=== PATIENT | female | born 1965 | race Caucasian/White ===

== ENCOUNTER 2019-03-13 12:04 | Outpatient (CLI) | payer MEDICARE, SELFPAY ==
[2019-03-13 12:39] LABS: Basophils # 0.1 10^3/uL (0.0-0.1); Eosinophils % 0.5 %; Hematocrit 43.3 % (37.0-47.0); Hemoglobin 14.2 g/dL (11.5-15.3); Lymphocytes # 1.8 10^3/uL (0.8-4.8); Lymphocytes % 30.9 %; Mean Corpuscular HGB Conc 32.8 g/dL (30.0-36.0); Mean Corpuscular Hemoglobin 29.8 pg (28.0-34.0); Mean Corpuscular Volume 90.8 fL (81-99); Monocytes # 0.5 10^3/uL (0.2-0.9); Monocytes % 9.1 %; Neutrophils # 3.4 10^3/uL (1.8-7.7); Neutrophils % 58.3 %; Nucleated Red Blood Cells % 0 %; Platelet Count 263 10^3/cmm (130-400); Red Blood Count 4.77 10^6/uL (4.1-5.3); Red Cell Distribution Width 13.9 % (12.1-15.1); White Blood Count 5.9 10^3/uL (4.0-10.0)
== END 2019-03-13 12:05 | disposition home or self-care (01) ==
LOC: ONCMED 12:08
PROVIDERS: Family Provider Nurse Practitioner Family; Visit Provider Internal Medicine Medical Oncology
DX: D64.9 Anemia, unspecified (principal)
CPT/HCPCS: 85025

== ENCOUNTER 2019-04-09 09:20 | Outpatient (CLI) | payer MEDICARE, SELFPAY ==
[2019-04-09 10:19] LABS: Basophils # 0.1 10^3/uL (0.0-0.1); Eosinophils % 0.3 %; Hematocrit 43.2 % (37.0-47.0); Hemoglobin 14.3 g/dL (11.5-15.3); Lymphocytes # 2.1 10^3/uL (0.8-4.8); Lymphocytes % 34.9 %; Mean Corpuscular HGB Conc 33.1 g/dL (30.0-36.0); Mean Corpuscular Hemoglobin 31.1 pg (28.0-34.0); Mean Corpuscular Volume 93.9 fL (81-99); Mean Platelet Volume 11.6 fL (7.4-10.4); Monocytes # 0.6 10^3/uL (0.2-0.9); Neutrophils # 3.3 10^3/uL (1.8-7.7); Neutrophils % 53.5 %; Nucleated Red Blood Cells % 0 %; Platelet Count 255 10^3/cmm (130-400); Red Cell Distribution Width 13.9 % (12.1-15.1); White Blood Count 6.1 10^3/uL (4.0-10.0)
== END 2019-04-09 09:21 | disposition home or self-care (01) ==
LOC: ONCMED 09:22
PROVIDERS: Family Provider Nurse Practitioner Family; Visit Provider Internal Medicine Medical Oncology
DX: I78.0 Hereditary hemorrhagic telangiectasia (principal); D50.9 Iron deficiency anemia, unspecified
CPT/HCPCS: 85025

== ENCOUNTER 2019-05-03 08:43 | Outpatient (CLI) | payer MEDICARE, SELFPAY ==
--- NOTE | 2019-05-03 08:51 | CT_ITS ---
WS: [id number] CTA OF THE CHEST WITH PULMONARY EMBOLISM PROTOCOL TECHNIQUE: High-resolution contrast enhanced CTA of the chest with coronal and sagittal reformatted i mages with pulmonary embolism protocol. MIP images are also reviewed. CLINICAL INFORMATION: RE EVALUATION OF PULMONARY NODULE COMPARISON: April 13, 2018 DLP: 578.[address] scans at [facility] use at least one of these dose optimization techniques: automat ed exposure control; mA and/or kV adjustment per patient size (includes targeted exams where dose is matched to clinical indication); or iterative reconstruction. FINDINGS: Prior endovascular coil embolization left lower lobe AVM. Stable partially calcified nodule left uppe r lobe measuring 6 mm likely represents a small vascular malformation with a feeding vessel. This is unchanged. Mild chronic emphysematous changes. No mediastinal or hilar lymphadenopathy. Small esophag eal hiatal hernia. Normal caliber thoracic aorta. Proximal main pulmonary arteries are normal. No evidence for pulmonary embolus. Stable embolization of the left lower lobe AVM. Left adrenal adenoma measuring 12 mm. Hypertrophic changes thoracic spine. CT/CT angio chest PE protcl [id number] IMPRESSION: 1. No evidence for pulmonary embolus. 2. Stable postoperative changes Embolization of left lower lobe AVM. 3. Stable 6 mm partially calcified suspected vascular malformation in the left upper lobe is unchanged. Small associated feeding vessel. 4. Mild chronic emphysematous changes. No acute pulmonary infiltrates. 5. Incidental small left adrenal adenoma visualized upper abdomen measuring
[2019-05-03] MEDS: iohexol 350 mg/mL 100 mL Btl IV (09:25)
[2019-05-03 09:48] LABS: Basophils # 0.1 10^3/uL (0.0-0.1); Basophils % 1.1 %; Eosinophils % 0.4 %; Hematocrit 41.4 % (37.0-47.0); Hemoglobin 13.7 g/dL (11.5-15.3); Lymphocytes # 1.6 10^3/uL (0.8-4.8); Lymphocytes % 30.3 %; Mean Corpuscular HGB Conc 33.1 g/dL (30.0-36.0); Mean Corpuscular Hemoglobin 29.9 pg (28.0-34.0); Mean Corpuscular Volume 90.4 fL (81-99); Mean Platelet Volume 11.7 fL (7.4-10.4); Monocytes # 0.6 10^3/uL (0.2-0.9); Monocytes % 11.2 %; Neutrophils # 3.1 10^3/uL (1.8-7.7); Neutrophils % 56.8 %; Nucleated Red Blood Cells % 0 %; Platelet Count 261 10^3/cmm (130-400); Red Blood Count 4.58 10^6/uL (4.1-5.3); Red Cell Distribution Width 13.9 % (12.1-15.1); White Blood Count 5.4 10^3/uL (4.0-10.0)
[2019-05-03 10:00] LABS: Alanine Aminotransferase 42 U/L (0-33); Albumin Level 3.9 g/dL (3.5-5.2); Alkaline Phosphatase 57 IU/L (35-105); Anion Gap 12.6 (5-19); Aspartate Amino Transferase 36 U/L (0-32); Blood Urea Nitrogen 9 mg/dL (6-20); Calcium 9.3 mg/dL (8.5-10.5); Carbon Dioxide 27 mmol/L (22-29); Chloride 103 mmol/L (98-107); Ferritin 94 ng/mL (15-150); Globulin 3.2 g/dL (1.3-4.6); Glomerular Filtration Rate 74.7 mL/min (90-130); Glucose 108 mg/dL (65-115); Iron 67 ug/dL (37-145); Osmolality Calculated 283 mOsm/kg (285-295); Percent Saturation 23.1 % (20-50); Potassium 4.6 mmol/L (3.5-5.1); Sodium 138 mmol/L (136-145); Total Bilirubin 0.4 mg/dL (0.15-1.2); Total Iron Binding Capacity 289 mcg/dl; Total Protein 7.1 g/dL (6.6-8.7); Unsaturated Iron Binding 222 ug/dL (112-347)
== END 2019-05-03 08:44 | disposition home or self-care (01) ==
LOC: ONCMED 08:47
PROVIDERS: Family Provider Nurse Practitioner Family; PCP Nurse Practitioner Family; Visit Provider Internal Medicine Medical Oncology
DX: R91.8 Other nonspecific abnormal finding of lung field (principal); D50.0 Iron deficiency anemia secondary to blood loss (chronic); I78.0 Hereditary hemorrhagic telangiectasia; D35.02 Benign neoplasm of left adrenal gland
CPT/HCPCS: 36415; 71275; 80053; 82728; 83540; 83550; 85025; Q9967

== ENCOUNTER 2019-05-07 13:22 | Outpatient (CLI) | payer MEDICARE, SELFPAY ==
[2019-05-07 15:26] LABS: Thyroid Stimulating Hormone 8.58 uIU/mL (0.27-4.20); Vitamin B12 243 pg/mL (232-1245)
[2019-05-07 15:49] LABS: Free T4 Free Thyroxine 1.18 ng/dL (0.82-1.77)
--- NOTE | 2019-05-11 13:25 | ONC FU_ITS ---
Dr. Leger Patient Follow-Up Note Patient: Arlene Quach Unit #: [id number]: 1965 Dicatated By: Gilberto Leger M.D.Date of Visit:May 07, 2019 Onc Med Follow-up/Prog Note Chief Complaint: Hereditary hemorrhagic telangiectasia. 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 Her HHT was suspected at a young age, as her mother and maternal grandmother had been diagnosed with it, and she had recurrent oral bleeding and epistaxis as a child and young adult. In September 2007 she was diagnosed with bilateral thalamic stroke. Her brain MRI at that time showed, in addition to the infarcts, a right temporal AVM measuring 1.[address] in January 2008 showed a moderate sized AVM in the lower lobe of the left lung. Pulmonary angiogram in February 2008 confirmed the left lower lobe AVM as well as a probable smaller AVM in the superior segment left lower lobe. She underwent a successful coiling and embolization procedure. Her evaluation at that time also showed findings suspicious for a PFO. In June 2008 show underwent resection of the right frontotemporal AVM, and in October 2008 she underwent gamma knife surgery to the left frontal AVM. 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 Her further clinical course has been complicated by recurrent epistaxis and oral bleeding as well as episodes of rectal bleeding. In 2015 she was given parenteral iron replacement after she had become significantly anemic, hemoglobin 8.2 g. As of May 2016 her hemoglobin was normal at 15.0 g. By September of this year she was mildly anemic again. As of 02/07/2018 her hemoglobin was down to 9.2 g with hypochromic/microcytic red cell indices. Her serum iron was low at 14 mcg/dL with transferrin saturation 3.5%. Ferritin was low at 5.0 ng/mL, consistent with iron deficiency. She was then given further parenteral iron replacement with infusions of Injectafer on 02/10/2018 and 02/17/2018. It seen her initially on 03/14/2018. Her CBC at that time showed normal hemoglobin at 13.8 g with white blood cell count 9300 and platelet count 220,000. Her serum iron studies show transferrin saturation normal at 28% with ferritin 210 ng/mL. She had further evaluation with CT pulmonary angiogram on 04/13/2018. There was no evidence of pulmonary embolism. A prior endovascular coiling of a left lower lobe AVM was noted. A partially calcified 6 mm nodule in the left upper lobe appeared stable. It was noted that it could represent an additional small AVM or a granuloma. Her other medical illnesses include GERD, degenerative arthritis, and anxiety/depression. She has a history of cervical and ovarian cancer. She has a history of smoking 1 pack of cigarettes daily for more than 25 years. INTERIM HISTORY: In June 2017 she had evidence of iron deficiency with her transferrin saturation decreased to 16% and serum ferritin had declined to 36.0 ng/mL. She was given parenteral iron replacement with one infusion of Injectafer, as she was not anemic at the time. She tolerated it well. She then continued on observation/expectant management for the HHT. Surveillance CT angiogram of the chest on 05/03/2019 showed no evidence of pulmonary embolism. There were stable postoperative changes associated with embolism of the left lower lobe AVM. A 6 mm partially calcified suspected vascular malformation in the left upper lobe also appeared stable. There were mild chronic emphysematous changes. An incidental small left adrenal adenoma measured 12 mm. She is seen for a followup visit. She says she has been feeling extremely tired and that she has been dragging, but she still does all of her normal activity. She has good appetite, but she has some early satiety. She has not had fever. She does have some hot flashes and sweating, mainly at night. She has some shortness of breath with activity. She also complains that she gets short of breath when she is lying in bed on her right side. She has some cough, but not very much. She has a little pain in the right side of the chest. She is still smoking 1/2 pack of cigarettes daily. She has no GI/ complaints other than she has noticed some rectal bleeding. She has no significant joint or bone pain. Recently she has been having headaches at least 2 or 3 times a week. She has no focal neurologic symptoms. Medications: Aspirin 1 Tablet (of 81 mg) Oral daily, DOK 1 Tablet (of 100 mg) Oral PRN, Prevacid 1 Tablet (of 30 mg) Capsule Delayed Release Oral daily, TraZODone HCl 0.5 Tablet (of 50 mg) Oral at bedtime Allergies: sulfa Review of Systems: Constitutional - She feels very tired, but she is doing normal acitivities. Appetite is good and weight is stable. No fever or chills. She is having hot flashes and sweating, mainly at night. ECOG score is 0, ENMT - No sinus congestion/drainage. No mouth sores. No sore throat or difficulty swallowing, Hematologic/Lymphatic - She bruises easily, Respiratory - She is still smoking, but she is down to 1/2 pack daily. She has some shortness of breath with activity. She has a intermittent cough productive of yellow sputum. She is having some left sided pleuritic pain. No hemoptysis, Cardiovascular - No angina pain. No palpitations, Gastrointestinal - No nausea or vomiting. She has heartburn that is well controlled with medication. No diarrhea or constipation. She has been passing blood with stools, Genitourinary (F) - No dysuria or hematuria. No urinary frequency. No urgency or incontinence, Musculoskeletal - No joint or bone pain, Integumentary - No skin complications, Neurologic - She has started having frequent headaches, 2-3 times a week. No dizziness. No numbness/paresthesias or other focal neurologic symptoms, Psychiatric - No anxiety or depression. She is sleeping OK with her medication. Vital Signs: Performed on May 07, 2019 13:49 Height - 69.50 in Weight - 161.6 lbs (HIGH) BSA - 1.90 sq.m BMI - 23.52 Temperature - 97.4 F (LOW) Pulse - 69 /min Respiration - 16 /min BP - 113/66 mm(hg) O2 Sat - 97 % Pain - 0 Fatigue - 8 Physical Examination: Constitutional - She looks good generally, Eyes - Sclerae nonicteric. Conjunctivae clear, ENMT - She has multiple telangiectatic lesions on her tongue. There are no other lesions noted in the oral cavity, Hematologic/Lymphatic - No cervical, clavicular, or axillary adenopathy, Respiratory - Lungs are clear with good air movement bilaterally, Cardiovascular - Heart rhythm is regular. There is no murmur, gallop, or rub noted, Abdomen - Soft. Liver and spleen are not enlarged. There is no abdominal mass or ascites noted and there is no inguinal adenopathy, Extremities - No edema. Dorsalis pedis pulses are palpable bilaterally, Neurologic - No focal neurologic deficits noted. Lab/Imaging: Test performed on May 07, 2019 14:30 T4, Free 1.18 ng/dL TSH 8.58 uIU/mL Vitamin B12 243 pg/mL Test performed on May 03, 2019 09:39 Ferritin 94 ng/mL Iron 67 mcg/dL Sodium 138 mmol/L Iron Binding Capacity (TIBC) 289 mcg/dl Potassium 4.6 mmol/L % Iron Saturation 23.1 % Chloride 103 mmol/L CO2 27 mmol/L UIBC 222 mcg/dL Anion Gap 12.6 BUN 9 mg/dL Creatinine 0.8 mg/dL Cr Clearance (Est) 90.7200 mL/min eGFR 74.7 mL/min Glucose 108 mg/dL Calcium 9.3 mg/dL Protein, Total 7.1 g/dL Albumin 3.9 g/dL Globulin 3.2 g/dL Bilirubin, Total 0.4 mg/dL ALT (SGPT) 42 U/L AST (SGOT) 36 U/L Alkaline Phosphatase 57 IU/L WBC 5.4 10 3/uL RBC 4.58 10 6/uL HGB 13.7 g/dL HCT 41.4 % MCV 90.4 fL MCH 29.9 pg MCHC 33.1 g/dL RDW 13.9 % Platelet Count 261 10 3/cmm MPV 11.7 fL Neutrophils 3.1 10 3/uL Lymphocytes 1.6 10 3/uL Monocytes 0.6 10 3/uL Eosinophils 0.0 10 3/uL Basophils 0.1 10 3/uL Neutrophil % 56.8 % Lymphocyte % 30.3 % Monocyte % 11.2 % Eosinophil % 0.4 % Basophils % 1.1 % Impression: 1. Patient with hereditary hemorrhagic telangiectasia (HTT1). She has associated epistaxis, oral bleeding, and rectal bleeding. 2. She also has associated iron deficiency anemia. She has required parenteral iron replacement, most recently in January 2018, but she has never required transfusion. 3. She suffered bilateral thalamic stroke in September 2007. 4. She underwent embolotherapy and a coiling procedure to a left lower lobe pulmonary AVM in February 2008. 5. She underwent resection of right frontotemporal cerebral AVM in June 2008 and she underwent gamma knife surgery to a left frontal cerebral AVM in October 2008. 6. She has suspected PFO. Her other medical illnesses include: 7. GERD. 8. Degenerative arthritis. 9. History of cervical and ovarian cancer. 10. Nicotine dependence (cigarettes). 11. Anxiety/depression. As of June 2018 her transferrin saturation and serum ferritin had decreased to iron deficiency range. She was given parenteral iron replacement with a single infusion of Injectafer, as she was not anemic at the time. She did have symptomatic improvement following the iron replacement. During follow-up she has continued to have some fatigue, but she is otherwise been stable clinically. Her surveillance CT angiogram of the chest shows stable appearance of the postoperative changes associated with embolization of the left lower lobe AVM. The 6 mm partially calcified left upper lobe suspected AVM also appeared stable. Her laboratory studies show normal hemoglobin/hematocrit levels with adequate transferrin saturation. She does have mildly elevated TSH level, consistent with hypothyroidism. Plan: She remains on observation/expectant management for the HHT. She will start thyroid replacement with levothyroxine 50 mcg daily. I will recheck a TSH level in 3 months. I will just plan to see her again in 6 months. Signed By: Gilberto Leger M.D. <<Signature on File>>
== END 2019-05-07 13:23 | disposition home or self-care (01) ==
LOC: ONCMED 13:22
PROVIDERS: Family Provider Nurse Practitioner Family; PCP Nurse Practitioner Family; Visit Provider Internal Medicine Medical Oncology
DX: I78.0 Hereditary hemorrhagic telangiectasia (principal); R53.83 Other fatigue; D50.9 Iron deficiency anemia, unspecified; E03.9 Hypothyroidism, unspecified; K21.9 Gastro-esophageal reflux disease without esophagitis; M19.90 Unspecified osteoarthritis, unspecified site; F41.8 Other specified anxiety disorders; F17.210 Nicotine dependence, cigarettes, uncomplicated; D35.02 Benign neoplasm of left adrenal gland; Z79.82 Long term (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 of aspirin; Z86.73 Personal history of transient ischemic attack (TIA), and cerebral infarction without residual deficits; Z85.41 Personal history of malignant neoplasm of cervix uteri; Z85.43 Personal history of malignant neoplasm of ovary
CPT/HCPCS: 82607; 84439; 84443; 99214

== ENCOUNTER 2019-07-09 09:50 | Outpatient (CLI) | payer MEDICARE, SELFPAY ==
[2019-07-09 10:26] LABS: Basophils # 0.1 10^3/uL (0.0-0.1); Basophils % 0.9 %; Eosinophils % 0.4 %; Hematocrit 41.6 % (37.0-47.0); Hemoglobin 13.5 g/dL (11.5-15.3); Lymphocytes # 2.1 10^3/uL (0.8-4.8); Lymphocytes % 26.7 %; Mean Corpuscular HGB Conc 32.5 g/dL (30.0-36.0); Mean Corpuscular Hemoglobin 29.3 pg (28.0-34.0); Mean Corpuscular Volume 90.4 fL (81-99); Mean Platelet Volume 11.8 fL (7.4-10.4); Monocytes # 0.7 10^3/uL (0.2-0.9); Monocytes % 8.3 %; Neutrophils % 63.4 %; Nucleated Red Blood Cells % 0 %; Platelet Count 284 10^3/cmm (130-400); Red Cell Distribution Width 13.8 % (12.1-15.1); White Blood Count 7.8 10^3/uL (4.0-10.0)
[2019-07-09 10:52] LABS: Alanine Aminotransferase 29 U/L (0-33); Albumin Level 4.2 g/dL (3.5-5.2); Alkaline Phosphatase 72 IU/L (35-105); Anion Gap 15.2 (5-19); Aspartate Amino Transferase 27 U/L (0-32); Blood Urea Nitrogen 8 mg/dL (6-20); Calcium 9.6 mg/dL (8.5-10.5); Carbon Dioxide 25 mmol/L (22-29); Chloride 104 mmol/L (98-107); Globulin 3.1 g/dL (1.3-4.6); Glomerular Filtration Rate 65.2 mL/min (90-130); Glucose 158 mg/dL (65-115); Osmolality Calculated 289 mOsm/kg (285-295); Potassium 4.2 mmol/L (3.5-5.1); Sodium 140 mmol/L (136-145); Thyroid Stimulating Hormone 1.47 uIU/mL (0.27-4.20); Total Bilirubin 0.2 mg/dL (0.15-1.2); Total Protein 7.3 g/dL (6.6-8.7)
[2019-07-09 12:18] LABS: Ferritin 22 ng/mL (15-150); Iron 36 ug/dL (37-145); Percent Saturation 10.4 % (20-50); Total Iron Binding Capacity 345 mcg/dl; Unsaturated Iron Binding 309 ug/dL (112-347)
--- NOTE | 2019-07-09 16:04 | ONC FU_ITS ---
[facility] Patient Note Patient: Arlene Quach Unit #: [id number]: 1965 Dictated By: Lisa MeadeDate of Visit: July 09, 2019 Onc MED Follow-Up/Prog Note Chief Complaint: Hereditary hemorrhagic telangiectasia. 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 Her HHT was suspected at a young age, as her mother and maternal grandmother had been diagnosed with it, and she had recurrent oral bleeding and epistaxis as a child and young adult. In September 2007 she was diagnosed with bilateral thalamic stroke. Her brain MRI at that time showed, in addition to the infarcts, a right temporal AVM measuring 1.[address] in January 2008 showed a moderate sized AVM in the lower lobe of the left lung. Pulmonary angiogram in February 2008 confirmed the left lower lobe AVM as well as a probable smaller AVM in the superior segment left lower lobe. She underwent a successful coiling and embolization procedure. Her evaluation at that time also showed findings suspicious for a PFO. In June 2008 show underwent resection of the right frontotemporal AVM, and in October 2008 she underwent gamma knife surgery to the left frontal AVM. 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 Her further clinical course has been complicated by recurrent epistaxis and oral bleeding as well as episodes of rectal bleeding. In 2015 she was given parenteral iron replacement after she had become significantly anemic, hemoglobin 8.2 g. As of May 2016 her hemoglobin was normal at 15.0 g. By September of this year she was mildly anemic again. As of 02/07/2018 her hemoglobin was down to 9.2 g with hypochromic/microcytic red cell indices. Her serum iron was low at 14 mcg/dL with transferrin saturation 3.5%. Ferritin was low at 5.0 ng/mL, consistent with iron deficiency. She was then given further parenteral iron replacement with infusions of Injectafer on 02/10/2018 and 02/17/2018. Dr Leger had seen her initially on 03/14/2018. Her CBC at that time showed normal hemoglobin at 13.8 g with white blood cell count 9300 and platelet count 220,000. Her serum iron studies show transferrin saturation normal at 28% with ferritin 210 ng/mL. She had further evaluation with CT pulmonary angiogram on 04/13/2018. There was no evidence of pulmonary embolism. A prior endovascular coiling of a left lower lobe AVM was noted. A partially calcified 6 mm nodule in the left upper lobe appeared stable. It was noted that it could represent an additional small AVM or a granuloma. Her other medical illnesses include GERD, degenerative arthritis, and anxiety/depression. She has a history of cervical and ovarian cancer. She has a history of smoking 1 pack of cigarettes daily for more than 25 years. INTERIM HISTORY: In June 2017 she had evidence of iron deficiency with her transferrin saturation decreased to 16% and serum ferritin had declined to 36.0 ng/mL. She was given parenteral iron replacement with one infusion of Injectafer, as she was not anemic at the time. She tolerated it well. She then continued on observation/expectant management for the HHT. Surveillance CT angiogram of the chest on 05/03/2019 showed no evidence of pulmonary embolism. There were stable postoperative changes associated with embolism of the left lower lobe AVM. A 6 mm partially calcified suspected vascular malformation in the left upper lobe also appeared stable. There were mild chronic emphysematous changes. An incidental small left adrenal adenoma measured 12 mm. She was seen for a followup visit in April 2019. She had been feeling extremely tired and that she had been dragging. She was also having cold intolerance, She was found to be hypothyroid with a TSH of 8.58, free T4 was 1.18. Dr. Leger did start her on levothyroxine 50 mics daily. She has not had any follow-up labs since starting that. At her visit today she states she is been on levothyroxine for about a month. She states that her energy is better. She is now having more hot flashes than the cold intolerance. She states the hot messages are not intolerable she is unsure if that is due to the thyroid medication, iron deficiency or menopause. She has had seasonal allergies which she states she cannot get any relief from the ovvc-zhk-zeetpuk antihistamine such as Jeannette, Zyrtec or Claritin. States she has clear nasal drainage frequently and is making her sneeze and cough quite a bit. She is had some runny eyes but has allergy drops from her eye doctor and these are working well. She denies any new shortness of breath orthopnea. She states overall she does feel some better but is feeling that she could possibly be iron deficient once again. She is not anemic with her hemoglobin is 13.5. She denies any fever or chills. She is had no mouth sores sore throat or difficulty swallowing. She states her bowels are normal. She is had no urinary changes. She denies any bleeding or excessive bruising. Her ECOG is 0. Past Medical History: Anxiety/depression Cervical cancer Degenerative arthritis Gastroesophageal reflux disease Hereditary hemorrhagic telangiectasia (HHT1) Iron deficiency anemia Ovarian cancer Pulmonary and cerebral AVMs Suspected PFO Hypothyroidism in 2019 Bilateral thalamic and midbrain stroke in 2007 Past Surgical History: Corrective right eye surgery Open surgical procedures on both knees Left total hip arthroplasty in 2015 EGD and colonoscopy in 2012 Gamma knife surgery to left frontal AVM in 2008 Right frontotemporal AVM resection in 2008 Embolotherapy and coiling procedure to left lower lobe pulmonary AVM in 2008 Left oophorectomy for ovarian cancer in 2005 Excision of cervical cancer in 1985 Allergies: sulfa Medications: Aspirin 1 Tablet (of 81 mg) Oral daily DOK 1 Tablet (of 100 mg) Oral PRN Levothyroxine Sodium 1 Tablet (of 25 mcg) Oral daily Prevacid 1 Tablet (of 30 mg) Capsule Delayed Release Oral daily TraZODone HCl 0.5 Tablet (of 50 mg) Oral at bedtime Family History: Ms. Quach's mother at age 56. Ms. Quach's father at age 61. Ms. Quach has 2 brothers: 2 . She has 1 sister who is . Father of heart attack at age 61. Her mother at age 56 with complications of rheumatic heart disease and congestive heart failure. Her mother and her maternal grandmother reportedly had HHT, and one brother has HTT. One brother of overdose at age 48. Another brother at age 60, cause unknown to the patient. A sister at age 50 as a result of choking on food. She had multiple medical problems including diabetes, coronary artery disease, and strokes. Her only child as his son, currently age 25. She suspects he may have H TT, though his genetic testing apparently has been negative. Social History: Ms. Quach is and she is a disabled. She is a daily smoker who has smoked 1.0 pack/day for 25 years. She is an active drinker.She consumes 2 drinks/day. She has a history of smoking 1 pack of cigarettes daily for more than 25 years. She has alcohol use estimated once or twice a week. She has never been a heavy drinker. She denies use of illicit drugs. Review Of Symptoms: Constitutional Denies fevers, chills, excessive fatigue or weight loss. She states she has been having some intermittent hot flashes since starting the levothyroxine. She states she is unsure with some medication, her iron levels or possible menopause. She states she is not to the point where they are unbearable yet. Allergic/Immunologic She states she is having seasonal allergies to the point where there are making me crazy . She states that the Claritin, Zyrtec and Jeannette hyrf-inr-tfeyxnt are not working. Benadryl makes her too sleepy. Eyes Denies significant visual changes. No diplopia. No amaurosis. ENMT Denies changes in hearing, sore throat, mouth sores, difficulty or changes in swallowing ability, and/or sinus drainage. Hematologic/Lymphatic Denies easy bruising or bleeding. The patient denies any tender or palpable lymph nodes. Respiratory Denies dyspnea on exertion, chest pain, cough or hemoptysis. Denies orthopnea. Cardiovascular Denies anginal chest pain, palpitations or orthopnea. Gastrointestinal Denies nausea, vomiting, diarrhea, GI bleeding, or constipation. Denies change in bowel habits and/or stool color, no heartburn or early satiety. Genitourinary (F) No hematuria, hesitancy, incontinence, vaginal bleeding, discharge or other problems with urination. Musculoskeletal Denies joint pain, swelling or redness. No decreased range of motion. Integumentary Denies chronic rashes, inflammation, ulcerations or skin changes. Neurologic Denies headache, blurred vision, and no areas of focal weakness or numbness. Normal gait. No sensory problems. Psychiatric Denies insomnia, depression, dharmesh or mood swings. Vital Signs: Performed on July 09, 2019 11:31 Height - 69.50 in Weight - 160.8 lbs (LOW) BSA - 1.89 sq.m BMI - 23.41 Temperature - 97.3 F (LOW) Pulse - 81 /min Respiration - 17 /min BP - 125/81 mm(hg) O2 Sat - 95 % (LOW) Pain - 0,0 - Fully active, able to carry on all predisease activities without restrictions. (ECOG) Physical Examination: Constitutional Alert, oriented, no acute distress. Skin pink, warm and dry. Head Normocephalic; atraumatic. Eyes Conjunctivae and sclerae are clear and without icterus. Pupils are reactive and equal. Neck Supple without masses or thyromegaly. No jugular venous distension. Hematologic/Lymphatic No petechiae or purpura. Back/Spine Non-tender to palpation. Extremities No visible deformities, no cyanosis, clubbing or edema. Musculoskeletal No tenderness or swelling, normal range of motion without obvious weakness. Integumentary No rashes or lesions. Neurologic No sensory or motor deficits, normal cerebellar function, normal gait. Psychiatric Alert and oriented times three. Coherent speech. Verbalizes understanding of our discussions today. Laboratory:Test performed on July 09, 2019 10:10 Ferritin 22 ng/mL Iron 36 mcg/dL Sodium 140 mmol/L TSH 1.47 uIU/mL Iron Binding Capacity (TIBC) 345 mcg/dl Potassium 4.2 mmol/L % Iron Saturation 10.4 % Chloride 104 mmol/L CO2 25 mmol/L UIBC 309 mcg/dL Anion Gap 15.2 BUN 8 mg/dL Creatinine 0.9 mg/dL Cr Clearance (Est) 82.2800 mL/min eGFR 65.2 mL/min Glucose 158 mg/dL Calcium 9.6 mg/dL Protein, Total 7.3 g/dL Albumin 4.2 g/dL Globulin 3.1 g/dL Bilirubin, Total 0.2 mg/dL ALT (SGPT) 29 U/L AST (SGOT) 27 U/L Alkaline Phosphatase 72 IU/L WBC 7.8 10 3/uL RBC 4.60 10 6/uL HGB 13.5 g/dL HCT 41.6 % MCV 90.4 fL MCH 29.3 pg MCHC 32.5 g/dL RDW 13.8 % Platelet Count 284 10 3/cmm MPV 11.8 fL Neutrophils 5.0 10 3/uL Lymphocytes 2.1 10 3/uL Monocytes 0.7 10 3/uL Eosinophils 0.0 10 3/uL Basophils 0.1 10 3/uL Neutrophil % 63.4 % Lymphocyte % 26.7 % Monocyte % 8.3 % Eosinophil % 0.4 % Basophils % 0.9 % Test performed on May 07, 2019 14:30 T4, Free 1.18 ng/dL Vitamin B12 243 pg/mL Impression: 1. Patient with hereditary hemorrhagic telangiectasia (HTT1). She has associated epistaxis, oral bleeding, and rectal bleeding. 2. She also has associated iron deficiency anemia. She has required parenteral iron replacement, most recently in January 2018, but she has never required transfusion. 3. She suffered bilateral thalamic stroke in September 2007. 4. She underwent embolotherapy and a coiling procedure to a left lower lobe pulmonary AVM in February 2008. 5. She underwent resection of right frontotemporal cerebral AVM in June 2008 and she underwent gamma knife surgery to a left frontal cerebral AVM in October 2008. 6. She has suspected PFO. Her other medical illnesses include: 7. GERD. 8. Degenerative arthritis. 9. History of cervical and ovarian cancer. 10. Nicotine dependence (cigarettes). 11. Anxiety/depression. As of June 2018 her transferrin saturation and serum ferritin had decreased to iron deficiency range. She was given parenteral iron replacement with a single infusion of Injectafer, as she was not anemic at the time. She did have symptomatic improvement following the iron replacement. Ms. Hernandez was instructed to start levothyroxine after her visit in April 2019 as she was found to be hypothyroid. She has tolerated that well but has had an increase in hot flashes. She states otherwise she is feeling much better overall. She states however she does feel she could be iron deficient again. During follow-up she has continued to have some fatigue, but she is otherwise been stable clinically. Her surveillance CT angiogram of the chest shows stable appearance of the postoperative changes associated with embolization of the left lower lobe AVM. The 6 mm partially calcified left upper lobe suspected AVM also appeared stable. Her laboratory studies show normal hemoglobin/hematocrit levels with adequate transferrin saturation. She does have mildly elevated TSH level, consistent with hypothyroidism. Plan: 1. Continue observation/expectant management for the HHT. 2. Continue levothyroxine 50 mcg daily. I did tell her that over the next 2 weeks if her hot flashes are not improving that we could try decreasing the levothyroxine to 25 mics daily as she is only been on it month and her TSH dropped from 8.58-1.47 today. Normal TSH range is 0.27-4.20. 3. Iron studies were not ordered with her initial blood draw but will be added today. We will call her with those results. 4. We will call in Singulair 10 mg for seasonal allergies and let her try this. This was sent to [facility]. 5. Today's labs were reviewed in detail and discussed with Ms. Quach and a copy was given to her. WBC 7.8, hemoglobin 13.5, platelets are 84,000 ANC is 5000 potassium 4.2 creatinine 0.9 LFTs are normal. That studies were added and resulted as an iron saturation of 10.4, ferritin was 22 and iron level was 36. 6. I have asked for a PA for Injectafer possibly 2 doses. I would give her 1 dose and then possibly wait for 4 weeks as she is not anemic and recheck her again if she is still iron deficient she will need another dose of Injectafer. We will consult with Dr. Leger regarding her iron levels and the plan of administering Injectafer. She will of course need a prior authorization before we can administer the Injectafer. 7. We will plan for follow-up in 3 months with CBC CMP, TSH, free T4 and iron studies. 8. Ms. Quach was instructed to contact us in the interim should questions or problems arise. Signed By: Lisa Meade-, AOP Gilberto Leger MD <<Signature on File>>
== END 2019-07-09 09:51 | disposition home or self-care (01) ==
PROVIDERS: PCP Nurse Practitioner Family; Visit Provider Nurse Practitioner
DX: I78.0 Hereditary hemorrhagic telangiectasia (principal); D50.0 Iron deficiency anemia secondary to blood loss (chronic); R94.6 Abnormal results of thyroid function studies; K21.9 Gastro-esophageal reflux disease without esophagitis; M19.90 Unspecified osteoarthritis, unspecified site; F17.210 Nicotine dependence, cigarettes, uncomplicated; F41.8 Other specified anxiety disorders; J30.2 Other seasonal allergic rhinitis; Z79.899 Other long term (current) drug therapy; Z85.41 Personal history of malignant neoplasm of cervix uteri; Z85.43 Personal history of malignant neoplasm of ovary; Z86.73 Personal history of transient ischemic attack (TIA), and cerebral infarction without residual deficits
CPT/HCPCS: 80053; 82728; 83540; 83550; 84443; 85025; 99214

== ENCOUNTER 2019-07-18 14:48 | Outpatient (CLI) | payer MEDICARE, SELFPAY ==
[2019-07-18] MEDS: sodium chloride 0.9% (100 ml) 100 ML 75 ML (15:21)
[2019-07-18] MEDS: ferric carboxy (IVPB) 750 MG in sodium chloride 0.9% (100 ml) 100 ML 460 MG IV (15:21)
== END 2019-07-18 14:49 | disposition home or self-care (01) ==
PROVIDERS: PCP Nurse Practitioner Family; Visit Provider Internal Medicine Medical Oncology
DX: D50.0 Iron deficiency anemia secondary to blood loss (chronic) (principal); E03.9 Hypothyroidism, unspecified; I78.0 Hereditary hemorrhagic telangiectasia
CPT/HCPCS: 96365; J1439

== ENCOUNTER 2019-07-21 10:00 | Emergency (ER) | payer MEDICARE, SELFPAY ==
[2019-07-21 10:05] VITALS: BMI 22.8
[2019-07-21 10:07] VITALS: BP 135/74; PULSE 97; RESP 18; O2SAT 97
[2019-07-21 10:08] VITALS: BP 135/74; PULSE 94; RESP 16; TEMP 37.4; O2SAT 96
--- NOTE | 2019-07-21 10:09 | W.ED.GENADLT ---
HPI - General Adult General: Chief complaint: General Medical Stated complaint: cramping/chills Time Seen by Provider: 07/21/19 10:04 History of Present Illness: HPI narrative: Patient is a 54-year-old female who comes to the ED with muscle aches and migraine-like headache. Patient states that she had an iron IV infusion performed on Tuesday. Yesterday she started feeling achy and developing a headache. She describes the headache all throughout the head and rates it a 10 out of 10. She endorses some photophobia and mild nausea. She is also having some muscle aches and cramps that are predominantly in her right and left lower extremities. Patient says she does have the chills but denies any fever, cough, shortness of breath, chest pain, upper respiratory symptoms, abdominal pain, bladder or bowel symptoms. Associated symptoms: Reports headache(s) and nausea; Deny chest pain, dyspnea, rash, palpitations or vomiting Review of Systems Const: Reports: chills; Denies: fever(s) or fatigue Eyes: Reports: photophobia; Denies: change in vision or eye discomfort ENMT: Denies: throat pain, odynophagia, nasal discharge or nasal congestion Card: Denies: chest pain, palpitations, edema, swelling of feet/ankles, dyspnea on exertion or orthopnea Resp: Denies: dyspnea, productive cough or non-productive cough GI: Reports: nausea; Denies: abdominal pain, vomiting, diarrhea, constipation or hematochezia : Denies: flank pain, dysuria or hematuria Musc: Reports: muscle cramps (muscle cramps and aches in lower extremities); Denies: neck pain, back pain or extremity swelling Skin/Breast: Denies: rash or new lesions Neuro: Reports: headache(s); Denies: numbness in extremities or weakness in extremities PFS ED PFSH: Social History Smoking and tobacco status: current every day smoker Physical Exam Const: COMMON NORMALS: no acute distress, patient oriented x3 and alert GENERAL APPEARANCE: cooperative, comfortable and well hydrated HENMT: COMMON NORMALS: normocephalic HEAD & SCALP: normocephalic MOUTH: Normal oral and palatal mucosa present THROAT: posterior oropharynx normal and uvula midline Eye: COMMON NORMALS: Equal, round and reactive pupils present, EOMs intact bilaterally and conjunctivae normal CONJUNCTIVA: Yes conjunctivae normal PUPIL: Yes Equal, round and reactive pupils present Neck/C-Spine: COMMON NORMALS: supple GENERAL: Yes normal visual inspection Resp: COMMON NORMALS: normal respiratory effort, No retractions, No use of accessory muscles and clear to auscultation bilaterally AUSCULTATION: clear to auscultation bilaterally Cardio: COMMON NORMALS: regular rate, regular rhythm, S1 normal heart sound present, S2 normal heart sound present, No gallops present (Cardio), No clicks present (Cardio), No murmurs present (Cardio) and Peripheral pulses 2+ throughout RATE: regular rate RHYTHM: regular rhythm HEART SOUNDS: S1 normal heart sound present and S2 normal heart sound present PERIPHERAL PULSES: Peripheral pulses 2+ throughout GI: COMMON NORMALS: Normal to inspection, nondistended, normoactive bowel sounds present, Soft to palpation, non-tender and no masses PALPATION: Yes Soft to palpation : COMMON NORMALS: Yes no CVA tenderness BLADDER/KIDNEY EXAM: Yes no CVA tenderness Back/Pelvis: COMMON NORMALS: no CVA tenderness Extremity: COMMON NORMALS: normal to inspection and no pedal edema Neuro: COMMON NORMALS: patient oriented x3 and moves all extremities SENSORIUM/ORIENTATION: Yes alert Skin: COMMON NORMALS: no rashes or lesions noted GENERAL SKIN EXAM: no rashes or lesions noted and dry skin Course Reevaluation(s): Reevaluation #1: Patient feels a lot better after IV fluids and migraine cocktail. She is ready to go home and rest. Vital Signs: Vital signs: Vital Signs Temperature 97.9 F 07/21/19 12:06 Pulse Rate 88 07/21/19 12:06 Respiratory Rate 16 07/21/19 12:06 Blood Pressure 128/78 07/21/19 12:06 Pulse Oximetry 95 07/21/19 12:06 MDM - General Adult MDM Narrative: Medical decision making narrative: Patient is a 54-year-old female comes into the ED with headache and muscle cramps. Patient received an iron IV infusion a couple days ago. Patient states her main complaint is her 10 out of 10 headache. Headache and muscle cramps is a known side effect of iron transfusions. Patient was given IV fluids and migraine cocktail. Her symptoms greatly improved and she says she is ready to go home and rest. I told patient to set up an appointment with her PCP within the next 7 to 10 days. Patient was told to return to ED if symptoms worsen. Patient understood and agreed with plan. Discharge Plan Discharge Patient Disposition: Home, Self-Care Clinical Impression: Head ache Qualifiers: Headache type: unspecified Headache chronicity pattern: acute headache Intractability: not intractable Qualified Code(s): R51 - Headache Condition: Stable Discharge Orders: Discharge Order (Routine); Ordered 07/21/19 Ordered By: Lazaro Gonzalez Referrals: RACHELLE DICKERSON FNP [Primary Care Provider] - Discharge Diet: Regular Discharge Activity: Resume usual activity Patient Instructions: Acute Headache (ED) Activity Restrictions/Additional Instructions: Go home and rest. Follow-up with your PCP at next scheduled appointment. Return to ED for reevaluation if symptoms continue or worsen after 3 days. Drink plenty of fluids and stay hydrated. Take Tylenol or ibuprofen for pain. 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
--- NOTE | 2019-07-21 10:11 | PC.NURSE ---
COMPLAINING OF SEVERE HEADACE, ALL OVER HEAD AND GENERALIZED BODY CRAMPS
[2019-07-21] MEDS: sodium chloride 0.9% 1,000 ML 999 ML IV (11:09)
[2019-07-21] MEDS: diphenhydrAMINE 50 mg/mL SDV 1mL 25 MG IVP (11:14)
[2019-07-21] MEDS: dexamethasone 10 mg/mL INJ IVP (11:15)
[2019-07-21] MEDS: metoclopramide 5 mg/mL SDV 2 mL 10 MG IVP (11:17)
[2019-07-21] MEDS: ketorolac 30 mg/mL INJ IVP (11:18)
[2019-07-21 11:53] VITALS: BP 121/72; PULSE 76; RESP 16; O2SAT 95
[2019-07-21 12:06] VITALS: BP 128/78; PULSE 88; RESP 16; TEMP 36.6; O2SAT 95
== END 2019-07-21 12:09 | disposition home or self-care (01) ==
PROVIDERS: Emergency Provider Physician Assistant; PCP Nurse Practitioner Family
DX: R51 Headache (principal); F17.210 Nicotine dependence, cigarettes, uncomplicated
CPT/HCPCS: 12345; 96361; 96374; 96375; 99283; J1100; J1200; J1885; J2765; J7030

== ENCOUNTER 2019-07-29 16:48 | Outpatient (CLI) | payer MEDICARE, SELFPAY ==
--- NOTE | 2019-07-29 16:54 | XRR_ITS ---
PROCEDURE INFORMATION: Exam: XR Right Ribs with PA Chest, 3 Views Exam date and time: 07/29/2019 4:55 PM Age: 54 years old Clinical indication: Other: RT rib pain; Additional info: Right lower lateral rib pain TECHNIQUE: Imaging protocol: XR Right ribs 3 views with PA chest. COMPARISON: CR Chest 2 views* [id number] 10/20/2017 5:31 PM FINDINGS: Lungs: The lungs are clear. Pleural space: Unremarkable. No pleural effusion. No pneumothorax. Heart/Mediastinum: Unremarkable. No cardiomegaly. Vasculature: Vascular coils in the lower left chest. Bones/joints: Mild scoliosis. Bones are otherwise intact. XR/XR ribs RT mn 3V w CXR1V [id number] IMPRESSION: No acute finding.
== END 2019-07-29 16:49 | disposition home or self-care (01) ==
LOC: RAD 16:50
PROVIDERS: PCP Nurse Practitioner Family; Visit Provider Nurse Practitioner Family
DX: R07.81 Pleurodynia (principal)
CPT/HCPCS: 71101

== ENCOUNTER 2019-08-12 11:03 | Emergency (ER) | payer MEDICARE, SELFPAY ==
[2019-08-12 11:07] VITALS: BP 120/70; PULSE 65; RESP 18; TEMP 36.4; O2SAT 96; BMI 23.6
--- NOTE | 2019-08-12 11:10 | ED_ITS ---
HPI - Skin/Abscess/Foreign Bdy General: Chief complaint: Skin/Abscess/Foreign Body Stated complaint: SORE ON LEFT BREAST Time Seen by Provider: 08/12/19 11:10 History of Present Illness: HPI narrative: Patient noticed redness and itching to the left inferior breast area on Tuesday. Since that time patient has noted some areas of ecchymosis. Patient denies any fever or chills but does report itching. Patient appears well. Patient appears in no acute distress. MD complaint: insect bite/sting Review of Systems General: Reports: 10 or more systems reviewed and unremarkable except in HPI and below Skin/Breast: Reports: changing lesions PFS ED PFSH: Social History Smoking and tobacco status: current every day smoker Physical Exam Const: COMMON NORMALS: no acute distress and patient oriented x3 GENERAL APPEARANCE: cooperative HENMT: COMMON NORMALS: normocephalic and Normal external nose present HEAD & SCALP: normal to inspection and normocephalic NOSE: Normal external nose present MOUTH: Normal oral and palatal mucosa present THROAT: posterior oropharynx normal Eye: GENERAL EYE: appearance normal, both eyes and all related structures Neck/C-Spine: COMMON NORMALS: full ROM Lymph: LYMPHATIC: no lymphadenopathy noted Chest: COMMONS NORMALS: normal inspection of the chest Resp: COMMON NORMALS: normal respiratory effort EFFORT & INSPECTION: Yes able to speak in complete sentences Cardio: COMMON NORMALS: regular rate and regular rhythm RATE: regular rate RHYTHM: regular rhythm GI: COMMON NORMALS: non-tender Back/Pelvis: COMMON NORMALS: thoracic and lumbar spine normal to inspection Extremity: COMMON NORMALS: normal to inspection Neuro: COMMON NORMALS: patient oriented x3 and moves all extremities Psych: COMMON NORMALS: mental status grossly normal and cooperative Skin: NARRATIVE SKIN EXAM: 1 cm area of ecchymosis to the left inferior breast region. Patient has a area of redness and a concentric ring around the initial lesion approximately 4 cm in diameter. No fluctuance or induration is noted to the area. Course Vital Signs: Vital signs: Vital Signs Temperature 97.6 F 08/12/19 11:07 Pulse Rate 68 08/12/19 11:22 Respiratory Rate 16 08/12/19 11:22 Blood Pressure 102/72 08/12/19 11:22 Pulse Oximetry 95 08/12/19 11:22 MDM - Skin/Abscess/Foreign Bdy MDM Narrative: Medical decision making narrative: Patient comes in today with complaints of a area of itching and tenderness to the left breast. On exam we noted the area with a centralized lesion surrounded by ecchymosis and then by an area of redness. Respirations are even lungs are clear to auscultation. Vital signs are normal. Differential diagnosis includes but not limited to insect bite, injury, cellulitis, or abscess. Reviewed exam with patient with recomm endations for treatment and follow-up. Suspect a insect bite with some localized reaction. Will cover with doxycycline due to possible tick bite. Discharge Plan Discharge Patient Disposition: Home, Self-Care Clinical Impression: Insect bites Qualifiers: Encounter type: initial encounter Site of insect bite: breast Laterality: left Qualified Code(s): S20.162A - Insect bite (nonvenomous) of breast, left breast, initial encounter Condition: Stable Prescriptions: New doxycycline hyclate 100 mg capsule 100 mg PO BID 7 Days Qty: 14 RF: 0 No Action trazodone 50 mg tablet 50 mg PO DAILY RF: 0 lansoprazole 30 mg capsule,delayed release(DR/EC) 30 mg PO DAILY RF: 0 montelukast [Singulair] 10 mg tablet 10 mg PO DAILY RF: 0 levothyroxine 50 mcg capsule 50 mcg PO DAILY RF: 0 aspirin [Adult Aspirin Regimen] 81 mg tablet,delayed release (DR/EC) 81 mg PO DAILY RF: 0 Discharge Orders: Discharge Order (Routine); Ordered 08/12/19 Ordered By: Audie Khan Referrals: RACHELLE DICKERSON, VAT SKIMMER [Primary Care Provider] - Discharge Diet: Usual diet Discharge Activity: Increase activity as tolerated Patient Instructions: Brown Recluse Spider Bite (ED) Activity Restrictions/Additional Instructions: Avoid manipulation of the insect bite. Use hydrocortisone cream as needed for itching or discomfort. Use Tylenol or ibuprofen for pain. Drink plenty of water with antibiotic. Avoid the midday sun with the antibiotic. Follow-up with primary care in 1 week for recheck. Return to the ER for high fever or worsening symptoms. Coding Level of Care Code ED [employer] for Irma Montanez
[2019-08-12 11:22] VITALS: BP 102/72; PULSE 68; RESP 16; O2SAT 95
[2019-08-12 12:12] VITALS: BP 112/74; PULSE 57; RESP 16; O2SAT 97
== END 2019-08-12 12:14 | disposition home or self-care (01) ==
PROVIDERS: Emergency Provider Nurse Practitioner Family; PCP Nurse Practitioner Family
DX: S20.162A Insect bite (nonvenomous) of breast, left breast, initial encounter (principal); W57.XXXA Bitten or stung by nonvenomous insect and other nonvenomous arthropods, initial encounter; Z79.82 Long term (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 of aspirin; F17.210 Nicotine dependence, cigarettes, uncomplicated
CPT/HCPCS: 12345; 99283

== ENCOUNTER 2019-08-20 09:15 | Outpatient (CLI) | payer MEDICARE, SELFPAY ==
[2019-08-20 10:24] LABS: Ferritin 218 ng/mL (15-150); Iron 64 ug/dL (37-145); Percent Saturation 24.7 % (20-50); Thyroid Stimulating Hormone 1.68 uIU/mL (0.27-4.20); Total Iron Binding Capacity 259 mcg/dl; Unsaturated Iron Binding 195 ug/dL (112-347)
--- NOTE | 2019-08-23 09:12 | ONC FU_ITS ---
[facility] Patient Note Patient: Arlene Quach Unit #: [id number]: 1965 Dictated By: Lisa MeadeDate of Visit: Aug 20, 2019 Onc MED Follow-Up/Prog Note Chief Complaint: Hereditary hemorrhagic telangiectasia. 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 Her HHT was suspected at a young age, as her mother and maternal grandmother had been diagnosed with it, and she had recurrent oral bleeding and epistaxis as a child and young adult. In September 2007 she was diagnosed with bilateral thalamic stroke. Her brain MRI at that time showed, in addition to the infarcts, a right temporal AVM measuring 1.[address] in January 2008 showed a moderate sized AVM in the lower lobe of the left lung. Pulmonary angiogram in February 2008 confirmed the left lower lobe AVM as well as a probable smaller AVM in the superior segment left lower lobe. She underwent a successful coiling and embolization procedure. Her evaluation at that time also showed findings suspicious for a PFO. In June 2008 show underwent resection of the right frontotemporal AVM, and in October 2008 she underwent gamma knife surgery to the left frontal AVM. 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 Her further clinical course has been complicated by recurrent epistaxis and oral bleeding as well as episodes of rectal bleeding. In 2015 she was given parenteral iron replacement after she had become significantly anemic, hemoglobin 8.2 g. As of May 2016 her hemoglobin was normal at 15.0 g. By September of this year she was mildly anemic again. As of 02/07/2018 her hemoglobin was down to 9.2 g with hypochromic/microcytic red cell indices. Her serum iron was low at 14 mcg/dL with transferrin saturation 3.5%. Ferritin was low at 5.0 ng/mL, consistent with iron deficiency. She was then given further parenteral iron replacement with infusions of Injectafer on 02/10/2018 and 02/17/2018. Dr Leger had seen her initially on 03/14/2018. Her CBC at that time showed normal hemoglobin at 13.8 g with white blood cell count 9300 and platelet count 220,000. Her serum iron studies show transferrin saturation normal at 28% with ferritin 210 ng/mL. She had further evaluation with CT pulmonary angiogram on 04/13/2018. There was no evidence of pulmonary embolism. A prior endovascular coiling of a left lower lobe AVM was noted. A partially calcified 6 mm nodule in the left upper lobe appeared stable. It was noted that it could represent an additional small AVM or a granuloma. Her other medical illnesses include GERD, degenerative arthritis, and anxiety/depression. She has a history of cervical and ovarian cancer. She has a history of smoking 1 pack of cigarettes daily for more than 25 years. INTERIM HISTORY: In June 2017 she had evidence of iron deficiency with her transferrin saturation decreased to 16% and serum ferritin had declined to 36.0 ng/mL. She was given parenteral iron replacement with one infusion of Injectafer, as she was not anemic at the time. She tolerated it well. She then continued on observation/expectant management for the HHT. Surveillance CT angiogram of the chest on 05/03/2019 showed no evidence of pulmonary embolism. There were stable postoperative changes associated with embolism of the left lower lobe AVM. A 6 mm partially calcified suspected vascular malformation in the left upper lobe also appeared stable. There were mild chronic emphysematous changes. An incidental small left adrenal adenoma measured 12 mm. She was seen for a followup visit in April 2019. She had been feeling extremely tired and that she had been dragging. She was also having cold intolerance, She was found to be hypothyroid with a TSH of 8.58, free T4 was 1.18. Dr. Leger did start her on levothyroxine 50 mics daily. Her thyroid was corrected at her June visit with a TSH of 1.47. However she was found to be iron deficient once again with an iron saturation of 10.4%, iron level of 36. She was given 1 dose of Injectafer 750 mg. She is here today for follow-up. She states she presented to the emergency room after her last iron infusion with what she felt like was a reaction to the iron. She reported severe headache cramping chills muscle aches. She had some mild nausea and photophobia. She was given IV fluids and a migraine cocktail and was discharged home. She states she recovered with no other effects. She has had seasonal allergies which she states she cannot get any relief from the [id number] antihistamine- Claritin. We did try Singulair but no relief there either. She states she thinks it made her symptoms worse. States she has clear nasal drainage frequently and is making her sneeze and cough quite a bit. She has had some runny eyes but has allergy drops from her eye doctor and these are working well. She denies any new shortness of breath orthopnea. She states overall she does feel better. Her hot flashes have resolved at present. She denies any fever or chills. She is had no mouth sores sore throat or difficulty swallowing. She states her bowels are normal. She has had no urinary changes. She denies any bleeding or excessive bruising. Her ECOG is 0. Past Medical History: Anxiety/depression Cervical cancer Degenerative arthritis Gastroesophageal reflux disease Hereditary hemorrhagic telangiectasia (HHT1) Iron deficiency anemia Ovarian cancer Pulmonary and cerebral AVMs Suspected PFO Hypothyroidism in 2019 Bilateral thalamic and midbrain stroke in 2007 Past Surgical History: Corrective right eye surgery Open surgical procedures on both knees Left total hip arthroplasty in 2015 EGD and colonoscopy in 2012 Gamma knife surgery to left frontal AVM in 2008 Right frontotemporal AVM resection in 2008 Embolotherapy and coiling procedure to left lower lobe pulmonary AVM in 2008 Left oophorectomy for ovarian cancer in 2005 Excision of cervical cancer in 1985 Allergies: sulfa Medications: Aspirin 1 Tablet (of 81 mg) Oral daily DOK 1 Tablet (of 100 mg) Oral PRN Levothyroxine Sodium 1 Tablet (of 25 mcg) Oral daily Prevacid 1 Tablet (of 30 mg) Capsule Delayed Release Oral daily TraZODone HCl 0.5 Tablet (of 50 mg) Oral at bedtime Family History: Ms. Quach's mother at age 56. Ms. Quach's father at age 61. Ms. Quach has 2 brothers: 2 . She has 1 sister who is . Father of heart attack at age 61. Her mother at age 56 with complications of rheumatic heart disease and congestive heart failure. Her mother and her maternal grandmother reportedly had HHT, and one brother has HTT. One brother of overdose at age 48. Another brother at age 60, cause unknown to the patient. A sister at age 50 as a result of choking on food. She had multiple medical problems including diabetes, coronary artery disease, and strokes. Her only child as his son, currently age 25. She suspects he may have H TT, though his genetic testing apparently has been negative. Social History: Ms. Quach is and she is a disabled. She is a daily smoker who has smoked 1.0 pack/day for 25 years. She is an active drinker.She consumes 2 drinks/day. She has a history of smoking 1 pack of cigarettes daily for more than 25 years. She has alcohol use estimated once or twice a week. She has never been a heavy drinker. She denies use of illicit drugs. Review Of Symptoms: Constitutional Denies fevers, chills, excessive fatigue or weight loss. Hot flashes has resolved. Allergic/Immunologic She states she is having seasonal allergies to the point where there are making me crazy . She states that the Claritin and Singular are not working. Benadryl makes her too sleepy. Eyes Denies significant visual changes. No diplopia. No amaurosis. ENMT Denies changes in hearing, sore throat, mouth sores, difficulty or changes in swallowing ability, and/or sinus drainage. Hematologic/Lymphatic Denies easy bruising or bleeding. The patient denies any tender or palpable lymph nodes. Respiratory Denies dyspnea on exertion, chest pain, cough or hemoptysis. Denies orthopnea. Cardiovascular Denies anginal chest pain, palpitations or orthopnea. Gastrointestinal Denies nausea, vomiting, diarrhea, GI bleeding, or constipation. Denies change in bowel habits and/or stool color, no heartburn or early satiety. Genitourinary (F) No hematuria, hesitancy, incontinence, vaginal bleeding, discharge or other problems with urination. Musculoskeletal Denies joint pain, swelling or redness. No decreased range of motion. Integumentary Denies chronic rashes, inflammation, ulcerations or skin changes. Neurologic Denies headache, blurred vision, and no areas of focal weakness or numbness. Normal gait. No sensory problems. Psychiatric Denies insomnia, depression, dharmesh or mood swings. Vital Signs: Performed on Aug 20, 2019 11:22 Height - 69.50 in Weight - 162.0 lbs (HIGH) BSA - 1.90 sq.m BMI - 23.58 Temperature - 97.5 F (LOW) Pulse - 66 /min Respiration - 19 /min BP - 129/75 mm(hg) O2 Sat - 98 % Pain - 0,0 - Fully active, able to carry on all predisease activities without restrictions. (ECOG) Physical Examination: Constitutional Alert, oriented, no acute distress. Skin pink, warm and dry. Head Normocephalic; atraumatic. Eyes Conjunctivae and sclerae are clear and without icterus. Pupils are reactive and equal. Neck Supple without masses or thyromegaly. No jugular venous distension. Hematologic/Lymphatic No petechiae or purpura. Back/Spine Non-tender to palpation. Extremities No visible deformities, no cyanosis, clubbing or edema. Musculoskeletal No tenderness or swelling, normal range of motion without obvious weakness. Integumentary No rashes or lesions. Neurologic No sensory or motor deficits, normal cerebellar function, normal gait. Psychiatric Alert and oriented times three. Coherent speech. Verbalizes understanding of our discussions today. Laboratory:Test performed on Aug 20, 2019 09:45 Ferritin 218 ng/mL Iron 64 mcg/dL TSH 1.68 uIU/mL Iron Binding Capacity (TIBC) 259 mcg/dl % Iron Saturation 24.7 % UIBC 195 mcg/dL Test performed on July 09, 2019 10:10 Sodium 140 mmol/L Potassium 4.2 mmol/L Chloride 104 mmol/L CO2 25 mmol/L Anion Gap 15.2 BUN 8 mg/dL Creatinine 0.9 mg/dL Cr Clearance (Est) 82.2800 mL/min eGFR 65.2 mL/min Glucose 158 mg/dL Calcium 9.6 mg/dL Protein, Total 7.3 g/dL Albumin 4.2 g/dL Globulin 3.1 g/dL Bilirubin, Total 0.2 mg/dL ALT (SGPT) 29 U/L AST (SGOT) 27 U/L Alkaline Phosphatase 72 IU/L WBC 7.8 10 3/uL RBC 4.60 10 6/uL HGB 13.5 g/dL HCT 41.6 % MCV 90.4 fL MCH 29.3 pg MCHC 32.5 g/dL RDW 13.8 % Platelet Count 284 10 3/cmm MPV 11.8 fL Neutrophils 5.0 10 3/uL Lymphocytes 2.1 10 3/uL Monocytes 0.7 10 3/uL Eosinophils 0.0 10 3/uL Basophils 0.1 10 3/uL Neutrophil % 63.4 % Lymphocyte % 26.7 % Monocyte % 8.3 % Eosinophil % 0.4 % Basophils % 0.9 % Test performed on May 07, 2019 14:30 T4, Free 1.18 ng/dL Vitamin B12 243 pg/mL Impression: 1. Patient with hereditary hemorrhagic telangiectasia (HTT1). She has associated epistaxis, oral bleeding, and rectal bleeding. 2. She also has associated iron deficiency anemia. She has required parenteral iron replacement, most recently in January 2018, but she has never required transfusion. 3. She suffered bilateral thalamic stroke in September 2007. 4. She underwent embolotherapy and a coiling procedure to a left lower lobe pulmonary AVM in February 2008. 5. She underwent resection of right frontotemporal cerebral AVM in June 2008 and she underwent gamma knife surgery to a left frontal cerebral AVM in October 2008. 6. She has suspected PFO. Her other medical illnesses include: 7. GERD. 8. Degenerative arthritis. 9. History of cervical and ovarian cancer. 10. Nicotine dependence (cigarettes). 11. Anxiety/depression. As of June 2018 her transferrin saturation and serum ferritin had decreased to iron deficiency range. She was given parenteral iron replacement with a single infusion of Injectafer, as she was not anemic at the time. She did have symptomatic improvement following the iron replacement. Ms. Hernandez was instructed to start levothyroxine after her visit in April 2019 as she was found to be hypothyroid. She has tolerated that well but has had an increase in hot flashes. She states otherwise she is feeling much better overall. She states however she does feel she could be iron deficient again. During follow-up she has continued to have some fatigue, but she is otherwise been stable clinically. Her surveillance CT angiogram of the chest shows stable appearance of the postoperative changes associated with embolization of the left lower lobe AVM. The 6 mm partially calcified left upper lobe suspected AVM also appeared stable. Her laboratory studies show normal hemoglobin/hematocrit levels with adequate transferrin saturation. She did have mildly elevated TSH level, consistent with hypothyroidism. She has responded well to treatment with levothyroxine. Her last Injectafer dosing was on 07/18/2019 at which time she received one 750 mg dose. Plan: 1. Continue observation/expectant management for the HHT. 2. Continue levothyroxine 50 mcg daily. 3. She was informed of her iron study results from today. Her ferritin was 218 iron sat was 24.7 and iron was 64 all dramatically improved. Her TSH is stable at 1.68. 4. Plan for repeat labs in 2 months to include CBC CMP ferritin and iron studies as well as TSH. We will plan for follow-up again in 6 months with the same labs to be repeated. 5. I did send a prescription and to [facility] for cetirizine 10 mg daily prn seasonal allergies. She is aware that it is [id number] and her insurance may not pay for. 6. Ms. Quach was instructed to contact us in the interim should questions or problems arise. Signed By: Lisa Meade-, AOROXYP Gilberto Leger MD <<Signature on File>>
== END 2019-08-20 09:16 | disposition home or self-care (01) ==
LOC: ONCMED 09:18
PROVIDERS: PCP Nurse Practitioner Family; Visit Provider Nurse Practitioner
DX: I78.0 Hereditary hemorrhagic telangiectasia (principal); D63.8 Anemia in other chronic diseases classified elsewhere; D50.8 Other iron deficiency anemias; E03.9 Hypothyroidism, unspecified; J30.2 Other seasonal allergic rhinitis; K21.9 Gastro-esophageal reflux disease without esophagitis; M19.90 Unspecified osteoarthritis, unspecified site; F17.210 Nicotine dependence, cigarettes, uncomplicated; F41.8 Other specified anxiety disorders; Z86.73 Personal history of transient ischemic attack (TIA), and cerebral infarction without residual deficits; Z85.41 Personal history of malignant neoplasm of cervix uteri; Z85.43 Personal history of malignant neoplasm of ovary
CPT/HCPCS: 36415; 82728; 83540; 83550; 84443; 99214

== ENCOUNTER 2019-10-22 09:05 | Outpatient (CLI) | payer MEDICARE, SELFPAY ==
[2019-10-22 09:37] LABS: Basophils # 0.1 10^3/uL (0.0-0.1); Basophils % 0.8 %; Eosinophils % 0.7 %; Hematocrit 42.7 % (37.0-47.0); Hemoglobin 14.1 g/dL (11.5-15.3); Lymphocytes # 2.4 10^3/uL (0.8-4.8); Lymphocytes % 39.2 %; Mean Corpuscular Hemoglobin 30.3 pg (28.0-34.0); Mean Corpuscular Volume 91.6 fL (81-99); Mean Platelet Volume 12.1 fL (7.4-10.4); Monocytes # 0.5 10^3/uL (0.2-0.9); Monocytes % 8.7 %; Neutrophils # 3.09 10^3/uL (1.8-7.7); Neutrophils % 50.4 %; Nucleated Red Blood Cells % 0 %; Platelet Count 248 10^3/cmm (130-400); Red Blood Count 4.66 10^6/uL (4.1-5.3); Red Cell Distribution Width 14.8 % (12.1-15.1); White Blood Count 6.1 10^3/uL (4.0-10.0)
[2019-10-22 10:01] LABS: Alanine Aminotransferase 50 U/L (0-33); Albumin Level 4.1 g/dL (3.5-5.2); Alkaline Phosphatase 65 IU/L (35-105); Anion Gap 13.8 (5-19); Aspartate Amino Transferase 30 U/L (0-32); Blood Urea Nitrogen 10 mg/dL (6-20); Calcium 8.6 mg/dL (8.5-10.5); Carbon Dioxide 23 mmol/L (22-29); Chloride 105 mmol/L (98-107); Ferritin 109 ng/mL (15-150); Globulin 2.9 g/dL (1.3-4.6); Glomerular Filtration Rate 74.5 mL/min (90-130); Glucose 180 mg/dL (65-115); Iron 58 ug/dL (37-145); Osmolality Calculated 287 mOsm/kg (285-295); Percent Saturation 19.9 % (20-50); Potassium 3.8 mmol/L (3.5-5.1); Sodium 138 mmol/L (136-145); Total Bilirubin 0.2 mg/dL (0.15-1.2); Total Iron Binding Capacity 291 mcg/dl; Unsaturated Iron Binding 233 ug/dL (112-347)
[2019-10-22 10:02] LABS: Thyroid Stimulating Hormone 2.45 uIU/mL (0.27-4.20)
== END 2019-10-22 09:06 | disposition home or self-care (01) ==
LOC: ONCMED 09:10
PROVIDERS: PCP Nurse Practitioner Family; Visit Provider Nurse Practitioner
DX: I78.0 Hereditary hemorrhagic telangiectasia (principal); D50.0 Iron deficiency anemia secondary to blood loss (chronic); E03.9 Hypothyroidism, unspecified
CPT/HCPCS: 80053; 82728; 83540; 83550; 84443; 85025

== ENCOUNTER → 2019-10-25 11:00 | Outpatient (BNVA) | payer MEDICARE, SELFPAY | PROVIDERS: PCP Nurse Practitioner Family; Visit Provider Nurse Practitioner Family | DX: J06.9 Acute upper respiratory infection, unspecified (principal); Z20.828 Contact with and (suspected) exposure to other viral communicable diseases | CPT/HCPCS: 87635 ==

== ENCOUNTER 2020-02-28 10:55 | Outpatient (CLI) | payer MEDICARE, SELFPAY ==
[2020-02-28 11:41] LABS: Basophils # 0.1 10^3/uL (0.0-0.1); Basophils % 0.8 %; Eosinophils % 0.3 %; Hematocrit 42.1 % (37.0-47.0); Hemoglobin 13.5 g/dL (11.5-15.3); Lymphocytes # 2.3 10^3/uL (0.8-4.8); Lymphocytes % 31.6 %; Mean Corpuscular HGB Conc 32.1 g/dL (30.0-36.0); Mean Corpuscular Hemoglobin 28.5 pg (28.0-34.0); Mean Corpuscular Volume 88.8 fL (81-99); Mean Platelet Volume 11.9 fL (7.4-10.4); Monocytes # 0.9 10^3/uL (0.2-0.9); Monocytes % 12.4 %; Neutrophils # 3.89 10^3/uL (1.8-7.7); Neutrophils % 54.8 %; Nucleated Red Blood Cells % 0 %; Platelet Count 288 10^3/cmm (130-400); Red Blood Count 4.74 10^6/uL (4.1-5.3); White Blood Count 7.1 10^3/uL (4.0-10.0)
[2020-02-28 12:15] LABS: Alanine Aminotransferase 42 U/L (0-33); Albumin Level 4.2 g/dL (3.5-5.2); Alkaline Phosphatase 79 IU/L (35-105); Anion Gap 10.9 (5-19); Aspartate Amino Transferase 47 U/L (0-32); Blood Urea Nitrogen 10 mg/dL (6-20); Carbon Dioxide 29 mmol/L (22-29); Chloride 103 mmol/L (98-107); Ferritin 26 ng/mL (15-150); Globulin 2.9 g/dL (1.3-4.6); Glomerular Filtration Rate 57.6 mL/min (90-130); Glucose 93 mg/dL (65-115); Iron 52 ug/dL (37-145); Osmolality Calculated 287 mOsm/kg (285-295); Potassium 3.9 mmol/L (3.5-5.1); Sodium 139 mmol/L (136-145); Thyroid Stimulating Hormone 1.68 uIU/mL (0.27-4.20); Total Bilirubin 0.3 mg/dL (0.15-1.2); Total Iron Binding Capacity 400 mcg/dl; Total Protein 7.1 g/dL (6.6-8.7); Unsaturated Iron Binding 348 ug/dL (112-347)
== END 2020-02-28 10:56 | disposition home or self-care (01) ==
LOC: ONCMED 10:57
PROVIDERS: Nurse Practitioner; PCP Family Medicine Adult Medicine; Visit Provider Internal Medicine Medical Oncology
DX: I78.0 Hereditary hemorrhagic telangiectasia (principal); D50.0 Iron deficiency anemia secondary to blood loss (chronic); E03.9 Hypothyroidism, unspecified
CPT/HCPCS: 36415; 80053; 82728; 83540; 83550; 84443; 85025

== ENCOUNTER 2020-03-03 05:50 | Outpatient (CLI) | payer MEDICARE, SELFPAY ==
[2020-03-03] MEDS: ferric carboxy (IVPB) 750 MG in sodium chloride 0.9% (100 ml) 100 ML 460 MG IV (15:00)
--- NOTE | 2020-03-07 18:09 | ONC FU_ITS ---
Dr. Leger Patient Follow-Up Note Patient: Arlene Quach Unit #: [id number]: 1965 Dicatated By: Gilberto Leger M.D.Date of Visit:Mar 03, 2020 Onc Med Follow-up/Prog Note Chief Complaint: Hereditary hemorrhagic telangiectasia. 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 Her HHT was suspected at a young age, as her mother and maternal grandmother had been diagnosed with it, and she had recurrent oral bleeding and epistaxis as a child and young adult. In September 2007 she was diagnosed with bilateral thalamic stroke. Her brain MRI at that time showed, in addition to the infarcts, a right temporal AVM measuring 1.[address] in January 2008 showed a moderate sized AVM in the lower lobe of the left lung. Pulmonary angiogram in February 2008 confirmed the left lower lobe AVM as well as a probable smaller AVM in the superior segment left lower lobe. She underwent a successful coiling and embolization procedure. Her evaluation at that time also showed findings suspicious for a PFO. In June 2008 show underwent resection of the right frontotemporal AVM, and in October 2008 she underwent gamma knife surgery to the left frontal AVM. 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 Her further clinical course has been complicated by recurrent epistaxis and oral bleeding as well as episodes of rectal bleeding. In 2015 she was given parenteral iron replacement after she had become significantly anemic, hemoglobin 8.2 g. As of May 2016 her hemoglobin was normal at 15.0 g. By September of this year she was mildly anemic again. As of 02/07/2018 her hemoglobin was down to 9.2 g with hypochromic/microcytic red cell indices. Her serum iron was low at 14 mcg/dL with transferrin saturation 3.5%. Ferritin was low at 5.0 ng/mL, consistent with iron deficiency. She was then given further parenteral iron replacement with infusions of Injectafer on 02/10/2018 and 02/17/2018. It seen her initially on 03/14/2018. Her CBC at that time showed normal hemoglobin at 13.8 g with white blood cell count 9300 and platelet count 220,000. Her serum iron studies show transferrin saturation normal at 28% with ferritin 210 ng/mL. She had further evaluation with CT pulmonary angiogram on 04/13/2018. There was no evidence of pulmonary embolism. A prior endovascular coiling of a left lower lobe AVM was noted. A partially calcified 6 mm nodule in the left upper lobe appeared stable. It was noted that it could represent an additional small AVM or a granuloma. Her other medical illnesses include GERD, degenerative arthritis, and anxiety/depression. She has a history of cervical and ovarian cancer. She has a history of smoking 1 pack of cigarettes daily for more than 25 years. INTERIM HISTORY: In June 2017 she had evidence of iron deficiency with her transferrin saturation decreased to 16% and serum ferritin had declined to 36.0 ng/mL. She was given parenteral iron replacement with one infusion of Injectafer, as she was not anemic at the time. She tolerated it well. She then continued on observation/expectant management for the HHT. Surveillance CT angiogram of the chest on 05/03/2019 showed no evidence of pulmonary embolism. There were stable postoperative changes associated with embolism of the left lower lobe AVM. A 6 mm partially calcified suspected vascular malformation in the left upper lobe also appeared stable. There were mild chronic emphysematous changes. An incidental small left adrenal adenoma measured 12 mm. She is seen for a followup visit. She has been feeling pretty good generally. She does report having some fatigue. Her ECOG score is 1. She complains that she has lost appetite, but she has gained weight. She has not had fever or night sweats, but she sometimes feels hot or cold at night. She complains that her ears have been popping. She does not have cough. She sometimes has shortness of breath. She is still smoking 1/2 pack of cigarettes daily. She sometimes has chest pain. She has some constipation. She has no other GI or complaints. She has some joint pain and she also reports having charley horses. Lately she has had some headaches. She has no focal neurologic symptoms. Medications: Aspirin 1 Tablet (of 81 mg) Oral daily, DOK 1 Tablet (of 100 mg) Oral PRN, Levothyroxine Sodium 1 Tablet (of 25 mcg) Oral daily, Prevacid 1 Tablet (of 30 mg) Capsule Delayed Release Oral daily, TraZODone HCl 0.5 Tablet (of 50 mg) Oral at bedtime Allergies: sulfa Vital Signs: Performed on Mar 03, 2020 14:06 Height - 69.50 in Weight - 168.6 lbs (HIGH) BSA - 1.93 sq.m BMI - 24.54 Temperature - 97.1 F (LOW) Pulse - 79 /min Respiration - 16 /min BP - 118/74 mm(hg) O2 Sat - 98 % Pain - 0 Physical Examination: Constitutional - She looks good generally, Eyes - Sclerae nonicteric. Conjunctivae clear, ENMT - She has multiple telangiectatic lesions on her tongue. There are no other lesions noted in the oral cavity, Hematologic/Lymphatic - No cervical, clavicular, or axillary adenopathy, Respiratory - Lungs are clear with good air movement bilaterally, Cardiovascular - Heart rhythm is regular. There is no murmur, gallop, or rub noted, Abdomen - Soft. Liver and spleen are not enlarged. There is no abdominal mass or ascites noted and there is no inguinal adenopathy, Extremities - No edema, Neurologic - No focal neurologic deficits noted. Lab/Imaging: CBC shows hemoglobin 13.5 g, white blood cell count 7100, and platelet count 288,000. Comprehensive metabolic profile is unremarkable except for slightly elevated liver enzymes with SGOT 42 and SGPT 47 U/L. The serum iron studies show transferrin saturation 13% with ferritin low at 26 ng/mL, consistent with iron deficiency. Historic Problem List: 1. Hereditary hemorrhagic telangiectasia (HTT1). She has associated epistaxis, oral bleeding, and rectal bleeding. 2. She has had associated iron deficiency anemia. She has required parenteral iron replacement. 3. She suffered bilateral thalamic stroke in September 2007. 4. She underwent embolotherapy and a coiling procedure to a left lower lobe pulmonary AVM in February 2008. 5. She underwent resection of right frontotemporal cerebral AVM in June 2008 and she underwent gamma knife surgery to a left frontal cerebral AVM in October 2008. 6. She has suspected PFO. Her other medical illnesses include: 7. GERD. 8. Degenerative arthritis. 9. History of cervical and ovarian cancer. 10. Nicotine dependence (cigarettes). 11. Anxiety/depression. Problems Addressed with this Encounter and Plan: 1. Hereditary hemorrhagic telangiectasia (HTT1). She has had associated epistaxis, oral bleeding, and rectal bleeding. She remains on observation/expectant management. She is due for surveillance CT pulmonary angiogram in April 2020. 2. She has had associated iron deficiency anemia, for which she has required parenteral iron replacement. She is currently not anemic, she does have significant fatigue, and her serum iron studies and ferritin are consistent with iron deficiency. As such, she will be given parenteral iron replacement with a single infusion of Injectafer. She will be scheduled for a follow-up visit in 6 months. Signed By: Gilberto Leger M.D. <<Signature on File>>
== END 2020-03-03 05:51 | disposition home or self-care (01) ==
LOC: ONCMED 05:53
PROVIDERS: PCP Family Medicine Adult Medicine; Visit Provider Internal Medicine Medical Oncology
DX: I78.0 Hereditary hemorrhagic telangiectasia (principal); D50.0 Iron deficiency anemia secondary to blood loss (chronic); Z86.73 Personal history of transient ischemic attack (TIA), and cerebral infarction without residual deficits
CPT/HCPCS: 96365; 99214; J1439

== ENCOUNTER → 2020-03-06 09:58 | Outpatient (BNVA) | payer MEDICARE, SELFPAY | PROVIDERS: PCP Family Medicine Adult Medicine; Visit Provider Nurse Practitioner Family | DX: Z20.828 Contact with and (suspected) exposure to other viral communicable diseases (principal); J06.9 Acute upper respiratory infection, unspecified | CPT/HCPCS: 87635 ==

== ENCOUNTER 2020-05-24 07:49 | Emergency (ER) | payer MEDICARE, SELFPAY ==
[2020-05-24 07:50] VITALS: BP 135/72; PULSE 73; RESP 18; TEMP 36.5; O2SAT 97; BMI 22.1
--- NOTE | 2020-05-24 07:58 | XRR_ITS ---
PROCEDURE INFORMATION: Exam: XR Chest Exam date and time: 05/24/2020 8:27 AM Age: 54 years old Clinical indication: Shortness of breath; Prior surgery; Surgery type: Lung; Additional info: SOB TECHNIQUE: Imaging protocol: XR of the chest Views: 1 view. COMPARISON: CR XR ribs RT mn 3V w CXR1V [id number] 07/29/2019 4:54 PM FINDINGS: Lungs: See Vasculature finding. Pleural spaces: Unremarkable. No pleural effusion. No pneumothorax. Heart/Mediastinum: Stable cardiomediastinal silhouette. Vasculature: Metallic coils are again seen projecting over the left lower lung. No focal consolidation identified. Bones/joints: Unremarkable. XR/XR chest 1V portable [id number] IMPRESSION: No evidence of active cardiopulmonary disease.
--- NOTE | 2020-05-24 07:59 | ECG_ITS ---
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 Measurements Intervals [place] Rate: 66 P: 49 WV: 182 QRS: 62 QRSD: 91 T: 62 QT: 383 QTc: 403 Interpretive Statements SINUS RHYTHM LOW QRS VOLTAGE IN PRECORDIAL LEADS [QRS DEFLECTION < 1.0 mV IN CHEST LEADS] Compared to ECG 08/05/2015 10:58:15 No significant changes Electronically Signed On 05-24-2020 20:23:24 CDT by Amber Martini M.D. [id number]
--- NOTE | 2020-05-24 08:13 | CTR_ITS ---
PROCEDURE INFORMATION: Exam: CTA Chest With Contrast Exam date and time: 05/24/2020 8:48 AM Age: 54 years old Clinical indication: Other: Gi bleed; Shortness of breath; Prior surgery; Surgery type: Lung; Additional info: SOB, pfo, gib TECHNIQUE: Imaging protocol: Computed tomographic angiography of the chest with contrast. 3D rendering (Not supervised by radiologist): MIP and/or 3D reconstructed images were created by the technologist. Radiation optimization: All CT scans at this facility use at least one of these dose optimization techniques: automated exposure control; mA and/or kV adjustment per patient size (includes targeted exams where dose is matched to clinical indication); or iterative reconstruction. Contrast material: OMNI 350; Contrast volume: 95 ml; Contrast route: INTRAVENOUS (IV); COMPARISON: CT angio chest PE protcl [id number] 05/03/2019 9:37 AM RADIATION DOSE METRICS: Total DLP (mGy-cm): 1463.03 FINDINGS: Pulmonary arteries: Normal. No pulmonary emboli. Aorta: Unremarkable. No aortic aneurysm. No aortic dissection. Lungs: No consolidation. Metallic coils are again seen in the left lower lung. Small AV malformations are noted along the central aspect of the left upper lobe, superolateral aspect of the left lower lobe, and posterosuperior aspect of the right lower lobe Pleural spaces: Unremarkable. No pneumothorax. No pleural effusion. Heart: Normal heart size. Coronary atherosclerotic calcifications seen. No pericardial effusion. Lymph nodes: Unremarkable. No enlarged lymph nodes. Bones/joints: Unremarkable. No acute fracture. Soft tissues: Unremarkable. IMPRESSION: 1. No pulmonary embolus or other acute pathology in the chest. 2. Small bilateral pulmonary AV malformations. PROCEDURE INFORMATION: Exam: CT Abdomen And Pelvis With Contrast Exam date and time: 05/24/2020 8:48 AM Age: 54 years old Clinical indication: Other: Gi bleed; Shortness of breath; Prior surgery; Surgery type: Lung; Additional info: SOB, pfo, gib TECHNIQUE: Imaging protocol: Computed tomography of the abdomen and pelvis with contrast. Radiation optimization: All CT scans at this facility use at least one of these dose optimization techniques: automated exposure control; mA and/or kV adjustment per patient size (includes targeted exams where dose is matched to clinical indication); or iterative reconstruction. Contrast material: OMNI 350; Contrast volume: 95 ml; Contrast route: INTRAVENOUS (IV); COMPARISON: CT angio chest PE protcl [id number] 05/03/2019 9:37 AM RADIATION DOSE METRICS: Total DLP (mGy-cm): 1463.03 FINDINGS: Liver: Tiny calcified granulomas are noted in the liver. The liver is otherwise unremarkable. Gallbladder and bile ducts: Normal. No calcified stones. No ductal dilation. Pancreas: Normal. No ductal dilation. Spleen: A tiny calcified granuloma is noted in the spleen. The spleen is otherwise unremarkable. Adrenal glands: Unchanged 1.5 cm hypodense lesion in the left adrenal gland, likely representing an adenoma. The right adrenal gland is unremarkable. Kidneys and ureters: Unchanged incompletely characterized hypodense lesions are again seen in both kidneys. No hydronephrosis or nephrolithiasis. Stomach and bowel: There is diverticulosis without evidence of diverticulitis. Appendix: No evidence of appendicitis. Intraperitoneal space: Unremarkable. No free air. No significant fluid collection. Vasculature: Mild diffuse atherosclerotic disease is present. Lymph nodes: Unremarkable. No enlarged lymph nodes. Urinary bladder: Unremarkable as visualized. Reproductive: Unremarkable as visualized. Bones/joints: The patient is status post left total hip arthroplasty. Unchanged mild loss of height of T10. Degenerative changes of the spine seen. Soft tissues: A small fat containing umbilical hernia is present. CT/CT angio chest w abd pel w con IMPRESSION: No acute intra-abdominal or intrapelvic pathology. Radiation Dose CTDIVOL = (mGy): DLP = 1463.03~1463.03 (mGy-cm)
--- NOTE | 2020-05-24 08:27 | ED_ITS ---
HPI - GI Bleed General: Chief complaint: GI Bleed Stated complaint: Anal Bleeding Time Seen by Provider: 05/24/20 07:57 Source: patient Mode of arrival: ambulatory Limitations: no limitations History of Present Illness: HPI Narrative: 54-year-old female patient presents to the emergency department with 2-week onset of rectal bleeding. She states bleeding has been minimal, has dealt with it at home. She states this morning went to have a bowel movement with large amount of bright red bleeding that occurred from her rectum. She states it appeared as someone was murdered in her bathroom. She denies nausea vomiting diarrhea, states bowel movement was normal. She denies constipation. She denies abdominal pain but does state discomfort in her lower rectal area. She has history of GI bleeding, similar cases in the past, several colonoscopies have been completed with cautery of the lower colon due to bleeding, cautery was completed along with colonoscopy as at [facility]. Last cautery completed approximately 2 years ago. 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 She also has patent PFO that is small. She remains on aspirin 81 mg daily due to history of CVA. She reports chest pain with shortness of breath x2 weeks, occurred at onset of GI symptoms. She reports smoker's cough, denies change of sputum or increased congestion. She states chest pain occurs in the middle of her chest and comes and goes. Rates pain as 5/10 when occurs, denies chest pain upon exam. She has Petr filter for PE/DVT. She reports last ate yesterday in the evening, has not had anything to eat or drink this morning. She denies fever or chills. She reports wearing a pad, states bleeding has stopped but needs to be checked out. complaint: blood on toilet paper and gross hematochezia Onset (ago): week(s) (2) Pain Consistency: intermittent Severity: moderate Relieving factors: bowel movement Exacerbating factors: none Context: history of GI bleed, hemorrhoids and anticoagulant use Associated symptoms: Denies abdominal pain, chills, easy bruising, fever(s), headache(s), nausea, rash or vomiting Treatments Prior to Arrival: none Review of Systems General: Reports: 10 or more systems reviewed and unremarkable except in HPI and below Const: Denies: fever(s), chills or diaphoresis Eyes: Denies: blurry vision or eye redness ENMT: Denies: throat pain, dental pain or disequilibrium Card: Denies: chest pain, palpitations or irregular heart rhythm Resp: Denies: dyspnea, productive cough, non-productive cough or wheezing GI: Reports: rectal pain, change in stool character and hematochezia; Denies: abdominal pain, nausea, vomiting, hematemesis, heartburn, diarrhea, constipation, bloating, GI cramping, belching or pain on defecation : Denies: difficulty voiding or dysuria Musc: Denies: neck pain, back pain, joint pain, joint warmth, joint stiffness or muscle weakness Skin/Breast: Denies: rash, pruritus, erythema, skin tenderness or changes in skin color Neuro: Denies: headache(s), weakness in extremities or behavioral changes Psych: Denies: anxiety or depression Zi/Lymph: Denies: easy bruising PFSH ED PFSH: Medical History Anemia Diarrhea in adult patient GERD (gastroesophageal reflux disease) HHT (hereditary hemorrhagic telangiectasia) Hypothyroid Surgical History History of eye surgery History of hip surgery History of knee surgery Hx of brain surgery Hx of removal of ovary Social History Smoking and tobacco status: current every day smoker Physical Exam Const: COMMON NORMALS: no acute distress, patient oriented x3, healthy appearing and alert GENERAL APPEARANCE: cooperative, comfortable and well hydrated HENMT: COMMON NORMALS: normocephalic, Normal external nose present and moist oral mucous membranes HEAD & SCALP: normocephalic NOSE: Normal external nose present Eye: COMMON NORMALS: Equal, round and reactive pupils present and EOMs intact bilaterally GENERAL EYE: appearance normal, both eyes and all related structures PUPIL: Yes Equal, round and reactive pupils present Neck/C-Spine: COMMON NORMALS: full ROM, no lymphadenopathy and supple GENERAL: Yes normal visual inspection and Yes trachea midline CERVICAL SPINE: Yes cervical ROM normal Lymph: LYMPHATIC: no lymphadenopathy noted Chest: COMMONS NORMALS: normal inspection of the chest and normal palpation of entire chest wall Resp: COMMON NORMALS: normal respiratory effort, No retractions and No use of accessory muscles EFFORT & INSPECTION: No labored and No audible wheezes AUSCULTATION: diminished lung sounds bilateral in the lower lung flanagan Cardio: COMMON NORMALS: regular rate, regular rhythm, S1 normal heart sound present, S2 normal heart sound present and Peripheral pulses 2+ throughout RATE: regular rate RHYTHM: regular rhythm HEART SOUNDS: S1 normal heart sound present and S2 normal heart sound present PERIPHERAL PULSES: Peripheral pulses 2+ throughout GI: COMMON NORMALS: Normal to inspection, nondistended, normoactive bowel sounds present, Soft to palpation and non-tender INSPECTION: Yes normal to inspection, No abdominal wall ecchymosis, No abdominal distension, No central obesity and No Laceration(s) present (GI) PALPATION: Yes Soft to palpation RECTAL EXAM: normal sphincter tone, heme positive stool, External hemorrhoid(s) present, No Internal hemorrhoid(s) present, hemorrhoids External hemorrhoid(s): Yes Internal hemorrhoid(s): No, No Fistula present (GI), no laceration(s) noted and no tenderness noted : COMMON NORMALS: Yes no CVA tenderness BLADDER/KIDNEY EXAM: Yes no CVA tenderness Back/Pelvis: COMMON NORMALS: no CVA tenderness and thoracic and lumbar spine normal to inspection Extremity: COMMON NORMALS: normal to inspection, full ROM, capillary refill normal and no pedal edema GENERAL: Yes normal exam except as noted Neuro: COMMON NORMALS: patient oriented x3 and no focal motor deficits SENSORIUM/ORIENTATION: Yes alert Psych: COMMON NORMALS: mental status grossly normal, Normal thought process present, cooperative, normal affect, speech normal and activity/motor behavior normal ACTIVITY/MOTOR BEHAVIOR: Yes appropriate eye contact SPEECH: Yes normal speech THOUGHT PROCESS: Normal thought process present Skin: COMMON NORMALS: no rashes or lesions noted, no wounds, turgor normal, no petechiae and no mottling GENERAL SKIN EXAM: no rashes or lesions noted, elasticity normal and turgor normal Course ED course: 54-year-old female patient with HHT presents to the emergency department with rectal bleeding x2 weeks, worsening symptoms this morning. She did not complain of abdominal pain but did complain of rectal discomfort. External hemorrhoids were appreciated on exam; internal exam did not reveal abnormalities with exception of positive guaiac stool. CT abdomen and pelvis did not reveal acute abnormalities such as lesion or bleeding. Patient did complain of chest pain since onset of symptoms; she has history of Petr filter placement; CTA of the chest did not reveal pulmonary embolism or acute abnormalities. Troponin was normal, EKG revealed sinus rhythm without ST depression or elevation, ventricular rate was 66. Hemoglobin normal, no leukocytosis; chemistry unremarkable, lipase 25. Spoke with Dr. Gregg who will see patient on Tuesday at 2:15 PM, she will more than likely need colonoscopy with possible cautery. Advised to stop aspirin due to bleeding, this was discussed with the patient she is aware of stroke risk that can occur as well as bleeding that can continue to occur if she resumes aspirin. She agrees to see Dr. Gregg. Agrees to return to the emergency department if she develops worsening symptoms such as weakness increased bleeding or abdominal pain. Consultations: Consultation #1: Dr. Gregg, surgeon, history of present illness, clinical findings and clinical history of colonoscopies with needed cauterization discussed. Advised patient experienced rectal bleeding this morning and again when she was in the ED. CT scan abdomen and pelvis with IV contrast did not reveal colon lesion or active bleeding. Hemoglobin stable, vital signs were stable, lipase 25. He advised for patient to follow-up in his office Tuesday at 2:15 PM, advised to stop aspirin as she is actively bleeding, aware there is a stroke history. Time: 10:35 Vital Signs: Vital signs: Vital Signs Temperature 97.7 F 05/24/20 07:50 Pulse Rate 59 L 05/24/20 10:55 Respiratory Rate 14 05/24/20 10:55 Blood Pressure 121/67 05/24/20 10:55 Pulse Oximetry 98 05/24/20 10:55 MDM - GI Bleed Lab Data: Labs: Lab Results 05/24/20 05/24/20 05/24/20 Range/Units 08:00 08:00 08:00 WBC 5.8 (4.0-10.0) 10^3/ uL RBC 4.45 (4.1-5.3) 10^6/u L Hgb 13.0 (11.5-15.3) g/dL Hct 40.3 (37.0-47.0) % MCV 90.6 (81-99) fL MCH 29.2 (28.0-34.0) pg MCHC 32.3 (30.0-36.0) g/dL RDW 15.9 H (12.1-15.1) % Plt Count 242 (130-400) 10^3/c mm MPV 12.3 H (7.4-10.4) fL Neut % (Auto) 49.7 % Lymph % (Auto) 34.9 % [place] % (Auto) 11.8 % Eos % (Auto) 1.9 % Baso % (Auto) 1.4 % Neut # (Auto) 2.90 (1.8-7.7) 10^3/u L Lymph # (Auto) 2.0 (0.8-4.8) 10^3/u L [place] # (Auto) 0.7 (0.2-0.9) 10^3/u L Eos # (Auto) 0.1 (0.0-0.8) 10^3/u L Baso # (Auto) 0.1 (0.0-0.1) 10^3/u L Nucleated RBC % (a uto) 0 % Nucleated RBCs # 0.0 /100WBC Sodium 142 (136-145) mmol/L Potassium 4.5 (3.5-5.1) mmol/L Chloride 108 H (98-107) mmol/L Carbon Dioxide 26 (22-29) mmol/L Anion Gap 12.5 (5-19) BUN 11 (6-20) mg/dL Creatinine 0.7 (0.5-0.9) mg/dL GFR Calculation 86.9 L (90-130) mL/min Glucose 109 (65-115) mg/dL Calculated Osmolal ity 294 (285-295) mOsm/k g Lactate 1.0 (0.5-2.2) mmol/L Calcium 8.7 (8.5-10.5) mg/dL Total Bilirubin 0.2 (0.15-1.2) mg/dL AST 44 H (0-32) U/L ALT 58 H (0-33) U/L Alkaline Phosphata se 99 (35-105) IU/L Troponin T Baselin e (0-10) ng/L Troponin T 120 Min [place] (0-10) ng/L Delta Troponin T (0-10) ABS# Total Protein 6.6 (6.6-8.7) g/dL Albumin 3.9 (3.5-5.2) g/dL Globulin 2.7 (1.3-4.6) g/dL Lipase 25 (13-60) U/L Urine Color (Yellow) Urine Appearance (CLEAR) Urine pH (5-7) Ur Specific Gravit y (1.005-1.030) Urine Protein (Negative) Urine Glucose (UA) (Normal) Urine Ketones (Negative) Urine Blood (Negative) Urine Nitrate (Negative) Urine Bilirubin (Negative) Urine Urobilinogen (Negative) mg/dL Ur Leukocyte Zuleyma ase (Negative) Nasal/Oral COVID-1 9 PCR SARS-CoV-2 Ag (Rap id) (Negative) Blood Type Rho(D) Type Antibody Screen 05/24/20 05/24/20 05/24/20 Range/Units 08:00 08:30 08:30 WBC (4.0-10.0) 10^3/ uL RBC (4.1-5.3) 10^6/u L Hgb (11.5-15.3) g/dL Hct (37.0-47.0) % MCV (81-99) fL MCH (28.0-34.0) pg MCHC (30.0-36.0) g/dL RDW (12.1-15.1) % Plt Count (130-400) 10^3/c mm MPV (7.4-10.4) fL Neut % (Auto) % Lymph % (Auto) % [place] % (Auto) % Eos % (Auto) % Baso % (Auto) % Neut # (Auto) (1.8-7.7) 10^3/u L Lymph # (Auto) (0.8-4.8) 10^3/u L [place] # (Auto) (0.2-0.9) 10^3/u L Eos # (Auto) (0.0-0.8) 10^3/u L Baso # (Auto) (0.0-0.1) 10^3/u L Nucleated RBC % (a uto) % Nucleated RBCs # /100WBC Sodium (136-145) mmol/L Potassium (3.5-5.1) mmol/L Chloride (98-107) mmol/L Carbon Dioxide (22-29) mmol/L Anion Gap (5-19) BUN (6-20) mg/dL Creatinine (0.5-0.9) mg/dL GFR Calculation (90-130) mL/min Glucose (65-115) mg/dL Calculated Osmolal ity (285-295) mOsm/k g Lactate (0.5-2.2) mmol/L Calcium (8.5-10.5) mg/dL Total Bilirubin (0.15-1.2) mg/dL AST (0-32) U/L ALT (0-33) U/L Alkaline Phosphata se (35-105) IU/L Troponin T Baselin e 6 (0-10) ng/L Troponin T 120 Min [place] (0-10) ng/L Delta Troponin T (0-10) ABS# Total Protein (6.6-8.7) g/dL Albumin (3.5-5.2) g/dL Globulin (1.3-4.6) g/dL Lipase (13-60) U/L Urine Color (Yellow) Urine Appearance (CLEAR) Urine pH (5-7) Ur Specific Gravit y (1.005-1.030) Urine Protein (Negative) Urine Glucose (UA) (Normal) Urine Ketones (Negative) Urine Blood (Negative) Urine Nitrate (Negative) Urine Bilirubin (Negative) Urine Urobilinogen (Negative) mg/dL Ur Leukocyte Zuleyma ase (Negative) Nasal/Oral COVID-1 9 PCR Cancelled SARS-CoV-2 Ag (Rap id) (Negative) Blood Type O Negative Rho(D) Type Negative / 0 Antibody Screen Negative 05/24/20 05/24/20 05/24/20 Range/Units 08:30 09:46 10:04 WBC (4.0-10.0) 10^3/ uL RBC (4.1-5.3) 10^6/u L Hgb (11.5-15.3) g/dL Hct (37.0-47.0) % MCV (81-99) fL MCH (28.0-34.0) pg MCHC (30.0-36.0) g/dL RDW (12.1-15.1) % Plt Count (130-400) 10^3/c mm MPV (7.4-10.4) fL Neut % (Auto) % Lymph % (Auto) % [place] % (Auto) % Eos % (Auto) % Baso % (Auto) % Neut # (Auto) (1.8-7.7) 10^3/u L Lymph # (Auto) (0.8-4.8) 10^3/u L [place] # (Auto) (0.2-0.9) 10^3/u L Eos # (Auto) (0.0-0.8) 10^3/u L Baso # (Auto) (0.0-0.1) 10^3/u L Nucleated RBC % (a uto) % Nucleated RBCs # /100WBC Sodium (136-145) mmol/L Potassium (3.5-5.1) mmol/L Chloride (98-107) mmol/L Carbon Dioxide (22-29) mmol/L Anion Gap (5-19) BUN (6-20) mg/dL Creatinine (0.5-0.9) mg/dL GFR Calculation (90-130) mL/min Glucose (65-115) mg/dL Calculated Osmolal ity (285-295) mOsm/k g Lactate (0.5-2.2) mmol/L Calcium (8.5-10.5) mg/dL Total Bilirubin (0.15-1.2) mg/dL AST (0-32) U/L ALT (0-33) U/L Alkaline Phosphata se (35-105) IU/L Troponin T Baselin e (0-10) ng/L Troponin T 120 Min [place] 6.00 (0-10) ng/L Delta Troponin T 0 (0-10) ABS# Total Protein (6.6-8.7) g/dL Albumin (3.5-5.2) g/dL Globulin (1.3-4.6) g/dL Lipase (13-60) U/L Urine Color Straw (Yellow) Urine Appearance Clear (CLEAR) Urine pH 7 (5-7) Ur Specific Gravit y 1.005 (1.005-1.030) Urine Protein Neg (Negative) Urine Glucose (UA) Norm (Normal) Urine Ketones Negative (Negative) Urine Blood Neg (Negative) Urine Nitrate Negative (Negative) Urine Bilirubin 1+ H (Negative) Urine Urobilinogen Norm (Negative) mg/dL Ur Leukocyte Zuleyma ase Negative (Negative) Nasal/Oral COVID-1 9 PCR SARS-CoV-2 Ag (Rap id) Negative (Negative) Blood Type Rho(D) Type Antibody Screen Imaging Data^: CXR: Radiologist's impression: [facility] [address] [place] [id number] XRay Report Signed Patient: Arlene Quachit #: [id number] : 1965Acct#:[id number] Age/Sex: 54 / FADM Date: 05/24/20 Loc: ERRoom/Bed: Attending Dr: Ordering Provider/Ordering MD: Zainab Dixon Date of Service: 05/24/20 Procedure(s): XR chest 1V portable [id number] Accession Number(s): [id number] Report Number: [id number] PROCEDURE INFORMATION: Exam: XR Chest Exam date and time: 05/24/2020 8:27 AM Age: 54 years old Clinical indication: Shortness of breath; Prior surgery; Surgery type: Lung; Additional info: SOB TECHNIQUE: Imaging protocol: XR of the chest Views: 1 view. COMPARISON: CR XR ribs RT mn 3V w CXR1V [id number] 07/29/2019 4:54 PM FINDINGS: Lungs: See Vasculature finding. Pleural spaces: Unremarkable. No pleural effusion. No pneumothorax. Heart/Mediastinum: Stable cardiomediastinal silhouette. Vasculature: Metallic coils are again seen projecting over the left lower lung. No focal consolidation identified. Bones/joints: Unremarkable. XR/XR chest 1V portable [id number] IMPRESSION: No evidence of active cardiopulmonary disease. Dictated By:Jay Carter Signed By:Anette Carter Date/Time:05/24/20934 DD/ CT Abd/Pel: Radiologist's impression: [facility] [address] [place] [address] Scan Report Signed Patient: Arlene Quach Unit #: [id number] : 1965 Age/Sex: 54 / F ADM Date: 05/24/20 Loc: ER Room/Bed: Attending Dr: Ordering Provider/Ordering MD: Zainab Dixon Date of Service: 05/24/20 Procedure(s): CT angio chest w abd pel w con Accession Number(s): [id number] Report Number: [id number] PROCEDURE INFORMATION: Exam: CTA Chest With Contrast Exam date and time: 05/24/2020 8:48 AM Age: 54 years old Clinical indication: Other: Gi bleed; Shortness of breath; Prior surgery; Surgery type: Lung; Additional info: SOB, pfo, gib TECHNIQUE: Imaging protocol: Computed tomographic angiography of the chest with contrast. 3D rendering (Not supervised by radiologist): MIP and/or 3D reconstructed images were created by the technologist. Radiation optimization: All CT scans at this facility use at least one of these dose optimization techniques: automated exposure control; mA and/or kV adjustment per patient size (includes targeted exams where dose is matched to clinical indication); or iterative reconstruction. Contrast material: OMNI 350; Contrast volume: 95 ml; Contrast route: INTRAVENOUS (IV); COMPARISON: CT angio chest PE protcl [id number] 05/03/2019 9:37 AM RADIATION DOSE METRICS: Total DLP (mGy-cm): 1463.03 FINDINGS: Pulmonary arteries: Normal. No pulmonary emboli. Aorta: Unremarkable. No aortic aneurysm. No aortic dissection. Lungs: No consolidation. Metallic coils are again seen in the left lower lung. Small AV malformations are noted along the central aspect of the left upper lobe, superolateral aspect of the left lower lobe, and posterosuperior aspect of the right lower lobe Pleural spaces: Unremarkable. No pneumothorax. No pleural effusion. Heart: Normal heart size. Coronary atherosclerotic calcifications seen. No pericardial effusion. Lymph nodes: Unremarkable. No enlarged lymph nodes. Bones/joints: Unremarkable. No acute fracture. Soft tissues: Unremarkable. IMPRESSION: 1. No pulmonary embolus or other acute pathology in the chest. 2. Small bilateral pulmonary AV malformations. PROCEDURE INFORMATION: Exam: CT Abdomen And Pelvis With Contrast Exam date and time: 05/24/2020 8:48 AM Age: 54 years old Clinical indication: Other: Gi bleed; Shortness of breath; Prior surgery; Surgery type: Lung; Additional info: SOB, pfo, gib TECHNIQUE: Imaging protocol: Computed tomography of the abdomen and pelvis with contrast. Radiation optimization: All CT scans at this facility use at least one of these dose optimization techniques: automated exposure control; mA and/or kV adjustment per patient size (includes targeted exams where dose is matched to clinical indication); or iterative reconstruction. Contrast material: OMNI 350; Contrast volume: 95 ml; Contrast route: INTRAVENOUS (IV); COMPARISON: CT angio chest PE protcl [id number] 05/03/2019 9:37 AM RADIATION DOSE METRICS: Total DLP (mGy-cm): 1463.03 FINDINGS: Liver: Tiny calcified granulomas are noted in the liver. The liver is otherwise unremarkable. Gallbladder and bile ducts: Normal. No calcified stones. No ductal dilation. Pancreas: Normal. No ductal dilation. Spleen: A tiny calcified granuloma is noted in the spleen. The spleen is otherwise unremarkable. Adrenal glands: Unchanged 1.5 cm hypodense lesion in the left adrenal gland, likely representing an adenoma. The right adrenal gland is unremarkable. Kidneys and ureters: Unchanged incompletely characterized hypodense lesions are again seen in both kidneys. No hydronephrosis or nephrolithiasis. Stomach and bowel: There is diverticulosis without evidence of diverticulitis. Appendix: No evidence of appendicitis. Intraperitoneal space: Unremarkable. No free air. No significant fluid collection. Vasculature: Mild diffuse atherosclerotic disease is present. Lymph nodes: Unremarkable. No enlarged lymph nodes. Urinary bladder: Unremarkable as visualized. Reproductive: Unremarkable as visualized. Bones/joints: The patient is status post left total hip arthroplasty. Unchanged mild loss of height of T10. Degenerative changes of the spine seen. Soft tissues: A small fat containing umbilical hernia is present. CT/CT angio chest w abd pel w con IMPRESSION: No acute intra-abdominal or intrapelvic pathology. Radiation Dose CTDIVOL = (mGy): DLP = 1463.03 1463.03 (mGy-cm) Dictated By: Jay Carter Signed By: Jay Carter Signed Date/Time: 05/24/20953 DD/ 2 Discharge Plan Discharge Patient Disposition: Home Clinical Impression: Bright red rectal bleeding, Hereditary hemorrhagic telangiectasia Condition: Stable Prescriptions: Discontinued aspirin [Adult Aspirin Regimen] 81 mg tablet,delayed release (DR/EC) 81 mg PO DAILY RF: 0 No Action trazodone 50 mg tablet 50 mg PO DAILY RF: 0 lansoprazole 30 mg capsule,delayed release(DR/EC) 30 mg PO DAILY RF: 0 montelukast [Singulair] 10 mg tablet 10 mg PO DAILY RF: 0 levothyroxine 50 mcg capsule 25 mcg PO DAILY RF: 0 Discharge Orders: Discharge ED (Routine); Ordered 05/24/20 Ordered By: Zainab Dixon Referrals: Aguila Castro MD [Primary Care Provider] - Discharge Diet: GI Soft Discharge Activity: Resume usual activity Patient Instructions: Rectal Bleeding (ED), Opioid Safety Activity Restrictions/Additional Instructions: Continue lansoprazole 30 mg daily as prescribed by your primary care provider, this will help protect her stomach Return to the emergency department if you develop increased rectal bleeding, dizziness or feeling faint or if you develop nausea vomiting fever or chills. Follow-up with Dr. Gregg on 05/26/2020 at 2:15 PM for evaluation, recommended to stop your aspirin since you are actively bleeding. Push fluids to remain hydrated, soft foods to stool is easier to pass Coding Level of Care Code ED Dry Cleaner Presser for Chg Fwd Exam Comprehensive
[2020-05-24 08:42] LABS: Basophils # 0.1 10^3/uL (0.0-0.1); Basophils % 1.4 %; Eosinophils # 0.1 10^3/uL (0.0-0.8); Eosinophils % 1.9 %; Hematocrit 40.3 % (37.0-47.0); Lymphocytes % 34.9 %; Mean Corpuscular HGB Conc 32.3 g/dL (30.0-36.0); Mean Corpuscular Hemoglobin 29.2 pg (28.0-34.0); Mean Corpuscular Volume 90.6 fL (81-99); Mean Platelet Volume 12.3 fL (7.4-10.4); Monocytes # 0.7 10^3/uL (0.2-0.9); Monocytes % 11.8 %; Neutrophils % 49.7 %; Nucleated Red Blood Cells % 0 %; Platelet Count 242 10^3/cmm (130-400); Red Blood Count 4.45 10^6/uL (4.1-5.3); Red Cell Distribution Width 15.9 % (12.1-15.1); White Blood Count 5.8 10^3/uL (4.0-10.0)
[2020-05-24] MEDS: lactated ringers 1,000 ML 150 ML IV (08:47)
[2020-05-24] MEDS: iohexol 350 mg/mL 100 mL Btl IV (09:03)
[2020-05-24 09:08] LABS: Alanine Aminotransferase 58 U/L (0-33); Albumin Level 3.9 g/dL (3.5-5.2); Alkaline Phosphatase 99 IU/L (35-105); Anion Gap 12.5 (5-19); Aspartate Amino Transferase 44 U/L (0-32); Blood Urea Nitrogen 11 mg/dL (6-20); Calcium 8.7 mg/dL (8.5-10.5); Carbon Dioxide 26 mmol/L (22-29); Chloride 108 mmol/L (98-107); Globulin 2.7 g/dL (1.3-4.6); Glomerular Filtration Rate 86.9 mL/min (90-130); Glucose 109 mg/dL (65-115); Lipase 25 U/L (13-60); Osmolality Calculated 294 mOsm/kg (285-295); Potassium 4.5 mmol/L (3.5-5.1); Sodium 142 mmol/L (136-145); Total Bilirubin 0.2 mg/dL (0.15-1.2); Total Protein 6.6 g/dL (6.6-8.7)
[2020-05-24 09:09] LABS: SARS Covid-2 Antigen Negative (Negative)
[2020-05-24 09:10] VITALS: BP 110/89; PULSE 80; RESP 13; O2SAT 96
[2020-05-24 09:10] LABS: Troponin(5th) Baseline 6 ng/L (0-10)
[2020-05-24] MEDS: pantoprazole DR 40 mg Tablet PO (09:17)
[2020-05-24 09:30] VITALS: PULSE 64
[2020-05-24 09:48] VITALS: BP 138/73; PULSE 60; RESP 17; O2SAT 98
[2020-05-24 09:56] LABS: Add Urine Microscopic? NO
[2020-05-24 10:00] VITALS: BP 121/67; PULSE 54; RESP 18; O2SAT 98
[2020-05-24 10:08] LABS: Bilirubin Urine 1+ (Negative); Blood Urine Neg (Negative); Glucose Urine UA Norm (Normal); Ketones Urine Negative (Negative); Leukocyte Esterase Urine Negative (Negative); Nitrate Urine Negative (Negative); Protein Urine Neg (Negative); Specific Gravity, Urine 1.005 (1.005-1.030); Urine Appearance Clear (CLEAR); Urine Color Straw (Yellow); Urobilinogen Urine Norm (Negative); pH Urine 7 (5-7)
--- NOTE | 2020-05-24 10:34 | PC.NURSE ---
pt heart rate has been low 60's, however when pt falls asleep or is very relaxed, heart rate drops into 50's. pt is asymptomatic and upon waking heart rate returns to baseline
[2020-05-24 10:39] LABS: Troponin 5 2HR Delta 0 ABS# (0-10)
[2020-05-24 10:55] VITALS: BP 121/67; PULSE 59; RESP 14; O2SAT 98
[2020-05-25 16:42] LABS: Quest SARS-CoV-2 RNA NOT DETECTED (NOT DETECTED)
--- NOTE | 2020-05-26 13:11 | PC.NURSE ---
notified pt of negative covid result by phone
== END 2020-05-24 10:56 | disposition home or self-care (01) ==
PROVIDERS: Emergency Provider Nurse Practitioner Family; PCP Family Medicine Adult Medicine
DX: K62.5 Hemorrhage of anus and rectum (principal); I78.0 Hereditary hemorrhagic telangiectasia; Z79.82 Long term (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 of aspirin; F17.210 Nicotine dependence, cigarettes, uncomplicated
CPT/HCPCS: 71045; 71275; 74177; 80053; 81003; 83605; 83690; 84484; 85025; 86850; 86900; 87426; 87635; 93005; 96360; 96361; 99284; Q9967

== ENCOUNTER → 2020-05-29 12:00 | Outpatient (BNVA) | payer MEDICARE, SELFPAY | PROVIDERS: PCP Family Medicine Adult Medicine; Visit Provider Surgery | DX: K62.5 Hemorrhage of anus and rectum (principal); R13.10 Dysphagia, unspecified | CPT/HCPCS: 87635 ==

== ENCOUNTER 2020-06-03 10:08 | Day surgery (SDC) | payer MEDICARE, SELFPAY ==
[2020-06-02 11:29] VITALS: BMI 22.1
--- NOTE | 2020-06-03 11:07 | ANES.PREANE2 ---
Pre-Anesthetic Assessment Pre-Anesthetic Assessment: Height/Weight: Height 1.75 m Weight 68.039 kg Preop Diagnosis: panendoscopy Proposed Procedure: Operation Date: 06/03/20 11:15 Proposed Procedures p EGD with balloon dilation 91312 [id number] R13.10 k62.5(Not Applicable) - Benjamín Gregg MD s Colonoscopy(Not Applicable) - Benjamín Gregg MD Was Beta Tiff taken within 24 hours: N/A Was Clonidine taken within 24 hours: N/A Social: Social History: Tobacco and No alcohol Exam: Pre-Anes Outpt Exam: alert, oriented x 3, clear to auscultation bilaterally and regular rate & rhythm Airway: Submandibular: WNL Cervical ROM: WNL MP: 2 Pulmonary: Pulmonary: COPD, HEARD and SOB CV/HEM: CV/HEM: DVT : : None reported Hepatic: Hepatic: None reported GI: GI: GERD Metabolic: Metabolic: Thyroid Musc/skel: Musc/skel: OA/DJD Neuropsych: Neuropsych: None reported Anesthetic Plan: ASA status: 3 Anesthesia: MAC PFSH Anesthesia PFSH: Medical History (Updated 06/01/20 @ 00:01 by ) Anemia CVA (cerebral vascular accident) GERD (gastroesophageal reflux disease) HHT (hereditary hemorrhagic telangiectasia) Hypothyroid Surgical History (Updated 05/26/20 @ 14:26 by Benjamín Gregg MD) History of colonoscopy 2014 History of eye surgery History of hip surgery History of knee surgery History of lung surgery 2008 Hx of brain surgery Hx of removal of ovary Social History Smoking and tobacco status: current every day smoker Data Anesthesia Cardiac Studies: No Data to Display
[2020-06-03 11:20] VITALS: BP 149/84; PULSE 81; RESP 18; TEMP 37.1; O2SAT 96
[2020-06-03] MEDS: sodium chloride 0.9% 1,000 ML 30 ML IV (11:27)
[2020-06-03] MEDS: ondansetron 2 mg/ML SDV 2 mL 4 MG IVP (11:29)
--- NOTE | 2020-06-03 11:35 | W.PM.OPSUD ---
Surgery/Procedure H&P Update DATE OF PROCEDURE: June 03, 2020 DATE H&P PERFORMED: 05/26/20 H&P UPDATE INFORMATION: I have reviewed H&P completed within last 30 days, I have examined patient prior to procedure and No changes to prior documentation PREOP DIAGNOSIS: panendoscopy PLANNED PROCEDURE: Operation Date: 06/03/20 11:15 Proposed Procedures p EGD with balloon dilation 31652 [id number] R13.10 k62.5(Not Applicable) - Benjamín Gregg MD s Colonoscopy(Not Applicable) - Benjamín Gregg MD
[2020-06-03 12:48] VITALS: BP 117/81; PULSE 70; RESP 16; TEMP 36.1; O2SAT 97
[2020-06-03 12:54] VITALS: BP 117/60; PULSE 68; RESP 18; O2SAT 95
--- NOTE | 2020-06-03 13:54 | ANE.PACU2 ---
Inpatient post-anesthesia follow up: Airway intact: Yes Vital signs: Temperature 97.0 F Pulse Rate 68 Respiratory Rate 18 Blood Pressure 117/60 Pulse Oximetry 95 Oxygen Delivery Me thod Room Air Oxygen Flow Rate 2 Fraction of Inspir ed Oxygen Hydration adequate: Yes Nausea and vomiting: No Pain level: 2 Mental status: Baseline
== END 2020-06-03 13:25 | disposition home or self-care (01) ==
PROVIDERS: PCP Family Medicine Adult Medicine; Visit Provider Surgery
PROC: 0DJD8ZZ Inspection of Lower Intestinal Tract, Via Natural or Artificial Opening Endoscopic (ICD-10-PCS; CPT 45378; 2020-06-03 11:15)
PROC: 0DJ08ZZ Inspection of Upper Intestinal Tract, Via Natural or Artificial Opening Endoscopic (ICD-10-PCS; CPT 43235; 2020-06-03 11:15)
DX: K62.5 Hemorrhage of anus and rectum (principal); R13.10 Dysphagia, unspecified; K64.8 Other hemorrhoids; Z86.73 Personal history of transient ischemic attack (TIA), and cerebral infarction without residual deficits; K21.9 Gastro-esophageal reflux disease without esophagitis; E03.9 Hypothyroidism, unspecified; J44.9 Chronic obstructive pulmonary disease, unspecified; Z86.718 Personal history of other venous thrombosis and embolism; M19.90 Unspecified osteoarthritis, unspecified site; F17.210 Nicotine dependence, cigarettes, uncomplicated; I78.1 Nevus, non-neoplastic
CPT/HCPCS: 43250; 45378; 96361; 96374; J2405; J2704; J3490; J7030

== ENCOUNTER 2020-06-27 10:36 | Outpatient (CLI) | payer MEDICARE, SELFPAY ==
[2020-06-27 10:58] LABS: Basophils # 0.1 10^3/uL (0.0-0.1); Basophils % 1.3 %; Eosinophils % 0.4 %; Hemoglobin 12.4 g/dL (11.5-15.3); Mean Corpuscular HGB Conc 32.6 g/dL (30.0-36.0); Mean Corpuscular Volume 85.8 fL (81-99); Mean Platelet Volume 11.5 fL (7.4-10.4); Monocytes # 0.6 10^3/uL (0.2-0.9); Monocytes % 10.4 %; Neutrophils # 2.94 10^3/uL (1.8-7.7); Neutrophils % 52.7 %; Nucleated Red Blood Cells % 0 %; Platelet Count 283 10^3/cmm (130-400); Red Blood Count 4.43 10^6/uL (4.1-5.3); Red Cell Distribution Width 14.4 % (12.1-15.1); White Blood Count 5.6 10^3/uL (4.0-10.0)
[2020-06-27 11:16] LABS: Alanine Aminotransferase 37 U/L (0-33); Alkaline Phosphatase 72 IU/L (35-105); Aspartate Amino Transferase 34 U/L (0-32); Blood Urea Nitrogen 7 mg/dL (6-20); Calcium 8.4 mg/dL (8.5-10.5); Carbon Dioxide 26 mmol/L (22-29); Chloride 104 mmol/L (98-107); Ferritin 16 ng/mL (15-150); Globulin 2.7 g/dL (1.3-4.6); Glucose 120 mg/dL (65-115); Iron 37 ug/dL (37-145); Osmolality Calculated 285 mOsm/kg (285-295); Percent Saturation 9.5 % (20-50); Sodium 138 mmol/L (136-145); Total Bilirubin 0.3 mg/dL (0.15-1.2); Total Iron Binding Capacity 387 mcg/dl; Total Protein 6.7 g/dL (6.6-8.7); Unsaturated Iron Binding 350 ug/dL (112-347)
[2020-06-27 11:58] LABS: Folate Level 5.8 ng/mL (4.8-37.3)
== END 2020-06-27 10:37 | disposition home or self-care (01) ==
LOC: ONCMED 10:38
PROVIDERS: PCP Family Medicine Adult Medicine; Visit Provider Internal Medicine Medical Oncology
DX: D50.0 Iron deficiency anemia secondary to blood loss (chronic) (principal); E03.9 Hypothyroidism, unspecified; I78.0 Hereditary hemorrhagic telangiectasia
CPT/HCPCS: 36415; 80053; 82728; 82746; 83540; 83550; 85025

== ENCOUNTER 2020-07-15 10:56 | Outpatient (CLI) | payer MEDICARE, SELFPAY ==
[2020-07-15 11:34] LABS: Basophils # 0.1 10^3/uL (0.0-0.1); Basophils % 0.8 %; Eosinophils % 0.6 %; Hematocrit 35.2 % (37.0-47.0); Hemoglobin 11.2 g/dL (11.5-15.3); Lymphocytes % 32.6 %; Mean Corpuscular HGB Conc 31.8 g/dL (30.0-36.0); Mean Corpuscular Hemoglobin 27.3 pg (28.0-34.0); Mean Corpuscular Volume 85.6 fL (81-99); Mean Platelet Volume 11.3 fL (7.4-10.4); Monocytes # 0.5 10^3/uL (0.2-0.9); Monocytes % 8.4 %; Neutrophils # 3.55 10^3/uL (1.8-7.7); Neutrophils % 57.1 %; Nucleated Red Blood Cells % 0 %; Platelet Count 301 10^3/cmm (130-400); Red Blood Count 4.11 10^6/uL (4.1-5.3); Red Cell Distribution Width 14.8 % (12.1-15.1); White Blood Count 6.2 10^3/uL (4.0-10.0)
[2020-07-15 11:59] LABS: Alanine Aminotransferase 29 U/L (0-33); Albumin Level 3.8 g/dL (3.5-5.2); Alkaline Phosphatase 89 IU/L (35-105); Anion Gap 9.9 (5-19); Aspartate Amino Transferase 31 U/L (0-32); Blood Urea Nitrogen 9 mg/dL (6-20); Calcium 8.1 mg/dL (8.5-10.5); Carbon Dioxide 26 mmol/L (22-29); Chloride 107 mmol/L (98-107); Ferritin 13 ng/mL (15-150); Globulin 3.1 g/dL (1.3-4.6); Glomerular Filtration Rate 86.9 mL/min (90-130); Glucose 178 mg/dL (65-115); Iron 19 ug/dL (37-145); Osmolality Calculated 291 mOsm/kg (285-295); Percent Saturation 4.8 % (20-50); Potassium 3.9 mmol/L (3.5-5.1); Sodium 139 mmol/L (136-145); Total Bilirubin 0.2 mg/dL (0.15-1.2); Total Iron Binding Capacity 388 mcg/dl; Total Protein 6.9 g/dL (6.6-8.7); Unsaturated Iron Binding 369 ug/dL (112-347)
== END 2020-07-15 10:57 | disposition home or self-care (01) ==
LOC: ONCMED 10:58
PROVIDERS: PCP Family Medicine Adult Medicine; Visit Provider Internal Medicine Medical Oncology
DX: I78.0 Hereditary hemorrhagic telangiectasia (principal); D50.9 Iron deficiency anemia, unspecified; Z79.899 Other long term (current) drug therapy
CPT/HCPCS: 36415; 80053; 82728; 83540; 83550; 85025

== ENCOUNTER → 2020-09-15 13:38 | Outpatient (BNVA) | payer MEDICARE, SELFPAY | PROVIDERS: PCP Family Medicine Adult Medicine; Visit Provider Registered Nurse Neonatal Intensive Care | DX: Z20.822 Contact with and (suspected) exposure to COVID-19 (principal) | CPT/HCPCS: 87635 ==

== ENCOUNTER 2020-09-17 09:30 | Emergency (ER) | payer MEDICARE, SELFPAY ==
--- NOTE | 2020-09-17 09:35 | XR_ITS ---
WS: [id number] XR chest 1V portable [id number] REASON FOR EXAM: chest pain FINDINGS: Coils noted in the left lower lobe which have been present on multiple previous imaging studies. Mild tortuosity of the thoracic aorta. Normal heart size. No active pulmonary parenchymal or pleural disease. Degenerative change in the mid and lower thoracic spine and shoulder joints. Bony thorax otherwise un remarkable. XR/XR chest 1V portable [id number] IMPRESSION: No acute pulmonary abnormality. Chest unchanged compared to 06/13/2020.
--- NOTE | 2020-09-17 09:35 | ECG_ITS ---
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 Measurements Intervals [place] Rate: 78 P: 54 FL: 180 QRS: 58 QRSD: 90 T: 48 QT: 365 QTc: 417 Interpretive Statements SINUS RHYTHM Compared to ECG 05/24/2020 08:05:45 No significant changes Electronically Signed On 09-22-2020 0:28:33 CDT by Cathi Woo M.D. [email or web address] daughters medical centerZindigoselect medical [facility] [place].[employer]/store/OM/[id number]
[2020-09-17 10:14] VITALS: BP 150/86; PULSE 89; RESP 16; TEMP 36.5; O2SAT 99; BMI 21.8
--- NOTE | 2020-09-17 11:55 | XR_ITS ---
WS: [id number] XR abdomen min 2V [id number] REASON FOR EXAM: Abd Pain FINDINGS: No free air or retroperitoneal air. Unremarkable bowel gas pattern with no findings of bowel obstruction. No urinary tract calculi are identified. No mass identified. Lumbar spine is without significant focal finding. Mild degenerative changes noted. Left total hip re placement. XR/XR abdomen min 2V [id number] IMPRESSION: No acute abdominal findings identified.
--- NOTE | 2020-09-17 11:56 | ED_ITS ---
HPI - Nausea/Vomiting/Diarrhea General: Chief complaint: Nausea/Vomiting/Diarrhea Stated complaint: RAYMUNDO, vomiting, diarrhea Time Seen by Provider: 09/17/20 11:53 History of Present Illness: HPI Narrative: This patient is a 55-year-old female who presents to the emergency department with 4 days of nausea vomiting diarrhea. Patient denies fever. Patient states she is having significant amount of cramping in her abdomen. Patient states she also has some epigastric discomfort but has a long history of GERD. Patient states she has had no vomiting today but still having abdominal cramping. Patient did have a Covid PCR test done 2 days ago that was negative for any acute issues and the patient denies any respiratory issues. Patient request Tylenol for headache. Will do medical evaluation treat as needed MD elicited complaint: nausea, vomiting, diarrhea and abdominal pain Onset (ago): day(s) Associated nausea: Yes Associated abdominal pain: Yes Location of pain: Epigastric Associated symtoms: Reports nausea; Denies anxiety, change in vision, chest pain, dysuria, fatigue, headache(s) or palpitations Review of Systems General: Reports: 10 or more systems reviewed and unremarkable except in HPI and below Const: Denies: fever(s), chills, body aches or fatigue Eyes: Denies: change in vision or blurry vision ENMT: Denies: throat pain, hoarseness or mouth pain Card: Denies: chest pain, palpitations, irregular heart rhythm, edema, swelling of feet/ankles or lightheadedness Resp: Denies: dyspnea, productive cough, non-productive cough, wheezing or pain on inspiration GI: Reports: abdominal pain, nausea, vomiting and diarrhea : Denies: flank pain, difficulty voiding, dysuria, urinary frequency, urinary urgency or urinary hesitancy Musc: Denies: neck pain, back pain, extremity pain, extremity swelling, joint pain, joint swelling, joint redness, joint warmth or limited range of motion Skin/Breast: Denies: rash, pruritus, erythema or skin tenderness Neuro: Denies: headache(s), numbness in extremities or weakness in extremities Psych: Denies: anxiety or depression PFS ED PFSH: Medical History Anemia Anterior cruciate ligament complete tear CVA (cerebral vascular accident) Decreased calculated GFR GERD (gastroesophageal reflux disease) Hereditary hemorrhagic telangiectasia Hypothyroid Wellness examination Surgical History H/O esophagogastroduodenoscopy (06/03/20) 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 History of colonoscopy (06/03/20) Cautery of AVM History of eye surgery History of hip surgery History of knee surgery History of lung surgery 2009 Hx of brain surgery Hx of removal of ovary Social History Smoking and tobacco status: current every day smoker cigarettes Packs smoked per day: 1 Alcohol intake: current Alcohol intake frequency: few times a week Marital status: Number of children: 1 Current occupational status: disabled Physical Exam Const: COMMON NORMALS: no acute distress, average body habitus, patient oriented x3, no limitations, healthy appearing, alert and well nourished HENMT: COMMON NORMALS: normocephalic, atraumatic, hearing grossly normal bilaterally, external ears normal, EAC's normal, TM's normal bilaterally, Normal external nose present, Normal nasal mucous membranes and turbinates present, moist oral mucous membranes, oropharynx normal, dentition normal and gingiva normal HEAD & SCALP: normocephalic and atraumatic NOSE: Normal external nose present and Normal nasal mucous membranes and turbinates present EXTERNAL EAR: Yes external ears normal EXTERNAL AUDITORY CANAL: EAC's normal TYMPANIC MEMBRANE: TM's normal bilaterally Neck/C-Spine: COMMON NORMALS: full ROM, no lymphadenopathy, supple, no meningeal signs, no JVD, Thyroid normal and No carotid bruits THYROID: Thyroid normal Chest: COMMONS NORMALS: normal inspection of the chest, normal palpation of entire chest wall, normal inspection of the breasts and normal palpation of the breasts Breast/axilla inspection: Yes normal inspection of the breasts BREAST/AXILLA PALPATION: Yes normal palpation of the breasts Resp: COMMON NORMALS: normal respiratory effort, No retractions, No use of accessory muscles, clear to auscultation bilaterally and percussion normal AUSCULTATION: clear to auscultation bilaterally PERCUSSION: percussion normal Cardio: COMMON NORMALS: no JVD, regular rate, regular rhythm, S1 normal heart sound present, S2 normal heart sound present, No gallops present (Cardio), No clicks present (Cardio), No murmurs present (Cardio), No rub (Cardio) and Peripheral pulses 2+ throughout RATE: regular rate RHYTHM: regular rhythm HEART SOUNDS: S1 normal heart sound present and S2 normal heart sound present PERIPHERAL PULSES: Peripheral pulses 2+ throughout GI: COMMON NORMALS: Normal to inspection, nondistended, normoactive bowel sounds present, Soft to palpation, non-tender, No hepatosplenomegaly present, no masses and no bruits PALPATION: Yes Soft to palpation and Yes No hepatosplenomegaly present Back/Pelvis: COMMON NORMALS: thoracic and lumbar spine normal to inspection, no thoracic nor lumbar tenderness, thoraco-lumbar ROM normal and straight leg raise negative bilaterally Extremity: COMMON NORMALS: normal to inspection, full ROM, capillary refill normal, no joint enlargement, no clubbing, cyanosis or edema, no calf tenderness and no pedal edema Neuro: COMMON NORMALS: patient oriented x3 SENSORIUM/ORIENTATION: Yes alert MENINGEAL SIGNS: Yes no meningeal signs Course Reevaluation(s): Reevaluation #1: Negative evaluation in the emergency department for any acute findings. Patient is take prescription medications as instructed. Encourage p.o. fluids and follow-up with primary care physician in 2 to 3 days. Zofran as needed for nausea vomiting. Do not take anything stronger than Pepto-Bismol to settle diarrhea. Time: 15:34 Vital Signs: Vital signs: Vital Signs Temperature 97.7 F 09/17/20 10:14 Pulse Rate 89 09/17/20 10:14 Respiratory Rate 16 09/17/20 10:14 Blood Pressure 150/86 09/17/20 10:14 Pulse Oximetry 99 09/17/20 10:14 MDM - Nausea/Vomiting/Diarrhea MDM Narrative: Medical decision making narrative: his patient is a 55-year-old female who presents to the emergency department with 4 days of nausea vomiting diarrhea. Patient denies fever. Patient states she is having significant amount of cramping in her abdomen. Patient states she also has some epigastric discomfort but has a long history of GERD. Patient states she has had no vomiting today but still having abdominal cramping. Patient did have a Covid PCR test done 2 days ago that was negative for any acute issues and the patient denies any respiratory issues. Patient request Tylenol for headache. Will do medical evaluation treat as needed Negative evaluation in the emergency department for any acute findings. Patient is take prescription medications as instructed. Encourage p.o. fluids and follow-up with primary care physician in 2 to 3 days. Zofran as needed for nausea vomiting. Do not take anything stronger than Pepto-Bismol to settle diarrhea. Lab Data: Labs: Lab Results 09/17/20 09/17/20 09/17/20 Range/Units 11:30 11:30 11:30 WBC 12.8 H (4.0-10.0) 10^3/ uL RBC 4.99 (4.1-5.3) 10^6/u L Hgb 11.6 (11.5-15.3) g/dL Hct 38.6 (37.0-47.0) % MCV 77.4 L (81-99) fL MCH 23.2 L (28.0-34.0) pg MCHC 30.1 (30.0-36.0) g/dL RDW 18.3 H (12.1-15.1) % Plt Count 316 (130-400) 10^3/c mm MPV 12.0 H (7.4-10.4) fL Neut % (Auto) 74.7 % Lymph % (Auto) 12.0 % [place] % (Auto) 12.0 % Eos % (Auto) 0.3 % Baso % (Auto) 0.5 % Neut # (Auto) 9.52 H (1.8-7.7) 10^3/u L Lymph # (Auto) 1.5 (0.8-4.8) 10^3/u L [place] # (Auto) 1.5 H (0.2-0.9) 10^3/u L Eos # (Auto) 0.0 (0.0-0.8) 10^3/u L Baso # (Auto) 0.1 (0.0-0.1) 10^3/u L Nucleated RBC % (a uto) 0 % Nucleated RBCs # 0.0 /100WBC Sodium 138 (136-145) mmol/L Potassium 3.7 (3.5-5.1) mmol/L Chloride 102 (98-107) mmol/L Carbon Dioxide 25 (22-29) mmol/L Anion Gap 14.7 (5-19) BUN 13 (6-20) mg/dL Creatinine 0.8 (0.5-0.9) mg/dL GFR Calculation 74.2 L (90-130) mL/min Glucose 95 (65-115) mg/dL Calculated Osmolal ity 286 (285-295) mOsm/k g Lactic Acid 1.0 (0.5-2.2) mmol/L Calcium 8.8 (8.5-10.5) mg/dL Total Bilirubin 0.3 (0.15-1.2) mg/dL AST 22 (0-32) U/L ALT 21 (0-33) U/L Alkaline Phosphata se 82 (35-105) IU/L Troponin T Baselin e (0-10) ng/L Troponin T 120 Min jennifer Delta Troponin T Total Protein 7.5 (6.6-8.7) g/dL Albumin 4.1 (3.5-5.2) g/dL Globulin 3.4 (1.3-4.6) g/dL Lipase 19 (13-60) U/L Urine Color (Yellow) Urine Appearance (CLEAR) Urine pH (5-7) Ur Specific Gravit y (1.005-1.030) Urine Protein (Negative) Urine Glucose (UA) (Normal) Urine Ketones (Negative) Urine Blood (Negative) Urine Nitrate (Negative) Urine Bilirubin (Negative) Urine Urobilinogen (Negative) mg/dL Ur Leukocyte Zuleyma ase (Negative) Amorphous Sediment 09/17/20 09/17/20 09/17/20 Range/Units 11:30 14:10 14:50 WBC (4.0-10.0) 10^3/ uL RBC (4.1-5.3) 10^6/u L Hgb (11.5-15.3) g/dL Hct (37.0-47.0) % MCV (81-99) fL MCH (28.0-34.0) pg MCHC (30.0-36.0) g/dL RDW (12.1-15.1) % Plt Count (130-400) 10^3/c mm MPV (7.4-10.4) fL Neut % (Auto) % Lymph % (Auto) % [place] % (Auto) % Eos % (Auto) % Baso % (Auto) % Neut # (Auto) (1.8-7.7) 10^3/u L Lymph # (Auto) (0.8-4.8) 10^3/u L [place] # (Auto) (0.2-0.9) 10^3/u L Eos # (Auto) (0.0-0.8) 10^3/u L Baso # (Auto) (0.0-0.1) 10^3/u L Nucleated RBC % (a uto) % Nucleated RBCs # /100WBC Sodium (136-145) mmol/L Potassium (3.5-5.1) mmol/L Chloride (98-107) mmol/L Carbon Dioxide (22-29) mmol/L Anion Gap (5-19) BUN (6-20) mg/dL Creatinine (0.5-0.9) mg/dL GFR Calculation (90-130) mL/min Glucose (65-115) mg/dL Calculated Osmolal ity (285-295) mOsm/k g Lactic Acid (0.5-2.2) mmol/L Calcium (8.5-10.5) mg/dL Total Bilirubin (0.15-1.2) mg/dL AST (0-32) U/L ALT (0-33) U/L Alkaline Phosphata se (35-105) IU/L Troponin T Baselin e 6 (0-10) ng/L Troponin T 120 Min jennifer Cancelled Delta Troponin T Cancelled Total Protein (6.6-8.7) g/dL Albumin (3.5-5.2) g/dL Globulin (1.3-4.6) g/dL Lipase (13-60) U/L Urine Color Yellow (Yellow) Urine Appearance Clear (CLEAR) Urine pH 5 (5-7) Ur Specific Gravit y 1.020 (1.005-1.030) Urine Protein Neg (Negative) Urine Glucose (UA) Norm (Normal) Urine Ketones 2+ H (Negative) Urine Blood 2+ H (Negative) Urine Nitrate Negative (Negative) Urine Bilirubin 1+ H (Negative) Urine Urobilinogen 1 H (Negative) mg/dL Ur Leukocyte Zuleyma ase Trace H (Negative) Amorphous Sediment Not Reportable Imaging Data^: CXR: Attestation: I personally reviewed and interpreted this imaging study as follows: Radiologist's impression: IMPRESSION: No acute abdominal findings identified. KUB: Attestation: I personally reviewed and interpreted this imaging study as follows: Radiologist's impression: IMPRESSION: No acute abdominal findings identified. EKG Data^: EKG 1: Attestation: I personally reviewed and interpreted this EKG as follows: EKG interpretation date: 09/17/20 EKG interpretation time: 12:59 Prior EKG tracings: not available for review Interpretation: Sinus rhythm heart rate 78 normal EKG Discharge Plan Discharge Patient Disposition: Home Clinical Impression: Nausea vomiting and diarrhea, GERD (gastroesophageal reflux disease) Condition: Stable Prescriptions: New ondansetron 4 mg tablet,disintegrating 4 mg PO DAILY PRN (Reason: nausea and vomiting) 4 Days Qty: 8 RF: 0 No Action trazodone 50 mg tablet 50 mg PO BEDTIME RF: 0 montelukast [Singulair] 10 mg tablet 10 mg PO DAILY RF: 0 levothyroxine 50 mcg capsule 50 mcg PO DAILY RF: 0 cetirizine 10 mg tablet 10 mg PO DAILY RF: 0 aspirin 81 mg Tablet,Delayed Release (Dr/Ec) 81 mg PO DAILY RF: 0 meloxicam 15 mg tablet 15 mg PO DAILY RF: 0 lansoprazole 30 mg capsule,delayed release(DR/EC) 30 mg PO BID RF: 0 Discharge Orders: Discharge ED (Routine); Ordered 09/17/20 Ordered By: Crescencio Webster Referrals: Aguila Castro MD [Primary Care Provider] - Discharge Diet: Advance as tolerated Discharge Activity: Resume usual activity Patient Instructions: Opioid Safety Activity Restrictions/Additional Instructions: Negative evaluation in the emergency department for any acute findings. Patient is take prescription medications as instructed. Encourage p.o. fluids and follow-up with primary care physician in 2 to 3 days. Zofran as needed for nausea vomiting. Do not take anything stronger than Pepto-Bismol to settle diarrhea. Coding Level of Care Code ED Offal Baler for Chg Fwd Exam Comprehensive
[2020-09-17] MEDS: acetaminophen 325 mg Tablet 650 MG PO (12:05)
[2020-09-17] MEDS: sodium chloride 0.9% 1,000 ML 999 ML IV (12:05)
[2020-09-17] MEDS: ondansetron 2 mg/ML SDV 2 mL 4 MG IVP (12:05)
[2020-09-17 12:21] LABS: Basophils # 0.1 10^3/uL (0.0-0.1); Basophils % 0.5 %; Eosinophils % 0.3 %; Hematocrit 38.6 % (37.0-47.0); Hemoglobin 11.6 g/dL (11.5-15.3); Lymphocytes # 1.5 10^3/uL (0.8-4.8); Mean Corpuscular HGB Conc 30.1 g/dL (30.0-36.0); Mean Corpuscular Hemoglobin 23.2 pg (28.0-34.0); Mean Corpuscular Volume 77.4 fL (81-99); Monocytes # 1.5 10^3/uL (0.2-0.9); Neutrophils # 9.52 10^3/uL (1.8-7.7); Neutrophils % 74.7 %; Nucleated Red Blood Cells % 0 %; Platelet Count 316 10^3/cmm (130-400); Positive M 1; Red Blood Count 4.99 10^6/uL (4.1-5.3); Red Cell Distribution Width 18.3 % (12.1-15.1); White Blood Count 12.8 10^3/uL (4.0-10.0)
[2020-09-17 12:31] LABS: Troponin(5th) Baseline 6 ng/L (0-10)
[2020-09-17 12:32] LABS: Alanine Aminotransferase 21 U/L (0-33); Albumin Level 4.1 g/dL (3.5-5.2); Alkaline Phosphatase 82 IU/L (35-105); Anion Gap 14.7 (5-19); Aspartate Amino Transferase 22 U/L (0-32); Blood Urea Nitrogen 13 mg/dL (6-20); Calcium 8.8 mg/dL (8.5-10.5); Carbon Dioxide 25 mmol/L (22-29); Chloride 102 mmol/L (98-107); Globulin 3.4 g/dL (1.3-4.6); Glomerular Filtration Rate 74.2 mL/min (90-130); Glucose 95 mg/dL (65-115); Lipase 19 U/L (13-60); Osmolality Calculated 286 mOsm/kg (285-295); Potassium 3.7 mmol/L (3.5-5.1); Sodium 138 mmol/L (136-145); Total Bilirubin 0.3 mg/dL (0.15-1.2); Total Protein 7.5 g/dL (6.6-8.7)
[2020-09-17 15:30] LABS: Bilirubin Urine 1+ (Negative); Blood Urine 2+ (Negative); Glucose Urine UA Norm (Normal); Ketones Urine 2+ (Negative); Nitrate Urine Negative (Negative); Protein Urine Neg (Negative); Urine Appearance Clear (CLEAR); Urine Color Yellow (Yellow); Urobilinogen Urine 1 mg/dL (Negative); pH Urine 5 (5-7)
[2020-09-17 15:31] LABS: Add Urine Microscopic? YES; Leukocyte Esterase Urine Trace (Negative)
[2020-09-17 15:34] LABS: RBC Urine 0-4 /hpf (0-2); WBC Urine 0-4 /hpf (0-5)
[2020-09-17 15:35] LABS: Squamous Epithelial Cell Urine 0-4 /hpf (0-5)
--- NOTE | 2020-09-17 15:35 | ECG_ITS ---
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 Measurements Intervals [place] Rate: 72 P: 52 PA: 190 QRS: 50 QRSD: 99 T: 44 QT: 381 QTc: 419 Interpretive Statements SINUS RHYTHM Compared to ECG 09/17/2020 12:59:56 No significant changes Electronically Signed On 09-22-2020 0:41:15 CDT by Cathi Woo M.D. [id number]
[2020-09-17 15:36] LABS: Amphetamines Screen Urine Negative (Negative); Barbiturates Screen Urine Negative (Negative); Benzodiazepines Screen Urine Negative (Negative); Cocaine Screen Urine Negative (Negative); Opiate Screen Urine Negative (Negative); PCP Screen Urine Negative (Negative); THC Screen Urine Positive (Negative)
[2020-09-17 15:59] LABS: Troponin 5 2HR Delta 0 ABS# (0-10)
[2020-09-17 16:12] VITALS: BP 119/71; PULSE 75; RESP 16; TEMP 36.8; O2SAT 98
== END 2020-09-17 16:09 | disposition home or self-care (01) ==
PROVIDERS: Physician Assistant; Emergency Provider Emergency Medicine; PCP Family Medicine Adult Medicine
DX: R11.2 Nausea with vomiting, unspecified (principal); R19.7 Diarrhea, unspecified; K21.9 Gastro-esophageal reflux disease without esophagitis; E03.9 Hypothyroidism, unspecified; F17.210 Nicotine dependence, cigarettes, uncomplicated; Z86.73 Personal history of transient ischemic attack (TIA), and cerebral infarction without residual deficits
CPT/HCPCS: 36415; 71045; 74019; 80053; 80306; 81001; 83605; 83690; 84484; 85025; 93005; 96361; 96374; 99284; J2405; J7030

== ENCOUNTER 2020-10-16 15:42 | Outpatient (CLI) | payer MEDICARE, SELFPAY ==
[2020-10-16 16:15] LABS: Basophils # 0.1 10^3/uL (0.0-0.1); Basophils % 0.9 %; Eosinophils # 0.1 10^3/uL (0.0-0.8); Eosinophils % 0.6 %; Hematocrit 34.1 % (37.0-47.0); Hemoglobin 10.3 g/dL (11.5-15.3); Lymphocytes # 2.8 10^3/uL (0.8-4.8); Lymphocytes % 34.2 %; Mean Corpuscular HGB Conc 30.2 g/dL (30.0-36.0); Mean Corpuscular Hemoglobin 22.2 pg (28.0-34.0); Mean Corpuscular Volume 73.7 fl (81-99); Monocytes # 0.7 10^3/uL (0.2-0.9); Monocytes % 8.5 %; Neutrophils # 4.52 10^3/uL (1.8-7.7); Neutrophils % 55.4 %; Nucleated Red Blood Cells % 0 %; Platelet Count 363 10^3/cmm (130-400); Red Blood Count 4.63 10^6/uL (4.1-5.3); Red Cell Distribution Width 18.8 % (12.1-15.1); White Blood Count 8.1 10^3/uL (4.0-10.0)
[2020-10-16 16:53] LABS: Alanine Aminotransferase 30 U/L (0-33); Albumin Level 4.1 g/dL (3.5-5.2); Alkaline Phosphatase 68 IU/L (35-105); Anion Gap 16.7 (5-19); Aspartate Amino Transferase 41 U/L (0-32); Blood Urea Nitrogen 7 mg/dL (6-20); Calcium 8.6 mg/dL (8.5-10.5); Carbon Dioxide 22 mmol/L (22-29); Chloride 105 mmol/L (98-107); Ferritin 11 ng/mL (15-150); Glomerular Filtration Rate 103.4 mL/min (90-130); Glucose 93 mg/dL (65-115); Iron 15 ug/dL (37-145); Osmolality Calculated 288 mOsm/kg (285-295); Percent Saturation 3.6 % (20-50); Potassium 3.7 mmol/L (3.5-5.1); Sodium 140 mmol/L (136-145); Total Bilirubin 0.2 mg/dL (0.15-1.2); Total Iron Binding Capacity 407 mcg/dl; Total Protein 7.1 g/dL (6.6-8.7); Unsaturated Iron Binding 392 ug/dL (112-347)
== END 2020-10-16 15:43 | disposition home or self-care (01) ==
PROVIDERS: PCP Family Medicine Adult Medicine; Visit Provider Internal Medicine Medical Oncology
DX: D64.9 Anemia, unspecified (principal); E03.9 Hypothyroidism, unspecified; Z79.899 Other long term (current) drug therapy; Z79.82 Long term (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 of aspirin
CPT/HCPCS: 36415; 80053; 82728; 83540; 83550; 85025

== ENCOUNTER 2020-10-22 06:30 | Outpatient (CLI) | payer MEDICARE, SELFPAY ==
[2020-10-22] MEDS: ferric carboxy (IVPB) 750 MG in sodium chloride 0.9% (100 ml) 100 ML 460 MG IV (14:30)
== END 2020-10-22 06:31 | disposition home or self-care (01) ==
PROVIDERS: PCP Family Medicine Adult Medicine; Visit Provider Internal Medicine Medical Oncology
DX: D50.9 Iron deficiency anemia, unspecified (principal); Z79.899 Other long term (current) drug therapy
CPT/HCPCS: 96365; J1439

== ENCOUNTER 2020-10-29 06:25 | Outpatient (CLI) | payer MEDICARE, SELFPAY ==
[2020-10-29] MEDS: diphenhydrAMINE 25 mg Capsule PO (15:00)
[2020-10-29] MEDS: ferric carboxy (IVPB) 750 MG in sodium chloride 0.9% (100 ml) 100 ML 460 MG IV (15:20)
[2020-10-29] MEDS: ondansetron 2 mg/ML SDV 2 mL 8 MG IVP (15:30)
== END 2020-10-29 06:26 | disposition home or self-care (01) ==
PROVIDERS: PCP Family Medicine Adult Medicine; Visit Provider Internal Medicine Medical Oncology
DX: I78.0 Hereditary hemorrhagic telangiectasia (principal); R04.0 Epistaxis; D50.9 Iron deficiency anemia, unspecified; Z79.899 Other long term (current) drug therapy
CPT/HCPCS: 96365; 96375; J1100; J1439; J2405

== ENCOUNTER 2020-12-09 13:27 | Outpatient (CLI) | payer MEDICARE, SELFPAY ==
[2020-12-09 14:09] LABS: Basophils # 0.1 10^3/uL (0.0-0.1); Basophils % 0.7 %; Eosinophils # 0.1 10^3/uL (0.0-0.8); Eosinophils % 0.9 %; Hematocrit 45.1 % (37.0-47.0); Hemoglobin 14.4 g/dL (11.5-15.3); Lymphocytes # 2.1 10^3/uL (0.8-4.8); Lymphocytes % 25.9 %; Mean Corpuscular HGB Conc 31.9 g/dL (30.0-36.0); Mean Corpuscular Volume 87.7 fl (81-99); Monocytes # 0.7 10^3/uL (0.2-0.9); Monocytes % 8.5 %; Neutrophils % 63.8 %; Nucleated Red Blood Cells % 0 %; Platelet Count 237 10^3/cmm (130-400); Red Blood Count 5.14 10^6/uL (4.1-5.3); White Blood Count 8.2 10^3/uL (4.0-10.0)
[2020-12-09 14:12] LABS: Mean Platelet Volume 9.9 fL (7.4-10.4)
[2020-12-09 14:13] LABS: Red Cell Distribution Width 12.2 % (12.1-15.1)
[2020-12-09 14:42] LABS: Alanine Aminotransferase 29 U/L (0-33); Albumin Level 4.2 g/dL (3.5-5.2); Alkaline Phosphatase 70 IU/L (35-105); Anion Gap 11.9 (5-19); Aspartate Amino Transferase 26 U/L (0-32); Blood Urea Nitrogen 12 mg/dL (6-20); Calcium 9.2 mg/dL (8.5-10.5); Carbon Dioxide 27 mmol/L (22-29); Chloride 105 mmol/L (98-107); Ferritin 182 ng/mL (15-150); Globulin 2.7 g/dL (1.3-4.6); Glomerular Filtration Rate 74.2 mL/min (90-130); Glucose 119 mg/dL (65-115); Iron 73 ug/dL (37-145); Osmolality Calculated 291 mOsm/kg (285-295); Percent Saturation 23.1 % (20-50); Potassium 3.9 mmol/L (3.5-5.1); Sodium 140 mmol/L (136-145); Total Bilirubin 0.2 mg/dL (0.15-1.2); Total Iron Binding Capacity 316 mcg/dl; Total Protein 6.9 g/dL (6.6-8.7); Unsaturated Iron Binding 243 ug/dL (112-347)
--- NOTE | 2020-12-13 11:41 | ONC FU_ITS ---
Dr. Leger Patient Follow-Up Note Patient: Arlene Quach Unit #: [id number]: 1965 Dicatated By: Gilberto Leger M.D.Date of Visit:Dec 09, 2020 Onc Med Follow-up/Prog Note Chief Complaint: Hereditary hemorrhagic telangiectasia. 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 Her HHT was suspected at a young age, as her mother and maternal grandmother had been diagnosed with it, and she had recurrent oral bleeding and epistaxis as a child and young adult. In September 2007 she was diagnosed with bilateral thalamic stroke. Her brain MRI at that time showed, in addition to the infarcts, a right temporal AVM measuring 1.[address] in January 2008 showed a moderate sized AVM in the lower lobe of the left lung. Pulmonary angiogram in February 2008 confirmed the left lower lobe AVM as well as a probable smaller AVM in the superior segment left lower lobe. She underwent a successful coiling and embolization procedure. Her evaluation at that time also showed findings suspicious for a PFO. In June 2008 show underwent resection of the right frontotemporal AVM, and in October 2008 she underwent gamma knife surgery to the left frontal AVM. 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 Her further clinical course has been complicated by recurrent epistaxis and oral bleeding as well as episodes of rectal bleeding. In 2015 she was given parenteral iron replacement after she had become significantly anemic, hemoglobin 8.2 g. As of May 2016 her hemoglobin was normal at 15.0 g. By September of this year she was mildly anemic again. As of 02/07/2018 her hemoglobin was down to 9.2 g with hypochromic/microcytic red cell indices. Her serum iron was low at 14 mcg/dL with transferrin saturation 3.5%. Ferritin was low at 5.0 ng/mL, consistent with iron deficiency. She was then given further parenteral iron replacement with infusions of Injectafer on 02/10/2018 and 02/17/2018. It seen her initially on 03/14/2018. Her CBC at that time showed normal hemoglobin at 13.8 g with white blood cell count 9300 and platelet count 220,000. Her serum iron studies show transferrin saturation normal at 28% with ferritin 210 ng/mL. She had further evaluation with CT pulmonary angiogram on 04/13/2018. There was no evidence of pulmonary embolism. A prior endovascular coiling of a left lower lobe AVM was noted. A partially calcified 6 mm nodule in the left upper lobe appeared stable. It was noted that it could represent an additional small AVM or a granuloma. Her other medical illnesses include GERD, degenerative arthritis, and anxiety/depression. She has a history of cervical and ovarian cancer. She has a history of smoking 1 pack of cigarettes daily for more than 25 years. INTERIM HISTORY: In June 2017 she had evidence of iron deficiency with her transferrin saturation decreased to 16% and serum ferritin had declined to 36.0 ng/mL. She was given parenteral iron replacement with one infusion of Injectafer, as she was not anemic at the time. She tolerated it well. She then continued on observation/expectant management for the HHT. Surveillance CT angiogram of the chest on 05/03/2019 showed no evidence of pulmonary embolism. There were stable postoperative changes associated with embolism of the left lower lobe AVM. A 6 mm partially calcified suspected vascular malformation in the left upper lobe also appeared stable. There were mild chronic emphysematous changes. An incidental small left adrenal adenoma measured [address] scans of the chest, abdomen, and pelvis on 05/24/2020 showed no evidence of pulmonary embolus or other acute pathology in the chest. Small bilateral pulmonary AV malformations appeared stable. There were no acute intra-abdominal or intrapelvic findings. She is seen for a followup visit. She says that back in May she had a pretty severe episode of bright red rectal bleeding, but she has had none since then. On Tuesday and on of last week she had 1 episode of coughing up bright red blood. She is pretty sure that it did not come from either her nose or her mouth. About 2 weeks ago she started having pretty severe pain on the left side of her back, and it has continued to get worse gradually. It is fairly constant, and sitting makes it worse. She has limited activity, she is still doing some walking and some light housework. ECOG score is 1. She has good appetite. She has not had fever. She occasionally has sweating at night. She has not had sore mouth or throat. She does not complain of shortness of breath or chest pain. She is still smoking. She has no GI or complaints. She has just occasional headache. She has no focal neurologic symptoms. Medications: Aspirin 1 Tablet (of 81 mg) Oral daily, DOK 1 Tablet (of 100 mg) Oral PRN, Levothyroxine Sodium 1 Tablet (of 25 mcg) Oral daily, Prevacid 1 Tablet (of 30 mg) Capsule Delayed Release Oral daily, tiZANidine HCl 0.5 Tablet (of 4 mg) Oral t.i.d. PRN, TraZODone HCl 0.5 Tablet (of 50 mg) Oral at bedtime Allergies: sulfa Vital Signs: Performed on Dec 09, 2020 14:52 Height - 69.50 in Weight - 156.6 lbs (LOW) BSA - 1.87 sq.m BMI - 22.79 Temperature - 96.8 F (LOW) Pulse - 72 /min Respiration - 18 /min BP - 122/75 mm(hg) O2 Sat - 92 % (LOW) Pain - 10 Fatigue - 5 Physical Examination: Constitutional - She looks pretty good generally, Eyes - Sclerae nonicteric. Conjunctivae clear, ENMT - She has several telangiectatic lesions on her tongue. There are no other lesions noted in the oral cavity, Hematologic/Lymphatic - No cervical, clavicular, or axillary adenopathy, Respiratory - Lungs are clear with good air movement bilaterally, Cardiovascular - Heart rhythm is regular. There is no murmur, gallop, or rub noted, Abdomen - Soft. Liver and spleen are not enlarged. There is no abdominal mass or ascites noted and there is no inguinal adenopathy, Back/Spine - She does not appear to have any bony tenderness in the spine. There is some soft tissue tenderness in the lower back area on the left side, Extremities - No edema, Neurologic - No focal neurologic deficits noted. Lab/Imaging: Test performed on Dec 09, 2020 13:43 Ferritin 182 ng/mL Iron 73 mcg/dL Sodium 140 mmol/L Iron Binding Capacity (TIBC) 316 mcg/dl Potassium 3.9 mmol/L % Iron Saturation 23.1 % Chloride 105 mmol/L CO2 27 mmol/L UIBC 243 mcg/dL Anion Gap 11.9 BUN 12 mg/dL Creatinine 0.8 mg/dL Cr Clearance (Est) 88.05 mL/min eGFR 74.2 mL/min Glucose 119 mg/dL Osmolality - Calculated 291 mOsm/kg Calcium 9.2 mg/dL Protein, Total 6.9 g/dL Albumin 4.2 g/dL Globulin 2.7 g/dL Bilirubin, Total 0.2 mg/dL ALT (SGPT) 29 U/L AST (SGOT) 26 U/L Alkaline Phosphatase 70 IU/L WBC 8.2 10 3/uL RBC 5.14 10 6/uL HGB 14.4 g/dL HCT 45.1 % MCV 87.7 fl MCH 28.0 pg MCHC 31.9 g/dL RDW 12.2 % Platelet Count 237 10 3/cmm MPV 9.9 fL Neutrophils 5.20 10 3/uL Lymphocytes 2.1 10 3/uL Monocytes 0.7 10 3/uL Eosinophils 0.1 10 3/uL Basophils 0.1 10 3/uL Neutrophil % 63.8 % Lymphocyte % 25.9 % Monocyte % 8.5 % Eosinophil % 0.9 % Basophils % 0.7 % NRBC % 0 % Problem List: 1. Hereditary hemorrhagic telangiectasia (HTT1). She has associated epistaxis, oral bleeding, and rectal bleeding. 2. She has had associated iron deficiency anemia. She has required parenteral iron replacement. 3. She suffered bilateral thalamic stroke in September 2007. 4. She underwent embolotherapy and a coiling procedure to a left lower lobe pulmonary AVM in February 2008. 5. She underwent resection of right frontotemporal cerebral AVM in June 2008 and she underwent gamma knife surgery to a left frontal cerebral AVM in October 2008. 6. She has suspected PFO. 7. GERD. 8. Degenerative arthritis. 9. History of cervical and ovarian cancer. 10. Nicotine dependence (cigarettes). 11. Anxiety/depression. Problems Addressed with this Encounter and Plan: 1. Patient with hereditary hemorrhagic telangiectasia (HTT1). She has had associated epistaxis, oral bleeding, and rectal bleeding. She has been followed observation/expectant management. She has a history of having undergone embolotherapy and a coiling procedure to a left lower lobe pulmonary AVM in February 2008, and she requires ongoing surveillance. She has had a couple of recent episodes of hemoptysis, and she will be scheduled now for repeat CT pulmonary angiogram. She will have further evaluation as indicated. In the absence of any evidence of acute pathology, I will just plan to see her again in 6 months. 2. She has recent onset of lower back pain on the left side. By clinical evaluation this appears to be consistent with muscle strain. She will be referred for physical therapy. She will have further evaluation as indicated. Signed By: Gilberto Leger M.D. <<Signature on File>>
== END 2020-12-09 13:28 | disposition home or self-care (01) ==
PROVIDERS: PCP Family Medicine Adult Medicine; Visit Provider Internal Medicine Medical Oncology
DX: I78.0 Hereditary hemorrhagic telangiectasia (principal); D50.0 Iron deficiency anemia secondary to blood loss (chronic); E03.9 Hypothyroidism, unspecified
CPT/HCPCS: 36415; 80053; 82728; 83540; 83550; 85025; 99214

== ENCOUNTER 2020-12-12 07:55 | Outpatient (CLI) | payer MEDICARE, SELFPAY ==
--- NOTE | 2020-12-12 | CT_ITS ---
WS: [id number] CTA scan of the chest with IV contrast. Additional two-dimensional coronal and sagittal reconstructio n and MIP images was performed. 12/12/2020 Clinical Data: HYPERTHYROIDISM Comparison: CTA chest with abdomen and pelvis, 05/24/2020. DLP: 732.[address] scans at [facility] use at least one of these dose optimization techniques: automated e xposure control; mA and/or kV adjustment per patient size (includes targeted exams where dose is matc hed to clinical indication); or iterative reconstruction. Findings: The central pulmonary arteries and peripheral pulmonary arteries fill normally with no evidence of in termittent luminal filling defects. No pulmonary embolic disease is noted. There are coils in the left lower lobe pulmonary artery unchanged from before. The small left upper l obe AV malformation seen best on image 67of [id number] on the axial imaging has not changed. There may also be a small AV malformation at the superior aspect of the right lower lobe seen best on axial image 11 4 of 244. No nodules, masses or effusions are seen. The heart size is normal with no pericardial effusion. The pulmonary arterial system and thoracic aorta demonstrate no abnormalities or dilatations. There is no axillary or significant mediastinal adenopathy. No pneumonia or pneumothorax is seen. The thyroid gl and shows normal enhancement. The trachea bifurcates into the bronchi. The upper abdomen shows no abnormalities. The visualized liver, spleen, pancreas, gallbladder, adrena l glands and superior poles of the kidneys show no change. There is a small left adrenal adenoma.. 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 CT/CT angio chest PE protcl [id number] Impression: 1. Negative for pulmonary embolic disease. 2. 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
[2020-12-12] MEDS: iohexol 350 mg/mL 100 mL Btl IV (08:28)
== END 2020-12-12 07:56 | disposition home or self-care (01) ==
PROVIDERS: PCP Family Medicine Adult Medicine; Visit Provider Internal Medicine Medical Oncology
DX: E03.9 Hypothyroidism, unspecified (principal)
CPT/HCPCS: 71275; Q9967

== ENCOUNTER 2020-12-22 06:00 | Outpatient (RCR) | payer MEDICARE, SELFPAY | END 2021-01-20 23:59 | disposition home or self-care (01) | LOC: SPT 06:00 | PROVIDERS: PCP Family Medicine Adult Medicine; Referring Provider Internal Medicine Medical Oncology; Visit Provider Internal Medicine Medical Oncology | DX: M54.50 Low back pain, unspecified (principal) | CPT/HCPCS: 97110; 97162 ==

== ENCOUNTER 2021-04-01 08:23 | Outpatient (CLI) | payer MEDICARE, SELFPAY ==
[2021-04-01 09:10] LABS: Basophils # 0.1 10^3/uL (0.0-0.1); Eosinophils % 0.3 %; Hematocrit 36.3 % (37.0-47.0); Hemoglobin 11.5 g/dL (11.5-15.3); Lymphocytes # 1.9 10^3/uL (0.8-4.8); Lymphocytes % 26.1 %; Mean Corpuscular HGB Conc 31.7 g/dL (30.0-36.0); Mean Corpuscular Hemoglobin 28.1 pg (28.0-34.0); Mean Corpuscular Volume 88.8 fl (81-99); Mean Platelet Volume 11.4 fL (7.4-10.4); Monocytes # 0.9 10^3/uL (0.2-0.9); Monocytes % 11.8 %; Neutrophils # 4.46 10^3/uL (1.8-7.7); Neutrophils % 60.5 %; Nucleated Red Blood Cells % 0 %; Platelet Count 313 10^3/cmm (130-400); Red Blood Count 4.09 10^6/uL (4.1-5.3); Red Cell Distribution Width 14.9 % (12.1-15.1); White Blood Count 7.4 10^3/uL (4.0-10.0)
[2021-04-01 09:37] LABS: Alanine Aminotransferase 15 U/L (0-33); Albumin Level 4.5 g/dL (3.5-5.2); Alkaline Phosphatase 65 IU/L (35-105); Anion Gap 16.9 (5-19); Aspartate Amino Transferase 25 U/L (0-32); Blood Urea Nitrogen 12 mg/dL (6-20); Calcium 9.6 mg/dL (8.5-10.5); Carbon Dioxide 24 mmol/L (22-29); Chloride 105 mmol/L (98-107); Ferritin 13 ng/mL (15-150); Globulin 2.6 g/dL (1.3-4.6); Glomerular Filtration Rate 74.2 mL/min (90-130); Glucose 107 mg/dL (65-115); Iron 38 ug/dL (37-145); Osmolality Calculated 292 mOsm/kg (285-295); Percent Saturation 8.7 % (20-50); Potassium 4.9 mmol/L (3.5-5.1); Sodium 141 mmol/L (136-145); Total Bilirubin 0.3 mg/dL (0.15-1.2); Total Iron Binding Capacity 433 mcg/dl; Total Protein 7.1 g/dL (6.6-8.7); Unsaturated Iron Binding 395 ug/dL (112-347)
== END 2021-04-01 08:24 | disposition home or self-care (01) ==
PROVIDERS: PCP Family Medicine Adult Medicine; Visit Provider Internal Medicine Medical Oncology
DX: D50.9 Iron deficiency anemia, unspecified (principal)
CPT/HCPCS: 36415; 80053; 82728; 83540; 83550; 85025

== ENCOUNTER → 2021-04-13 11:40 | Outpatient (BNVA) | payer MEDICARE, SELFPAY | PROVIDERS: PCP Family Medicine Adult Medicine; Visit Provider Surgery | DX: R13.10 Dysphagia, unspecified (principal) | CPT/HCPCS: 87635 ==

== ENCOUNTER 2021-04-23 11:06 | Outpatient (CLI) | payer MEDICARE, SELFPAY ==
[2021-04-23] MEDS: ondansetron 2 mg/ML SDV 2 mL 8 MG IV (12:30)
[2021-04-23] MEDS: sodium chloride 0.9% (100 ml) 100 ML 75 ML (12:30)
[2021-04-23] MEDS: ferric carboxy (IVPB) 750 MG in sodium chloride 0.9% (100 ml) 100 ML 460 MG IV (13:00)
== END 2021-04-23 11:07 | disposition home or self-care (01) ==
PROVIDERS: PCP Family Medicine Adult Medicine; Visit Provider Internal Medicine Medical Oncology
DX: D50.9 Iron deficiency anemia, unspecified (principal)
CPT/HCPCS: 96365; 96375; J1100; J1439; J2405

== ENCOUNTER → 2021-04-27 16:00 | Outpatient (BNVA) | payer MEDICARE, SELFPAY | PROVIDERS: PCP Family Medicine Adult Medicine; Visit Provider Surgery | DX: R19.7 Diarrhea, unspecified (principal) | CPT/HCPCS: 87635 ==

== ENCOUNTER 2021-04-30 12:59 | Outpatient (CLI) | payer MEDICARE, SELFPAY ==
[2021-04-30] MEDS: ondansetron 2 mg/ML SDV 2 mL 8 MG IV (14:19)
[2021-04-30] MEDS: ferric carboxy (IVPB) 750 MG in sodium chloride 0.9% (100 ml) 100 ML 460 MG IV (14:58)
== END 2021-04-30 13:00 | disposition home or self-care (01) ==
PROVIDERS: PCP Family Medicine Adult Medicine; Visit Provider Internal Medicine Medical Oncology
DX: I78.0 Hereditary hemorrhagic telangiectasia (principal)
CPT/HCPCS: 96365; 96367; 96375; J1100; J2405

== ENCOUNTER 2021-05-01 08:02 | Day surgery (SDC) | payer MEDICARE, SELFPAY ==
[2021-04-15 12:59] VITALS: BMI 22.4
[2021-05-01 08:39] VITALS: BP 131/73; PULSE 66; RESP 18; TEMP 36.1; O2SAT 99
--- NOTE | 2021-05-01 08:46 | P.ANESASSM_ITS ---
Pre-Anesthetic Assessment Height/Weight: Height 1.75 m Weight 68.946 kg Temp Pulse Resp BP Pulse Ox 97.0 F L 66 18 131/73 99 05/01/21 08:39 05/01/21 08:39 05/01/21 08:39 05/01/21 08:39 05/01/21 08:39 Preop Diagnosis: upper gi symptoms Operation Date: 05/01/21 09:00 Proposed Procedures p EGD 10719/r13.10(Not Applicable) - Benjamín Gregg MD Familial anesthetic complications: None Was Beta Tiff taken within 24 hours: N/A Was Clonidine taken within 24 hours: N/A Last intake: Intake Last Liquid Date 04/30/21 Last Liquid Time 22:00 Last Solid Date 04/30/21 Last Solid Time 22:00 Social Tobacco Exam alert, oriented x 3, clear to auscultation bilaterally and regular rate & rhythm Airway Submandibular: within normal limits Cervical ROM: within normal limits Mallampati: Class I Dentition: false Pulmonary None reported CV/HEM Anemia Heriditary hemorrhagic telangiectasia None reported Hepatic None reported GI Gastroesophageal Reflux Disease Concern for AVM with GI bleeds Metabolic Thyroid Disease [facility] [place] Osteoarthritis/DJD Neuropsych Cerebrovascular Accident (No residual sequelae ) Anesthetic Plan ASA status: 3 Anesthesia: Anesthesia Evaluation and General Other: I discussed with the patient risks, goals, and benefits of MAC and general anesthesia. We discussed spectrum of MAC anesthesia including conversion to general as well as possibility of recall of intraoperative stimuli including di scomfort/pain. Patient agrees to proceed with MAC. Risk of > 500 ml blood loss (7ml/kg in children): No Other Pertinent Information Prefers plasma over blood products except in case of absolute need to preserve life and/or organ function Medications/Allergies Home Medications Medication Instructions Recorded Confirmed Last Taken Type montelukast 10 mg tablet 10 mg PO DAILY 07/29/19 05/01/21 04/30/21 History (Singulair) trazodone 50 mg tablet 50 mg PO BEDTIME 07/29/19 05/01/21 04/30/21 History levothyroxine 50 mcg capsule 50 mcg PO DAILY cap 10/25/19 05/01/21 04/30/21 History aspirin 81 mg tablet,delayed 81 mg PO DAILY 06/02/20 05/01/21 04/30/21 History release cetirizine 10 mg tablet 10 mg PO DAILY 06/02/20 05/01/21 04/30/21 History meloxicam 15 mg tablet 15 mg PO DAILY 09/17/20 05/01/21 04/30/21 History lansoprazole 30 mg capsule,delayed See Rx Instructions .ROUTE 01/26/21 05/01/21 04/30/21 Rx release .COMPLEX #60 cap magnesium chloride 1,000 mg PO DAILY 04/08/21 05/01/21 04/30/21 History vitamin E acetate 500 unit PO DAILY 04/08/21 05/01/21 04/30/21 History [id number] 120 mcg-lutein 1 tab PO DAILY 05/01/21 05/01/21 04/30/21 History 150 mcg-herb 37.5 mg chewable tablet (Alive Women's 50 Plus) Allergies Allergy/AdvReac Type Severity Reaction Status Date / Time Sulfa (Sulfonamide Allergy ALGY-Rash Verified 05/01/21 08:35 Antibiotics) [facility] Anesthesia Medical History Anemia Anterior cruciate ligament complete tear CVA (cerebral vascular accident) GERD (gastroesophageal reflux disease) Hereditary hemorrhagic telangiectasia Hypothyroid Surgical History H/O esophagogastroduodenoscopy (06/03/20) 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 History of colonoscopy (06/03/20) Cautery of AVM History of eye surgery History of hip surgery History of knee surgery History of lung surgery 2008 Hx of brain surgery Hx of removal of ovary Social History Smoking and tobacco status: current every day smoker cigarettes Packs smoked per day: 1 Alcohol intake: current Alcohol intake frequency: few times a week Marital status: Number of children: 1 Current occupational status: disabled Data Anesthesia Cardiac Studies: No Data to Display
[2021-05-01] MEDS: sodium chloride 0.9% 1,000 ML 30 ML IV (08:49)
--- NOTE | 2021-05-01 09:13 | W.PM.OPSFHP ---
Same Day Surgery H&P Indication for Procedure/HPI DATE OF PROCEDURE: May 01, 2021 CHIEF COMPLAINT/INDICATIONFOR SURGICAL PROCEDURE: egd for epigastric pain PREOP DIAGNOSIS: upper gi symptoms PLANNED PROCEDURE: Operation Date: 05/01/21 09:00 Proposed Procedures p EGD 50300/r13.10(Not Applicable) - Benjamín Gregg MD Medications/Allergies* Home Medications Medication Instructions Recorded Confirmed Type montelukast 10 mg tablet 10 mg PO DAILY 07/29/19 05/01/21 History (Singulair) trazodone 50 mg tablet 50 mg PO BEDTIME 07/29/19 05/01/21 History levothyroxine 50 mcg capsule 50 mcg PO DAILY cap 10/25/19 05/01/21 History aspirin 81 mg tablet,delayed 81 mg PO DAILY 06/02/20 05/01/21 History release cetirizine 10 mg tablet 10 mg PO DAILY 06/02/20 05/01/21 History meloxicam 15 mg tablet 15 mg PO DAILY 09/17/20 05/01/21 History magnesium chloride 1,000 mg PO DAILY 04/08/21 05/01/21 History vitamin E acetate 500 unit PO DAILY 04/08/21 05/01/21 History [id number] 120 mcg-lutein 1 tab PO DAILY 05/01/21 05/01/21 History 150 mcg-herb 37.5 mg chewable tablet (Alive Women's 50 Plus) Allergies/Adverse Reactions Allergy/AdvReac Type Severity Reaction Status Date / Time Sulfa (Sulfonamide Allergy ALGY-Rash Verified 05/01/21 08:35 Antibiotics) Current Medications: Generic Name Dose Route Start Last Admin Trade Name Freq PRN Reason Stop Dose Admin Sodium Chloride 1,000 mls @ 30 mls/hr 05/01/21 08:15 05/01/21 08:49 Sodium Chloride 0.9% IV 05/02/21 08:14 30 mls/hr .Q24H BLADE Administration Pertinent History/Comorbid Conditions* Medical History (Updated 04/13/21 @ 11:13 by Benjamín Gregg MD) Anemia Anterior cruciate ligament complete tear CVA (cerebral vascular accident) GERD (gastroesophageal reflux disease) Hereditary hemorrhagic telangiectasia Hypothyroid Surgical History (Updated 06/03/20 @ 12:41 by Benjamín Gregg MD) H/O esophagogastroduodenoscopy (06/03/20) 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 History of colonoscopy (06/03/20) Cautery of AVM History of eye surgery History of hip surgery History of knee surgery History of lung surgery 2009 Hx of brain surgery Hx of removal of ovary Social History Smoking and tobacco status: current every day smoker cigarettes Packs smoked per day: 1 Alcohol intake: current Alcohol intake frequency: few times a week Marital status: Number of children: 1 Current occupational status: disabled Pertinent Exam Findings alert, oriented x 3 and regular rate & rhythm Recommendations Surgery/Procedure today Coding Level of Care Code Acute Consumer Insight Manager for Irma Montanez
[2021-05-01 09:31] VITALS: BP 110/63; PULSE 67; RESP 18; TEMP 36.2; O2SAT 95
[2021-05-01 09:41] VITALS: BP 118/67; PULSE 58; RESP 18; O2SAT 97
--- NOTE | 2021-05-01 13:44 | ANE.PACU2 ---
Inpatient post-anesthesia follow up: Airway intact: Yes Vital signs: Temperature 97.1 F Pulse Rate 58 Respiratory Rate 18 Blood Pressure 118/67 Pulse Oximetry 97 Oxygen Delivery Me thod Room Air Oxygen Flow Rate Fraction of Inspir ed Oxygen Hydration adequate: Yes Nausea and vomiting: No Pain level: 1 Mental status: Baseline
== END 2021-05-01 10:00 | disposition home or self-care (01) ==
PROVIDERS: PCP Family Medicine Adult Medicine; Visit Provider Surgery
PROC: 0DJ08ZZ Inspection of Upper Intestinal Tract, Via Natural or Artificial Opening Endoscopic (ICD-10-PCS; CPT 43235; principal; 2021-05-01 09:00)
DX: R10.13 Epigastric pain (principal); K29.70 Gastritis, unspecified, without bleeding; Z79.82 Long term (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 of aspirin; Z86.73 Personal history of transient ischemic attack (TIA), and cerebral infarction without residual deficits; E03.9 Hypothyroidism, unspecified; F17.210 Nicotine dependence, cigarettes, uncomplicated; K21.9 Gastro-esophageal reflux disease without esophagitis
CPT/HCPCS: 43239; 43270; 88305; 88342; J2704; J7030

== ENCOUNTER 2021-06-02 11:58 | Outpatient (CLI) | payer MEDICARE, SELFPAY ==
[2021-06-02 12:35] LABS: Basophils # 0.1 10^3/uL (0.0-0.1); Basophils % 0.8 %; Eosinophils % 0.6 %; Hemoglobin 12.9 g/dL (11.5-15.3); Lymphocytes % 27.1 %; Mean Corpuscular HGB Conc 32.3 g/dL (30.0-36.0); Mean Corpuscular Hemoglobin 28.7 pg (28.0-34.0); Mean Corpuscular Volume 89.1 fl (81-99); Mean Platelet Volume 11.6 fL (7.4-10.4); Monocytes # 0.6 10^3/uL (0.2-0.9); Monocytes % 8.4 %; Neutrophils # 4.52 10^3/uL (1.8-7.7); Neutrophils % 62.7 %; Nucleated Red Blood Cells % 0 %; Platelet Count 250 10^3/cmm (130-400); Red Blood Count 4.49 10^6/uL (4.1-5.3); Red Cell Distribution Width 21.7 % (12.1-15.1); White Blood Count 7.2 10^3/uL (4.0-10.0)
[2021-06-02 12:53] LABS: Alanine Aminotransferase 17 U/L (0-33); Albumin Level 3.9 g/dL (3.5-5.2); Alkaline Phosphatase 76 IU/L (35-105); Aspartate Amino Transferase 19 U/L (0-32); Blood Urea Nitrogen 8 mg/dL (6-20); Calcium 9.3 mg/dL (8.5-10.5); Carbon Dioxide 28 mmol/L (22-29); Chloride 106 mmol/L (98-107); Ferritin 228 ng/mL (15-150); Globulin 2.9 g/dL (1.3-4.6); Glomerular Filtration Rate 86.6 mL/min (90-130); Glucose 136 mg/dL (65-115); Iron 59 ug/dL (37-145); Osmolality Calculated 292 mOsm/kg (285-295); Percent Saturation 22.6 % (20-50); Sodium 141 mmol/L (136-145); Total Bilirubin 0.2 mg/dL (0.15-1.2); Total Iron Binding Capacity 260 mcg/dl; Total Protein 6.8 g/dL (6.6-8.7); Unsaturated Iron Binding 201 ug/dL (112-347)
[2021-06-02 12:54] LABS: Anion Gap 10.7 (5-19); Potassium 3.7 mmol/L (3.5-5.1)
--- NOTE | 2021-06-04 10:43 | ONC FU_ITS ---
[facility] Progress Note Patient: Arlene Quach Unit #: [id number]: 1965 Dicatated By: Aline Andres N.P.Date of Visit:Jun 02, 2021 Onc MED Follow-up/Prog Note Chief Complaint: Hereditary hemorrhagic telangiectasia. 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 Her HHT was suspected at a young age, as her mother and maternal grandmother had been diagnosed with it, and she had recurrent oral bleeding and epistaxis as a child and young adult. In September 2007 she was diagnosed with bilateral thalamic stroke. Her brain MRI at that time showed, in addition to the infarcts, a right temporal AVM measuring 1.[address] in January 2008 showed a moderate sized AVM in the lower lobe of the left lung. Pulmonary angiogram in February 2008 confirmed the left lower lobe AVM as well as a probable smaller AVM in the superior segment left lower lobe. She underwent a successful coiling and embolization procedure. Her evaluation at that time also showed findings suspicious for a PFO. In June 2008 show underwent resection of the right frontotemporal AVM, and in October 2008 she underwent gamma knife surgery to the left frontal AVM. 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 Her further clinical course has been complicated by recurrent epistaxis and oral bleeding as well as episodes of rectal bleeding. In 2015 she was given parenteral iron replacement after she had become significantly anemic, hemoglobin 8.2 g. As of May 2016 her hemoglobin was normal at 15.0 g. By September of this year she was mildly anemic again. As of 02/07/2018 her hemoglobin was down to 9.2 g with hypochromic/microcytic red cell indices. Her serum iron was low at 14 mcg/dL with transferrin saturation 3.5%. Ferritin was low at 5.0 ng/mL, consistent with iron deficiency. She was then given further parenteral iron replacement with infusions of Injectafer on 02/10/2018 and 02/17/2018. It seen her initially on 03/14/2018. Her CBC at that time showed normal hemoglobin at 13.8 g with white blood cell count 9300 and platelet count 220,000. Her serum iron studies show transferrin saturation normal at 28% with ferritin 210 ng/mL. She had further evaluation with CT pulmonary angiogram on 04/13/2018. There was no evidence of pulmonary embolism. A prior endovascular coiling of a left lower lobe AVM was noted. A partially calcified 6 mm nodule in the left upper lobe appeared stable. It was noted that it could represent an additional small AVM or a granuloma. Her other medical illnesses include GERD, degenerative arthritis, and anxiety/depression. She has a history of cervical and ovarian cancer. She has a history of smoking 1 pack of cigarettes daily for more than 25 years. INTERIM HISTORY: In June 2017 she had evidence of iron deficiency with her transferrin saturation decreased to 16% and serum ferritin had declined to 36.0 ng/mL. She was given parenteral iron replacement with one infusion of Injectafer, as she was not anemic at the time. She tolerated it well. She then continued on observation/expectant management for the HHT. Surveillance CT angiogram of the chest on 05/03/2019 showed no evidence of pulmonary embolism. There were stable postoperative changes associated with embolism of the left lower lobe AVM. A 6 mm partially calcified suspected vascular malformation in the left upper lobe also appeared stable. There were mild chronic emphysematous changes. An incidental small left adrenal adenoma measured [address] scans of the chest, abdomen, and pelvis on 05/24/2020 showed no evidence of pulmonary embolus or other acute pathology in the chest. Small bilateral pulmonary AV malformations appeared stable. There were no acute intra-abdominal or intrapelvic findings. Patient is seen today for follow-up visit. She states that she has been feeling well. She does have increased fatigue but she feels like this is related to the fact that she had a surgery on her right knee 3 days ago. Her appetite has been good. No fever, chills, night sweats. No sinus drainage or congestion. She has had some bleeding from her tongue from the telangiectasia. She presents today for follow-up after receiving Injectafer. Review Of Symptoms: See above. Past Medical History: Anxiety/depression Cervical cancer Degenerative arthritis Gastroesophageal reflux disease Hereditary hemorrhagic telangiectasia (HHT1) Iron deficiency anemia Ovarian cancer Pulmonary and cerebral AVMs Suspected PFO Hypothyroidism in 2019 Bilateral thalamic and midbrain stroke in 2007 Past Surgical History: Corrective right eye surgery Open surgical procedures on both knees Left total hip arthroplasty in 2015 EGD and colonoscopy in 2012 Gamma knife surgery to left frontal AVM in 2008 Right frontotemporal AVM resection in 2008 Embolotherapy and coiling procedure to left lower lobe pulmonary AVM in 2008 Left oophorectomy for ovarian cancer in 2005 Excision of cervical cancer in 1985 Allergies: sulfa Medications: Aspirin 1 Tablet (of 81 mg) Oral daily Cetirizine HCl 1 Capsule (of 10 mg) Oral daily DOK 1 Tablet (of 100 mg) Oral PRN Levothyroxine Sodium 1 Tablet (of 50 mcg) Oral daily Montelukast Sodium 1 Tablet (of 10 mg) Oral daily Prevacid 1 Tablet (of 30 mg) Capsule Delayed Release Oral daily tiZANidine HCl 0.5 Tablet (of 4 mg) Oral t.i.d. PRN TraZODone HCl 0.5 Tablet (of 50 mg) Oral at bedtime Family History: Ms. Quach's mother at age 56. Ms. Quach's father at age 61. Ms. Quach has 2 brothers: 2 . She has 1 sister who is . Father of heart attack at age 61. Her mother at age 56 with complications of rheumatic heart disease and congestive heart failure. Her mother and her maternal grandmother reportedly had HHT, and one brother has HTT. One brother of overdose at age 48. Another brother at age 60, cause unknown to the patient. A sister at age 50 as a result of choking on food. She had multiple medical problems including diabetes, coronary artery disease, and strokes. Her only child as his son, currently age 25. She suspects he may have H TT, though his genetic testing apparently has been negative. Social History: Ms. Quach is and she is a disabled. She is a daily smoker who has smoked 0.5 packs/day for 27 years. She is an active drinker.She consumes 2 drinks/day. She has a history of smoking 1 pack of cigarettes daily for more than 25 years. She has alcohol use estimated once or twice a week. She has never been a heavy drinker. She denies use of illicit drugs. Physical Examination: Performed on Jun 02, 2021 14:11: Height - 69.50 in, Weight - 160.4 lbs (HIGH), BSA - 1.89 sq.m, BMI - 23.35, Temperature - 98.2 F (LOW), Pulse - 73 /min, Respiration - 16 /min, BP - 103/68 mm(hg), O2 Sat - 98 %, Pain - 3, and Fatigue - 9. Performance Status: 0 - Fully active, able to carry on all predisease activities without restrictions. (ECOG) Constitutional Alert, cooperative, oriented. Mood and affect appropriate. Appears close to chronological age. Well nourished. Well developed. Head Normocephalic; no scars. ENMT Sinuses are nontender. No oral exudates, ulcers, masses, thrush or mucositis. Oropharynx clear. Tongue with areas of telangiectasia Respiratory Lungs are clear to auscultation without rhonchi or wheezing. Cardiovascular Regular rate and rhythm of heart without murmurs, gallops or rubs. Abdomen Non-tender, non-distended, no masses, ascites or hepatosplenomegaly. Good bowel sounds. No guarding or rebound tenderness. Extremities No visible deformities, no cyanosis, clubbing or edema. Pulses 3+ and equal bilaterally. Musculoskeletal No tenderness or swelling, normal range of motion without obvious weakness. Psychiatric Alert and oriented times three. Coherent speech. Verbalizes understanding of our discussions today. Laboratory: Test performed on Jun 02, 2021 12:18 Ferritin 228 ng/mL Iron 59 mcg/dL Sodium 141 mmol/L Iron Binding Capacity (TIBC) 260 mcg/dl Potassium 3.7 mmol/L % Iron Saturation 22.6 % Chloride 106 mmol/L CO2 28 mmol/L UIBC 201 mcg/dL Anion Gap 10.7 BUN 8 mg/dL Creatinine 0.7 mg/dL Cr Clearance (Est) 103.0700 mL/min eGFR 86.6 mL/min Glucose 136 mg/dL Osmolality - Calculated 292 mOsm/kg Calcium 9.3 mg/dL Protein, Total 6.8 g/dL Albumin 3.9 g/dL Globulin 2.9 g/dL Bilirubin, Total 0.2 mg/dL ALT (SGPT) 17 U/L AST (SGOT) 19 U/L Alkaline Phosphatase 76 IU/L WBC 7.2 10 3/uL RBC 4.49 10 6/uL HGB 12.9 g/dL HCT 40.0 % MCV 89.1 fl MCH 28.7 pg MCHC 32.3 g/dL RDW 21.7 % Platelet Count 250 10 3/cmm MPV 11.6 fL Neutrophils 4.52 10 3/uL Lymphocytes 2.0 10 3/uL Monocytes 0.6 10 3/uL Eosinophils 0.0 10 3/uL Basophils 0.1 10 3/uL Neutrophil % 62.7 % Lymphocyte % 27.1 % Monocyte % 8.4 % Eosinophil % 0.6 % Basophils % 0.8 % NRBC % 0 % Impression: 1. Hereditary hemorrhagic telangiectasia (HTT1). She has associated epistaxis, oral bleeding, and rectal bleeding. 2. She has had associated iron deficiency anemia. She has required parenteral iron replacement. 3. She suffered bilateral thalamic stroke in September 2007. 4. She underwent embolotherapy and a coiling procedure to a left lower lobe pulmonary AVM in February 2008. 5. She underwent resection of right frontotemporal cerebral AVM in June 2008 and she underwent gamma knife surgery to a left frontal cerebral AVM in October 2008. 6. She has suspected PFO. 7. GERD. 8. Degenerative arthritis. 9. History of cervical and ovarian cancer. 10. Nicotine dependence (cigarettes). 11. Anxiety/depression. Plan: 1. Patient with hereditary hemorrhagic telangiectasia (HTT1). She has had associated epistaxis, oral bleeding, and rectal bleeding. She has been followed observation/expectant management. She has a history of having undergone embolotherapy and a coiling procedure to a left lower lobe pulmonary AVM in February 2008, and she requires ongoing surveillance. She received Injectafer x2 and is following up today with labs. Since that time she has had occasional on and off bleeding from her tongue although it is not actively bleeding today. Her iron today is at 59 and her percent saturation is normal at 22.6. We will continue to monitor and she will return to the clinic in 6 months or sooner if needed. Signed By: Aline Andres N.P. <<Signature on File>>
== END 2021-06-02 11:59 | disposition home or self-care (01) ==
PROVIDERS: PCP Family Medicine Adult Medicine; Visit Provider Nurse Practitioner Family
DX: I78.0 Hereditary hemorrhagic telangiectasia (principal); Q25.72 Congenital pulmonary arteriovenous malformation
CPT/HCPCS: 36415; 80053; 82728; 83540; 83550; 85025; 99214

== ENCOUNTER 2021-06-29 11:12 | Emergency (ER) | payer MEDICARE, SELFPAY ==
--- NOTE | 2021-06-29 12:24 | XR_ITS ---
WS: [id number] XR knee RT 3V* [id number] REASON FOR EXAM: pain FINDINGS: No acute fracture or focal bone lesion. Status post screw fixation of proximal right tibial fracture with removal of hardware. Moderate narrowing of the medial and lateral right knee joint spaces with subchondral sclerosis and m arginal osteophytes. There is a mild medial shift of the femur. There is a significant deformity of the posterior tibial plateau, presumably in the midline, on the l ateral view showing large bony excrescence extending superiorly from the posterior tibial plateau. Th is is noted on previous examination of 07/31/2018. Presumably this represents a fracture fragment of t he tibial plateau which has healed in the current position . There are multiple loose bodies. There is narrowing of the patellofemoral joint space with subchondral sclerosis and marginal osteophy derek. XR/XR knee RT 3V* [id number] IMPRESSION: Posttraumatic osteoarthritis, complex, as above.
[2021-06-29 12:34] VITALS: BP 116/78; PULSE 78; RESP 14; TEMP 36.8; O2SAT 99; BMI 22.1
--- NOTE | 2021-06-29 12:59 | ED_ITS ---
HPI - Extremity Injury (Lower) General: Chief Complaint: Extremity Problem,Nontraumatic Stated Complaint: Right knee pain Time Seen by Provider: 06/29/21 12:40 Source: patient Mode of arrival: ambulatory Limitations: no limitations History of Present Illness: Patient is a 55-year-old female presents to ED today with complaint of right knee pain/injury. Patient states a few weeks ago she had tibial hardware removed from her knee that was placed years and years ago following knee trauma. She states they removed the hardware with plans to eventually perform a TKA. She states her orthopedic provider is in [place]. Patient states a few days ago she was getting down from the step rail of a lifted truck when she injured her right knee. Patient states she has been able to bear weight on the extremity but feels like the knee is throbbing . She has taken OTC medications without much relief. MD complaint: knee injury Onset (ago): day(s) Injury: Right: knee Place: home Severity: moderate Relieving factors: immobilization Exacerbating factors: weight bearing, movement and palpation Associated symptoms: Reports no associated symptoms Other symptoms: none Review of Systems Card: Denies: chest pain Resp: Denies: dyspnea Musc: Reports: joint pain; Denies: neck pain, back pain, extremity pain, extremity swelling, joint swelling, joint redness or joint warmth Neuro: Denies: numbness in extremities or sensory changes [facility] ED PFSH: Medical History Anemia Anterior cruciate ligament complete tear CVA (cerebral vascular accident) GERD (gastroesophageal reflux disease) Helicobacter pylori gastritis Hereditary hemorrhagic telangiectasia Hypothyroid Left axillary pain Surgical History H/O esophagogastroduodenoscopy (06/03/20) 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 H/O esophagogastroduodenoscopy (05/01/21) cautery of 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 4 History of colonoscopy (06/03/20) Cautery of AVM History of eye surgery History of hip surgery History of knee surgery History of lung surgery 2009 Hx of brain surgery Hx of removal of ovary Social History Smoking and tobacco status: current every day smoker cigarettes Packs smoked per day: 1 Alcohol intake: current Alcohol intake frequency: few times a week Marital status: Number of children: 1 Current occupational status: disabled Physical Exam Const: COMMON NORMALS: no acute distress, average body habitus, patient oriented x3, no limitations, alert and well nourished Resp: COMMON NORMALS: normal respiratory effort and clear to auscultation bilaterally AUSCULTATION: clear to auscultation bilaterally Cardio: COMMON NORMALS: regular rate and regular rhythm RATE: regular rate RHYTHM: regular rhythm Extremity: COMMON NORMALS: full ROM, capillary refill normal, no joint enlargement, no clubbing, cyanosis or edema, no calf tenderness and no pedal edema GENERAL: Yes normal exam except as noted RIGHT LOWER EXTREMITY: Yes knee joint (arthritic knee; no obvious swelling; no warmth or fluid noted) Right knee: Yes ROM (slightly limited flexion), Yes neurovascular exam (normal) and Y es special tests (no obvious joint laxity noted) Neuro: COMMON NORMALS: patient oriented x3, moves all extremities, no focal motor deficits, no sensory deficits noted and gait normal SENSORIUM/ORIENTATION: Yes alert Skin: COMMON NORMALS: no rashes or lesions noted GENERAL SKIN EXAM: no rashes or lesions noted TRAUMA: no lacerations or abrasions Course Vital Signs: Vital signs: Vital Signs Temperature 98.2 F 06/29/21 12:34 Pulse Rate 78 06/29/21 12:34 Respiratory Rate 14 06/29/21 12:34 Blood Pressure 116/78 06/29/21 12:34 Pulse Oximetry 99 06/29/21 12:34 MDM - Extremity Injury (Lower) Medical Decision Making XR showing significant previous trauma/surgery related changes but nothing acute. She states she believes she has an appoinment with her orthopedic provider in two weeks and can follow up then. Will give patient small amount of pain meds she can use for severe discomfort. Lab Data Radiology Impressions Knee X-Ray 06/29/21 12:24 IMPRESSION: Posttraumatic osteoarthritis, complex, as above. Discharge Plan Discharge Patient Disposition: Home Clinical Impression: Injury of knee, right Qualifiers: Encounter type: initial encounter Qualified Code(s): S89.91XA - Unspecified injury of right lower leg, initial encounter Condition: Stable Prescriptions: New tramadol 50 mg tablet 50 mg PO Q6H PRN (Reason: pain) Qty: 14 0RF No Action trazodone 50 mg tablet 50 mg PO BEDTIME 0RF montelukast [Singulair] 10 mg tablet 10 mg PO DAILY 0RF levothyroxine 50 mcg capsule 50 mcg PO DAILY 0RF magnesium chloride 1,000 mg PO DAILY 0RF vitamin E acetate 500 unit PO DAILY 0RF pantoprazole [Protonix] 40 mg tablet,delayed release (DR/EC) 40 mg PO DAILY 30 Days Qty: 30 2RF lansoprazole 30 mg capsule,delayed release(DR/EC) See Rx Instructions .ROUTE .COMPLEX Qty: 60 2RF Hold Instructions: Resume on 05/15/21. Dose Instruction: Take 1 capsule by mouth twice daily Rx Instructions: Take 1 capsule by mouth twice daily amoxicillin 500 mg capsule 1,000 mg PO BID 14 Days Qty: 56 0RF clarithromycin 500 mg tablet 500 mg PO BID 14 Days Qty: 28 0RF cetirizine 10 mg tablet 10 mg PO DAILY 0RF aspirin 81 mg Tablet,Delayed Release (Dr/Ec) 81 mg PO DAILY 0RF meloxicam 15 mg tablet 15 mg PO DAILY 0RF Alive Women's 50 Plus 120 mcg-150 mcg -37.5 mg Tablet,Chewable 1 tab PO DAILY 0RF Discharge Orders: Discharge ED (Routine); Ordered 06/29/21 Ordered By: Laurie Whalen Referrals: Aguila Castro MD [Primary Care Provider] - Coding Level of Care Code ED Volunteer Patient Representative for Chg Fwd Exam Detailed
[2021-06-29] MEDS: ketorolac 60 mg/2 mL INJ IM (13:24)
== END 2021-06-29 13:42 | disposition home or self-care (01) ==
PROVIDERS: Emergency Provider Physician Assistant; PCP Family Medicine Adult Medicine
DX: S89.91XA Unspecified injury of right lower leg, initial encounter (principal); X58.XXXA Exposure to other specified factors, initial encounter; M25.561 Pain in right knee; Z79.82 Long term (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 of aspirin
CPT/HCPCS: 73562; 96372; 99283; J1885

== ENCOUNTER → 2021-08-19 07:57 | Outpatient (BNVA) | payer MEDICARE, SELFPAY | PROVIDERS: PCP Family Medicine Adult Medicine; Visit Provider Nurse Practitioner Family | DX: M17.31 Unilateral post-traumatic osteoarthritis, right knee (principal); M25.561 Pain in right knee | CPT/HCPCS: 73560; 73565; 99204 ==

== ENCOUNTER → 2021-10-20 09:57 | Outpatient (BNVA) | payer MEDICARE, SELFPAY | PROVIDERS: PCP Family Medicine Adult Medicine; Visit Provider Orthopaedic Surgery | DX: M17.11 Unilateral primary osteoarthritis, right knee (principal) | CPT/HCPCS: 99213; 99214 ==

== ENCOUNTER → 2021-11-15 10:26 | Outpatient (BNVA) | payer MEDICARE, SELFPAY | PROVIDERS: PCP Family Medicine Adult Medicine; Visit Provider Nurse Practitioner Family | DX: J06.9 Acute upper respiratory infection, unspecified (principal) | CPT/HCPCS: 87426 ==

== ENCOUNTER 2021-12-07 14:05 | Emergency (ER) | payer MEDICARE, SELFPAY ==
[2021-12-07] VITALS (7 sets, daily range): BP systolic 129–158; BP diastolic 62–96; PULSE 79; RESP 16; TEMP 36.4; O2SAT 99–100; BMI 22.8
--- NOTE | 2021-12-07 16:23 | ED_ITS ---
HPI - Dizziness General: Chief Complaint: Dizziness Stated Complaint: Low Hemoglobin/lightheaded-sent by Time Seen by Provider: 12/07/21 16:22 History of Present Illness: HPI Narrative: Ms. Quach is a 56-year-old lady with significant past medical history of hereditary hemorrhagic telangiectasia resenting to the emergency department due to abnormal labs. She reports a 2-week history of increased headache and lightheadedness though she has noticed decreased nosebleeds and blood in stool which I guess is typical for her when her iron gets low. She has previously gotten iron supplementation and is on chronic daily iron. She was seen for preoperative evaluation and clearance by anesthesia today and referred to the emergency department due to low hemoglobin. Denies any active bleeding or bruising. Does have a recent history of COVID. Headaches are perhaps more pronounced than normal. Intensity symptoms is moderate. No other specific changes in health, exacerbating, or alleviating factors identified. 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 H/O esophagogastroduodenoscopy (05/01/21) cautery of 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 4 History of colonoscopy (06/03/20) Cautery of AVM History of eye surgery History of hip surgery History of knee surgery History of lung surgery 2009 Hx of brain surgery Hx of removal of ovary Social History Smoking and tobacco status: former smoker Alcohol intake: current Alcohol intake frequency: few times a week Marital status: Number of children: 1 Current occupational status: disabled Physical Exam Const: COMMON NORMALS: patient oriented x3 and alert GENERAL APPEARANCE: cooperative and well developed HENMT: COMMON NORMALS: normocephalic and atraumatic HEAD & SCALP: normocephalic and atraumatic THROAT: posterior oropharynx normal Eye: COMMON NORMALS: conjunctivae normal CONJUNCTIVA: Yes conjunctivae normal SCLERA: sclerae normal Neck/C-Spine: COMMON NORMALS: supple GENERAL: Yes trachea midline Resp: COMMON NORMALS: normal respiratory effort EFFORT & INSPECTION: Yes able to speak in complete sentences Cardio: COMMON NORMALS: regular rate and regular rhythm RATE: regular rate RHYTHM: regular rhythm GI: COMMON NORMALS: Soft to palpation PALPATION: Yes Soft to palpation and No Tenderness to palpation present (GI) Extremity: GENERAL: Yes normal exam except as noted and No edema Neuro: COMMON NORMALS: patient oriented x3, CN's II-XII intact bilaterally, moves all extremities, no focal motor deficits and no sensory deficits noted SENSORIUM/ORIENTATION: Yes alert and No Orientation impaired Psych: COMMON NORMALS: mental status grossly normal and Normal thought process present THOUGHT PROCESS: Normal thought process present Course Vital Signs: Vital signs: Vital Signs Temperature 97.5 F L 12/07/21 14:10 Pulse Rate 79 12/07/21 14:10 Respiratory Rate 16 12/07/21 14:10 Blood Pressure 153/81 12/07/21 18:00 Pulse Oximetry 99 12/07/21 17:00 Oxygen Delivery Me thod 12/07/21 14:10 MDM - Dizziness Medical Decision Making 56-year-old lady referred to the emergency department due to laboratory study abnormalities. Patient has complex past medical history of HHT. Nonfocal neurologic exam present. Laboratory studies notable for hemoglobin 7.5, no significant anabolic abnormalities requiring intervention in the ED. Head CT negative for acute intracranial hemorrhage or mass or other pathology to explain headaches/other reported neuro symptoms. I discussed the case with oncology. Patient can be seen in the outpatient setting for iron infusion and transfusion. I did discuss possibility of transfusion in the emergency department however patient is comfortable with outpatient follow-up. The results of ED evaluation were discussed with the patient including prescriptions and/or symptomatic cares (if applicable) including appropriate and responsible use, followup plan, and return precautions. The patient verbalized understanding and felt safe for discharge. Medical Records I reviewed the patient's medical records. Lab Data I reviewed the patient's lab results. Radiology Impressions Head CT 12/07/21 16:37 IMPRESSION: 1. No acute intracranial abnormality. Laboratory Results Blood Type O Negative 12/07/21 16:25 Rho(D) Type Negative 12/07/21 16:25 Antibody Screen Negative 12/07/21 16:25 Discharge Plan Discharge Patient Disposition: Home Clinical Impression: Signs and symptoms of anemia, Hereditary hemorrhagic telangiectasia, Iron deficiency anemia Condition: Stable Prescriptions: No Action aspirin 81 mg Tablet,Delayed Release (Dr/Ec) 81 mg PO DAILY Alive Women's 50 Plus Gummy 120 mcg-150 mcg -37.5 mg Tablet,Chewable 1 tab PO DAILY trazodone 50 mg tablet 50 mg PO BEDTIME levothyroxine 50 mcg tablet 50 mcg PO DAILY cetirizine 10 mg tablet 10 mg PO DAILY pantoprazole 40 mg tablet,delayed release (DR/EC) 40 mg PO DAILY montelukast 10 mg tablet 10 mg PO DAILY PRN (Reason: Allergy Symptoms) ondansetron 4 mg tablet,disintegrating 4 mg PO Q8H PRN (Reason: nausea and vomiting) Qty: 15 0RF Paxlovid (EUA) 300 mg (150 mg x 2)-100 mg tablets,dose pack See Rx Instructions .ROUTE .COMPLEX Qty: 30 0RF Rx Instructions: orally per package directions Discharge Orders: Discharge ED (Routine); Ordered 12/07/21 Ordered By: Mayo Joshi Referrals: Aguila Castro MD [Primary Care Provider] - Discharge Diet: Usual diet Discharge Activity: Increase activity as tolerated Patient Instructions: Iron Rich Diet (ED), Anemia (ED) Activity Restrictions/Additional Instructions: Thank you for visiting the emergency department. You were seen and evaluated for abnormal laboratory studies. In discussion with Dr. Leger I believe it is reasonable to discharge you for follow-up tomorrow with Dr. Leger's office. Please call his office in the morning and you should be scheduled tomorrow for iron infusion and possible transfusion. Please return to the emergency department for bleeding, unexplained bruising, chest pain, shortness of breath, fainting, or anything else that you are concerned about a feel needs emergency department evaluation. Coding Level of Care Code ED Jacquard Lace Weaver for Irma Montanez
--- NOTE | 2021-12-07 16:37 | CTR_ITS ---
PROCEDURE INFORMATION: Exam: CT Head Without Contrast Exam date and time: 12/07/2021 4:47 PM Age: 56 years old Clinical indication: Prior surgery; Surgery type: Aneurysm x 2; Patient HX: Patient presents from home via pov with C/O dizziness. Patient states she was at a pre-op interview and was told she had a hgb of 7.5 today. ; Additional info: Dizzy TECHNIQUE: Imaging protocol: Computed tomography of the head without contrast. Radiation optimization: All CT scans at this facility use at least one of these dose optimization techniques: automated exposure control; mA and/or kV adjustment per patient size (includes targeted exams where dose is matched to clinical indication); or iterative reconstruction. COMPARISON: No relevant prior studies available. RADIATION DOSE METRICS: Total DLP (mGy-cm): 1015.68 FINDINGS: Brain: Metal clip in the right sylvian fissure region. Mild cortical volume loss. Very mild hypodensities in supratentorial periventricular and subcortical white matter, consistent with microangiopathy. No intracranial hemorrhage. Small focus of encephalomalacia in the right superior cerebellar vermis. Cerebral ventricles: No ventriculomegaly. Paranasal sinuses: Visualized sinuses are unremarkable. No fluid levels. Mastoid air cells: Visualized mastoid air cells are well aerated. Bones/joints: Right temporal craniotomy defect with metal plates and screws. No acute fracture. Soft tissues: Unremarkable. Vasculature: No hyperdense artery. CT/CT head wo con* [id number] IMPRESSION: 1. No acute intracranial abnormality.
== END 2021-12-07 18:06 | disposition home or self-care (01) ==
PROVIDERS: Emergency Provider Emergency Medicine; PCP Family Medicine Adult Medicine
DX: D50.9 Iron deficiency anemia, unspecified (principal); I78.0 Hereditary hemorrhagic telangiectasia; Z79.82 Long term (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 of aspirin; Z86.73 Personal history of transient ischemic attack (TIA), and cerebral infarction without residual deficits; Z87.891 Personal history of nicotine dependence; D64.9 Anemia, unspecified
CPT/HCPCS: 36415; 70450; 80053; 82607; 82728; 83540; 83550; 85025; 86850; 86900; 99284

== ENCOUNTER 2021-12-11 12:44 | Emergency (ER) | payer MEDICARE, SELFPAY ==
[2021-12-11 12:51] VITALS: BP 131/66; PULSE 98; RESP 16; TEMP 37; O2SAT 99; BMI 22.8
--- NOTE | 2021-12-11 13:00 | W.ED.GENADLT ---
HPI - General Adult General: Chief complaint: General Medical Stated complaint: GENERAL WEAKNESS Time Seen by Provider: 12/11/21 13:00 History of Present Illness: Ms. Quach is a 56-year-old lady with history of HHT who presents to the emergency department due to generalized illness. She reports receiving transfusion of blood and iron 3 days ago. Does have a history of similar reactions to iron however they typically resolve. She endorses headache, generalized malaise, inability to get warm, nonitching and nonvesicular rash. Intensity symptoms is moderate to severe. Course has persisted. Tried [id number] medications without significant relief. No other specific changes in health, exacerbating, or alleviating factors identified. Onset (ago): day(s) Severity: severe Associated symptoms: Reports fevers/chills, headache(s), malaise, nausea, rash and vomiting Review of Systems General: Reports: 10 or more systems reviewed and unremarkable except in HPI and below Const: Reports: malaise GI: Reports: nausea and vomiting Skin/Breast: Reports: rash Neuro: Reports: headache(s) PFSH ED PFSH: Medical History Anemia Anterior cruciate ligament complete tear CVA (cerebral vascular accident) GERD (gastroesophageal reflux disease) Helicobacter pylori gastritis Hereditary hemorrhagic telangiectasia Hypothyroid Left axillary pain Surgical History H/O esophagogastroduodenoscopy (06/03/20) 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 H/O esophagogastroduodenoscopy (05/01/21) cautery of 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 4 History of colonoscopy (06/03/20) Cautery of AVM History of eye surgery History of hip surgery History of knee surgery History of lung surgery 2009 Hx of brain surgery Hx of removal of ovary Social History Smoking and tobacco status: former smoker Alcohol intake: current Alcohol intake frequency: few times a week Marital status: Number of children: 1 Current occupational status: disabled Physical Exam Const: COMMON NORMALS: patient oriented x3 and alert GENERAL APPEARANCE: cooperative and well developed HENMT: COMMON NORMALS: normocephalic and atraumatic HEAD & SCALP: normocephalic and atraumatic Eye: COMMON NORMALS: conjunctivae normal CONJUNCTIVA: Yes conjunctivae normal SCLERA: sclerae normal Neck/C-Spine: COMMON NORMALS: supple GENERAL: Yes trachea midline Resp: COMMON NORMALS: clear to auscultation bilaterally EFFORT & INSPECTION: Yes able to speak in complete sentences AUSCULTATION: clear to auscultation bilaterally Cardio: COMMON NORMALS: regular rate and regular rhythm RATE: regular rate RHYTHM: regular rhythm GI: COMMON NORMALS: Soft to palpation PALPATION: Yes Soft to palpation and No Tenderness to palpation present (GI) Extremity: GENERAL: Yes normal exam except as noted and No edema Neuro: COMMON NORMALS: patient oriented x3, CN's II-XII intact bilaterally, moves all extremities, no focal motor deficits and no sensory deficits noted SENSORIUM/ORIENTATION: Yes alert and No Orientation impaired Psych: COMMON NORMALS: mental status grossly normal and Normal thought process present THOUGHT PROCESS: Normal thought process present Skin: NARRATIVE SKIN EXAM: Nonvesicular rash which appears macular and scattered about the abdomen Course ED course: - Patient was seen and evaluated by me at bedside - Patient placed on cardiac monitors, IV access obtained - Initial evaluation notable for exam as above. Nonfocal neurologic exam. Somewhat ill-appearing. - Labs personally interpreted by me. EKG shows sinus rhythm with nonspecific ST segment abnormalities. Similar to prior. No STEMI. - Fluids and headache treatment ordered - Labs notable for leukocytosis, anemia improved from previously likely secondary to transfusion. Metabolic panel without acute derangement. No urinary tract infection. Patient positive for COVID-19. - Imaging notable for no intracranial hemorrhage or mass. Given examination and duration of symptoms I do not feel that additional advanced imaging is required at this time. - Upon serial reexamination after treatment the patient was improved with resolution of headache with additional analgesia. Chills have also resolved. - Based on patient history, evaluation, and testing as interpreted the most likely cause of the patient's condition is COVID-19 versus side effect, which she has had previously, from iron infusion - The results of ED evaluation were discussed with the patient including prescriptions and/or symptomatic cares (if applicable) including appropriate and responsible use, followup plan, and return precautions. The patient verbalized understanding and felt safe for discharge. - Patient discharged in satisfactory condition. Note: Click bubbles or prepopulated flanagan in note writing are used for assistance with data collection and billing and are inherently more limited than narrative and other text portions of this note. Please use narrative for additional clinical history and defer to narrative/free test for any case of contradictory information. If information appears in only free text or click bubble it should be considered present or absent as reported. Please contact note principal technical writer for clarifications of clinical information or contradictory information. MDM is a brief summary, contradictory or erroneous seeming information should be clarified and full note should be reviewed. Vital Signs: Vital signs: Vital Signs Temperature 98.6 F 12/11/21 14:23 Pulse Rate 98 12/11/21 14:23 Respiratory Rate 18 12/11/21 16:03 Blood Pressure 132/78 12/11/21 17:54 Pulse Oximetry 96 12/11/21 17:54 Oxygen Delivery Me thod 12/11/21 16:18 MDM - General Adult Medical Decision Making 56-year-old lady with complex past medical history presenting with generalized symptoms. These are typical after iron infusion however for more severe and prolonged. Patient did have iron infusion 3 days ago. Patient found to have COVID-19 on PCR which may be contributing to symptoms. Patient is vitally satisfactory, not requiring oxygen, and improved after treatment. Satisfactory for outpatient management. Paxlovid discussed and patient wishes to proceed. Medical Records I reviewed the patient's medical records. Lab Data I reviewed the patient's lab results. : 12/11/21 14:14 12/11/21 14:14 Laboratory Results WBC 15.2 10^3/uL (4.0-10.0) H 12/11/21 14:14 RBC 4.74 10^6/uL (4.1-5.3) 12/11/21 14:14 Hgb 11.1 g/dL (11.5-15.3) L 12/11/21 14:14 Hct 37.5 % (37.0-47.0) 12/11/21 14:14 MCV 79.1 fl (81-99) L 12/11/21 14:14 MCH 23.4 pg (28.0-34.0) L 12/11/21 14:14 MCHC 29.6 g/dL (30.0-36.0) L 12/11/21 14:14 RDW 22.1 % (12.1-15.1) H 12/11/21 14:14 Plt Count 320 10^3/cmm (130-400) 12/11/21 14:14 MPV 10.4 fL (7.4-10.4) 12/11/21 14:14 Neut % (Auto) 74.3 % 12/11/21 14:14 Lymph % (Auto) 5.8 % 12/11/21 14:14 [place] % (Auto) 18.3 % 12/11/21 14:14 Eos % (Auto) 0.5 % 12/11/21 14:14 Baso % (Auto) 0.3 % 12/11/21 14:14 Neut # (Auto) 11.27 10^3/uL (1.8-7.7) H 12/11/21 14:14 Lymph # (Auto) 0.9 10^3/uL (0.8-4.8) 12/11/21 14:14 [place] # (Auto) 2.8 10^3/uL (0.2-0.9) H 12/11/21 14:14 Eos # (Auto) 0.1 10^3/uL (0.0-0.8) 12/11/21 14:14 Baso # (Auto) 0.0 10^3/uL (0.0-0.1) 12/11/21 14:14 Nucleated RBC % (auto) 0.3 % 12/11/21 14:14 Nucleated RBCs # 0.0 /100WBC 12/11/21 14:14 Sodium 136 mmol/L (136-145) 12/11/21 14:14 Potassium 3.7 mmol/L (3.5-5.1) 12/11/21 14:14 Chloride 101 mmol/L (98-107) 12/11/21 14:14 Carbon Dioxide 25 mmol/L (22-29) 12/11/21 14:14 Anion Gap 13.7 (5-19) 12/11/21 14:14 BUN 9 mg/dL (6-20) 12/11/21 14:14 Creatinine 0.8 mg/dL (0.5-0.9) 12/11/21 14:14 GFR Calculation 73.9 mL/min (90-130) L 12/11/21 14:14 Glucose 109 mg/dL (65-115) 12/11/21 14:14 Calculated Osmolality 281 mOsm/kg (285-295) L 12/11/21 14:14 Lactate 1.5 mmol/L (0.5-2.2) 12/11/21 14:14 Calcium 8.9 mg/dL (8.5-10.5) 12/11/21 14:14 Total Bilirubin 0.7 mg/dL (0.15-1.2) 12/11/21 14:14 AST 27 U/L (0-32) 12/11/21 14:14 ALT 30 U/L (0-33) 12/11/21 14:14 Alkaline Phosphatase 84 U/L (35-105) 12/11/21 14:14 Total Protein 7.6 g/dL (6.6-8.7) 12/11/21 14:14 Albumin 3.8 g/dL (3.5-5.2) 12/11/21 14:14 Globulin 3.8 g/dL (1.3-4.6) 12/11/21 14:14 Urine Color Yellow (Yellow) 12/11/21 16:41 Urine Appearance Clear (CLEAR) 12/11/21 16:41 Urine pH 6 (5-7) 12/11/21 16:41 Ur Specific [place] 1.015 (1.005-1.030) 12/11/21 16:41 Urine Protein Neg (Negative) 12/11/21 16:41 Urine Glucose (UA) Norm (Normal) 12/11/21 16:41 Urine Ketones Negative (Negative) 12/11/21 16:41 Urine Blood Neg (Negative) 12/11/21 16:41 Urine Nitrate Negative (Negative) 12/11/21 16:41 Urine Bilirubin Neg (Negative) 12/11/21 16:41 Urine Urobilinogen Norm mg/dL (Negative) 12/11/21 16:41 Ur Leukocyte Esterase Negative (Negative) 12/11/21 16:41 Nasal Influ A H1 2009 PCR Not detected (NOT DETECT) 12/11/21 14:27 Coronavirus 229E (PCR) Not detected (NOT DETECT) 12/11/21 14:27 Influenza A (H1) PCR Not detected (NOT DETECT) 12/11/21 14:27 Influenza A (H3) PCR Not detected (NOT DETECT) 12/11/21 14:27 Influenza Type A (PCR) Not detected (NOT DETECT) 12/11/21 14:27 Influenza Type B (PCR) Not detected (NOT DETECT) 12/11/21 14:27 SARS-CoV-2 (PCR) Detected (NOT DETECT) A 12/11/21 14:27 Discharge Plan Discharge Patient Disposition: Home Clinical Impression: COVID-19 Condition: Stable Prescriptions: New ondansetron 4 mg tablet,disintegrating 4 mg PO Q8H PRN (Reason: nausea and vomiting) Qty: 15 0RF Paxlovid (EUA) 300 mg (150 mg x 2)-100 mg tablets,dose pack See Rx Instructions .ROUTE .COMPLEX Qty: 30 0RF Rx Instructions: orally per package directions No Action aspirin 81 mg Tablet,Delayed Release (Dr/Ec) 81 mg PO DAILY Alive Women's 50 Plus Gummy 120 mcg-150 mcg -37.5 mg Tablet,Chewable 1 tab PO DAILY trazodone 50 mg tablet 50 mg PO BEDTIME levothyroxine 50 mcg tablet 50 mcg PO DAILY cetirizine 10 mg tablet 10 mg PO DAILY pantoprazole 40 mg tablet,delayed release (DR/EC) 40 mg PO DAILY montelukast 10 mg tablet 10 mg PO DAILY PRN (Reason: Allergy Symptoms) Discharge Orders: Discharge ED (Routine); Ordered 12/11/21 Ordered By: Mayo Joshi Referrals: Aguila Castro MD [Primary Care Provider] - Discharge Diet: Usual diet Discharge Activity: Increase activity as tolerated Patient Instructions: Nirmatrelvir/Ritonavir (By mouth), COVID-19 (Coronavirus Disease 2019) (ED) Activity Restrictions/Additional Instructions: Thank you for visiting the emergency department. You were seen evaluated for generalized illness. The exact cause of your symptoms is unclear though may be related to COVID-19. Please ensure that you are staying hydrated. Return to the emergency department for anything that you are concerned about a feel needs emergency department evaluation. Coding Level of Care Code ED [employer] Truck Driver for Irma Fwlucina Exam Comprehensive
--- NOTE | 2021-12-11 13:50 | ECG_ITS ---
[facility] Test Date: 2021-12-11 Pat Name: Arlene Quach Department: Room: Gender: Female [employer] T[employer]: : 1965 Requested By: Mayo Joshi Order Number: [id number] Erasto MD: Amber Martini M.D. Measurements Intervals [place] Rate: 92 P: 44 PA: 189 QRS: 32 QRSD: 92 T: 30 QT: 336 QTc: 416 Interpretive Statements SINUS RHYTHM Compared to ECG 09/17/2020 15:07:40 No significant changes Electronically Signed On 12-11-2021 16:53:44 CDT by Amber Martini M.D. [id number]
[2021-12-11] MEDS: diphenhydrAMINE 50 mg/mL SDV 1mL 12.5 MG IVP (14:20)
[2021-12-11] MEDS: ketorolac 30 mg/mL INJ 15 MG IVP (14:20)
[2021-12-11] MEDS: metoclopramide 5 mg/mL SDV 2 mL 10 MG IVP (14:21)
[2021-12-11 14:23] VITALS: BP 131/66; PULSE 98; RESP 16; TEMP 37; O2SAT 99
[2021-12-11 14:25] LABS: Basophils % 0.3 %; Eosinophils # 0.1 10^3/uL (0.0-0.8); Eosinophils % 0.5 %; Hematocrit 37.5 % (37.0-47.0); Hemoglobin 11.1 g/dL (11.5-15.3); Lymphocytes # 0.9 10^3/uL (0.8-4.8); Lymphocytes % 5.8 %; Mean Corpuscular HGB Conc 29.6 g/dL (30.0-36.0); Mean Corpuscular Hemoglobin 23.4 pg (28.0-34.0); Mean Corpuscular Volume 79.1 fl (81-99); Mean Platelet Volume 10.4 fL (7.4-10.4); Monocytes # 2.8 10^3/uL (0.2-0.9); Monocytes % 18.3 %; Neutrophils # 11.27 10^3/uL (1.8-7.7); Neutrophils % 74.3 %; Nucleated Red Blood Cells % 0.3 %; Platelet Count 320 10^3/cmm (130-400); Red Blood Count 4.74 10^6/uL (4.1-5.3); Red Cell Distribution Width 22.1 % (12.1-15.1); White Blood Count 15.2 10^3/uL (4.0-10.0)
[2021-12-11 14:42] LABS: Lactate (Lactic Acid level) 1.5 mmol/L (0.5-2.2)
[2021-12-11 14:51] LABS: Alanine Aminotransferase 30 U/L (0-33); Albumin Level 3.8 g/dL (3.5-5.2); Alkaline Phosphatase 84 U/L (35-105); Anion Gap 13.7 (5-19); Aspartate Amino Transferase 27 U/L (0-32); Blood Urea Nitrogen 9 mg/dL (6-20); Calcium 8.9 mg/dL (8.5-10.5); Carbon Dioxide 25 mmol/L (22-29); Chloride 101 mmol/L (98-107); Globulin 3.8 g/dL (1.3-4.6); Glomerular Filtration Rate 73.9 mL/min (90-130); Glucose 109 mg/dL (65-115); Osmolality Calculated 281 mOsm/kg (285-295); Potassium 3.7 mmol/L (3.5-5.1); Sodium 136 mmol/L (136-145); Total Bilirubin 0.7 mg/dL (0.15-1.2); Total Protein 7.6 g/dL (6.6-8.7)
[2021-12-11] MEDS: sodium chloride 0.9% 1,000 ML 999 ML IV (14:54)
[2021-12-11 16:03] VITALS: RESP 18
[2021-12-11] MEDS: morphine 4 mg/mL SDV 1 mL IVP (16:03)
[2021-12-11 16:18] VITALS: BP 132/78; O2SAT 96
[2021-12-11 16:53] LABS: Adenovirus Not Detected (NOT DETECT); Chlamydia Pneumoniae Not Detected (NOT DETECT); Human Metapneumovirus Not Detected (NOT DETECT); Human Rhinovirus/Enterovirus Not Detected (NOT DETECT); Influenza A Not Detected (NOT DETECT); Influenza A H1 Not Detected (NOT DETECT); Influenza A H1-2009 Not Detected (NOT DETECT); Influenza A H3 Not Detected (NOT DETECT); Influenza B Not Detected (NOT DETECT); Mycoplasma Pneumoniae Not Detected (NOT DETECT); Parainfluenza Virus Type 1 Not Detected (NOT DETECT); Parainfluenza Virus Type 2 Not Detected (NOT DETECT); Parainfluenza Virus Type 3 Not Detected (NOT DETECT); Parainfluenza Virus Type 4 Not Detected (NOT DETECT); Respiratory Syncytial Virus A Not Detected (NOT DETECT); Respiratory Syncytial Virus B Not Detected (NOT DETECT); SARS-COV-2 Detected (NOT DETECT)
[2021-12-11 16:54] LABS: Coronavirus 229E,HKU1,NL63,OC4 Not Detected (NOT DETECT); Results from GENMARK
[2021-12-11 16:57] LABS: Add Urine Microscopic? NO; Charge for UA Resulting for Rev
[2021-12-11 17:08] LABS: Bilirubin Urine Neg (Negative); Blood Urine Neg (Negative); Glucose Urine UA Norm (Normal); Ketones Urine Negative (Negative); Nitrate Urine Negative (Negative); Protein Urine Neg (Negative); Specific Gravity, Urine 1.015 (1.005-1.030); Urine Appearance Clear (CLEAR); Urine Color Yellow (Yellow); pH Urine 6 (5-7)
[2021-12-11 17:09] LABS: Leukocyte Esterase Urine Negative (Negative); Urobilinogen Urine Norm (Negative)
[2021-12-11 17:54] VITALS: BP 132/78; O2SAT 96
== END 2021-12-11 17:54 | disposition home or self-care (01) ==
PROVIDERS: Emergency Provider Emergency Medicine; PCP Family Medicine Adult Medicine
DX: U07.1 COVID-19 (principal); Z87.891 Personal history of nicotine dependence; Z79.82 Long term (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 of aspirin; Z79.891 Long term (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 of opiate analgesic
CPT/HCPCS: 36415; 80053; 81003; 83605; 85025; 87040; 87631; 87635; 93005; 96361; 96374; 96375; 99284; J1200; J1885; J2270; J2765; J7030

== ENCOUNTER 2021-12-15 14:01 | Oncology outpatient (recurring) (ONCR) | payer MEDICARE, SELFPAY ==
[2021-12-07 13:02] LABS: Basophils # 0.1 10^3/uL (0.0-0.1); Basophils % 0.7 %; Eosinophils % 0.6 %; Hemoglobin 7.5 g/dL (11.5-15.3); Lymphocytes # 1.7 10^3/uL (0.8-4.8); Lymphocytes % 25.3 %; Mean Corpuscular HGB Conc 27.8 g/dL (30.0-36.0); Mean Corpuscular Hemoglobin 20.4 pg (28.0-34.0); Mean Corpuscular Volume 73.4 fl (81-99); Mean Platelet Volume 11.3 fL (7.4-10.4); Monocytes # 0.9 10^3/uL (0.2-0.9); Monocytes % 13.7 %; Neutrophils # 4.06 10^3/uL (1.8-7.7); Neutrophils % 59.6 %; Nucleated Red Blood Cells % 0.4 %; Platelet Count 385 10^3/cmm (130-400); Red Blood Count 3.68 10^6/uL (4.1-5.3); Red Cell Distribution Width 18.3 % (12.1-15.1); White Blood Count 6.8 10^3/uL (4.0-10.0)
[2021-12-07 13:33] LABS: Alanine Aminotransferase 29 U/L (0-33); Alkaline Phosphatase 76 U/L (35-105); Anion Gap 11.8 (5-19); Aspartate Amino Transferase 32 U/L (0-32); Blood Urea Nitrogen 8 mg/dL (6-20); Calcium 8.8 mg/dL (8.5-10.5); Carbon Dioxide 25 mmol/L (22-29); Chloride 103 mmol/L (98-107); Ferritin 7 ng/mL (15-150); Glomerular Filtration Rate 64.5 mL/min (90-130); Glucose 195 mg/dL (65-115); Iron 9 ug/dL (37-145); Osmolality Calculated 286 mOsm/kg (285-295); Percent Saturation 2.3 % (20-50); Potassium 3.8 mmol/L (3.5-5.1); Sodium 136 mmol/L (136-145); Total Bilirubin 0.2 mg/dL (0.15-1.2); Total Iron Binding Capacity 377 mcg/dl; Unsaturated Iron Binding 368 ug/dL (112-347)
[2021-12-07 13:47] LABS: Vitamin B12 435 pg/mL (232-1245)
[2021-12-08] VITALS (13 sets, daily range): BP systolic 112–130; BP diastolic 70–82; PULSE 68–78; RESP 16; TEMP 35.9–36.6; O2SAT 97–99
[2021-12-08 09:29] LABS: Basophils # 0.1 10^3/uL (0.0-0.1); Basophils % 1.2 %; Eosinophils % 0.8 %; Hematocrit 25.5 % (37.0-47.0); Hemoglobin 7.2 g/dL (11.5-15.3); Lymphocytes # 1.4 10^3/uL (0.8-4.8); Lymphocytes % 27.3 %; Mean Corpuscular HGB Conc 28.2 g/dL (30.0-36.0); Mean Corpuscular Hemoglobin 20.8 pg (28.0-34.0); Mean Corpuscular Volume 73.7 fl (81-99); Mean Platelet Volume 11.4 fL (7.4-10.4); Monocytes # 0.7 10^3/uL (0.2-0.9); Monocytes % 14.3 %; Neutrophils # 2.88 10^3/uL (1.8-7.7); Neutrophils % 55.8 %; Nucleated Red Blood Cells % 0.6 %; Platelet Count 358 10^3/cmm (130-400); Red Blood Count 3.46 10^6/uL (4.1-5.3); Red Cell Distribution Width 18.1 % (12.1-15.1); White Blood Count 5.2 10^3/uL (4.0-10.0)
[2021-12-08] MEDS: acetaminophen 325 mg Tablet 650 MG PO (10:03)
[2021-12-08] MEDS: diphenhydrAMINE 25 mg Capsule PO (10:03)
[2021-12-08] MEDS: sodium chloride 0.9% 100 mL Bag 250 ML IV (10:04)
[2021-12-08] MEDS: FUROsemide 10 mg/mL SDV 2mL 20 MG IVP (12:45)
[2021-12-08] MEDS: ferric carboxy (IVPB) 750 MG in sodium chloride 0.9% (100 ml) 100 ML 345 MG IV (14:20)
[2021-12-15] MEDS: dexamethasone 10 mg/mL INJ IVP (14:39)
[2021-12-15] MEDS: ondansetron 2 mg/ML SDV 2 mL 4 MG IVP (14:40)
[2021-12-15] MEDS: ferric carboxy (IVPB) 750 MG in sodium chloride 0.9% (100 ml) 100 ML 345 MG IV (14:50)
[2021-12-15 15:26] LABS: Basophils # 0.1 10^3/uL (0.0-0.1); Basophils % 0.9 %; Eosinophils # 0.1 10^3/uL (0.0-0.8); Eosinophils % 1.5 %; Hematocrit 35.4 % (37.0-47.0); Hemoglobin 10.7 g/dL (11.5-15.3); Lymphocytes # 2.5 10^3/uL (0.8-4.8); Lymphocytes % 37.6 %; Mean Corpuscular HGB Conc 30.2 g/dL (30.0-36.0); Mean Corpuscular Hemoglobin 23.6 pg (28.0-34.0); Mean Corpuscular Volume 78.1 fl (81-99); Mean Platelet Volume 11.1 fL (7.4-10.4); Monocytes # 0.7 10^3/uL (0.2-0.9); Monocytes % 10.3 %; Neutrophils # 3.31 10^3/uL (1.8-7.7); Neutrophils % 49.1 %; Nucleated Red Blood Cells % 0 %; Platelet Count 335 10^3/cmm (130-400); Red Blood Count 4.53 10^6/uL (4.1-5.3); Red Cell Distribution Width 25.1 % (12.1-15.1); White Blood Count 6.7 10^3/uL (4.0-10.0)
== END 2021-12-21 23:59 | disposition home or self-care (01) ==
PROVIDERS: PCP Family Medicine Adult Medicine; Visit Provider Internal Medicine Medical Oncology
DX: I78.0 Hereditary hemorrhagic telangiectasia (principal); D64.9 Anemia, unspecified; Z79.52 Long term (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 of systemic steroids
CPT/HCPCS: 36415; 36430; 80053; 82607; 82728; 83540; 83550; 85025; 86850; 86900; 86920; 96365; 96375; J1100; J1439; J1940; J2405; P9016

== ENCOUNTER 2021-12-18 16:21 | Outpatient (CLI) | payer MEDICARE, SELFPAY ==
--- NOTE | 2021-12-18 16:00 | CT_ITS ---
WS: [id number] CT RIGHT knee, noncontrast HISTORY: operative planning TECHNIQUE: Protocol for [facility] total knee replacement has been obtained. This includes axial imaging th rough the same side RIGHT hip, RIGHT knee and RIGHT ankle. DLP: 969.58 mGy.cm COMPARISON: 08/19/2021 radiographs Mild osteophytic ridging and joint space narrowing at the RIGHT hip. No destructive bone lesion. Mode rate joint space narrowing at the knee with small osseous fragments. There are tracks from prior ORIF along the tibial plateau. Normal alignment RIGHT ankle. CT/CT knee RT [facility] IMPRESSION: CT imaging provided for [facility] robotic total knee replacement.
--- NOTE | 2021-12-18 16:30 | CT_ITS ---
WS: [id number] CT RIGHT knee, noncontrast HISTORY: operative planning TECHNIQUE: Protocol for [facility] total knee replacement has been obtained. This includes axial imaging th rough the same side RIGHT hip, RIGHT knee and RIGHT ankle. DLP: 969.58 mGy.cm COMPARISON: 08/19/2021 radiographs Mild osteophytic ridging and joint space narrowing at the RIGHT hip. No destructive bone lesion. Mode rate joint space narrowing at the knee with small osseous fragments. There are tracks from prior ORIF along the tibial plateau. Normal alignment RIGHT ankle.
== END 2021-12-18 16:22 | disposition home or self-care (01) ==
LOC: RAD 16:22
PROVIDERS: PCP Family Medicine Adult Medicine; Visit Provider Orthopaedic Surgery
DX: M17.11 Unilateral primary osteoarthritis, right knee (principal)
CPT/HCPCS: 73700

== ENCOUNTER 2021-12-21 14:36 | Observation (INO) | payer MEDICARE, SELFPAY ==
[2021-12-07 13:22] VITALS: BMI 22.5
--- NOTE | 2021-12-07 13:38 | ANES.PREANE2 ---
Pre-Anesthetic Assessment Height/Weight: Height 1.77 m Weight 70.307 kg Preop Diagnosis: upper gi symptoms Operation Date: 12/21/21 07:00 Proposed Procedures p Right Total Knee Arthroplasty 81097,M17.11(Right) - Keith Epps MD Familial anesthetic complications: None Social No alcohol and No tobacco Exam alert, oriented x 3, clear to auscultation bilaterally and regular rate & rhythm Airway Mallampati: Class II Dentition: false Pulmonary Hx PE w/ coils in lung per patient CV/HEM Anemia Hereditary hemorrhagic telangiectasia (AVM malformations - all over the place, tongue, lungs, face, intestines) - ? spinal (may be malformations present in area of spinal GI Gastroesophageal Reflux Disease Metabolic Thyroid Disease Neuropsych Cerebrovascular Accident (2007 (memory loss)) L and R brain aneurysm - s/p radiation, craniotomy for L brain aneursym Never had to have blood tranfusions d/t her HHT though Anesthetic Plan ASA status: 3 Anesthesia: Choice Other: We will do general anesthesia d/t risk of AVMs near spinal cord Risk of > 500 ml blood loss (7ml/kg in children): No Other Pertinent Information Patient Hgb 7.5 and patient states she's been sleeping for 2 days, feels very fatigued, seeing white spots and lightheaded and dizzy. Instructed patient to go to ER now Medications/Allergies Home Medications Medication Instructions Recorded Confirmed Last Taken Type aspirin 81 mg tablet,delayed 81 mg PO DAILY 06/02/20 12/07/21 04/30/21 History release [id number] 120 mcg-lutein 1 tab PO DAILY 05/01/21 12/07/21 04/30/21 History 150 mcg-herb 37.5 mg chewable tablet (Alive Women's 50 Plus Gummy) montelukast 10 mg tablet See Rx Instructions .Route 08/06/21 12/07/21 Unknown Rx .COMPLEX #30 tabs trazodone 50 mg tablet See Rx Instructions .Route 08/28/21 12/07/21 Unknown Rx .COMPLEX #30 tabs cetirizine 10 mg tablet See Rx Instructions .Route 09/01/21 12/07/21 Unknown Rx .COMPLEX #90 tabs levothyroxine 50 mcg tablet See Rx Instructions .Route 11/23/21 12/07/21 Unknown Rx .COMPLEX #90 tabs Allergies Allergy/AdvReac Type Severity Reaction Status Date / Time Sulfa (Sulfonamide Allergy ALGY-Rash Verified 12/07/21 13:15 Antibiotics) [facility] Anesthesia Medical History Anemia Anterior cruciate ligament complete tear CVA (cerebral vascular accident) GERD (gastroesophageal reflux disease) Helicobacter pylori gastritis Hereditary hemorrhagic telangiectasia Hypothyroid Left axillary pain Surgical History H/O esophagogastroduodenoscopy (06/03/20) 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 H/O esophagogastroduodenoscopy (05/01/21) cautery of 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 4 History of colonoscopy (06/03/20) Cautery of AVM History of eye surgery History of hip surgery History of knee surgery History of lung surgery 2008 Hx of brain surgery Hx of removal of ovary Social History (Updated 10/20/21 @ 10:09 by Yoni Lazo LPN) Smoking and tobacco status: former smoker Alcohol intake: current Alcohol intake frequency: few times a week Marital status: Number of children: 1 Current occupational status: disabled Data Anesthesia Cardiac Studies: No Data to Display
[2021-12-21] VITALS (27 sets, daily range): BP systolic 91–140; BP diastolic 51–79; PULSE 51–91; RESP 10–22; TEMP 36.4–36.8; O2SAT 92–99; BMI 25.5
[2021-12-21] MEDS: gabapentin 300 mg Capsule PO ×2 (09:04→16:59)
[2021-12-21] MEDS: acetaminophen 500 mg Tablet 1000 MG PO ×2 (09:04→16:58)
[2021-12-21] MEDS: oxyCODONE 20 mg ER (12 HR) Tablet PO (09:04)
[2021-12-21 09:05] LABS: Basophils % 0.4 %; Eosinophils # 0.1 10^3/uL (0.0-0.8); Eosinophils % 0.5 %; Hematocrit 37.7 % (37.0-47.0); Hemoglobin 11.6 g/dL (11.5-15.3); Lymphocytes # 2.9 10^3/uL (0.8-4.8); Lymphocytes % 29.6 %; Mean Corpuscular HGB Conc 30.8 g/dL (30.0-36.0); Mean Corpuscular Hemoglobin 25.2 pg (28.0-34.0); Mean Platelet Volume 10.8 fL (7.4-10.4); Monocytes # 0.8 10^3/uL (0.2-0.9); Monocytes % 7.9 %; Neutrophils # 5.74 10^3/uL (1.8-7.7); Neutrophils % 58.7 %; Nucleated Red Blood Cells # 0.1 /100WBC; Nucleated Red Blood Cells % 0.5 %; Platelet Count 298 10^3/cmm (130-400); Red Cell Distribution Width 28.9 % (12.1-15.1); White Blood Count 9.8 10^3/uL (4.0-10.0)
[2021-12-21] MEDS: sodium chloride 0.9% 1,000 ML 30 ML IV (09:20)
[2021-12-21] MEDS: midazolam 1 mg/mL INJ 2 mL 2 MG IVP (09:21)
--- NOTE | 2021-12-21 09:32 | P.ANESUD_ITS ---
Pre-Anesthetic Update Pre-Anesthetic Assessment: Date of Surgery/Procedure: 12/21/21 Preop Karissa gnosis: Osteoarthritis right knee Proposed Procedure: Operation Date: 12/21/21 10:10 Proposed Procedures p Right Total Knee Arthroplasty 09814,M17.11(Right) - Keith Epps MD Any changes to Pre-Anesthetic Assessment?: Yes Changes from Pre-Anesthetic Assessment: received blood and iron transfusions Last Intake: Intake Last Liquid Date 12/20/21 Last Liquid Time 20:00 Last Solid Date 12/20/21 Last Solid Time 19:00 Labs Last 48hrs: Short CBC 12/21/21 Range/Units 08:50 WBC 9.8 (4.0-10.0) 10^3/ uL Hgb 11.6 (11.5-15.3) g/dL Hct 37.7 (37.0-47.0) % MCV 82.0 (81-99) fl Plt Count 298 (130-400) 10^3/c mm Neut % (Auto) 58.7 % Neut # (Auto) 5.74 (1.8-7.7) 10^3/u L Vitals: Temperature 97.9 F 12/21/21 08:31 Temperature Source Temporal Artery S can 12/21/21 08:31 Pulse Rate 63 12/21/21 08:31 Pulse Rhythm 12/21/21 08:31 Pulse Strength 3+ Normal 12/21/21 08:31 Respiratory Rate 18 12/21/21 08:31 Blood Pressure 140/68 12/21/21 08:31 Blood Pressure Ariana n 92 12/21/21 08:31 Pulse Oximetry 96 12/21/21 08:31 Oxygen Delivery Me thod 12/21/21 08:31 Exam: Pre-Anes Outpt Exam: alert, oriented x 3, clear to auscultation bilaterally and regular rate & rhythm Cardiac Studies: No Data to Display
--- NOTE | 2021-12-21 09:32 | ANES.PROC ---
Anesthesia Procedures Procedure/Date: 12/21/21 Nerve Block ^: Nerve Block 1: Main Anesthesia: general anesthesia Time Out Performed: Yes Consent: requested by attending/covering physician, from patient, risks and benefits reviewed and patient agrees to proceed Nerve block location: adductor canal (R) Anesthesia monitors applied: pulse oximetry, EKG, BP cuff and oxygen Nerve block position: semi sitting Anesthetic Used: ropivicaine 0.5% (30 ml) and with decadron (4 mg) Ultrasound used to: recognize landmarks and visualize and ID femerol nerve Nerve Stimulator Used?: No Interscalene/Femoral BLK: 4 stimuplex 21 g needle used for position and inplane approach, visualize local anesthetic spread and no vascular puncture identified Injection: neg aspiration of heme Patient Tolerated Procedure: well and no complications Complications: none Additional Comments: 2 mg versed
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
[2021-12-21] MEDS: ceFAZolin 2,000 MG in sodium chloride 0.9% (plus) 50 ML 100 MG IV ×2 (10:22→16:59)
[2021-12-21] MEDS: tranexamic acid 1,000 mg/10mL SDV 1000 MG XX (10:54)
[2021-12-21] MEDS: ketorolac 30 mg/mL INJ XX (11:03)
[2021-12-21] MEDS: tranexamic acid 1,000 mg/10mL SDV 1000 MG IV (11:03)
[2021-12-21] MEDS: EPINEPHrine 1 mg/mL INJ XX (11:04)
--- NOTE | 2021-12-21 12:36 | XR_ITS ---
WS: [id number] RIGHT KNEE 2 VIEWS AP and cross table lateral imaging is submitted. HISTORY: Right Total Knee arthroplasty. COMPARISON: 08/19/2021 Total knee replacement prosthetic devices are in good position and alignment. Normal position of the patella. Posterior patella resurfacing changes. Numerous postsurgical sutures are noted over the ant erior knee and there are normal postoperative changes in the soft tissues consistent with air, blood and edema. No complications are evident. Prior post hardware tracks are noted through the distal femo ral diaphysis and proximal tibia. XR/XR knee RT 1-2V [id number] IMPRESSION: Satisfactory appearance of the recent RIGHT knee arthroplasty.
--- NOTE | 2021-12-21 12:37 | PM.OP ---
Operative Report Date of procedure: December 21, 2021 Pre-op diagnosis: Preop Diagnosis Osteoarthritis right knee Post-op diagnosis: same Post-op diagnosis: Same Post-op findings: Same Procedure done: Right total knee arthroplasty Implants: Jenna Triathalon total knee arthroplasty components were used includin) Size 5 triathalon cruciate retaining femoral component 2) Size 5 Tritanium tibial component 3) Size 5/13 mm thickness CS tibial bearing insert Pathology: none sent Surgeon: Keith Epps Linen Room Attendant: Rizwan Murrell Linen Room Attendant: The nurse practitioner the nurse practitioner assisted with critical portions of the case including positioning, draping, exposure, component implantation, closure and dressing application and is present through the entirety of the case. Anesthesia: Nerve Block (Spinal, adductor canal block) Estimated blood loss (mL): 250 Findings: The patient eburnated bone over the lateral femoral condyle. She had minimal patellar wear. She had 13 degrees of hyperextension preoperatively. Condition: stable Disposition: PACU Procedure: The patient was taken to the operating room. Patient was given 1 g of tranexamic acid and 2 g of Ancef. The above anesthesia provided by the anesthesia service. A timeout was performed. The patient was prepped and draped in the usual fashion with the lower extremity exposed. A anterior incision was made, midline, from a point proximal to the patella to the distal tibial tubercle. The knee was entered through a medial parapatellar approach. The patella could be displaced laterally and the knee flexed. The patellar fat pad was resected to provide better visibility. Retractors were placed medially and laterally adjacent to the tibial plateau. At a point approximately 8 cm above the patella, 2 small incisions were made with a scalpel blade and 2 long threaded pins were placed into the anterior medial femur engaging both cortices. The femoral arrays were placed over these pins and secured. At a point 8 cm distal to the tibial tubercle. 2 shorter bicortical threaded pins were placed across the anterior medial tibia and the tibial arrays placed. A checkpoint was made just proximal and medial to the medial femoral condyle and just medial to the tibial plateau. Small osteotomes were placed in the joint in both flexion and extension to determine ligamentous laxity. The femoral component was placed in slight internal rotation. The femur was moved moved distal to create 2 mm tightness in extension to accommodate the flexion contracture.. The LIA robot was then introduced to the field and the femur and tibia cut in accordance with our plan. he Sepulveda and Nephew Fastseal was then used to provide hemostasis, particularly about the posterior capsule. A trial with the above components provided excellent stability and full range of motion. The femur was then prepared for the femoral pegs of the component in the tibia for the tibial component. The femur and tibia were then press-fit into place. An osteotome was used to remove the lateral 8 mm of the patella to minimize chances of later impingement. A neurectomy was accomplished circumferentially about the patella with electrocautery and lateral osteophytes removed. Surfaces were cleaned with a gentamicin solution. The femur and tibia were then press-fit into place. The posterior capsule and collateral ligaments were then injected with a solution of 100 mL of 0.2% ropivacaine, 1 mL of a 1:1000 epinephrine solution, 30 mg of Toradol, and 1 g of tranexamic acid. Final polyethylene component was then snapped into place into the tibia. The extensor retinaculum was closed with a running 1 Stratafix interrupted 1 Ethibond. The subcutaneous tissues were closed with 2-0 Vicryl and the skin was closed with a running 4-0 Stratafix. The wound was covered with a Dermabond Prineo dressing. It was covered with 4xrs and a compressive Tubigauze was applied. The patient was taken to recovery room in stable condition.
--- NOTE | 2021-12-21 13:04 | SUR.PHASEI ---
1237 PT TO PACU 4 PT AWAKE ALERT DENIES PAIN AND NAUSEA AT THIS TIME, VSS IV PATENT PT ON RA SATS 94% PT WITH NO DISTRESS, RT KNEE DRESSING D/I WITH FIRST ICE TO SITE DISTAL FOOT PINK WARM WITH STRONG REGULAR PULSE NOTED AND MARKED FOOT PUMP TO LT FOOT PT C/O OF NEED TO VOID, PT SESAY JUST REMOVED IN OR PRIOR TO ADMIT TO PACU, PT ASSISTED UP ON BEDPAN, PT VOIDED 50 ML YELLOW CLEAR URINE. IV TO RT HAND #18 PATENT TO NS 1000ML UP AT KVO RATE, PER GRAVITY, ID BRACELET TO LT WRIST PT ID'D WITH 2 IDENTIFIERS, PT MOVES BILAT FEET TO COMMAND. MONITOR SR TO SB WITH NO ECTOPY NOTED.
--- NOTE | 2021-12-21 13:47 | SUR.PHASEI ---
1340 PT TO OPS BAY 4 PT AWAKE ALERT STATES SHE HAS PAIN WITH MOVEMENT ONLY, PT SITTING WITH HOB AT 45 DEGREES PT EATING ICE CHIPS WITHOUT ASSIST, VSS KNEE DRESSING D/I DISTAL FOOT AND PULSE UNCHANGED , HANDOFF AT BEDSIDE TO YAHIR GLEZ, PT FAMILY TO ROOM PT AWAKE ALERT TALKATIVE WITH FAMILY AND TAKING SIPS OF SODA.
--- NOTE | 2021-12-21 13:53 | ANE.PACU2 ---
Inpatient post-anesthesia follow up: Airway intact: Yes Vital signs: Temperature 97.6 F Pulse Rate 66 Respiratory Rate 22 Blood Pressure 129/79 Pulse Oximetry 97 Oxygen Delivery Me thod Nasal Cannula Oxygen Flow Rate 2 Fraction of Inspir ed Oxygen Hydration adequate: Yes Nausea and vomiting: No Pain level: 1 Mental status: Baseline
[2021-12-21] MEDS: oxyCODONE 5 mg IR Tab/Cap PO (14:27)
--- NOTE | 2021-12-21 14:46 | SUR.PHASEI ---
PT AWAKE ALERT SEE PAIN MED GIVEN EARLIER BY OPS STAFF, PT TALKATIVE AND LAUGHING WITH FAMILY IN ROOM VSS , RT KNEE DRESSING D/I AND UNCHANGED REPORT CALLED TO FLOOR PT TO FLOOR PER BED WITH FAMILY AT BEDSIDE.
[2021-12-21] MEDS: sodium chloride 0.9% 1,000 ML 100 ML IV (15:57)
[2021-12-21] MEDS: morphine 4 mg/mL SDV 1 mL 2 MG IVP ×2 (16:59→20:21)
[2021-12-21] MEDS: CELEcoxib 200 mg Capsule PO (16:59)
[2021-12-21] MEDS: trazodone 50 mg Tablet PO (20:21)
[2021-12-22] VITALS (10 sets, daily range): BP systolic 110–117; BP diastolic 57–68; PULSE 55–78; RESP 16–18; TEMP 36.6–36.9; O2SAT 93–98
[2021-12-22] MEDS: acetaminophen 500 mg Tablet 1000 MG PO ×2 (00:12→08:29)
[2021-12-22] MEDS: sodium chloride 0.9% 1,000 ML 100 ML IV (00:13)
[2021-12-22] MEDS: oxyCODONE 5 mg IR Tab/Cap PO ×3 (00:16→08:29)
[2021-12-22] MEDS: ceFAZolin 2,000 MG in sodium chloride 0.9% (plus) 50 ML 100 MG IV (01:42)
[2021-12-22] MEDS: CELEcoxib 200 mg Capsule PO (04:11)
--- NOTE | 2021-12-22 07:20 | PM.DCS ---
Discharge Providers Date of Admission: 12/21/21 14:36 Date of Discharge: December 22, 2021 Attending Provider at Admission: Keith Sebastian MD Attending Provider at Discharge: Keith Sebastian MD Primary Care Provider: Aguila Castro MD Diagnoses at Discharge Discharge Diagnosis (1) Osteoarthritis of right knee: Status: Acute (2) Status post right knee replacement: Status: Acute Reason for Visit Reason for Visit: Unilateral primary osteoarthritis, right knee Hospital Course Hospital Course The patient tolerated surgery well. They remained hemodynamically stable. They was begun on aspirin and foot pumps for DVT prophylaxis. The patient was mobilized with therapy beginning the day of surgery and by the first postoperative day independent with the walker. As the pain was adequately controlled and they were fully mobile they were discharged home. Physical Exam Narrative: On the day of discharge the knee incision was clean. They had no drainage. There is minimal swelling in the thigh and knee and the calf. No distal neurovascular deficits were noted Urinary Catheter Management: Navarro: Cath Placed During This Visit: yes, but has since been removed by the nurse Urinary Catheter Date of Insertion: 12/21/21 Urinary Catheter Time of Insertion: 10:30 Date Urinary Catheter Removed: 12/21/21 Time Urinary Catheter Discontinued: 12:19 Discharge Data Studies Completed and Pending Completed Studies During Hospitalization Category Date Time Status XR knee RT 1-2V 18785 Routine Exams 12/21/21 12:36 Completed Radiology Impressions Knee X-Ray 12/21/21 12:36 IMPRESSION: Satisfactory appearance of the recent RIGHT knee arthroplasty. Laboratory Results WBC 9.8 10^3/uL (4.0-10.0) 12/21/21 08:50 RBC 4.60 10^6/uL (4.1-5.3) 12/21/21 08:50 Hgb 10.0 g/dL (11.5-15.3) L 12/22/21 02:50 Hct 37.7 % (37.0-47.0) 12/21/21 08:50 MCV 82.0 fl (81-99) 12/21/21 08:50 MCH 25.2 pg (28.0-34.0) L 12/21/21 08:50 MCHC 30.8 g/dL (30.0-36.0) 12/21/21 08:50 RDW 28.9 % (12.1-15.1) H 12/21/21 08:50 Plt Count 298 10^3/cmm (130-400) 12/21/21 08:50 MPV 10.8 fL (7.4-10.4) H 12/21/21 08:50 Neut % (Auto) 58.7 % 12/21/21 08:50 Lymph % (Auto) 29.6 % 12/21/21 08:50 Preston % (Auto) 7.9 % 12/21/21 08:50 Eos % (Auto) 0.5 % 12/21/21 08:50 Baso % (Auto) 0.4 % 12/21/21 08:50 Neut # (Auto) 5.74 10^3/uL (1.8-7.7) 12/21/21 08:50 Lymph # (Auto) 2.9 10^3/uL (0.8-4.8) 12/21/21 08:50 Preston # (Auto) 0.8 10^3/uL (0.2-0.9) 12/21/21 08:50 Eos # (Auto) 0.1 10^3/uL (0.0-0.8) 12/21/21 08:50 Baso # (Auto) 0.0 10^3/uL (0.0-0.1) 12/21/21 08:50 Nucleated RBC % (auto) 0.5 % 12/21/21 08:50 Nucleated RBCs # 0.1 /100WBC 12/21/21 08:50 Blood Type O Negative 12/21/21 08:50 Rho(D) Type Negative 12/21/21 08:50 Antibody Screen Negative 12/21/21 08:50 Vitals Last Vital Signs Temp 97.9 F 12/22/21 04:00 Pulse 78 12/22/21 06:05 Resp 18 12/22/21 06:05 BP 112/57 12/22/21 04:00 Pulse Ox 98 12/22/21 06:05 O2 Del Method 12/22/21 06:05 O2 Flow Rate 2 12/21/21 14:36 Discharge Plan Discharge Patient Disposition: Home Condition: Stable Prescriptions: New oxycodone 5 mg Tablet 5 mg PO Q4H PRN (Reason: Moderate Pain) 7 Days Qty: 30 0RF acetaminophen 500 mg Tablet 1,000 mg PO Q8H 14 Days Qty: 84 0RF gabapentin 300 mg Capsule 300 mg PO BID 7 Days Qty: 14 0RF Continued aspirin 81 mg Tablet,Delayed Release (Dr/Ec) 81 mg PO DAILY Alive Women's 50 Plus Gummy 120 mcg-150 mcg -37.5 mg Tablet,Chewable 1 tab PO DAILY trazodone 50 mg tablet 50 mg PO BEDTIME levothyroxine 50 mcg tablet 50 mcg PO DAILY cetirizine 10 mg tablet 10 mg PO DAILY pantoprazole 40 mg tablet,delayed release (DR/EC) 40 mg PO DAILY montelukast 10 mg tablet 10 mg PO DAILY PRN (Reason: Allergy Symptoms) ondansetron 4 mg tablet,disintegrating 4 mg PO Q8H PRN (Reason: nausea and vomiting) Qty: 15 0RF Discharge Orders: Discharge Order (Routine); Ordered 12/22/21 Ordered By: Keith Sebastian Referrals: Keith Sebastian MD [Physician] - 12/25/21 8:30 am Discharge Diet: Advance as tolerated Discharge Activity: Limit activity as instructed Patient Instructions: Opioid Safety Activity Restrictions/Additional Instructions: Okay to shower Keep Tubigauze sleeve in place for swelling. Okay to remove for hygiene. Apply FirstIce up to 20 min/hr for pain and swelling Take Neurontin twice a day for 7 days. Take Tylenol 500mg (2 tabs) as needed 3 times a day for mild pain take oxycodone for breakthrough pain. Exercises per physical therapy. May weight-bear as tolerated on total knee arthroplasty IF HAVE ANY PROBLEMS OR QUESTIONS CALL HOSPITAL CHEMISTRY TUTOR AT AND ASK TO HAVE DR. SEBASTIAN PAGED. Discharge Attestations Time Spent in Discharge Care*: other Quality Metrics Clinical Quality Measures [ No reported AMI, CVA or VTE this stay] Coding Level of Care Code Acute Chg FW DC note Diagnoses Osteoarthritis of right knee M17.11 Status post right knee replacement Z96.651
[2021-12-22] MEDS: pantoprazole DR 40 mg Tablet PO (08:29)
[2021-12-22] MEDS: gabapentin 300 mg Capsule PO (08:29)
[2021-12-22] MEDS: cetirizine 10 mg Tablet PO (08:29)
[2021-12-22] MEDS: levothyroxine 50 mcg Tablet PO (08:29)
[2021-12-22] MEDS: aspirin 81 mg EC Tablet PO (08:29)
--- NOTE | 2021-12-22 09:04 | PC.NURSE ---
patient verbalized understanding of discharge instructions, home medications, and follow up appointments.
--- NOTE | 2021-12-22 09:50 | PC.OT ---
OT EVALUATION ORDERS RECEIVED. PATIENT DISCHARGED BEFORE EVALUATION COULD BE COMPLETED.
== END 2021-12-22 09:05 | disposition home health service (06) ==
LOC: MEDSURG 14:36
PROVIDERS: Admitting Provider Orthopaedic Surgery; PCP Family Medicine Adult Medicine; Visit Provider Orthopaedic Surgery
PROC: (CPT 27447; principal; 2021-12-21 10:10)
DX: M17.11 Unilateral primary osteoarthritis, right knee (principal); K21.9 Gastro-esophageal reflux disease without esophagitis; Z86.73 Personal history of transient ischemic attack (TIA), and cerebral infarction without residual deficits; Z79.82 Long term (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 of aspirin; Z87.891 Personal history of nicotine dependence
CPT/HCPCS: 27447; 36415; 51702; 73560; 85018; 85025; 86850; 86900; 97110; 97116; 97161; C1776; G0378; J0171; J0690; J1100; J1580; J1885; J2250; J2270; J2405; J2704; J2795; J3010; J3490; J7030

== ENCOUNTER → 2021-12-25 08:28 | Outpatient (BNVA) | payer MEDICARE, SELFPAY | PROVIDERS: PCP Family Medicine Adult Medicine; Visit Provider Nurse Practitioner Family | DX: Z96.651 Presence of right artificial knee joint (principal) | CPT/HCPCS: 99024 ==

== ENCOUNTER 2022-01-19 07:01 | Outpatient (CLI) | payer MEDICARE, SELFPAY ==
--- NOTE | 2022-01-19 07:15 | USCV_ITS ---
Arlene Quach Age: 56 Gender: F : 1965 Exam Date: 01/19/2022 07:38 Ordering Phys: Keith Epps MD Technologist: [place] [facility] [place] Indication: swelling, knee replacement PROCEDURES: Venous duplex imaging was performed in only the right lower extremity. On the right side, the common femoral, superficial femoral, profunda femoral, popliteal, posterior tibial, greater saphenous veins and the peroneal trunk were identified and interrogated in the standard fashion. These veins were found to be easily compressible with spontaneous blood flow. No evidence of insufficiency or thrombus noted. In addition, the posterior tibial and peroneal trunk were evaluated. CONCLUSIONS No evidence of right lower extremity DVT. Philip Carter MD (Electronically Signed) Final Date: 19 January 2022 11:53 S
== END 2022-01-19 07:02 | disposition home or self-care (01) ==
LOC: RAD 07:02
PROVIDERS: PCP Family Medicine Adult Medicine; Visit Provider Orthopaedic Surgery
DX: M79.89 Other specified soft tissue disorders (principal); Z96.651 Presence of right artificial knee joint
CPT/HCPCS: 93971

== ENCOUNTER 2022-01-21 13:56 | Oncology outpatient (recurring) (ONCR) | payer MEDICARE, MEDICAID, SELFPAY ==
[2022-01-21 14:23] LABS: Basophils % 0.6 %; Eosinophils # 0.1 10^3/uL (0.0-0.8); Eosinophils % 0.9 %; Hematocrit 45.2 % (37.0-47.0); Hemoglobin 14.1 g/dL (11.5-15.3); Lymphocytes # 2.2 10^3/uL (0.8-4.8); Lymphocytes % 34.3 %; Mean Corpuscular HGB Conc 31.2 g/dL (30.0-36.0); Mean Corpuscular Hemoglobin 28.5 pg (28.0-34.0); Mean Corpuscular Volume 91.5 fl (81-99); Mean Platelet Volume 11.4 fL (7.4-10.4); Monocytes # 0.5 10^3/uL (0.2-0.9); Monocytes % 7.3 %; Neutrophils # 3.67 10^3/uL (1.8-7.7); Neutrophils % 56.7 %; Nucleated Red Blood Cells % 0 %; Platelet Count 275 10^3/cmm (130-400); Red Blood Count 4.94 10^6/uL (4.1-5.3); Red Cell Distribution Width 21.9 % (12.1-15.1); White Blood Count 6.5 10^3/uL (4.0-10.0)
[2022-01-21 14:46] LABS: Alanine Aminotransferase 34 U/L (0-33); Albumin Level 4.1 g/dL (3.5-5.2); Alkaline Phosphatase 109 U/L (35-105); Anion Gap 12.4 (5-19); Aspartate Amino Transferase 28 U/L (0-32); Blood Urea Nitrogen 8 mg/dL (6-20); Calcium 9.7 mg/dL (8.5-10.5); Carbon Dioxide 29 mmol/L (22-29); Chloride 103 mmol/L (98-107); Ferritin 197 ng/mL (15-150); Globulin 3.4 g/dL (1.3-4.6); Glomerular Filtration Rate 64.5 mL/min (90-130); Glucose 119 mg/dL (65-115); Iron 56 ug/dL (37-145); Osmolality Calculated 291 mOsm/kg (285-295); Percent Saturation 19.2 % (20-50); Potassium 3.4 mmol/L (3.5-5.1); Sodium 141 mmol/L (136-145); Total Bilirubin 0.3 mg/dL (0.15-1.2); Total Iron Binding Capacity 291 mcg/dl; Total Protein 7.5 g/dL (6.6-8.7); Unsaturated Iron Binding 235 ug/dL (112-347)
[2022-01-21 14:49] LABS: Slide Review Slide Review Perform
== END 2022-02-20 23:59 | disposition home or self-care (01) ==
PROVIDERS: PCP Family Medicine Adult Medicine; Visit Provider Internal Medicine Medical Oncology
DX: I78.0 Hereditary hemorrhagic telangiectasia (principal); R04.0 Epistaxis; K62.5 Hemorrhage of anus and rectum; D50.9 Iron deficiency anemia, unspecified; B37.0 Candidal stomatitis; Z96.651 Presence of right artificial knee joint; Z79.899 Other long term (current) drug therapy
CPT/HCPCS: 80053; 82728; 83540; 83550; 85025; 99214

== ENCOUNTER → 2022-01-22 07:58 | Outpatient (BNVA) | payer MEDICARE, MEDICAID, SELFPAY | PROVIDERS: PCP Family Medicine Adult Medicine; Visit Provider Nurse Practitioner Family | DX: M17.11 Unilateral primary osteoarthritis, right knee (principal) | CPT/HCPCS: 73560; 73565; 99024 ==

== ENCOUNTER 2022-02-01 06:00 | Outpatient (RCR) | payer MEDICARE, MEDICAID, SELFPAY | END 2022-02-20 23:59 | disposition home or self-care (01) | LOC: SPT 06:00 | PROVIDERS: PCP Family Medicine Adult Medicine; Visit Provider Orthopaedic Surgery | DX: Z96.651 Presence of right artificial knee joint (principal) | CPT/HCPCS: 97110; 97162 ==

== ENCOUNTER → 2022-02-03 12:42 | Outpatient (BNVA) | payer MEDICARE, MEDICAID, SELFPAY | PROVIDERS: PCP Family Medicine Adult Medicine; Visit Provider Nurse Practitioner Family | DX: Z96.651 Presence of right artificial knee joint (principal) | CPT/HCPCS: 99024; 99213 ==

== ENCOUNTER 2022-02-16 08:37 | Emergency (ER) | payer MEDICARE, MEDICAID, SELFPAY ==
--- NOTE | 2022-02-16 09:00 | XR_ITS ---
WS: [id number] Right knee, 3 views, 02/16/2022 Clinical Data: pain Comparison: AP view of knees, right knee, 01/22/2022 Findings: There is a total right knee arthroplasty. The components are in good position. No loosening or peripr osthetic fractures are seen. There is spurring of the anterior superior right patella. The soft tissues are normal. XR/XR knee RT 3V* [id number] Impression: Stable right knee arthroplasty.
[2022-02-16 09:15] VITALS: BP 133/64; PULSE 81; RESP 16; TEMP 36.9; O2SAT 98; BMI 22.1
[2022-02-16 09:20] VITALS: BP 112/66; PULSE 79; O2SAT 98
--- NOTE | 2022-02-16 09:28 | ED_ITS ---
HPI - Extremity Problem General: Chief complaint: Extremity Injury, Lower Stated complaint: Right knee injury Time Seen by Provider: 02/16/22 08:45 Source: patient Mode of arrival: ambulatory History of Present Illness: 56-year-old female presents emergency room with complaint of right knee pain she twisted on the knee has been able to bear partial weight but has been painful she has been using cane. She previous had right knee arthroplasty done. No other injuries. MD Complaint: joint swelling and joint pain Onset (ago): day(s) Pain Consistency: constant Location: right and knee Quality: aching Radiation: none Relieving factors: nothing Exacerbating factors: range of motion and weight bearing PFSH ED PFSH: Medical History Anterior cruciate ligament complete tear CVA (cerebral vascular accident) GERD (gastroesophageal reflux disease) Helicobacter pylori gastritis Hereditary hemorrhagic telangiectasia Hypothyroidism Iron deficiency anemia due to chronic blood loss Left axillary pain Surgical History H/O esophagogastroduodenoscopy (06/03/20) 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 H/O esophagogastroduodenoscopy (05/01/21) cautery of 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 4 History of colonoscopy (06/03/20) Cautery of AVM History of eye surgery History of hip surgery History of knee surgery History of lung surgery 2009 Hx of brain surgery Hx of removal of ovary Social History Smoking and tobacco status: former smoker Alcohol intake: current Alcohol intake frequency: few times a week Marital status: Number of children: 1 Current occupational status: disabled Course Vital Signs: Vital signs: Vital Signs Temperature 98.4 F 02/16/22 09:15 Pulse Rate 79 02/16/22 09:20 Respiratory Rate 16 02/16/22 09:15 Blood Pressure 112/66 02/16/22 09:20 Pulse Oximetry 98 02/16/22 09:20 Oxygen Delivery Me thod 02/16/22 09:20 MDM - Extremity (Nontraumatic) Medical Decision Making Moderate sprain of the knee use diclofenac instead of the Celebrex ice rest knee immobilizer crutches follow-up with Ortho Medical Records I reviewed the patient's medical records. Lab Data I reviewed the patient's lab results. Radiology Impressions Knee X-Ray 02/16/22 09:00 Impression: Stable right knee arthroplasty. Discharge Plan Discharge Patient Disposition: Home Clinical Impression: Right knee sprain Condition: Stable Prescriptions: New diclofenac sodium 75 mg tablet,delayed release (DR/EC) 75 mg PO Q12H PRN (Reason: pain) Qty: 20 0RF Discontinued celecoxib [Celebrex] 100 mg capsule 100 mg PO BID Qty: 60 0RF No Action fluconazole 100 mg tablet 100 mg PO DAILY Qty: 7 0RF hydrocodone-acetaminophen 5-325 mg tablet 1 tab PO Q6H PRN (Reason: pain) 5 Days Qty: 20 0RF montelukast 10 mg tablet See Rx Instructions .ROUTE .COMPLEX Qty: 30 2RF Dose Instruction: TAKE 1 TABLET BY MOUTH ONCE DAILY NEEDED FOR ALLERGIES Rx Instructions: TAKE 1 TABLET BY MOUTH ONCE DAILY NEEDED FOR ALLERGIES trazodone 50 mg tablet See Rx Instructions .ROUTE .COMPLEX Qty: 30 0RF Dose Instruction: TAKE 1 TABLET BY MOUTH AT BEDTIME Rx Instructions: TAKE 1 TABLET BY MOUTH AT BEDTIME aspirin 81 mg Tablet,Delayed Release (Dr/Ec) 81 mg PO DAILY Alive Women's 50 Plus Gummy 120 mcg-150 mcg -37.5 mg Tablet,Chewable 1 tab PO DAILY levothyroxine 50 mcg tablet 50 mcg PO DAILY cetirizine 10 mg tablet 10 mg PO DAILY ondansetron 4 mg tablet,disintegrating 4 mg PO Q8H PRN (Reason: nausea and vomiting) Qty: 15 0RF Discharge Orders: Discharge ED (Routine); Ordered 02/16/22 Ordered By: Randal Ward Referrals: Aguila Castro MD [Primary Care Provider] - Patient Instructions: Opioid Safety, Pain Management Activity Restrictions/Additional Instructions: You are seen for knee pain. Plain x-rays were negative. Suspect he strained soft tissues. Switch from side Celebrex to diclofenac 75 mg 1 every 12 hours as needed you can do Tylenol ibuprofen and ice rest the knee by using a knee immobilizer and crutches until released by Ortho Case management make arrangements for Ortho follow-up. Coding Level of Care Code ED Business Systems Administrator for Irma Montanez
[2022-02-16 09:46] VITALS: PULSE 82; RESP 16; O2SAT 100
--- NOTE | 2022-02-16 11:19 | DCPLANNER ---
Addendum entered by Racheal Milligan 02/26/22 11:36: Patient had a follow up appointment scheduled with ortho - patient did attend appointment. Addendum entered by Racheal Milligan 02/16/22 15:20: Patient has a follow up appointment scheduled for Tuesday, February 17, 2022 at 8:[address] Epps at ortho. Clinic will call patient with appointment information. Original Note: assistant store manager sales had message to schedule a follow up appointment for patient with ortho. assistant store manager sales sent patients information to the front office staff at ortho. Patients information will be printed and reviewed. Clinic will call patient with appointment information.
== END 2022-02-16 09:48 | disposition home or self-care (01) ==
PROVIDERS: Emergency Provider Family Medicine; PCP Family Medicine Adult Medicine
DX: S83.91XA Sprain of unspecified site of right knee, initial encounter (principal); Z79.82 Long term (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 of aspirin; Z87.891 Personal history of nicotine dependence; Z86.73 Personal history of transient ischemic attack (TIA), and cerebral infarction without residual deficits; X50.1XXA Overexertion from prolonged static or awkward postures, initial encounter
CPT/HCPCS: 29530; 73562; 99283; E0114

== ENCOUNTER → 2022-02-17 08:16 | Outpatient (BNVA) | payer MEDICARE, MEDICAID, SELFPAY | PROVIDERS: PCP Family Medicine Adult Medicine; Visit Provider Orthopaedic Surgery | DX: S83.91XA Sprain of unspecified site of right knee, initial encounter (principal); X50.9XXA Other and unspecified overexertion or strenuous movements or postures, initial encounter; Z96.651 Presence of right artificial knee joint | CPT/HCPCS: 99213 ==

== ENCOUNTER → 2022-03-03 12:48 | Outpatient (BNVA) | payer MEDICARE, MEDICAID, SELFPAY | PROVIDERS: PCP Family Medicine Adult Medicine; Visit Provider Orthopaedic Surgery | DX: Z96.651 Presence of right artificial knee joint (principal) | CPT/HCPCS: 99024 ==

== ENCOUNTER → 2022-03-31 08:44 | Outpatient (BNVA) | payer MEDICARE, MEDICAID, SELFPAY | PROVIDERS: PCP Family Medicine Adult Medicine; Visit Provider Orthopaedic Surgery | DX: Z96.651 Presence of right artificial knee joint (principal) | CPT/HCPCS: 99213 ==

== ENCOUNTER 2022-04-08 11:00 | Outpatient (CLI) | payer MEDICARE, MEDICAID, SELFPAY ==
--- NOTE | 2022-04-08 11:19 | MM_ITS ---
WS: [id number] Bilateral screening 3D tomosynthesis digital mammogram, 04/08/2022 Clinical Data: SCREENING Comparison: None. Findings: The breast parenchymal pattern shows fat replacement. No spiculated masses or clustered calcification s are seen. There are no secondary signs of carcinoma. In the left breast in the upper outer quadrant at approximately the 2:00 position there is asymmetric breast tissue. Tomographic cuts reveal no abn ormal calcifications or masses in this region. MM/[place] [id number] Impression: 1. Negative bilateral mammogram with no prior exam for review. 2. Recommend annual screening mammograms. BIRADS: 1-Negative FOLLOW UP: 1 Year Follow-up The CAD drawing checker was used.
== END 2022-04-08 11:01 | disposition home or self-care (01) ==
LOC: RAD 11:08
PROVIDERS: PCP Family Medicine; Visit Provider Family Medicine
DX: Z12.31 Encounter for screening mammogram for malignant neoplasm of breast (principal)
CPT/HCPCS: 77063; 77067

== ENCOUNTER 2022-04-08 11:06 | Outpatient (CLI) | payer MEDICARE, MEDICAID, SELFPAY ==
[2022-04-08 12:48] LABS: Basophils % 0.7 %; Eosinophils % 0.7 %; Hematocrit 40.5 % (37.0-47.0); Lymphocytes # 2.2 10^3/uL (0.8-4.8); Lymphocytes % 35.8 %; Mean Corpuscular HGB Conc 32.1 g/dL (30.0-36.0); Mean Corpuscular Hemoglobin 28.2 pg (28.0-34.0); Mean Corpuscular Volume 87.9 fl (81-99); Mean Platelet Volume 11.4 fL (7.4-10.4); Monocytes # 0.7 10^3/uL (0.2-0.9); Monocytes % 11.1 %; Neutrophils # 3.18 10^3/uL (1.8-7.7); Neutrophils % 51.5 %; Nucleated Red Blood Cells % 0 %; Platelet Count 225 10^3/cmm (130-400); Red Blood Count 4.61 10^6/uL (4.1-5.3); Red Cell Distribution Width 15.7 % (12.1-15.1); White Blood Count 6.2 10^3/uL (4.0-10.0)
[2022-04-08 13:08] LABS: Alanine Aminotransferase 45 U/L (0-33); Albumin Level 4.1 g/dL (3.5-5.2); Alkaline Phosphatase 82 U/L (35-105); Anion Gap 11.5 (5-19); Aspartate Amino Transferase 42 U/L (0-32); Blood Urea Nitrogen 9 mg/dL (6-20); Calcium 9.2 mg/dL (8.5-10.5); Carbon Dioxide 30 mmol/L (22-29); Chloride 104 mmol/L (98-107); Ferritin 52 ng/mL (15-150); Globulin 2.5 g/dL (1.3-4.6); Glomerular Filtration Rate 73.9 mL/min (90-130); Glucose 84 mg/dL (65-115); Iron 67 ug/dL (37-145); Osmolality Calculated 290 mOsm/kg (285-295); Percent Saturation 19.6 % (20-50); Potassium 4.5 mmol/L (3.5-5.1); Sodium 141 mmol/L (136-145); Total Bilirubin 0.3 mg/dL (0.15-1.2); Total Iron Binding Capacity 341 mcg/dl; Total Protein 6.6 g/dL (6.6-8.7); Unsaturated Iron Binding 274 ug/dL (112-347)
== END 2022-04-08 11:07 | disposition home or self-care (01) ==
LOC: LAB 11:08
PROVIDERS: PCP Family Medicine Adult Medicine; Visit Provider Internal Medicine Medical Oncology
DX: D50.0 Iron deficiency anemia secondary to blood loss (chronic) (principal)
CPT/HCPCS: 80053; 82728; 83540; 83550; 85025

== ENCOUNTER 2022-04-15 06:00 | Outpatient (RCR) | payer MEDICARE, MEDICAID, SELFPAY | END 2022-04-20 23:59 | disposition home or self-care (01) | LOC: SPT 06:00 | PROVIDERS: PCP Family Medicine; Visit Provider Orthopaedic Surgery | DX: M76.31 Iliotibial band syndrome, right leg (principal) | CPT/HCPCS: 97161 ==

== ENCOUNTER 2022-04-21 06:00 | Outpatient (RCR) | payer MEDICARE, MEDICAID, SELFPAY | END 2022-05-18 23:59 | disposition home or self-care (01) | LOC: SPT 06:00 | PROVIDERS: PCP Family Medicine; Visit Provider Orthopaedic Surgery | DX: M76.31 Iliotibial band syndrome, right leg (principal) | CPT/HCPCS: 97110 ==

== ENCOUNTER → 2022-05-12 08:05 | Outpatient (BNVA) | payer MEDICARE, MEDICAID, SELFPAY | PROVIDERS: PCP Family Medicine; Visit Provider Nurse Practitioner Family | DX: Z96.651 Presence of right artificial knee joint (principal); M17.11 Unilateral primary osteoarthritis, right knee; D50.0 Iron deficiency anemia secondary to blood loss (chronic) | CPT/HCPCS: 36415; 80053; 82728; 83540; 83550; 85025; 99213 ==

== ENCOUNTER 2022-06-14 08:10 | Oncology outpatient (recurring) (ONCR) | payer MEDICARE, MEDICAID, SELFPAY ==
[2022-06-01 08:45] LABS: Iron 33 ug/dL (37-145); Percent Saturation 8.4 % (20-50); Total Iron Binding Capacity 390 mcg/dl; Unsaturated Iron Binding 357 ug/dL (112-347)
[2022-06-01 09:03] LABS: Basophils % 0.6 %; Eosinophils # 0.1 10^3/uL (0.0-0.8); Eosinophils % 0.8 %; Hematocrit 38.7 % (37.0-47.0); Hemoglobin 12.4 g/dL (11.5-15.3); Lymphocytes # 1.5 10^3/uL (0.8-4.8); Lymphocytes % 24.1 %; Mean Corpuscular Hemoglobin 28.1 pg (28.0-34.0); Mean Corpuscular Volume 87.8 fl (81-99); Mean Platelet Volume 11.9 fL (7.4-10.4); Monocytes # 0.7 10^3/uL (0.2-0.9); Monocytes % 10.7 %; Neutrophils # 4.03 10^3/uL (1.8-7.7); Neutrophils % 63.5 %; Nucleated Red Blood Cells % 0 %; Platelet Count 260 10^3/cmm (130-400); Red Blood Count 4.41 10^6/uL (4.1-5.3); Red Cell Distribution Width 16.8 % (12.1-15.1); White Blood Count 6.4 10^3/uL (4.0-10.0)
[2022-06-01 11:00] VITALS: BP 110/64; PULSE 60; RESP 16; TEMP 36.4; O2SAT 96
[2022-06-09 12:30] VITALS: BP 103/66; PULSE 78; RESP 18; TEMP 36.7; O2SAT 99
[2022-06-09] MEDS: diphenhydrAMINE 50 mg/mL SDV 1mL 25 MG IVP (12:58)
[2022-06-09] MEDS: dexamethasone 4 mg/mL INJ 8 MG IVP (12:58)
[2022-06-09] MEDS: sodium chloride 0.9% 250 ML 75 ML IV (12:58)
[2022-06-09] MEDS: ferric carboxy (IVPB) 750 MG in sodium chloride 0.9% (100 ml) 100 ML 345 MG IV (13:17)
[2022-06-09 14:14] VITALS: BP 110/68; PULSE 75; RESP 18; TEMP 36.7; O2SAT 98
[2022-06-14 08:46] LABS: Basophils # 0.1 10^3/uL (0.0-0.1); Basophils % 0.9 %; Eosinophils # 0.2 10^3/uL (0.0-0.8); Eosinophils % 2.5 %; Hematocrit 36.3 % (37.0-47.0); Hemoglobin 11.4 g/dL (11.5-15.3); Lymphocytes # 1.3 10^3/uL (0.8-4.8); Lymphocytes % 18.2 %; Mean Corpuscular HGB Conc 31.4 g/dL (30.0-36.0); Mean Corpuscular Hemoglobin 27.4 pg (28.0-34.0); Mean Corpuscular Volume 87.3 fl (81-99); Monocytes # 1.1 10^3/uL (0.2-0.9); Monocytes % 15.7 %; Neutrophils # 4.27 10^3/uL (1.8-7.7); Neutrophils % 62.1 %; Nucleated Red Blood Cells % 0 %; Platelet Count 211 10^3/cmm (130-400); Red Blood Count 4.16 10^6/uL (4.1-5.3); Red Cell Distribution Width 17.1 % (12.1-15.1); White Blood Count 6.9 10^3/uL (4.0-10.0)
[2022-06-14 09:04] LABS: Iron 54 ug/dL (37-145); Percent Saturation 19.3 % (20-50); Total Iron Binding Capacity 279 mcg/dl; Unsaturated Iron Binding 225 ug/dL (112-347)
[2022-06-14 09:17] LABS: Ferritin 1655 ng/mL (15-150)
== END 2022-06-20 23:59 | disposition home or self-care (01) ==
PROVIDERS: Internal Medicine Medical Oncology; PCP Family Medicine; Visit Provider Nurse Practitioner
DX: D50.0 Iron deficiency anemia secondary to blood loss (chronic) (principal)
CPT/HCPCS: 36415; 82728; 83540; 83550; 85025; 96365; 96375; J1100; J1200; J1439; J7050

== ENCOUNTER 2022-06-21 08:01 | Oncology outpatient (recurring) (ONCR) | payer MEDICARE, MEDICAID, SELFPAY ==
[2022-06-21 08:20] LABS: Basophils # 0.1 10^3/uL (0.0-0.1); Basophils % 0.6 %; Eosinophils % 0.4 %; Hematocrit 41.6 % (37.0-47.0); Hemoglobin 12.9 g/dL (11.5-15.3); Lymphocytes # 2.1 10^3/uL (0.8-4.8); Lymphocytes % 25.4 %; Mean Corpuscular Hemoglobin 27.9 pg (28.0-34.0); Mean Platelet Volume 11.1 fL (7.4-10.4); Monocytes # 0.6 10^3/uL (0.2-0.9); Monocytes % 6.8 %; Neutrophils # 5.51 10^3/uL (1.8-7.7); Neutrophils % 66.1 %; Nucleated Red Blood Cells % 0 %; Platelet Count 300 10^3/cmm (130-400); Red Blood Count 4.62 10^6/uL (4.1-5.3); Red Cell Distribution Width 18.9 % (12.1-15.1); White Blood Count 8.3 10^3/uL (4.0-10.0)
== END 2022-07-21 23:59 | disposition home or self-care (01) ==
PROVIDERS: Internal Medicine Medical Oncology; PCP Family Medicine; Visit Provider Nurse Practitioner
DX: D50.0 Iron deficiency anemia secondary to blood loss (chronic) (principal); I78.0 Hereditary hemorrhagic telangiectasia
CPT/HCPCS: 36415; 85025

== ENCOUNTER 2022-06-28 08:19 | Outpatient (CLI) | payer MEDICARE, MEDICAID, SELFPAY ==
[2022-06-28 09:04] LABS: Basophils # 0.1 10^3/uL (0.0-0.1); Eosinophils % 0.3 %; Hemoglobin 12.8 g/dL (11.5-15.3); Lymphocytes # 1.7 10^3/uL (0.8-4.8); Mean Corpuscular HGB Conc 31.2 g/dL (30.0-36.0); Mean Corpuscular Hemoglobin 28.2 pg (28.0-34.0); Mean Corpuscular Volume 90.3 fl (81-99); Mean Platelet Volume 11.8 fL (7.4-10.4); Monocytes # 0.7 10^3/uL (0.2-0.9); Monocytes % 11.1 %; Neutrophils # 3.79 10^3/uL (1.8-7.7); Neutrophils % 60.3 %; Nucleated Red Blood Cells % 0 %; Platelet Count 261 10^3/cmm (130-400); Red Blood Count 4.54 10^6/uL (4.1-5.3); Red Cell Distribution Width 18.6 % (12.1-15.1); White Blood Count 6.3 10^3/uL (4.0-10.0)
== END 2022-06-28 08:20 | disposition home or self-care (01) ==
LOC: LAB 08:23
PROVIDERS: PCP Family Medicine; Visit Provider Internal Medicine Medical Oncology
DX: D50.0 Iron deficiency anemia secondary to blood loss (chronic) (principal)
CPT/HCPCS: 36415; 85025

== ENCOUNTER 2022-07-05 07:39 | Outpatient (CLI) | payer MEDICARE, MEDICAID, SELFPAY ==
[2022-07-05 08:13] LABS: Basophils % 0.9 %; Eosinophils % 0.7 %; Lymphocytes # 1.4 10^3/uL (0.8-4.8); Mean Corpuscular HGB Conc 31.7 g/dL (30.0-36.0); Mean Corpuscular Hemoglobin 29.1 pg (28.0-34.0); Mean Corpuscular Volume 91.7 fl (81-99); Mean Platelet Volume 11.3 fL (7.4-10.4); Monocytes # 0.5 10^3/uL (0.2-0.9); Monocytes % 10.7 %; Neutrophils # 2.62 10^3/uL (1.8-7.7); Neutrophils % 57.5 %; Nucleated Red Blood Cells % 0 %; Platelet Count 230 10^3/cmm (130-400); Red Blood Count 4.47 10^6/uL (4.1-5.3); Red Cell Distribution Width 18.5 % (12.1-15.1); White Blood Count 4.6 10^3/uL (4.0-10.0)
[2022-07-05 08:44] LABS: Ferritin 193 ng/mL (15-150); Iron 51 ug/dL (37-145); Percent Saturation 17.2 % (20-50); Total Iron Binding Capacity 296 mcg/dl; Unsaturated Iron Binding 245 ug/dL (112-347)
== END 2022-07-05 07:40 | disposition home or self-care (01) ==
LOC: LAB 07:42
PROVIDERS: PCP Family Medicine; Visit Provider Internal Medicine Medical Oncology
DX: D50.0 Iron deficiency anemia secondary to blood loss (chronic) (principal)
CPT/HCPCS: 82728; 83540; 83550; 85025

== ENCOUNTER → 2022-09-01 09:17 | Outpatient (BNVA) | payer MEDICARE, MEDICAID, SELFPAY | PROVIDERS: PCP Family Medicine; Visit Provider Nurse Practitioner Family | DX: M67.431 Ganglion, right wrist (principal); Z01.818 Encounter for other preprocedural examination | CPT/HCPCS: 73110; 99213 ==

== ENCOUNTER → 2022-09-02 14:23 | Outpatient (BNVA) | payer MEDICARE, MEDICAID, SELFPAY | PROVIDERS: PCP Family Medicine; Visit Provider Family Medicine | DX: Z01.818 Encounter for other preprocedural examination (principal) | CPT/HCPCS: 80053; 81000; 85025 ==

== ENCOUNTER → 2022-09-13 08:34 | Outpatient (BNVA) | payer MEDICARE, MEDICAID, SELFPAY | PROVIDERS: PCP Family Medicine; Visit Provider Specialist | DX: M67.431 Ganglion, right wrist (principal) | CPT/HCPCS: 20605; 99203 ==

== ENCOUNTER 2022-09-17 09:25 | Oncology outpatient (recurring) (ONCR) | payer MEDICARE, SELFPAY ==
[2022-09-14 12:29] VITALS: BP 116/71; PULSE 76; RESP 18; TEMP 36.2; O2SAT 97
[2022-09-14 13:21] LABS: Basophils # 0.1 10^3/uL (0.0-0.1); Basophils % 0.8 %; Eosinophils % 0.6 %; Hematocrit 32.2 % (37.0-47.0); Hemoglobin 10.2 g/dL (11.5-15.3); Lymphocytes # 1.9 10^3/uL (0.8-4.8); Lymphocytes % 31.1 %; Mean Corpuscular HGB Conc 31.7 g/dL (30.0-36.0); Mean Corpuscular Hemoglobin 26.6 pg (28.0-34.0); Mean Corpuscular Volume 84.1 fl (81-99); Mean Platelet Volume 11.2 fL (7.4-10.4); Monocytes # 0.6 10^3/uL (0.2-0.9); Monocytes % 10.1 %; Neutrophils # 3.55 10^3/uL (1.8-7.7); Neutrophils % 57.2 %; Nucleated Red Blood Cells % 0 %; Platelet Count 261 10^3/cmm (130-400); Red Blood Count 3.83 10^6/uL (4.1-5.3); Red Cell Distribution Width 16.3 % (12.1-15.1); White Blood Count 6.2 10^3/uL (4.0-10.0)
[2022-09-14 13:44] LABS: Alanine Aminotransferase 24 U/L (0-33); Albumin Level 3.8 g/dL (3.5-5.2); Alkaline Phosphatase 70 U/L (35-105); Anion Gap 12.9 (5-19); Aspartate Amino Transferase 26 U/L (0-32); Blood Urea Nitrogen 10 mg/dL (6-20); Calcium 8.5 mg/dL (8.5-10.5); Carbon Dioxide 25 mmol/L (22-29); Chloride 107 mmol/L (98-107); Ferritin 27 ng/mL (15-150); Globulin 2.5 g/dL (1.3-4.6); Glomerular Filtration Rate 56.9 mL/min (90-130); Glucose 134 mg/dL (65-115); Iron 19 ug/dL (37-145); Osmolality Calculated 293 mOsm/kg (285-295); Percent Saturation 5.6 % (20-50); Potassium 3.9 mmol/L (3.5-5.1); Sodium 141 mmol/L (136-145); Total Bilirubin 0.2 mg/dL (0.15-1.2); Total Iron Binding Capacity 337 mcg/dl; Total Protein 6.3 g/dL (6.6-8.7); Unsaturated Iron Binding 318 ug/dL (112-347)
[2022-09-17 09:16] VITALS: BP 97/63; PULSE 73; RESP 17; TEMP 35.9; O2SAT 96
[2022-09-17] MEDS: sodium chloride 0.9% 250 ML 100 ML IV (09:26)
[2022-09-17] MEDS: dexamethasone 4 mg/mL INJ 8 MG IVP (09:29)
[2022-09-17] MEDS: ferric carboxy (IVPB) 750 MG in sodium chloride 0.9% (100 ml) 100 ML 345 MG IV (09:49)
[2022-09-17 10:23] VITALS: BP 97/63; PULSE 62; TEMP 36.3; O2SAT 96
== END 2022-09-20 23:59 | disposition home or self-care (01) ==
PROVIDERS: Nurse Practitioner Family; PCP Family Medicine; Visit Provider Nurse Practitioner
DX: E61.1 Iron deficiency (principal)
CPT/HCPCS: 36415; 80053; 82728; 83540; 83550; 85025; 96365; 96375; 99214; J1100; J1439; J7050

== ENCOUNTER 2022-09-24 07:50 | Oncology outpatient (recurring) (ONCR) | payer MEDICARE, MEDICAID, SELFPAY ==
[2022-09-24] MEDS: dexamethasone 4 mg/mL INJ 8 MG IVP (08:23)
[2022-09-24] MEDS: ferric carboxy (IVPB) 750 MG in sodium chloride 0.9% (100 ml) 100 ML 345 MG IV (08:32)
[2022-09-24 08:33] VITALS: BP 113/69; PULSE 71; RESP 17; TEMP 36.4; O2SAT 99; BMI 23.3
[2022-09-24 10:57] VITALS: BP 112/78; PULSE 74; RESP 18; TEMP 36.6; O2SAT 98
== END 2022-10-21 23:59 | disposition home or self-care (01) ==
PROVIDERS: PCP Family Medicine; Visit Provider Internal Medicine Medical Oncology
DX: D50.0 Iron deficiency anemia secondary to blood loss (chronic) (principal)
CPT/HCPCS: 96365; 96375; J1100; J1439

== ENCOUNTER 2022-10-26 11:49 | Oncology outpatient (recurring) (ONCR) | payer MEDICARE, MEDICAID, SELFPAY ==
[2022-10-26 11:52] VITALS: BP 128/79; PULSE 88; RESP 18; TEMP 36.5; O2SAT 96
[2022-10-26 12:15] LABS: Basophils % 0.6 %; Eosinophils % 0.5 %; Hematocrit 41.4 % (36-47); Lymphocytes # 1.6 10^3/uL (0.8-4.8); Lymphocytes % 24.6 %; Mean Corpuscular HGB Conc 32.4 g/dL (30-55); Mean Corpuscular Hemoglobin 28.9 pg (27-33); Mean Corpuscular Volume 89.4 fl (85-98); Mean Platelet Volume 11.7 fL (7.4-10.4); Monocytes # 0.5 10^3/uL (0.2-0.9); Monocytes % 7.8 %; Neutrophils # 4.33 10^3/uL (1.8-7.7); Neutrophils % 66.2 %; Nucleated Red Blood Cells % 0 %; Platelet Count 196 10^3/cmm (157-399); Red Blood Count 4.63 10^6/uL (3.85-5.65); Red Cell Distribution Width 20.8 % (12.1-15.1); White Blood Count 6.54 10^3/uL (3.29-11.43)
[2022-10-26 12:30] LABS: Alanine Aminotransferase 29 U/L (0-33); Albumin Level 4.3 g/dL (3.5-5.2); Alkaline Phosphatase 86 U/L (35-105); Anion Gap 13.1 (5-19); Aspartate Amino Transferase 27 U/L (0-32); Blood Urea Nitrogen 9 mg/dL (6-20); Calcium 8.7 mg/dL (8.5-10.5); Carbon Dioxide 26 mmol/L (22-29); Chloride 107 mmol/L (98-107); Ferritin 311 ng/mL (15-150); Globulin 2.4 g/dL (1.3-4.6); Glomerular Filtration Rate 73.7 mL/min (90-130); Glucose 128 mg/dL (65-115); Iron 51 ug/dL (37-145); Osmolality Calculated 294 mOsm/kg (285-295); Percent Saturation 19.2 % (20-50); Potassium 4.1 mmol/L (3.5-5.1); Sodium 142 mmol/L (136-145); Total Bilirubin 0.2 mg/dL (0.15-1.2); Total Iron Binding Capacity 265 mcg/dl; Total Protein 6.7 g/dL (6.6-8.7); Unsaturated Iron Binding 214 ug/dL (112-347)
[2022-10-26 15:36] LABS: Add Urine Microscopic? YES; Bilirubin Urine Neg (Negative); Blood Urine Neg (Negative); Glucose Urine UA Norm (Normal); Ketones Urine Negative (Negative); Leukocyte Esterase Urine Trace (Negative); Nitrate Urine Negative (Negative); Protein Urine Neg (Negative); RBC Urine 0-4 /hpf (0-2); Squamous Epithelial Cell Urine 0-4 /hpf (0-5); Urine Appearance SL Hazy (CLEAR); Urine Color Yellow (Yellow); Urobilinogen Urine 1 mg/dL (Negative); WBC Urine 0-4 /hpf (0-5); pH Urine 7 (5-7)
[2022-10-26 15:37] LABS: Add Urine Culture? No; Amorphous Sediment Urine 3+ /hpf; Bacteria Urine TRACE /hpf; Mucus Urine TRACE /hpf
== END 2022-11-20 23:59 | disposition home or self-care (01) ==
PROVIDERS: Nurse Practitioner Family; PCP Family Medicine; Visit Provider Internal Medicine Medical Oncology
DX: D50.0 Iron deficiency anemia secondary to blood loss (chronic) (principal); Z85.43 Personal history of malignant neoplasm of ovary; I78.0 Hereditary hemorrhagic telangiectasia
CPT/HCPCS: 36415; 80053; 81001; 82728; 83540; 83550; 85025; 99214

== ENCOUNTER 2022-11-24 10:45 | Outpatient (CLI) | payer MEDICARE, MEDICAID, SELFPAY ==
--- NOTE | 2022-11-24 12:30 | CT_ITS ---
WS: [id number] CT ABDOMEN AND PELVIS WITH CONTRAST HISTORY: abdominal and back pain with history of ovarian cancer TECHNIQUE: Imaging performed of the abdomen and pelvis with IV contrast. Single phase imaging of the abdomen. Coronal and sagittal reformats are submitted. All CT scans at [facility] use at [address] one of these dose optimization techniques: automated exposure control; mA and/or kV adjustment per patient size (includes targeted exams where dose is matched to clinical indication); or iterative re construction. IV CONTRAST: Omnipaque 350; 100 mL IV. Oral contrast: Yes. DLP: 313.57 mGy.cm COMPARISON: 05/24/2020 Lower thorax: Metallic coils identified in the LEFT lower lobe. 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 No mass or nodules. Heart is normal size. No hiatal hernia. Liver/biliary system: Normal size with no intrahepatic dilatation. Gallbladder: Normal. No gallstones or wall thickening. No pericholecystic fluid. Pancreas: Normal size pancreas and pancreatic duct. No adjacent inflammation. Spleen: Normal size spleen. No mass or infarct. Adrenal glands: Normal RIGHT adrenal gland. Mild thickening and lobularity of the LEFT adrenal gland similar to the prior study. Suspect there is small 10 mm adenoma present. No increase in size. Right kidney: Normal size. Cluster of small cysts in the posterior mid renal cortex. Similar to prior studies. One of the cyst has a few septations. Maximum diameter of this cyst is 1.2 cm without incre ase in size or change since 05/24/2020. No renal obstruction. Left kidney: Cortical cysts. Nonobstructing calcification in the mid pelvis. Aorta: Mild atherosclerosis with no aneurysm. Lymphadenopathy: None. There are a few small retroperitoneal lymph nodes. Periaortic and aortocaval w hich were also present on 05/24/2020. No enlarging adenopathy. Free fluid: None. GI tract: Nondistended stomach. No small bowel obstruction. Normal appendix. Very mild soft tissue pr ominence involving the ascending colon near the junction with the terminal ileum. There is no obstruc tive pattern this may be due to peristalsis. There are no adjacent lymph nodes. Abdominal wall: Unremarkable abdominal wall. No hernia. Pelvis: No free fluid or adenopathy within the pelvis. Prior hysterectomy. Bones: Prior LEFT hip arthroplasty. No osteoblastic or osteolytic bone disease. IMPRESSION: 1. Very minimal soft tissue thickening involving the cecum at the level of the terminal ileum. This area can be further evaluated by colonoscopy. There is no soft tissue mass or obstruction. The change s may be due to peristalsis. 2. No new or enlarging retroperitoneal lymph nodes. There are several small lymph nodes as described above unchanged since 05/24/2020. 3. Bilateral renal cysts unchanged. 4. No metastatic disease to the abdomen or pelvis is identified.
[2022-11-24] MEDS: iohexol 350 mg/mL 500 mL Btl (per mL) IV (12:50)
[2022-11-24] MEDS: iohexol 350 mg/mL 500 mL Btl (per mL) PO (12:50)
== END 2022-11-24 10:46 | disposition home or self-care (01) ==
PROVIDERS: PCP Family Medicine; Visit Provider Nurse Practitioner Family
DX: R10.9 Unspecified abdominal pain (principal); Z85.43 Personal history of malignant neoplasm of ovary
CPT/HCPCS: 74177; Q9967

== ENCOUNTER 2022-12-06 11:42 | Emergency (ER) | payer MEDICARE, MEDICAID, SELFPAY ==
--- NOTE | 2022-12-06 11:45 | XRR_ITS ---
PROCEDURE INFORMATION: Exam: XR Chest Exam date and time: 12/06/2022 12:15 PM Age: 57 years old Clinical indication: On breathing and other: Chest pain in the ulq. Prior surgery; Surgery date: 6+ months; Surgery type: Partial hysterectomy/ left hip/ filter; Patient HX: HX of ovarian/cervical cancer TECHNIQUE: Imaging protocol: Radiologic exam of the chest. Views: 1 view. COMPARISON: CR XR chest 1V portable [id number] 09/17/2020 9:36 AM FINDINGS: Lungs: Unremarkable. No consolidation. Pleural spaces: Unremarkable. No pleural effusion. No pneumothorax. Heart/Mediastinum: Unremarkable. No cardiomegaly. Vasculature: Metallic coil seen in the left lower lung. This has not changed in comparison to the prior study. Bones/joints: Unremarkable. XR/XR chest 1V portable [id number] IMPRESSION: No acute findings.
--- NOTE | 2022-12-06 11:57 | ECG_ITS ---
[facility] Test Date: 2022-12-06 Pat Name: Arlene Quach Department: Room: Gender: Female Alterations Tailor: : 1965 Requested By: Laurie Whalen Order Number: [id number] Erasto MD: Amber Martini M.D. Measurements Intervals [place] Rate: 77 P: 58 ND: 187 QRS: 52 QRSD: 84 T: 50 QT: 357 QTc: 405 Interpretive Statements SINUS RHYTHM POSSIBLE LEFT ATRIAL ENLARGEMENT [-0.1mV P-WAVE IN V1/V2] Compared to ECG 12/11/2021 13:50:11 No significant changes Electronically Signed On 12-06-2022 23:16:39 CDT by Amber Martini M.D. [email or web address]...[email or web address].[email or web address]/store/OM/[id number]
[2022-12-06 11:58] VITALS: BP 114/77; PULSE 72; RESP 16; TEMP 37; O2SAT 97; BMI 21.4
[2022-12-06 12:06] LABS: Basophils % 0.6 %; Eosinophils % 0.3 %; Hematocrit 42.3 % (36-47); Lymphocytes # 1.9 10^3/uL (0.8-4.8); Mean Corpuscular HGB Conc 32.6 g/dL (30-55); Mean Corpuscular Hemoglobin 29.1 pg (27-33); Mean Corpuscular Volume 89.2 fl (85-98); Mean Platelet Volume 11.2 fL (7.4-10.4); Monocytes # 0.6 10^3/uL (0.2-0.9); Monocytes % 8.3 %; Neutrophils # 4.07 10^3/uL (1.8-7.7); Neutrophils % 61.6 %; Nucleated Red Blood Cells % 0 %; Platelet Count 212 10^3/cmm (157-399); Red Blood Count 4.74 10^6/uL (3.85-5.65); Red Cell Distribution Width 17.4 % (12.1-15.1); White Blood Count 6.61 10^3/uL (3.29-11.43)
[2022-12-06 12:36] LABS: Troponin(5th) Baseline < 6 ng/L (0-10)
[2022-12-06 12:41] LABS: Alanine Aminotransferase 29 U/L (0-33); Albumin Level 4.4 g/dL (3.5-5.2); Alkaline Phosphatase 71 U/L (35-105); Anion Gap 12.1 (5-19); Aspartate Amino Transferase 26 U/L (0-32); Blood Urea Nitrogen 8 mg/dL (6-20); Calcium 9.6 mg/dL (8.5-10.5); Carbon Dioxide 27 mmol/L (22-29); Chloride 106 mmol/L (98-107); Globulin 2.4 g/dL (1.3-4.6); Glomerular Filtration Rate 73.7 mL/min (90-130); Glucose 96 mg/dL (65-115); Osmolality Calculated 290 mOsm/kg (285-295); Potassium 4.1 mmol/L (3.5-5.1); Sodium 141 mmol/L (136-145); Total Bilirubin 0.2 mg/dL (0.15-1.2); Total Protein 6.8 g/dL (6.6-8.7)
--- NOTE | 2022-12-06 13:57 | W.ED.CHESTPA ---
HPI - Chest Pain General: Chief Complaint: Chest Pain Stated Complaint: left side chest pain Time Seen by Provider: 12/06/22 13:43 History of Present Illness: 57-year-old female presents emergency department with complaints of left chest wall pain that is reproducible. She states she was going to see her primary care provider but was unable to be seen. She denies shortness of breath, dizziness or lightheaded feeling. She denies nausea or vomiting. 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 She states that if she pushes on her left anterior chest that the pain is an intermittent 4 out of 10 sharp pain that is not associated with shortness of breath. She states the pain does not radiate. She states that if she abducts her left arm and shoulder the pain is reproducible. Review of Systems General: Reports: 10 or more systems reviewed and unremarkable except in HPI and below Card: Reports: chest pain Musc: Reports: other (Left anterior chest wall pain) [facility] ED PFSH: Medical History Anterior cruciate ligament complete tear CVA (cerebral vascular accident) GERD (gastroesophageal reflux disease) Helicobacter pylori gastritis Hereditary hemorrhagic telangiectasia Hypothyroidism Iron deficiency anemia due to chronic blood loss Left axillary pain Surgical History H/O esophagogastroduodenoscopy (06/03/20) 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 H/O esophagogastroduodenoscopy (05/01/21) cautery of 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 4 History of colonoscopy (06/03/20) Cautery of AVM History of eye surgery History of hip surgery History of knee surgery History of lung surgery 2008 Hx of brain surgery Hx of removal of ovary Social History Smoking and tobacco/nicotine status: former use of tobacco/nicotine Quit status (tobacco/nicotine): has quit using Year quit tobacco: Nov 2021 Former quit date comment: Smoked for 40+ years Alcohol intake: current Alcohol intake frequency: few times a week Substance/Drug Use: never Marital status: Number of children: 1 Current occupational status: disabled Physical Exam Const: COMMON NORMALS: no acute distress, patient oriented x3 and alert HENMT: COMMON NORMALS: normocephalic, atraumatic and Normal nasal mucous membranes and turbinates present HEAD & SCALP: normocephalic and atraumatic NOSE: Normal nasal mucous membranes and turbinates present Neuro: COMMON NORMALS: patient oriented x3 SENSORIUM/ORIENTATION: Yes alert Course Vital Signs: Vital signs: Vital Signs Temperature 98.6 F 12/06/22 11:58 Pulse Rate 72 12/06/22 11:58 Respiratory Rate 16 12/06/22 11:58 Blood Pressure 114/77 12/06/22 11:58 Pulse Oximetry 97 12/06/22 11:58 Oxygen Delivery Me thod Room Air 12/06/22 11:58 MDM - Chest Pain Medical Decision Making Physical exam completed, I did obtain a twelve-lead EKG as well as laboratory evaluation and chest x-ray. Given the patient's physical exam findings I suspect most likely this is secondary to musculoskeletal strain given her increased use of her chest muscles. Lab Data I reviewed the patient's lab results. 12/06/22 12:00 12/06/22 12:00 Radiology Impressions Chest X-Ray 12/06/22 11:45 IMPRESSION: No acute findings. Laboratory Results WBC 6.61 10^3/uL (3.29-11.43) 12/06/22 12:00 RBC 4.74 10^6/uL (3.85-5.65) 12/06/22 12:00 Hgb 13.80 g/dL (11.27-16.99) 12/06/22 12:00 Hct 42.3 % (36-47) 12/06/22 12:00 MCV 89.2 fl (85-98) 12/06/22 12:00 MCH 29.1 pg (27-33) 12/06/22 12:00 MCHC 32.6 g/dL (30-55) 12/06/22 12:00 RDW 17.4 % (12.1-15.1) H 12/06/22 12:00 Plt Count 212 10^3/cmm (157-399) 12/06/22 12:00 MPV 11.2 fL (7.4-10.4) H 12/06/22 12:00 Neut % (Auto) 61.6 % 12/06/22 12:00 Lymph % (Auto) 29.0 % 12/06/22 12:00 [place] % (Auto) 8.3 % 12/06/22 12:00 Eos % (Auto) 0.3 % 12/06/22 12:00 Baso % (Auto) 0.6 % 12/06/22 12:00 Neut # (Auto) 4.07 10^3/uL (1.8-7.7) 12/06/22 12:00 Lymph # (Auto) 1.9 10^3/uL (0.8-4.8) 12/06/22 12:00 [place] # (Auto) 0.6 10^3/uL (0.2-0.9) 12/06/22 12:00 Eos # (Auto) 0.0 10^3/uL (0.0-0.8) 12/06/22 12:00 Baso # (Auto) 0.0 10^3/uL (0.0-0.1) 12/06/22 12:00 Nucleated RBC % (auto) 0 % 12/06/22 12:00 Nucleated RBCs # 0.0 /100WBC 12/06/22 12:00 Sodium 141 mmol/L (136-145) 12/06/22 12:00 Potassium 4.1 mmol/L (3.5-5.1) 12/06/22 12:00 Chloride 106 mmol/L (98-107) 12/06/22 12:00 Carbon Dioxide 27 mmol/L (22-29) 12/06/22 12:00 Anion Gap 12.1 (5-19) 12/06/22 12:00 BUN 8 mg/dL (6-20) 12/06/22 12:00 Creatinine 0.8 mg/dL (0.5-0.9) 12/06/22 12:00 GFR Calculation 73.7 mL/min (90-130) L 12/06/22 12:00 Glucose 96 mg/dL (65-115) 12/06/22 12:00 Calculated Osmolality 290 mOsm/kg (285-295) 12/06/22 12:00 Calcium 9.6 mg/dL (8.5-10.5) 12/06/22 12:00 Total Bilirubin 0.2 mg/dL (0.15-1.2) 12/06/22 12:00 AST 26 U/L (0-32) 12/06/22 12:00 ALT 29 U/L (0-33) 12/06/22 12:00 Alkaline Phosphatase 71 U/L (35-105) 12/06/22 12:00 Troponin T Baseline < 6 ng/L (0-10) 12/06/22 12:00 Troponin T 120 Minute 6.0 ng/L (0-10) 12/06/22 13:58 Delta Troponin T 0.67333 ABS# (0-10) 12/06/22 13:58 Total Protein 6.8 g/dL (6.6-8.7) 12/06/22 12:00 Albumin 4.4 g/dL (3.5-5.2) 12/06/22 12:00 Globulin 2.4 g/dL (1.3-4.6) 12/06/22 12:00 All radiology interpretation(s) finalized by discharge ED provider radiology interpretation(s): FINDINGS: Lungs: Unremarkable. No consolidation. Pleural spaces: Unremarkable. No pleural effusion. No pneumothorax. Heart/Mediastinum: Unremarkable. No cardiomegaly. Vasculature: Metallic coil seen in the left lower lung. This has not changed in comparison to the prior study. Bones/joints: Unremarkable. XR/XR chest 1V portable [id number] IMPRESSION: No acute findings. ? Discharge Plan Discharge Patient Disposition: Home Clinical Impression: Muscle strain of anterior chest wall, Atypical chest pain Condition: Stable Prescriptions: No Action cetirizine [Allergy Relief (cetirizine)] 10 mg tablet See Rx Instructions .ROUTE .COMPLEX Qty: 90 3RF Dose Instruction: Take 1 tablet by mouth once daily Rx Instructions: Take 1 tablet by mouth once daily trazodone 50 mg tablet See Rx Instructions .ROUTE .COMPLEX Qty: 30 0RF Dose Instruction: TAKE 1 TABLET BY MOUTH AT BEDTIME Rx Instructions: TAKE 1 TABLET BY MOUTH AT BEDTIME hydrocodone-acetaminophen 5-325 mg tablet 1 tab PO Q6H PRN (Reason: pain) 30 Days Qty: 120 0RF levothyroxine 50 mcg tablet See Rx Instructions .ROUTE .COMPLEX Qty: 90 0RF Dose Instruction: Take 1 tablet by mouth once daily Rx Instructions: Take 1 tablet by mouth once daily aspirin 81 mg Tablet,Delayed Release (Dr/Ec) 81 mg PO DAILY Alive Women's 50 Plus Gummy 120 mcg-150 mcg -37.5 mg Tablet,Chewable 1 tab PO DAILY Discharge Orders: Discharge ED (Routine); Ordered 12/06/22 Ordered By: Montana Jolley Referrals: Tawnya Lane DO [Primary Care Provider] - Discharge Diet: Advance as tolerated Discharge Activity: Resume usual activity Patient Instructions: Muscle Strain (DC) Coding Level of Care Code ED Coil Winder for Irma Montanez
--- NOTE | 2022-12-06 14:01 | ECG_ITS ---
[facility] Test Date: 2022-12-06 Pat Name: Arlene Quach Department: Room: Gender: Female Pharmacist Critical Care: : 1965 Requested By: Laurie Whalen Order Number: [id number] Erasto MD: Amber Martini M.D. Measurements Intervals [place] Rate: 60 P: 38 [place]: 197 QRS: 48 QRSD: 88 T: 48 QT: 394 QTc: 396 Interpretive Statements SINUS RHYTHM Compared to ECG 12/06/2022 11:57:26 No significant changes Electronically Signed On 12-06-2022 23:21:35 CDT by Amber Martini M.D. [id number]
[2022-12-06] MEDS: methylPREDNISolone sod succ 60 MG in water for injection-sterile 0.96 ML 11.52 MG IM (14:11)
[2022-12-06] MEDS: ketorolac 30 mg/mL INJ IM (14:14)
[2022-12-06 14:41] LABS: Troponin 5 2HR Delta 0.00001 ABS# (0-10)
== END 2022-12-06 14:48 | disposition home or self-care (01) ==
PROVIDERS: Physician Assistant; Emergency Provider Internal Medicine; PCP Family Medicine
DX: S29.011A Strain of muscle and tendon of front wall of thorax, initial encounter (principal); R07.89 Other chest pain; Z79.82 Long term (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 of aspirin; Z87.891 Personal history of nicotine dependence; Z86.73 Personal history of transient ischemic attack (TIA), and cerebral infarction without residual deficits; X50.9XXA Other and unspecified overexertion or strenuous movements or postures, initial encounter
CPT/HCPCS: 36415; 71045; 80053; 84484; 85025; 93005; 96372; 99285; J1885; J2930

== ENCOUNTER 2022-12-29 12:31 | Oncology outpatient (recurring) (ONCR) | payer MEDICARE, MEDICAID, SELFPAY ==
[2022-12-29 13:43] VITALS: BP 125/69; PULSE 68; RESP 17; TEMP 36.1; O2SAT 96
[2022-12-29 13:49] LABS: Basophils # 0.1 10^3/uL (0.0-0.1); Basophils % 0.8 %; Eosinophils % 0.3 %; Lymphocytes # 1.7 10^3/uL (0.8-4.8); Lymphocytes % 25.9 %; Mean Corpuscular HGB Conc 33.2 g/dL (30-55); Mean Corpuscular Hemoglobin 29.9 pg (27-33); Mean Platelet Volume 10.8 fL (7.4-10.4); Monocytes # 0.5 10^3/uL (0.2-0.9); Monocytes % 8.3 %; Neutrophils # 4.12 10^3/uL (1.8-7.7); Neutrophils % 64.4 %; Nucleated Red Blood Cells % 0 %; Platelet Count 207 10^3/cmm (157-399); Red Blood Count 4.22 10^6/uL (3.85-5.65); Red Cell Distribution Width 16.1 % (12.1-15.1)
[2022-12-29 14:02] VITALS: BP 125/69; PULSE 68; RESP 17; TEMP 36.1; O2SAT 96
[2022-12-29 14:23] LABS: Alanine Aminotransferase 42 U/L (0-33); Albumin Level 4.1 g/dL (3.5-5.2); Alkaline Phosphatase 72 U/L (35-105); Aspartate Amino Transferase 28 U/L (0-32); Blood Urea Nitrogen 8 mg/dL (6-20); Calcium 9.3 mg/dL (8.5-10.5); Carbon Dioxide 28 mmol/L (22-29); Chloride 106 mmol/L (98-107); Globulin 2.3 g/dL (1.3-4.6); Glomerular Filtration Rate 64.3 mL/min (90-130); Glucose 133 mg/dL (65-115); Osmolality Calculated 294 mOsm/kg (285-295); Sodium 142 mmol/L (136-145); Total Bilirubin 0.2 mg/dL (0.15-1.2); Total Protein 6.4 g/dL (6.6-8.7)
[2022-12-29 16:00] LABS: Ferritin 53 ng/mL (15-150); Iron 51 ug/dL (37-145); Percent Saturation 15.9 % (20-50); Total Iron Binding Capacity 320 mcg/dl; Unsaturated Iron Binding 269 ug/dL (112-347)
== END 2023-01-20 23:59 | disposition home or self-care (01) ==
PROVIDERS: Nurse Practitioner Family; PCP Family Medicine; Visit Provider Internal Medicine Medical Oncology
DX: D50.0 Iron deficiency anemia secondary to blood loss (chronic) (principal)
CPT/HCPCS: 36415; 80053; 82728; 83540; 83550; 85025; 99214

== ENCOUNTER 2023-02-07 09:00 | Oncology outpatient (recurring) (ONCR) | payer MEDICARE, MEDICAID, SELFPAY ==
[2023-01-26 10:25] VITALS: BP 128/71; PULSE 61; RESP 16; TEMP 36.8; O2SAT 98
[2023-01-26 10:42] LABS: Basophils % 0.5 %; Eosinophils % 0.5 %; Hematocrit 37.4 % (36-47); Lymphocytes # 1.7 10^3/uL (0.8-4.8); Lymphocytes % 30.8 %; Mean Corpuscular HGB Conc 31.8 g/dL (30-55); Mean Corpuscular Hemoglobin 28.6 pg (27-33); Mean Corpuscular Volume 89.9 fl (85-98); Mean Platelet Volume 10.9 fL (7.4-10.4); Monocytes # 0.5 10^3/uL (0.2-0.9); Monocytes % 8.7 %; Neutrophils # 3.33 10^3/uL (1.8-7.7); Neutrophils % 59.3 %; Nucleated Red Blood Cells % 0 %; Platelet Count 276 10^3/cmm (157-399); Red Blood Count 4.16 10^6/uL (3.85-5.65); Red Cell Distribution Width 15.5 % (12.1-15.1); White Blood Count 5.62 10^3/uL (3.29-11.43)
[2023-01-26 11:05] LABS: Ferritin 27 ng/mL (15-150); Iron 34 ug/dL (37-145)
[2023-01-26 11:06] LABS: Percent Saturation 9.6 % (20-50); Total Iron Binding Capacity 354 mcg/dl; Unsaturated Iron Binding 320 ug/dL (112-347)
[2023-01-26 11:08] LABS: Thyroid Stimulating Hormone 2.52 uIU/mL (0.27-4.20)
[2023-01-31] MEDS: sodium chloride 0.9% (100 ml) 100 ML 75 ML (08:16)
[2023-01-31] MEDS: dexamethasone 4 mg/mL INJ 8 MG IVP (08:17)
[2023-01-31] MEDS: ferric carboxy (IVPB) 750 MG in sodium chloride 0.9% (100 ml) 100 ML 345 MG IV (08:22)
[2023-01-31 08:59] VITALS: BP 111/71; PULSE 65; RESP 18; TEMP 36.4; O2SAT 97
[2023-02-07 09:30] VITALS: BP 112/64; PULSE 69; RESP 16; TEMP 36.1
[2023-02-07] MEDS: dexamethasone 4 mg/mL INJ 8 MG IVP (09:38)
[2023-02-07] MEDS: sodium chloride 0.9% 250 ML 75 ML IV (09:38)
[2023-02-07] MEDS: ferric carboxy (IVPB) 750 MG in sodium chloride 0.9% (100 ml) 100 ML 345 MG IV (10:16)
[2023-02-07 10:50] VITALS: BP 112/64; PULSE 69; RESP 16; TEMP 36.1
== END 2023-02-20 23:59 | disposition home or self-care (01) ==
PROVIDERS: Nurse Practitioner Family; PCP Family Medicine; Visit Provider Internal Medicine Medical Oncology
DX: D50.0 Iron deficiency anemia secondary to blood loss (chronic) (principal); Z53.9 Procedure and treatment not carried out, unspecified reason
CPT/HCPCS: 36415; 82728; 83540; 83550; 84443; 85025; 96365; 96375; J1100; J1439; J7050

== ENCOUNTER 2023-03-19 09:50 | Emergency (ER) | payer MEDICARE, SELFPAY ==
[2023-03-19 10:12] VITALS: BP 147/81; PULSE 84; RESP 16; TEMP 36.8; O2SAT 97; BMI 22.8
--- NOTE | 2023-03-19 10:27 | XRR_ITS ---
PROCEDURE INFORMATION: Exam: XR Lumbosacral Spine Exam date and time: 03/19/2023 10:52 AM Age: 57 years old Clinical indication: Low back pain; Additional info: Lbp, no trauma TECHNIQUE: Imaging protocol: Radiologic exam of the lumbosacral spine. Views: 2 or 3 views. COMPARISON: CR XR lumbar spine 2-3V* [id number] 03/14/2018 1:06 PM FINDINGS: Bones/joints: No acute fracture or malalignment. Mild multilevel spondylosis. Soft tissues: No acute findings. XR/XR lumbar spine 2-3V* [id number] IMPRESSION: Mild degenerative changes without acute findings.
[2023-03-19 10:30] VITALS: BP 133/66; PULSE 79; O2SAT 100
[2023-03-19] MEDS: orphenadrine 30 mg/mL Inj 2 mL 60 MG IM (10:39)
[2023-03-19] MEDS: ketorolac 60 mg/2 mL INJ IM (10:39)
--- NOTE | 2023-03-19 10:39 | ED_ITS ---
HPI - Back Pain/Injury General: Chief Complaint: Back Pain/Injury Stated Complaint: lower back pains Time Seen by Provider: 03/19/23 09:53 History of Present Illness: Patient resents to the ER with complaints of back pain times last 4 days. Patient denies any fall or injury. Patient denies any chronic back pain. She noticed that started about 4 days ago and is only gotten worse. The pain is across both sides of her lumbar spine just above her buttocks. Patient denies any problems with urinating or defecation. Pain does not radiate. Moving makes the pain worse. Review of Systems General: Reports: 10 or more systems reviewed and unremarkable except in HPI and below PFSH ED PFSH: Medical History Hypothyroidism Iron deficiency anemia due to chronic blood loss Left axillary pain Helicobacter pylori gastritis Hereditary hemorrhagic telangiectasia Anterior cruciate ligament complete tear CVA (cerebral vascular accident) GERD (gastroesophageal reflux disease) Surgical History H/O esophagogastroduodenoscopy (05/01/21) cautery of 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 4 H/O esophagogastroduodenoscopy (06/03/20) 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 History of lung surgery 2009 History of colonoscopy (06/03/20) Cautery of AVM Hx of brain surgery History of eye surgery History of knee surgery History of hip surgery Hx of removal of ovary Social History Smoking and tobacco/nicotine status: former use of tobacco/nicotine Quit status (tobacco/nicotine): has quit using Year quit tobacco: Nov 2021 Former quit date comment: Smoked for 40+ years Alcohol intake: current Alcohol intake frequency: few times a week Substance/Drug Use: never Marital status: Number of children: 1 Current occupational status: disabled Physical Exam Const: COMMON NORMALS: no acute distress, average body habitus, patient oriented x3, no limitations, healthy appearing and alert Neck/C-Spine: COMMON NORMALS: no JVD Chest: COMMONS NORMALS: normal inspection of the chest and normal palpation of entire chest wall Resp: COMMON NORMALS: normal respiratory effort, No retractions, No use of accessory muscles and clear to auscultation bilaterally AUSCULTATION: clear to auscultation bilaterally Cardio: COMMON NORMALS: no JVD, regular rate, regular rhythm, S1 normal heart sound present, S2 normal heart sound present, No gallops present (Cardio), No clicks present (Cardio), No murmurs present (Cardio) and No rub (Cardio) RATE: regular rate RHYTHM: regular rhythm HEART SOUNDS: S1 normal heart sound present and S2 normal heart sound present GI: COMMON NORMALS: Normal to inspection, nondistended, normoactive bowel sounds present, Soft to palpation, non-tender, No hepatosplenomegaly present and no masses PALPATION: Yes Soft to palpation and Yes No hepatosplenomegaly present Back/Pelvis: OTHER: Tender to palpate bilateral lower lumbar region. No obvious tenderness with palpation over spine, deformity, crepitus Neuro: COMMON NORMALS: patient oriented x3 SENSORIUM/ORIENTATION: Yes alert Course Vital Signs: Vital signs: Vital Signs Temperature 98.2 F 03/19/23 10:12 Pulse Rate 69 03/19/23 11:30 Respiratory Rate 16 03/19/23 10:12 Blood Pressure 138/74 03/19/23 11:30 Pulse Oximetry 97 03/19/23 11:30 Oxygen Delivery Me thod Room Air 03/19/23 11:30 MDM - Back Pain/Injury Medical Decision Making Patient had x-rays of her lumbar spine which showed mild degenerative changes with no acute findings. Patient was given 1 injection of Norflex 60 mg and Toradol 60 mg IM which decrease patient's pain. Patient will be discharged home to follow-up with her PCP. Patient be prescribed meloxicam 7.51 p.o. twice daily and cyclobenzaprine 5 mg 1 p.o. 3 times daily as needed Differential Diagnosis Likely strain of lumbar region; Unlikely lumbar radiculopathy, sciatica, renal colic, pyelonephritis, thoracic back pain, AAA or discitis Medical Records I reviewed the patient's medical records. Labs I reviewed the patient's lab results. Radiology Impressions Lumbar Spine X-Ray 03/19/23 10:27 IMPRESSION: Mild degenerative changes without acute findings. All radiology interpretation(s) finalized by discharge Discharge Plan Discharge Patient Disposition: Home Clinical Impression: Low back pain Condition: Stable Prescriptions: No Action cholecalciferol (vitamin D3) 10 mcg (400 unit) capsule 10 mcg PO DAILY vitamin B complex [B Complex-Vitamin B12] Tablet 1 tab PO DAILY aspirin 81 mg Tablet,Delayed Release (Dr/Ec) 81 mg PO DAILY Alive Women's 50 Plus Gummy 120 mcg-150 mcg -37.5 mg Tablet,Chewable 1 tab PO DAILY trazodone 50 mg tablet 50 mg PO BEDTIME Allergy Relief (cetirizine) 10 mg tablet 10 mg PO DAILY levothyroxine 50 mcg tablet 50 mcg PO QAM Discharge Orders: Discharge ED (Routine); Ordered 03/19/23 Ordered By: Xavi Burnett Referrals: Tawnya Lane DO [Primary Care Provider] - Patient Instructions: Acute Low Back Pain (ED) Activity Restrictions/Additional Instructions: Please take all medicine as directed. Please use ice and heat alternating every 15 minutes as needed. Please follow-up with your family practice physician within the next 7 days for further evaluation and treatment as needed. Coding Level of Care Code ED Orthopedics Pediatric Physician for Irma Montanez
[2023-03-19 11:30] VITALS: BP 138/74; PULSE 69; O2SAT 97
== END 2023-03-19 13:45 | disposition home or self-care (01) ==
PROVIDERS: Emergency Provider Emergency Medicine; PCP Family Medicine
DX: M54.50 Low back pain, unspecified (principal); Z79.82 Long term (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 of aspirin; Z86.73 Personal history of transient ischemic attack (TIA), and cerebral infarction without residual deficits; Z87.891 Personal history of nicotine dependence
CPT/HCPCS: 72100; 96372; 99284; J1885; J2360

== ENCOUNTER 2023-09-19 08:26 | Outpatient (CLI) | payer MEDICARE, MEDICAID, SELFPAY ==
--- NOTE | 2023-09-19 08:28 | MM_ITS ---
WS: [id number] BILATERAL SCREENING DIGITAL TOMOSYNTHESIS MAMMOGRAM WITH CAD HISTORY: SCREEN COMPARISON: 04/08/2022 Bilateral CC and MLO views with tomosynthesis and synthetic mammography submitted. Computer aided det ection analyzed. Breast composition: There are scattered areas of fibroglandular density. No suspicious masses, microc alcifications or architectural distortion. Benign calcification in the anterior LEFT breast. MM/[place] [id number] IMPRESSION: BI-RADS: 2-Benign FOLLOW UP: 1 Year Follow-up
== END 2023-09-19 08:27 | disposition home or self-care (01) ==
LOC: RAD 08:26
PROVIDERS: PCP Family Medicine; Visit Provider Family Medicine
DX: Z12.31 Encounter for screening mammogram for malignant neoplasm of breast (principal); R92.323 Mammographic fibroglandular density, bilateral breasts; R92.1 Mammographic calcification found on diagnostic imaging of breast
CPT/HCPCS: 77063; 77067

== ENCOUNTER → 2023-11-15 14:20 | Outpatient (BNVA) | payer MEDICARE, MEDICAID, SELFPAY | PROVIDERS: PCP Family Medicine; Visit Provider Orthopaedic Surgery | DX: M54.9 Dorsalgia, unspecified (principal); M54.6 Pain in thoracic spine; M54.50 Low back pain, unspecified | CPT/HCPCS: 72072; 72110; 99203 ==

== ENCOUNTER 2024-09-19 08:01 | Outpatient (CLI) | payer MEDICARE, MEDICAID, SELFPAY ==
--- NOTE | 2024-09-19 08:10 | MM_ITS ---
WS: [id number] BILATERAL SCREENING DIGITAL TOMOSYNTHESIS MAMMOGRAM WITH CAD HISTORY: SCREENING COMPARISON: 09/19/2023, 04/08/2022 Bilateral CC and MLO views with tomosynthesis and synthetic mammography submitted. Computer aided detection analyzed. Breast composition: There are scattered areas of fibroglandular density. No suspicious masses, microcalcifications or architectural distortion. Reidentified is a curvilinear asymmetry in the superior mid LEFT breast which has been present since 04/08/2022. Benign calcification in the anterior LEFT breast. MM/MM [facility] tomosynthesis [id number] IMPRESSION: BI-RADS: 2 - Benign. FOLLOW UP: 1 Year Follow-up
== END 2024-09-19 08:02 | disposition home or self-care (01) ==
PROVIDERS: PCP Family Medicine; Visit Provider Family Medicine
DX: Z12.31 Encounter for screening mammogram for malignant neoplasm of breast (principal); R92.323 Mammographic fibroglandular density, bilateral breasts; R92.1 Mammographic calcification found on diagnostic imaging of breast; N64.89 Other specified disorders of breast
CPT/HCPCS: 77063; 77067

== ENCOUNTER 2024-10-06 11:33 | Emergency (ER) | payer MEDICARE, MEDICAID, SELFPAY ==
--- OUTSIDE RECORDS SUMMARY | 2024-10-03 07:15 | XMS_ITS | Encounter Summary ---
Author Organization [facility] Address 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 Name Role Phone Aguila Castro MD Primary Care Provider + Reason for Visit * Auth/Cert (Routine) Specialty Diagnoses / Procedures Referred By Maryjane tim Referred To Contact Diagnoses Melena Procedures EGD NH ESOPHAGOGASTRODUODENOSCOPY TRANSORAL DIAGNOSTIC NH EGD TRANSORAL BIOPSY SINGLE/MULTIPLE NH EGD BALLOON DILATION ESOPHAGUS <30 MM DIAM NH DILATION ESOPH UNGUIDED SOUND/BOUGIE 1/Gera Parker DO [address] [address] Phone: tel: fax: Referral ID Status Reason Start Date Expiration Date Visits Re quested Visits Authorized [id number] 08/28/2024 09/28/2025 1 1 Encounter Details Date Type Department Care Team (Late st Contact Info) Description 10/03/2024 7:15 AM CDT - 10/03/2024 9:15 AM CDT Hospital Encounter Endoscopy [address] 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 Gender Identity Not on file Sexual Orientation Not on file documented as of this encounter Last Filed Vital Signs Vital Sign Reading Time Taken Comments Blood Pressure 132/73 10/03/2024 8:58 AM CDT Pulse 63 10/03/2024 8:58 AM CDT Temperature - - Respiratory Rate 12 10/03/2024 8:58 AM CDT Oxygen Saturation 100% 10/03/2024 8:58 AM CDT Inhaled Oxygen Concentration - - Weight 65.8 kg (145 lb) 09/18/2024 3:26 PM CDT Height 175.3 cm (5' 9 ) 09/18/2024 3:26 PM CDT Body Mass Index 21.41 09/18/2024 3:26 PM CDT documented in this encounter Discharge Instructions * Discharge Instructions* Pawel Kay RN - 10/03/2024 7:38 AM CDT Endoscopy Discharge Instructions Please read the instructions outlined below and refer to this sheet in the next few weeks. These discharge instructions provide you with general information [facility] Your doctor may also give you specific instructions. While your treatment has been planned according to the most current medical practices available, unavoidable complications occasionally occur. If you have any problems or questions after discharge, please call your doctor. Your procedure today is: GASTROSCOPY AND COLONOSCOPY ACTIVITY You received sedation for your procedure today and we recommend the following: No driving or activity that requires concentration until the next day. Take frequent rest periods for the rest of the day today. Do not sign any important legal documents or operate any machinery until the next day. Due to the effects of sedation you will not have the same mental functionality as you normally do, therefore you should plan to rest at home today. It is recommended that you have a responsible adultstay with you the rest of the day today. NUTRITION Drink plenty of fluids. You may resume your normal diet. Begin with a light meal and progress to your normal diet. Avoid alcoholic beverages for 24 hours or as instructed by your caregiver. MEDICATIONS You should check with your physician before resuming any blood thinners or aspirin products. You may resume your normal medications unless your caregiver tells you otherwise WHAT YOU CAN EXPECT TODAY You may experience abdominal discomfort such as a feeling of fullness or ???gas?? pains. Walking will help expel (get rid of ) air and reduce the bloated feeling in your abdomen. FOLLOW UP Your doctor will notify you of your test results in the following ways: Your doctor may not call, but you will receive a letter in the mail with your results. Most results will post to your [employer] account. To sign up for [employer], go to [email or web address] [facility] [place] Now CALL A PHYSICIAN IMMEDIATELY FOR ANY OF THE FOLLOWING: Severe pain or excessive vomiting Vomiting or passing of blood Temperature greater than 101 or shaking chills Redness, tenderness and swelling at site of IV that persists greater than 48 hours RESULTS : If specimens (polyp, biopsy, etc.) were taken the results could take several days. If youdo not receive results within 10 days please call our office. A full report will be sent to your referring physician. [facility] - Gastroenterology [address] [facility], [address] Tuesday- 8am-5pm & Fridays 8am-12pm please call: [phone] After hours voicemail: [phone] [facility] Endoscopy - Lower Level [address] [phone] [facility] Endoscopy - [place] [address] [facility] [address] [facility] Emergency Room [address] [phone] Gastroenterologists Gera Resendez, MD Geoff Nelson MD Chris Knudsen, MD Andrew Bella MD Gisela Ocasio Quinones, MD Drake Tena MD [facility] - General and Specialty Surgery [address] Col[facility] Sur[facility] Emeli Slater, DO Crescencio Aguero MD I have received instructions from a nurse prior to my procedure and I understand the plan of care when I go home today. We appreciate your trust and greatly value your feedback. Our goal is to provide you with the highest level of care and service. You may be randomly selected to participate in a telephone survey about your visit. Your feedback about the positive experiences and opportunities for us to better serve you is important to us. Thank you for choosing [facility] Endoscopy. documented in this encounter Medications at Time of Discharge carvediloL (Coreg) 6.25 mg tablet Take 1 Tablet (6.25 mg) by mouth daily. 30 Tablet 3 10/03/2024 HYDROcodone-aceta minophen (NORCO) 5-325 mg tablet Take by mouth. PRN 01/24/2023 tiZANidine (ZANAFLEX) 4 mg Tablet 09/06/2024 montelukast (SINGULAIR) 10 mg tablet 04/24/2021 cetirizine (ZyrTEC) 10 mg tablet Take 10 mg by mouth daily. 04/24/2021 levothyroxine 50 mcg tablet Take 50 mcg by mouth daily. 04/27/2021 traZODone (DESYREL) 50 mg tablet Take 50 mg by mouth daily at bedtime. aspirin (ECOTRIN EC) 81 mg Tablet, Delayed Release (E.C.) Take 81 mg by mouth daily. pantoprazole (PROTONIX) 40 mg Tablet, Delayed Release (E.C.) Take 1 tablet by mouth twice daily 60 Tablet 2 07/11/2024 ondansetron (ZOFRAN ODT) 4 mg Tablet, Rapid Dissolve Take 4 mg by mouth every 6 hours as needed for Nausea. 02/01/2023 IRON PS [id number] ACID ORAL Take by mouth. multivitamin (DAILY-MARIO) tablet Take 1 Tablet by mouth daily. vitamin E 400 unit capsule Take 400 Units by mouth daily. documented as of this encounter H&P Notes * Carmine Dickerson DO - 10/03/2024 8:09 AM CDT Endoscopy History and Physical This is a 59 y.o. female patient scheduled for Colonoscopy and EGD for the indication as listed: Melena and lower abdominal pain. Patient had risks and benefits discussed for colonoscopy with polypectomy or intervention of bleeding if necessary. The risks which include but are not limited to bleeding, perforation, swallowing ofstomach contents into the lungs (aspiration) or problems with heart or lung function associated with the procedure or sedation, unexpected allergic reaction to the medication used, damage to neighboring organs, infection and missed abnormalities such as polyps or cancers. Patient was explained thatcertain co-morbidities may increase the risk of some complications. The exam does not eliminate thefuture risk of cancer. Alternatives include stools tests and imaging studies. Patient had risks and benefits discussed for EGD with HAYES capsule, biopsies, dilation, banding orintervention for bleeding if necessary. The risks which include but are not limited to unexpected allergic reaction to the medication used, a tear in the lining of the esophagus, stomach or small intestine, bleeding which may require transfusions, failure to diagnose as this is not a perfect test, infection, swallowing of stomach contents into the lungs (aspiration) or problems with heart or lungfunction associated with the procedure or sedation. Patient was explained that certain co-morbidities may increase the risk of some complications. Alternatives were discussed such as other tests or procedures along with medication trials. Explained to patient that treatment of complications may require hospitalization, antibiotics, additional procedures, blood transfusions, surgery or other measures deemed advisable for health and well-being. Past Medical History: Diagnosis Date CVD (cerebrovascular disease) x2 eyesight only residual Hemorrhagic diathesis Hypothyroidism Temporomandibular joint disorder Thromboembolism (CMS/HCC) Past Surgical History: Procedure Laterality Date HX ARTHROSCOPIC REPAIR ACL Bilateral HX HYSTERECTOMY HX INTRACRANIAL ANEURYSM REPAIR HX IVC FILTER RETRIEVAL HX LAPAROTOMY OOPHERECTOMY Right HX TUBAL LIGATION NH ESOPHAGOGASTRODUODENOSCOPY TRANSORAL DIAGNOSTIC N/A 05/08/2024 ESOPHAGOGASTRODUODENOSCOPY performed by Gera Resendez DO at [facility] ENDOSCOPY NH REMOVAL IMPLANT DEEP Right 05/27/2021 HARDWARE REMOVAL performed by Rolando Riley MD at [facility] MAIN OR Allergies Allergen Reactions Sulfa (Sulfonamide Antibiotics) Rash and Shortness of Breath/Wheezing Reaction: Rash, Short of breath, Social History Socioeconomic History Marital status: Spouse name: Not on file Number of children: Not on file Years of education: Not on file Highest education level: Not on file Occupational History Not on file Tobacco Use Smoking status: Every Day Current packs/day: 1.00 Types: Cigarettes Smokeless tobacco: Never Vaping Use Vaping status: Never Used Substance and Sexual Activity Alcohol use: Not Currently Comment: rare Drug use: Yes Types: Marijuana Sexual activity: Not on file Other Topics Concern Not on file Social History Narrative Not on file Social Drivers of Health Food Insecurity: Not on file Transportation Needs: Not on file Feeling Safe: Not At Risk (10/03/2024) Feeling Safe Patient has indicated abuse: : No Housing Stability: Not on file Medications Prior to Admission Medication Sig Dispense Refill Last Dose/Taking HYDROcodone-acetaminophen (NORCO) 5-325 mg tablet Take by mouth. PRN Past Week tiZANidine (ZANAFLEX) 4 mg Tablet Past Week montelukast (SINGULAIR) 10 mg tablet 10/02/2024 cetirizine (ZyrTEC) 10 mg tablet Take 10 mg by mouth daily. Taking levothyroxine 50 mcg tablet Take 50 mcg by mouth daily. 10/02/2024 traZODone (DESYREL) 50 mg tablet Take 50 mg by mouth daily at bedtime. Past Week aspirin (ECOTRIN EC) 81 mg Tablet, Delayed Release (E.C.) Take 81 mg by mouth daily. 10/02/2024 pantoprazole (PROTONIX) 40 mg Tablet, Delayed Release (E.C.) Take 1 tablet by mouth twice daily (Patient not taking: Reported on 09/18/2024) 60 Tablet 2 Unknown ondansetron (ZOFRAN ODT) 4 mg Tablet, Rapid Dissolve Take 4 mg by mouth every 6 hours as needed forNausea. IRON PS [id number] ACID ORAL Take by mouth. multivitamin (DAILY-MARIO) tablet Take 1 Tablet by mouth daily. (Patient not taking: Reported on 09/18/2024) Not Taking vitamin E 400 unit capsule Take 400 Units by mouth daily. Family History Problem Relation Name Age of Onset Colon Cancer Neg Hx Physical Exam: General appearance/mental status patient alert and oriented in time place and person Neurological system within normal limits ASA Classification: ASA 2 - Patient with mild systemic disease with no functional limitations Mental Status Alert Lungs: normal respiratory effort and no acute respiratory distress Heart: regular rate Abdomen: Soft, non-tender Assessment: Plan: Will proceed with the above mentioned procedure as scheduled. documented in this encounter Procedure Notes * Carimne Dickerson DO - 10/03/2024 8:48 AM CDTAssociated Order(s): COLONOSCOPY REPORT GI Patient Name: Arlene Quach Procedure Date: 10/03/2024 Date of : 1965 Admit Type: Outpatient Age: 59 Attending MD: Carmine Dickerson DO, Procedure: Colonoscopy Indications: Melena Providers: Carmine Dickerson DO Referring MD: Tawnya Lane Medicines: Propofol per Anesthesia Complications: No immediate complications. Procedure: After I obtained informed consent, the scope was passed under direct vision. Throughout the procedure, the patient's blood pressure, pulse, and oxygen saturations were monitored continuously. The Colonoscope was introduced through the anus and advanced to the cecum, identified by appendiceal orifice and ileocecal valve. The colonoscopy was performed without difficulty. The patient tolerated the procedure well. The quality of the bowel preparation was good. Estimated Blood Loss: Estimated blood loss was minimal. Findings: A 4 mm polyp was found in the ascending colon. The polyp was sessile. The polyp was removed with a cold snare. Resection and retrieval were complete. A few localized angiodysplastic lesions vs erythema without bleeding or bleeding on contact were found in the ascending colon and in the cecum. Internal hemorrhoids were found during retroflexion. The hemorrhoids were Grade I (internal hemorrhoids that do not prolapse). Impression: - One 4 mm polyp in the ascending colon, removed with a cold snare. Resected and retrieved. - A few non-bleeding colonic angiodysplastic lesions. - Internal hemorrhoids. Recommendation: - Patient has a contact number available for emergencies. The signs and symptoms of potential delayed complications were discussed with the patient. Return to normal activities tomorrow. Written discharge instructions were provided to the patient. - Resume previous diet. - Continue present medications. - Repeat colonoscopy date to be determined after pending pathology results are reviewed for surveillance. Carmine Dickerson DO 10/03/2024 8:46:11 AM Number of Addenda: 0 Note Initiated On: 10/03/2024 8:04 AM Scope Withdrawal Time 0 hours 7 minutes 27 seconds Scope In: 8:31:57 AM Scope Out: 8:42:29 AM [address] [place], [place] * Carmine Dickerson DO - 10/03/2024 8:36 AM CDTAssociated Order(s): UPPER ENDOSCOPY REPORT GI Patient Name: Arlene Quach Procedure Date: 10/03/2024 Date of : 1965 Admit Type: Outpatient Age: 59 Attending MD: Carmine Dickerson DO, Procedure: Upper GI endoscopy Indications: Melena Providers: Carmine Dickerson DO Referring MD: Tawnya Lane Medicines: Propofol per Anesthesia Complications: No immediate complications. Procedure: After obtaining informed consent, the endoscope was passed under direct vision. Throughout the procedure, the patient's blood pressure, pulse, and oxygen saturations were monitored continuously. The Endoscope was introduced through the mouth, and advanced to the second part of duodenum. The upper GI endoscopy was accomplished without difficulty. The patient tolerated the procedure well. Estimated Blood Loss: Estimated blood loss was minimal. Findings: Grade II varices were found in the lower third of the esophagus. The Z-line was regular and was found 38 cm from the incisors. Moderate portal hypertensive gastropathy was found in the entire examined stomach. Multiple angiodysplastic lesions with bleeding on contact were found in the duodenal bulb, in the first portion of the duodenum and in the second portion of the duodenum. Coagulation for bleeding prevention using argon plasma was successful. Impression: - Grade II esophageal varices. - Z-line regular, 38 cm from the incisors. - Portal hypertensive gastropathy. 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 Treated with argon plasma coagulation (APC). - No specimens collected. Recommendation: - Patient has a contact number available for emergencies. The signs and symptoms of potential delayed complications were discussed with the patient. Return to normal activities tomorrow. Written discharge instructions were provided to the patient. - Resume previous diet. - Continue present medications. Carmine Dickerson DO 10/03/2024 8:30:43 AM Number of Addenda: 0 Note Initiated On: 10/03/2024 8:04 AM Scope Withdrawal Time Scope In: Scope Out: [address] [place], [place] documented in this encounter OR Notes * Janelle-OP - Porter Zayas, RN - 10/03/2024 8:20 AM CDT Mylicon was flushed through the biopsy port of endoscope to add in visualization during endoscopy procedure. Mylicon has been diluted in water. * Janelle-OP - Cyndy Nye RN - 09/18/2024 3:42 PM CDT Images from the original note were not included. NULYTE Your procedure date is 10/03/[address] Dickerson at [facility] Endoscopy [address] [place] [address] Below is a [facility] and a picture of the [facility] entrance to check in foryour Endoscopy: . You have an arrival time of 0720 AM. You must bring a responsible adult hazardous materials driver who is here the entire time you are here. We also ask that you have an adult who can stay with you the rest of the day because of the sedation. No foods with seeds or popcorn for 5 days prior to procedure. Denies constipation. Start clear liquid diet on 10/02/2024. (NO RED COLORED beverages or milk products) In a.m. on day prior to procedure, add water to powder in nulytley container to fill line and refrigerate. Drink 1/2 the prep starting at 5 pm the day before, drink an 8 ounce glass every 10-15 minutes. After finishing evening prep, chew 1 Gas X tablet, followed by 8 oz of water. May have additional clear liquids after first round of prep. 4 hours before you leave home, drink the other 1/2 in the same manner. After morning round of prep, chew 2 Gas X tablets, followed by 8 oz of water. May take heart, blood pressure or seizure meds. 30 min. After completing prep with sip of water only. Nothing by mouth (including clear liquids) for 2 hours prior to procedure arrival time. If afternoon appointment, may have clear liquids prior to completing second half of prep on procedure day. No diabetic meds the morning of the procedure. Do not bring any jewelry or valuables to your appointment. No driving a vehicle or operating heavy machinery and/or making important decisions for 24 hours after your procedure. Denies recent or pending surgery. If you wear oxygen and have a portable tank, please bring it with you the day of your procedure. Bring only your hazardous materials driver the day of your procedure. Appointment time and location verified. EGD You must bring a responsible adult hazardous materials driver who is here the entire time you are here. We also ask that you have an adult who can stay with you the rest of the day because of the sedation. Nothing to eat or drink after midnight except a small sip of water with morning meds the nurse specified you could have. No diabetic meds the morning of the procedure. Do not bring any jewelry or valuables to your appointment. No driving a vehicle or operating heavy machinery and/or making important decisions for 24 hours after your procedure. Denies recent or pending surgery. If you wear oxygen and have a portable tank, please bring it with you the day of your procedure. Bring only your hazardous materials driver the day of your procedure. Appointment time and location verified. documented in this encounter Plan of Treatment Not on file documented as of this encounter Procedures Procedure Name Priority Date/Time Associated Diagnosis Comments COLONOSCOPY REPORT 10/03/2024 8:48 AM CDT PATHOLOGY Pathology 10/03/2024 8:38 AM CDT UPPER ENDOSCOPY REPORT 8:36 AM CDT NH COLONOSCOPY FLX DX W/MIRIAM J SPEC WHEN PFRMD 10/03/2024 8:20 AM CDT Melena Case Notes Procedure :DBL Special Notes: Trazodone,Hydrocodone,Varices Dx: Melena BT:NONE BT managed by: Diabetic: NO Diabetic/WT med:NONE LOC & REASON:[facility] BMI: 22.45 Last Procedure date & location: EGD,05/15,Hosp Referring Provider: Tawnya Lane DO GI Doc:Dr Carmine Dickerson Insurance: [employer] Medicare/Medicaid Last GI appt 08/28/24 [place] ESOPHAGOGASTRODUODENOSCOP Y TRANSORAL DIAGNOSTIC 10/03/2024 8:20 AM CDT Melena Case Notes Procedure :DBL Special Notes: Trazodone,Hydrocodone,Varices Dx: Melena BT:NONE BT managed by: Diabetic: NO Diabetic/WT med:NONE LOC & REASON:[facility] BMI: 22.45 Last Procedure date & location: EGD,05/15,Hosp Referring Provider: Tawnya Lane DO GI Doc:Dr Carmine Dickerson Insurance: [employer] Medicare/Medicaid Last GI appt 08/28/24 [place] documented in this encounter Results * COLONOSCOPY REPORT (10/03/2024 8:48 AM CDT) Narrative Procedure Note Carmine Dickerson DO - 10/03/2024 8:48 AM CDT GI Patient Name: Arlene Quach Procedure Date: 10/03/2024 Date of : 1965 Admit Type: Outpatient Age: 59 Attending MD: Carmine Dickerson DO, Procedure: Colonoscopy Indications: Melena Providers: Carmine Dickerson DO Referring MD: Tawnya Lane Medicines: Propofol per Anesthesia Complications: No immediate complications. Procedure: After I obtained informed consent, the scope was passed under direct vision. Throughout the procedure, the patient's blood pressure, pulse, and oxygen saturations were monitored continuously. The Colonoscope was introduced through the anus and advanced to the cecum, identified by appendiceal orifice and ileocecal valve. The colonoscopy was performed without difficulty. The patient tolerated the procedure well. The quality of the bowel preparation was good. Estimated Blood Loss: Estimated blood loss was minimal. Findings: A 4 mm polyp was found in the ascending colon. The polyp was sessile. The polyp was removed with a cold snare. Resection and retrieval were complete. A few localized angiodysplastic lesions vs erythema without bleeding or bleeding on contact were found in the ascending colon and in the cecum. Internal hemorrhoids were found during retroflexion. The hemorrhoids were Grade I (internal hemorrhoids that do not prolapse). Impression: - One 4 mm polyp in the ascending colon, removed with a cold snare. Resected and retrieved. - A few non-bleeding colonic angiodysplastic lesions. - Internal hemorrhoids. Recommendation: - Patient has a contact number available for emergencies. The signs and symptoms of potential delayed complications were discussed with the patient. Return to normal activities tomorrow. Written discharge instructions were provided to the patient. - Resume previous diet. - Continue present medications. - Repeat colonoscopy date to be determined after pending pathology results are reviewed for surveillance. Carmine Dickerson DO 10/03/2024 8:46:11 AM Number of Addenda: 0 Note Initiated On: 10/03/2024 8:04 AM Scope Withdrawal Time 0 hours 7 minutes 27 seconds Scope In: 8:31:57 AM Scope Out: 8:42:29 AM [address] [place], [place] Carmine Dickerson DO GI PROCEDURE ORDERABLES Final Result * PATHOLOGY (10/03/2024 8:38 AM CDT) CASE REPORT Surgical Pathology Report Case: [id number] Authorizing Provider: Carmine Dickerson DO Collected: 10/03/2024 08:38 AM Ordering Location: Received: 10/03/2024 01:26 PM Endoscopy Pathologist: Lis Mayberry MD Specimen: Colon, ascending, polyp 7:56 AM CDT [facility] FINAL DIAGNOSIS A. Colon, ascending, polyp - Adenomatous polyp Lis Mayberry MD [id number] 7:56 AM CDT [facility] at 0756 CDT GROSS DESCRIPTION A. Received in a container of formalin labeled Main -ascending colon polyp is a single fragment of mucosa, 0.2 cm in greatest dimension. The specimen is submitted entirely in A1. Grossed by: Ai Faustin MS, PA (ASCP) 7:56 AM CDT [facility] OPERATIVE PROCEDURE 1: ESOPHAGOGASTRODUODENOSCO PY 2: COLONOSCOPY 7:56 AM CDT [facility] CLINICAL INFORMATION Melena 7:56 AM CDT [facility] COMMENT The [employer] voice-activated dictation system may have been used in the creation of this report. Inherent to this system is the possibility of errors in syntax, grammar, punctuation, or other areas that could impact interpretation. If there are interpretive questions about the report, please contact the performing pathologist. Unless gross only is specified in the diagnosis, the microscopic examination substantiates the above cited diagnosis. The performance characteristics of all immunohistochemical stains cited in this report (if any) were determined by the [facility] of in compliance with CLIA'88 regulations. Some of these tests rely on the use of analyte specific reagents and are subject to specific labeling requirements by the FDA. All controls show appropriate reactivity. This testing was developed by the [facility] of . It has not been cleared or approved by the FDA. The FDA has determined that such clearance or approval is not necessary. 7:56 AM CDT [facility] Tissue ASCENDING COLON STRUCTURE / Unknown Collection / Unknown 10/03/2024 8:38 AM CDT 10/03/2024 1:26 PM CDT Comment:Verified by AA/Aguila Guerrero MD us Carmine Dickerson DO PATHOLOGY/CYTOLOGY ORDE MUKESH Final Result [facility] CLIA # [id number] [address] [place] [address] [place], [place] [address] * UPPER ENDOSCOPY REPORT (10/03/2024 8:36 AM CDT) Narrative Procedure Note Carmine Dickerson DO - 10/03/2024 8:36 AM CDT GI Patient Name: Arlene Quach Procedure Date: 10/03/2024 Date of : 1965 Admit Type: Outpatient Age: 59 Attending MD: Carmine Dickerson DO, Procedure: Upper GI endoscopy Indications: Melena Providers: Carmine Dickerson DO Referring MD: Tawnya Lane Medicines: Propofol per Anesthesia Complications: No immediate complications. Procedure: After obtaining informed consent, the endoscope was passed under direct vision. Throughout the procedure, the patient's blood pressure, pulse, and oxygen saturations were monitored continuously. The Endoscope was introduced through the mouth, and advanced to the second part of duodenum. The upper GI endoscopy was accomplished without difficulty. The patient tolerated the procedure well. Estimated Blood Loss: Estimated blood loss was minimal. Findings: Grade II varices were found in the lower third of the esophagus. The Z-line was regular and was found 38 cm from the incisors. Moderate portal hypertensive gastropathy was found in the entire examined stomach. Multiple angiodysplastic lesions with bleeding on contact were found in the duodenal bulb, in the first portion of the duodenum and in the second portion of the duodenum. Coagulation for bleeding prevention using argon plasma was successful. Impression: - Grade II esophageal varices. - Z-line regular, 38 cm from the incisors. - Portal hypertensive gastropathy. 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 Treated with argon plasma coagulation (APC). - No specimens collected. Recommendation: - Patient has a contact number available for emergencies. The signs and symptoms of potential delayed complications were discussed with the patient. Return to normal activities tomorrow. Written discharge instructions were provided to the patient. - Resume previous diet. - Continue present medications. Carmine Dickerson DO 10/03/2024 8:30:43 AM Number of Addenda: 0 Note Initiated On: 10/03/2024 8:04 AM Scope Withdrawal Time Scope In: Scope Out: [address] [facility] [place] [place] Carmine Dickerson DO GI PROCEDURE ORDERABLES Final Result documented in this encounter Visit Diagnoses Not on filedocumented in this encounter Care Teams Ferryboat Operator Helper Relationship Specialty Start Date End Date Aguila Castro MD [address] [place] [phone] PCP - General Family Practice 05/26/21 documented as of this encounter
--- OUTSIDE RECORDS SUMMARY | 2024-10-03 08:03 | XMS_ITS | Encounter Summary ---
Author Organization [facility] Address [address] [place] [address] Care Team Providers Care Chemistry Lab Instructor Name Role Phone Aguila Castro MD Primary Care Provider + Reason for Visit * Auth/Cert (Routine) Specialty Diagnoses / Procedures Referred By Maryjane tim Referred To Contact Diagnoses Melena Procedures EGD LA ESOPHAGOGASTRODUODENOSCOPY TRANSORAL DIAGNOSTIC LA EGD TRANSORAL BIOPSY SINGLE/MULTIPLE LA EGD BALLOON DILATION ESOPHAGUS <30 MM DIAM LA DILATION ESOPH UNGUIDED SOUND/BOUGIE 1/ANDREST Gera Luther, DO [address] [facility] [address] [place] [address] Phone: tel: fax: Referral ID Status Reason Start Date Expiration Date Visits Re quested Visits Authorized [id number] 08/28/2024 09/28/2025 1 1 Encounter Details Date Type Department Care Team (Late st Contact Info) Description 10/03/2024 8:03 AM CDT Anesthesia Event [facility] Endoscopy [address] [place] [phone] Mayo Roa DO [address] [place] [address] Anesthesia Record Procedure Summary Procedure Name Responsible Anesthesiologist Anesthesia Start Time Anesthesia Stop Time ESOPHAGOGASTRODUODENOSCOPY (Esophagus) Mayo Roa DO 10/03/24 0803 10/03/24 0845 Events Date Time Event Comment 10/03/2024 0751 0800 AN Equip Check Anesthesia eq uipment and materials checked in accordance with local policy. 0803 In Room This event disp lays the In Room time documented in the Surgical Log. Deleting this event will not remove it from the log but will remove it from the Grid and Graph timeline. 0803 An Start 0804 An Start Data 0804 Pre-Induction Immediate pre- induction anesthetic assessment performed. Vital signs as noted on graphic. 0807 An Induction 0811 Anesthesia Ready 0811 Procedure Start This event d isplays the Procedure Start time documented in the Surgical Log. Deleting this event will not remove it from the log but will remove it from the Grid and Graph timeline. 0842 Procedure Stop This event di splays the Procedure Stop time documented in the Surgical Log. Deleting this event will not remove it from the log but will remove it from the Grid and Graph timeline. 0844 an stop data 0845 An Stop 0845 Hand-off to Receiving Clinic karthik 0846 Out of Room This event disp lays the Out of Room time documented in the Surgical Log. Deleting this event will not remove it from the log but will remove it from the Grid and Graph timeline. Meds Name Total lidocaine (XYLOCAINE) 2% injection 40 mg propofol (DIPRIVAN) 10 mg/mL injection 450 mg * Agents Name O2 O2 * Blood No blood administrations on file. 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 Stable cardiovascular and respiratory status. Appropriate mental status. Overall clinical condition satisfactory relative to the procedure performed and patient's comorbidities. No apparent anesthesia complications. Anesthesia Post Evaluation No notable events documented. Mayo Roa DO * Anesthesia Handoff - Chhaya Anna CRNA - 10/03/2024 8:45 AM CDT Post-Anesthetic transfer of care report elements to appropriate post-anesthesia recovery environment completed in accordance with procedure. I completed my handoff to the receiving nurse during which we: 1. Identified the patient 2. Identified the responsible provider 3. Reviewed the pertinent medical history 4. Discussed the surgical course 5. Reviewed intra-op anesthesia management and issues during anesthesia 6. Set expectations for post-procedure period 7. Orders as necessary and appropriate for continuation of care are present in Epic. 8. Allowed opportunity for questions and acknowledgement of understanding. Vital Signs: Vitals Value Taken Time BP Temp Resp SpO2 Pulse Heart Rate BP 130/70, HR 75, RR 20, sats 100%, temp 97.5 8:45 AM Chhaya Anna CRNA * Anesthesia Procedure Notes - Chhaya Anna CRNA - 10/03/2024 8:11 AM CDT Associated Order(s): Airway Airway Date/Time: 10/03/2024 8:11 AM Location: OR Plan: elective intubation Patient Identity Confirmed by: Verbally with patient Airway: not difficult Staffing Performed: LUCA/AKI Authorized by: Mayo Roa DO Performed by: Chhaya Anna CRNA Indications and Patient Condition: Indications for Airway Management: Anesthesia Sedation Level: sedation Plan to extubate at end of case: Yes Final Airway Details: Final Airway Type: Mask * Anesthesia Preprocedure Evaluation - Mayo Roa DO - 10/03/2024 7:50 AM CDT Anesthesia Evaluation Anesthesia Plan ASA Final: 4 MAC Preanesthesia Evaluation Arlene Quach is a 59 y.o. female Date: 10/03/2024 Time: 7:50 AM Interview: Holding Discussed with: patient Preoperative Diagnosis Melena Scheduled Procedure ESOPHAGOGASTRODUODENOSCOPY, COLONOSCOPY NPO: >8 hours Allergies Allergen Reactions Sulfa (Sulfonamide Antibiotics) Rash and Shortness of Breath/Wheezing Reaction: Rash, Short of breath, Past Medical History: Diagnosis Date CVD (cerebrovascular disease) x2 eyesight only residual Hemorrhagic diathesis Hypothyroidism Temporomandibular joint disorder Thromboembolism (CMS/HCC) Past Surgical History: Procedure Laterality Date HX ARTHROSCOPIC REPAIR ACL Bilateral HX HYSTERECTOMY HX INTRACRANIAL ANEURYSM REPAIR HX IVC FILTER RETRIEVAL HX LAPAROTOMY OOPHERECTOMY Right HX TUBAL LIGATION LA ESOPHAGOGASTRODUODENOSCOPY TRANSORAL DIAGNOSTIC N/A 05/08/2024 ESOPHAGOGASTRODUODENOSCOPY performed by Gera Resendez DO at [facility] ENDOSCOPY LA REMOVAL IMPLANT DEEP Right 05/27/2021 HARDWARE REMOVAL performed by Rolando Riley MD at [facility] MAIN OR No current facility-administered medications on file prior to encounter. Current Outpatient Medications on File Prior to Encounter Medication Sig Dispense Refill HYDROcodone-acetaminophen (NORCO) 5-325 mg tablet Take by mouth. PRN tiZANidine (ZANAFLEX) 4 mg Tablet montelukast (SINGULAIR) 10 mg tablet cetirizine (ZyrTEC) 10 mg tablet Take 10 mg by mouth daily. levothyroxine 50 mcg tablet Take 50 mcg by mouth daily. traZODone (DESYREL) 50 mg tablet Take 50 mg by mouth daily at bedtime. aspirin (ECOTRIN EC) 81 mg Tablet, Delayed Release (E.C.) Take 81 mg by mouth daily. pantoprazole (PROTONIX) 40 mg Tablet, Delayed Release (E.C.) Take 1 tablet by mouth twice daily (Patient not taking: Reported on 09/18/2024) 60 Tablet 2 ondansetron (ZOFRAN ODT) 4 mg Tablet, Rapid Dissolve Take 4 mg by mouth every 6 hours as needed forNausea. IRON PS [id number] ACID ORAL Take by mouth. multivitamin (DAILY-MARIO) tablet Take 1 Tablet by mouth daily. (Patient not taking: Reported on 09/18/2024) vitamin E 400 unit capsule Take 400 Units by mouth daily. Physical Exam: Airway Class: II (soft palate, uvula, fauces visible) Dentition: fair Pulmonary: clear to auscultation, no wheezes or rales, and unlabored breathing Cardiac: regular rate and rhythm, S1, S2 normal, no murmur, click, rub or gallop Neuro: alert Pertinent lab: No results found for this visit on 10/03/24 (from the past 24 hours). Pertinent lab: Lab Results Component Value Date/Time WBC 5.0 07/10/2024 01:01 PM HGB 11.1 (L) 07/10/2024 01:01 PM HCT 36.8 07/10/2024 01:01 PM PLT 210 07/10/2024 01:01 PM MCV 84.6 07/10/2024 01:01 PM Lab Results Component Value Date/Time NA 139 07/10/2024 01:01 PM K 3.9 07/10/2024 01:01 PM CL 107 07/10/2024 01:01 PM CO2 26 07/10/2024 01:01 PM CA 9.0 07/10/2024 01:01 PM BUN 11 07/10/2024 01:01 PM CREAT 0.97 07/10/2024 01:01 PM GLUCOSE 84 07/10/2024 01:01 PM TOTALPROTEIN 6.5 07/10/2024 01:01 PM ALBUMIN 4.2 07/10/2024 01:01 PM BILITOTAL 0.4 07/10/2024 01:01 PM ALKPHOS 69 07/10/2024 01:01 PM AST 18 07/10/2024 01:01 PM ALT 17 07/10/2024 01:01 PM BCRATIO SEE NOTE: 07/10/2024 01:01 PM The risks and benefits of the proposed anesthetic have been discussed. The patient has agreed to MAC with General as a backup. Anesthesia guideline orders initiated. Mayo Roa DO documented in this encounter Plan of Treatment Not on file documented as of this encounter Procedures Procedure Name Priority Date/Time Associated Diagnosis Comments ANESTHESIA AIRWAY Routine 10/03/2024 8:1 1 AM CDT documented in this encounter Results * Airway (10/03/2024 8:11 AM CDT) Narrative Chhaya Anna CRNA - 10/03/2024 8:11 AM CDT Chhaya Anna CRNA 10/03/2024 8:12 AM Airway Date/Time: 10/03/2024 8:11 AM Location: OR Plan: elective intubation Patient Identity Confirmed by: Verbally with patient Airway: not difficult Staffing Performed: LUCA/AKI Authorized by: Mayo Roa DO Performed by: Chhaya Anna CRNA Indications and Patient Condition: Indications for Airway Management: Anesthesia Sedation Level: sedation Plan to extubate at end of case: Yes Final Airway Details: Final Airway Type: Mask Mayo Roa DO PROCEDURE/MINOR SURGICA L ORDERABLES Final Result documented in this encounter Visit Diagnoses Not on filedocumented in this encounter Administered Medications Inactive Administered Medications - up to 3 most recent administrations Medication Order MAR Action Action Date Dose Rate Site lidocaine 2 % (XYLOCAINE) injection IV, INTRA-PROCEDURE PRN, Starting on Tue10/03/24 at 0807, Until Tue10/03/24 at 0845, Routine, Anesthesia Intra-op Given 10/03/2024 8:07 AM CDT 40 mg propofoL (DIPRIVAN) injection IV, INTRA-PROCEDURE PRN, Starting on Tue10/03/24 at 0807, Until Tue10/03/24 at 0845, Anesthesia Intra-op Given 10/03/2024 8:34 AM CDT 50 mg Given 10/03/2024 8:31 AM CDT 50 mg Given 10/03/2024 8:27 AM CDT 50 mg documented in this encounter Care Teams Chemistry Lab Instructor Relationship Specialty Start Date End Date Aguila Castro MD [address] [place] [phone] PCP - General Family Practice 05/26/21 documented as of this encounter
--- OUTSIDE RECORDS SUMMARY | 2024-10-03 08:20 | XMS_ITS | Encounter Summary ---
Author Organization [facility] Address [address] [place] [address] Care Team Providers Care Coat Check Attendant Name Role Phone Aguila Castro MD Primary Care Provider + Reason for Visit * Auth/Cert (Routine) Specialty Diagnoses / Procedures Referred By Maryjane tim Referred To Contact Diagnoses Melena Procedures EGD NH ESOPHAGOGASTRODUODENOSCOPY TRANSORAL DIAGNOSTIC NH EGD TRANSORAL BIOPSY SINGLE/MULTIPLE NH EGD BALLOON DILATION ESOPHAGUS <30 MM DIAM [place] DILATION ESOPH UNGUIDED SOUND/BOUGIE 1/Gera Parker DO [address] [address] Phone: tel: fax: Referral ID Status Reason Start Date Expiration Date Visits Re quested Visits Authorized [id number] 08/28/2024 09/28/2025 1 1 Encounter Details Date Type Department Care Team (Late st Contact Info) Description 10/03/2024 8:20 AM CDT - 10/03/2024 8:40 AM CDT Surgery [facility] Endoscopy [address] [place] [address] Carmine Dickerson DO [address] [address] ESOPHAGOGASTRODUODENOSCOPY Surgery Details Date/Time Status Location OR Service Patient Class Case Class Case Type Trauma Case? 10/03/2024 8:20 AM Posted [facility]O [place] 01 Gastroenterology Outpatient Elective No Panel 1 Procedure LRB Anes Op Region Wound Class Comments ESOPHAGOGASTRODUODENOSCOPY N/A Monit ored Anesthetic Care Esophagus Procedure :DBL Special Notes: Trazodone,Hydroco done,Varices Dx: Melena BT:NONE BT managed by: Diabetic: NO Diabetic/WT med:NONE LOC & REASON:Hosp-Medic al BMI: 22.45 Last Procedure date & location: EGD,05/15,Hosp Referring Provider: Tawnya Lane DO GI Doc:Dr Carmine Dickerson Insurance: [employer] Medicare/Medicaid Last GI appt 08/28/24 [place] COLONOSCOPY N/A Monitored Anesthetic Care Anus Surgeon Surgeon Role Service Panel Carmine Dickerson, DO Primary Gastroenterolo gy 1 Case Notes Procedure :DBL Special Notes: Trazodone,Hydrocodone,Varices Dx: Melena BT:NONE BT managed by: Diabetic: NO Diabetic/WT med:NONE LOC & REASON:Hosp-Medical BMI: 22.45 Last Procedure date & location: EGD,05/15,Hosp Referring Provider: Tawnya Lane DO GI Doc:Dr Carmine Dickerson Insurance: [employer] Medicare/Medicaid Last GI appt 08/28/24 [place] documented in this encounter Social History Tobacco Use Types Packs/Day Years Used Date Smoking Tobacco: Every Day Cigarettes Smokeless Tobacco: Never Alcohol Use Standard Drinks/Week Comments Not Currently 0 (1 standard drink = 0.6 oz pur e alcohol) rare Comments No Sex and Gender Information Value Date Recorded Sex Assigned at Not on file 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 Gender Identity Not on file Sexual Orientation Not on file documented as of this encounter Last Filed Vital Signs Vital Sign Reading Time Taken Comments Blood Pressure 127/81 10/03/2024 7:45 AM CDT Pulse 66 10/03/2024 7:45 AM CDT Temperature - - Respiratory Rate 12 10/03/2024 7:45 AM CDT Oxygen Saturation 98% 10/03/2024 7:45 AM CDT Inhaled Oxygen Concentration - - Weight 65.8 kg (145 lb) 09/18/2024 3:26 PM CDT Height 175.3 cm (5' 9 ) 09/18/2024 3:26 PM CDT Body Mass Index 21.41 09/18/2024 3:26 PM CDT documented in this encounter Discharge Instructions * Discharge Instructions* Pawel Kay, AMARIS - 10/03/2024 7:38 AM CDT Endoscopy Discharge Instructions Please read the instructions outlined below and refer to this sheet in the next few weeks. These discharge instructions provide you with general information on [facility] Your doctor may also give you [...] results. Most results will post to your Starvine account. To sign up for Starvine, go to [email or web address] [facility] [place] Now CALL A PHYSICIAN IMMEDIATELY FOR ANY [...] will be sent to your referring physician. [facility] - Gastroenterology [address] [facility] [address], [address] Tuesday- 8am-5pm & Fridays 8am-12pm please call: [phone] After hours voicemail: [phone] [facility] Endoscopy - Lower Level [address] [phone] [facility] Endoscopy - [place] [address] [facility] [address] [facility] [address] [facility] Emergency [facility] [address] [facility] [phone] Gastroenterologists Gera Resendez, MD Geoff Nelson MD Chris Knudsen, MD Andrew Bella MD Gisela Ocasio Quinones, MD Drake Tena MD [facility] - General and Specialty Surgery [address] Colorectal Surgeons Emeli Slater, DO [...] important to us. Thank you for choosing [facility] Endoscopy. documented in this encounter Medications [...] as needed for Nausea. 02/01/2023 IRON PS [id number] ACID ORAL Take by mouth. multivitamin (DAILY-MARIO) [...] ESOPHAGOGASTRODUODENOSCOPY performed by Gera Resendez DO at [facility] ENDOSCOPY [place] REMOVAL IMPLANT DEEP Right 05/27/2021 HARDWARE REMOVAL performed by Rolando Riley MD at [facility] MAIN OR Allergies Allergen Reactions Sulfa (Sulfonamide [...] 6 hours as needed forNausea. IRON PS [id number] ACID ORAL Take by mouth. multivitamin (DAILY-MARIO) [...] documented in this encounter Procedure Notes * Carmine Dickerson DO - 10/03/2024 8:48 AM CDTAssociated Order(s): COLONOSCOPY REPORT [facility] GI Patient Name: Arlene Quach Procedure Date: [...] AM Scope Out: 8:42:29 AM [address] [place], [place] * Carmine Dickerson DO - 10/03/2024 8:36 AM CDTAssociated Order(s): UPPER ENDOSCOPY REPORT [facility] GI Patient Name: rAlene Quach Procedure Date: 10/03/2024 Date of : [...] Time Scope In: Scope Out: [address] [place], [place] documented in this encounter OR Notes * Janelle-OP - Porter Zayas RN - 10/03/2024 8:20 AM CDT Mylicon was flushed through the biopsy port of endoscope to add in visualization during endoscopy procedure. Mylicon has been diluted in water. * Janelle-OP - Cyndy Nye RN - 09/18/2024 3:42 PM CDT Images from the original note were not included. NULYTE Your procedure date is 10/03/[address] Dickerson at [facility] Endoscopy [address] [place] [address] Below is a map of [facility] campus and a picture of the [facility] entrance to check in foryour Endoscopy: . You have an arrival time of 0720 AM. You must bring a responsible adult local city driver who is here the entire time [...] day of your procedure. Bring only your local city driver the day of your procedure. Appointment time and location verified. EGD You must bring a responsible adult local city driver who is here the entire time [...] day of your procedure. Bring only your local city driver the day of your procedure. Appointment [...] Dickerson DO - 10/03/2024 8:48 AM CDT [facility] GI Patient Name: Arlene Quach Procedure Date: [...] Scope Out: 8:42:29 AM [address] [place], [place] Carmine Dickerson DO GI PROCEDURE ORDERABLES Final Result * PATHOLOGY (10/03/2024 8:38 AM CDT) CASE REPORT Surgical Pathology Report Case: [id number] Authorizing Provider: Carmine Dickerson DO Collected: 10/03/2024 08:38 AM Ordering Location: [facility] Received: 10/03/2024 01:26 PM Endoscopy Pathologist: Lis Mayberry MD Specimen: Colon, ascending, polyp 7:56 AM CDT [facility] FINAL DIAGNOSIS A. Colon, ascending, polyp - Adenomatous polyp Lis Mayberry MD [id number] 7:56 AM CDT [facility] at 0756 CDT GROSS DESCRIPTION A. Received in a container of formalin labeled Main -ascending colon polyp is a single fragment of mucosa, 0.2 cm in greatest dimension. The specimen is submitted entirely in A1. Grossed by: Ai Faustin MS, PA (ASCP)CM 5 7:56 AM CDT [facility] OPERATIVE PROCEDURE 1: ESOPHAGOGASTRODUODENOSCO PY 2: COLONOSCOPY 5 7:56 AM CDT [facility] CLINICAL INFORMATION Melena 5 7:56 AM CDT [facility] COMMENT The [employer]NA [employer]E voice-activated dictation system may have been used [...] determined by the [facility] of [facility] in compliance with CLIA'88 regulations. Some of these tests rely on the use of analyte specific reagents and are subject to specific labeling requirements by the FDA. All controls show appropriate reactivity. This testing was developed by the [facility]ohist[facility] of [facility]. It has not been cleared or approved by the FDA. The FDA has determined that such clearance or approval is not necessary. 7:56 AM CDT [facility] Tissue ASCENDING COLON STRUCTURE / Unknown Collection / Unknown 10/03/2024 8:38 AM CDT 10/03/2024 1:26 PM CDT Comment:Verified by AA/Aguila Guerrero MD Carmine Dickerson DO PATHOLOGY/CYTOLOGY ORDE MUKESH Final Result [facility] CLIA # [id number] [address] [place] [id number] * UPPER ENDOSCOPY REPORT (10/03/2024 8:36 AM CDT) Narrative Procedure Note Carmine Dickerson DO - 10/03/2024 8:36 AM CDT [facility] GI Patient Name: Arlene Quach Procedure Date: [...] Scope In: Scope Out: [address] [place], [place] Carmine Dickerson DO GI PROCEDURE ORDERABLES Final Result documented in this encounter Visit Diagnoses Not on filedocumented in this encounter Care Teams Coat Check Attendant Relationship Specialty Start Date End Date Aguila Castro MD [address] [place] [phone] PCP - General Family Practice 05/26/21 documented as of this encounter
--- OUTSIDE RECORDS SUMMARY | 2024-10-06 11:41 | XMS_ITS | Encounter Summary ---
Author Organization [facility] Address [address] [place] [address] Care Team Providers Care Manager Math Name Role Phone Unavailable Primary Care Provider Unavailabl e Encounter Details Date Type Department Care Team (Latest Contact Info) Description 12/09/2005 Outpatient Historical [facility] Orthopedics- 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
--- OUTSIDE RECORDS SUMMARY | 2024-10-06 11:41 | XMS_ITS | Encounter Summary ---
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
--- OUTSIDE RECORDS SUMMARY | 2024-10-06 11:41 | XMS_ITS | Encounter Summary ---
Author Organization [facility] Address [address] [place] [address] Care Team Providers Care Dam Tender Assistant Name Role Phone Unavailable Primary Care Provider Unavailabl e Encounter Details Date Type Department Care Team (Latest Contact Info) Description 08/06/1998 Outpatient Historical [facility] Oral and Maxillo Surgery[address] [place] [address] Bill Box, DDS NO ADDRESS ON FILE Dental caries (Primary Dx); Chronic gingivitis; Unspecified disorder of the teeth and supporting structures Social History Tobacco Use Types Packs/Day Years Used Date Smoking Tobacco: Never Assessed Comments Unknown Sex and Gender Information Value Date Recorded Sex Assigned at Not on file 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
--- OUTSIDE RECORDS SUMMARY | 2024-10-06 11:41 | XMS_ITS | Encounter Summary ---
Author Organization [facility] Address [address] [place] [address] Care Team Providers Care Hardwood Floor Installation Helper Name Role Phone Unavailable Primary Care Provider Unavailabl e Encounter Details Date Type Department Care Team (Latest Contact Info) Description 06/27/1998 Outpatient Historical [facility] Oral and Maxillo Surgery[address] [place] [address] Bill Box, DDS NO ADDRESS ON FILE Dental caries (Primary Dx); Unspecified disorder of the teeth and supporting structures; Periapical abscess Social History Tobacco Use Types Packs/Day Years Used Date Smoking Tobacco: Never Assessed Comments Unknown Sex and Gender Information Value Date Recorded Sex Assigned at Not on file 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
--- OUTSIDE RECORDS SUMMARY | 2024-10-06 11:41 | XMS_ITS | Encounter Summary ---
Author Organization [facility] Address [address] [place] [address] Care Team Providers Care Kiln Charger Name Role Phone Aguila Castro MD Primary Care Provider + Encounter Details Date Type Department Care Team (Latest Contact Info) Description 04/14/2007 Outpatient Historical [facility] Internal Medicine [address] [address] [place] [address] Gilberto Leung MD Elevated Blood Pressure Reading without Diagnosis of Hypertension Social History Tobacco Use Types Packs/Day Years Used Date Smoking Tobacco: Never Assessed Comments Unknown Sex and Gender Information Value Date Recorded Sex Assigned at Not on file Legal Sex Female 5:31 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 WELL 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 Gender Identity Not on file Sexual Orientation Not on file documented as of this encounter Plan of Treatment Not on file documented as of this encounter Procedures Procedure Name Priority Date/Time Associated Diagnosis Comments MICROALBUMIN/CREATININ E RATIO, RANDOM UR Routine 04/14/2007 3:34 PM OIL WELL PUMPER CBC WITH DIFFERENTIAL Routine 04/14/2007 3:34 PM OIL WELL PUMPER URINALYSIS W/REFLEX MICROSCOPIC Routine 04/14/2007 3:34 PM OIL WELL PUMPER T3 FREE Routine 04/14/2007 3:34 PM OIL WELL PUMPER TSH Routine 04/14/2007 3:34 PM OIL WELL PUMPER T4 FREE Routine 04/14/2007 3:34 PM OIL WELL PUMPER COMPREHENSIVE METABOLIC PANEL Routine 04/14/2007 3:34 PM OIL WELL PUMPER documented in this encounter Results * (ABNORMAL) COMPREHENSIVE METABOLIC PANEL (04/14/2007 3:34 PM OIL WELL PUMPER) ALKALINE PHOSPHATASE 54 35 - 104 U/L [facility] CO2 22 22 - 30 mmol/L [facility] BILIRUBIN TOTAL 0.4 0.2 - 1.0 mg/dL [facility] POTASSIUM 3.9 3.5 - 4.9 mmol/L [facility] TOTAL PROTEIN 8.0 6.3 - 8.6 g/dL [facility] GLUCOSE 86 65 - 99 mg/dL [facility] AST 28 12 - 32 U/L [facility] BUN 7 6 - 20 mg/dL [facility] CALCIUM 8.5 8.4 - 10.2 mg/dL [facility] ALBUMIN 4.6 3.4 - 4.8 g/dL [facility] CHLORIDE 99 96 - 108 mmol/L [facility] CREATININE 0.71 0.51 - 0.95 mg/dL [facility] ALT 35(H) 0 - 31 U/L [facility] SODIUM 133(L) 135 - 145 mmol/L [facility] GFR, >60 >=60 mL/min/1. 7 sq meter [facility] GFR >60 >=60 mL/min/1. 7 sq meter [facility] Comment: Estimated GFR rate interpretative information for both Americans and non- Americans is available on the [facility] Intranet at: [email or web address] Select: Lab Policies and Procedures Select: Reference Ranges - GFR Blood specimen (specimen) 04/14/2007 3:34 PM OIL WELL PUMPER 04/14/2007 8:28 PM OIL WELL PUMPER Gilberto Leung MD CHEMISTRY ORDERABLES Edited [facility] [address] [place] [address] * (ABNORMAL) URINALYSIS (04/14/2007 3:34 PM OIL WELL PUMPER) COLOR UA Pale Yellow [facility] NITRITE UA Negative Negative [facility] UROBILINOGEN UA <1 <=1 mg/dL [facility] EPITHELIAL CELLS, URINE 5-10 /HPF [facility] PH UA 6.0 5.0 - 8.0 [facility] KETONES UA Negative Negative [facility] WBC UA 1 0 - 5 /HPF [facility] CLARITY UA Slt. Cloudy(A) Clear [facility] PROTEIN UA Negative Negative [facility] BILIRUBIN UA Negative Negative [facility] LEUKOCYTE ESTERASE UA Negative Negative [facility] BACTERIA UA 1+(A) None Seen /HPF [facility] SPECIFIC GRAVITY UA 1.009 1.001 - 1.035 [facility] BLOOD UA Negative Negative [facility] GLUCOSE UA Negative Negative [facility] Urine, clean catch 04/14/2007 3:34 PM OIL WELL PUMPER 04/14/2007 8:28 PM OIL WELL PUMPER Gilberto Leung MD URINE ORDERABLES Final Resul t [facility] [address] [place] [address] * TSH (04/14/2007 3:34 PM OIL WELL PUMPER) TSH 3.89 0.27 - 4.20 uU/mL [facility] Blood specimen (specimen) 04/14/2007 3:34 PM OIL WELL PUMPER 04/14/2007 8:28 PM OIL WELL PUMPER Gilberto Leung MD CHEMISTRY ORDERABLES Final R esult Performing Organization Address City/[facility] Co de Phone Number [facility] [address] [place] [address] * T4 FREE (04/14/2007 3:34 PM OIL WELL PUMPER) T4 FREE 1.1 0.9 - 1.7 ng/dL [facility] Blood specimen (specimen) 04/14/2007 3:34 PM OIL WELL PUMPER 04/14/2007 8:28 PM OIL WELL PUMPER Gilberto Leung MD CHEMISTRY ORDERABLES Final R esult Performing Organization Address [facility] de Phone Number [facility] [address] [place] [address] * T3 FREE (04/14/2007 3:34 PM OIL WELL PUMPER) T3 FREE 3.4 2.5 - 4.4 pg/mL [facility] Blood specimen (specimen) 04/14/2007 3:34 PM OIL WELL PUMPER 04/14/2007 8:28 PM OIL WELL PUMPER Gilberto Leung MD CHEMISTRY ORDERABLES Final R esult Performing Organization Address [facility] Co de Phone Number [facility] [address] [place] [address] * MICROALBUMIN/CREATININE RATIO, RANDOM UR (04/14/2007 3:34 PM OIL WELL PUMPER) MICROALBUMIN/C REAT RATIO, UR <5 0 - 29 mg/g creatinine [facility] Urine specimen (specimen) 04/14/2007 3:34 PM OIL WELL PUMPER 04/14/2007 8:28 PM OIL WELL PUMPER Gilberto Leung MD URINE ORDERABLES Final Resul t [facility] [address] [place] [address] * (ABNORMAL) CBC WITH DIFFERENTIAL (04/14/2007 3:34 PM OIL WELL PUMPER) MCHC 33.6 31.5 - 35.5 % [facility] MCV 93.9 82.0 - 99.0 fL [facility] HEMOGLOBIN 15.0(H) 11.8 - 14.8 g/dL [facility] RDW 14.4 11.5 - 14.5 % [facility] MPV 12.2 9.3 - 12.4 fL [facility] WBC 12.2(H) 4.0 - 9.8 K/uL [facility] MCH 31.5 27.2 - 32.6 pg [facility] PLATELETS 341 140 - 350 K/uL [facility] HEMATOCRIT 44.7(H) 35.5 - 44.0 % [facility] RDW-STDEV 48.8(H) 37.1 - 48.7 fL [facility] RBC 4.76 3.90 - 4.90 M/uL [facility] EOSINOPHILS 0 0 - 7 % [facility] EOSINOPHIL ABSOLUTE 0.03 0.00 - 0.70 K/uL [facility] LYMPHOCYTES 22 16 - 45 % [facility] LYMPHOCYTE ABSOLUTE 2.69 0.70 - 4.50 K/uL [facility] BASOPHILS 0 0 - 2 % [facility] BASOPHILS ABSOLUTE 0.03 0.00 - 0.20 K/uL [facility] MONOCYTES 11 3 - 13 % [facility] MONOCYTE ABSOLUTE 1.39(H) 0.10 - 1.30 K/uL [facility] NEUTROPHILS 66 45 - 70 % [facility] NEUTROPHIL ABSOLUTE 8.05(H) 1.90 - 7.00 K/uL [facility] Blood specimen (specimen) 04/14/2007 3:34 PM OIL WELL PUMPER 04/14/2007 8:28 PM OIL WELL PUMPER Gilberto Leung MD HEMATOLOGY ORDERABLES Edited INTERFACE SYSTEM Refer to clinic/hospital department [facility] [address] [place] [address] documented in this encounter Visit Diagnoses Diagnosis Elevated blood pressure reading without diagnosis of hypertension documented in this encounter Care Teams Kiln Charger Relationship Specialty Start Date End Date Aguila Castro MD [address] [place] [phone] PCP - General Family Practice 05/26/21 documented as of this encounter
--- OUTSIDE RECORDS SUMMARY | 2024-10-06 11:41 | XMS_ITS | Patient Health Record ---
Author Organization [facility] Address [address] [place] [address] Care Team Providers Care Sewer And Drain Technician Name Role Phone Tawnya Lane DO Primary Care Provider Unavailab Anton Mckinley Unavailable [phone] Migration, Provider Unavailable Unavailable Elida James Unavailable [phone] Kelley Ai Unavailable [phone] Erick Gonzales Unavailable [phone] Allergies Allergen (clinical drug ingredient) Drug/Non Drug Allergy documented on EMR Reaction Allergy Type Onset Date Status Sulfur Rash Drug Allergy Active Results Component Value Reference Range Flag Notes zzzUrine Drug Screen (confir mation by instrument) - 09041 Reviewed date:01/31/2024 04:56:57 PM Interpretation: Performing Lab: Notes/Report: Urine Confirmation Panel (in strument) - [id number] Reviewed date:04/24/2024 10:44:16 AM Interpretation: Performing Lab: Notes/Report: 6-Acetylmorphine 0 <6 ng/mL N This derek t was developed and its performance characteristics determined by [facility]. It has not been cleared or approved by the U.S. Food and Drug Administration. 7-Aminoclonazepam 0 <60 ng/mL N This te st was developed and its performance characteristics determined by [facility]. It has not been cleared or approved by the U.S. Food and Drug Administration. Alprazolam 0 <60 ng/mL N This test was developed and its performance characteristics determined by [facility]. It has not been cleared or approved by the U.S. Food and Drug Administration. Amphetamine 0 <75 ng/mL N This test was developed and its performance characteristics determined by [facility]. It has not been cleared or approved by the U.S. Food and Drug Administration. aOH-Alprazolam 0 <60 ng/mL N This test was developed and its performance characteristics determined by [facility]. It has not been cleared or approved by the U.S. Food and Drug Administration. Buprenorphine 0.0 <7.5 ng/mL N This test w as developed and its performance characteristics determined by [facility]. It has not been cleared or approved by the U.S. Food and Drug Administration. Norbuprenorphine 0.0 <37.5 ng/mL N This te st was developed and its performance characteristics determined by [facility]. It has not been cleared or approved by the U.S. Food and Drug Administration. Carisoprodol 0 <75 ng/mL N This test wa s developed and its performance characteristics determined by [facility]. It has not been cleared or approved by the U.S. Food and Drug Administration. Codeine 0 <75 ng/mL N This test was developed and its performance characteristics determined by [facility]. It has not been cleared or approved by the U.S. Food and Drug Administration. EDDP 0 <75 ng/mL N This test was developed and its performance characteristics determined by [facility]. It has not been cleared or approved by the U.S. Food and Drug Administration. Fentanyl 0 <6 ng/mL N This test was developed and its performance characteristics determined by [facility]. It has not been cleared or approved by the U.S. Food and Drug Administration. Hydrocodone 2173 <75 ng/mL H This test was developed and its performance characteristics determined by [facility]. It has not been cleared or approved by the U.S. Food and Drug Administration. Hydromorphone 494 <75 ng/mL H This test w as developed and its performance characteristics determined by [facility]. It has not been cleared or approved by the U.S. Food and Drug Administration. Lorazepam 0 <60 ng/mL N This test was developed and its performance characteristics determined by [facility]. It has not been cleared or approved by the U.S. Food and Drug Administration. MDMA 0 <75 ng/mL N This test was developed and its performance characteristics determined by [facility]. It has not been cleared or approved by the U.S. Food and Drug Administration. Meperidine 0.0 <37.5 ng/mL N This test was developed and its performance characteristics determined by [facility]. It has not been cleared or approved by the U.S. Food and Drug Administration. Meprobamate 0 <75 ng/mL N This test was developed and its performance characteristics determined by [facility]. It has not been cleared or approved by the U.S. Food and Drug Administration. Methamphetamine 0 <75 ng/mL N This test was developed and its performance characteristics determined by [facility]. It has not been cleared or approved by the U.S. Food and Drug Administration. Methadone 0 <75 ng/mL N This test was developed and its performance characteristics determined by [facility]. It has not been cleared or approved by the U.S. Food and Drug Administration. Morphine 0 <75 ng/mL N This test was developed and its performance characteristics determined by [facility]. It has not been cleared or approved by the U.S. Food and Drug Administration. Nordiazepam 0 <60 ng/mL N This test was developed and its performance characteristics determined by [facility]. It has not been cleared or approved by the U.S. Food and Drug Administration. Norfentanyl 0 <6 ng/mL N This test was developed and its performance characteristics determined by [facility]. It has not been cleared or approved by the U.S. Food and Drug Administration. Normeperidine 0.0 <37.5 ng/mL N This test was developed and its performance characteristics determined by [facility]. It has not been cleared or approved by the U.S. Food and Drug Administration. O-desmethyltramadol 0 <75 ng/mL N This test was developed and its performance characteristics determined by [facility]. It has not been cleared or approved by the U.S. Food and Drug Administration. Oxazepam 0 <60 ng/mL N This test was developed and its performance characteristics determined by [facility]. It has not been cleared or approved by the U.S. Food and Drug Administration. Oxycodone 0.0 <37.5 ng/mL N This test was developed and its performance characteristics determined by [facility]. It has not been cleared or approved by the U.S. Food and Drug Administration. Oxymorphone 0 <75 ng/mL N This test was developed and its performance characteristics determined by [facility]. It has not been cleared or approved by the U.S. Food and Drug Administration. Phencyclidine 0.0 <7.5 ng/mL N This test w as developed and its performance characteristics determined by [facility]. It has not been cleared or approved by the U.S. Food and Drug Administration. Tapentadol 0.0 <37.5 ng/mL N This test was developed and its performance characteristics determined by [facility]. It has not been cleared or approved by the U.S. Food and Drug Administration. Temazepam 3 <60 ng/mL N This test was developed and its performance characteristics determined by [facility]. It has not been cleared or approved by the U.S. Food and Drug Administration. Tramadol 0 <75 ng/mL N This test was developed and its performance characteristics determined by [facility]. It has not been cleared or approved by the U.S. Food and Drug Administration. Norhydrocodone >5000 <75 ng/mL > This test was developed and its performance characteristics determined by [facility]. It has not been cleared or approved by the U.S. Food and Drug Administration. Noroxycodone 0 <38 ng/mL N This test wa s developed and its performance characteristics determined by [facility]. It has not been cleared or approved by the U.S. Food and Drug Administration. Pregabalin 0 <225 ng/mL N This test was developed and its performance characteristics determined by [facility]. It has not been cleared or approved by the U.S. Food and Drug Administration. Gabapentin 0 <225 ng/mL N This test was developed and its performance characteristics determined by [facility]. It has not been cleared or approved by the U.S. Food and Drug Administration. Benzoylecgonine 0.0 <37.5 ng/mL N This derek t was developed and its performance characteristics determined by [facility]. It has not been cleared or approved by the U.S. Food and Drug Administration. 4-Hydroxy Xylazine 0 <25 ng/mL N This t est was developed and its performance characteristics determined by [facility]. It has not been cleared or approved by the U.S. Food and Drug Administration. Tox Results Reviewed date:04/24/2024 10:44:16 AM Interpretation: Performing Lab: Notes/Report: Urine Drug Screen (cup read) - [id number] Reviewed date:05/24/2024 04:13:33 PM Interpretation: Performing Lab: Notes/Report: OPI + Urine Confirmation Panel (in strument) - [id number] Reviewed date:08/01/2024 02:51:22 PM Interpretation: Performing Lab: Notes/Report: 6-Acetylmorphine 0 <6 ng/mL N This derek t was developed and its performance characteristics determined by [facility]. It has not been cleared or approved by the U.S. Food and Drug Administration. 7-Aminoclonazepam 0 <60 ng/mL N This te st was developed and its performance characteristics determined by [facility]. It has not been cleared or approved by the U.S. Food and Drug Administration. Alprazolam 0 <60 ng/mL N This test was developed and its performance characteristics determined by [facility]. It has not been cleared or approved by the U.S. Food and Drug Administration. Amphetamine 0 <75 ng/mL N This test was developed and its performance characteristics determined by [facility]. It has not been cleared or approved by the U.S. Food and Drug Administration. aOH-Alprazolam 0 <60 ng/mL N This test was developed and its performance characteristics determined by [facility]. It has not been cleared or approved by the U.S. Food and Drug Administration. Buprenorphine 0.0 <7.5 ng/mL N This test w as developed and its performance characteristics determined by [facility]. It has not been cleared or approved by the U.S. Food and Drug Administration. Norbuprenorphine 0.0 <37.5 ng/mL N This te st was developed and its performance characteristics determined by [facility]. It has not been cleared or approved by the U.S. Food and Drug Administration. Carisoprodol 0 <75 ng/mL N This test wa s developed and its performance characteristics determined by [facility]. It has not been cleared or approved by the U.S. Food and Drug Administration. Codeine 0 <75 ng/mL N This test was developed and its performance characteristics determined by [facility]. It has not been cleared or approved by the U.S. Food and Drug Administration. EDDP 0 <75 ng/mL N This test was developed and its performance characteristics determined by [facility]. It has not been cleared or approved by the U.S. Food and Drug Administration. Fentanyl 0 <6 ng/mL N This test was developed and its performance characteristics determined by [facility]. It has not been cleared or approved by the U.S. Food and Drug Administration. Hydrocodone >5000 <75 ng/mL > This test was developed and its performance characteristics determined by [facility]. It has not been cleared or approved by the U.S. Food and Drug Administration. Hydromorphone 500 <75 ng/mL H This test w as developed and its performance characteristics determined by [facility]. It has not been cleared or approved by the U.S. Food and Drug Administration. Lorazepam 0 <60 ng/mL N This test was developed and its performance characteristics determined by [facility]. It has not been cleared or approved by the U.S. Food and Drug Administration. MDMA 0 <75 ng/mL N This test was developed and its performance characteristics determined by [facility]. It has not been cleared or approved by the U.S. Food and Drug Administration. Meperidine 0.0 <37.5 ng/mL N This test was developed and its performance characteristics determined by [facility]. It has not been cleared or approved by the U.S. Food and Drug Administration. Meprobamate 0 <75 ng/mL N This test was developed and its performance characteristics determined by [facility]. It has not been cleared or approved by the U.S. Food and Drug Administration. Methamphetamine 34 <75 ng/mL N This test was developed and its performance characteristics determined by [facility]. It has not been cleared or approved by the U.S. Food and Drug Administration. Methadone 0 <75 ng/mL N This test was developed and its performance characteristics determined by [facility]. It has not been cleared or approved by the U.S. Food and Drug Administration. Morphine 0 <75 ng/mL N This test was developed and its performance characteristics determined by [facility]. It has not been cleared or approved by the U.S. Food and Drug Administration. Nordiazepam 0 <60 ng/mL N This test was developed and its performance characteristics determined by [facility]. It has not been cleared or approved by the U.S. Food and Drug Administration. Norfentanyl 0 <6 ng/mL N This test was developed and its performance characteristics determined by [facility]. It has not been cleared or approved by the U.S. Food and Drug Administration. Normeperidine 0.0 <37.5 ng/mL N This test was developed and its performance characteristics determined by [facility]. It has not been cleared or approved by the U.S. Food and Drug Administration. O-desmethyltramadol 0 <75 ng/mL N This test was developed and its performance characteristics determined by [facility]. It has not been cleared or approved by the U.S. Food and Drug Administration. Oxazepam 0 <60 ng/mL N This test was developed and its performance characteristics determined by [facility]. It has not been cleared or approved by the U.S. Food and Drug Administration. Oxycodone 0.0 <37.5 ng/mL N This test was developed and its performance characteristics determined by [facility]. It has not been cleared or approved by the U.S. Food and Drug Administration. Oxymorphone 0 <75 ng/mL N This test was developed and its performance characteristics determined by [facility]. It has not been cleared or approved by the U.S. Food and Drug Administration. Phencyclidine 0.0 <7.5 ng/mL N This test w as developed and its performance characteristics determined by [facility]. It has not been cleared or approved by the U.S. Food and Drug Administration. Tapentadol 0.0 <37.5 ng/mL N This test was developed and its performance characteristics determined by [facility]. It has not been cleared or approved by the U.S. Food and Drug Administration. Temazepam 6 <60 ng/mL N This test was developed and its performance characteristics determined by [facility]. It has not been cleared or approved by the U.S. Food and Drug Administration. Tramadol 0 <75 ng/mL N This test was developed and its performance characteristics determined by [facility]. It has not been cleared or approved by the U.S. Food and Drug Administration. Norhydrocodone >5000 <75 ng/mL > This test was developed and its performance characteristics determined by [facility]. It has not been cleared or approved by the U.S. Food and Drug Administration. Noroxycodone 0 <38 ng/mL N This test wa s developed and its performance characteristics determined by [facility]. It has not been cleared or approved by the U.S. Food and Drug Administration. Pregabalin 116 <225 ng/mL N This test was developed and its performance characteristics determined by [facility]. It has not been cleared or approved by the U.S. Food and Drug Administration. Gabapentin 0 <225 ng/mL N This test was developed and its performance characteristics determined by [facility]. It has not been cleared or approved by the U.S. Food and Drug Administration. Benzoylecgonine 0.0 <37.5 ng/mL N This derek t was developed and its performance characteristics determined by [facility]. It has not been cleared or approved by the U.S. Food and Drug Administration. 4-Hydroxy Xylazine 0 <25 ng/mL N This t est was developed and its performance characteristics determined by [facility]. It has not been cleared or approved by the U.S. Food and Drug Administration. Urine Drug Screen (cup read) - [id number] Reviewed date:07/25/2024 12:33:05 PM Interpretation: Performing Lab: Notes/Report: AMP - MARLENA - BUP - BZO - MDMA - OPI + PCP - OXY + MTD - MAMP - Tox Results Reviewed date:08/01/2024 02:58:02 PM Interpretation: Performing Lab: Notes/Report: Tox Results Reviewed date:07/23/2024 02:59:35 PM Interpretation: Performing Lab: Notes/Report: Fluoro Needle For Placement - Non-Spine [id number] Reviewed date:03/29/2024 02:42:29 PM Interpretation: Performing Lab: Notes/Report: Urine Drug Screen (cup read) - [id number] Reviewed date:07/18/2024 12:37:34 PM Interpretation: Performing Lab: Notes/Report: OPI + Urine Confirmation Panel (in strument) - [id number] Reviewed date:07/23/2024 03:07:09 PM Interpretation: Performing Lab: Notes/Report: 6-Acetylmorphine 0 <6 ng/mL N This derek t was developed and its performance characteristics determined by [facility]. It has not been cleared or approved by the U.S. Food and Drug Administration. 7-Aminoclonazepam 0 <60 ng/mL N This te st was developed and its performance characteristics determined by [facility]. It has not been cleared or approved by the U.S. Food and Drug Administration. Alprazolam 0 <60 ng/mL N This test was developed and its performance characteristics determined by [facility]. It has not been cleared or approved by the U.S. Food and Drug Administration. Amphetamine 0 <75 ng/mL N This test was developed and its performance characteristics determined by [facility]. It has not been cleared or approved by the U.S. Food and Drug Administration. aOH-Alprazolam 0 <60 ng/mL N This test was developed and its performance characteristics determined by [facility]. It has not been cleared or approved by the U.S. Food and Drug Administration. Buprenorphine 0.0 <7.5 ng/mL N This test w as developed and its performance characteristics determined by [facility]. It has not been cleared or approved by the U.S. Food and Drug Administration. Norbuprenorphine 0.0 <37.5 ng/mL N This te st was developed and its performance characteristics determined by [facility]. It has not been cleared or approved by the U.S. Food and Drug Administration. Carisoprodol 0 <75 ng/mL N This test wa s developed and its performance characteristics determined by [facility]. It has not been cleared or approved by the U.S. Food and Drug Administration. Codeine 0 <75 ng/mL N This test was developed and its performance characteristics determined by [facility]. It has not been cleared or approved by the U.S. Food and Drug Administration. EDDP 0 <75 ng/mL N This test was developed and its performance characteristics determined by [facility]. It has not been cleared or approved by the U.S. Food and Drug Administration. Fentanyl 0 <6 ng/mL N This test was developed and its performance characteristics determined by [facility]. It has not been cleared or approved by the U.S. Food and Drug Administration. Hydrocodone 4382 <75 ng/mL H This test was developed and its performance characteristics determined by [facility]. It has not been cleared or approved by the U.S. Food and Drug Administration. Hydromorphone 198 <75 ng/mL H This test w as developed and its performance characteristics determined by [facility]. It has not been cleared or approved by the U.S. Food and Drug Administration. Lorazepam 0 <60 ng/mL N This test was developed and its performance characteristics determined by [facility]. It has not been cleared or approved by the U.S. Food and Drug Administration. MDMA 0 <75 ng/mL N This test was developed and its performance characteristics determined by [facility]. It has not been cleared or approved by the U.S. Food and Drug Administration. Meperidine 0.0 <37.5 ng/mL N This test was developed and its performance characteristics determined by [facility]. It has not been cleared or approved by the U.S. Food and Drug Administration. Meprobamate 0 <75 ng/mL N This test was developed and its performance characteristics determined by [facility]. It has not been cleared or approved by the U.S. Food and Drug Administration. Methamphetamine 0 <75 ng/mL N This test was developed and its performance characteristics determined by [facility]. It has not been cleared or approved by the U.S. Food and Drug Administration. Methadone 0 <75 ng/mL N This test was developed and its performance characteristics determined by [facility]. It has not been cleared or approved by the U.S. Food and Drug Administration. Morphine 0 <75 ng/mL N This test was developed and its performance characteristics determined by [facility]. It has not been cleared or approved by the U.S. Food and Drug Administration. Nordiazepam 0 <60 ng/mL N This test was developed and its performance characteristics determined by [facility]. It has not been cleared or approved by the U.S. Food and Drug Administration. Norfentanyl 0 <6 ng/mL N This test was developed and its performance characteristics determined by [facility]. It has not been cleared or approved by the U.S. Food and Drug Administration. Normeperidine 0.0 <37.5 ng/mL N This test was developed and its performance characteristics determined by [facility]. It has not been cleared or approved by the U.S. Food and Drug Administration. O-desmethyltramadol 0 <75 ng/mL N This test was developed and its performance characteristics determined by [facility]. It has not been cleared or approved by the U.S. Food and Drug Administration. Oxazepam 0 <60 ng/mL N This test was developed and its performance characteristics determined by [facility]. It has not been cleared or approved by the U.S. Food and Drug Administration. Oxycodone 0.0 <37.5 ng/mL N This test was developed and its performance characteristics determined by [facility]. It has not been cleared or approved by the U.S. Food and Drug Administration. Oxymorphone 0 <75 ng/mL N This test was developed and its performance characteristics determined by [facility]. It has not been cleared or approved by the U.S. Food and Drug Administration. Phencyclidine 0.0 <7.5 ng/mL N This test w as developed and its performance characteristics determined by [facility]. It has not been cleared or approved by the U.S. Food and Drug Administration. Tapentadol 0.0 <37.5 ng/mL N This test was developed and its performance characteristics determined by [facility]. It has not been cleared or approved by the U.S. Food and Drug Administration. Temazepam 0 <60 ng/mL N This test was developed and its performance characteristics determined by [facility]. It has not been cleared or approved by the U.S. Food and Drug Administration. Tramadol 0 <75 ng/mL N This test was developed and its performance characteristics determined by [facility]. It has not been cleared or approved by the U.S. Food and Drug Administration. Norhydrocodone >5000 <75 ng/mL > This test was developed and its performance characteristics determined by [facility]. It has not been cleared or approved by the U.S. Food and Drug Administration. Noroxycodone 0 <38 ng/mL N This test wa s developed and its performance characteristics determined by [facility]. It has not been cleared or approved by the U.S. Food and Drug Administration. Pregabalin 0 <225 ng/mL N This test was developed and its performance characteristics determined by [facility]. It has not been cleared or approved by the U.S. Food and Drug Administration. Gabapentin 3 <225 ng/mL N This test was developed and its performance characteristics determined by [facility]. It has not been cleared or approved by the U.S. Food and Drug Administration. Benzoylecgonine 0.0 <37.5 ng/mL N This derek t was developed and its performance characteristics determined by [facility]. It has not been cleared or approved by the U.S. Food and Drug Administration. 4-Hydroxy Xylazine 0 <25 ng/mL N This t est was developed and its performance characteristics determined by [facility]. It has not been cleared or approved by the U.S. Food and Drug Administration. Urine Drug Screen (cup read) - 39604 Reviewed date:09/27/2024 10:16:46 AM Interpretation: Performing Lab: Notes/Report: OPI + Reason For Referral No Information Medications Medication SIG (Take, Route, Frequency, Duration) Notes Start Date End Date Status HYDROcodone-Acetamin ophen 5-325 MG Tablet 1 tablet as needed Orally every 12 hours; Duration: 30 days As needed Do not exceed 2 per day Fill on 11-05-24 09/27/2024 12/05/2024 Active Methocarbamol 500 MG Tablet 1 tablet Orally daily; Duration: 30 days As needed Fill 30 days from previous RX 09/27/2024 11/26/2024 Active tiZANidine HCl 4 MG Tablet 1 tablet at bedtime as needed Orally Once a day; Duration: 30 days 09/06/2024 Active Aspirin *Pick strength-form from [facility] for eRX* Unknown HYDROcodone-Acetamin ophen 5-325 MG Tablet 1 tablet as needed Orally every 12 hours; Duration: 30 days As needed Do not exceed 2 per day Fill on 10-06-24 09/27/2024 11/05/2024 Active Multivitamin *Pick strength-form from [facility] for e[facility]* Unknown Senna Laxative *Pick strength-form from [facility] for e[facility]* Unknown Cetirizine *Reorder from [facility] for eRx and Interaction Alerts* Unknown Levothyroxine *Reorder from [facility] for e[facility] and Interaction Alerts* Unknown Zofran *Reorder from [facility] for e[facility] and Interaction Alerts* Unknown Vitamin B Complex *Pick strength-form from [facility] for e[facility]* Unknown Vitamin D3 *Pick strength-form from [facility] for e[facility]* Unknown Social History Social History Additional Details Category Social Info Options Details Migrated Social History Migrated Social History Alcoholic beverages? - Yes, Currently on disability? - Yes, Drug or substance abuse? - No, If yes, frequency of alcoholic beverages - less than 1 drink per week., Involved in any legal proceedings or lawsuits? - No, Marital Status - , Nonprescription drug use? - No, Participation in detoxification or rehabilitation - No, Smoking - No, Working currently? 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) 08/04/19 Active confirmed Problem Degeneration of lumbar intervertebral disc (59664889) Other intervertebral disc degeneration, lumbar region (M51.36) 08/04/19 Active confirmed Problem Abnormal gait (22213885) Unspecified abnormalities of gait and mobility (R26.9) 08/04/19 Active confirmed Problem Bilateral sacroiliitis (7391101864) Bilateral sacroiliitis (M46.1) Active confirmed Problem Sacroiliitis (48600899) Sacroiliitis (M46.1) Active confirmed Problem Abnormal gait (77564643) Abnormality of gait and mobility (R26.9) Active confirmed Problem Radiculopathy due to lumbar intervertebral disc disorder (962299121586367) 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 SI Joint w/ imaging geraldine dance (CT or fluoroscopy) - 72467 01/04/2024 01/04/2024 N/A Inj. SI Joint w/ imaging geraldine dance (CT or fluoroscopy) - 70313 03/29/2024 03/29/2024 N/A Inj. SI Joint w/ imaging geraldine dance (CT or fluoroscopy) - 88257 06/14/2024 06/14/2024 04-07 unav Inj. Trigger Points, 3 or mo re muscles - 08/22/2024 08/22/2024 N/A Encounters Encounter Location Date Provider Diagnosis [facility] [address] [address] 10/13/2023 Ai Benson [facility] [address] [address] 11/02/2023 Anton Dwyer [facility] [place] [address] [place] [phone] 12/14/2023 Anton Dwyer [facility] [address] [facility] [place] [address] 01/04/2024 Anton Millerglenroy Bilateral sacroiliitis M46.1 [facility] [place] [address] [place] [phone] 01/25/2024 Anton Dwyer Chronic pain syndrom e G89.4 ; Hip pain, left M25.552 ; Pain in right hip M25.551 ; Intervertebral disc disorder with radiculopathy of lumbar region M51.16 ; Abnormality of gait and mobility R26.9 and USP (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 of opiate analgesic Z79.891 [facility] [address] [address] 02/23/2024 Erick Gonzales Chronic pain syndrom e G89.4 ; Other intervertebral disc degeneration, thoracic region M51.34 ; Degeneration of intervertebral disc of lumbar region with discogenic back pain M51.360 ; Cyst of kidney, acquired N28.1 and USP (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 of opiate analgesic Z79.891 [facility] [address] [place] [address] 03/29/2024 Anton Dwyer Sacroiliitis M46.1 [facility] [place] [address] [place] [phone] 04/19/2024 Ai Benson Chronic pain syndrom e G89.4 ; Other intervertebral disc degeneration, thoracic region M51.34 ; Degeneration of intervertebral disc of lumbar region with discogenic back pain M51.360 ; Cyst of kidney, acquired N28.1 and USP (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 of opiate analgesic Z79.891 [facility] [place] [address] [place] [address] 05/24/2024 Ai Benson Chronic pain syndrom e G89.4 ; Other intervertebral disc degeneration, thoracic region M51.34 ; Degeneration of intervertebral disc of lumbar region with discogenic back pain M51.360 ; Cyst of kidney, acquired N28.1 and USP (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 of opiate analgesic Z79.891 [facility] [address] [place] [address] 06/14/2024 Anton Dwyer Hip pain, left M25.552 [facility] [address] [address] 07/18/2024 Anton Andersonfft Chronic pain syndrom e G89.4 ; Other intervertebral disc degeneration, thoracic region M51.34 ; Degeneration of intervertebral disc of lumbar region with discogenic back pain M51.360 ; Muscle pain, myofascial M79.18 ; Cyst of kidney, acquired N28.1 and medical terminologist (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 of opiate analgesic Z79.891 [facility] [address] [address] 07/25/2024 Anton Dwyer Chronic pain syndrom e G89.4 ; Other intervertebral disc degeneration, thoracic region M51.34 ; Degeneration of intervertebral disc of lumbar region with discogenic back pain M51.360 ; Cyst of kidney, acquired N28.1 ; medical terminologist (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 of opiate analgesic Z79.891 and Muscle pain, myofascial M79.18 [facility] [address] [address] 08/22/2024 Anton Andersonffglenroy Chronic pain syndrom e G89.4 ; Other intervertebral disc degeneration, thoracic region M51.34 ; Degeneration of intervertebral disc of lumbar region with discogenic back pain M51.360 ; Muscle pain, myofascial M79.18 ; Cyst of kidney, acquired N28.1 and USP (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 of opiate analgesic Z79.891 [facility] [place] [address] [place] [phone] 09/27/2024 Ai Benson Chronic pain syndrom e G89.4 ; Other intervertebral disc degeneration, thoracic region M51.34 ; Degeneration of intervertebral disc of lumbar region with discogenic back pain M51.360 ; Cyst of kidney, acquired N28.1 and medical terminologist (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 of opiate analgesic Z79.891 [facility] 0 12/17/2023 Provider Migration [facility] 0 0 12/18/2023 Provider Migration [facility] [place] [address] [facility] [place] [address] 02/13/2024 Anton Dwyer [facility] [place] [address] [facility] [place] [address] 02/13/2024 Anton Dwyer [facility] [address] [place] [address] 02/23/2024 Anton Dwyer Chronic pain syndrom e G89.4 [facility] [place] [address] [place] [facility] [place] [address] 02/23/2024 [facility] Janet [facility] [place] [address] [facility] [place] [address] 02/24/2024 Anton Dwyer [facility] [address] [facility] [place] [address] 03/07/2024 Anton Dwyer Chronic pain syndrom e G89.4 [facility] [place] [address] [facility] [place] [address] 04/19/2024 Elida Esparza-Pric e [facility] [place] [address] [facility] [place] [address] 05/24/2024 Anton Dwyer [facility] [place] [address] [facility] [place] [address] 09/05/2024 Anton Dwyer Chronic pain syndrom e G89.4 [facility] [place] [address] [facility] [place] [address] 09/27/2024 Anton Dwyer Other intervertebral disc degeneration, thoracic region M51.34 and Chronic pain syndrome G89.4 Assessments Encounter Date Diagnosis (ICD Code) Assessment Notes Treatment Notes Treatment Clinical Notes Section Notes 01/04/2024 Bilateral sacroiliitis (ICD-10 - M46.1) 01/25/2024 Chronic pain syndrome (ICD-10 - G89.4) I had a nice visit with the patient today regarding her chronic pain issues. She feels like the right sided sacroiliac joint injection resolved all of the issues on that side but now she is noticing issues on the left side. This is not overly surprising as the worst area of pain is usually the most noticeable so now that has resolved, the left side side has become problematic. She is interested in doing a left sided injection so we will get this scheduled in the near future and continue her medications unchanged. Schedule left SI joint injection 01/25/2024 Hip pain, left (ICD-10 - M25.552) 02/23/2024 Chronic pain syndrome (ICD-10 - G89.4) I had a nice discussion with the patient today regarding her chronic pain complaints. She states that she is currently feeling weak because she is needing an iron infusion so hopefully she will feel better after that. As far as her chronic pain goes, she is doing well but she has noticed more pain in her left lower back especially her SI joint. She is scheduled for an injection next month and is looking forward to that. Her medication also continues to provide her some relief so that will be continued as well. She will follow-up with us in about a month and half for the injection. 02/23/2024 Other intervertebral disc degeneration, thoracic region (ICD-10 - M51.34) I had a nice discussion with the patient today regarding her chronic pain complaints. She states that she is currently feeling weak because she is needing an iron infusion so hopefully she will feel better after that. As far as her chronic pain goes, she is doing well but she has noticed more pain in her left lower back especially her SI joint. She is scheduled for an injection next month and is looking forward to that. Her medication also continues to provide her some relief so that will be continued as well. She will follow-up with us in about a month and half for the injection. 02/23/2024 Chronic pain syndrome (ICD-10 - G89.4) 03/07/2024 Chronic pain syndrome (ICD-10 - G89.4) 04/19/2024 Chronic pain syndrome (ICD-10 - G89.4) I had a nice discussion with the patient today regarding her chronic pain complaints. She status post left SI joint injection which she reports unfortunately did not help her pain at all. She is doing reasonably well on her current medication regimen. She reports that she has been having more pain in her mid back lately. She states she is going to follow-up with her PCP as she is wondering if some of her pain may be due to a filter that she has placed on that side due to her blood disorder. She denies any other changes since we last seen her any untoward side effects of the medication. She will continue her medication at present level and return to clinic in 2 months to monitor for treatment effectiveness and compliance as well as for biannual appointment with Dr. Dwyer. RECOMMEND URINE TESTING TODAY Urine drug screening will be performed today to monitor compliance with opioid therapy or to serve as a baseline screen for a patient who may be a candidate for opioid therapy in the future, pending UDS results. We will monitor with in-office testing (rapid testing) today and review the results prior to dispensing prescription. All positive results will be sent for quantitative analysis to ensure accuracy and quantify amounts. Any expected positive results that return negative will also be sent for quantitative analysis. Any questionable read or any medication we cannot test for in the office confidently will be sent for quantitative analysis, as well. Patient has been made aware of this policy and agrees to abide by our urine testing policy. The patient continues with chronic pain requiring treatment to help restore function and improve quality of life. Risks of opioid therapy as well as interaction of opioids with alcohol, illicit drugs, muscle relaxers, and other sedative medications are reviewed briefly with patient again today. The patient has trialed all other reasonable treatment options and uses the medication to alleviate pain in order to remain active and rest with less pain. No clinically relevant medication side effects are noted. Last UDS and [facility] reviewed today. Patient is advised that best long-term goals include increased activity, core strengthening, proper weight management, coping strategies, avoidance of painful triggers, and targeted interventional therapy. We will see the patient for routine follow up in accordance with all clinic policies. We did remind patient today of current guidelines to decrease opioid when possible. We will continue to stress nonopioid treatment. 03/29/2024 Sacroiliitis (ICD-10 - M46.1) 05/24/2024 Chronic pain syndrome (ICD-10 - G89.4) I had a nice discussion with the patient today regarding her chronic pain complaints. She states she has had some return of her lower back pain mainly on the left side. At her last visit she felt like her left SI joint did not work as well as previous. However, today she feels it worked a lot more than what she realized. She typically states these help at least 50% for greater than 3 months. After discussion she would like to proceed with a repeat left SI joint injection. She is very tender over her left SI joint injection today. She will continue her medication at present level and she will return to clinic after procedure to monitor for treatment effectiveness and compliance. The patient continues with chronic pain requiring treatment to help restore function and improve quality of life. Risks of opioid therapy as well as interaction of opioids with alcohol, illicit drugs, muscle relaxers, and other sedative medications are reviewed briefly with patient again today. The patient has trialed all other reasonable treatment options and uses the medication to alleviate pain in order to remain active and rest with less pain. No clinically relevant medication side effects are noted. Last UDS and AR WO[facility] LATHER reviewed today. Patient is advised that best long-term goals include increased activity, core strengthening, proper weight management, coping strategies, avoidance of painful triggers, and targeted interventional therapy. We will see the patient for routine follow up in accordance with all clinic policies. We did remind patient today of current guidelines to decrease opioid when possible. We will continue to stress nonopioid treatment. The procedure and risks were discussed with the patient including but not limited to infection, bleeding, neurological complications, side effects from medications, no change in pain, worsening of pain, or even . We also discussed conservative options, surgical options, and medical management with patient as well. The patient indicates understanding and wishes to proceed with the recommended treatment approach. The patient was given written information about the procedure and all questions were answered. URINE TESTING TODAY; POINT OF SERVICE Urine drug screening will be performed today to monitor compliance with opioid therapy or to serve as a baseline screen for a patient who may be a candidate for opioid therapy in the future, pending UDS results. We will monitor with in-office testing (rapid testing) today and review the results prior to dispensing prescription, as well. Patient has been made aware of this policy. 06/14/2024 Hip pain, left (ICD-10 - M25.552) 07/25/2024 Chronic pain syndrome (ICD-10 - G89.4) RECOMMEND URINE TESTING TODAY Urine drug screening will be performed today to monitor compliance with opioid therapy or to serve as a baseline screen for a patient who may be a candidate for opioid therapy in the future, pending UDS results. We will monitor with in-office testing (rapid testing) today and review the results prior to dispensing prescription. All positive results will be sent for quantitative analysis to ensure accuracy and quantify amounts. Any expected positive results that return negative will also be sent for quantitative analysis. Any questionable read or any medication we cannot test for in the office confidently will be sent for quantitative analysis, as well. Patient has been made aware of this policy and agrees to abide by our urine testing policy. 07/18/2024 Chronic pain syndrome (ICD-10 - G89.4) I had a nice visit with the patient today regarding her chronic pain issues. She does report some improvement with the SI joint injection, but she's complaining of more pain higher up in her back on the left side. She has multiple trigger points in this region, and we discussed doing TPIs, which is what she is interested in. We will get a couple sets of these scheduled in the near future and follow up with her thereafter. 07/18/2024 Other intervertebral disc degeneration, thoracic region (ICD-10 - M51.34) 08/22/2024 Chronic pain syndrome (ICD-10 - G89.4) 09/27/2024 Chronic pain syndrome (ICD-10 - G89.4) I had a nice discussion with the patient today regarding her chronic pain complaints. She states the trigger point injections did not help her pain at all. She reports she continues with mid back and lower back pain. She does state 2 weeks ago she was diagnosed with stage IV liver failure. She states her doctor told her she cannot take the tizanidine anymore and needs to be changed to something else and suggested methocarbamol to her. After discussion we will discontinue the tizanidine and start methocarbamol 500 mg daily. I did discuss changing her over to oxycodone without the acetaminophen as the acetaminophen will be hard on her liver as well. She does not take that much and states that her doctor told her he was okay with her continuing the hydrocodone for now. I had a long discussion with her but the patient states she does not wish to change medications as she feels she may have taken oxycodone before and does not tolerate it. She reports she also has a blood disorder and is unable to take any sort of NSAIDs so that is one of the reasons her doctor is okay with her taking Tylenol. She states she is being set up with a second opinion but does not have an appointment until February 25. She will keep us updated on everything. She will return to clinic in 2 months to monitor for treatment effectiveness and compliance. The patient continues with chronic pain requiring treatment to help restore function and improve quality of life. Risks of opioid therapy as well as interaction of opioids with alcohol, illicit drugs, muscle relaxers, and other sedative medications are reviewed briefly with patient again today. The patient has trialed all other reasonable treatment options and uses the medication to alleviate pain in order to remain active and rest with less pain. No clinically relevant medication side effects are noted. Last UDS and [facility] [employer]ER reviewed today. Patient is advised that best long-term goals include increased activity, core strengthening, proper weight management, coping strategies, avoidance of painful triggers, and targeted interventional therapy. We will see the patient for routine follow up in accordance with all clinic policies. We did remind patient today of current guidelines to decrease opioid when possible. We will continue to stress nonopioid treatment. URINE TESTING TODAY; POINT OF SERVICE Urine drug screening will be performed today to monitor compliance with opioid therapy or to serve as a baseline screen for a patient who may be a candidate for opioid therapy in the future, pending UDS results. We will monitor with in-office testing (rapid testing) today and review the results prior to dispensing prescription, as well. Patient has been made aware of this policy. 09/27/2024 Other intervertebral disc degeneration, thoracic region (ICD-10 - M51.34) 09/27/2024 Chronic pain syndrome (ICD-10 - G89.4) 09/05/2024 Chronic pain syndrome (ICD-10 - G89.4) 09/27/2024 Other intervertebral disc degeneration, thoracic region (ICD-10 - M51.34) 08/22/2024 Other intervertebral disc degeneration, thoracic region (ICD-10 - M51.34) 07/18/2024 Degeneration of intervertebral disc of lumbar region with discogenic back pain (ICD-10 - M51.360) 07/25/2024 Other intervertebral disc degeneration, thoracic region (ICD-10 - M51.34) 05/24/2024 Other intervertebral disc degeneration, thoracic region (ICD-10 - M51.34) 04/19/2024 Other intervertebral disc degeneration, thoracic region (ICD-10 - M51.34) 02/23/2024 Degeneration of intervertebral disc of lumbar region with discogenic back pain (ICD-10 - M51.360) I had a nice discussion with the patient today regarding her chronic pain complaints. She states that she is currently feeling weak because she is needing an iron infusion so hopefully she will feel better after that. As far as her chronic pain goes, she is doing well but she has noticed more pain in her left lower back especially her SI joint. She is scheduled for an injection next month and is looking forward to that. Her medication also continues to provide her some relief so that will be continued as well. She will follow-up with us in about a month and half for the injection. 01/25/2024 Pain in right hip (ICD-10 - M25.551) 02/23/2024 Cyst of kidney, acquired (ICD-10 - N28.1) I had a nice discussion with the patient today regarding her chronic pain complaints. She states that she is currently feeling weak because she is needing an iron infusion so hopefully she will feel better after that. As far as her chronic pain goes, she is doing well but she has noticed more pain in her left lower back especially her SI joint. She is scheduled for an injection next month and is looking forward to that. Her medication also continues to provide her some relief so that will be continued as well. She will follow-up with us in about a month and half for the injection. 04/19/2024 Degeneration of intervertebral disc of lumbar region with discogenic back pain (ICD-10 - M51.360) 05/24/2024 Degeneration of intervertebral disc of lumbar region with discogenic back pain (ICD-10 - M51.360) 07/25/2024 Degeneration of intervertebral disc of lumbar region with discogenic back pain (ICD-10 - M51.360) 07/18/2024 Muscle pain, myofascial (ICD-10 - M79.18) 08/22/2024 Degeneration of intervertebral disc of lumbar region with discogenic back pain (ICD-10 - M51.360) 09/27/2024 Degeneration of intervertebral disc of lumbar region with discogenic back pain (ICD-10 - M51.360) 01/25/2024 Intervertebral disc disorder with radiculopathy of lumbar region (ICD-10 - M51.16) 09/27/2024 Cyst of kidney, acquired (ICD-10 - N28.1) 08/22/2024 Muscle pain, myofascial (ICD-10 - M79.18) Taut bands/trigger points were identified by method of palpation. After the site was thoroughly cleaned with alcohol, trigger point intramuscular injections with 1% Lidocaine via a 27 gauge, 1 02/24 needle for pain control and functional improvement were administered in the bilateral trapezius and bilateral latissimus dorsi muscles in office today. No bleeding points were noted. 07/18/2024 Cyst of kidney, acquired (ICD-10 - N28.1) 07/25/2024 Cyst of kidney, acquired (ICD-10 - N28.1) 05/24/2024 Cyst of kidney, acquired (ICD-10 - N28.1) 04/19/2024 Cyst of kidney, acquired (ICD-10 - N28.1) 02/23/2024 USP (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 of opiate analgesic (ICD-10 - Z79.891) I had a nice discussion with the patient today regarding her chronic pain complaints. She states that she is currently feeling weak because she is needing an iron infusion so hopefully she will feel better after that. As far as her chronic pain goes, she is doing well but she has noticed more pain in her left lower back especially her SI joint. She is scheduled for an injection next month and is looking forward to that. Her medication also continues to provide her some relief so that will be continued as well. She will follow-up with us in about a month and half for the injection. 01/25/2024 Abnormality of gait and mobility (ICD-10 - R26.9) 01/25/2024 USP (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 of opiate analgesic (ICD-10 - Z79.891) 04/19/2024 USP (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 of opiate analgesic (ICD-10 - Z79.891) 05/24/2024 medical terminologist (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 of opiate analgesic (ICD-10 - Z79.891) 07/25/2024 USP (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 of opiate analgesic (ICD-10 - Z79.891) Taut bands/trigger points identified by method of palpation. Trigger point intramuscular injections with 1% Lidocaine via a 27 gauge, 1 1/4 needle for pain control and functional improvement were administered in the right iliocostalis, right semispinalis, right supraspinous and right gluteal muscles in office today after the site was thoroughly cleaned with alcohol. No bleeding points were noted. 07/18/2024 USP (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 of opiate analgesic (ICD-10 - Z79.891) 08/22/2024 Cyst of kidney, acquired (ICD-10 - N28.1) 09/27/2024 USP (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 of opiate analgesic (ICD-10 - Z79.891) 08/22/2024 USP (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 of opiate analgesic (ICD-10 - Z79.891) 07/25/2024 Muscle pain, myofascial (ICD-10 - M79.18) 01/25/2024 Other Jose Danielle, am scribing for Anton Dwyer. Anton Danielle, personally performed the services described in this documentation , as scribed by Jose Gibsno, and it is both accurate and complete. 07/18/2024 Other Awa Danielle NCMA, am scribing for Dr. Anton Dwyer. I, Dr. Anton Dwyer, personally performed the services described in this documentation, as scribed by JAMSHID Freedman , and it is both accurate and complete. Plan Of Treatment Future Test Test Name Order Date zzzUrine Drug Screen (confirmation by in strument) - [id number] 04/19/2024 Next Appt Details Provider Name:Anton Dwyer, 11/28/2024 10:20:00 AM, [address] [place], [address], Insurance Providers Payer Name Payer Address Payer Phone Subscriber Number Group Number Insured Name Patient Relationship to Insured Coverage Start Date Coverage End Date [employer] Medicare Replacement [address] [address] [place] [address] [id number] Arlene Quach Self - patient is the insured [place] Medicaid [address] [place] [address] [id number] Arlene Quach Self - patient is the insured [place] Medicare [address] [address] [place] [address] [id number] Arlene Quach Self - patient is the insured Medications Administered Medication Instructions Date of Administration Dosage Notes BUPivacaine HCl 08/22/2024 5 mL BUPivacaine HCl 07/25/2024 5 mL Superscap ular, Trapizious, Cervical Superspinaous Medical (General) History Medical History History ICD Code Tuberculosis migraines stroke Cancer Arthritis constipation Bleeding Disorder Surgical History Surgery Date(Month/Year) Brain surgery cervical cancer surgery Eye surgery Left Hip Surgery left knee surgery Lung surgery Ovary removal Total Right Knee Replacement
--- OUTSIDE RECORDS SUMMARY | 2024-10-06 11:41 | XMS_ITS | Encounter Summary ---
Author Organization [facility] Address [address] [place] [address] Care Team Providers Care Telecommunications Cable Jointer Name Role Phone Unavailable Primary Care Provider Unavailabl e Encounter Details Date Type Department Care Team (Latest Contact Info) Description 05/26/2006 Outpatient Historical 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
--- OUTSIDE RECORDS SUMMARY | 2024-10-06 11:41 | XMS_ITS | Encounter Summary ---
Author Organization [facility] Address [address] [place] [address] Care Team Providers Care Sales Representative Gas Service Name Role Phone Unavailable Primary Care Provider Unavailabl e Encounter Details Date Type Department Care Team (Latest Contact Info) Description 09/30/2005 Outpatient Historical [facility] Orthoped[facility]- 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
--- OUTSIDE RECORDS SUMMARY | 2024-10-06 11:41 | XMS_ITS | Clinical Summary ---
Author Organization [facility] tone Address [address] [place] [address] Care Team Providers Care Winter Intern Name Role Phone Aguila Castro MD Primary Care Provider + Allergies Active Allergy Reactions Criticality Noted Date Comments Sulfa (Sulfonamide Antibiotics) Rash,Shortness of Breath/Wheezing High 02/09/2021 Reaction: Rash, Short of breath, Medications traZODone (DESYREL) 50 mg tablet Take 50 mg by mouth daily at bedtime. Active aspirin (ECOTRIN EC) 81 mg Tablet, Delayed Release (E.C.) Take 81 mg by mouth daily. Active montelukast (SINGULAIR) 10 mg tablet 04/25/19 22 Active cetirizine (ZyrTEC) 10 mg tablet Take 10 mg by mouth daily. 04/25/19 22 Active levothyroxine 50 mcg tablet Take 50 mcg by mouth daily. 04/28/19 22 Active multivitamin (DAILY-MARIO) tablet Take 1 Tablet by mouth daily. Active vitamin E 400 unit capsule Take 400 Units by mouth daily. Active ondansetron (ZOFRAN ODT) 4 mg Tablet, Rapid Dissolve Take 4 mg by mouth every 6 hours as needed for Nausea. 02/02/20 23 Active IRON PS LFLCTTL-C25-ON LIC ACID ORAL Take by mouth. A ctive pantoprazole (PROTONIX) 40 mg Tablet, Delayed Release (E.C.) Take 1 tablet by mouth twice daily 60 Tablet 2 07/12/19 25 Active Additional Information Patient not taking.Reported on 09/18/2024 HYDROcodone-ac etaminophen (NORCO) 5-325 mg tablet Take by mouth. PRN 01/25/20 23 Active tiZANidine (ZANAFLEX) 4 mg Tablet 09/07/19 25 Active carvediloL (Coreg) 6.25 mg tablet Take 1 Tablet (6.25 mg) by mouth daily. 30 Tablet 3 10/04/19 25 Active PEG-Electrolyt e Soln (NULYTELY) 420 g Recon Soln Take 4,000 mL by mouth one time only for 1 dose. Mix according to instructions, then drink 1/2 the evening prior to procedure and remaining 1/2 the morning of procedure. Must be completed 2 hours before procedure. 4000 mL 09/19/19 25 025 Discontinued simethicone 125 mg Tablet, Chewable Dispense (3) 125 mg Simethicone chewable tablets with prep as directed. 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 Esophageal varices without bleeding 05/08/2024 Overview (05/08/2024): Grade 1 Other dysphagia 05/08/2024 Gastritis determined by endoscopy 05/08/2024 Encounters Date Type Department Care Team Description 5 8:20 AM CDT - 5 8:40 AM CDT Surgery [facility] Endoscopy [address] [place] [address] Carmine Dickerson, DO ESOPHAGOGASTRODUODENOSCOPY 5 8:03 AM CDT Anesthesia Event [facility] Endoscopy [address] [place] [address] Mayo Roa, 5 7:15 AM CDT - 5 9:15 AM CDT Hospital Encounter [facility] Endoscopy [address] [place] [address] Carmine Dickerson, DO Discharge Disposition: Home or Self Care 5 External Device Data STL ABSTRACTION Provider, Abstract 5 External Device Data STL ABSTRACTION Provider, Abstract [address] [phone] Gera Resendez, DO Documentation Only 5 External Device Data STL ABSTRACTION Provider, Abstract 5 External Device Data STL ABSTRACTION Provider, Abstract [address] [phone] Gera Resendez, DO Documentation Only [address] [phone] Gera Resendez, DO Documentation 5 11:30 AM CDT Office Visit [address] [phone] Gera Resendez, DO Cirrhosis of liver without ascites, unspecified hepatic cirrhosis type (CMS/HCC) (Primary Dx); Other dysphagia; Melena 5 External Device Data STL ABSTRACTION Provider, Abstract 5 External Device Data STL ABSTRACTION Provider, Abstract 5 External Device Data STL ABSTRACTION Provider, Abstract [address] [address] Gera Resendez, DO [address] [phone] Gera Resendez, DO Patient Communication (PT had question about where to get lab work done. LVM with explanation. ) from Last 3 Months Immunizations Immunization Administration Dates Next Due Influenza Seasonal Unspecifi ed Formulation IM 12/10/2020 Influenza Seasonal Unspecifi ed Formulation PF IM 11/05/2010,12/12/2008,01/12/2008 Family History Medical History Relation Name Comments Colon Cancer Neg Hx Social History Tobacco Use Types Packs/Day Years Used Date Smoking Tobacco: Every Day Cigarettes Smokeless Tobacco: Never Tobacco Cessation:Ready to Q uit: Not Asked; Counseling Given: Not Answered Alcohol Use Standard Drinks/Week Comments Not Currently 0 (1 standard drink = 0.6 oz pur e alcohol) rare Comments No Sex and Gender Information Value Date Recorded Sex Assigned at Not on file Legal 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 Gender Identity Not on file Sexual Orientation Not on file Last Filed Vital Signs Vital Sign Reading Time Taken Comments Blood Pressure 132/73 10/03/2024 8:58 AM CDT Pulse 63 10/03/2024 8:58 AM CDT Temperature 36.4 C (97.5 F) 05/27/2021 9:45 AM CDT Respiratory Rate 12 10/03/2024 8:58 AM CDT Oxygen Saturation 100% 10/03/2024 8:58 AM CDT Inhaled Oxygen Concentration - - Weight 65.8 kg (145 lb) 09/18/2024 3:26 PM CDT Height 175.3 cm (5' 9 ) 09/18/2024 3:26 PM CDT Body Mass Index 21.41 09/18/2024 3:26 PM CDT Plan of Treatment Health Maintenance Due Date Last Done Comments DTAP/TDAP/TD VACCINES (1 - Tdap) 07/17/1983 HPV/Cotest (21-29) 1985 CERVICAL CANCER SCREENING 1994 HPV/Cotest (30-65) 1994 PAP SMEAR 1994 BREAST CANCER SCREENING 2004 FIT-DNA Q 3 years 2009 FIT/FOBT Q 1 year 2009 Flex Sig/CT Colonography Q 5 years 2009 ZOSTER VACCINE (1 of 2) 2014 HEPATITIS B VACCINES (1 of 3 - Risk 3-dose series) 2024 RSV VACCINE (60+ or ) (1 - Risk 60-74 years 1-dose series) 2024 INFLUENZA VACCINE (#1) 2024 , 11/05/2010, 12/12/2008, Additional history exists COLORECTAL SCREENING 10/04/2031 10/03/2024, 10/04/19 25 Colorectal Cancer Screening 10/04/2031 Medical Devices Explanted Type Area Conditioning Room Worker Device Identifier Shelf Expiration Date Model / Serial / Lot 6.5 Cannulated Screw Explanted:Qty: 1 on 05/27/2021 at [facility] Right: Tibia 6.5 Cannulated Screw Explanted:Qty: 1 on 05/27/2021 at [facility] Right: Tibia 6.5 Cannulated Screw Explanted:Qty: 1 on 05/27/2021 at [facility] Right: Tibia 13mm Washer Explanted:Qty: 1 on 05/27/2021 at [facility] Right: Tibia Procedures Procedure Name Priority Date/Time Associated Diagnosis Comments COLONOSCOPY REPORT 10/03/2024 8:48 AM CDT PATHOLOGY Pathology 10/03/2024 8:38 AM CDT UPPER ENDOSCOPY REPORT 8:36 AM CDT RI COLONOSCOPY FLX DX W/MIRIAM J SPEC WHEN PFRMD 10/03/2024 8:20 AM CDT Melena Case Notes Procedure :DBL Special Notes: Trazodone,Hydrocodone,Varices Dx: Melena BT:NONE BT managed by: Diabetic: NO Diabetic/WT med:NONE LOC & REASON:[facility] BMI: 22.45 Last Procedure date & location: EGD,05/15,Hosp Referring Provider: Tawnya Lane DO GI Doc:Dr Carmine Dickerson Insurance: [employer] Medicare/Medicaid Last GI appt 08/28/24 [place] ESOPHAGOGASTRODUODENOSCOP Y TRANSORAL DIAGNOSTIC 10/03/2024 8:20 AM CDT Melena Case Notes Procedure :DBL Special Notes: Trazodone,Hydrocodone,Varices Dx: Melena BT:NONE BT managed by: Diabetic: NO Diabetic/WT med:NONE LOC & REASON:[facility] BMI: 22.45 Last Procedure date & location: EGD,05/15,Hosp Referring Provider: Tawnya Lane DO GI Doc:Dr Carmine Dickerson Insurance: [employer] Medicare/Medicaid Last GI appt 08/28/24 [place] ANESTHESIA AIRWAY Routine 10/03/2024 8:11 AM CDT ALPHA FETOPROTEIN TUMOR MARKER Routine 0 07/10/2024 1:01 PM CDT Cirrhosis of liver without ascites, unspecified hepatic cirrhosis type (CMS/HCC) HEPATITIS A AB, TOTAL Routine 07/10/2024 1:01 PM CDT Cirrhosis of liver without ascites, unspecified hepatic cirrhosis type (CMS/HCC) HEPATITIS B CORE AB TOTAL Routine 2024 1:01 PM CDT Cirrhosis of liver without ascites, unspecified hepatic cirrhosis type (CMS/HCC) Encounter for screening for other viral diseases F-ACTIN IGG Routine 07/10/2024 1:01 PM CDT Cirrhosis of liver without ascites, unspecified hepatic cirrhosis type (CMS/HCC) ALPHA 1 ANTITRYPSIN Routine 07/10/2024 1:01 PM CDT Cirrhosis of liver without ascites, unspecified hepatic cirrhosis type (CMS/HCC) ACUTE HEPATITIS PANEL Routine 07/10/2024 1:01 PM CDT Cirrhosis of liver without ascites, unspecified hepatic cirrhosis type (CMS/HCC) COMPREHENSIVE METABOLIC PANEL Routine 1:01 PM CDT Cirrhosis of liver without ascites, unspecified hepatic cirrhosis type (CMS/HCC) CBC WITH DIFFERENTIAL Routine 07/10/2024 1:01 PM CDT Cirrhosis of liver without ascites, unspecified hepatic cirrhosis type (CMS/HCC) CERULOPLASMIN Routine 07/10/2024 1:01 PM CDT Cirrhosis of liver without ascites, unspecified hepatic cirrhosis type (CMS/HCC) from Last 3 Months Results * COLONOSCOPY REPORT (10/03/2024 8:48 AM CDT) Narrative Procedure Note Carmine Dickerson DO - 10/03/2024 8:48 AM CDT [facility] GI Patient Name: rAlene Quach Procedure Date: [...] AM Scope Out: 8:42:29 AM [address] [place], [place] us Carmine Dickerson DO GI PROCEDURE ORDERABLES Final Result * PATHOLOGY (10/03/2024 8:38 AM CDT) CASE REPORT Surgical Pathology Report Case: [id number] Authorizing Provider: Carmine Dickerson DO Collected: 10/03/2024 08:38 AM Ordering Location: [facility] Received: 10/03/2024 01:26 PM Endoscopy Pathologist: Lis Mayberry MD Specimen: Colon, ascending, polyp 5 7:56 AM CDT [facility] FINAL DIAGNOSIS A. Colon, ascending, polyp - Adenomatous polyp Lis Mayberry MD [id number] 5 7:56 AM CDT [facility] at 0756 CDT GROSS DESCRIPTION A. Received in a container of formalin labeled Main -ascending colon polyp is a single fragment of mucosa, 0.2 cm in greatest dimension. The specimen is submitted entirely in A1. Grossed by: Ai Faustin MS, PA (ASCP)CM 5 7:56 AM CDT [facility] OPERATIVE PROCEDURE 1: ESOPHAGOGASTRODUODENOSCO PY 2: COLONOSCOPY 5 7:56 AM CDT [facility] CLINICAL INFORMATION Melena 5 7:56 AM CDT [facility] COMMENT The [facility] voice-activated dictation system may have been used [...] determined by the Diagnostic Immunohistochemistry Laboratory of [facility] in compliance with CLIA'88 regulations. Some of these tests rely on the use of analyte specific reagents and are subject to specific labeling requirements by the FDA. All controls show appropriate reactivity. This testing was developed by the Diagnostic Immunohistochemistry Laboratory of [facility]. It has not been cleared or approved by the FDA. The FDA has determined that such clearance or approval is not necessary. 7:56 AM CDT [facility] Tissue ASCENDING COLON STRUCTURE / Unknown Collection / Unknown 10/03/2024 8:38 AM CDT 10/03/2024 1:26 PM CDT Comment:Verified by AA/Aguila Guerrero MD Carmine Dickerson DO PATHOLOGY/CYTOLOGY ORDE MUKESH Final Result [facility] CLIA # [id number] [address] [place] [address] * UPPER ENDOSCOPY REPORT (10/03/2024 8:36 AM CDT) Narrative Procedure Note Carmine Dickerson DO - 10/03/2024 8:36 AM CDT [facility] GI Patient Name: Arlene Quach Procedure Date: [...] Withdrawal Time Scope In: Scope Out: [address] [place], [place] Carmine Dickerson DO GI PROCEDURE ORDERABLES Final Result * Airway (10/03/2024 8:11 AM CDT) Narrative Chhaya Anna CRNA - 10/03/2024 8:11 AM CDT Chhaya Anna CRNA 10/03/2024 8:12 AM Airway Date/Time: 10/03/2024 8:11 AM Location: OR Plan: elective intubation Patient Identity Confirmed by: Verbally with patient Airway: not difficult Staffing Performed: USED [employer] PORTER/AKI Authorized by: Mayo Roa DO Performed by: Chhaya Anna CRNA Indications and Patient Condition: Indications for Airway Management: Anesthesia Sedation Level: sedation Plan to extubate at end of case: Yes Final Airway Details: Final Airway Type: Mask Mayo Roa DO PROCEDURE/MINOR SURGICA L ORDERABLES Final Result * F-ACTIN IGG (07/10/2024 1:01 PM CDT) SMOOTH MUSCLE AB (ACTIN) IGG <20 <20 U [facility] Comment: Reference Range: <20 U: Negative >or=20 U: Positive Antibodies recognizing actin are the main component of smooth muscle antibodies associated with auto- immune liver disease. Actin antibodies are found in approximately 75% of patients with autoimmune hepatitis (AIH) type 1, approximately 65% of patients with autoimmune cholangitis, approximately 30% of patients with primary biliary cirrhosis and approximately 2% of healthy controls. High values are closely correlated with AIH type 1. Test Performed at: [facility] [facility] [address] [facility] [address] [place], [place] Kiran Otoole M.D.,PhD Blood 07/10/2024 1:01 PM CDT 07/11/2024 4:01 AM CDT Gera Resendez DO CHEMISTRY ORDERABLES Final Re sult Performing Organization Address [facility] de Phone Number [facility] [phone] [facility] [facility] [address] [facility] [place], [place] * (ABNORMAL) HEPATITIS A AB, TOTAL (07/10/2024 1:01 PM CDT) HEPATITIS A AB REACTIVE(A ) NON-REACTI VE [facility] Comment: For additional information, please refer to http://education.Linkfluence/faq/IMZ098 (This link is being provided for informational/ educational purposes only.) Test Performed at: [facility] [address] [facility] [place] [address] Kiko Grimes MD Blood 07/10/2024 1:01 PM CDT 07/11/2024 4:01 AM CDT Gera Resendez DO CHEMISTRY ORDERABLES Final Re sult Performing Organization Address [facility] Co de Phone Number [facility] [phone] [facility] [address] [facility] [place] [address] * HEPATITIS B CORE AB TOTAL (07/10/2024 1:01 PM CDT) Pathologist [facility] HEPATITIS B CORE AB NON-REACTI VE NON-REACTI VE [facility] Comment: For additional information, please refer to http://Precog/faq/BBL755 (This link is being provided for informational/ educational purposes only.) Test Performed at: [facility] [address] [place] [address] Kiko Grimes MD Blood 07/10/2024 1:01 PM CDT 07/11/2024 4:01 AM CDT us Gera Resendez DO CHEMISTRY ORDERABLES Final Re sult [facility] [phone] [email or web address] [address] [place] [address] * ACUTE HEPATITIS PANEL (07/10/2024 1:01 PM CDT) Pathologist [facility] HEPATITIS A IGM NON-REACTI VE NON-REACT YESENIA [facility] Comment: For additional information, please refer to http://Precog/faq/OBA401 (This link is being provided for informational/ educational purposes only.) HEPATITIS B SURFACE AG NON-REACTI VE NON-REACT YESENIA [facility] Comment: For additional information, please refer to http://Precog/faq/LVQ131 (This link is being provided for informational/ educational purposes only.) HEPATITIS B CORE IGM NON-REACTI VE NON-REACT YESENIA [facility] Comment: For additional information, please refer to http://[employer].Linkfluence/faq/PQI926 (This link is being provided for informational/ educational purposes only.) HEPATITIS C AB NON-REACTI VE NON-REACT YESENIA [facility] Comment: HCV antibody was non-reactive. There is no laboratory evidence of HCV infection. In most cases, no further action is required. However, if recent HCV exposure is suspected, a test for HCV RNA (test code 47076) is suggested. For additional information please refer to http://education.Linkfluence/faq/PUN64c5 (This link is being provided for informational/ educational purposes only.) Test Performed at: [facility] [address] [facility] [place] [address] AmandaEstelle Grimes MD Blood 07/10/2024 1:01 PM CDT 07/11/2024 4:01 AM CDT Gera Resendez DO CHEMISTRY ORDERABLES Final Re sult [facility] [phone] [facility] [address] [place] [address] * CERULOPLASMIN (07/10/2024 1:01 PM CDT) CERULOPLASMIN 21 14 - 48 mg/dL [facility] Comment: Test Performed at: [facility] [address] [place] [address], [place] [address] AmandaEstelle Grimes MD Blood 07/10/2024 1:0 1 PM CDT 07/11/2024 4:01 AM CDT Gera Resendez DO CHEMISTRY ORDERABLES Final Re sult Performing Organization Address City/[facility]/ZIP Co de Phone Number [facility] [phone] [facility] [address] [place] [phone] * ALPHA 1 ANTITRYPSIN (07/10/2024 1:01 PM CDT) ALPHA 1 ANTITRYPSIN 183 83 - 199 mg/dL [email or web address] Comment: Test Performed at: [facility] [address] [facility] [place] [address] Amanda-Estelle Grimes MD Blood 07/10/2024 1:01 PM CDT 07/11/2024 4:01 AM CDT Gera Resendez DO CHEMISTRY ORDERABLES Final Re sult Performing Organization Address City/[facility] Co de Phone Number [facility] [phone] [facility] [address] [address] [place] [address] * ALPHA FETOPROTEIN TUMOR MARKER (07/10/2024 1:01 PM CDT) [facility] ALPHA FETOPROTEIN TUMOR MARKER 5.1 ng/mL [facility] Comment: Reference Range: <6.1 The use of AFP as a tumor marker in females is not recommended. This test was performed using the Alexi Elgin chemiluminescent method. Values obtained from different assay methods cannot be used interchangeably. AFP levels, regardless of value, should not be interpreted as absolute evidence of the presence or absence of disease. Test Performed at: [facility] [address] Rolando Fulton Blood 07/10/2024 1:01 PM CDT 07/11/2024 4:01 AM CDT Gera Resendez DO CHEMISTRY ORDERABLES Final Re sult Performing Organization Address [facility] de Phone Number [facility] [phone] [email or web address] [address] [place] [address] * (ABNORMAL) CBC WITH DIFFERENTIAL (07/10/2024 1:01 PM CDT) [facility] WBC 5.0 3.8 - 10.8 Thousand/u L [facility] RBC 4.35 3.80 - 5.10 Million/uL [facility] HEMOGLOBIN 11.1(L) 11.7 - 15.5 g/dL [facility] HEMATOCRIT 36.8 35.0 - 45.0 % [facility] MCV 84.6 80.0 - 100.0 fL [facility] MCH 25.5(L) 27.0 - 33.0 pg [facility] MCHC 30.2(L) 32.0 - 36.0 g/dL [facility] Comment: For adults, a slight decrease in the calculated MCHC value (in the range of 30 to 32 g/dL) is most likely not clinically significant; however, it should be interpreted with caution in correlation with other red cell parameters and the patient's clinical condition. RDW 18.0(H) 11.0 - 15.0 % [facility] PLATELETS 210 140 - 400 Thousand/u L [facility] MPV 12.2 7.5 - 12.5 fL [facility] NEUTROPHIL ABSOLUTE 3,085 1,500 - 7,800 cells/uL [facility] LYMPHOCYTE ABSOLUTE 1,415 850 - 3,900 cells/uL [facility] MONOCYTE ABSOLUTE 440 200 - 950 cells/uL [facility] EOSINOPHIL ABSOLUTE 20 15 - 500 cells/uL [facility] BASOPHILS ABSOLUTE 40 0 - 200 cells/uL [facility] NEUTROPHIL 61.7 % [facility] LYMPHOCYTES 28.3 % [facility] MONOCYTE 8.8 % [facility] EOSINOPHILS 0.4 % [facility] BASOPHILS 0.8 % [facility] Comment: Test Performed at: [facility] [address] Kiko Grimes MD Blood 07/10/2024 1:01 PM CDT 07/11/2024 4:01 AM CDT us Gera Resendez DO HEMATOLOGY ORDERABLES Final R esult [facility] [phone] [facility] [address] [place] [address] * COMPREHENSIVE METABOLIC PANEL (07/10/2024 1:01 PM CDT) GLUCOSE 84 65 - 99 mg/dL [facility] Comment: Fasting reference interval BUN 11 7 - 25 mg/dL [facility] CREATININE 0.97 0.50 - 1.03 mg/dL [facility] GFR 67 > OR = 60 mL/min/1. 73m2 [facility] BUN/CREAT RATIO SEE NOTE: 6 - 22 (calc) [facility] Comment: Not Reported: BUN and Creatinine are within reference range. SODIUM 139 135 - 146 mmol/L [facility] POTASSIUM 3.9 3.5 - 5.3 mmol/L [facility] CHLORIDE 107 98 - 110 mmol/L [facility] CO2 26 20 - 32 mmol/L [facility] CALCIUM 9.0 8.6 - 10.4 mg/dL [facility] TOTAL PROTEIN 6.5 6.1 - 8.1 g/dL [facility] ALBUMIN 4.2 3.6 - 5.1 g/dL [facility] GLOBULIN 2.3 1.9 - 3.7 g/dL (calc) [facility] ALBUMIN/GLOBULIN RATIO 1.8 1.0 - 2.5 (calc) [facility] BILIRUBIN TOTAL 0.4 0.2 - 1.2 mg/dL [facility] ALKALINE PHOSPHATASE 69 37 - 153 U/L [facility] AST 18 10 - 35 U/L [facility] ALT 17 6 - 29 U/L [facility] Comment: Test Performed at: [facility] [address] [facility] [address] Kiko Grimes MD Blood 07/10/2024 1:01 PM CDT 07/11/2024 4:01 AM CDT us Gera Resendez DO CHEMISTRY ORDERABLES Final Re sult [facility] [phone] [facility] [address] [address] [place] [phone] from Last 3 Months Insurance * Guarantor: Arlene Quach Account Type Relation to Patient Date of Phone Billing Address Personal/Family Self [address] [place] [address] [employer] [facility] [place]ICAID [place] Advance Directives For more information, please contact: [phone] * Full Code (Latest Code Status on File) Date Activated Date Inactivated Comments 10/03/2024 7:38 AM 10/03/2024 11:18 AM Care Teams Winter Intern Relationship Specialty Start Date End Date Aguila Castro MD [address] [facility] [address] [place] [id number] PCP - General Family Practice 05/26/21
--- OUTSIDE RECORDS SUMMARY | 2024-10-06 11:41 | XMS_ITS | Encounter Summary ---
Author Organization [facility] Address [address] [place] [address] Care Team Providers Care Manager Telemetry Name Role Phone Unavailable Primary Care Provider Unavailabl e Encounter Details Date Type Department Care Team (Latest Contact Info) Description 03/24/2006 Outpatient Historical [facility] Orthoped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
--- OUTSIDE RECORDS SUMMARY | 2024-10-06 11:41 | XMS_ITS | Encounter Summary ---
Author Organization [facility] Address [address] [place] [address] Care Team Providers Care Credit Historian Name Role Phone Unavailable Primary Care Provider Unavailabl e Encounter Details Date Type Department Care Team (Latest Contact Info) Description 12/31/2005 Outpatient Historical [facility] Orthopedics- 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
--- OUTSIDE RECORDS SUMMARY | 2024-10-06 11:41 | XMS_ITS | Clinical Summary ---
Author Organization [facility] Address [address] [place] [address] Care Team Providers Care Floor Finisher Helper Name Role Phone Unavailable Primary Care Provider Unavailabl e Medications meloxicam (MOBIC) 15 mg tablet Take 1 Tablet (15 mg) by mouth daily. 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 Gender Identity Not on file Sexual Orientation Not on file Last Filed Vital Signs Vital Sign Reading Time Taken Comments Blood Pressure 127/77 07/30/2020 10:47 AM CDT Pulse 80 07/30/2020 10:47 AM CDT Temperature - - Respiratory Rate - - Oxygen Saturation - - Inhaled Oxygen Concentration - - Weight 68 kg (150 lb) 07/30/2020 10:47 AM CDT Height 176.5 cm (5' 9.5 ) 07/30/2020 10:47 AM CD T Body Mass Index 21.83 07/30/2020 10:47 AM CDT Plan of Treatment Health Maintenance Due Date Last Done Comments DTAP/TDAP/TD VACCINES (1 - Tdap) 07/17/1983 HPV/Cotest (21-29) 1985 CERVICAL CANCER SCREENING 1994 HPV/Cotest (30-65) 1994 PAP SMEAR 1994 BREAST CANCER SCREENING 2004 COLORECTAL SCREENING 2009 Colorectal Cancer Screening 2009 FIT-DNA Q 3 years 2009 FIT/FOBT Q 1 year 2009 Flex Sig/CT Colonography Q 5 years 2009 ZOSTER VACCINE (1 of 2) 2014 INFLUENZA VACCINE (#1) 2024 1, 12/12/2008, 01/12/2008 RSV VACCINE (60+ or ) (1 - 1-dose 75+ series) 07/17/2039 HEPATITIS B VACCINES Aged Out No long er eligible based on patient's age to complete this topic Insurance [address] [id number] UHC DUAL COMPLETE [facility] PPO D-SNP
--- OUTSIDE RECORDS SUMMARY | 2024-10-06 11:41 | XMS_ITS | Encounter Summary ---
Author Organization [facility] Address [address] [place] [address] Care Team Providers Care Supervisor Beehive Kiln Name Role Phone Unavailable Primary Care Provider Unavailabl e Encounter Details Date Type Department Care Team (Latest Contact Info) Description 02/10/2006 Outpatient Historical [facility] Orthopedics- 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
[2024-10-06 11:49] VITALS: BP 128/77; PULSE 92; RESP 17; TEMP 36.9; O2SAT 98; BMI 20.7
--- NOTE | 2024-10-06 12:02 | CTR_ITS ---
PROCEDURE INFORMATION: Exam: CT Abdomen And Pelvis With Contrast Exam date and time: 10/06/2024 1:13 PM Age: 59 years old Clinical indication: Abdominal pain; Periumbilical; Prior surgery; Surgery date: 3-7 days post-operative; Surgery type: Recent egd and colonoscopy; Additional info: Abdominal pain, hematochezia TECHNIQUE: Imaging protocol: Computed tomography of the abdomen and pelvis with contrast. Radiation optimization: All CT scans at this facility use at least one of these dose optimization techniques: automated exposure control; mA and/or kV adjustment per patient size (includes targeted exams where dose is matched to clinical indication); or iterative reconstruction. Contrast material: OMNIPAQUE 350; Contrast volume: 100 ml; Contrast route: INTRAVENOUS (IV); COMPARISON: CT abdomen pelvis w con* [id number] 11/24/2022 12:48 PM RADIATION DOSE METRICS: Total DLP (mGy-cm): 471.17 FINDINGS: Liver: Nodular board liver. Nonenlarged. Moderately fatty. Gallbladder and biliary ducts: Normal. No calcified stones. No ductal dilation. Pancreas: Normal. No ductal dilation. Spleen: Splenomegaly 235 mm with splenic granulomata. Adrenal glands: Stable left adrenal mass measuring 12 x 12 mm. The right adrenal gland is stable as well, unremarkable. Kidneys and ureters: Bosniak class 1 numerous bilateral renal cysts. The largest of which is 16 mm on the right. No hydronephrosis. Stomach and bowel: Diverticulosis. No evidence of acute diverticulitis. Inflammatory changes by the 2nd and 3rd portions of the duodenum possibly a duodenitis. Appendix: No evidence of appendicitis. Intraperitoneal space: There is now ascites. This includes the upper abdomen extending into the pelvis. This is moderate to large. Vasculature: Very large portal vein and portal venous system. No evidence of thrombosis. Lymph nodes: Unremarkable. No enlarged lymph nodes. Urinary bladder: Unremarkable as visualized. Reproductive: Unremarkable as visualized. Bones/joints: Left hip replacement. Soft tissues: Unremarkable. CT/CT abdomen pelvis w con* [id number] IMPRESSION: 1. Nodular liver possibly hepatocellular disease. 2. Splenomegaly. 3. Very large portal venous system. 4. Stable left adrenal mass. 5. Bosniak class 1 cysts. No further workup recommended. 6. Inflammatory changes of the duodenum possibly duodenitis. Ascites. COMMENTS: Consistent with the [place] [employer]'s Incidental Findings Committee white paper (J Am Mushtaq Radiol 2018): Any incidental renal lesion less than 1 cm or classified as too small to characterize, or any incidental cystic renal lesion characterized as simple-appearing, is likely benign. No follow-up imaging is recommended for these lesions per consensus recommendations based on imaging criteria.
[2024-10-06 12:22] VITALS: BP 148/90; O2SAT 100
[2024-10-06 12:30] LABS: Hematocrit 36.6 % (36-47); Hemoglobin 11.80 g/dL (11.27-16.99); Mean Corpuscular HGB Conc 32.2 g/dL (30-55); Mean Corpuscular Hemoglobin 26.8 pg (27-33); Mean Corpuscular Volume 83.2 fl (85-98); Nucleated Red Blood Cells % 0 %; Platelet Count 177 10^3/cmm (157-399); Red Blood Count 4.40 10^6/uL (3.85-5.65); White Blood Count 5.03 10^3/uL (3.29-11.43)
[2024-10-06 12:41] LABS: INR 1.03 (0.8-1.2); Prothrombin Time 14.20 SECONDS (12.1-14.9)
[2024-10-06 12:42] LABS: Partial Thromboplastin Time 27.8 SECONDS (23.9-36.7)
[2024-10-06 12:45] LABS: Lactic Sepsis W/Reflex 1.2 mmol/L (0.5-2.2)
[2024-10-06 12:46] LABS: Alanine Aminotransferase 22 U/L (0-33); Albumin Level 4.2 g/dL (3.5-5.2); Alkaline Phosphatase 82 U/L (35-105); Anion Gap 16.9 (5-19); Aspartate Amino Transferase 24 U/L (0-32); Blood Urea Nitrogen 9 mg/dL (8-23); Calcium 9.1 mg/dL (8.5-10.5); Carbon Dioxide 23 mmol/L (22-29); Chloride 105 mmol/L (98-107); Creatinine Clr Calc Pharmacy 87.8619; Globulin 2.6 g/dL (1.3-4.6); Glucose 116 mg/dL (65-115); Lipase 18 U/L (13-60); Osmolality Calculated 292 mOsm/kg (285-295); Potassium 3.9 mmol/L (3.5-5.1); Sodium 141 mmol/L (136-145); Total Protein 6.8 g/dL (6.6-8.7)
--- NOTE | 2024-10-06 13:11 | ECG_ITS ---
[facility] Test Date: 2024-10-06 Pat Name: Arlene Quach Department: Room: Gender: Female Steam Blocker: : 1965 Requested By: Hector Fuller Order Number: [id number] Erasto MD: Je Guerrero M.D. Measurements Intervals [place] Rate: 68 P: 73 [place]: 201 QRS: 55 QRSD: 83 T: 53 QT: 401 QTc: 429 Interpretive Statements SINUS RHYTHM Compared to ECG 12/06/2022 14:01:31 No significant changes Electronically Signed On 10-06-2024 21:51:09 CDT by Je Guerrero M.D. [id number] [email or web address]
--- NOTE | 2024-10-06 13:12 | W.ED.ABDPA2 ---
HPI - Abdominal Pain General: Chief Complaint: Abdominal Pain Stated Complaint: N/D bleeding since 10/03 Time Seen by Provider: 10/06/24 12:02 History of Present Illness: Chief complaint is abdominal bloating and discomfort and bleeding. Related Data Home Medications ?Medication ?Instructions ?Recorded ?Confirmed aspirin 81 mg tablet,delayed 81 mg PO DAILY 06/02/20 10/06/24 release cetirizine 10 mg tablet (Allergy 10 mg PO DAILY 03/19/23 10/06/24 Relief (cetirizine)) trazodone 50 mg tablet 50 mg PO BEDTIME 03/19/23 10/06/24 hydrocodone 5 mg-acetaminophen 325 1 tab PO Q12H 10/06/24 10/06/24 mg tablet methocarbamol 500 mg tablet 500 mg PO DAILY PRN Pain 10/06/24 10/06/24 Previous Rx's ?Medication ?Instructions ?Recorded levothyroxine 50 mcg tablet See Rx Instructions .Route 06/14/23 .COMPLEX #90 tabs Allergies Allergy/AdvReac Type Severity Reaction Status Date / Time Sulfa (Sulfonamide Allergy ALGY-Rash Verified 11/15/23 14:51 Antibiotics) [facility] ED PFSH: Medical History (Updated 10/06/24 @ 13:57 by Hector Fuller MD) Hypothyroidism Iron deficiency anemia due to chronic blood loss Left axillary pain Helicobacter pylori gastritis Hereditary hemorrhagic telangiectasia Anterior cruciate ligament complete tear CVA (cerebral vascular accident) GERD (gastroesophageal reflux disease) Surgical History H/O esophagogastroduodenoscopy (05/01/21) cautery of 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 4 H/O esophagogastroduodenoscopy (06/03/20) 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 History of lung surgery 2009 History of colonoscopy (06/03/20) Cautery of AVM Hx of brain surgery History of eye surgery History of knee surgery History of hip surgery Hx of removal of ovary Social History Smoking and tobacco/nicotine status: never used tobacco/nicotine Quit status (tobacco/nicotine): has quit using Year quit tobacco: Nov 2021 Former quit date comment: Smoked for 40+ years Alcohol intake: current Alcohol intake frequency: few times a week Substance/Drug Use: never Marital status: Number of children: 1 Current occupational status: disabled Physical Exam Narrative: EXAM NARRATIVE: Alert, anxious, no acute distress, neck is supple, normal conjunctiva, moist mucous membranes, heart regular rate and rhythm, lung sounds are clear, abdomen soft no guarding or rebound no focal tenderness or palpable mass. Moves her neck and back freely. Skin is warm and dry. Extremities warm well-perfused. No calf tenderness or pitting edema. Speech is clear. Shows ability to reason. Course Vital Signs: Vital signs: Vital Signs Temperature 98.4 F 10/06/24 11:49 Pulse Rate 92 10/06/24 11:49 Respiratory Rate 17 10/06/24 11:49 Blood Pressure 123/67 10/06/24 14:14 Pulse Oximetry 99 10/06/24 18:05 Oxygen Delivery Me thod Room Air 10/06/24 11:49 MDM - Abdominal Pain Medical Decision Making Patient presents complaining of black stools with red blood as well that been going on since Tuesday when she states she had a colonoscopy and endoscopy. 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 She denies any known history of varices but had never heard that term before. She does not know if they removed any polyps. She states she does not know what they did. She states they prescribed her Coreg and she is not taking it because it is a blood pressure medicine and she does not want to pass out. Denies any chest pain but states she had some epigastric burning discomfort after the procedure and thinks it was from being cauterized. She states she has just generalized abdominal bloating sensation and then the black stools mixed with red blood. No shortness of breath. No fever. No vomiting. No alcohol use. She states she is not on blood thinners except for she takes a baby aspirin with a history of 2 prior strokes. On exam she is very anxious and angry. She is very emotional about having to be in the emergency department and fearful. I discussed with her at length my concerns. I do not have access to her records of the procedure at this time. She can tell me very little about what was done. CBC CMP lipase EKG troponin and CT abdomen pelvis ordered. Will call [facility] to attempt to obtain further history. Perforation, post polypectomy syndrome, GI bleeding, broad differential though GI bleeding evident by history. Patient states she is not on a PPI. I would 40 mg of Protonix IV. I ordered 1 L normal saline IV fluid bolus as patient states she has been lightheaded. Patient is very strong in the room talkative sitting up on her own does not appear in acute distress despite triage note. Patient's white count is 5. Hemoglobin is 11.8. Platelets are 177. INR is 1.03. Creatinine 0.7. Lactic was 1.2. I did order type and screen. Lipase is not elevated. I consulted with Dr. Castillo however we do not have GI here and with the complex of the patient's history with liver disease and HHT he recommended transfer. Patient agrees with this plan after informed discussion and risk-benefit. CT showed duodenal inflammation and ascites and large portal venous system. I discussed with Janessa for the hospitalist team at [facility] and Dr. Gomez is excepting. Lab Data 10/06/24 12:16 10/06/24 12:16 Labs/Radiology: Radiology Impressions Abdomen/Pelvis CT 10/06/24 12:02 IMPRESSION: 1. Nodular liver possibly hepatocellular disease. 2. Splenomegaly. 3. Very large portal venous system. 4. Stable left adrenal mass. 5. Bosniak class 1 cysts. No further workup recommended. 6. Inflammatory changes of the duodenum possibly duodenitis. Ascites. COMMENTS: Consistent with the [place] [employer]'s Incidental Findings Committee white paper (J Am Mushtaq Radiol 2018): Any incidental renal lesion less than 1 cm or classified as too small to characterize, or any incidental cystic renal lesion characterized as simple-appearing, is likely benign. No follow-up imaging is recommended for these lesions per consensus recommendations based on imaging criteria. Laboratory Results WBC 5.03 10^3/uL (3.29-11.43) 10/06/24 12:16 RBC 4.40 10^6/uL (3.85-5.65) 10/06/24 12:16 Hgb 11.80 g/dL (11.27-16.99) 10/06/24 12:16 Hct 36.6 % (36-47) 10/06/24 12:16 MCV 83.2 fl (85-98) L 10/06/24 12:16 MCH 26.8 pg (27-33) L 10/06/24 12:16 MCHC 32.2 g/dL (30-55) 10/06/24 12:16 RDW 19.9 % (12.1-15.1) H 10/06/24 12:16 Plt Count 177 10^3/cmm (157-399) 10/06/24 12:16 MPV Not Reportable 10/06/24 12:16 Neut % (Auto) 67.8 % 10/06/24 12:16 Lymph % (Auto) 21.1 % 10/06/24 12:16 Snyder % (Auto) 10.1 % 10/06/24 12:16 Eos % (Auto) 0.2 % 10/06/24 12:16 Baso % (Auto) 0.6 % 10/06/24 12:16 Neut # (Auto) 3.41 10^3/uL (1.8-7.7) 10/06/24 12:16 Lymph # (Auto) 1.1 10^3/uL (0.8-4.8) 10/06/24 12:16 Snyder # (Auto) 0.5 10^3/uL (0.2-0.9) 10/06/24 12:16 Eos # (Auto) 0.0 10^3/uL (0.0-0.8) 10/06/24 12:16 Baso # (Auto) 0.0 10^3/uL (0.0-0.1) 10/06/24 12:16 Nucleated RBC % (auto) 0 % 10/06/24 12:16 Nucleated RBCs # 0.0 /100WBC 10/06/24 12:16 PT 14.20 SECONDS (12.1-14.9) 10/06/24 12:16 INR 1.03 (0.8-1.2) 10/06/24 12:16 APTT 27.8 SECONDS (23.9-36.7) 10/06/24 12:16 Sodium 141 mmol/L (136-145) 10/06/24 12:16 Potassium 3.9 mmol/L (3.5-5.1) 10/06/24 12:16 Chloride 105 mmol/L (98-107) 10/06/24 12:16 Carbon Dioxide 23 mmol/L (22-29) 10/06/24 12:16 Anion Gap 16.9 (5-19) 10/06/24 12:16 BUN 9 mg/dL (8-23) 10/06/24 12:16 Creatinine 0.7 mg/dL (0.5-0.9) 10/06/24 12:16 GFR Calculation 85.4 mL/min (90-130) L 10/06/24 12:16 Glucose 116 mg/dL (65-115) H 10/06/24 12:16 Calculated Osmolality 292 mOsm/kg (285-295) 10/06/24 12:16 Lactic Acid 1.2 mmol/L (0.5-2.2) 10/06/24 12:16 Calcium 9.1 mg/dL (8.5-10.5) 10/06/24 12:16 Total Bilirubin 0.4 mg/dL (0.15-1.2) 10/06/24 12:16 AST 24 U/L (0-32) 10/06/24 12:16 ALT 22 U/L (0-33) 10/06/24 12:16 Alkaline Phosphatase 82 U/L (35-105) 10/06/24 12:16 Troponin T Baseline < 6 ng/L (0-10) 10/06/24 12:16 Total Protein 6.8 g/dL (6.6-8.7) 10/06/24 12:16 Albumin 4.2 g/dL (3.5-5.2) 10/06/24 12:16 Globulin 2.6 g/dL (1.3-4.6) 10/06/24 12:16 Lipase 18 U/L (13-60) 10/06/24 12:16 Urine Color Yellow (Yellow) 10/06/24 13:37 Urine Appearance Turbid (CLEAR) A 10/06/24 13:37 Urine pH 6.5 (5-7) 10/06/24 13:37 Ur Specific Dagmar 1.023 (1.005-1.030) 10/06/24 13:37 Urine Protein Trace (Negative) A 10/06/24 13:37 Urine Glucose (UA) Negative (Normal) 10/06/24 13:37 Urine Ketones 2+ (Negative) H 10/06/24 13:37 Urine Blood 2+ (Negative) A 10/06/24 13:37 Urine Nitrate Negative (Negative) 10/06/24 13:37 Urine Bilirubin Negative (Negative) 10/06/24 13:37 Urine Urobilinogen 1.0 mg/dL (Negative) 10/06/24 13:37 Ur Leukocyte Esterase Trace (Negative) A 10/06/24 13:37 Urine RBC 5-10 /hpf (0-2) H 10/06/24 13:37 Urine WBC 0-4 /hpf (0-5) H 10/06/24 13:37 Ur Squamous Epith Cells 0-4 /hpf (0-5) H 10/06/24 13:37 Calcium Oxalate Crystal 0-4 /hpf H 10/06/24 13:37 Amorphous Sediment 3+ /hpf 10/06/24 13:37 Urine Bacteria None /hpf (NONE) 10/06/24 13:37 Blood Type O Negative 10/06/24 12:16 Rho(D) Type Rh negative 10/06/24 12:16 Antibody Screen Negative 10/06/24 12:16 All radiology interpretation(s) finalized by discharge Discharge Plan Discharge Patient Disposition: Xfer Short-Term Hosp Clinical Impression: Acute GI bleeding Condition: Stable Referrals: Tawnya Lane DO [Primary Care Provider, ENGINEER FISHING VESSEL] Print Language: Spanish Coding Level of Care Code ED Billposter for Irma Montanez
[2024-10-06] MEDS: iohexol 350 mg/mL 500 mL Btl (per mL) IV (13:20)
[2024-10-06] MEDS: pantoprazole 40 mg SDV IVP (13:30)
[2024-10-06 13:35] VITALS: BP 130/69
[2024-10-06 13:41] LABS: Troponin(5th) Baseline < 6 ng/L (0-10)
[2024-10-06 13:45] LABS: Glucose Urine UA Negative (Normal); Nitrate Urine Negative (Negative); Specific Gravity, Urine 1.023 (1.005-1.030)
[2024-10-06 14:01] LABS: Add Urine Microscopic? YES; UA Manual Slide Review YES
[2024-10-06 14:14] VITALS: BP 123/67
[2024-10-06] MEDS: ondansetron 2 mg/ML SDV 2 mL 4 MG IVP (15:41)
[2024-10-06 18:05] VITALS: O2SAT 99
== END 2024-10-06 18:13 | disposition short-term general hospital (02) ==
PROVIDERS: Emergency Provider Emergency Medicine; PCP Family Medicine
DX: K92.2 Gastrointestinal hemorrhage, unspecified (principal); Z87.891 Personal history of nicotine dependence; Z86.73 Personal history of transient ischemic attack (TIA), and cerebral infarction without residual deficits
CPT/HCPCS: 74177; 80053; 81001; 83605; 83690; 84484; 85025; 85610; 85730; 86850; 86900; 93005; 96361; 96374; 96375; 99285; J2405; J2470; J7030

== ENCOUNTER 2024-10-14 10:27 | Emergency (ER) | payer MEDICARE, MEDICAID, SELFPAY ==
--- OUTSIDE RECORDS SUMMARY | 2024-10-06 19:54 | XMS_ITS | Encounter Summary ---
Author Organization [facility] Address [address] [place] [address] Care Team Providers Care Athletic Instructor Name Role Phone Aguila Castro MD Primary Care Provider + Reason for Visit * Auth/Cert (Routine) Specialty Diagnoses / Procedures Referred By Maryjane tim Referred To Contact General Surgery Diagnoses GI bleed Mohit Gomez MD [address] [place] [phone] Phone: tel: fax: [address] [facility] [address] [place] [phone] Phone: tel: fax: Referral ID Status Reason Start Date Expiration Date Visits Re quested Visits Authorized [id number] 1 1 Encounter Details Date Type Department Care Team (Latest Contact Info) Description 10/06/2024 7:54 PM CDT - 10/08/2024 3:59 PM CDT Hospital Encounter [facility] 3B Surgical [address] [place] [address] Mohit Gomez MD [address] [place] [address] Alessandra Jolley DO [address] [place] [address] Ovidio Palacios MD [address] [place] [address] Gastrointestinal hemorrhage Discharge Disposition: Home or Self Care Social History Tobacco Use Types Packs/Day Years Used Date Smoking Tobacco: Every Day Cigarettes Smokeless Tobacco: Never Alcohol Use Standard Drinks/Week Comments Not Currently 0 (1 standard drink = 0.6 oz pur e alcohol) rare Feeling Safe Answer Date Recorded Are you in a relationship wi th someone who hurts you emotionally and/or physically? No 10/03/2024 Comments No Sex and Gender Information Value Date Recorded Sex Assigned at Not on file Legal Sex Female 5:31 AM [place] Gender Identity Not on file Sexual Orientation Not on file documented as of this encounter Last Filed Vital Signs Vital Sign Reading Time Taken Comments Blood Pressure 138/77 10/08/2024 11:50 AM CDT Pulse 62 10/08/2024 11:50 AM CDT Temperature 36.5 C (97.7 F) 10/08/2024 11:50 AM CDT Respiratory Rate 18 10/08/2024 11:50 AM CDT Oxygen Saturation 98% 10/08/2024 11:50 AM CDT Inhaled Oxygen Concentration - - Weight 69.5 kg (153 lb 3.5 oz) 10/07/2024 11:48 PM CDT Height 175.3 cm (5' 9 ) 10/06/2024 8:03 PM CDT Body Mass Index 22.63 10/06/2024 8:03 PM CDT documented in this encounter Discharge Summaries * Ovidio Palacios MD - 10/08/2024 1:36 PM CDT [facility] Hospitalist- Discharge Summary Arlene Quach 59 y.o. female 1965 CSN: [id number] Date of Admission: 10/06/2024 Date of Discharge: 10/08/2024 Discharging Physician: Ovidio Palacios MD PCP: Aguila Castro MD LOS: 2 days Discharge disposition: home. Discharge Condition: improving Primary Discharge Diagnosis: Gastrointestinal hemorrhage Other Active medical issues also addressed during this admission: Active Hospital Problems Diagnosis Gastrointestinal hemorrhage Acute blood loss anemia Intractable nausea and vomiting Duodenitis Acute diarrhea Esophageal varices determined by endoscopy ([facility]/HCC) Portal hypertensive gastropathy (CMS/HCC) Angiodysplasia of stomach Liver cirrhosis (CMS/HCC) Cigarette nicotine dependence without complication Laboratory test Acute gastrointestinal hemorrhage HHT (hereditary hemorrhagic telangiectasia) Resolved Hospital Problems No resolved problems to display. HOSPITAL COURSE: Please see H and P for full details on admission, symptoms and initial care. Arlene Quach is a 59-year-old female with hereditary hemorrhagic telangiectasias and cirrhosisof the liver who was admitted for evaluation of gastrointestinal hemorrhage, presenting with black and red blood per rectum, intractable nausea and vomiting, and abnormal CT findings. Initial workup i ncluded laboratory studies showing a drop in hemoglobin from 11.8 in the ER to 10.7 on arrival, andCT imaging revealed a nodular liver, splenomegaly, a large portal venous system, and inflammatory changes of the duodenum suggestive of duodenitis. Recent EGD and colonoscopy performed prior to admission demonstrated grade II esophageal varices, moderate portal hypertensive gastropathy, multiple angiodysplastic lesions with contact bleeding in the duodenal bulb (treated with coagulation), and a small nonbleeding colonic polyp that was removed. During hospitalization, she was managed for acute gastrointestinal hemorrhage and acute blood loss anemia with serial hemoglobin monitoring, IV fluids, and IV pantoprazole. Gastroenterology was consulted and recommended repeat EGD, which was performed on 10/08/2024; this revealed grade II esophagealvarices, portal hypertensive gastropathy, and non-bleeding duodenal ulcers with clean bases, likelysecondary to prior cautery, with no active bleeding identified and no immediate complications. The GI team recommended resuming her previous diet, continuing oral PPI therapy for two months, and completing a 14-day course of oral vancomycin for Clostridium difficile enterocolitis, which was newly di agnosed during admission. Additional issues addressed during admission included intractable nausea and vomiting managed with parenteral antiemetics, duodenitis, acute diarrhea with pending GI pathogen panel, and hereditary hemorrhagic telangiectasias with ongoing GI bleeding risk. She was also monitored for complications ofcirrhosis, portal hypertensive gastropathy, and esophageal varices, with liver enzymes remaining stable. Aspirin was held during the admission. DVT prophylaxis was provided with SCDs. Her nicotine dependence and marijuana use were noted, and smoking cessation education was provided. No acute complications from her chronic comorbidities were encountered. She tolerated all procedures well and was anticipated to discharge home with family support. MEDICATION CHANGES: See discharge medications PERTINENT LAB DATA ON DISCHARGE: None Consultants: IP CONSULT TO GI IP CONSULT TO IV TEAM IP CONSULT TO IV TEAM Procedures performed: 10/08 1002 UPPER ENDOSCOPY REPORT 10/08 0655 Note By: Edie Lou RN 10/07 0115 Note By: Thad Bejarano CNA Procedure(s) (LRB): ESOPHAGOGASTRODUODENOSCOPY (N/A) FOLLOW UP: Patient was instructed to follow up with Aguila Castro MD , in in 5 day(s). FOLLOW UP CONSULTANTS: With Gi a scheduled DISCHARGE MEDICATIONS: Medication List START taking these medications vancomycin 125 mg Capsule Commonly known as: VANCOCIN Take 1 Capsule (125 mg) by mouth every 6 hours for 12 days. Signed by: Dr. Parker Palacios Quantity: 48 Capsule Refills: 0 CONTINUE taking these medications aspirin 81 mg Tablet, Delayed Release (E.C.) Commonly known as: ECOTRIN EC Take 81 mg by mouth daily. Refills: 0 carvediloL 6.25 mg tablet Commonly known as: Coreg Take 1 Tablet (6.25 mg) by mouth daily. Signed by: Dr. Parker Dickerson Quantity: 30 Tablet Refills: 3 cetirizine 10 mg tablet Commonly known as: ZyrTEC Take 10 mg by mouth daily. Refills: 0 HYDROcodone-acetaminophen 5-325 mg tablet Commonly known as: NORCO Take by mouth. PRN Refills: 0 IRON PS [id number] ACID ORAL Take by mouth. Refills: 0 levothyroxine 50 mcg tablet Commonly known as: SYNTHROID Take 50 mcg by mouth daily. Refills: 0 montelukast 10 mg tablet Commonly known as: SINGULAIR Refills: 0 ondansetron 4 mg Tablet, Rapid Dissolve Commonly known as: ZOFRAN ODT Take 4 mg by mouth every 6 hours as needed for Nausea. Refills: 0 pantoprazole 40 mg Tablet, Delayed Release (E.C.) Commonly known as: PROTONIX Take 1 Tablet (40 mg) by mouth 2 times daily. Signed by: Dr. Parker Palacios Quantity: 60 Tablet Refills: 0 sodium chloride 0.9 % Parenteral Solution with iron sucrose 100 mg iron/5 mL Solution Inject by intravenous injection one time only. Refills: 0 tiZANidine 4 mg Tablet Commonly known as: ZANAFLEX Refills: 0 traZODone 50 mg tablet Commonly known as: DESYREL Take 50 mg by mouth daily at bedtime. Refills: 0 vitamin E 400 unit capsule Take 400 Units by mouth daily. Refills: 0 ASK your doctor about these medications multivitamin tablet Commonly known as: DAILY-MARIO Take 1 Tablet by mouth daily. Refills: 0 Where to Get Your Medications These medications were sent to [facility] [address] [place] [address] [address], [facility] [id number] pantoprazole 40 mg Tablet, Delayed Release (E.C.) vancomycin 125 mg Capsule DIET: Regular Diet. ACTIVITY LEVEL: activity as tolerated. Wound Care: None needed DISCHARGE EXAM: BP 138/77 (BP Location: Left arm, Patient Position (BP): Sitting) Pulse 62 Temp 97.7 ??F (36.5 ??C) (Temporal) Resp 18 Ht 5' 9 (1.753 m) Wt 69.5 kg (153 lb 3.5 oz) SpO2 98% BMI 22.63 kg/m?? Last documented weight: Weight: 69.5 kg (153 lb 3.5 oz) (10/07/24 1194) General : Alert oriented to time place and person. Not in distress Skin: warm and dry, no rash Head and Neck : pupil equally reactive to light, oral mucosa - moist, neck supple, noJVD Chest: symmetrical, unlabored,bilateral Clear to auscultation, No wheeze, rales or ronchii Cardiovascular : RRR, S1, S2 normal, No murmur, rubs or gallop Abdomen:soft , non tender, no rigidity, no rebound tenderness, no organomegaly. Extremities : no pedal edema, cyanosis or clubbing. CAMERA STORAGE CLERK: CN 2-12 grossly intact, motor 5/5 in all limbs. Psych: Mode normal , behavior appropriate CODE STATUS during this hospitalization: Full Code Does this patient require home health face to face documentation? No. Total time spent on discharge services today including examining and educating the patient and available family members, writing prescriptions and reviewing the discharge medication list, documentingthis discharge summary and coordinating outpatient care and follow up required more than 30 minutes. It has been a privilege to participate in this patient's care. Ovidio Palacios MD 10/08/2024 1:36 PM documented in this encounter Discharge Instructions * Discharge Instructions* Latasha Parson RN - 10/08/2024 2:20 PM CDT [facility] Discharge Instructions Discharge & Transfer patient to: Home Symptoms/Diagnosis: Gastrointestinal hemorrhage Procedures Performed, if any: 10/08 1002 UPPER ENDOSCOPY REPORT 10/08 654 Note By: Edie Lou RN 10/07 114 Note By: Thad Bejarano CNA Procedure(s) (LRB): ESOPHAGOGASTRODUODENOSCOPY (N/A) Follow up PCP Your physician, Aguila Castro MD, has been notified of this hospitalization. Follow-up: You must follow up with Aguila Castro MD in 3-5 days Follow up consultants Activity level: up as tolerated DIET: DIET GENERAL Effective Now Wound Care: Not Applicable Other Comments: Follow up in the Emergency Room For any recurrence or worsening of admission concerns, chest pain, palpitations, shortness of breath, coughing blood, nausea, vomiting, diarrhea, pain, fever, chills, bleeding, bloody or tarry stools, change to urine or bowel output, Contact hospitalist office [phone] for questions if patients are discharged by [facility]. * Attachments The following attachments cannot be sent through Care Everywhere. * Diarrhea (Beninese) * EGD (Upper Endoscopy): Post op (Beninese) * Vancomycin (Beninese) documented in this encounter Medications at Time of Discharge carvediloL (Coreg) 6.25 mg tablet Take 1 Tablet (6.25 mg) by mouth daily. 30 Tablet 3 10/03/2024 HYDROcodone-acet aminophen (NORCO) 5-325 mg tablet Take by mouth. [...] mg Tablet, Delayed Release (E.C.) Take 1 Tablet (40 mg) by mouth 2 times daily. 60 Tablet 10/08/2024 vancomycin (VANCOCIN) 125 mg Capsule Take 1 Capsule (125 mg) by mouth every 6 hours for 12 days. 48 Capsule 10/08/2024 sodium chloride 0.9 % Parenteral Solution with iron sucrose 100 mg iron/5 mL Solution Inject by intravenous injection one time only. ondansetron (ZOFRAN ODT) 4 mg Tablet, Rapid Dissolve Take 4 mg by mouth every 6 hours as needed for Nausea. 02/01/2023 IRON PS [id number] ACID ORAL Take by mouth. multivitamin (DAILY-MARIO) tablet Take 1 Tablet by mouth daily. vitamin E 400 unit capsule Take 400 Units by mouth daily. documented as of this encounter Progress Notes * Ovidio Palacios MD - 10/07/2024 10:00 AM CDT Images from the original note were not included. [facility] Hospitalist/Internal Medicine Progress note Patient name: Arlene Qucah Date of : 1965 Room/Bed: [address] [place] [address] LOS: LOS: 1 day HOSPITAL COURSE SUMMARY: 59 y.o. female with hereditary hemorrhagic telangiectasias and cirrhosis of the liver is admitted directly from the ER in [place] for passing black and red blood per rectum, intractable nausea and vomiting, abnormal CT abdomen and pelvis. Patient was directly admitted to our medical telemetry floor. She states that since she had the EGDand colonoscopy October 03 here (results listed below) she has been passing black watery stools withred blood per rectum. She has also had intractable nausea and vomiting but she only dry heaves and has not been vomiting anything up. She has felt feverish and chilled but does not know how high her temperature has been at home. She also reports diffuse abdominal pain particularly of the epigastrium. 10/07- vitals stable. Gi consult reviewed. Planned for endoscopic eval tomorrow. CONSULTANTS: IP CONSULT TO GI IP CONSULT TO IV TEAM SUBJECTIVE: No new issues ROS: All systems were reviewed and pertinent positive and negative mentioned above. OBJECTIVE: Temp (24hrs), Av.4 ??F (36.3 ??C), Min:96.8 ??F (36 ??C), Max:98.1 ??F (36.7 ??C) BP 125/58 (BP Location: Left arm, Patient Position (BP): Supine) Pulse 62 Temp 98.1 ??F (36.7 ??C) (Temporal) Resp 18 Ht 5' 9 (1.753 m) Wt 64.6 kg (142 lb 6.7 oz) SpO2 95% BMI 21.03 kg/m?? Intake/Output Summary (Last 24 hours) at 10/07/2024 1522 Last data filed at 10/07/2024 1200 Gross per 24 hour Intake -- Output 350 ml Net -350 ml Last documented weight: Weight: 64.6 kg (142 lb 6.7 oz) (10/06/242002) EXAM: EXAM:10/07/2024, General : Alert oriented to time place and person. Not in distress Skin: warm and dry, no rash Head and Neck : pupil equally reactive to light, oral mucosa - moist, neck supple, noJVD Chest: symmetrical, unlabored,bilateral Clear to auscultation, No wheeze, rales or ronchii Cardiovascular : RRR, S1, S2 normal, No murmur, rubs or gallop Abdomen:soft , non tender, no rigidity, no rebound tenderness, no organomegaly. Extremities : no pedal edema, cyanosis or clubbing. CAMERA STORAGE CLERK: CN 2-12 grossly intact, motor 5/5 in all limbs. Psych: Mode normal , behavior appropriate LABORATORY: Recent Labs 10/06/24 2204 10/07/24 0416 10/07/24 0930 WBC 4.3* -- -- HGB 10.7* 10.2* 11.1* HCT 33.4* 31.4* 34.3* PLT 156 -- -- Recent Labs 10/06/242203 NA 140 K 4.1 CL 108* CO2 23 CA 8.8 BUN 8 CREAT 0.76 GLUCOSE 88 Recent Labs 10/06/242203 TOTALPROTEIN 6.1* ALBUMIN 3.8 BILITOTAL 0.3 ALKPHOS 75 AST 21 ALT 19 Recent Labs 10/06/242204 INR 1.2 PT 16.0* No results for input(s): CPK , CKMB , TROPONIN in the last 72 hours. Diagnostic testing reviewed by me: Medications reviewed by me Facility-Administered Medications as of 10/07/2024 Medication Dose Frequency Provider Last Rate Last Admin [COMPLETED] pantoprazole (PROTONIX) 80 mg in sodium chloride 0.9% 20 mL injection 80 mg ONE time only Alessandra Jolley DO 80 mg at 10/07/24 0102 pantoprazole (PROTONIX) 40 mg in sodium chloride 0.9% 50 mL infusion (MBP) 8 mg/hr continuous Alessandra Jolley DO 10 mL/hr at 10/07/24 0929 8 mg/hr at 10/07/24 0929 tiZANidine (ZANAFLEX) tablet 4 mg 4 mg every 8 hours PRN Ovidio Palacios MD HYDROcodone-acetaminophen (NORCO) 5-325 mg per tablet 1 Tablet 1 Tablet every 8 hours PRN Ovidio Palacios MD cetirizine (ZyrTEC) tablet 10 mg 10 mg daily Ovidio Palacios MD 10 mg at 10/07/24 1052 naloxone (NARCAN) 0.4 mg/mL injection 0.1-0.4 mg 0.1-0.4 mg see admin instructions Alessandra Jolley DO sodium chloride 0.9 % infusion continuous Alessandra Jolley DO 75 mL/hr at 10/06/24 2238 New Bag at 10/06/24 223 acetaminophen (TYLENOL) tablet 650 mg 650 mg every 6 hours PRN Alessandra Jolley DO HYDROmorphone (PF) (DILAUDID) injection 0.3 mg 0.3 mg every 4 hours PRN Alessandra Jolley DO 0.3 mg at 10/07/24 1051 prochlorperazine (COMPAZINE) injection 5 mg 5 mg every 6 hours PRN Alessandra Jolley DO 5 mg at 10/07/24 1001 [Held by Provider] aspirin (ECOTRIN EC) tablet 81 mg 81 mg daily Alessandra Jolley DO levothyroxine (SYNTHROID) tablet 50 mcg 50 mcg daily Alessandra Jolley DO 50 mcg at 10/07/24 0939 traZODone (DESYREL) tablet 50 mg 50 mg daily BEDTIME Alessandra Jolley DO 50 mg at 10/07/24 0101 ASSESSMENT AND PLAN: Principal Problem: Gastrointestinal hemorrhage Active Problems: HHT (hereditary hemorrhagic telangiectasia) Acute blood loss anemia Intractable nausea and vomiting Duodenitis Acute diarrhea Esophageal varices determined by endoscopy (CMS/HCC) Portal hypertensive gastropathy (CMS/HCC) Angiodysplasia of stomach Liver cirrhosis (CMS/HCC) Cigarette nicotine dependence without complication Plan Acute gastrointestinal hemorrhage Acute blood loss anemia GI following GI consult reviewed Monitor Hb Plan for endoscopic eval tomorrow Continue with IV protonix Intractable nausea and vomiting IV fluids. Parenteral antiemetics. Duodenitis Acute diarrhea Pending GI pathogen panel GI following Esophageal varices Moderate portal hypertensive gastropathy Gastric angiodysplastic lesions GI followng Per GI less likely variceal bleed Cirrhosis of the liver Liver enzymes are normal. GI consult as above. Hereditary hemorrhagic telangiectasias Only side effect of bleeding is GI as above. Following H&H. DVT prevention: SCDs Gastritis prevention: PPI Anticipated Disposition - home Code status: Full Code On the day of the visit, I spent 35 minutes providing care to this patient including Preparing to see the patient, Obtaining and/or reviewing separately obtained history, Performing a medically appropriate examination and/or evaluation, Counseling and educating the patient/family/caregiver, Ordering medications, tests or procedures, Documenting clinical information in the medical record, and Referring and communication with other health client care representative (not separately reported). Ovidio Palacios MD 10/07/2024, 3:22 PM Portions of this documentation may have been created by an artificial guest services assistant software. Effort has been done to assure accuracy of guest services assistant. Any obvious errors or omissions should be clarified with the author of the document. documented in this encounter H&P Notes * Carmine Dubois MD - 10/08/2024 9:44 AM CDT Arlene Quach 1965 CSN:[id number] 10/08/2024 Referring physician: Aguila Castro MD Endoscopy History and Physical This is a 59 y.o. female patient scheduled for EGD for the following indication: Melena/hematochezia, hx of duodenal AVMs. Past Medical History: Diagnosis Date Clostridium difficile enterocolitis 10/07/2024 CVD (cerebrovascular disease) x2 eyesight only residual Hemorrhagic diathesis Hypothyroidism Temporomandibular joint disorder Thromboembolism (CMS/HCC) Past Surgical History: Procedure Laterality Date HX ARTHROSCOPIC REPAIR ACL Bilateral HX HYSTERECTOMY HX INTRACRANIAL ANEURYSM REPAIR HX IVC FILTER RETRIEVAL HX LAPAROTOMY OOPHERECTOMY Right HX TUBAL LIGATION [place] COLONOSCOPY FLX DX W/COLLJ SPEC WHEN PFRMD N/A 10/03/2024 COLONOSCOPY performed by Carmine Dickerson DO at [facility] ENDOSCOPY [place] ESOPHAGOGASTRODUODENOSCOPY TRANSORAL DIAGNOSTIC N/A 05/08/2024 ESOPHAGOGASTRODUODENOSCOPY performed by Gera Resendez DO at [facility] ENDOSCOPY [place] ESOPHAGOGASTRODUODENOSCOPY TRANSORAL DIAGNOSTIC N/A 10/03/2024 ESOPHAGOGASTRODUODENOSCOPY performed by Carmine Dickerson DO at [facility] ENDOSCOPY [place] REMOVAL IMPLANT DEEP Right 05/27/2021 HARDWARE REMOVAL performed by Rolando Riley MD at [facility] MAIN OR Allergies Allergen Reactions Sulfa (Sulfonamide Antibiotics) Rash and Shortness of Breath/Wheezing Reaction: Rash, Short of breath, No current facility-administered medications on file prior to encounter. Current Outpatient Medications on File Prior to Encounter Medication Sig Dispense Refill sodium chloride 0.9 % Parenteral Solution with iron sucrose 100 mg iron/5 mL Solution Inject by intravenous injection one time only. cetirizine (ZyrTEC) 10 mg tablet Take 10 mg by mouth daily. levothyroxine 50 mcg tablet Take 50 mcg by mouth daily. traZODone (DESYREL) 50 mg tablet Take 50 mg by mouth daily at bedtime. aspirin (ECOTRIN EC) 81 mg Tablet, Delayed Release (E.C.) Take 81 mg by mouth daily. carvediloL (Coreg) 6.25 mg tablet Take 1 Tablet (6.25 mg) by mouth daily. 30 Tablet 3 HYDROcodone-acetaminophen (NORCO) 5-325 mg tablet Take by mouth. PRN tiZANidine (ZANAFLEX) 4 mg Tablet pantoprazole (PROTONIX) 40 mg Tablet, Delayed Release (E.C.) Take 1 tablet by mouth twice daily (Patient not taking: Reported on 09/18/2024) 60 Tablet 2 ondansetron (ZOFRAN ODT) 4 mg Tablet, Rapid Dissolve Take 4 mg by mouth every 6 hours as needed forNausea. IRON PS [id number] ACID ORAL Take by mouth. montelukast (SINGULAIR) 10 mg tablet multivitamin (DAILY-MARIO) tablet Take 1 Tablet by mouth daily. (Patient not taking: Reported on 09/18/2024) vitamin E 400 unit capsule Take 400 Units by mouth daily. Family History Problem Relation Name Age of Onset Colon Cancer Neg Hx Social History Socioeconomic History Marital status: Spouse [...] : No Housing Stability: Not on file Physical Exam: Airway Assessment Short/fat neck: No Short chin No Protruding upper teeth No Neck full ROM Yes Mouth opens>2 fingers Yes ASA Classification: ASA 3 - Patient with moderate systemic disease with functional limitations Lungs: clear to auscultation bilaterally, normal respiratory effort Heart: regular rate and rhythm, S1, S2 normal, no murmur, click, rub or gallop Abdomen: Soft, non-tender. Bowel sounds normal. No masses, no organomegaly. Neuro: Alert and Oriented Plan: Will proceed with the above mentioned procedure as scheduled. Informed consent was completed prior to the procedure. The procedure was discussed in detail with the patient. Specific risks were discussed including perforation, bleeding, infection, damage to internal organs, discomfort, and complications from sedation. The patient was given the opportunity to ask questions. Written consent was obtained. Carmine Dubois MD * Alessandra Jolley, - 10/06/2024 8:59 PM CDT [place], [place] HOSPITALIST HISTORY AND PHYSICAL Patient name: Arlene Quach CSN: [id number] Date of admission: 10/06/2024 I have personally seen, questioned and examined the patient at the bedside. I have personally reviewed the patient's chart and ER records from [facility]. Chief complaint: 59 y.o. female with hereditary hemorrhagic telangiectasias and cirrhosis of the liver is admitted directly from the ER in [place] for passing black and red blood per rectum, intractable nausea and vomiting, abnormal CT abdomen and pelvis. History of Present Illness: Patient was directly admitted to our medical telemetry floor. She states that since she had the EGDand colonoscopy October 03 here (results listed below) she has been passing black watery stools withred blood per rectum. She has also had intractable nausea and vomiting but she only dry heaves and has not been vomiting anything up. She has felt feverish and chilled but does not know how high her temperature has been at home. She also reports diffuse abdominal pain particularly of the epigastrium. Per workup in the ER in [place], hemoglobin is 11.8. CMP was stable. Lactic acid and lipase arenormal. Other laboratory results listed below. CT abdomen and pelvis with contrast shows inflammatory changes of the duodenum possibly duodenitis . Nodular liver, splenomegaly and large portal venous system noted. They do not have GI specialist available at their facility. Patient was directly admitted to medical telemetry floor for further evaluation and treatment and GI consultation. On October 03 EGD and colonoscopy were performed here. EGD shows grade 2 varices, moderate portal hypertensive gastropathy of the entire stomach and multiple angiodysplastic lesions with bleeding on contact found in the duodenal bulb treated with coagulation. Colonoscopy performed the same day showed a 4 mm polyp in the ascending colon which was removed and a few nonbleeding colonic angiodysplastic lesions were noted. Allergies: Allergies Allergen Reactions Sulfa (Sulfonamide Antibiotics) Rash and Shortness of Breath/Wheezing Reaction: Rash, Short of breath, Medications prior to admission: Prior to Admission Medications Prescriptions HYDROcodone-acetaminophen (NORCO) 5-325 mg tablet Sig: Take by mouth. PRN IRON PS [id number] ACID ORAL Sig: Take by mouth. aspirin (ECOTRIN EC) 81 mg Tablet, Delayed Release (E.C.) Sig: Take 81 mg by mouth daily. carvediloL (Coreg) 6.25 mg tablet Sig: Take 1 Tablet (6.25 mg) by mouth daily. cetirizine (ZyrTEC) 10 mg tablet Sig: Take 10 mg by mouth daily. levothyroxine 50 mcg tablet Sig: Take 50 mcg by mouth daily. montelukast (SINGULAIR) 10 mg tablet multivitamin (DAILY-MARIO) tablet Sig: Take 1 Tablet by mouth daily. Patient not taking: Reported on 09/18/2024 ondansetron (ZOFRAN ODT) 4 mg Tablet, Rapid Dissolve Sig: Take 4 mg by mouth every 6 hours as needed for Nausea. pantoprazole (PROTONIX) 40 mg Tablet, Delayed Release (E.C.) Sig: Take 1 tablet by mouth twice daily Patient not taking: Reported on 09/18/2024 tiZANidine (ZANAFLEX) 4 mg Tablet traZODone (DESYREL) 50 mg tablet Sig: Take 50 mg by mouth daily at bedtime. vitamin E 400 unit capsule Sig: Take 400 Units by mouth daily. Facility-Administered Medications: None Past Medical History: Diagnosis Date CVD (cerebrovascular disease) x2 eyesight only residual Hemorrhagic diathesis Hypothyroidism Temporomandibular joint disorder Thromboembolism (CMS/HCC) Past Surgical History: Procedure Laterality Date HX ARTHROSCOPIC REPAIR ACL Bilateral HX HYSTERECTOMY HX INTRACRANIAL ANEURYSM REPAIR HX IVC FILTER RETRIEVAL HX LAPAROTOMY OOPHERECTOMY Right HX TUBAL LIGATION AZ COLONOSCOPY FLX DX W/COLLJ SPEC WHEN PFRMD N/A 10/03/2024 COLONOSCOPY performed by Carmine Dickerson DO at [facility] [place] ESOPHAGOGASTRODUODENOSCOPY TRANSORAL DIAGNOSTIC N/A 05/08/2024 ESOPHAGOGASTRODUODENOSCOPY performed by Gera Resendez DO at [facility] AZ ESOPHAGOGASTRODUODENOSCOPY TRANSORAL DIAGNOSTIC N/A 10/03/2024 ESOPHAGOGASTRODUODENOSCOPY performed by Carmine Dickerson DO at [facility] [place] REMOVAL IMPLANT DEEP Right 05/27/2021 HARDWARE REMOVAL performed by Rolando Riley MD at [facility] Family History Problem Relation Name Age of Onset Colon Cancer Neg Hx Social History Tobacco Use Smoking status: Every Day Current packs/day: 1.00 Types: Cigarettes Smokeless tobacco: Never Vaping Use Vaping status: Never Used Substance and Sexual Activity Alcohol use: Not Currently Comment: rare Drug use: Yes Types: Marijuana Sexual activity: Not on file Review of Systems: Reviewed. Pertinent review of systems information is listed above under History of Present Illness. Physical Examination: Vital Signs: Patient Vitals for the past 8 hrs: BP Temp Temp src Pulse Resp SpO2 Height Weight 10/06/242002 137/75 96.9 ??F (36.1 ??C) Temporal 66 20 94 % 5' 9 (1.753 m) 64.6 kg (142 lb 6.7 oz) Physical Exam: General appearance: General examination reveals a slender 59 y.o. female who is alert. Breathing isnon-labored. Head: Normocephalic, without significant abnormality. Neck: Supple without JVD or meningeal signs. Heart:: Regular rhythm with soft 1/6 systolic murmur heard at the upper sternal borders bilaterally. No S3 or S4. Lungs: Clear to auscultation bilaterally, normal respiratory effort. Abdomen: Flat, soft. Epigastric tenderness palpation. No rebound, rigidity or guarding. Extremities: No erythema or warmth or tenderness to palpation of calves or thighs. No edema. Integument: No rashes. Chronic skin changes noted. Neurologic: Alert and oriented X 3. Cranial nerves II through XII appear intact. No meningeal signs. Equal strength of the upper and lower extremities bilaterally. No focal deficits. Psychiatric: Normal affect and mood. I have personally reviewed the following admitting data listed below and other admitting data from the transferring ER that may not be listed below: I have personally reviewed the following laboratory results: CBC: WBC 5.03, hemoglobin 11.8, hematocrit 36.6, platelet count 177 CMP: Sodium 141, potassium 3.9, chloride 105, CO2 23, anion gap 16.9, BUN 9, creatinine 0.7, glucose 116, remainder of CMP is normal. Lactic acid: 1.2 Lipase: 18 UA 2+ ketones, 2+ blood, nitrite negative, leukocyte Estrace trace, RBCs 5-10, WBC 0-4, urine bacteria none Lab interpretation: I have personally reviewed the lab results and have interpreted them as described in History of Present Illness and in the assessment / plan below. I have personally reviewed the following imaging reports from the transferring ER: CT abdomen pelvis with contrast: Impression: 1. Nodular liver possibly hepatocellular disease. 2. Splenomegaly 3. Very large portal venous system. 4. Stable left adrenal mass. 5. Bosniak class I cysts. No further workup recommended. 6. Inflammatory changes of the duodenum possibly duodenitis. Ascites. ASSESSMENT AND PLAN: Acute gastrointestinal hemorrhage Acute blood loss anemia Clear liquid diet if tolerated. N.p.o. after midnight. IV fluids. Check CBC, CMP, magnesium, phosphorus, PT/INR, PTT Follow H/H and transfuse prn. Hemoglobin was 11.8 in the ER. CBC after arrival here hemoglobin is down to 10.7. IV Protonix. Gastroenterology consult. Intractable nausea and vomiting IV fluids. Parenteral antiemetics. Duodenitis Acute diarrhea Check GI pathogen panel. IV fluids. Parenteral pain medications and antiemetics. GI consult as above. Esophageal varices Moderate portal hypertensive gastropathy Gastric angiodysplastic lesions These findings are seen on EGD October 03. Patient has dry heaves and does not describe any hematemesis. Cirrhosis of the liver Liver enzymes are normal. Will follow. GI consult as above. Hereditary hemorrhagic telangiectasias Only side effect of bleeding is GI as above. Following H&H. Nicotine dependence She smokes a half a pack of cigarettes a day and is not interested in quitting. Discussed the importance of stopping cigarette smoking. Smoking cessation education. Nicotine patch prn. Marijuana use She smokes marijuana once daily for anxiety and insomnia. DVT prophylaxis SCDs CODE STATUS Full code I reviewed the assessment and plan in detail with the patient. She had multiple questions about herEGD and colonoscopy which I answered as best I could. GI to discuss this with her as well. Patient does not remember or know any of the results found on her EGD and colonoscopy. Questions were answered. I have personally reviewed the following EKG done after admission.: Sinus rhythm. Rate 60. QTc 422.Non-specific changes. Nothing acute. On the day of this visit I spent 88 minutes providing care to this patient including Preparing to see the patient, Obtaining and/or reviewing separately obtained history, Ordering medications, tests or procedures, and Documenting clinical information in the medical record, reviewing the assessment and plan with her in detail as well as reviewing the EGD and colonoscopy results with her. Signed: Alessandra Jolley DO 10/06/2024, 8:59 PM This document was created by voice recognition software. A conscious effort has been made to improve accuracy of the guest services assistant. Any obvious errors or omissions should be clarified with the authorof this document. documented in this encounter Procedure Notes * Carmine Dubois MD - 10/08/2024 10:02 AM CDTAssociated Order(s): UPPER ENDOSCOPY REPORT [facility] GI Patient Name: Arlene Quach Procedure Date: 10/08/2024 Date of : 1965 Admit Type: Inpatient Age: 59 Attending MD: Carmine Dubois MD, Procedure: Upper GI endoscopy Indications: Hematochezia, Melena Providers: Carmine Dubios MD Referring MD: Medicines: Monitored Anesthesia Care Complications: No immediate complications. Procedure: Pre-Anesthesia Assessment: - Prior to the procedure, a History and Physical was performed, and patient medications and allergies were reviewed. The patient's tolerance of previous anesthesia was also reviewed. The risks and benefits of the procedure and the sedation options and risks were discussed with the patient. All questions were answered, and informed consent was obtained. Prior Anticoagulants: The patient has taken no anticoagulant or antiplatelet agents. ASA Grade Assessment: III - A patient with severe systemic disease. After reviewing the risks and benefits, the patient was deemed in satisfactory condition to undergo the procedure. After obtaining informed consent, the endoscope was passed under direct vision. Throughout the procedure, the patient's blood pressure, pulse, and oxygen saturations were monitored continuously. The Endoscope was introduced through the mouth, and advanced to the second part of duodenum. The upper GI endoscopy was accomplished without difficulty. The patient tolerated the procedure well. Estimated Blood Loss: Estimated blood loss: none. Findings: Grade II varices were found in the distal esophagus. They were medium in size. No high risk stigmata noted. Moderate portal hypertensive gastropathy was found in the stomach. Few non-bleeding cratered duodenal ulcers with a clean ulcer base (Dell Class III) were found in the duodenal bulb and in the second portion of the duodenum. The largest lesion was 10 mm in largest dimension. Likely secondary to previous APC/cautery on prior endoscopy. Impression: - Grade II esophageal varices. - Portal hypertensive gastropathy. - Non-bleeding duodenal ulcers with a clean ulcer base (Dell Class III). Likely secondary to previous APC/cautery. - No specimens collected. Recommendation: - Resume previous diet. - Continue present medications. - BID PPI PO x 2 months - Continue treatment with C diff with PO vancomycin x 14 days. - GI will sign off. Please call with any further questions or concerns. Carmine Dubois MD 10/08/2024 10:02:27 AM Number of Addenda: 0 Note Initiated On: 10/08/2024 9:39 AM Scope Withdrawal Time Scope In: Scope Out: [address] [place], [place] * Edie Lou RN - 10/08/2024 6:55 AM CDT VASCULAR ACCESS TEAM Peripheral IV insertion PATIENT NAME: Arlene Quach DATE OF : 1965 CSN: [id number] DATE: 10/08/2024 Room: [address] [place] [address] Admit Date: 10/06/2024 Hospital day: LOS: 2 days Allergies: Allergies Allergen Reactions Sulfa (Sulfonamide Antibiotics) Rash and Shortness of Breath/Wheezing Reaction: Rash, Short of breath, PERIPHERAL IV INSERTION Ultrasound assessment was performed to assess adequacy of vascular anatomy Adequate vessel was located Insertion site cleansed for 30 seconds with Chlora-prep. Allowed to dry before initial needle stick. A 20 Gauge 2 Inch peripheral IV was successfully placed using ultrasound guidance in the right, upper Arm Secure port adhesive used Yes 1 attempts 20minutes required to complete procedure Positive blood return noted Neutral pressure cap applied Catheter Flushed with 5ml of Normal Saline Transparent dressing applied with date, time and initials of cowoker inserting. LDA documentation is contained in EMR flowsheet Patient tolerated well. Edie Lou RN * Thad Bejarano CNA - 10/07/2024 1:15 AM CDT VASCULAR ACCESS TEAM Peripheral IV insertion with lab collection PATIENT NAME: Arlene Quach DATE OF : 1965 CSN: [id number] DATE: 10/07/2024 Room: [address] [place] [address] Admit Date: 10/06/2024 Hospital day: LOS: 1 day [place]: Allergies Allergen Reactions Sulfa (Sulfonamide Antibiotics) Rash and Shortness of Breath/Wheezing Reaction: Rash, Short of breath, PERIPHERAL IV INSERTION and LAB COLLECTION Ultrasound assessment was performed to assess adequacy of vascular anatomy Adequate vessel was located Insertion site cleansed for 30 seconds with Chlora-prep. Site allowed to dry before ultrasound guided needle stick. A 20 Gauge 2 Inch peripheral IV was successfully placed using ultrasound guidance in the LEFT, LOWER Arm Secure port adhesive used Yes 1 attempts 20minutes required to complete procedure Labs collected No Blood Cultures collected No Positive blood return noted Neutral pressure cap applied Catheter Flushed with 5ml of Normal Saline Transparent dressing applied with date, time and initials of cowoker inserting. LDA documentation is contained in EMR flowsheet Patient tolerated well. Thad B Bejarano, OUTSIDE COLLECTOR documented in this encounter Consult Notes * Edie Lou RN - 10/08/2024 6:40 AM CDTAssociated Order(s): IP CONSULT TO IV TEAM VASCULAR ACCESS CONSULT PATIENT NAME: Arlene Quach DATE OF : 1965 CSN: [id number] DATE: 10/08/2024 Room: [address] [place] [address] Admit Date: 10/06/2024 Hospital day: LOS: 2 days INDICATION: Poor Access EXCLUSIONS/CONSIDERATIONS: none LAST RECORDED TEMP: Temp: 97.7 ??F (36.5 ??C) (10/07/24 2348)] Assessment Allergies Allergen Reactions Sulfa (Sulfonamide Antibiotics) Rash and Shortness of Breath/Wheezing Reaction: Rash, Short of breath, Lab Results Component Value Date/Time CREAT 0.76 10/06/2024 10:04 PM BUN 8 10/06/2024 10:04 PM NA 140 10/06/2024 10:04 PM K 4.1 10/06/2024 10:04 PM CL 108 (H) 10/06/2024 10:04 PM CO2 23 10/06/2024 10:04 PM GFR >60 10/06/2024 10:04 PM Lab Results Component Value Date/Time WBC 4.3 (L) 10/06/2024 10:04 PM HGB 10.0 (L) 10/07/2024 10:17 PM HCT 30.9 (L) 10/07/2024 10:17 PM PLT 156 10/06/2024 10:04 PM MCV 83.9 (L) 10/06/2024 10:04 PM Lab Results Component Value Date/Time INR 1.2 10/06/2024 10:05 PM PT 16.0 (H) 10/06/2024 10:05 PM Past Medical History: Diagnosis Date CVD (cerebrovascular disease) x2 eyesight only residual Hemorrhagic diathesis Hypothyroidism Temporomandibular joint disorder Thromboembolism (CMS/HCC) Past Surgical History: Procedure Laterality Date HX ARTHROSCOPIC REPAIR ACL Bilateral HX HYSTERECTOMY HX INTRACRANIAL ANEURYSM REPAIR HX IVC FILTER RETRIEVAL HX LAPAROTOMY OOPHERECTOMY Right HX TUBAL LIGATION AZ COLONOSCOPY FLX DX W/COLLJ SPEC WHEN PFRMD N/A 10/03/2024 COLONOSCOPY performed by Carmine Dickerson DO at [facility] [place] ESOPHAGOGASTRODUODENOSCOPY TRANSORAL DIAGNOSTIC N/A 05/08/2024 ESOPHAGOGASTRODUODENOSCOPY performed by Gera Resendez DO at [facility] [place] ESOPHAGOGASTRODUODENOSCOPY TRANSORAL DIAGNOSTIC N/A 10/03/2024 ESOPHAGOGASTRODUODENOSCOPY performed by Carmine Dickerson DO at [facility] [place] REMOVAL IMPLANT DEEP Right 05/27/2021 HARDWARE REMOVAL performed by Rolando Riley MD at [facility] Current Facility-Administered Medications: vancomycin (VANCOCIN) capsule 125 mg, 125 mg, Oral, every 6 hours, Naomi Blackburn MD, 125 mg at 10/08/24 0143 pantoprazole (PROTONIX) 40 mg in sodium chloride 0.9% 50 mL infusion (MBP), 8 mg/hr, IV, continuous, Alessandra Jolley DO, Last Rate: 10 mL/hr at 10/08/24 0400, 8 mg/hr at 10/08/24 0400 tiZANidine (ZANAFLEX) tablet 4 mg, 4 mg, Oral, every 8 hours PRN, Ovidio Palacios MD HYDROcodone-acetaminophen (NORCO) 5-325 mg per tablet 1 Tablet, 1 Tablet, Oral, every 8 hours PRN, Ovidio Palacios MD, 1 Tablet at 10/07/24 1806 cetirizine (ZyrTEC) tablet 10 mg, 10 mg, Oral, daily, Ovidio Palacios MD, 10 mg at 10/07/24 1052 naloxone (NARCAN) 0.4 mg/mL injection 0.1-0.4 mg, 0.1-0.4 mg, IV, see admin instructions, Alessandra Jolley DO [] sodium chloride 0.9 % infusion, , IV, continuous, Alessandra Jolley DO, Stopped at 10/07/242113 acetaminophen (TYLENOL) tablet 650 mg, 650 mg, Oral, every 6 hours PRN, Jolley, Alessandra J, DO HYDROmorphone (PF) (DILAUDID) injection 0.3 mg, 0.3 mg, IV, every 4 hours PRN, Alessandra Jolley DO, 0.3 mg at 10/08/24 0458 prochlorperazine (COMPAZINE) injection 5 mg, 5 mg, IV, every 6 hours PRN, Alessandra Jolley DO, 5 mg at 10/08/24 0457 [Held by Provider] aspirin (ECOTRIN EC) tablet 81 mg, 81 mg, Oral, daily, Alessandra Jolley DO levothyroxine (SYNTHROID) tablet 50 mcg, 50 mcg, Oral, daily, Alessandra Jolley DO, 50 mcg at 10/07/24 0939 traZODone (DESYREL) tablet 50 mg, 50 mg, Oral, daily BEDTIME, Alessandra Jolley DO, 50 mg at 10/07/24 2238 PLAN Assess for vascular access Edie Lou RN * Andrew Rascon MD - 10/07/2024 9:55 AM CDT GASTROENTEROLOGY CONSULTATION PATIENT NAME: Arlene Quach : 1965 CSN: [id number] CONSULTATION DATE: 10/07/2024 REQUESTING PROVIDER: Hector Fuller MD PRIMARY CARE PROVIDER: Aguila Castro MD IDENTIFYING DATA: Arlene Quach is a 59 y.o. female seen in gastroenterologic consultation for evaluation of GI bleeding. HISTORY OF PRESENT ILLNESS: Asked to see this 59-year-old woman for evaluation of black/bloody diarrheal stools. She underwent segura endoscopy on October 03 for evaluation of same symptoms, although this occasion she relates that there was a much greater volume diarrheal stool. There was no associated abdominal pain or vomiting. Despite the symptoms, her hemoglobin is down to only 4 tenths of a gram from 2 months ago (current hemoglobin 10.7 g). At pain endoscopy on October 03 patient was found to have grade 2 esophageal varices, numerous angiodysplasias with contact bleeding in the duodenum, and portal hypertensive gastropathy. Colonoscopy revealed hemorrhoids, 1 small polyp which was removed, and angiodysplasia in the proximal colon. Past Medical History: Diagnosis Date CVD (cerebrovascular disease) x2 eyesight only residual Hemorrhagic diathesis Hypothyroidism Temporomandibular joint disorder Thromboembolism (CMS/HCC) Past Surgical History: Procedure Laterality Date HX ARTHROSCOPIC REPAIR ACL Bilateral HX HYSTERECTOMY HX INTRACRANIAL ANEURYSM REPAIR HX IVC FILTER RETRIEVAL HX LAPAROTOMY OOPHERECTOMY Right HX TUBAL LIGATION AZ COLONOSCOPY FLX DX W/COLLJ SPEC WHEN PFRMD N/A 10/03/2024 COLONOSCOPY performed by Carmine Dickerson DO at [facility] [place] ESOPHAGOGASTRODUODENOSCOPY TRANSORAL DIAGNOSTIC N/A 05/08/2024 ESOPHAGOGASTRODUODENOSCOPY performed by Gera Resendez DO at [facility] [place] ESOPHAGOGASTRODUODENOSCOPY TRANSORAL DIAGNOSTIC N/A 10/03/2024 ESOPHAGOGASTRODUODENOSCOPY performed by Carmine Dickerson DO at [facility] [place] REMOVAL IMPLANT DEEP Right 05/27/2021 HARDWARE REMOVAL performed by Rolando Riley MD at [facility] ALLERGIES: Allergies Allergen Reactions Sulfa (Sulfonamide Antibiotics) Rash and Shortness of Breath/Wheezing Reaction: Rash, Short of breath, CURRENT MEDS: Current Facility-Administered Medications Medication Dose Route Frequency Provider Last Rate Last Admin [COMPLETED] pantoprazole (PROTONIX) 80 mg in sodium chloride 0.9% 20 mL injection 80 mg IV ONE timeonly Alessandra Jolley DO 80 mg at 10/07/24 0102 pantoprazole (PROTONIX) 40 mg in sodium chloride 0.9% 50 mL infusion (MBP) 8 mg/hr IV continuous Alessandra Jolley DO 10 mL/hr at 10/07/24 0929 8 mg/hr at 10/07/24 0929 naloxone (NARCAN) 0.4 mg/mL injection 0.1-0.4 mg 0.1-0.4 mg IV see admin instructions Alessandra Jolley DO sodium chloride 0.9 % infusion IV continuous Alessandra Jolley DO 75 mL/hr at 10/06/24 2238 New Bag at 10/06/24 2238 acetaminophen (TYLENOL) tablet 650 mg 650 mg Oral every 6 hours PRN Jolley, Alessandra J, DO HYDROmorphone (PF) (DILAUDID) injection 0.3 mg 0.3 mg IV every 4 hours PRN Alessandra Jolley DO 0.3 mg at 10/06/24 2238 prochlorperazine (COMPAZINE) injection 5 mg 5 mg IV every 6 hours PRN Alessandra Jolley DO [Held by Provider] aspirin (ECOTRIN EC) tablet 81 mg 81 mg Oral daily Alessandra Jolley DO levothyroxine (SYNTHROID) tablet 50 mcg 50 mcg Oral daily Alessandra Jolley DO 50 mcg at 10/07/24 0939 traZODone (DESYREL) tablet 50 mg 50 mg Oral daily BEDTIME Alessandra Jolley DO 50 mg at 10/07/24 0101 SOCIAL HISTORY: Patient lives in [facility]. FAMILY HISTORY: Noncontributory. REVIEW OF SYSTEMS: Otherwise noncontributory. PHYSICAL EXAM: VITALS: BP 134/65 (BP Location: Left arm, Patient Position (BP): Supine) Pulse 60 Temp 98.1 ??F(36.7 ??C) (Temporal) Resp 18 Ht 5' 9 (1.753 m) Wt 64.6 kg (142 lb 6.7 oz) SpO2 96% BMI 21.03 kg/m?? GEN: Arlene Quach is a 59 y.o. female in no acute distress. HEENT: Mucous membranes pink and moist. Sclera anicteric. LUNGS: Clear to auscultation posteriorly. HEART: Reg without murmur. BREASTS: Not examined. ABD: Soft with normoactive BS. No palpable abnormalities or masses. No organomegaly noted. No appreciable tenderness. RECTAL: Not done at this time. SKIN: Emma, warm, dry. NEURO: Grossly intact, alert, oriented. PSYCH: Affect pleasant. LABS: Reviewed. DIAGNOSTICS: Recent EGD and colonoscopy notes reviewed. IMPRESSION: Diarrheal stools with bleeding. GI pathogen panel has been requested. Patient relates that current symptoms are identical to those that led to segura endoscopy, although stool is of a greater volume on this occasion. In light of recent endoscopic findings, patient could be bleeding from duodenal angiodysplasias. Symptom complex is not consistent with variceal hemorrhage. Multiple other medical problems as above. PLAN: Will advance to a regular diet. Follow-up on GI pathogen panel. Tentatively, plan repeat EGD tomorrow. Andrew Rascon M.D. 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 Per chart review, pt plans to DC to home with son. Cm will continue to follow for DC needs. Expected Discharge Date Oct 09, 2024 Plan Discharge To: Home or Self Care (10/08/24 114) Plan Discharge To - Alternate: Home with family assist (10/08/241140) Family/Caregiver Assist Does the patient have family and/or a caregiver that is willing, able and available to assist if needed?: Yes (10/08/24 114) Name and Relation: justus Mcginnis (10/08/24 114) Referrals Status: Follow-up on Referrals Sent: No (10/07/241813) Preferred Pharmacy: [facility] [address] [place] [address] Patient / Family Communications: Discharge Plan Agreed Upon: Patient (10/07/241813) Resources Provided Transportation Plan: Has discharge transport been arranged?: No (10/07/241813) Follow Up Appointments Scheduled Mehnaz Reddy RN Outcome: Progressing * Care Plan - Edie Lou RN - 10/08/2024 6:56 AM CDT Arlene 's peripheral IV will remain free from infection. * Care Plan - Shantelle London RN - 10/08/2024 5:24 AM CDT Shift Summary C. difficile was detected on the GI pathogen PCR panel and vancomycin was administered. HYDROmorphone was given PRN for abdominal pain, with pain rating at rest remaining moderate. Safety checks and fall risk assessments were completed, with no reported falls or injuries. Discharge needs were reassessed, and independence with ambulation and activities was maintained. Overall, remained alert and responsive, with infection precautions and pain management interventions provided. 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 Infection Risk/Actual: Infection prevention, control, or resolution by discharge: C. difficile was detected on the GI pathogen PCR panel and vancomycin was administered; isolation precautions were maintained. Safety/Fall: Absence of fall, injury, harm during hospitalization: Fall risk was acknowledged and safety checks were completed regularly, with no reported falls or injuries. Identify discharge needs upon admission and through discharge: Remained independent with ambulationand activities, no assistive devices required, and reassessment of needs was performed. * Care Plan - Kristine Rosas RN - 10/07/2024 6:14 PM CDT Problem: Discharge Planning Goal: Identify discharge needs upon admission and through discharge Description: Outcome: Progressing Care Management Initial Assessment Initial Discharge Planning Assessment completed. Discussed Care Management's role and Discharge planning. Plan Discharge To: Home or Self Care Plan Discharge To - Alternate: Home or Self Care Does the patient have family and/or a caregiver that is willing, able and available to assist if needed? Yes - Name/Relation:Ras - her son Comments: Patient is an admit from [facility] for passing black and red blood per rectum, nausea and vomiting and abdominal pain. She has hereditary hemorrhagic telangiectasias and cirrhosis of the liver Patient Discharge Planning Goal: yo get better Patient will potentially discharge to a SNF/NH? No Care Management visited with: patient via phone. Prior to admission, patient resides at: Apartment. Prior to admission, living arrangements: lives alone. Prior to admission, patient's functional level:independent; uses N/A for mobility; needs assistancewith iADLs: N/A Community Ambulator: yes Prior to admission, the patient has the following DME? Yes cane and standard walker Services in the home/community: none Receives hemodialysis? No Emergency contact(s): Extended Emergency Contact Information Primary Emergency Contact: Ras Lagunas Mobile Relation: Son Prescription coverage: yes [facility] [address] [place] [address] Insurance coverage verified: Payor: [employer] MEDICARE ADVANTAGE / Plan: [employer]NA HMO SNP MCR / Product Type: HMO / Secondary Insurance:MEDICAID Medicaid Status: no spend down Has VA Benefits: no Employment Status: disabled DOES receive Disability Income. PCP verified as: Aguila Castro MD Patient has not had a stay at an acute care hospital in the last 30 days. Recent Falls?: Plan for transportation at discharge: may need assistance Care Management contact information provided. Care Management will continue to follow and assist asneeded. documented in this encounter Plan of Treatment Not on file documented as of this encounter Procedures Procedure Name Priority Date/Time Associated Diagnosis Comments TELEMETRY REPORT 10/09/2024 3:32 PM CDT UPPER ENDOSCOPY REPORT 10:02 AM CDT ESOPHAGOGASTRODUODENOSCOPY 10/08 9:20 AM CDT HEMOGLOBIN AND HEMATOCRIT Timed Study 2024 10:17 PM CDT GI PATHOGEN PCR PANEL Routine 10/07/2024 9:42 PM CDT HEMOGLOBIN AND HEMATOCRIT Timed Study 2024 3:51 PM CDT HEMOGLOBIN AND HEMATOCRIT Timed Study 2024 9:30 AM CDT HEMOGLOBIN AND HEMATOCRIT Timed Study 2024 4:16 AM CDT VERIFICATION BLOOD GROUP Stat 025 11:05 PM CDT Laboratory test EKG 12-LEAD Routine 10/06/2024 10:19 PM CDT PTT Stat 10/06/2024 10:05 PM CDT PROTIME-INR Stat 10/06/2024 10:05 PM CDT TYPE AND SCREEN Routine 10/06/2024 10:05 PM CDT CBC WITH DIFFERENTIAL Stat 10/06/2024 10:04 PM CDT PHOSPHORUS Routine 10/06/2024 10:04 PM CDT MAGNESIUM LEVEL Routine 10/06/2024 10:04 PM CDT COMPREHENSIVE METABOLIC PANEL Stat 10:04 PM CDT documented in this encounter Results * TELEMETRY REPORT (10/09/2024 3:32 PM CDT) us Provider Scanning ECG ORDERABLES Final Result * UPPER ENDOSCOPY REPORT (10/08/2024 10:02 AM CDT) Narrative Procedure Note Carmine Dubois MD - 10/08/2024 10:02 AM CDT [facility] GI Patient Name: Arlene Quach Procedure Date: 10/08/2024 Date of : 1965 Admit Type: Inpatient Age: 59 Attending MD: Carmine Dubois MD, Procedure: Upper GI endoscopy Indications: Hematochezia, Melena Providers: Carmine Dubois MD Referring MD: Medicines: Monitored Anesthesia Care Complications: No immediate complications. Procedure: Pre-Anesthesia Assessment: - Prior to the procedure, a History and Physical was performed, and patient medications and allergies were reviewed. The patient's tolerance of previous anesthesia was also reviewed. The risks and benefits of the procedure and the sedation options and risks were discussed with the patient. All questions were answered, and informed consent was obtained. Prior Anticoagulants: The patient has taken no anticoagulant or antiplatelet agents. ASA Grade Assessment: III - A patient with severe systemic disease. After reviewing the risks and benefits, the patient was deemed in satisfactory condition to undergo the procedure. After obtaining informed consent, the endoscope was passed under direct vision. Throughout the procedure, the patient's blood pressure, pulse, and oxygen saturations were monitored continuously. The Endoscope was introduced through the mouth, and advanced to the second part of duodenum. The upper GI endoscopy was accomplished without difficulty. The patient tolerated the procedure well. Estimated Blood Loss: Estimated blood loss: none. Findings: Grade II varices were found in the distal esophagus. They were medium in size. No high risk stigmata noted. Moderate portal hypertensive gastropathy was found in the stomach. Few non-bleeding cratered duodenal ulcers with a clean ulcer base (Dell Class III) were found in the duodenal bulb and in the second portion of the duodenum. The largest lesion was 10 mm in largest dimension. Likely secondary to previous APC/cautery on prior endoscopy. Impression: - Grade II esophageal varices. - Portal hypertensive gastropathy. - Non-bleeding duodenal ulcers with a clean ulcer base (Dell Class III). Likely secondary to previous APC/cautery. - No specimens collected. Recommendation: - Resume previous diet. - Continue present medications. - BID PPI PO x 2 months - Continue treatment with C diff with PO vancomycin x 14 days. - GI will sign off. Please call with any further questions or concerns. Carmine Dubois MD 10/08/2024 10:02:27 AM Number of Addenda: 0 Note Initiated On: 10/08/2024 9:39 AM Scope Withdrawal Time Scope In: Scope Out: [address] [place] us Carmine Dubois MD GI PROCEDURE ORDERA BLES Final Result * (ABNORMAL) HEMOGLOBIN AND HEMATOCRIT (10/07/2024 10:17 PM CDT) HEMOGLOBIN 10.0(L) 12.0 - 16.0 g/dL 10/07/2024 11:07 PM CDT [facility] HEMATOCRIT 30.9(L) 36.0 - 46.0 % 10/07/2024 11:07 PM CDT [facility] Blood Venipuncture / Unknown 10/07/2024 10:17 PM CDT 10/07/2024 10:20 PM CDT Alessandra Jolley DO HEMATOLOGY ORDERABLES Final Result [facility] CLIA # [id number] [address] [address] * (ABNORMAL) GI PATHOGEN PCR PANEL (10/07/2024 9:42 PM CDT) C difficile toxin A/B by PCR DETECTED( A) Not Detected 10/07/2024 11:33 PM CDT [facility] Comment: The [employer] GI PCR panel identifies the presence of C. difficile in the stool specimen but cannot differentiate between asymptomatic carriage and clinical infection. If clinically warranted, place patient in Contact Precautions-gown and gloves for every entry into patient rooms. Wash hands with soap and water. Stool STOOL SPECIMEN / Unknown Collection / Unknown 10/07/2024 9:42 PM CDT 10/07/2024 9:59 PM CDT Narrative [facility] - 10/07/2024 11:33 PM CDT Positive GI pathogen panel called to Shantelle London RN 3B by Laurie Lerma on 10/07/2024 at 11:32 PM with verbal readback. The Film [employer] GI Panel is a multiplexed nucleic acid detection test for 22 targets of bacteria, viruses, and parasites in stool that cause infectious diarrhea. Bacteria: Campylobacter C. difficile Plesiomonas shigelloides Salmonella Vibrio Vibrio cholerae Yersinia enterocolitica Enteroaggregative E. Coli (EAEC) Enteropathogenic E. Coli (EPEC) Enterotoxigenic E. Coli (ETEC) Shiga-like toxin-producing E. Coli (STEC) E. Coli O157 Shigella/Enteroinvasive E. Coli (EIEC) Viruses: Adenovirus F 40/41 Astrovirus Norovirus GI/GII Rotavirus A Sapovirus Parasites: Cryptosporidium Cyclospora cayetanensis Entamoeba histolytica Giardia duodenalis Alessandra Jolley DO MICROBIOLOGY - GENERAL ORDER VIVIANA Final Result Performing Organization Address [facility] Phone Number [facility] CLIA # [id number] [address] [place] [address] * (ABNORMAL) HEMOGLOBIN AND HEMATOCRIT (10/07/2024 3:51 PM CDT) HEMOGLOBIN 10.3(L) 12.0 - 16.0 g/dL 10/07/2024 4:09 PM CDT [facility] HEMATOCRIT 31.4(L) 36.0 - 46.0 % 10/07/2024 4:09 PM CDT [facility] Blood Venipuncture / Unknown 10/07/2024 3:51 PM CDT 10/07/2024 4:00 PM CDT Alessandra Jolley DO HEMATOLOGY ORDERABLES Final Result Performing Organization Address [facility] Phone Number [facility] CLIA # [id number] [address] [place] [address] * (ABNORMAL) HEMOGLOBIN AND HEMATOCRIT (10/07/2024 9:30 AM CDT) HEMOGLOBIN 11.1(L) 12.0 - 16.0 g/dL 10/07/2024 10:04 AM CDT [facility] [employer] [facility] HEMATOCRIT 34.3(L) 36.0 - 46.0 % 10/07/2024 10:04 AM CDT [facility] [employer] Blood Venipuncture / Unknown 10/07/2024 9:30 AM CDT 10/07/2024 9:43 AM CDT Alessandra Jolley DO HEMATOLOGY ORDERABLES Final Result Performing Organization Address City/[facility]/ZIP Co de Phone Number [facility] [employer] [facility] CLIA # [id number] [address] [address] * (ABNORMAL) HEMOGLOBIN AND HEMATOCRIT (10/07/2024 4:16 AM CDT) HEMOGLOBIN 10.2(L) 12.0 - 16.0 g/dL 10/07/2024 4:30 AM CDT [facility] [employer] [facility] HEMATOCRIT 31.4(L) 36.0 - 46.0 % 10/07/2024 4:30 AM CDT [facility] [employer] Blood Venipuncture / Unknown 10/07/2024 4:16 AM CDT 10/07/2024 4:20 AM CDT Alessandra Jolley DO HEMATOLOGY ORDERABLES Final Result Performing Organization Address [facility] Co de Phone Number [facility] [employer] [facility] CLIA # [id number] [address] [address] * VERIFICATION BLOOD GROUP (10/06/2024 11:05 PM CDT) ABO GROUP O 10/07/2024 12:13 AM CDT [facility] RH (D) TYPE Negative 10/07/2024 12:13 AM CDT [facility] Blood Venipuncture / Unknown 10/06/2024 11:05 PM CDT 10/06/2024 11:10 PM CDT Alessandra Jolley DO BLOOD BANK ORDERABLES Final Result Performing Organization Address City/[facility]/ZIP Co de Phone Number [facility] [employer] CLIA#[id number] [address] [place] [address], * EKG 12-LEAD (10/06/2024 10:19 PM CDT) 10/06/2024 10:1 9 PM CDT Narrative INTERFACE SYSTEM - 10/07/2024 1:13 PM CDT [facility] [address] [place] [address] Test Date: 2024-10-06 Pat Name: ARLENE QUACH Department: 12 Room: [address] [place] [address] Gender: Female Immigration Attorney: [id number] : 1965 Requested By: Order Number: [id number] Reading MD: Aleah Brian Measurements Intervals Ethel Rate: 60 P: 43 AZ: 166 QRS: 59 QRSD: 80 T: 42 QT: 422 QTc: 422 Interpretive Statements Normal sinus rhythm Low voltage QRS Cannot rule out Anterior infarct, age undetermined Abnormal ECG Electronically Signed On 10-07-2024 13:13:54 CDT by Aleah Brian Procedure Note Provider, Historical - 10/07/2024 [facility] [address] [place] [address] Test Date: 2024-10-06 Pat Name: ARLENE QUACH Department: 12 Room: [address] [place] [address] Gender: Female Immigration Attorney: [id number] : 1965 Requested By: Order Number: [id number] Reading THUAN Brian Measurements Intervals Ethel Rate: 60 P: 43 AZ: 166 QRS: 59 QRSD: 80 T: 42 QT: 422 QTc: 422 Interpretive Statements Normal sinus rhythm Low voltage QRS Cannot rule out Anterior infarct, age undetermined Abnormal ECG Electronically Signed On 10-07-2024 13:13:54 CDT by Aleah Brian us Alessandra Jolley DO ECG ORDERABLES Final Result INTERFACE SYSTEM Refer to clinic/hospital department * TYPE AND SCREEN (10/06/2024 10:05 PM CDT) ABO GROUP O 10/06/2024 11:44 PM CDT [facility] RH (D) TYPE Negative 10/06/2024 11:44 PM CDT [facility] ANTIBODY SCREEN Negative 10/06/2024 11:44 PM CDT [facility] Blood Venipuncture / Unknown 10/06/2024 10:05 PM CDT 10/06/2024 10:18 PM CDT Alessandra Jolley DO BLOOD BANK ORDERABLES Edited Result - Final [facility] [employer] [facility] CLIA#[id number] [address] [phone] * PTT (10/06/2024 10:05 PM CDT) PTT 32.1 24.8 - 37.2 seconds 10/06/2024 10:32 PM CDT [facility] Blood Venipuncture / Unknown 10/06/2024 10:05 PM CDT 10/06/2024 10:18 PM CDT Narrative [facility] [employer] [facility] - 10/06/2024 10:32 PM CDT Therapeutic Range: Hi-level PE/DVT heparin protocol 80.1 - 95.0 sec Lo-level PE/DVT heparin protocol 70.1 - 85.0 sec Cardiac Heparin Protocol 70.1 - 100.0 sec Alessandra Jolley DO HEMATOLOGY ORDERABLES Final Result [facility] [employer] [facility] CLIA # [id number] [address] [place] [address] * (ABNORMAL) PROTIME-INR (10/06/2024 10:05 PM CDT) PROTIME 16.0(H) 12.7 - 14.9 Seconds 10/06/2024 10:32 PM CDT [facility] INR 1.2 0.8 - 1.2 10/06/2024 10:32 PM CDT [facility] Blood Venipuncture / Unknown 10/06/2024 10:05 PM CDT 10/06/2024 10:18 PM CDT Narrative [facility] - 10/06/2024 10:32 PM CDT Expected Values for INR: DVT/PE Goal INR 2.5; range 2.0 - 3.0 Valve Replacement Tissue Goal INR 2.5; range 2.0 - 3.0 Valve Replacement Mechanical Goal INR 3.0; range 2.5 - 3.5 POST-WA Goal INR 2.5; range 2.0 - 3.0 or Goal INR 3.0; range 2.5 - 3.5 Atrial Fibrillation Goal INR 2.5; range 2.0 - 3.0 Ischemic Stroke Goal INR 2.5; range 2.0 - 3.0 Alessandra Jolley DO HEMATOLOGY ORDERABLES Final Result Performing Organization Address [facility]/ZIP Co de Phone Number [facility] CLIA # [id number] [address] [place] [address] * PHOSPHORUS (10/06/2024 10:04 PM CDT) PHOSPHORUS 3.5 2.5 - 4.5 mg/dL 10/06/2024 10:52 PM CDT [facility] Blood Venipuncture / Unknown 10/06/2024 10:04 PM CDT 10/06/2024 10:20 PM CDT Alessandra Jolley DO CHEMISTRY ORDERABLES Final R esult Performing Organization Address [facility]/ZIP Co de Phone Number [facility] CLIA # [id number] [address] [place] [address] * MAGNESIUM LEVEL (10/06/2024 10:04 PM CDT) Pathologist [facility] MAGNESIUM 2.0 1.6 - 2.4 mg/dL 10/06/2024 10:52 PM CDT [facility] Blood Venipuncture / Unknown 10/06/2024 10:04 PM CDT 10/06/2024 10:20 PM CDT Alessandra Jolley DO CHEMISTRY ORDERABLES Final R esult [facility] CLIA # [id number] [address] [place] [address] * (ABNORMAL) CBC WITH DIFFERENTIAL (10/06/2024 10:04 PM CDT) Pathologist [facility] WBC 4.3(L) 4.8 - 10.8 K/uL 10/06/2024 10:37 PM CDT [facility] RBC 3.98(L) 4.20 - 5.40 M/uL 10/06/2024 10:37 PM CDT [facility] HEMOGLOBIN 10.7(L) 12.0 - 16.0 g/dL 10/06/2024 10:37 PM CDT [facility] HEMATOCRIT 33.4(L) 36.0 - 46.0 % 10/06/2024 10:37 PM CDT [facility] MCV 83.9(L) 84.0 - 103.0 fL 10/06/2024 10:37 PM CDT [facility] MCH 26.9(L) 27.0 - 34.0 pg 10/06/2024 10:37 PM CDT [facility] MCHC 32.0 30.0 - 35.0 g/dL 10/06/2024 10:37 PM CDT [facility] PLATELETS 156 140 - 440 K/uL 10/06/2024 10:37 PM CDT [facility] MPV 10/06/2024 10:37 PM [facility] Comment:MPV not resulted due to platelet size variation. RDW 19.9(H) 11.0 - 14.5 % 10/06/2024 10:37 PM [facility] RDW-STDEV 61.5(H) 37.0 - 54.0 fL 10/06/2024 10:37 PM [facility] NEUTROPHILS 57 42 - 75 % 10/06/2024 10:37 PM [facility] LYMPHOCYTES 30 24 - 44 % 10/06/2024 10:37 PM [facility] MONOCYTES 12(H) 2 - 10 % 10/06/2024 10:37 PM [facility] EOSINOPHILS 0 0 - 7 % 10/06/2024 10:37 PM [facility] BASOPHILS 1 0 - 1 % 10/06/2024 10:37 PM [facility] IMMATURE GRANULOCYTES 0 0 - 2 % 10/06/2024 10:37 PM [facility] NEUTROPHIL ABSOLUTE 2.42 2.00 - 8.00 K/uL 10/06/2024 10:37 PM [facility] LYMPHOCYTE ABSOLUTE 1.26 1.20 - 4.00 K/uL 10/06/2024 10:37 PM [facility] MONOCYTE ABSOLUTE 0.53 0.10 - 0.60 K/uL 10/06/2024 10:37 PM [facility] EOSINOPHIL ABSOLUTE 0.01 0.00 - 0.70 K/uL 10/06/2024 10:37 PM [facility] BASOPHILS ABSOLUTE 0.03 0.00 - 0.20 K/uL 10/06/2024 10:37 PM [facility] IMMATURE GRANULOCYTES ABSOLUTE 0.01 0.00 - 0.10 K/uL 10/06/2024 10:37 PM [facility] SMEAR REVIEWED: NN - No Action Needed 10/06/2024 10:37 PM [facility] Blood Venipuncture / Unknown 10/06/2024 10:04 PM CDT 10/06/2024 10:18 PM CDT us Alessandra Jolley DO HEMATOLOGY ORDERABLES Final Result [facility] CLIA # [id number] [address] [address] [place] [address] * (ABNORMAL) COMPREHENSIVE METABOLIC PANEL (10/06/2024 10:04 PM CDT) [facility] SODIUM 140 136 - 145 mmol/L 10/06/2024 10:52 PM CDT [facility] POTASSIUM 4.1 3.5 - 5.1 mmol/L 10/06/2024 10:52 PM CDT [facility] CHLORIDE 108(H) 98 - 107 mmol/L 10/06/2024 10:52 PM CDT [facility] CO2 23 22 - 29 mmol/L 10/06/2024 10:52 PM CDT [facility] CALCIUM 8.8 8.8 - 10.2 mg/dL 10/06/2024 10:52 PM CDT [facility] BUN 8 8 - 23 mg/dL 10/06/2024 10:52 PM CDT [facility] CREATININE 0.76 0.51 - 0.95 mg/dL 10/06/2024 10:52 PM CDT [facility] GLUCOSE 88 74 - 99 mg/dL 10/06/2024 10:52 PM CDT [facility] TOTAL PROTEIN 6.1(L) 6.4 - 8.3 g/dL 10/06/2024 10:52 PM CDT [facility] ALBUMIN 3.8 3.5 - 5.2 g/dL 10/06/2024 10:52 PM CDT [facility] BILIRUBIN TOTAL 0.3 0.0 - 1.0 mg/dL 10/06/2024 10:52 PM CDT [facility] ALKALINE PHOSPHATASE 75 35 - 104 U/L 10/06/2024 10:52 PM CDT [facility] AST 21 10 - 35 U/L 10/06/2024 10:52 PM CDT [facility] ALT 19 <=35 U/L 10/06/2024 10:52 PM CDT [facility] GFR >60 >=60 mL/min/1.7 3 sq meter 10/06/2024 10:52 PM CDT [facility] Comment:eGFR calculated with 2020 CKD-EPI equation. Vegetarian diet, extremely high or low muscle mass, and may affect results. Cystatin C with Glomerular Filtration Rate is a suitable alternative for these patients. ANION GAP 9 9 - 20 mmol/L 10/06/2024 10:52 PM CDT [facility] Blood Venipuncture / Unknown 10/06/2024 10:04 PM CDT 10/06/2024 10:20 PM CDT Alessandra Jolley DO CHEMISTRY ORDERABLES Final R esult [facility] CLIA # [id number] [address] [place] [address] documented in this encounter Visit Diagnoses Diagnosis Gastrointestinal hemorrhage- Primary Hemorrhage of gastrointestinal tract, unspecified Laboratory test Laboratory examination, unspecified Acute blood loss anemia Acute posthemorrhagic anemia Intractable nausea and vomiting Persistent vomiting Duodenitis Duodenitis without mention of hemorrhage Acute diarrhea Diarrhea Esophageal varices determined by endoscopy (CMS/HCC) Portal hypertensive gastropathy (CMS/HCC) Other specified disorder of stomach and duodenum Angiodysplasia of stomach Angiodysplasia of stomach and duodenum (without mention of hemorrhage) Liver cirrhosis (CMS/HCC) Cirrhosis of liver without mention of alcohol 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 Cigarette nicotine dependence without complication Tobacco use disorder Laboratory test Laboratory examination, unspecified Acute gastrointestinal hemorrhage Hemorrhage of gastrointestinal tract, unspecified documented in this encounter Administered Medications Inactive Administered Medications - up to 3 most recent administrations Medication Order MAR Action Action Date Dose Rate Site acetaminophen (TYLENOL) tablet 650 mg 650 mg, Oral, EVERY 6 HOURS PRN, Starting on 10/06/24 at 2110, Until Tue10/08/24 at 1759, Other (See Comment), See admin instructions, Routine cetirizine (ZyrTEC) tablet 10 mg 10 mg, Oral, DAILY, First dose on 10/07/24 at 1015, Until Discontinued, Routine, Previous Med: cetirizine (ZyrTEC) 10 mg tablet - Orig Sig - Take 10 mg by mouth daily. Given 10/08/2024 10:51 AM CDT 10 mg Given 10/07/2024 10:52 AM CDT 10 mg HYDROcodone-acetaminophen (NORCO) 5-325 mg per tablet 1 Tablet 1 Tablet, Oral, EVERY 8 HOURS PRN, Starting on 10/07/24 at 1006, Until Tue10/08/24 at 1759, Pain (See admin instructions), Routine, Previous Med: HYDROcodone-acetaminophen (NORCO) 5-325 mg tablet - Orig Sig - Take by mouth. PRN Given 10/08/2024 12:05 PM CDT 1 Ta blet Given 10/07/2024 6:06 PM CDT 1 Tablet HYDROmorphone (PF) (DILAUDID) injection 0.3 mg 0.3 mg, IV, EVERY 4 HOURS PRN, Starting on 10/06/24 at 2110, Until Tue10/08/24 at 1759, Pain (See admin instructions), Routine Given 10/08/2024 4:58 AM CDT 0.3 mg Given 10/07/2024 10:51 AM CDT 0.3 mg Given 10/06/2024 10:38 PM CDT 0.3 mg levothyroxine (SYNTHROID) tablet 50 mcg 50 mcg, Oral, DAILY, First dose on Tue10/07/24 at 0900, Until Discontinued, Routine, Previous Med: levothyroxine 50 mcg tablet - Orig Sig - Take 50 mcg by mouth daily. Given 10/07/2024 9:39 AM CDT 50 mcg levothyroxine (SYNTHROID) tablet 50 mcg 50 mcg, Oral, DAILY EARLY, First dose (after last modification) on 10/08/24 at 0900, Until Discontinued, Routine, Previous Med: levothyroxine 50 mcg tablet - Orig Sig - Take 50 mcg by mouth daily. Given 10/08/2024 10:52 AM CDT 50 mcg naloxone (NARCAN) 0.4 mg/mL injection 0.1-0.4 mg 0.1-0.4 mg, IV, SEE ADMIN INSTRUCTIONS, Starting on 10/06/24 at 2108, Until 10/08/24 at 1759, Routine pantoprazole (PROTONIX) 40 mg in sodium chloride 0.9% 50 mL infusion (MBP) 8 mg/hr (10 mL/hr), IV, CONTINUOUS, Starting on 10/07/24 at 0015, Until 10/08/24 at 1759, Indication: Upper gastrointestinal (GI) bleed New Bag 10/08/2024 4:00 AM CDT 8 mg/hr 10 mL/hr New Bag 10/07/2024 10:43 PM CDT 8 mg/hr 10 mL/hr New Bag 10/07/2024 4:18 PM CDT 8 mg/hr 10 mL/hr pantoprazole (PROTONIX) 80 mg in sodium chloride 0.9% 20 mL injection 80 mg, IV, ONE TIME ONLY, 1 dose, On 10/07/24 at 0015, Routine, For vial+diluent: 10 mL NS is needed to reconstitute pantoprazole vial. For doses less than 40 mg Epic may default less than 10 mL NS. Pharmacist to change NS dispense amount to 10 mL., Indication: Upper gastrointestinal (GI) bleed Given 10/07/2024 1:02 AM CDT 80 mg prochlorperazine (COMPAZINE) injection 5 mg 5 mg, IV, EVERY 6 HOURS PRN, Starting on 10/06/24 at 2111, Until 10/08/24 at 1759, Nausea/Emesis, Other (See Comment), headache, Routine Given 10/08/2024 12:05 PM CDT 5 mg Given 10/08/2024 4:57 AM CDT 5 mg Given 10/07/2024 10:01 AM CDT 5 mg sodium chloride 0.9 % infusion IV, at 75 mL/hr, CONTINUOUS, Starting on 10/06/24 at 2115, Until [place] 10/07/24 at 2114, Routine New Bag 10/07/2024 4:17 PM CDT 75 mL/hr New Bag 10/06/2024 10:38 PM CDT 75 mL/hr traZODone (DESYREL) tablet 50 mg 50 mg, Oral, DAILY AT BEDTIME, First dose on 10/06/24 at 2345, Until Discontinued, Routine, Previous Med: traZODone (DESYREL) 50 mg tablet - Orig Sig - Take 50 mg by mouth daily at bedtime. Given 10/07/2024 10:38 PM CDT 50 mg Given 10/07/2024 1:01 AM CDT 50 mg vancomycin (VANCOCIN) capsule 125 mg 125 mg, Oral, EVERY 6 HOURS, First dose on 10/08/24 at 0030, Until Discontinued, Routine, Indication: c. diff treatment Given 10/08/2024 12:05 PM CDT 125 mg Given 10/08/2024 1:43 AM CDT 125 mg documented in this encounter Active and Recently Administered Medications Times are shown in CDT. Scheduled Medication Order 10/06/2024 10/07/2024 10/08/2024 aspirin (ECOTRIN EC) tablet 81 mg 81 mg, Oral, DAILY, First dose on 10/07/24 at 0900, Until Discontinued, Routine, Previous Med: aspirin (ECOTRIN EC) 81 mg Tablet, Delayed Release (E.C.) - Orig Sig - Take 81 mg by mouth daily. , On hold since 10/06/2024 at 2344 until manually unheld 2344 (Held by Provider - Provider: Alessandra Jolley DO - Reason: Patient condition) 0900 (Automatically Held) 0900 (Automatically Held)1759 (Order Unhold - Provider: PROVIDER, DISCHARGE PATIENT) cetirizine (ZyrTEC) tablet 10 mg 10 mg, Oral, DAILY, First dose on 10/07/24 at 1015, Until Discontinued, Routine, Previous Med: cetirizine (ZyrTEC) 10 mg tablet - Orig Sig - Take 10 mg by mouth daily. 1052 (Given - Provider: Mariann Vaughan RN) 1051 (Given - Provider: Mariela Wooten RN) levothyroxine (SYNTHROID) tablet 50 mcg (CANCELED) 50 mcg, Oral, DAILY, First dose on 10/07/24 at 0900, Until Discontinued, Routine, Previous Med: levothyroxine 50 mcg tablet - Orig Sig - Take 50 mcg by mouth daily. 0939 (Given - Provider: Mariann Vaughan RN) levothyroxine (SYNTHROID) tablet 50 mcg 50 mcg, Oral, DAILY EARLY, First dose (after last modification) on Tue10/08/24 at 0900, Until Discontinued, Routine, Previous Med: levothyroxine 50 mcg tablet - Orig Sig - Take 50 mcg by mouth daily. 1052 (Given - Provider: Mariela Wooten, RN) naloxone (NARCAN) 0.4 mg/mL injection 0.1-0.4 mg 0.1-0.4 mg, IV, SEE ADMIN INSTRUCTIONS, Starting on 10/06/24 at 2108, Until Tue10/08/24 at 1759, Routine pantoprazole (PROTONIX) 80 mg in sodium chloride 0.9% 20 mL injection (COMPLETED) 80 mg, IV, ONE TIME ONLY, 1 dose, On 10/07/24 at 0015, Routine, For vial+diluent: 10 mL NS is needed to reconstitute pantoprazole vial. For doses less than 40 mg Epic may default less than 10 mL NS. Pharmacist to change NS dispense amount to 10 mL., Indication: Upper gastrointestinal (GI) bleed 0102 (Given - Provider: Shantelle London, AMARIS) traZODone (DESYREL) tablet 50 mg 50 mg, Oral, DAILY AT BEDTIME, First dose on 10/06/24 at 2345, Until Discontinued, Routine, Previous Med: traZODone (DESYREL) 50 mg tablet - Orig Sig - Take 50 mg by mouth daily at bedtime. 0101 (Given - Provider: Shantelle London RN)2100 (Refused - Provider: Shantelle London RN)2238 (Given - Provider: Shantelle London RN) vancomycin (VANCOCIN) capsule 125 mg 125 mg, Oral, EVERY 6 HOURS, First dose on Tue10/08/24 at 0030, Until Discontinued, Routine, Indication: c. diff treatment 0143 (Given - Provider: Shantelle London RN)0600 (Not Given - Provider: Shantelle London RN - Reason: Patient nauseated)1205 (Given - Provider: Mariela Wooten, AMARIS) Continuous Medication Order 10/06/2024 10/07/2024 10/08/2024 pantoprazole (PROTONIX) 40 mg in sodium chloride 0.9% 50 mL infusion (MBP) 8 mg/hr (10 mL/hr), IV, CONTINUOUS, Starting on 10/07/24 at 0015, Until 10/08/24 at 1759, Indication: Upper gastrointestinal (GI) bleed 0015 (Canceled Entry - Provider: Shantelle London RN)0154 (Canceled Entry - Provider: Shantelle London RN)0252 (New Bag - Provider: Shantelle London RN)0255 (Canceled Entry - Provider: Shantelle Lnodon RN)0929 (New Bag - Provider: Mariann Vaughan RN)1618 (New Bag - Provider: Mariann Vaughan, AMARIS)2243 (New Bag - Provider: Shantelle London RN) 0400 (New Bag - Provider: Shantelle London RN)1759 (Due: Order Ending - Provider: PROVIDER, DISCHARGE PATIENT - Comment: [Order ends at this time. Document the following action when infusion is complete: Stopped]) sodium chloride 0.9 % infusion () IV, at 75 mL/hr, CONTINUOUS, Starting on 10/06/24 at 2115, Until 10/07/24 at 2114, Routine 2238 (New Bag - Provider: Shantelle London RN) 161 (New Bag - Provider: Mariann Vaughan RN)211 (Stopped - Provider: Shantelle London RN - Comment: [Order ends at this time. Document the following action when infusion is complete: Stopped]) PRN Medication Order 10/06/2024 10/07/2024 10/08/2024 acetaminophen (TYLENOL) tablet 650 mg 650 mg, Oral, EVERY 6 HOURS PRN, Starting on 10/06/24 at 2110, Until 10/08/24 at 1759, Other (See Comment), See admin instructions, Routine HYDROcodone-acetaminop hen (NORCO) 5-325 mg per tablet 1 Tablet 1 Tablet, Oral, EVERY 8 HOURS PRN, Starting on 10/07/24 at 1006, Until 10/08/24 at 1759, Pain (See admin instructions), Routine, Previous Med: HYDROcodone-acetaminop hen (NORCO) 5-325 mg tablet - Orig Sig - Take by mouth. PRN 1806 (Given - Provider: Mariann Vaughan, AMARIS) 1205 (Given - Provider: Mariela Wooten, AMARIS) HYDROmorphone (PF) (DILAUDID) injection 0.3 mg 0.3 mg, IV, EVERY 4 HOURS PRN, Starting on 10/06/24 at 2110, Until 10/08/24 at 1759, Pain (See admin instructions), Routine 2238 (Given - Provider: Shantelle London RN) 1051 (Given - Provider: Mariann Vaughan RN) 0458 (Given - Provider: Shantelle London, AMARIS) prochlorperazine (COMPAZINE) injection 5 mg 5 mg, IV, EVERY 6 HOURS PRN, Starting on 10/06/24 at 2111, Until 10/08/24 at 1759, Nausea/Emesis, Other (See Comment), headache, Routine 1001 (Given - Provider: Mariann Vaughan RN) 0457 (Given - Provider: Shantelle London, AMARIS)1205 (Given - Provider: Mariela Wooten, AMARIS) tiZANidine (ZANAFLEX) tablet 4 mg 4 mg, Oral, EVERY 8 HOURS PRN, Starting on 10/07/24 at 1006, Until 10/08/24 at 1759, Spasm, Routine documented in this encounter Additional Health Concerns Infection Onset Date Last Indicated Resolved Time R/O GI Pathogen 10/06/2024 10/07/2024 10/07/2024 1 1:33 PM CDT C Diff 10/07/2024 10/07/2024 documented as of this encounter Care Teams Athletic Instructor Relationship Specialty Start Date End Date Aguila Castro MD [address] [id number] PCP - General Family Practice 05/26/21 documented as of this encounter
--- OUTSIDE RECORDS SUMMARY | 2024-10-08 09:20 | XMS_ITS | Encounter Summary ---
Author Organization [facility] Address [address] [place] [address] Care Team Providers Care Information Management Manager Name Role Phone Aguila Castro MD Primary Care Provider + Reason for Visit * Auth/Cert (Routine) Specialty Diagnoses / Procedures Referred By Maryjane tim Referred To Contact General Surgery Diagnoses GI bleed Mohit Gomez MD [address] [place] [address] Phone: tel: fax: [facility] 3B Surgical [address] [place] [address] Phone: tel: fax: Referral ID Status Reason Start Date Expiration Date Visits Re quested Visits Authorized [id number] 1 1 Encounter Details Date Type Department Care Team (Late st Contact Info) Description 10/08/2024 9:20 AM CDT - 10/08/2024 9:40 AM CDT Surgery [facility] Endoscopy [address] [place] [address] Carmine Dubois MD [address] [facility] [address] [place] [address] ESOPHAGOGASTRODUODENOSCOPY Surgery Details Date/Time Status Location OR Service Patient Class Case Class Case Type Trauma Case? 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 Gender Identity Not on file Sexual Orientation Not on file documented as of this encounter Last Filed Vital Signs Vital Sign Reading Time Taken Comments Blood Pressure 122/71 10/08/2024 8:40 AM CDT Pulse 58 10/08/2024 8:40 AM CDT Temperature 36.7 C (98 F) 10/08/2024 8:06 AM CDT Respiratory Rate 18 10/08/2024 8:40 AM CDT Oxygen Saturation 95% 10/08/2024 8:40 AM CDT Inhaled Oxygen Concentration - - Weight 69.5 kg (153 lb 3.5 oz) 10/07/2024 11:48 PM CDT Height 175.3 cm (5' 9 ) 10/06/2024 8:03 PM CDT Body Mass Index 22.63 10/06/2024 8:03 PM CDT documented in this encounter Discharge Summaries * Ovidio Palacios MD - 10/08/2024 1:36 PM CDT [facility] Arleen Quach 59 y.o. female 1965 CSN: [id number] Date of Admission: 10/06/2024 Date of Discharge: [...] ENDOSCOPY REPORT 10/08 0655 Note By: Edie Lou, AMARIS 10/07 0115 Note By: Thad Bejarano CNA [...] by mouth. PRN Refills: 0 IRON PS [id number] ACID ORAL Take by mouth. Refills: 0 [...] Your Medications These medications were sent to [facility] [address] [place] [address] [address], [facility] [address] pantoprazole 40 mg Tablet, Delayed Release (E.C.) [...] 69.5 kg (153 lb 3.5 oz) (10/07/24 9874) General : Alert oriented to time place [...] : no pedal edema, cyanosis or clubbing. 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. * Attachments The following attachments cannot be sent through Care Everywhere. * Diarrhea ([place] Sudanese) * EGD (Upper Endoscopy): Post op ([place]ese) * Vancomycin ([place]ese) documented in this encounter Medications at Time [...] as needed for Nausea. 02/01/2023 IRON PS [id number] C ACID ORAL Take by mouth. multivitamin (DAILY-MARIO) tablet Take 1 Tablet by mouth daily. vitamin E 400 unit capsule Take 400 Units by mouth daily. documented as of this encounter Progress Notes * Ovidio Palacios MD - 10/07/2024 10:00 AM CDT Images from the original note were not included. [facility] Hospitalist/Internal Medicine Progress note Patient name: Arlene Quach Date of : 1965 Room/Bed: [address] [place] [address] LOS: LOS: 1 day HOSPITAL COURSE SUMMARY: 59 y.o. female with hereditary hemorrhagic telangiectasias and cirrhosis of the liver is admitted directly from the ER in [place] for passing black and red blood per rectum, intractable nausea and vomiting, abnormal CT abdomen and pelvis. Patient was directly admitted to our medical telemetry floor. She states that since she had the EGDand colonoscopy [place] [facility] here (results listed below) she has been [...] : no pedal edema, cyanosis or clubbing. COMMANDING OFFICER GARAGE: CN 2-12 grossly intact, motor 5/5 in all limbs. Psych: Mode normal , behavior appropriate LABORATORY: Recent Labs 10/06/24 2204 10/07/24 0416 10/07/24 0930 WBC 4.3* -- -- HGB 10.7* 10.2* 11.1* HCT 33.4* 31.4* 34.3* PLT 156 -- -- Recent Labs 10/06/24 2204 NA 140 K 4.1 CL 108* CO2 [...] and Referring and communication with other health care transitions manager (not separately reported). Ovidio Palacios MD 10/07/2024, 3:22 PM Portions of this documentation may have been created by an artificial packaging sales software. Effort has been done to assure accuracy of packaging sales. Any obvious errors or omissions should be clarified with the author of the document. documented in this encounter H&P Notes * Carmine Dubois MD - 10/08/2024 9:44 AM CDT Arlene Quach 1965 CSN:[id number] 10/08/2024 Referring physician: Aguila Castro MD Endoscopy [...] HX LAPAROTOMY OOPHERECTOMY Right HX TUBAL LIGATION ND COLONOSCOPY FLX DX W/COLLJ SPEC WHEN PFRMD N/A 10/03/2024 COLONOSCOPY performed by Carmine Dickerson DO at [facility] ENDOSCOPY ND ESOPHAGOGASTRODUODENOSCOPY TRANSORAL DIAGNOSTIC N/A 05/08/2024 ESOPHAGOGASTRODUODENOSCOPY performed by Gera Resendez DO at [facility] ENDOSCOPY ND ESOPHAGOGASTRODUODENOSCOPY TRANSORAL DIAGNOSTIC N/A 10/03/2024 ESOPHAGOGASTRODUODENOSCOPY performed by Carmine Dickerson DO at [facility] ENDOSCOPY ND REMOVAL IMPLANT DEEP Right 05/27/2021 HARDWARE REMOVAL performed by Rolando Riley MD at [facility] MAIN OR Allergies Allergen Reactions Sulfa (Sulfonamide [...] 6 hours as needed forNausea. IRON PS [id number] ACID ORAL Take by mouth. montelukast (SINGULAIR) [...] consent was obtained. Carmine Dubois MD * JolleyAlessandra, DO - 10/06/2024 8:59 PM CDT [place], [place] HOSPITALIST HISTORY AND PHYSICAL Patient name: Arlene Quach CSN: [id number] Date of admission: 10/06/2024 I have personally seen, questioned and examined the patient at the bedside. I have personally reviewed the patient's chart and ER records from [facility]. Chief complaint: 59 y.o. female with hereditary hemorrhagic telangiectasias and cirrhosis of the liver is admitted directly from the ER in [place] for passing black and red blood per [...] epigastrium. Per workup in the ER in [place], hemoglobin is 11.8. CMP was stable. Lactic [...] Sig: Take by mouth. PRN IRON PS [id number] ACID ORAL Sig: Take by mouth. aspirin [...] HX LAPAROTOMY OOPHERECTOMY Right HX TUBAL LIGATION ND COLONOSCOPY FLX DX W/COLLJ SPEC WHEN PFRMD N/A 10/03/2024 COLONOSCOPY performed by Carmine Dickerson DO at [facility] ENDOSCOPY ND ESOPHAGOGASTRODUODENOSCOPY TRANSORAL DIAGNOSTIC N/A 05/08/2024 ESOPHAGOGASTRODUODENOSCOPY performed by Gera Resendez DO at [facility] ENDOSCOPY ND ESOPHAGOGASTRODUODENOSCOPY TRANSORAL DIAGNOSTIC N/A 10/03/2024 ESOPHAGOGASTRODUODENOSCOPY performed by Carmine Dickerson DO at [facility] ENDOSCOPY ND REMOVAL IMPLANT DEEP Right 05/27/2021 HARDWARE REMOVAL performed by Rolando Riley MD at [facility] MAIN OR Family History Problem Relation Name [...] been made to improve accuracy of the packaging sales. Any obvious errors or omissions should be [...] Time Scope In: Scope Out: [address] [place], [place] * Edie Lou RN - 10/08/2024 6:55 AM CDT VASCULAR ACCESS TEAM Peripheral IV insertion PATIENT NAME: Arlene Quach DATE OF : 1965 CSN: [id number] DATE: 10/08/2024 Room: [address] [place] [address] Admit Date: 10/06/2024 Hospital day: LOS: 2 [...] Arlene Quach DATE OF : 1965 CSN: [id number] DATE: 10/07/2024 Room: [address] [place] [address] Admit Date: 10/06/2024 Hospital day: LOS: 1 [...] in EMR flowsheet Patient tolerated well. Thad Bejarano CNA documented in this encounter Consult Notes * Edie Lou, RN - 10/08/2024 6:40 AM CDTAssociated Order(s): IP CONSULT TO IV TEAM VASCULAR ACCESS CONSULT PATIENT NAME: Arleen Quach DATE OF : 1965 CSN: [id number] DATE: 10/08/2024 Room: [address] [place] [address] Admit Date: 10/06/2024 Hospital day: LOS: 2 [...] HX LAPAROTOMY OOPHERECTOMY Right HX TUBAL LIGATION ND COLONOSCOPY FLX DX W/COLLJ SPEC WHEN PFRMD N/A 10/03/2024 COLONOSCOPY performed by Carmine Dickerson DO at [facility] ENDOSCOPY ND ESOPHAGOGASTRODUODENOSCOPY TRANSORAL DIAGNOSTIC N/A 05/08/2024 ESOPHAGOGASTRODUODENOSCOPY performed by Gera Resendez DO at [facility] ENDOSCOPY ND ESOPHAGOGASTRODUODENOSCOPY TRANSORAL DIAGNOSTIC N/A 10/03/2024 ESOPHAGOGASTRODUODENOSCOPY performed by Carmine Dickerson DO at [facility] ENDOSCOPY ND REMOVAL IMPLANT DEEP Right 05/27/2021 HARDWARE REMOVAL performed by Rolando Riley MD at [facility] MAIN OR Current Facility-Administered Medications: vancomycin (VANCOCIN) [...] 650 mg, Oral, every 6 hours PRN, Alessandra Jolley DO HYDROmorphone (PF) (DILAUDID) injection 0.3 mg, [...] PATIENT NAME: Arlene Quach : 1965 CSN: [id number] CONSULTATION DATE: 10/07/2024 REQUESTING PROVIDER: Hector Fuller [...] HX LAPAROTOMY OOPHERECTOMY Right HX TUBAL LIGATION ND COLONOSCOPY FLX DX W/COLLJ SPEC WHEN PFRMD N/A 10/03/2024 COLONOSCOPY performed by Carmine Dickerson DO at [facility] ENDOSCOPY ND ESOPHAGOGASTRODUODENOSCOPY TRANSORAL DIAGNOSTIC N/A 05/08/2024 ESOPHAGOGASTRODUODENOSCOPY performed by Gera Resendez DO at [facility] ENDOSCOPY ND ESOPHAGOGASTRODUODENOSCOPY TRANSORAL DIAGNOSTIC N/A 10/03/2024 ESOPHAGOGASTRODUODENOSCOPY performed by Carmine Dickerson DO at [facility] ENDOSCOPY ND REMOVAL IMPLANT DEEP Right 05/27/2021 HARDWARE REMOVAL performed by Rolando Riley MD at [facility] MAIN OR ALLERGIES: Allergies Allergen Reactions Sulfa [...] mL/hr at 10/06/24 2238 New Bag at 10/06/242237 acetaminophen (TYLENOL) tablet 650 mg 650 mg Oral every 6 hours PRN Alessandra Jolley DO HYDROmorphone (PF) (DILAUDID) injection 0.3 mg 0.3 mg IV every 4 hours PRN Alessandra Jolley DO 0.3 mg at 10/06/242237 prochlorperazine (COMPAZINE) injection 5 mg 5 mg [...] 10/07/24 0101 SOCIAL HISTORY: Patient lives in [facility]. FAMILY HISTORY: Noncontributory. REVIEW OF SYSTEMS: Otherwise [...] RECTAL: Not done at this time. SKIN: [place], warm, dry. NEURO: Grossly intact, alert, oriented. [...] needs upon admission and through discharge Description: Sales Review Clerk Discharge Planning Pt currently off unit for [...] and available to assist if needed?: Yes (10/08/241140) Name and Relation: justus Mcginnis (10/08/24 114) Referrals Status: Follow-up on Referrals Sent: No (10/07/241813) Preferred Pharmacy: 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 [...] son Comments: Patient is an admit from [facility] for passing black and red blood per [...] Son Prescription coverage: yes Preferred Pharmacy verified: [facility] [address] [place] [address] Insurance coverage verified: Payor: [employer] MEDICARE ADVANTAGE / Plan: [employer] HMO SNP [...] Time Scope In: Scope Out: [address] [place] us Carmine Dubois MD GI PROCEDURE ORDERA BLES Final Result * (ABNORMAL) HEMOGLOBIN AND HEMATOCRIT (10/07/2024 10:17 PM CDT) HEMOGLOBIN 10.0(L) 12.0 - 16.0 g/dL 10/07/2024 11:07 PM CDT [facility] HEMATOCRIT 30.9(L) 36.0 - 46.0 % 10/07/2024 11:07 PM CDT [facility] Blood Venipuncture / Unknown 10/07/2024 10:17 PM CDT 10/07/2024 10:20 PM CDT Alessandra Jolley DO HEMATOLOGY ORDERABLES Final Result [facility] CLIA # [id number] [address] [place] [address] * (ABNORMAL) GI PATHOGEN PCR PANEL (10/07/2024 9:42 PM CDT) Pathologist [facility] C difficile toxin A/B by PCR DETECTED( A) Not Detected 10/07/2024 11:33 PM CDT [facility] Comment: The FilmArray GI PCR panel [...] PM CDT 10/07/2024 9:59 PM CDT Narrative [facility] - 10/07/2024 11:33 PM CDT Positive [...] ORDER VIVIANA Final Result Performing Organization Address [facility] Co de Phone Number [facility] # [id number] [address] [place] [address] 947164 * (ABNORMAL) HEMOGLOBIN AND HEMATOCRIT (10/07/2024 3:51 PM CDT) HEMOGLOBIN 10.3(L) 12.0 - 16.0 g/dL 10/07/2024 4:09 PM CDT [facility] HEMATOCRIT 31.4(L) 36.0 - 46.0 % 10/07/2024 4:09 PM CDT [facility] Blood Venipuncture / Unknown 10/07/2024 3:51 PM CDT 10/07/2024 4:00 PM CDT Alessandra Jolley DO HEMATOLOGY ORDERABLES Final Result Performing Organization Address [facility] Co de Phone Number [facility] CLIA # [id number] [address] [place] [address] * (ABNORMAL) HEMOGLOBIN AND HEMATOCRIT (10/07/2024 9:30 AM CDT) HEMOGLOBIN 11.1(L) 12.0 - 16.0 g/dL 10/07/2024 10:04 AM CDT [facility] HEMATOCRIT 34.3(L) 36.0 - 46.0 % 10/07/2024 10:04 AM CDT [facility] Blood Venipuncture / Unknown 10/07/2024 9:30 AM CDT 10/07/2024 9:43 AM CDT Alessandra Jolley DO HEMATOLOGY ORDERABLES Final Result Performing Organization Address [facility] de Phone Number [facility] CLIA # [id number] [address] [address] * (ABNORMAL) HEMOGLOBIN AND HEMATOCRIT (10/07/2024 4:16 AM CDT) HEMOGLOBIN 10.2(L) 12.0 - 16.0 g/dL 10/07/2024 4:30 AM CDT [facility] HEMATOCRIT 31.4(L) 36.0 - 46.0 % 10/07/2024 4:30 AM CDT [facility] Blood Venipuncture / Unknown 10/07/2024 4:16 AM CDT 10/07/2024 4:20 AM CDT Alessandra Jolley DO HEMATOLOGY ORDERABLES Final Result Performing Organization Address [facility] Phone Number [facility] CLIA # [id number] [address] [address] * VERIFICATION BLOOD GROUP (10/06/2024 11:05 PM CDT) ABO GROUP O 10/07/2024 12:13 AM CDT [facility] RH (D) TYPE Negative 10/07/2024 12:13 AM CDT [facility] Blood Venipuncture / Unknown 10/06/2024 11:05 PM CDT 10/06/2024 11:10 PM CDT Alessandra Jolley DO BLOOD BANK ORDERABLES Final Result Performing Organization Address City/[facility]/ZIP Co de Phone Number [facility] [place] CLIA#[id number] [facility] [place] [address], [place] [phone] * EKG 12-LEAD (10/06/2024 10:19 PM CDT) 10/06/2024 10:1 9 PM CDT Narrative INTERFACE SYSTEM - 10/07/2024 1:13 [place] [address] Test Date: 2024-10-06 Pat Name: ARLENE QUACH Department: 12 Room: [address] [place] [address] 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: [id number] : 1965 Requested By: Order Number: [id number] Reading MD: Aleah Brian Measurements Intervals Henderson Rate: 60 P: 43 ND: 166 QRS: 59 QRSD: 80 T: 42 QT: 422 QTc: 422 Interpretive Statements Normal sinus rhythm Low voltage QRS Cannot rule out Anterior infarct, age undetermined Abnormal ECG Electronically Signed On 10-07-2024 13:13:54 CDT by Aleah Brian Procedure Note Provider, Historical - 10/07/2024 [place] [address] Test Date: 2024-10-06 Pat Name: ARLENE QUACH Department: 12 Room: [facility] 01 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: [id number] : 1965 Requested By: Order Number: [id number] Reading : Aleah Brian Measurements Intervals [place] Rate: 60 P: 43 ND: 166 QRS: 59 QRSD: 80 T: 42 QT: 422 QTc: 422 Interpretive Statements Normal sinus rhythm Low voltage QRS Cannot rule out Anterior infarct, age undetermined Abnormal ECG Electronically Signed On 10-07-2024 13:13:54 CDT by Aleah Brian us Alessandra Jolley DO ECG ORDERABLES Final Result INTERFACE SYSTEM Refer to clinic/hospital department * TYPE AND SCREEN (10/06/2024 10:05 PM CDT) [facility] ABO GROUP O 10/06/2024 11:44 PM CDT [facility] RH (D) TYPE Negative 10/06/2024 11:44 PM CDT [facility] ANTIBODY SCREEN Negative 10/06/2024 11:44 PM CDT [facility] Blood Venipuncture / Unknown 10/06/2024 10:05 PM CDT 10/06/2024 10:18 PM CDT Alessandra Jolley BLOOD BANK ORDERABLES Edited Result - Final Performing Organization Address [facility]/ZIP Co de Phone Number [facility] CLIA#[id number] [address] [place] [address], [place] [phone] * PTT (10/06/2024 10:05 PM CDT) [facility] PTT 32.1 24.8 - 37.2 seconds 10/06/2024 10:32 PM CDT [facility] Blood Venipuncture / Unknown 10/06/2024 10:05 PM CDT 10/06/2024 10:18 PM CDT Narrative [facility] - 10/06/2024 10:32 PM CDT Therapeutic Range: Hi-level PE/DVT heparin protocol 80.1 - 95.0 sec Lo-level PE/DVT heparin protocol 70.1 - 85.0 sec Cardiac Heparin Protocol 70.1 - 100.0 sec Alessandra Jolley DO HEMATOLOGY ORDERABLES Final Result [facility] CLIA # [id number] [address] [place] [address] * (ABNORMAL) PROTIME-INR (10/06/2024 10:05 PM CDT) PROTIME 16.0(H) 12.7 - 14.9 Seconds 10/06/2024 10:32 PM CDT [facility] INR 1.2 0.8 - 1.2 10/06/2024 10:32 PM CDT [facility] Blood Venipuncture / Unknown 10/06/2024 10:05 PM CDT 10/06/2024 10:18 PM CDT Narrative [facility] - 10/06/2024 10:32 PM CDT Expected Values for INR: DVT/PE Goal INR 2.5; range 2.0 - 3.0 Valve Replacement Tissue Goal INR 2.5; range 2.0 - 3.0 Valve Replacement Mechanical Goal INR 3.0; range 2.5 - 3.5 POST-[place] Goal INR 2.5; range 2.0 - 3.0 or Goal INR 3.0; range 2.5 - 3.5 Atrial Fibrillation Goal INR 2.5; range 2.0 - 3.0 Ischemic Stroke Goal INR 2.5; range 2.0 - 3.0 Alessandra Jolley DO HEMATOLOGY ORDERABLES Final Result Performing Organization Address City/[facility]/ZIP Co de Phone Number [facility] CLIA # [id number] [address] [address] * PHOSPHORUS (10/06/2024 10:04 PM CDT) PHOSPHORUS 3.5 2.5 - 4.5 mg/dL 10/06/2024 10:52 PM CDT [facility] Blood Venipuncture / Unknown 10/06/2024 10:04 PM CDT 10/06/2024 10:20 PM CDT Alessandra Jolley DO CHEMISTRY ORDERABLES Final R esult [facility] CLIA # [id number] [address] [place] [address] * MAGNESIUM LEVEL (10/06/2024 10:04 PM CDT) [facility] MAGNESIUM 2.0 1.6 - 2.4 mg/dL 10/06/2024 10:52 PM CDT [facility] Blood Venipuncture / Unknown 10/06/2024 10:04 PM CDT 10/06/2024 10:20 PM CDT us Alessandra Jolley DO CHEMISTRY ORDERABLES Final R esult [facility] CLIA # [id number] [address] [facility] [place] [address] * (ABNORMAL) CBC WITH DIFFERENTIAL (10/06/2024 10:04 PM CDT) [facility] WBC 4.3(L) 4.8 - 10.8 K/uL 10/06/2024 10:37 PM CDT [facility] RBC 3.98(L) 4.20 - 5.40 M/uL 10/06/2024 10:37 PM CDT [facility] HEMOGLOBIN 10.7(L) 12.0 - 16.0 g/dL 10/06/2024 10:37 PM CDT [facility] HEMATOCRIT 33.4(L) 36.0 - 46.0 % 10/06/2024 10:37 PM CDT [facility] MCV 83.9(L) 84.0 - 103.0 fL 10/06/2024 10:37 PM CDT [facility] MCH 26.9(L) 27.0 - 34.0 pg 10/06/2024 10:37 PM CDT [facility] MCHC 32.0 30.0 - 35.0 g/dL 10/06/2024 10:37 PM CDT [facility] PLATELETS 156 140 - 440 K/uL 10/06/2024 10:37 PM [facility] MPV 10/06/2024 10:37 PM [facility] Comment:MPV not resulted due to platelet size variation. RDW 19.9(H) 11.0 - 14.5 % 10/06/2024 10:37 PM [facility] RDW-STDEV 61.5(H) 37.0 - 54.0 fL 10/06/2024 10:37 PM [facility] NEUTROPHILS 57 42 - 75 % 10/06/2024 10:37 PM [facility] LYMPHOCYTES 30 24 - 44 % 10/06/2024 10:37 PM [facility] MONOCYTES 12(H) 2 - 10 % 10/06/2024 10:37 PM [facility] EOSINOPHILS 0 0 - 7 % 10/06/2024 10:37 PM [facility] BASOPHILS 1 0 - 1 % 10/06/2024 10:37 PM [facility] IMMATURE GRANULOCYTES 0 0 - 2 % 10/06/2024 10:37 PM [facility] NEUTROPHIL ABSOLUTE 2.42 2.00 - 8.00 K/uL 10/06/2024 10:37 PM [facility] LYMPHOCYTE ABSOLUTE 1.26 1.20 - 4.00 K/uL 10/06/2024 10:37 PM [facility] MONOCYTE ABSOLUTE 0.53 0.10 - 0.60 K/uL 10/06/2024 10:37 PM [facility] EOSINOPHIL ABSOLUTE 0.01 0.00 - 0.70 K/uL 10/06/2024 10:37 PM [facility] BASOPHILS ABSOLUTE 0.03 0.00 - 0.20 K/uL 10/06/2024 10:37 PM [facility] IMMATURE GRANULOCYTES ABSOLUTE 0.01 0.00 - 0.10 K/uL 10/06/2024 10:37 PM [facility] SMEAR REVIEWED: NN - No Action Needed 10/06/2024 10:37 PM [facility] Blood Venipuncture / Unknown 10/06/2024 10:04 PM CDT 10/06/2024 10:18 PM CDT Alessandra J Jolley HEMATOLOGY ORDERABLES Final Result [facility] CLIA # [id number] [address] [address] [place] [address] * (ABNORMAL) COMPREHENSIVE METABOLIC PANEL (10/06/2024 10:04 PM CDT) SODIUM 140 136 - 145 mmol/L 10/06/2024 10:52 PM CDT [facility] POTASSIUM 4.1 3.5 - 5.1 mmol/L 10/06/2024 10:52 PM CDT [facility] CHLORIDE 108(H) 98 - 107 mmol/L 10/06/2024 10:52 PM CDT [facility] CO2 23 22 - 29 mmol/L 10/06/2024 10:52 PM CDT [facility] CALCIUM 8.8 8.8 - 10.2 mg/dL 10/06/2024 10:52 PM CDT [facility] BUN 8 8 - 23 mg/dL 10/06/2024 10:52 PM CDT [facility] CREATININE 0.76 0.51 - 0.95 mg/dL 10/06/2024 10:52 PM CDT [facility] GLUCOSE 88 74 - 99 mg/dL 10/06/2024 10:52 PM CDT [facility] TOTAL PROTEIN 6.1(L) 6.4 - 8.3 g/dL 10/06/2024 10:52 PM CDT [facility] ALBUMIN 3.8 3.5 - 5.2 g/dL 10/06/2024 10:52 PM CDT [facility] BILIRUBIN TOTAL 0.3 0.0 - 1.0 mg/dL 10/06/2024 10:52 PM CDT [facility] ALKALINE PHOSPHATASE 75 35 - 104 U/L 10/06/2024 10:52 PM CDT [facility] AST 21 10 - 35 U/L 10/06/2024 10:52 PM CDT [facility] ALT 19 <=35 U/L 10/06/2024 10:52 PM CDT [facility] GFR >60 >=60 mL/min/1.7 3 sq meter 10/06/2024 10:52 PM CDT [facility] Comment:eGFR calculated with 2020 CKD-EPI equation. Vegetarian diet, extremely high or low muscle mass, and may affect results. Cystatin C with Glomerular Filtration Rate is a suitable alternative for these patients. ANION GAP 9 9 - 20 mmol/L 10/06/2024 10:52 PM T [facility] Blood Venipuncture / Unknown 10/06/2024 10:04 PM CDT 10/06/2024 10:20 PM CDT Alessandra Jolley DO CHEMISTRY ORDERABLES Final R esult [facility] CLIA # [id number] [address] [place] [id number] documented in this encounter Visit Diagnoses Not [...] Until Tue10/08/24 at 1759, Routine pantoprazole (PROTONIX) 40 mg in sodium chloride 0.9% 50 mL infusion (MBP) 8 mg/hr (10 mL/hr), IV, CONTINUOUS, Starting on 10/07/24 at 0015, Until Tue10/08/24 at 1759, Indication: Upper gastrointestinal (GI) bleed New Bag 10/08/2024 4:00 AM CDT 8 mg/hr 10 mL/hr New Bag 10/07/2024 10:43 PM CDT 8 mg/hr 10 mL/hr New Bag 10/07/2024 4:18 PM CDT 8 mg/hr 10 mL/hr prochlorperazine (COMPAZINE) injection 5 mg 5 mg, IV, EVERY 6 HOURS PRN, Starting on 10/06/24 at 2111, Until 10/08/24 at 1759, Nausea/Emesis, Other (See Comment), headache, Routine Given 10/08/2024 12:05 PM CDT 5 mg Given 10/08/2024 4:57 AM CDT 5 mg Given 10/07/2024 10:01 AM CDT 5 mg traZODone (DESYREL) tablet 50 mg 50 mg, [...] Vaughan RN) 1051 (Given - Provider: Mariela Wooten, AMARIS) levothyroxine (SYNTHROID) tablet 50 mcg (CANCELED) 50 mcg, Oral, DAILY, First dose on 10/07/24 at 0900, Until Discontinued, Routine, Previous Med: levothyroxine 50 mcg tablet - Orig Sig - Take 50 mcg by mouth daily. 938 (Given - Provider: Mariann Vaughan RN) levothyroxine (SYNTHROID) tablet 50 mcg 50 mcg, Oral, DAILY EARLY, First dose (after last modification) on 10/08/24 at 0900, Until Discontinued, Routine, Previous Med: levothyroxine 50 mcg tablet - Orig Sig - Take 50 mcg by mouth daily. 1052 (Given - Provider: Mariela Wooten RN) naloxone (NARCAN) 0.4 mg/mL injection 0.1-0.4 [...] 10 mL., Indication: Upper gastrointestinal (GI) bleed 010 (Given - Provider: Shantelle London RN) traZODone (DESYREL) tablet 50 mg 50 mg, [...] Reason: Patient nauseated)1205 (Given - Provider: Mariela Wooten RN) Continuous Medication Order 10/06/2024 10/07/2024 10/08/2024 pantoprazole [...] London RN)0255 (Canceled Entry - Provider: Shantelle London RN)0929 (New Bag - Provider: Mariann Vaughan RN)1618 (New Bag - Provider: Mariann Vaughan RN)2243 (New Bag - Provider: Shantelle London RN) 0400 (New Bag - Provider: Shantelle London RN)1759 (Due: Order Ending - Provider: PROVIDER, DISCHARGE PATIENT - Comment: [Order ends at this time. Document the following action when infusion is complete: Stopped]) sodium chloride 0.9 % infusion () IV, at 75 mL/hr, CONTINUOUS, Starting on 10/06/24 at 2115, Until 10/07/24 at 211, Routine 2238 (New Bag - Provider: Shantelle London RN) 1617 (New Bag - Provider: Mariann Vaughan RN)211 [...] mouth. PRN 1806 (Given - Provider: Mariann Vaughan RN) 1205 (Given - Provider: Mariela Wooten, AMARIS) [...] Vaughan RN) 0457 (Given - Provider: Shantelle Lnodon RN)1205 (Given - Provider: Mariela Wooten, AMARIS) tiZANidine [...] documented as of this encounter Care Teams Information Management Manager Relationship Specialty Start Date End Date Aguila Castro MD [address] [facility] [address] [place] [phone] PCP - General Family Practice 05/26/21 documented as of this encounter
--- OUTSIDE RECORDS SUMMARY | 2024-10-08 09:52 | XMS_ITS | Encounter Summary ---
Author Organization [facility] Address 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 Name Role Phone Aguila Castro MD Primary Care Provider + Reason for Visit * Auth/Cert (Routine) Specialty Diagnoses / Procedures Referred By Maryjane tim Referred To Contact General Surgery Diagnoses GI bleed Mohit Gomez MD [address] [place] [address] Phone: tel: fax: [facility] Surgical [address] [place] [address] Phone: tel: fax: Referral ID Status Reason Start Date Expiration Date Visits Re quested Visits Authorized [id number] 1 1 Encounter Details Date Type Department Care Team (Late st Contact Info) Description 10/08/2024 9:52 AM CDT Anesthesia Event [facility] Endoscopy [address] [place] [address] Rolando Sierra MD [address] [place] [address] Oliver Kumar AA [address] [place] [phone] Anesthesia Record Procedure Summary Procedure Name Responsible Anesthesiologist Anesthesia Start Time Anesthesia Stop Time ESOPHAGOGASTRODUODENOSCOPY (Esophagus) Rolando Sierra MD 10/08/24 0952 10/08/24 0958 Events Date Time Event Comment 10/08/2024 0938 0940 AN Equip Check Anesthesia eq uipment and materials checked in accordance with local policy. 0950 In Room This event disp lays the In Room time documented in the Surgical Log. Deleting this event will not remove it from the log but will remove it from the Grid and Graph timeline. 0952 An Start 0952 An Start Data 0952 Pre-Induction Immediate pre- induction anesthetic assessment performed. Vital signs as noted on graphic. 0952 An Induction 0952 Anesthesia Ready 0955 Procedure Start This event d isplays the Procedure Start time documented in the Surgical Log. Deleting this event will not remove it from the log but will remove it from the Grid and Graph timeline. 0957 Procedure Stop This event di splays the Procedure Stop time documented in the Surgical Log. Deleting this event will not remove it from the log but will remove it from the Grid and Graph timeline. 0958 an stop data 0958 An Stop 0958 Hand-off to [facility]ceiving [facility] karthik 1001 Out of Room This event disp lays the Out of Room time documented in the Surgical Log. Deleting this event will not remove it from the log but will remove it from the Grid and Graph timeline. Meds Name Total lidocaine PF (XYLOCAINE MPF) 2% injectio n 2.5 mL propofol (DIPRIVAN) 10 mg/mL injection 140 mg * Agents Name O2 * Blood No blood administrations on file. 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 Gender Identity Not on file Sexual Orientation Not on file documented as of this encounter OR Notes * Anesthesia Postprocedure Evaluation - Rolando Sierra MD - 10/08/2024 10:29 AM CDT Post Anesthesia Evaluation Vitals: Vitals Value Taken Time BP 118/64 10/08/24 10:17 Temp Resp 22 10/08/24 10:17 SpO2 97 % 10/08/24 10:17 Pulse 59 10/08/24 10:17 Heart Rate 60 bpm 10/08/24 10:00 Pain Rating: Pain Rating: Rest: 9 (10/08/24 0840) Presence of Pain: complains of pain/discomfort (10/08/24 2965) Anesthesia Post Evaluation Patient location during evaluation: PACU Patient participation: patient was able to participate in the post op evaluation Level of consciousness: 0 = alert, responsive, answers simple questions appropriately, able to perform simple tasks (age appropriate or baseline) Pain management: adequate Airway patency: patent Nausea or Vomiting: none Cardiovascular status: regular rate and rhythm Respiratory status: no respiratory symptoms Hydration status: well hydrated No notable events documented. Rolando Sierra MD * Anesthesia Handoff - Oliver Kumar AA - 10/08/2024 9:58 AM CDT Post-Anesthetic transfer of care report [...] BP Temp Resp SpO2 Pulse Heart Rate 9:58 AM ABARHAM Ventura * Anesthesia Preprocedure Evaluation - Rolando Sierra MD - 10/08/2024 9:16 AM CDT Relevant Problems CARDIOVASCULAR (+) Angiodysplasia of stomach (+) Esophageal varices determined by endoscopy (CMS/HCC) (+) Esophageal varices without bleeding (CMS/HCC) (+) HHT (hereditary hemorrhagic telangiectasia) RENAL (+) Cirrhosis of liver without ascites (CMS/HCC) (+) Liver cirrhosis (CMS/HCC) Anesthesia Evaluation Airway Mallampati: II Dental - normal exam Pulmonary - negative ROS breath sounds clear to auscultation Cardiovascular - negative ROS ECG reviewed Rhythm: regular Rate: normal Neuro/Psych (+) CVA, psychiatric history GI/Hepatic/Renal (+) PUD, liver disease Endo/Other (+) hypothyroidism Abdominal Anesthesia History Anesthesia Plan ASA Final: 3 MAC Mask airway maintenance NPO status > 8 hours Anesthetic plan and risks discussed with Patient. documented in this encounter Plan of Treatment Not on file documented as of this encounter Visit Diagnoses Not on filedocumented in this encounter Administered Medications Inactive Administered Medications - up to 3 most recent administrations Medication Order MAR Action Action Date Dose Rate Site lidocaine PF 2% (XYLOCAINE MPF) injection IV, INTRA-PROCEDURE PRN, Starting on Tue10/08/24 at 0952, Until Tue10/08/24 at 0958, Routine, Anesthesia Intra-op Given 10/08/2024 9:52 AM CDT 2.5 mL propofoL (DIPRIVAN) injection IV, INTRA-PROCEDURE PRN, Starting on Tue10/08/24 at 0952, Until Tue10/08/24 at 0958, Anesthesia Intra-op Given 10/08/2024 9:52 AM CDT 140 mg documented in this encounter Additional Health Concerns Infection Onset Date Last Indicated Resolved Time C Diff 10/07/2024 10/07/2024 documented as of this encounter Care Teams Impact Retail Service Merchandiser Relationship Specialty Start Date End Date Aguila Castro MD [address] [phone] PCP - General Family Practice 05/26/21 documented as of this encounter
--- OUTSIDE RECORDS SUMMARY | 2024-10-13 08:38 | XMS_ITS | Encounter Summary ---
Author Organization [facility] Address [address] [place] [address] Care Team Providers Care Leasing Associate Name Role Phone Aguila Castro MD Primary Care Provider + Reason for Referral * Eval and Treat (Urgent) - Open Specialty Diagnoses / Procedures Referred By Maryjane tim Referred To Contact Diagnoses Cirrhosis of liver with ascites, unspecified hepatic cirrhosis type (CMS/HCC) Abdominal distention Gastritis without bleeding, unspecified chronicity, unspecified gastritis type Procedures AR OFFICE/OUTPATIENT ESTABLISHED MOD MDM 30 MIN AR OFFICE/OUTPATIENT NEW MODERATE MDM 45 MINUTES Colt Tavera MD [address] [place] [address] Phone: tel: fax: Referral ID Status Reason Start Date Expiration Date Visits Re quested Visits Authorized [id number] Open 10/13/2024 10/13/2025 1 1 Reason for Visit * Reason Comments Diarrhea States she was diagn osed with C-Diff. States she was admitted on Tuesday and discharged on Tuesday. States she is she is straining to have stool and has increased gas. Denies fever. * Auth/Cert (Routine) Specialty Diagnoses / Procedures 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 * Gastritis ([facility]) * Gas and Bloating ([facility]) * Cirrhosis ([facility]) documented in this encounter Medications at Time [...] as needed for Nausea. 02/01/2023 IRON PS [id number] C ACID ORAL Take by mouth. multivitamin [...] at 10/13/2024 6:05 PM CDT * Mariann Sepulveda, RT - 10/13/2024 10:36 AM CDT IMAGING SERVICES- CONTRAST, MEDICATION and FLUSH PROTOCOL [facility] Enter the protocol in the patient's electronic [...] (ISOVUE-300) - Routine exams: 1mL per pound Infant and Pediatric- Head / Face: 1mL per [...] if tolerated CT CYSTOGRAM Iopamidol 61% Injection ([id number]): 25mL Dilute into 500mL bag of sterile NS administer up to 300mL retrograde via urinary catheter DIAGNOSTIC RADIOLOGY Enter the protocol in the patient's electronic health record using Mobincuberase: ADULTS PROCEDURE DOSAGE ARTHROGRAMS Plain ISOVUE 300 [...] 90g/Varibar thin 74g/ Varibar honey 125mL/ Varibar [place] 120mL HYSTEROSALPINGOGRAM ISOVUE 300 30ml IVP'S ISOVUE [...] 350 50mL Modified Barium Swallow >1 Varibar Pifk10t: 1 to 2 Varibar Thin74 Paste 90g (Video Swallow with Speech) <2 Varibar Hjqw38c, [id number], Honey 125mL, Paste 90g IVP Isovue 300 [...] Medicine Procedure Manual, Division of Nuclear Medicine, [facility] of Radiology; [email or web address] [place] Consensus Guidelines for Administered Radiopharmaceutical Activities in Children andAdolescents; http://interactive.snm.org/docs/Pediatric dose consensus guidelines Final 2010.pdf ACR-SNM-SPR Practice guideline for the performance of Scintigraphy for inflammation and infection; www/acr.org.guidelines. Revised 2009 9.1 Jose PAULINE, Frederic WC, Barbara RD. Nuclear Medicine Diagnosis and Therapy. [employer]1996. Chapter 37, page 930, Table 1. [...] to bathroom, stool is soft but formed documented in this encounter Miscellaneous Notes * ED Bed Hold Comment Note - Sanjana Sepulveda RN - 10/13/2024 8:38 AM CDT Bed: E Expected date: 10/13/24 Expected time: 8:34 AM Means of arrival: Comments: triage documented in this encounter Plan of Treatment Scheduled Orders Name Type Priority Associated Diagnoses Orde r Schedule CYTOLOGY, NON GYNE Pathology Pathology ONE TI ME for 1 Occurrences starting 10/13/2024 until 10/13/2024 Scheduled Referrals Name Type Priority Associated Diagnoses [...] the proposed needle course. A 10-cm 5 Lithuanian Yueh centesis catheter was inserted. 1750 ml of [...] the proposed needle course. A 10-cm 5 [place]ian Yueh centesis catheter was inserted. 1750 ml of [...] FLD 0.8 g/dL 10/13/2024 2:14 PM CDT [facility] Body fluid ENTIRE SEROUS MEMBRANE OF PERITONEUM / Unknown Collection / Unknown 10/13/2024 12:51 PM CDT 10/13/2024 1:17 PM CDT [facility] - 10/13/2024 2:14 PM CDT Interpretive Criteria: Transudate: Serum-Ascites gradient >1.1 g/dL Exudate: Serum-Ascites gradient <1.1 g/dL The reference range and other method performance specifications are unavailable for this body fluid. Comparison of this result with the concentration in the blood, serum or plasma is recommended. Result [facility] Colt Tavera MD BODY FLUIDS AND STOOLS Final Result [facility] # [id number] [address] [place] [address] * GLUCOSE, BODY FLUID (10/13/2024 12:51 PM CDT) GLUCOSE, FLD 107 mg/dL 10/13/2024 2:05 PM CDT [facility] Body fluid ENTIRE SEROUS MEMBRANE OF PERITONEUM / Unknown Collection / Unknown 10/13/2024 12:51 PM CDT 10/13/2024 1:17 PM CDT [facility] - 10/13/2024 2:05 PM CDT Interpretive Criteria: Transudate: Fluid/Serum Ratio >0.5 Exudate: Fluid/Serum Ratio <0.5 or Fluid Glucose <60 mg/dL The reference range and other method performance specifications are unavailable for this body fluid. Comparison of this result with the concentration in the blood, serum or plasma is recommended. Colt Tavera MD BODY FLUIDS AND STOOLS Final Result Performing Organization Address [facility] Co de Phone Number [facility] CLIA # [id number] [facility] [address] * PROTEIN, BODY FLUID (10/13/2024 12:51 PM CDT) PROTEIN, FLD 0.9 g/dL 10/13/2024 2:14 PM CDT [facility] Body fluid ENTIRE SEROUS MEMBRANE OF PERITONEUM / Unknown Collection / Unknown 10/13/2024 12:51 PM CDT 10/13/2024 1:17 PM CDT [facility] - 10/13/2024 2:14 PM CDT Interpretive Criteria: Transudate: <2.0 g/dL Exudate: >2.0 g/dL The reference range and other method performance specifications are unavailable for this body fluid. Comparison of this result with the concentration in the blood, serum, or plasma is recommended. Colt Tavera MD BODY FLUIDS AND STOOLS Final Result Performing Organization Address [facility] Co de Phone Number [facility] CLIA # [id number] [address] [address] * LACTATE DEHYDROGENASE, BODY FLUID (10/13/2024 12:51 PM CDT) LD, FLD 36 U/L 10/13/2024 2:05 PM CDT [facility] Body fluid ENTIRE SEROUS MEMBRANE OF PERITONEUM / Unknown Collection / Unknown 10/13/2024 12:51 PM CDT 10/13/2024 1:17 PM CDT [facility] - 10/13/2024 2:05 PM CDT [...] MD BODY FLUIDS AND STOOLS Final Result [facility] CLIA # [id number] [facility] [address] [place] [address] * CELL COUNT WITH DIFFERENTIAL, BODY FLUID (10/13/2024 12:51 PM CDT) APPEARANCE, BODY FLUID Clear 10/13/2024 1:45 PM CDT [facility] COLOR, FLD Yellow 10/13/2024 1:45 PM CDT [facility] TOTAL NUCLEATED CELLS, FLD (AUTO) 122 No Ref Range Estab /ul 10/13/2024 1:45 PM CDT [facility] TOTAL RBC'S, FLD (AUTO) <3,000 No Ref Range Estab /ul 10/13/2024 1:45 PM CDT [facility] NEUTROPHILS, FLD 1 No Ref Range Estab % 10/13/2024 1:45 PM CDT [facility] LYMPHOCYTE, FLD 67 No Ref Range Estab % 10/13/2024 1:45 PM CDT [facility] MONOCYTE/MACROPH AGE, FLD 24 No Ref Range Estab % 10/13/2024 1:45 PM CDT [facility] MESOTHELIAL FLD 8 No Ref Range Estab % 10/13/2024 1:45 PM CDT [facility] Body fluid ENTIRE SEROUS MEMBRANE OF PERITONEUM / Unknown Collection / Unknown 10/13/2024 12:51 PM CDT 10/13/2024 1:09 PM CDT Colt Tavera MD BODY FLUIDS AND STOOLS Final Result Performing Organization Address [facility] Co de Phone Number [facility] CLIA # [id number] [facility] [address] * PTT (10/13/2024 12:08 PM CDT) PTT 30.7 24.8 - 37.2 seconds 10/13/2024 12:23 PM CDT [facility] Blood Venipuncture / Unknown 10/13/2024 12:08 PM CDT 10/13/2024 12:10 PM CDT [facility] - 10/13/2024 12:23 PM CDT Therapeutic Range: Hi-level PE/DVT heparin protocol 80.1 - 95.0 sec Lo-level PE/DVT heparin protocol 70.1 - 85.0 sec Cardiac Heparin Protocol 70.1 - 100.0 sec Colt Tavera MD HEMATOLOGY ORDERABLES Final Result Performing Organization Address [facility] Co de Phone Number [facility] CLIA # [id number] [facility] [address] * (ABNORMAL) PROTIME-INR (10/13/2024 12:08 PM CDT) PROTIME 15.6(H) 12.7 - 14.9 Seconds 10/13/2024 12:23 PM CDT [facility] [employer] [facility] INR 1.2 0.8 - 1.2 10/13/2024 12:23 PM CDT [facility] Blood Venipuncture / Unknown 10/13/2024 12:08 PM CDT 10/13/2024 12:10 PM CDT [facility] - 10/13/2024 12:23 PM CDT Expected Values for INR: DVT/PE Goal INR 2.5; range 2.0 - 3.0 Valve Replacement Tissue Goal INR 2.5; range 2.0 - 3.0 Valve Replacement Mechanical Goal INR 3.0; range 2.5 - 3.5 POST-DE Goal INR 2.5; range 2.0 - 3.0 or Goal INR 3.0; range 2.5 - 3.5 Atrial Fibrillation Goal INR 2.5; range 2.0 - 3.0 Ischemic Stroke Goal INR 2.5; range 2.0 - 3.0 Colt Tavera MD HEMATOLOGY ORDERABLES Final Result [facility] LABORATORY SERVICES [facility] # [id number] [facility] [address] * CT ABDOMEN PELVIS W CONTRAST (10/13/2024 [...] gastritis. 4. Small nonobstructing left renal stone. Colt Tavera MD CT ORDERABLES Final Result * GI PATHOGEN PCR PANEL (10/13/2024 9:10 AM CDT) Pathologist [facility] GI Pathogen PCR panel NOT DETECTED No nucleic acids detected. 10/13/2024 11:33 AM CDT [facility] [employer] [facility] Stool STOOL SPECIMEN / Unknown Collection / Unknown 10/13/2024 9:10 AM CDT 10/13/2024 10:06 AM CDT Narrative [facility] LAB[facility] - 10/13/2024 11:33 AM CDT The Film [...] MD MICROBIOLOGY - GENERAL ORDERABLES Final Result Performing Organization Address City/[facility]/ZIP Co de Phone Number [id number] [address] [place] [id number] * LACTIC ACID (10/13/2024 9:09 AM CDT) LACTIC ACID 1.1 <=2.0 mmol/L 10/13/2024 9:34 AM CDT [facility] Blood Venipuncture / Unknown 10/13/2024 9:09 AM CDT 10/13/2024 9:11 AM CDT Colt Tavera MD CHEMISTRY ORDERABLES F inal Result Performing Organization Address City/[facility]/ZIP Co de Phone Number [facility] CLIA # [id number] [facility] [address] * LIPASE (10/13/2024 9:09 AM CDT) LIPASE 32 13 - 60 U/L 10/13/2024 9:47 AM CDT [facility] Blood Venipuncture / Unknown 10/13/2024 9:09 AM CDT 10/13/2024 9:13 AM CDT Colt Tavera MD CHEMISTRY ORDERABLES F inal Result [facility] # [id number] [address] [facility] [place] [address] * (ABNORMAL) COMPREHENSIVE METABOLIC PANEL (10/13/2024 9:09 AM CDT) [facility] SODIUM 142 136 - 145 mmol/L 10/13/2024 9:47 AM T [facility] POTASSIUM 3.6 3.5 - 5.1 mmol/L 10/13/2024 9:47 AM T [facility] CHLORIDE 106 98 - 107 mmol/L 10/13/2024 9:47 AM [facility] CO2 24 22 - 29 mmol/L 10/13/2024 9:47 AM [facility] CALCIUM 8.9 8.8 - 10.2 mg/dL 10/13/2024 9:47 AM [facility] BUN 8 8 - 23 mg/dL 10/13/2024 9:47 AM [facility] CREATININE 0.86 0.51 - 0.95 mg/dL 10/13/2024 9:47 AM [facility] GLUCOSE 106(H) 74 - 99 mg/dL 10/13/2024 9:47 AM [facility] TOTAL PROTEIN 6.3(L) 6.4 - 8.3 g/dL 10/13/2024 9:47 AM [facility] ALBUMIN 3.6 3.5 - 5.2 g/dL 10/13/2024 9:47 AM [facility] BILIRUBIN TOTAL 0.3 0.0 - 1.0 mg/dL 10/13/2024 9:47 AM [facility] ALKALINE PHOSPHATASE 76 35 - 104 U/L 10/13/2024 9:47 AM [facility] AST 29 10 - 35 U/L 10/13/2024 9:47 AM CDT [facility] ALT 23 <=35 U/L 10/13/2024 9:47 AM T [facility] GFR >60 >=60 mL/min/1.7 3 sq meter 10/13/2024 9:47 AM T [facility] Comment:eGFR calculated with 2020 CKD-EPI equation. Vegetarian diet, extremely high or low muscle mass, and may affect results. Cystatin C with Glomerular Filtration Rate is a suitable alternative for these patients. ANION GAP 12 9 - 20 mmol/L 10/13/2024 9:47 AM T [facility] Blood Venipuncture / Unknown 10/13/2024 9:09 AM CDT 10/13/2024 9:13 AM CDT Colt Tavera MD CHEMISTRY ORDERABLES F inal Result [facility] CLIA # [id number] [address] [place] [address] * (ABNORMAL) CBC WITH DIFFERENTIAL (10/13/2024 9:09 AM CDT) WBC 4.6(L) 4.8 - 10.8 K/uL 10/13/2024 9:20 AM [facility] RBC 4.10(L) 4.20 - 5.40 M/uL 10/13/2024 9:20 AM T [facility] HEMOGLOBIN 10.9(L) 12.0 - 16.0 g/dL 10/13/2024 9:20 AM [facility] HEMATOCRIT 33.3(L) 36.0 - 46.0 % 10/13/2024 9:20 AM [facility] MCV 81.2(L) 84.0 - 103.0 fL 10/13/2024 9:20 AM [facility] MCH 26.6(L) 27.0 - 34.0 pg 10/13/2024 9:20 AM [facility] MCHC 32.7 30.0 - 35.0 g/dL 10/13/2024 9:20 AM [facility] PLATELETS 217 140 - 440 K/uL 10/13/2024 9:20 AM [facility] MPV 11.3 8.9 - 12.8 fL 10/13/2024 9:20 AM [facility] RDW 18.9(H) 11.0 - 14.5 % 10/13/2024 9:20 AM [facility] RDW-STDEV 55.5(H) 37.0 - 54.0 fL 10/13/2024 9:20 AM [facility] NEUTROPHILS 65 42 - 75 % 10/13/2024 9:20 AM [facility] LYMPHOCYTES 20(L) 24 - 44 % 10/13/2024 9:20 AM [facility] MONOCYTES 15(H) 2 - 10 % 10/13/2024 9:20 AM [facility] EOSINOPHILS 0 0 - 7 % 10/13/2024 9:20 AM [facility] BASOPHILS 1 0 - 1 % 10/13/2024 9:20 AM [facility] IMMATURE GRANULOCYTES 0 0 - 2 % 10/13/2024 9:20 AM [facility] NEUTROPHIL ABSOLUTE 2.97 2.00 - 8.00 K/uL 10/13/2024 9:20 AM [facility] LYMPHOCYTE ABSOLUTE 0.91(L) 1.20 - 4.00 K/uL 10/13/2024 9:20 AM [facility] MONOCYTE ABSOLUTE 0.67(H) 0.10 - 0.60 K/uL 10/13/2024 9:20 AM [facility] EOSINOPHIL ABSOLUTE 0.01 0.00 - 0.70 K/uL 10/13/2024 9:20 AM [facility] BASOPHILS ABSOLUTE 0.03 0.00 - 0.20 K/uL 10/13/2024 9:20 AM CDT [facility] IMMATURE GRANULOCYTES ABSOLUTE 0.02 0.00 - 0.10 K/uL 10/13/2024 9:20 AM CDT [facility] SMEAR REVIEWED: NN - No Action Needed 10/13/2024 9:20 AM CDT [facility] Blood Venipuncture / Unknown 10/13/2024 9:09 AM CDT 10/13/2024 9:11 AM CDT Colt Tavera MD HEMATOLOGY ORDERABLES Final Result [facility] CLIA # [id number] [facility] [address] documented in this encounter Visit Diagnoses Diagnosis [...] Routine 1036 (Contrast Given - Provider: Mariann Sepulveda RT) Continuous Medication Order 10/11/2024 10/12/2024 10/13/2024 [...] documented as of this encounter Care Teams Leasing Associate Relationship Specialty Start Date End Date Aguila Castro MD [address] [place] [phone] PCP - General Family Practice 05/26/21 documented as of this encounter
--- OUTSIDE RECORDS SUMMARY | 2024-10-14 10:31 | XMS_ITS | Encounter Summary ---
Author Organization [facility] Address [address] [place] [address] Care Team Providers Care Dyno Technician Name Role Phone Unavailable Primary Care Provider Unavailabl e Encounter Details Date Type Department Care Team (Latest Contact Info) Description 05/26/2006 Outpatient Historical [facility] Orthopedics- 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
--- OUTSIDE RECORDS SUMMARY | 2024-10-14 10:31 | XMS_ITS | Encounter Summary ---
Author Organization [facility] Address [address] [place] [address] Care Team Providers Care Sign Installer Name Role Phone Aguila Castro MD Primary Care Provider + Encounter Details Date Type Department Care Team (Latest Contact Info) Description 04/14/[address] 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 Gender Identity Not on file Sexual Orientation Not on file documented as of this encounter Plan of Treatment Not on file documented as of this encounter Procedures Procedure Name Priority Date/Time Associated Diagnosis Comments MICROALBUMIN/CREATININ E RATIO, RANDOM UR Routine 04/14/2007 3:34 PM GAME B[employer] F[employer]ER CBC WITH DIFFERENTIAL Routine 04/14/2007 3:34 PM GAME B[employer] F[employer]ER URINALYSIS W/REFLEX MICROSCOPIC Routine 04/14/2007 3:34 PM GAME BIRD FARMER T3 FREE Routine 04/14/2007 3:34 PM GAME BIRD FARMER TSH Routine 04/14/2007 3:34 PM GAME BIRD FARMER T4 FREE Routine 04/14/2007 3:34 PM GAME B[employer] F[employer]ER COMPREHENSIVE METABOLIC PANEL Routine 04/14/2007 3:34 PM GAME BIRD FARMER documented in this encounter Results * (ABNORMAL) COMPREHENSIVE METABOLIC PANEL (04/14/2007 3:34 PM GAME BIRD FARMER) ALKALINE PHOSPHATASE 54 35 - 104 U/L [...] and non- Americans is available on the [facility] Intranet at: [email or web address] Select: Lab Policies and Procedures Select: Reference Ranges - GFR Blood specimen (specimen) 04/14/2007 3:34 PM GAME BIRD FARMER 04/14/2007 8:28 PM GAME B[employer] FARMER Gilberto Leung MD CHEMISTRY ORDERABLES Edited [facility] [address] [place] [address] * (ABNORMAL) URINALYSIS (04/14/2007 3:34 PM GAME BIRD FARMER) COLOR UA Pale Yellow [facility] NITRITE UA Negative Negative [facility] UROBILINOGEN UA <1 <=1 mg/dL [facility] EPITHELIAL CELLS, URINE 5-10 /HPF [facility] PH UA 6.0 5.0 - 8.0 [facility] KETONES UA Negative Negative [facility] WBC UA 1 0 - 5 /HPF [facility] CLARITY UA Slt. Cloudy(A) Clear [facility] PROTEIN UA Negative Negative [facility] BILIRUBIN UA Negative Negative [facility] LEUKOCYTE ESTERASE UA Negative Negative [facility] BACTERIA UA 1+(A) None Seen /HPF [facility] SPECIFIC GRAVITY UA 1.009 1.001 - 1.035 [facility] BLOOD UA Negative Negative [facility] GLUCOSE UA Negative Negative [facility] Urine, clean catch 04/14/2007 3:34 PM GAME B[employer] F[employer]ER 04/14/2007 8:28 PM G[employer]ARMER Gilberto Leung MD URINE ORDERABLES Final Resul t [facility] [address] [place] [address] * TSH (04/14/2007 3:34 PM GAME BIRD FARMER) TSH 3.89 0.27 - 4.20 uU/mL [facility] Blood specimen (specimen) 04/14/2007 3:34 PM GAME BIRD FARMER 04/14/2007 8:28 PM GAME B[employer] FARMER Gilberto Leung MD CHEMISTRY ORDERABLES Final R esult Performing Organization Address City/[facility] Co de Phone Number [facility] [address] [place] [address] * T4 FREE (04/14/2007 3:34 PM GAME BIRD FARMER) T4 FREE 1.1 0.9 - 1.7 ng/dL [facility] Blood specimen (specimen) 04/14/2007 3:34 PM GAME BIRD FARMER 04/14/2007 8:28 PM GAME BIRD FARMER Gilberto Leung MD CHEMISTRY ORDERABLES Final R esult Performing Organization Address [facility] de Phone Number [facility] [address] [place] [address] * T3 FREE (04/14/2007 3:34 PM GAME BIRD FARMER) T3 FREE 3.4 2.5 - 4.4 pg/mL [facility] Blood specimen (specimen) 04/14/2007 3:34 PM GAME BIRD FARMER 04/14/2007 8:28 PM G[employer] B[employer] FARMER Gilberto Leung MD CHEMISTRY ORDERABLES Final R esult Performing Organization Address [facility] Co de Phone Number [facility] [address] [place] [address] * MICROALBUMIN/CREATININE RATIO, RANDOM UR (04/14/2007 3:34 PM GAME BIRD FARMER) MICROALBUMIN/C REAT RATIO, UR <5 0 - 29 mg/g creatinine [facility] Urine specimen (specimen) 04/14/2007 3:34 PM GAME BIRD FARMER 04/14/2007 8:28 PM GAME BIRD FARMER Gilberto Leung MD URINE ORDERABLES Final Resul t [facility] [address] [place] [address] * (ABNORMAL) CBC WITH DIFFERENTIAL (04/14/2007 3:34 PM GAME BIRD FARMER) MCHC 33.6 31.5 - 35.5 % [facility] [...] LAB EOSINOPHILS 0 0 - 7 % [facility] EOSINOPHIL ABSOLUTE 0.03 0.00 - 0.70 K/uL [facility] LYMPHOCYTES 22 16 - 45 % [facility] LYMPHOCYTE ABSOLUTE 2.69 0.70 - 4.50 [...] LAB NEUTROPHILS 66 45 - 70 % [facility] NEUTROPHIL ABSOLUTE 8.05(H) 1.90 - 7.00 K/uL [facility] Blood specimen (specimen) 04/14/2007 3:34 PM GAME BIRD FARMER 04/14/2007 8:28 PM G[employer] BIRD FARMER Gilberto Leung MD HEMATOLOGY ORDERABLES Edited INTERFACE SYSTEM Refer to clinic/hospital department [facility] [address] [address] documented in this encounter Visit Diagnoses Diagnosis Elevated blood pressure reading without diagnosis of hypertension documented in this encounter Additional Health Concerns Infection Onset Date Last Indicated Resolved Time R/O GI Pathogen 10/06/2024 10/07/2024 10/07/2024 1 1:33 PM CDT C Diff 10/07/2024 10/07/2024 R/O GI Pathogen 10/13/2024 10/13/2024 10/13/2024 1 1:33 AM CDT documented as of this encounter Care Teams Sign Installer Relationship Specialty Start Date End Date Aguila Castro MD [address] [phone] PCP - General Family Practice 05/26/21 documented as of this encounter
--- OUTSIDE RECORDS SUMMARY | 2024-10-14 10:31 | XMS_ITS | Encounter Summary ---
Author Organization [facility] Address 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 Gender Identity Not on file Sexual Orientation Not on file documented as of this encounter Plan of Treatment Not on file documented as of this encounter Procedures Procedure Name Priority Date/Time Associated Diagnosis Comments COMPREHENSIVE METABOLIC PANEL Routine 10/06/2024 3:11 PM CDT documented in this encounter Results * COMPREHENSIVE METABOLIC PANEL (10/06/2024 3:11 PM CDT) Blood us Abstract Provider CHEMISTRY ORDERABLES Final Res ult documented in this encounter Visit Diagnoses Not on filedocumented in this encounter Additional Health Concerns Infection Onset Date Last Indicated Resolved Time C Diff 10/07/2024 10/07/2024 documented as of this encounter Care Teams Engineer/Conductor Relationship Specialty Start Date End Date Aguila Castro MD [address] [phone] PCP - General Family Practice 05/26/21 documented as of this encounter
--- OUTSIDE RECORDS SUMMARY | 2024-10-14 10:31 | XMS_ITS | Encounter Summary ---
Author Organization [facility] Address [address] [place] [address] Care Team Providers Care Street Car Inspector Name Role Phone Unavailable Primary Care Provider Unavailabl e Encounter Details Date Type Department Care Team (Latest Contact Info) Description 02/10/2006 Outpatient Historical [facility] Orthoped[facility]- [address] [place] 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
--- OUTSIDE RECORDS SUMMARY | 2024-10-14 10:31 | XMS_ITS | Encounter Summary ---
Author Organization [facility] Address [address] [place] [address] Care Team Providers Care Studio Technician Video Operator Name Role Phone Unavailable Primary Care Provider Unavailabl e Encounter Details Date Type Department Care Team (Latest Contact Info) Description 12/31/2005 Outpatient Historical [facility] Orthopedics- [address] [place] 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
--- OUTSIDE RECORDS SUMMARY | 2024-10-14 10:31 | XMS_ITS | Encounter Summary ---
Author Organization [facility] Address [address] [place] [address] Care Team Providers Care Contract Runner Name Role Phone Unavailable Primary Care Provider Unavailabl e Encounter Details Date Type Department Care Team (Latest Contact Info) Description 03/24/2006 Outpatient Historical [facility] Orthopedics- [address] [place] [address] [place] [address] Donaldo Houston MD [address] [place] [phone] Sprain Cruciate Lig Knee (Primary Dx) Social History Tobacco Use Types Packs/Day Years Used Date Smoking Tobacco: Never Assessed Comments Unknown Sex and Gender Information Value Date Recorded Sex Assigned at Not on file Legal Sex Female 6:08 AM CRUISE GUIDE Gender Identity Not on file Sexual Orientation Not on file documented as of this encounter Plan of Treatment Not on file documented as of this encounter Visit Diagnoses Diagnosis Sprain cruciate lig knee- Primary Sprain of cruciate ligament of knee documented in this encounter
--- OUTSIDE RECORDS SUMMARY | 2024-10-14 10:31 | XMS_ITS | Patient Health Record ---
Author Organization [facility] Address [address] [place] [address] Care Team Providers Care Extermination Supervisor Name Role Phone Tawnya Lane DO Primary Care Provider Unavailab Anton Mckinley Unavailable [phone] Migration, Provider Unavailable Unavailable Elida James Unavailable [phone] Ai Benson Unavailable [phone] Janet, Erick Unavailable [phone] Allergies Allergen (clinical drug ingredient) Drug/Non Drug Allergy documented on EMR Reaction Allergy Type Onset Date Status Sulfur Rash Drug Allergy Active Results Component Value Reference Range Flag Notes Urine Drug Screen (cup read) - 33857 Reviewed date:07/18/2024 12:37:34 PM Interpretation: Performing Lab: Notes/Report: OPI + Urine Drug Screen (cup read) - 35443 Reviewed date:05/24/2024 04:13:33 PM Interpretation: Performing Lab: Notes/Report: OPI + Urine Drug Screen (cup read) - 75240 Reviewed date:07/25/2024 12:33:05 PM Interpretation: Performing Lab: Notes/Report: AMP - MARLENA - BUP - BZO - MDMA - OPI + PCP - OXY + MTD - MAMP - Urine Confirmation Panel (in strument) - [id number] Reviewed date:08/01/2024 02:51:22 PM Interpretation: Performing Lab: [...] the U.S. Food and Drug Administration. Urine Confirmation Panel (in strument) - 30076 Reviewed date:04/24/2024 10:44:16 AM Interpretation: Performing Lab: [...] the U.S. Food and Drug Administration. Urine Confirmation Panel (in strument) - 09405 Reviewed date:07/23/2024 03:07:09 PM Interpretation: Performing Lab: [...] Food and Drug Administration. Tox Results Reviewed date:08/01/2024 02:58:02 PM Interpretation: Performing Lab: Notes/Report: Tox Results Reviewed date:07/23/2024 02:59:35 PM Interpretation: Performing Lab: Notes/Report: Tox Results Reviewed date:04/24/2024 10:44:16 AM Interpretation: Performing Lab: Notes/Report: zzzUrine Drug Screen (confir mation by instrument) - [id number] Reviewed date:01/31/2024 04:56:57 PM Interpretation: Performing Lab: Notes/Report: Urine Drug Screen (cup read) - 39457 Reviewed date:09/27/2024 10:16:46 AM Interpretation: Performing Lab: Notes/Report: OPI + Fluoro Needle For Placement - Non-Spine 49768 Reviewed date:03/29/2024 02:42:29 PM Interpretation: Performing Lab: Notes/Report: Reason For Referral No Information Medications Medication [...] Status Risk Notes Problem Chronic pain syndrome (914052815) Chronic pain syndrome (G89.4) 06/13/20 24 Active confirmed Problem 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, 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) 08/04/19 Active confirmed Problem 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, lumbar region (M51.36) 08/04/19 Active confirmed Problem Abnormal gait (81102674) Unspecified abnormalities of gait and mobility (R26.9) 08/04/19 Active confirmed Problem Bilateral sacroiliitis (8197397758) Bilateral sacroiliitis (M46.1) Active confirmed Problem Sacroiliitis (65293777) Sacroiliitis (M46.1) Active confirmed Problem Abnormal gait (00090867) Abnormality of gait and mobility (R26.9) Active confirmed Problem Radiculopathy due to lumbar intervertebral disc disorder (917725288040010) 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 SI Joint w/ imaging geraldine dance (CT or fluoroscopy) - 57129 01/04/2024 01/04/2024 N/A Inj. SI Joint w/ imaging geraldine dance (CT or fluoroscopy) - 65416 03/29/2024 03/29/2024 N/A Inj. SI Joint w/ imaging geraldine dance (CT or fluoroscopy) - 70873 06/14/2024 06/14/2024 04-07 unav Inj. Trigger Points, 3 or mo re muscles - 08/22/2024 08/22/2024 N/A Encounters Encounter Location Date Provider Diagnosis [facility] [place] [address] [place] [address] 11/02/2023 Anton Dwyer [facility] [place] [address] [place] [address] 12/14/2023 Anton Dwyer [facility] [address] [facility] [address] 01/04/2024 Anton Dwyer Bilateral sacroiliitis M46.1 [facility] [place] [address] [place] [phone] 01/25/2024 Anton Millert Chronic pain syndrom e G89.4 ; Hip pain, left M25.552 ; Pain in right hip M25.551 ; Intervertebral disc disorder with radiculopathy of lumbar region M51.16 ; Abnormality of gait and mobility R26.9 and termite technician (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 of opiate analgesic Z79.891 [facility] [place] [address] [place] [address] 02/23/2024 Erick Janet Chronic pain syndrom e G89.4 ; Other intervertebral disc degeneration, thoracic region M51.34 ; Degeneration of intervertebral disc of lumbar region with discogenic back pain M51.360 ; Cyst of kidney, acquired N28.1 and alf (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 of opiate analgesic Z79.891 [facility] [address] [place] [address] 03/29/2024 Anton Dwyer Sacroiliitis M46.1 [facility] [place] [address] [place] [address] 04/19/2024 Ai Benson Chronic pain syndrom e G89.4 ; Other intervertebral disc degeneration, thoracic region M51.34 ; Degeneration of intervertebral disc of lumbar region with discogenic back pain M51.360 ; Cyst of kidney, acquired N28.1 and alf (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 of opiate analgesic Z79.891 [facility] [place] [address] [place] [address] 05/24/2024 Ai Benson Chronic pain syndrom e G89.4 ; Other intervertebral disc degeneration, thoracic region M51.34 ; Degeneration of intervertebral disc of lumbar region with discogenic back pain M51.360 ; Cyst of kidney, acquired N28.1 and termite technician (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 of opiate analgesic Z79.891 [facility] [address] [place] [address] 06/14/2024 Anton Dwyer Hip pain, left M25.552 [facility] [address] [address] 07/18/2024 Anton Millert Chronic pain syndrom e G89.4 ; Other intervertebral disc degeneration, thoracic region M51.34 ; Degeneration of intervertebral disc of lumbar region with discogenic back pain M51.360 ; Muscle pain, myofascial M79.18 ; Cyst of kidney, acquired N28.1 and alf (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 of opiate analgesic Z79.891 [facility] [address] [address] 07/25/2024 Anton Dwyer Chronic pain syndrom e G89.4 ; Other intervertebral disc degeneration, thoracic region M51.34 ; Degeneration of intervertebral disc of lumbar region with discogenic back pain M51.360 ; Cyst of kidney, acquired N28.1 ; termite technician (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 of opiate analgesic Z79.891 and Muscle pain, myofascial M79.18 [facility] [address] [address] 08/22/2024 Anton Andersonfft Chronic pain syndrom e G89.4 ; Other intervertebral disc degeneration, thoracic region M51.34 ; Degeneration of intervertebral disc of lumbar region with discogenic back pain M51.360 ; Muscle pain, myofascial M79.18 ; Cyst of kidney, acquired N28.1 and alf (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 of opiate analgesic Z79.891 [facility] [address] [address] 09/27/2024 iA Benson Chronic pain syndrom e G89.4 ; Other intervertebral disc degeneration, thoracic region M51.34 ; Degeneration of intervertebral disc of lumbar region with discogenic back pain M51.360 ; Cyst of kidney, acquired N28.1 and termite technician (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 of opiate analgesic Z79.891 [facility] 0 0 12/17/2023 Provider Migration [facility] 0 0 12/18/2023 Provider Migration [facility] [place] [address] [place] [facility] [place] [address] 02/13/2024 Anton Dwyer [facility] [address] [place] [facility] [place] [address] 02/13/2024 Anton Dwyer [facility] [address] [facility] [place] [address] 02/23/2024 Anton Dwyer Chronic pain syndrom e G89.4 [facility] [address] [place] [facility] [place] [address] 02/23/2024 Erick Gonzales [facility] [address] [place] [facility] [place] [address] 02/24/2024 Anton Dwyer [facility] [address] [place] [address] 03/07/2024 Anton Dwyer Chronic pain syndrom e G89.4 [facility] [address] [place] [facility] [place] [address] 04/19/2024 Elida Esparza-Pric e [facility] [address] [place] [facility] [place] [address] 05/24/2024 Anton Dwyer [facility] [address] [place] [facility] [place] [address] 09/05/2024 Anton Dwyer Chronic pain syndrom e G89.4 [facility] [address] [place] [place] [address] 09/27/2024 Anton Dwyer Other intervertebral disc degeneration, [...] effects are noted. Last UDS and AR TRAVEL DIRECTOR reviewed today. Patient is advised that best [...] effects are noted. Last UDS and AR TRAVEL DIRECTOR reviewed today. Patient is advised that best [...] effects are noted. Last UDS and AR TRAVEL DIRECTOR reviewed today. Patient is advised that best [...] of kidney, acquired (ICD-10 - N28.1) 02/23/2024 alf (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 of opiate analgesic (ICD-10 - [...] gait and mobility (ICD-10 - R26.9) 01/25/2024 termite technician (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 of opiate analgesic (ICD-10 - Z79.891) 04/19/2024 termite technician (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 of opiate analgesic (ICD-10 - Z79.891) 05/24/2024 alf (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 of opiate analgesic (ICD-10 - Z79.891) 07/25/2024 termite technician (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 of opiate analgesic (ICD-10 - [...] alcohol. No bleeding points were noted. 07/18/2024 alf (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 of opiate analgesic (ICD-10 - Z79.891) 08/22/2024 Cyst of kidney, acquired (ICD-10 - N28.1) 09/27/2024 alf (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 of opiate analgesic (ICD-10 - Z79.891) 08/22/2024 termite technician (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 of opiate analgesic (ICD-10 - Z79.891) 07/25/2024 Muscle pain, myofascial (ICD-10 - M79.18) 01/25/2024 Other Jose Danielle am scribing for Anton Dwyer. Anton Danielle, personally performed the services described in this documentation , as scribed by Jose Gibson, and it is both accurate and complete. 07/18/2024 Other Awa Danielle NCMA, am scribing for Dr. Anton Dwyer. I, Dr. Anton Dwyer, personally performed the services described in this documentation, as scribed by JAMSHID Freedman , and it is both accurate and complete. Plan Of Treatment Future Test Test Name Order Date zzzUrine Drug Screen (confirmation by in strument) - [id number] 04/19/2024 Next Appt Details Provider Name:Anton Dwyer, 11/28/2024 10:20:00 AM, [address] [place], [address], Insurance Providers Payer Name Payer Address Payer Phone Subscriber Number Group Number Insured Name Patient Relationship to Insured Coverage Start Date Coverage End Date [employer] Medicare Replacement [address] [address] [place] [address] [phone] [id number] Arlene Quach Self - patient [place] the [place] [address] [place] [address] [id number] Arlene Quach Self - patient [place] the [place] [address] [address] [place] [address] [id number] Arlene Quach Self - patient is the [...]
--- OUTSIDE RECORDS SUMMARY | 2024-10-14 10:31 | XMS_ITS ---
Author Organization Unknown Vital Signs BpStanding BpSitting BpSupine Date Temperature HeartRate Weight Hei ght Spo2 Respiration Bmi HeadCircumference FieldCount TimeRecorded NeckCircumferen ce WaistCircumference Pulse 02/22 00:00 :00 5,9 1 10/11/2024 09:15:00 09/27 00:00 :00 140,0 5,9 20.6 7 3 10/11/2024 08:40:00 05/24 00:00 :00 154,0 5,9 22.7 4 3 10/11/2024 15:30:00 08/22 00:00 :00 149,0 5,9 22 3 10/11/2024 09:00:00 07/25 00:00 :00 149,0 5,9 22 3 10/11/2024 09:40:00 07/18 00:00 :00 154,0 5,9 22.7 4 3 10/11/2024 09:40:00
--- OUTSIDE RECORDS SUMMARY | 2024-10-14 10:31 | XMS_ITS | Encounter Summary ---
Author Organization [facility] Address [address] [place] [address] Care Team Providers Care Carton Forming Machine Adjuster Name Role Phone Unavailable Primary Care Provider Unavailabl e Encounter Details Date Type Department Care Team (Latest Contact Info) Description 12/09/2005 Outpatient Historical [facility] Orthopedics- [address] [place] 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
--- OUTSIDE RECORDS SUMMARY | 2024-10-14 10:31 | XMS_ITS | Encounter Summary ---
Author Organization [facility] Address [address] [place] [address] Care Team Providers Care J2Ee Architect Name Role Phone Unavailable Primary Care Provider Unavailabl e Encounter Details Date Type Department Care Team (Latest Contact Info) Description 09/30/2005 Outpatient Historical [facility] Orthopedics- [address] [place] [address] Donaldo Houston MD [address] [place] [phone] Sprain Cruciate Lig Knee (Primary Dx); Sprain Medial Collat Lig Social History Tobacco Use Types Packs/Day Years Used Date Smoking Tobacco: Never Assessed Comments Unknown Sex and Gender Information Value Date Recorded Sex Assigned at Not on file Legal Sex Female 6:08 AM POMPOM MAKER Gender Identity Not on file Sexual Orientation Not on file documented as of this encounter Plan of Treatment Not on file documented as of this encounter Visit Diagnoses Diagnosis Sprain cruciate lig knee- Primary Sprain of cruciate ligament of knee Sprain medial collat lig Sprain of medial collateral ligament of knee documented in this encounter
--- OUTSIDE RECORDS SUMMARY | 2024-10-14 10:31 | XMS_ITS | Encounter Summary ---
Author Organization [facility] Address [address] [place] [address] Care Team Providers Care Electronic Imaging System Operator Name Role Phone Aguila Castro MD Primary Care Provider + Encounter Details Date Type Department Care Team (Late st Contact Info) Description 10/09/2024 Abstract [facility] [address] [place] [address] Provider, Abstract NO ADDRESS ON [...] on file Legal Sex Female 5:31 AM GENERAL OPHTHALMOLOGIST Gender Identity Not on file Sexual Orientation Not on file documented as of this encounter Plan of Treatment Not on file documented as of this encounter Procedures Procedure Name Priority Date/Time Associated Diagnosis Comments PROTIME-INR Routine 10/06/2024 documented in this encounter Results * PROTIME-INR (10/06/2024) ABSTRACTED PROTIME 14.2 ABSTRACTED INR 1.03 Blood 10/06/2024 us Abstract Provider HEMATOLOGY ORDERABLES Final Re sult documented in this encounter Visit Diagnoses Not on filedocumented in this encounter Additional Health Concerns Infection Onset Date Last Indicated Resolved Time C Diff 10/07/2024 10/07/2024 documented as of this encounter Care Teams Electronic Imaging System Operator Relationship Specialty Start Date End Date Aguila Castro MD [address] [phone] PCP - General Family Practice 05/26/21 documented as of this encounter
--- OUTSIDE RECORDS SUMMARY | 2024-10-14 10:31 | XMS_ITS | Encounter Summary ---
Author Organization [facility] Address [address] [place] [address] Care Team Providers Care Dean Of Education Name Role Phone Aguila Castro MD Primary Care Provider + Encounter Details Date Type Department Care Team (Late st Contact Info) Description 10/13/2024 Results Follow-Up [facility] Emergency Department [address] [place] [address] Blanca Harris RN [address] [place] [address] CELL COUNT WITH DIFFERENTIAL, BODY FLUID, LACTATE DEHYDROGENASE, BODY FLUID, PROTEIN, BODY FLUID, Additional followed-up results: 2 Social History Tobacco Use Types Packs/Day Years [...] on file Legal Sex Female 5:31 AM TRAFFIC SIGNAL MECHANIC Gender Identity Not on file Sexual Orientation Not on file documented as of this encounter Miscellaneous Notes * Result Encounter Note - Blanca Harris RN - 10/13/2024 7:27 PM CDT PROTEIN, BODY FLUID ALBUMIN LEVEL, BODY FLUID LACTATE DEHYDROGENASE, BODY FLUID GLUCOSE, BODY FLUID CELL COUNT WITH DIFFERENTIAL, BODY FLUID All results in Epic for future reference documented in this encounter Plan of Treatment Not on file documented as of this encounter Visit Diagnoses Not on filedocumented in this encounter Additional Health Concerns Infection Onset Date Last Indicated Resolved Time C Diff 10/07/2024 10/07/2024 R/O GI Pathogen 10/13/2024 10/13/2024 10/13/2024 1 1:33 AM CDT documented as of this encounter Care Teams Dean Of Education Relationship Specialty Start Date End Date Aguila Castro MD [address] [place] [phone] PCP - General Family Practice 05/26/21 documented as of this encounter
--- OUTSIDE RECORDS SUMMARY | 2024-10-14 10:31 | XMS_ITS | Encounter Summary ---
Author Organization [facility] Address [address] [facility] Attn: [place] [address] Care Team Providers Care Diversity Intern Name Role Phone Aguila Castro MD Primary Care Provider + Encounter Details Date Type Department Care Team (Latest Contact Info) Description 10/13/2024 Travel Social History Tobacco Use Types Packs/Day Years [...] on file Legal Sex Female 5:31 AM MARINE TRANSPORT PROFESSIONALS Gender Identity Not on file Sexual Orientation [...] documented as of this encounter Care Teams Diversity Intern Relationship Specialty Start Date End Date Aguila Castro MD [address] [place] [phone] PCP - General Family Practice 05/26/21 documented as of this encounter
--- OUTSIDE RECORDS SUMMARY | 2024-10-14 10:31 | XMS_ITS | Encounter Summary ---
Author Organization [facility] Address [address] [place] [address] Care Team Providers Care Fishing Floats Assembler Name Role Phone Unavailable Primary Care Provider Unavailabl e Encounter Details Date Type Department Care Team (Latest Contact Info) Description 12/21/2005 Outpatient Historical [facility] [address] [address] 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
--- OUTSIDE RECORDS SUMMARY | 2024-10-14 10:31 | XMS_ITS | Encounter Summary ---
Author Organization [facility] Address [address] [place] [address] Care Team Providers Care Leach Runner Name Role Phone Aguila Castro MD Primary Care Provider + Encounter Details Date Type Department Care Team (Late st Contact Info) Description 10/09/2024 External Device Data [facility] ABSTRACTION Provider, Abstract NO ADDRESS ON FILE Social [...] on file Legal Sex Female 5:31 AM MALTSTER Gender Identity Not on file Sexual Orientation Not on file documented as of this encounter Plan of Treatment Not on file documented as of this encounter Visit Diagnoses Not on filedocumented in this encounter Additional Health Concerns Infection Onset Date Last Indicated Resolved Time C Diff 10/07/2024 10/07/2024 documented as of this encounter Care Teams Leach Runner Relationship Specialty Start Date End Date Aguila Castro MD [address] [facility] [address] [place] [address] PCP - General Family Practice 05/26/21 documented as of this encounter
--- OUTSIDE RECORDS SUMMARY | 2024-10-14 10:31 | XMS_ITS | Encounter Summary ---
Author Organization [facility] Address [address] [place] [address] Care Team Providers Care Rugby Union Footballer Name Role Phone Aguila Castro MD Primary Care Provider + Encounter Details Date Type Department Care Team (Late st Contact Info) Description 10/10/2024 External Device Data [facility] ABSTRACTION Provider, Abstract [...] on file Legal Sex Female 5:31 AM ART SALES CONSULTANT Gender Identity Not on file Sexual Orientation Not on file documented as of this encounter Plan of Treatment Not on file documented as of this encounter Visit Diagnoses Not on filedocumented in this encounter Additional Health Concerns Infection Onset Date Last Indicated Resolved Time C Diff 10/07/2024 10/07/2024 documented as of this encounter Care Teams Rugby Union Footballer Relationship Specialty Start Date End Date Aguila Castro MD [address] [facility] [address] [place] [address] PCP - General Family Practice 05/26/21 documented as of this encounter
--- OUTSIDE RECORDS SUMMARY | 2024-10-14 10:31 | XMS_ITS | Clinical Summary ---
Author Organization [facility] Address [address] [place] [address] Care Team Providers Care Contract Graphic Designer Name Role Phone Unavailable Primary Care Provider [...] on file Legal Sex Female 6:08 AM CHILD SUPPORT AGENT Gender Identity Not on file Sexual Orientation [...] age to complete this topic Insurance [id number] [id number] [employer] DUAL COMPLETE [facility] PPO [id number]
--- OUTSIDE RECORDS SUMMARY | 2024-10-14 10:31 | XMS_ITS | Encounter Summary ---
Author Organization [facility] Address [address] [place] [address] Care Team Providers Care Oracle Ebs Consultant Name Role Phone Unavailable Primary Care Provider Unavailabl e Encounter Details Date Type Department Care Team (Latest Contact Info) Description 08/06/1998 Outpatient Historical [facility] [place] [address] Bill Box, DDS NO ADDRESS ON FILE Dental caries (Primary Dx); Chronic gingivitis; Unspecified disorder of the teeth and supporting structures Social History Tobacco Use Types Packs/Day Years Used Date Smoking Tobacco: Never Assessed Comments Unknown Sex and Gender Information Value Date Recorded Sex Assigned at Not on file Legal Sex Female 6:08 AM STOCK DRIVER Gender Identity Not on file Sexual Orientation Not on file documented as of this encounter Plan of Treatment Not on file documented as of this encounter Visit Diagnoses Diagnosis Dental caries- Primary Chronic gingivitis Unspecified disorder of the teeth and supporting structures documented in this encounter
--- OUTSIDE RECORDS SUMMARY | 2024-10-14 10:31 | XMS_ITS | Encounter Summary ---
Author Organization [facility] Address [address] [place] [address] Care Team Providers Care Logistics Engineering Manager Name Role Phone Unavailable Primary Care Provider Unavailabl e Encounter Details Date Type Department Care Team (Latest Contact Info) Description 06/27/1998 Outpatient Historical [facility] Oral and Maxillo Surgery[address] [place] [address] Bill Box, DDS NO ADDRESS ON FILE Dental caries (Primary Dx); Unspecified disorder of the teeth and supporting structures; Periapical abscess Social History Tobacco Use Types Packs/Day Years Used Date Smoking Tobacco: Never Assessed Comments Unknown Sex and Gender Information Value Date Recorded Sex Assigned at Not on file Legal Sex Female 6:08 AM BUCKLE SEWER Gender Identity Not on file Sexual Orientation Not on file documented as of this encounter Plan of Treatment Not on file documented as of this encounter Visit Diagnoses Diagnosis Dental caries- Primary Unspecified disorder of the teeth and supporting structures Periapical abscess Periapical abscess without sinus documented in this encounter
--- OUTSIDE RECORDS SUMMARY | 2024-10-14 10:32 | XMS_ITS | Clinical Summary ---
Author Organization [facility] tone Address [address] [place] [address] Care Team Providers Care Sash Finisher Name Role Phone Aguila Castro MD Primary [...] for Nausea. 02/02/20 23 Active IRON PS [id number] LIC ACID ORAL Take by mouth. A ctive HYDROcodone-ac etaminophen (NORCO) 5-325 mg tablet Take by mouth. PRN 01/25/20 23 Active tiZANidine (ZANAFLEX) 4 mg Tablet 09/07/19 25 Active carvediloL (Coreg) 6.25 mg tablet Take 1 Tablet (6.25 mg) by mouth daily. 30 Tablet 3 10/04/19 25 Active sodium chloride 0.9 % Parenteral Solution with iron sucrose 100 mg iron/5 mL Solution Inject by intravenous injection one time only. Active pantoprazole (PROTONIX) 40 mg Tablet, Delayed Release (E.C.) Take 1 Tablet (40 mg) by mouth 2 times daily. 60 Tablet 10/09/19 25 Active vancomycin (VANCOCIN) 125 mg Capsule Take 1 Capsule (125 mg) by mouth every 6 hours for 12 days. 48 Capsule 10/09/19 25 025 Active pantoprazole (PROTONIX) 40 mg Tablet, Delayed Release (E.C.) Take 1 tablet by mouth twice daily 60 Tablet 2 07/12/19 25 025 Discontinued PEG-Electrolyt e Soln (NULYTELY) 420 g Recon [...] Active Problems Problem Noted Date Diagnosed Date Gastrointestinal hemorrhage 10/07/2024 Acute blood loss anemia 10/07/2024 Intractable nausea and vomiting 10/07/2024 Duodenitis 10/07/2024 Acute diarrhea 10/07/2024 Esophageal varices determined by endoscopy 10/07 Portal hypertensive gastropathy 10/07/2024 Angiodysplasia of stomach 10/07/2024 Liver cirrhosis 10/07/2024 Cigarette nicotine dependence without complicati on 10/07/2024 Laboratory test 10/07/2024 Acute gastrointestinal hemorrhage 10/07/2024 Cirrhosis of liver without ascites 06/29/2024 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 Esophageal varices without bleeding 05/08/2024 Overview (05/08/2024): Grade 1 Other dysphagia 05/08/2024 Gastritis determined by endoscopy 05/08/2024 Encounters Date Type Department Care Team Description 8:38 AM CDT - 5 1:27 PM CDT Emergency [facility] Emergency Department [address] [place] [phone] Colt Tavera MD Cirrhosis of liver with ascites, unspecified hepatic cirrhosis type (CMS/HCC) (Primary Dx); Abdominal distention; Gastritis without bleeding, unspecified chronicity, unspecified gastritis type Discharge Disposition: Home or Self Care 5 Results Follow-Up [facility] Emergency Department [address] [place] [phone] Blanca Harris RN CELL COUNT WITH DIFFERENTIAL, BODY FLUID, LACTATE DEHYDROGENASE, BODY FLUID, PROTEIN, BODY FLUID, Additional followed-up results: 2 5 Travel 5 External Device Data [facility] ABSTRACTION Provider, Abstract 5 External Device Data [facility] ABSTRACTION Provider, Abstract 5 Orders Only [id number] [place] [phone] Provider, Abstract [address] [phone] Provider, Abstract 5 9:52 AM CDT Anesthesia Event [facility] Endoscopy [address] [place] [phone] Rolando Sierra MD Le, Andrew N, ABRAHAM 5 9:20 AM CDT - 5 9:40 AM CDT Surgery [facility] Endoscopy [address] [place] [phone] Carmine Dubois MD ESOPHAGOGASTRODUODENOSCOPY 5 7:54 PM CDT - 5 3:59 PM CDT Hospital Encounter [facility] 3B Surgical [address] [place] [phone] Mohit Gomez MD Brooks, Cynthia J, DO Ovidio Palacios MD Gastrointestinal hemorrhage Discharge Disposition: Home or Self Care 5 8:20 AM CDT - 5 8:40 AM CDT Surgery [facility] Endoscopy [address] [place] [phone] Carmine Dickerson, DO ESOPHAGOGASTRODUODENOSCOPY 5 8:03 AM CDT Anesthesia Event [facility] Endoscopy [address] [place] [phone] Mayo Roa, 5 7:15 AM CDT - 5 9:15 AM CDT Hospital Encounter [facility] Endoscopy [address] [place] [phone] Carmine Dickerson, DO Discharge Disposition: Home or Self Care 5 External Device Data STL ABSTRACTION Provider, Abstract 5 External Device Data ST[place] ABSTRACTION Provider, Abstract 5 Telephone [facility] [address] [phone] Gera Resendez, DO Documentation Only 5 External Device Data ST[place] ABSTRACTION Provider, Abstract 5 External Device Data STL ABSTRACTION Provider, Abstract 5 Telephone [facility] Gastroenterology [address] [phone] Gera Resendez, DO Documentation Only 5 Telephone [facility] [address] [phone] Gera Resendez, DO Documentation 5 11:30 AM CDT Office [facility] [address] [phone] Gera Resendez, DO Cirrhosis of liver without ascites, unspecified hepatic cirrhosis type (CMS/HCC) (Primary Dx); Other dysphagia; Melena 5 External Device Data STL ABSTRACTION Provider, Abstract 5 External Device Data STL ABSTRACTION Provider, Abstract from Last 3 Months Immunizations Immunization Administration [...] on file 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 Gender Identity Not on file [...] Mass Index 21.12 10/13/2024 8:34 AM CDT Plan of Treatment Health Maintenance [...] Screening 10/04/2031 Medical Devices Explanted Type Area Edge Stainer Device Identifier Shelf Expiration Date Model / Serial / Lot 6.5 Cannulated Screw Explanted:Qty: 1 on 05/27/2021 at [facility] Right: Tibia 6.5 Cannulated Screw Explanted:Qty: 1 on 05/27/2021 at [facility] Right: Tibia 6.5 Cannulated Screw Explanted:Qty: 1 on 05/27/2021 at [facility] Right: Tibia 13mm Washer Explanted:Qty: 1 on 05/27/2021 at [facility] Right: Tibia Procedures Procedure Name Priority Date/Time Associated Diagnosis Comments US ASPIRATION ABDOMEN Stat 10/13/2024 1:00 PM CDT ALBUMIN LEVEL, BODY FLUID Stat 2024 12:51 PM CDT GLUCOSE, BODY FLUID Stat 10/13/2024 12:51 PM CDT PROTEIN, BODY FLUID Stat 10/13/2024 12:51 PM CDT LACTATE DEHYDROGENASE, BODY FLUID Stat 10/13/2024 12:51 PM CDT CELL COUNT WITH DIFFERENTIAL , BODY FLUID Stat 10/13/2024 12:51 PM CDT PTT Stat 10/13/2024 12:08 PM CDT PROTIME-INR Stat 10/13/2024 12:[address] ABDOMEN PELVIS W CONTRAST Stat 10:36 AM CDT GI PATHOGEN PCR PANEL Stat 10/13/2024 9:10 AM CDT LACTIC ACID Stat 10/13/2024 9:09 AM CDT LIPASE Stat 10/13/2024 9:09 AM CDT COMPREHENSIVE METABOLIC PANEL Stat 9:09 AM CDT CBC WITH DIFFERENTIAL Stat 10/13/2024 9:09 AM CDT TELEMETRY REPORT 10/09/2024 3:32 PM CDT UPPER [...] EKG 12-LEAD Routine 10/06/2024 10:19 PM CDT TYPE AND SCREEN Routine 10/06/2024 10:05 PM CDT PTT Stat 10/06/2024 10:05 PM CDT PROTIME-INR Stat 10/06/2024 10:05 PM CDT PHOSPHORUS Routine 10/06/2024 10:04 PM CDT MAGNESIUM LEVEL Routine 10/06/2024 10:04 PM CDT CBC WITH DIFFERENTIAL Stat 10/06/2024 10:04 PM CDT COMPREHENSIVE METABOLIC PANEL Stat 10:04 PM CDT COMPREHENSIVE METABOLIC PANEL Routine 3:11 PM CDT PROTIME-INR Routine 10/06/2024 COLONOSCOPY REPORT 10/03/2024 8:48 AM CDT PATHOLOGY Pathology 10/03/2024 8:38 AM CDT UPPER ENDOSCOPY REPORT 8:36 AM CDT MI COLONOSCOPY FLX DX W/MIRIAM J SPEC WHEN PFRMD 10/03/2024 8:20 AM CDT Melena Case Notes Procedure :DBL Special Notes: Trazodone,Hydrocodone,Varices Dx: Melena BT:NONE BT managed by: Diabetic: NO Diabetic/WT med:NONE LOC & REASON:Hosp-Medical BMI: 22.45 Last Procedure date & location: EGD,05/15,Hosp Referring Provider: Tawnya Lane DO GI Doc:Dr Carmine Dickerson Insurance: [employer] Medicare/Medicaid Last GI appt 08/28/24 [place] ESOPHAGOGASTRODUODENOSCOP Y TRANSORAL DIAGNOSTIC 10/03/2024 8:20 AM CDT Melena Case Notes Procedure :DBL Special Notes: Trazodone,Hydrocodone,Varices Dx: Melena BT:NONE BT managed by: Diabetic: NO Diabetic/WT med:NONE LOC & REASON:Hosp-Medical BMI: 22.45 Last Procedure date & location: EGD,05/15,Hosp Referring Provider: Tawnya Lane DO GI Doc:Dr Carmine Dickerson Insurance: [employer] Medicare/Medicaid Last GI appt 08/28/24 [place] ANESTHESIA AIRWAY Routine 10/03/2024 8:11 AM CDT from Last 3 Months Results * US ASPIRATION ABDOMEN (10/13/2024 1:00 [...] the proposed needle course. A 10-cm 5 Danish LoopMe centesis catheter was inserted. 1750 ml of [...] the proposed needle course. A 10-cm 5 Danish LoopMe centesis catheter was inserted. 1750 ml of a clear yellow ascites was then drained via suction. The centesis catheter was removed in its entirety, the chlorhexidine cleansed from the skin, and a sterile dressing placed. The patient tolerated the procedure without complications. Estimated Blood Loss: None us Colt Tavera MD ORDERABLES Final Result * CELL COUNT WITH DIFFERENTIAL, BODY FLUID (10/13/2024 12:51 PM CDT) APPEARANCE, BODY FLUID Clear 10/13/2024 1:45 PM CDT [facility] COLOR, FLD Yellow 10/13/2024 1:45 PM CDT [facility] TOTAL NUCLEATED CELLS, FLD (AUTO) 122 No Ref Range Estab /ul 10/13/2024 1:45 PM CDT [facility] TOTAL RBC'S, FLD (AUTO) <3,000 No Ref Range Estab /ul 10/13/2024 1:45 PM CDT [facility] NEUTROPHILS, FLD 1 No Ref Range Estab % 10/13/2024 1:45 PM CDT [facility] LYMPHOCYTE, FLD 67 No Ref Range Estab % 10/13/2024 1:45 PM CDT [facility] MONOCYTE/MACROPH AGE, FLD 24 No Ref Range Estab % 10/13/2024 1:45 PM CDT [facility] MESOTHELIAL FLD 8 No Ref Range Estab % 10/13/2024 1:45 PM CDT [facility] Body fluid ENTIRE SEROUS MEMBRANE OF PERITONEUM / Unknown Collection / Unknown 10/13/2024 12:51 PM CDT 10/13/2024 1:09 PM CDT Colt Tavera MD BODY FLUIDS AND STOOLS Final Result Performing Organization Address [facility] Co de Phone Number [facility] CLIA # [id number] [facility] [address] [place] [address] * PROTEIN, BODY FLUID (10/13/2024 12:51 PM CDT) PROTEIN, FLD 0.9 g/dL 10/13/2024 2:14 PM CDT [facility] Body fluid ENTIRE SEROUS MEMBRANE OF PERITONEUM / Unknown Collection / Unknown 10/13/2024 12:51 PM CDT 10/13/2024 1:17 PM CDT Narrative [facility] - 10/13/2024 2:14 PM CDT Interpretive Criteria: Transudate: <2.0 g/dL Exudate: >2.0 g/dL The reference range and other method performance specifications are unavailable for this body fluid. Comparison of this result with the concentration in the blood, serum, or plasma is recommended. us Colt Tavera MD BODY FLUIDS AND STOOLS Final Result Performing Organization Address [facility] Co de Phone Number [facility] CLIA # [id number] [facility] [address] [place] [address] * LACTATE DEHYDROGENASE, BODY FLUID (10/13/2024 12:51 PM CDT) LD, FLD 36 U/L 10/13/2024 2:05 PM CDT [facility] Body fluid ENTIRE SEROUS MEMBRANE OF PERITONEUM / Unknown Collection / Unknown 10/13/2024 12:51 PM CDT 10/13/2024 1:17 PM CDT [facility] - 10/13/2024 2:05 PM CDT Interpretive Criteria: Transudate: < 200 U/L or Fluid/Serum Ratio < 0.6 Exudate: > 200 U/L or Fluid/Serum Ratio > 0.6 The reference range and other method performance specifications are unavailable for this body fluid. Comparison of this result with the concentration in the blood, serum or plasma is recommended. Colt Tavera MD BODY FLUIDS AND STOOLS Final Result [facility] CLIA # [id number] [address] [place] [address] * GLUCOSE, BODY FLUID (10/13/2024 12:51 PM CDT) GLUCOSE, FLD 107 mg/dL 10/13/2024 2:05 PM CDT [facility] Body fluid ENTIRE SEROUS MEMBRANE OF PERITONEUM / Unknown Collection / Unknown 10/13/2024 12:51 PM CDT 10/13/2024 1:17 PM CDT [facility] - 10/13/2024 2:05 PM CDT Interpretive Criteria: Transudate: Fluid/Serum Ratio >0.5 Exudate: Fluid/Serum Ratio <0.5 or Fluid Glucose <60 mg/dL The reference range and other method performance specifications are unavailable for this body fluid. Comparison of this result with the concentration in the blood, serum or plasma is recommended. Colt Tavera MD BODY FLUIDS AND STOOLS Final Result Performing Organization Address [facility]/ZIP Co de Phone Number [facility] CLIA # [id number] [facility] [address] [place], [place] [address] * ALBUMIN LEVEL, BODY FLUID (10/13/2024 12:51 PM CDT) ALBUMIN, FLD 0.8 g/dL 10/13/2024 2:14 PM CDT [facility] Body fluid ENTIRE SEROUS MEMBRANE OF PERITONEUM / Unknown Collection / Unknown 10/13/2024 12:51 PM CDT 10/13/2024 1:17 PM CDT [facility] - 10/13/2024 2:14 PM CDT Interpretive Criteria: Transudate: Serum-Ascites gradient >1.1 g/dL Exudate: Serum-Ascites gradient <1.1 g/dL The reference range and other method performance specifications are unavailable for this body fluid. Comparison of this result with the concentration in the blood, serum or plasma is recommended. Colt Tavera MD BODY FLUIDS AND STOOLS Final Result Performing Organization Address [facility] de Phone Number [facility] CLIA # [id number] [facility] [address] * PTT (10/13/2024 12:08 PM CDT) Only the most recent of2 resultswithin the time period is included. PTT 30.7 24.8 - 37.2 seconds 10/13/2024 12:23 PM CDT [facility] Blood Venipuncture / Unknown 10/13/2024 12:08 PM CDT 10/13/2024 12:10 PM CDT Narrative [facility] - 10/13/2024 12:23 PM CDT Therapeutic Range: Hi-level PE/DVT heparin protocol 80.1 - 95.0 sec Lo-level PE/DVT heparin protocol 70.1 - 85.0 sec Cardiac Heparin Protocol 70.1 - 100.0 sec Colt Tavera MD HEMATOLOGY ORDERABLES Final Result [facility] CLIA # [id number] [address] [facility] [place] [address] * (ABNORMAL) PROTIME-INR (10/13/2024 12:08 PM CDT) Only the most recent of3 resultswithin the time period is included. PROTIME 15.6(H) 12.7 - 14.9 Seconds 10/13/2024 12:23 PM CDT [facility] INR 1.2 0.8 - 1.2 10/13/2024 12:23 PM CDT [facility] Blood Venipuncture / Unknown 10/13/2024 12:08 PM CDT 10/13/2024 12:10 PM CDT Narrative [facility] - 10/13/2024 12:23 PM CDT Expected Values for INR: DVT/PE Goal INR 2.5; range 2.0 - 3.0 Valve Replacement Tissue Goal INR 2.5; range 2.0 - 3.0 Valve Replacement Mechanical Goal INR 3.0; range 2.5 - 3.5 POST-PR Goal INR 2.5; range 2.0 - 3.0 or Goal INR 3.0; range 2.5 - 3.5 Atrial Fibrillation Goal INR 2.5; range 2.0 - 3.0 Ischemic Stroke Goal INR 2.5; range 2.0 - 3.0 Colt Tavera MD HEMATOLOGY ORDERABLES Final Result [facility] CLIA # [id number] [address] [facility] [place] [address] * CT ABDOMEN PELVIS W CONTRAST (10/13/2024 [...] PATHOGEN PCR PANEL (10/13/2024 9:10 AM CDT) Only the most recent of2 resultswithin the time period is included. GI Pathogen PCR panel NOT DETECTED No nucleic acids detected. 10/13/2024 11:33 AM CDT [facility] [employer] [facility] Stool STOOL SPECIMEN / Unknown Collection / Unknown 10/13/2024 9:10 AM CDT 10/13/2024 10:06 AM CDT Narrative [facility] [employer] [facility] - 10/13/2024 11:33 AM CDT The Film [...] MD MICROBIOLOGY - GENERAL ORDERABLES Final Result [facility] CLIA # [id number] [address] [address] [place] [address] * LACTIC ACID (10/13/2024 9:09 AM CDT) [facility] LACTIC ACID 1.1 <=2.0 mmol/L 10/13/2024 9:34 AM T [facility] Blood Venipuncture / Unknown 10/13/2024 9:09 AM CDT 10/13/2024 9:11 AM CDT Colt Tavera MD CHEMISTRY ORDERABLES F inal Result Performing Organization Address [facility] Co de Phone Number [facility] CLIA # [id number] [address] [address] * (ABNORMAL) CBC WITH DIFFERENTIAL (10/13/2024 9:09 AM CDT) Only the most recent of2 resultswithin the time period is included. [facility] WBC 4.6(L) 4.8 - 10.8 K/uL 10/13/2024 9:20 AM T [facility] RBC 4.10(L) 4.20 - 5.40 M/uL 10/13/2024 9:20 AM T [facility] HEMOGLOBIN 10.9(L) 12.0 - 16.0 g/dL 10/13/2024 9:20 AM T [facility] HEMATOCRIT 33.3(L) 36.0 - 46.0 % 10/13/2024 9:20 AM T [facility] MCV 81.2(L) 84.0 - 103.0 fL 10/13/2024 9:20 AM T [facility] MCH 26.6(L) 27.0 - 34.0 pg 10/13/2024 9:20 AM T [facility] MCHC 32.7 30.0 - 35.0 g/dL 10/13/2024 9:20 AM [facility] PLATELETS 217 140 - 440 K/uL 10/13/2024 9:20 AM [facility] MPV 11.3 8.9 - 12.8 fL 10/13/2024 9:20 AM [facility] RDW 18.9(H) 11.0 - 14.5 % 10/13/2024 9:20 AM [facility] RDW-STDEV 55.5(H) 37.0 - 54.0 fL 10/13/2024 9:20 AM [facility] NEUTROPHILS 65 42 - 75 % 10/13/2024 9:20 AM [facility] LYMPHOCYTES 20(L) 24 - 44 % 10/13/2024 9:20 AM [facility] MONOCYTES 15(H) 2 - 10 % 10/13/2024 9:20 AM [facility] EOSINOPHILS 0 0 - 7 % 10/13/2024 9:20 AM [facility] BASOPHILS 1 0 - 1 % 10/13/2024 9:20 AM [facility] IMMATURE GRANULOCYTES 0 0 - 2 % 10/13/2024 9:20 AM [facility] NEUTROPHIL ABSOLUTE 2.97 2.00 - 8.00 K/uL 10/13/2024 9:20 AM [facility] LYMPHOCYTE ABSOLUTE 0.91(L) 1.20 - 4.00 K/uL 10/13/2024 9:20 AM [facility] MONOCYTE ABSOLUTE 0.67(H) 0.10 - 0.60 K/uL 10/13/2024 9:20 AM [facility] EOSINOPHIL ABSOLUTE 0.01 0.00 - 0.70 K/uL 10/13/2024 9:20 AM [facility] BASOPHILS ABSOLUTE 0.03 0.00 - 0.20 K/uL 10/13/2024 9:20 AM [facility] IMMATURE GRANULOCYTES ABSOLUTE 0.02 0.00 - 0.10 K/uL 10/13/2024 9:20 AM CDT [facility] SMEAR REVIEWED: NN - No Action Needed 10/13/2024 9:20 AM CDT [facility] Blood Venipuncture / Unknown 10/13/2024 9:09 AM CDT 10/13/2024 9:11 AM CDT Colt Tavera MD HEMATOLOGY ORDERABLES Final Result Performing Organization Address [facility] Co de Phone Number [facility] CLIA # [id number] [address] [address] * LIPASE (10/13/2024 9:09 AM CDT) LIPASE 32 13 - 60 U/L 10/13/2024 9:47 AM CDT [facility] Blood Venipuncture / Unknown 10/13/2024 9:09 AM CDT 10/13/2024 9:13 AM CDT Colt Tavera MD CHEMISTRY ORDERABLES F inal Result Performing Organization Address [facility] Co de Phone Number [facility] CLIA # [id number] [address] [address] * (ABNORMAL) COMPREHENSIVE METABOLIC PANEL (10/13/2024 9:09 AM CDT) Only the most recent of3 resultswithin the time period is included. SODIUM 142 136 - 145 mmol/L 10/13/2024 9:47 AM CDT [facility] POTASSIUM 3.6 3.5 - 5.1 mmol/L 10/13/2024 9:47 AM CDT [facility] CHLORIDE 106 98 - 107 mmol/L 10/13/2024 9:47 AM [facility] CO2 24 22 - 29 mmol/L 10/13/2024 9:47 AM [facility] CALCIUM 8.9 8.8 - 10.2 mg/dL 10/13/2024 9:47 AM [facility] BUN 8 8 - 23 mg/dL 10/13/2024 9:47 AM [facility] CREATININE 0.86 0.51 - 0.95 mg/dL 10/13/2024 9:47 AM [facility] GLUCOSE 106(H) 74 - 99 mg/dL 10/13/2024 9:47 AM [facility] TOTAL PROTEIN 6.3(L) 6.4 - 8.3 g/dL 10/13/2024 9:47 AM [facility] ALBUMIN 3.6 3.5 - 5.2 g/dL 10/13/2024 9:47 AM [facility] BILIRUBIN TOTAL 0.3 0.0 - 1.0 mg/dL 10/13/2024 9:47 AM [facility] ALKALINE PHOSPHATASE 76 35 - 104 U/L 10/13/2024 9:47 AM [facility] AST 29 10 - 35 U/L 10/13/2024 9:47 AM [facility] ALT 23 <=35 U/L 10/13/2024 9:47 AM [facility] GFR >60 >=60 mL/min/1.7 3 sq meter 10/13/2024 9:47 AM [facility] Comment:eGFR calculated with 2020 CKD-EPI equation. Vegetarian diet, extremely high or low muscle mass, and may affect results. Cystatin C with Glomerular Filtration Rate is a suitable alternative for these patients. ANION GAP 12 9 - 20 mmol/L 10/13/2024 9:47 AM [facility] Blood Venipuncture / Unknown 10/13/2024 9:09 AM T 10/13/2024 9:13 AM CDT Colt Tavera MD CHEMISTRY ORDERABLES F inal Result [facility] # [id number] [address] [place] [address] * TELEMETRY REPORT (10/09/2024 3:32 PM CDT) us Provider Scanning ECG ORDERABLES Final Result * UPPER ENDOSCOPY REPORT (10/08/2024 10:02 AM CDT) Narrative Procedure Note Carmine Dubois MD - 10/08/2024 10:02 AM CDT [facility] GI Patient Name: Arlene Quach [...] Time Scope In: Scope Out: [address] [place], [place] Carmine Dubois MD GI PROCEDURE ORDERA BLES Final Result * (ABNORMAL) HEMOGLOBIN AND HEMATOCRIT (10/07/2024 10:17 PM CDT) Only the most recent of4 resultswithin the time period is included. HEMOGLOBIN 10.0(L) 12.0 - 16.0 g/dL 10/07/2024 11:07 PM CDT [facility] [employer] [facility] HEMATOCRIT 30.9(L) 36.0 - 46.0 % 10/07/2024 11:07 PM CDT [facility] [employer] [facility] Blood Venipuncture / Unknown 10/07/2024 10:17 PM CDT 10/07/2024 10:20 PM CDT Alessandra Jolley DO HEMATOLOGY ORDERABLES Final Result [facility] [employer] [facility] CLIA # [id number] [address] [address] * VERIFICATION BLOOD GROUP (10/06/2024 11:05 PM CDT) ABO GROUP O 10/07/2024 12:13 AM CDT [facility] LABORATORY [facility] RH (D) TYPE Negative 10/07/2024 12:13 AM CDT [facility] Blood Venipuncture / Unknown 10/06/2024 11:05 PM CDT 10/06/2024 11:10 PM CDT Alessandra Jolley DO BLOOD BANK ORDERABLES Final Result Performing Organization Address City/State/ZIP Co az Phone Number [facility] [employer] [facility] CLIA#[id number] [address] [place] [address], * EKG 12-LEAD (10/06/2024 10:19 PM CDT) 10/06/2024 10:1 9 PM CDT Narrative INTERFACE SYSTEM - 10/07/2024 1:[address]T [address] [address] Test Date: 2024-10-06 Pat Name: ARLENE QUACH Department: 12 Room: [address] [place] [address] 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 : 1965 Requested By: Order Number: [id number] Reading MD: Aleah Brian Measurements Intervals [place] Rate: 60 P: 43 MI: 166 QRS: 59 QRSD: 80 T: 42 QT: 422 QTc: 422 Interpretive Statements Normal sinus rhythm Low voltage QRS Cannot rule out Anterior infarct, age undetermined Abnormal ECG Electronically Signed On 10-07-2024 13:13:54 CDT by Aleah Brian Procedure Note Provider, Historical - 10/07/[address], [place] [address] Test Date: 2024-10-06 Pat Name: ARLENE QUACH Department: 12 Room: [address] [place] [address] Gender: Female 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: [id number] : 1965 Requested By: Order Number: [id number] Reading MD: Aleah Brian Measurements Intervals [place] Rate: 60 P: 43 MI: 166 QRS: 59 QRSD: 80 T: 42 QT: 422 QTc: 422 Interpretive Statements Normal sinus rhythm Low voltage QRS Cannot rule out Anterior infarct, age undetermined Abnormal ECG Electronically Signed On 10-07-2024 13:13:54 CDT by Aleah Brian Alessandra Jolley DO ECG ORDERABLES Final Result INTERFACE SYSTEM Refer to clinic/hospital department * TYPE AND SCREEN (10/06/2024 10:05 PM CDT) ABO GROUP O 10/06/2024 11:44 PM CDT [facility] [place] RH (D) TYPE Negative 10/06/2024 11:44 PM CDT [facility] [place] ANTIBODY SCREEN Negative 10/06/2024 11:44 PM CDT [facility] [place] Blood Venipuncture / Unknown 10/06/2024 10:05 PM CDT 10/06/2024 10:18 PM CDT Alessandra Jolley DO BLOOD BANK ORDERABLES Edited Result - Final [facility] [place] CLIA#[id number] [place] [address], * PHOSPHORUS (10/06/2024 10:04 PM CDT) PHOSPHORUS 3.5 2.5 - 4.5 mg/dL 10/06/2024 10:52 PM CDT [facility] [place] Blood Venipuncture / Unknown 10/06/2024 10:04 PM CDT 10/06/2024 10:20 PM CDT Alessandra Jolley DO CHEMISTRY ORDERABLES Final R esult Performing Organization Address [facility] Co de Phone Number [facility] CLIA # [id number] [address] [place], [place] [address] * MAGNESIUM LEVEL (10/06/2024 10:04 PM CDT) MAGNESIUM 2.0 1.6 - 2.4 mg/dL 10/06/2024 10:52 PM CDT [facility] Blood Venipuncture / Unknown 10/06/2024 10:04 PM CDT 10/06/2024 10:20 PM CDT Alessandra Jolley DO CHEMISTRY ORDERABLES Final R esult Performing Organization Address [facility] Co de Phone Number [facility] CLIA # [id number] [address] [place] [address] * COLONOSCOPY REPORT (10/03/2024 8:48 AM CDT) Narrative Procedure Note Carmine Dickerson DO - 10/03/2024 8:48 AM CDT [facility] GI Patient Name: Arlene Quach [...] AM Scope Out: 8:42:29 AM [address] [place], [place] Carmine Dickerson DO GI PROCEDURE ORDERABLES Final Result * PATHOLOGY (10/03/2024 8:38 AM CDT) CASE REPORT Surgical Pathology Report Case: [id number] Authorizing Provider: Carmine Dickerson DO Collected: 10/03/2024 08:38 AM Ordering Location: [facility] Received: 10/03/2024 01:26 PM Endoscopy Pathologist: Lis Mayberry MD Specimen: Colon, ascending, polyp 7:56 AM CDT [facility] FINAL DIAGNOSIS A. Colon, ascending, polyp - Adenomatous polyp Lis Mayberry MD [id number] 5 7:56 AM CDT [facility] at 0756 CDT GROSS DESCRIPTION A. Received in a container of formalin labeled Main -ascending colon polyp is a single fragment of mucosa, 0.2 cm in greatest dimension. The specimen is submitted entirely in A1. Grossed by: Ai Faustin MS, PA (ASCP) 5 7:56 AM CDT [facility] OPERATIVE PROCEDURE 1: ESOPHAGOGASTRODUODENOSCO PY 2: COLONOSCOPY 5 7:56 AM CDT [facility] CLINICAL INFORMATION Melena 5 7:56 AM CDT [facility] COMMENT The Minubo voice-activated dictation system may have been used [...] determined by the Diagnostic Immunohistochemistry Laboratory of [facility] in compliance with CLIA'88 regulations. Some of these tests rely on the use of analyte specific reagents and are subject to specific labeling requirements by the FDA. All controls show appropriate reactivity. This testing was developed by the Diagnostic Immunohistochemistry Laboratory of [facility]. It has not been cleared or approved by the FDA. The FDA has determined that such clearance or approval is not necessary. 5 7:56 AM CDT [facility] Tissue ASCENDING COLON STRUCTURE / Unknown Collection / Unknown 10/03/2024 8:38 AM CDT 10/03/2024 1:26 PM CDT Comment:Verified by AA/Aguila Guerrero MD Carmine Dickerson DO PATHOLOGY/CYTOLOGY [facility] Final Result [facility] CLIA # [id number] [facility] [address] [place] [address] * UPPER ENDOSCOPY REPORT (10/03/2024 8:36 AM CDT) Narrative Procedure Note Carmine Dickerson DO - 10/03/2024 8:36 AM CDT [facility] GI Patient Name: Arlene Quach [...] Scope In: Scope Out: [address] [place], [place] Carmine Dickerson DO GI PROCEDURE ORDERABLES [...] DO PROCEDURE/MINOR SURGICA L ORDERABLES Final Result from Last 3 Months Additional Health Concerns Infection Onset Date Last Indicated C Diff 10/07/2024 10/07/2024 Insurance [facility] [place] Address: [address] [address] [place] [address] [place] Advance Directives For more information, please contact: [phone] * Full Code (Latest Code Status on File) Date Activated Date Inactivated Comments 10/06/2024 9:13 PM 10/08/2024 5:59 PM * Full Code Date Activated Date Inactivated Comments 10/03/2024 7:38 AM 10/03/2024 11:18 AM Care Teams Sash Finisher Relationship Specialty Start Date End Date Aguila Castro MD [address] [phone] PCP - General Family Practice 05/26/21
[2024-10-14 10:42] VITALS: BP 86/62; PULSE 83; RESP 17; TEMP 36.7; O2SAT 97
--- NOTE | 2024-10-14 10:47 | CTR_ITS ---
PROCEDURE INFORMATION: Exam: CT Abdomen And Pelvis With Contrast Exam date and time: 10/14/2024 12:13 PM Age: 59 years old Clinical indication: Abdominal pain; Generalized; Prior surgery; Surgery date: 6+ months; Surgery type: Left hip, oopherectomy; Additional info: Colitis TECHNIQUE: Imaging protocol: Computed tomography of the abdomen and pelvis with contrast. Radiation optimization: All CT scans at this facility use at least one of these dose optimization techniques: automated exposure control; mA and/or kV adjustment per patient size (includes targeted exams where dose is matched to clinical indication); or iterative reconstruction. Contrast material: OMNIPAQUE 350; Contrast volume: 100 ml; Contrast route: INTRAVENOUS (IV); Other contrast: Oral, water soluble Omni 350 25ml, 20 fl/oz; COMPARISON: CT abdomen pelvis w con* [id number] 10/06/2024 1:13 PM RADIATION DOSE METRICS: Total DLP (mGy-cm): 503.93 FINDINGS: Lungs: There are metallic coils in the inferior lingula. Liver: There is no focal liver abnormality. The liver has a nodular surface and there is relative hypertrophy of the left and caudate lobe consistent with cirrhosis. Gallbladder and biliary ducts: The gallbladder is nondistended and the wall is thin. No calcified gallstones. No biliary dilation. Pericholecystic fluid is present. Pancreas: The pancreas is unremarkable. Spleen: The spleen is unremarkable. Adrenal glands: There is a left adrenal nodule of intermediate density measuring 19 x 12 mm on axial series 5, image 16 which is stable since 11/24/2022. No imaging follow-up is recommended. The right adrenal gland is unremarkable. Kidneys and ureters: There are simple cysts in both kidneys measuring up to 16 mm on the right and 14 mm on the left, stable since 11/24/2022. There is no hydronephrosis or stones. Stomach and bowel: The gastric lumen is decompressed, limiting assessment of the wall. There is mucosal thickening and mild perigastric edema involving the antrum and proximal duodenum. The small bowel is nondilated. There is luminal decompression and diffuse mucosal thickening in the ascending and proximal transverse colon. The sigmoid colon also demonstrates luminal decompression and mildly diffusely thickened wall with scattered diverticula but no sign of focal diverticular inflammation. Colonic mucosal assessment is limited due to the presence of high attenuation intraluminal contrast. Appendix: The appendix is normal. Intraperitoneal space: Large volume simple ascites. No intraperitoneal free air. Vasculature: There are large splenorenal and left upper quadrant mesenteric varices. The portal, splenic and superior mesenteric veins are patent. The main portal vein is dilated to 2.8 cm. The proximal superior mesenteric vein is dilated to 3.1 cm. Splenic vein is ectatic measuring 14 mm. There are small varices along the right posterior and to a lesser extent left posterior retroperitoneum. There is a circumaortic left renal vein which is enlarged. There are small omental varices. There is moderate aortic atherosclerotic disease. Lymph nodes: There is no lymphadenopathy in the retroperitoneum, mesentery, pelvis or inguinal regions. Urinary bladder: The urinary bladder is unremarkable but suboptimally evaluated due to beam hardening artifact and incomplete luminal distension. Reproductive: The uterus is unremarkable. There is no adnexal mass or large cyst. Bones/joints: There is mild degenerative disease in the lumbar spine. There is moderate degenerative disease of the right hip. The left hip prosthesis is intact and well aligned. The bony pelvis is intact. Soft tissues: The abdominal wall is intact. CT/CT abdomen pelvis w con* [id number] IMPRESSION: 1. Morphologic features of the liver are consistent with cirrhosis. 2. Portal hypertension. Dilated portal venous system. Large spleno renal varices. Large left upper quadrant mesenteric varices. Small bilateral posterior retroperitoneal varices. 3. Mild distal gastric and proximal duodenal mucosal thickening and surrounding edema. Some component of portal gastropathy is likely present. Infectious, inflammatory or ischemic gastroduodenitis is not excluded. 4. Mucosal thickening in the ascending, proximal transverse, and sigmoid colon. Some component of portal colopathy is likely present. Infectious, inflammatory or ischemic colitis is not excluded. Colonic mucosal evaluation is limited due to the presence of intraluminal contrast. 5. Large volume simple ascites. No change since 10/06/2024. 6. Spleen is normal in size.
[2024-10-14 10:48] LABS: Hematocrit 32.1 % (36-47); Hemoglobin 10.50 g/dL (11.27-16.99); Mean Corpuscular HGB Conc 32.7 g/dL (30-55); Mean Corpuscular Hemoglobin 26.7 pg (27-33); Mean Corpuscular Volume 81.7 fl (85-98); Nucleated Red Blood Cells % 0 %; Platelet Count 252 10^3/cmm (157-399); Red Blood Count 3.93 10^6/uL (3.85-5.65); White Blood Count 4.46 10^3/uL (3.29-11.43)
[2024-10-14 10:50] VITALS: BP 86/62; O2SAT 96
--- NOTE | 2024-10-14 10:50 | W.ED.GIBLEED ---
HPI - GI Bleed General: Chief complaint: GI Bleed Stated complaint: rectal bleeding Time Seen by Provider: 10/14/24 10:29 History of Present Illness: Patient presents with acute rectal bleeding that began this morning at 6:00 AM. She describes the bleeding as 'gushing' and compares it to 'peeing' from the rectum. Patient reports no prior episodes of this nature. She underwent colonoscopy and endoscopy at [facility] on Tuesday (3 days ago). Following the procedure, she reports becoming progressively ill, prompting her to return to [facility] where she was diagnosed with Clostridium difficile (C. diff) infection. Patient was informed that some blood in stool might occur with C. diff, but states the current bleeding is much more severe than anticipated. She is currently on vancomycin for C. diff treatment, with her next dose due at noon today. Patient brought her medication with her. She expresses concern about bleeding through her clothes and needing extra protection. Related Data Home Medications ?Medication ?Instructions ?Recorded ?Confirmed aspirin 81 mg tablet,delayed 81 mg PO DAILY 06/02/20 10/14/24 release Held on 10/14/24. Instructions: Resume on 10/25/24. Hold until PCP / GI says resume cetirizine 10 mg tablet (Allergy 10 mg PO DAILY 03/19/23 10/14/24 Relief (cetirizine)) trazodone 50 mg tablet 50 mg PO BEDTIME 03/19/23 10/14/24 hydrocodone 5 mg-acetaminophen 325 1 tab PO Q12H 10/06/24 10/14/24 mg tablet methocarbamol 500 mg tablet 500 mg PO DAILY PRN Pain 10/06/24 10/14/24 Held on 10/14/24. Instructions: Resume on 10/22/24. carvedilol 6.25 mg tablet 6.25 mg PO DAILY 10/14/24 10/14/24 levothyroxine 50 mcg tablet 50 mcg PO DAILY 10/14/24 10/14/24 tizanidine 4 mg tablet 4 mg PO DAILY PRN muscle spasms 10/14/24 10/14/24 Held on 10/14/24. Instructions: Resume on 10/22/24. vancomycin 125 mg capsule 125 mg PO Q6H 10/14/24 10/14/24 Allergies Allergy/AdvReac Type Severity Reaction Status Date / Time Sulfa (Sulfonamide Allergy ALGY-Rash Verified 11/15/23 14:51 Antibiotics) Review of Systems General: Reports: 10 or more systems reviewed and unremarkable except in HPI and below PFSH ED PFSH: Medical History (Updated 10/14/24 @ 13:14 by Marquez Banks DO) Hypothyroidism Iron deficiency anemia due to chronic blood loss Left axillary pain Helicobacter pylori gastritis Hereditary hemorrhagic telangiectasia Anterior cruciate ligament complete tear CVA (cerebral vascular accident) GERD (gastroesophageal reflux disease) Surgical History H/O esophagogastroduodenoscopy (05/01/21) cautery of 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 4 H/O esophagogastroduodenoscopy (06/03/20) 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 History of lung surgery 2008 History of colonoscopy (06/03/20) Cautery of AVM Hx of brain surgery History of eye surgery History of knee surgery History of hip surgery Hx of removal of ovary Social History Smoking and tobacco/nicotine status: never used tobacco/nicotine Quit status (tobacco/nicotine): has quit using Year quit tobacco: Nov 2021 Former quit date comment: Smoked for 40+ years Alcohol intake: current Alcohol intake frequency: few times a week Substance/Drug Use: never Marital status: Number of children: 1 Current occupational status: disabled Physical Exam Const: COMMON NORMALS: no acute distress, patient oriented x3, alert and well nourished HENMT: COMMON NORMALS: normocephalic HEAD & SCALP: normocephalic Eye: COMMON NORMALS: Equal, round and reactive pupils present, EOMs intact bilaterally and conjunctivae normal CONJUNCTIVA: Yes conjunctivae normal PUPIL: Yes Equal, round and reactive pupils present Neck/C-Spine: COMMON NORMALS: no JVD Resp: COMMON NORMALS: normal respiratory effort, No retractions, No use of accessory muscles, clear to auscultation bilaterally and percussion normal AUSCULTATION: clear to auscultation bilaterally PERCUSSION: percussion normal Cardio: COMMON NORMALS: no JVD GI: COMMON NORMALS: Normal to inspection, nondistended, normoactive bowel sounds present, Soft to palpation, non-tender, No hepatosplenomegaly present, no masses and no bruits PALPATION: Yes Soft to palpation and Yes No hepatosplenomegaly present : COMMON NORMALS: Yes no CVA tenderness BLADDER/KIDNEY EXAM: Yes no CVA tenderness Back/Pelvis: COMMON NORMALS: no CVA tenderness Extremity: COMMON NORMALS: normal to inspection, full ROM, capillary refill normal, no joint enlargement, no clubbing, cyanosis or edema, no calf tenderness and no pedal edema Neuro: COMMON NORMALS: patient oriented x3 SENSORIUM/ORIENTATION: Yes alert Skin: COMMON NORMALS: no rashes or lesions noted, turgor normal and no jaundice GENERAL SKIN EXAM: no rashes or lesions noted and turgor normal Course Vital Signs: Vital signs: Vital Signs Temperature 98.0 F 10/14/24 10:42 Pulse Rate 66 10/14/24 12:30 Respiratory Rate 19 H 10/14/24 12:00 Blood Pressure 121/72 10/14/24 11:30 Pulse Oximetry 97 10/14/24 12:30 MDM - GI Bleed Medical Decision Making 1. Acute Rectal Bleeding: - Likely secondary to C. difficile colitis - Severity suggests need for immediate evaluation - Will obtain CBC to assess hemoglobin/hematocrit levels and evaluate for anemia - IV access for potential fluid resuscitation if hemodynamically unstable - Consider GI consultation for possible endoscopic evaluation 2. Clostridium difficile Infection: - Continue vancomycin as prescribed - Monitor response to treatment - Assess for signs of severe or fulminant colitis (fever, leukocytosis, hypotension) - Stool studies to confirm ongoing infection if not recently performed 3. Post-Colonoscopy Status: - Will obtain colonoscopy report from [facility] - Assess for potential procedural complications 4. Disposition: - Consider admission for monitoring and management of acute bleeding - Hydration status to be closely monitored - Patient education regarding expected course and warning signs 59-year-old female found to have C. difficile seal colitis. Vital signs are reasonably stable and improved. The patient feels better she has not had any significant bleeding here. Her hemoglobin is 10.5. White blood cell count is normal BUN and creatinine are normal. She is on treatment already for C. difficile the CT shows mucosal thickening and surrounding edema consistent with colitis. We talked about disposition and mutually agreed that she is going to go home and follow-up with her physicians tomorrow. We counseled her on return precautions and follow-up indications. Lab Data 10/14/24 10:39 10/14/24 10:39 Radiology Impressions Abdomen/Pelvis CT 10/14/24 10:47 IMPRESSION: 1. Morphologic features of the liver are consistent with cirrhosis. 2. Portal hypertension. Dilated portal venous system. Large spleno renal varices. Large left upper quadrant mesenteric varices. Small bilateral posterior retroperitoneal varices. 3. Mild distal gastric and proximal duodenal mucosal thickening and surrounding edema. Some component of portal gastropathy is likely present. Infectious, inflammatory or ischemic gastroduodenitis is not excluded. 4. Mucosal thickening in the ascending, proximal transverse, and sigmoid colon. Some component of portal colopathy is likely present. Infectious, inflammatory or ischemic colitis is not excluded. Colonic mucosal evaluation is limited due to the presence of intraluminal contrast. 5. Large volume simple ascites. No change since 10/06/2024. 6. Spleen is normal in size. Laboratory Results WBC 4.46 10^3/uL (3.29-11.43) 10/14/24 10:39 RBC 3.93 10^6/uL (3.85-5.65) 10/14/24 10:39 Hgb 10.50 g/dL (11.27-16.99) L 10/14/24 10:39 Hct 32.1 % (36-47) L 10/14/24 10:39 MCV 81.7 fl (85-98) L 10/14/24 10:39 MCH 26.7 pg (27-33) L 10/14/24 10:39 MCHC 32.7 g/dL (30-55) 10/14/24 10:39 RDW 18.7 % (12.1-15.1) H 10/14/24 10:39 Plt Count 252 10^3/cmm (157-399) 10/14/24 10:39 MPV 11.7 fL (7.4-10.4) H 10/14/24 10:39 Neut % (Auto) 60.3 % 10/14/24 10:39 Lymph % (Auto) 26.7 % 10/14/24 10:39 [place] % (Auto) 11.7 % 10/14/24 10:39 Eos % (Auto) 0.4 % 10/14/24 10:39 Baso % (Auto) 0.7 % 10/14/24 10:39 Neut # (Auto) 2.69 10^3/uL (1.8-7.7) 10/14/24 10:39 Lymph # (Auto) 1.2 10^3/uL (0.8-4.8) 10/14/24 10:39 [place] # (Auto) 0.5 10^3/uL (0.2-0.9) 10/14/24 10:39 Eos # (Auto) 0.0 10^3/uL (0.0-0.8) 10/14/24 10:39 Baso # (Auto) 0.0 10^3/uL (0.0-0.1) 10/14/24 10:39 Nucleated RBC % (auto) 0 % 10/14/24 10:39 Nucleated RBCs # 0.0 /100WBC 10/14/24 10:39 ESR 2 mm/hr (0-15) 10/14/24 10:39 Sodium 139 mmol/L (136-145) 10/14/24 10:39 Potassium 4.1 mmol/L (3.5-5.1) 10/14/24 10:39 Chloride 105 mmol/L (98-107) 10/14/24 10:39 Carbon Dioxide 24 mmol/L (22-29) 10/14/24 10:39 Anion Gap 14.1 (5-19) 10/14/24 10:39 BUN 7 mg/dL (8-23) L 10/14/24 10:39 Creatinine 0.8 mg/dL (0.5-0.9) 10/14/24 10:39 GFR Calculation 73.2 mL/min (90-130) L 10/14/24 10:39 Glucose 106 mg/dL (65-115) 10/14/24 10:39 Calculated Osmolality 286 mOsm/kg (285-295) 10/14/24 10:39 Calcium 8.7 mg/dL (8.5-10.5) 10/14/24 10:39 All radiology interpretation(s) finalized by discharge Discharge Plan Discharge Patient Disposition: Home Clinical Impression: Lower gastrointestinal hemorrhage, Clostridium difficile colitis Condition: Stable Prescriptions: Continued carvedilol 6.25 mg tablet 6.25 mg PO DAILY vancomycin 125 mg capsule 125 mg PO Q6H levothyroxine 50 mcg tablet 50 mcg PO DAILY trazodone 50 mg tablet 50 mg PO BEDTIME cetirizine [Allergy Relief (cetirizine)] 10 mg tablet 10 mg PO DAILY hydrocodone-acetaminophen 5-325 mg tablet 1 tab PO Q12H Held aspirin 81 mg Tablet,Delayed Release (Dr/Ec) 81 mg PO DAILY Hold Instructions: Resume on 10/25/24. Hold until PCP / GI says resume tizanidine 4 mg tablet 4 mg PO DAILY PRN (Reason: muscle spasms) Hold Instructions: Resume on 10/22/24. methocarbamol 500 mg tablet 500 mg PO DAILY PRN (Reason: Pain) Hold Instructions: Resume on 10/22/24. Discharge Orders: Discharge ED (Routine); Ordered 10/14/24 Ordered By: Marquez Banks Referrals: Tawnya Lane DO [Primary Care Provider, PECAN GATHERER] Discharge Diet: Full LIquid Discharge Activity: Limit activity as instructed Patient Instructions: Opioid Safety, Pain Management, Patient Portal & Mani Instructions Activity Restrictions/Additional Instructions: 1. Call PCP / GI physician in AM for follow up and further management. 2. Hold aspirin, continue vancomycin. Rest and fluids. Hold COREG if blood pressure less than 110. 3. Return for new or worsening symptoms as discussed. Print Language: Albanian Coding Level of Care Code ED End Finder Twisting Department for Irma Montanez
[2024-10-14 10:59] LABS: Anion Gap 14.1 (5-19); Blood Urea Nitrogen 7 mg/dL (8-23); Calcium 8.7 mg/dL (8.5-10.5); Carbon Dioxide 24 mmol/L (22-29); Chloride 105 mmol/L (98-107); Glucose 106 mg/dL (65-115); Osmolality Calculated 286 mOsm/kg (285-295); Potassium 4.1 mmol/L (3.5-5.1); Sodium 139 mmol/L (136-145)
[2024-10-14 11:00] VITALS: BP 123/63; PULSE 68; RESP 12; O2SAT 97
[2024-10-14 11:30] VITALS: BP 121/72; PULSE 67; RESP 18; O2SAT 99
[2024-10-14 12:00] VITALS: PULSE 70; RESP 19; O2SAT 94
[2024-10-14 12:30] VITALS: PULSE 66; O2SAT 97
[2024-10-14] MEDS: diphenhydrAMINE 50 mg/mL SDV 1mL 25 MG IVP (12:37)
== END 2024-10-14 13:42 | disposition home or self-care (01) ==
PROVIDERS: Emergency Provider Family Medicine; PCP Family Medicine
DX: K92.2 Gastrointestinal hemorrhage, unspecified (principal); A04.72 Enterocolitis due to Clostridium difficile, not specified as recurrent; Z79.82 Long term (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 of aspirin; Z87.891 Personal history of nicotine dependence; Z86.73 Personal history of transient ischemic attack (TIA), and cerebral infarction without residual deficits
CPT/HCPCS: 36415; 74177; 80048; 85025; 85651; 96374; 96375; 99285; J0780; J1200; J7120

== ENCOUNTER 2024-10-16 09:17 | Emergency (ER) | payer MEDICARE, MEDICAID, SELFPAY ==
--- OUTSIDE RECORDS SUMMARY | 2024-10-13 08:38 | XMS_ITS | Encounter Summary ---
[facility] Address [address] [place] [address] Care Team Providers Care Civil Transportation Engineer Name Role Phone Aguila Castro MD Primary Care Provider + Reason for Referral * Eval and Treat (Urgent) - Closed Specialty Diagnoses / Procedures Referred By Maryjane tim Referred To Contact Diagnoses Cirrhosis of liver with ascites, unspecified hepatic cirrhosis type (CMS/HCC) Abdominal distention Gastritis without bleeding, unspecified chronicity, unspecified gastritis type Procedures [place] OFFICE/OUTPATIENT ESTABLISHED MOD MDM 30 MIN [place] OFFICE/OUTPATIENT NEW MODERATE MDM 45 MINUTES Colt Tavera MD [address] [place] [address] Phone: tel: fax: Referral ID Status Reason Start Date Expiration Date Visits Re quested Visits Authorized [id number] Closed 10/13/2024 10/13/2025 1 1 Reason for Visit * Reason Comments Diarrhea States she was diagn osed with C-Diff. States she was admitted on Tuesday and discharged on Tuesday. States she is she is straining to have stool and has increased gas. Denies fever. * Auth/Cert (Routine) Specialty Diagnoses / Procedures Referred By Maryjane tim Referred To Contact Emergency Medicine [facility] Emergency Department [address] [place] [address] Phone: tel: fax: Referral ID Status Reason Start Date Expiration Date Visits Re quested Visits Authorized [id number] 1 1 Encounter Details Date Type Department Care Team (Late st Contact Info) Description 10/13/2024 8:38 AM CDT - 10/13/2024 1:27 PM CDT Emergency [facility] Emergency Department [address] [place] [address] Colt Tavera MD [address] [place] [address] Cirrhosis of liver with ascites, unspecified hepatic cirrhosis type (CMS/HCC) (Primary Dx); Abdominal distention; Gastritis without bleeding, unspecified chronicity, unspecified gastritis type Discharge Disposition: Home or Self Care Social History Tobacco Use Types Packs/Day Years Used Date Smoking Tobacco: Every Day Cigarettes Smokeless Tobacco: Never Alcohol Use Standard Drinks/Week Comments Not Currently 0 (1 standard drink = 0.6 oz pur e alcohol) rare Feeling Safe Answer Date Recorded Are you in a relationship wi th someone who hurts you emotionally and/or physically? 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 Gender Identity Not on file Sexual Orientation Not on file documented as of this encounter Last Filed Vital Signs Vital Sign Reading Time Taken Comments Blood Pressure 112/60 10/13/2024 1:15 PM CDT Pulse 68 10/13/2024 1:15 PM CDT Temperature 36.7 C (98 F) 10/13/2024 8:34 AM CDT Respiratory Rate 18 10/13/2024 8:34 AM CDT Oxygen Saturation 96% 10/13/2024 1:15 PM CDT Inhaled Oxygen Concentration - - Weight 64.9 kg (143 lb) 10/13/2024 8:34 AM CDT Height 175.3 cm (5' 9 ) 10/13/2024 8:34 AM CDT Body Mass Index 21.12 10/13/2024 8:34 AM CDT documented in this encounter Discharge Instructions * Discharge Instructions* Colt Tavera MD - 10/13/2024 1:08 PM CDT Please follow-up with the rehabilitation caseworker provided or your rehabilitation caseworker as previously scheduled regarding your recently diagnosed liver cirrhosis with ascites as seen on CT imaging today. Follow-up with your primary doctor regarding your recent emergency room visit including all lab and imaging results and incidental findings. This fluid is likely secondary from your liver cirrhosis but has been sent for evaluation to rule out such causes including cancer and infection; you can follow-up these results with your PCP. Should you develop fever or worsening pain or nausea vomiting or anyother issues please return to the emergency room immediately per discussion. Continue taking your pr eviously prescribed antacid medication and oral vancomycin antibiotics as previously instructed. * Attachments The following attachments cannot be sent through Care Everywhere. * Gastritis (Vincentian) * Gas and Bloating (Vincentian) * Cirrhosis (Vincentian) documented in this encounter Medications at Time of Discharge pantoprazole (PROTONIX) 40 mg Tablet, Delayed Release (E.C.) Take 1 Tablet (40 mg) by mouth 2 times daily. 60 Tablet 10/08/2024 vancomycin (VANCOCIN) 125 mg Capsule Take 1 Capsule (125 mg) by mouth every 6 hours for 12 days. 48 Capsule 10/08/2024 sodium chloride 0.9 % Parenteral Solution with iron sucrose 100 mg iron/5 mL Solution Inject by intravenous injection one time only. carvediloL (Coreg) 6.25 mg tablet Take 1 Tablet (6.25 mg) by mouth daily. 30 Tablet 3 10/03/2024 HYDROcodone-acet aminophen (NORCO) 5-325 mg tablet Take by mouth. PRN 01/24/2023 tiZANidine (ZANAFLEX) 4 mg Tablet 09/06/2024 ondansetron (ZOFRAN ODT) 4 mg Tablet, Rapid Dissolve Take 4 mg by mouth every 6 hours as needed for Nausea. 02/01/2023 IRON PS [id number] C ACID ORAL Take by mouth. montelukast (SINGULAIR) 10 mg tablet 04/24/2021 cetirizine (ZyrTEC) 10 mg tablet Take 10 mg by mouth daily. 04/24/2021 levothyroxine 50 mcg tablet Take 50 mcg by mouth daily. 04/27/2021 multivitamin (DAILY-MARIO) tablet Take 1 Tablet by mouth daily. vitamin E 400 unit capsule Take 400 Units by mouth daily. traZODone (DESYREL) 50 mg tablet Take 50 mg by mouth daily at bedtime. aspirin (ECOTRIN EC) 81 mg Tablet, Delayed Release (E.C.) Take 81 mg by mouth daily. documented as of this encounter Progress Notes * Denice Acuna FNP - 10/13/2024 12:21 PM CDT Post Procedure Vascular/Interventional Radiology Note Pre-Radiology Procedure Diagnosis: recurrent ascites Technical Procedure: US guided paracentesis (diagnostic and therapeutic) Specimens removed: 1750 ml clear yellow ascites removed from the RLQ. Tolerated procedure well. There were no immediate post-procedure complications. Fluid was sent to the lab for analysis. Estimated Blood Loss: none Medications: 1% Lidocaine used for local anesthesia. Post-Radiology Procedure Diagnosis: as above PETR Tony 10/13/24 12:21 PM Cosigned by Rizwan Patel MD at 10/13/2024 6:05 PM CDT * Mariann Sepulveda RT - 10/13/2024 10:36 AM CDT IMAGING SERVICES- CONTRAST, MEDICATION and FLUSH PROTOCOL [facility] Enter the protocol in the patient's electronic health record using smartphrase: .imagingcontrastprotocol Communication Orders: Initiate a peripheral IV, if not already in place, and discontinue IV prior to discharge Enter order if needed: Insert Peripheral IV Medication Orders: Lidocaine 4% (L.M.X.4)- applied topically ONE TIME prior to IV catheter insertion PRN (apply 15 minutes prior to procedure) Sodium chloride 0.9% (normal saline) flush- 10 mLs PRN for saline lock or medication administration Oxygen- For respiratory distress, initiate O2 to maintain saturation greater than 90% CAT SCAN CT IV CONTRAST PROTOCOLS FOR ADULTS Iopamidol Injection 61% (ISOVUE-300)- Double bolus with MD approval Routine exams dosed by weight: <150lbs- 75mL 151lbs to 220lbs- 100mL >220lbs- 125mL CT Angiography: 100mL Runoff and Triphasic Liver Protocols: 150mL Iopamidol Injection 76% (ISOVUE-370) Cardiac- 110mL TAVR- 160mL CT IV CONTRAST PROTOCOLS FOR PEDIATRICS Iopamidol Injection 61% (ISOVUE-300) - Routine exams: 1mL per pound and Pediatric- Head / Face: 1mL per pound up to 50 lbs Pediatric- Routine exams: 1mL per pound up to 75 lbs 75-150 lbs: 75mL 150-220 lbs: 100mL >220 lbs: 125mL CT ORAL CONTRAST PROTOCOLS FOR ADULTS Iohexol 300mg/mL (OMNIPAQUE) for CT scan unless patient has a documented allergy to contrast * 15ml added to 16 oz of clear liquid of patient's choice. Preferred route is oral. May use nasoenteric tube if needed. Administer 16 oz the diluted Omnipaque 300, orally 1st dose 30-60 minutes prior to scan and 2nd dose just before scan. * Barium Sulfate 2% w/v (READI-CAT2) for CT scan when patient has documented contrast allergy Administer 2 doses of 450mL of barium sulfate. First dose 30-60 min prior to exam and 2nd dose justbefore exam. Preferred route is oral. May use nasoenteric tube if needed. Barium Sulfate 0.1% w/v, 0.1% w/w (VOLUMEN) for Enterography and GI Bleed protocols Administer VoLumen- 3 doses of 450 mL. 1st dose must be completed within 20 minutes. 2nd dose must be completed in the next 30 minutes. 3rd dose is given at scan time. Preferred route is oral. May use nasoenteric tube if needed. CT ORAL CONTRAST PROTOCOLS FOR PEDIATRICS Preferred route is oral, may use nasoenteric tube if needed. to 3 months- Barium Sulfate 2%w/v (READI-CAT2) thinned with water to a consistency for typical bottle feeding 3 Months to 3 years- Iohexol 300mg/mL (OMNIPAQUE) 5mL diluted with 16oz clear fluid. 1 dose: 30min prior to exam 4 years to 10 years- Iohexol 300mg/mL (OMNIPAQUE) 8mL diluted with 16oz clear fluid. 1 dose: 30min prior to exam 10 years and up- Iohexol 300mg/mL (OMNIPAQUE) 15mL diluted with 16oz clear fluid. 2 doses: first dose 30min prior to exam and 2nd dose just before scan if tolerated CT CYSTOGRAM Iopamidol 61% Injection ([id number]): 25mL Dilute into 500mL bag of sterile NS administer up to 300mL retrograde via urinary catheter DIAGNOSTIC RADIOLOGY Enter the protocol in the patient's electronic health record using RollUp [employer]iar[employer]: ADULTS PROCEDURE DOSAGE ARTHROGRAMS Plain ISOVUE 300 12mL MRI-(Ankle,Elbow,Hip,Wrist,Knee,Shoulder) ISOVUE 300 5mL / Prohance .2ml CT-(Ankle,Elbow,Hip,Wrist,Knee,Shoulder) ISOVUE 300 20mL BARIUM ENEMAS BARIUM ENEMA AIR CONTRAST LIQUID POLIBAR 1900ml BARIUM ENEMA/ GASTROGRAFIN B.E. LIQUID POLIBAR 800mL + 3200mL of water or GASTROGRAFIN 960mL + 3040mL of water. CYSTOGRAM CYSTOGRAFIN 1500mL ESOPHAGUS BARIUM SWALLOW E-Z-HD Barium Sulfate for Suspension 340g. and/or E-Z-PAQUE Barium Sulfate Oral Suspension 355mL OMNIPAQUE 350 50ml or GASTROGRAFIN 120mL Barium tablet 700mg (if indicated) MODIFIED BARIUM SWALLOW Barium tablet 700mg, Varibar paste 90g/Varibar thin 74g/ Varibar honey 125mL/ Varibar [place] 120mL HYSTEROSALPINGOGRAM ISOVUE 300 30ml IVP'S ISOVUE 300 100ml MYELOGRAMS: CERVICAL ISOVUE-M 300 10mL THORACIC ISOVUE-M 300 10mL LUMBAR ISOVUE-M 200 12mL SMALL BOWEL SERIES E-Z-PAQUE Barium Sulfate for Oral Suspension 710mL or GASTROGRAFIN 240mL LOOPOGRAM ISOVUE 300 60mL NEPHROSTOGRAM ISOVUE 300 60mL RETROGRADE URETHROGRAM Cystografin 300mL UPPER GI Upper GI E-Z-HD Barium Sulfate for Suspension: 340g. and/or E-Z-PAQUE Barium Sulfate for Oral Suspension: 355mL Upper GI Air Contrast Same as above EZ Gas crystals (if indicated) URETHROCYSTOGRAM VOIDING Cystografin 1500mL PORT CONTRAST INJECTION WITH Isovue 300 20mL FLUORO PEDIATRICS PROCEDURE CONTRAST DOSAGE Upper GI Under Age 5 Liquid E-Z-Paque (Thin Barium) 240mL Omnipaque 180 (hypaque) or 350 50mL Upper GI Above Age 5 EZ HD (Thick Barium) 340g Liquid E-Z Paque (Thin Barium) 240mL EZ Gas Packet 4g Omnipaque 350 (hypaque) 50mL Small Bowel Series Under Age 5 Liquid E-Z Paque (Thin Barium) 240mL Omnipaque 180 (hypaque) 50mL Small Bowel Series Above Age 5 Liquid E-Z Paque (Thin Barium) 480mL Omnipaque 350 50mL Barium Swallow Under Age 5 Liquid E-Z Paque (Thin Barium) 240mL Omnipaque 180 (hypaque) 50mL Barium Swallow Above Age 5 EZ HD (Thick Barium) 340g Liquid E-Z Paque (Thin Barium) 240mL Omnipaque 350 50mL Modified Barium Swallow >1 Varibar [id number]: 1 to 2 Varibar Thin74 Paste 90g (Video Swallow with Speech) <2 Varibar [id number], [id number], Honey 125mL, Paste 90g IVP Isovue 300 100mL/1mL per lb. Urethrocystogram Voiding Cystografin 500mL Barium Enema Liquid Polibar 400mL+1600 water 2000mL Barium Enema with Hypaque Gastrografin 1 bottle mixed 5 bottle water 720mL Over 5 Gastrografin 480mL+1520 water 2000mL Barium Enema Air Contrast Liquid Polibar 1900mL INTERVENTIONAL RADIOLOGY PROCEDURE DOSAGE IR ARTERIOGRAM VISIPAQUE 320 OR OMNIPAQUE 300 MAX DOSAGE 400mL IR BILIARY ISOVUE 200 MAX DOSAGE 300 mL IR FISTULOGRAM ISOVUE 200 OR VISIPAQUE 320 MAX DOSAGE 400mL IR IVC FILTER ISOVUE 200 OR VISIPAQUE MAX DOSAGE 400 mL IR TUBE PLACEMENT ISOVUE 200 MAX DOSAGE 300 mL IR VENOUS ABDOMINAL VISIPAQUE 320 OR ISOVUE 200 MAX DOSAGE 400 mL IR VENOUS ACCESS ISOVUE 200 MAX DOSAGE 300 mL IR VENOUS UPPER AND LOWER EXTREMITY VISIPAQUE 320 OR ISOVUE 200 MAX DOSAGE 400 mL IR SPINAL INTERVENTION ISOVUE 200 MAX DOSAGE 100mL (FOR BALLOON ONLY) MRI MRI IV CONTRAST PROTOCOLS FOR ADULTS Gadobenate Dimeglumine (MULTIHANCE) (0.1mmol/0.2mL)- Administer 0.1mmol/kg = 0.2mL/kg up to 30mL MAX, intravenously, one time only for routine MRI Gadoxetate (EOVIST) (2.5 mmol/10mL)- Administer 0.025mmol/kg = 0.1mL/kg up to 15mL MAX, intravenously, one time only when requested by radiologist for Liver protocol Gadoteridol (PROHANCE) (0.1mmol/0.2mL)- Administer 0.1mmol/kg = 0.2mL/kg up to 30mL MAX, intravenously, one time only when approved by radiologist for routine MRI MRI IV CONTRAST PROTOCOLS FOR PEDIATRICS Radiologist to determine the need for contrast Term neonates and older: Gadobenate Dimeglumine (MULTIHANCE) (0.1mmol/0.2mL) -Administer 0.1mmol/kg = 0.2mL/kg up 20mL MAX, intravenously, one time only MRI ORAL CONTRAST PROTOCOLS Barium Sulfate 0.1% w/v, 0.1% w/w (VOLUMEN) for Enterography Administer VoLumen- 3 doses of 450 mL. 1st dose must be completed within 20 minutes. 2nd dose must be completed in the next 30 minutes. 3rd dose is given at scan time. Preferred route is oral. May use nasoenteric tube if needed. Use half dose if patient is <100lb NUCLEAR MEDICINE Procedure: Abscess Localization Medications for Procedure: In-111 Leukocytes *Syringes prepped with 2000 units of Heparin added to 10ml of 6% Hetastarch- Approximately 45ml's patient's blood added to the above for labeling Adult Dose: 300-550uCi Pediatric Dose Calculation: .0075mCi/kg Pediatric Minimum: 50uCi Pediatric Maximum: 500uCi Reference: #3 Procedure: Abscess Localization Medications for Procedure: Tc-99m HMPAO Leukocytes *Syringes prepped with 2000 units of Heparin added to 10ml of 6% Hetastarch- Approximately 45ml's patient's blood added to the above for labeling Adult Dose: 15-30mCi Pediatric Dose Calculation: .15mCi/kg Pediatric Minimum: 500uCi Pediatric Maximum: 10.5mCi Reference: #3 Procedure: Abscess Localization Medications for Procedure: Ga-67 Citrate Adult Dose: Ga-67 Citrate Pediatric Dose Calculation: .05mCi/kg Pediatric Minimum: .05mCi/kg Pediatric Maximum: .05mCi/kg Reference: .05mCi/kg Procedure: Arthrogram Medications for Procedure: Tc-99m Sulfur Colloid Adult Dose: 1.0mCi Procedure: Blood Pool (Muga/Hepatic Hemangioma/GI Bleed) Medications for Procedure: Tc-99m Ultratag *Syringe prepped with Heparin Lock Flush(concentration of 100 units/ml) volume of ~.1ml used so dose is ~10 units of Heparin for each procedure Adult Dose: 30mCi Pediatric Dose Calculation: .25mCi/kg Pediatric Minimum: 2.5mCi Pediatric Maximum: 17.5mCi Reference: #1 Comments: Used .25mCi/kg for all exams in this category per Nuclear Medicine physicians Procedure: Bone Scan Medications for Procedure: Tc-99m HDP Adult Dose: 20mCi Pediatric Dose Calculation: .25mCi/kg Pediatric Minimum: 1.0mCi Pediatric Maximum: 17.5mCi Reference: #2 Procedure: Bone Scan Medications for Procedure: Tc-99m MDP Adult Dose: 20mCi Pediatric Dose Calculation: .25mCi/kg Pediatric Minimum: 1.0mCi Pediatric Maximum: 17.5mCi Reference: #2 Procedure: Bone Marrow Imaging Medications for Procedure: Tc-99m Sulfur Colloid Adult Dose: 10mCi Pediatric Dose Calculation: .14mCi/kg Pediatric Minimum: 1.0mCi Pediatric Maximum: 10.0mCi Reference: #1 Procedure: Bowel Imaging (Meckel's) Medications for Procedure: Tc-99m Pertechnetate Adult Dose: 10mCi Pediatric Dose Calculation: .05mCi/kg Pediatric Minimum: 250uCi Pediatric Maximum: 3.5mCi Reference: #2 Procedure: Brain (Cerebral flow) Medications for Procedure: Tc-99m Pertechnetate Adult Dose: 20mCi Pediatric Dose Calculation: .28mCi/kg Pediatric Minimum: 4mCi Pediatric Maximum: 20.0mCi Reference: #1 Procedure: Brain (SPECT) Medications for Procedure: Tc-99m HMPAO(Ceretec) Adult Dose: 30mCi Pediatric Dose Calculation: .35mCi/kg Pediatric Minimum: 3mCi Pediatric Maximum: 25.0mCi Reference: #1 Procedure: Brain (DaTscan) Medications for Procedure: Tc-99m Ioflupane (DaTscan) *120 mg Potassium Iodide in 8 Oz. given PO one hour prior to dosing for procedure Adult Dose: 5mCi Procedure: Cisternogram Medications for Procedure: In-111 DTPA Adult Dose: 2mCi Pediatric Dose Calculation: .007mCi/kg Pediatric Minimum: 100uCi Pediatric Maximum: 500uCi Reference: #1 Procedure: Cystogram Medications for Procedure: Tc-99m Sulfur Colloid or MAA Adult Dose: 1.0mCi Procedure: Gastric Empty (Solid) Medications for Procedure: Tc-99m Sulfur Colloid (eggs/oatmeal/formula) Adult Dose: 1.0mCi Pediatric Dose Calculation: NMIS weight based calculation Pediatric Minimum: 250uCi Pediatric Maximum: 1.0mCi Reference: #5 Procedure: Gastro-esophageal Reflux Medications for Procedure: Tc-99m Sulfur Colloid Adult Dose: 1.0mCi Pediatric Dose Calculation: NMIS weight based calculation Pediatric Minimum: 250uCi Pediatric Maximum: 1.0mCi Reference: #5 Procedure: Hepatobiliary With or without EF Medications for Procedure: Tc-99m Mebrofenin *If using CCK (Sincalide) for EF- dose is .02mcg/kg Sincalide prepared using 5 ml Sterile water added to 5 mcg vial of Sincalide Adult Dose: 5.0mCi Pediatric Dose Calculation: .05mCi/kg Pediatric Minimum: 500uCi Pediatric Maximum: 3.5mCi Reference: #2 Procedure: Hepatobiliary With or without EF Medications for Procedure: Tc-99m Mebrofenin *Bilirubin >1.5mg Adult Dose: 8.0mCi Pediatric Dose Calculation: N/A Pediatric Minimum: 1.0mCi * Pediatric Maximum: 1.0mCi * Reference: #2 Procedure: Hepatic Artery Angiography (Sphere Mapping) Medications for Procedure: Tc-99m MAA Adult Dose: 4.0mCi Pediatric Dose Calculation: N/A Procedure: LeVeen Shunt Patency Medications for Procedure: Tc-99m Sulfur Colloid or MAA Adult Dose: 3.0mCi Procedure: Liver/Spleen Imaging Medications for Procedure: Tc-99m Sulfur Colloid Adult Dose: 5.0mCi Pediatric Dose Calculation: .05mCi/kg Pediatric Minimum: 200uCi Pediatric Maximum: 3.5mCi Reference: #1 Procedure: Lymphoscintigraphy (Breast) Medications for Procedure: Tc-99m Sulfur Colloid (filtered) Adult Dose: 250-550uCi Pediatric Dose Calculation: N/A Procedure: Lymphoscintigraphy (Breast) Medications for Procedure: Tc-99m Tilmanocept (Lymphoseek) Adult Dose: 250-550uCi Pediatric Dose Calculation: N/A Procedure: Lymphoscintigraphy (Melanoma) Medications for Procedure: Tc-99m Sulfur Colloid (filtered) Adult Dose: 500uCi Pediatric Dose Calculation: N/A Procedure: Lymphoscintigraphy (Melanoma) Medications for Procedure: Tc-99m Tilmanocept (Lymphoseek) Adult Dose: 500uCi Pediatric Dose Calculation: N/A Procedure: Lymphoscintigraphy (Melanoma/Breast - 24 hr Injection) Medications for Procedure: Tc-99m Sulfur Colloid (filtered) Adult Dose: 1.8mCi Pediatric Dose Calculation: N/A Procedure: Lymphoscintigraphy (Melanoma/Breast - 24 hr Injection) Medications for Procedure: Tc-99m Tilmanocept (Lymphoseek) Adult Dose: 1.8mCi Pediatric Dose Calculation: N/A Procedure: Lymphoscintigraphy (Lymphedema) Medications for Procedure: Tc-99m Tilmanocept (Lymphoseek) *Apply Topical Lidocaine 30 minutes prior to injections using 4% Anesthetic cream to both feet between webbing of 1st and 2nd toes. Tube is 5 grams of 4% lidocaine Adult Dose: 1.0mCi Pediatric Dose Calculation: N/A Comments: Split dose in (2) 1ml syringes ~500uCi/.1ml each Procedure: Metabolic Tumor Imaging Medications for Procedure: FDG-18 Adult Dose: 10-14mCi Pediatric Dose Calculation: .12mCi/kg Pediatric Minimum: 1.0mCi Pediatric Maximum: 8.4mCi Reference: #2 Procedure: Metabolic Tumor Imaging Medications for Procedure: F-18 Na Flouride Adult Dose: 10-15mCi Pediatric Dose Calculation: .06mCi/kg Pediatric Minimum: .5mCi Pediatric Maximum: 4.2mCi Reference: #2 Procedure: Metabolic Tumor Imaging Medications for Procedure: F-18 fluciclovine(Axumin) Adult Dose: 10.0mCi Pediatric Dose Calculation: N/A Procedure: Metabolic Brain Imaging Medications for Procedure: FDG-18 Adult Dose: 6mCi Pediatric Dose Calculation: .10mCi/kg Pediatric Minimum: 1.0mCi Pediatric Maximum: 5.0mCi Reference: #2 Procedure: Myocardial Perfusion Imaging (Same Day Protocol) Medications for Procedure: Tc-99m Tetrofosmin or Sestamibi *Pharmacologic Stress testing using 0.4mg Lexiscan (regadenoson) for all Myocardial Perfusion protocols Adult Dose: 10mCi (Rest) 30mCi(Stress) *8.0mCi(Rest) *24.0mCi(Stress) Pediatric Dose Calculation: .07mCi/kg, .28mCi/kg Pediatric Minimum: ---, --- Pediatric Maximum: 6.0mCi, 24.0mCi Reference: #1 Comments: *Only used during periods of Tc 99m shortages Procedure: Myocardial Perfusion Imaging (2 day protocol) Day 1(Rest) Day 2(Stress) Medications for Procedure: Tc-99m Tetrofosmin or Sestamibi Adult Dose: 20mCi(Rest), 30mCi(Stress) Pediatric Dose Calculation: .07mCi/kg, .28mCi/kg Pediatric Minimum: ---, --- Pediatric Maximum: 6.0mCi, 24.0mCi Reference: #1 Procedure: Myocardial Perfusion Imaging (Same Day Weight Based Dosing) Medications for Procedure: Tc-99m Tetrofosmin or Sestamibi Adult Dose: Up to 220lbs 10mCi (Rest) 30mCi (Stress) 220-285lbs 13mCi (Rest) 39mCi (Stress) 286-351lbs 16mCi (Rest) 48mCi (Stress) 352lbs and > 19mCi (Rest) 57mCi (Stress) Pediatric Dose Calculation: N/A Procedure: Myocardial Perfusion Imaging (Same Day Weight Based Dosing) Medications for Procedure: Tl-201 Thallous Chloride Adult Dose: 3.25mCi Pediatric Dose Calculation: .035mCi/kg Pediatric Maximum: 2.5mCi Reference: #1 Procedure: Myocardial Infarction Imaging Medications for Procedure: Tc-99m Pyrophosphate Adult Dose: 25.0mCi Pediatric Dose Calculation: N/A Procedure: Parathyroid Imaging Medications for Procedure: Tc-99m Sestamibi Adult Dose: 20.0mCi Pediatric Dose Calculation: .28mCi/kg Pediatric Minimum: 2.0mCi Pediatric Maximum: 20.0mCi Reference: #1 Procedure: Pulmonary Perfusion Imaging Medications for Procedure: Tc-99m MAA Adult Dose: 6.0mCi Pediatric Dose Calculation: .03mCi/kg Pediatric Minimum: 400uCi Pediatric Maximum: 2.1mCi Reference: #2 Procedure: Pulmonary Perfusion Imaging (Pumlonary HTN or Right to Left Shunts) Medications for Procedure: Tc-99m MAA Adult Dose: 1-2.5mCi in max of .2ml volume Pediatric Dose Calculation: N/A Procedure: Pulmonary Perfusion Imaging ( Patients - All Trimesters) Medications for Procedure: Tc-99m MAA Adult Dose: 3.0mCi Pediatric Dose Calculation: N/A Procedure: Pulmonary Ventilation Imaging Medications for Procedure: Xe-133 Gas Adult Dose: 10-30mCi Pediatric Dose Calculation: Adult dose Procedure: Pulmonary Ventilation Imaging Medications for Procedure: Tc-99m DTPA Adult Dose: 35mCi Pediatric Dose Calculation: Adult dose Procedure: Renal Imaging (Cortical) Medications for Procedure: Tc-99m DMSA Adult Dose: 5mCi Pediatric Dose Calculation: .05mCi/kg Pediatric Minimum: 500uCi Pediatric Maximum: 3.5mCi Reference: #2 Procedure: Renal Imaging (Function/ Lasix) Medications for Procedure: Tc-99m MAG 3 *(Lasix IV) 0.5 mg/kg in the adult patient using a minimum of 40 mg and a maximum of 80 mg. The dose for infants (0-1yr. old) is 1mg/kg. The dose for a child (1-16yr. old) is 0.5mg/kg, without a minimum Adult Dose: 10mCi Pediatric Dose Calculation: .15mCi/kg Pediatric Minimum: 500uCi Pediatric Maximum: 10.0mCi Reference: #2 Procedure: Thyroid Uptake/Imaging Medications for Procedure: I-123 Sodium Iodide capsules or solution Adult Dose: 200-500uCi Pediatric Dose Calculation: 5uCi/kg Pediatric Minimum: 50uCi Pediatric Maximum: 250uCi Reference: #4 Procedure: Thyroid Uptake/Imaging Medications for Procedure: I-131 Sodium Iodide Solution (uptake only) Adult Dose: 5-10uCi Pediatric Dose Calculation: N/A Procedure: Thyroid Uptake/Imaging Medications for Procedure: Tc-99m Pertechnetate (scan only) Adult Dose: 10mCi Pediatric Dose Calculation: .14mCi/kg Pediatric Minimum: 1.0mCi Pediatric Maximum: 10.0mCi Reference: #1 Procedure: Tumor Localization Imaging Medications for Procedure: Ga-67 Citrate Adult Dose: 10mCi Pediatric Dose Calculation: .14mCi/kg Pediatric Maximum: 10.0mCi Reference: #1 Procedure: Tumor Localization Imaging Medications for Procedure: In-111 Capromab Pendetide(Prostascint) Adult Dose: 6.0mCi Pediatric Dose Calculation: N/A Procedure: Tumor Localization Imaging (MIBG Scans) Medications for Procedure: I-123 Metaiodobenzylguanidine (MIBG) *120 mg Potassium Iodide in 8 Oz. given PO one hour prior to dosing for procedure Adult Dose: 10mCi Pediatric Dose Calculation: .14mCi/kg Pediatric Minimum: 1.0mCi Pediatric Maximum: 10.0mCi Reference: #2 Procedure: Tumor Localization Imaging (MIBG Scans) Medications for Procedure: I-131Metaiodobenzylguanidine (MIBG) *120 mg Potassium Iodide in 8 Oz. given PO one hour prior to dosing for procedure Adult Dose: 1.0mCi Pediatric Dose Calculation: N/A Procedure: Tumor Localization Imaging Medications for Procedure: In-111 Pentetreotide (Octreoscan) Adult Dose: 6.0mCi Pediatric Dose Calculation: .08mCi/kg Pediatric Maximum: 6.0mCi Reference: #1 Procedure: Tumor Localization Imaging Medications for Procedure: I-131 Sodium Iodide Adult Dose: 5.0mCi Pediatric Dose Calculation: N/A Procedure: Tumor Localization Imaging Medications for Procedure: I-123 Sodium Iodide Adult Dose: 1.5-2.0mCi Pediatric Dose Calculation: .028mCi/kg Reference: No reference information Procedure: Venogram (Upper/Lower Extremities) Medications for Procedure: Tc-99m Ultratag *Syringe prepped with Heparin Lock Flush(concentration of 100 units/ml) volume of ~.1ml used so dose is ~10 units of Heparin for each procedure Adult Dose: 30mCi Pediatric Dose Calculation: N/A Procedure: Ventricular Shunt Imaging Medications for Procedure: Tc-99m DTPA Adult Dose: 1.0mCi Pediatric Dose Calculation: N/A References for Pediatric Administration: Nuclear Medicine Procedure Manual, Division of Nuclear Medicine, [facility] of Radiology; gamma.[facility].edu/[email or web address].html [place] Consensus Guidelines for Administered Radiopharmaceutical Activities in Children andAdolescents; http://interactive.snm.org/docs/Pediatric dose consensus guidelines Final 2010.pdf ACR-SNM-SPR Practice guideline for the performance of Scintigraphy for inflammation and infection; www/acr.org.guidelines. Revised 2009 9.1 Jose PAULINE, Frederic WC, Barbara RD. Nuclear Medicine Diagnosis and Therapy. [employer]1996. Chapter 37, page 930, Table 1. Pediatric weight/dose database file NMIS system: Pediatric Dose = Adult dose (mCi) x Dose Factor Range of Weight (lbs) Dose Factor (%) 0.00-5.00 10 5.01-10.00 10 10.01-15.00 16 15.01-20.00 21 20.01-25.00 25 25.01-30.00 30 30.01-40.00 34 40.01-50.00 41 50.01-60.00 48 60.01-70.00 54 70.01-80.00 61 80.01-90.00 67 90.01-100.00 72 100.01-110.00 78 110.01-120.00 83 120.01-130.00 88 130.01-140.00 94 140.01-142.00 99 142.01-150.00 100 Attention: Any exam, radiopharmaceutical or dosage not included on this list requires physician approval and a written prescription Approved by: Medical Executive Committee and Imaging Services * Nohemy Ferreira RN - 10/13/2024 8:44 AM CDT Pt reports she was dc Tuesday after cdiff diagnosis, she reports taking her abx as prescribed but having trouble dealing with her loose stools and abdominal discomfort, pt has distended abdomen and reports frequent squirting when asked about her last bm, she states she did have a large loose bm this morning around 0500. documented in this encounter ED Notes * Agustin Tovar GN - 10/13/2024 11:27 AM CDT Patient up to bedside commode. Provided patient with wipes. * Missy Diehl RN - 10/13/2024 10:22 AM CDT Pt had a small formed bowel movement. Feces dumped in the toilet in the soiled utility. * Nohemy Ferreira RN - 10/13/2024 9:11 AM CDT Pt ambulates to bathroom, stool is soft but formed * Colt Tavera MD - 10/13/2024 8:30 AM CDT HISTORY OF PRESENT ILLNESS HPI This is a 59-year-old female history of liver cirrhosis, esophageal varices, status post recent colonoscopy performed 10/03/2024 were a polyp was found and removed also nonbleeding colonic angiodysplastic lesions and internal hemorrhoids noted. Since her colonoscopy patient now presents for concernsof abdominal cramping pain and loose stool/diarrhea with trace blood. Patient denies any vomiting. Indicates that her abdomen feels distended and bloated. States that she has abdominal cramping and feeling that she needs to strain when attempting use the restroom which makes the pain worse. Patient was recently admitted and discharged 10/08/2024 for concerns of GI hemorrhage. Had a CT performed at that time which showed evidence of duodenitis. Patient received pantoprazole and had GI consult. EGD performed 10/08/2024 showed a grade 2 esophageal varices hypertensive gastropathy and nonbleeding duodenal ulcers with clean bases likely secondary to prior cautery with no active bleeding identified and no immediate complications. During admission she was diagnosed with C. difficile colitis and placed on 14-day course of p.o. oral vancomycin which she has been taking. She does not believe that the medication is working feels like she may need another medication. Due to her persistent sy mptoms she presents to the emergency room. PAST MEDICAL HISTORY REVIEWED MEDICAL: Patient has a past medical history of Clostridium difficile enterocolitis (10/07/2024), CVD (cerebrovascular disease), Hemorrhagic diathesis, Hypothyroidism, Temporomandibular joint disorder, and Thromboembolism (CMS/HCC). SURGICAL: Patient has a past surgical history that includes hysterectomy; arthroscopic repair acl (Bilateral); ivc filter retrieval; laparotomy oopherectomy (Right); tubal ligation; intracranial aneurysm repair; pr removal implant deep (Right, 05/27/2021); pr esophagogastroduodenoscopy transoral diagnostic (N/A, 05/08/2024); pr esophagogastroduodenoscopy transoral diagnostic (N/A, 10/03/2024); pr colonoscopy flx dx w/collj spec when pfrmd (N/A, 10/03/2024); and esophagogastroduodenoscopy (N/A, 10/08/2024). ALLERGIES Sulfa (sulfonamide antibiotics) PHYSICAL EXAM INITIAL VS BP: 127/78 (10/13/24833), Heart Rate: 71 bpm (10/13/24833), Resp: 18 (10/13/24833), Pulse: 71(10/13/24833), Temp: 98 ??F (36.7 ??C) (10/13/24833), Temp src: Oral (10/13/24833), SpO2: 97 % (10/13/24833), Height: 5' 9 (175.3 cm) (10/13/24833), Weight: 64.9 kg (143 lb) (10/13/24833), BMI (Calculated): 21.12 (10/13/24833) No LMP recorded. Patient has had a hysterectomy. Physical Exam Vitals and nursing note reviewed. Constitutional: General: She is not in acute distress. Appearance: She is not diaphoretic. HENT: Head: Normocephalic and atraumatic. Nose: Nose normal. Mouth/Throat: Mouth: Mucous membranes are moist. Eyes: General: No scleral icterus. Right eye: No discharge. Left eye: No discharge. Extraocular Movements: Extraocular movements intact. Conjunctiva/sclera: Conjunctivae normal. Pupils: Pupils are equal, round, and reactive to light. Neck: Vascular: No JVD. Trachea: No tracheal deviation. Cardiovascular: Rate and Rhythm: Normal rate and regular rhythm. Pulses: Normal pulses. Heart sounds: No murmur heard. No friction rub. No gallop. Pulmonary: Effort: Pulmonary effort is normal. No respiratory distress. Breath sounds: No stridor. No wheezing, rhonchi or rales. Abdominal: General: There is distension. Palpations: Abdomen is soft. Tenderness: There is abdominal tenderness in the epigastric area. There is no guarding or rebound. Musculoskeletal: General: No swelling, tenderness, deformity or signs of injury. Normal range of motion. Cervical back: Normal range of motion and neck supple. No rigidity. Right lower leg: No edema. Left lower leg: No edema. Skin: General: Skin is warm and dry. Capillary Refill: Capillary refill takes less than 2 seconds. Coloration: Skin is not jaundiced or pale. Findings: No rash. Neurological: General: No focal deficit present. Mental Status: She is alert. Psychiatric: Behavior: Behavior normal. DIAGNOSTICS LAB: CBC WITH DIFFERENTIAL - Abnormal Result Value WBC 4.6 (*) RBC 4.10 (*) HEMOGLOBIN 10.9 (*) HEMATOCRIT 33.3 (*) MCV 81.2 (*) MCH 26.6 (*) MCHC 32.7 PLATELETS 217 MPV 11.3 RDW 18.9 (*) RDW-STDEV 55.5 (*) NEUTROPHILS 65 LYMPHOCYTES 20 (*) MONOCYTES 15 (*) EOSINOPHILS 0 BASOPHILS 1 IMMATURE GRANULOCYTES 0 NEUTROPHIL ABSOLUTE 2.97 LYMPHOCYTE ABSOLUTE 0.91 (*) MONOCYTE ABSOLUTE 0.67 (*) EOSINOPHIL ABSOLUTE 0.01 BASOPHILS ABSOLUTE 0.03 IMMATURE GRANULOCYTES ABSOLUTE 0.02 SMEAR REVIEWED: NN - No Action Needed COMPREHENSIVE METABOLIC PANEL - Abnormal SODIUM 142 POTASSIUM 3.6 CHLORIDE 106 CO2 24 CALCIUM 8.9 BUN 8 CREATININE 0.86 GLUCOSE 106 (*) TOTAL PROTEIN 6.3 (*) ALBUMIN 3.6 BILIRUBIN TOTAL 0.3 ALKALINE PHOSPHATASE 76 AST 29 ALT 23 GFR >60 ANION GAP 12 PROTIME-INR - Abnormal PROTIME 15.6 (*) INR 1.2 GI PATHOGEN PCR PANEL - Normal GI Pathogen PCR panel No nucleic acids detected. LIPASE - Normal LIPASE 32 LACTIC ACID - Normal LACTIC ACID 1.1 PTT - Normal PTT 30.7 CYTOLOGY, NON GYNE RADIOLOGY: US ASPIRATION ABDOMEN Radiologist Impression IMPRESSION: Please see below. Exam: US ASPIRATION ABDOMEN Date/Time of Exam: 10/13/2024 12:31 PM Reason For Exam: Ascites. This procedure was performed and preliminary findings dictated by MANDEEP Dominguez. Supervision and final interpretation by Dr. Patel. CONSENT: Risks, benefits, and alternatives of the procedure were discussed with the patient. Specific risks of paracentesis to include, but not limited to: bleeding, infection, pain, injury to bowel, damage to adjacent tissue/organs, . Procedure may need to be repeated if the fluid sample obtained is non-diagnostic. Written informed consent was obtained from the patient. Description of Procedure: A time out was performed to verify the patient and procedure. The patient was placed in a supine position, and ultrasound was utilized to evaluate the abdomen for the largest pocket of free fluid. The right lower quadrant was selected. The area was marked, prepped, and draped in the usual sterile fashion. All elements of maximal sterile barrier technique, including hand hygiene and cutaneous antisepsis with an antisepsis agent, were used. Local anesthesia was achieved with 1% lidocaine overlying the proposed needle course. A 10-cm 5 [place] Island[place] [employer] centesis catheter was inserted. 1750 ml of a clear yellow ascites was then drained via suction. The centesis catheter was removed in its entirety, the chlorhexidine cleansed from the skin, and a sterile dressing placed. The patient tolerated the procedure without complications. Estimated Blood Loss: None CT ABDOMEN PELVIS W CONTRAST Radiologist Impression IMPRESSION: Please see below. Exam: CT ABDOMEN PELVIS W CONTRAST Date/Time of Exam: 10/13/2024 10:36 AM Reason For Exam: Abdominal pain, acute, nonlocalized. Diagnosis: See Reason for Exam. Technique: CT of the abdomen and pelvis was performed following the administration of intravenous contrast. Contrast: IOPAMIDOL 61 % INTRAVENOUS SOLUTION (MULTI-DOSE BULK PACK) Given:75 mL. Comparison: 06/27/2024. FINDINGS: Embolization coils in left lower lobe. Cirrhotic liver. No focal liver lesions identified. Dilated portal vein. No gallbladder wall thickening. Moderate volume ascites. Collateral vessels. No adrenal nodules. Bilateral hypodense renal lesions compatible with cysts. Nonobstructing left renal stones. Bladder decompressed. There is question of gastric wall thickening. The small and large bowel are not distended. There is no evidence of acute appendicitis. There is diverticulosis without evidence of diverticulitis. There is streak artifact from a left hip arthroplasty. There are no destructive lytic or sclerotic bone lesions. IMPRESSION: 1. Cirrhotic liver. 2. Changes of portal hypertension including moderate volume ascites and collateral vasculature. 3. Question wall thickening of the stomach which can be seen with gastritis. 4. Small nonobstructing left renal stone. EKG: PROCEDURES Procedures MEDICAL DECISION MAKING AND PLAN OF CARE ED Course as of 10/15/24 0946 Sat Oct 13, [address] ABDOMEN PELVIS W CONTRAST IMPRESSION: 1. Cirrhotic liver. 2. Changes of portal hypertension including moderate volume ascites and collateral vasculature. 3. Question wall thickening of the stomach which can be seen with gastritis. 4. Small nonobstructing left renal stone. [HM] ED Course User Index [HM] Colt Tavera MD Medical Decision Making Amount and/or Complexity of Data Reviewed Labs: ordered. Radiology: ordered. Decision-making details documented in ED Course. Risk Prescription drug management. Clinical Scoring & Consults Summary * Abdominal pain and distension in the setting of cirrhosis and recent colonoscopy prompted CT and US to evaluate for potential causes. CT revealed ascites, gastritis, and renal stones though nonobstructive; US confirmed ascites and guided paracentesis for symptom relief and diagnostic evaluation. M anagement is consistent with standard of care for abdominal pain and ascites in cirrhotic patients.Patient feels much improved following paracentesis and fluid will be sent for evaluation to rule out such etiologies such as cancer infection though likely etiology secondary to liver cirrhosis whichis recently diagnosed. * While bowel obstruction could present with similar symptoms, the absence of bowel distension on CT, and the presence of ascites, make this diagnosis less likely. Peritonitis was considered, but thelack of significant peritoneal signs on exam made it less likely than gastritis and ascites secondary to cirrhosis. * Patient was discharged in stable condition with pain control and follow-up instructions after symptom improvement following paracentesis and with a plan to continue current C. difficile treatment, appropriate given outpatient management of cirrhosis and gastritis. * Shared decision-making regarding the plan of care with the patient, including risks and benefits of procedures and medications. Every reasonable effort was made to provide timely standard of care in an efficient manner despite high patient volume. Final evaluation no evidence of rebound or guarding Medications Administered During the ED Stay from 10/13/2024 0830 to 10/15/2024 0946 Date/Time Order Dose Route Action 10/13/2024 1315 CDT sodium chloride 0.9 % infusion 0 mL IV Stopped 10/13/2024 0949 CDT sodium chloride 0.9 % infusion -- IV New Bag 10/13/2024 1036 CDT iopamidoL (ISOVUE-300) 61% injection (drawn from multi-use bulk pack) 75 mL 75 mL IV Contrast Given 10/13/2024 1036 CDT sodium chloride flush injection 10 mL 10 mL IV Given Discharge Medication List as of 10/13/2024 1:16 PM CONTINUE these medications which have NOT CHANGED Details pantoprazole (PROTONIX) 40 mg Tablet, Delayed Release (E.C.) Take 1 Tablet (40 mg) by mouth 2 timesdaily., Disp-60 Tablet, R-0 vancomycin (VANCOCIN) 125 mg Capsule Take 1 Capsule (125 mg) by mouth every 6 hours for 12 days., Disp-48 Capsule, R-0 sodium chloride 0.9 % Parenteral Solution with iron sucrose 100 mg iron/5 mL Solution Inject by intravenous injection one time only. carvediloL (Coreg) 6.25 mg tablet Take 1 Tablet (6.25 mg) by mouth daily., Disp- 30 Tablet, R-3 HYDROcodone-acetaminophen (NORCO) 5-325 mg tablet Take by mouth. PRN tiZANidine (ZANAFLEX) 4 mg Tablet ondansetron (ZOFRAN ODT) 4 mg Tablet, Rapid Dissolve Take 4 mg by mouth every 6 hours as needed forNausea. IRON PS [id number]-[id number] ACID ORAL Take by mouth. montelukast (SINGULAIR) 10 mg tablet cetirizine (ZyrTEC) 10 mg tablet Take 10 mg by mouth daily. levothyroxine 50 mcg tablet Take 50 mcg by mouth daily. multivitamin (DAILY-MARIO) tablet Take 1 Tablet by mouth daily. vitamin E 400 unit capsule Take 400 Units by mouth daily. traZODone (DESYREL) 50 mg tablet Take 50 mg by mouth daily at bedtime. aspirin (ECOTRIN EC) 81 mg Tablet, Delayed Release (E.C.) Take 81 mg by mouth daily. LAST VS BP: 112/60 (10/13/24 1315), Heart Rate: 71 bpm (10/13/24 0834), Resp: 18 (10/13/24833), Pulse: 68(10/13/24 1315), Temp: 98 ??F (36.7 ??C) (10/13/24833), Temp src: Oral (10/13/24833), SpO2: 96 % (10/13/24 131) CLINICAL IMPRESSION Diagnoses Diagnosis Comment Added By Time Added Cirrhosis of liver with ascites, unspecified hepatic cirrhosis type (CMS/HCC) [K74.60, R18.8] Colt Tavera MD 10/13/2024 1:05 PM Abdominal distention [R14.0] Colt Tavera MD 10/13/2024 1:05 PM Gastritis without bleeding, unspecified chronicity, unspecified gastritis type [K29.70] Colt Tavera MD 10/13/2024 1:05 PM DISPOSITION, EDUCATION AND MEDICATION RECONCILIATION Medications reconciled. See after visit summary for patient education on discharged patients. ED Disposition ED Disposition Discharge Condition Stable User Colt Tavera MD Date/Time Sat Oct 13, 2024 1:04 PM Comment -- ATTESTATION STATEMENTS documented in this encounter Miscellaneous Notes * ED Bed Hold Comment Note - Sanjana Sepulveda RN - 10/13/2024 8:38 AM CDT Bed: E Expected date: 10/13/24 Expected time: 8:34 AM Means of arrival: Comments: triage documented in this encounter Plan of Treatment Pending Results Name Type Priority Associated Diagnoses Date /Time CYTOLOGY, NON GYNE Pathology Stat 2024 12:51 PM CDT Scheduled Orders Name Type Priority Associated Diagnoses Orde r Schedule CYTOLOGY, NON GYNE Pathology Pathology ONE TI ME for 1 Occurrences starting 10/13/2024 until 10/13/2024, 1 completed Scheduled Referrals Name Type Priority Associated Diagnoses Order Schedule AMB REFERRAL TO GASTROENTEROLOGY Outpatient Referral Routine Cirrhosis of liver with ascites, unspecified hepatic cirrhosis type (CMS/HCC) Abdominal distention Gastritis without bleeding, unspecified chronicity, unspecified gastritis type Ordered: 10/13/2024 documented as of this encounter Procedures Procedure Name Priority Date/Time Associated Diagnosis Comments US ASPIRATION ABDOMEN Stat 10/13/2024 1:00 PM CDT CELL COUNT WITH DIFFERENTIAL, BODY FLUID Stat 10/13/2024 12:51 PM CDT PROTEIN, BODY FLUID Stat 10/13/2024 1 2:51 PM CDT LACTATE DEHYDROGENASE, BODY FLUID Stat 10/13/2024 12:51 PM CDT GLUCOSE, BODY FLUID Stat 10/13/2024 1 2:51 PM CDT ALBUMIN LEVEL, BODY FLUID Stat 10/13/2024 12:51 PM CDT PTT Stat 10/13/2024 12:08 PM CDT PROTIME-INR Stat 10/13/2024 12:[address] ABDOMEN PELVIS W CONTRAST Stat 10/13/2024 10:36 AM CDT GI PATHOGEN PCR PANEL Stat 10/13/2024 9:10 AM CDT LACTIC ACID Stat 10/13/2024 9:09 AM CDT CBC WITH DIFFERENTIAL Stat 10/13/2024 9:09 AM CDT LIPASE Stat 10/13/2024 9:09 AM CDT COMPREHENSIVE METABOLIC PANEL Stat 10/13/2024 9:09 AM CDT documented in this encounter Results * US ASPIRATION ABDOMEN (10/13/2024 1:00 PM CDT) Anatomical Region Laterality Modality Abdomen Ultrasound 10/13/2024 12:3 1 PM CDT Impressions 10/13/2024 12:59 PM CDT IMPRESSION: Please see below. Exam: US ASPIRATION ABDOMEN Date/Time of Exam: 10/13/2024 12:31 PM Reason For Exam: Ascites. This procedure was performed and preliminary findings dictated by MANDEEP Dominguez. Supervision and final interpretation by Dr. Patel. CONSENT: Risks, benefits, and alternatives of the procedure were discussed with the patient. Specific risks of paracentesis to include, but not limited to: bleeding, infection, pain, injury to bowel, damage to adjacent tissue/organs, . Procedure may need to be repeated if the fluid sample obtained is non-diagnostic. Written informed consent was obtained from the patient. Description of Procedure: A time out was performed to verify the patient and procedure. The patient was placed in a supine position, and ultrasound was utilized to evaluate the abdomen for the largest pocket of free fluid. The right lower quadrant was selected. The area was marked, prepped, and draped in the usual sterile fashion. All elements of maximal sterile barrier technique, including hand hygiene and cutaneous antisepsis with an antisepsis agent, were used. Local anesthesia was achieved with 1% lidocaine overlying the proposed needle course. A 10-cm 5 [place] Islander Reading Roomeh centesis catheter was inserted. 1750 ml of a clear yellow ascites was then drained via suction. The centesis catheter was removed in its entirety, the chlorhexidine cleansed from the skin, and a sterile dressing placed. The patient tolerated the procedure without complications. Estimated Blood Loss: None Narrative Procedure Note Rizwan Patel MD - 10/13/2024 IMPRESSION: Please see below. Exam: US ASPIRATION ABDOMEN Date/Time of Exam: 10/13/2024 12:31 PM Reason For Exam: Ascites. This procedure was performed and preliminary findings dictated by MANDEEP Dominguez. Supervision and final interpretation by Dr. Patel. CONSENT: Risks, benefits, and alternatives of the procedure were discussed with the patient. Specific risks of paracentesis to include, but not limited to: bleeding, infection, pain, injury to bowel, damage to adjacent tissue/organs, . Procedure may need to be repeated if the fluid sample obtained is non-diagnostic. Written informed consent was obtained from the patient. Description of Procedure: A time out was performed to verify the patient and procedure. The patient was placed in a supine position, and ultrasound was utilized to evaluate the abdomen for the largest pocket of free fluid. The right lower quadrant was selected. The area was marked, prepped, and draped in the usual sterile fashion. All elements of maximal sterile barrier technique, including hand hygiene and cutaneous antisepsis with an antisepsis agent, were used. Local anesthesia was achieved with 1% lidocaine overlying the proposed needle course. A 10-cm 5 [place] Island[place] [employer] centesis catheter was inserted. 1750 ml of a clear yellow ascites was then drained via suction. The centesis catheter was removed in its entirety, the chlorhexidine cleansed from the skin, and a sterile dressing placed. The patient tolerated the procedure without complications. Estimated Blood Loss: None Colt Tavera MD US ORDERABLES Final Result * ALBUMIN LEVEL, BODY FLUID (10/13/2024 12:51 PM CDT) ALBUMIN, FLD 0.8 g/dL 10/13/2024 2:14 PM CDT [facility] Body fluid ENTIRE SEROUS MEMBRANE OF PERITONEUM / Unknown Collection / Unknown 10/13/2024 12:51 PM CDT 10/13/2024 1:17 PM CDT Narrative [facility] - 10/13/2024 2:14 PM CDT Interpretive Criteria: Transudate: Serum-Ascites gradient >1.1 g/dL Exudate: Serum-Ascites gradient <1.1 g/dL The reference range and other method performance specifications are unavailable for this body fluid. Comparison of this result with the concentration in the blood, serum or plasma is recommended. Colt Tavera MD BODY FLUIDS AND STOOLS Final Result [facility] CLIA # [id number] [address] [place] [id number] * GLUCOSE, BODY FLUID (10/13/2024 12:51 PM CDT) GLUCOSE, FLD 107 mg/dL 10/13/2024 2:05 PM CDT [facility] Body fluid ENTIRE SEROUS MEMBRANE OF PERITONEUM / Unknown Collection / Unknown 10/13/2024 12:51 PM CDT 10/13/2024 1:17 PM CDT [facility] - 10/13/2024 2:05 PM CDT Interpretive Criteria: Transudate: Fluid/Serum Ratio >0.5 Exudate: Fluid/Serum Ratio <0.5 or Fluid Glucose <60 mg/dL The reference range and other method performance specifications are unavailable for this body fluid. Comparison of this result with the concentration in the blood, serum or plasma is recommended. Colt Tavera MD BODY FLUIDS AND STOOLS Final Result Performing Organization Address [facility] Co de Phone Number [facility] CLIA # [id number] [address] [place] [phone] * PROTEIN, BODY FLUID (10/13/2024 12:51 PM CDT) PROTEIN, FLD 0.9 g/dL 10/13/2024 2:14 PM CDT [facility] Body fluid ENTIRE SEROUS MEMBRANE OF PERITONEUM / Unknown Collection / Unknown 10/13/2024 12:51 PM CDT 10/13/2024 1:17 PM CDT [facility] - 10/13/2024 2:14 PM CDT Interpretive Criteria: Transudate: <2.0 g/dL Exudate: >2.0 g/dL The reference range and other method performance specifications are unavailable for this body fluid. Comparison of this result with the concentration in the blood, serum, or plasma is recommended. us Colt Tavera MD BODY FLUIDS AND STOOLS Final Result Performing Organization Address [facility]/ZIP Co de Phone Number [facility] CLIA # [id number] [phone] [address] [id number] * LACTATE DEHYDROGENASE, BODY FLUID (10/13/2024 12:51 PM CDT) Pathologist [facility] LD, FLD 36 U/L 10/13/2024 2:05 PM CDT [facility] Body fluid ENTIRE SEROUS MEMBRANE OF PERITONEUM / Unknown Collection / Unknown 10/13/2024 12:51 PM CDT 10/13/2024 1:17 PM CDT [facility] - 10/13/2024 2:05 PM CDT Interpretive Criteria: Transudate: < 200 U/L or Fluid/Serum Ratio < 0.6 Exudate: > 200 U/L or Fluid/Serum Ratio > 0.6 The reference range and other method performance specifications are unavailable for this body fluid. Comparison of this result with the concentration in the blood, serum or plasma is recommended. Colt Tavera MD BODY FLUIDS AND STOOLS Final Result [facility] CLIA # [id number] [address] [place] [id number] * CELL COUNT WITH DIFFERENTIAL, BODY FLUID (10/13/2024 12:51 PM CDT) [facility] APPEARANCE, BODY FLUID Clear 10/13/2024 1:45 PM CDT [facility] COLOR, FLD Yellow 10/13/2024 1:45 PM CDT [facility] TOTAL NUCLEATED CELLS, FLD (AUTO) 122 No Ref Range Estab /ul 10/13/2024 1:45 PM CDT [facility] TOTAL RBC'S, FLD (AUTO) <3,000 No Ref Range Estab /ul 10/13/2024 1:45 PM CDT [facility] NEUTROPHILS, FLD 1 No Ref Range Estab % 10/13/2024 1:45 PM CDT [facility] LYMPHOCYTE, FLD 67 No Ref Range Estab % 10/13/2024 1:45 PM CDT [facility] MONOCYTE/MACROPH AGE, FLD 24 No Ref Range Estab % 10/13/2024 1:45 PM CDT [facility] MESOTHELIAL FLD 8 No Ref Range Estab % 10/13/2024 1:45 PM CDT [facility] Body fluid ENTIRE SEROUS MEMBRANE OF PERITONEUM / Unknown Collection / Unknown 10/13/2024 12:51 PM CDT 10/13/2024 1:09 PM CDT us Colt Tavera MD BODY FLUIDS AND STOOLS Final Result Performing Organization Address [facility] Co de Phone Number [facility] CLIA # [id number] [facility] [address] * PTT (10/13/2024 12:08 PM CDT) PTT 30.7 24.8 - 37.2 seconds 10/13/2024 12:23 PM CDT [facility] Blood Venipuncture / Unknown 10/13/2024 12:08 PM CDT 10/13/2024 12:10 PM CDT Narrative [facility] - 10/13/2024 12:23 PM CDT Therapeutic Range: Hi-level PE/DVT heparin protocol 80.1 - 95.0 sec Lo-level PE/DVT heparin protocol 70.1 - 85.0 sec Cardiac Heparin Protocol 70.1 - 100.0 sec Colt Tavera MD HEMATOLOGY ORDERABLES Final Result Performing Organization Address [facility] Co de Phone Number [facility] CLIA # [id number] [address] [address] * (ABNORMAL) PROTIME-INR (10/13/2024 12:08 PM CDT) PROTIME 15.6(H) 12.7 - 14.9 Seconds 10/13/2024 12:23 PM CDT [facility] INR 1.2 0.8 - 1.2 10/13/2024 12:23 PM CDT [facility] Blood Venipuncture / Unknown 10/13/2024 12:08 PM CDT 10/13/2024 12:10 PM CDT Narrative [facility] - 10/13/2024 12:23 PM CDT Expected Values for INR: DVT/PE Goal INR 2.5; range 2.0 - 3.0 Valve Replacement Tissue Goal INR 2.5; range 2.0 - 3.0 Valve Replacement Mechanical Goal INR 3.0; range 2.5 - 3.5 POST-NM Goal INR 2.5; range 2.0 - 3.0 or Goal INR 3.0; range 2.5 - 3.5 Atrial Fibrillation Goal INR 2.5; range 2.0 - 3.0 Ischemic Stroke Goal INR 2.5; range 2.0 - 3.0 Colt Tavera MD HEMATOLOGY ORDERABLES Final Result [facility] CLIA # [id number] [address] [place] [phone] * CT ABDOMEN PELVIS W CONTRAST (10/13/2024 10:36 AM CDT) Anatomical Region Laterality Modality Abdomen Computed Tomogra phy 10/13/2024 10:3 7 AM CDT Impressions 10/13/2024 10:43 AM CDT IMPRESSION: Please see below. Exam: CT ABDOMEN PELVIS W CONTRAST Date/Time of Exam: 10/13/2024 10:36 AM Reason For Exam: Abdominal pain, acute, nonlocalized. Diagnosis: See Reason for Exam. Technique: CT of the abdomen and pelvis was performed following the administration of intravenous contrast. Contrast: IOPAMIDOL 61 % INTRAVENOUS SOLUTION (MULTI-DOSE BULK PACK) Given:75 mL. Comparison: 06/27/2024. FINDINGS: Embolization coils in left lower lobe. Cirrhotic liver. No focal liver lesions identified. Dilated portal vein. No gallbladder wall thickening. Moderate volume ascites. Collateral vessels. No adrenal nodules. Bilateral hypodense renal lesions compatible with cysts. Nonobstructing left renal stones. Bladder decompressed. There is question of gastric wall thickening. The small and large bowel are not distended. There is no evidence of acute appendicitis. There is diverticulosis without evidence of diverticulitis. There is streak artifact from a left hip arthroplasty. There are no destructive lytic or sclerotic bone lesions. IMPRESSION: 1. Cirrhotic liver. 2. Changes of portal hypertension including moderate volume ascites and collateral vasculature. 3. Question wall thickening of the stomach which can be seen with gastritis. 4. Small nonobstructing left renal stone. Narrative Procedure Note Abhilash Herbert MD - 10/13/2024 IMPRESSION: Please see below. Exam: CT ABDOMEN PELVIS W CONTRAST Date/Time of Exam: 10/13/2024 10:36 AM Reason For Exam: Abdominal pain, acute, nonlocalized. Diagnosis: See Reason for Exam. Technique: CT of the abdomen and pelvis was performed following the administration of intravenous contrast. Contrast: IOPAMIDOL 61 % INTRAVENOUS SOLUTION (MULTI-DOSE BULK PACK) Given:75 mL. Comparison: 06/27/2024. FINDINGS: Embolization coils in left lower lobe. Cirrhotic liver. No focal liver lesions identified. Dilated portal vein. No gallbladder wall thickening. Moderate volume ascites. Collateral vessels. No adrenal nodules. Bilateral hypodense renal lesions compatible with cysts. Nonobstructing left renal stones. Bladder decompressed. There is question of gastric wall thickening. The small and large bowel are not distended. There is no evidence of acute appendicitis. There is diverticulosis without evidence of diverticulitis. There is streak artifact from a left hip arthroplasty. There are no destructive lytic or sclerotic bone lesions. IMPRESSION: 1. Cirrhotic liver. 2. Changes of portal hypertension including moderate volume ascites and collateral vasculature. 3. Question wall thickening of the stomach which can be seen with gastritis. 4. Small nonobstructing left renal stone. us Colt Tavera MD CT ORDERABLES Final Result * GI PATHOGEN PCR PANEL (10/13/2024 9:10 AM CDT) Pathologist [facility] GI Pathogen PCR panel NOT DETECTED No nucleic acids detected. 10/13/2024 11:33 AM CDT [facility] Stool STOOL SPECIMEN / Unknown Collection / Unknown 10/13/2024 9:10 AM CDT 10/13/2024 10:06 AM CDT Narrative [facility] - 10/13/2024 11:33 AM CDT The Film Array GI Panel is a [...] Cryptosporidium Cyclospora cayetanensis Entamoeba histolytica Giardia duodenalis Colt Tavera MD MICROBIOLOGY - GENERAL ORDERABLES Final Result [facility] # [id number] [address] [place] [phone] * LACTIC ACID (10/13/2024 9:09 AM CDT) Pathologist [facility] LACTIC ACID 1.1 <=2.0 mmol/L 10/13/2024 9:34 AM CDT [facility] Blood Venipuncture / Unknown 10/13/2024 9:09 AM CDT 10/13/2024 9:11 AM CDT Colt Tavera MD CHEMISTRY ORDERABLES F inal Result Performing Organization Address [facility] Co de Phone Number [facility] CLIA # [id number] [address] [address] * LIPASE (10/13/2024 9:09 AM CDT) Pathologist [facility] LIPASE 32 13 - 60 U/L 10/13/2024 9:47 AM CDT [facility] Blood Venipuncture / Unknown 10/13/2024 9:09 AM CDT 10/13/2024 9:13 AM CDT Colt Tavera MD CHEMISTRY ORDERABLES F inal Result Performing Organization Address [facility] Co de Phone Number [facility] [employer] [facility] CLIA # [id number] [facility] [address] * (ABNORMAL) COMPREHENSIVE METABOLIC PANEL (10/13/2024 9:09 AM CDT) [facility] SODIUM 142 136 - 145 mmol/L 10/13/2024 9:47 AM T [facility] POTASSIUM 3.6 3.5 - 5.1 mmol/L 10/13/2024 9:47 AM CDT [facility] CHLORIDE 106 98 - 107 mmol/L 10/13/2024 9:47 AM T [facility] CO2 24 22 - 29 mmol/L 10/13/2024 9:47 AM CDT [facility] CALCIUM 8.9 8.8 - 10.2 mg/dL 10/13/2024 9:47 AM T [facility] BUN 8 8 - 23 mg/dL 10/13/2024 9:47 AM T [facility] CREATININE 0.86 0.51 - 0.95 mg/dL 10/13/2024 9:47 AM T [facility] GLUCOSE 106(H) 74 - 99 mg/dL 10/13/2024 9:47 AM CDT [facility] TOTAL PROTEIN 6.3(L) 6.4 - 8.3 g/dL 10/13/2024 9:47 AM CDT [facility] ALBUMIN 3.6 3.5 - 5.2 g/dL 10/13/2024 9:47 AM CDT [facility] BILIRUBIN TOTAL 0.3 0.0 - 1.0 mg/dL 10/13/2024 9:47 AM CDT [facility] ALKALINE PHOSPHATASE 76 35 - 104 U/L 10/13/2024 9:47 AM CDT [facility] AST 29 10 - 35 U/L 10/13/2024 9:47 AM CDT [facility] ALT 23 <=35 U/L 10/13/2024 9:47 AM T [facility] GFR >60 >=60 mL/min/1.7 3 sq meter 10/13/2024 9:47 AM T [facility] Comment:eGFR calculated with 2020 CKD-EPI equation. Vegetarian diet, extremely high or low muscle mass, and may affect results. Cystatin C with Glomerular Filtration Rate is a suitable alternative for these patients. ANION GAP 12 9 - 20 mmol/L 10/13/2024 9:47 AM T [facility] Blood Venipuncture / Unknown 10/13/2024 9:09 AM CDT 10/13/2024 9:13 AM CDT us Colt Tavera MD CHEMISTRY ORDERABLES F inal Result [facility] CLIA # [id number] [address] [place] [phone] * (ABNORMAL) CBC WITH DIFFERENTIAL (10/13/2024 9:09 AM CDT) Pathologist [facility] WBC 4.6(L) 4.8 - 10.8 K/uL 10/13/2024 9:20 AM [facility] RBC 4.10(L) 4.20 - 5.40 M/uL 10/13/2024 9:20 AM [facility] HEMOGLOBIN 10.9(L) 12.0 - 16.0 g/dL 10/13/2024 9:20 AM [facility] HEMATOCRIT 33.3(L) 36.0 - 46.0 % 10/13/2024 9:20 AM [facility] MCV 81.2(L) 84.0 - 103.0 fL 10/13/2024 9:20 AM [facility] MCH 26.6(L) 27.0 - 34.0 pg 10/13/2024 9:20 AM [facility] MCHC 32.7 30.0 - 35.0 g/dL 10/13/2024 9:20 AM [facility] PLATELETS 217 140 - 440 K/uL 10/13/2024 9:20 AM [facility] MPV 11.3 8.9 - 12.8 fL 10/13/2024 9:20 AM [facility] RDW 18.9(H) 11.0 - 14.5 % 10/13/2024 9:20 AM [facility] RDW-STDEV 55.5(H) 37.0 - 54.0 fL 10/13/2024 9:20 AM [facility] NEUTROPHILS 65 42 - 75 % 10/13/2024 9:20 AM [facility] LYMPHOCYTES 20(L) 24 - 44 % 10/13/2024 9:20 AM [facility] MONOCYTES 15(H) 2 - 10 % 10/13/2024 9:20 AM [facility] EOSINOPHILS 0 0 - 7 % 10/13/2024 9:20 AM [facility] BASOPHILS 1 0 - 1 % 10/13/2024 9:20 AM [facility] IMMATURE GRANULOCYTES 0 0 - 2 % 10/13/2024 9:20 AM CDT [facility] NEUTROPHIL ABSOLUTE 2.97 2.00 - 8.00 K/uL 10/13/2024 9:20 AM CDT [facility] LYMPHOCYTE ABSOLUTE 0.91(L) 1.20 - 4.00 K/uL 10/13/2024 9:20 AM T [facility] MONOCYTE ABSOLUTE 0.67(H) 0.10 - 0.60 K/uL 10/13/2024 9:20 AM CDT [facility] EOSINOPHIL ABSOLUTE 0.01 0.00 - 0.70 K/uL 10/13/2024 9:20 AM CDT [facility] BASOPHILS ABSOLUTE 0.03 0.00 - 0.20 K/uL 10/13/2024 9:20 AM T [facility] IMMATURE GRANULOCYTES ABSOLUTE 0.02 0.00 - 0.10 K/uL 10/13/2024 9:20 AM T [facility] SMEAR REVIEWED: NN - No Action Needed 10/13/2024 9:20 AM T [facility] Blood Venipuncture / Unknown 10/13/2024 9:09 AM CDT 10/13/2024 9:11 AM CDT Colt Tavera MD HEMATOLOGY ORDERABLES Final Result Performing Organization Address City/State/[facility] Co de Phone Number [facility] CLIA # [id number] [address] [place] [phone] documented in this encounter Visit Diagnoses Diagnosis Cirrhosis of liver with ascites, unspecified hepatic cirrhosis type (CMS/HCC)- Primary Abdominal distention Flatulence, eructation, and gas pain Gastritis without bleeding, unspecified chronicity, unspecified gastritis type documented in this encounter Administered Medications Inactive Administered Medications - up to 3 most recent administrations Medication Order MAR Action Action Date Dose Rate Site iopamidoL (ISOVUE-300) 61% injection (drawn from multi-use bulk pack) 75 mL 75 mL, IV, INTRA-PROCEDURE ONCE, 1 dose, Starting on 10/13/24 at 1010, Until 10/13/24 at 1036, Routine Contrast Given 10/13/2024 10:36 AM CDT 75 mL sodium chloride 0.9 % infusion IV, at 150 mL/hr, CONTINUOUS, Starting on 10/13/24 at 0930, Until 10/13/24 at 1528, Stat New Bag 10/13/2024 9:49 AM CDT 150 mL/hr sodium chloride flush injection 10 mL 10 mL, IV, EVERY 5 MINUTES PRN, 1 dose, Starting on 10/13/24 at 1010, Until 10/13/24 at 1036, NS flushes for Imaging scan q 5 min PRN, Routine Given 10/13/2024 10:36 AM CDT 10 mL documented in this encounter Active and Recently Administered Medications Times are shown in CDT. Scheduled Medication Order 10/11/2024 10/12/2024 10/13/2024 iopamidoL (ISOVUE-300) 61% injection (drawn from multi-use bulk pack) 75 mL (COMPLETED) 75 mL, IV, INTRA-PROCEDURE ONCE, 1 dose, Starting on 10/13/24 at 1010, Until 10/13/24 at 1036, Routine 1036 (Contrast Given - Provider: Mariann Sepulveda, RT) Continuous Medication Order 10/11/2024 10/12/2024 10/13/2024 sodium chloride 0.9 % infusion IV, at 150 mL/hr, CONTINUOUS, Starting on 10/13/24 at 0930, Until 10/13/24 at 1528, Stat 0949 (New Bag - Prov ider: Nohemy Ferreira RN)[id number] (Stopped - Provider: Nohemy Ferreira RN) PRN Medication Order 10/11/2024 10/12/2024 10/13/2024 sodium chloride flush injection 10 mL (COMPLETED) 10 mL, IV, EVERY 5 MINUTES PRN, 1 dose, Starting on 10/13/24 at 1010, Until 10/13/24 at 1036, NS flushes for Imaging scan q 5 min PRN, Routine 1036 (Given - Provid er: Mariann Sepulveda, RT) documented in this encounter Additional Health Concerns Infection Onset Date Last Indicated Resolved Time C Diff 10/07/2024 10/07/2024 R/O GI Pathogen 10/13/2024 10/13/2024 10/13/2024 1 1:33 AM CDT documented as of this encounter Care Teams Civil Transportation Engineer Relationship Specialty Start Date End Date Aguila Castro MD [address] [phone] PCP - General Family Practice 05/26/21 documented as of this encounter
[2024-10-16] VITALS (11 sets, daily range): BP systolic 101–144; BP diastolic 60–104; PULSE 94–107; RESP 16–19; TEMP 36.7–37.1; O2SAT 98–100; BMI 21.1
--- OUTSIDE RECORDS SUMMARY | 2024-10-16 09:24 | XMS_ITS | Encounter Summary ---
Author Organization [facility] Address 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
--- OUTSIDE RECORDS SUMMARY | 2024-10-16 09:24 | XMS_ITS | Encounter Summary ---
Author Organization [facility] Address [address] [place] [address] Care Team Providers Care Manager Sustainability Name Role Phone Unavailable Primary Care Provider Unavailabl e Encounter Details Date Type Department Care Team (Latest Contact Info) Description 06/27/1998 Outpatient Historical [facility] Oral and Maxillo Surgery[address] [place] [address] Bill Box, DDS NO ADDRESS ON FILE Dental caries (Primary Dx); Unspecified disorder of the teeth and supporting structures; Periapical abscess Social History Tobacco Use Types Packs/Day Years Used Date Smoking Tobacco: Never Assessed Comments Unknown Sex and Gender Information Value Date Recorded Sex Assigned at Not on file 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
--- OUTSIDE RECORDS SUMMARY | 2024-10-16 09:24 | XMS_ITS | Encounter Summary ---
Author Organization [facility] Address [address] [place] [address] Care Team Providers Care Fermentologist Name Role Phone Unavailable Primary Care Provider Unavailabl e Encounter Details Date Type Department Care Team (Latest Contact Info) Description 12/09/2005 Outpatient Historical [facility] Orthopedics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
--- OUTSIDE RECORDS SUMMARY | 2024-10-16 09:24 | XMS_ITS | Encounter Summary ---
Author Organization [facility] Address 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
--- OUTSIDE RECORDS SUMMARY | 2024-10-16 09:24 | XMS_ITS | Patient Health Record ---
Author Organization [facility] Address [address] [place] [address] Care Team Providers Care Food Concession Manager Name Role Phone Tawnya Lane DO Primary Care Provider Unavailab Anton Mckinley Unavailable [phone] Migration, Provider Unavailable Unavailable Elida James Unavailable Ai Benson Unavailable [phone] Janet, Erick Unavailable [phone] Allergies Allergen (clinical drug ingredient) Drug/Non Drug Allergy documented on EMR Reaction Allergy Type Onset Date Status Sulfur Rash Drug Allergy Active Results Component Value Reference Range Flag Notes Fluoro Needle For Placement - Non-Spine 08177 Reviewed date:03/29/2024 02:42:29 PM Interpretation: Performing Lab: Notes/Report: Urine Drug Screen (cup read) - 63813 Reviewed date:07/25/2024 12:33:05 PM Interpretation: Performing Lab: Notes/Report: AMP - MARLENA - BUP - BZO - MDMA - OPI + PCP - OXY + MTD - MAMP - Urine Drug Screen (cup read) - 92252 Reviewed date:07/18/2024 12:37:34 PM Interpretation: Performing Lab: Notes/Report: OPI + Urine Drug Screen (cup read) - 57578 Reviewed date:05/24/2024 04:13:33 PM Interpretation: Performing Lab: Notes/Report: OPI + Urine Drug Screen (cup read) - 00271 Reviewed date:09/27/2024 10:16:46 AM Interpretation: Performing Lab: Notes/Report: OPI + zzzUrine Drug Screen (confir mation by instrument) - 61392 Reviewed date:01/31/2024 04:56:57 PM Interpretation: Performing Lab: Notes/Report: Urine Confirmation Panel (in strument) - [id number] Reviewed date:04/24/2024 10:44:16 AM Interpretation: Performing Lab: [...] Administration. Urine Confirmation Panel (in strument) - 22996 Reviewed date:08/01/2024 02:51:22 PM Interpretation: Performing Lab: [...] Administration. 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) 08/04/19 Active confirmed Problem Degeneration of lumbar intervertebral disc (91163328) Other intervertebral disc degeneration, lumbar region (M51.36) 08/04/19 Active confirmed Problem Abnormal gait (77461100) Unspecified abnormalities of gait and mobility (R26.9) 08/04/19 Active confirmed Problem Bilateral sacroiliitis (3105562790) Bilateral sacroiliitis (M46.1) Active confirmed Problem Sacroiliitis (28492750) Sacroiliitis (M46.1) Active confirmed Problem Abnormal gait (10445467) Abnormality of gait and mobility (R26.9) Active confirmed Problem Radiculopathy due to lumbar intervertebral disc disorder (793118904866979) 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 SI Joint w/ imaging geraldine dance (CT or fluoroscopy) - 85194 01/04/2024 01/04/2024 N/A Inj. SI Joint w/ imaging geraldine dance (CT or fluoroscopy) - 67584 03/29/2024 03/29/2024 N/A Inj. SI Joint w/ imaging geraldine dance (CT or fluoroscopy) - 46855 06/14/2024 06/14/2024 04-07 unav Inj. Trigger Points, 3 or mo re muscles - 08/22/2024 08/22/2024 N/A Encounters Encounter Location Date Provider Diagnosis [facility] [place] [address] [place] [address] 11/02/2023 Anton Dwyer [facility] [place] [address] [place] [address] 12/14/2023 Anton Dwyer [facility] [address] [place] [address] 01/04/2024 Anton Dwyer Bilateral sacroiliitis M46.1 [facility] [place] [address] [place] [address] 01/25/2024 Anton Millert Chronic pain syndrom e G89.4 ; Hip pain, left M25.552 ; Pain in right hip M25.551 ; Intervertebral disc disorder with radiculopathy of lumbar region M51.16 ; Abnormality of gait and mobility R26.9 and exterminator helper (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 of opiate analgesic Z79.891 [facility] [place] [address] [place] [address] 02/23/2024 Erick Janet Chronic pain syndrom e G89.4 ; Other intervertebral disc degeneration, thoracic region M51.34 ; Degeneration of intervertebral disc of lumbar region with discogenic back pain M51.360 ; Cyst of kidney, acquired N28.1 and USP (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 of opiate analgesic Z79.891 [facility] [address] [place] [address] 03/29/2024 Anton Dwyer Sacroiliitis M46.1 [facility] [place] [address] [place] [address] 04/19/2024 Ai Benson Chronic pain syndrom e G89.4 ; Other intervertebral disc degeneration, thoracic region M51.34 ; Degeneration of intervertebral disc of lumbar region with discogenic back pain M51.360 ; Cyst of kidney, acquired N28.1 and USP (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 of opiate analgesic Z79.891 [facility] [place] [address] [place] [address] 05/24/2024 Ai Benson Chronic pain syndrom e G89.4 ; Other intervertebral disc degeneration, thoracic region M51.34 ; Degeneration of intervertebral disc of lumbar region with discogenic back pain M51.360 ; Cyst of kidney, acquired N28.1 and exterminator helper (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 of opiate analgesic Z79.891 [facility] [address] [place] [address] 06/14/2024 Anton Dwyer Hip pain, left M25.552 [facility] [address] [address] 07/18/2024 Anton Millert Chronic pain syndrom e G89.4 ; Other intervertebral disc degeneration, thoracic region M51.34 ; Degeneration of intervertebral disc of lumbar region with discogenic back pain M51.360 ; Muscle pain, myofascial M79.18 ; Cyst of kidney, acquired N28.1 and USP (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 of opiate analgesic Z79.891 [facility] [address] [address] 07/25/2024 Anton Dwyer Chronic pain syndrom e G89.4 ; Other intervertebral disc degeneration, thoracic region M51.34 ; Degeneration of intervertebral disc of lumbar region with discogenic back pain M51.360 ; Cyst of kidney, acquired N28.1 ; USP (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 of opiate analgesic Z79.891 and Muscle pain, myofascial M79.18 [facility] [address] [address] 08/22/2024 Anton Andersonfft Chronic pain syndrom e G89.4 ; Other intervertebral disc degeneration, thoracic region M51.34 ; Degeneration of intervertebral disc of lumbar region with discogenic back pain M51.360 ; Muscle pain, myofascial M79.18 ; Cyst of kidney, acquired N28.1 and USP (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 of opiate analgesic Z79.891 [facility] [address] [address] 09/27/2024 Ai Benson Chronic pain syndrom e G89.4 ; Other intervertebral disc degeneration, thoracic region M51.34 ; Degeneration of intervertebral disc of lumbar region with discogenic back pain M51.360 ; Cyst of kidney, acquired N28.1 and exterminator helper (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 of opiate analgesic Z79.891 [facility] 0 12/17/2023 Provider Migration [facility] 0 12/18/2023 Provider Migration [facility] [place] [address] [place] [address] 02/13/2024 Anton Dwyer [facility] [place] [address] [place] [address] 02/13/2024 Anton Dwyer [facility] [place] [facility] [address] [facility] [place] [address] 02/23/2024 Anton Dwyer Chronic pain syndrom e G89.4 [facility] [place] [address] [place] [address] 02/23/2024 Erick Gonzales [facility] [place] [address] [place] [address] 02/24/2024 Anton Dwyer [facility] [address] [facility] [place] [address] 03/07/2024 Anton Dwyer Chronic pain syndrom e G89.4 [facility] [place] [address] [place] [address] 04/19/2024 Elida Esparza-Pric e [facility] [place] [address] [place] [address] 05/24/2024 Anton Dwyer [facility] [place] [address] [place] [address] 09/05/2024 Anton Dwyer Chronic pain syndrom e G89.4 [facility] [place] [address] [place] [address] 09/27/2024 Anton Dwyer Other intervertebral disc degeneration, [...] 03/07/2024 Chronic pain syndrome (ICD-10 - G89.4) 03/29/2024 Sacroiliitis (ICD-10 - M46.1) 04/19/2024 Chronic pain syndrome (ICD-10 - G89.4) [...] effects are noted. Last UDS and [place] LAND ACQUISITION SPECIALIST reviewed today. Patient is advised that best long-term goals include increased activity, core strengthening, proper weight management, coping strategies, avoidance of painful triggers, and targeted interventional therapy. We will see the patient for routine follow up in accordance with all clinic policies. We did remind patient today of current guidelines to decrease opioid when possible. We will continue to stress nonopioid treatment. 02/23/2024 Chronic pain syndrome (ICD-10 - G89.4) [...] a month and half for the injection. 05/24/2024 Chronic pain syndrome (ICD-10 - G89.4) [...] effects are noted. Last UDS and [place] LAND ACQUISITION SPECIALIST reviewed today. Patient is advised that best [...] 06/14/2024 Hip pain, left (ICD-10 - M25.552) 07/18/2024 Chronic pain syndrome (ICD-10 - G89.4) [...] disc degeneration, thoracic region (ICD-10 - M51.34) 07/25/2024 Chronic pain syndrome (ICD-10 - G89.4) [...] to abide by our urine testing policy. 08/22/2024 Chronic pain syndrome (ICD-10 - G89.4) [...] effects are noted. Last UDS and [place] LAND ACQUISITION SPECIALIST reviewed today. Patient is advised that best [...] disc degeneration, thoracic region (ICD-10 - M51.34) 07/25/2024 Other intervertebral disc degeneration, thoracic region (ICD-10 - M51.34) 07/18/2024 Degeneration of intervertebral disc of lumbar region with discogenic back pain (ICD-10 - M51.360) 05/24/2024 Other intervertebral disc degeneration, thoracic region [...] month and half for the injection. 04/19/2024 Other intervertebral disc degeneration, thoracic region (ICD-10 - M51.34) 01/25/2024 Pain in right hip (ICD-10 - M25.551) 01/25/2024 Intervertebral disc disorder with radiculopathy of lumbar region (ICD-10 - M51.16) 04/19/2024 Degeneration of intervertebral disc of lumbar region with discogenic back pain (ICD-10 - M51.360) 02/23/2024 Cyst of kidney, acquired (ICD-10 - [...] a month and half for the injection. 05/24/2024 Degeneration of intervertebral disc of lumbar region with discogenic back pain (ICD-10 - M51.360) 07/18/2024 Muscle pain, myofascial (ICD-10 - M79.18) 07/25/2024 Degeneration of intervertebral disc of lumbar region with discogenic back pain (ICD-10 - M51.360) 08/22/2024 Degeneration of intervertebral disc of lumbar region with discogenic back pain (ICD-10 - M51.360) 09/27/2024 Degeneration of intervertebral disc of lumbar region with discogenic back pain (ICD-10 - M51.360) 09/27/2024 Cyst of kidney, acquired (ICD-10 - [...] office today. No bleeding points were noted. 07/25/2024 Cyst of kidney, acquired (ICD-10 - N28.1) 07/18/2024 Cyst of kidney, acquired (ICD-10 - N28.1) 05/24/2024 Cyst of kidney, acquired (ICD-10 - N28.1) 02/23/2024 exterminator helper (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 of opiate analgesic (ICD-10 - [...] month and half for the injection. 04/19/2024 Cyst of kidney, acquired (ICD-10 - N28.1) 01/25/2024 Abnormality of gait and mobility (ICD-10 - R26.9) 01/25/2024 exterminator helper (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 of opiate analgesic (ICD-10 - Z79.891) 04/19/2024 exterminator helper (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 of opiate analgesic (ICD-10 - Z79.891) 05/24/2024 USP (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 of opiate analgesic (ICD-10 - Z79.891) 07/18/2024 exterminator helper (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 of opiate analgesic (ICD-10 - [...] with alcohol. No bleeding points were noted. 08/22/2024 Cyst of kidney, acquired (ICD-10 - N28.1) 09/27/2024 USP (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 of opiate analgesic (ICD-10 - Z79.891) 08/22/2024 exterminator helper (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 of opiate analgesic (ICD-10 - [...] Drug Screen (confirmation by in strument) - 41824 04/19/2024 Next Appt Details Provider Name:Anton Dwyer, 11/28/2024 10:20:00 AM, [address] [place], [address], Insurance Providers Payer Name Payer Address Payer Phone Subscriber Number Group Number Insured Name Patient Relationship to Insured Coverage Start Date Coverage End Date [employer] Medicare Replacement [address] [address] [place] [address] [phone] [id number] Arlene Qauch Self - patient is the insured [place] Medicaid [address] [place] [address] [id number] Arlene Quach Self - patient is the insured [place] Medicare [address] [address] [place] [address] [id number] Arlene Quach Self - patient is the [...]
--- OUTSIDE RECORDS SUMMARY | 2024-10-16 09:24 | XMS_ITS | Clinical Summary ---
Author Organization [facility] Address [address] 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
--- OUTSIDE RECORDS SUMMARY | 2024-10-16 09:24 | XMS_ITS | Encounter Summary ---
Author Organization [facility] Address 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
--- OUTSIDE RECORDS SUMMARY | 2024-10-16 09:24 | XMS_ITS | Encounter Summary ---
Author Organization [email or web address] Address 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
--- OUTSIDE RECORDS SUMMARY | 2024-10-16 09:24 | XMS_ITS | Encounter Summary ---
Author Organization [facility] Address [address] [place] [address] Care Team Providers Care Waistline Joiner Lockstitch Name Role Phone Aguila Castro MD Primary Care Provider + Encounter Details Date Type Department Care Team (Latest Contact Info) Description 04/14/2007 Outpatient Historical [facility] Internal Medicine [address] [address] [place] [address] Gilberto Leung MD Elevated Blood Pressure Reading without Diagnosis of Hypertension Social History Tobacco Use Types Packs/Day Years Used Date Smoking Tobacco: Never Assessed Comments Unknown Sex and Gender Information Value Date Recorded Sex Assigned at Not on file Legal 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 Female 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 Gender Identity Not on file Sexual Orientation Not on file documented as of this encounter Plan of Treatment Not on file documented as of this encounter Procedures Procedure Name Priority Date/Time Associated Diagnosis Comments MICROALBUMIN/CREATININ E RATIO, RANDOM UR Routine 04/14/2007 3:34 PM ACCESS COORDINATOR CBC WITH DIFFERENTIAL Routine 04/14/2007 3:34 PM ACCESS COORDINATOR URINALYSIS W/REFLEX MICROSCOPIC Routine 04/14/2007 3:34 PM ACCESS COORDINATOR T3 FREE Routine 04/14/2007 3:34 PM ACCESS COORDINATOR TSH Routine 04/14/2007 3:34 PM ACCESS COORDINATOR T4 FREE Routine 04/14/2007 3:34 PM ACCESS COORDINATOR COMPREHENSIVE METABOLIC PANEL Routine 04/14/2007 3:34 PM ACCESS COORDINATOR documented in this encounter Results * (ABNORMAL) COMPREHENSIVE METABOLIC PANEL (04/14/2007 3:34 PM ACCESS COORDINATOR) ALKALINE PHOSPHATASE 54 35 - 104 U/L [facility] CO2 22 22 - 30 mmol/L [facility] BILIRUBIN TOTAL 0.4 0.2 - 1.0 mg/dL [facility] POTASSIUM 3.9 3.5 - 4.9 mmol/L [facility] TOTAL PROTEIN 8.0 6.3 - 8.6 g/dL [facility] GLUCOSE 86 65 - 99 mg/dL [facility] AST 28 12 - 32 U/L [facility] BUN 7 6 - 20 mg/dL [facility] CALCIUM 8.5 8.4 - 10.2 mg/dL [facility] ALBUMIN 4.6 3.4 - 4.8 g/dL [facility] CHLORIDE 99 96 - 108 mmol/L [facility] CREATININE 0.71 0.51 - 0.95 mg/dL [facility] ALT 35(H) 0 - 31 U/L [facility] SODIUM 133(L) 135 - 145 mmol/L [facility] GFR, >60 >=60 mL/min/1. 7 sq meter [facility] GFR >60 >=60 mL/min/1. 7 sq meter [facility] Comment: Estimated GFR rate interpretative information for both Americans and non- Americans is available on the [facility] Intranet at: [email or web address] Select: Lab Policies and Procedures Select: Reference Ranges - GFR Blood specimen (specimen) 04/14/2007 3:34 PM ACCESS COORDINATOR 04/14/2007 8:28 PM ACCESS COORDINATOR Gilberto Leung MD CHEMISTRY ORDERABLES Edited [facility] [address] [place] [address] * (ABNORMAL) URINALYSIS (04/14/2007 3:34 PM ACCESS COORDINATOR) COLOR UA Pale Yellow [facility] NITRITE UA Negative Negative [facility] UROBILINOGEN UA <1 <=1 mg/dL [facility] EPITHELIAL CELLS, URINE 5-10 /HPF [facility] PH UA 6.0 5.0 - 8.0 [facility] KETONES UA Negative Negative [facility] WBC UA 1 0 - 5 /HPF [facility] CLARITY UA Slt. Cloudy(A) Clear [facility] PROTEIN UA Negative Negative [facility] BILIRUBIN UA Negative Negative [facility] LEUKOCYTE ESTERASE UA Negative Negative [facility] BACTERIA UA 1+(A) None Seen /HPF [facility] SPECIFIC GRAVITY UA 1.009 1.001 - 1.035 [facility] BLOOD UA Negative Negative [facility] GLUCOSE UA Negative Negative [facility] Urine, clean catch 04/14/2007 3:34 PM ACCESS COORDINATOR 04/14/2007 8:28 PM ACCESS COORDINATOR Gilberto Leung MD URINE ORDERABLES Final Resul t [facility] [address] [place] [address] * TSH (04/14/2007 3:34 PM ACCESS COORDINATOR) TSH 3.89 0.27 - 4.20 uU/mL [facility] Blood specimen (specimen) 04/14/2007 3:34 PM ACCESS COORDINATOR 04/14/2007 8:28 PM ACCESS COORDINATOR Gilberto Leung MD CHEMISTRY ORDERABLES Final R esult Performing Organization Address City/[facility] Co de Phone Number [facility] [address] [place] [address] * T4 FREE (04/14/2007 3:34 PM ACCESS COORDINATOR) T4 FREE 1.1 0.9 - 1.7 ng/dL [facility] Blood specimen (specimen) 04/14/2007 3:34 PM ACCESS COORDINATOR 04/14/2007 8:28 PM ACCESS COORDINATOR Gilberto Leung MD CHEMISTRY ORDERABLES Final R esult Performing Organization Address [facility] de Phone Number [facility] [address] [place] [address] * T3 FREE (04/14/2007 3:34 PM ACCESS COORDINATOR) T3 FREE 3.4 2.5 - 4.4 pg/mL [facility] Blood specimen (specimen) 04/14/2007 3:34 PM ACCESS COORDINATOR 04/14/2007 8:28 PM ACCESS COORDINATOR Gilberto Lenug MD CHEMISTRY ORDERABLES Final R esult Performing Organization Address [facility] Co de Phone Number [facility] [address] [place] [address] * MICROALBUMIN/CREATININE RATIO, RANDOM UR (04/14/2007 3:34 PM ACCESS COORDINATOR) MICROALBUMIN/C REAT RATIO, UR <5 0 - 29 mg/g creatinine [facility] Urine specimen (specimen) 04/14/2007 3:34 PM ACCESS COORDINATOR 04/14/2007 8:28 PM ACCESS COORDINATOR Gilberto Leung MD URINE ORDERABLES Final Resul t [facility] [address] [place] [address] * (ABNORMAL) CBC WITH DIFFERENTIAL (04/14/2007 3:34 PM ACCESS COORDINATOR) MCHC 33.6 31.5 - 35.5 % [facility] MCV 93.9 82.0 - 99.0 fL [facility] HEMOGLOBIN 15.0(H) 11.8 - 14.8 g/dL [facility] RDW 14.4 11.5 - 14.5 % [facility] MPV 12.2 9.3 - 12.4 fL [facility] WBC 12.2(H) 4.0 - 9.8 K/uL [facility] MCH 31.5 27.2 - 32.6 pg [facility] PLATELETS 341 140 - 350 K/uL [facility] HEMATOCRIT 44.7(H) 35.5 - 44.0 % [facility] RDW-STDEV 48.8(H) 37.1 - 48.7 fL [facility] RBC 4.76 3.90 - 4.90 M/uL [facility] EOSINOPHILS 0 0 - 7 % [facility] EOSINOPHIL ABSOLUTE 0.03 0.00 - 0.70 K/uL [facility] LYMPHOCYTES 22 16 - 45 % [facility] LYMPHOCYTE ABSOLUTE 2.69 0.70 - 4.50 K/uL [facility] BASOPHILS 0 0 - 2 % [facility] BASOPHILS ABSOLUTE 0.03 0.00 - 0.20 K/uL [facility] MONOCYTES 11 3 - 13 % [facility] MONOCYTE ABSOLUTE 1.39(H) 0.10 - 1.30 K/uL [facility] NEUTROPHILS 66 45 - 70 % [facility] NEUTROPHIL ABSOLUTE 8.05(H) 1.90 - 7.00 K/uL [facility] Blood specimen (specimen) 04/14/2007 3:34 PM ACCESS COORDINATOR 04/14/2007 8:28 PM ACCESS COORDINATOR Gilberto Leung MD HEMATOLOGY ORDERABLES Edited INTERFACE SYSTEM Refer to clinic/hospital department [facility] [address] [address] documented in this encounter Visit Diagnoses Diagnosis Elevated blood pressure reading without diagnosis of hypertension documented in this encounter Additional Health Concerns Infection Onset Date Last Indicated Resolved Time R/O GI Pathogen 10/06/2024 10/07/2024 10/07/2024 1 1:33 PM CDT C Diff 10/07/2024 10/07/2024 R/O GI Pathogen 10/13/2024 10/13/2024 10/13/2024 1 1:33 AM CDT documented as of this encounter Care Teams Waistline Joiner Lockstitch Relationship Specialty Start Date End Date Aguila Castro MD [address] [address] PCP - General Family Practice 05/26/21 documented as of this encounter
--- OUTSIDE RECORDS SUMMARY | 2024-10-16 09:24 | XMS_ITS | Encounter Summary ---
Author Organization [facility] Address [address] [place] [address] Care Team Providers Care Instrument Checker Name Role Phone Unavailable Primary Care Provider Unavailabl e Encounter Details Date Type Department Care Team (Latest Contact Info) Description 02/10/2006 Outpatient Historical [facility] Orthopedics- 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
--- OUTSIDE RECORDS SUMMARY | 2024-10-16 09:24 | XMS_ITS | Encounter Summary ---
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
--- OUTSIDE RECORDS SUMMARY | 2024-10-16 09:24 | XMS_ITS | Encounter Summary ---
Author Organization [facility] Address [address] [place] [address] Care Team Providers Care Cobbler Upper Name Role Phone Unavailable Primary Care Provider Unavailabl e Encounter Details Date Type Department Care Team (Latest Contact Info) Description 08/06/1998 Outpatient Historical [facility] Oral and Maxillo Surgery[address] [place] [address] Bill Box, DDS NO ADDRESS ON FILE Dental caries (Primary Dx); Chronic gingivitis; Unspecified disorder of the teeth and supporting structures Social History Tobacco Use Types Packs/Day Years Used Date Smoking Tobacco: Never Assessed Comments Unknown Sex and Gender Information Value Date Recorded Sex Assigned at Not on file 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
--- OUTSIDE RECORDS SUMMARY | 2024-10-16 09:24 | XMS_ITS | Encounter Summary ---
Author Organization [facility] Address [address] [place] [address] Care Team Providers Care Robotics Application Engineer Name Role Phone Unavailable Primary Care Provider Unavailabl e Encounter Details Date Type Department Care Team (Latest Contact Info) Description 12/31/2005 Outpatient Historical [facility] Orthopedics- 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
--- OUTSIDE RECORDS SUMMARY | 2024-10-16 09:24 | XMS_ITS | Encounter Summary ---
Author Organization [facility] Address [address] [place] [address] Care Team Providers Care Quality Assurance Assistant Name Role Phone Unavailable Primary Care Provider Unavailabl e Encounter Details Date Type Department Care Team (Latest Contact Info) Description 05/26/2006 Outpatient Historical [facility] Orthopedics- 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
--- OUTSIDE RECORDS SUMMARY | 2024-10-16 09:24 | XMS_ITS | Encounter Summary ---
Author Organization [facility] Address [address] [place] [address] Care Team Providers Care Centrifuge Separator Tender Name Role Phone Unavailable Primary Care Provider Unavailabl e Encounter Details Date Type Department Care Team (Latest Contact Info) Description 03/24/2006 Outpatient Historical [facility] Orthopedics- 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
--- OUTSIDE RECORDS SUMMARY | 2024-10-16 09:24 | XMS_ITS | Encounter Summary ---
Author Organization [facility] Address 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
--- OUTSIDE RECORDS SUMMARY | 2024-10-16 09:25 | XMS_ITS | Clinical Summary ---
Author Organization [facility] tone Address [address] [place] [address] Care Team Providers Care Director Of Residence Life Name Role Phone Aguila Castro MD Primary [...] for Nausea. 02/02/20 23 Active IRON PS [id number] LIC ACID ORAL Take by mouth. A [...] CDT - 5 1:27 PM CDT Emergency [facility] Emergency Department [address] [place] [phone] Colt Tavera MD Cirrhosis of liver with ascites, unspecified hepatic cirrhosis type (CMS/HCC) (Primary Dx); Abdominal distention; Gastritis without bleeding, unspecified chronicity, unspecified gastritis type Discharge Disposition: Home or Self Care 5 Results Follow-Up [facility] Emergency Department [address] [place] [phone] Blanca Harris RN CELL COUNT WITH DIFFERENTIAL, BODY FLUID, LACTATE DEHYDROGENASE, BODY FLUID, PROTEIN, BODY FLUID, Additional followed-up results: 2 5 Travel 5 External Device Data STL ABSTRACTION Provider, Abstract 5 External Device Data STL ABSTRACTION Provider, Abstract 5 Orders Only [id number] [place] [phone] Provider, Abstract [address] [phone] Provider, Abstract 5 9:52 AM CDT Anesthesia Event [facility] Endoscopy [address] [place] [phone] Rolando Sierra MD Le, Andrew N, ABRAHAM 5 9:20 AM CDT - 5 9:40 AM CDT Surgery [facility] Endoscopy [address] [place] [phone] Carmine Dubois MD ESOPHAGOGASTRODUODENOSCOPY 5 7:54 PM CDT - 5 3:59 PM CDT Hospital Encounter [facility] 3B Surgical [address] [place] [phone] Mohit Gomez MD Brooks, Cynthia J, DO Ovidio Palacios MD Gastrointestinal hemorrhage Discharge Disposition: Home or Self Care 5 8:20 AM CDT - 5 8:40 AM CDT Surgery [facility] Endoscopy [address] [place] [address] Carmine Dickerson, DO ESOPHAGOGASTRODUODENOSCOPY 5 8:03 AM CDT Anesthesia Event [facility] Endoscopy [address] [place] [phone] Mayo Roa, 5 7:15 AM CDT - 5 9:15 AM CDT Hospital Encounter [facility] Endoscopy [address] [place] [phone] Carmine Dickerson, DO Discharge Disposition: Home or Self Care 5 External Device Data ST[place] ABSTRACTION Provider, Abstract 5 External Device Data ST[place] ABSTRACTION Provider, Abstract 5 [facility] [address] [phone] Gera Resendez, DO Documentation Only 5 External Device Data ST[place] ABSTRACTION Provider, Abstract 5 External Device Data STL ABSTRACTION Provider, Abstract 5 Telephone [facility] [address] [phone] Gera Resendez, DO Documentation Only 5 [facility] [address] [phone] Gera Resendez, DO Documentation 5 11:30 AM CDT [facility] [address] [phone] Gera Resendez, DO Cirrhosis of liver without [...] on file 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 Gender Identity Not on file Sexual [...] Screening 10/04/2031 Medical Devices Explanted Type Area Roll Coating Machine Operator Device Identifier Shelf Expiration Date Model / Serial / Lot 6.5 Cannulated Screw Explanted:Qty: 1 on 05/27/2021 at [facility] Right: Tibia 6.5 Cannulated Screw Explanted:Qty: 1 on 05/27/2021 at [facility] Right: Tibia 6.5 Cannulated Screw Explanted:Qty: 1 on 05/27/2021 at [facility] Right: Tibia 13mm Washer Explanted:Qty: 1 on 05/27/2021 at [facility] Right: Tibia Procedures Procedure Name Priority Date/Time [...] CDT UPPER ENDOSCOPY REPORT 8:36 AM CDT SC COLONOSCOPY FLX DX W/MIRIAM J SPEC WHEN PFRMD 10/03/2024 8:20 AM CDT Melena Case Notes Procedure :DBL Special Notes: Trazodone,Hydrocodone,Varices Dx: Melena BT:NONE BT managed by: Diabetic: NO Diabetic/WT med:NONE LOC & REASON:Hosp-Medical BMI: 22.45 Last Procedure date & location: EGD,05/15,Hosp Referring Provider: Tawnya Lane DO GI Doc:Dr Carmine Dickerson Insurance: [employer] Medicare/Medicaid Last GI appt 08/28/24 [place] ESOPHAGOGASTRODUODENOSCOP Y TRANSORAL DIAGNOSTIC 10/03/2024 8:20 AM [...] the proposed needle course. A 10-cm 5 Slovak Neohapsis centesis catheter was inserted. 1750 ml of [...] the proposed needle course. A 10-cm 5 Slovak Neohapsis centesis catheter was inserted. 1750 ml of [...] BODY FLUID Clear 10/13/2024 1:45 PM CDT [facility] COLOR, FLD Yellow 10/13/2024 1:45 PM CDT [facility] TOTAL NUCLEATED CELLS, FLD (AUTO) 122 No Ref Range Estab /ul 10/13/2024 1:45 PM CDT [facility] TOTAL RBC'S, FLD (AUTO) <3,000 No Ref Range Estab /ul 10/13/2024 1:45 PM CDT [facility] NEUTROPHILS, FLD 1 No Ref Range Estab % 10/13/2024 1:45 PM CDT [facility] LYMPHOCYTE, FLD 67 No Ref Range Estab % 10/13/2024 1:45 PM CDT [facility] MONOCYTE/MACROPH AGE, FLD 24 No Ref Range Estab % 10/13/2024 1:45 PM CDT [facility] MESOTHELIAL FLD 8 No Ref Range Estab % 10/13/2024 1:45 PM CDT [facility] Body fluid ENTIRE SEROUS MEMBRANE OF PERITONEUM / Unknown Collection / Unknown 10/13/2024 12:51 PM CDT 10/13/2024 1:09 PM CDT Colt Tavera MD BODY FLUIDS AND STOOLS Final Result Performing Organization Address [facility] Co de Phone Number [facility] CLIA # [id number] [facility] [address] [place] [address] * PROTEIN, BODY FLUID (10/13/2024 12:51 PM CDT) PROTEIN, FLD 0.9 g/dL 10/13/2024 2:14 PM CDT [facility] Body fluid ENTIRE SEROUS MEMBRANE OF PERITONEUM / Unknown Collection / Unknown 10/13/2024 12:51 PM CDT 10/13/2024 1:17 PM CDT Narrative [facility] - 10/13/2024 2:14 PM CDT Interpretive Criteria: Transudate: <2.0 g/dL Exudate: >2.0 g/dL The reference range and other method performance specifications are unavailable for this body fluid. Comparison of this result with the concentration in the blood, serum, or plasma is recommended. us Colt Tavera MD BODY FLUIDS AND STOOLS Final Result Performing Organization Address [facility] Co de Phone Number [facility] CLIA # [id number] [facility] [address] [place] [address] * LACTATE DEHYDROGENASE, BODY FLUID (10/13/2024 12:51 PM CDT) LD, FLD 36 U/L 10/13/2024 2:05 PM CDT [facility] Body fluid ENTIRE SEROUS MEMBRANE OF PERITONEUM / Unknown Collection / Unknown 10/13/2024 12:51 PM CDT 10/13/2024 1:17 PM CDT [facility] - 10/13/2024 2:05 PM CDT Interpretive Criteria: Transudate: < 200 U/L or Fluid/Serum Ratio < 0.6 Exudate: > 200 U/L or Fluid/Serum Ratio > 0.6 The reference range and other method performance specifications are unavailable for this body fluid. Comparison of this result with the concentration in the blood, serum or plasma is recommended. Colt Tavera MD BODY FLUIDS AND STOOLS Final Result [facility] CLIA # [id number] [address] [place] [address] * GLUCOSE, BODY FLUID (10/13/2024 12:51 PM CDT) GLUCOSE, FLD 107 mg/dL 10/13/2024 2:05 PM CDT [facility] Body fluid ENTIRE SEROUS MEMBRANE OF PERITONEUM / Unknown Collection / Unknown 10/13/2024 12:51 PM CDT 10/13/2024 1:17 PM CDT [facility] - 10/13/2024 2:05 PM CDT Interpretive Criteria: Transudate: Fluid/Serum Ratio >0.5 Exudate: Fluid/Serum Ratio <0.5 or Fluid Glucose <60 mg/dL The reference range and other method performance specifications are unavailable for this body fluid. Comparison of this result with the concentration in the blood, serum or plasma is recommended. Colt Tavera MD BODY FLUIDS AND STOOLS Final Result Performing Organization Address [facility]/ZIP Co de Phone Number [facility] CLIA # [id number] [facility] [address] [place], [place] [address] * ALBUMIN LEVEL, BODY FLUID (10/13/2024 12:51 PM CDT) ALBUMIN, FLD 0.8 g/dL 10/13/2024 2:14 PM CDT [facility] Body fluid ENTIRE SEROUS MEMBRANE OF PERITONEUM / Unknown Collection / Unknown 10/13/2024 12:51 PM CDT 10/13/2024 1:17 PM CDT [facility] - 10/13/2024 2:14 PM CDT Interpretive Criteria: Transudate: Serum-Ascites gradient >1.1 g/dL Exudate: Serum-Ascites gradient <1.1 g/dL The reference range and other method performance specifications are unavailable for this body fluid. Comparison of this result with the concentration in the blood, serum or plasma is recommended. Colt Tavera MD BODY FLUIDS AND STOOLS Final Result Performing Organization Address [facility] de Phone Number [facility] CLIA # [id number] [facility] [address] * PTT (10/13/2024 12:08 PM CDT) Only the most recent of2 resultswithin the time period is included. PTT 30.7 24.8 - 37.2 seconds 10/13/2024 12:23 PM CDT [facility] Blood Venipuncture / Unknown 10/13/2024 12:08 PM CDT 10/13/2024 12:10 PM CDT Narrative [facility] - 10/13/2024 12:23 PM CDT Therapeutic Range: Hi-level PE/DVT heparin protocol 80.1 - 95.0 sec Lo-level PE/DVT heparin protocol 70.1 - 85.0 sec Cardiac Heparin Protocol 70.1 - 100.0 sec Colt Tavera MD HEMATOLOGY ORDERABLES Final Result [facility] CLIA # [id number] [address] [facility] [place] [address] * (ABNORMAL) PROTIME-INR (10/13/2024 12:08 PM CDT) Only the most recent of3 resultswithin the time period is included. PROTIME 15.6(H) 12.7 - 14.9 Seconds 10/13/2024 12:23 PM CDT [facility] INR 1.2 0.8 - 1.2 10/13/2024 12:23 PM CDT [facility] Blood Venipuncture / Unknown 10/13/2024 12:08 PM CDT 10/13/2024 12:10 PM CDT Narrative [facility] - 10/13/2024 12:23 PM CDT Expected Values for INR: DVT/PE Goal INR 2.5; range 2.0 - 3.0 Valve Replacement Tissue Goal INR 2.5; range 2.0 - 3.0 Valve Replacement Mechanical Goal INR 3.0; range 2.5 - 3.5 POST-ME Goal INR 2.5; range 2.0 - 3.0 or Goal INR 3.0; range 2.5 - 3.5 Atrial Fibrillation Goal INR 2.5; range 2.0 - 3.0 Ischemic Stroke Goal INR 2.5; range 2.0 - 3.0 Colt Tavera MD HEMATOLOGY ORDERABLES Final Result [facility] CLIA # [id number] [address] [facility] [place] [address] * CT ABDOMEN PELVIS W CONTRAST (10/13/2024 [...] nucleic acids detected. 10/13/2024 11:33 AM CDT [facility] [employer] [facility] Stool STOOL SPECIMEN / Unknown Collection / Unknown 10/13/2024 9:10 AM CDT 10/13/2024 10:06 AM CDT Narrative [facility] [employer] [facility] - 10/13/2024 11:33 AM CDT The [...] MD MICROBIOLOGY - GENERAL ORDERABLES Final Result [facility] CLIA # [id number] [address] [address] [place] [address] * LACTIC ACID (10/13/2024 9:09 AM CDT) [facility] LACTIC ACID 1.1 <=2.0 mmol/L 10/13/2024 9:34 AM T [facility] Blood Venipuncture / Unknown 10/13/2024 9:09 AM CDT 10/13/2024 9:11 AM CDT Colt Tavera MD CHEMISTRY ORDERABLES F inal Result Performing Organization Address [facility] Co de Phone Number [facility] CLIA # [id number] [address] [address] * (ABNORMAL) CBC WITH DIFFERENTIAL (10/13/2024 9:09 AM CDT) Only the most recent of2 resultswithin the time period is included. [facility] WBC 4.6(L) 4.8 - 10.8 K/uL 10/13/2024 9:20 AM T [facility] RBC 4.10(L) 4.20 - 5.40 M/uL 10/13/2024 9:20 AM T [facility] HEMOGLOBIN 10.9(L) 12.0 - 16.0 g/dL 10/13/2024 9:20 AM T [facility] HEMATOCRIT 33.3(L) 36.0 - 46.0 % 10/13/2024 9:20 AM T [facility] MCV 81.2(L) 84.0 - 103.0 fL 10/13/2024 9:20 AM T [facility] MCH 26.6(L) 27.0 - 34.0 pg 10/13/2024 9:20 AM T [facility] MCHC 32.7 30.0 - 35.0 g/dL 10/13/2024 9:[address] [facility] PLATELETS 217 140 - 440 K/uL 10/13/2024 9:[address] [facility] MPV 11.3 8.9 - 12.8 fL 10/13/2024 9:[address] [facility] RDW 18.9(H) 11.0 - 14.5 % 10/13/2024 9:[address] [facility] RDW-STDEV 55.5(H) 37.0 - 54.0 fL 10/13/2024 9:[address] [facility] NEUTROPHILS 65 42 - 75 % 10/13/2024 9:[address] [facility] LYMPHOCYTES 20(L) 24 - 44 % 10/13/2024 9:[address] [facility] MONOCYTES 15(H) 2 - 10 % 10/13/2024 9:[address] [facility] EOSINOPHILS 0 0 - 7 % 10/13/2024 9:[address] [facility] BASOPHILS 1 0 - 1 % 10/13/2024 9:[address] [facility] IMMATURE GRANULOCYTES 0 0 - 2 % 10/13/2024 9:[address] [facility] NEUTROPHIL ABSOLUTE 2.97 2.00 - 8.00 K/uL 10/13/2024 9:[address] [facility] LYMPHOCYTE ABSOLUTE 0.91(L) 1.20 - 4.00 K/uL 10/13/2024 9:[address] [facility] MONOCYTE ABSOLUTE 0.67(H) 0.10 - 0.60 K/uL 10/13/2024 9:[address] [facility] EOSINOPHIL ABSOLUTE 0.01 0.00 - 0.70 K/uL 10/13/2024 9:[address] [facility] BASOPHILS ABSOLUTE 0.03 0.00 - 0.20 K/uL 10/13/2024 9:[address] [facility] IMMATURE GRANULOCYTES ABSOLUTE 0.02 0.00 - 0.10 K/uL 10/13/2024 9:20 AM CDT [facility] SMEAR REVIEWED: NN - No Action Needed 10/13/2024 9:20 AM CDT [facility] Blood Venipuncture / Unknown 10/13/2024 9:09 AM CDT 10/13/2024 9:11 AM CDT Colt Tavera MD HEMATOLOGY ORDERABLES Final Result Performing Organization Address [facility] Co de Phone Number [facility] CLIA # [id number] [address] [address] * LIPASE (10/13/2024 9:09 AM CDT) LIPASE 32 13 - 60 U/L 10/13/2024 9:47 AM CDT [facility] Blood Venipuncture / Unknown 10/13/2024 9:09 AM CDT 10/13/2024 9:13 AM CDT Colt Tavera MD CHEMISTRY ORDERABLES F inal Result Performing Organization Address [facility] Co de Phone Number [facility] CLIA # [id number] [address] [address] * (ABNORMAL) COMPREHENSIVE METABOLIC PANEL (10/13/2024 9:09 AM CDT) Only the most recent of3 resultswithin the time period is included. SODIUM 142 136 - 145 mmol/L 10/13/2024 9:47 AM CDT [facility] POTASSIUM 3.6 3.5 - 5.1 mmol/L 10/13/2024 9:47 AM CDT [facility] CHLORIDE 106 98 - 107 mmol/L 10/13/2024 9:[address] [facility] CO2 24 22 - 29 mmol/L 10/13/2024 9:[address] [facility] CALCIUM 8.9 8.8 - 10.2 mg/dL 10/13/2024 9:[address] [facility] BUN 8 8 - 23 mg/dL 10/13/2024 9:[address] [facility] CREATININE 0.86 0.51 - 0.95 mg/dL 10/13/2024 9:[address] [facility] GLUCOSE 106(H) 74 - 99 mg/dL 10/13/2024 9:[address] [facility] TOTAL PROTEIN 6.3(L) 6.4 - 8.3 g/dL 10/13/2024 9:[address] [facility] ALBUMIN 3.6 3.5 - 5.2 g/dL 10/13/2024 9:[address] [facility] BILIRUBIN TOTAL 0.3 0.0 - 1.0 mg/dL 10/13/2024 9:[address] [facility] ALKALINE PHOSPHATASE 76 35 - 104 U/L 10/13/2024 9:[address] [facility] AST 29 10 - 35 U/L 10/13/2024 9:[address] [facility] ALT 23 <=35 U/L 10/13/2024 9:[address] [facility] GFR >60 >=60 mL/min/1.7 3 sq meter 10/13/2024 9:[address] [facility] Comment:eGFR calculated with 2020 CKD-EPI equation. Vegetarian diet, extremely high or low muscle mass, and may affect results. Cystatin C with Glomerular Filtration Rate is a suitable alternative for these patients. ANION GAP 12 9 - 20 mmol/L 10/13/2024 9:[address] [facility] Blood Venipuncture / Unknown 10/13/2024 9:09 AM T 10/13/2024 9:13 AM CDT Colt Tavera MD CHEMISTRY ORDERABLES F inal Result [facility] # [id number] [address] [place] [address] * TELEMETRY REPORT (10/09/2024 3:32 PM CDT) us Provider Scanning ECG ORDERABLES Final Result * UPPER ENDOSCOPY REPORT (10/08/2024 10:02 AM CDT) Narrative Procedure Note Carmine Dubois MD - 10/08/2024 10:02 AM CDT [facility] GI Patient Name: Arlene Quahc Procedure Date: 10/08/2024 Date of : 1965 [...] Time Scope In: Scope Out: [address] [place], [place] Carmine Dubois MD GI PROCEDURE ORDERA BLES Final Result * (ABNORMAL) HEMOGLOBIN AND HEMATOCRIT (10/07/2024 10:17 PM CDT) Only the most recent of4 resultswithin the time period is included. HEMOGLOBIN 10.0(L) 12.0 - 16.0 g/dL 10/07/2024 11:07 PM CDT [facility] [employer] [facility] HEMATOCRIT 30.9(L) 36.0 - 46.0 % 10/07/2024 11:07 PM CDT [facility] [employer] [facility] Blood Venipuncture / Unknown 10/07/2024 10:17 PM CDT 10/07/2024 10:20 PM CDT Alessandra Jolley DO HEMATOLOGY ORDERABLES Final Result [facility] [employer] [facility] CLIA # [id number] [address] [address] * VERIFICATION BLOOD GROUP (10/06/2024 11:05 PM CDT) ABO GROUP O 10/07/2024 12:13 AM CDT [facility] RH (D) TYPE Negative 10/07/2024 12:13 AM CDT [facility] Blood Venipuncture / Unknown 10/06/2024 11:05 PM CDT 10/06/2024 11:10 PM CDT Alessandra Jolley DO BLOOD BANK ORDERABLES Final Result Performing Organization Address City/State/ZIP Co id Phone Number [facility] [employer] [facility] CLIA#[id number] [address] [place] [address], * EKG 12-LEAD (10/06/2024 10:19 PM CDT) 10/06/2024 10:1 9 PM CDT Narrative INTERFACE SYSTEM - 10/07/2024 1:[address]T [address] [address] Test Date: 2024-10-06 Pat Name: ARLENE QUACH Department: 12 Room: [address] [place] [address] Gender: Female Vault Installer: [id number] : 1965 Requested By: Order Number: [id number] Reading MD: Aleah Brian Measurements Intervals Otis Rate: 60 P: 43 SC: 166 QRS: 59 QRSD: 80 T: 42 QT: 422 QTc: 422 Interpretive Statements Normal sinus rhythm Low voltage QRS Cannot rule out Anterior infarct, age undetermined Abnormal ECG Electronically Signed On 10-07-2024 13:13:54 CDT by Aleah Brian Procedure Note Provider, Historical - 10/07/[address], [place] [address] Test Date: 2024-10-06 Pat Name: ARLENE QUACH Department: 12 Room: [address] [place] [address] Gender: Female Vault Installer: [id number] : 1965 Requested By: Order Number: [id number] Reading MD: Aleah Brian Measurements Intervals Otis Rate: 60 P: 43 SC: 166 QRS: 59 QRSD: 80 T: 42 [...] ABO GROUP O 10/06/2024 11:44 PM CDT [facility] RH (D) TYPE Negative 10/06/2024 11:44 PM CDT [facility] ANTIBODY SCREEN Negative 10/06/2024 11:44 PM CDT [facility] Blood Venipuncture / Unknown 10/06/2024 10:05 PM CDT 10/06/2024 10:18 PM CDT Alessandra Jolley DO BLOOD BANK ORDERABLES Edited Result - Final [facility] CLIA#[id number] [address] [place] [address], * PHOSPHORUS (10/06/2024 10:04 PM CDT) PHOSPHORUS 3.5 2.5 - 4.5 mg/dL 10/06/2024 10:52 PM CDT [facility] Blood Venipuncture / Unknown 10/06/2024 10:04 PM CDT 10/06/2024 10:20 PM CDT Alessandra Jolley DO CHEMISTRY ORDERABLES Final R esult Performing Organization Address [facility] Co de Phone Number [facility] CLIA # [id number] [address] [place], [place] [address] * MAGNESIUM LEVEL (10/06/2024 10:04 PM CDT) MAGNESIUM 2.0 1.6 - 2.4 mg/dL 10/06/2024 10:52 PM CDT [facility] Blood Venipuncture / Unknown 10/06/2024 10:04 PM CDT 10/06/2024 10:20 PM CDT Alessandra Jolley DO CHEMISTRY ORDERABLES Final R esult Performing Organization Address [facility] Co de Phone Number [facility] CLIA # [id number] [address] [place] [address] * COLONOSCOPY REPORT (10/03/2024 8:48 AM CDT) Narrative Procedure Note Carmine Dickerson DO - 10/03/2024 8:48 AM CDT [facility] GI Patient Name: Arlene Quach Procedure Date: [...] AM Scope Out: 8:42:29 AM [address] [place], [place] Carmine Dickerson DO GI PROCEDURE ORDERABLES Final Result * PATHOLOGY (10/03/2024 8:38 AM CDT) CASE REPORT Surgical Pathology Report Case: [id number] Authorizing Provider: Carmine Dickerson DO Collected: 10/03/2024 08:38 AM Ordering Location: [facility] Received: 10/03/2024 01:26 PM Endoscopy Pathologist: Lis Mayberry MD Specimen: Colon, ascending, polyp 7:56 AM CDT [facility] FINAL DIAGNOSIS A. Colon, ascending, polyp - Adenomatous polyp Lis Mayberry MD [id number] 5 7:56 AM CDT [facility] at 0756 CDT GROSS DESCRIPTION A. Received in a container of formalin labeled Main -ascending colon polyp is a single fragment of mucosa, 0.2 cm in greatest dimension. The specimen is submitted entirely in A1. Grossed by: Ai Faustin MS, PA (ASCP) 5 7:56 AM CDT [facility] OPERATIVE PROCEDURE 1: ESOPHAGOGASTRODUODENOSCO PY 2: COLONOSCOPY 5 7:56 AM CDT [facility] CLINICAL INFORMATION Melena 5 7:56 AM CDT [facility] COMMENT The [employer] voice-activated dictation system may have been used [...] determined by the Diagnostic Immunohistochemistry Laboratory of [facility] in compliance with CLIA'88 regulations. Some of these tests rely on the use of analyte specific reagents and are subject to specific labeling requirements by the FDA. All controls show appropriate reactivity. This testing was developed by the Diagnostic Immunohistochemistry Laboratory of [facility]. It has not been cleared or approved by the FDA. The FDA has determined that such clearance or approval is not necessary. 5 7:56 AM CDT [facility] Tissue ASCENDING COLON STRUCTURE / Unknown Collection / Unknown 10/03/2024 8:38 AM CDT 10/03/2024 1:26 PM CDT Comment:Verified by AA/Aguila Guerrero MD Carmine Dickerson DO PATHOLOGY/CYTOLOGY [facility] Final Result [facility] CLIA # [id number] [facility] [address] [place] [address] * UPPER ENDOSCOPY REPORT (10/03/2024 8:36 AM CDT) Narrative Procedure Note Carmine Dickerson DO - 10/03/2024 8:36 AM CDT [facility] GI Patient Name: Arlene Quach Procedure Date: [...] Scope In: Scope Out: [address] [place], [place] Carmine Dickerson DO GI PROCEDURE ORDERABLES [...] Last Indicated C Diff 10/07/2024 10/07/2024 Insurance [facility] Address: [address] [address] [place] [address] [place]ICA[place] Advance Directives For more information, please contact: [phone] * Full Code (Latest Code Status on File) Date Activated Date Inactivated Comments 10/06/2024 9:13 PM 10/08/2024 5:59 PM * Full Code Date Activated Date Inactivated Comments 10/03/2024 7:38 AM 10/03/2024 11:18 AM Care Teams Director Of Residence Life Relationship Specialty Start Date End Date Aguila Castro MD [address] [phone] PCP - General Family Practice 05/26/21
--- OUTSIDE RECORDS SUMMARY | 2024-10-16 09:25 | XMS_ITS | Encounter Summary ---
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
--- OUTSIDE RECORDS SUMMARY | 2024-10-16 09:25 | XMS_ITS | Encounter Summary ---
Author Organization [facility] Address [address] [place] [address] Care Team Providers Care Credit Representative Name Role Phone Unavailable Primary Care Provider Unavailabl e Encounter Details Date Type Department Care Team (Latest Contact Info) Description 09/30/[address] [facility] [address] [place] [address] Donaldo Houston MD [address] [place] [id number] Sprain Cruciate Lig Knee (Primary Dx); Sprain Medial Collat Lig Social History Tobacco Use Types Packs/Day Years Used Date Smoking Tobacco: Never Assessed Comments Unknown Sex and Gender Information Value Date Recorded Sex Assigned at Not on file Legal Sex Female 6:08 AM [employer] Gender Identity Not on file Sexual Orientation Not on file documented as of this encounter Plan of Treatment Not on file documented as of this encounter Visit Diagnoses Diagnosis Sprain cruciate lig knee- Primary Sprain of cruciate ligament of knee Sprain medial collat lig Sprain of medial collateral ligament of knee documented in this encounter
--- NOTE | 2024-10-16 09:32 | ED_ITS ---
Documented by User: NEHAL Concepcion 10/16/24 16:42 HPI - Weakness 2 General: Chief complaint: Weakness Stated complaint: N/V Cdiff Time Seen by Provider: 10/16/24 09:21 Source: patient Mode of arrival: EMS Limitations: no limitations History of Present Illness: Patient is a 59-year-old female with a history of hereditary hemorrhagic telangiectasia and recent diagnosis of C. difficile here concerned regarding weakness and possible anemia. Patient was seen here on 10/06 with a complaint of bloody stools following an endoscopy/colonoscopy that was performed at [facility]. She was subsequently transferred back to their facility. While there she reportedly tested positive for C. difficile and placed on oral vancomycin. Patient states she has had about a week worth of this medication and does not feel like she is improving. She continues to have diffuse watery and bright red diarrhea. She is concerned about her hemoglobin given the blood in her stool and history of bleeding disorder. She is not complaining of abdominal pain. No fevers. She arrives with stable vital signs apart from some mild tachycardia. MD Complaint: generalized weakness Onset (ago): day(s) Duration: constant Location: generalized Migration: none Severity: moderate Relieving factors: none Exacerbating factors: other (diarrhea, blood loss) Context: recent illness (c diff) Associated symptoms: Reports no associated symptoms; Denies chest pain, chills, melena, dysuria, fever(s), headache(s) or vomiting Related Data Home Medications ?Medication ?Instructions ?Recorded ?Confirmed aspirin 81 mg tablet,delayed 81 mg PO DAILY 06/02/20 0 10/16/24 release Held on 10/14/24. Instructions: Resume on 10/25/24. Hold until PCP / GI says resume cetirizine 10 mg tablet (Allergy 10 mg PO DAILY 10/16/24 Relief (cetirizine)) trazodone 50 mg tablet 50 mg PO BEDTIME 03/19/23 hydrocodone 5 mg-acetaminophen 325 1 tab PO Q12H 10/0610/16/24 mg tablet methocarbamol 500 mg tablet 500 mg PO DAILY PRN Pain 0 10/06/24 10/16/24 Held on 10/14/24. Instructions: Resume on 10/22/24. carvedilol 6.25 mg tablet 6.25 mg PO DAILY 10/14/24 levothyroxine 50 mcg tablet 50 mcg PO DAILY 10/14/24 0 10/16/24 tizanidine 4 mg tablet 4 mg PO DAILY PRN muscle spa sms 10/14/24 10/16/24 Held on 10/14/24. Instructions: Resume on 10/22/24. vancomycin 125 mg capsule 125 mg PO Q6H 10/14/2410/16 pantoprazole 40 mg tablet,delayed 40 mg PO BID 5 10/16/24 release Allergies Allergy/AdvReac Type Severity Reaction Status Date / Time Sulfa (Sulfonamide Allergy ALGY-Rash Verified 11/15/23 14:51 Antibiotics) Review of Systems 2 Const: Reports: fatigue and other (generalized weakness); Denies: fever(s), chills or body aches Eyes: Denies: change in vision Card: Denies: chest pain Resp: Denies: dyspnea GI: Reports: diarrhea and hematochezia; Denies: abdominal pain, vomiting or melena : Denies: flank pain, dysuria or hematuria Musc: Denies: neck pain, back pain, extremity pain, extremity swelling or joint swelling Skin/Breast: Denies: rash Neuro: Denies: headache(s), numbness in extremities, weakness in extremities, sensory changes or dizziness PFSH ED 2 PFSH: Medical History Hypothyroidism Iron deficiency anemia due to chronic blood loss Left axillary pain Helicobacter pylori gastritis Hereditary hemorrhagic telangiectasia Anterior cruciate ligament complete tear CVA (cerebral vascular accident) GERD (gastroesophageal reflux disease) Surgical History H/O esophagogastroduodenoscopy (05/01/21) cautery of 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 4 H/O esophagogastroduodenoscopy (06/03/20) 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 History of lung surgery 2008 History of colonoscopy (06/03/20) Cautery of AVM Hx of brain surgery History of eye surgery History of knee surgery History of hip surgery Hx of removal of ovary Social History Smoking and tobacco/nicotine status: never used tobacco/nicotine Quit status (tobacco/nicotine): has quit using Year quit tobacco: Nov 2021 Former quit date comment: Smoked for 40+ years Alcohol intake: current Alcohol intake frequency: few times a week Substance/Drug Use: never Marital status: Number of children: 1 Current occupational status: disabled Physical Exam 2 Const: COMMON NORMALS: no acute distress, average body habitus, patient oriented x3, no limitations, healthy appearing, alert and well nourished G ENERAL APPEARANCE: cooperative OTHER: pale Resp: COMMON NORMALS: normal respiratory effort and clear to auscultation bilaterally AUSCULTATION: clear to auscultation bilaterally Cardio: COMMON NORMALS: regular rhythm RATE: tachycardic RHYTHM: regular rhythm GI: COMMON NORMALS: Normal to inspection, nondistended, normoactive bowel sounds present, Soft to palpation, non-tender, No hepatosplenomegaly present and no masses PALPATION: Yes Soft to palpation and Yes No hepatosplenomegaly present Extremity: GENERAL: Yes normal exam except as noted Neuro: COMMON NORMALS: patient oriented x3, moves all extremities, no focal motor deficits and no sensory deficits noted SENSORIUM/ORIENTATION: Yes alert Course 2 Reevaluation(s): Reevaluation #1: [facility] are both full with EDs on divert. They will not be able to accept patient. After speaking to patient and updating her-she would like us to try [facility] so we will attempt this. Reevaluation #2: [facility] has no availability. Did contact [facility] and they have a page out to GI but we have not heard from them yet-it has been hours. Tried to re-contact them and they assured us that the page is out and we need to continue waiting-they are unable to tell us the wait time on a bed at this time. I will go ahead and have unit receptionist work on other facilities as well. Reevaluation #3: We now have pages out to [facility], facility through [facility], and a facility [facility]. At this time just awaiting callbacks from GI/hospitalist teams at these facilities. Patient's vitals are maintaining stability. I will go ahead and order repeat H/H. Got an accepting physician from [facility] through -Dr. Lundy but shortly after this I was contacted by [facility] who stated their ED is no longer on divert and will accept patient ED to ED with accepting physician of Dr. Allegra Cano. Patient much happier with this option as it is closer and her son lives in [place]. Consultations: Consultation #1: Dr. Melgar-feels patient most likely will require transfer with facility with GI coverage due to her history of liver disease, bleeding disorder/concern for colon AVM bleed, non-improving c.diff infection, etc Vital Signs: Vital signs: Vital Signs Temperature 98.7 F 10/16/24 14:17 Pulse Rate 94 10/16/24 14:46 Respiratory Rate 18 10/16/24 14:17 Blood Pressure 132/83 10/16/24 14:46 Pulse Oximetry 99 10/16/24 14:46 Oxygen Delivery Me thod Room Air 10/16/24 14:46 MDM - Weakness Medical Decision Making Patient is a 59-year-old female here for generalized weakness and concern for anemia given she is having bright red watery diarrhea. She has known c. difficile and has currently been on oral vancomycin over the past week. She has a history of hereditary hemorrhagic telangiectasia. Spoke to hospitalist Dr. Melgar who thinks best course would be transfer back to [facility] due to availability of GI specialty. Patient has no signs and symptoms consistent with fulminant disease. She is not hypotensive. No fevers. White count is normal. She is not complaining of abdominal pain. She was eventually accepted [facility] ED to ED. Chart reviewed and patient discussed with midlevel. Agree with assessment and plan. Medical Records I reviewed the patient's medical records. Lab Data I reviewed the patient's lab results. 10/16/24 15:44 10/16/24 09:43 Laboratory Results WBC 10.12 10^3/uL (3.29-11.43) 10/16/24 09:43 RBC 2.77 10^6/uL (3.85-5.65) L 10/16/24 09:43 Hgb 8.70 g/dL (11.27-16.99) L 10/16/24 15:44 Hct 27.5 % (36-47) L 10/16/24 15:44 MCV 81.6 fl (85-98) L 10/16/24 09:43 MCH 26.0 pg (27-33) L 10/16/24 09:43 MCHC 31.9 g/dL (30-55) 10/16/24 09:43 RDW 19.1 % (12.1-15.1) H 10/16/24 09:43 Plt Count 325 10^3/cmm (157-399) 10/16/24 09:43 MPV 12.3 fL (7.4-10.4) H 10/16/24 09:43 Neut % (Auto) 72.7 % 10/16/24 09:43 Lymph % (Auto) 15.3 % 10/16/24 09:43 Pike % (Auto) 11.2 % 10/16/24 09:43 Eos % (Auto) 0.0 % 10/16/24 09:43 Baso % (Auto) 0.2 % 10/16/24 09:43 Neut # (Auto) 7.36 10^3/uL (1.8-7.7) 10/16/24 09:43 Lymph # (Auto) 1.6 10^3/uL (0.8-4.8) 10/16/24 09:43 Pike # (Auto) 1.1 10^3/uL (0.2-0.9) H 10/16/24 09:43 Eos # (Auto) 0.0 10^3/uL (0.0-0.8) 10/16/24 09:43 Baso # (Auto) 0.0 10^3/uL (0.0-0.1) 10/16/24 09:43 Nucleated RBC % (auto) 0.2 % 10/16/24 09:43 Nucleated RBCs # 0.0 /100WBC 10/16/24 09:43 PT 20.50 SECONDS (12.1-14.9) H 10/16/24 09:43 INR 1.65 (0.8-1.2) H 10/16/24 09:43 APTT 21.4 SECONDS (23.9-36.7) L 10/16/24 09:43 Sodium 132 mmol/L (136-145) L 10/16/24 09:43 Potassium 4.1 mmol/L (3.5-5.1) 10/16/24 09:43 Chloride 100 mmol/L (98-107) 10/16/24 09:43 Carbon Dioxide 21 mmol/L (22-29) L 10/16/24 09:43 Anion Gap 15.1 (5-19) 10/16/24 09:43 BUN 15 mg/dL (8-23) 10/16/24 09:43 Creatinine 1.2 mg/dL (0.5-0.9) H 10/16/24 09:43 GFR Calculation 45.8 mL/min (90-130) L 10/16/24 09:43 Glucose 138 mg/dL (65-115) H 10/16/24 09:43 Calculated Osmolality 277 mOsm/kg (285-295) L 10/16/24 09:43 Calcium 8.3 mg/dL (8.5-10.5) L 10/16/24 09:43 Total Bilirubin 0.3 mg/dL (0.15-1.2) 10/16/24 09:43 AST 21 U/L (0-32) 10/16/24 09:43 ALT 19 U/L (0-33) 10/16/24 09:43 Alkaline Phosphatase 56 U/L (35-105) 10/16/24 09:43 Total Protein 5.5 g/dL (6.6-8.7) L 10/16/24 09:43 Albumin 3.5 g/dL (3.5-5.2) 10/16/24 09:43 Globulin 2.0 g/dL (1.3-4.6) 10/16/24 09:43 Lipase 48 U/L (13-60) 10/16/24 09:43 Blood Type O Negative 10/16/24 10:27 Rho(D) Type Rh negative 10/16/24 10:27 Antibody Screen Negative 10/16/24 10:27 Crossmatch See Detail 10/16/24 10:27 No radiology studies performed this visit Discharge Plan Discharge Patient Disposition: Xfer Short-Term Hosp Clinical Impression: C. difficile colitis, Hereditary hemorrhagic telangiectasia, Anemia due to acute blood loss Condition: Stable Referrals: Tawnya Lane DO [Primary Care Provider, FACULTY ADMINISTRATOR] Print Language: Ukrainian Coding Level of Care Code ED Vp Director Of Creative Strategy for Chg Fwd Documented by User: Randal Ward DO 10/16/24 11:06 HPI - Weakness 2 General: Chief complaint: Weakness Stated complaint: N/V Cdiff Time Seen by Provider: 10/16/24 09:21 Related Data Home Medications ?Medication ?Instructions ?Recorded ?Confirmed aspirin 81 mg tablet,delayed 81 mg PO DAILY 06/02/20 0 10/16/24 release Held on 10/14/24. Instructions: Resume on 10/25/24. Hold until PCP / GI says resume cetirizine 10 mg tablet (Allergy 10 mg PO DAILY 10/16/24 Relief (cetirizine)) trazodone 50 mg tablet 50 mg PO BEDTIME 03/19/23 hydrocodone 5 mg-acetaminophen 325 1 tab PO Q12H 10/0610/16/24 mg tablet methocarbamol 500 mg tablet 500 mg PO DAILY PRN Pain 0 10/06/24 10/16/24 Held on 10/14/24. Instructions: Resume on 10/22/24. carvedilol 6.25 mg tablet 6.25 mg PO DAILY 10/14/24 levothyroxine 50 mcg tablet 50 mcg PO DAILY 10/14/24 0 10/16/24 tizanidine 4 mg tablet 4 mg PO DAILY PRN muscle spa sms 10/14/24 10/16/24 Held on 10/14/24. Instructions: Resume on 10/22/24. vancomycin 125 mg capsule 125 mg PO Q6H 10/14/2410/16 pantoprazole 40 mg tablet,delayed 40 mg PO BID 5 10/16/24 release Allergies Allergy/AdvReac Type Severity Reaction Status Date / Time Sulfa (Sulfonamide Allergy ALGY-Rash Verified 11/15/23 14:51 Antibiotics) PFSH ED 2 PFSH: Medical History Hypothyroidism Iron deficiency anemia due to chronic blood loss Left axillary pain Helicobacter pylori gastritis Hereditary hemorrhagic telangiectasia Anterior cruciate ligament complete tear CVA (cerebral vascular accident) GERD (gastroesophageal reflux disease) Surgical History H/O esophagogastroduodenoscopy (05/01/21) cautery of 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 4 H/O esophagogastroduodenoscopy (06/03/20) 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 History of lung surgery 2009 History of colonoscopy (06/03/20) Cautery of AVM Hx of brain surgery History of eye surgery History of knee surgery History of hip surgery Hx of removal of ovary Social History Smoking and tobacco/nicotine status: never used tobacco/nicotine Quit status (tobacco/nicotine): has quit using Year quit tobacco: Nov 2021 Former quit date comment: Smoked for 40+ years Alcohol intake: current Alcohol intake frequency: few times a week Substance/Drug Use: never Marital status: Number of children: 1 Current occupational status: disabled Course 2 Vital Signs: Vital signs: Vital Signs Temperature 98.7 F 10/16/24 14:17 Pulse Rate 94 10/16/24 14:46 Respiratory Rate 18 10/16/24 14:17 Blood Pressure 132/83 10/16/24 14:46 Pulse Oximetry 99 10/16/24 14:46 Oxygen Delivery Me thod Room Air 10/16/24 14:46 MDM - Weakness Medical Decision Making Patient is a 59-year-old female here for generalized weakness and concern for anemia given she is having bright red watery diarrhea. She has known c. difficile and has currently been on oral vancomycin over the past week. She has a history of hereditary hemorrhagic telangiectasia. Spoke to hospitalist Dr. Melgar who thinks best course would be transfer back to [facility] due to availability of GI specialty. Patient has no signs and symptoms consistent with fulminant disease. She is not hypotensive. No fevers. White count is normal. She is not complaining of abdominal pain. Chart reviewed and patient discussed with midlevel. Agree with assessment and plan. Lab Data 10/16/24 15:44 10/16/24 09:43 Laboratory Results WBC 10.12 10^3/uL (3.29-11.43) 10/16/24 09:43 RBC 2.77 10^6/uL (3.85-5.65) L 10/16/24 09:43 Hgb 8.70 g/dL (11.27-16.99) L 10/16/24 15:44 Hct 27.5 % (36-47) L 10/16/24 15:44 MCV 81.6 fl (85-98) L 10/16/24 09:43 MCH 26.0 pg (27-33) L 10/16/24 09:43 MCHC 31.9 g/dL (30-55) 10/16/24 09:43 RDW 19.1 % (12.1-15.1) H 10/16/24 09:43 Plt Count 325 10^3/cmm (157-399) 10/16/24 09:43 MPV 12.3 fL (7.4-10.4) H 10/16/24 09:43 Neut % (Auto) 72.7 % 10/16/24 09:43 Lymph % (Auto) 15.3 % 10/16/24 09:43 Pike % (Auto) 11.2 % 10/16/24 09:43 Eos % (Auto) 0.0 % 10/16/24 09:43 Baso % (Auto) 0.2 % 10/16/24 09:43 Neut # (Auto) 7.36 10^3/uL (1.8-7.7) 10/16/24 09:43 Lymph # (Auto) 1.6 10^3/uL (0.8-4.8) 10/16/24 09:43 Pike # (Auto) 1.1 10^3/uL (0.2-0.9) H 10/16/24 09:43 Eos # (Auto) 0.0 10^3/uL (0.0-0.8) 10/16/24 09:43 Baso # (Auto) 0.0 10^3/uL (0.0-0.1) 10/16/24 09:43 Nucleated RBC % (auto) 0.2 % 10/16/24 09:43 Nucleated RBCs # 0.0 /100WBC 10/16/24 09:43 PT 20.50 SECONDS (12.1-14.9) H 10/16/24 09:43 INR 1.65 (0.8-1.2) H 10/16/24 09:43 APTT 21.4 SECONDS (23.9-36.7) L 10/16/24 09:43 Sodium 132 mmol/L (136-145) L 10/16/24 09:43 Potassium 4.1 mmol/L (3.5-5.1) 10/16/24 09:43 Chloride 100 mmol/L (98-107) 10/16/24 09:43 Carbon Dioxide 21 mmol/L (22-29) L 10/16/24 09:43 Anion Gap 15.1 (5-19) 10/16/24 09:43 BUN 15 mg/dL (8-23) 10/16/24 09:43 Creatinine 1.2 mg/dL (0.5-0.9) H 10/16/24 09:43 GFR Calculation 45.8 mL/min (90-130) L 10/16/24 09:43 Glucose 138 mg/dL (65-115) H 10/16/24 09:43 Calculated Osmolality 277 mOsm/kg (285-295) L 10/16/24 09:43 Calcium 8.3 mg/dL (8.5-10.5) L 10/16/24 09:43 Total Bilirubin 0.3 mg/dL (0.15-1.2) 10/16/24 09:43 AST 21 U/L (0-32) 10/16/24 09:43 ALT 19 U/L (0-33) 10/16/24 09:43 Alkaline Phosphatase 56 U/L (35-105) 10/16/24 09:43 Total Protein 5.5 g/dL (6.6-8.7) L 10/16/24 09:43 Albumin 3.5 g/dL (3.5-5.2) 10/16/24 09:43 Globulin 2.0 g/dL (1.3-4.6) 10/16/24 09:43 Lipase 48 U/L (13-60) 10/16/24 09:43 Blood Type O Negative 10/16/24 10:27 Rho(D) Type Rh negative 10/16/24 10:27 Antibody Screen Negative 10/16/24 10:27 Crossmatch See Detail 10/16/24 10:27 Discharge Plan Discharge Patient Disposition: Xfer Short-Term Hosp Clinical Impression: C. difficile colitis, Hereditary hemorrhagic telangiectasia, Anemia due to acute blood loss Condition: Stable Referrals: Tawnya Lane DO [Primary Care Provider, FACULTY ADMINISTRATOR] Print Language: Ukrainian Coding Level of Care Code ED Vp Director Of Creative Strategy for Irma Montanez
[2024-10-16 09:49] LABS: Hematocrit 22.6 % (36-47); Hemoglobin 7.20 g/dL (11.27-16.99); Mean Corpuscular HGB Conc 31.9 g/dL (30-55); Mean Corpuscular Hemoglobin 26.0 pg (27-33); Mean Corpuscular Volume 81.6 fl (85-98); Nucleated Red Blood Cells % 0.2 %; Platelet Count 325 10^3/cmm (157-399); Red Blood Count 2.77 10^6/uL (3.85-5.65); White Blood Count 10.12 10^3/uL (3.29-11.43)
[2024-10-16 10:07] LABS: Alanine Aminotransferase 19 U/L (0-33); Albumin Level 3.5 g/dL (3.5-5.2); Alkaline Phosphatase 56 U/L (35-105); Anion Gap 15.1 (5-19); Aspartate Amino Transferase 21 U/L (0-32); Blood Urea Nitrogen 15 mg/dL (8-23); Calcium 8.3 mg/dL (8.5-10.5); Carbon Dioxide 21 mmol/L (22-29); Chloride 100 mmol/L (98-107); Creatinine Clr Calc Pharmacy 51.6813; Globulin 2.0 g/dL (1.3-4.6); Glucose 138 mg/dL (65-115); Lipase 48 U/L (13-60); Osmolality Calculated 277 mOsm/kg (285-295); Potassium 4.1 mmol/L (3.5-5.1); Sodium 132 mmol/L (136-145); Total Protein 5.5 g/dL (6.6-8.7)
--- NOTE | 2024-10-16 10:27 | PC.PHAR ---
Patient states she was unaware of medications holds and has been taking the Asprin and other two medications as needed .
[2024-10-16 10:33] LABS: INR 1.65 (0.8-1.2); Prothrombin Time 20.50 SECONDS (12.1-14.9)
[2024-10-16 10:34] LABS: Partial Thromboplastin Time 21.4 SECONDS (23.9-36.7)
[2024-10-16 15:53] LABS: Hematocrit 27.5 % (36-47); Hemoglobin 8.70 g/dL (11.27-16.99)
== END 2024-10-16 18:43 | disposition short-term general hospital (02) ==
PROVIDERS: Emergency Provider Physician Assistant; PCP Family Medicine
DX: I78.0 Hereditary hemorrhagic telangiectasia (principal); A04.72 Enterocolitis due to Clostridium difficile, not specified as recurrent; D62 Acute posthemorrhagic anemia; D50.9 Iron deficiency anemia, unspecified; K21.9 Gastro-esophageal reflux disease without esophagitis; E03.9 Hypothyroidism, unspecified; Z86.73 Personal history of transient ischemic attack (TIA), and cerebral infarction without residual deficits
CPT/HCPCS: 36430; 80053; 83690; 85014; 85018; 85025; 85610; 85730; 86850; 86900; 86920; 99284; 99285; J7030; J9999; P9016

== ENCOUNTER 2024-10-26 12:13 | Emergency (ER) | payer MEDICARE, MEDICAID, SELFPAY ==
--- OUTSIDE RECORDS SUMMARY | 2024-10-16 19:49 | XMS_ITS | Encounter Summary ---
Author Organization [employer] [facility] Address [address] [place] [address] Care Team Providers Care Box Toe Buffer Name Role Phone Aguila Castro MD Primary Care Provider + Reason for Referral * Eval and Treat (8-30 Days) - Authorized Specialty Diagnoses / Procedures Referred By Contac t Referred To Contact Diagnoses Hemorrhoids, unspecified hemorrhoid type Procedures IL OFFICE/OUTPATIENT ESTABLISHED MOD MDM 30 MIN IL OFFICE/OUTPATIENT NEW MODERATE MDM 45 MINUTES Jaden Guzmán MD [address] [place] [phone] Phone: tel: fax: Referral ID Status Reason Start Date Expiration Date V isits Requested Visits Authorized [id number] Authorized 10/23/2024 10/23/2025 1 1 * Eval and Treat (8-30 Days) - Open Specialty Diagnoses / Procedures Referred By Contac t Referred To Contact Diagnoses Gastrointestinal hemorrhage, unspecified gastrointestinal hemorrhage type Cirrhosis of liver without ascites, unspecified hepatic cirrhosis type (CMS/HCC) Procedures IL OFFICE/OUTPATIENT ESTABLISHED MOD MDM 30 MIN IL OFFICE/OUTPATIENT NEW MODERATE MDM 45 MINUTES Jaden Guzmán MD [address] [place] [address] Phone: tel: fax: Referral ID Status Reason Start Date Expiration Date Visits Re quested Visits Authorized [id number] Open 10/23/2024 10/23/2025 1 1 * Eval and Treat (Routine) - Closed Specialty Diagnoses / Procedures Referred By Maryjane tim Referred To Contact Diagnoses Cirrhosis of liver without ascites, unspecified hepatic cirrhosis type (CMS/HCC) Procedures IL OFFICE/OUTPATIENT ESTABLISHED MOD MDM 30 MIN IL OFFICE/OUTPATIENT NEW MODERATE MDM 45 MINUTES Jaden Guzmán MD [address] [place] [address] Phone: tel: fax: Referral ID Status Reason Start Date Expiration Date Visits Re quested Visits Authorized [id number] Closed 10/23/2024 10/23/2025 1 1 Reason for Visit * Reason Comments Diarrhea Tx from [facility] - r ecent dx of cdiff - has a bleeding disorder and has been having bloody/watery stools. Received 1 unit of blood from transferring facility * Auth/Cert (Routine) Specialty Diagnoses / Procedures Referred By Maryjane tim Referred To Contact Emergency Medicine Diagnoses cdiff +, GI bleed, general weakness [facility] Emergency Department [address] [place] [phone] Phone: tel: fax: Referral ID Status Reason Start Date Expiration Date Visits Re quested Visits Authorized [id number] 1 1 Encounter Details Date Type Department Care Team (Latest Contact Info) Description 10/16/2024 7:49 PM CDT - 10/23/2024 1:20 PM CDT Hospital Encounter [facility] Medical Telemetry [address] [place] [phone] Je Garnett MD [address] [place] [address] Jasmyn Coy MD [address] [place] [phone] Jonathan Sampson MD [address] [place] [address] Jeb Alvarez III, DO [address] [place] [address] Uri Rojas MD [address] [place] [address] Jaden Guzmán MD [address] [place] [address] Lower GI hemorrhage Discharge Disposition: Home or Self Care Social History Tobacco Use Types Packs/Day Years Used Date Smoking Tobacco: Every Day Cigarettes Smokeless Tobacco: Never Alcohol Use Standard Drinks/Week Comments Not Currently 0 (1 standard drink = 0.6 oz pur e alcohol) rare Feeling Safe Answer Date Recorded Are you in a relationship wi th someone who hurts you emotionally and/or physically? 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 Gender Identity Not on file Sexual Orientation Not on file documented as of this encounter Last Filed Vital Signs Vital Sign Reading Time Taken Comments Blood Pressure 128/65 10/23/2024 7:22 AM CDT Pulse 71 10/23/2024 7:22 AM CDT Temperature 36.7 C (98 F) 10/23/2024 7:22 AM CDT Respiratory Rate 17 10/23/2024 7:22 AM CDT Oxygen Saturation 99% 10/23/2024 7:22 AM CDT Inhaled Oxygen Concentration - - Weight 65 kg (143 lb 4.8 oz) 10/20/2024 3:00 AM CDT Height 175.3 cm (5' 9 ) 10/16/2024 10:30 PM CDT Body Mass Index 21.16 10/16/2024 10:30 PM CDT documented in this encounter Discharge Summaries * Jaden Guzmán MD - 10/23/2024 12:14 PM CDT [facility]ist- Discharge Summary Viry Quach 59 y.o. female 1965 CSN: [id number] Date of Admission: 10/16/2024 Date of Discharge: 10/23/2024 LOS: 7 days Discharging Physician: Jaden Guzmán MD PCP: Aguila Castro MD Code Status at Discharge: Full Code Dispo: Home Labs and studies from this hospitalization needing follow up: CBC and Basic Metabolic Panel (BMP) in 1 week Pending Labs Order Current Status PATHOLOGY In process Abnormal Imaging: US ASPIRATION ABDOMEN Final Result IMPRESSION: Please see below. Exam: US ASPIRATION ABDOMEN Date/Time of Exam: 10/23/2024 10:27 AM Reason For Exam: Ascites. This procedure was performed and preliminary findings dictated by Cem Becker PA-C. Supervision and final interpretation by Dr. Aleman. Consent: Risks, benefits, and alternatives of the procedure [...] the largest pocket of free fluid. The left lower quadrant was selected. The area was marked, prepped, and draped in the usual sterile fashion. All elements of maximal sterile barrier technique, including hand hygiene and cutaneous antisepsis with an antisepsis agent, were used. Local anesthesia was achieved with 1% lidocaine overlying the proposed needle course. Insertion of a 10-cm 5 Citizen [place] Twirl TV centesis catheter, through which approximately 2200 ml of a clear yellow ascites was then drained via wall suction. The centesis catheter was removed in its entirety, the chlorhexidine cleansed from the skin, and a sterile dressing placed. Patient tolerated the procedure well without complication. Estimated Blood Loss: Minimal Follow up with PCP: Follow-up: You must follow up with Aguila Castro MD in 3-5 days Follow up with Consultants: With PCP and GI Discharge Condition: improving Primary Discharge Diagnosis: Lower GI hemorrhage Other Active medical issues also addressed during this admission: Active Hospital Problems Diagnosis Hemorrhoids Lower GI hemorrhage Cirrhosis of liver with ascites (CMS/HCC) Hereditary benign telangiectasia C. difficile colitis Resolved Hospital Problems No resolved problems to display. HOSPITAL COURSE: HPI and hospital Course Viry Quach is a 59-year-old female with a history of hereditary hemorrhagic telangiectasia, cirrhosis with portal hypertension and ascites, esophageal varices, iron deficiency anemia with chronic blood loss, and hypothyroidism, who was admitted on 10/16/2024 for evaluation and management of rectal bleeding and symptomatic anemia. Her principal diagnosis was lower gastrointestinal hemorrhage, confirmed by clinical presentation, laboratory findings of anemia and leukocytosis, and endoscopic evaluation. Initial workup included an emergent bedside esophagogastroduodenoscopy (EGD) which revealed clean-based duodenal ulcers, small esophageal varices without high-risk stigmata, portal hypertensive gastropathy, and non-bleeding ectasias, but no active upper GI source of bleeding. Subsequent colonoscopy identified four large patchy angiodysplastic lesions in the ascending colon and cecum, which were treated with argon plasma coagulation (APC), as well as two sessile polyps (5 mm in the cecum and 3 mm in the sigmoid colon, both removed with cold snare), and large internal and external hemorrhoids. Therapeutic interventions included transfusion of packed red blood cells for symptomatic anemia, APC of colonic angiodysplasias, and ultimately excisional hemorrhoidectomy of three columns of mixed internal and external hemorrhoids on 10/19/2024, following colorectal surgery consultation and anoscopic confirmation of grade II-III hemorrhoids with stigmata of recent bleeding. Postoperatively, her rectal bleeding improved significantly and hemoglobin stabilized. During the admission, she was managed for cirrhosis with portal hypertension and ascites, includingtwo therapeutic paracenteses (3.6 L on 10/18 and 2.2 L on 10/23), and empiric ceftriaxone for spontaneous bacterial peritonitis prophylaxis, which was discontinued after surgery. Lactulose was held due to ongoing diarrhea. She continued oral vancomycin for a recent diagnosis of Clostridium difficile co litis, with improvement in leukocytosis and diarrhea. Her hypothyroidism was managed with levothyroxine. Other issues addressed included pain control post-hemorrhoidectomy, supportive care for anemia, andmonitoring for recurrent bleeding or infection. She remained hemodynamically stable throughout her hospitalization, with no evidence of active upper GI bleeding, and was transitioned to regular diet postoperatively. Discharge planning included outpatient follow-up with hepatology and her primary care provider, with anticipated disposition to home or [facility] facility depending on recovery and family support. In summary, Ms. Quach was admitted for lower GI hemorrhage in the setting of hereditary hemorrhagic telangiectasia, cirrhosis, and hemorrhoids, with diagnosis confirmed by endoscopic procedures andmanaged with transfusion, endoscopic therapy, and surgical hemorrhoidectomy, alongside supportive ma nagement of cirrhosis, ascites, and C. difficile colitis. OP follow up recommended with PCP and GI. She is planning to follow up with hepatology at [place]. Prescribed Protonix and lactulose on discharge. Defer lasix and spironolactone to PCP or GI as OP. PCP COMMUNICATION : Aguila Castro MD via [employer] communication MEDICATION CHANGES (significant): -started on Protonix and lactulose MEDICATION RECONCILIATION: Current and discharge medications reviewed and reconciled: Yes Consultants: IP CONSULT TO IV TEAM IP CONSULT TO IV TEAM IP CONSULT TO IV TEAM IP CONSULT TO IV TEAM IP CONSULT TO GI IP CONSULT TO IV TEAM IP CONSULT TO COLORECTAL SURGERY Procedures performed: Procedure(s) (LRB): HEMORRHOIDECTOMY (N/A) DISCHARGE MEDICATIONS: Medication List PAUSE taking these medications aspirin 81 mg Tablet, Delayed Release (E.C.) Wait to take this until your doctor or other care provider tells you to start again. Commonly known as: ECOTRIN EC Take 81 mg by mouth daily. Refills: 0 START taking these medications lactulose 10 gram/15 mL oral solution Commonly known as: ENULOSE Take 30 mL by mouth daily. Signed by: Dr. Mirta Guzmán Quantity: 900 mL Refills: 0 oxyCODONE-acetaminophen 5-325 mg tablet Commonly known as: Percocet Take 1 Tablet by mouth every 4 hours as needed for Pain, Moderate. Max Daily Amount: 6 Tablets Signed by: Dr. Nik Aguero Quantity: 30 Tablet Refills: 0 CONTINUE taking these medications carvediloL 6.25 mg tablet Commonly known as: Coreg Take 1 Tablet (6.25 mg) by mouth daily. Signed by: Dr. Parker Dickerson Quantity: 30 Tablet Refills: 3 cetirizine 10 mg tablet Commonly known as: ZyrTEC Take 10 mg by mouth daily. Refills: 0 HYDROcodone-acetaminophen 5-325 mg tablet Commonly known as: NORCO Take by mouth. PRN Refills: 0 IRON PS [id number] ACID ORAL Take by mouth. Refills: 0 [...] mouth 2 times daily. Signed by: Dr. Mirta Guzmán Quantity: 60 Tablet Refills: 0 sodium chloride [...] 1 Tablet by mouth daily. Refills: 0 vancomycin 125 mg Capsule Commonly known as: VANCOCIN Take 1 Capsule (125 mg) by mouth every 6 hours for 12 days. Signed by: Dr. Parker Palacios Quantity: 48 Capsule Refills: 0 Ask about: Should I take this medication? Where to Get Your Medications These medications were sent to [facility] [address] [place] [address] [address] [address] [id number] lactulose 10 gram/15 mL oral solution oxyCODONE-acetaminophen 5-325 mg tablet pantoprazole 40 mg Tablet, Delayed Release (E.C.) Future Appointments Date Time Provider Department Center 10/23/2024 1:00 PM [facility] 12/07/2024 7:30 AM Melquiades Ken FNP [facility] Activity level: up as tolerated Diet: DIET GENERAL Effective Now Wound Care: Not Applicable DISCHARGE EXAM: BP 128/65 (BP Location: Left arm, Patient Position (BP): Supine) Pulse 71 Temp 98 ??F (36.7 ??C) (Temporal) Resp 17 Ht 5' 9 (1.753 m) Wt 65 kg (143 lb 4.8 oz) SpO2 99% BMI 21.16 kg/m?? Last documented weight: Weight: 65 kg (143 lb 4.8 oz) (10/20/24 0300) General: alert, in no distress Neurologic: Grossly normal HEENT: atraumatic, Normocephalic, without obvious abnormality Lungs: clear to auscultation bilaterally, normal respiratory effort Heart: normal rate, regular rhythm, normal S1, S2, no murmurs, rubs, clicks or gallops Abdomen: Soft, non-tender. Bowel sounds normal. No masses, no organomegaly. Extremities: extremities normal, atraumatic, no cyanosis or edema, intact distal pulses, moves all extremities equally, no edema, redness or tenderness in the calves or thighs, normal strength, normal tone Skin: negative Home Healthcare Is this patient being discharged with Home Health? No Total time spent on discharge services today including examining and educating the patient and available family members, writing prescriptions and reviewing the discharge medication list, documentingthis discharge summary and coordinating outpatient care and follow up required >30 minutes. documented in this encounter Discharge Instructions * Discharge Instructions* Nya Bravo RN - 10/20/2024 9:02 AM CDT [facility] Colorectal Surgery [address] [place] [address] [address] [place] [address] Follow up in 4-6 weeks with Ai Sepulveda NP. Please call the office at the above number to make an appointment. Instructions for Home Care After Anorectal Surgery Diet Eat a soft, low fiber diet for 4 days, then slowly restart fiber back to a regular diet Drink plenty of fluids. Activity Light activity such as walking daily. Avoid straining. Do not drive while taking prescription pain medication. Pain Control Use prescribed medication as directed. You can use acetaminophen (Tylenol) 650 mg every 6 hours. The prescribed medication also contains Tylenol. Do not take more than 4000 mg in 24 hours. Miralax Take one dose a day. Avoid constipation Stool Softener (Colace or generic) Take 100 mg twice a day. Stop if you have diarrhea. After 5 days, take a fiber supplement (like Metamucil) once a day. If you develop constipation Take 2 Dulcolax tablets OR a glass of prune juice OR Milk of Magnesia daily until normal bowel movements resume. Warm Sitz Baths Sit in a warm bath, with or without Epsom salts. 3-4 times a day or as needed for pain/cleansing Bacitracin or Neosporin Ointment Apply to wounds 2 times a day. STOP AFTER 4 DAYS to avoid irritation. Then use A&D ointment or cocoa butter as needed. Absorbant cotton or gauze pad Use to cover wound as needed, 1-2 times a day. Change whenever wet ordirty. Additional Instructions: Resume your home medications unless otherwise directed by your physician Do not take Aspirin, Plavix, Coumadin or other blood-thinners until directed by your physician (usually ok after 5 days) Take an oral probiotic (for example, Florastor, Culturelle, Align, etc) daily if you are taking antibiotics after discharge. Continue for 1-2 days after finishing the course of antibiotics, and then you may discontinue. If you are prescribed Valium, take as needed for anal/rectal spasm. Avoid taking at the same time as the prescription pain medication. If you cannot urinate, sit in a hot bath and attempt to void. If unsuccessful, go to the emergency room. A small amount of bleeding is normal. If you develop heavy bleeding, please call your physician or go to the emergency room. AFTER HOURS Prescriptions are not refilled after business hours. If you are in need of additional medications, call the office on the next business day at [phone]. There is a physician on-call after hours for emergency reasons only. DO NOT SMOKE AND AVOID SECOND-HAND SMOKE. Tobacco smoke can delay the healing process by decreasingthe oxygen supply to your wound, & may increase your risk of infection. Smoking irritates the breathing passages and increases the risk of pneumonia, bronchitis, asthma and risk of blood clots. [facility] Discharge Instructions Discharge & Transfer patient to: Home Symptoms/Diagnosis: Lower GI hemorrhage Procedures Performed, if any: Procedure(s) (LRB): HEMORRHOIDECTOMY (N/A) Follow up PCP Please schedule follow up appointment with facility physician or PCP/ Aguila Castro MD, Please schedule follow up appointment in one week. Follow up consultants With GI and Colorectal Surgery If the office does not reach you to make a follow up appointment, please call [phone]. Additional problems: Active Hospital Problems Diagnosis Hemorrhoids Lower GI hemorrhage Cirrhosis of liver with ascites (CMS/HCC) Hereditary benign telangiectasia C. difficile colitis Resolved Hospital Problems No resolved problems to display. Labs: Recent Labs 10/20/24 2103 10/21/24 0610/21/24 0933 10/21/24 2215 10/22/24 0514 10/22/24 0923 10/22/24 2252 10/23/245 10/23/24 09 WBC -- 8.8 -- -- 6.1 -- -- 6.2 -- HGB 7.6* 7.8* 7.4* 7.3* 7.2* 7.8* 7.5* 7.7* 8.1* HCT 23.3* 23.7* 22.5* 22.8* 22.4* 24.8* 22.7* 24.1* 25.5* PLT -- 229 -- -- 219 -- -- 241 -- Recent Labs 10/21/2461010/22/24 0510/23/24 0455 NA 136 137 135* K 3.8 3.8 3.9 CL 104 105 103 CO2 24 24 22 CA 8.3* 8.1* 8.0* BUN 6* 7* 8 CREAT 0.83 0.74 0.71 GLUCOSE 104* 96 103* Recent Labs 10/21/2461010/22/24 0514 10/23/24 0455 TOTALPROTEIN 5.3* 5.1* 5.1* ALBUMIN 3.3* 3.1* 3.0* BILITOTAL 0.3 0.4 0.4 ALKPHOS 76 77 82 AST 24 23 24 ALT 19 17 18 No results for input(s): INR , PT in the last 72 hours. Invalid input(s): PTT Activity level: up as tolerated DIET: DIET GENERAL Effective Now Communicable Disease: [] MRSA [] C. Difficile [] VRE [] TB [x] Other: C Diff Follow up in the Emergency Room For any recurrence or worsening of admission concerns, chest pain, palpitations, shortness of breath, coughing blood, nausea, vomiting, diarrhea, pain, fever, chills, bleeding, bloody or tarry stools, change to urine or bowel output, Contact hospitalist office [phone] for questions if patients are [facility]. Contact [facility] at [phone] if patient needs a direct admission. Tell us about the patient and how we can help them. If we can provide the service that is needed, we will do the rest of the work. * Discharge Instr - Diet* Nya Bravo RN - 10/23/2024 12:31 PM CDT * Attachments The following attachments cannot be sent through Care Everywhere. * Clostridioides difficile colitis (Monegasque) * EGD (Upper Endoscopy): Post op (Monegasque) * Hemorrhoidectomy: Post op (Monegasque) * Hemorrhoidectomy: Returning Home: Video (Monegasque) * Anemia: Heavy Bleeding (Monegasque) * Blood Transfusions: General Info (Monegasque) * Paracentesis: General Info (Monegasque) * Lactulose (Monegasque) * Oxycodone (Monegasque) documented in this encounter Medications at Time of Discharge pantoprazole (PROTONIX) 40 mg Tablet, Delayed Release (E.C.) Take 1 Tablet (40 mg) by mouth 2 times daily. 60 Tablet 10/23/2024 lactulose (ENULOSE) 10 gram/15 mL oral solution Take 30 mL by mouth daily. 900 mL 10/23/2024 oxyCODONE-acetami nophen (Percocet) 5-325 mg tabletIndications :Hemorrhoids, unspecified hemorrhoid type Take 1 Tablet by mouth every 4 hours as needed for Pain, Moderate. Max Daily Amount: 6 Tablets 30 Tablet 10/19/2024 sodium chloride 0.9 % Parenteral Solution with [...] as needed for Nausea. 02/01/2023 IRON PS [id number] ACID ORAL Take by mouth. montelukast (SINGULAIR) [...] as of this encounter Progress Notes * Cem Becker PA - 10/23/2024 10:13 AM CDT Post Procedure Vascular/Interventional Radiology Note Pre-Radiology Procedure Diagnosis: Ascites Technical Procedure: US guided paracentesis Specimens removed: 2200 ml clear yellow ascites from the LLQ Findings: Tolerated procedure well. There were no immediate post-procedure complications. Estimated Blood Loss: Minimal Medications: 1% Lidocaine used for local anesthesia. Post-Radiology Procedure Diagnosis: as above NEHAL Rey 10/23/24 10:13 AM Cosigned by Anton Aleman MD at 10/23/2024 11:16 AM CDT * Jaden Guzmán MD - 10/22/2024 2:51 PM CDT Your life is our life's work [facility] Hospitalist/Hospital Medicine Progress Note LOS: 6 days Room/Bed: 7265/01 Patient name: Viry Quach Date of : 1965 HOSPITAL COURSE SUMMARY: HPI on ICU admission 59 y.o. female admitted 10/16/2024 with rectal bleeding. She presented with weakness and c/f anemia as well. She was recently seen here on 10/06 with bloody stools following endoscopy. She tested positive for C diff on 10/07 and was started on PO Vancomycin. She stated she has taken this for around a week without improvement in her diffuse watery stools with bright red diarrhea. She denied abdominalpain or fever. She was noted to have stable VS on arrival with mild tachycardia. Her ED workup was remarkable for leukocytosis at 15k, anemia at 8.4 - down from 10-11 range just a few days ago, and YARELY. Her LA was WDL. She received a unit of blood in the ED and GI was consulted. She was admitted tothe ICU for emergent bedside EGD and close monitoring. She has a history significant for hereditary hemorrhagic telangiectasia involving the colon, liver cirrhosis, esophageal varices, portal hypertension, iron deficiency anemia with chronic blood loss, hypothyroidism, H. Pylori gastritis, GERD, and CVA. 10/19: Hb is 6.7, will transfuse 2 unit PRBC, Colorectal surgery planning on hemorrhoidectomy. 10/20: Hemoglobin stable following transfusion. Currently recovering from hemorrhoid surgery. 10/21: Will request abdominal paracentesis today. 10/22: monitoring, doing well, paracentesis tomorrow Consultants: IP CONSULT TO IV TEAM IP CONSULT TO IV TEAM IP CONSULT TO IV TEAM IP CONSULT TO IV TEAM IP CONSULT TO GI IP CONSULT TO IV TEAM IP CONSULT TO COLORECTAL SURGERY SUBJECTIVE: Seen at bedside. Denies new concern OBJECTIVE: Temp (24hrs), Av.3 ??F (36.8 ??C), Min:97.9 ??F (36.6 ??C), Max:98.6 ??F (37 ??C) BP 118/58 (BP Location: Left arm, Patient Position (BP): Supine) Pulse 73 Temp 98.6 ??F (37 ??C) (Oral) Resp 18 Ht 5' 9 (1.753 m) Wt 65 kg (143 lb 4.8 oz) SpO2 96% BMI 21.16 kg/m?? Intake/Output Summary (Last 24 hours) at 10/22/2024 1451 Last data filed at 10/22/2024 1328 Gross per 24 hour Intake 515 ml Output -- Net 515 ml Last documented weight: Weight: 65 kg (143 lb 4.8 oz) (10/20/24 0300) EXAM: General: alert, in no distress Neurologic: Grossly normal HEENT: atraumatic, Normocephalic, without obvious abnormality Lungs: clear to auscultation bilaterally, normal respiratory effort Heart: normal rate, regular rhythm, normal S1, S2, no murmurs, rubs, clicks or gallops Abdomen: Soft, non-tender. Bowel sounds normal. No masses, no organomegaly. Extremities: extremities normal, atraumatic, no cyanosis or edema, intact distal pulses, moves all extremities equally, no edema, redness or tenderness in the calves or thighs, normal strength, normal tone Skin: negative LABORATORY: Recent Labs 10/19/24 1938 10/20/24 0302 10/20/24 0917 10/20/24 2103 10/21/24 0611 10/21/24 0933 10/21/24 2215 10/22/24 0514 10/22/24 0923 WBC -- 13.7* -- -- 8.8 -- -- 6.1 -- HGB 7.8* 8.2* 7.9* 7.6* 7.8* 7.4* 7.3* 7.2* 7.8* HCT 23.5* 24.8* 23.8* 23.3* 23.7* 22.5* 22.8* 22.4* 24.8* PLT -- 240 -- -- 229 -- -- 219 -- Recent Labs 10/20/2430110/21/24 0611 10/22/24 0514 NA 134* 136 137 K 4.1 3.8 3.8 CL 102 104 105 CO2 22 24 24 CA 8.1* 8.3* 8.1* BUN 7* 6* 7* CREAT 0.78 0.83 0.74 GLUCOSE 113* 104* 96 Recent Labs 10/20/2430110/21/24 0611 10/22/24 0514 TOTALPROTEIN 5.6* 5.3* 5.1* ALBUMIN 3.4* 3.3* 3.1* BILITOTAL 0.4 0.3 0.4 ALKPHOS 75 76 77 AST 23 24 23 ALT 17 19 17 No results for input(s): INR , PT in the last 72 hours. Invalid input(s): PTT No results for input(s): BASETROP , 2HRTROP , DELTA , 6HRTROP in the last 72 hours. Diagnostic testing reviewed by me: Medications were reviewed by me. Current Facility-Administered Medications: [] HYDROmorphone (PF) (DILAUDID) injection 0.3 mg, 0.3 mg, IV, every 4 hours PRN, Jaden Guzmán MD, 0.3 mg at 10/20/242055 oxyCODONE-acetaminophen (PERCOCET) 5-325 mg per tablet 2 Tablet, 2 Tablet, Oral, every 4 hours PRN,Ai Sepulveda NP, 2 Tablet at 10/22/24 1319 ipratropium-albuteroL (DUONEB) 0.5 mg-3 mg(2.5 mg base)/3 mL inhalation solution 3 mL, 3 mL, Inhalation, resp, every 4 hours PRN, Oliver Reid MD dextrose 5 % - sodium chloride 0.9 % infusion, , IV, see admin instructions, Ai Sepulveda NP dextrose 50% (D50) syringe 12.5 Gram, 12.5 Gram, IV, see admin instructions, Ai Sepulveda NP dextrose 50% (D50) syringe 25 Gram, 25 Gram, IV, see admin instructions, Ai Sepulveda NP glucagon HCL 1 mg/mL injection 1 mg, 1 mg, IM, see admin instructions, Ai Sepulveda NP carvediloL (COREG) tablet 3.125 mg, 3.125 mg, Oral, BID WITH meals, Ai Sepulveda NP, 3.125 mg at 10/22/24 0819 levothyroxine (SYNTHROID) tablet 50 mcg, 50 mcg, Oral, daily EARLY, Ai Sepulveda NP, 50 mcg at10/22/24 0537 traZODone (DESYREL) tablet 50 mg, 50 mg, Oral, daily BEDTIME, Ai Sepulveda NP, 50 mg at 10/21/242025 naloxone (NARCAN) 0.4 mg/mL injection 0.1-0.4 mg, 0.1-0.4 mg, IV, see admin instructions, Ai Sepulveda NP ondansetron (ZOFRAN) 4 mg/2 mL injection 4 mg, 4 mg, IV, every 6 hours PRN, Ai Sepulveda NP, 4mg at 10/20/24 0512 vancomycin (FIRVANQ) oral solution 125 mg, 125 mg, Oral, every 6 hours, Ai Sepulveda NP, 125 mg at 10/22/24 0959 pantoprazole (PROTONIX) 40 mg in sodium chloride 0.9% 10 mL injection, 40 mg, IV, BID, Ai Sepulveda NP, 40 mg at 10/22/24 1000 [Held by Provider] lactulose (ENULOSE) 10 gram/15 mL oral solution 30 mL, 30 mL, Oral, TID, Alvarez III, Jeb O, DO Primary discharge diagnosis: Lower GI hemorrhage Other active medical issues also addressed during this admission: Active Hospital Problems Diagnosis Hemorrhoids Lower GI hemorrhage Cirrhosis of liver with ascites (CMS/HCC) Hereditary benign telangiectasia C. difficile colitis Resolved Hospital Problems No resolved problems to display. ASSESSMENT AND PLAN: #Lower GI bleeding EGD on 10/16 showed clean-based ulcers in the duodenum likely secondary to recent APC treatment upper left undisturbed, small esophageal varices without high risk stigmata for bleeding that were left undisturbed and portal hypertensive gastropathy that was not actively bleeding. Colonoscopy on 10/17 showed 4 large patchy angiodysplastic lesions without bleeding in the ascending colon and cecum s/p APC. A 5 mm sessile polyp was removed from the cecum, 3 mm sessile polyp was removed from the sigmoid colon. Also noted to have large external and internal hemorrhoids Status post 2 unit PRBC transfusion.(10/19) Status post hemorrhoidectomy (10/19) -On empiric abx for SBP prophylaxis with GIH. Awaiting postoperative recovery #Cirrhosis with ascites on admission Recent dx, unclear etiology. Evidence portal hypertension and esophageal varices. One prior paracentesis, 2 L drained 10/13. Repeat paracentesis done 10/18, 3.6 L removed. GI following. Plan -OP follow up with hepatology at [place] planned. - Will plan paracentesis today. #Recent diagnosis of C. difficile colitis prior to admission. On PO Vancomycin. 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 DVT prophylaxis: DVT Pharmacologic Prophylaxis: Patient has a contraindication for pharmacologic prophylaxis. Please refer to the orders for additional details. Code status: Full Code Outpatient follow up: PCP Anticipated Disposition Location: Timeframe: 10/22/2024 Criteria: Patient's understanding of illness: yes Primary family contact: MDM complexity: [] Mild [x] Moderate [] High Jaden Guzmán MD 10/22/2024, 2:51 PM * Jaden Guzmán MD - 10/21/2024 11:16 AM CDT Your life is our life's work [facility] Hospitalist/Hospital Medicine Progress Note LOS: 5 days Room/Bed: 7265/01 Patient name: Viry Quach Date of : 1965 HOSPITAL COURSE SUMMARY: HPI on ICU admission 59 y.o. female admitted 10/16/2024 with rectal bleeding. She presented with weakness and c/f anemia as well. She was recently seen here on 10/06 with bloody stools following endoscopy. She tested positive for C diff on 10/07 and was started on PO Vancomycin. She stated she has taken this for around a week without improvement in her diffuse watery stools with bright red diarrhea. She denied abdominalpain or fever. She was noted to have stable VS on arrival with mild tachycardia. Her ED workup was remarkable for leukocytosis at 15k, anemia at 8.4 - down from 10-11 range just a few days ago, and YARELY. Her LA was WDL. She received a unit of blood in the ED and GI was consulted. She was admitted tothe ICU for emergent bedside EGD and close monitoring. She has a history significant for hereditary hemorrhagic telangiectasia involving the colon, liver cirrhosis, esophageal varices, portal hypertension, iron deficiency anemia with chronic blood loss, hypothyroidism, H. Pylori gastritis, GERD, and CVA. 10/19: Hb is 6.7, will transfuse 2 unit PRBC, Colorectal surgery planning on hemorrhoidectomy. 10/20: Hemoglobin stable following transfusion. Currently recovering from hemorrhoid surgery. 10/21: Will request abdominal paracentesis today. Consultants: IP CONSULT TO IV TEAM IP CONSULT TO IV TEAM IP CONSULT TO IV TEAM IP CONSULT TO IV TEAM IP CONSULT TO GI IP CONSULT TO IV TEAM IP CONSULT TO COLORECTAL SURGERY SUBJECTIVE: Seen at bedside. Denies new concern OBJECTIVE: Temp (24hrs), Av.5 ??F (36.9 ??C), Min:97.3 ??F (36.3 ??C), Max:99.2 ??F (37.3 ??C) BP 105/49 (BP Location: Left arm, Patient Position (BP): Supine) Pulse 70 Temp 98.9 ??F (37.2 ??C) (Oral) Resp 20 Ht 5' 9 (1.753 m) Wt 65 kg (143 lb 4.8 oz) SpO2 93% BMI 21.16 kg/m?? No intake or output data in the 24 hours ending 10/21/24 1116 Last documented weight: Weight: 65 kg (143 lb 4.8 oz) (10/20/24 0300) EXAM: General: alert, in no distress Neurologic: Grossly normal HEENT: atraumatic, Normocephalic, without obvious abnormality Lungs: clear to auscultation bilaterally, normal respiratory effort Heart: normal rate, regular rhythm, normal S1, S2, no murmurs, rubs, clicks or gallops Abdomen: Soft, non-tender. Bowel sounds normal. No masses, no organomegaly. Extremities: extremities normal, atraumatic, no cyanosis or edema, intact distal pulses, moves all extremities equally, no edema, redness or tenderness in the calves or thighs, normal strength, normal tone Skin: negative LABORATORY: Recent Labs 10/18/24 2130 10/19/24 0552 10/19/24 1938 10/20/24 0302 10/20/24 0917 10/20/24 2103 10/21/24 0611 10/21/24 0933 WBC -- 7.7 -- 13.7* -- -- 8.8 -- HGB 7.0* 6.7* 7.8* 8.2* 7.9* 7.6* 7.8* 7.4* HCT 21.2* 20.3* 23.5* 24.8* 23.8* 23.3* 23.7* 22.5* PLT -- 174 -- 240 -- -- 229 -- Recent Labs 10/20/24 0302 10/21/24 0611 NA 134* 136 K 4.1 3.8 CL 102 104 CO2 22 24 CA 8.1* 8.3* BUN 7* 6* CREAT 0.78 0.83 GLUCOSE 113* 104* Recent Labs 10/20/24 0302 10/21/24 0611 TOTALPROTEIN 5.6* 5.3* ALBUMIN 3.4* 3.3* BILITOTAL 0.4 0.3 ALKPHOS 75 76 AST 23 24 ALT 17 19 No results for input(s): INR , PT in the last 72 hours. Invalid input(s): PTT No results for input(s): BASETROP , 2HRTROP , DELTA , 6HRTROP in the last 72 hours. Diagnostic testing reviewed by me: Medications were reviewed by me. Current Facility-Administered Medications: HYDROmorphone (PF) (DILAUDID) injection 0.3 mg, 0.3 mg, IV, every 4 hours PRN, Jaden Guzmán MD, 0.3 mg at 10/20/242055 oxyCODONE-acetaminophen (PERCOCET) 5-325 mg per tablet 2 Tablet, 2 Tablet, Oral, every 4 hours PRN,Ai Sepulveda NP, 2 Tablet at 10/21/24 0835 ipratropium-albuteroL (DUONEB) 0.5 mg-3 mg(2.5 mg base)/3 mL inhalation solution 3 mL, 3 mL, Inhalation, resp, every 4 hours PRN, Oliver Reid MD dextrose 5 % - sodium chloride 0.9 % infusion, , IV, see admin instructions, Ai Sepulveda NP dextrose 50% (D50) syringe 12.5 Gram, 12.5 Gram, IV, see admin instructions, Ai Sepulveda NP dextrose 50% (D50) syringe 25 Gram, 25 Gram, IV, see admin instructions, Ai Sepulveda NP glucagon HCL 1 mg/mL injection 1 mg, 1 mg, IM, see admin instructions, Ai Sepulveda NP insulin lispro (HumaLOG,ADMELOG) injection 0-6 Units, 0-6 Units, subCUT, TID WITH meals, Ai Sepulveda NP carvediloL (COREG) tablet 3.125 mg, 3.125 mg, Oral, BID WITH meals, Ai Sepulveda NP, 3.125 mg at 10/21/24 0835 levothyroxine (SYNTHROID) tablet 50 mcg, 50 mcg, Oral, daily EARLY, Ai Sepulveda NP, 50 mcg at10/21/24 05 traZODone (DESYREL) tablet 50 mg, 50 mg, Oral, daily BEDTIME, Ai Sepulveda NP, 50 mg at 10/20/242055 naloxone (NARCAN) 0.4 mg/mL injection 0.1-0.4 mg, 0.1-0.4 mg, IV, see admin instructions, Ai Sepulveda NP ondansetron (ZOFRAN) 4 mg/2 mL injection 4 mg, 4 mg, IV, every 6 hours PRN, Ai Sepulveda NP, 4mg at 10/20/24 0512 [COMPLETED] cefTRIAXone (ROCEPHIN) 2,000 mg in sodium chloride 0.9% 50 mL IVPB (MBP), 2,000 mg, IV,every 24 hours (daily), Ai Sepulveda NP, Stopped at 10/20/242128 vancomycin (FIRVANQ) oral solution 125 mg, 125 mg, Oral, every 6 hours, Ai Sepulveda L, EROSION CONTROL COORDINATOR, 125 mg at 10/21/24 0835 pantoprazole (PROTONIX) 40 mg in sodium chloride 0.9% 10 mL injection, 40 mg, IV, BID, Ai Sepulveda L, EROSION CONTROL COORDINATOR, 40 mg at 10/21/24 0835 [Held by Provider] lactulose (ENULOSE) 10 gram/15 mL oral solution 30 mL, 30 mL, Oral, TID, Alvarez III, Jeb O, DO Primary discharge diagnosis: Lower GI hemorrhage Other active medical issues also addressed during this admission: Active Hospital Problems Diagnosis Hemorrhoids Lower GI hemorrhage Cirrhosis of liver with ascites (CMS/HCC) Hereditary benign telangiectasia C. difficile colitis Resolved Hospital Problems No resolved problems to display. ASSESSMENT AND PLAN: #Lower GI bleeding EGD on 10/16 showed clean-based ulcers in the duodenum likely secondary to recent APC treatment upper left undisturbed, small esophageal varices without high risk stigmata for bleeding that were left undisturbed and portal hypertensive gastropathy that was not actively bleeding. Colonoscopy on 10/17 showed 4 large patchy angiodysplastic lesions without bleeding in the ascending colon and cecum s/p APC. A 5 mm sessile polyp was removed from the cecum, 3 mm sessile polyp was removed from the sigmoid colon. Also noted to have large external and internal hemorrhoids Status post 2 unit PRBC transfusion.(10/19) Status post hemorrhoidectomy (10/19) -On empiric abx for SBP prophylaxis with GIH. Awaiting postoperative recovery #Cirrhosis with ascites on admission Recent dx, unclear etiology. Evidence portal hypertension and esophageal varices. One prior paracentesis, 2 L drained 10/13. Repeat paracentesis done 10/18, 3.6 L removed. GI following. Plan -OP follow up with hepatology at [place] planned. - Will plan paracentesis today. #Recent diagnosis of C. difficile colitis prior to admission. On PO Vancomycin. 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 DVT prophylaxis: DVT Pharmacologic Prophylaxis: Patient has a contraindication for pharmacologic prophylaxis. Please refer to the orders for additional details. Code status: Full Code Outpatient follow up: PCP Anticipated Disposition Location: Timeframe: 10/22/2024 Criteria: Patient's understanding of illness: yes Primary family contact: MDM complexity: [] Mild [x] Moderate [] High Jaden Ramirez, MD 10/21/2024, 11:16 AM * Jaden Guzmán MD - 10/20/2024 1:30 PM CDT Images from the original note were not included. Your life is our life's work [facility] Hospitalist/Hospital Medicine Progress Note LOS: 4 days Room/Bed: 7265/01 Patient name: Viry Quach Date of : 1965 HOSPITAL COURSE SUMMARY: HPI on ICU admission 59 y.o. female admitted 10/16/2024 with rectal bleeding. She presented with weakness and c/f anemia as well. She was recently seen here on 10/06 with bloody stools following endoscopy. She tested positive for C diff on 10/07 and was started on PO Vancomycin. She stated she has taken this for around a week without improvement in her diffuse watery stools with bright red diarrhea. She denied abdominalpain or fever. She was noted to have stable VS on arrival with mild tachycardia. Her ED workup was remarkable for leukocytosis at 15k, anemia at 8.4 - down from 10-11 range just a few days ago, and YARELY. Her LA was WDL. She received a unit of blood in the ED and GI was consulted. She was admitted tothe ICU for emergent bedside EGD and close monitoring. She has a history significant for hereditary hemorrhagic telangiectasia involving the colon, liver cirrhosis, esophageal varices, portal hypertension, iron deficiency anemia with chronic blood loss, hypothyroidism, H. Pylori gastritis, GERD, and CVA. 10/19: Hb is 6.7, will transfuse 2 unit PRBC, Colorectal surgery planning on hemorrhoidectomy. 10/20: Hemoglobin stable following transfusion. Currently recovering from hemorrhoid surgery. Consultants: IP CONSULT TO IV TEAM IP CONSULT TO IV TEAM IP CONSULT TO IV TEAM IP CONSULT TO IV TEAM IP CONSULT TO GI IP CONSULT TO IV TEAM IP CONSULT TO COLORECTAL SURGERY SUBJECTIVE: Seen at bedside. Denies new concern OBJECTIVE: Temp (24hrs), Av.3 ??F (36.8 ??C), Min:98 ??F (36.7 ??C), Max:98.6 ??F (37 ??C) BP 119/57 (BP Location: Left arm, Patient Position (BP): Supine) Pulse 73 Temp 98.6 ??F (37 ??C) (Oral) Resp 16 Ht 5' 9 (1.753 m) Wt 65 kg (143 lb 4.8 oz) SpO2 94% BMI 21.16 kg/m?? Intake/Output Summary (Last 24 hours) at 10/20/2024 1330 Last data filed at 10/20/2024 0300 Gross per 24 hour Intake 1300 ml Output -- Net 1300 ml Last documented weight: Weight: 65 kg (143 lb 4.8 oz) (10/20/24 0300) EXAM: General: alert, in no distress Neurologic: Grossly normal HEENT: atraumatic, Normocephalic, without obvious abnormality Lungs: clear to auscultation bilaterally, normal respiratory effort Heart: normal rate, regular rhythm, normal S1, S2, no murmurs, rubs, clicks or gallops Abdomen: Soft, non-tender. Bowel sounds normal. No masses, no organomegaly. Extremities: extremities normal, atraumatic, no cyanosis or edema, intact distal pulses, moves all extremities equally, no edema, redness or tenderness in the calves or thighs, normal strength, normal tone Skin: negative LABORATORY: Recent Labs 10/17/24 1649 10/18/24 0021 10/18/24 0713 10/18/24 2130 10/19/24 0552 10/19/24 1938 10/20/24 0302 10/20/24 0917 WBC -- -- 9.7 -- 7.7 -- 13.7* -- HGB 8.2* 8.0* 8.0* 7.0* 6.7* 7.8* 8.2* 7.9* HCT 24.3* 23.1* 23.8* 21.2* 20.3* 23.5* 24.8* 23.8* PLT -- -- 207 -- 174 -- 240 -- Recent Labs 10/18/24 0713 10/20/24 0302 NA 133* 134* K 3.4* 4.1 CL 101 102 CO2 23 22 CA 7.6* 8.1* BUN 14 7* CREAT 0.94 0.78 GLUCOSE 182* 113* Recent Labs 10/18/24 0713 10/20/24 0302 TOTALPROTEIN 5.0* 5.6* ALBUMIN 3.3* 3.4* BILITOTAL 0.3 0.4 ALKPHOS 54 75 AST 18 23 ALT 14 17 No results for input(s): INR , PT in the last 72 hours. Invalid input(s): PTT No results for input(s): BASETROP , 2HRTROP , DELTA , 6HRTROP in the last 72 hours. Diagnostic testing reviewed by me: Medications were reviewed by me. Current Facility-Administered Medications: HYDROmorphone (PF) (DILAUDID) injection 0.3 mg, 0.3 mg, IV, every 4 hours PRN, Jaden Guzmán MD, 0.3 mg at 10/20/24 1101 oxyCODONE-acetaminophen (PERCOCET) 5-325 mg per tablet 2 Tablet, 2 Tablet, Oral, every 4 hours PRN,Ai Sepulveda NP, 2 Tablet at 10/20/24 0844 ipratropium-albuteroL (DUONEB) 0.5 mg-3 mg(2.5 mg base)/3 mL inhalation solution 3 mL, 3 mL, Inhalation, resp, every 4 hours PRN, Oliver Reid MD [COMPLETED] HYDROmorphone (PF) (DILAUDID) injection 0.5 mg, 0.5 mg, IV, every 4 hours PRN, Kike Terrell MD, 0.5 mg at 10/20/24 0512 [DISCONTINUED] lactated ringers infusion, , IV, post-proc continuous, Oliver Reid MD [DISCONTINUED] fentaNYL PF (SUBLIMAZE) 50 mcg/mL injection 50 mcg, 50 mcg, IV, post-proc every 3 minutes PRN, Oliver Reid MD [DISCONTINUED] HYDROmorphone (PF) (DILAUDID) injection 0.5 mg, 0.5 mg, IV, post- proc every 5 minutes PRN, Oliver Reid MD [DISCONTINUED] diphenhydrAMINE (BENADRYL) injection 12.5 mg, 12.5 mg, IV, post- proc one time PRN, Oliver Reid MD [DISCONTINUED] haloperidol lactate (HALDOL) injection 1 mg, 1 mg, IV, post-proc one time PRN, Oliver Reid MD [DISCONTINUED] diphenhydrAMINE (BENADRYL) injection 12.5 mg, 12.5 mg, IV, post- proc one time PRN, Oliver Reid MD dextrose 5 % - sodium chloride 0.9 % infusion, , IV, see admin instructions, Ai Sepulveda NP dextrose 50% (D50) syringe 12.5 Gram, 12.5 Gram, IV, see admin instructions, Ai Sepulveda NP dextrose 50% (D50) syringe 25 Gram, 25 Gram, IV, see admin instructions, Ai Sepluveda NP glucagon HCL 1 mg/mL injection 1 mg, 1 mg, IM, see admin instructions, Ai Sepulveda NP insulin lispro (HumaLOG,ADMELOG) injection 0-6 Units, 0-6 Units, subCUT, TID WITH meals, Ai Sepulveda NP carvediloL (COREG) tablet 3.125 mg, 3.125 mg, Oral, BID WITH meals, Ai Sepulveda NP, 3.125 mg at 10/20/24 0843 levothyroxine (SYNTHROID) tablet 50 mcg, 50 mcg, Oral, daily EARLY, Ai Sepulveda NP, 50 mcg at10/20/24 0508 traZODone (DESYREL) tablet 50 mg, 50 mg, Oral, daily BEDTIME, Ai Sepulveda NP, 50 mg at 10/19/24 2018 naloxone (NARCAN) 0.4 mg/mL injection 0.1-0.4 mg, 0.1-0.4 mg, IV, see admin instructions, Ai Sepulveda NP ondansetron (ZOFRAN) 4 mg/2 mL injection 4 mg, 4 mg, IV, every 6 hours PRN, Ai Sepulveda NP, 4mg at 10/20/24 0512 cefTRIAXone (ROCEPHIN) 2,000 mg in sodium chloride 0.9% 50 mL IVPB (MBP), 2,000 mg, IV, every 24 hours (daily), Ai Sepulveda NP, Stopped at 10/19/242052 vancomycin (FIRVANQ) oral solution 125 mg, 125 mg, Oral, every 6 hours, Ai Sepulveda NP, 125 mg at 10/20/24 08 pantoprazole (PROTONIX) 40 mg in sodium chloride 0.9% 10 mL injection, 40 mg, IV, BID, Ai Sepulveda NP, 40 mg at 10/20/24 0843 [Held by Provider] lactulose (ENULOSE) 10 gram/15 mL oral solution 30 mL, 30 mL, Oral, TID, Alvarez III, Jeb O, DO [DISCONTINUED] HYDROmorphone (PF) (DILAUDID) injection 0.3 mg, 0.3 mg, IV, every 3 hours PRN, Ai Sepulveda NP, 0.3 mg at 10/19/24 0521 Primary discharge diagnosis: Lower GI hemorrhage Other active medical issues also addressed during this admission: Active Hospital Problems Diagnosis Hemorrhoids Lower GI hemorrhage Cirrhosis of liver with ascites (CMS/HCC) Hereditary benign telangiectasia C. difficile colitis Resolved Hospital Problems No resolved problems to display. ASSESSMENT AND PLAN: #Lower GI bleeding EGD on 10/16 showed clean-based ulcers in the duodenum likely secondary to recent APC treatment upper left undisturbed, small esophageal varices without high risk stigmata for bleeding that were left undisturbed and portal hypertensive gastropathy that was not actively bleeding. Colonoscopy on 10/17 showed 4 large patchy angiodysplastic lesions without bleeding in the ascending colon and cecum s/p APC. A 5 mm sessile polyp was removed from the cecum, 3 mm sessile polyp was removed from the sigmoid colon. Also noted to have large external and internal hemorrhoids Status post 2 unit PRBC transfusion.(10/19) Status post hemorrhoidectomy (10/19) -On empiric abx for SBP prophylaxis with GIH. Awaiting postoperative recovery #Cirrhosis with ascites on admission Recent dx, unclear etiology. Evidence portal hypertension and esophageal varices. One prior paracentesis, 2 L drained 10/13. Repeat paracentesis done 10/18, 3.6 L removed. GI following. Plan -OP follow up with hepatology at [place] planned. #Recent diagnosis of C. difficile colitis prior to admission. On PO Vancomycin. 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 DVT prophylaxis: DVT Pharmacologic Prophylaxis: Patient has a contraindication for pharmacologic prophylaxis. Please refer to the orders for additional details. Code status: Full Code Outpatient follow up: PCP Anticipated Disposition Location: Timeframe: 10/22/2024 Criteria: Patient's understanding of illness: yes Primary family contact: MDM complexity: [] Mild [x] Moderate [] High Jaden Guzmán MD 10/20/2024, 1:30 PM * Yocasta Dickinson FNP - 10/20/2024 8:47 AM CDT Colon & Rectal Surgery Patient seen and examined, awake in bed. Reports pain, controlled with meds. Having bowel function.Reports blood per rectum significantly improved, only scant blood now. No complaints. Vitals: 10/20/24 0808 BP: 119/57 Pulse: 73 Resp: 16 Temp: 98.6 ??F (37 ??C) SpO2: 94% Gen: NAD, A&O Cardio: RRR Pulm: Nonlabored respirations on RA Abd: Soft, ND. Ext: Warm, well perfused, no edema Neuro: Neurologically intact A/P -patient denies significant blood per rectum since surgery. Hgb stable. Regular diet. If hgb remains stable without significant blood per rectum, ok to discharge from surgical standpoint. Surgery will sign off. Please call with questions/concerns. Current hospital problem list: Active Hospital Problems Diagnosis Hemorrhoids Lower GI hemorrhage Cirrhosis of liver with ascites (CMS/HCC) Hereditary benign telangiectasia C. difficile colitis Resolved Hospital Problems No resolved problems to display. BERKLEY Suárez Cosigned by Emeli Slater DO at 10/20/2024 9:57 AM CDT * Crescencio Aguero MD - 10/19/2024 1:55 PM CDT She did well with her hemorrhoid surgery today. I anticipate that if she does not have significant clinical bleeding in the next couple of days then if her hemoglobin remained stable that she can discharge home from my perspective. * Jaden Guzmán MD - 10/19/2024 9:31 AM CDT Images from the original note were not included. Your life is our life's work [facility] Hospitalist/Hospital Medicine Progress Note LOS: 3 days Room/Bed: 7265/01 Patient name: Viry Quach Date of : 1965 HOSPITAL COURSE SUMMARY: HPI on ICU admission 59 y.o. female admitted 10/16/2024 with rectal bleeding. She presented with weakness and c/f anemia as well. She was recently seen here on 10/06 with bloody stools following endoscopy. She tested positive for C diff on 10/07 and was started on PO Vancomycin. She stated she has taken this for around a week without improvement in her diffuse watery stools with bright red diarrhea. She denied abdominalpain or fever. She was noted to have stable VS on arrival with mild tachycardia. Her ED workup was remarkable for leukocytosis at 15k, anemia at 8.4 - down from 10-11 range just a few days ago, and YARELY. Her LA was WDL. She received a unit of blood in the ED and GI was consulted. She was admitted tothe ICU for emergent bedside EGD and close monitoring. She has a history significant for hereditary hemorrhagic telangiectasia involving the colon, liver cirrhosis, esophageal varices, portal hypertension, iron deficiency anemia with chronic blood loss, hypothyroidism, H. Pylori gastritis, GERD, and CVA. 10/19: Hb is 6.7, will transfuse 2 unit PRBC, Colorectal surgery planning on hemorrhoidectomy. Consultants: IP CONSULT TO IV TEAM IP CONSULT TO IV TEAM IP CONSULT TO IV TEAM IP CONSULT TO IV TEAM IP CONSULT TO GI IP CONSULT TO COLORECTAL SURGERY SUBJECTIVE: Seen at bedside. Denies new concern OBJECTIVE: Temp (24hrs), Av.1 ??F (36.7 ??C), Min:97.3 ??F (36.3 ??C), Max:99.3 ??F (37.4 ??C) BP 136/76 Pulse 74 Temp 98.2 ??F (36.8 ??C) (Oral) Resp 15 Ht 5' 9 (1.753 m) Wt 68.7 kg (151 lb 7.3 oz) SpO2 95% BMI 22.37 kg/m?? Intake/Output Summary (Last 24 hours) at 10/19/2024 1432 Last data filed at 10/19/2024 1316 Gross per 24 hour Intake 1000 ml Output 0 ml Net 1000 ml Last documented weight: Weight: 68.7 kg (151 lb 7.3 oz) (10/18/24 0300) EXAM: General: alert, in no distress Neurologic: Grossly normal HEENT: atraumatic, Normocephalic, without obvious abnormality Lungs: clear to auscultation bilaterally, normal respiratory effort Heart: normal rate, regular rhythm, normal S1, S2, no murmurs, rubs, clicks or gallops Abdomen: Soft, non-tender. Bowel sounds normal. No masses, no organomegaly. Extremities: extremities normal, atraumatic, no cyanosis or edema, intact distal pulses, moves all extremities equally, no edema, redness or tenderness in the calves or thighs, normal strength, normal tone Skin: negative LABORATORY: Recent Labs 10/16/24204110/17/24 0037 10/17/24 0556 10/17/24 1649 10/18/24 0021 10/18/24 0713 10/18/24 2130 10/19/24 0552 WBC 15.5* -- 14.2* -- -- 9.7 -- 7.7 HGB 8.4* 7.6* 7.2* 8.2* 8.0* 8.0* 7.0* 6.7* HCT 25.2* 22.2* 21.3* 24.3* 23.1* 23.8* 21.2* 20.3* PLT 309 -- 253 -- -- 207 -- 174 Recent Labs 10/16/24204110/17/24 0556 10/18/24 0713 NA 132* 132* 133* K 3.9 3.9 3.4* CL 101 100 101 CO2 21* 21* 23 CA 8.1* 7.8* 7.6* BUN 18 18 14 CREAT 1.12* 1.10* 0.94 GLUCOSE 119* 141* 182* Recent Labs 10/16/24 2042 10/17/24 0556 10/18/24 0713 TOTALPROTEIN 5.5* 5.2* 5.0* ALBUMIN 3.4* 3.1* 3.3* BILITOTAL 0.8 0.4 0.3 ALKPHOS 59 54 54 AST 18 17 18 ALT 17 15 14 Recent Labs 10/16/242041 INR 1.2 PT 15.9* No results for input(s): BASETROP , 2HRTROP , DELTA , 6HRTROP in the last 72 hours. Diagnostic testing reviewed by me: Medications were reviewed by me. Current Facility-Administered Medications: oxyCODONE-acetaminophen (PERCOCET) 5-325 mg per tablet 2 Tablet, 2 Tablet, Oral, every 4 hours PRN,Ai Sepulveda NP ipratropium-albuteroL (DUONEB) 0.5 mg-3 mg(2.5 mg base)/3 mL inhalation solution 3 mL, 3 mL, Inhalation, resp, every 4 hours PRN, Oliver Reid MD [DISCONTINUED] lactated ringers infusion, , IV, post-proc continuous, Oliver Reid MD [DISCONTINUED] fentaNYL PF (SUBLIMAZE) 50 mcg/mL injection 50 mcg, 50 mcg, IV, post-proc every 3 minutes PRN, Oliver Reid MD [DISCONTINUED] HYDROmorphone (PF) (DILAUDID) injection 0.5 mg, 0.5 mg, IV, post- proc every 5 minutes PRN, Oliver Reid MD [DISCONTINUED] diphenhydrAMINE (BENADRYL) injection 12.5 mg, 12.5 mg, IV, post- proc one time PRN, Oliver Reid MD [DISCONTINUED] haloperidol lactate (HALDOL) injection 1 mg, 1 mg, IV, post-proc one time PRN, Oliver Reid MD [DISCONTINUED] diphenhydrAMINE (BENADRYL) injection 12.5 mg, 12.5 mg, IV, post- proc one time PRN, Oliver Reid MD [DISCONTINUED] bacitracin-polymyxin B 500-10,000 unit/gram topical ointment, , , intra-proc PRN, Crescencio Aguero MD, 5 Gram at 10/19/24 1256 [DISCONTINUED] BUPivacaine-EPINEPHrine (PF) (SENSORCAINE MPF WITH EPI) 0.5 %- 1:200,000 injection, ,, intra-proc PRN, Crescencio Aguero MD, 30 mL at 10/19/24 1256 dextrose 5 % - sodium chloride 0.9 % infusion, , IV, see admin instructions, Ai Sepulveda NP dextrose 50% (D50) syringe 12.5 Gram, 12.5 Gram, IV, see admin instructions, Ai Sepulveda NP dextrose 50% (D50) syringe 25 Gram, 25 Gram, IV, see admin instructions, Ai Sepulveda NP glucagon HCL 1 mg/mL injection 1 mg, 1 mg, IM, see admin instructions, Ai Sepulveda NP insulin lispro (HumaLOG,ADMELOG) injection 0-6 Units, 0-6 Units, subCUT, TID WITH meals, Ai Sepulveda NP carvediloL (COREG) tablet 3.125 mg, 3.125 mg, Oral, BID WITH meals, Ai Sepulveda NP, 3.125 mg at 10/18/24 1848 levothyroxine (SYNTHROID) tablet 50 mcg, 50 mcg, Oral, daily EARLY, Ai Sepulveda NP, 50 mcg at10/19/24 0515 traZODone (DESYREL) tablet 50 mg, 50 mg, Oral, daily BEDTIME, Ai Sepulveda NP, 50 mg at 10/18/24 2152 naloxone (NARCAN) 0.4 mg/mL injection 0.1-0.4 mg, 0.1-0.4 mg, IV, see admin instructions, Ai Sepulveda NP ondansetron (ZOFRAN) 4 mg/2 mL injection 4 mg, 4 mg, IV, every 6 hours PRN, Ai Sepulveda NP, 4mg at 10/18/24 0406 cefTRIAXone (ROCEPHIN) 2,000 mg in sodium chloride 0.9% 50 mL IVPB (MBP), 2,000 mg, IV, every 24 hours (daily), Ai Sepulveda NP, Stopped at 10/18/24 2231 vancomycin (FIRVANQ) oral solution 125 mg, 125 mg, Oral, every 6 hours, Ai Sepulveda NP, 125 mg at 10/19/24 0515 pantoprazole (PROTONIX) 40 mg in sodium chloride 0.9% 10 mL injection, 40 mg, IV, BID, Ai Sepulveda NP, 40 mg at 10/19/24 0909 [Held by Provider] lactulose (ENULOSE) 10 gram/15 mL oral solution 30 mL, 30 mL, Oral, TID, Alvarez III, Jeb O, DO HYDROmorphone (PF) (DILAUDID) injection 0.3 mg, 0.3 mg, IV, every 3 hours PRN, Ai Sepulveda NP, 0.3 mg at 10/19/24 0521 [DISCONTINUED] replacement reminder - Potassium, 1 Each, See Admin Instructions, see admin instructions, Cassie Persaud PA [DISCONTINUED] replacement reminder-Magnesium, 1 Each, See Admin Instructions, see admin instructions, Cassie Persaud PA [DISCONTINUED] replacement reminder - Phosphorus, 1 Each, See Admin Instructions, see admin instructions, Cassie Persaud PA [DISCONTINUED] replacement reminder-Calcium, 1 Each, See Admin Instructions, see admin instructions, Cassie Persaud PA Facility-Administered Medications Ordered in Other Encounters: [DISCONTINUED] midazolam (VERSED) injection, , IV, intra-proc PRN, Deric Ha CRNA, 2 mg at 10/19/24 1204 [DISCONTINUED] fentaNYL PF (SUBLIMAZE) 50 mcg/mL injection, , IV, intra-proc PRN, Deric Ha CRNA, 50 mcg at 10/19/24 1245 [DISCONTINUED] lidocaine PF 2% (XYLOCAINE MPF) injection, , IV, intra-proc PRN, Deric Ha CRNA, 2.5 mL at 10/19/24 1217 [DISCONTINUED] propofoL (DIPRIVAN) injection, , IV, intra-proc PRN, Deric Ha CRNA, 150 mg at 10/19/24 1217 [DISCONTINUED] rocuronium injection, , IV, intra-proc PRN, Leland, Deric Perez, LIVE AMMUNITION INSPECTOR, 50 mg at 10/19/24 1217 [DISCONTINUED] sodium chloride 0.9 % infusion, , IV, intra-proc continuous PRN, Leland, Deric Quinteroy, LIVE AMMUNITION INSPECTOR, Stopped-Anesthesia at 10/19/24 1317 [DISCONTINUED] dexAMETHasone (DECADRON) injection, , IV, intra-proc PRN, Leland, Deric Chris, LIVE AMMUNITION INSPECTOR, 4 mg at 10/19/24 1233 [DISCONTINUED] ondansetron (ZOFRAN) 4 mg/2 mL injection, , IV, intra-proc PRN, Leland, Deric Chris, LIVE AMMUNITION INSPECTOR, 4 mg at 10/19/24 1233 [DISCONTINUED] sugammadex (BRIDION) 100 mg/mL injection, , IV, intra-proc PRN, Leland, Deric Chris, LIVE AMMUNITION INSPECTOR, 275 mg at 10/19/24 1257 Primary discharge diagnosis: Lower GI hemorrhage Other active medical issues also addressed during this admission: Active Hospital Problems Diagnosis Lower GI hemorrhage Cirrhosis of liver with ascites (CMS/HCC) Hereditary benign telangiectasia C. difficile colitis Resolved Hospital Problems No resolved problems to display. ASSESSMENT AND PLAN: #Lower GI bleeding EGD on 10/16 showed clean-based ulcers in the duodenum likely secondary to recent APC treatment upper left undisturbed, small esophageal varices without high risk stigmata for bleeding that were left undisturbed and portal hypertensive gastropathy that was not actively bleeding. Colonoscopy on 10/17 showed 4 large patchy angiodysplastic lesions without bleeding in the ascending colon and cecum s/p APC. A 5 mm sessile polyp was removed from the cecum, 3 mm sessile polyp was removed from the sigmoid colon. Also noted to have large external and internal hemorrhoids Plan -transfuse 2 unit of PRBC. -Colorectal surgery team planning on hemorrhoidectomy today -On empiric abx for SBP prophylaxis with GIH. #Cirrhosis with ascites on admission Recent dx, unclear etiology. Evidence portal hypertension and esophageal varices. One prior paracentesis, 2 L drained 10/13. Repeat paracentesis done 10/18, 3.6 L removed. GI following. Plan -OP follow up with hepatology at [place] planned. #Recent diagnosis of C. difficile colitis prior to admission. On PO Vancomycin. 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 DVT prophylaxis: DVT Pharmacologic Prophylaxis: Patient has a contraindication for pharmacologic prophylaxis. Please refer to the orders for additional details. Code status: Full Code Outpatient follow up: PCP Anticipated Disposition Location: Timeframe: 10/22/2024 Criteria: Patient's understanding of illness: yes Primary family contact: [facility] complexity: [] Mild [x] Moderate [] High Jaden Guzmán MD 10/19/2024, 2:32 PM * Crescencio Aguero MD - 10/19/2024 6:47 AM CDT Colon & Rectal Surgery Patient seen and examined. C/o BRBPR. Discussed surgery again, questions answered. Discussed surgery and rational with son yesterday. VS stable, I/O ok Soft, NT, ND A/P lower GI bleeding, bleeding hemorrhoids in the setting of cirrhosis - to OR today for hemorrhoidectomy - all questions answered Current hospital problem list: Active Hospital Problems Diagnosis Lower GI hemorrhage Cirrhosis of liver with ascites (CMS/HCC) Hereditary benign telangiectasia C. difficile colitis Resolved Hospital Problems No resolved problems to display. Crescencio Aguero M.D. Colon & Rectal Surgery Office: Nutrition Status: Provider Assessment/Plan: Symptoms/Signs/Physical Exam: Poor appetite, eating poorly Etiology: Alteration of GI tract structure/function - Current Diet and/or Nutritional Supplementation ordered: DIET NPO - Daily weights Clinical Dietitian Assessment/Recommendations: * Jeb Alvarez III, DO - 10/18/2024 1:10 PM CDT [facility] Patient Handoff Notification: Patient handoff given to Dr. Uri Rojsa via staff messaging. * Sr Chhaya Chowdhury - 10/18/2024 11:42 AM CDT Reason for Visit: Routine/Initial Visit Patient spiritual issues identified summary of patient???s most significant issue(s): Viry said she was doing more better. Her boyfriend was there. She was very nice and welcome to visit and prayer. Family : Viry said she has only one son who is mercy co worker in clinic. She has good support from family she said. Lakshmi/values: Viry is the [employer] [place]. Needs/hopes resources: She hoped she recover and go home. Spiritual interventions Utilized presence and active listening to explore feelings, stressors, perceptions, questions/concerns, and coping patterns of Viry. Comfort/reassurance provided;support; Prayer provided Introduction of Spiritual Care 13/09. SENIOR AGRICULTURAL ASSISTANT???S ASSESSMENT OF PATIENT???S LEVEL OF DISTRESS: none Outcomes of Care Patient was feel comfort and very appreciated for visit and prayer Journeyman Plumber Plan: I will follow up patient and family to provide support and comfort or refer to evening divine healer to follow Spiritual Care Services remain available for referral PRN. Recommendations for Healthcare Team As spiritual needs/distress arise, please contact Spiritual Care Services. We will follow up as needed. Thank you for this referral. Journeyman Plumber Sr. Chhaya Chowdhury Spiritual Care Team [phone] * Jeb Alvarez III, DO - 10/18/2024 11:15 AM CDT CRITICAL CARE MEDICINE DAILY PROGRESS NOTE PCP: Aguila Castro MD Hx: 59 y.o. female admitted 10/16/2024 with rectal bleeding. She presented with weakness and c/f anemia as well. She was recently seen here on 10/06 with bloody stools following endoscopy. She tested positive for C diff on 10/07 and was started on PO Vancomycin. She stated she has taken this for around a week without improvement in her diffuse watery stools with bright red diarrhea. She denied abdominal pain or fever. She was noted to have stable VS on arrival with mild tachycardia. Her ED workup was remarkable for leukocytosis at 15k, anemia at 8.4 - down from 10-11 range just a few days ago, and YARELY. Her LA was WDL. She received a unit of blood in the ED and GI was consulted. She was admitted to the ICU for emergent bedside EGD and close monitoring. She has a history significant for hereditary hemorrhagic telangiectasia involving the colon, liver cirrhosis, esophageal varices, portal hypertension, iron deficiency anemia with chronic blood loss, hypothyroidism, H. Pylori gastritis, GERD, and CVA. Pertinent PMHx: Past Medical History: Diagnosis Date Clostridium difficile enterocolitis 10/07/2024 CVD (cerebrovascular disease) x2 eyesight only residual Hemorrhagic diathesis Hypothyroidism Temporomandibular joint disorder Thromboembolism (CMS/HCC) Current Care Plan Summary: Patient with recent dx of C diff and cirrhosis, admitted with [facility]. Both upper and lower endoscopy procedures done per GI. Angiodysplasia on colonoscopy noted. Continues to have some bright blood in stools. Additionally, her ascites is reaccumulating and causing more discomfort and have opted to repeat paracentesis, additional 3.6 L drained, sent for cell count though grossly does not look infected. With large internal and external hemorrhoids noted, have asked Colorectal Surgery to see. Also, have asked GI to formally consult with regards to her recent cirrhosis dx. Medically stable to transition out of ICU. ICU timeline: 10/16: admitted, EGD 10/17: colonoscopy 10/18: paracentesis Major active problem list: Principal Problem: Lower GI hemorrhage Active Problems: Hereditary benign telangiectasia C. difficile colitis Cirrhosis of liver with ascites (CMS/HCC) Subjective: 24 hour events - still passing some bright blood in stools. Main complaint is abdominal fullness and general discomfort and that abdomen more swollen. Objective: Current vital signs Blood pressure 116/53, pulse 76, temperature 97 ??F (36.1 ??C), temperature source Axillary, resp. rate 13, height 5' 9 (1.753 m), weight 68.7 kg (151 lb 7.3 oz), SpO2 93%, not currently . 24 hour BP and temperature range BP: (81-193)/(39-123) Temp (24hrs), Av.9 ??F (36.6 ??C), Min:97 ??F (36.1 ??C), Max:98.2 ??F (36.8 ??C) Input/Output 10/16 1900 - 10/18 0659 In: 1623.6 [P.O.:580; I.V.:693.6] Out: 0 PHYSICAL EXAM: Gen: WD female, in NAD. Neuro: alert, oriented, non focal. HEENT: BELLE, EOMI. Cardiac: RRR, no M. Pulm: clear, non labored. Abdomen: slightly taut, mild distention, mild generalized tenderness. Skin: warm and dry. Extremities: no edema. Data Review: BMP: Recent Labs 10/16/24204110/17/24 0556 10/18/24 0713 GLUCOSE 119* 141* 182* BUN 18 18 14 CREAT 1.12* 1.10* 0.94 NA 132* 132* 133* K 3.9 3.9 3.4* CL 101 100 101 CO2 21* 21* 23 ANIONGAP 10 11 9 MG 2.0 1.9 2.3 PO4 -- 3.6 -- estimated creatinine clearance is 66.5 mL/min (by C-G formula based on SCr of 0.94 mg/dL). LFTs: Recent Labs 10/16/24204110/17/24 0556 10/18/24 0713 ALKPHOS 59 54 54 ALT 17 15 14 AST 18 17 18 BILITOTAL 0.8 0.4 0.3 ALBUMIN 3.4* 3.1* 3.3* CBC: Recent Labs 10/16/24204110/17/24 0037 10/17/24 0556 10/17/24 1649 10/18/24 0021 10/18/24 0713 WBC 15.5* -- 14.2* -- -- 9.7 HGB 8.4* < > 7.2* 8.2* 8.0* 8.0* HCT 25.2* < > 21.3* 24.3* 23.1* 23.8* PLT 309 -- 253 -- -- 207 MCV 82.1* -- 82.6* -- -- 83.5* < > = values in this interval not displayed. Coagulation: Recent Labs 10/16/242041 PT 15.9* INR 1.2 APTT 27.6 ABG: Lab Results Component Value Date/Time LACTATE 1.6 10/16/2024 08:42 PM Lactic acid: Lab Results Component Value Date/Time LACTATE 1.6 10/16/2024 08:42 PM LACTATE 1.1 10/13/2024 09:09 AM Radiology: Reviewed Assessment and Plan Neuro/Psych: Hx insomnia, on CIRCULATION MANAGER Trazodone. Cardiovascular/Fluids: Hemodynamically stable. Hx HTN, BP trending higher, resuming Coreg. Net + 1.5 L. Pulmonary: NA. GI/NUT: PO diet. Lower GIH on admission. EGD on 10/16 showed clean-based ulcers in the duodenum likely secondary to recent APC treatment upper left undisturbed, small esophageal varices without high risk stigmata for bleeding that were left undisturbed and portal hypertensive gastropathy that was not actively bleeding. Colonoscopy on 10/17 showed 4 large patchy angiodysplastic lesions without bleeding in the ascending colon and cecum s/p APC. A 5 mm sessile polyp was removed from the cecum, 3 mm sessile polyp wasremoved from the sigmoid colon. Also noted to have large external and internal hemorrhoids. Have asked Colorectal Surgery to see. C diff dx, recent. Cirrhosis with ascites on admission. Recent dx, unclear etiology. Evidence portal hypertension and esophageal varices. One prior paracentesis, 2 L drained 10/13. Repeat paracentesis done 10/18, 3.6 L removed. GI asked to comment about cirrhosis. SUP, on PPI twice daily. Renal/LYTES/Acid-Base: YARELY on admission, thought to be prerenal. Has improved. Infectious Disease: Recent diagnosis of C. difficile colitis prior to admission. On PO Vancomycin. On empiric abx for SBP prophylaxis with GIH. Hem/Onc/Coag: Anemia, NC/NC, chronic with recent subacute blood loss component. Known HHT - CSP noted angiodysplasia in the ascending colon and cecum. DVTp, SCDs only. Endocrine: Hx hypothyroidism: Resumed CIRCULATION MANAGER Synthroid. Musculoskeletal/Skin: Local skin care. Family communication: discussed with pt and son. E/M level: 2. * Rigoberto Levine PA - 10/18/2024 11:00 AM CDT Gastroenterology Note Patient admitted overnight on 10/16 due to rectal bleeding. Underwent EGD that demonstrated clean-based duodenal ulcers, small esophageal varices without high risk stigmata for bleeding, punctate non-bleeding ectasias in stomach, and PHG that was not actively bleeding. Recommended colonoscopy, whichwas completed yesterday and demonstrated external/internal hemorrhoids, polyps, and four non-bleeding colonic AVMs that were treated with APC. 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 At that time, she requested second opinion, so referral was sent to [facility]. Today, labs demonstrate Hgb stable at 8.0, sodium 133, kidney labs WNL, albumin 3.3, liver labs are WNL. INR on 10/16 was 1.2. GI was called due to continued blood in stool today. Case was reviewed with Dr. Liz. Given stable Hgb, the reported continued hematochezia likely dueto hemorrhoidal bleeding. She recommends colorectal consultation for possible banding. As far as the patient's cirrhosis, she has a clinic appointment in January. Have messaged clinic to get this moved up. She also has an appointment scheduled with [facility] in February. Continue PPI BID. Trend H&H. Transfuse to keep Hgb >7. Promptly page GI insurance application investigator if patient experiences any brisk GI bleeding, especially if accompanied by hemodynamic compromise. Nothing further from inpatient GI standpoint. We will sign off at this time. Please call back with any further GI related questions/concerns. Thank you! Rigoberto Levine PA-C Gastroenterology EGD 10/16/2024: Impression: - Clean-based ulcers in duodenum, likely secondary to recent APC treatment, left undisturbed - Small esophageal varices without high risk stigmata for bleeding, left undisturbed - Punctate non-bleeding ectasias in the stomach left undisturbed - Portal hypertensive gastropathy, not actively bleeding Recommendation: - Prep for colonoscopy - Avoid NSAIDs - Continue twice daily PPI for 8 weeks - Continue to monitor hemoglobin and transfuse for hemoglobin less than 7 Colonoscopy 10/17/2024: Impression: - Four non-bleeding colonic angiodysplastic lesions. Treated with argon plasma coagulation (APC). - One 5 mm polyp in the cecum, removed with a cold snare. Resected and retrieved. - One 3 mm polyp in the sigmoid colon, removed with a cold snare. Resected and retrieved. - External and internal hemorrhoids. Recommendation: - Resume regular diet - monitor for recurrence of bleeding until tomorrow Cosigned by Julianne David DO at 10/18/2024 11:39 AM CDT * Jonathan Sampson MD - 10/17/2024 4:31 PM CDT CRITICAL CARE MEDICINE DAILY PROGRESS NOTE PCP: Aguila Castro MD Hx: 59 y.o. female admitted 10/16/2024 with rectal bleeding. She presented with weakness and c/f anemia as well. She was recently seen here on 10/06 with bloody stools following endoscopy. She tested positive for c.diff on 10/07 and was started on PO vancomycin. She stated she has taken this for around a week without improvement in her diffuse watery stools with bright red diarrhea. She denied abdominal pain or fever. She was noted to have stable VS on arrival with mild tachycardia. Her ED workup was remarkable for leukocytosis at 15k, anemia at 8.4 - down from 10-11 range just a few days ago, and YARELY. Her LA was WDL. She received a unit of blood in the ED and GI was consulted. She was admitted to the ICU for emergent bedside EGD and close monitoring. She has a history significant for hereditary hemorrhagic telangiectasia involving the colon, liver cirrhosis, esophageal varices, portal hypertension, iron deficiency anemia with chronic blood loss, hypothyroidism, H. Pylori gastritis, GERD, and CVA. Pertinent PMHx: Past Medical History: Diagnosis Date Clostridium difficile enterocolitis 10/07/2024 CVD (cerebrovascular disease) x2 eyesight only residual Hemorrhagic diathesis Hypothyroidism Temporomandibular joint disorder Thromboembolism (CMS/HCC) Current Care Plan Summary: 59-year-old female with ADHD, cirrhosis, varices admitted to the ICU on 10/16 with rectal bleeding Underwent EGD overnight which showed clean-based ulcers in the duodenum likely secondary to recent APC treatment upper left undisturbed, small esophageal varices without high risk stigmata for bleeding that are left undisturbed and portal hypertensive gastropathy that was not actively bleeding Remains on PPI twice daily and octreotide gtt. this morning but continues to have active rectal bleeding INR is 1.2 Underwent colonoscopy which showed 4 large patchy angiodysplastic lesions without bleeding in the ascending colon and cecum s/p APC. A 5 mm sessile polyp was removed from the cecum, 3 mm polyp was removed from the sigmoid colon. Also noted to have large external and internal hemorrhoids Postprocedure, amount of blood in the stool is improving. She continues to have crampy lower abdominal pain Hemodynamics are stable Continue PPI twice daily. Since esophageal varices are small without active bleeding, will DC octreotide If rectal bleeding continues, will consult colorectal surgery in the a.m. for hemorrhoids Continue ceftriaxone for SBP prophylaxis Hold CIRCULATION MANAGER lactulose Recent diagnosis of C. difficile. Continue treatment dose p.o. vancomycin ICU timeline: Major active problem list: Active Problems: Hereditary benign telangiectasia C. difficile colitis Subjective: 24 hour events -as above Objective: Current vital signs Blood pressure (!) 142/71, pulse 83, temperature 98 ??F (36.7 ??C), temperature source Oral, resp. rate 14, height 5' 9 (1.753 m), weight 68.7 kg (151 lb 7.3 oz), SpO2 95%, not currently . 24 hour BP and temperature range BP: (99-154)/(39-83) Temp (24hrs), Av.2 ??F (36.8 ??C), Min:98 ??F (36.7 ??C), Max:98.7 ??F (37.1 ??C) Input/Output No intake/output data recorded. PHYSICAL EXAM: Gen: NAD Neuro: AO x 3, moving all extremities Cardiac: RRR Pulm: Clear Abdomen: Lower abdominal tenderness without rigidity, guarding or rebound Data Review: BMP: Recent Labs 10/16/242 10/17/24 0556 GLUCOSE 119* 141* BUN 18 18 CREAT 1.12* 1.10* NA 132* 132* K 3.9 3.9 CL 101 100 CO2 21* 21* ANIONGAP 10 11 MG 2.0 1.9 PO4 -- 3.6 estimated creatinine clearance is 56.8 mL/min (A) (by C-G formula based on SCr of 1.1 mg/dL (H)). LFTs: Recent Labs 10/16/24204110/17/24 0556 ALKPHOS 59 54 ALT 17 15 AST 18 17 BILITOTAL 0.8 0.4 ALBUMIN 3.4* 3.1* CBC: Recent Labs 10/16/24204110/17/24 0037 10/17/24 0556 WBC 15.5* -- 14.2* HGB 8.4* 7.6* 7.2* HCT 25.2* 22.2* 21.3* PLT 309 -- 253 MCV 82.1* -- 82.6* Coagulation: Recent Labs 10/16/242041 PT 15.9* INR 1.2 APTT 27.6 ABG: Lab Results Component Value Date/Time LACTATE 1.6 10/16/2024 08:42 PM Lactic acid: Lab Results Component Value Date/Time LACTATE 1.6 10/16/2024 08:42 PM LACTATE 1.1 10/13/2024 09:09 AM Radiology: Reviewed Assessment and Plan Neuro/Psych: Insomnia: Restart CIRCULATION MANAGER trazodone Cardiovascular/Fluids: Hemodynamics are stable Hypertension: Hold CIRCULATION MANAGER meds Pulmonary: On room air GI/NUT: Rectal bleeding -EGD on 10/16 showed clean-based ulcers in the duodenum likely secondary to recent APC treatment upper left undisturbed, small esophageal varices without high risk stigmata for bleeding that were leftundisturbed and portal hypertensive gastropathy that was not actively bleeding -Colonoscopy on 10/17 showed 4 large patchy angiodysplastic lesions without bleeding in the ascending colon and cecum s/p APC. A 5 mm sessile polyp was removed from the cecum, 3 mm sessile polyp was removed from the sigmoid colon. Also noted to have large external and internal hemorrhoids - Continue PPI twice daily - Send stool for H. pylori - Continue to trend hemoglobin - Transfuse for hemoglobin less than 7 - Since esophageal varices are small without active bleeding, will DC octreotide - If rectal bleeding continues, will consult colorectal surgery in the a.m. for hemorrhoids Cirrhosis: with portal hypertension and esophageal varices - Mental status at baseline - Hold CIRCULATION MANAGER lactulose due to ongoing diarrhea - Start ceftriaxone for SBP prophylaxis SUP, on PPI twice daily Renal/LYTES/Acid-Base: YARELY: Likely prerenal due to GIB - Monitor urine output - Replace electrolytes as per protocol Infectious Disease: Recent diagnosis of C. difficile colitis -Continue treatment dose p.o. vancomycin GI bleed and potential for SBP: Cover empirically with Rocephin. Hem/Onc/Coag: Known HHT - CSP noted angiodysplasia in the ascending colon and cecum DVTp, SCDs only Endocrine: Hypothyroidism: Resume CIRCULATION MANAGER Synthroid. Musculoskeletal/Skin: Routine ICU care Family communication: Plans discussed with the patient and family at bedside documented in this encounter H&P Notes * Julianne David DO - 10/17/2024 11:18 AM CDT Endoscopy History and Physical This is a 59 y.o. female patient scheduled for colonoscopy for hematochezia. Patient had risks and benefits discussed for [...] Alternatives include stools tests and imaging studies. Explained to patient that treatment of complications may require hospitalization, antibiotics, additional procedures, blood transfusions, surgery or other measures deemed advisable for health and well-being. Past Medical History: Diagnosis Date Clostridium difficile enterocolitis 10/07/2024 CVD (cerebrovascular disease) x2 eyesight only residual Hemorrhagic diathesis Hypothyroidism Temporomandibular joint disorder Thromboembolism (CMS/HCC) Past Surgical History: Procedure Laterality Date HX ARTHROSCOPIC REPAIR ACL Bilateral HX ESOPHAGOGASTRODUODENOSCOPY N/A 10/08/2024 ESOPHAGOGASTRODUODENOSCOPY performed by Carmine Dubois MD at [facility] HX ESOPHAGOGASTRODUODENOSCOPY N/A 10/16/2024 ESOPHAGOGASTRODUODENOSCOPY performed by Mayo Taylor MD at [facility] ENDOSCOPY HX HYSTERECTOMY HX INTRACRANIAL ANEURYSM REPAIR HX IVC FILTER RETRIEVAL HX LAPAROTOMY OOPHERECTOMY Right HX TUBAL LIGATION IL COLONOSCOPY FLX DX W/COLLJ SPEC WHEN PFRMD N/A 10/03/2024 COLONOSCOPY performed by Carmine Dickerson DO at [facility] ENDOSCOPY IL ESOPHAGOGASTRODUODENOSCOPY TRANSORAL DIAGNOSTIC N/A 05/08/2024 ESOPHAGOGASTRODUODENOSCOPY performed by Gera Resendez DO at [facility] ENDOSCOPY IL ESOPHAGOGASTRODUODENOSCOPY TRANSORAL DIAGNOSTIC N/A 10/03/2024 ESOPHAGOGASTRODUODENOSCOPY performed by Carmine Dickerson DO at [facility] END[facility] IL REMOVAL IMPLANT DEEP Right 05/27/2021 HARDWARE REMOVAL [...] on file Feeling Safe: Not At Risk (10/16/2024) Feeling Safe Patient has indicated abuse: : No Housing Stability: Not on file Medications Prior to Admission Medication Sig Dispense Refill Last Dose/Taking pantoprazole (PROTONIX) 40 mg Tablet, Delayed Release (E.C.) Take 1 Tablet (40 mg) by mouth 2 timesdaily. 60 Tablet 0 vancomycin (VANCOCIN) 125 mg Capsule Take 1 Capsule (125 mg) by mouth every 6 hours for 12 days. 48Capsule 0 sodium chloride 0.9 % Parenteral Solution [...] 6 hours as needed forNausea. IRON PS [id number] ACID ORAL Take by mouth. montelukast (SINGULAIR) [...] (E.C.) Take 81 mg by mouth daily. Family History Problem Relation Name Age of Onset Colon Cancer Neg Hx Physical Exam: General appearance/mental status patient: alert and oriented in time place and person Neurological system within normal limits Mental Status: Alert Lungs: normal respiratory effort and no acute respiratory distress Heart: regular rate Abdomen: Soft, non-tender ASA Classification: ASA 3 - Patient with moderate systemic disease with functional limitations Assessment: hematochezia Plan: Will proceed with the above mentioned procedure as scheduled. * Mayo Taylor MD - 10/16/2024 10:42 PM CDT Viry Quach 1965 CSN:[id number] 10/16/2024 Referring physician: Aguila Castro MD Endoscopy Outpatient History and Physical This is a 59 y.o. female patient scheduled for Colonoscopy for the indication GI bleed Past Medical History: Diagnosis Date Clostridium difficile enterocolitis 10/07/2024 CVD (cerebrovascular disease) x2 eyesight only residual Hemorrhagic diathesis Hypothyroidism Temporomandibular joint disorder Thromboembolism (CMS/HCC) Past Surgical History: Procedure Laterality Date HX ARTHROSCOPIC REPAIR ACL Bilateral HX ESOPHAGOGASTRODUODENOSCOPY N/A 10/08/2024 ESOPHAGOGASTRODUODENOSCOPY performed by Carmine Dubois MD at [facility] HX HYSTERECTOMY HX INTRACRANIAL ANEURYSM REPAIR HX IVC FILTER RETRIEVAL HX LAPAROTOMY OOPHERECTOMY Right HX TUBAL LIGATION IL COLONOSCOPY FLX DX W/COLLJ SPEC WHEN PFRMD N/A 10/03/2024 COLONOSCOPY performed by Carmine Dickerson DO at [facility] IL ESOPHAGOGASTRODUODENOSCOPY TRANSORAL DIAGNOSTIC N/A 05/08/2024 ESOPHAGOGASTRODUODENOSCOPY performed by Gera Resendez DO at [facility] IL ESOPHAGOGASTRODUODENOSCOPY TRANSORAL DIAGNOSTIC N/A 10/03/2024 ESOPHAGOGASTRODUODENOSCOPY performed by Carmine Dickerson DO at [facility] IL REMOVAL IMPLANT DEEP Right 05/27/2021 HARDWARE REMOVAL performed by Rolando Riley MD at [facility] Allergies Allergen Reactions Sulfa (Sulfonamide Antibiotics) Rash and Shortness of Breath/Wheezing Reaction: Rash, Short of breath, No current facility-administered medications on file prior to encounter. Current Outpatient Medications on File Prior to Encounter Medication Sig Dispense Refill pantoprazole (PROTONIX) 40 mg Tablet, Delayed Release (E.C.) Take 1 Tablet (40 mg) by mouth 2 timesdaily. 60 Tablet 0 vancomycin (VANCOCIN) 125 mg Capsule Take 1 Capsule (125 mg) by mouth every 6 hours for 12 days. 48Capsule 0 sodium chloride 0.9 % Parenteral Solution [...] 6 hours as needed forNausea. IRON PS [id number] ACID ORAL Take by mouth. montelukast (SINGULAIR) [...] (E.C.) Take 81 mg by mouth daily. Family History Problem Relation [...] on file Feeling Safe: Not At Risk (10/16/2024) Feeling Safe Patient has indicated abuse: : No Housing Stability: Not on file Physical Exam: Airway Assessment Short/fat neck: No Short chin No Protruding upper teeth No Neck full ROM Yes Mouth opens>2 finers Yes ASA Classification: ASA 3 - Patient with moderate systemic disease with functional limitations Neuro- alert and appropriately conversive Lungs: clear to auscultation bilaterally, normal respiratory effort Heart: regular rate and rhythm, S1, S2 normal, no murmur, click, rub or gallop Abdomen: Soft, non-tender. Bowel sounds normal. No masses, no organomegaly. Plan: Will proceed with the above mentioned procedure as scheduled. Mayo Taylor MD * Cassie Persaud PA - 10/16/2024 10:29 PM CDT CRITICAL CARE MEDICINE HISTORY & PHYSICAL PCP: Aguila Castro MD Subjective: CC: rectal bleeding HPI: Viry Quach is a 59 y.o. female admitted 10/16/2024 with rectal bleeding. She presented with weakness and c/f anemia as well. She was recently seen here on 10/06 with bloody stools following endoscopy. She tested positive for c.diff on 10/07 and was started on PO vancomycin. She stated she has taken this for around a week without improvement in her diffuse watery stools with bright red diarrhea. She denied abdominal pain or fever. She was noted to have stable VS on arrival with mildtachycardia. Her ED workup was remarkable for leukocytosis at 15k, anemia at 8.4 - down from 10-11 range just a few days ago, and YARELY. Her LA was WDL. She received a unit of blood in the ED and GI was consulted. She was admitted to the ICU for emergent bedside EGD and close monitoring. She has a history significant for hereditary hemorrhagic telangiectasia involving the colon, liver cirrhosis, esophageal varices, portal hypertension, iron deficiency anemia with chronic blood loss, hypothyroidism, H. Pylori gastritis, GERD, and CVA. Database: Past Medical History: Diagnosis Date Clostridium difficile enterocolitis 10/07/2024 CVD (cerebrovascular disease) x2 eyesight only residual Hemorrhagic diathesis Hypothyroidism Temporomandibular joint disorder Thromboembolism (CMS/HCC) Past Surgical History: Procedure Laterality Date HX ARTHROSCOPIC REPAIR ACL Bilateral HX ESOPHAGOGASTRODUODENOSCOPY N/A 10/08/2024 ESOPHAGOGASTRODUODENOSCOPY performed by Carmine Dubois MD at [facility] HX HYSTERECTOMY HX INTRACRANIAL ANEURYSM REPAIR HX IVC FILTER RETRIEVAL HX LAPAROTOMY OOPHERECTOMY Right HX TUBAL LIGATION IL COLONOSCOPY FLX DX W/COLLJ SPEC WHEN PFRMD N/A 10/03/2024 COLONOSCOPY performed by Carmine Dickerson DO at [facility] IL ESOPHAGOGASTRODUODENOSCOPY TRANSORAL DIAGNOSTIC N/A 05/08/2024 ESOPHAGOGASTRODUODENOSCOPY performed by Gera Resendez DO at [facility] IL ESOPHAGOGASTRODUODENOSCOPY TRANSORAL DIAGNOSTIC N/A 10/03/2024 ESOPHAGOGASTRODUODENOSCOPY performed by Carmine Dickerson DO at [facility] IL REMOVAL IMPLANT DEEP Right 05/27/2021 HARDWARE REMOVAL performed by Rolando Riley MD at [facility] Medication List CONTINUE taking these medications aspirin 81 mg [...] by mouth. PRN Refills: 0 IRON PS [id number] ACID ORAL Take by mouth. Refills: 0 levothyroxine 50 mcg tablet Commonly known as: SYNTHROID Take 50 mcg by mouth daily. Refills: 0 montelukast 10 mg tablet Commonly known as: SINGULAIR Refills: 0 multivitamin tablet Commonly known as: DAILY-MARIO Take 1 Tablet by mouth daily. Refills: 0 ondansetron 4 mg Tablet, Rapid [...] by mouth daily at bedtime. Refills: 0 vancomycin 125 mg Capsule Commonly known as: VANCOCIN Take 1 Capsule (125 mg) by mouth every 6 hours for 12 days. Signed by: Dr. Parker Palacios Quantity: 48 Capsule Refills: 0 vitamin E 400 unit capsule Take 400 Units by mouth daily. Refills: 0 Allergies: Allergies Allergen Reactions Sulfa (Sulfonamide Antibiotics) Rash and Shortness of Breath/Wheezing Reaction: Rash, Short of breath, Social History Tobacco Use Smoking status: Every Day Current packs/day: 1.00 Types: Cigarettes Smokeless tobacco: Never Substance Use Topics Alcohol use: Not Currently Comment: rare Family History Problem Relation Name Age of Onset Colon Cancer Neg Hx REVIEW OF SYSTEMS: CONSTITUTIONAL: weakness Denies: fever, chills, diaphoresis EYES: Denies: decreased vision, eye pain, diplopia ENT: Denies: sore throat, nasal congestion, nasal discharge CARDIOVASCULAR: Denies: chest pain, edema, palpitations RESPIRATORY: Denies: cough, shortness of breath, wheezing ENDOCRINE: Denies: polydipsia/polyuria, palpitations, skin changes HEME-LYMPH: Denies: swollen lymph nodes, bleeding, bruising GI: diarrhea, blood in stool, Denies: abdominal pain, nausea, vomiting : Denies: dysuria, frequency/urgency, hematuria NEURO: Denies: dizzy/vertigo, headache, focal weakness Objective: Initial Vitals [10/16/241955] BP 118/71 Pulse 99 Resp 18 Temp 98 ??F (36.7 ??C) Temp src Oral SpO2 97 % Patient Vitals for the past 8 hrs: BP Temp Temp src Pulse Resp SpO2 Weight 10/16/24 2200 121/71 -- -- 94 18 93 % -- 10/16/24 214 134/77 -- -- 91 20 95 % -- 10/16/242129 139/78 -- -- 96 19 96 % -- 10/16/242114 137/83 -- -- (!) 104 22 95 % -- 10/16/241955 118/71 98 ??F (36.7 ??C) Oral 99 18 97 % 70.3 kg (155 lb) PHYSICAL EXAMINATION: Gen: 59-yo female lying in bed in [facility] Neuro: A&O X 4, no focal deficits HEENT: AT/NC, PERRL, MMM Cardiac: RRR, no murmur Pulm: CTA B/L, unlabored, on room air Abdomen: soft, nontender, +BS Skin: warm, dry, and intact Extremities: pedal pulses palpable B/L, no edema Data Review: BMP: Recent Labs 10/16/242041 GLUCOSE 119* BUN 18 CREAT 1.12* NA 132* K 3.9 CL 101 CO2 21* ANIONGAP 10 MG 2.0 estimated creatinine clearance is 55.8 mL/min (A) (by C-G formula based on SCr of 1.12 mg/dL (H)). LFTs: Recent Labs 10/16/242041 ALKPHOS 59 ALT 17 AST 18 BILITOTAL 0.8 ALBUMIN 3.4* CBC: Recent Labs 10/16/242041 WBC 15.5* HGB 8.4* HCT 25.2* PLT 309 MCV 82.1* Coagulation: Recent Labs 10/16/242041 PT 15.9* INR 1.2 APTT 27.6 ABGs: Lab Results Component Value Date/Time LACTATE 1.6 10/16/2024 08:42 PM Radiology: Relevant results and imaging have been reviewed. Assessment and Plan: Neuro/Psych: No acute concerns, she is neurologically intact. Insomnia: Resume CIRCULATION MANAGER trazodone once p.o. route available. Cardiovascular/Fluids: She is hemodynamically stable without vasopressors. Hypertension: Hold CIRCULATION MANAGER meds for soft pressures. Pulmonary: No acute concerns, she is saturating well on room air. GI/NUT: N.p.o. GIB: S/p emergent bedside EGD finding nonbleeding esophageal varices with apparent prior cauterization and clean-based duodenal ulcers without stigmata of bleeding or active bleeding. Colonoscopy prep tonight N.p.o. Twice daily Protonix Octreotide gtt. Monitor H/H every 6 hours Support with IVF Check H. pylori stool antigens. Cirrhosis: with portal hypertension and esophageal varices, check ammonia and start lactulose, octreotide for varices SUP, Protonix Renal/LYTES/Acid-Base: YARELY: Likely prerenal due to GIB, monitor UOP and electrolytes correcting as necessary. Infectious Disease: C. difficile infection: Continue p.o. vancomycin. GI bleed and potential for SBP: Cover empirically with Rocephin. Hem/Onc/Coag: Leukocytosis: Positive for C. difficile, covering empirically given GIB and possible SBP DVTp, SCDs only Endocrine: No history of diabetes: Monitor BG every 4 hours while NPO. Hypothyroidism: Resume CIRCULATION MANAGER Synthroid. Musculoskeletal/Skin: Routine skin care per nursing. Additional comments: She is saturating well on room air and she is hemodynamically stable without vasopressors though her BP is soft. She has just undergone emergent bedside EGD with findings as above-no signs of active bleeding. We will perform colonoscopy prep tonight with plans to complete this t omorrow. We will keep her n.p.o. apart from p.o. vancomycin for C. difficile. Will cover empirically with Rocephin in the setting of GI bleed and possible SBP given ascites with recent paracentesis. Continue twice daily Protonix and start an octreotide infusion. Monitor H/H every 6 hours transfusing as necessary. Family Communication: The patient and her son were updated directly at bedside. Cosigned by Jasmyn Coy MD at 10/17/2024 3:59 AM CDT Associated attestation - Jasmyn Coy MD - 10/17/2024 3:59 AM CDT I reviewed the medical record including the applicable Critical Care Medicine APC note from today. I independently examined the patient I discussed the history, physical findings, laboratory findings, assessment and plan with the applicable APC on rounds.? I have reviewed the physical exam findings in the applicable resident/Fellow/EROSION CONTROL COORDINATOR/PA's note; my notable physical exam findings include: Body mass index is 21.85 kg/m??. Neuro: Oriented x 3, nonfocal CV: S1 and S2 without any murmur Resp: Clear GI: Stool soft, distended Ext: No edema I have reviewed the assessment and plan in the applicable APC note. Notable amendments to the assessment and plan include: GI bleed: Have multiple risk factor including hereditary telangiectasia, recent C. difficile infection and cirrhosis. Noted to have active bleeding per rectum in the ER, which was associated with drop in hemoglobin, received 1 packed RBC. Also on CIRCULATION MANAGER aspirin, which was reversed with desmopressin inER. Soft blood pressure but off vasopressors. Underwent emergent EGD bedside in the ICU, noted to have only small esophageal varices which are unlikely to be the source of bleeding and clean-based ulcers in duodenum duodenum as well as ectasia and portal hypertensive gastropathy but no active source of bleeding identified. GI think that his source of bleeding is most likely lower GI, will undergo colonoscopy prep tonight. Keep n.p.o. except meds. Maintain on IV PPI twice daily. Maintain on octreotide gtt. Maintain on ceftriaxone IV for SBP prophylaxis in the setting of cirrhosis. Monitor hemoglobin every 6 hour, transfuse to hemoglobin more than 7. C. Difficile: Recently diagnosed on 10/07/2024, maintained on p.o. vancomycin 125 Mg daily. YARELY: most likely prerenal, will maintain on gentle hydration at 50 mL/h, total 1 L. Decompensated cirrhosis: recent diagnosis, unknown cause. Decompensated with esophageal varices andascites, underwent therapeutic paracentesis on 10/10. Maintain on lactulose. GI is on board. Family Communication: Updated Critical care time of 35 minutes was spent with this patient excluding procedures or teaching. Active problem list: Active Problems: Hereditary benign telangiectasia C. difficile colitis documented in this encounter Procedure Notes * Jeb Alvarez III, DO - 10/18/2024 11:20 AM CDT Paracentesis Procedure Note Indications: Ascites Surgeon: Jeb Alvarez III, DO Assistants: MARLO Procedure Details Consent: Informed consent was obtained. Risks of the procedure were discussed including: infection,bleeding, and possible viscera perforation. Time-Out Process performed, verified patient identification, verified procedure, verified site/side, verified correct patient position, special equipment/implants available. Paracentesis site lateral, left abdomen determination was identified by bedside ultrasound. Sterile procedures employed-hand hygiene prior to donning gloves, gown, mask, and sterile barrier drape. Chlorhexidine solution was applied to the site. Medication used to anesthetize the planned site with 1% plain lidocaine. Fluid was obtained without any difficulties and minimal blood loss. A dressing was applied to the wound. Bedside Ultrasound: Bedside ultrasound guidance used to identify the ascitic fluid during the procedure. Findings 3600 ml of clear yellow tinged paracentesis fluid was obtained. A sample was sent for microbiology examination. EBL: minimal. Complications: None; patient tolerated the procedure well. Attending Attestation: This procedure was performed independently of the time included in today's admission/progress note(s). * Zainab Quintana RN - 10/18/2024 7:20 AM CDT VASCULAR ACCESS TEAM Peripheral IV insertion PATIENT NAME: Viry Quach DATE OF : 1965 CSN: [id number] DATE: 10/18/2024 Room: [address] [place] [address] Admit Date: 10/16/2024 Hospital day: LOS: 2 days Allergies: Allergies [...] placed using ultrasound guidance in the right, AC space Secure port adhesive used Yes 1 attempts 20 minutes required to complete procedure Labs collected Positive blood return noted Neutral pressure cap applied Catheter Flushed with 5ml of Normal Saline Transparent dressing applied with date, time and initials of cowoker inserting. LDA documentation is contained in EMR flowsheet Patient tolerated well. Zainab Quintana RN * Maci Ennis - 10/17/2024 4:49 PM CDT VASCULAR ACCESS TEAM Peripheral IV insertion PATIENT NAME: Viry Quach DATE OF : 1965 CSN: [id number] DATE: 10/17/2024 Room: [address] [place] [address] Admit Date: 10/16/2024 Hospital day: LOS: 1 day Allergies: Allergies Allergen Reactions Sulfa (Sulfonamide Antibiotics) [...] successfully placed using ultrasound guidance in the left, lower Arm Secure port adhesive used Yes 1 attempts 20 minutes required to complete procedure Positive blood return noted Neutral pressure cap applied Catheter Flushed with 5ml of Normal Saline Transparent dressing applied with date, time and initials of cowoker inserting. LDA documentation is contained in EMR flowsheet Patient tolerated well. Maci Ennis * Julianne David DO - 10/17/2024 12:28 PM CDTAssociated Order(s): COLONOSCOPY REPORT [facility] GI Patient Name: Viry Quach Procedure Date: 10/17/2024 Date of : 1965 Admit Type: Inpatient Age: 59 Attending MD: Julianne Milner DO, Procedure: Colonoscopy Indications: Hematochezia Providers: Julianne Milner DO Referring MD: Medicines: Propofol per Anesthesia Complications: No immediate complications. Procedure: Pre-Anesthesia Assessment: - The anesthesia plan was to use monitored anesthesia care (MAC). - Prior to the procedure, a History [...] satisfactory condition to undergo the procedure. After I obtained informed consent, the scope [...] The quality of the bowel preparation was excellent. Estimated Blood Loss: Estimated blood loss was minimal. Findings: The perianal and digital rectal examinations were normal. Four large patchy angiodysplastic lesions without bleeding were found in the ascending colon and in the cecum. Coagulation for bleeding prevention using argon plasma was successful. A 5 mm polyp was found in the cecum. The polyp was sessile. The polyp was removed with a cold snare. Resection and retrieval were complete. A 3 mm polyp was found in the sigmoid colon. The polyp was sessile. The polyp was removed with a cold snare. Resection and retrieval were complete. External and internal hemorrhoids were found during retroflexion. The hemorrhoids were large. Impression: - Four non-bleeding colonic angiodysplastic lesions. Treated with argon plasma coagulation (APC). - One 5 mm polyp in the cecum, removed with a cold snare. Resected and retrieved. - One 3 mm polyp in the sigmoid colon, removed with a cold snare. Resected and retrieved. - External and internal hemorrhoids. Recommendation: Resume regular diet monitor for recurrence of bleeding until tomorrow Julianne Milner DO 10/17/2024 12:28:48 PM This report has been signed electronically. Number of Addenda: 0 Note Initiated On: 10/17/2024 12:02 PM Scope Withdrawal Time 0 hours 7 minutes 15 seconds Scope In: 12:16:19 PM Scope Out: 12:25:42 PM Patient Profile: This is a 59 year old female. [address] [place] [address] * Naun Montiel RN - 10/17/2024 5:57 AM CDT VASCULAR ACCESS TEAM Lab collection PATIENT NAME: Viry Quach DATE OF : 1965 [facility]: [id number] DATE: 10/17/2024 Room: [address] [place] [address] Admit Date: 10/16/2024 Hospital day: LOS: 1 day [place]: Allergies Allergen Reactions Sulfa (Sulfonamide Antibiotics) Rash and Shortness of Breath/Wheezing Reaction: Rash, Short of breath, Ultrasound Guided LAB COLLECTION Ultrasound assessment was performed to assess adequacy of vascular anatomy Adequate vessel was located Insertion site cleansed for 30 seconds with Chlora-prep. Site allowed to dry before ultrasound guided needle stick. Labs collected Yes Location: right, lower Arm Blood Cultures collected No 1 attempts 15 minutes required to complete procedure Naun Montiel RN * Edie Lou RN - 10/17/2024 12:38 AM CDT VASCULAR ACCESS TEAM Lab collection PATIENT NAME: Viry Quach DATE OF : 1965 CSN: [id number] DATE: 10/17/2024 Room: [address] [place] [address] Admit Date: 10/16/2024 Hospital day: LOS: 1 day [place]: Allergies Allergen Reactions Sulfa (Sulfonamide Antibiotics) Rash and Shortness of Breath/Wheezing Reaction: Rash, Short of breath, Ultrasound Guided LAB COLLECTION Ultrasound assessment was performed to assess adequacy of vascular anatomy Adequate vessel was located Insertion site cleansed for 30 seconds with Chlora-prep. Site allowed to dry before ultrasound guided needle stick. Labs collected Yes Location: left, lower Arm 1 attempts 15minutes required to complete procedure Edie Lou RN * Mayo Taylor MD - 10/16/2024 11:12 PM CDTAssociated Order(s): UPPER ENDOSCOPY REPORT [facility] GI Patient Name: Viry Quach Procedure Date: 10/16/2024 Date of : 1965 Admit Type: Inpatient Age: 59 Attending MD: Mayo Taylor MD, Procedure: Upper GI endoscopy Indications: Gastrointestinal bleeding Providers: Mayo Taylor MD Referring MD: Medicines: Fentanyl and Versed in incremental dosages Complications: No immediate complications. Procedure: Pre-Anesthesia Assessment: - Prior to the procedure, a History and Physical was performed, and patient medications, allergies and sensitivities were reviewed. The patient's tolerance of previous anesthesia was reviewed. - The risks and benefits of the procedure and the sedation options and risks were discussed with the patient. All questions were answered and informed consent was obtained. After obtaining informed consent, the endoscope was passed under direct vision. Throughout the procedure, the patient's blood pressure, pulse, and oxygen saturations were monitored continuously. The Endoscope was introduced through the mouth, and advanced to the second part of duodenum. Estimated Blood Loss: Estimated blood loss: none. Estimated blood loss was minimal. Findings: There was no active bleeding or old blood in the upper intestine. There were small esophageal varices without high risk stigmata in the lower third of the esophagus, they were left undisturbed. There was nonbleeding portal hypertensive gastropathy. There were multiple clean-based ulcers in the second portion of the duodenum at the probable site of recent APC, and scattered punctate ectasias that were not actively bleeding, these were left undisturbed Impression: ??? Clean-based ulcers in duodenum, likely secondary to recent APC treatment, left undisturbed ??? Small esophageal varices without high risk stigmata for bleeding, left undisturbed - Punctate non-bleeding ectasias in the stomach left undisturbed ??? Portal hypertensive gastropathy, not actively bleeding Recommendation: ??? Prep for colonoscopy - Avoid NSAIDs - Continue twice daily PPI for 8 weeks ??? Continue to monitor hemoglobin and transfuse for hemoglobin less than 7 Mayo Taylor MD 10/16/2024 11:12:46 PM Number of Addenda: 0 Note Initiated On: 10/16/2024 10:27 PM Scope Withdrawal Time Scope In: Scope Out: [address] [place], [place] documented in this encounter Consult Notes * Brii Velasquez RN - 10/19/2024 7:53 PM CDTAssociated Order(s): IP CONSULT TO IV TEAM VASCULAR ACCESS CONSULT PATIENT NAME: Viry Quach DATE OF : 1965 CSN: [id number] DATE: 10/19/2024 Room: [address] [place] [address] Admit Date: 10/16/2024 Hospital day: LOS: 3 days PLAN Was asked by vascular crime lab technician to collect H&H after earlier attempts were unsuccessful. Worklist showed that H&H was collected at 1938. Spoke to RNPamela, who informed me she was able tocollect the lab and IV team was not needed. 15 min consult Brii Velasquez RN * Crescencio Aguero MD - 10/18/2024 2:24 PM CDT Patient: Viry Quach / 59 y.o. / female : 1965 Chief Complaint: hemorrhoids History of Present Illness: Viry Quach is a very pleasant 59 y.o. year-old female who complains of hemorrhoids. Symptoms for years. Has a lot of BRBPR with Bm's. Workup with other minor findings, hemorrhoids suspcious as major cause of chronic bleeding/anemia Review of Systems: Review of systems was performed as indicated below, empty boxes indicate negative responses. Gastrointestinal [] Constipation [] Blood in stool [] Diarrhea [] Abdominal pain [] Nausea [] Vomiting Constitutional [] Fever [] Weight loss [] Fatigue [] Weakness Perineal exam (the rest of exam listed below): The perianal skin is normal with no evidence of rash, excoriation, or mass. Large skin tags or external hemorrhoids are noted. Spreading of the anus reveals no fissures or distal anal canal pathology. Digital rectal exam was performed and was well tolerated without focal tenderness, no masses were palpated, sphincter tone was Normal. Procedures: Anoscopy: A lubricated, lighted anoscope with inserted without significant discomfort and the obturator was removed to view the proximal anal canal and rectum, the obturator was replaced and the scope rotated to view circumferentially. large redundancy to the distal rectal mucosa was noted. Stigmata of recent bleeding was noted. No fissures or other anal canal lesions were noted. The exam was otherwise normal. Assessment: 59 y.o.Female (Body mass index is 22.37 kg/m??., Normal Weight) with grade II-III hemorrhoids with bleeding in the setting of cirrhosis Plan: We discussed the nature of hemorrhoid disease as well as its treatments. Specifically we discussed conservative measures including increasing water intake as well as a fiber supplement such as metamucil. We also discussed hemorrhoid banding and surgery including the relative risks and benefits of each. Surgery is the best choice in this situation. We plan to move forward with excisional hemorrhoidectomy in the near future. Risks to the surgery including, but not limited to significant pain, urinary retention, incontinence were reviewed with the patient. she understands that he is not required to undergo surgery, but chooses to do so. Will try and do this tomorrow. NPO after MN tonight for possible surgery tomorrow. Medical Decision Making: Moderate compelxity Other History and Exam Details Past Medical Hx: Past Medical History: Diagnosis Date Clostridium difficile enterocolitis 10/07/2024 CVD (cerebrovascular disease) x2 eyesight only residual Hemorrhagic diathesis Hypothyroidism Temporomandibular joint disorder Thromboembolism (CMS/HCC) Past Surgical Hx: Past Surgical History: Procedure Laterality Date HX ARTHROSCOPIC REPAIR ACL Bilateral HX COLONOSCOPY N/A 10/17/2024 COLONOSCOPY performed by Julianne David DO at [facility] HX ESOPHAGOGASTRODUODENOSCOPY N/A 10/08/2024 ESOPHAGOGASTRODUODENOSCOPY performed by Carmine Dubois MD at [facility] HX ESOPHAGOGASTRODUODENOSCOPY N/A 10/16/2024 ESOPHAGOGASTRODUODENOSCOPY performed by Mayo Taylor MD at [facility] HX HYSTERECTOMY HX INTRACRANIAL ANEURYSM REPAIR HX IVC FILTER RETRIEVAL HX LAPAROTOMY OOPHERECTOMY Right HX TUBAL LIGATION IL COLONOSCOPY FLX DX W/COLLJ SPEC WHEN PFRMD N/A 10/03/2024 COLONOSCOPY performed by Carmine Dickerson DO at [facility] IL ESOPHAGOGASTRODUODENOSCOPY TRANSORAL DIAGNOSTIC N/A 05/08/2024 ESOPHAGOGASTRODUODENOSCOPY performed by Gera Resendez DO at [facility] IL ESOPHAGOGASTRODUODENOSCOPY TRANSORAL DIAGNOSTIC N/A 10/03/2024 ESOPHAGOGASTRODUODENOSCOPY performed by Carmine Dickerson DO at [facility] IL REMOVAL IMPLANT DEEP Right 05/27/2021 HARDWARE REMOVAL performed by Rolando Riley MD at [facility] Medications: Current Facility-Administered Medications Medication Dose Route Frequency Provider Last Rate Last Admin [COMPLETED] albumin, human 25 % injection 25 Gram 25 Gram IV ONE time only Antonio III Jeb O, DO 25 Gram at 10/18/24 1031 dextrose 5 % - sodium chloride 0.9 % infusion IV see admin instructions Antonio III Jeb O, DO dextrose 50% (D50) syringe 12.5 Gram 12.5 Gram IV see admin instructions Antonio III, Jeb O, DO dextrose 50% (D50) syringe 25 Gram 25 Gram IV see admin instructions Antonio PEREZ, Jeb O, DO glucagon HCL 1 mg/mL injection 1 mg 1 mg IM see admin instructions Corina Alvarez IIIus O, DO insulin lispro (HumaLOG,ADMELOG) injection 0-6 Units 0-6 Units subCUT TID WITH meals Antonio PEREZ, Jeb O, DO potassium CHLORIDE (KLOR-CON) SR tablet 40 mEq 40 mEq Oral every 2 hours Jeb Alvarez III, DO 40mEq at 10/18/24 1143 carvediloL (COREG) tablet 3.125 mg 3.125 mg Oral BID WITH meals Jeb Alvarez III O, DO 3.125 mg at10/18/24 1143 levothyroxine (SYNTHROID) tablet 50 mcg 50 mcg Oral daily EARLY Jonathan Sampson MD 50 mcg at 10/18/24 0634 [COMPLETED] magnesium SULFATE in water 2 gram/50 mL (4 %) IVPB 2 Gram 2 Gram IV ONE time only Jonathan Sampson MD Stopped at 10/17/24 1517 traZODone (DESYREL) tablet 50 mg 50 mg Oral daily BEDTIME Jonathan Sampson MD 50 mg at 10/17/242009 [DISCONTINUED] sodium chloride 0.9 % infusion IV continuous Jonathan Sampson MD Stopped at 10/17/24 1045 naloxone (NARCAN) 0.4 mg/mL injection 0.1-0.4 mg 0.1-0.4 mg IV see admin instructions Cassie Persaud PA replacement reminder - Potassium 1 Each See Admin Instructions see admin instructions Cassie Persaud PA replacement reminder-Magnesium 1 Each See Admin Instructions see admin instructions Cassie Persaud PA replacement reminder - Phosphorus 1 Each See Admin Instructions see admin instructions Mirella Persaud PA replacement reminder-Calcium 1 Each See Admin Instructions see admin instructions Cassie Persaud PA ondansetron (ZOFRAN) 4 mg/2 mL injection 4 mg 4 mg IV every 6 hours PRN Cassie Persaud PA 4 mg at 10/18/24 0406 cefTRIAXone (ROCEPHIN) 2,000 mg in sodium chloride 0.9% 50 mL IVPB (MBP) 2,000 mg IV every 24 hours(daily) Jonathan Sampson MD Stopped at 10/17/24 2045 vancomycin (FIRVANQ) oral solution 125 mg 125 mg Oral every 6 hours Cassie Persaud PA 125 mg at 10/18/24 1146 pantoprazole (PROTONIX) 40 mg in sodium chloride 0.9% 10 mL injection 40 mg IV BID Cassie Persaud PA 40 mg at 10/18/24 0939 [Held by Provider] lactulose (ENULOSE) 10 gram/15 mL oral solution 30 mL 30 mL Oral TID Jasmyn Coy MD HYDROmorphone (PF) (DILAUDID) injection 0.3 mg 0.3 mg IV every 3 hours PRN Cassie Persaud PA 0.3 mg at 10/18/24 1140 [DISCONTINUED] octreotide (SandoSTATIN) 1,000 mcg in sodium chloride 0.9 % 200 mL infusion 50 mcg/hr IV continuous Jasmyn Coy MD Stopped at 10/17/24 1644 Allergies: Allergies Allergen Reactions Sulfa (Sulfonamide Antibiotics) Rash and Shortness of Breath/Wheezing Reaction: Rash, Short of breath, Family Hx: Family History Problem Relation Name Age of Onset Colon Cancer Neg Hx Social Hx: Social History Socioeconomic History Marital status: Spouse [...] on file Feeling Safe: Not At Risk (10/16/2024) Feeling Safe Patient has indicated abuse: : No Housing Stability: Not on file Physical Exam: Vitals: 10/18/24 1130 10/18/24 1145 10/18/24 1200 10/18/24 1215 BP: 129/56 137/65 133/55 116/53 Pulse: 78 85 81 76 Resp: 14 14 17 13 Temp: TempSrc: SpO2: 100% 98% 92% 93% Weight: Height: General appearance: awake, alert, oriented, answers questions appropriately. Head: atraumatic, Normocephalic, without obvious abnormality Eyes: conjunctivae/corneas clear, sclera non icteric Neck: neck is supple, trachea is midline. No masses identified. Cardiovascular: RRR Lungs: Breathing non-labored Abdomen: Soft, non-distended. No masses. Non tender. Extremities: extremities normal, atraumatic, no cyanosis or edema Neurologic: Grossly normal Musculoskeletal: no deformity or swelling Labs: Lab Results Component Value Date WBC 9.7 10/18/2024 HGB 8.0 (L) 10/18/2024 HCT 23.8 (L) 10/18/2024 PLT 207 10/18/2024 MCV 83.5 (L) 10/18/2024 Lab Results Component Value Date NA 133 (L) 10/18/2024 K 3.4 (L) 10/18/2024 CL 101 10/18/2024 CO2 23 10/18/2024 CA 7.6 (L) 10/18/2024 BUN 14 10/18/2024 CREAT 0.94 10/18/2024 GLUCOSE 182 (H) 10/18/2024 TOTALPROTEIN 5.0 (L) 10/18/2024 ALBUMIN 3.3 (L) 10/18/2024 BILITOTAL 0.3 10/18/2024 ALKPHOS 54 10/18/2024 AST 18 10/18/2024 ALT 14 10/18/2024 ANIONGAP 9 10/18/2024 BCRATIO SEE NOTE: 07/10/2024 Imaging: None Signed: Crescencio Aguero M.D., M.S. Colon & Rectal Surgery Office: * Zainab Quintana RN - 10/18/2024 6:48 AM CDTAssociated Order(s): IP CONSULT TO IV TEAM VASCULAR ACCESS CONSULT PATIENT NAME: Viry Quach DATE OF : 1965 CSN: [id number] DATE: 10/18/2024 Room: [address] [place] [address] Admit Date: 10/16/2024 Hospital day: LOS: 2 days INDICATION: Poor Access EXCLUSIONS/CONSIDERATIONS: Hx CVD, YARELY LAST RECORDED TEMP: Temp: 97.8 ??F (36.6 ??C) (10/18/24 0300)] Assessment Allergies Allergen Reactions Sulfa (Sulfonamide Antibiotics) Rash and Shortness of Breath/Wheezing Reaction: Rash, Short of breath, Lab Results Component Value Date/Time CREAT 1.10 (H) 10/17/2024 05:56 AM BUN 18 10/17/2024 05:56 AM NA 132 (L) 10/17/2024 05:56 AM K 3.9 10/17/2024 05:56 AM CL 100 10/17/2024 05:56 AM CO2 21 (L) 10/17/2024 05:56 AM GFR 58 (L) 10/17/2024 05:56 AM Lab Results Component Value Date/Time WBC 14.2 (H) 10/17/2024 05:56 AM HGB 8.0 (L) 10/18/2024 12:21 AM HCT 23.1 (L) 10/18/2024 12:21 AM PLT 253 10/17/2024 05:56 AM MCV 82.6 (L) 10/17/2024 05:56 AM Lab Results Component Value Date/Time INR 1.2 10/16/2024 08:42 PM INR 1.2 10/13/2024 12:08 PM INR 1.2 10/06/2024 10:05 PM PT 15.9 (H) 10/16/2024 08:42 PM PT 15.6 (H) 10/13/2024 12:08 PM PT 16.0 (H) 10/06/2024 10:05 PM Past Medical History: Diagnosis Date Clostridium difficile enterocolitis 10/07/2024 CVD (cerebrovascular disease) x2 eyesight only residual Hemorrhagic diathesis Hypothyroidism Temporomandibular joint disorder Thromboembolism (CMS/HCC) Past Surgical History: Procedure Laterality Date HX ARTHROSCOPIC REPAIR ACL Bilateral HX ESOPHAGOGASTRODUODENOSCOPY N/A 10/08/2024 ESOPHAGOGASTRODUODENOSCOPY performed by Carmine Dubois MD at [facility] HX ESOPHAGOGASTRODUODENOSCOPY N/A 10/16/2024 ESOPHAGOGASTRODUODENOSCOPY performed by Mayo Taylor MD at [facility] HX HYSTERECTOMY HX INTRACRANIAL ANEURYSM REPAIR HX IVC FILTER RETRIEVAL HX LAPAROTOMY OOPHERECTOMY Right HX TUBAL LIGATION IL COLONOSCOPY FLX DX W/COLLJ SPEC WHEN PFRMD N/A 10/03/2024 COLONOSCOPY performed by Carmine Dickerson DO at [facility] IL ESOPHAGOGASTRODUODENOSCOPY TRANSORAL DIAGNOSTIC N/A 05/08/2024 ESOPHAGOGASTRODUODENOSCOPY performed by Gera Resendez DO at [facility] IL ESOPHAGOGASTRODUODENOSCOPY TRANSORAL DIAGNOSTIC N/A 10/03/2024 ESOPHAGOGASTRODUODENOSCOPY performed by Carmine Dickerson DO at [facility] IL REMOVAL IMPLANT DEEP Right 05/27/2021 HARDWARE REMOVAL performed by Rolando Riley MD at [facility] Current Facility-Administered Medications: levothyroxine (SYNTHROID) tablet 50 mcg, 50 mcg, Oral, daily EARLY, Jonathan Sampson MD, 50 mcg at 10/18/24 0634 [COMPLETED] magnesium SULFATE in water 2 gram/50 mL (4 %) IVPB 2 Gram, 2 Gram, IV, ONE time only, Jonathan Sampson MD, Stopped at 10/17/24 1517 traZODone (DESYREL) tablet 50 mg, 50 mg, Oral, daily BEDTIME, Jonathan Sampson MD, 50 mg at 010 [DISCONTINUED] sodium chloride 0.9 % infusion, , IV, continuous, Jonathan Sampson MD, Stopped at 10/17/24 1045 naloxone (NARCAN) 0.4 mg/mL injection 0.1-0.4 mg, 0.1-0.4 mg, IV, see admin instructions, Cassie Persaud PA replacement reminder - Potassium, 1 Each, See Admin Instructions, see admin instructions, Cassie Persaud PA replacement reminder-Magnesium, 1 Each, See Admin Instructions, see admin instructions, Cassie Persaud PA replacement reminder - Phosphorus, 1 Each, See Admin Instructions, see admin instructions, Cassie Persaud PA replacement reminder-Calcium, 1 Each, See Admin Instructions, see admin instructions, Cassie Persaud PA ondansetron (ZOFRAN) 4 mg/2 mL injection 4 mg, 4 mg, IV, every 6 hours PRN, Cassie Persaud PA, 4 mg at 10/18/24 0406 cefTRIAXone (ROCEPHIN) 2,000 mg in sodium chloride 0.9% 50 mL IVPB (MBP), 2,000 mg, IV, every 24 hours (daily), Jonathan Sampson MD, Stopped at 10/17/242044 vancomycin (FIRVANQ) oral solution 125 mg, 125 mg, Oral, every 6 hours, Cassie Persaud PA, 125 mg at 10/18/24 0632 pantoprazole (PROTONIX) 40 mg in sodium chloride 0.9% 10 mL injection, 40 mg, IV, BID, Mirella Persaud PA, 40 mg at 10/17/242010 [Held by Provider] lactulose (ENULOSE) 10 gram/15 mL oral solution 30 mL, 30 mL, Oral, TID, Jasmyn Coy MD HYDROmorphone (PF) (DILAUDID) injection 0.3 mg, 0.3 mg, IV, every 3 hours PRN, Cassie Persaud PA, 0.3 mg at 10/18/24 0433 [DISCONTINUED] octreotide (SandoSTATIN) 1,000 mcg in sodium chloride 0.9 % 200 mL infusion, 50 mcg/hr, IV, continuous, Jasmyn Coy MD, Stopped at 10/17/24 1644 [DISCONTINUED] levothyroxine (SYNTHROID) tablet 50 mcg, 50 mcg, Oral, daily, Cassie Persaud PA [DISCONTINUED] lactated ringers infusion, , IV, continuous, Jasmyn Coy MD, Stopped at 10/17/24 0818 Facility-Administered Medications Ordered in Other Encounters: [DISCONTINUED] lidocaine 2 % (XYLOCAINE) injection, , IV, intra-proc PRN, Rahel Castillo CRNA, 100 mg at 10/17/24 1214 [DISCONTINUED] propofoL (DIPRIVAN) injection, , IV, intra-proc PRN, Rahel Castillo CRNA, 60mg at 10/17/24 1222 [DISCONTINUED] lactated ringers infusion, , IV, intra-proc continuous PRN, Rahel Castillo, LUCA, Stopped-Anesthesia at 10/17/24 [address] PIV & labs. Zainab Quintana RN * Naun Montiel RN - 10/17/2024 5:43 AM CDTAssociated Order(s): IP CONSULT TO IV TEAM VASCULAR ACCESS CONSULT PATIENT NAME: Viry Quach DATE OF : 1965 CSN: [id number] DATE: 10/17/2024 Room: [address] [place] [address] Admit Date: 10/16/2024 Hospital day: LOS: 1 day INDICATION: difficult lab draw EXCLUSIONS/CONSIDERATIONS: none noted in chart LAST RECORDED TEMP: Temp: 98 ??F (36.7 ??C) (10/17/24 0300)] Assessment Allergies Allergen Reactions Sulfa (Sulfonamide Antibiotics) Rash and Shortness of Breath/Wheezing Reaction: Rash, Short of breath, Past Medical History: Diagnosis Date Clostridium difficile enterocolitis 10/07/2024 CVD (cerebrovascular disease) x2 eyesight only residual Hemorrhagic diathesis Hypothyroidism Temporomandibular joint disorder Thromboembolism (CMS/HCC) Past Surgical History: Procedure Laterality Date HX ARTHROSCOPIC REPAIR ACL Bilateral HX ESOPHAGOGASTRODUODENOSCOPY N/A 10/08/2024 ESOPHAGOGASTRODUODENOSCOPY performed by Carmine Dubois MD at [facility] HX HYSTERECTOMY HX INTRACRANIAL ANEURYSM REPAIR HX IVC FILTER RETRIEVAL HX LAPAROTOMY OOPHERECTOMY Right HX TUBAL LIGATION IL COLONOSCOPY FLX DX W/COLLJ SPEC WHEN PFRMD N/A 10/03/2024 COLONOSCOPY performed by Carmine Dickerson DO at [facility] IL ESOPHAGOGASTRODUODENOSCOPY TRANSORAL DIAGNOSTIC N/A 05/08/2024 ESOPHAGOGASTRODUODENOSCOPY performed by Gera Resendez DO at [facility] IL ESOPHAGOGASTRODUODENOSCOPY TRANSORAL DIAGNOSTIC N/A 10/03/2024 ESOPHAGOGASTRODUODENOSCOPY performed by Carmine Dickerson DO at [facility] IL REMOVAL IMPLANT DEEP Right 05/27/2021 HARDWARE REMOVAL performed by Rolando Riley MD at [facility] Current Facility-Administered Medications: [COMPLETED] desmopressin (DDAVP) 28.12 mcg in sodium chloride 0.9 % 50 mL IVPB, 0.4 mcg/kg, IV, ONEtime only, Je Garnett MD, Stopped at 10/16/242215 [COMPLETED] cefTRIAXone (ROCEPHIN) 2,000 mg in sodium chloride 0.9% 50 mL IVPB (MBP), 2,000 mg, IV,ONE time only, Je Garnett MD, Stopped at 10/16/242137 [COMPLETED] pantoprazole (PROTONIX) 80 mg in sodium chloride 0.9% 20 mL injection, 80 mg, IV, ONE time only, Je Garnett MD, 80 mg at 10/16/242052 [COMPLETED] fentaNYL PF (SUBLIMAZE) 50 mcg/mL injection 25 mcg, 25 mcg, IV, ONE time only, Je Garnett MD, 25 mcg at 10/16/242048 [COMPLETED] HYDROmorphone (PF) (DILAUDID) injection 0.5 mg, 0.5 mg, IV, ONE time only, Je Garnett MD, 0.5 mg at 10/16/242141 [COMPLETED] FENTANYL (PF) 50 MCG/ML INJECTION SOLUTION (CABINET OVERRIDE), , , , , 50 mcg at 10/16/242251 [COMPLETED] MIDAZOLAM 1 MG/ML INJECTION SOLUTION (CABINET OVERRIDE), , , , , 2 mg at 10/16/242249 [COMPLETED] MIDAZOLAM 1 MG/ML INJECTION SOLUTION (CABINET OVERRIDE), , , , , 2 mg at 10/16/242249 naloxone (NARCAN) 0.4 mg/mL injection 0.1-0.4 mg, 0.1-0.4 mg, IV, see admin instructions, Cassie Persaud PA replacement reminder - Potassium, 1 Each, See Admin Instructions, see admin instructions, Cassie Persaud PA replacement reminder-Magnesium, 1 Each, See Admin Instructions, see admin instructions, Cassie Persaud PA replacement reminder - Phosphorus, 1 Each, See Admin Instructions, see admin instructions, Cassie Persaud PA replacement reminder-Calcium, 1 Each, See Admin Instructions, see admin instructions, Cassie Persaud PA ondansetron (ZOFRAN) 4 mg/2 mL injection 4 mg, 4 mg, IV, every 6 hours PRN, Cassie Persaud PA cefTRIAXone (ROCEPHIN) 2,000 mg in sodium chloride 0.9% 50 mL IVPB (MBP), 2,000 mg, IV, every 24 hours (daily), Cassie Persaud PA vancomycin (FIRVANQ) oral solution 125 mg, 125 mg, Oral, every 6 hours, Cassie Persaud PA octreotide (SandoSTATIN) 1,000 mcg in sodium chloride 0.9 % 200 mL infusion, 50 mcg/hr, IV, continuous, Jasmyn Coy MD, Last Rate: 10 mL/hr at 10/16/242344, 50 mcg/hr at 10/16/242344 pantoprazole (PROTONIX) 40 mg in sodium chloride 0.9% 10 mL injection, 40 mg, IV, BID, Mirella Persaud PA [COMPLETED] peg 3350-electrolytes (GOLYTELY) oral solution 4,000 mL, 1 Bottle, Oral, ONE time only,Mayo Taylor MD, 4,000 mL at 10/17/24 0032 levothyroxine (SYNTHROID) tablet 50 mcg, 50 mcg, Oral, daily, Cassie Persaud PA lactulose (ENULOSE) 10 gram/15 mL oral solution 30 mL, 30 mL, Oral, TID, Jasmyn Coy MD lactated ringers infusion, , IV, continuous, Jasmyn Coy MD, Last Rate: 50 mL/hr at 10/16/242343, New Bag at 10/16/242343 HYDROmorphone (PF) (DILAUDID) injection 0.3 mg, 0.3 mg, IV, every 3 hours PRN, Cassie Persaud PA, 0.3 mg at 08/27/25 0305 [DISCONTINUED] octreotide (SandoSTATIN) 100 mcg/mL injection 500 mcg, 500 mcg, IV, every 8 hours, Je Garnett MD, 500 mcg at 10/16/242054 [DISCONTINUED] tranexamic acid (CYKLOKAPRON) 100 mg/mL solution 1,000 mg, 1,000 mg, IV, ONE time only, Je Garnett MD [DISCONTINUED] octreotide acetate (SandoSTATIN) 500 mcg/mL (1 mL) syringe 500 mcg, 500 mcg, IV, every 8 hours, Jasmyn Coy MD [DISCONTINUED] naloxone (NARCAN) 0.4 mg/mL injection 0.1-0.4 mg, 0.1-0.4 mg, IV, see admin instructions, Jasmyn Coy MD [DISCONTINUED] replacement reminder - Potassium, 1 Each, See Admin Instructions, see admin instructions, Jasmyn Coy MD [DISCONTINUED] replacement reminder-Magnesium, 1 Each, See Admin Instructions, see admin instructions, Jasmyn Coy MD [DISCONTINUED] replacement reminder - Phosphorus, 1 Each, See Admin Instructions, see admin instructions, Jasmyn Coy MD [DISCONTINUED] replacement reminder-Calcium, 1 Each, See Admin Instructions, see admin instructions, Jasmyn Coy MD [DISCONTINUED] cefTRIAXone (ROCEPHIN) 2,000 mg in sodium chloride 0.9% 50 mL IVPB (MBP), 2,000 mg, IV, every 24 hours (daily), Jasmyn Coy MD [DISCONTINUED] pantoprazole (PROTONIX) 40 mg in sodium chloride 0.9% 10 mL injection, 40 mg, IV, daily, Jasmyn Coy MD [DISCONTINUED] vancomycin (VANCOCIN) capsule 125 mg, 125 mg, Oral, every 6 hours, Jasmyn Coy MD PLAN Venipuncture for labs Naun Montiel RN * Edie Lou RN - 10/17/2024 12:29 AM CDTAssociated Order(s): IP CONSULT TO IV TEAM VASCULAR ACCESS CONSULT PATIENT NAME: Viry Quach DATE OF : 1965 CSN: [id number] DATE: 10/17/2024 Room: [address] [place] [address] Admit Date: 10/16/2024 Hospital day: LOS: 1 day INDICATION: Other EXCLUSIONS/CONSIDERATIONS: none LAST RECORDED TEMP: Temp: 98.3 ??F (36.8 ??C) (10/16/24 2230)] Assessment Allergies Allergen Reactions Sulfa (Sulfonamide Antibiotics) Rash and Shortness of Breath/Wheezing Reaction: Rash, Short of breath, Lab Results Component Value Date/Time CREAT 1.12 (H) 10/16/2024 08:42 PM BUN 18 10/16/2024 08:42 PM NA 132 (L) 10/16/2024 08:42 PM K 3.9 10/16/2024 08:42 PM CL 101 10/16/2024 08:42 PM CO2 21 (L) 10/16/2024 08:42 PM GFR 56 (L) 10/16/2024 08:42 PM Lab Results Component Value Date/Time WBC 15.5 (H) 10/16/2024 08:42 PM HGB 8.4 (L) 10/16/2024 08:42 PM HCT 25.2 (L) 10/16/2024 08:42 PM PLT 309 10/16/2024 08:42 PM MCV 82.1 (L) 10/16/2024 08:42 PM Lab Results Component Value Date/Time INR 1.2 10/16/2024 08:42 PM INR 1.2 10/13/2024 12:08 PM INR 1.2 10/06/2024 10:05 PM PT 15.9 (H) 10/16/2024 08:42 PM PT 15.6 (H) 10/13/2024 12:08 PM PT 16.0 (H) 10/06/2024 10:05 PM Past Medical History: Diagnosis Date Clostridium difficile enterocolitis 10/07/2024 CVD (cerebrovascular disease) x2 eyesight only residual Hemorrhagic diathesis Hypothyroidism Temporomandibular joint disorder Thromboembolism (CMS/HCC) Past Surgical History: Procedure Laterality Date HX ARTHROSCOPIC REPAIR ACL Bilateral HX ESOPHAGOGASTRODUODENOSCOPY N/A 10/08/2024 ESOPHAGOGASTRODUODENOSCOPY performed by Carmine Dubois MD at [facility] HX HYSTERECTOMY HX INTRACRANIAL ANEURYSM REPAIR HX IVC FILTER RETRIEVAL HX LAPAROTOMY OOPHERECTOMY Right HX TUBAL LIGATION IL COLONOSCOPY FLX DX W/COLLJ SPEC WHEN PFRMD N/A 10/03/2024 COLONOSCOPY performed by Carmine Dickerson DO at [facility] IL ESOPHAGOGASTRODUODENOSCOPY TRANSORAL DIAGNOSTIC N/A 05/08/2024 ESOPHAGOGASTRODUODENOSCOPY performed by Gera Resendez DO at [facility] IL ESOPHAGOGASTRODUODENOSCOPY TRANSORAL DIAGNOSTIC N/A 10/03/2024 ESOPHAGOGASTRODUODENOSCOPY performed by Carmine Dickerson DO at [facility] IL REMOVAL IMPLANT DEEP Right 05/27/2021 HARDWARE REMOVAL performed by Rolando Riley MD at [facility] Current Facility-Administered Medications: [COMPLETED] desmopressin (DDAVP) 28.12 mcg in sodium chloride 0.9 % 50 mL IVPB, 0.4 mcg/kg, IV, ONEtime only, Je Garnett MD, Stopped at 10/16/242215 [COMPLETED] cefTRIAXone (ROCEPHIN) 2,000 mg in sodium chloride 0.9% 50 mL IVPB (MBP), 2,000 mg, IV,ONE time only, Je Garnett MD, Stopped at 10/16/242137 [COMPLETED] pantoprazole (PROTONIX) 80 mg in sodium chloride 0.9% 20 mL injection, 80 mg, IV, ONE time only, Je Garnett MD, 80 mg at 10/16/242052 [COMPLETED] fentaNYL PF (SUBLIMAZE) 50 mcg/mL injection 25 mcg, 25 mcg, IV, ONE time only, Je Garnett MD, 25 mcg at 10/16/242048 [COMPLETED] HYDROmorphone (PF) (DILAUDID) injection 0.5 mg, 0.5 mg, IV, ONE time only, Je Garnett MD, 0.5 mg at 10/16/242141 [COMPLETED] FENTANYL (PF) 50 MCG/ML INJECTION SOLUTION (CABINET OVERRIDE), , , , , 50 mcg at 10/16/242251 [COMPLETED] MIDAZOLAM 1 MG/ML INJECTION SOLUTION (CABINET OVERRIDE), , , , , 2 mg at 10/16/242249 [COMPLETED] MIDAZOLAM 1 MG/ML INJECTION SOLUTION (CABINET OVERRIDE), , , , , 2 mg at 10/16/242249 naloxone (NARCAN) 0.4 mg/mL injection 0.1-0.4 mg, 0.1-0.4 mg, IV, see admin instructions, Cassie Persaud PA replacement reminder - Potassium, 1 Each, See Admin Instructions, see admin instructions, Cassie Persaud PA replacement reminder-Magnesium, 1 Each, See Admin Instructions, see admin instructions, Cassie Persaud PA replacement reminder - Phosphorus, 1 Each, See Admin Instructions, see admin instructions, Cassie Persaud PA replacement reminder-Calcium, 1 Each, See Admin Instructions, see admin instructions, Cassie Persaud PA ondansetron (ZOFRAN) 4 mg/2 mL injection 4 mg, 4 mg, IV, every 6 hours PRN, Cassie Persaud PA cefTRIAXone (ROCEPHIN) 2,000 mg in sodium chloride 0.9% 50 mL IVPB (MBP), 2,000 mg, IV, every 24 hours (daily), Cassie Persaud PA vancomycin (FIRVANQ) oral solution 125 mg, 125 mg, Oral, every 6 hours, Cassie Persaud PA octreotide (SandoSTATIN) 1,000 mcg in sodium chloride 0.9 % 200 mL infusion, 50 mcg/hr, IV, continuous, Jasmyn Coy MD, Last Rate: 10 mL/hr at 10/16/242344, 50 mcg/hr at 10/16/242344 pantoprazole (PROTONIX) 40 mg in sodium chloride 0.9% 10 mL injection, 40 mg, IV, BID, Mirella Persaud PA peg 3350-electrolytes (GOLYTELY) oral solution 4,000 mL, 1 Bottle, Oral, ONE time only, Mayo Taylor MD levothyroxine (SYNTHROID) tablet 50 mcg, 50 mcg, Oral, daily, Cassie Persaud PA lactulose (ENULOSE) 10 gram/15 mL oral solution 30 mL, 30 mL, Oral, TID, Jasmyn Coy MD lactated ringers infusion, , IV, continuous, Jasmyn Coy MD, Last Rate: 50 mL/hr at 10/16/24 2344, New Bag at 10/16/24 2344 HYDROmorphone (PF) (DILAUDID) injection 0.3 mg, 0.3 mg, IV, every 3 hours PRN, Cassie Persaud PA, 0.3 mg at 10/17/24 0000 [DISCONTINUED] octreotide (SandoSTATIN) 100 mcg/mL injection 500 mcg, 500 mcg, IV, every 8 hours, Je Garnett MD, 500 mcg at 10/16/242054 [DISCONTINUED] tranexamic acid (CYKLOKAPRON) 100 mg/mL solution 1,000 mg, 1,000 mg, IV, ONE time only, Je Garnett MD [DISCONTINUED] octreotide acetate (SandoSTATIN) 500 mcg/mL (1 mL) syringe 500 mcg, 500 mcg, IV, every 8 hours, Jasmyn Coy MD [DISCONTINUED] naloxone (NARCAN) 0.4 mg/mL injection 0.1-0.4 mg, 0.1-0.4 mg, IV, see admin instructions, Jasmyn Coy MD [DISCONTINUED] replacement reminder - Potassium, 1 Each, See Admin Instructions, see admin instructions, Jasmyn Coy MD [DISCONTINUED] replacement reminder-Magnesium, 1 Each, See Admin Instructions, see admin instructions, Jasmyn Coy MD [DISCONTINUED] replacement reminder - Phosphorus, 1 Each, See Admin Instructions, see admin instructions, Jasmyn Coy MD [DISCONTINUED] replacement reminder-Calcium, 1 Each, See Admin Instructions, see admin instructions, Jasmyn Coy MD [DISCONTINUED] cefTRIAXone (ROCEPHIN) 2,000 mg in sodium chloride 0.9% 50 mL IVPB (MBP), 2,000 mg, IV, every 24 hours (daily), Jasmyn Coy MD [DISCONTINUED] pantoprazole (PROTONIX) 40 mg in sodium chloride 0.9% 10 mL injection, 40 mg, IV, daily, Jasmyn Coy MD [DISCONTINUED] vancomycin (VANCOCIN) capsule 125 mg, 125 mg, Oral, every 6 hours, Jasmyn Coy MD PLAN labs Edie Lou RN documented in this encounter OR Notes * Operative Report - Crescencio Aguero MD - 10/19/2024 1:54 PM CDT Preoperative diagnosis: Hemorrhoids Postoperative diagnosis: Mixed internal and external hemorrhoids Procedures performed: 1. Exam under anesthesia 2. Excisional hemorrhoidectomy of internal and external hemorrhoids, 3 columns Surgeon: Crescencio Aguero M.D. Medical Assistant Dermatology: BERKLEY Conner STUDY ABROAD ADVISOR JUSTIFICATION: The use of an advanced physician practice consultant was required due to the complexity of the procedure and lack of similarly qualified assistants. Medical Assistant Dermatology tasks include: Positioning, prepping & draping, retraction, general surgical assistance including tying, suturing, suction, etc, and wound closure and dressing application Anesthesia: GETA Findings: mixed hemorrhoids in the left lateral, right anterolateral, and right posterolateral positions. EBL: minimal Specimens: hemorrhoids Description of procedure: After obtaining informed consent the patient was taken to the OR, placed in a supine position and then underwent induction with general anesthesia. The patient was then flipped into the prone-jackknife position with all pressure points well padded. Tape was applied to the buttocks to provide lateral retraction and then the perineum was prepped and draped in a standard, sterile fashion. A digital rectal exam was performed and then the Purvis bi-valve retractor was used to carefully examine the anal canal. Findings as described above A perianal block with local anesthetic was performed. Internal and external hemorrhoidal groups were then removed from the left lateral, right anterolateral and right posterolateral positions. This was done using electrocautery to remove an ellipse of tissue starting just external to the anus and dissecting down to the level of the internal sphincter, which was carefully preserved, and removing the overlying hemorrhoidal cushion down into the anal canal removing the grossly redundant tissue. The defects were over-sewn with running-locking 3- 0 vicryl suture. I then oversewed each suture line asecond time with 2-0 Vicryl. The anal canal was then re-examined with the Purvis bi-valve retractor, hemostasis was observed. More than ample tissue was observed between suture lines. The patient tolerated the procedure well. Crescencio Aguero M.D. documented in this encounter ED Notes * Fely Kee RN - 10/16/2024 10:05 PM CDT Report called to 6A * Audie Alvarez RN - 10/16/2024 8:52 PM CDT VASCULAR ACCESS UTILIZING ULTRASOUND TECHNOLOGY NOTE PATIENT NAME: Viry Quach DATE OF : 1965 [facility]: [id number] DATE: 10/16/2024 Admit Date: 10/16/2024 Hospital day: LOS: 0 days LINE STATUS: A peripheral IV catheter utilizing ultrasound technology was successfully inserted and can be used. PERIPHERAL IV ACCESS UTILIZING ULTRASOUND TECHNOLOGY PROCEDURE Ultrasound assessment was performed to assess adequacy of vascular anatomy prior to insertion. Adequate vessel was located Insertion site cleansed for 30 seconds with Chlora-prep Allowed to dry 30 seconds or until completely dry before initial needle stick. IV access obtained in the Left Brachial vein utilizing ultrasound assistance. Vein was well visualized. Access obtained on the first attempt. Size of IV is IV Catheter Size: #18 gauge 10 minutes required to complete procedure No problems noted with site, IV is patent and no redness. (+) blood return noted and flushed easily. Transparent dressing applied and dressing dated. Pt tolerated well. Primary care nurse notified of catheter placement. CARE AND MAINTENANCE This is not a central line. Attempt to avoid blood pressures on the arm with IV Requires physician order for blood draws This is peripheral IV only Can remain in place as long as site & extremity remain asymptomatic Flush catheter at least once per shift to ensure patency using pulsating technique Change dressing every 7 days and as needed using aseptic technique Audie Alvarez RN * Fely Kee RN - 10/16/2024 8:30 PM CDT Patient had moderate amount of bright red blood noted in the commode. Patient states her stools have not been purely blood like this, and that this is new. Provider notified. * Fely Kee RN - 10/16/2024 8:00 PM CDT Patient arrives via EMS being transferred from an ER in [place]. Patient presented to the ER for bloody diarrhea - was recently admitted here for cdiff and has been taking PO vancomycin. Pt states she has a hx of a clotting disorder and had a recent colonoscopy which pt states she acquired the cdiff after that. Transferring facility administered 1 unit of PRBCs (hemoglobin was 7). EMS gave 4 mg of morphine and 4 mg of zofran en route. Pt appears to be slightly pale but in no acute distress. Patient alert and oriented, on room air. * Je Garnett MD - 10/16/2024 7:49 PM CDTAssociated Order(s): Critical Care HISTORY OF PRESENT ILLNESS 59-year-old female with recently diagnosed liver cirrhosis, portal venous hypertension, and C. diffinfection transferred from an outside hospital due to bloody, watery stools and bright red bleedingper rectum. Patient reports this is a new issue that began on October 03, 2024. She received one unit of packed red blood cells prior to transfer and had a paracentesis on October 13, 2024. Patient reports continued bright red rectal bleeding even after blood transfusion. She also reports hematemesislast night and this morning. Patient denies any history of GI bleeding with her hereditary hemorrhagic telangiectasia (HHT), stating she typically only bleeds from her tongue and nose. She reports abdominal distention that feels similar to before her recent paracentesis. Patient denies fevers. She has been taking oral vancomycin for C. diff since approximately October 13, 2024. Patient has a medical history significant for factor V Leiden, with history of pulmonary embolism and two strokes. She was on baby aspirin for HHT-related complications including a pulmonary AVM but was instructed to stop taking it today. Patient reports she was previously healthy with no issues prior to the onset of these symptoms earlier this month. PAST MEDICAL HISTORY REVIEWED MEDICAL: Patient has [...] (sulfonamide antibiotics) PHYSICAL EXAM INITIAL VS BP: 118/71 (10/16/241955), Heart Rate: 99 bpm (10/16/241955), Resp: 18 (10/16/241955), Pulse: 99(10/16/241955), Temp: 98 ??F (36.7 ??C) (10/16/241955), Temp src: Oral (10/16/241955), SpO2: 97 % (10/16/241955), Height: 5' 9 (175.3 cm) (10/16/242229), Weight: 70.3 kg (155 lb) (10/16/241955), BMI (Calculated): 21.84 (10/16/242229) No LMP recorded. Patient has had a hysterectomy. Physical Exam Constitutional: General: She is not in acute distress. HENT: Head: Normocephalic and atraumatic. Nose: Nose normal. Eyes: Conjunctiva/sclera: Conjunctivae normal. Pupils: Pupils are equal, round, and reactive to light. Cardiovascular: Rate and Rhythm: Normal rate and regular rhythm. Pulmonary: Effort: Pulmonary effort is normal. No respiratory distress. Breath sounds: Normal breath sounds. Abdominal: General: There is no distension. Palpations: Abdomen is soft. Tenderness: There is no abdominal tenderness. There is no guarding or rebound. Comments: Abdominal includes GI systems exam as noted Musculoskeletal: General: Normal range of motion. Cervical back: Normal range of motion and neck supple. Skin: General: Skin is warm and dry. Neurological: Mental Status: She is alert and oriented to person, place, and time. Cranial Nerves: No cranial nerve deficit. DIAGNOSTICS LAB: CBC WITH DIFFERENTIAL - Abnormal Result Value WBC 15.5 (*) RBC 3.07 (*) HEMOGLOBIN 8.4 (*) HEMATOCRIT 25.2 (*) MCV 82.1 (*) MCH 27.4 MCHC 33.3 PLATELETS 309 MPV 11.4 RDW 17.1 (*) RDW-STDEV 51.2 NEUTROPHILS 61 LYMPHOCYTES 22 (*) MONOCYTES 16 (*) EOSINOPHILS 0 BASOPHILS 0 IMMATURE GRANULOCYTES 1 NEUTROPHIL ABSOLUTE 9.48 (*) LYMPHOCYTE ABSOLUTE 3.45 MONOCYTE ABSOLUTE 2.44 (*) EOSINOPHIL ABSOLUTE 0.01 BASOPHILS ABSOLUTE 0.06 IMMATURE GRANULOCYTES ABSOLUTE 0.09 SMEAR REVIEWED: NN - No Action Needed PROTIME-INR - Abnormal PROTIME 15.9 (*) INR 1.2 COMPREHENSIVE METABOLIC PANEL - Abnormal SODIUM 132 (*) POTASSIUM 3.9 CHLORIDE 101 CO2 21 (*) CALCIUM 8.1 (*) BUN 18 CREATININE 1.12 (*) GLUCOSE 119 (*) TOTAL PROTEIN 5.5 (*) ALBUMIN 3.4 (*) BILIRUBIN TOTAL 0.8 ALKALINE PHOSPHATASE 59 AST 18 ALT 17 GFR 56 (*) ANION GAP 10 PTT - Normal PTT 27.6 LACTIC ACID - Normal LACTIC ACID 1.6 MAGNESIUM LEVEL - Normal MAGNESIUM 2.0 GI PATHOGEN PCR PANEL TYPE AND SCREEN ABO GROUP O RH (D) TYPE Negative ANTIBODY SCREEN Negative PREPARE RED BLOOD CELLS COMPONENT TYPE [id number] COMPONENT IDENTIFICATION [id number] UNIT ABO O UNIT RH NEG CROSSMATCH Compatible COMPONENT STATUS Selected COMPONENT EXPIRATION DATE/TIME [id number] COMPONENT CODING SYSTEM 9500 VOLUME, BLOOD PRODUCT 350 PREPARE RED BLOOD CELLS COMPONENT TYPE [id number] COMPONENT IDENTIFICATION [id number] UNIT ABO O UNIT RH NEG CROSSMATCH Compatible COMPONENT STATUS Selected COMPONENT EXPIRATION DATE/TIME [id number] COMPONENT CODING SYSTEM 9500 VOLUME, BLOOD PRODUCT 350 PREPARE RED BLOOD CELLS COMPONENT TYPE [id number] COMPONENT IDENTIFICATION [id number] UNIT ABO O UNIT RH NEG CROSSMATCH Compatible COMPONENT STATUS Selected COMPONENT EXPIRATION DATE/TIME [id number] COMPONENT CODING SYSTEM 9500 VOLUME, BLOOD PRODUCT 350 PREPARE RED BLOOD CELLS COMPONENT TYPE [id number] COMPONENT IDENTIFICATION [id number] UNIT ABO O UNIT RH NEG CROSSMATCH Compatible COMPONENT STATUS Selected COMPONENT EXPIRATION DATE/TIME [id number] COMPONENT CODING SYSTEM 9500 VOLUME, BLOOD PRODUCT 350 RADIOLOGY: No orders to display EKG: PROCEDURES Critical Care Performed by: Je Garnett MD Authorized by: Je Garnett MD Critical care provider statement: Critical care time (minutes): 80 Critical care was necessary to treat or prevent imminent or life-threatening deterioration of the following conditions: 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, 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 Critical care was time spent personally by me on the following activities: Blood draw for specimens, development of treatment plan with patient or surrogate, discussions with consultants, evaluation of patient's response to treatment, examination of patient, obtaining history from patient or surrogate, review of old charts, re-evaluation of patient's condition, pulse oximetry, ordering and reviewof radiographic studies, ordering and review of laboratory studies and ordering and performing treatments and interventions MEDICAL DECISION MAKING AND PLAN OF CARE ED Course as of 10/17/246Oct 16, 20242126 Spoke to Dr. Brandon VIVAR who is calling in the team to scope this patient [] ED Course User Index [] Je Garnett MD Medical Decision Making This is a 59-year-old female with recently diagnosed liver cirrhosis and portal hypertension presenting with acute GI bleeding, likely from esophageal varices versus lower GI source, complicated by concurrent C. diff infection and history of HHT and hypercoagulable state. # Acute GI Bleeding Admit to inpatient service for further management. Consult GI for urgent endoscopy to identify and potentially treat bleeding source. Type and screen for additional blood products. Administer desmopressin to reverse effects of aspirin. Cross-match for PRBC transfusion if continued bleeding or symptomatic anemia. Empiric treatment for potential variceal bleeding. Reverse ASA with desmoprssin # Liver Cirrhosis/Portal Hypertension Continue management of complications including ascites and varices. Follow up on previously scheduled appointment at [place] (February). Monitor LFTs and coagulation studies. # C. diff Infection Continue oral vancomycin therapy, timing to be coordinated with GI procedures. Monitor for worsening symptoms. # Hypercoagulable State (Factor V Leiden) Hold aspirin given active bleeding. Reassess anticoagulation/antiplatelet needs once bleeding is controlled. # Disposition Admit to inpatient service with close monitoring. Ultrasound-guided IV placement for reliable access. Provide small amounts of ice chips for comfort as tolerated. Amount and/or Complexity of Data Reviewed Labs: ordered. Radiology: ordered. ECG/medicine tests: ordered. Risk Prescription drug management. Decision regarding hospitalization. Clinical Scoring & Consults Medications Administered During the ED Stay from 10/16/2024 1949 to 10/16/20242229 Date/Time Order Dose Route Action 10/16/2024 221 CDT desmopressin (DDAVP) 28.12 mcg in sodium chloride 0.9 % 50 mL IVPB 0 mcg IV Stopped 10/16/20242145 CDT desmopressin (DDAVP) 28.12 mcg in sodium chloride 0.9 % 50 mL IVPB 28.12 mcg IVNew Bag 10/16/20242054 CDT octreotide (SandoSTATIN) 100 mcg/mL injection 500 mcg 500 mcg IV Given 10/16/20242137 CDT cefTRIAXone (ROCEPHIN) 2,000 mg in sodium chloride 0.9% 50 mL IVPB (MBP) 0 mg IV Stopped 10/16/20242107 CDT cefTRIAXone (ROCEPHIN) 2,000 mg in sodium chloride 0.9% 50 mL IVPB (MBP) 2,000 mg IV New Bag 10/16/20242052 CDT pantoprazole (PROTONIX) 80 mg in sodium chloride 0.9% 20 mL injection 80 mg IV Given 10/16/20242048 CDT fentaNYL PF (SUBLIMAZE) 50 mcg/mL injection 25 mcg 25 mcg IV Given 10/16/20242141 CDT HYDROmorphone (PF) (DILAUDID) injection 0.5 mg 0.5 mg IV Given 10/16/20242144 CDT tranexamic acid (CYKLOKAPRON) 100 mg/mL solution 1,000 mg 1,000 mg IV Not Given Current Discharge Medication List CONTINUE these medications which have NOT CHANGED Details pantoprazole (PROTONIX) 40 mg Tablet, Delayed Release (E.C.) Take 1 Tablet (40 mg) by mouth 2 timesdaily. Qty: 60 Tablet, Refills: 0 vancomycin (VANCOCIN) 125 mg Capsule Take 1 Capsule (125 mg) by mouth every 6 hours for 12 days. Qty: 48 Capsule, Refills: 0 sodium chloride 0.9 % Parenteral Solution with iron sucrose 100 mg iron/5 mL Solution Inject by intravenous injection one time only. carvediloL (Coreg) 6.25 mg tablet Take 1 Tablet (6.25 mg) by mouth daily. Qty: 30 Tablet, Refills: 3 HYDROcodone-acetaminophen (NORCO) 5-325 mg tablet Take by mouth. PRN tiZANidine (ZANAFLEX) 4 mg Tablet ondansetron (ZOFRAN ODT) 4 mg Tablet, Rapid Dissolve Take 4 mg by mouth every 6 hours as needed forNausea. IRON PS [id number] ACID ORAL Take by mouth. montelukast (SINGULAIR) [...] mg by mouth daily. 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 See after visit summary for patient education on discharged patients. ED Disposition ED Disposition Admit Condition Stable User Je Garnett MD Date/Time TueOct 16, 2024 9:41 PM Comment -- ATTESTATION STATEMENTS All past medical history, pertinent outside hospital records, nursing notes and vital signs were personally reviewed by me. All laboratory studies, imaging studies, EKGs done today in the ER personally reviewed and interpreted by ER physician. 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 Expected Discharge Date Oct 22, 2024 Plan Discharge To: [facility];Home with family assist;Home or Self Care;Home Health Services (10/17/241654) Plan Discharge To - Alternate: [facility] Facility (10/17/241654) Referrals Status: Preferred Pharmacy: [facility] [address] [place] [address] Patient / Family Communications Resources Provided Transportation Plan Follow Up Appointments Scheduled Lynn Clemente RN * Care Plan - Trixie Melissa RN - 10/23/2024 5:52 AM CDT Shift Summary Two doses of oxyCODONE-acetaminophen were given for persistent abdominal discomfort. Safety checks were performed and no falls or injuries were documented during the shift. Cognitive and neurological status remained stable and at baseline throughout the shift. Hemoglobin and hematocrit remained low, and gastrointestinal discomfort persisted with no oral intake documented. Overall, remained stable with ongoing abdominal discomfort and low blood counts. Verbalizes/displays acceptable comfort level or baseline comfort level: Abdominal discomfort persisted throughout the shift, but two doses of oxyCODONE- acetaminophen were administered for pain management. Safety/Fall: Absence of fall, injury, harm during hospitalization: No falls or injuries were documented, and safety checks were completed as scheduled during the shift. Achieve optimal cognitive/perceptual/neurological function by discharge or maintain baseline function: Remained alert, oriented, and demonstrated clear speech with no changes in cognitive or neurological status during the shift. Achieve optimal gastrointestinal function by discharge or maintain baseline function: Abdominal discomfort continued and hemoglobin/hematocrit remained low, with no improvement in gastrointestinal status noted during the shift. * Care Plan - Kaylen Tellez RN - 10/22/2024 5:53 PM CDT Shift Summary oxyCODONE-acetaminophen was administered twice for pain management, with comfort maintained throughout the shift. Hemoglobin and hematocrit were found to be low in the morning, and gastrointestinal function remained altered with poor diet tolerance and large stool output later in the day. Safety checks were completed and no falls or injuries occurred, with personal items and call buttonkept within reach. Independent ambulation and mobility were maintained, with no weight-bearing restrictions and mobility promoted throughout the shift. Overall, comfort was maintained, safety precautions were followed, and mobility and gastrointestinal function were supported during the shift. Verbalizes/displays acceptable comfort level or baseline comfort level: Pain was denied at the start of the shift and comfort was maintained after administration of oxyCODONE-acetaminophen, with the patient appearing content and relaxed later in the day. Safety/Fall: Absence of fall, injury, harm during hospitalization: No falls or injuries occurred during the shift, and safety checks were completed with personal items and call button kept within reach. Achieve optimal gastrointestinal function by discharge or maintain baseline function: Bowel function remained altered with large, formed, dark brown stool output and poor diet tolerance noted later in the shift; hemoglobin and hematocrit were low in the morning. Achieve optimal musculoskeletal function by discharge or maintain baseline function: Mobility was promoted and maintained, with independent ambulation and no weight-bearing restrictions throughout the shift. * Care Plan - Trixie Melissa RN - 10/22/2024 5:24 AM CDT Shift Summary Two doses of oxyCODONE-acetaminophen were given for pain management, with pain at rest reported as 6 during the shift. Hemoglobin and hematocrit were found to be low on lab draw during the shift. Vitals remained stable, with SpO2 at 93% and BP at 105/55 at the end of the shift. No abnormal findings were noted in wound, HEENT, or neurovascular assessments, and safety checks were completed without incident. Overall, the patient remained stable with pain managed and no new safety or neurological concerns during the shift. Infection Risk/Actual: Infection prevention, control, or resolution by discharge: No abnormal findings or changes were documented in wound or HEENT assessments, and temperature remained within normallimits throughout the shift. Safety/Fall: Absence of fall, injury, harm during hospitalization: Safety checks were completed at the beginning and end of the shift, and no falls or injuries were documented. * Care Plan - Josie Goss RN - 10/21/2024 5:53 PM CDT Shift Summary Remained independent with transfers and mobility, using the bedside commode without assistance. Passed a small amount of brown stool during the shift. No assistance required for physical activity or transfer skills. No events related to infection, comfort, or cognitive changes were documented during the shift. Maintained independence and stable bowel function during the shift. Safety/Fall: Absence of fall, injury, harm during hospitalization: Remained independent with transfers and was able to get up to the bedside commode without assistance throughout the shift. * Care Plan - Trixie Melissa RN - 10/21/2024 5:05 AM CDT Shift Summary Pain management required multiple interventions, including administration of oxyCODONE-acetaminophen and HYDROmorphone, with only partial improvement in pain scores. cefTRIAXone (ROCEPHIN) 2 g injection was administered and then stopped during the shift. Hemoglobin and hematocrit levels were found to be low during the shift. No falls or injuries occurred, and safety checks were completed regularly. Overall, vital signs and neurovascular assessments remained stable and within documented ranges. Verbalizes/displays acceptable comfort level or baseline comfort level: Pain ratings fluctuated between 7 and 10 throughout the shift, with mild improvement after administration of oxyCODONE-acetaminophen and HYDROmorphone; pain remained at 8 by end of shift. Safety/Fall: Absence of fall, injury, harm during hospitalization: No falls, injuries, or harm documented during the shift; safety checks were completed at regular intervals. Achieve optimal cardiovascular function by discharge or maintain baseline function: Blood pressure,heart rate, and mean arterial pressure remained stable and within similar ranges throughout the shift. Achieve optimal peripheral neurovascular function by discharge or maintain baseline function: Peripheral neurovascular assessments were consistently documented as WDL during the shift. * Care Plan - Pamela Hernandez RN - 10/20/2024 5:07 AM CDT Shift Summary Pain was managed with PRN medications and positioning, resulting in periods of relief throughout the shift. Infection prevention measures were maintained, and antibiotics were administered and discontinued as ordered. High fall risk interventions were consistently implemented, and no falls or injuries occurred. Discharge planning was addressed, with the patient declining bedside medication delivery and caregiver involvement in education. Cognitive and neurological status remained stable, with alertness and orientation maintained throughout the shift. Infection Risk/Actual: Infection prevention, control, or resolution by discharge: cefTRIAXone (ROCEPHIN) was administered and then stopped; WBC and neutrophil counts were elevated on CBC, and safety precautions for aspiration and bleeding were maintained. Safety/Fall: Absence of fall, injury, harm during hospitalization: High fall risk interventions, including low low bed and supervision, were consistently implemented, and no falls or injuries were documented during the shift. * Care Plan - Koko Mendez RN - 10/19/2024 4:42 PM CDT Shift Summary Transfusion of packed red blood cells was performed in the morning to address lower GI hemorrhage. Pain management included both non-pharmacologic and pharmacologic interventions, with periods of comfort achieved after medication administration. Wound remained dry and intact, and temperature stayed within normal limits throughout the shift. Stool output and gastrointestinal symptoms were monitored, with persistent altered bowel function and abdominal discomfort noted. Overall, comfort was intermittently achieved, infection prevention measures were maintained, and gastrointestinal function was closely monitored during the shift. Verbalizes/displays acceptable comfort level or baseline comfort level: Pain was present in the morning and afternoon, with abdominal discomfort and rectal pain noted; pain was managed with positioning, cold application, and a single medication modality, and periods of no pain were documented afterinterventions and medication administration. Infection Risk/Actual: Infection prevention, control, or resolution by discharge: Wound dressing remained dry and intact throughout the shift, and wound documentation was within defined limits; temperature remained within normal range and no abnormal findings were noted in wound assessments. Achieve optimal gastrointestinal function by discharge or maintain baseline function: Stool output was monitored with unformed, brown stool streaked with red noted in the morning; altered bowel function and abdominal discomfort persisted, but eating tolerance was normal later in the shift. * Care Plan - Raiza Freire RN - 10/19/2024 7:28 AM CDT Shift Summary cefTRIAXone (ROCEPHIN) 2 g injection was administered during the shift. HYDROmorphone (PF) was given twice for pain management, with pain increasing in the lower back by morning. Oxygen therapy was started with nasal cannula in the morning after a decrease in SpO2. Bowel movement with moderate output and red streaks was documented, and gastrointestinal monitoringcontinued. Overall, vital signs and skin integrity were maintained, and interventions were provided as needed. Achieve optimal cardiovascular function by discharge or maintain baseline function: Blood pressure and mean arterial pressure fluctuated but remained within a manageable range, while hemoglobin and hematocrit levels decreased overnight; ongoing monitoring and supportive care were provided throughout the shift. Achieve optimal peripheral neurovascular function by discharge or maintain baseline function: Peripheral neurovascular status remained within defined limits during the shift. Achieve optimal respiratory function by discharge and/or maintain baseline function: Oxygen saturation varied, with a decrease noted overnight and nasal cannula initiated in the morning; respiratory interventions such as cough and deep breathing were encouraged. Achieve optimal gastrointestinal function by discharge or maintain baseline function: Bowel movement occurred during the shift with moderate stool output and red streaks noted; gastrointestinal interventions focused on monitoring stool and promoting fluid intake. Maintain skin integrity and/or promote wound healing by discharge: Skin integrity was maintained with no apparent problems, and mobility and repositioning interventions were encouraged. * Care Plan - Evangelina Ch GN - 10/17/2024 5:28 PM CDT Shift Summary Verbalizes/displays acceptable comfort level or baseline comfort level: Comfort was maintained for most of the shift, with pain denied until late afternoon when abdominal pain was reported and HYDROmorphone was administered, after which pain was again denied. Infection Risk/Actual: Infection prevention, control, or resolution by discharge: Vancomycin was administered and safety precautions for aspiration and bleeding were maintained throughout the shift; temperature remained stable and within normal range. Safety/Fall: Absence of fall, injury, harm during hospitalization: High fall risk interventions andsafety checks were completed regularly, and ambulation occurred with assistance and supervision without incident. * Care Plan - Josias Lion RN - 10/17/2024 9:25 AM CDT Care Management Initial Assessment Initial Discharge Planning Assessment completed. Discussed Care Management's role and Discharge planning. Does the patient have family and/or a caregiver that is willing, able and available to assist if needed? Yes - Name/Relation:justus Mcginnis Patient Discharge Planning Goal: get better Patient will potentially discharge to a SNF/NH? No Prior to admission, patient resides at: Apartment. Prior to admission, living arrangements: lives alone. Prior to admission, patient's functional level:independent; uses N/A for mobility; needs assistancewith iADLs: N/A Community Ambulator: yes Prior to admission, the patient has the following DME? N/A Services in the home/community: none Receives hemodialysis? No Emergency contact(s): Extended Emergency Contact Information Primary Emergency Contact: Ras Lagunas Mobile Relation: Son Prescription coverage: yes Preferred Pharmacy verified: [facility] [address] [place] [address] Insurance coverage verified: Payor: flipClass MEDICARE ADVANTAGE / Plan: Kira TalentA HMO SNP MCR / Product Type: HMO / Secondary Insurance:MEDICAID Medicaid Status: no spend down Has VA Benefits: no Employment Status: not employed and disabled DOES receive Disability Income. PCP verified as: Aguila Castro MD Patient has had a stay at an acute care hospital in the last 30 days. Recent Falls?: Plan for transportation at discharge: TBD Care Management contact information provided. Care Management will continue to follow and assist asneeded. * ED Bed Hold Comment Note - Audie Alvarez RN - 10/16/2024 7:49 PM CDT Bed: 21 Expected date: 10/16/24 Expected time: 7:28 PM Means of arrival: Comments: Denis Jamison - documented in this encounter Plan of Treatment Upcoming Encounters Date Type Department Care Team (Late st Contact Info) Description 12/07/2024 7:30 AM CDT Office Visit [facility] G[facility]enterology- [place] [address] [address] [place] [address] Melquiades Ken FNP [address] [facility] [address] [place] [address] Scheduled Referrals Name Type Priority Associated Diagnoses Orde r Schedule AMB REFERRAL TO FAMILY PRACTICE Outpatient Referral Routine Cirrhosis of liver without ascites, unspecified hepatic cirrhosis type (CMS/HCC) Ordered: 10/23/2024 AMB REFERRAL TO GASTROENTEROLOGY Outpatient Referral Routine Gastrointestinal hemorrhage, unspecified gastrointestinal hemorrhage type Cirrhosis of liver without ascites, unspecified hepatic cirrhosis type (CMS/HCC) Ordered: 10/23/2024 AMB REFERRAL TO COLORECTAL SURGERY Outpatient Referral Routine Hemorrhoids, unspecified hemorrhoid type Ordered: 10/23/2024 documented as of this encounter Procedures Procedure Name Priority Date/Time Associated Diagnosis Comments TELEMETRY REPORT 10/25/2024 2:18 PM CDT US ASPIRATION ABDOMEN Routine 10/23/2024 10:27 AM CDT HEMOGLOBIN AND HEMATOCRIT Routine 2024 9:24 AM CDT CBC WITH DIFFERENTIAL Routine 10/23/2024 4:55 AM CDT COMPREHENSIVE METABOLIC PANEL Routine 4:55 AM CDT HEMOGLOBIN AND HEMATOCRIT Routine 2024 10:52 PM CDT POC GLUCOSE Routine 10/22/2024 12:49 PM CDT HEMOGLOBIN AND HEMATOCRIT Routine 2024 9:23 AM CDT CBC WITH DIFFERENTIAL Routine 10/22/2024 5:14 AM CDT COMPREHENSIVE METABOLIC PANEL Routine 5:14 AM CDT HEMOGLOBIN AND HEMATOCRIT Routine 2024 10:15 PM CDT HEMOGLOBIN AND HEMATOCRIT Routine 2024 9:33 AM CDT POC GLUCOSE Routine 10/21/2024 7:55 AM CDT CBC WITH DIFFERENTIAL Routine 10/21/2024 6:11 AM CDT COMPREHENSIVE METABOLIC PANEL Routine 6:11 AM CDT HEMOGLOBIN AND HEMATOCRIT Routine 2024 9:03 PM CDT POC GLUCOSE Routine 10/20/2024 5:03 PM CDT POC GLUCOSE Routine 10/20/2024 12:52 PM CDT HEMOGLOBIN AND HEMATOCRIT Routine 2024 9:17 AM CDT POC GLUCOSE Routine 10/20/2024 8:39 AM CDT CBC WITH DIFFERENTIAL Routine 10/20/2024 3:02 AM CDT COMPREHENSIVE METABOLIC PANEL Routine 3:02 AM CDT HEMOGLOBIN AND HEMATOCRIT Routine 2024 7:38 PM CDT POC GLUCOSE Routine 10/19/2024 4:36 PM CDT POC GLUCOSE Routine 10/19/2024 1:19 PM CDT PATHOLOGY Pathology 10/19/2024 12:41 PM CDT HEMORRHOIDECTOMY 10/19/2024 12:00 PM CDT TRANSFUSE PACKED RED BLOOD CELLS Routine 10/19/2024 9:19 AM CDT POC GLUCOSE Routine 10/19/2024 7:20 AM CDT PREPARE RED BLOOD CELLS Routine 10/20/19 25 6:29 AM CDT PREPARE RED BLOOD CELLS Routine 10/20/19 6:09 AM CDT PREPARE RED BLOOD CELLS Routine 10/20/19 6:09 AM CDT CBC WITH DIFFERENTIAL Routine 10/19/2024 5:52 AM CDT MAGNESIUM LEVEL Routine 10/19/2024 5:52 AM CDT HEMOGLOBIN AND HEMATOCRIT Routine 2024 9:30 PM CDT POC GLUCOSE Routine 10/18/2024 4:21 PM CDT POC GLUCOSE Routine 10/18/2024 11:49 AM CDT CELL COUNT WITH DIFFERENTIAL , BODY FLUID Routine 10/18/2024 10:45 AM CDT CBC WITH DIFFERENTIAL Routine 10/18/2024 7:13 AM CDT C-REACTIVE PROTEIN Routine 10/18/2024 7:13 AM CDT MAGNESIUM LEVEL Routine 10/18/2024 7:13 AM CDT COMPREHENSIVE METABOLIC PANEL Routine 7:13 AM CDT HEMOGLOBIN AND HEMATOCRIT Routine 2024 12:21 AM CDT HEMOGLOBIN AND HEMATOCRIT Routine 2024 4:49 PM CDT COLONOSCOPY REPORT 10/17/2024 12:29 PM CDT PATHOLOGY Pathology 10/17/2024 12:22 PM CDT COLONOSCOPY 10/17/2024 11:00 AM CDT Case Notes 10/17 0740 nurse states that she has drink over half of prep and straight blood coming out. encourage her to finish prep. message sent to nurse - KT TRANSFUSE PACKED RED BLOOD CELLS Routine 10/17/2024 8:42 AM CDT CBC WITH DIFFERENTIAL Routine 10/17/2024 5:56 AM CDT PHOSPHORUS Routine 10/17/2024 5:56 AM CDT MAGNESIUM LEVEL Routine 10/17/2024 5:56 AM CDT COMPREHENSIVE METABOLIC PANEL Routine 5:56 AM CDT GI PATHOGEN PCR PANEL Stat 10/17/2024 3:10 AM CDT HELICOBACTER PYLORI ANTIGEN, STOOL Routine 10/17/2024 3:10 AM CDT HEMOGLOBIN AND HEMATOCRIT Routine 2024 12:37 AM CDT UPPER ENDOSCOPY REPORT 11:13 PM CDT LACTIC ACID Stat 10/16/2024 8:42 PM CDT CBC WITH DIFFERENTIAL Stat 10/16/2024 8:42 PM CDT PTT Stat 10/16/2024 8:42 PM CDT PROTIME-INR Stat 10/16/2024 8:42 PM CDT TYPE AND SCREEN Stat 10/16/2024 8:42 PM CDT MAGNESIUM LEVEL Stat 10/16/2024 8:42 PM CDT COMPREHENSIVE METABOLIC PANEL Stat 8:42 PM CDT PREPARE RED BLOOD CELLS Routine 10/17/19 8:29 PM CDT PREPARE RED BLOOD CELLS Routine 10/17/19 8:29 PM CDT PREPARE RED BLOOD CELLS Routine 10/17/19 8:29 PM CDT PREPARE RED BLOOD CELLS Stat 10/17/19 8:29 PM CDT EKG 12-LEAD Stat 10/16/2024 8:23 PM CDT CRITICAL CARE Routine 10/16/2024 7:49 PM CDT ESOPHAGOGASTRODUODENOSCOPY 10/16 7:00 AM CDT documented in this encounter Results * TELEMETRY REPORT (10/25/2024 2:18 PM CDT) us Provider Scanning ECG ORDERABLES Final Result * US ASPIRATION ABDOMEN (10/23/2024 10:27 AM CDT) Anatomical Region Laterality Modality Abdomen Ultrasound 10/23/2024 10:2 7 AM CDT Impressions 10/23/2024 1:46 PM CDT IMPRESSION: Please see below. Exam: US ASPIRATION ABDOMEN Date/Time of Exam: 10/23/2024 10:27 AM Reason For Exam: Ascites. This procedure was performed and preliminary findings dictated by Cem Becker PA-C. Supervision and final interpretation by Dr. Aleman. Consent: Risks, benefits, and alternatives of the procedure [...] the largest pocket of free fluid. The left lower quadrant was selected. The area was marked, prepped, and draped in the usual sterile fashion. All elements of maximal sterile barrier technique, including hand hygiene and cutaneous antisepsis with an antisepsis agent, were used. Local anesthesia was achieved with 1% lidocaine overlying the proposed needle course. Insertion of a 10-cm 5 Citizen Of [place] Ap[place]aeh centesis catheter, through which approximately 2200 ml of a clear yellow ascites was then drained via wall suction. The centesis catheter was removed in its entirety, the chlorhexidine cleansed from the skin, and a sterile dressing placed. Patient tolerated the procedure well without complication. Estimated Blood Loss: Minimal Narrative Procedure Note Anton Aleman MD - 10/23/2024 IMPRESSION: Please see below. Exam: US ASPIRATION ABDOMEN Date/Time of Exam: 10/23/2024 10:27 AM Reason For Exam: Ascites. This procedure was performed and preliminary findings dictated by Cem Becker PA-C. Supervision and final interpretation by Dr. Aleman. Consent: Risks, benefits, and alternatives of the procedure [...] the largest pocket of free fluid. The left lower quadrant was selected. The area was marked, prepped, and draped in the usual sterile fashion. All elements of maximal sterile barrier technique, including hand hygiene and cutaneous antisepsis with an antisepsis agent, were used. Local anesthesia was achieved with 1% lidocaine overlying the proposed needle course. Insertion of a 10-cm 5 Citizen [place] [employer] centesis catheter, through which approximately 2200 ml of a clear yellow ascites was then drained via wall suction. The centesis catheter was removed in its entirety, the chlorhexidine cleansed from the skin, and a sterile dressing placed. Patient tolerated the procedure well without complication. Estimated Blood Loss: Minimal Jaden Guzmán MD US ORDERABLES Final Result * (ABNORMAL) HEMOGLOBIN AND HEMATOCRIT (10/23/2024 9:24 AM CDT) Pathologist [facility] HEMOGLOBIN 8.1(L) 12.0 - 16.0 g/dL 10/23/2024 9:34 AM CDT [facility] HEMATOCRIT 25.5(L) 36.0 - 46.0 % 10/23/2024 9:34 AM CDT [facility] Blood Venipuncture / Unknown 10/23/2024 9:24 AM CDT 10/23/2024 9:28 AM CDT Crescencio Aguero MD HEMATOLOGY ORDERABLES Final Res ult [facility] CLIA # [id number] [address] [address] [place] [address] * (ABNORMAL) COMPREHENSIVE METABOLIC PANEL (10/23/2024 4:55 AM CDT) SODIUM 135(L) 136 - 145 mmol/L 10/23/2024 6:27 AM T [facility] POTASSIUM 3.9 3.5 - 5.1 mmol/L 10/23/2024 6:27 AM [facility] CHLORIDE 103 98 - 107 mmol/L 10/23/2024 6:27 AM [facility] CO2 22 22 - 29 mmol/L 10/23/2024 6:27 AM [facility] CALCIUM 8.0(L) 8.8 - 10.2 mg/dL 10/23/2024 6:27 AM [facility] BUN 8 8 - 23 mg/dL 10/23/2024 6:27 AM [facility] CREATININE 0.71 0.51 - 0.95 mg/dL 10/23/2024 6:27 AM [facility] GLUCOSE 103(H) 74 - 99 mg/dL 10/23/2024 6:27 AM [facility] TOTAL PROTEIN 5.1(L) 6.4 - 8.3 g/dL 10/23/2024 6:27 AM [facility] ALBUMIN 3.0(L) 3.5 - 5.2 g/dL 10/23/2024 6:27 AM [facility] BILIRUBIN TOTAL 0.4 0.0 - 1.0 mg/dL 10/23/2024 6:27 AM [facility] ALKALINE PHOSPHATASE 82 35 - 104 U/L 10/23/2024 6:27 AM [facility] AST 24 10 - 35 U/L 10/23/2024 6:27 AM [facility] ALT 18 <=35 U/L 10/23/2024 6:27 AM T [facility] GFR >60 >=60 mL/min/1.7 3 sq meter 10/23/2024 6:27 AM T [facility] Comment:eGFR calculated with 2020 CKD-EPI equation. Vegetarian diet, extremely high or low muscle mass, and may affect results. Cystatin C with Glomerular Filtration Rate is a suitable alternative for these patients. ANION GAP 10 9 - 20 mmol/L 10/23/2024 6:27 AM T [facility] Blood Venipuncture / Unknown 10/23/2024 4:55 AM CDT 10/23/2024 5:54 AM CDT us Jaden Guzmán MD CHEMISTRY ORDERABLES Final Resul t [facility] CLIA # [id number] [address] [place] [address] * (ABNORMAL) CBC WITH DIFFERENTIAL (10/23/2024 4:55 AM CDT) [facility] WBC 6.2 4.8 - 10.8 K/uL 10/23/2024 5:51 AM [facility] NRBCS 3(H) <1 % 10/23/2024 5:51 AM [facility] RBC 2.79(L) 4.20 - 5.40 M/uL 10/23/2024 5:51 AM T [facility] HEMOGLOBIN 7.7(L) 12.0 - 16.0 g/dL 10/23/2024 5:51 AM [facility] HEMATOCRIT 24.1(L) 36.0 - 46.0 % 10/23/2024 5:51 AM [facility] MCV 86.4 84.0 - 103.0 fL 10/23/2024 5:51 AM T [facility] MCH 27.6 27.0 - 34.0 pg 10/23/2024 5:51 AM [facility] MCHC 32.0 30.0 - 35.0 g/dL 10/23/2024 5:51 AM [facility] PLATELETS 241 140 - 440 K/uL 10/23/2024 5:51 AM [facility] MPV 11.1 8.9 - 12.8 fL 10/23/2024 5:51 AM [facility] [employer] [facility] RDW 17.2(H) 11.0 - 14.5 % 10/23/2024 5:51 AM [facility] [employer] [facility] RDW-STDEV 53.6 37.0 - 54.0 fL 10/23/2024 5:51 AM [facility] NEUTROPHILS 70 42 - 75 % 10/23/2024 5:51 AM [facility] LYMPHOCYTES 12(L) 24 - 44 % 10/23/2024 5:51 AM [facility] [employer] [facility] MONOCYTES 17(H) 2 - 10 % 10/23/2024 5:51 AM [facility] [employer] [facility] EOSINOPHILS 1 0 - 7 % 10/23/2024 5:51 AM [facility] [employer] [facility] BASOPHILS 0 0 - 1 % 10/23/2024 5:51 AM [facility] IMMATURE GRANULOCYTES 1 0 - 2 % 10/23/2024 5:51 AM [facility] NEUTROPHIL ABSOLUTE 4.34 2.00 - 8.00 K/uL 10/23/2024 5:51 AM [facility] LYMPHOCYTE ABSOLUTE 0.75(L) 1.20 - 4.00 K/uL 10/23/2024 5:51 AM [facility] MONOCYTE ABSOLUTE 1.04(H) 0.10 - 0.60 K/uL 10/23/2024 5:51 AM [facility] EOSINOPHIL ABSOLUTE 0.05 0.00 - 0.70 K/uL 10/23/2024 5:51 AM [facility] BASOPHILS ABSOLUTE 0.02 0.00 - 0.20 K/uL 10/23/2024 5:51 AM CDT [facility] IMMATURE GRANULOCYTES ABSOLUTE 0.03 0.00 - 0.10 K/uL 10/23/2024 5:51 AM CDT [facility] SMEAR REVIEWED: NN - No Action Needed 10/23/2024 5:51 AM CDT [facility] Blood Venipuncture / Unknown 10/23/2024 4:55 AM CDT 10/23/2024 5:42 AM CDT Crescencio Aguero MD HEMATOLOGY ORDERABLES Final Res ult Performing Organization Address City/[facility]/ZIP Co de Phone Number [facility] CLIA # [id number] [address] [id number] * (ABNORMAL) HEMOGLOBIN AND HEMATOCRIT (10/22/2024 10:52 PM CDT) HEMOGLOBIN 7.5(L) 12.0 - 16.0 g/dL 10/22/2024 11:01 PM CDT [facility] HEMATOCRIT 22.7(L) 36.0 - 46.0 % 10/22/2024 11:01 PM CDT [facility] Blood Venipuncture / Unknown 10/22/2024 10:52 PM CDT 10/22/2024 10:56 PM CDT Crescencio Aguero MD HEMATOLOGY ORDERABLES Final Res ult [facility] CLIA # [id number] [address] [address] * POC GLUCOSE (10/22/2024 12:49 PM CDT) GLUCOSE POC 93 74 - 99 mg/dL 10/22/2024 12:49 PM CDT [facility] SPECIMEN SOURCE, GLUCOSE POC Capillary 10/22/2024 12:49 PM CDT [facility] Blood, whole 10/22/2024 12:4 9 PM CDT 10/22/2024 1:02 PM CDT us Jaden Guzmán MD POINT OF CARE TESTING Final Resu lt Performing Organization Address [facility] Co de Phone Number [facility] CLIA # [id number] [address] [address] * (ABNORMAL) HEMOGLOBIN AND HEMATOCRIT (10/22/2024 9:23 AM CDT) [facility] HEMOGLOBIN 7.8(L) 12.0 - 16.0 g/dL 10/22/2024 9:35 AM CDT [facility] HEMATOCRIT 24.8(L) 36.0 - 46.0 % 10/22/2024 9:35 AM CDT [facility] Blood Venipuncture / Unknown 10/22/2024 9:23 AM CDT 10/22/2024 9:27 AM CDT us Crescencio Aguero MD HEMATOLOGY ORDERABLES Final Res ult Performing Organization Address [facility] Co de Phone Number [facility] CLIA # [id number] [facility] [address] * (ABNORMAL) COMPREHENSIVE METABOLIC PANEL (10/22/2024 5:14 AM CDT) Pathologist [facility] SODIUM 137 136 - 145 mmol/L 10/22/2024 6:30 AM CDT [facility] POTASSIUM 3.8 3.5 - 5.1 mmol/L 10/22/2024 6:30 AM CDT [facility] CHLORIDE 105 98 - 107 mmol/L 10/22/2024 6:30 AM CDT [facility] CO2 24 22 - 29 mmol/L 10/22/2024 6:30 AM [facility] CALCIUM 8.1(L) 8.8 - 10.2 mg/dL 10/22/2024 6:30 AM [facility] BUN 7(L) 8 - 23 mg/dL 10/22/2024 6:30 AM [facility] CREATININE 0.74 0.51 - 0.95 mg/dL 10/22/2024 6:30 AM [facility] GLUCOSE 96 74 - 99 mg/dL 10/22/2024 6:30 AM [facility] TOTAL PROTEIN 5.1(L) 6.4 - 8.3 g/dL 10/22/2024 6:30 AM [facility] ALBUMIN 3.1(L) 3.5 - 5.2 g/dL 10/22/2024 6:30 AM [facility] BILIRUBIN TOTAL 0.4 0.0 - 1.0 mg/dL 10/22/2024 6:30 AM [facility] ALKALINE PHOSPHATASE 77 35 - 104 U/L 10/22/2024 6:30 AM [facility] AST 23 10 - 35 U/L 10/22/2024 6:30 AM [facility] ALT 17 <=35 U/L 10/22/2024 6:30 AM [facility] GFR >60 >=60 mL/min/1.7 3 sq meter 10/22/2024 6:30 AM [facility] Comment:eGFR calculated with 2020 CKD-EPI equation. Vegetarian diet, extremely high or low muscle mass, and may affect results. Cystatin C with Glomerular Filtration Rate is a suitable alternative for these patients. ANION GAP 8(L) 9 - 20 mmol/L 10/22/2024 6:30 AM [facility] Blood Venipuncture / Unknown 10/22/2024 5:14 AM CDT 10/22/2024 5:47 AM T us Jaden Guzmán MD CHEMISTRY ORDERABLES Final Resul t [facility] ROSE # [id number] [address] [address] [place] [address] * (ABNORMAL) CBC WITH DIFFERENTIAL (10/22/2024 5:14 AM CDT) [facility] WBC 6.1 4.8 - 10.8 K/uL 10/22/2024 5:58 AM CDT [facility] NRBCS 2(H) <1 % 10/22/2024 5:58 AM CDT [facility] RBC 2.60(L) 4.20 - 5.40 M/uL 10/22/2024 5:58 AM CDT [facility] HEMOGLOBIN 7.2(L) 12.0 - 16.0 g/dL 10/22/2024 5:58 AM CDT [facility] HEMATOCRIT 22.4(L) 36.0 - 46.0 % 10/22/2024 5:58 AM CDT [facility] MCV 86.2 84.0 - 103.0 fL 10/22/2024 5:58 AM CDT [facility] MCH 27.7 27.0 - 34.0 pg 10/22/2024 5:58 AM CDT [facility] MCHC 32.1 30.0 - 35.0 g/dL 10/22/2024 5:58 AM CDT [facility] PLATELETS 219 140 - 440 K/uL 10/22/2024 5:58 AM CDT [facility] MPV 11.0 8.9 - 12.8 fL 10/22/2024 5:58 AM CDT [facility] RDW 17.1(H) 11.0 - 14.5 % 10/22/2024 5:58 AM CDT [facility] RDW-STDEV 53.0 37.0 - 54.0 fL 10/22/2024 5:58 AM CDT [facility] NEUTROPHILS 65 42 - 75 % 10/22/2024 5:58 AM CDT [facility] LYMPHOCYTES 17(L) 24 - 44 % 10/22/2024 5:58 AM CDT [facility] MONOCYTES 17(H) 2 - 10 % 10/22/2024 5:58 AM CDT [facility] EOSINOPHILS 0 0 - 7 % 10/22/2024 5:58 AM CDT [facility] BASOPHILS 1 0 - 1 % 10/22/2024 5:58 AM CDT [facility] IMMATURE GRANULOCYTES 0 0 - 2 % 10/22/2024 5:58 AM CDT [facility] NEUTROPHIL ABSOLUTE 4.00 2.00 - 8.00 K/uL 10/22/2024 5:58 AM CDT [facility] LYMPHOCYTE ABSOLUTE 1.03(L) 1.20 - 4.00 K/uL 10/22/2024 5:58 AM CDT [facility] MONOCYTE ABSOLUTE 1.03(H) 0.10 - 0.60 K/uL 10/22/2024 5:58 AM CDT [facility] EOSINOPHIL ABSOLUTE 0.02 0.00 - 0.70 K/uL 10/22/2024 5:58 AM CDT [facility] BASOPHILS ABSOLUTE 0.03 0.00 - 0.20 K/uL 10/22/2024 5:58 AM CDT [facility] IMMATURE GRANULOCYTES ABSOLUTE 0.02 0.00 - 0.10 K/uL 10/22/2024 5:58 AM CDT [facility] SMEAR REVIEWED: NN - No Action Needed 10/22/2024 5:58 AM CDT [facility] Blood Venipuncture / Unknown 10/22/2024 5:14 AM CDT 10/22/2024 5:44 AM CDT us Crescencio Aguero MD HEMATOLOGY ORDERABLES Final Res ult [facility] CLIA # [id number] [address] [facility] [place] [address] * (ABNORMAL) HEMOGLOBIN AND HEMATOCRIT (10/21/2024 10:15 PM CDT) HEMOGLOBIN 7.3(L) 12.0 - 16.0 g/dL 10/21/2024 10:38 PM CDT [facility] HEMATOCRIT 22.8(L) 36.0 - 46.0 % 10/21/2024 10:38 PM CDT [facility] Blood Venipuncture / Unknown 10/21/2024 10:15 PM CDT 10/21/2024 10:34 PM CDT Crescencio Aguero MD HEMATOLOGY ORDERABLES Final Res ult Performing Organization Address [facility] Co de Phone Number [facility] CLIA # [id number] [address] [address] [place] [address] * (ABNORMAL) HEMOGLOBIN AND HEMATOCRIT (10/21/2024 9:33 AM CDT) [facility] HEMOGLOBIN 7.4(L) 12.0 - 16.0 g/dL 10/21/2024 9:47 AM CDT [facility] HEMATOCRIT 22.5(L) 36.0 - 46.0 % 10/21/2024 9:47 AM CDT [facility] Blood Venipuncture / Unknown 10/21/2024 9:33 AM CDT 10/21/2024 9:45 AM CDT Crescencio Aguero MD HEMATOLOGY ORDERABLES Final Res ult [facility] CLIA # [id number] [address] [place] [address] * (ABNORMAL) POC GLUCOSE (10/21/2024 7:55 AM CDT) GLUCOSE POC 100(H) 74 - 99 mg/dL 10/21/2024 7:55 AM CDT [facility] SPECIMEN SOURCE, GLUCOSE POC Capillary 10/21/2024 7:55 AM T [facility] Blood, whole 10/21/2024 7:55 AM CDT 10/21/2024 8:04 AM CDT us Jaden Guzmán MD POINT OF CARE TESTING Final Resu lt [facility] CLIA # [id number] [address] [place] [address] * (ABNORMAL) COMPREHENSIVE METABOLIC PANEL (10/21/2024 6:11 AM CDT) Pathologist [facility] SODIUM 136 136 - 145 mmol/L 10/21/2024 7:07 AM [facility] POTASSIUM 3.8 3.5 - 5.1 mmol/L 10/21/2024 7:07 AM [facility] CHLORIDE 104 98 - 107 mmol/L 10/21/2024 7:07 AM [facility] CO2 24 22 - 29 mmol/L 10/21/2024 7:07 AM [facility] CALCIUM 8.3(L) 8.8 - 10.2 mg/dL 10/21/2024 7:07 AM T [facility] BUN 6(L) 8 - 23 mg/dL 10/21/2024 7:07 AM [facility] CREATININE 0.83 0.51 - 0.95 mg/dL 10/21/2024 7:07 AM [facility] GLUCOSE 104(H) 74 - 99 mg/dL 10/21/2024 7:07 AM [facility] TOTAL PROTEIN 5.3(L) 6.4 - 8.3 g/dL 10/21/2024 7:07 AM CDT [facility] ALBUMIN 3.3(L) 3.5 - 5.2 g/dL 10/21/2024 7:07 AM T [facility] BILIRUBIN TOTAL 0.3 0.0 - 1.0 mg/dL 10/21/2024 7:07 AM T [facility] ALKALINE PHOSPHATASE 76 35 - 104 U/L 10/21/2024 7:07 AM [facility] AST 24 10 - 35 U/L 10/21/2024 7:07 AM T [facility] ALT 19 <=35 U/L 10/21/2024 7:07 AM [facility] GFR >60 >=60 mL/min/1.7 3 sq meter 10/21/2024 7:07 AM [facility] Comment:eGFR calculated with 2020 CKD-EPI equation. Vegetarian diet, extremely high or low muscle mass, and may affect results. Cystatin C with Glomerular Filtration Rate is a suitable alternative for these patients. ANION GAP 8(L) 9 - 20 mmol/L 10/21/2024 7:07 AM [facility] Blood Venipuncture / Unknown 10/21/2024 6:11 AM CDT 10/21/2024 6:25 AM CDT us Jaden Guzmán MD CHEMISTRY ORDERABLES Final Resul t [facility] CLIA # [id number] [address] [place] [address] * (ABNORMAL) CBC WITH DIFFERENTIAL (10/21/2024 6:11 AM CDT) Pathologist [facility] WBC 8.8 4.8 - 10.8 K/uL 10/21/2024 6:36 AM T [facility] NRBCS 2(H) <1 % 10/21/2024 6:36 AM T [facility] RBC 2.75(L) 4.20 - 5.40 M/uL 10/21/2024 6:36 AM [facility] HEMOGLOBIN 7.8(L) 12.0 - 16.0 g/dL 10/21/2024 6:36 AM [facility] HEMATOCRIT 23.7(L) 36.0 - 46.0 % 10/21/2024 6:36 AM [facility] MCV 86.2 84.0 - 103.0 fL 10/21/2024 6:36 AM [facility] MCH 28.4 27.0 - 34.0 pg 10/21/2024 6:36 AM [facility] MCHC 32.9 30.0 - 35.0 g/dL 10/21/2024 6:36 AM [facility] PLATELETS 229 140 - 440 K/uL 10/21/2024 6:36 AM [facility] MPV 11.2 8.9 - 12.8 fL 10/21/2024 6:36 AM [facility] RDW 17.2(H) 11.0 - 14.5 % 10/21/2024 6:36 AM [facility] RDW-STDEV 53.2 37.0 - 54.0 fL 10/21/2024 6:36 AM [facility] NEUTROPHILS 71 42 - 75 % 10/21/2024 6:36 AM [facility] LYMPHOCYTES 13(L) 24 - 44 % 10/21/2024 6:36 AM [facility] MONOCYTES 15(H) 2 - 10 % 10/21/2024 6:36 AM [facility] EOSINOPHILS 0 0 - 7 % 10/21/2024 6:36 AM [facility] BASOPHILS 0 0 - 1 % 10/21/2024 6:36 AM [facility] IMMATURE GRANULOCYTES 1 0 - 2 % 10/21/2024 6:36 AM [facility] NEUTROPHIL ABSOLUTE 6.26 2.00 - 8.00 K/uL 10/21/2024 6:36 AM CDT [facility] LYMPHOCYTE ABSOLUTE 1.16(L) 1.20 - 4.00 K/uL 10/21/2024 6:36 AM CDT [facility] MONOCYTE ABSOLUTE 1.31(H) 0.10 - 0.60 K/uL 10/21/2024 6:36 AM CDT [facility] EOSINOPHIL ABSOLUTE 0.01 0.00 - 0.70 K/uL 10/21/2024 6:36 AM CDT [facility] BASOPHILS ABSOLUTE 0.03 0.00 - 0.20 K/uL 10/21/2024 6:36 AM CDT [facility] IMMATURE GRANULOCYTES ABSOLUTE 0.05 0.00 - 0.10 K/uL 10/21/2024 6:36 AM CDT [facility] SMEAR REVIEWED: NN - No Action Needed 10/21/2024 6:36 AM CDT [facility] Blood Venipuncture / Unknown 10/21/2024 6:11 AM CDT 10/21/2024 6:24 AM CDT Crescencio Aguero MD HEMATOLOGY ORDERABLES Final Res ult [facility] CLIA # [id number] [address] [place] [id number] * (ABNORMAL) HEMOGLOBIN AND HEMATOCRIT (10/20/2024 9:03 PM CDT) [facility] HEMOGLOBIN 7.6(L) 12.0 - 16.0 g/dL 10/20/2024 9:15 PM CDT [facility] HEMATOCRIT 23.3(L) 36.0 - 46.0 % 10/20/2024 9:15 PM CDT [facility] Blood Venipuncture / Unknown 10/20/2024 9:03 PM CDT 10/20/2024 9:11 PM CDT us Crescencio Aguero MD HEMATOLOGY ORDERABLES Final Res ult Performing Organization Address [facility]/ZIP Co de Phone Number [facility] CLIA # [id number] [address] [place], [place] [address] * (ABNORMAL) POC GLUCOSE (10/20/2024 5:03 PM CDT) GLUCOSE POC 163(H) 74 - 99 mg/dL 10/20/2024 5:03 PM CDT [facility] SPECIMEN SOURCE, GLUCOSE POC Capillary 10/20/2024 5:03 PM CDT [facility] Blood, whole 10/20/2024 5:03 PM CDT 10/20/2024 5:19 PM CDT us Jaden Guzmán MD POINT OF CARE TESTING Final Resu lt Performing Organization Address [facility] Co de Phone Number [facility] CLIA # [id number] [address] [place], [place] [address] * (ABNORMAL) POC GLUCOSE (10/20/2024 12:52 PM CDT) GLUCOSE POC 131(H) 74 - 99 mg/dL 10/20/2024 12:52 PM CDT [facility] SPECIMEN SOURCE, GLUCOSE POC Capillary 10/20/2024 12:52 PM CDT [facility] Blood, whole 10/20/2024 12:5 2 PM CDT 10/20/2024 1:00 PM CDT Jaden Guzmán MD POINT OF CARE TESTING Final Resu lt Performing Organization Address [facility]/ZIP Co de Phone Number [facility] CLIA # [id number] [address] [place], [place] [address] * (ABNORMAL) HEMOGLOBIN AND HEMATOCRIT (10/20/2024 9:17 AM CDT) HEMOGLOBIN 7.9(L) 12.0 - 16.0 g/dL 10/20/2024 9:49 AM CDT [facility] HEMATOCRIT 23.8(L) 36.0 - 46.0 % 10/20/2024 9:49 AM CDT [facility] Blood Venipuncture / Unknown 10/20/2024 9:17 AM CDT 10/20/2024 9:39 AM CDT us Crescencio Aguero MD HEMATOLOGY ORDERABLES Final Res ult Performing Organization Address [facility]/ZIP Co de Phone Number [facility] CLIA # [id number] [address] [address] * (ABNORMAL) POC GLUCOSE (10/20/2024 8:39 AM CDT) Pathologist [facility] GLUCOSE POC 121(H) 74 - 99 mg/dL 10/20/2024 8:39 AM CDT [facility] SPECIMEN SOURCE, GLUCOSE POC Capillary 10/20/2024 8:39 AM CDT [facility] Blood, whole 10/20/2024 8:39 AM CDT 10/20/2024 8:47 AM CDT us Jaden Guzmán MD POINT OF CARE TESTING Final Resu lt Performing Organization Address City/[facility]/ZIP Co de Phone Number [facility] CLIA # [id number] [address] [address] * (ABNORMAL) COMPREHENSIVE METABOLIC PANEL (10/20/2024 3:02 AM CDT) SODIUM 134(L) 136 - 145 mmol/L 10/20/2024 3:58 AM [facility] POTASSIUM 4.1 3.5 - 5.1 mmol/L 10/20/2024 3:58 AM [facility] CHLORIDE 102 98 - 107 mmol/L 10/20/2024 3:58 AM [facility] CO2 22 22 - 29 mmol/L 10/20/2024 3:58 AM [facility] CALCIUM 8.1(L) 8.8 - 10.2 mg/dL 10/20/2024 3:58 AM [facility] BUN 7(L) 8 - 23 mg/dL 10/20/2024 3:58 AM [facility] CREATININE 0.78 0.51 - 0.95 mg/dL 10/20/2024 3:58 AM [facility] GLUCOSE 113(H) 74 - 99 mg/dL 10/20/2024 3:58 AM [facility] TOTAL PROTEIN 5.6(L) 6.4 - 8.3 g/dL 10/20/2024 3:58 AM [facility] ALBUMIN 3.4(L) 3.5 - 5.2 g/dL 10/20/2024 3:58 AM [facility] BILIRUBIN TOTAL 0.4 0.0 - 1.0 mg/dL 10/20/2024 3:58 AM [facility] ALKALINE PHOSPHATASE 75 35 - 104 U/L 10/20/2024 3:58 AM [facility] AST 23 10 - 35 U/L 10/20/2024 3:58 AM [facility] ALT 17 <=35 U/L 10/20/2024 3:58 AM [facility] GFR >60 >=60 mL/min/1.7 3 sq meter 10/20/2024 3:58 AM [facility] Comment:eGFR calculated with 2020 CKD-EPI equation. Vegetarian diet, extremely high or low muscle mass, and may affect results. Cystatin C with Glomerular Filtration Rate is a suitable alternative for these patients. ANION GAP 10 9 - 20 mmol/L 10/20/2024 3:58 AM CDT [facility] Blood Venipuncture / Unknown 10/20/2024 3:02 AM CDT 10/20/2024 3:23 AM CDT us Jaden Guzmán MD CHEMISTRY ORDERABLES Final Resul t [facility] CLIA # [id number] [facility] [address] [place] [address] * (ABNORMAL) CBC WITH DIFFERENTIAL (10/20/2024 3:02 AM CDT) Pathologist [facility] WBC 13.7(H) 4.8 - 10.8 K/uL 10/20/2024 3:24 AM CDT [facility] NRBCS 1(H) <1 % 10/20/2024 3:24 AM CDT [facility] RBC 2.92(L) 4.20 - 5.40 M/uL 10/20/2024 3:24 AM CDT [facility] HEMOGLOBIN 8.2(L) 12.0 - 16.0 g/dL 10/20/2024 3:24 AM CDT [facility] HEMATOCRIT 24.8(L) 36.0 - 46.0 % 10/20/2024 3:24 AM CDT [facility] MCV 84.9 84.0 - 103.0 fL 10/20/2024 3:24 AM CDT [facility] MCH 28.1 27.0 - 34.0 pg 10/20/2024 3:24 AM CDT [facility] MCHC 33.1 30.0 - 35.0 g/dL 10/20/2024 3:24 AM CDT [facility] PLATELETS 240 140 - 440 K/uL 10/20/2024 3:24 AM CDT [facility] MPV 11.3 8.9 - 12.8 fL 10/20/2024 3:24 AM [facility] RDW 17.0(H) 11.0 - 14.5 % 10/20/2024 3:24 AM [facility] RDW-STDEV 51.3 37.0 - 54.0 fL 10/20/2024 3:24 AM [facility] NEUTROPHILS 69 42 - 75 % 10/20/2024 3:24 AM [facility] LYMPHOCYTES 13(L) 24 - 44 % 10/20/2024 3:24 AM [facility] MONOCYTES 17(H) 2 - 10 % 10/20/2024 3:24 AM [facility] EOSINOPHILS 0 0 - 7 % 10/20/2024 3:24 AM [facility] BASOPHILS 0 0 - 1 % 10/20/2024 3:24 AM [facility] IMMATURE GRANULOCYTES 1 0 - 2 % 10/20/2024 3:24 AM [facility] NEUTROPHIL ABSOLUTE 9.51(H) 2.00 - 8.00 K/uL 10/20/2024 3:24 AM [facility] LYMPHOCYTE ABSOLUTE 1.79 1.20 - 4.00 K/uL 10/20/2024 3:24 AM [facility] MONOCYTE ABSOLUTE 2.27(H) 0.10 - 0.60 K/uL 10/20/2024 3:24 AM [facility] EOSINOPHIL ABSOLUTE 0.01 0.00 - 0.70 K/uL 10/20/2024 3:24 AM [facility] BASOPHILS ABSOLUTE 0.03 0.00 - 0.20 K/uL 10/20/2024 3:24 AM [facility] IMMATURE GRANULOCYTES ABSOLUTE 0.10 0.00 - 0.10 K/uL 10/20/2024 3:24 AM [facility] SMEAR REVIEWED: NA - Not Applicable 10/20/2024 3:24 AM [facility] Blood Venipuncture / Unknown 10/20/2024 3:02 AM CDT 10/20/2024 3:15 AM CDT Crescencio Aguero MD HEMATOLOGY ORDERABLES Final Res ult Performing Organization Address [facility]/ZIP Co de Phone Number [facility] CLIA # [id number] [address] [address] * (ABNORMAL) HEMOGLOBIN AND HEMATOCRIT (10/19/2024 7:38 PM CDT) [facility] HEMOGLOBIN 7.8(L) 12.0 - 16.0 g/dL 10/19/2024 7:55 PM CDT [facility] HEMATOCRIT 23.5(L) 36.0 - 46.0 % 10/19/2024 7:55 PM CDT [facility] Blood Venipuncture / Unknown 10/19/2024 7:38 PM CDT 10/19/2024 7:47 PM CDT Crescencio Aguero MD HEMATOLOGY ORDERABLES Final Res ult Performing Organization Address City/[facility]/ZIP Co de Phone Number [facility] CLIA # [id number] [facility] [address] [address] * (ABNORMAL) POC GLUCOSE (10/19/2024 4:36 PM CDT) Pathologist [facility] GLUCOSE POC 146(H) 74 - 99 mg/dL 10/19/2024 4:36 PM CDT [facility] SPECIMEN SOURCE, GLUCOSE POC Capillary 10/19/2024 4:36 PM CDT [facility] COMMENT, GLU POC Alerted Nurse/CHARLA/DR 10/19/2024 4:36 PM CDT [facility] Blood, whole 10/19/2024 4:36 PM CDT 10/19/2024 4:52 PM CDT Jaden Guzmán MD POINT OF CARE TESTING Final Resu lt Performing Organization Address [facility] Co de Phone Number [facility] CLIA # [id number] [address] [id number] * TRANSFUSE RED BLOOD CELLS (10/19/2024 1:19 PM CDT) Jaden Guzmán MD BLOOD TRANSFUSION ORDERABLES Fin al Result * TRANSFUSE RED BLOOD CELLS (10/19/2024 1:19 PM CDT) Jaden Guzmán MD BLOOD TRANSFUSION ORDERABLES Fin al Result * (ABNORMAL) POC GLUCOSE (10/19/2024 1:19 PM CDT) GLUCOSE POC 119(H) 74 - 99 mg/dL 10/19/2024 1:19 PM CDT [facility] SPECIMEN SOURCE, GLUCOSE POC Capillary 10/19/2024 1:19 PM CDT [facility] Blood, whole 10/19/2024 1:19 PM CDT 10/19/2024 1:30 PM CDT Jaden Guzmán MD POINT OF CARE TESTING Final Resu lt Performing Organization Address [facility] Co de Phone Number [facility] CLIA # [id number] [address] [address] * PATHOLOGY (10/19/2024 12:41 PM CDT) CASE REPORT Surgical Pathology Report Case: [id number] Authorizing Provider: Crescencio Aguero MD Collected: 10/19/2024 12:41 PM Ordering Location: [facility] Received: 10/19/2024 01:44 PM Operating Room Pathologist: Murray Fernández MD Specimen: Hemorrhoids 3:38 PM CDT [facility] FINAL DIAGNOSIS A. Hemorrhoids, excision - Hemorrhoids - Negative for dysplasia or malignancy Murray Fernández MD [id number] 3:38 PM CDT [facility] at 1538 CDT GROSS DESCRIPTION A. Received in a container of formalin labeled Main -hemorrhoids are 3 lopez-topete, wrinkled skin fragments, that range from 1.5 to 2.3 cm in greatest dimension. Sectioning reveals hemorrhagic, mildly edematous cut surfaces. No discrete masses or lesions are grossly identified. Ski Lift Attendant sections are submitted in A1. Grossed by: Kita Hobbs MS, PA (ASCP)CM 3:38 PM CDT [facility] OPERATIVE PROCEDURE 1: HEMORRHOIDECTOMY 3:38 PM CDT [facility] COMMENT The [employer] voice-activated dictation system may have been used [...] determined by the Diagnostic Immunohist[facility] Laboratory of [facility] in compliance with CLIA'88 regulations. Some of these tests rely on the use of analyte specific reagents and are subject to specific labeling requirements by the FDA. All controls show appropriate reactivity. This testing was developed by the Diagnostic [facility]ohist[facility] Laboratory of [facility]. It has not been cleared or approved by the FDA. The FDA has determined that such clearance or approval is not necessary. 3:38 PM CDT [facility] Tissue (Hemorrhoids) Collection / Unknown 10/19/2024 12:41 PM CDT 10/19/2024 1:44 PM CDT us Crescencio Aguero MD PATHOLOGY/CYTOLOGY ORDERABLES F inal Result [facility] CLIA # [id number] [id number] [place] [address] * (ABNORMAL) POC GLUCOSE (10/19/2024 7:20 AM CDT) Pathologist [facility] GLUCOSE POC 111(H) 74 - 99 mg/dL 10/19/2024 7:20 AM CDT [facility] SPECIMEN SOURCE, GLUCOSE POC Capillary 10/19/2024 7:20 AM CDT [facility] Blood, whole 10/19/2024 7:20 AM CDT 10/19/2024 7:56 AM CDT rUi Rojas MD POINT OF CARE TESTING [facility] al Result Performing Organization Address City/[facility]/ZIP Co de Phone Number [facility] [place] CLIA # [id number] [address] [address] * PREPARE RED BLOOD CELLS (10/19/2024 6:29 AM CDT) [facility] COMPONENT TYPE [id number] [facility] [place] COMPONENT IDENTIFICATION [id number] [facility] [place] UNIT ABO O [facility] [place] [facility] RH NEG [facility] [place] CROSSMATCH Compatible [facility] [place] COMPONENT STATUS Transfused [facility] [place] COMPONENT EXPIRATION DATE/TIME [id number] [facility] [place] COMPONENT CODING SYSTEM [address] [facility] [place] VOLUME, BLOOD PRODUCT 350 [facility] [place] 10/19/2024 6:29 AM CDT Andrey Tanner MD LAB TRANSFUSION ORDERAB LES Edited Result - Final [facility] [place] CLIA#[id number] [address] [place] [address], * PREPARE RED BLOOD CELLS (10/19/2024 6:09 AM CDT) COMPONENT TYPE [id number] [facility] [place] COMPONENT IDENTIFICATION [id number] [facility] [place] UNIT ABO O [facility] [place] UNIT RH NEG [facility] [place] CROSSMATCH Compatible [facility] [place] COMPONENT STATUS Returned [facility] [place] COMPONENT EXPIRATION DATE/TIME [id number] [facility] [place] COMPONENT CODING SYSTEM [address] [facility] [place] VOLUME, BLOOD PRODUCT 350 [facility] [place] Other, specify 10/19/2024 6: 09 AM CDT Andrey Tanner MD LAB TRANSFUSION ORDERAB LES Edited Result - Final [facility] [place] CLIA#[id number] [address] [place] [address], * PREPARE RED BLOOD CELLS (10/19/2024 6:09 AM CDT) COMPONENT TYPE [id number] [facility] [place] COMPONENT IDENTIFICATION [id number] [facility] [facility] -- [place] [facility] ABO O [facility] LABORATORY SERVICES -- [place] [facility] RH NEG [facility] LABORATORY SERVICES -- [place] CROSSMATCH Compatible [facility] LABORATORY SERVICES [facility] [place] COMPONENT STATUS Returned [facility] CY LABORATORY SERVICES -- [place] COMP[place]ENT EXPIRATION DATE/TIME [id number] [facility] LABOR[facility]ORY SERVICES -- [place] COMPONENT CODING SYSTEM 9500 [facility] LABORATORY SERVICES -- [place] VOLUME, BLOOD PRODUCT 350 [facility] LABORATORY SERVICES -- [place] Other, specify 10/19/2024 6: 09 AM CDT Crescencio Aguero MD LAB TRANSFUSION ORDERABLES Edit ed Result - Final [facility] CLIA#[id number] [facility] [place] [address], * (ABNORMAL) CBC WITH DIFFERENTIAL (10/19/2024 5:52 AM CDT) [facility] WBC 7.7 4.8 - 10.8 K/uL 10/19/2024 6:12 AM CDT [facility] NRBCS 1(H) <1 % 10/19/2024 6:12 AM CDT [facility] RBC 2.38(L) 4.20 - 5.40 M/uL 10/19/2024 6:12 AM T [facility] HEMOGLOBIN 6.7(LL) 12.0 - 16.0 g/dL 10/19/2024 6:12 AM T [facility] HEMATOCRIT 20.3(L) 36.0 - 46.0 % 10/19/2024 6:12 AM T [facility] MCV 85.3 84.0 - 103.0 fL 10/19/2024 6:12 AM T [facility] MCH 28.2 27.0 - 34.0 pg 10/19/2024 6:12 AM T [facility] MCHC 33.0 30.0 - 35.0 g/dL 10/19/2024 6:12 AM T [facility] PLATELETS 174 140 - 440 K/uL 10/19/2024 6:12 AM T [facility] MPV 10.8 8.9 - 12.8 fL 10/19/2024 6:12 AM T [facility] RDW 17.1(H) 11.0 - 14.5 % 10/19/2024 6:12 AM T [facility] RDW-STDEV 51.4 37.0 - 54.0 fL 10/19/2024 6:12 AM T [facility] NEUTROPHILS 67 42 - 75 % 10/19/2024 6:12 AM CDT [facility] LYMPHOCYTES 12(L) 24 - 44 % 10/19/2024 6:12 AM CDT [facility] MONOCYTES 20(H) 2 - 10 % 10/19/2024 6:12 AM CDT [facility] EOSINOPHILS 0 0 - 7 % 10/19/2024 6:12 AM CDT [facility] BASOPHILS 0 0 - 1 % 10/19/2024 6:12 AM CDT [facility] IMMATURE GRANULOCYTES 1 0 - 2 % 10/19/2024 6:12 AM CDT [facility] NEUTROPHIL ABSOLUTE 5.12 2.00 - 8.00 K/uL 10/19/2024 6:12 AM CDT [facility] LYMPHOCYTE ABSOLUTE 0.91(L) 1.20 - 4.00 K/uL 10/19/2024 6:12 AM CDT [facility] MONOCYTE ABSOLUTE 1.55(H) 0.10 - 0.60 K/uL 10/19/2024 6:12 AM CDT [facility] EOSINOPHIL ABSOLUTE 0.01 0.00 - 0.70 K/uL 10/19/2024 6:12 AM CDT [facility] BASOPHILS ABSOLUTE 0.03 0.00 - 0.20 K/uL 10/19/2024 6:12 AM CDT [facility] IMMATURE GRANULOCYTES ABSOLUTE 0.05 0.00 - 0.10 K/uL 10/19/2024 6:12 AM CDT [facility] SMEAR REVIEWED: NA - Not Applicable 10/19/2024 6:12 AM T [facility] Blood Venipuncture / Unknown 10/19/2024 5:52 AM CDT 10/19/2024 6:03 AM CDT us Crescencio Aguero MD HEMATOLOGY ORDERABLES Final Res ult [facility] CLIA # [id number] [address] [address] [place] [address] * MAGNESIUM LEVEL (10/19/2024 5:52 AM CDT) [facility] MAGNESIUM 2.2 1.6 - 2.4 mg/dL 10/19/2024 6:41 AM CDT [facility] Blood Venipuncture / Unknown 10/19/2024 5:52 AM CDT 10/19/2024 6:03 AM CDT Jeb Alvarez III, DO CHEMISTRY ORDERABLES Zaida l Result Performing Organization Address [facility] de Phone Number [facility] CLIA # [id number] [address] [id number] * (ABNORMAL) HEMOGLOBIN AND HEMATOCRIT (10/18/2024 9:30 PM CDT) [facility] HEMOGLOBIN 7.0(L) 12.0 - 16.0 g/dL 10/18/2024 9:58 PM CDT [facility] HEMATOCRIT 21.2(L) 36.0 - 46.0 % 10/18/2024 9:58 PM CDT [facility] Blood Venipuncture / Unknown 10/18/2024 9:30 PM CDT 10/18/2024 9:49 PM CDT Crescencio Aguero MD HEMATOLOGY ORDERABLES Final Res ult Performing Organization Address [facility] de Phone Number [facility] CLIA # [id number] [facility] [address] * (ABNORMAL) POC GLUCOSE (10/18/2024 4:21 PM CDT) [facility] GLUCOSE POC 109(H) 74 - 99 mg/dL 10/18/2024 4:21 PM CDT [facility] SPECIMEN SOURCE, GLUCOSE POC Capillary 10/18/2024 4:21 PM CDT [facility] Blood, whole 10/18/2024 4:21 PM CDT 10/18/2024 4:29 PM CDT Uri Rojas MD POINT OF CARE TESTING Fin al Result Performing Organization Address [facility] Co de Phone Number [facility] CLIA # [id number] [address] [address] [place], [place] [address] * (ABNORMAL) POC GLUCOSE (10/18/2024 11:49 AM CDT) [facility] GLUCOSE POC 124(H) 74 - 99 mg/dL 10/18/2024 11:49 AM CDT [facility] SPECIMEN SOURCE, GLUCOSE POC Capillary 10/18/2024 11:49 AM CDT [facility] Blood, whole 10/18/2024 11:4 9 AM CDT 10/18/2024 12:00 PM CDT us Jeb Alvarez III, DO POINT OF CARE TESTING Fin al Result Performing Organization Address [facility] Co de Phone Number [facility] CLIA # [id number] [address] [address] * CELL COUNT WITH DIFFERENTIAL, BODY FLUID (10/18/2024 10:45 AM CDT) Pathologist [facility] APPEARANCE, BODY FLUID Clear 10/18/2024 11:34 AM CDT [facility] COLOR, FLD Colorless 10/18/2024 11:34 AM CDT [facility] TOTAL NUCLEATED CELLS, FLD (AUTO) 81 No Ref Range Estab /ul 10/18/2024 11:34 AM CDT [facility] TOTAL RBC'S, FLD (AUTO) <3,000 No Ref Range Estab /ul 10/18/2024 11:34 AM CDT [facility] NEUTROPHILS, FLD 10 No Ref Range Estab % 10/18/2024 11:34 AM CDT [facility] LYMPHOCYTE, FLD 26 No Ref Range Estab % 10/18/2024 11:34 AM CDT [facility] MONOCYTE/MACROP HUI, FLD 62 No Ref Range Estab % 10/18/2024 11:34 AM CDT [facility] MESOTHELIAL FLD 3 No Ref Range Estab % 10/18/2024 11:34 AM CDT [facility] Body fluid ENTIRE SEROUS MEMBRANE OF PERITONEUM / Unknown Collection / Unknown 10/18/2024 10:45 AM CDT 10/18/2024 10:49 AM CDT Jeb O Alvarez III, DO BODY FLUIDS AND STOOLS Fi nal Result Performing Organization Address [facility] Co de Phone Number [facility] CLIA # [id number] [facility] [address] * (ABNORMAL) C-REACTIVE PROTEIN (10/18/2024 7:13 AM CDT) CRP 10.6(H) 0.0 - 5.0 mg/L 10/18/2024 11:08 AM CDT [facility] Blood Venipuncture / Unknown 10/18/2024 7:13 AM CDT 10/18/2024 7:19 AM CDT [employer] O Alvarez III, DO CHEMISTRY ORDERABLES Zaida l Result Performing Organization Address [facility] Co de Phone Number [facility] CLIA # [id number] [facility] [address] * (ABNORMAL) CBC WITH DIFFERENTIAL (10/18/2024 7:13 AM CDT) WBC 9.7 4.8 - 10.8 K/uL 10/18/2024 7:22 AM [facility] NRBCS 1(H) <1 % 10/18/2024 7:22 AM [facility] RBC 2.85(L) 4.20 - 5.40 M/uL 10/18/2024 7:22 AM [facility] HEMOGLOBIN 8.0(L) 12.0 - 16.0 g/dL 10/18/2024 7:22 AM [facility] HEMATOCRIT 23.8(L) 36.0 - 46.0 % 10/18/2024 7:22 AM [facility] MCV 83.5(L) 84.0 - 103.0 fL 10/18/2024 7:22 AM [facility] MCH 28.1 27.0 - 34.0 pg 10/18/2024 7:22 AM [facility] MCHC 33.6 30.0 - 35.0 g/dL 10/18/2024 7:22 AM [facility] PLATELETS 207 140 - 440 K/uL 10/18/2024 7:22 AM [facility] MPV 11.9 8.9 - 12.8 fL 10/18/2024 7:22 AM [facility] RDW 16.6(H) 11.0 - 14.5 % 10/18/2024 7:22 AM [facility] RDW-STDEV 50.0 37.0 - 54.0 fL 10/18/2024 7:22 AM [facility] NEUTROPHILS 72 42 - 75 % 10/18/2024 7:22 AM [facility] LYMPHOCYTES 13(L) 24 - 44 % 10/18/2024 7:22 AM [facility] MONOCYTES 15(H) 2 - 10 % 10/18/2024 7:22 AM [facility] EOSINOPHILS 0 0 - 7 % 10/18/2024 7:22 AM [facility] BASOPHILS 0 0 - 1 % 10/18/2024 7:22 AM [facility] IMMATURE GRANULOCYTES 1 0 - 2 % 10/18/2024 7:22 AM CDT [facility] NEUTROPHIL ABSOLUTE 6.97 2.00 - 8.00 K/uL 10/18/2024 7:22 AM CDT [facility] LYMPHOCYTE ABSOLUTE 1.21 1.20 - 4.00 K/uL 10/18/2024 7:22 AM CDT [facility] MONOCYTE ABSOLUTE 1.40(H) 0.10 - 0.60 K/uL 10/18/2024 7:22 AM CDT [facility] EOSINOPHIL ABSOLUTE 0.01 0.00 - 0.70 K/uL 10/18/2024 7:22 AM CDT [facility] BASOPHILS ABSOLUTE 0.03 0.00 - 0.20 K/uL 10/18/2024 7:22 AM CDT [facility] IMMATURE GRANULOCYTES ABSOLUTE 0.06 0.00 - 0.10 K/uL 10/18/2024 7:22 AM CDT [facility] SMEAR REVIEWED: NA - Not Applicable 10/18/2024 7:22 AM CDT [facility] Blood Venipuncture / Unknown 10/18/2024 7:13 AM CDT 10/18/2024 7:19 AM CDT Crescencio Aguero MD HEMATOLOGY ORDERABLES Final Res ult [facility] # [id number] [address] [place] [address] * MAGNESIUM LEVEL (10/18/2024 7:13 AM CDT) Pathologist [facility] MAGNESIUM 2.3 1.6 - 2.4 mg/dL 10/18/2024 7:53 AM CDT [facility] Blood Venipuncture / Unknown 10/18/2024 7:13 AM CDT 10/18/2024 7:19 AM CDT us Jeb Alvarez III, DO CHEMISTRY ORDERABLES Zaida l Result [facility] ROSE # [id number] [facility] [address] [place] [address] * (ABNORMAL) COMPREHENSIVE METABOLIC PANEL (10/18/2024 7:13 AM CDT) SODIUM 133(L) 136 - 145 mmol/L 10/18/2024 7:53 AM CDT [facility] POTASSIUM 3.4(L) 3.5 - 5.1 mmol/L 10/18/2024 7:53 AM CDT [facility] CHLORIDE 101 98 - 107 mmol/L 10/18/2024 7:53 AM CDT [facility] CO2 23 22 - 29 mmol/L 10/18/2024 7:53 AM CDT [facility] CALCIUM 7.6(L) 8.8 - 10.2 mg/dL 10/18/2024 7:53 AM T [facility] BUN 14 8 - 23 mg/dL 10/18/2024 7:53 AM T [facility] CREATININE 0.94 0.51 - 0.95 mg/dL 10/18/2024 7:53 AM T [facility] GLUCOSE 182(H) 74 - 99 mg/dL 10/18/2024 7:53 AM T [facility] TOTAL PROTEIN 5.0(L) 6.4 - 8.3 g/dL 10/18/2024 7:53 AM T [facility] ALBUMIN 3.3(L) 3.5 - 5.2 g/dL 10/18/2024 7:53 AM CDT [facility] BILIRUBIN TOTAL 0.3 0.0 - 1.0 mg/dL 10/18/2024 7:53 AM CDT [facility] ALKALINE PHOSPHATASE 54 35 - 104 U/L 10/18/2024 7:53 AM T [facility] AST 18 10 - 35 U/L 10/18/2024 7:53 AM CDT [facility] ALT 14 <=35 U/L 10/18/2024 7:53 AM CDT [facility] GFR >60 >=60 mL/min/1.7 3 sq meter 10/18/2024 7:53 AM CDT [facility] Comment:eGFR calculated with 2020 CKD-EPI equation. Vegetarian diet, extremely high or low muscle mass, and may affect results. Cystatin C with Glomerular Filtration Rate is a suitable alternative for these patients. ANION GAP 9 9 - 20 mmol/L 10/18/2024 7:53 AM CDT [facility] Blood Venipuncture / Unknown 10/18/2024 7:13 AM CDT 10/18/2024 7:19 AM CDT us Cassie CALVERT CHEMISTRY ORDERABLES Final Resu lt Performing Organization Address [facility] Co de Phone Number [facility] CLIA # [id number] [address] [address] * (ABNORMAL) HEMOGLOBIN AND HEMATOCRIT (10/18/2024 12:21 AM CDT) [facility] HEMOGLOBIN 8.0(L) 12.0 - 16.0 g/dL 10/18/2024 12:27 AM CDT [facility] HEMATOCRIT 23.1(L) 36.0 - 46.0 % 10/18/2024 12:27 AM CDT [facility] Blood Venipuncture / Unknown 10/18/2024 12:21 AM CDT 10/18/2024 12:25 AM CDT Cassie CALVERT HEMATOLOGY ORDERABLES Final Res ult Performing Organization Address City/[facility]/ZIP Co de Phone Number [facility] CLIA # [id number] [address] [address] * (ABNORMAL) HEMOGLOBIN AND HEMATOCRIT (10/17/2024 4:49 PM CDT) HEMOGLOBIN 8.2(L) 12.0 - 16.0 g/dL 10/17/2024 5:10 PM CDT [facility] HEMATOCRIT 24.3(L) 36.0 - 46.0 % 10/17/2024 5:10 PM CDT [facility] Blood Venipuncture / Unknown 10/17/2024 4:49 PM CDT 10/17/2024 4:59 PM CDT us Cassie CALVERT HEMATOLOGY ORDERABLES Final Res ult [facility] CLIA # [id number] [address] [place] [address] * COLONOSCOPY REPORT (10/17/2024 12:29 PM CDT) Narrative Procedure Note Julianne David DO - 10/17/2024 12:28 PM CDT [facility] GI Patient Name: Viry Quach Procedure Date: 10/17/2024 Date of : 1965 Admit Type: Inpatient Age: 59 Attending MD: Julianne Milner DO, Procedure: Colonoscopy Indications: Hematochezia Providers: Julianne Milner DO Referring MD: Medicines: Propofol per Anesthesia Complications: No immediate complications. Procedure: Pre-Anesthesia Assessment: - The anesthesia plan was to use monitored anesthesia care (MAC). - Prior to the procedure, a History [...] satisfactory condition to undergo the procedure. After I obtained informed consent, the scope [...] The quality of the bowel preparation was excellent. Estimated Blood Loss: Estimated blood loss was minimal. Findings: The perianal and digital rectal examinations were normal. Four large patchy angiodysplastic lesions without bleeding were found in the ascending colon and in the cecum. Coagulation for bleeding prevention using argon plasma was successful. A 5 mm polyp was found in the cecum. The polyp was sessile. The polyp was removed with a cold snare. Resection and retrieval were complete. A 3 mm polyp was found in the sigmoid colon. The polyp was sessile. The polyp was removed with a cold snare. Resection and retrieval were complete. External and internal hemorrhoids were found during retroflexion. The hemorrhoids were large. Impression: - Four non-bleeding colonic angiodysplastic lesions. Treated with argon plasma coagulation (APC). - One 5 mm polyp in the cecum, removed with a cold snare. Resected and retrieved. - One 3 mm polyp in the sigmoid colon, removed with a cold snare. Resected and retrieved. - External and internal hemorrhoids. Recommendation: Resume regular diet monitor for recurrence of bleeding until tomorrow Julianne Milner DO 10/17/2024 12:28:48 PM This report has been signed electronically. Number of Addenda: 0 Note Initiated On: 10/17/2024 12:02 PM Scope Withdrawal Time 0 hours 7 minutes 15 seconds Scope In: 12:16:19 PM Scope Out: 12:25:42 PM Patient Profile: This is a 59 year old female. [address] [place], [place] Julianne Milner DO GI PROCEDURE ORDERABLE S Final Result * PATHOLOGY (10/17/2024 12:22 PM CDT) CASE REPORT Surgical Pathology Report Case: [id number] Authorizing Provider: Umair Davidela, Collected: 10/17/2024 12:22 PM DO Ordering Location: [facility] Received: 10/17/2024 01:47 PM Endoscopy Pathologist: Tamia Wolff MD Specimens: A) - Colon, cecum, polyp B) - Colon, sigmoid, polyp 10:44 AM CDT [facility] FINAL DIAGNOSIS A. Colon, cecum, polyp - Adenomatous polyp / B. Colon, sigmoid, polyp - Adenomatous polyp Tamia Wolff MD [id number] 10:44 AM CDT [facility] at 1044 CDT GROSS DESCRIPTION A. Received in formalin labeled Main -cecum polyp are multiple fragments of tissue, 1.0 x 0.5 x 0.1 cm in aggregate. The specimen is submitted in toto in A1. B. Received in formalin labeled Main -sigmoid colon polyp is a 0.5 cm (greatest dimension) fragment of tissue. The specimen is submitted in toto in B1. Grossed by: Nuiba Gentile MS, PA ([facility]) 10:44 AM CDT [facility] OPERATIVE PROCEDURE 1: COLONOSCOPY 10:44 AM CDT [facility] CLINICAL INFORMATION None provided 10:44 AM CDT [facility] COMMENT The [employer] voice-activated dictation system may have been used [...] determined by the Diagnostic Immunohistochemistry Laboratory of [facility] in compliance with CLIA'88 regulations. Some of these tests rely on the use of analyte specific reagents and are subject to specific labeling requirements by the FDA. All controls show appropriate reactivity. This testing was developed by the Diagnostic Immunohistochemistry Laboratory of [facility]. It has not been cleared or approved by the FDA. The FDA has determined that such clearance or approval is not necessary. 10:44 AM CDT [facility] Tissue SPECIMEN FROM COLON / Unknown Collection / Unknown 10/17/2024 12:22 PM CDT 10/17/2024 1:47 PM CDT Comment:Verified by TB/Aguila Rinaldi MD Tissue specimen (specimen) SIGMOID COLON STRUCTURE / Unknown 10/17/2024 12:25 PM CDT 10/17/2024 1:47 PM CDT Comment:Verified by TB/Aguila Rinaldi MD Julianne Milner DO PATHOLOGY/CYTOLOGY ORD ERABLES Final Result Performing Organization Address City/[facility]/ZIP Co de Phone Number [facility] CLIA # [id number] [address] [id number] [place] [address] * TRANSFUSE RED BLOOD CELLS (10/17/2024 11:01 AM CDT) Jonathan Sampson MD BLOOD TRANSFUSION ORDERABLES Fi nal Result * TRANSFUSE RED BLOOD CELLS (10/17/2024 11:01 AM CDT) Jonathan Sampson MD BLOOD TRANSFUSION ORDERABLES Fi nal Result * PHOSPHORUS (10/17/2024 5:56 AM CDT) PHOSPHORUS 3.6 2.5 - 4.5 mg/dL 10/17/2024 7:44 AM CDT [facility] Blood Venipuncture / Unknown 10/17/2024 5:56 AM CDT 10/17/2024 6:05 AM CDT Jonathan Sampson MD CHEMISTRY ORDERABLES Final Resu lt Performing Organization Address City/[facility]/ZIP Co de Phone Number [facility] CLIA # [id number] [address] [address] * MAGNESIUM LEVEL (10/17/2024 5:56 AM CDT) [facility] MAGNESIUM 1.9 1.6 - 2.4 mg/dL 10/17/2024 7:44 AM CDT [facility] Blood Venipuncture / Unknown 10/17/2024 5:56 AM CDT 10/17/2024 6:05 AM CDT us Jonathan Sampson MD CHEMISTRY ORDERABLES Final Resu lt [facility] CLIA # [id number] [address] [place] [address] * (ABNORMAL) CBC WITH DIFFERENTIAL (10/17/2024 5:56 AM CDT) [facility] WBC 14.2(H) 4.8 - 10.8 K/uL 10/17/2024 6:15 AM CDT [facility] NRBCS 1(H) <1 % 10/17/2024 6:15 AM CDT [facility] RBC 2.58(L) 4.20 - 5.40 M/uL 10/17/2024 6:15 AM CDT [facility] HEMOGLOBIN 7.2(L) 12.0 - 16.0 g/dL 10/17/2024 6:15 AM CDT [facility] HEMATOCRIT 21.3(L) 36.0 - 46.0 % 10/17/2024 6:15 AM CDT [facility] MCV 82.6(L) 84.0 - 103.0 fL 10/17/2024 6:15 AM CDT [facility] MCH 27.9 27.0 - 34.0 pg 10/17/2024 6:15 AM CDT [facility] MCHC 33.8 30.0 - 35.0 g/dL 10/17/2024 6:15 AM [facility] PLATELETS 253 140 - 440 K/uL 10/17/2024 6:15 AM [facility] MPV 11.7 8.9 - 12.8 fL 10/17/2024 6:15 AM [facility] RDW 17.4(H) 11.0 - 14.5 % 10/17/2024 6:15 AM [facility] RDW-STDEV 51.3 37.0 - 54.0 fL 10/17/2024 6:15 AM [facility] NEUTROPHILS 63 42 - 75 % 10/17/2024 6:15 AM [facility] LYMPHOCYTES 22(L) 24 - 44 % 10/17/2024 6:15 AM [facility] MONOCYTES 14(H) 2 - 10 % 10/17/2024 6:15 AM [facility] EOSINOPHILS 0 0 - 7 % 10/17/2024 6:15 AM [facility] BASOPHILS 0 0 - 1 % 10/17/2024 6:15 AM [facility] IMMATURE GRANULOCYTES 1 0 - 2 % 10/17/2024 6:15 AM [facility] NEUTROPHIL ABSOLUTE 8.96(H) 2.00 - 8.00 K/uL 10/17/2024 6:15 AM [facility] LYMPHOCYTE ABSOLUTE 3.09 1.20 - 4.00 K/uL 10/17/2024 6:15 AM [facility] MONOCYTE ABSOLUTE 1.99(H) 0.10 - 0.60 K/uL 10/17/2024 6:15 AM [facility] EOSINOPHIL ABSOLUTE 0.01 0.00 - 0.70 K/uL 10/17/2024 6:15 AM [facility] BASOPHILS ABSOLUTE 0.05 0.00 - 0.20 K/uL 10/17/2024 6:15 AM [facility] IMMATURE GRANULOCYTES ABSOLUTE 0.11(H) 0.00 - 0.10 K/uL 10/17/2024 6:15 AM CDT [facility] SMEAR REVIEWED: NA - Not Applicable 10/17/2024 6:15 AM T [facility] Blood Venipuncture / Unknown 10/17/2024 5:56 AM CDT 10/17/2024 6:04 AM CDT us Crescencio Aguero MD HEMATOLOGY ORDERABLES Final Res ult [facility] CLIA # [id number] [address] [place] [id number] * (ABNORMAL) COMPREHENSIVE METABOLIC PANEL (10/17/2024 5:56 AM CDT) SODIUM 132(L) 136 - 145 mmol/L 10/17/2024 6:40 AM [facility] POTASSIUM 3.9 3.5 - 5.1 mmol/L 10/17/2024 6:40 AM [facility] CHLORIDE 100 98 - 107 mmol/L 10/17/2024 6:40 AM [facility] CO2 21(L) 22 - 29 mmol/L 10/17/2024 6:40 AM [facility] CALCIUM 7.8(L) 8.8 - 10.2 mg/dL 10/17/2024 6:40 AM [facility] BUN 18 8 - 23 mg/dL 10/17/2024 6:40 AM [facility] CREATININE 1.10(H) 0.51 - 0.95 mg/dL 10/17/2024 6:40 AM T [facility] GLUCOSE 141(H) 74 - 99 mg/dL 10/17/2024 6:40 AM [facility] TOTAL PROTEIN 5.2(L) 6.4 - 8.3 g/dL 10/17/2024 6:40 AM [facility] ALBUMIN 3.1(L) 3.5 - 5.2 g/dL 10/17/2024 6:40 AM CDT [facility] BILIRUBIN TOTAL 0.4 0.0 - 1.0 mg/dL 10/17/2024 6:40 AM CDT [facility] ALKALINE PHOSPHATASE 54 35 - 104 U/L 10/17/2024 6:40 AM CDT [facility] AST 17 10 - 35 U/L 10/17/2024 6:40 AM CDT [facility] ALT 15 <=35 U/L 10/17/2024 6:40 AM CDT [facility] GFR 58(L) >=60 mL/min/1. 73 sq meter 10/17/2024 6:40 AM CDT [facility] Comment:eGFR calculated with 2020 CKD-EPI equation. Vegetarian diet, extremely high or low muscle mass, and may affect results. Cystatin C with Glomerular Filtration Rate is a suitable alternative for these patients. ANION GAP 11 9 - 20 mmol/L 10/17/2024 6:40 AM CDT [facility] Blood Venipuncture / Unknown 10/17/2024 5:56 AM CDT 10/17/2024 6:05 AM CDT us Cassie CALVERT CHEMISTRY ORDERABLES Final Resu lt [facility] # [id number] [address] [place] [address] * HELICOBACTER PYLORI ANTIGEN, STOOL (10/17/2024 3:10 AM CDT) H. PYLORI AG, STOOL SEE COMMENT 10/19/2024 12:37 PM CDT [facility] Comment: HELICOBACTER PYLORI AG, EIA, STOOL Micro Number: [id number] Test Status: Final Specimen Source: Stool Specimen Quality: Adequate H.pylori Ag: Not Detected Antimicrobials, proton pump inhibitors, and bismuth preparations inhibit H. pylori and ingestion up to two weeks prior to testing may cause false negative results. If clinically indicated the test should be repeated on a new specimen obtained two weeks after discontinuing treatment. Reference Range: Not Detected Stool STOOL SPECIMEN / Unknown Collection / Unknown 10/17/2024 3:10 AM CDT 10/17/2024 3:19 AM CDT Narrative [facility] - 10/19/2024 12:37 PM CDT Performing Organization Information: Site ID: Name: [facility] Address: [address] [place] [address] Director: Kiko Grimes us Mayo Taylor MD BODY FLUIDS AND STOOLS Fi nal Result [facility] [place] * GI PATHOGEN PCR PANEL (10/17/2024 3:10 AM CDT) [facility] GI Pathogen PCR panel NOT DETECTED No nucleic acids detected. 10/17/2024 4:45 AM CDT [facility] [employer] [facility] Stool STOOL SPECIMEN / Unknown Collection / Unknown 10/17/2024 3:10 AM CDT 10/17/2024 3:19 AM CDT [facility] [employer] [facility] - 10/17/2024 4:45 AM CDT [facility] GI Panel [...] Cryptosporidium Cyclospora cayetanensis Entamoeba histolytica Giardia duodenalis us Je Garnett MD MICROBIOLOGY - NERAL ORDERABLES Final Result [facility] CLIA # [id number] [address] [address] * (ABNORMAL) HEMOGLOBIN AND HEMATOCRIT (10/17/2024 12:37 AM CDT) HEMOGLOBIN 7.6(L) 12.0 - 16.0 g/dL 10/17/2024 12:58 AM CDT [facility] HEMATOCRIT 22.2(L) 36.0 - 46.0 % 10/17/2024 12:58 AM CDT [facility] Blood Venipuncture / Unknown 10/17/2024 12:37 AM CDT 10/17/2024 12:52 AM CDT us Cassie CALVERT HEMATOLOGY ORDERABLES Final Res ult [facility] CLIA # [id number] [facility] [address] * UPPER ENDOSCOPY REPORT (10/16/2024 11:13 PM CDT) Narrative Procedure Note Mayo Taylor MD - 10/16/2024 11:12 PM CDT [facility] GI Patient Name: Viry Quach Procedure Date: 10/16/2024 Date of : 1965 Admit Type: Inpatient Age: 59 Attending MD: Mayo Taylor MD, Procedure: Upper GI endoscopy Indications: Gastrointestinal bleeding Providers: Mayo Taylor MD Referring MD: Medicines: Fentanyl and Versed in incremental dosages Complications: No immediate complications. Procedure: Pre-Anesthesia Assessment: - Prior to the procedure, a History and Physical was performed, and patient medications, allergies and sensitivities were reviewed. The patient's tolerance of previous anesthesia was reviewed. - The risks and benefits of the procedure and the sedation options and risks were discussed with the patient. All questions were answered and informed consent was obtained. After obtaining informed consent, the endoscope was passed under direct vision. Throughout the procedure, the patient's blood pressure, pulse, and oxygen saturations were monitored continuously. The Endoscope was introduced through the mouth, and advanced to the second part of duodenum. Estimated Blood Loss: Estimated blood loss: none. Estimated blood loss was minimal. Findings: There was no active bleeding or old blood in the upper intestine. There were small esophageal varices without high risk stigmata in the lower third of the esophagus, they were left undisturbed. There was nonbleeding portal hypertensive gastropathy. There were multiple clean-based ulcers in the second portion of the duodenum at the probable site of recent APC, and scattered punctate ectasias that were not actively bleeding, these were left undisturbed Impression: Clean-based ulcers in duodenum, likely secondary to recent APC treatment, left undisturbed Small esophageal varices without high risk stigmata for bleeding, left undisturbed - Punctate non-bleeding ectasias in the stomach left undisturbed Portal hypertensive gastropathy, not actively bleeding Recommendation: Prep for colonoscopy - Avoid NSAIDs - Continue twice daily PPI for 8 weeks Continue to monitor hemoglobin and transfuse for hemoglobin less than 7 Mayo Taylor MD 10/16/2024 11:12:46 PM Number of Addenda: 0 Note Initiated On: 10/16/2024 10:27 PM Scope Withdrawal Time Scope In: Scope Out: [address] [place], [place] Mayo Taylor MD GI PROCEDURE ORDERABLES F inal Result * TYPE AND SCREEN (10/16/2024 8:42 PM CDT) ABO GROUP O 10/16/2024 9:37 PM CDT [facility] [place] RH (D) TYPE Negative 10/16/2024 9:37 PM CDT [facility] [place] ANTIBODY SCREEN Negative 10/16/2024 9:37 PM CDT [facility] [place] Blood Venipuncture / Unknown 10/16/2024 8:42 PM CDT 10/16/2024 8:51 PM CDT us Je Garnett MD BLOOD BANK ORDERA BLES Edited Result - Final [facility] CLIA#[id number] [address] [place] [address], * MAGNESIUM LEVEL (10/16/2024 8:42 PM CDT) [facility] MAGNESIUM 2.0 1.6 - 2.4 mg/dL 10/16/2024 9:31 PM CDT [facility] Blood Venipuncture / Unknown 10/16/2024 8:42 PM CDT 10/16/2024 8:54 PM CDT us Je Garnett MD CHEMISTRY ORDERAB LES Final Result Performing Organization Address City/[facility] Co de Phone Number [facility] CLIA # [id number] [address] [address] * LACTIC ACID (10/16/2024 8:42 PM CDT) [facility] LACTIC ACID 1.6 <=2.0 mmol/L 10/16/2024 9:57 PM CDT [facility] Blood BLOOD SPECIMEN / Unknown Venipuncture / Unknown 10/16/2024 8:42 PM CDT 10/16/2024 8:52 PM CDT us Je Garnett MD CHEMISTRY ORDERAB LES Final Result [facility] CLIA # [id number] [address] [address] * (ABNORMAL) COMPREHENSIVE METABOLIC PANEL (10/16/2024 8:42 PM CDT) [facility] SODIUM 132(L) 136 - 145 mmol/L 10/16/2024 9:31 PM [facility] POTASSIUM 3.9 3.5 - 5.1 mmol/L 10/16/2024 9:31 PM [facility] CHLORIDE 101 98 - 107 mmol/L 10/16/2024 9:31 PM [facility] CO2 21(L) 22 - 29 mmol/L 10/16/2024 9:31 PM [facility] CALCIUM 8.1(L) 8.8 - 10.2 mg/dL 10/16/2024 9:31 PM [facility] BUN 18 8 - 23 mg/dL 10/16/2024 9:31 PM [facility] CREATININE 1.12(H) 0.51 - 0.95 mg/dL 10/16/2024 9:31 PM [facility] GLUCOSE 119(H) 74 - 99 mg/dL 10/16/2024 9:31 PM [facility] TOTAL PROTEIN 5.5(L) 6.4 - 8.3 g/dL 10/16/2024 9:31 PM [facility] ALBUMIN 3.4(L) 3.5 - 5.2 g/dL 10/16/2024 9:31 PM [facility] BILIRUBIN TOTAL 0.8 0.0 - 1.0 mg/dL 10/16/2024 9:31 PM [facility] ALKALINE PHOSPHATASE 59 35 - 104 U/L 10/16/2024 9:31 PM [facility] AST 18 10 - 35 U/L 10/16/2024 9:31 PM [facility] ALT 17 <=35 U/L 10/16/2024 9:31 PM [facility] GFR 56(L) >=60 mL/min/1. 73 sq meter 10/16/2024 9:31 PM [facility] Comment:eGFR calculated with 2020 CKD-EPI equation. Vegetarian diet, extremely high or low muscle mass, and may affect results. Cystatin C with Glomerular Filtration Rate is a suitable alternative for these patients. ANION GAP 10 9 - 20 mmol/L 10/16/2024 9:31 PM CDT [facility] Blood Venipuncture / Unknown 10/16/2024 8:42 PM CDT 10/16/2024 8:54 PM CDT Je Garnett MD CHEMISTRY ORDERAB LES Final Result Performing Organization Address [facility] Co de Phone Number [facility] CLIA # [id number] [address] [address] [place] [address] * PTT (10/16/2024 8:42 PM CDT) PTT 27.6 24.8 - 37.2 seconds 10/16/2024 9:37 PM CDT [facility] Blood Venipuncture / Unknown 10/16/2024 8:42 PM CDT 10/16/2024 8:54 PM CDT Narrative [facility] - 10/16/2024 9:37 PM CDT Therapeutic Range: Hi-level PE/DVT heparin protocol 80.1 - 95.0 sec Lo-level PE/DVT heparin protocol 70.1 - 85.0 sec Cardiac Heparin Protocol 70.1 - 100.0 sec Je Garnett MD HEMATOLOGY ORDERA BLES Final Result Performing Organization Address [facility] Co de Phone Number [facility] CLIA # [id number] [address] [address] * (ABNORMAL) PROTIME-INR (10/16/2024 8:42 PM CDT) PROTIME 15.9(H) 12.7 - 14.9 Seconds 10/16/2024 9:37 PM CDT [facility] INR 1.2 0.8 - 1.2 10/16/2024 9:37 PM CDT [facility] Blood Venipuncture / Unknown 10/16/2024 8:42 PM CDT 10/16/2024 8:54 PM CDT [facility] - 10/16/2024 9:37 PM CDT Expected Values for INR: DVT/PE Goal INR 2.5; range 2.0 - 3.0 Valve Replacement Tissue Goal INR 2.5; range 2.0 - 3.0 Valve Replacement Mechanical Goal INR 3.0; range 2.5 - 3.5 POST-DC Goal INR 2.5; range 2.0 - 3.0 or Goal INR 3.0; range 2.5 - 3.5 Atrial Fibrillation Goal INR 2.5; range 2.0 - 3.0 Ischemic Stroke Goal INR 2.5; range 2.0 - 3.0 us Je Garnett MD HEMATOLOGY ORDERA BLES Final Result [facility] CLIA # [id number] [address] [place] [address] * (ABNORMAL) CBC WITH DIFFERENTIAL (10/16/2024 8:42 PM CDT) Pathologist [facility] WBC 15.5(H) 4.8 - 10.8 K/uL 10/16/2024 9:12 PM CDT [facility] RBC 3.07(L) 4.20 - 5.40 M/uL 10/16/2024 9:12 PM CDT [facility] HEMOGLOBIN 8.4(L) 12.0 - 16.0 g/dL 10/16/2024 9:12 PM CDT [facility] HEMATOCRIT 25.2(L) 36.0 - 46.0 % 10/16/2024 9:12 PM CDT [facility] MCV 82.1(L) 84.0 - 103.0 fL 10/16/2024 9:12 PM [facility] MCH 27.4 27.0 - 34.0 pg 10/16/2024 9:12 PM [facility] MCHC 33.3 30.0 - 35.0 g/dL 10/16/2024 9:12 PM [facility] PLATELETS 309 140 - 440 K/uL 10/16/2024 9:12 PM [facility] MPV 11.4 8.9 - 12.8 fL 10/16/2024 9:12 PM [facility] RDW 17.1(H) 11.0 - 14.5 % 10/16/2024 9:12 PM [facility] RDW-STDEV 51.2 37.0 - 54.0 fL 10/16/2024 9:12 PM [facility] NEUTROPHILS 61 42 - 75 % 10/16/2024 9:12 PM [facility] LYMPHOCYTES 22(L) 24 - 44 % 10/16/2024 9:12 PM [facility] MONOCYTES 16(H) 2 - 10 % 10/16/2024 9:12 PM [facility] EOSINOPHILS 0 0 - 7 % 10/16/2024 9:12 PM [facility] BASOPHILS 0 0 - 1 % 10/16/2024 9:12 PM [facility] IMMATURE GRANULOCYTES 1 0 - 2 % 10/16/2024 9:12 PM [facility] NEUTROPHIL ABSOLUTE 9.48(H) 2.00 - 8.00 K/uL 10/16/2024 9:12 PM [facility] LYMPHOCYTE ABSOLUTE 3.45 1.20 - 4.00 K/uL 10/16/2024 9:12 PM [facility] MONOCYTE ABSOLUTE 2.44(H) 0.10 - 0.60 K/uL 10/16/2024 9:12 PM [facility] EOSINOPHIL ABSOLUTE 0.01 0.00 - 0.70 K/uL 10/16/2024 9:12 PM CDT [facility] BASOPHILS ABSOLUTE 0.06 0.00 - 0.20 K/uL 10/16/2024 9:12 PM CDT [facility] IMMATURE GRANULOCYTES ABSOLUTE 0.09 0.00 - 0.10 K/uL 10/16/2024 9:12 PM CDT [facility] SMEAR REVIEWED: NN - No Action Needed 10/16/2024 9:12 PM CDT [facility] Blood Venipuncture / Unknown 10/16/2024 8:42 PM CDT 10/16/2024 8:54 PM CDT Je Garnett MD HEMATOLOGY ORDERA BLES Final Result Performing Organization Address City/[facility]/ZIP Co de Phone Number [facility] CLIA # [id number] [address] [place] [address] * PREPARE RED BLOOD CELLS (10/16/2024 8:29 PM CDT) Pathologist [facility] COMPONENT TYPE [id number] [facility] -- [place] COMPONENT IDENTIFICATION [id number] [facility] [place] UNIT ABO O [facility] [place] UNIT RH NEG [facility] [place] CROSSMATCH Compatible [facility] -- [place] COMPONENT STATUS Returned [facility] [place] COMPONENT EXPIRATION DATE/TIME [id number] [facility] -- [place] COMPONENT CODING SYSTEM 9500 [facility] [place] VOLUME, BLOOD PRODUCT 350 [facility] -- [place] 10/16/2024 8:29 PM CDT Je Garnett MD LAB TRANSFUSION O RDERABLES Edited Result - Final [facility] [place] CLIA#[id number] [address] [place] [address], * PREPARE RED BLOOD CELLS (10/16/2024 8:29 PM CDT) COMPONENT TYPE [id number] [facility] -- [place] COMPONENT IDENTIFICATION [id number] [facility] -- [place] UNIT ABO O [facility] [place] UNIT RH NEG [facility] [place] CROSSMATCH Compatible [facility] [place] COMPONENT STATUS Transfused ME Y LABORATORY SERVICES -- [place] COMPONENT EXPIRATION DATE/TIME [id number] [facility] -- [place] COMPONENT CODING SYSTEM 95[address] [facility] -- [place] VOLUME, BLOOD PRODUCT 350 [facility] -- [place] 10/16/2024 8:29 PM CDT Je Garnett MD LAB TRANSFUSION O RDERABLES Edited Result - Final [facility] [place] CLIA#[id number] [facility] [place] [address], * PREPARE RED BLOOD CELLS (10/16/2024 8:29 PM CDT) COMPONENT TYPE [id number] [facility] -- [place] COMPONENT IDENTIFICATION [id number] [facility] -- [place] UNIT ABO O [facility] [place] UNIT RH NEG [facility] -- [place] CROSSMATCH Compatible [facility] -- [place] COMPONENT STATUS Returned [facility] -- [place] COMPONENT EXPIRATION DATE/TIME [id number] [facility] -- [place] COMPONENT CODING SYSTEM 9500 [facility] -- [place] VOLUME, BLOOD PRODUCT 350 [facility] -- [place] 10/16/2024 8:29 PM CDT Je Garnett MD LAB TRANSFUSION O RDERABLES Edited Result - Final [facility] [place] CLIA#[id number] [address] [place] [address], * PREPARE RED BLOOD CELLS (10/16/2024 8:29 PM CDT) COMPONENT TYPE [id number] [facility] -- [place] COMPONENT IDENTIFICATION [id number] [facility] [place] UNIT ABO O [facility] [place] UNIT RH NEG [facility] -- [place] CROSSMATCH Compatible [facility] -- [place] COMPONENT STATUS Returned [facility] -- [place] COMPONENT EXPIRATION DATE/TIME [id number] [facility] -- [place] COMPONENT CODING SYSTEM 9500 [facility] -- [place] VOLUME, BLOOD PRODUCT 350 [facility] -- [place] Other, specify 10/16/2024 8: 29 PM CDT us Je Garnett MD LAB TRANSFUSION O RDERABLES Edited Result - Final [facility] [place] CLIA#[id number] [address] [place] [address], * EKG 12-LEAD (10/16/2024 8:23 PM CDT) 10/16/2024 8:23 PM CDT Narrative INTERFACE SYSTEM - 10/17/2024 6:50 [place] [address] Test Date: 2024-10-16 Pat Name: VIRY QUACH Department: 11 Room: 21 21 Gender: Female 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 : 1965 Requested By: Order Number: [id number] Erasto MD: Chan Sanchez Measurements Intervals [place] Rate: 99 P: 62 IL: 142 QRS: 87 QRSD: 78 T: 77 QT: 334 QTc: 428 Interpretive Statements Normal sinus rhythm Cannot rule out Inferior infarct, age undetermined Abnormal ECG Electronically Signed On 10-17-2024 6:50:50 CDT by Chan Sanchez Procedure Note Chan Sanchez MD - 10/17/2024 [facility] [address] [place] [address] Test Date: 2024-10-16 Pat Name: VIRY QUACH Department: 11 Room: [facility] Gender: Female 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[employer]: [id number] : 1965 Requested By: Order Number: [id number] Reading MD: Chan Sanchez Measurements Intervals [place] Rate: 99 P: 62 [place]: 142 QRS: 87 QRSD: 78 T: 77 QT: 334 QTc: 428 Interpretive Statements Normal sinus rhythm Cannot rule out Inferior infarct, age undetermined Abnormal ECG Electronically Signed On 10-17-2024 6:50:50 CDT by Chan Sanchez us Je Garnett MD ECG ORDERABLES F inal Result INTERFACE SYSTEM Refer to clinic/hospital department * Critical Care (10/16/2024 7:49 PM CDT) Narrative Je Garnett MD - 10/16/2024 7:49 PM CDT Je Garnett MD 10/17/2024 12:07 AM Critical Care Performed by: Je Garnett MD Authorized by: Je Garnett MD Critical care provider statement: Critical care time (minutes): 80 Critical care was necessary to treat or prevent imminent or life-threatening deterioration of the following conditions: 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, 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 Critical care was time spent personally by me on the following activities: Blood draw for specimens, development of treatment plan with patient or surrogate, discussions with consultants, evaluation of patient's response to treatment, examination of patient, obtaining history from patient or surrogate, review of old charts, re-evaluation of patient's condition, pulse oximetry, ordering and review of radiographic studies, ordering and review of laboratory studies and ordering and performing treatments and interventions us Je Garnett MD PROCEDURE/MINOR S URGICAL ORDERABLES Final Result documented in this encounter Visit Diagnoses Diagnosis Lower GI hemorrhage- Primary Hemorrhage of gastrointestinal tract, unspecified Gastrointestinal hemorrhage, unspecified gastrointestinal hemorrhage type Cirrhosis of liver with ascites, unspecified hepatic cirrhosis type (CMS/HCC) Hereditary benign telangiectasia Hemorrhoids, unspecified hemorrhoid type Cirrhosis of liver without ascites, unspecified hepatic cirrhosis type (CMS/HCC) Hereditary benign telangiectasia C. difficile colitis Intestinal infection due to clostridium difficile Cirrhosis of liver with ascites (CMS/HCC) Hemorrhoids Unspecified hemorrhoids without mention of complication documented in this encounter Administered Medications Inactive Administered Medications - up to 3 most recent administrations Medication Order MAR Action Action Date Dose Rate Site albumin, human 25 % injection 25 Gram 25 Gram, IV, ONE TIME ONLY, 1 dose, On Tue10/18/24 at 1030, Stat, Indication: Large Volume Paracentesis New Bag 10/18/2024 10:31 AM CDT 25 Grams carvediloL (COREG) tablet 3.125 mg 3.125 mg, Oral, TWO TIMES DAILY WITH MEALS, First dose on Tue10/18/24 at 1045, Until Discontinued, Routine Given 10/23/2024 8:30 AM CDT 3.125 mg Given 10/22/2024 6:09 PM CDT 3.125 mg Given 10/22/2024 8:19 AM CDT 3.125 mg cefTRIAXone (ROCEPHIN) 2,000 mg in sodium chloride 0.9% 50 mL IVPB (MBP) 2,000 mg, IV, ONE TIME ONLY, 1 dose, On Tue10/16/24 at 2100, Routine, Antibiotic Indication: Intra-abdominal infection / Fecal Contamination New Bag 10/16/2024 9:08 PM CDT 2,000 mg 118 mL/hr cefTRIAXone (ROCEPHIN) 2,000 mg in sodium chloride 0.9% 50 mL IVPB (MBP) 2,000 mg, IV, EVERY 24 HOURS (DAILY), 4 doses, First dose on Tue10/17/24 at 2100, Last dose on Tue10/20/24 at 2100, Routine, Antibiotic Indication: Other: Enter in Comments, Antibiotic Indication: SBP prophylaxis, GIB New Bag 10/20/2024 8:59 PM CDT 2,000 mg 118 mL/hr New Bag 10/19/2024 8:23 PM CDT 2,000 mg 118 mL/hr New Bag 10/18/2024 10:01 PM CDT 2,000 mg 118 mL/hr desmopressin (DDAVP) 28.12 mcg in sodium chloride 0.9 % 50 mL IVPB 28.12 mcg (0.4 mcg/kg 70.3 kg), IV, ONE TIME ONLY, 1 dose, On Tue10/16/24 at 2030, Stat, Anticoagulation Reversal for Major Bleeding (anti-platelet agent) New Bag 10/16/2024 9:46 PM CDT 28.12 mcg 118 mL/hr dextrose 5 % - sodium chloride 0.9 % infusion IV, at 40 mL/hr, SEE ADMIN INSTRUCTIONS, Starting on Tue10/18/24 at 1032, Until Tue10/23/24 at 1543, Routine dextrose 50% (D50) syringe 12.5 Gram 12.5 Gram, IV, SEE ADMIN INSTRUCTIONS, Starting on Tue10/18/24 at 1032, Until Tue10/23/24 at 1543, Routine dextrose 50% (D50) syringe 25 Gram 25 Gram, IV, SEE ADMIN INSTRUCTIONS, Starting on Tue10/18/24 at 1032, Until Tue10/23/24 at 1543, Routine FENTANYL (PF) 50 MCG/ML INJECTION SOLUTION (CABINET OVERRIDE) 1 dose, Starting on Tue10/16/24 at 2233, Until Tue10/16/24 at 2252, Svetlana Lehman V: cabinet override Given 10/16/2024 10:52 PM CDT 50 mcg fentaNYL PF (SUBLIMAZE) 50 mcg/mL injection 25 mcg 25 mcg, IV, ONE TIME ONLY, 1 dose, On Tue10/16/24 at 2045, Routine Given 10/16/2024 8:49 PM CDT 25 mcg glucagon HCL 1 mg/mL injection 1 mg 1 mg, IM, SEE ADMIN INSTRUCTIONS, Starting on Tue10/18/24 at 1032, Until Tue10/23/24 at 1543, Routine HYDROmorphone (PF) (DILAUDID) injection 0.3 mg 0.3 mg, IV, EVERY 3 HOURS PRN, Starting on Tue10/16/24 at 2333, Until Tue10/19/24 at 1518, Pain (See admin instructions), Routine Given 10/19/2024 5:21 AM CDT 0.3 mg Given 10/18/2024 11:27 PM CDT 0.3 mg Given 10/18/2024 6:49 PM CDT 0.3 mg HYDROmorphone (PF) (DILAUDID) injection 0.3 mg 0.3 mg, IV, EVERY 4 HOURS PRN, Starting on Tue10/20/24 at 1032, Until Tue10/22/24 at 1031, Pain, Break-Through, Routine Given 10/20/2024 8:56 PM CDT 0.3 mg Given 10/20/2024 11:01 AM CDT 0.3 mg HYDROmorphone (PF) (DILAUDID) injection 0.5 mg 0.5 mg, IV, ONE TIME ONLY, 1 dose, On Tue10/16/24 at 2145, Routine Given 10/16/2024 9:42 PM CDT 0.5 mg HYDROmorphone (PF) (DILAUDID) injection 0.5 mg 0.5 mg, IV, EVERY 4 HOURS PRN, 2 doses, Starting on Tue10/19/24 at 2207, Until Tue10/20/24 at 0512, Pain, Break-Through, Pain, Severe, Routine Given 10/20/2024 5:12 AM CDT 0.5 mg Given 10/19/2024 10:25 PM CDT 0.5 mg ipratropium-albuteroL (DUONEB) 0.5 mg-3 mg(2.5 mg base)/3 mL inhalation solution 3 mL 3 mL, Inhalation, EVERY 4 HOURS PRN RESPIRATORY, 1 dose, Starting on Tue10/19/24 at 1155, Until Tue10/23/24 at 1543, Respiration, Shortness of Breath, Wheezing, dyspnea, Routine, PACUIndications:dyspnea,wheezing lactated ringers infusion IV, at 50 mL/hr, CONTINUOUS, Starting on Tue10/16/24 at 2330, Until Tue10/17/24 at 0907, Routine Rate Verify 10/17/2024 7:00 AM CDT 50 mL/ hr Restarted 10/17/2024 12:06 AM CDT 50 mL/hr Rate Verify 10/16/2024 11:45 PM CDT 50 mL/hr lactulose (ENULOSE) 10 gram/15 mL oral solution 30 mL 30 mL, Oral, THREE TIMES DAILY, First dose on Tue10/17/24 at 0900, Until Discontinued, Routine, On hold since Tue10/17/2024 at 1023 until manually unheld levothyroxine (SYNTHROID) tablet 50 mcg 50 mcg, Oral, DAILY EARLY, First dose (after last modification) on Tue10/17/24 at 0900, Until Discontinued, Routine, Previous Med: levothyroxine 50 mcg tablet - Orig Sig - Take 50 mcg by mouth daily. Given 10/23/2024 5:41 AM CDT 50 mcg Given 10/22/2024 5:37 AM CDT 50 mcg Given 10/21/2024 5:40 AM CDT 50 mcg magnesium SULFATE in water 2 gram/50 mL (4 %) IVPB 2 Gram 2 Gram, IV, ONE TIME ONLY, 1 dose, On Tue10/17/24 at 1100, Routine Rate Verify 10/17/2024 2:00 PM CDT 25 mL/hr New Bag 10/17/2024 1:17 PM CDT 2 Grams 25 mL/hr MIDAZOLAM 1 MG/ML INJECTION SOLUTION (CABINET OVERRIDE) 1 dose, Starting on Tue10/16/24 at 2233, Until Tue10/16/24 at 2250, Svetlana Lehman V: cabinet override Given 10/16/2024 10:50 PM CDT 2 mg MIDAZOLAM 1 MG/ML INJECTION SOLUTION (CABINET OVERRIDE) 1 dose, Starting on Tue10/16/24 at 2248, Until Tue10/16/24 at 2250, Svetlana Lehman V: cabinet override Given 10/16/2024 10:50 PM CDT 2 mg naloxone (NARCAN) 0.4 mg/mL injection 0.1-0.4 mg 0.1-0.4 mg, IV, SEE ADMIN INSTRUCTIONS, Starting on Tue10/16/24 at 2303, Until Tue10/23/24 at 1543, Routine octreotide (SandoSTATIN) 1,000 mcg in sodium chloride 0.9 % 200 mL infusion 50 mcg/hr (10 mL/hr), IV, CONTINUOUS, Starting on Tue10/16/24 at 2315, Until Tue10/17/24 at 1644, Routine Rate Verify 10/17/2024 3:35 PM CDT 50 mcg/hr 10 mL/ hr Rate Verify 10/17/2024 2:00 PM CDT 50 mcg/hr 10 mL/hr Restarted 10/17/2024 12:28 PM CDT 50 mcg/hr 10 mL/hr octreotide (SandoSTATIN) 100 mcg/mL injection 500 mcg 500 mcg, IV, EVERY 8 HOURS, First dose on Tue10/16/24 at 2030, Until Discontinued, Routine Given 10/16/2024 8:55 PM CDT 500 mcg ondansetron (ZOFRAN) 4 mg/2 mL injection 4 mg 4 mg, IV, EVERY 6 HOURS PRN, Starting on Tue10/16/24 at 2304, Until Tue10/23/24 at 1543, Nausea/Emesis, Routine Given 10/20/2024 5:12 AM CDT 4 mg Given 10/18/2024 4:06 AM CDT 4 mg oxyCODONE-acetaminophen (PERCOCET) 5-325 mg per tablet 2 Tablet 2 Tablet, Oral, EVERY 4 HOURS PRN, Starting on Tue10/19/24 at 1405, Until Tue10/23/24 at 1543, Pain (See admin instructions), Routine Given 10/23/2024 8:30 AM CDT 2 Tablets Given 10/23/2024 3:27 AM CDT 2 Tablets Given 10/22/2024 7:59 PM CDT 2 Tablets pantoprazole (PROTONIX) 40 mg in sodium chloride 0.9% 10 mL injection 40 mg, IV, TWO TIMES DAILY, First dose on Tue10/17/24 at 0900, Until Discontinued, Routine, For vial+diluent: 10 mL NS is needed to reconstitute pantoprazole vial. For doses less than 40 mg Epic may default less than 10 mL NS. Pharmacist to change NS dispense amount to 10 mL., Indication: Upper gastrointestinal (GI) bleed Given 10/23/2024 8:31 AM CDT 40 mg Given 10/22/2024 7:59 PM CDT 40 mg Given 10/22/2024 10:00 AM CDT 40 mg pantoprazole (PROTONIX) 80 mg in sodium chloride 0.9% 20 mL injection 80 mg, IV, ONE TIME ONLY, 1 dose, On Tue10/16/24 at 2030, Routine, For vial+diluent: 10 mL NS is needed to reconstitute pantoprazole vial. For doses less than 40 mg Epic may default less than 10 mL NS. Pharmacist to change NS dispense amount to 10 mL., Indication: Upper gastrointestinal (GI) bleed Given 10/16/2024 8:53 PM CDT 80 mg peg 3350-electrolytes (GOLYTELY) oral solution 4,000 mL 4,000 mL (1 Bottle), Oral, ONE TIME ONLY, 1 dose, On Tue10/16/24 at 2315, Routine Given 10/17/2024 12:32 AM CDT 4,0 00 mL potassium CHLORIDE (KLOR-CON) SR tablet 40 mEq 40 mEq, Oral, EVERY 2 HOURS, 2 doses, First dose on Tue10/18/24 at 1200, Last dose on Tue10/18/24 at 1400, Routine Given 10/18/2024 2:31 PM CDT 40 mEq Given 10/18/2024 11:43 AM CDT 40 mEq sodium chloride 0.9 % infusion IV, at 30 mL/hr, CONTINUOUS, Starting on Tue10/17/24 at 0815, Until Tue10/17/24 at 1644, Routine New Bag 10/17/2024 8:59 AM CDT 30 mL/ hr traZODone (DESYREL) tablet 50 mg 50 mg, Oral, DAILY AT BEDTIME, First dose on Tue10/17/24 at 2100, Until Discontinued, Routine, Previous Med: traZODone (DESYREL) 50 mg tablet - Orig Sig - Take 50 mg by mouth daily at bedtime. Given 10/22/2024 7:59 PM CDT 50 mg Given 10/21/2024 8:26 PM CDT 50 mg Given 10/20/2024 8:56 PM CDT 50 mg vancomycin (FIRVANQ) oral solution 125 mg 125 mg, Oral, EVERY 6 HOURS, 40 doses, First dose on Tue10/17/24 at 0000, Last dose on Tue10/26/24 at 2100, Routine, Indication: c. diff treatment Given 10/23/2024 8:38 AM CDT 125 mg Given 10/23/2024 3:27 AM CDT 125 mg Given 10/22/2024 8:41 PM CDT 125 mg documented in this encounter Active and Recently Administered Medications Times are shown in CDT. Scheduled Medication Order 10/21/2024 10/22/2024 10/23/2024 carvediloL (COREG) tablet 3.125 mg 3.125 mg, Oral, TWO TIMES DAILY WITH MEALS, First dose on Tue10/18/24 at 1045, Until Discontinued, Routine 0835 (Given - Provider: Josie Goss RN)1729 (Given - Provider: Josie Goss RN) 0819 (Given - Provider: Kaylen Tellez, RN)1809 (Given - Provider: Kaylen Tellez, RN) 0830 (Given - Provider: Kaylen Tellez RN) dextrose 5 % - sodium chloride 0.9 % infusion IV, at 40 mL/hr, SEE ADMIN INSTRUCTIONS, Starting on Tue10/18/24 at 1032, Until Tue10/23/24 at 1543, Routine dextrose 50% (D50) syringe 12.5 Gram 12.5 Gram, IV, SEE ADMIN INSTRUCTIONS, Starting on Tue10/18/24 at 1032, Until 10/23/24 at 1543, Routine dextrose 50% (D50) syringe 25 Gram 25 Gram, IV, SEE ADMIN INSTRUCTIONS, Starting on Tue10/18/24 at 1032, Until Tu10/23/24 at 1543, Routine glucagon HCL 1 mg/mL injection 1 mg 1 mg, IM, SEE ADMIN INSTRUCTIONS, Starting on Tue10/18/24 at 1032, Until Tue10/23/24 at 1543, Routine lactulose (ENULOSE) 10 gram/15 mL oral solution 30 mL 30 mL, Oral, THREE TIMES DAILY, First dose on Tue10/17/24 at 0900, Until Discontinued, Routine, On hold since Tue10/17/2024 at 1023 until manually unheld 0900 (Automatically Held - Provider: Jonathan Sampson MD)1300 (Automatically Held - Provider: Jonathan Sampson MD)1800 (Automatically Held - Provider: Jonathan Sampson MD) 0900 (Automatically Held - Provider: Jonathan Sampson MD)1300 (Automatically Held - Provider: Jonathan Sampson MD)1800 (Automatically Held - Provider: Jonathan Sampson MD) 0900 (Automatically Held - Provider: Jonathan Sampson MD)1300 (Automatically Held - Provider: Jonathan Sampson MD)1543 (Order Unhold - Provider: PROVIDER, DISCHARGE PATIENT) levothyroxine (SYNTHROID) tablet 50 mcg 50 mcg, Oral, DAILY EARLY, First dose (after last modification) on Tue10/17/24 at 0900, Until Discontinued, Routine, Previous Med: levothyroxine 50 mcg tablet - Orig Sig - Take 50 mcg by mouth daily. 0540 (Given - Provider: Trixie Melissa RN) 0537 (Given - Provider: Trixie Melissa RN) 0541 (Given - Provider: Trixie Melissa RN) naloxone (NARCAN) 0.4 mg/mL injection 0.1-0.4 mg 0.1-0.4 mg, IV, SEE ADMIN INSTRUCTIONS, Starting on Tue10/16/24 at 2303, Until Tue10/23/24 at 1543, Routine pantoprazole (PROTONIX) 40 mg in sodium chloride 0.9% 10 mL injection 40 mg, IV, TWO TIMES DAILY, First dose on Tue10/17/24 at 0900, Until Discontinued, Routine, For vial+diluent: 10 mL NS is needed to reconstitute pantoprazole vial. For doses less than 40 mg Epic may default less than 10 mL NS. Pharmacist to change NS dispense amount to 10 mL., Indication: Upper gastrointestinal (GI) bleed 0835 (Given - Provider: Josie Goss RN)2025 (Given - Provider: Trixie Melissa RN) 1000 (Given - Provider: Kaylen Tellez RN)1958 (Given - Provider: Trixie Melissa RN)2100 (Not Given - Provider: Trixie Melissa RN - Reason: Other - See Comment - Comment: ALREADY GIVEN) 0831 (Given - Provider: Kaylen Tellez RN) traZODone (DESYREL) tablet 50 mg 50 mg, Oral, DAILY AT BEDTIME, First dose on Tue10/17/24 at 2100, Until Discontinued, Routine, Previous Med: traZODone (DESYREL) 50 mg tablet - Orig Sig - Take 50 mg by mouth daily at bedtime. 2025 (Given - Provider: Trixie Melissa RN) 195 (Given - Provider: Trixie Melissa RN)2100 (Not Given - Provider: Trixie Melissa RN - Reason: Other - See Comment - Comment: ALREADY GIVEN) vancomycin (FIRVANQ) oral solution 125 mg 125 mg, Oral, EVERY 6 HOURS, 40 doses, First dose on Tue10/17/24 at 0000, Last dose on Tue10/26/24 at 2100, Routine, Indication: c. diff treatment 022 (Given - Provider: Trixie Melissa RN)0835 (Given - Provider: Josie Goss RN)1505 (Given - Provider: Josie Goss RN)2025 (Given - Provider: Trixie Meilssa RN) 0257 (Given - Provider: Trixie Melissa RN)0959 (Given - Provider: Kaylen Tellez RN)1555 (Feeding Started - Provider: Kayeln Tellez RN)204 (Given - Provider: Trixie Melissa RN) 0327 (Given - Provider: Trixie Melissa RN)0838 (Given - Provider: Kaylen Tellez RN) PRN Medication Order 10/21/2024 10/22/2024 10/23/2024 ipratropium-albuteroL (DUONEB) 0.5 mg-3 mg(2.5 mg base)/3 mL inhalation solution 3 mL 3 mL, Inhalation, EVERY 4 HOURS PRN RESPIRATORY, 1 dose, Starting on Tue10/19/24 at 1155, Until Tue10/23/24 at 1543, Respiration, Shortness of Breath, Wheezing, dyspnea, Routine, PACU ondansetron (ZOFRAN) 4 mg/2 mL injection 4 mg 4 mg, IV, EVERY 6 HOURS PRN, Starting on Tue10/16/24 at 2304, Until Tue10/23/24 at 1543, Nausea/Emesis, Routine oxyCODONE-acetaminophe n (PERCOCET) 5-325 mg per tablet 2 Tablet 2 Tablet, Oral, EVERY 4 HOURS PRN, Starting on Tue10/19/24 at 1405, Until Tue10/23/24 at 1543, Pain (See admin instructions), Routine 0227 (Given - Provider: Trixie Melissa RN)0835 (Given - Provider: Josie Goss RN)1505 (Given - Provider: Josie Goss RN)2025 (Given - Provider: Trixie Melissa, RN) 0257 (Given - Provider: Trixie Melissa RN)0819 (Given - Provider: Kaylen Tellez, AMARIS)1319 (Given - Provider: Kaylen Tellez, AMARIS)195 (Given - Provider: Trixie Melissa RN) 0327 (Given - Provider: Trixie Melissa RN)0830 (Given - Provider: Kaylen Tellez RN) documented in this encounter Additional Health Concerns Infection Onset Date Last Indicated Resolved Time C Diff 10/07/2024 10/07/2024 R/O GI Pathogen 10/16/2024 10/17/2024 10/17/2024 4 :45 AM CDT documented as of this encounter Care Teams Box Toe Buffer Relationship Specialty Start Date End Date Aguila Castro MD [address] [id number] PCP - General Family Practice 05/26/21 10/23/24 documented as of this encounter
--- OUTSIDE RECORDS SUMMARY | 2024-10-19 12:00 | XMS_ITS | Encounter Summary ---
Author Organization [facility] Address [address] [place] [address] Care Team Providers Care Emergency Spill Response Technician Name Role Phone Aguila Castro MD Primary Care Provider + Reason for Visit * Reason Comments Diarrhea Tx from [facility] - r ecent dx of cdiff - has a bleeding disorder and has been having bloody/watery stools. Received 1 unit of blood from transferring facility * Auth/Cert (Routine) Specialty Diagnoses / Procedures Referred By Maryjane tim Referred To Contact Emergency Medicine Diagnoses cdiff +, GI bleed, general weakness [facility] Emergency Department [address] [place] [address] Phone: tel: fax: Referral ID Status Reason Start Date Expiration Date Visits Re quested Visits Authorized [id number] 1 1 Encounter Details Date Type Department Care Team (Late st Contact Info) Description 10/19/2024 12:00 PM CDT - 10/19/2024 1:14 PM CDT Surgery [facility] Operating Room [address] [place] [address] Crescencio Aguero MD [address] [address] HEMORRHOIDECTOMY Surgery Details Date/Time Status Location OR Service Patient Class Case Class Case Type Trauma Case? 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 Gender Identity Not on file Sexual Orientation Not on file documented as of this encounter Last Filed Vital Signs Vital Sign Reading Time Taken Comments Blood Pressure 131/72 10/19/2024 1:13 PM CDT Pulse 81 10/19/2024 1:13 PM CDT Temperature 36.7 C (98 F) 10/19/2024 1:13 PM CDT Respiratory Rate 15 10/19/2024 1:13 PM CDT Oxygen Saturation 100% 10/19/2024 1:13 PM CDT Inhaled Oxygen Concentration - - Weight 68.7 kg (151 lb 7.3 oz) 10/18/2024 3:00 A M CDT Height 175.3 cm (5' 9 ) 10/16/2024 10:30 PM CDT Body Mass Index 21.16 10/16/2024 10:30 PM CDT documented in this encounter Discharge Summaries * Jaden Guzmán MD - 10/23/2024 12:14 PM CDT [facility] Viry Quach 59 y.o. female 1965 CSN: [id number] Date of Admission: 10/16/2024 Date of Discharge: [...] needle course. Insertion of a 10-cm 5 [place] [employer] centesis catheter, through which approximately 2200 ml [...] provider, with anticipated disposition to home or shelter facility depending on recovery and family support. [...] planning to follow up with hepatology at [place]. Prescribed Protonix and lactulose on discharge. Defer lasix and spironolactone to PCP or GI as OP. PCP COMMUNICATION : Aguila Castro MD via [employer] communication MEDICATION CHANGES (significant): -started on Protonix [...] by mouth. PRN Refills: 0 IRON PS [id number] ACID ORAL Take by mouth. Refills: 0 [...] Your Medications These medications were sent to [facility] [address] [place] [address] [address] [address] lactulose 10 gram/15 mL oral solution oxyCODONE-acetaminophen 5-325 mg tablet pantoprazole 40 mg Tablet, Delayed Release (E.C.) Future Appointments Date Time Provider Department Center 10/23/2024 1:00 PM [facility] RO[facility] 12/07/2024 7:30 AM Melquiades Ken [...] Bravo RN - 10/20/2024 9:02 AM CDT [facility]orectal [facility] [address] [place] [address] [place] [id number] Follow up in 4-6 weeks with Ai [...] make a follow up appointment, please call [phone]. Additional problems: Active Hospital Problems Diagnosis Hemorrhoids Lower GI hemorrhage Cirrhosis of liver with ascites (CMS/HCC) Hereditary benign telangiectasia C. difficile colitis Resolved Hospital Problems No resolved problems to display. Labs: Recent Labs 10/20/24 2103 10/21/24 0611 10/21/24 0933 10/21/24 2215 10/22/24 0514 10/22/24 0923 10/22/24 2252 10/23/24 0455 10/23/24 0924 WBC -- 8.8 -- -- 6.1 -- -- 6.2 -- HGB 7.6* 7.8* 7.4* 7.3* 7.2* 7.8* 7.5* 7.7* 8.1* HCT 23.3* 23.7* 22.5* 22.8* 22.4* 24.8* 22.7* 24.1* 25.5* PLT -- 229 -- -- 219 -- -- 241 -- Recent Labs 10/21/24 0611 10/22/24 0514 10/23/24 0455 NA 136 137 135* K 3.8 3.8 3.9 CL 104 105 103 CO2 24 24 22 CA 8.3* 8.1* 8.0* BUN 6* 7* 8 CREAT 0.83 0.74 0.71 GLUCOSE 104* 96 103* Recent Labs 10/21/24 0611 10/22/24 0514 10/23/24 0455 TOTALPROTEIN 5.3* 5.1* 5.1* [...] urine or bowel output, Contact hospitalist office [phone] for questions if [facility]. Contact [facility] Transfer Hub at [phone] if patient needs a direct admission. Tell us about the patient and how we can help them. If we can provide the service that is needed, we will do the rest of the work. * Discharge Instr - Diet* Nya Bravo RN - 10/23/2024 12:31 PM CDT * Attachments The following attachments cannot be sent through Care Everywhere. * Clostridioides difficile colitis (Indonesian) * EGD (Upper Endoscopy): Post op (Indonesian) * Hemorrhoidectomy: Post op (Indonesian) * Hemorrhoidectomy: Returning Home: Video (Indonesian) * Anemia: Heavy Bleeding (Indonesian) * Blood Transfusions: General Info (Indonesian) * Paracentesis: General Info (Indonesian) * Lactulose (Indonesian) * Oxycodone (Indonesian) documented in this encounter Medications at Time [...] as needed for Nausea. 02/01/2023 IRON PS [id number] ACID ORAL Take by mouth. montelukast (SINGULAIR) [...] CDT Your life is our life's work [facility] Hospitalist/Hospital Medicine Progress Note LOS: 6 days Room/Bed: [facility]/ Patient name: Viry Quach Date of : [...] range just a few days ago, and YRAELY. Her LA was WDL. She received a [...] Skin: negative LABORATORY: Recent Labs 10/19/24 1938 10/20/2430110/20/24 0917 10/20/24210210/21/24 0610/21/24 0933 10/21/24 2215 10/22/24 0514 10/22/24 [...] Ai Sepulveda NP, 3.125 mg at 10/22/24 08 levothyroxine (SYNTHROID) tablet 50 mcg, 50 mcg, Oral, daily EARLY, Ai Sepulveda NP, 50 mcg at10/22/24 05 traZODone (DESYREL) tablet 50 mg, 50 [...] Plan -OP follow up with hepatology at [place] planned. - Will plan paracentesis today. #Recent diagnosis of C. difficile colitis prior to admission. On PO Vancomycin. #Hx hypothyroidism: Resumed PROPERTY CUSTODIAN Synthroid. DVT prophylaxis: DVT Pharmacologic Prophylaxis: Patient [...] CDT Your life is our life's work [facility] Hospitalist/[facility] Medicine Progress Note LOS: 5 days Room/Bed: [facility]/ Patient name: Viry Quach Date of : [...] EARLY, Ai Sepulveda NP, 50 mcg at10/21/24 0540 traZODone (DESYREL) tablet 50 mg, 50 mg, [...] hours, Ai Sepulveda NP, 125 mg at 10/21/24 0835 pantoprazole (PROTONIX) 40 mg in sodium chloride 0.9% 10 mL injection, 40 mg, IV, BID, Ai Sepulveda NP, 40 mg at 10/21/24 0835 [Held by [...] Plan -OP follow up with hepatology at [place] planned. - Will plan paracentesis today. #Recent diagnosis of C. difficile colitis prior to admission. On PO Vancomycin. #Hx hypothyroidism: Resumed PROPERTY CUSTODIAN Synthroid. DVT prophylaxis: DVT Pharmacologic Prophylaxis: Patient has a contraindication for pharmacologic prophylaxis. Please refer to the orders for additional details. Code status: Full Code Outpatient follow up: PCP Anticipated Disposition Location: Timeframe: 10/22/2024 Criteria: Patient's understanding of illness: yes Primary family contact: MDM complexity: [] Mild [x] Moderate [] High Jaden Guzmán MD 10/21/2024, 11:16 AM * Jaden Guzmán MD - 10/20/2024 1:30 PM CDT Images from the original note were not included. Your life is our life's work [facility] Hospitalist/Hospital Medicine Progress Note LOS: 4 days [...] BEDTIME, Ai Sepulveda NP, 50 mg at 10/19/242017 naloxone (NARCAN) 0.4 mg/mL injection 0.1-0.4 mg, 0.1-0.4 mg, IV, see admin instructions, Ai Sepulveda NP ondansetron (ZOFRAN) 4 mg/2 mL injection 4 mg, 4 mg, IV, every 6 hours PRN, Ai Sepulveda NP, 4mg at 10/20/24 05 cefTRIAXone (ROCEPHIN) 2,000 mg in sodium chloride 0.9% 50 mL IVPB (MBP), 2,000 mg, IV, every 24 hours (daily), Ai Sepulveda NP, Stopped at 10/19/242052 vancomycin (FIRVANQ) oral solution 125 mg, 125 mg, Oral, every 6 hours, Ai Sepulveda NP, 125 mg at 10/20/24 0844 pantoprazole (PROTONIX) 40 mg in sodium chloride 0.9% 10 mL injection, 40 mg, IV, BID, Ai Sepulveda NP, 40 mg at 10/20/24 0843 [Held by Provider] lactulose (ENULOSE) 10 gram/15 mL oral solution 30 mL, 30 mL, Oral, TID, Antonio III, Jeb O, DO [DISCONTINUED] HYDROmorphone (PF) (DILAUDID) injection 0.3 mg, 0.3 mg, IV, every 3 hours PRN, Ai Sepulveda, ANALY, 0.3 mg at 10/19/24 0521 Primary discharge [...] Plan -OP follow up with hepatology at [place] planned. #Recent diagnosis of C. difficile colitis prior to admission. On PO Vancomycin. #Hx hypothyroidism: Resumed PROPERTY CUSTODIAN Synthroid. DVT prophylaxis: DVT Pharmacologic Prophylaxis: Patient [...] included. Your life is our life's work [facility] Hospitalist/Hospital Medicine Progress Note LOS: 3 days Room/Bed: 72/ Patient name: Viry Quach Date of : [...] 0.94 GLUCOSE 119* 141* 182* Recent Labs 10/16/24204110/17/24 0556 10/18/24 0713 TOTALPROTEIN 5.5* 5.2* 5.0* [...] Ai Sepulveda NP, 50 mg at 10/18/24 215 naloxone (NARCAN) 0.4 mg/mL injection 0.1-0.4 mg, [...] IV, every 3 hours PRN, Ai Sepulveda RISK CONSULTANT, 0.3 mg at 10/19/24 0521 [DISCONTINUED] replacement [...] injection, , IV, intra-proc PRN, Deric Ha SEISMOGRAPH CHIEF, 2.5 mL at 10/19/24 1217 [DISCONTINUED] propofoL (DIPRIVAN) injection, , IV, intra-proc PRN, Deric Ha CRNA, 150 mg at 10/19/24 1217 [DISCONTINUED] rocuronium injection, , IV, intra-proc PRN, Deric Ha CRNA, 50 mg at 10/19/24 1217 [DISCONTINUED] sodium chloride 0.9 % infusion, , IV, intra-proc continuous PRN, Deric Ha CRNA, Stopped-Anesthesia at 10/19/24 1317 [DISCONTINUED] dexAMETHasone (DECADRON) injection, , IV, intra-proc PRN, Deric Ha CRNA, 4 mg at 10/19/24 1233 [DISCONTINUED] ondansetron (ZOFRAN) 4 mg/2 mL injection, , IV, intra-proc PRN, Deric Ha CRNA, 4 mg at 10/19/24 1233 [DISCONTINUED] sugammadex (BRIDION) 100 mg/mL injection, , IV, intra-proc PRN, Deric Ha, SEISMOGRAPH CHIEF, 275 mg at 10/19/24 1257 Primary discharge [...] Plan -OP follow up with hepatology at [place] planned. #Recent diagnosis of C. difficile colitis prior to admission. On PO Vancomycin. #Hx hypothyroidism: Resumed PROPERTY CUSTODIAN Synthroid. DVT prophylaxis: DVT Pharmacologic Prophylaxis: Patient [...] III, DO - 10/18/2024 1:10 PM CDT [facility] Patient Handoff Notification: Patient handoff [...] family she said. Lakshmi/values: Viry is the Sabianism of [place]. Needs/hopes resources: She hoped she recover and go home. Spiritual interventions Utilized presence and active listening to explore feelings, stressors, perceptions, questions/concerns, and coping patterns of Viry. Comfort/reassurance provided;support; Prayer provided Introduction of Spiritual Care 13/09. 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 Recommendations for Healthcare Team As spiritual needs/distress arise, please contact Spiritual Care Services. We will follow up as needed. Thank you for this referral. [employer] Laborer Sr. Chhaya Amanda Luciana Spiritual Care Team [phone] * Jeb Alvarez III, DO - 10/18/2024 [...] of C diff and cirrhosis, admitted with [facility]. Both upper and lower endoscopy procedures done [...] no edema. Data Review: BMP: Recent Labs 10/16/24 2042 10/17/24 0556 10/18/24 0713 GLUCOSE 119* 141* 182* [...] Assessment and Plan Neuro/Psych: Hx insomnia, on PROPERTY CUSTODIAN Trazodone. Cardiovascular/Fluids: Hemodynamically stable. Hx HTN, BP [...] DVTp, SCDs only. Endocrine: Hx hypothyroidism: Resumed PROPERTY CUSTODIAN Synthroid. Musculoskeletal/Skin: Local skin care. Family communication: [...] to keep Hgb >7. Promptly page GI roll contour grinder if patient experiences any brisk GI bleeding, especially if accompanied by hemodynamic compromise. Nothing further from inpatient GI standpoint. We will sign off at this time. Please call back with any further GI related questions/concerns. Thank you! NEHAL Hanks-C Gastroenterology EGD 10/16/2024: Impression: - Clean-based ulcers [...] hemorrhoids Continue ceftriaxone for SBP prophylaxis Hold PROPERTY CUSTODIAN lactulose Recent diagnosis of C. difficile. Continue [...] or rebound Data Review: BMP: Recent Labs 10/16/24204110/17/24 0556 GLUCOSE 119* 141* BUN 18 18 [...] Reviewed Assessment and Plan Neuro/Psych: Insomnia: Restart PROPERTY CUSTODIAN trazodone Cardiovascular/Fluids: Hemodynamics are stable Hypertension: Hold PROPERTY CUSTODIAN meds Pulmonary: On room air GI/NUT: Rectal [...] - Mental status at baseline - Hold PROPERTY CUSTODIAN lactulose due to ongoing diarrhea - Start [...] cecum DVTp, SCDs only Endocrine: Hypothyroidism: Resume PROPERTY CUSTODIAN Synthroid. Musculoskeletal/Skin: Routine ICU care Family communication: Plans discussed with the patient and family at bedside documented in this encounter H&P Notes * Julianne David, - 10/17/2024 11:18 AM CDT Endoscopy History [...] ESOPHAGOGASTRODUODENOSCOPY performed by Carmine Dubois MD at [facility] ENDOSCOPY HX ESOPHAGOGASTRODUODENOSCOPY N/A 10/16/2024 ESOPHAGOGASTRODUODENOSCOPY performed by Mayo Taylor MD at [facility] ENDOSCOPY HX HYSTERECTOMY HX INTRACRANIAL ANEURYSM REPAIR HX IVC FILTER RETRIEVAL HX LAPAROTOMY OOPHERECTOMY Right HX TUBAL LIGATION ME COLONOSCOPY FLX DX W/COLLJ SPEC WHEN PFRMD N/A 10/03/2024 COLONOSCOPY performed by Carmine Dickerson DO at [facility] ENDOSCOPY ME ESOPHAGOGASTRODUODENOSCOPY TRANSORAL DIAGNOSTIC N/A 05/08/2024 ESOPHAGOGASTRODUODENOSCOPY performed by Gera Resendez DO at [facility] ENDOSCOPY ME ESOPHAGOGASTRODUODENOSCOPY TRANSORAL DIAGNOSTIC N/A 10/03/2024 ESOPHAGOGASTRODUODENOSCOPY performed by Carmine Dickerson DO at [facility] ENDOSCOPY ME REMOVAL IMPLANT DEEP Right 05/27/2021 HARDWARE REMOVAL performed by Rolando Riley MD at [facility] MAIN OR Allergies Allergen Reactions Sulfa (Sulfonamide [...] 6 hours as needed forNausea. IRON PS [id number] ACID ORAL Take by mouth. montelukast (SINGULAIR) [...] 10/16/2024 10:42 PM CDT Viry Quach 1965 CSN:[id number] 10/16/2024 Referring physician: Aguila Castro MD Endoscopy [...] ESOPHAGOGASTRODUODENOSCOPY performed by Carmine Dubois MD at [facility] ENDOSCOPY HX HYSTERECTOMY HX INTRACRANIAL ANEURYSM REPAIR HX IVC FILTER RETRIEVAL HX LAPAROTOMY OOPHERECTOMY Right HX TUBAL LIGATION ME COLONOSCOPY FLX DX W/COLLJ SPEC WHEN PFRMD N/A 10/03/2024 COLONOSCOPY performed by Carmine Dickerson DO at [facility] ENDOSCOPY ME ESOPHAGOGASTRODUODENOSCOPY TRANSORAL DIAGNOSTIC N/A 05/08/2024 ESOPHAGOGASTRODUODENOSCOPY performed by Gera Resendez DO at [facility] ENDOSCOPY ME ESOPHAGOGASTRODUODENOSCOPY TRANSORAL DIAGNOSTIC N/A 10/03/2024 ESOPHAGOGASTRODUODENOSCOPY performed by Carmine Dickerson DO at [facility] ENDOSCOPY ME REMOVAL IMPLANT DEEP Right 05/27/2021 HARDWARE REMOVAL performed by Rolando Riley MD at [facility] MAIN OR Allergies Allergen Reactions Sulfa (Sulfonamide [...] 6 hours as needed forNausea. IRON PS [id number] ACID ORAL Take by mouth. montelukast (SINGULAIR) [...] ESOPHAGOGASTRODUODENOSCOPY performed by Carmine Dubois MD at [facility] ENDOSCOPY HX HYSTERECTOMY HX INTRACRANIAL ANEURYSM REPAIR HX IVC FILTER RETRIEVAL HX LAPAROTOMY OOPHERECTOMY Right HX TUBAL LIGATION ME COLONOSCOPY FLX DX W/COLLJ SPEC WHEN PFRMD N/A 10/03/2024 COLONOSCOPY performed by Carmine Dickerson DO at [facility] ENDOSCOPY ME ESOPHAGOGASTRODUODENOSCOPY TRANSORAL DIAGNOSTIC N/A 05/08/2024 ESOPHAGOGASTRODUODENOSCOPY performed by Gera Resendez DO at [facility] ENDOSCOPY ME ESOPHAGOGASTRODUODENOSCOPY TRANSORAL DIAGNOSTIC N/A 10/03/2024 ESOPHAGOGASTRODUODENOSCOPY performed by Carmine Dickerson DO at [facility] ENDOSCOPY ME REMOVAL IMPLANT DEEP Right 05/27/2021 HARDWARE REMOVAL performed by Rolando Riley MD at [facility] MAIN OR Medication List CONTINUE taking these [...] by mouth. PRN Refills: 0 IRON PS [id number] ACID ORAL Take by mouth. Refills: 0 [...] Temp Temp src Pulse Resp SpO2 Weight 08/26/25 2200 121/71 -- -- 94 18 93 % -- 10/16/242144 134/77 -- -- 91 20 95 % -- 10/16/240 139/78 -- -- 96 19 96 % -- 10/16/242114 137/83 -- -- (!) 104 22 95 % -- 10/16/241955 118/71 98 ??F (36.7 ??C) Oral 99 18 97 % 70.3 kg (155 lb) PHYSICAL EXAMINATION: Gen: 59-yo female lying in bed in [facility] Neuro: A&O X 4, no focal [...] concerns, she is neurologically intact. Insomnia: Resume PROPERTY CUSTODIAN trazodone once p.o. route available. Cardiovascular/Fluids: She is hemodynamically stable without vasopressors. Hypertension: Hold PROPERTY CUSTODIAN meds for soft pressures. Pulmonary: No acute [...] every 4 hours while NPO. Hypothyroidism: Resume PROPERTY CUSTODIAN Synthroid. Musculoskeletal/Skin: Routine skin care per nursing. [...] the physical exam findings in the applicable resident/Fellow/RISK CONSULTANT/PA's note; my notable physical exam findings include: [...] hemoglobin, received 1 packed RBC. Also on PROPERTY CUSTODIAN aspirin, which was reversed with desmopressin inER. [...] NAME: Viry Quach DATE OF : 1965 [facility]: [id number] DATE: 10/18/2024 Room: [address] [place] [address] Admit Date: 10/16/2024 Hospital day: LOS: 2 [...] Viry Quach DATE OF : 1965 CSN: [id number] DATE: 10/17/2024 Room: [address] [place] [address] Admit Date: 10/16/2024 Hospital day: LOS: 1 [...] 10/17/2024 12:28 PM CDTAssociated Order(s): COLONOSCOPY REPORT [facility] GI Patient Name: Viry Quach Procedure [...] is a 59 year old female. [address], [place] * Naun Montiel RN - 10/17/2024 5:57 AM CDT VASCULAR ACCESS TEAM Lab collection PATIENT NAME: Viry Quach DATE OF : 1965 CSN: [id number] DATE: 10/17/2024 Room: [address] [place] [address] Admit Date: 10/16/2024 Hospital day: LOS: 1 [...] Viry Quach DATE OF : 1965 CSN: [id number] DATE: 10/17/2024 Room: [address] [place] [address] Admit Date: 10/16/2024 Hospital day: LOS: 1 [...] 11:12 PM CDTAssociated Order(s): UPPER ENDOSCOPY REPORT [facility] GI Patient Name: Viry Quach Procedure [...] Scope In: Scope Out: [address] [place], [place] documented in this encounter Consult Notes * Brii Velasquez RN - 10/19/2024 7:53 PM CDTAssociated Order(s): IP CONSULT TO IV TEAM VASCULAR ACCESS CONSULT PATIENT NAME: Viry Quach DATE OF : 1965 CSN: [id number] DATE: 10/19/2024 Room: [address] [place] [address] Admit Date: 10/16/2024 Hospital day: LOS: 3 days PLAN Was asked by vascular surfacing technician to collect H&H after earlier attempts [...] COLONOSCOPY performed by Julianne David DO at [facility] ENDOSCOPY HX ESOPHAGOGASTRODUODENOSCOPY N/A 10/08/2024 ESOPHAGOGASTRODUODENOSCOPY performed by Carmine Dubois MD at [facility] ENDOSCOPY HX ESOPHAGOGASTRODUODENOSCOPY N/A 10/16/2024 ESOPHAGOGASTRODUODENOSCOPY performed by Mayo Taylor MD at [facility] ENDOSCOPY HX HYSTERECTOMY HX INTRACRANIAL ANEURYSM REPAIR HX IVC FILTER RETRIEVAL HX LAPAROTOMY OOPHERECTOMY Right HX TUBAL LIGATION ME COLONOSCOPY FLX DX W/COLLJ SPEC WHEN PFRMD N/A 10/03/2024 COLONOSCOPY performed by Carmine Dickerson DO at [facility] ENDOSCOPY ME ESOPHAGOGASTRODUODENOSCOPY TRANSORAL DIAGNOSTIC N/A 05/08/2024 ESOPHAGOGASTRODUODENOSCOPY performed by Gera Resendez DO at [facility] ENDOSCOPY ME ESOPHAGOGASTRODUODENOSCOPY TRANSORAL DIAGNOSTIC N/A 10/03/2024 ESOPHAGOGASTRODUODENOSCOPY performed by Carmine Dickerson DO at [facility] ENDOSCOPY ME REMOVAL IMPLANT DEEP Right 05/27/2021 HARDWARE REMOVAL performed by Rolando Riley MD at [facility] MAIN OR Medications: Current Facility-Administered Medications Medication Dose Route Frequency Provider Last Rate Last Admin [COMPLETED] albumin, human 25 % injection 25 Gram 25 Gram IV ONE time only Antonio III, Jeb O, DO 25 Gram at 10/18/24 1031 dextrose 5 % - sodium chloride 0.9 % infusion IV see admin instructions Alvarez III, Jeb O, DO dextrose 50% (D50) syringe 12.5 Gram 12.5 Gram IV see admin instructions Alvarez III, Jeb O, DO dextrose 50% (D50) syringe 25 Gram 25 Gram IV see admin instructions Antonio III, Jeb O, DO glucagon HCL 1 mg/mL injection 1 mg 1 mg IM see admin instructions Alvarez III, Jeb O, DO insulin lispro (HumaLOG,ADMELOG) injection 0-6 Units 0-6 Units subCUT TID WITH meals Antonio III, Jeb O, DO potassium CHLORIDE (KLOR-CON) SR tablet 40 mEq 40 mEq Oral every 2 hours Antonio III, Jeb O, DO 40mEq at 10/18/24 1143 carvediloL (COREG) tablet 3.125 mg 3.125 mg Oral BID WITH meals Antonio PEREZ, Jeb O, DO 3.125 mg at10/18/24 1143 levothyroxine [...] 4 mg IV every 6 hours PRN Csasie Persaud PA 4 mg at 10/18/24 0406 [...] Viry Quach DATE OF : 1965 CSN: [id number] DATE: 10/18/2024 Room: [address] [place] [address] Admit Date: 10/16/2024 Hospital day: LOS: 2 [...] ESOPHAGOGASTRODUODENOSCOPY performed by Carmine Dubois MD at [facility] ENDOSCOPY HX ESOPHAGOGASTRODUODENOSCOPY N/A 10/16/2024 ESOPHAGOGASTRODUODENOSCOPY performed by Mayo Taylor MD at [facility] ENDOSCOPY HX HYSTERECTOMY HX INTRACRANIAL ANEURYSM REPAIR HX IVC FILTER RETRIEVAL HX LAPAROTOMY OOPHERECTOMY Right HX TUBAL LIGATION ME COLONOSCOPY FLX DX W/COLLJ SPEC WHEN PFRMD N/A 10/03/2024 COLONOSCOPY performed by Carmine Dickerson DO at [facility] ENDOSCOPY ME ESOPHAGOGASTRODUODENOSCOPY TRANSORAL DIAGNOSTIC N/A 05/08/2024 ESOPHAGOGASTRODUODENOSCOPY performed by Gera Resendez DO at [facility] ENDOSCOPY ME ESOPHAGOGASTRODUODENOSCOPY TRANSORAL DIAGNOSTIC N/A 10/03/2024 ESOPHAGOGASTRODUODENOSCOPY performed by Carmine Dickerson DO at [facility] ENDOSCOPY ME REMOVAL IMPLANT DEEP Right 05/27/2021 HARDWARE REMOVAL performed by Rolando Riley MD at [facility] MAIN OR Current Facility-Administered Medications: levothyroxine (SYNTHROID) [...] hours (daily), Jonathan Sampson MD, Stopped at 10/17/24 2045 vancomycin (FIRVANQ) oral solution 125 mg, 125 [...] infusion, , IV, intra-proc continuous PRN, Rahel Castillo CRNA, Stopped-Anesthesia at 10/17/[address] PIV & labs. Zainab Quintana RN * Naun Montiel RN - 10/17/2024 5:43 AM CDTAssociated Order(s): IP CONSULT TO IV TEAM VASCULAR ACCESS CONSULT PATIENT NAME: Viry Quach DATE OF : 1965 CSN: [id number] DATE: 10/17/2024 Room: [address] [place] [address] Admit Date: 10/16/2024 Hospital day: LOS: 1 [...] ESOPHAGOGASTRODUODENOSCOPY performed by Carmine Dubois MD at [facility] ENDOSCOPY HX HYSTERECTOMY HX INTRACRANIAL ANEURYSM REPAIR HX IVC FILTER RETRIEVAL HX LAPAROTOMY OOPHERECTOMY Right HX TUBAL LIGATION ME COLONOSCOPY FLX DX W/COLLJ SPEC WHEN PFRMD N/A 10/03/2024 COLONOSCOPY performed by Carmine Dickerson DO at [facility] ENDOSCOPY ME ESOPHAGOGASTRODUODENOSCOPY TRANSORAL DIAGNOSTIC N/A 05/08/2024 ESOPHAGOGASTRODUODENOSCOPY performed by Gera Resendez DO at [facility] ENDOSCOPY ME ESOPHAGOGASTRODUODENOSCOPY TRANSORAL DIAGNOSTIC N/A 10/03/2024 ESOPHAGOGASTRODUODENOSCOPY performed by Carmine Dickerson DO at [facility] ENDOSCOPY ME REMOVAL IMPLANT DEEP Right 05/27/2021 HARDWARE REMOVAL performed by Rolando Riley MD at [facility] MAIN OR Current Facility-Administered Medications: [COMPLETED] desmopressin [...] Coy MD, Last Rate: 10 mL/hr at 10/16/24 2345, 50 mcg/hr at 10/16/24 2345 pantoprazole (PROTONIX) 40 mg in sodium chloride [...] Cassie Persaud PA, 0.3 mg at 10/17/24 0305 [DISCONTINUED] octreotide (SandoSTATIN) 100 mcg/mL injection [...] NAME: Viry Quach DATE OF : 1965 [facility]: [id number] DATE: 10/17/2024 Room: [address] [place] [address] Admit Date: 10/16/2024 Hospital day: LOS: 1 day INDICATION: Other EXCLUSIONS/CONSIDERATIONS: none LAST RECORDED TEMP: Temp: 98.3 ??F (36.8 ??C) (10/16/242229)] Assessment Allergies Allergen Reactions Sulfa (Sulfonamide Antibiotics) [...] ESOPHAGOGASTRODUODENOSCOPY performed by Carmine Dubois MD at [facility] ENDOSCOPY HX HYSTERECTOMY HX INTRACRANIAL ANEURYSM REPAIR HX IVC FILTER RETRIEVAL HX LAPAROTOMY OOPHERECTOMY Right HX TUBAL LIGATION ME COLONOSCOPY FLX DX W/COLLJ SPEC WHEN PFRMD N/A 10/03/2024 COLONOSCOPY performed by Carmine Dickerson DO at [facility] ENDOSCOPY ME ESOPHAGOGASTRODUODENOSCOPY TRANSORAL DIAGNOSTIC N/A 05/08/2024 ESOPHAGOGASTRODUODENOSCOPY performed by Gera Resendez DO at [facility] ENDOSCOPY ME ESOPHAGOGASTRODUODENOSCOPY TRANSORAL DIAGNOSTIC N/A 10/03/2024 ESOPHAGOGASTRODUODENOSCOPY performed by Carmine Dickerson DO at [facility] ENDOSCOPY ME REMOVAL IMPLANT DEEP Right 05/27/2021 HARDWARE REMOVAL performed by Rolando Riley MD at [facility] MAIN OR Current Facility-Administered Medications: [COMPLETED] desmopressin [...] Coy MD, Last Rate: 10 mL/hr at 10/16/24 2345, 50 mcg/hr at 10/16/24 2345 pantoprazole (PROTONIX) 40 mg in sodium chloride [...] 500 mcg, IV, every 8 hours, Je Garnett, MD, 500 mcg at 10/16/242054 [DISCONTINUED] tranexamic [...] hours, Jasmyn Coy MD PLAN labs Edie Lou, AMARIS documented in this encounter OR Notes * Operative Report - Crescencio Aguero MD - 10/19/2024 1:54 PM CDT Preoperative diagnosis: Hemorrhoids Postoperative diagnosis: Mixed internal and external hemorrhoids Procedures performed: 1. Exam under anesthesia 2. Excisional hemorrhoidectomy of internal and external hemorrhoids, 3 columns Surgeon: Crescencio Aguero M.D. Duplicating Machine Servicer: BERKLEY Conner JUNIOR ACCOUNT EXECUTIVE JUSTIFICATION: The use of an advanced teacher assistant was required due to the complexity of the procedure and lack of similarly qualified assistants. Duplicating Machine Servicer tasks include: Positioning, prepping & draping, retraction, [...] Viry Quach DATE OF : 1965 CSN: [id number] DATE: 10/16/2024 Admit Date: 10/16/2024 Hospital day: [...] EMS being transferred from an ER in [place]. Patient presented to the ER for bloody [...] Negative PREPARE RED BLOOD CELLS COMPONENT TYPE C2084U84 COMPONENT IDENTIFICATION [id number] UNIT ABO O UNIT RH NEG CROSSMATCH Compatible COMPONENT STATUS Selected COMPONENT EXPIRATION DATE/TIME 027485202924 COMPONENT CODING SYSTEM [address], BLOOD PRODUCT 350 PREPARE RED BLOOD CELLS COMPONENT TYPE [id number] COMPONENT IDENTIFICATION [id number] UNIT ABO O UNIT RH NEG CROSSMATCH Compatible COMPONENT STATUS Selected COMPONENT EXPIRATION DATE/TIME 470956556516 COMPONENT CODING SYSTEM [address], BLOOD PRODUCT 350 PREPARE RED BLOOD CELLS COMPONENT TYPE [id number] COMPONENT IDENTIFICATION [id number] UNIT ABO O UNIT RH NEG CROSSMATCH Compatible COMPONENT STATUS Selected COMPONENT EXPIRATION DATE/TIME 781733004835 COMPONENT CODING SYSTEM [address], BLOOD PRODUCT 350 PREPARE RED BLOOD CELLS COMPONENT TYPE W4877E56 COMPONENT IDENTIFICATION [id number] UNIT ABO O UNIT RH NEG CROSSMATCH Compatible COMPONENT STATUS Selected COMPONENT EXPIRATION DATE/TIME [id number] COMPONENT CODING SYSTEM [address], BLOOD PRODUCT 350 RADIOLOGY: No orders to display EKG: PROCEDURES Critical Care Performed by: Je Garnett MD Authorized by: Je Garnett MD Critical care provider statement: Critical care time (minutes): 80 Critical care was necessary to treat or prevent imminent or life-threatening deterioration of the following conditions: 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 Monitor LFTs and coagulation studies. # [...] Medications Administered During the ED Stay from 10/16/20241948 to 10/16/20242229 Date/Time Order Dose Route Action 10/16/20242215 CDT desmopressin (DDAVP) 28.12 mcg in sodium [...] 6 hours as needed forNausea. IRON PS [id number] ACID ORAL Take by mouth. 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 Expected Discharge Date Oct 22, 2024 Plan Discharge To: [facility] Facility;Home with family assist;Home or Self Care;Home Health Services (10/17/241654) Plan Discharge To - Alternate: [facility] Facility (10/17/241654) Referrals Status: Preferred Pharmacy: [facility] [address] [place] [address] Patient / Family Communications [...] available to assist if needed? Yes - Name/Relation:omkar Mcginnis Patient Discharge Planning Goal: get better [...] Primary Emergency Contact: Ras Lagunas Mobile Relation: Omkar Prescription coverage: yes Preferred Pharmacy verified: [facility] [address] [place] [address] Insurance coverage verified: Payor: [employer] MEDICARE ADVANTAGE / Plan: [employer] HMO SNP [...] ED Bed Hold Comment Note - Audie Alvarez, RN - 10/16/2024 7:49 PM CDT Bed: 21 Expected date: 10/16/24 Expected time: 7:28 PM Means of arrival: Comments: Denis Jamison - documented in this encounter Plan of Treatment Upcoming Encounters Date Type Department Care Team (Late st Contact Info) Description 12/07/2024 7:30 AM CDT Office Visit [facility] Gastroenterology[address] [address] Melquiades Ken FNP [address] [address] Scheduled Referrals Name Type Priority Associated [...] 10:27 AM CDT HEMOGLOBIN AND HEMATOCRIT Routine 10/23/2024 9:24 AM CDT CBC WITH DIFFERENTIAL Routine 10/23/2024 4:55 AM CDT COMPREHENSIVE METABOLIC PANEL Routine 10/23/2024 4:55 AM CDT HEMOGLOBIN AND HEMATOCRIT Routine 10/22/2024 10:52 PM CDT POC GLUCOSE Routine 10/22/2024 12:49 PM CDT HEMOGLOBIN AND HEMATOCRIT Routine 10/22/2024 9:23 AM CDT CBC WITH DIFFERENTIAL Routine 10/22/2024 5:14 AM CDT COMPREHENSIVE METABOLIC PANEL Routine 10/22/2024 5:14 AM CDT HEMOGLOBIN AND HEMATOCRIT Routine 10/21/2024 10:15 PM CDT HEMOGLOBIN AND HEMATOCRIT Routine 10/21/2024 9:33 AM CDT POC GLUCOSE Routine 10/21/2024 7:55 AM CDT CBC WITH DIFFERENTIAL Routine 10/21/2024 6:11 AM CDT COMPREHENSIVE METABOLIC PANEL Routine 10/21/2024 6:11 AM CDT HEMOGLOBIN AND HEMATOCRIT Routine 10/20/2024 9:03 PM CDT POC GLUCOSE Routine 10/20/2024 5:03 PM CDT POC GLUCOSE Routine 10/20/2024 12:52 PM CDT HEMOGLOBIN AND HEMATOCRIT Routine 10/20/2024 9:17 AM CDT POC GLUCOSE Routine 10/20/2024 8:39 AM CDT CBC WITH DIFFERENTIAL Routine 10/20/2024 3:02 AM CDT COMPREHENSIVE METABOLIC PANEL Routine 10/20/2024 3:02 AM CDT HEMOGLOBIN AND HEMATOCRIT Routine 10/19/2024 7:38 PM CDT POC GLUCOSE Routine 10/19/2024 4:36 PM CDT POC GLUCOSE Routine 10/19/2024 1:19 PM CDT PATHOLOGY Pathology 10/19/2024 12:41 PM CDT HEMORRHOIDECTOMY 10/19/2024 12:0 0 PM CDT TRANSFUSE PACKED RED BLOOD CELLS [...] 5:52 AM CDT HEMOGLOBIN AND HEMATOCRIT Routine 10/18/2024 9:30 PM CDT POC GLUCOSE Routine 10/18/2024 4:21 PM CDT POC GLUCOSE Routine 10/18/2024 11:49 AM CDT CELL COUNT WITH DIFFERENTIAL, BODY FLUID Routine 10/18/2024 10:45 AM CDT CBC WITH DIFFERENTIAL Routine 10/18/2024 7:13 AM CDT C-REACTIVE PROTEIN Routine 10/18/2024 7: 13 AM CDT MAGNESIUM LEVEL Routine 10/18/2024 7:13 AM CDT COMPREHENSIVE METABOLIC PANEL Routine 10/18/2024 7:13 AM CDT HEMOGLOBIN AND HEMATOCRIT Routine 10/18/2024 12:21 AM CDT HEMOGLOBIN AND HEMATOCRIT Routine 10/17/2024 4:49 PM CDT COLONOSCOPY REPORT 10/17/2024 12 :29 PM CDT PATHOLOGY Pathology 10/17/2024 12:22 PM CDT TRANSFUSE PACKED RED BLOOD CELLS Routine 10/17/2024 8:42 AM CDT CBC WITH DIFFERENTIAL Routine 10/17/2024 5:56 AM CDT PHOSPHORUS Routine 10/17/2024 5:56 AM CDT MAGNESIUM LEVEL Routine 10/17/2024 5:56 AM CDT COMPREHENSIVE METABOLIC PANEL Routine 10/17/2024 5:56 AM CDT GI PATHOGEN PCR PANEL Stat 10/17/2024 3:10 AM CDT HELICOBACTER PYLORI ANTIGEN, STOOL Routine 10/17/2024 3:10 AM CDT HEMOGLOBIN AND HEMATOCRIT Routine 10/17/2024 12:37 AM CDT UPPER ENDOSCOPY REPORT 11:13 PM CDT LACTIC ACID Stat 10/16/2024 8:42 PM CDT CBC WITH DIFFERENTIAL Stat 10/16/2024 8:42 PM CDT PTT Stat 10/16/2024 8:42 PM CDT PROTIME-INR Stat 10/16/2024 8:42 PM CDT TYPE AND SCREEN Stat 10/16/2024 8:42 PM CDT MAGNESIUM LEVEL Stat 10/16/2024 8:42 PM CDT COMPREHENSIVE METABOLIC PANEL Stat 10/16/2024 8:42 PM CDT PREPARE RED BLOOD CELLS Routine 10/17/19 8:29 PM CDT PREPARE RED BLOOD CELLS Routine 10/17/19 8:29 PM CDT PREPARE RED BLOOD CELLS Routine 10/17/19 8:29 PM CDT PREPARE RED BLOOD CELLS Stat 10/17/19 8:29 PM CDT EKG 12-LEAD Stat 10/16/2024 8:23 PM CDT CRITICAL CARE Routine 10/16/2024 7:49 PM CDT documented in this encounter Results [...] needle course. Insertion of a 10-cm 5 [place] [employer] centesis catheter, through which approximately 2200 ml [...] needle course. Insertion of a 10-cm 5 [place] [employer] centesis catheter, through which approximately 2200 ml [...] AND HEMATOCRIT (10/23/2024 9:24 AM CDT) Pathologist [facility] HEMOGLOBIN 8.1(L) 12.0 - 16.0 g/dL 10/23/2024 9:34 AM CDT [facility] HEMATOCRIT 25.5(L) 36.0 - 46.0 % 10/23/2024 9:34 AM CDT [facility] Blood Venipuncture / Unknown 10/23/2024 9:24 AM CDT 10/23/2024 9:28 AM CDT Crescencio Aguero MD HEMATOLOGY ORDERABLES Final Res ult [facility] # [id number] [address] [place] [address] * (ABNORMAL) COMPREHENSIVE METABOLIC PANEL (10/23/2024 4:55 AM CDT) Pathologist [facility] SODIUM 135(L) 136 - 145 mmol/L 10/23/2024 6:27 AM CDT [facility] POTASSIUM 3.9 3.5 - 5.1 mmol/L 10/23/2024 6:27 AM CDT [facility] CHLORIDE 103 98 - 107 mmol/L 10/23/2024 6:27 AM CDT [facility] CO2 22 22 - 29 mmol/L 10/23/2024 6:27 AM CDT [facility] CALCIUM 8.0(L) 8.8 - 10.2 mg/dL 10/23/2024 6:27 AM [facility] BUN 8 8 - 23 mg/dL 10/23/2024 6:27 AM [facility] CREATININE 0.71 0.51 - 0.95 mg/dL 10/23/2024 6:27 AM [facility] GLUCOSE 103(H) 74 - 99 mg/dL 10/23/2024 6:27 AM [facility] TOTAL PROTEIN 5.1(L) 6.4 - 8.3 g/dL 10/23/2024 6:27 AM [facility] ALBUMIN 3.0(L) 3.5 - 5.2 g/dL 10/23/2024 6:27 AM [facility] BILIRUBIN TOTAL 0.4 0.0 - 1.0 mg/dL 10/23/2024 6:27 AM [facility] ALKALINE PHOSPHATASE 82 35 - 104 U/L 10/23/2024 6:27 AM [facility] AST 24 10 - 35 U/L 10/23/2024 6:27 AM [facility] ALT 18 <=35 U/L 10/23/2024 6:27 AM [facility] GFR >60 >=60 mL/min/1.7 3 sq meter 10/23/2024 6:27 AM [facility] Comment:eGFR calculated with 2020 CKD-EPI equation. Vegetarian diet, extremely high or low muscle mass, and may affect results. Cystatin C with Glomerular Filtration Rate is a suitable alternative for these patients. ANION GAP 10 9 - 20 mmol/L 10/23/2024 6:27 AM [facility] Blood Venipuncture / Unknown 10/23/2024 4:55 AM CDT 10/23/2024 5:54 AM [facility] us Jaden Guzmán MD CHEMISTRY ORDERABLES Final Resul t [facility] CLIA # [id number] [address] [address] [place] [address] * (ABNORMAL) CBC WITH DIFFERENTIAL (10/23/2024 4:55 AM CDT) [facility] WBC 6.2 4.8 - 10.8 K/uL 10/23/2024 5:51 AM CDT [facility] NRBCS 3(H) <1 % 10/23/2024 5:51 AM CDT [facility] RBC 2.79(L) 4.20 - 5.40 M/uL 10/23/2024 5:51 AM CDT [facility] HEMOGLOBIN 7.7(L) 12.0 - 16.0 g/dL 10/23/2024 5:51 [facility] 24.1(L) 36.0 - 46.0 % 10/23/2024 5:51 AM [facility] MCV 86.4 84.0 - 103.0 fL 10/23/2024 5:51 AM [facility] MCH 27.6 27.0 - 34.0 pg 10/23/2024 5:51 AM [facility] MCHC 32.0 30.0 - 35.0 g/dL 10/23/2024 5:51 AM [facility] PLATELETS 241 140 - 440 K/uL 10/23/2024 5:51 AM [facility] MPV 11.1 8.9 - 12.8 fL 10/23/2024 5:51 AM [facility] RDW 17.2(H) 11.0 - 14.5 % 10/23/2024 5:51 AM [facility] RDW-STDEV 53.6 37.0 - 54.0 fL 10/23/2024 5:51 AM CDT [facility] [employer] [facility] NEUTROPHILS 70 42 - 75 % 10/23/2024 5:51 AM CDT [facility] LYMPHOCYTES 12(L) 24 - 44 % 10/23/2024 5:51 AM CDT [facility] MONOCYTES 17(H) 2 - 10 % 10/23/2024 5:51 AM CDT [facility] EOSINOPHILS 1 0 - 7 % 10/23/2024 5:51 AM CDT [facility] BASOPHILS 0 0 - 1 % 10/23/2024 5:51 AM CDT [facility] IMMATURE GRANULOCYTES 1 0 - 2 % 10/23/2024 5:51 AM CDT [facility] NEUTROPHIL ABSOLUTE 4.34 2.00 - 8.00 K/uL 10/23/2024 5:51 AM CDT [facility] LYMPHOCYTE ABSOLUTE 0.75(L) 1.20 - 4.00 K/uL 10/23/2024 5:51 AM CDT [facility] MONOCYTE ABSOLUTE 1.04(H) 0.10 - 0.60 K/uL 10/23/2024 5:51 AM CDT [facility] EOSINOPHIL ABSOLUTE 0.05 0.00 - 0.70 K/uL 10/23/2024 5:51 AM CDT [facility] BASOPHILS ABSOLUTE 0.02 0.00 - 0.20 K/uL 10/23/2024 5:51 AM CDT [facility] IMMATURE GRANULOCYTES ABSOLUTE 0.03 0.00 - 0.10 K/uL 10/23/2024 5:51 AM CDT [facility] SMEAR REVIEWED: NN - No Action Needed 10/23/2024 5:51 AM T [facility] Blood Venipuncture / Unknown 10/23/2024 4:55 AM CDT 10/23/2024 5:42 AM CDT us Crescencio Aguero MD HEMATOLOGY ORDERABLES Final Res ult [facility] CLIA # [id number] [facility] [address] [place] [address] * (ABNORMAL) HEMOGLOBIN AND HEMATOCRIT (10/22/2024 10:52 PM CDT) [facility] HEMOGLOBIN 7.5(L) 12.0 - 16.0 g/dL 10/22/2024 11:01 PM CDT [facility] HEMATOCRIT 22.7(L) 36.0 - 46.0 % 10/22/2024 11:01 PM CDT [facility] Blood Venipuncture / Unknown 10/22/2024 10:52 PM CDT 10/22/2024 10:56 PM CDT us Crescencio Aguero MD HEMATOLOGY ORDERABLES Final Res ult Performing Organization Address City/[facility]/ZIP Co de Phone Number [facility] CLIA # [id number] [address] [id number] * POC GLUCOSE (10/22/2024 12:49 PM CDT) [facility] GLUCOSE POC 93 74 - 99 mg/dL 10/22/2024 12:49 PM CDT [facility] SPECIMEN SOURCE, GLUCOSE POC Capillary 10/22/2024 12:49 PM CDT [facility] Blood, whole 10/22/2024 12:4 9 PM CDT 10/22/2024 1:02 PM CDT us Jaden Guzmán MD POINT OF CARE TESTING Final Resu lt Performing Organization Address City/[facility]/ZIP Co de Phone Number [facility] CLIA # [id number] [address] [address] [place] [address] * (ABNORMAL) HEMOGLOBIN AND HEMATOCRIT (10/22/2024 9:23 AM CDT) [facility] HEMOGLOBIN 7.8(L) 12.0 - 16.0 g/dL 10/22/2024 9:35 AM CDT [facility] HEMATOCRIT 24.8(L) 36.0 - 46.0 % 10/22/2024 9:35 AM T [facility] Blood Venipuncture / Unknown 10/22/2024 9:23 AM CDT 10/22/2024 9:27 AM CDT us Crescencio Aguero MD HEMATOLOGY ORDERABLES Final Res ult [facility] CLIA # [id number] [address] [place] [address] [place] [address] * (ABNORMAL) COMPREHENSIVE METABOLIC PANEL (10/22/2024 5:14 AM CDT) SODIUM 137 136 - 145 mmol/L 10/22/2024 6:30 AM T [facility] POTASSIUM 3.8 3.5 - 5.1 mmol/L 10/22/2024 6:30 AM T [facility] CHLORIDE 105 98 - 107 mmol/L 10/22/2024 6:30 AM T [facility] CO2 24 22 - 29 mmol/L 10/22/2024 6:30 AM T [facility] CALCIUM 8.1(L) 8.8 - 10.2 mg/dL 10/22/2024 6:30 AM T [facility] BUN 7(L) 8 - 23 mg/dL 10/22/2024 6:30 AM T [facility] CREATININE 0.74 0.51 - 0.95 mg/dL 10/22/2024 6:30 AM T [facility] GLUCOSE 96 74 - 99 mg/dL 10/22/2024 6:30 AM T [facility] TOTAL PROTEIN 5.1(L) 6.4 - 8.3 g/dL 10/22/2024 6:30 AM T [facility] ALBUMIN 3.1(L) 3.5 - 5.2 g/dL 10/22/2024 6:30 AM [facility] BILIRUBIN TOTAL 0.4 0.0 - 1.0 mg/dL 10/22/2024 6:30 AM CDT [facility] ALKALINE PHOSPHATASE 77 35 - 104 U/L 10/22/2024 6:30 AM T [facility] AST 23 10 - 35 U/L 10/22/2024 6:30 AM CDT [facility] ALT 17 <=35 U/L 10/22/2024 6:30 AM T [facility] GFR >60 >=60 mL/min/1.7 3 sq meter 10/22/2024 6:30 AM T [facility] Comment:eGFR calculated with 2020 CKD-EPI equation. Vegetarian diet, extremely high or low muscle mass, and may affect results. Cystatin C with Glomerular Filtration Rate is a suitable alternative for these patients. ANION GAP 8(L) 9 - 20 mmol/L 10/22/2024 6:30 AM [facility] Blood Venipuncture / Unknown 10/22/2024 5:14 AM CDT 10/22/2024 5:47 AM CDT us Jdaen Guzmán MD CHEMISTRY ORDERABLES Final Resul t [facility] CLIA # [id number] [address] [place] [address] * (ABNORMAL) CBC WITH DIFFERENTIAL (10/22/2024 5:14 AM CDT) WBC 6.1 4.8 - 10.8 K/uL 10/22/2024 5:58 AM CDT [facility] NRBCS 2(H) <1 % 10/22/2024 5:58 AM CDT [facility] RBC 2.60(L) 4.20 - 5.40 M/uL 10/22/2024 5:58 AM CDT [facility] HEMOGLOBIN 7.2(L) 12.0 - 16.0 g/dL 10/22/2024 5:58 AM [facility] HEMATOCRIT 22.4(L) 36.0 - 46.0 % 10/22/2024 5:58 AM [facility] MCV 86.2 84.0 - 103.0 fL 10/22/2024 5:58 AM [facility] MCH 27.7 27.0 - 34.0 pg 10/22/2024 5:58 AM [facility] MCHC 32.1 30.0 - 35.0 g/dL 10/22/2024 5:58 AM [facility] PLATELETS 219 140 - 440 K/uL 10/22/2024 5:58 AM [facility] MPV 11.0 8.9 - 12.8 fL 10/22/2024 5:58 AM [facility] RDW 17.1(H) 11.0 - 14.5 % 10/22/2024 5:58 AM [facility] RDW-STDEV 53.0 37.0 - 54.0 fL 10/22/2024 5:58 AM [facility] NEUTROPHILS 65 42 - 75 % 10/22/2024 5:58 AM [facility] LYMPHOCYTES 17(L) 24 - 44 % 10/22/2024 5:58 AM [facility] MONOCYTES 17(H) 2 - 10 % 10/22/2024 5:58 AM [facility] EOSINOPHILS 0 0 - 7 % 10/22/2024 5:58 AM [facility] BASOPHILS 1 0 - 1 % 10/22/2024 5:58 AM [facility] IMMATURE GRANULOCYTES 0 0 - 2 % 10/22/2024 5:58 AM [facility] NEUTROPHIL ABSOLUTE 4.00 2.00 - 8.00 K/uL 10/22/2024 5:58 AM [facility] LYMPHOCYTE ABSOLUTE 1.03(L) 1.20 - 4.00 K/uL 10/22/2024 5:58 AM [facility] MONOCYTE ABSOLUTE 1.03(H) 0.10 - 0.60 K/uL 10/22/2024 5:58 AM CDT [facility] EOSINOPHIL ABSOLUTE 0.02 0.00 - 0.70 K/uL 10/22/2024 5:58 AM CDT [facility] BASOPHILS ABSOLUTE 0.03 0.00 - 0.20 K/uL 10/22/2024 5:58 AM CDT [facility] IMMATURE GRANULOCYTES ABSOLUTE 0.02 0.00 - 0.10 K/uL 10/22/2024 5:58 AM CDT [facility] SMEAR REVIEWED: NN - No Action Needed 10/22/2024 5:58 AM CDT [facility] Blood Venipuncture / Unknown 10/22/2024 5:14 AM CDT 10/22/2024 5:44 AM CDT Crescencio Aguero MD HEMATOLOGY ORDERABLES Final Res ult [facility] CLIA # [id number] [address] [address] * (ABNORMAL) HEMOGLOBIN AND HEMATOCRIT (10/21/2024 10:15 PM CDT) [facility] HEMOGLOBIN 7.3(L) 12.0 - 16.0 g/dL 10/21/2024 10:38 PM CDT [facility] HEMATOCRIT 22.8(L) 36.0 - 46.0 % 10/21/2024 10:38 PM CDT [facility] Blood Venipuncture / Unknown 10/21/2024 10:15 PM CDT 10/21/2024 10:34 PM CDT Crescencio Aguero MD HEMATOLOGY ORDERABLES Final Res ult [facility] CLIA # [id number] [address] [address] [place] [address] * (ABNORMAL) HEMOGLOBIN AND HEMATOCRIT (10/21/2024 9:33 AM CDT) [facility] HEMOGLOBIN 7.4(L) 12.0 - 16.0 g/dL 10/21/2024 9:47 AM CDT [facility] HEMATOCRIT 22.5(L) 36.0 - 46.0 % 10/21/2024 9:47 AM CDT [facility] Blood Venipuncture / Unknown 10/21/2024 9:33 AM CDT 10/21/2024 9:45 AM CDT us Crescencio Aguero MD HEMATOLOGY ORDERABLES Final Res ult Performing Organization Address [facility]/ZIP Co de Phone Number [facility] CLIA # [id number] [address] [address] * (ABNORMAL) POC GLUCOSE (10/21/2024 7:55 AM CDT) [facility] GLUCOSE POC 100(H) 74 - 99 mg/dL 10/21/2024 7:55 AM CDT [facility] SPECIMEN SOURCE, GLUCOSE POC Capillary 10/21/2024 7:55 AM CDT [facility] Blood, whole 10/21/2024 7:55 AM CDT 10/21/2024 8:04 AM CDT us Jaden Guzmán MD POINT OF CARE TESTING Final Resu lt [facility] CLIA # [id number] [address] [address] * (ABNORMAL) COMPREHENSIVE METABOLIC PANEL (10/21/2024 6:11 AM CDT) [facility] SODIUM 136 136 - 145 mmol/L 10/21/2024 7:07 AM [facility] POTASSIUM 3.8 3.5 - 5.1 mmol/L 10/21/2024 7:07 AM [facility] CHLORIDE 104 98 - 107 mmol/L 10/21/2024 7:07 AM [facility] CO2 24 22 - 29 mmol/L 10/21/2024 7:07 AM [facility] CALCIUM 8.3(L) 8.8 - 10.2 mg/dL 10/21/2024 7:07 AM [facility] BUN 6(L) 8 - 23 mg/dL 10/21/2024 7:07 AM [facility] CREATININE 0.83 0.51 - 0.95 mg/dL 10/21/2024 7:07 AM [facility] GLUCOSE 104(H) 74 - 99 mg/dL 10/21/2024 7:07 AM [facility] TOTAL PROTEIN 5.3(L) 6.4 - 8.3 g/dL 10/21/2024 7:07 AM [facility] ALBUMIN 3.3(L) 3.5 - 5.2 g/dL 10/21/2024 7:07 AM [facility] BILIRUBIN TOTAL 0.3 0.0 - 1.0 mg/dL 10/21/2024 7:07 AM [facility] ALKALINE PHOSPHATASE 76 35 - 104 U/L 10/21/2024 7:07 AM [facility] AST 24 10 - 35 U/L 10/21/2024 7:07 AM [facility] ALT 19 <=35 U/L 10/21/2024 7:07 AM [facility] GFR >60 >=60 mL/min/1.7 3 sq meter 10/21/2024 7:07 AM [facility] Comment:eGFR calculated with 2020 CKD-EPI equation. Vegetarian diet, extremely high or low muscle mass, and may affect results. Cystatin C with Glomerular Filtration Rate is a suitable alternative for these patients. ANION GAP 8(L) 9 - 20 mmol/L 10/21/2024 7:07 AM T [facility] Blood Venipuncture / Unknown 10/21/2024 6:11 AM CDT 10/21/2024 6:25 AM CDT us Jaden Guzmán MD CHEMISTRY ORDERABLES Final Resul t [facility] CLIA # [id number] [address] [address] [place] [address] * (ABNORMAL) CBC WITH DIFFERENTIAL (10/21/2024 6:11 AM CDT) Pathologist [facility] WBC 8.8 4.8 - 10.8 K/uL 10/21/2024 6:36 AM T [facility] NRBCS 2(H) <1 % 10/21/2024 6:36 AM T [facility] RBC 2.75(L) 4.20 - 5.40 M/uL 10/21/2024 6:36 AM T [facility] HEMOGLOBIN 7.8(L) 12.0 - 16.0 g/dL 10/21/2024 6:36 AM T [facility] HEMATOCRIT 23.7(L) 36.0 - 46.0 % 10/21/2024 6:36 AM CDT [facility] MCV 86.2 84.0 - 103.0 fL 10/21/2024 6:36 AM T [facility] MCH 28.4 27.0 - 34.0 pg 10/21/2024 6:36 AM T [facility] MCHC 32.9 30.0 - 35.0 g/dL 10/21/2024 6:36 AM T [facility] PLATELETS 229 140 - 440 K/uL 10/21/2024 6:36 AM T [facility] MPV 11.2 8.9 - 12.8 fL 10/21/2024 6:36 AM [facility] RDW 17.2(H) 11.0 - 14.5 % 10/21/2024 6:36 AM [facility] RDW-STDEV 53.2 37.0 - 54.0 fL 10/21/2024 6:36 AM [facility] NEUTROPHILS 71 42 - 75 % 10/21/2024 6:36 AM [facility] LYMPHOCYTES 13(L) 24 - 44 % 10/21/2024 6:36 AM [facility] MONOCYTES 15(H) 2 - 10 % 10/21/2024 6:36 AM [facility] EOSINOPHILS 0 0 - 7 % 10/21/2024 6:36 AM [facility] BASOPHILS 0 0 - 1 % 10/21/2024 6:36 AM [facility] IMMATURE GRANULOCYTES 1 0 - 2 % 10/21/2024 6:36 AM [facility] NEUTROPHIL ABSOLUTE 6.26 2.00 - 8.00 K/uL 10/21/2024 6:36 AM [facility] LYMPHOCYTE ABSOLUTE 1.16(L) 1.20 - 4.00 K/uL 10/21/2024 6:36 AM [facility] MONOCYTE ABSOLUTE 1.31(H) 0.10 - 0.60 K/uL 10/21/2024 6:36 AM [facility] EOSINOPHIL ABSOLUTE 0.01 0.00 - 0.70 K/uL 10/21/2024 6:36 AM [facility] BASOPHILS ABSOLUTE 0.03 0.00 - 0.20 K/uL 10/21/2024 6:36 AM [facility] IMMATURE GRANULOCYTES ABSOLUTE 0.05 0.00 - 0.10 K/uL 10/21/2024 6:36 AM [facility] SMEAR REVIEWED: NN - No Action Needed 10/21/2024 6:36 AM [facility] Blood Venipuncture / Unknown 10/21/2024 6:11 AM CDT 10/21/2024 6:24 AM CDT Crescencio Aguero MD HEMATOLOGY ORDERABLES Final Res ult Performing Organization Address [facility] Co de Phone Number [facility] CLIA # [id number] [address] [address] * (ABNORMAL) HEMOGLOBIN AND HEMATOCRIT (10/20/2024 9:03 PM CDT) HEMOGLOBIN 7.6(L) 12.0 - 16.0 g/dL 10/20/2024 9:15 PM CDT [facility] HEMATOCRIT 23.3(L) 36.0 - 46.0 % 10/20/2024 9:15 PM CDT [facility] Blood Venipuncture / Unknown 10/20/2024 9:03 PM CDT 10/20/2024 9:11 PM CDT Crescencio Aguero MD HEMATOLOGY ORDERABLES Final Res ult Performing Organization Address [facility] Co de Phone Number [facility] CLIA # [id number] [address] [address] * (ABNORMAL) POC GLUCOSE (10/20/2024 5:03 PM CDT) GLUCOSE POC 163(H) 74 - 99 mg/dL 10/20/2024 5:03 PM CDT [facility] SPECIMEN SOURCE, GLUCOSE POC Capillary 10/20/2024 5:03 PM CDT [facility] Blood, whole 10/20/2024 5:03 PM CDT 10/20/2024 5:19 PM CDT Jaden Guzmán MD POINT OF CARE TESTING Final Resu lt Performing Organization Address City/[facility]/ZIP Co de Phone Number [facility] CLIA # [id number] [address] [address] [place] [address] * (ABNORMAL) POC GLUCOSE (10/20/2024 12:52 PM CDT) GLUCOSE POC 131(H) 74 - 99 mg/dL 10/20/2024 12:52 PM CDT [facility] SPECIMEN SOURCE, GLUCOSE POC Capillary 10/20/2024 12:52 PM CDT [facility] Blood, whole 10/20/2024 12:5 2 PM CDT 10/20/2024 1:00 PM CDT us Jaden Guzmán MD POINT OF CARE TESTING Final Resu lt Performing Organization Address [facility] de Phone Number [facility] CLIA # [id number] [address] [address] [place] [address] * (ABNORMAL) HEMOGLOBIN AND HEMATOCRIT (10/20/2024 9:17 AM CDT) [facility] HEMOGLOBIN 7.9(L) 12.0 - 16.0 g/dL 10/20/2024 9:49 AM CDT [facility] HEMATOCRIT 23.8(L) 36.0 - 46.0 % 10/20/2024 9:49 AM CDT [facility] Blood Venipuncture / Unknown 10/20/2024 9:17 AM CDT 10/20/2024 9:39 AM CDT us Crescencio Aguero MD HEMATOLOGY ORDERABLES Final Res ult Performing Organization Address [facility] Co de Phone Number [facility] CLIA # [id number] [address] [address] [place] [address] * (ABNORMAL) POC GLUCOSE (10/20/2024 8:39 AM CDT) GLUCOSE POC 121(H) 74 - 99 mg/dL 10/20/2024 8:39 AM CDT [facility] SPECIMEN SOURCE, GLUCOSE POC Capillary 10/20/2024 8:39 AM CDT [facility] Blood, whole 10/20/2024 8:39 AM CDT 10/20/2024 8:47 AM CDT us Jaden Guzmán MD POINT OF CARE TESTING Final Resu lt [facility] CLIA # [id number] [facility] [address] [place] [address] * (ABNORMAL) COMPREHENSIVE METABOLIC PANEL (10/20/2024 3:02 AM CDT) Pathologist [facility] SODIUM 134(L) 136 - 145 mmol/L 10/20/2024 3:58 AM CDT [facility] POTASSIUM 4.1 3.5 - 5.1 mmol/L 10/20/2024 3:58 AM CDT [facility] CHLORIDE 102 98 - 107 mmol/L 10/20/2024 3:58 AM CDT [facility] CO2 22 22 - 29 mmol/L 10/20/2024 3:58 AM T [facility] CALCIUM 8.1(L) 8.8 - 10.2 mg/dL 10/20/2024 3:58 AM CDT [facility] BUN 7(L) 8 - 23 mg/dL 10/20/2024 3:58 AM CDT [facility] CREATININE 0.78 0.51 - 0.95 mg/dL 10/20/2024 3:58 AM CDT [facility] GLUCOSE 113(H) 74 - 99 mg/dL 10/20/2024 3:58 AM CDT [facility] TOTAL PROTEIN 5.6(L) 6.4 - 8.3 g/dL 10/20/2024 3:58 AM CDT [facility] ALBUMIN 3.4(L) 3.5 - 5.2 g/dL 10/20/2024 3:58 AM CDT [facility] BILIRUBIN TOTAL 0.4 0.0 - 1.0 mg/dL 10/20/2024 3:58 AM CDT [facility] ALKALINE PHOSPHATASE 75 35 - 104 U/L 10/20/2024 3:58 AM CDT [facility] AST 23 10 - 35 U/L 10/20/2024 3:58 AM CDT [facility] ALT 17 <=35 U/L 10/20/2024 3:58 AM CDT [facility] GFR >60 >=60 mL/min/1.7 3 sq meter 10/20/2024 3:58 AM T [facility] Comment:eGFR calculated with 2020 CKD-EPI equation. Vegetarian diet, extremely high or low muscle mass, and may affect results. Cystatin C with Glomerular Filtration Rate is a suitable alternative for these patients. ANION GAP 10 9 - 20 mmol/L 10/20/2024 3:58 AM T [facility] Blood Venipuncture / Unknown 10/20/2024 3:02 AM CDT 10/20/2024 3:23 AM CDT us Jaden Guzmán MD CHEMISTRY ORDERABLES Final Resul t [facility] CLIA # [id number] [address] [place] [address] [place], [place] [id number] * (ABNORMAL) CBC WITH DIFFERENTIAL (10/20/2024 3:02 AM CDT) WBC 13.7(H) 4.8 - 10.8 K/uL 10/20/2024 3:24 AM CDT [facility] NRBCS 1(H) <1 % 10/20/2024 3:24 AM [facility] RBC 2.92(L) 4.20 - 5.40 M/uL 10/20/2024 3:24 AM [facility] HEMOGLOBIN 8.2(L) 12.0 - 16.0 g/dL 10/20/2024 3:24 AM [facility] HEMATOCRIT 24.8(L) 36.0 - 46.0 % 10/20/2024 3:24 AM [facility] MCV 84.9 84.0 - 103.0 fL 10/20/2024 3:24 AM [facility] MCH 28.1 27.0 - 34.0 pg 10/20/2024 3:24 AM [facility] MCHC 33.1 30.0 - 35.0 g/dL 10/20/2024 3:24 AM [facility] PLATELETS 240 140 - 440 K/uL 10/20/2024 3:24 AM [facility] MPV 11.3 8.9 - 12.8 fL 10/20/2024 3:24 AM [facility] RDW 17.0(H) 11.0 - 14.5 % 10/20/2024 3:24 AM [facility] RDW-STDEV 51.3 37.0 - 54.0 fL 10/20/2024 3:24 AM [facility] NEUTROPHILS 69 42 - 75 % 10/20/2024 3:24 AM [facility] LYMPHOCYTES 13(L) 24 - 44 % 10/20/2024 3:24 AM [facility] MONOCYTES 17(H) 2 - 10 % 10/20/2024 3:24 AM [facility] EOSINOPHILS 0 0 - 7 % 10/20/2024 3:24 AM [facility] BASOPHILS 0 0 - 1 % 10/20/2024 3:24 AM [facility] IMMATURE GRANULOCYTES 1 0 - 2 % 10/20/2024 3:24 AM [facility] NEUTROPHIL ABSOLUTE 9.51(H) 2.00 - 8.00 K/uL 10/20/2024 3:24 AM CDT [facility] LYMPHOCYTE ABSOLUTE 1.79 1.20 - 4.00 K/uL 10/20/2024 3:24 AM CDT [facility] MONOCYTE ABSOLUTE 2.27(H) 0.10 - 0.60 K/uL 10/20/2024 3:24 AM CDT [facility] EOSINOPHIL ABSOLUTE 0.01 0.00 - 0.70 K/uL 10/20/2024 3:24 AM CDT [facility] BASOPHILS ABSOLUTE 0.03 0.00 - 0.20 K/uL 10/20/2024 3:24 AM CDT [facility] IMMATURE GRANULOCYTES ABSOLUTE 0.10 0.00 - 0.10 K/uL 10/20/2024 3:24 AM CDT [facility] SMEAR REVIEWED: NA - Not Applicable 10/20/2024 3:24 AM CDT [facility] Blood Venipuncture / Unknown 10/20/2024 3:02 AM CDT 10/20/2024 3:15 AM CDT us Crescencio Aguero MD HEMATOLOGY ORDERABLES Final Res ult [facility] CLIA # [id number] [address] [place] [address] * (ABNORMAL) HEMOGLOBIN AND HEMATOCRIT (10/19/2024 7:38 PM CDT) [facility] HEMOGLOBIN 7.8(L) 12.0 - 16.0 g/dL 10/19/2024 7:55 PM CDT [facility] HEMATOCRIT 23.5(L) 36.0 - 46.0 % 10/19/2024 7:55 PM CDT [facility] Blood Venipuncture / Unknown 10/19/2024 7:38 PM CDT 10/19/2024 7:47 PM CDT Crescencio Aguero MD HEMATOLOGY ORDERABLES Final Res ult Performing Organization Address [facility]/ZIP Co de Phone Number [facility] CLIA # [id number] [address] [address] * (ABNORMAL) POC GLUCOSE (10/19/2024 4:36 PM CDT) GLUCOSE POC 146(H) 74 - 99 mg/dL 10/19/2024 4:36 PM CDT [facility] SPECIMEN SOURCE, GLUCOSE POC Capillary 10/19/2024 4:36 PM CDT [facility] COMMENT, GLU POC Alerted Nurse/CHARLA/DR 10/19/2024 4:36 PM CDT [facility] Blood, whole 10/19/2024 4:36 PM CDT 10/19/2024 4:52 PM CDT Jaden Guzmán MD POINT OF CARE TESTING Final Resu lt Performing Organization Address City/[facility]/ZIP Co de Phone Number [facility] CLIA # [id number] [facility] [address] * TRANSFUSE RED BLOOD CELLS (10/19/2024 1:19 PM CDT) Jaden Guzmán MD BLOOD TRANSFUSION ORDERABLES Fin al Result * TRANSFUSE RED BLOOD CELLS (10/19/2024 1:19 PM CDT) Jaden Guzmán MD BLOOD TRANSFUSION ORDERABLES Fin al Result * (ABNORMAL) POC GLUCOSE (10/19/2024 1:19 PM CDT) GLUCOSE POC 119(H) 74 - 99 mg/dL 10/19/2024 1:19 PM CDT [facility] SPECIMEN SOURCE, GLUCOSE POC Capillary 10/19/2024 1:19 PM CDT [facility] Blood, whole 10/19/2024 1:19 PM CDT 10/19/2024 1:30 PM CDT us Jaden Guzmán MD POINT OF CARE TESTING Final Resu lt [facility] CLIA # [id number] [facility] [address] [address] [place] [address] * PATHOLOGY (10/19/2024 12:41 PM CDT) CASE REPORT Surgical Pathology Report Case: [id number] Authorizing Provider: Crescencio Aguero MD Collected: 10/19/2024 12:41 PM Ordering Location: [facility] Received: 10/19/2024 01:44 PM Operating Room Pathologist: Murray Fernández MD Specimen: Hemorrhoids 3:38 PM CDT [facility] FINAL DIAGNOSIS A. Hemorrhoids, excision - Hemorrhoids - Negative for dysplasia or malignancy Murray Fernández MD [id number] 3:38 PM CDT [facility] at 1538 CDT GROSS DESCRIPTION A. Received in a container of formalin labeled Main -hemorrhoids are 3 lopez-topete, wrinkled skin fragments, that range from 1.5 to 2.3 cm in greatest dimension. Sectioning reveals hemorrhagic, mildly edematous cut surfaces. No discrete masses or lesions are grossly identified. Um Specialist sections are submitted in A1. Grossed by: Kita Hobbs MS, PA (ASCP)CM 3:38 PM CDT [facility] OPERATIVE PROCEDURE 1: HEMORRHOIDECTOMY 3:38 PM CDT [facility] COMMENT The [employer] voice-activated dictation system may have been used [...] determined by the Diagnostic Immunohistochemistry Laboratory of [facility] in compliance with CLIA'88 regulations. Some of these tests rely on the use of analyte specific reagents and are subject to specific labeling requirements by the FDA. All controls show appropriate reactivity. This testing was developed by the Diagnostic Immunohistochemistry Laboratory of [facility]. It has not been cleared or approved by the FDA. The FDA has determined that such clearance or approval is not necessary. 3:38 PM CDT [facility] Tissue (Hemorrhoids) Collection / Unknown 10/19/2024 12:41 PM CDT 10/19/2024 1:44 PM CDT Crescencio Aguero MD PATHOLOGY/CYTOLOGY ORDERABLES F inal Result Performing Organization Address City/[facility]/ZIP Co de Phone Number [facility] CLIA # [id number] [address] [place] [address] * (ABNORMAL) POC GLUCOSE (10/19/2024 7:20 AM CDT) GLUCOSE POC 111(H) 74 - 99 mg/dL 10/19/2024 7:20 AM CDT [facility] SPECIMEN SOURCE, GLUCOSE POC Capillary 10/19/2024 7:20 AM CDT [facility] Blood, whole 10/19/2024 7:20 AM CDT 10/19/2024 7:56 AM CDT Uri Rojas MD POINT OF CARE TESTING Fin al Result Performing Organization Address City/[facility]/ZIP Co de Phone Number [facility] CLIA # [id number] [address] [place] [address] * PREPARE RED BLOOD CELLS (10/19/2024 6:29 AM CDT) COMPONENT TYPE [id number] [facility] [place] COMPONENT IDENTIFICATION [id number] [facility] [place] UNIT ABO O [facility] [place] UN[facility] RH [facility] [place] CROSSMATCH Compatible [facility] [place] COMPONENT STATUS Transfused ME Y [facility] -- [place] COMPONENT EXPIRATION DATE/TIME [id number] [facility] [place] COMPONENT CODING SYSTEM 9500 [facility] [place] VOLUME, BLOOD PRODUCT 350 [facility] [place] 10/19/2024 6:29 AM CDT Andrey Tanner MD LAB TRANSFUSION ORDERAB LES Edited Result - Final [facility] [place] CLIA#[id number] [address] [place] [address], * PREPARE RED BLOOD CELLS (10/19/2024 6:09 AM CDT) COMPONENT TYPE [id number] [facility] [place] COMPONENT IDENTIFICATION [id number] [facility] [place] UNIT ABO O [facility] [place] UNIT RH NEG [facility] [place] CROSSMATCH Compatible [facility] [place] COMPONENT STATUS Returned [facility] -- [place] COMPONENT EXPIRATION DATE/TIME [id number] [facility] [place] COMPONENT CODING SYSTEM 9500 [facility] [place] VOLUME, BLOOD PRODUCT 350 [facility] [place] Other, specify 10/19/2024 6: 09 AM CDT Andrey Tanner MD LAB TRANSFUSION ORDERAB LES Edited Result - Final [facility] [place] CLIA#[id number] [address] [place] [address], * PREPARE RED BLOOD CELLS (10/19/2024 6:09 AM CDT) [facility] COMPONENT TYPE [id number] [facility] [place] COMPONENT IDENTIFICATION [id number] [facility] [place] UNIT ABO O [facility] [place] UNIT RH NEG [facility] [place] CROSSMATCH Compatible [facility] [place] COMPONENT STATUS Returned [facility] -- [place] COMPONENT EXPIRATION DATE/TIME [id number] [facility] [place] COMPONENT CODING SYSTEM 9500 [facility] [place] VOLUME, BLOOD PRODUCT 350 [facility] [place] Other, specify 10/19/2024 6: 09 AM CDT Crescencio Aguero MD LAB TRANSFUSION ORDERABLES Edit ed Result - Final [facility] [employer] [facility] [place] CLIA#[id number] [address] [place] [address], * (ABNORMAL) CBC WITH DIFFERENTIAL (10/19/2024 5:52 AM CDT) [facility] WBC 7.7 4.8 - 10.8 K/uL 10/19/2024 6:12 AM CDT [facility] NRBCS 1(H) <1 % 10/19/2024 6:12 AM CDT [facility] RBC 2.38(L) 4.20 - 5.40 M/uL 10/19/2024 6:12 AM CDT [facility] HEMOGLOBIN 6.7(LL) 12.0 - 16.0 g/dL 10/19/2024 6:12 AM T [facility] HEMATOCRIT 20.3(L) 36.0 - 46.0 % 10/19/2024 6:12 [facility] MCV 85.3 84.0 - 103.0 fL 10/19/2024 6:12 AM [facility] MCH 28.2 27.0 - 34.0 pg 10/19/2024 6:12 AM [facility] MCHC 33.0 30.0 - 35.0 g/dL 10/19/2024 6:12 AM [facility] PLATELETS 174 140 - 440 K/uL 10/19/2024 6:12 AM [facility] MPV 10.8 8.9 - 12.8 fL 10/19/2024 6:12 AM [facility] RDW 17.1(H) 11.0 - 14.5 % 10/19/2024 6:12 AM [facility] RDW-STDEV 51.4 37.0 - 54.0 fL 10/19/2024 6:12 AM [facility] NEUTROPHILS 67 42 - 75 % 10/19/2024 6:12 AM [facility] LYMPHOCYTES 12(L) 24 - 44 % 10/19/2024 6:12 AM [facility] MONOCYTES 20(H) 2 - 10 % 10/19/2024 6:12 AM [facility] EOSINOPHILS 0 0 - 7 % 10/19/2024 6:12 AM [facility] BASOPHILS 0 0 - 1 % 10/19/2024 6:12 AM [facility] IMMATURE GRANULOCYTES 1 0 - 2 % 10/19/2024 6:12 AM [facility] NEUTROPHIL ABSOLUTE 5.12 2.00 - 8.00 K/uL 10/19/2024 6:12 AM [facility] LYMPHOCYTE ABSOLUTE 0.91(L) 1.20 - 4.00 K/uL 10/19/2024 6:12 AM [facility] MONOCYTE ABSOLUTE 1.55(H) 0.10 - 0.60 K/uL 10/19/2024 6:12 AM [facility] EOSINOPHIL ABSOLUTE 0.01 0.00 - 0.70 K/uL 10/19/2024 6:12 AM CDT [facility] BASOPHILS ABSOLUTE 0.03 0.00 - 0.20 K/uL 10/19/2024 6:12 AM CDT [facility] IMMATURE GRANULOCYTES ABSOLUTE 0.05 0.00 - 0.10 K/uL 10/19/2024 6:12 AM CDT [facility] SMEAR REVIEWED: NA - Not Applicable 10/19/2024 6:12 AM CDT [facility] Blood Venipuncture / Unknown 10/19/2024 5:52 AM CDT 10/19/2024 6:03 AM CDT Crescencio Aguero MD HEMATOLOGY ORDERABLES Final Res ult Performing Organization Address [facility]/ZIP Co de Phone Number [facility] CLIA # [id number] [address] [address] * MAGNESIUM LEVEL (10/19/2024 5:52 AM CDT) MAGNESIUM 2.2 1.6 - 2.4 mg/dL 10/19/2024 6:41 AM CDT [facility] Blood Venipuncture / Unknown 10/19/2024 5:52 AM CDT 10/19/2024 6:03 AM CDT Jeb Alvarez III, DO CHEMISTRY ORDERABLES Zaida l Result Performing Organization Address City/[facility]/ZIP Co de Phone Number [facility] CLIA # [id number] [address] [address] * (ABNORMAL) HEMOGLOBIN AND HEMATOCRIT (10/18/2024 9:30 PM CDT) HEMOGLOBIN 7.0(L) 12.0 - 16.0 g/dL 10/18/2024 9:58 PM CDT [facility] HEMATOCRIT 21.2(L) 36.0 - 46.0 % 10/18/2024 9:58 PM CDT [facility] Blood Venipuncture / Unknown 10/18/2024 9:30 PM CDT 10/18/2024 9:49 PM CDT Crescencio Aguero MD HEMATOLOGY ORDERABLES Final Res ult Performing Organization Address [facility]/ZIP Co de Phone Number [facility] CLIA # [id number] [address] [address] [place] [address] * (ABNORMAL) POC GLUCOSE (10/18/2024 4:21 PM CDT) GLUCOSE POC 109(H) 74 - 99 mg/dL 10/18/2024 4:21 PM CDT [facility] SPECIMEN SOURCE, GLUCOSE POC Capillary 10/18/2024 4:21 PM CDT [facility] Blood, whole 10/18/2024 4:21 PM CDT 10/18/2024 4:29 PM CDT us Uri Rojas MD POINT OF CARE TESTING Fin al Result Performing Organization Address [facility] Co de Phone Number [facility] CLIA # [id number] [address] [address] [place] [address] * (ABNORMAL) POC GLUCOSE (10/18/2024 11:49 AM CDT) GLUCOSE POC 124(H) 74 - 99 mg/dL 10/18/2024 11:49 AM CDT [facility] SPECIMEN SOURCE, GLUCOSE POC Capillary 10/18/2024 11:49 AM CDT [facility] Blood, whole 10/18/2024 11:4 9 AM CDT 10/18/2024 12:00 PM CDT us Jeb Alvarez III, DO POINT OF CARE TESTING Fin al Result Performing Organization Address [facility]/ZIP Co de Phone Number [facility] CLIA # [id number] [address] [address] * CELL COUNT WITH DIFFERENTIAL, BODY FLUID (10/18/2024 10:45 AM CDT) APPEARANCE, BODY FLUID Clear 10/18/2024 11:34 AM CDT [facility] COLOR, FLD Colorless 10/18/2024 11:34 AM CDT [facility] TOTAL NUCLEATED CELLS, FLD (AUTO) 81 No Ref Range Estab /ul 10/18/2024 11:34 AM CDT [facility] TOTAL RBC'S, FLD (AUTO) <3,000 No Ref Range Estab /ul 10/18/2024 11:34 AM CDT [facility] NEUTROPHILS, FLD 10 No Ref Range Estab % 10/18/2024 11:34 AM CDT [facility] LYMPHOCYTE, FLD 26 No Ref Range Estab % 10/18/2024 11:34 AM CDT [facility] MONOCYTE/MACROP HUI, FLD 62 No Ref Range Estab % 10/18/2024 11:34 AM CDT [facility] MESOTHELIAL FLD 3 No Ref Range Estab % 10/18/2024 11:34 AM T [facility] Body fluid ENTIRE SEROUS MEMBRANE OF PERITONEUM / Unknown Collection / Unknown 10/18/2024 10:45 AM CDT 10/18/2024 10:49 AM CDT us Jeb Alvarez III, DO BODY FLUIDS AND STOOLS Fi nal Result Performing Organization Address [facility] Co de Phone Number [facility] CLIA # [id number] [address] [address] * (ABNORMAL) C-REACTIVE PROTEIN (10/18/2024 7:13 AM CDT) [facility] CRP 10.6(H) 0.0 - 5.0 mg/L 10/18/2024 11:08 AM CDT [facility] Blood Venipuncture / Unknown 10/18/2024 7:13 AM CDT 10/18/2024 7:19 AM CDT us Jeb Alvarez III, DO CHEMISTRY ORDERABLES Zaida l Result [facility] CLIA # [id number] [id number] [place] [address] * (ABNORMAL) CBC WITH DIFFERENTIAL (10/18/2024 7:13 AM CDT) [facility] WBC 9.7 4.8 - 10.8 K/uL 10/18/2024 7:22 AM T [facility] NRBCS 1(H) <1 % 10/18/2024 7:22 AM [facility] RBC 2.85(L) 4.20 - 5.40 M/uL 10/18/2024 7:22 AM T [facility] HEMOGLOBIN 8.0(L) 12.0 - 16.0 g/dL 10/18/2024 7:22 AM T [facility] HEMATOCRIT 23.8(L) 36.0 - 46.0 % 10/18/2024 7:22 AM T [facility] MCV 83.5(L) 84.0 - 103.0 fL 10/18/2024 7:22 AM [facility] MCH 28.1 27.0 - 34.0 pg 10/18/2024 7:22 AM T [facility] MCHC 33.6 30.0 - 35.0 g/dL 10/18/2024 7:22 AM [facility] PLATELETS 207 140 - 440 K/uL 10/18/2024 7:22 AM [facility] MPV 11.9 8.9 - 12.8 fL 10/18/2024 7:22 AM [facility] RDW 16.6(H) 11.0 - 14.5 % 10/18/2024 7:22 AM [facility] RDW-STDEV 50.0 37.0 - 54.0 fL 10/18/2024 7:22 AM [facility] NEUTROPHILS 72 42 - 75 % 10/18/2024 7:22 AM [facility] LYMPHOCYTES 13(L) 24 - 44 % 10/18/2024 7:22 AM [facility] MONOCYTES 15(H) 2 - 10 % 10/18/2024 7:22 AM [facility] EOSINOPHILS 0 0 - 7 % 10/18/2024 7:22 AM [facility] BASOPHILS 0 0 - 1 % 10/18/2024 7:22 AM [facility] IMMATURE GRANULOCYTES 1 0 - 2 % 10/18/2024 7:22 AM [facility] NEUTROPHIL ABSOLUTE 6.97 2.00 - 8.00 K/uL 10/18/2024 7:22 AM [facility] LYMPHOCYTE ABSOLUTE 1.21 1.20 - 4.00 K/uL 10/18/2024 7:22 AM [facility] MONOCYTE ABSOLUTE 1.40(H) 0.10 - 0.60 K/uL 10/18/2024 7:22 AM [facility] EOSINOPHIL ABSOLUTE 0.01 0.00 - 0.70 K/uL 10/18/2024 7:22 AM [facility] BASOPHILS ABSOLUTE 0.03 0.00 - 0.20 K/uL 10/18/2024 7:22 AM [facility] IMMATURE GRANULOCYTES ABSOLUTE 0.06 0.00 - 0.10 K/uL 10/18/2024 7:22 AM [facility] SMEAR REVIEWED: NA - Not Applicable 10/18/2024 7:22 AM CDT [facility] Blood Venipuncture / Unknown 10/18/2024 7:13 AM CDT 10/18/2024 7:19 AM CDT Crescencio Aguero MD HEMATOLOGY ORDERABLES Final Res ult Performing Organization Address [facility] Co de Phone Number [facility] CLIA # [id number] [address] [address] * MAGNESIUM LEVEL (10/18/2024 7:13 AM CDT) [facility] MAGNESIUM 2.3 1.6 - 2.4 mg/dL 10/18/2024 7:53 AM CDT [facility] Blood Venipuncture / Unknown 10/18/2024 7:13 AM CDT 10/18/2024 7:19 AM CDT Jeb Alvarez III, DO CHEMISTRY ORDERABLES Zaida l Result Performing Organization Address [facility] de Phone Number [facility] CLIA # [id number] [address] [address] * (ABNORMAL) COMPREHENSIVE METABOLIC PANEL (10/18/2024 7:13 AM CDT) SODIUM 133(L) 136 - 145 mmol/L 10/18/2024 7:53 AM CDT [facility] POTASSIUM 3.4(L) 3.5 - 5.1 mmol/L 10/18/2024 7:53 AM CDT [facility] CHLORIDE 101 98 - 107 mmol/L 10/18/2024 7:53 AM CDT [facility] CO2 23 22 - 29 mmol/L 10/18/2024 7:53 AM CDT [facility] CALCIUM 7.6(L) 8.8 - 10.2 mg/dL 10/18/2024 7:53 AM [facility] BUN 14 8 - 23 mg/dL 10/18/2024 7:53 AM [facility] CREATININE 0.94 0.51 - 0.95 mg/dL 10/18/2024 7:53 AM [facility] GLUCOSE 182(H) 74 - 99 mg/dL 10/18/2024 7:53 AM [facility] TOTAL PROTEIN 5.0(L) 6.4 - 8.3 g/dL 10/18/2024 7:53 AM [facility] ALBUMIN 3.3(L) 3.5 - 5.2 g/dL 10/18/2024 7:53 AM [facility] BILIRUBIN TOTAL 0.3 0.0 - 1.0 mg/dL 10/18/2024 7:53 AM [facility] ALKALINE PHOSPHATASE 54 35 - 104 U/L 10/18/2024 7:53 AM [facility] AST 18 10 - 35 U/L 10/18/2024 7:53 AM [facility] ALT 14 <=35 U/L 10/18/2024 7:53 AM [facility] GFR >60 >=60 mL/min/1.7 3 sq meter 10/18/2024 7:53 AM [facility] Comment:eGFR calculated with 2020 CKD-EPI equation. Vegetarian diet, extremely high or low muscle mass, and may affect results. Cystatin C with Glomerular Filtration Rate is a suitable alternative for these patients. ANION GAP 9 9 - 20 mmol/L 10/18/2024 7:53 AM [facility] Blood Venipuncture / Unknown 10/18/2024 7:13 AM CDT 10/18/2024 7:19 AM T us Cassie CALVERT CHEMISTRY ORDERABLES Final Resu lt [facility] CLIA # [id number] [address] [address] [place] [address] * (ABNORMAL) HEMOGLOBIN AND HEMATOCRIT (10/18/2024 12:21 AM CDT) HEMOGLOBIN 8.0(L) 12.0 - 16.0 g/dL 10/18/2024 12:27 AM CDT [facility] HEMATOCRIT 23.1(L) 36.0 - 46.0 % 10/18/2024 12:27 AM CDT [facility] Blood Venipuncture / Unknown 10/18/2024 12:21 AM CDT 10/18/2024 12:25 AM CDT us Cassie CALVERT HEMATOLOGY ORDERABLES Final Res ult Performing Organization Address [facility] Co de Phone Number [facility] CLIA # [id number] [address] [address] * (ABNORMAL) HEMOGLOBIN AND HEMATOCRIT (10/17/2024 4:49 PM CDT) HEMOGLOBIN 8.2(L) 12.0 - 16.0 g/dL 10/17/2024 5:10 PM CDT [facility] HEMATOCRIT 24.3(L) 36.0 - 46.0 % 10/17/2024 5:10 PM CDT [facility] Blood Venipuncture / Unknown 10/17/2024 4:49 PM CDT 10/17/2024 4:59 PM CDT Cassie CALVERT HEMATOLOGY ORDERABLES Final Res ult Performing Organization Address City/[facility]/ZIP Co de Phone Number [facility] CLIA # [id number] [id number] [place] [address] * COLONOSCOPY REPORT (10/17/2024 12:29 PM CDT) Narrative Procedure Note Julianne David DO - 10/17/2024 12:28 PM CDT [facility] GI Patient Name: Viry Quach Procedure [...] This is a 59 year old female. [address] [place] [address] Julianne Milner DO GI PROCEDURE ORDERABLE S Final Result * PATHOLOGY (10/17/2024 12:22 PM CDT) CASE REPORT Surgical Pathology Report Case: [id number] Authorizing Provider: Julianne David, Collected: 10/17/2024 12:22 PM DO Ordering Location: [facility] Received: 10/17/2024 01:47 PM Endoscopy Pathologist: Tamia Wolff MD Specimens: A) - Colon, cecum, polyp B) - Colon, sigmoid, polyp 10:44 AM CDT [facility] FINAL DIAGNOSIS A. Colon, cecum, polyp - Adenomatous polyp / B. Colon, sigmoid, polyp - Adenomatous polyp Tamia Wolff MD [id number] 10:44 AM CDT [facility] at 1044 CDT GROSS DESCRIPTION A. Received [...] B1. Grossed by: Nubia Gentile MS, PA [facility]ELIZABETH 10:44 AM CDT [facility] OPERATIVE PROCEDURE 1: COLONOSCOPY 10:44 AM CDT [facility] CLINICAL INFORMATION None provided 10:44 AM CDT [facility] COMMENT The [employer] voice-activated dictation system may have been used [...] determined by the Diagnostic Immunohistochemistry Laboratory of [facility] in compliance with CLIA'88 regulations. Some of these tests rely on the use of analyte specific reagents and are subject to specific labeling requirements by the FDA. All controls show appropriate reactivity. This testing was developed by the Diagnostic Immunohistochemistry Laboratory of [facility]. It has not been cleared or approved by the FDA. The FDA has determined that such clearance or approval is not necessary. 10:44 AM CDT [facility] Tissue SPECIMEN FROM COLON / Unknown Collection / Unknown 10/17/2024 12:22 PM CDT 10/17/2024 1:47 PM CDT Comment:Verified by TB/Aguila Rinaldi MD Tissue specimen (specimen) SIGMOID COLON STRUCTURE / Unknown 10/17/2024 12:25 PM CDT 10/17/2024 1:47 PM CDT Comment:Verified by BLANK/Aguila Rinaldi MD us Julianne Milner DO PATHOLOGY/CYTOLOGY ORD ERABLES Final Result [facility] CLIA # [id number] [address] [place] [address] * TRANSFUSE RED BLOOD CELLS (10/17/2024 11:01 AM CDT) us Jonathan Sampson MD BLOOD TRANSFUSION ORDERABLES Fi nal Result * TRANSFUSE RED BLOOD CELLS (10/17/2024 11:01 AM CDT) us Jonathan Sampson MD BLOOD TRANSFUSION ORDERABLES Fi nal Result * PHOSPHORUS (10/17/2024 5:56 AM CDT) PHOSPHORUS 3.6 2.5 - 4.5 mg/dL 10/17/2024 7:44 AM CDT [facility] Blood Venipuncture / Unknown 10/17/2024 5:56 AM CDT 10/17/2024 6:05 AM CDT us Jonathan Sampson MD CHEMISTRY ORDERABLES Final Resu lt Performing Organization Address City/[facility]/ZIP Co de Phone Number [facility] CLIA # [id number] [address] [place] [address] * MAGNESIUM LEVEL (10/17/2024 5:56 AM CDT) MAGNESIUM 1.9 1.6 - 2.4 mg/dL 10/17/2024 7:44 AM CDT [facility] Blood Venipuncture / Unknown 10/17/2024 5:56 AM CDT 10/17/2024 6:05 AM CDT us Jonathan Sampson MD CHEMISTRY ORDERABLES Final Resu lt Performing Organization Address City/[facility]/ZIP Co de Phone Number [facility] CLIA # [id number] [address] [place] [address] * (ABNORMAL) CBC WITH DIFFERENTIAL (10/17/2024 5:56 AM CDT) [facility] WBC 14.2(H) 4.8 - 10.8 K/uL 10/17/2024 6:15 AM T [facility] NRBCS 1(H) <1 % 10/17/2024 6:15 AM [facility] RBC 2.58(L) 4.20 - 5.40 M/uL 10/17/2024 6:15 AM T [facility] HEMOGLOBIN 7.2(L) 12.0 - 16.0 g/dL 10/17/2024 6:15 AM [facility] HEMATOCRIT 21.3(L) 36.0 - 46.0 % 10/17/2024 6:15 AM [facility] MCV 82.6(L) 84.0 - 103.0 fL 10/17/2024 6:15 AM [facility] MCH 27.9 27.0 - 34.0 pg 10/17/2024 6:15 AM [facility] MCHC 33.8 30.0 - 35.0 g/dL 10/17/2024 6:15 AM [facility] PLATELETS 253 140 - 440 K/uL 10/17/2024 6:15 AM [facility] MPV 11.7 8.9 - 12.8 fL 10/17/2024 6:15 AM [facility] RDW 17.4(H) 11.0 - 14.5 % 10/17/2024 6:15 AM [facility] RDW-STDEV 51.3 37.0 - 54.0 fL 10/17/2024 6:15 AM [facility] NEUTROPHILS 63 42 - 75 % 10/17/2024 6:15 AM [facility] LYMPHOCYTES 22(L) 24 - 44 % 10/17/2024 6:15 AM [facility] MONOCYTES 14(H) 2 - 10 % 10/17/2024 6:15 AM [facility] EOSINOPHILS 0 0 - 7 % 10/17/2024 6:15 AM CDT [facility] BASOPHILS 0 0 - 1 % 10/17/2024 6:15 AM CDT [facility] IMMATURE GRANULOCYTES 1 0 - 2 % 10/17/2024 6:15 AM CDT [facility] NEUTROPHIL ABSOLUTE 8.96(H) 2.00 - 8.00 K/uL 10/17/2024 6:15 AM CDT [facility] LYMPHOCYTE ABSOLUTE 3.09 1.20 - 4.00 K/uL 10/17/2024 6:15 AM CDT [facility] MONOCYTE ABSOLUTE 1.99(H) 0.10 - 0.60 K/uL 10/17/2024 6:15 AM CDT [facility] EOSINOPHIL ABSOLUTE 0.01 0.00 - 0.70 K/uL 10/17/2024 6:15 AM CDT [facility] BASOPHILS ABSOLUTE 0.05 0.00 - 0.20 K/uL 10/17/2024 6:15 AM CDT [facility] IMMATURE GRANULOCYTES ABSOLUTE 0.11(H) 0.00 - 0.10 K/uL 10/17/2024 6:15 AM T [facility] SMEAR REVIEWED: NA - Not Applicable 10/17/2024 6:15 AM T [facility] Blood Venipuncture / Unknown 10/17/2024 5:56 AM CDT 10/17/2024 6:04 AM CDT us Crescencio Aguero MD HEMATOLOGY ORDERABLES Final Res ult [facility] CLIA # [id number] [address] [place] [address] [place] [address] * (ABNORMAL) COMPREHENSIVE METABOLIC PANEL (10/17/2024 5:56 AM CDT) SODIUM 132(L) 136 - 145 mmol/L 10/17/2024 6:40 AM [facility] POTASSIUM 3.9 3.5 - 5.1 mmol/L 10/17/2024 6:40 AM [facility] CHLORIDE 100 98 - 107 mmol/L 10/17/2024 6:40 AM [facility] CO2 21(L) 22 - 29 mmol/L 10/17/2024 6:40 AM [facility] CALCIUM 7.8(L) 8.8 - 10.2 mg/dL 10/17/2024 6:40 AM [facility] BUN 18 8 - 23 mg/dL 10/17/2024 6:40 AM [facility] CREATININE 1.10(H) 0.51 - 0.95 mg/dL 10/17/2024 6:40 AM [facility] GLUCOSE 141(H) 74 - 99 mg/dL 10/17/2024 6:40 AM [facility] TOTAL PROTEIN 5.2(L) 6.4 - 8.3 g/dL 10/17/2024 6:40 AM [facility] ALBUMIN 3.1(L) 3.5 - 5.2 g/dL 10/17/2024 6:40 AM [facility] BILIRUBIN TOTAL 0.4 0.0 - 1.0 mg/dL 10/17/2024 6:40 AM [facility] ALKALINE PHOSPHATASE 54 35 - 104 U/L 10/17/2024 6:40 AM [facility] AST 17 10 - 35 U/L 10/17/2024 6:40 AM [facility] ALT 15 <=35 U/L 10/17/2024 6:40 AM [facility] GFR 58(L) >=60 mL/min/1. 73 sq meter 10/17/2024 6:40 AM [facility] Comment:eGFR calculated with 2020 CKD-EPI equation. Vegetarian diet, extremely high or low muscle mass, and may affect results. Cystatin C with Glomerular Filtration Rate is a suitable alternative for these patients. ANION GAP 11 9 - 20 mmol/L 10/17/2024 6:40 AM CDT [facility] Blood Venipuncture / Unknown 10/17/2024 5:56 AM CDT 10/17/2024 6:05 AM CDT us Cassie CALVERT CHEMISTRY ORDERABLES Final Resu lt Performing Organization Address [facility]/ZIP Co de Phone Number [facility] CLIA # [id number] [address] [place] [address] * HELICOBACTER PYLORI ANTIGEN, STOOL (10/17/2024 3:10 AM CDT) H. PYLORI AG, STOOL SEE COMMENT 10/19/2024 12:37 PM CDT [facility] Comment: HELICOBACTER PYLORI AG, EIA, STOOL Micro Number: [id number] Test Status: Final Specimen Source: Stool Specimen [...] PM CDT Performing Organization Information: Site ID: SL Name: [facility] Address: [address] [address] [id number] Director: Kiko Grimes us Mayo Taylor MD BODY FLUIDS AND STOOLS Fi nal Result Performing Organization Address City/[facility]/ZIP Co de Phone Number [facility] * GI PATHOGEN PCR PANEL (10/17/2024 3:10 AM CDT) GI Pathogen PCR panel NOT DETECTED No nucleic acids detected. 10/17/2024 4:45 AM CDT [facility] Stool STOOL SPECIMEN / Unknown Collection / Unknown 10/17/2024 3:10 AM CDT 10/17/2024 3:19 AM CDT Narrative [facility] - 10/17/2024 4:45 AM CDT The Film [...] duodenalis us Je Garnett MD MICROBIOLOGY - [facility] ORDERABLES Final Result [facility] CLIA # [id number] [address] [place] [address] * (ABNORMAL) HEMOGLOBIN AND HEMATOCRIT (10/17/2024 12:37 AM CDT) [facility] HEMOGLOBIN 7.6(L) 12.0 - 16.0 g/dL 10/17/2024 12:58 AM CDT [facility] HEMATOCRIT 22.2(L) 36.0 - 46.0 % 10/17/2024 12:58 AM CDT [facility] Blood Venipuncture / Unknown 10/17/2024 12:37 AM CDT 10/17/2024 12:52 AM CDT us Cassie CALVETR HEMATOLOGY ORDERABLES Final Res ult [facility] CLIA # [id number] [address] [facility] [place] [address] * UPPER ENDOSCOPY REPORT (10/16/2024 11:13 PM CDT) Narrative Procedure Note Mayo Taylor MD - 10/16/2024 11:12 PM CDT [facility] GI Patient Name: Viry Quach Procedure [...] Withdrawal Time Scope In: Scope Out: [address] [place] Mayo Taylor MD GI PROCEDURE ORDERABLES F inal Result * TYPE AND SCREEN (10/16/2024 8:42 PM CDT) Pathologist [facility] ABO GROUP O 10/16/2024 9:37 PM CDT [facility] RH (D) TYPE Negative 10/16/2024 9:37 PM CDT [facility] ANTIBODY SCREEN Negative 10/16/2024 9:37 PM CDT [facility] Blood Venipuncture / Unknown 10/16/2024 8:42 PM CDT 10/16/2024 8:51 PM CDT Je Garnett MD BLOOD BANK ORDERA BLES Edited Result - Final Performing Organization Address [facility] Co de Phone Number [facility] [employer] [facility] CLIA#[id number] [address] [place] [address], * MAGNESIUM LEVEL (10/16/2024 8:42 PM CDT) Pathologist [facility] MAGNESIUM 2.0 1.6 - 2.4 mg/dL 10/16/2024 9:31 PM CDT [facility] Blood Venipuncture / Unknown 10/16/2024 8:42 PM CDT 10/16/2024 8:54 PM CDT Je Garnett MD CHEMISTRY ORDERAB LES Final Result [facility] CLIA # [id number] [address] [address] [place] [address] * LACTIC ACID (10/16/2024 8:42 PM CDT) [facility] LACTIC ACID 1.6 <=2.0 mmol/L 10/16/2024 9:57 PM CDT [facility] Blood BLOOD SPECIMEN / Unknown Venipuncture / Unknown 10/16/2024 8:42 PM CDT 10/16/2024 8:52 PM CDT us Je Garnett MD CHEMISTRY ORDERAB LES Final Result [facility] CLIA # [id number] [address] [address] * (ABNORMAL) COMPREHENSIVE METABOLIC PANEL (10/16/2024 8:42 PM CDT) [facility] SODIUM 132(L) 136 - 145 mmol/L 10/16/2024 9:31 PM CDT [facility] POTASSIUM 3.9 3.5 - 5.1 mmol/L 10/16/2024 9:31 PM CDT [facility] CHLORIDE 101 98 - 107 mmol/L 10/16/2024 9:31 PM CDT [facility] CO2 21(L) 22 - 29 mmol/L 10/16/2024 9:31 PM CDT [facility] CALCIUM 8.1(L) 8.8 - 10.2 mg/dL 10/16/2024 9:31 PM CDT [facility] BUN 18 8 - 23 mg/dL 10/16/2024 9:31 PM CDT [facility] CREATININE 1.12(H) 0.51 - 0.95 mg/dL 10/16/2024 9:31 PM CDT [facility] GLUCOSE 119(H) 74 - 99 mg/dL 10/16/2024 9:31 PM CDT [facility] TOTAL PROTEIN 5.5(L) 6.4 - 8.3 g/dL 10/16/2024 9:31 PM CDT [facility] ALBUMIN 3.4(L) 3.5 - 5.2 g/dL 10/16/2024 9:31 PM CDT [facility] BILIRUBIN TOTAL 0.8 0.0 - 1.0 mg/dL 10/16/2024 9:31 PM CDT [facility] ALKALINE PHOSPHATASE 59 35 - 104 U/L 10/16/2024 9:31 PM CDT [facility] AST 18 10 - 35 U/L 10/16/2024 9:31 PM CDT [facility] ALT 17 <=35 U/L 10/16/2024 9:31 PM CDT [facility] GFR 56(L) >=60 mL/min/1. 73 sq meter 10/16/2024 9:31 PM CDT [facility] Comment:eGFR calculated with 2020 CKD-EPI equation. Vegetarian diet, extremely high or low muscle mass, and may affect results. Cystatin C with Glomerular Filtration Rate is a suitable alternative for these patients. ANION GAP 10 9 - 20 mmol/L 10/16/2024 9:31 PM T [facility] Blood Venipuncture / Unknown 10/16/2024 8:42 PM CDT 10/16/2024 8:54 PM CDT us Je Garnett MD CHEMISTRY ORDERAB LES Final Result [facility] CLIA # [id number] [facility] [address] [address] [place] [address] * PTT (10/16/2024 8:42 PM CDT) PTT 27.6 24.8 - 37.2 seconds 10/16/2024 9:37 PM CDT [facility] Blood Venipuncture / Unknown 10/16/2024 8:42 PM CDT 10/16/2024 8:54 PM CDT [facility] - 10/16/2024 9:37 PM CDT Therapeutic Range: Hi-level PE/DVT heparin protocol 80.1 - 95.0 sec Lo-level PE/DVT heparin protocol 70.1 - 85.0 sec Cardiac Heparin Protocol 70.1 - 100.0 sec Je Garnett MD HEMATOLOGY ORDERA BLES Final Result [facility] CLSD # [id number] [facility] [address] [place] [address] * (ABNORMAL) PROTIME-INR (10/16/2024 8:42 PM CDT) PROTIME 15.9(H) 12.7 - 14.9 Seconds 10/16/2024 9:37 PM CDT [facility] INR 1.2 0.8 - 1.2 10/16/2024 9:37 PM CDT [facility] Blood Venipuncture / Unknown 10/16/2024 8:42 PM CDT 10/16/2024 8:54 PM CDT [facility] - 10/16/2024 9:37 PM CDT Expected Values for INR: DVT/PE Goal INR 2.5; range 2.0 - 3.0 Valve Replacement Tissue Goal INR 2.5; range 2.0 - 3.0 Valve Replacement Mechanical Goal INR 3.0; range 2.5 - 3.5 POST-HI Goal INR 2.5; range 2.0 - 3.0 or Goal INR 3.0; range 2.5 - 3.5 Atrial Fibrillation Goal INR 2.5; range 2.0 - 3.0 Ischemic Stroke Goal INR 2.5; range 2.0 - 3.0 Je Garnett MD HEMATOLOGY ORDERA AVERY Final Result [facility] ROSE # [id number] [id number] [place] [address] * (ABNORMAL) CBC WITH DIFFERENTIAL (10/16/2024 8:42 PM CDT) [facility] WBC 15.5(H) 4.8 - 10.8 K/uL 10/16/2024 9:12 PM CDT [facility] RBC 3.07(L) 4.20 - 5.40 M/uL 10/16/2024 9:12 PM CDT [facility] HEMOGLOBIN 8.4(L) 12.0 - 16.0 g/dL 10/16/2024 9:12 PM CDT [facility] HEMATOCRIT 25.2(L) 36.0 - 46.0 % 10/16/2024 9:12 PM CDT [facility] MCV 82.1(L) 84.0 - 103.0 fL 10/16/2024 9:12 PM CDT [facility] MCH 27.4 27.0 - 34.0 pg 10/16/2024 9:12 PM CDT [facility] MCHC 33.3 30.0 - 35.0 g/dL 10/16/2024 9:12 PM CDT [facility] PLATELETS 309 140 - 440 K/uL 10/16/2024 9:12 PM CDT [facility] MPV 11.4 8.9 - 12.8 fL 10/16/2024 9:12 PM CDT [facility] RDW 17.1(H) 11.0 - 14.5 % 10/16/2024 9:12 PM CDT [facility] RDW-STDEV 51.2 37.0 - 54.0 fL 10/16/2024 9:12 PM CDT [facility] NEUTROPHILS 61 42 - 75 % 10/16/2024 9:12 PM CDT [facility] LYMPHOCYTES 22(L) 24 - 44 % 10/16/2024 9:12 PM CDT [facility] MONOCYTES 16(H) 2 - 10 % 10/16/2024 9:12 PM CDT [facility] EOSINOPHILS 0 0 - 7 % 10/16/2024 9:12 PM CDT [facility] BASOPHILS 0 0 - 1 % 10/16/2024 9:12 PM CDT [facility] IMMATURE GRANULOCYTES 1 0 - 2 % 10/16/2024 9:12 PM CDT [facility] NEUTROPHIL ABSOLUTE 9.48(H) 2.00 - 8.00 K/uL 10/16/2024 9:12 PM CDT [facility] LYMPHOCYTE ABSOLUTE 3.45 1.20 - 4.00 K/uL 10/16/2024 9:12 PM CDT [facility] MONOCYTE ABSOLUTE 2.44(H) 0.10 - 0.60 K/uL 10/16/2024 9:12 PM CDT [facility] EOSINOPHIL ABSOLUTE 0.01 0.00 - 0.70 K/uL 10/16/2024 9:12 PM CDT [facility] BASOPHILS ABSOLUTE 0.06 0.00 - 0.20 K/uL 10/16/2024 9:12 PM CDT [facility] IMMATURE GRANULOCYTES ABSOLUTE 0.09 0.00 - 0.10 K/uL 10/16/2024 9:12 PM CDT [facility] SMEAR REVIEWED: NN - No Action Needed 10/16/2024 9:12 PM CDT [facility] Blood Venipuncture / Unknown 10/16/2024 8:42 PM CDT 10/16/2024 8:54 PM CDT us Je Garnett MD HEMATOLOGY ORDERA BLES Final Result [facility] CLIA # [id number] [address] [address] [place] [address] * PREPARE RED BLOOD CELLS (10/16/2024 8:29 PM CDT) COMPONENT TYPE [id number] [facility] [place] COMPONENT IDENTIFICATION [id number] [facility] [place] UNIT ABO O [facility] [place] [facility] [place] CROSSMATCH Compatible [facility] [place] COMPONENT STATUS Returned [facility] [place] COMPONENT EXPIRATION DATE/TIME [id number] [facility] [place] COMPONENT CODING SYSTEM 9500 [facility] [place] VOLUME, BLOOD PRODUCT 350 [facility] [place] 10/16/2024 8:29 PM CDT Je Garnett MD LAB TRANSFUSION O RDERABLES Edited Result - Final [facility] [place] CLIA#[id number] [facility] [place] [address], * PREPARE RED BLOOD CELLS (10/16/2024 8:29 PM CDT) COMPONENT TYPE [id number] [facility] [place] COMPONENT IDENTIFICATION [id number] [facility] [place] [facility] [place] [facility] [place] CROSSMATCH Compatible [facility] [place] COMPONENT STATUS [facility] [place] COMPONENT EXPIRATION DATE/TIME [id number] [facility] [place] COMPONENT CODING SYSTEM [address] [facility] [place] VOLUME, BLOOD PRODUCT 350 [facility] [place] 10/16/2024 8:29 PM CDT Je Garnett MD LAB TRANSFUSION O RDERABLES Edited Result - Final [facility] [place] CLIA#[id number] [address] [place], [place] [address], * PREPARE RED BLOOD CELLS (10/16/2024 8:29 PM CDT) COMPONENT TYPE [id number] [facility] [place] COMPONENT IDENTIFICATION [id number] [facility] [place] [facility] ABO O [facility] [place] [facility] RH NEG [facility] -- [place] CROSSMATCH Compatible [facility] [place] COMPONENT STATUS Returned [facility] -- [place] COMPONENT EXPIRATION DATE/TIME [facility] [place] COMPONENT CODING SYSTEM [employer] [facility] [place] VOLUME, BLOOD PRODUCT 350 [facility] [place] 10/16/2024 8:29 PM CDT Je Garnett MD LAB TRANSFUSION O RDERABLES Edited Result - Final [facility] [place] CLIA#[id number] [address] [place] [address], * PREPARE RED BLOOD CELLS (10/16/2024 8:29 PM CDT) COMPONENT TYPE [id number] [facility] [place] COMPONENT IDENTIFICATION [id number] [facility] [place] UN[facility] ABO O [facility] [place] UN[facility] RH NEG [facility] -- [place] CROSSMATCH Compatible [facility] [place] COMPONENT STATUS Returned [facility] -- [place] COMPONENT EXPIRATION DATE/TIME [facility] [place] COMPONENT CODING SYSTEM [employer] [facility] [place] VOLUME, BLOOD PRODUCT 350 [facility] [place] Other, specify 10/16/2024 8: 29 PM CDT us Je Garnett MD LAB TRANSFUSION O RDERABLES Edited Result - Final [id number] [address] [place] [address], [place] [phone] * EKG 12-LEAD (10/16/2024 8:23 PM CDT) 10/16/2024 8:23 PM CDT Narrative INTERFACE SYSTEM - 10/17/2024 6:50 [place] [address] Test Date: 2024-10-16 Pat Name: VIRY QUACH Department: 11 Room: 21 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: [id number] : 1965 Requested By: Order Number: [id number] Erasto CULVER: Chan Sanchez Measurements Intervals Wana Rate: 99 P: 62 ME: 142 QRS: 87 QRSD: 78 T: 77 QT: 334 QTc: 428 Interpretive Statements Normal sinus rhythm Cannot rule out Inferior infarct, age undetermined Abnormal ECG Electronically Signed On 10-17-2024 6:50:50 CDT by Chan Sanchez Procedure Note Chan Sanchez MD - 10/17/[address] [address] Test Date: 2024-10-16 Pat Name: VIRY BAKERSS Department: 11 Room: 21 21 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: [id number] : 1965 Requested By: Order Number: [id number] Erasto CULVER: Chan Sanchez Measurements Intervals Wana Rate: 99 P: 62 ME: 142 QRS: 87 QRSD: 78 T: 77 [...] 10/17/2024 12:07 AM Critical Care Performed by: eJ Garnett MD Authorized by: Je Garnett MD Critical care provider statement: Critical care time (minutes): 80 Critical care was necessary to treat or prevent imminent or life-threatening deterioration of the following conditions: 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 failure or 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, 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 [...] MAR Action Action Date Dose Rate Site bacitracin-polymyxin B 500-10,000 unit/gram topical ointment INTRA-PROCEDURE PRN, Starting on Tue10/19/24 at 1256, Until Tue10/19/24 at 1313, Routine, Intra-op Given 10/19/2024 12:56 PM CDT 5 Grams Operative Site BUPivacaine-EPINEPHrine (PF) (SENSORCAINE MPF WITH EPI) 0.5 %-1:200,000 injection INTRA-PROCEDURE PRN, Starting on Tue10/19/24 at 1256, Until Tue10/19/24 at 1313, Routine, Intra-op Given 10/19/2024 12:56 PM CDT 30 mL Operative Site carvediloL (COREG) tablet 3.125 mg 3.125 mg, Oral, TWO TIMES DAILY WITH MEALS, First dose on Tue10/18/24 at 1045, Until Discontinued, Routine Given 10/23/2024 8:30 AM CDT 3.125 mg Given 10/22/2024 6:09 PM CDT 3.125 mg Given 10/22/2024 8:19 AM CDT 3.125 mg dextrose 5 % - sodium chloride 0.9 [...] at 1032, Until Tue10/23/24 at 1543, Routine glucagon HCL 1 mg/mL injection 1 mg 1 mg, IM, SEE ADMIN INSTRUCTIONS, Starting on Tue10/18/24 at 1032, Until Tue10/23/24 at 1543, Routine ipratropium-albuteroL (DUONEB) 0.5 mg-3 mg(2.5 mg base)/3 mL inhalation solution 3 mL 3 mL, Inhalation, EVERY 4 HOURS PRN RESPIRATORY, 1 dose, Starting on Tue10/19/24 at 1155, Until Tue10/23/24 at 1543, Respiration, Shortness of Breath, Wheezing, dyspnea, Routine, PACUIndications:dyspnea,wheezing lactulose (ENULOSE) 10 gram/15 mL oral solution [...] Given 10/21/2024 5:40 AM CDT 50 mcg naloxone (NARCAN) 0.4 mg/mL injection 0.1-0.4 mg 0.1-0.4 mg, IV, SEE ADMIN INSTRUCTIONS, Starting on Tue10/16/24 at 2303, Until Tue10/23/24 at 1543, Routine ondansetron (ZOFRAN) 4 mg/2 mL injection 4 [...] Given 10/22/2024 10:00 AM CDT 40 mg traZODone (DESYREL) tablet 50 mg 50 [...] RN) 0819 (Given - Provider: Kaylen Tellez, AMARIS)1809 (Given - Provider: Kaylen Tellez, AMARIS) 0830 (Given - Provider: Kaylen Tellez RN) [...] at 1032, Until Tue10/23/24 at 1543, Routine glucagon HCL 1 mg/mL [...] 10 mL., Indication: Upper gastrointestinal (GI) bleed 35 (Given - Provider: Josie Goss RN)2025 (Given [...] 2025 (Given - Provider: Trixie Melissa RN) 1958 (Given - Provider: Trixie Melissa RN)2100 (Not Given - Provider: Trixie Melissa RN - Reason: Other - See Comment - Comment: ALREADY GIVEN) vancomycin (FIRVANQ) oral solution 125 mg 125 mg, Oral, EVERY 6 HOURS, 40 doses, First dose on Tue10/17/24 at 0000, Last dose on Tue10/26/24 at 2100, Routine, Indication: c. diff treatment 0227 (Given - Provider: Trixie Melissa RN)0835 [...] Goss RN)1505 (Given - Provider: Josie Goss RN)2026 (Given - Provider: Trixie Melissa RN) 0257 (Given - Provider: Trixie Melissa RN)0819 (Given - Provider: Kaylen Tellez RN)1319 (Given - Provider: Kaylen Tellez RN)1959 (Given - Provider: Trixie Melissa RN) 0327 (Given - Provider: Trixie Melissa RN)0830 (Given - Provider: Kaylen Tellez RN) documented in this encounter Additional Health Concerns Infection Onset Date Last Indicated Resolved Time C Diff 10/07/2024 10/07/2024 R/O GI Pathogen 10/16/2024 10/17/2024 10/17/2024 4 :45 AM CDT documented as of this encounter Care Teams Emergency Spill Response Technician Relationship Specialty Start Date End Date Aguila Castro MD [address] [phone] PCP - General Family Practice 05/26/21 10/23/24 documented as of this encounter
--- OUTSIDE RECORDS SUMMARY | 2024-10-19 12:04 | XMS_ITS | Encounter Summary ---
Author Organization [facility] Address [address] [place] [address] Care Team Providers Care Rod Greaser Name Role Phone Aguila Castro MD Primary Care Provider + Reason for Visit * Auth/Cert (Routine) Specialty Diagnoses / Procedures Referred By Maryjane tim Referred To Contact Emergency Medicine Diagnoses cdiff +, GI bleed, general weakness [facility] Emergency Department [address] [place] [address] Phone: tel: fax: Referral ID Status Reason Start Date Expiration Date Visits Re quested Visits Authorized [id number] 1 1 Encounter Details Date Type Department Care Team (Late st Contact Info) Description 10/19/2024 12:04 PM CDT Anesthesia Event [facility] Operating Room [address] [place] [phone] Oliver Reid MD [address] [place] [address] Deric Ha CRNA [address] [place] [address] Anesthesia Record Procedure Summary Procedure Name Responsible Anesthesiologist Anesthesia Start Time Anesthesia Stop Time HEMORRHOIDECTOMY (Anus) Oliver Reid MD 10/19/24 1204 10/19/24 1317 Events Date Time Event Comment 10/19/2024 1114 AN Equip Check Anesthesia eq uipment and materials checked in accordance with local policy. 1155 1204 An Start 1208 In Room This event disp lays the In Room time documented in the Surgical Log. Deleting this event will not remove it from the log but will remove it from the Grid and Graph timeline. 1214 An Start Data 1216 Pre-Induction Immediate pre- induction anesthetic assessment performed. Vital signs as noted on graphic. 1217 An Induction 1220 An Intubation 1224 Anesthesia Ready 1234 Procedure Start This event d isplays the Procedure Start time documented in the Surgical Log. Deleting this event will not remove it from the log but will remove it from the Grid and Graph timeline. 1254 Procedure Stop This event di splays the Procedure Stop time documented in the Surgical Log. Deleting this event will not remove it from the log but will remove it from the Grid and Graph timeline. 1311 An Extubation Emergence unev entful Awake, spontaneous respirations. Adequate muscle strength demonstrated Adequate tidal volume. Orapharynx suctioned. Extubated with positive pressure ventilation. 1312 an stop data 1312 Out of Room This event disp lays the Out of Room time documented in the Surgical Log. Deleting this event will not remove it from the log but will remove it from the Grid and Graph timeline. 1317 An Stop 1317 Hand-off to Receiving Clinic karthik Meds Name Total midazolam (VERSED) 1 mg/mL injection 2 mg fentaNYL (SUBLIMAZE) PF 50 mcg/mL injection 100 mcg lidocaine PF (XYLOCAINE MPF) 2% injectio n 2.5 mL propofol (DIPRIVAN) 10 mg/mL injection 150 mg rocuronium (ZEMURON) 10mg/mL injection 5 0 mg dexamethasone (DECADRON) 4 mg/mL injecti on 4 mg ondansetron (ZOFRAN) 4 mg/2 mL injection 4 mg sugammadex (BRIDION) 100 mg/mL injection 275 mg sodium chloride 0.9% infusion 1,000 mL * Agents Name N2O Air Sevoflurane % Sevoflurane O2 Inspired O2 N2O Inspired N2O O2 * Blood No blood administrations on file. Lines, Drains, and Airways Type Details Placement Removal Wound 10/19/24; 1241; Bilateral; gluteal; Surgical 10/19/24 1241 by Brook Quiros RN Peripheral IV Pre-Hospital Start: No; Orientation: Right; Location: Antecubital; Device: Angiocath; Gauge: 20 gauge; Needle Length: 2 in length; Insertion Attempts: 1; Patient Tolerance: tolerated well, appears comfortable; Pain Prevention: distraction; Power Injectable Compatible: Yes; Removal Indication: removed per policy; Removal Interventions: pressure dressing, direct pressure, catheter intact 10/18/24 0719 by Zainab Quintana RN 10/23/24 1335 by Kaylen Tellez RN Endotracheal Airway Type: ETT; Size: 7; Attempts: 1; Verification: Auscultated bilateral breath sounds, Equal chest movement, Continuous waveform capnography 10/19/24 1220 by Deric Ha CRNA 10/19/24 1311 by Deric Ha CRNA documented in this encounter Social History Tobacco [...] on file 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 Gender Identity Not on file Sexual Orientation Not on file documented as of this encounter OR Notes * Anesthesia Postprocedure Evaluation - Oliver Reid MD - 10/19/2024 3:09 PM CDT Post Anesthesia Evaluation Vitals: Vitals Value Taken Time BP 135/62 10/19/24 14:45 Temp 36.8 ??C 10/19/24 14:25 Resp 16 10/19/24 14:45 SpO2 96 % 10/19/24 14:45 Pulse 70 10/19/24 14:45 Heart Rate 75 bpm 10/19/24 13:45 Pain Rating: Pain Rating: Rest: 10 (10/19/24 0521) Pain Rating: Activity: 0 (pt says she had Dilaudid prior to coming to endoscopy) (10/17/24 1103) Presence of Pain: complains of pain/discomfort (10/19/24 1453) Anesthesia Post Evaluation Patient location during evaluation: PACU Patient participation: patient was able to participate in the post op evaluation Level of consciousness: 1 = not alert but arousable by minor stimulation to obey, answer or respond(age appropriate) Pain management: adequate Airway patency: patent Nausea or Vomiting: none Cardiovascular status: regular rate and rhythm Respiratory status: no respiratory symptoms Hydration status: well hydrated No notable events documented. Oliver Reid MD * Anesthesia Handoff - Deric Ha CRNA - 10/19/2024 1:17 PM CDT Post-Anesthetic transfer of care report elements [...] Vital Signs: Vitals Value Taken Time BP 131/72 10/19/24 13:15 Temp Resp 18 10/19/24 13:16 SpO2 100 % 10/19/24 13:16 Pulse 83 10/19/24 13:16 Heart Rate 83 bpm 10/19/24 13:16 Vitals shown include unfiled device data. 1:17 PM Deric Ha CRNA * Anesthesia Procedure Notes - Deric Ha CRNA - 10/19/2024 12:29 PM CDTAssociated Order(s): Airway Airway Date/Time: 10/19/2024 12:20 PM Location: OR Plan: routine intubation Patient Identity Confirmed by: Verbally with patient and armband Staffing Performed: HYDRAULIC ENGINEER/CAA Authorized by: Oliver Reid MD Performed by: Deric Ha CRNA Indications and Patient Condition: Indications for Airway Management: Anesthesia Sedation Level: general anesthesia Preoxygenated: yes Patient Position: Sniffing Mask Difficulty Assessment: 1 - vent by mask Plan to extubate at end of case: Yes Final Airway Details: Final Airway Type: Endotracheal airway ETT Cuffed: Yes Cuff Volume (mL): 8 Technique Used for Successful ETT Placement: Direct laryngoscopy Devices/Methods Used in Placement: Intubating stylet and cricoid pressure Blade Type: straight blade Blade Size: 2 Insertion Site: Oral ETT Size (mm): 7.0 Measured from: Gums ETT to Gums (cm): 21 Tube secured with: Tape Placement Verified by: auscultation, end tidal CO2 and chest rise Cormack-Lehane Classification: Grade I - full view of glottis Number of Attempts at Approach: 1 Additional Procedure Information: atraumatic and dentition unchanged * Anesthesia Preprocedure Evaluation - Oliver Reid MD - 10/19/2024 11:54 AM CDT Relevant Problems CARDIOVASCULAR (+) Angiodysplasia of stomach (+) Esophageal varices determined by endoscopy (CMS/HCC) (+) Esophageal varices without bleeding (CMS/HCC) (+) 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 Anesthesia Plan ASA Final: 4 General Intravenous induction Oral ETT airway maintenance NPO status > 8 hours Anesthetic plan and risks discussed with Patient. documented in this encounter Plan of Treatment Upcoming Encounters Date Type Department Care Team (Late st Contact Info) Description 12/07/2024 7:30 AM CDT Office Visit [facility] Gastroenterology- [place] [address] [place] [address] Melquiades Ken FNP [address] [place] [address] documented as of this encounter Procedures Procedure Name Priority Date/Time Associated Diagnosis Comments ID ANES INSERT ENDOTRACHEAL AIRWAY Routine 10/19/2024 12:20 PM CDT documented in this encounter Results * ID ANES INSERT ENDOTRACHEAL AIRWAY (10/19/2024 12:20 PM CDT) Narrative Deric Ha CRNA - 10/19/2024 12:20 PM CDT Deric Ha CRNA 10/19/2024 12:30 PM Airway Date/Time: 10/19/2024 12:20 PM Location: OR Plan: routine intubation Patient Identity Confirmed by: Verbally with patient and armband Staffing Performed: HYDRAULIC ENGINEER/CAA Authorized by: Oliver Reid MD Performed by: Deric Ha CRNA Indications and Patient Condition: Indications for Airway Management: Anesthesia Sedation Level: general anesthesia Preoxygenated: yes Patient Position: Sniffing Mask Difficulty Assessment: 1 - vent by mask Plan to extubate at end of case: Yes Final Airway Details: Final Airway Type: Endotracheal airway ETT Cuffed: Yes Cuff Volume (mL): 8 Technique Used for Successful ETT Placement: Direct laryngoscopy Devices/Methods Used in Placement: Intubating stylet and cricoid pressure Blade Type: straight blade Blade Size: 2 Insertion Site: Oral ETT Size (mm): 7.0 Measured from: Gums ETT to Gums (cm): 21 Tube secured with: Tape Placement Verified by: auscultation, end tidal CO2 and chest rise Cormack-Lehane Classification: Grade I - full view of glottis Number of Attempts at Approach: 1 Additional Procedure Information: atraumatic and dentition unchanged Oliver Reid MD PROCEDURE/MINOR SURGICAL ORDERAB LES Final Result documented in this encounter Visit Diagnoses Not on filedocumented in this encounter Administered Medications Inactive Administered Medications - up to 3 most recent administrations Medication Order MAR Action Action Date Dose Rate Site dexAMETHasone (DECADRON) injection IV, INTRA-PROCEDURE PRN, Starting on Tue10/19/24 at 1233, Until Tue10/19/24 at 1317, Routine, Anesthesia Intra-op Given 10/19/2024 12:33 PM CDT 4 mg fentaNYL PF (SUBLIMAZE) 50 mcg/mL injection IV, INTRA-PROCEDURE PRN, Starting on Tue10/19/24 at 1217, Until Tue10/19/24 at 1317, Routine, Anesthesia Intra-op Given 10/19/2024 12:45 PM CDT 50 mcg Given 10/19/2024 12:35 PM CDT 25 mcg Given 10/19/2024 12:17 PM CDT 25 mcg lidocaine PF 2% (XYLOCAINE MPF) injection IV, INTRA-PROCEDURE PRN, Starting on Tue10/19/24 at 1217, Until Tue10/19/24 at 1317, Routine, Anesthesia Intra-op Given 10/19/2024 12:17 PM CDT 2.5 mL midazolam (VERSED) injection IV, INTRA-PROCEDURE PRN, Starting on Tue10/19/24 at 1204, Until Tue10/19/24 at 1317, Routine, Anesthesia Intra-op Given 10/19/2024 12:04 PM CDT 2 mg ondansetron (ZOFRAN) 4 mg/2 mL injection IV, INTRA-PROCEDURE PRN, Starting on Tue10/19/24 at 1233, Until Tue10/19/24 at 1317, Routine, Anesthesia Intra-op Given 10/19/2024 12:33 PM CDT 4 mg propofoL (DIPRIVAN) injection IV, INTRA-PROCEDURE PRN, Starting on Tue10/19/24 at 1217, Until Tue10/19/24 at 1317, Anesthesia Intra-op Given 10/19/2024 12:17 PM CDT 150 mg rocuronium injection IV, INTRA-PROCEDURE PRN, Starting on Tue10/19/24 at 1217, Until Tue10/19/24 at 1317, Routine, Anesthesia Intra-op Given 10/19/2024 12:17 PM CDT 50 mg sodium chloride 0.9 % infusion IV, INTRA-PROCEDURE CONTINUOUS PRN, Starting on Tue10/19/24 at 1204, Until Tue10/19/24 at 1317, Routine, Anesthesia Intra-op New Bag 10/19/2024 12:04 PM CDT sugammadex (BRIDION) 100 mg/mL injection IV, INTRA-PROCEDURE PRN, Starting on Tue10/19/24 at 1257, Until Tue10/19/24 at 1317, Routine, Anesthesia Intra-op Given 10/19/2024 12:57 PM CDT 275 mg documented in this encounter Additional Health Concerns Infection Onset Date Last Indicated Resolved Time C Diff 10/07/2024 10/07/2024 documented as of this encounter Care Teams Rod Greaser Relationship Specialty Start Date End Date Aguila Castro MD [address] [phone] PCP - General Family Practice 05/26/21 10/23/24 documented as of this encounter
--- OUTSIDE RECORDS SUMMARY | 2024-10-26 12:17 | XMS_ITS | Encounter Summary ---
Author Organization [facility] Address [address] [place] [address] Care Team Providers Care Applications Support Engineer Name Role Phone Unavailable Primary Care Provider Unavailabl e Encounter Details Date Type Department Care Team (Latest Contact Info) Description 02/10/2006 Outpatient Historical [facility]- 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
--- OUTSIDE RECORDS SUMMARY | 2024-10-26 12:17 | XMS_ITS | Encounter Summary ---
Author Organization [facility] Address [address] [place] [address] Care Team Providers Care Drafter Civil Name Role Phone Tawnya Lane DO Primary Care Provider +1- [phone] Encounter Details Date Type Department Care Team (Latest Contact Info) Description 04/14/2007 Outpatient Historical [facility] Internal Medicine [place] [address] [place] [address] Gilberto Leung MD Elevated Blood Pressure Reading without Diagnosis of Hypertension Social History Tobacco Use Types Packs/Day Years Used Date Smoking Tobacco: Never Assessed Comments Unknown Sex and Gender Information Value Date Recorded Sex Assigned at Not on file 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 Gender Identity Not on file Sexual Orientation Not on file documented as of this encounter Plan of Treatment Upcoming Encounters Date Type Department Care Team (Late st Contact Info) Description 12/07/2024 7:30 AM CDT Office Visit [facility] Gastroenterology- [place] [address] [address] Melquiades Ken FNP 2[address] [facility] [address] [place] [address] documented as of this encounter Procedures Procedure Name Priority Date/Time Associated Diagnosis Comments MICROALBUMIN/CREATININ E RATIO, RANDOM UR Routine 04/14/2007 3:34 PM SENIOR ECOLOGIST CBC WITH DIFFERENTIAL Routine 04/14/2007 3:34 PM SENIOR ECOLOGIST URINALYSIS W/REFLEX MICROSCOPIC Routine 04/14/2007 3:34 PM SENIOR ECOLOGIST T3 FREE Routine 04/14/2007 3:34 PM SENIOR ECOLOGIST TSH Routine 04/14/2007 3:34 PM SENIOR ECOLOGIST T4 FREE Routine 04/14/2007 3:34 PM SENIOR ECOLOGIST COMPREHENSIVE METABOLIC PANEL Routine 04/14/2007 3:34 PM SENIOR ECOLOGIST documented in this encounter Results * (ABNORMAL) COMPREHENSIVE METABOLIC PANEL (04/14/2007 3:34 PM SENIOR ECOLOGIST) ALKALINE PHOSPHATASE 54 35 - 104 U/L [facility] CO2 22 22 - 30 mmol/L [facility] BILIRUBIN TOTAL 0.4 0.2 - 1.0 mg/dL [facility] POTASSIUM 3.9 3.5 - 4.9 mmol/L [facility] TOTAL PROTEIN 8.0 6.3 - 8.6 g/dL [facility] GLUCOSE 86 65 - 99 mg/dL [facility] AST 28 12 - 32 U/L [facility] BUN 7 6 - 20 mg/dL [facility] CALCIUM 8.5 8.4 - 10.2 mg/dL [facility] ALBUMIN 4.6 3.4 - 4.8 g/dL [facility] CHLORIDE 99 96 - 108 mmol/L [facility] CREATININE 0.71 0.51 - 0.95 mg/dL [facility] ALT 35(H) 0 - 31 U/L [facility] SODIUM 133(L) 135 - 145 mmol/L [facility] GFR, >60 >=60 mL/min/1. 7 sq meter [facility] GFR >60 >=60 mL/min/1. 7 sq meter [facility] Comment: Estimated GFR rate interpretative information for both Americans and non- Americans is available on the [facility] Intranet at: [email or web address] Select: Lab Policies and Procedures Select: Reference Ranges - GFR Blood specimen (specimen) 04/14/2007 3:34 PM SENIOR ECOLOGIST 04/14/2007 8:28 PM SENIOR ECOLOGIST Gilberto Leung MD CHEMISTRY ORDERABLES Edited [facility] [address] [place], [place] [address] * (ABNORMAL) URINALYSIS (04/14/2007 3:34 PM SENIOR ECOLOGIST) COLOR UA Pale Yellow [facility] NITRITE UA Negative Negative [facility] UROBILINOGEN UA <1 <=1 mg/dL [facility] EPITHELIAL CELLS, URINE 5-10 /HPF [facility] PH UA 6.0 5.0 - 8.0 [facility] KETONES UA Negative Negative [facility] WBC UA 1 0 - 5 /HPF [facility] CLARITY UA Slt. Cloudy(A) Clear [facility] PROTEIN UA Negative Negative [facility] BILIRUBIN UA Negative Negative [facility] LEUKOCYTE ESTERASE UA Negative Negative [facility] BACTERIA UA 1+(A) None Seen /HPF [facility] SPECIFIC GRAVITY UA 1.009 1.001 - 1.035 [facility] BLOOD UA Negative Negative [facility] GLUCOSE UA Negative Negative [facility] Urine, clean catch 04/14/2007 3:34 PM SENIOR ECOLOGIST 04/14/2007 8:28 PM SENIOR ECOLOGIST Gilberto Leung MD URINE ORDERABLES Final Resul t Performing Organization Address [facility]/ZIP Co de Phone Number [facility] [address] [place] [address] * TSH (04/14/2007 3:34 PM SENIOR ECOLOGIST) TSH 3.89 0.27 - 4.20 uU/mL [facility] Blood specimen (specimen) 04/14/2007 3:34 PM SENIOR ECOLOGIST 04/14/2007 8:28 PM SENIOR ECOLOGIST us Gilberto Leung MD CHEMISTRY ORDERABLES Final R esult Performing Organization Address [facility] Co de Phone Number [facility] [address] [place] [address] * T4 FREE (04/14/2007 3:34 PM SENIOR ECOLOGIST) T4 FREE 1.1 0.9 - 1.7 ng/dL [facility] Blood specimen (specimen) 04/14/2007 3:34 PM SENIOR ECOLOGIST 04/14/2007 8:28 PM SENIOR ECOLOGIST us Gilberto Leung MD CHEMISTRY ORDERABLES Final R esult Performing Organization Address [facility] Co de Phone Number [facility] [address] [place] [address] * T3 FREE (04/14/2007 3:34 PM SENIOR ECOLOGIST) T3 FREE 3.4 2.5 - 4.4 pg/mL [facility] Blood specimen (specimen) 04/14/2007 3:34 PM SENIOR ECOLOGIST 04/14/2007 8:28 PM SENIOR ECOLOGIST us Gilberto Leung MD CHEMISTRY ORDERABLES Final R esult Performing Organization Address City/[facility]/ZIP Co de Phone Number [facility] [address], [place] [address] * MICROALBUMIN/CREATININE RATIO, RANDOM UR (04/14/2007 3:34 PM SENIOR ECOLOGIST) Pathologist [facility] MICROALBUMIN/C REAT RATIO, UR <5 0 - 29 mg/g creatinine [facility] Urine specimen (specimen) 04/14/2007 3:34 PM SENIOR ECOLOGIST 04/14/2007 8:28 PM SENIOR ECOLOGIST Gilberto Leung MD URINE ORDERABLES Final Resul t [facility] [address] [place] [address] * (ABNORMAL) CBC WITH DIFFERENTIAL (04/14/2007 3:34 PM SENIOR ECOLOGIST) Pathologist [facility] MCHC 33.6 31.5 - 35.5 % [facility] MCV 93.9 82.0 - 99.0 fL [facility] HEMOGLOBIN 15.0(H) 11.8 - 14.8 g/dL [facility] RDW 14.4 11.5 - 14.5 % [facility] MPV 12.2 9.3 - 12.4 fL [facility] WBC 12.2(H) 4.0 - 9.8 K/uL [facility] MCH 31.5 27.2 - 32.6 pg [facility] PLATELETS 341 140 - 350 K/uL [facility] HEMATOCRIT 44.7(H) 35.5 - 44.0 % [facility] RDW-STDEV 48.8(H) 37.1 - 48.7 fL [facility] RBC 4.76 3.90 - 4.90 M/uL [facility] EOSINOPHILS 0 0 - 7 % [facility] EOSINOPHIL ABSOLUTE 0.03 0.00 - 0.70 K/uL [facility] LYMPHOCYTES 22 16 - 45 % [facility] LYMPHOCYTE ABSOLUTE 2.69 0.70 - 4.50 K/uL [facility] BASOPHILS 0 0 - 2 % [facility] BASOPHILS ABSOLUTE 0.03 0.00 - 0.20 K/uL [facility] MONOCYTES 11 3 - 13 % [facility] MONOCYTE ABSOLUTE 1.39(H) 0.10 - 1.30 K/uL [facility] NEUTROPHILS 66 45 - 70 % [facility] NEUTROPHIL ABSOLUTE 8.05(H) 1.90 - 7.00 K/uL [facility] Blood specimen (specimen) 04/14/2007 3:34 PM SENIOR ECOLOGIST 04/14/2007 8:28 PM SENIOR ECOLOGIST Gilberto Leung MD HEMATOLOGY ORDERABLES Edited INTERFACE SYSTEM Refer to clinic/hospital department [facility] [address] [place] [address] documented in this encounter Visit Diagnoses Diagnosis Elevated blood pressure reading without diagnosis of hypertension documented in this encounter Additional Health Concerns Infection Onset Date Last Indicated Resolved Time R/O GI Pathogen 10/06/2024 10/07/2024 10/07/2024 1 1:33 PM CDT C Diff 10/07/2024 10/07/2024 R/O GI Pathogen 10/13/2024 10/13/2024 10/13/2024 1 1:33 AM CDT R/O GI Pathogen 10/16/2024 10/17/2024 10/17/2024 4 :45 AM CDT documented as of this encounter Care Teams Drafter Civil Relationship Specialty Start Date End Date Tawnya Lane DO [address] [place] [phone] PCP - General Family Practice 10/24/24 documented as of this encounter
--- OUTSIDE RECORDS SUMMARY | 2024-10-26 12:17 | XMS_ITS | Encounter Summary ---
Author Organization [facility] Address [address] [place] [address] Care Team Providers Care Calender Roll Operator Name Role Phone Aguila Castro MD Primary Care Provider + Encounter Details Date Type Department Care Team (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 Gender Identity Not on file Sexual Orientation Not on file documented as of this encounter Plan of Treatment Upcoming Encounters Date Type Department Care Team (Late Contact Info) Description 12/07/2024 7:30 AM CDT Office Visit [facility]ology- [place] [facility] [facility] [address] [place] [address] Melquiades Ken FNP [address] [facility] [address] [place] [address] documented as of this encounter Visit Diagnoses Not on filedocumented in this encounter Additional Health Concerns Infection Onset Date Last Indicated Resolved Time C Diff 10/07/2024 10/07/2024 documented as of this encounter Care Teams Calender Roll Operator Relationship Specialty Start Date End Date Aguila Castro MD [address] [phone] PCP - General Family Practice 05/26/21 10/23/24 documented as of this encounter
--- OUTSIDE RECORDS SUMMARY | 2024-10-26 12:17 | XMS_ITS | Encounter Summary ---
Author Organization [facility] Address [address] [place] [address] Care Team Providers Care Campground Cleaning Attendant Name Role Phone Unavailable Primary Care Provider Unavailabl e Encounter Details Date Type Department Care Team (Latest Contact Info) Description 09/30/2005 Outpatient Historical [facility] Orthopedics- [address] [place] 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
--- OUTSIDE RECORDS SUMMARY | 2024-10-26 12:17 | XMS_ITS | Encounter Summary ---
Author Organization [facility] Address [address] [place] [address] Care Team Providers Care Family Worker Name Role Phone Unavailable Primary Care Provider Unavailabl e Encounter Details Date Type Department Care Team (Latest Contact Info) Description 08/06/1998 Outpatient Historical [facility] Oral and Maxillo Surgery[address] [place] [address] Bill Box, DDS NO ADDRESS ON FILE Dental caries (Primary Dx); Chronic gingivitis; Unspecified disorder of the teeth and supporting structures Social History Tobacco Use Types Packs/Day Years Used Date Smoking Tobacco: Never Assessed Comments Unknown Sex and Gender Information Value Date Recorded Sex Assigned at Not on file 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
--- OUTSIDE RECORDS SUMMARY | 2024-10-26 12:17 | XMS_ITS | Encounter Summary ---
Author Organization [facility] Address [address] [place] [address] Care Team Providers Care Try On Baster Name Role Phone Unavailable Primary Care Provider Unavailabl e Encounter Details Date Type Department Care Team (Latest Contact Info) Description 05/26/2006 Outpatient Historical [facility] Orthopedics- [address] [place] 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
--- OUTSIDE RECORDS SUMMARY | 2024-10-26 12:17 | XMS_ITS | Encounter Summary ---
Author Organization [facility] Address [address] [place] [address] Care Team Providers Care Belt Builder Helper Name Role Phone Unavailable Primary Care Provider Unavailabl e Encounter Details Date Type Department Care Team (Latest Contact Info) Description 03/24/2006 Outpatient Historical [facility] Orthopedics- [address] [place] 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
--- OUTSIDE RECORDS SUMMARY | 2024-10-26 12:17 | XMS_ITS | Encounter Summary ---
Author Organization [facility] Address [address] [place] [address] Care Team Providers Care Water Chemist Name Role Phone Unavailable Primary Care Provider Unavailabl e Encounter Details Date Type Department Care Team (Latest Contact Info) Description 06/27/1998 Outpatient Historical [facility] Oral and Maxillo Surgery[address] [place] [address] Bill Box, DDS NO ADDRESS ON FILE Dental caries (Primary Dx); Unspecified disorder of the teeth and supporting structures; Periapical abscess Social History Tobacco Use Types Packs/Day Years Used Date Smoking Tobacco: Never Assessed Comments Unknown Sex and Gender Information Value Date Recorded Sex Assigned at Not on file 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
--- OUTSIDE RECORDS SUMMARY | 2024-10-26 12:17 | XMS_ITS | Encounter Summary ---
Author Organization [facility] Address [address] [place] [address] Care Team Providers Care Territory Sales Manager Name Role Phone Tawnya Lane DO Primary Care Provider +1- [phone] Encounter Details Date Type Department Care Team (Late st Contact Info) Description 10/13/2024 Results Follow-Up [facility] Emergency Department [address] [place] [address] Blanca Harris RN [address] [place] [address] CELL COUNT WITH DIFFERENTIAL, BODY FLUID, LACTATE DEHYDROGENASE, BODY FLUID, PROTEIN, BODY FLUID, Additional followed-up results: 3 Social History Tobacco Use Types Packs/Day Years Used Date Smoking Tobacco: Every Day Cigarettes Smokeless Tobacco: Never Alcohol Use Standard Drinks/Week Comments Not Currently 0 (1 standard drink = 0.6 oz pur e alcohol) rare Feeling Safe Answer Date Recorded Are you in a relationship wi th someone who hurts you emotionally and/or physically? 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 [place] [address] Jesus Manuel MandysethpanchitoPETR [address] [place] [address] documented as of this encounter Visit Diagnoses Not on filedocumented in this encounter Additional Health Concerns Infection Onset Date Last Indicated Resolved Time C Diff 10/07/2024 10/07/2024 R/O GI Pathogen 10/13/2024 10/13/2024 10/13/2024 1 1:33 AM CDT R/O GI Pathogen 10/16/2024 10/17/2024 10/17/2024 4 :45 AM CDT documented as of this encounter Care Teams Territory Sales Manager Relationship Specialty Start Date End Date Tawnya Lane DO [address] [place] [phone] PCP - General Family Practice 10/24/24 documented as of this encounter
--- OUTSIDE RECORDS SUMMARY | 2024-10-26 12:17 | XMS_ITS | Encounter Summary ---
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
--- OUTSIDE RECORDS SUMMARY | 2024-10-26 12:17 | XMS_ITS | Encounter Summary ---
Author Organization [facility] Address [address] [place] [address] Care Team Providers Care Mophead Trimmer And Wrapper Name Role Phone Unavailable Primary Care Provider Unavailabl e Encounter Details Date Type Department Care Team (Latest Contact Info) Description 12/31/2005 Outpatient Historical [facility] Orthopedics- [address] [place] 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
--- OUTSIDE RECORDS SUMMARY | 2024-10-26 12:17 | XMS_ITS | Encounter Summary ---
Author Organization [facility] Address [address] [place] [address] Care Team Providers Care Sas Programmer Analyst Name Role Phone Unavailable Primary Care Provider Unavailabl e Encounter Details Date Type Department Care Team (Latest Contact Info) Description 12/09/2005 Outpatient Historical [facility] Orthopedics- [address] [place] 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
--- OUTSIDE RECORDS SUMMARY | 2024-10-26 12:17 | XMS_ITS | Clinical Summary ---
Author Organization [facility] Address [address] 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
--- OUTSIDE RECORDS SUMMARY | 2024-10-26 12:18 | XMS_ITS | Encounter Summary ---
Author Organization [facility] Address [address] [place] [address] Care Team Providers Care Mobile Application Developer Name Role Phone Tawnya Lane Primary Care Provider +1- [phone] Encounter Details Date Type Department Care Team (Late Contact Info) Description 10/25/[address] 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 Gender Identity Not on file Sexual Orientation Not on file documented as of this encounter Plan of Treatment Upcoming Encounters Date Type Department Care Team (Late Contact Info) Description 12/07/2024 7:30 AM CDT Office Visit [facility] Gastroenterology- [place] [address] [address] Melquiades Ken FNP [address] [address] documented as of this encounter Procedures Procedure Name Priority Date/Time Associated Diagnosis Comments COMPREHENSIVE METABOLIC PANEL Routine 10/16/2024 3:43 PM CDT documented in this encounter Results * COMPREHENSIVE METABOLIC PANEL (10/16/2024 3:43 PM CDT) Blood us Abstract Provider CHEMISTRY ORDERABLES Final Res ult documented in this encounter Visit Diagnoses Not on filedocumented in this encounter Additional Health Concerns Infection Onset Date Last Indicated Resolved Time C Diff 10/07/2024 10/07/2024 documented as of this encounter Care Teams Mobile Application Developer Relationship Specialty Start Date End Date Tawnya Lane DO [address] [place] [phone] PCP - General Family Practice 10/24/24 documented as of this encounter
--- OUTSIDE RECORDS SUMMARY | 2024-10-26 12:18 | XMS_ITS | Encounter Summary ---
Author Organization [facility] Address [address] [place] [address] Care Team Providers Care Tableau Report Developer Name Role Phone Tawnya Lane DO Primary Care Provider [phone]- [phone] Reason for Visit * Reason Onset Date Comments Question 10/25/2024 Encounter Details Date Type Department Care Team (Late st Contact Info) Description 10/25/2024 Telephone [facility] [place] Spec [place] [facility] 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 No answer. LVM with call back number provided. documented in this encounter Plan of Treatment Upcoming Encounters Date Type Department Care Team (Late st Contact Info) Description 12/07/2024 7:30 AM CDT Office Visit [facility] Gastroenterology- [place] [address] [place] [address] Melquiades Ken FNP [address] [place] [address] documented as of this encounter Visit Diagnoses Not on filedocumented in this encounter Additional Health Concerns Infection Onset Date Last Indicated Resolved Time C Diff 10/07/2024 10/07/2024 documented as of this encounter Care Teams Tableau Report Developer Relationship Specialty Start Date End Date Tawnya Lane DO [address] [place] [id number] PCP - General Family Practice 10/24/24 documented as of this encounter
--- OUTSIDE RECORDS SUMMARY | 2024-10-26 12:18 | XMS_ITS | Encounter Summary ---
Author Organization [facility] Address 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 Gender Identity Not on file Sexual Orientation Not on file documented as of this encounter Plan of Treatment Upcoming Encounters Date Type Department Care Team (Late st Contact Info) Description 12/07/2024 7:30 AM CDT Office Visit [facility]- [place] [address] [facility] [address] [place] [address] Melquiades Ken FNP [address] [address] documented as of this encounter Procedures Procedure Name Priority Date/Time Associated Diagnosis Comments PROTIME-INR Routine 10/16/2024 documented in this encounter Results * PROTIME-INR (10/16/2024) ABSTRACTED PROTIME 20.5 ABSTRACTED INR 1.65 Blood 10/16/2024 us Abstract Provider HEMATOLOGY ORDERABLES Final Re sult documented in this encounter Visit Diagnoses Not on filedocumented in this encounter Additional Health Concerns Infection Onset Date Last Indicated Resolved Time C Diff 10/07/2024 10/07/2024 documented as of this encounter Care Teams Human Intelligence Relationship Specialty Start Date End Date Tawnya Lane DO [address] [place] [phone] PCP - General Family Practice 10/24/24 documented as of this encounter
--- OUTSIDE RECORDS SUMMARY | 2024-10-26 12:19 | XMS_ITS | Clinical Summary ---
Author Organization [facility] tone Address [address] [place] [address] Care Team Providers Care Flight Engineer Instructor Name Role Phone Tawnya Lane Primary Care Provider [phone] Allergies Active Allergy Reactions Criticality Noted Date [...] for Nausea. 02/02/20 23 Active IRON PS [id number] IC ACID ORAL Take by mouth. Ac tive HYDROcodone-spencer taminophen (NORCO) 5-325 mg tablet Take by mouth. PRN 01/25/20 23 Active tiZANidine (ZANAFLEX) 4 mg Tablet 09/07/19 25 Active carvediloL (Coreg) 6.25 mg tablet Take 1 Tablet (6.25 mg) by mouth daily. 30 Tablet 3 10/04/19 25 Active sodium chloride 0.9 % Parenteral Solution with iron sucrose 100 mg iron/5 mL Solution Inject by intravenous injection one time only. Active oxyCODONE-aceta minophen (Percocet) 5-325 mg tabletIndicatio ns:Hemorrhoids, unspecified hemorrhoid type Take 1 Tablet by mouth every 4 hours as needed for Pain, Moderate. Max Daily Amount: 6 Tablets 30 Tablet 10/20/19 25 Active pantoprazole (PROTONIX) 40 mg Tablet, Delayed Release (E.C.) Take 1 Tablet (40 mg) by mouth 2 times daily. 60 Tablet 10/24/19 25 Active lactulose (ENULOSE) 10 gram/15 mL oral solution Take 30 mL by mouth daily. 900 mL 10/24/19 25 025 Active pantoprazole (PROTONIX) 40 mg Tablet, Delayed Release (E.C.) Take 1 tablet by mouth twice daily 60 Tablet 2 07/12/19 25 025 Discontinued PEG-Electrolyte Soln (NULYTELY) 420 g Recon Soln Take 4,000 mL by mouth one time only for 1 dose. Mix according to instructions, then drink 1/2 the evening prior to procedure and remaining 1/2 the morning of procedure. Must be completed 2 hours before procedure. 4000 mL 09/19/19 025 Discontinued simethicone 125 mg Tablet, Chewable Dispense (3) 125 mg Simethicone chewable tablets with prep as directed. 3 Tablet 09/19/19 025 Discontinued pantoprazole (PROTONIX) 40 mg Tablet, Delayed Release (E.C.) Take 1 Tablet (40 mg) by mouth 2 times daily. 60 Tablet 10/09/19 25 025 Discontinued vancomycin (VANCOCIN) 125 mg Capsule Take 1 Capsule (125 mg) by mouth every 6 hours for 12 days. 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 difficile colitis 10/16/2024 Gastrointestinal hemorrhage 10/07/2024 Acute blood loss anemia [...] Date Type Department Care Team Description 5 Orders Only [facility] [address] [place] [phone] Provider, Abstract 5 Abstract [facility] [address] [place] [phone] Provider, Abstract 5 Telephone [facility] Gen Spec Surg [place] [address] [facility] [address] [place] [address] Crescencio Aguero MD Question 5 External Device Data STL ABSTRACTION Provider, Abstract 5 12:04 PM CDT Anesthesia Event [facility] Operating Room [address] [place] [phone] Oliver Reid MD Brant, Jonathan Casey, LUCA 5 12:00 PM CDT - 5 1:14 PM CDT Surgery [facility] Operating Room [address] [place] [address] Crescencio Aguero MD HEMORRHOIDECTOMY 5 Results Follow-Up [facility] G[facility]ology - [place] [address] [facility] [facility] [address] [place] [address] Julianne David, DO PATHOLOGY 5 12:06 PM CDT Anesthesia Event [facility] Endoscopy [address] [place] [address] Chan Anderson MD 5 11:00 AM CDT - 5 11:20 AM CDT [facility] Endoscopy [address] [place] [address] Julianne David, DO COLONOSCOPY 5 External Device Data STL ABSTRACTION Provider, Abstract 5 7:49 PM CDT - 5 1:20 PM CDT Hospital Encounter [facility] Medical Telemetry [address] [place] [phone] Je Garnett MD Saeed, Mariam, MD Lohia, MD Antonio Evans III, Jeb ODO Rojas, MD Ramirez Keita, MD Jaden Lower GI hemorrhage Discharge Disposition: Home or Self Care 5 7:00 AM CDT - 5 7:20 AM CDT [facility] Endoscopy [address] [place] [phone] Mayo Taylor MD ESOPHAGOGASTRODUODENOSCOPY 5 External Device Data STL ABSTRACTION Provider, Abstract 5 External Device Data STL ABSTRACTION Provider, Abstract 5 8:38 AM CDT - 5 1:27 PM CDT Emergency [facility] Emergency Department [address] [place] [phone] Colt Tavera MD Cirrhosis of liver with ascites, unspecified hepatic cirrhosis type (CMS/HCC) (Primary Dx); Abdominal distention; Gastritis without bleeding, unspecified chronicity, unspecified gastritis type Discharge Disposition: Home or Self Care 5 Results Follow-Up [facility] Emergency Department [address] [place] [phone] Blanca Harris RN CELL COUNT WITH DIFFERENTIAL, BODY FLUID, LACTATE DEHYDROGENASE, BODY FLUID, PROTEIN, BODY FLUID, Additional followed-up results: 3 5 Travel 5 External Device Data STL ABSTRACTION Provider, Abstract 5 External Device Data STL ABSTRACTION Provider, Abstract 5 Orders Only [facility] [address] [place] [phone] Provider, Abstract 5 Abstract [facility] [address] [place] [phone] Provider, Abstract 5 9:52 AM CDT Anesthesia Event [facility] Endoscopy [address] [place] [phone] Rolando Sierra MD Le, Oliver Hansen, AA 5 9:20 AM CDT - 5 9:40 AM CDT Surgery [facility] Endoscopy [address] [place] [phone] Carmine Dubois MD ESOPHAGOGASTRODUODENOSCOPY 5 7:54 PM CDT - 5 3:59 PM CDT Hospital Encounter [facility] 3B Surgical [address] [place] [phone] Mohit Gomez MD Brooks, Cynthia J, DO Suthar, Chandan Mal, MD Gastrointestinal hemorrhage Discharge Disposition: Home or Self Care 5 8:20 AM CDT - 5 8:40 AM CDT Surgery [facility] Endoscopy [address] [place] [phone] Jayla, Christopher D, DO ESOPHAGOGASTRODUODENOSCOPY 5 8:03 AM CDT Anesthesia Event [facility] Endoscopy [address] [place] [address] Mayo Roa, 5 7:15 AM CDT - 5 9:15 AM CDT Hospital Encounter [facility] Endoscopy [address] [place] [address] Carmine Dickerson, DO Discharge Disposition: Home or Self Care 5 External Device Data STL ABSTRACTION Provider, Abstract 5 External Device Data STL ABSTRACTION Provider, Abstract 5 Telephone [facility] [address] [address] Gera Resendez, DO Documentation Only 5 External Device Data STL ABSTRACTION Provider, Abstract 5 External Device Data STL ABSTRACTION Provider, Abstract 5 [facility] [address] [phone] Gera Resendez, DO Documentation Only [address] [phone] Gera Resendez, DO Documentation 5 11:30 AM CDT Office Visit [address] [phone] Gera Resendez, DO Cirrhosis of liver without [...] file Legal 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 Gender Identity Not on file Sexual Orientation [...] Mass Index 21.16 10/16/2024 10:30 PM CDT Plan of Treatment Upcoming Encounters Date Type Department Care Team (Late st Contact Info) Description 12/07/2024 7:30 AM CDT Office Visit [facility] [place] [address] [facility] [address] [place] [address] Melquiades Ken FNP [address] [facility] [address] [place] [address] Health Maintenance Due Date Last Done Comments DTAP/TDAP/TD VACCINES (1 - Tdap) 07/17/1983 HPV/Cotest (21-29) 1985 CERVICAL CANCER SCREENING 1994 HPV/Cotest (30-65) 1994 PAP SMEAR 1994 BREAST CANCER SCREENING 2004 FIT-DNA Q 3 years 2009 FIT/FOBT Q 1 year 2009 Flex Sig/CT Colonography Q 5 years 2009 ZOSTER VACCINE (1 of 2) 2014 Medicare Advantage ([place]) Preventative Visit/Annual Wellness Visit 02/22/2024 HEPATITIS B VACCINES (1 of 3 - Risk 3-dose series) 2024 RSV VACCINE (60+ or ) (1 - Risk 60-74 years 1-dose series) 2024 INFLUENZA VACCINE (#1) 2024 , 11/05/2010, 12/12/2008, Additional history exists COLORECTAL SCREENING 10/18/2031 10/17/2024, 10/17/2024, 10/03/2024, Additional history exists Colorectal Cancer Screening 10/18/2031 Medical Devices Implanted Type Area Shingle Cutter Device Identifier Shelf Expiration Date Model / Serial / Lot Hemostatic Surgicel 1x2in 1960 - [id number] Implanted:Qty: 1 on 10/19/2024 by Crescencio Aguero MD at [facility] Hemostatic N/A: Rectum [employer] [id number] 01/20/20261960 / / [id number] Explanted Type Area Shingle Cutter Device Identifier Shelf Expiration Date Model / Serial / Lot 6.5 Cannulated Screw Explanted:Qty: 1 on 05/27/2021 at [facility] Right: Tibia 6.5 Cannulated Screw Explanted:Qty: 1 on 05/27/2021 at [facility] Right: Tibia 6.5 Cannulated Screw Explanted:Qty: 1 on 05/27/2021 at [facility] Right: Tibia 13mm Washer Explanted:Qty: 1 on 05/27/2021 at [facility] Right: Tibia Procedures Procedure Name Priority Date/Time Associated Diagnosis Comments TELEMETRY REPORT 10/25/2024 2:18 PM CDT US ASPIRATION ABDOMEN Routine 10/23/2024 10:27 AM CDT HEMOGLOBIN AND HEMATOCRIT Routine 2024 9:24 AM CDT COMPREHENSIVE METABOLIC PANEL Routine 4:55 AM CDT CBC WITH DIFFERENTIAL Routine 10/23/2024 4:55 AM CDT HEMOGLOBIN AND HEMATOCRIT Routine 2024 10:52 PM CDT POC GLUCOSE Routine 10/22/2024 12:49 PM CDT HEMOGLOBIN AND HEMATOCRIT Routine 2024 9:23 AM CDT COMPREHENSIVE METABOLIC PANEL Routine 5:14 AM CDT CBC WITH DIFFERENTIAL Routine 10/22/2024 5:14 AM CDT HEMOGLOBIN AND HEMATOCRIT Routine 2024 10:15 PM CDT HEMOGLOBIN AND HEMATOCRIT Routine 2024 9:33 AM CDT POC GLUCOSE Routine 10/21/2024 7:55 AM CDT COMPREHENSIVE METABOLIC PANEL Routine 6:11 AM CDT CBC WITH DIFFERENTIAL Routine 10/21/2024 6:11 AM CDT HEMOGLOBIN AND HEMATOCRIT Routine 2024 9:03 PM CDT POC GLUCOSE Routine 10/20/2024 5:03 PM CDT POC GLUCOSE Routine 10/20/2024 12:52 PM CDT HEMOGLOBIN AND HEMATOCRIT Routine 2024 9:17 AM CDT POC GLUCOSE Routine 10/20/2024 8:39 AM CDT COMPREHENSIVE METABOLIC PANEL Routine 3:02 AM CDT CBC WITH DIFFERENTIAL Routine 10/20/2024 3:02 AM CDT HEMOGLOBIN AND HEMATOCRIT Routine 2024 7:38 PM CDT POC GLUCOSE Routine 10/19/2024 4:36 PM CDT POC GLUCOSE Routine 10/19/2024 1:19 PM CDT PATHOLOGY Pathology 10/19/2024 12:41 PM CDT HI ANES INSERT ENDOTRACHEAL AIRWAY Routine 10/19/2024 12:20 PM CDT HEMORRHOIDECTOMY 10/19/2024 12:00 PM CDT TRANSFUSE PACKED RED BLOOD CELLS Routine 10/19/2024 9:19 AM CDT POC GLUCOSE Routine 10/19/2024 7:20 AM CDT PREPARE RED BLOOD CELLS Routine 10/20/19 6:29 AM CDT PREPARE RED BLOOD CELLS Routine 10/20/19 6:09 AM CDT PREPARE RED BLOOD CELLS Routine 10/20/19 6:09 AM CDT MAGNESIUM LEVEL Routine 10/19/2024 5:52 AM CDT CBC WITH DIFFERENTIAL Routine 10/19/2024 5:52 AM CDT HEMOGLOBIN AND HEMATOCRIT Routine 2024 9:30 PM CDT POC GLUCOSE Routine 10/18/2024 4:21 PM CDT POC GLUCOSE Routine 10/18/2024 11:49 AM CDT CELL COUNT WITH DIFFERENTIAL , BODY FLUID Routine 10/18/2024 10:45 AM CDT C-REACTIVE PROTEIN Routine 10/18/2024 7:13 AM CDT MAGNESIUM LEVEL Routine 10/18/2024 7:13 AM CDT COMPREHENSIVE METABOLIC PANEL Routine 7:13 AM CDT CBC WITH DIFFERENTIAL Routine 10/18/2024 7:13 AM CDT HEMOGLOBIN AND [...] BLOOD CELLS Routine 10/17/2024 8:42 AM CDT PHOSPHORUS Routine 10/17/2024 5:56 AM CDT MAGNESIUM LEVEL Routine 10/17/2024 5:56 AM CDT COMPREHENSIVE METABOLIC PANEL Routine 5:56 AM CDT CBC WITH DIFFERENTIAL Routine 10/17/2024 5:56 AM CDT HELICOBACTER PYLORI ANTIGEN, STOOL Routine 10/17/2024 3:10 AM CDT GI PATHOGEN PCR PANEL Stat 10/17/2024 3:10 AM CDT HEMOGLOBIN AND HEMATOCRIT Routine 2024 12:37 AM CDT UPPER ENDOSCOPY REPORT 11:13 PM CDT TYPE AND SCREEN Stat 10/16/2024 8:42 PM CDT MAGNESIUM LEVEL Stat 10/16/2024 8:42 PM CDT LACTIC ACID Stat 10/16/2024 8:42 PM CDT COMPREHENSIVE METABOLIC PANEL Stat 8:42 PM CDT PTT Stat 10/16/2024 8:42 PM CDT PROTIME-INR Stat 10/16/2024 8:42 PM CDT CBC WITH DIFFERENTIAL Stat 10/16/2024 8:42 PM CDT PREPARE RED BLOOD CELLS Routine 10/17/19 8:29 PM CDT PREPARE RED BLOOD CELLS Routine 10/17/19 8:29 PM CDT PREPARE RED BLOOD CELLS Routine 10/17/19 8:29 PM CDT PREPARE RED BLOOD CELLS Stat 10/17/19 8:29 PM CDT EKG 12-LEAD Stat 10/16/2024 8:23 PM CDT CRITICAL CARE Routine 10/16/2024 7:49 PM CDT COMPREHENSIVE METABOLIC PANEL Routine 3:43 PM CDT ESOPHAGOGASTRODUODENOSCOPY 10/16 7:00 AM CDT PROTIME-INR Routine 10/16/2024 US ASPIRATION ABDOMEN Stat 10/13/2024 1:00 PM CDT CYTOLOGY, NON GYNE Stat 10/13/2024 12:51 PM CDT ALBUMIN LEVEL, BODY FLUID Stat [...] CDT UPPER ENDOSCOPY REPORT 8:36 AM CDT HI COLONOSCOPY FLX DX W/MIRIAM J SPEC WHEN PFRMD 10/03/2024 8:20 AM CDT Melena Case Notes Procedure :DBL Special Notes: Trazodone,Hydrocodone,Varices Dx: Melena BT:NONE BT managed by: Diabetic: NO Diabetic/WT med:NONE LOC & REASON:Hosp-Medical BMI: 22.45 Last Procedure date & location: EGD,05/15,Hosp Referring Provider: Tawnya Lane DO GI Doc:Dr Carmine Dickerson Insurance: [employer] Medicare/Medicaid Last GI appt 08/28/24 [place] ESOPHAGOGASTRODUODENOSCOP Y TRANSORAL DIAGNOSTIC 10/03/2024 8:20 AM [...] CDT from Last 3 Months Results * TELEMETRY REPORT (10/25/2024 2:18 PM CDT) Only the most recent of2 resultswithin the time period is included. us Provider Scanning ECG ORDERABLES Final Result * US ASPIRATION ABDOMEN (10/23/2024 10:27 AM CDT) Only the most recent of2 resultswithin the time period is included. Anatomical Region Laterality Modality Abdomen Ultrasound 10/23/2024 [...] needle course. Insertion of a 10-cm 5 Upper Sorbian Talking Layers centesis catheter, through which approximately 2200 ml [...] needle course. Insertion of a 10-cm 5 Upper Sorbian Yueh centesis catheter, through which approximately 2200 ml of a clear yellow ascites was then drained via wall suction. The centesis catheter was removed in its entirety, the chlorhexidine cleansed from the skin, and a sterile dressing placed. Patient tolerated the procedure well without complication. Estimated Blood Loss: Minimal us Jaden Guzmán MD US ORDERABLES Final Result * (ABNORMAL) HEMOGLOBIN AND HEMATOCRIT (10/23/2024 9:24 AM CDT) Only the most recent of16 resultswithin the time period is included. HEMOGLOBIN 8.1(L) 12.0 - 16.0 g/dL 10/23/2024 9:34 AM CDT [facility] HEMATOCRIT 25.5(L) 36.0 - 46.0 % 10/23/2024 9:34 AM CDT [facility] Blood Venipuncture / Unknown 10/23/2024 9:24 AM CDT 10/23/2024 9:28 AM CDT Crescencio Aguero MD HEMATOLOGY ORDERABLES Final Res ult [facility] [id number] [address] [place] [address] * (ABNORMAL) CBC WITH DIFFERENTIAL (10/23/2024 4:55 AM CDT) Only the most recent of10 resultswithin the time period is included. WBC 6.2 4.8 - 10.8 K/uL 10/23/2024 5:51 AM CDT [facility] NRBCS 3(H) <1 % 10/23/2024 5:51 AM CDT [facility] RBC 2.79(L) 4.20 - 5.40 M/uL 10/23/2024 5:51 AM CDT [facility] HEMOGLOBIN 7.7(L) 12.0 - 16.0 g/dL 10/23/2024 5:51 AM [facility] HEMATOCRIT 24.1(L) 36.0 - 46.0 % 10/23/2024 5:51 AM [facility] MCV 86.4 84.0 - 103.0 fL 10/23/2024 5:51 AM [facility] MCH 27.6 27.0 - 34.0 pg 10/23/2024 5:51 AM [facility] MCHC 32.0 30.0 - 35.0 g/dL 10/23/2024 5:51 AM [facility] PLATELETS 241 140 - 440 K/uL 10/23/2024 5:51 AM [facility] MPV 11.1 8.9 - 12.8 fL 10/23/2024 5:51 AM [facility] RDW 17.2(H) 11.0 - 14.5 % 10/23/2024 5:51 AM [facility] RDW-STDEV 53.6 37.0 - 54.0 fL 10/23/2024 5:51 AM [facility] NEUTROPHILS 70 42 - 75 % 10/23/2024 5:51 AM [facility] LYMPHOCYTES 12(L) 24 - 44 % 10/23/2024 5:51 AM [facility] MONOCYTES 17(H) 2 - 10 % 10/23/2024 5:51 AM [facility] EOSINOPHILS 1 0 - 7 % 10/23/2024 5:51 AM [facility] BASOPHILS 0 0 - 1 % 10/23/2024 5:51 AM [facility] IMMATURE GRANULOCYTES 1 0 - 2 % 10/23/2024 5:51 AM [facility] NEUTROPHIL ABSOLUTE 4.34 2.00 - 8.00 K/uL 10/23/2024 5:51 AM [facility] LYMPHOCYTE ABSOLUTE 0.75(L) 1.20 - 4.00 K/uL [...] ult [facility] CLIA # [id number] [address] [place] [address] * (ABNORMAL) COMPREHENSIVE METABOLIC PANEL (10/23/2024 4:55 AM CDT) Only the most recent of11 resultswithin the time period is included. SODIUM 135(L) 136 - 145 mmol/L 10/23/2024 6:27 AM CDT [facility] POTASSIUM 3.9 3.5 - 5.1 mmol/L 10/23/2024 6:27 AM CDT [facility] CHLORIDE 103 98 - 107 mmol/L 10/23/2024 6:27 AM CDT [facility] CO2 22 22 - 29 mmol/L 10/23/2024 6:27 AM T [facility] CALCIUM 8.0(L) 8.8 - 10.2 mg/dL 10/23/2024 6:27 AM [facility] BUN 8 8 - 23 mg/dL 10/23/2024 6:27 AM [facility] CREATININE 0.71 0.51 - 0.95 mg/dL 10/23/2024 6:27 AM [facility] GLUCOSE 103(H) 74 - 99 mg/dL 10/23/2024 6:27 AM [facility] TOTAL PROTEIN 5.1(L) 6.4 - 8.3 g/dL 10/23/2024 6:27 AM [facility] ALBUMIN 3.0(L) 3.5 - 5.2 g/dL 10/23/2024 6:27 AM [facility] BILIRUBIN TOTAL 0.4 0.0 - 1.0 mg/dL 10/23/2024 6:27 AM [facility] ALKALINE PHOSPHATASE 82 35 - 104 U/L 10/23/2024 6:27 AM [facility] AST 24 10 - 35 U/L 10/23/2024 6:27 AM [facility] ALT 18 <=35 U/L 10/23/2024 6:27 AM [facility] GFR >60 >=60 mL/min/1.7 3 sq meter 10/23/2024 6:27 AM [facility] Comment:eGFR calculated with 2020 CKD-EPI equation. Vegetarian diet, extremely high or low muscle mass, and may affect results. Cystatin C with Glomerular Filtration Rate is a suitable alternative for these patients. ANION GAP 10 9 - 20 mmol/L 10/23/2024 6:27 AM [facility] Blood Venipuncture / Unknown 10/23/2024 4:55 AM CDT 10/23/2024 5:54 AM T us Jaden Guzmán MD CHEMISTRY ORDERABLES Final Resul t [facility] CLIA # [id number] [id number] [place] [address] * POC GLUCOSE (10/22/2024 12:49 PM CDT) Only the most recent of10 resultswithin the time period is included. GLUCOSE POC 93 74 - 99 mg/dL 10/22/2024 12:49 PM CDT [facility] SPECIMEN SOURCE, GLUCOSE POC Capillary 10/22/2024 12:49 PM CDT [facility] Blood, whole 10/22/2024 12:4 9 PM CDT 10/22/2024 1:02 PM CDT Jaden Guzmán MD POINT OF CARE TESTING Final Resu lt [facility] CLIA # [id number] [facility] [address] [address] * TRANSFUSE RED BLOOD CELLS (10/19/2024 1:19 PM CDT) Only the most recent of2 resultswithin the time period is included. Jaden Guzmán MD BLOOD TRANSFUSION ORDERABLES Fin al Result * PATHOLOGY (10/19/2024 12:41 PM CDT) Only the most recent of3 resultswithin the time period is included. CASE REPORT Surgical Pathology Report Case: [id number] Authorizing Provider: Crescencio Ageuro MD Collected: 10/19/2024 12:41 PM Ordering Location: [facility] Received: 10/19/2024 01:44 PM Operating Room Pathologist: Murray Fernández MD Specimen: Hemorrhoids 3:38 PM CDT [facility] FINAL DIAGNOSIS A. Hemorrhoids, excision - Hemorrhoids - Negative for dysplasia or malignancy Murray Fernández MD [id number] 3:38 PM CDT [facility] at 1538 CDT GROSS DESCRIPTION A. Received in a container of formalin labeled Main -hemorrhoids are 3 lopez-topete, wrinkled skin fragments, that range from 1.5 to 2.3 cm in greatest dimension. Sectioning reveals hemorrhagic, mildly edematous cut surfaces. No discrete masses or lesions are grossly identified. Press Clipper sections are submitted in A1. Grossed by: Kita Hobbs MS, PA (ASCP)CM 3:38 PM CDT [facility] OPERATIVE PROCEDURE 1: HEMORRHOIDECTOMY 3:38 PM CDT [facility] COMMENT The wooju voice-activated dictation system may have been used [...] determined by the [facility] in compliance with CLIA'88 regulations. Some of these tests rely on the use of analyte specific reagents and are subject to specific labeling requirements by the FDA. All controls show appropriate reactivity. This testing was developed by the [facility]. It has not been cleared or approved by the FDA. The FDA has determined that such clearance or approval is not necessary. 3:38 PM CDT [facility] Tissue (Hemorrhoids) Collection / Unknown 10/19/2024 12:41 PM CDT 10/19/2024 1:44 PM CDT us Crescencio Aguero MD PATHOLOGY/CYTOLOGY ORDERABLES F inal Result [facility] CLIA # [id number] [address] [address] * HI ANES INSERT ENDOTRACHEAL AIRWAY (10/19/2024 12:20 PM CDT) Narrative Deric Ha CRNA - 10/19/2024 12:20 PM CDT Deric Ha CRNA 10/19/2024 12:30 PM Airway Date/Time: 10/19/2024 12:20 PM Location: OR Plan: routine intubation Patient Identity Confirmed by: Verbally with patient and armband Staffing Performed: EPIC APPLICATION COORDINATOR/CAA Authorized by: Oliver Reid MD Performed by: [...] MD PROCEDURE/MINOR SURGICAL ORDERAB LES Final Result * PREPARE RED BLOOD CELLS (10/19/2024 6:29 AM CDT) Only the most recent of7 resultswithin the time period is included. COMPONENT TYPE [id number] [facility] [place] COMPONENT IDENTIFICATION [id number] [facility] [place] UNIT ABO O [facility] [place] UNIT RH NEG [facility] [place] CROSSMATCH Compatible [facility] [place] COMPONENT STATUS Transfused [facility] [place] COMPONENT EXPIRATION DATE/TIME [id number] [facility] [place] COMPONENT CODING SYSTEM 9500 [facility] [place] VOLUME, BLOOD PRODUCT 350 [facility] [place] 10/19/2024 6:29 AM CDT Andrey Tanner MD LAB TRANSFUSION ORDERAB LES Edited Result - Final Performing Organization Address [facility] Co de Phone Number [facility] CLIA#[id number] [address] [place] [address], * MAGNESIUM LEVEL (10/19/2024 5:52 AM CDT) Only the most recent of5 resultswithin the time period is included. Pathologist [facility] MAGNESIUM 2.2 1.6 - 2.4 mg/dL 10/19/2024 6:41 AM CDT [facility] Blood Venipuncture / Unknown 10/19/2024 5:52 AM CDT 10/19/2024 6:03 AM CDT Jeb Alvarez III, DO CHEMISTRY ORDERABLES Zaida l Result Performing Organization Address [facility] Co de Phone Number [facility] CLIA # [id number] [address] [address] * CELL COUNT WITH DIFFERENTIAL, BODY FLUID (10/18/2024 10:45 AM CDT) Only the most recent of2 resultswithin the time period is included. APPEARANCE, BODY FLUID Clear 10/18/2024 11:34 AM [...] 11:34 AM CDT [facility] Body fluid ENTIRE SEROUS MEMBRANE OF PERITONEUM / Unknown Collection / Unknown 10/18/2024 10:45 AM CDT 10/18/2024 10:49 AM CDT us Jeb O Alvarez III, DO BODY FLUIDS AND STOOLS Fi nal Result Performing Organization Address [facility] Co de Phone Number [facility] CLIA # [id number] [address] [address] [place] [address] * (ABNORMAL) C-REACTIVE PROTEIN (10/18/2024 7:13 AM CDT) CRP 10.6(H) 0.0 - 5.0 mg/L 10/18/2024 11:08 AM CDT [facility] Blood Venipuncture / Unknown 10/18/2024 7:13 AM CDT 10/18/2024 7:19 AM CDT us Jeb O Alvarez III, DO CHEMISTRY ORDERABLES Zaida l Result Performing Organization Address [facility] Co de Phone Number [facility] CLIA # [id number] [address] [address] [place], [place] [address] * COLONOSCOPY REPORT (10/17/2024 12:29 PM CDT) Narrative Procedure Note Julianne David, - 10/17/2024 12:28 PM CDT [facility] GI Patient Name: Arlene Quach Procedure Date: 10/17/2024 Date of : [...] This is a 59 year old female. [address] [place] [address] Julianne Milner DO GI PROCEDURE ORDERABLE S Final Result * PHOSPHORUS (10/17/2024 5:56 AM CDT) Only the most recent of2 resultswithin the time period is included. Pathologist [facility] PHOSPHORUS 3.6 2.5 - 4.5 mg/dL 10/17/2024 7:44 AM CDT [facility] Blood Venipuncture / Unknown 10/17/2024 5:56 AM CDT 10/17/2024 6:05 AM CDT Jonathan Sampson MD CHEMISTRY ORDERABLES Final Resu lt [facility] CLIA # [id number] [address] [place] [address] * GI PATHOGEN PCR PANEL (10/17/2024 3:10 AM CDT) Only the most recent of3 resultswithin the time period is included. [facility] GI Pathogen PCR panel NOT DETECTED [...] Cryptosporidium Cyclospora cayetanensis Entamoeba histolytica Giardia duodenalis Je Garnett MD MICROBIOLOGY - [facility] ORDERABLES Final Result [facility] # [id number] [address] [place] [address] * HELICOBACTER PYLORI ANTIGEN, STOOL (10/17/2024 3:10 AM CDT) H. PYLORI AG, STOOL SEE COMMENT 10/19/2024 12:37 PM CDT [facility] Comment: HELICOBACTER PYLORI AG, EIA, STOOL Micro Number: [id number] Test Status: Final Specimen Source: Stool Specimen [...] 3:19 AM CDT Narrative [facility] - 10/19/2024 12:37 PM CDT Performing Organization Information: Site ID: [place] Name: [facility] Address: [address] [address] [address] Director: Kiko Grimes us Mayo Taylor MD BODY FLUIDS AND STOOLS Fi nal Result [facility] * UPPER ENDOSCOPY REPORT (10/16/2024 11:13 PM CDT) Narrative Procedure Note Mayo Taylor MD - 10/16/2024 11:12 PM CDT [facility] GI Patient Name: Arlene Quach Procedure Date: 10/16/2024 Date of : [...] Withdrawal Time Scope In: Scope Out: [address] [place], [place] us Mayo Taylor MD GI PROCEDURE ORDERABLES F inal Result * LACTIC ACID (10/16/2024 8:42 PM CDT) Only the most recent of2 resultswithin the time period is included. LACTIC ACID 1.6 <=2.0 mmol/L 10/16/2024 9:57 PM CDT [facility] Blood BLOOD SPECIMEN / Unknown Venipuncture / Unknown 10/16/2024 8:42 PM CDT 10/16/2024 8:52 PM CDT us Je Garnett MD CHEMISTRY ORDERAB LES Final Result [facility] CLIA # [id number] [address] [facility] [place] [address] * PTT (10/16/2024 8:42 PM CDT) Only the most recent of3 resultswithin the time period is included. PTT 27.6 24.8 - 37.2 seconds 10/16/2024 9:37 PM CDT [facility] Blood Venipuncture / Unknown 10/16/2024 8:42 PM CDT 10/16/2024 8:54 PM CDT Narrative [facility] - 10/16/2024 9:37 PM CDT Therapeutic Range: Hi-level PE/DVT heparin protocol 80.1 - 95.0 sec Lo-level PE/DVT heparin protocol 70.1 - 85.0 sec Cardiac Heparin Protocol 70.1 - 100.0 sec Je Garnett MD HEMATOLOGY ORDERA BLES Final Result Performing Organization Address [facility]/ZIP Co de Phone Number [facility] CLIA # [id number] [id number] [place] [address] * (ABNORMAL) PROTIME-INR (10/16/2024 8:42 PM CDT) Only the most recent of5 resultswithin the time period is included. PROTIME 15.9(H) 12.7 - 14.9 Seconds 10/16/2024 9:37 PM CDT [facility] INR 1.2 0.8 - 1.2 10/16/2024 9:37 PM CDT [facility] Blood Venipuncture / Unknown 10/16/2024 8:42 PM CDT 10/16/2024 8:54 PM CDT Narrative [facility] [employer] [facility] - 10/16/2024 9:37 PM CDT Expected Values for INR: DVT/PE Goal INR 2.5; range 2.0 - 3.0 Valve Replacement Tissue Goal INR 2.5; range 2.0 - 3.0 Valve Replacement Mechanical Goal INR 3.0; range 2.5 - 3.5 POST-TX Goal INR 2.5; range 2.0 - 3.0 or Goal INR 3.0; range 2.5 - 3.5 Atrial Fibrillation Goal INR 2.5; range 2.0 - 3.0 Ischemic Stroke Goal INR 2.5; range 2.0 - 3.0 Je Garnett MD HEMATOLOGY ORDERA BLES Final Result Performing Organization Address [facility]/ZIP Co de Phone Number [facility] CLIA # [id number] [address] [facility] [place] [address] * TYPE AND SCREEN (10/16/2024 8:42 PM CDT) Only the most recent of2 resultswithin the time period is included. ABO GROUP O 10/16/2024 9:37 PM CDT [facility] LABORATORY [facility] RH (D) TYPE Negative 10/16/2024 9:37 PM CDT [facility] LABORATORY [facility] ANTIBODY SCREEN Negative 10/16/2024 9:37 PM CDT [facility] [place] Blood Venipuncture / Unknown 10/16/2024 8:42 PM CDT 10/16/2024 8:51 PM CDT Je Garnett MD BLOOD BANK ORDERA BLES Edited Result - Final [facility] CLIA#[id number] [address] [place] [address], * EKG 12-LEAD (10/16/2024 8:23 PM CDT) Only the most recent of2 resultswithin the time period is included. 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 : 1965 Requested By: Order Number: [id number] Erasto MD: Chan Sanchez Measurements Intervals [place] Rate: 99 P: 62 HI: 142 QRS: 87 QRSD: 78 T: 77 QT: 334 QTc: 428 Interpretive Statements Normal sinus rhythm Cannot rule out Inferior infarct, age undetermined Abnormal ECG Electronically Signed On 10-17-2024 6:50:50 CDT by Chan Sanchez Procedure Note Chan Sanchez MD - 10/17/2024 [id number] [place] [address] Test Date: 2024-10-16 Pat Name: ARLENE QUACH Department: 11 Room: 21 21 Gender: Female 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: [id number] : 1965 Requested By: Order Number: [id number] Reading MD: Chan Sanchez Measurements Intervals [place] Rate: 99 P: 62 HI: 142 QRS: 87 QRSD: 78 T: 77 [...] or life-threatening deterioration of the following conditions: LOGISTICS RESEARCH ENGINEER failure or compromise, 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 [...] MD PROCEDURE/MINOR S URGICAL ORDERABLES Final Result * PROTEIN, BODY FLUID (10/13/2024 12:51 PM CDT) PROTEIN, FLD 0.9 g/dL 10/13/2024 2:14 PM CDT [facility] Body fluid ENTIRE SEROUS MEMBRANE OF PERITONEUM / Unknown Collection / Unknown 10/13/2024 12:51 PM CDT 10/13/2024 1:17 PM CDT [facility] - 10/13/2024 2:14 PM CDT Interpretive Criteria: Transudate: <2.0 g/dL Exudate: >2.0 g/dL The reference range and other method performance specifications are unavailable for this body fluid. Comparison of this result with the concentration in the blood, serum, or plasma is recommended. us Colt Tavera MD BODY FLUIDS AND STOOLS Final Result Performing Organization Address [facility] Co de Phone Number [facility] CLIA # [id number] [address] [place] [address] * LACTATE DEHYDROGENASE, BODY FLUID (10/13/2024 12:51 PM CDT) Pathologist [facility] LD, FLD 36 U/L 10/13/2024 2:05 PM CDT [facility] Body fluid ENTIRE SEROUS MEMBRANE OF PERITONEUM / Unknown Collection / Unknown 10/13/2024 12:51 PM CDT 10/13/2024 1:17 PM CDT [facility] - 10/13/2024 2:05 PM CDT Interpretive Criteria: Transudate: < 200 U/L or Fluid/Serum Ratio < 0.6 Exudate: > 200 U/L or Fluid/Serum Ratio > 0.6 The reference range and other method performance specifications are unavailable for this body fluid. Comparison of this result with the concentration in the blood, serum or plasma is recommended. us Colt Tavera MD BODY FLUIDS AND STOOLS Final Result Performing Organization Address [facility]/State/ZIP Co de Phone Number [facility] CLIA # [id number] [address] [address] * GLUCOSE, BODY FLUID (10/13/2024 12:51 PM CDT) GLUCOSE, FLD 107 mg/dL 10/13/2024 2:05 PM CDT [facility] Body fluid ENTIRE SEROUS MEMBRANE OF PERITONEUM / Unknown Collection / Unknown 10/13/2024 12:51 PM CDT 10/13/2024 1:17 PM CDT [facility] - 10/13/2024 2:05 PM CDT Interpretive Criteria: Transudate: Fluid/Serum Ratio >0.5 Exudate: Fluid/Serum Ratio <0.5 or Fluid Glucose <60 mg/dL The reference range and other method performance specifications are unavailable for this body fluid. Comparison of this result with the concentration in the blood, serum or plasma is recommended. Colt Tavera MD BODY FLUIDS AND STOOLS Final Result [facility] CLIA # [id number] Critical access hospital [address] [address] * ALBUMIN LEVEL, BODY FLUID (10/13/2024 12:51 PM CDT) ALBUMIN, FLD 0.8 g/dL 10/13/2024 2:14 PM CDT [facility] Body fluid ENTIRE SEROUS MEMBRANE OF PERITONEUM / Unknown Collection / Unknown 10/13/2024 12:51 PM CDT 10/13/2024 1:17 PM CDT [facility] - 10/13/2024 2:14 PM CDT Interpretive Criteria: Transudate: Serum-Ascites gradient >1.1 g/dL Exudate: Serum-Ascites gradient <1.1 g/dL The reference range and other method performance specifications are unavailable for this body fluid. Comparison of this result with the concentration in the blood, serum or plasma is recommended. Colt Tavera MD BODY FLUIDS AND STOOLS Final Result [facility] CLIA # [id number] [address] [place] [address] * CYTOLOGY, NON GYNE (10/13/2024 12:51 PM CDT) CASE REPORT Medical Cytology Report Case: [id number] Authorizing Provider: Colt Tavera, Collected: 10/13/2024 12:51 PM Ordering Location: [facility] Received: 10/15/2024 08:00 AM Emergency Department Pathologist: Tamia Wolff MD Specimen: Peritoneal (ascitic) fluid 1:37 PM CDT [facility] FINAL DIAGNOSIS A. Peritoneal fluid, ThinPrep and cell block - No malignant cells identified - Mesothelial cells, histiocytes, and small lymphocytes present Tamia Wolff MD [id number] 1:37 PM CDT [facility] at 1337 CDT GROSS DESCRIPTION A. Peritoneal (ascitic) fluid - 110 ml yellow fluid processed for ThinPrep and cell block A2. 1:37 PM CDT [facility] CLINICAL INFORMATION No Dx found. 1:37 PM CDT [facility] COMMENT The wooju voice-activated dictation system may have been used [...] determined by the [facility] in compliance with CLIA'88 regulations. Some of these tests rely on the use of analyte specific reagents and are subject to specific labeling requirements by the FDA. All controls show appropriate reactivity. This testing was developed by the [facility]. It has not been cleared or approved by the FDA. The FDA has determined that such clearance or approval is not necessary. 1:37 PM CDT [facility] LABORATORY [facility] Body fluid ASCITIC FLUID SPECIMEN / Unknown Collection / Unknown 10/13/2024 12:51 PM CDT 10/15/2024 8:00 AM CDT Colt Tavera MD PATHOLOGY/CYTOLOGY ORD ERABLES Final Result [facility] LABORATORY [facility] CLIA # [id number] [address] [place] [address] * CT ABDOMEN PELVIS W CONTRAST (10/13/2024 [...] Tavera MD CT ORDERABLES Final Result * LIPASE (10/13/2024 9:09 AM CDT) LIPASE 32 13 - 60 U/L 10/13/2024 9:47 AM CDT [facility] LABORATORY SERVICES [facility] Blood Venipuncture / Unknown 10/13/2024 9:09 AM CDT 10/13/2024 9:13 AM CDT Colt Tavera MD CHEMISTRY ORDERABLES F inal Result [facility] LABORATORY [facility] # [id number] [facility] [address] [place] [address] * UPPER ENDOSCOPY REPORT (10/08/2024 10:02 AM CDT) Narrative Procedure Note Carmine Dubois MD - 10/08/2024 10:02 AM CDT [facility] GI Patient Name: Arlene Quach [...] Time Scope In: Scope Out: [address] [place], [place] Carmine Dubois MD GI PROCEDURE ORDERA BLES Final Result * VERIFICATION BLOOD GROUP (10/06/2024 11:05 PM CDT) ABO GROUP O 10/07/2024 12:13 AM CDT [facility] [place] RH (D) TYPE Negative 10/07/2024 12:13 AM CDT [facility] [place] Blood Venipuncture / Unknown 10/06/2024 11:05 PM CDT 10/06/2024 11:10 PM CDT Alessandra Jolley DO BLOOD BANK ORDERABLES Final Result [facility] [place] CLIA#[id number] [address] [place] [address], * COLONOSCOPY REPORT (10/03/2024 8:48 AM CDT) Narrative Procedure Note JaylaCarmine collado DO - 10/03/2024 8:48 AM CDT [facility] GI Patient Name: Arlene Quach [...] Scope Out: 8:42:29 AM [address] [place], [place] us Carmine Dickerson DO GI PROCEDURE ORDERABLES Final Result * UPPER ENDOSCOPY REPORT (10/03/2024 8:36 AM CDT) Narrative Procedure Note Carmine Dickerson DO - 10/03/2024 8:36 AM CDT [facility] GI Patient Name: Arlene Quach [...] Scope In: Scope Out: [address] [place], [place] Carmine Dickerson DO GI PROCEDURE ORDERABLES [...] Final Airway Details: Final Airway Type: Mask us Mayo Roa DO PROCEDURE/MINOR SURGICA L ORDERABLES Final Result from Last 3 Months Additional Health Concerns Infection Onset Date Last Indicated C Diff 10/07/2024 10/07/[address] [address] [facility] Address: [address] [address] [place] [address] [place] Advance Directives For more information, please contact: [phone] * Full Code (Latest Code Status on File) Date Activated Date Inactivated Comments 10/16/2024 11:08 PM 10/23/2024 3:48 PM * Default Full Code - Needs Discussion Date Activated Date Inactivated Comments 10/16/2024 11:07 PM 10/16/2024 11:08 PM * Full Code Date Activated Date Inactivated Comments 10/06/2024 9:13 PM 10/08/2024 5:59 PM * Full Code Date Activated Date Inactivated Comments 10/03/2024 7:38 AM 10/03/2024 11:18 AM Care Teams Flight Engineer Instructor Relationship Specialty Start Date End Date Tawnya Lane DO [address] [place] [id number] PCP - General Family Practice 10/24/24
--- OUTSIDE RECORDS SUMMARY | 2024-10-26 12:19 | XMS_ITS | Patient Health Record ---
Author Organization [facility] Address [address] [place] [address] Care Team Providers Care Zyglo Inspector Name Role Phone Tawnya Lane DO Primary Care Provider Unavailab Anton Mckinley Unavailable [phone] Migration, Provider Unavailable Unavailable Elida James Unavailable Ai Benson Unavailable [phone] Janet, Erick Unavailable [phone] Allergies Allergen (clinical drug ingredient) Drug/Non Drug Allergy documented on EMR Reaction Allergy Type Onset Date Status Sulfur Rash Drug Allergy Active Results Component Value Reference Range Flag Notes Fluoro Needle For Placement - Non-Spine 62038 Reviewed date:03/29/2024 02:42:29 PM Interpretation: Performing Lab: Notes/Report: Urine Drug Screen (cup read) - 68784 Reviewed date:07/25/2024 12:33:05 PM Interpretation: Performing Lab: Notes/Report: AMP - MARLENA - BUP - BZO - MDMA - OPI + PCP - OXY + MTD - MAMP - Urine Drug Screen (cup read) - 63854 Reviewed date:07/18/2024 12:37:34 PM Interpretation: Performing Lab: Notes/Report: OPI + Urine Drug Screen (cup read) - 49665 Reviewed date:05/24/2024 04:13:33 PM Interpretation: Performing Lab: Notes/Report: OPI + Urine Drug Screen (cup read) - 08377 Reviewed date:09/27/2024 10:16:46 AM Interpretation: Performing Lab: Notes/Report: OPI + zzzUrine Drug Screen (confir mation by instrument) - 56893 Reviewed date:01/31/2024 04:56:57 PM Interpretation: Performing Lab: Notes/Report: Urine Confirmation Panel (in strument) - [id number] Reviewed date:04/24/2024 10:44:16 AM Interpretation: Performing Lab: [...] Administration. Urine Confirmation Panel (in strument) - 28748 Reviewed date:08/01/2024 02:51:22 PM Interpretation: Performing Lab: [...] Administration. 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, lumbar region (M51.36) 08/04/19 Active confirmed Problem Abnormal gait (52512789) Unspecified abnormalities of gait and mobility (R26.9) 08/04/19 Active confirmed Problem Bilateral sacroiliitis (7211504009) Bilateral sacroiliitis (M46.1) Active confirmed Problem Sacroiliitis (37300798) Sacroiliitis (M46.1) Active confirmed Problem Abnormal gait (59784237) Abnormality of gait and mobility (R26.9) Active confirmed Problem Radiculopathy due to lumbar intervertebral disc disorder (663303563352585) 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 SI Joint w/ imaging geraldine dance (CT or fluoroscopy) - 48599 01/04/2024 01/04/2024 N/A Inj. SI Joint w/ imaging gearldine dance (CT or fluoroscopy) - 04728 03/29/2024 03/29/2024 N/A Inj. SI Joint w/ imaging geraldine dance (CT or fluoroscopy) - 91008 06/14/2024 06/14/2024 04-07 unav Inj. Trigger Points, 3 or mo re muscles - 08/22/2024 08/22/2024 N/A Encounters Encounter Location Date Provider Diagnosis [facility] [place] [address] [place] [address] 11/02/2023 Anton Dwyer [facility] [place] [address] [place] [address] 12/14/2023 Anton Dwyer [facility] [address] [place] [address] 01/04/2024 Anton Dwyer Bilateral sacroiliitis M46.1 [facility] [place] [address] [place] [address] 01/25/2024 Anton Millert Chronic pain syndrom e G89.4 ; Hip pain, left M25.552 ; Pain in right hip M25.551 ; Intervertebral disc disorder with radiculopathy of lumbar region M51.16 ; Abnormality of gait and mobility R26.9 and 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 Z79.891 [facility] [place] [address] [place] [address] 02/23/2024 Erick Janet Chronic pain syndrom e G89.4 ; Other intervertebral disc degeneration, thoracic region M51.34 ; Degeneration of intervertebral disc of lumbar region with discogenic back pain M51.360 ; Cyst of kidney, acquired N28.1 and alf (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 of opiate analgesic Z79.891 [facility] [address] [place] [address] 03/29/2024 Anton Dwyer Sacroiliitis M46.1 [facility] [place] [address] [place] [address] 04/19/2024 Ai Benson Chronic pain syndrom e G89.4 ; Other intervertebral disc degeneration, thoracic region M51.34 ; Degeneration of intervertebral disc of lumbar region with discogenic back pain M51.360 ; Cyst of kidney, acquired N28.1 and 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 Z79.891 [facility] [place] [address] [place] [address] 05/24/2024 Ai Benson Chronic pain syndrom e G89.4 ; Other intervertebral disc degeneration, thoracic region M51.34 ; Degeneration of intervertebral disc of lumbar region with discogenic back pain M51.360 ; Cyst of kidney, acquired N28.1 and 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 Z79.891 [facility] [address] [place] [address] 06/14/2024 Anton Dwyer Hip pain, left M25.552 [facility] [address] [address] 07/18/2024 Anton Millert Chronic pain syndrom e G89.4 ; Other intervertebral disc degeneration, thoracic region M51.34 ; Degeneration of intervertebral disc of lumbar region with discogenic back pain M51.360 ; Muscle pain, myofascial M79.18 ; Cyst of kidney, acquired N28.1 and alf (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 of opiate analgesic Z79.891 [facility] [address] [address] 07/25/2024 Anton Dwyer Chronic pain syndrom e G89.4 ; Other intervertebral disc degeneration, thoracic region M51.34 ; Degeneration of intervertebral disc of lumbar region with discogenic back pain M51.360 ; Cyst of kidney, acquired N28.1 ; 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 Z79.891 and Muscle pain, myofascial M79.18 [facility] [address] [address] 08/22/2024 Anton Andersonfft Chronic pain syndrom e G89.4 ; Other intervertebral disc degeneration, thoracic region M51.34 ; Degeneration of intervertebral disc of lumbar region with discogenic back pain M51.360 ; Muscle pain, myofascial M79.18 ; Cyst of kidney, acquired N28.1 and 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 Z79.891 [facility] [address] [address] 09/27/2024 Ai Benson Chronic pain syndrom e G89.4 ; Other intervertebral disc degeneration, thoracic region M51.34 ; Degeneration of intervertebral disc of lumbar region with discogenic back pain M51.360 ; Cyst of kidney, acquired N28.1 and alf (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 of opiate analgesic Z79.891 [facility] 0 0 12/17/2023 Provider Migration [facility] 0 0 12/18/2023 Provider Migration [facility] [place] [address] [place] [address] 02/13/2024 Anton Dwyer [facility] [place] [address] [place] [address] 02/13/2024 Anton Dwyer [facility] [address] [place] [address] 02/23/2024 Anton Dwyer Chronic pain syndrom e G89.4 [facility] [place] [address] [place] [place] [address] 02/23/2024 Erick Gonzales [facility] [place] [address] [place] [place] [address] 02/24/2024 Anton Dwyer [facility] [address] [place] [address] 03/07/2024 Anton Dwyer Chronic pain syndrom e G89.4 [facility] [place] [address] [place] [place] [address] 04/19/2024 Elida Esparza-Pric e [facility] [place] [address] [place] [place] [address] 05/24/2024 Anton Dwyer [facility] [place] [address] [place] [place] [address] 09/05/2024 Anton Dwyer Chronic pain syndrom e G89.4 [facility] [place] [address] [place] [place] [address] 09/27/2024 Anton Dwyer Other intervertebral disc degeneration, [...] effects are noted. Last UDS and [place] ADMISSIONS SPECIALIST reviewed today. Patient is advised that [...] effects are noted. Last UDS and [place] ADMISSIONS SPECIALIST reviewed today. Patient is advised that [...] effects are noted. Last UDS and [place] ADMISSIONS SPECIALIST reviewed today. 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 (ICD-10 - Z79.891) 07/18/2024 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 (ICD-10 - Z79.891) 07/25/2024 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 (ICD-10 - [...] of opiate analgesic (ICD-10 - Z79.891) 08/22/2024 alf (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 of opiate analgesic (ICD-10 [...] Drug Screen (confirmation by in strument) - 33680 04/19/2024 Next Appt Details Provider Name:Anton Dwyer, 11/28/2024 10:20:00 AM, [address] [place], [address], Insurance Providers Payer Name Payer Address Payer Phone Subscriber Number Group Number Insured Name Patient Relationship to Insured Coverage Start Date Coverage End Date [employer] Medicare Replacement [address] [address] [place] [address] [phone] [id number] Arlene Quach Self - patient is the insured [place] Medicaid [address] [place] [address] [id number] Arlene Quach Self - patient is the insured [place] Medicare [address] [address] [place] [address] [id number] Arlene Quach Self - patient is the [...]
[2024-10-26 12:36] VITALS: BP 105/60; PULSE 75; RESP 18; TEMP 36.8; O2SAT 98; BMI 20.2
--- NOTE | 2024-10-26 12:47 | W.ED.ABDPA2 ---
HPI - Abdominal Pain General: Chief Complaint: Abdominal Pain Stated Complaint: abd fulid build up doc refferal Time Seen by Provider: 10/26/24 12:16 Source: patient Mode of arrival: ambulatory Limitations: no limitations History of Present Illness: Patient is a 59-year-old female with a history of hereditary hemorrhagic telangiectasia, recent C. difficile infection, liver cirrhosis with recurrent ascites here requesting paracentesis. Patient was seen here 1 to 2 weeks ago after she was feeling C. difficile therapy and was having bright red blood per rectum possibly related to C. difficile colitis. Her hemoglobin had dropped significantly. Patient was subsequently transferred to [facility]. She states while there she was diagnosed with worsening liver cirrhosis/liver failure and was requiring paracenteses every 3 days or so. He states she is scheduled to see [facility] hepatology. She is here today stating her abdomen feels swollen and distended and it is causing her to have difficulty eating and breathing. No fevers. Was told her c. diff infection has cleared and she is no longer on antibiotics for this. She is no longer having diarrhea. MD elicited complaint: abdominal pain Pertinent past history: other (liver cirrhosis ) Onset (ago): day(s) Pain Consistency: constant Location: Diffuse Severity: moderate Quality: aching and fullness Radiation: none Migration to: no migration Exacerbating factors: nothing Relieving factors: other (paracentesis) Associated Symptoms: Reports nausea; Denies change in bowel habits, chills, diarrhea, dysuria, fever(s) and vomiting Related Data Home Medications ?Medication ?Instructions ?Recorded ?Confirmed aspirin 81 mg tablet,delayed 81 mg PO DAILY 06/02/20 10/16/24 release Held on 10/14/24. Instructions: Resume on 10/25/24. Hold until PCP / GI says resume cetirizine 10 mg tablet (Allergy 10 mg PO DAILY 03/19/23 10/16/24 Relief (cetirizine)) trazodone 50 mg tablet 50 mg PO BEDTIME 03/19/23 10/16/24 hydrocodone 5 mg-acetaminophen 325 1 tab PO Q12H 10/06/24 10/16/24 mg tablet methocarbamol 500 mg tablet 500 mg PO DAILY PRN Pain 10/06/24 10/16/24 Held on 10/14/24. Instructions: Resume on 10/22/24. carvedilol 6.25 mg tablet 6.25 mg PO DAILY 10/14/24 10/16/24 levothyroxine 50 mcg tablet 50 mcg PO DAILY 10/14/24 10/16/24 tizanidine 4 mg tablet 4 mg PO DAILY PRN muscle spasms 10/14/24 10/16/24 Held on 10/14/24. Instructions: Resume on 10/22/24. vancomycin 125 mg capsule 125 mg PO Q6H 10/14/24 10/16/24 pantoprazole 40 mg tablet,delayed 40 mg PO BID 10/16/24 10/16/24 release Allergies Allergy/AdvReac Type Severity Reaction Status Date / Time Sulfa (Sulfonamide Allergy ALGY-Rash Verified 11/15/23 14:51 Antibiotics) Review of Systems Const: Denies: fever(s), chills, body aches, fatigue or malaise Card: Denies: chest pain Resp: Denies: dyspnea GI: Reports: abdominal pain and nausea; Denies: vomiting, diarrhea or change in bowel habits : Reports: other (feels like she is not urinating as much); Denies: flank pain, difficulty voiding, dysuria, urinary frequency or urinary urgency Musc: Denies: neck pain, back pain, extremity pain, extremity swelling or joint swelling Skin/Breast: Denies: rash Neuro: Denies: headache(s) or dizziness PFSH ED PFSH: Medical History Hypothyroidism Iron deficiency anemia due to chronic blood loss Left axillary pain Helicobacter pylori gastritis Hereditary hemorrhagic telangiectasia Anterior cruciate ligament complete tear CVA (cerebral vascular accident) GERD (gastroesophageal reflux disease) Surgical History H/O esophagogastroduodenoscopy (05/01/21) cautery of 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 4 H/O esophagogastroduodenoscopy (06/03/20) 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 History of lung surgery 2008 History of colonoscopy (06/03/20) Cautery of AVM Hx of brain surgery History of eye surgery History of knee surgery History of hip surgery Hx of removal of ovary Social History (Reviewed 10/26/24 @ 13:28 by ANTONIETTA Concepcion Smoking and tobacco/nicotine status: never used tobacco/nicotine Quit status (tobacco/nicotine): has quit using Year quit tobacco: Nov 2021 Former quit date comment: Smoked for 40+ years Alcohol intake: current Alcohol intake frequency: few times a week Substance/Drug Use: never Marital status: Number of children: 1 Current occupational status: disabled Physical Exam Const: COMMON NORMALS: patient oriented x3, no limitations, alert and well nourished GENERAL APPEARANCE: cooperative and frail appearing ORIENTATION/CONSCIOUSNESS: Yes awake, Yes oriented to person, Yes oriented to place and Yes oriented to time Eye: COMMON NORMALS: no scleral icterus Resp: COMMON NORMALS: normal respiratory effort and clear to auscultation bilaterally AUSCULTATION: clear to auscultation bilaterally Cardio: COMMON NORMALS: regular rate and regular rhythm RATE: regular rate RHYTHM: regular rhythm GI: INSPECTION: Yes abdominal distension AUSCULTATION: Yes normoactive bowel sounds PALPATION: Yes Tenderness to palpation present (GI) (diffusely-non surgical), No Guarding due to palpation present (GI) and No Rigid due to palpation : COMMON NORMALS: Yes no CVA tenderness BLADDER/KIDNEY EXAM: Yes no CVA tenderness Back/Pelvis: COMMON NORMALS: no CVA tenderness Extremity: GENERAL: Yes normal exam except as noted Neuro: COMMON NORMALS: patient oriented x3, moves all extremities, no focal motor deficits and no sensory deficits noted SENSORIUM/ORIENTATION: Yes alert, Yes oriented to person, Yes oriented to place and Yes oriented to time Skin: COMMON NORMALS: no rashes or lesions noted GENERAL SKIN EXAM: no rashes or lesions noted Course Vital Signs: Vital signs: Vital Signs Temperature 98.2 F 10/26/24 12:36 Pulse Rate 75 10/26/24 12:36 Respiratory Rate 18 10/26/24 12:36 Blood Pressure 105/60 10/26/24 12:36 Pulse Oximetry 98 10/26/24 12:36 Oxygen Delivery Me thod Room Air 10/26/24 12:36 MDM - Abdominal Pain Medical Decision Making Patient feeling much better after paracentesis. She is ready to go home. They were able to remove 3400 mL of fluid. Blood work overall stable. She said she just had labs performed and her hemoglobin today is about the same. She is not having any ongoing rectal bleeding. Chemistry is nonactionable. Urine is dark but does not appear infected. Recommend she continue to follow-up with her team at [facility] as well as primary care and upcoming appointment with hepatology through [facility]. Medical Records I reviewed the patient's medical records. Lab Data I reviewed the patient's lab results. 10/26/24 13:31 10/26/24 13:31 Labs/Radiology: Radiology Impressions Paracentesis Ultrasound 10/26/24 12:54 IMPRESSION: Uncomplicated ultrasound-guided paracentesis. Removal of 3400 ml Laboratory Results WBC 5.32 10^3/uL (3.29-11.43) 10/26/24 13:31 RBC 3.16 10^6/uL (3.85-5.65) L 10/26/24 13:31 Hgb 8.40 g/dL (11.27-16.99) L 10/26/24 13:31 Hct 27.1 % (36-47) L 10/26/24 13:31 MCV 85.8 fl (85-98) 10/26/24 13:31 MCH 26.6 pg (27-33) L 10/26/24 13:31 MCHC 31.0 g/dL (30-55) 10/26/24 13:31 RDW 18.6 % (12.1-15.1) H 10/26/24 13:31 Plt Count 318 10^3/cmm (157-399) 10/26/24 13:31 MPV 10.4 fL (7.4-10.4) 10/26/24 13:31 Neut % (Auto) 61.0 % 10/26/24 13:31 Lymph % (Auto) 15.8 % 10/26/24 13:31 [place] % (Auto) 22.0 % 10/26/24 13:31 Eos % (Auto) 0.2 % 10/26/24 13:31 Baso % (Auto) 0.4 % 10/26/24 13:31 Neut # (Auto) 3.25 10^3/uL (1.8-7.7) 10/26/24 13:31 Lymph # (Auto) 0.8 10^3/uL (0.8-4.8) 10/26/24 13:31 [place] # (Auto) 1.2 10^3/uL (0.2-0.9) H 10/26/24 13:31 Eos # (Auto) 0.0 10^3/uL (0.0-0.8) 10/26/24 13:31 Baso # (Auto) 0.0 10^3/uL (0.0-0.1) 10/26/24 13:31 Nucleated RBC % (auto) 1.3 % 10/26/24 13:31 Nucleated RBCs # 0.1 /100WBC 10/26/24 13:31 Sodium 138 mmol/L (136-145) 10/26/24 13:31 Potassium 3.6 mmol/L (3.5-5.1) 10/26/24 13:31 Chloride 102 mmol/L (98-107) 10/26/24 13:31 Carbon Dioxide 25 mmol/L (22-29) 10/26/24 13:31 Anion Gap 14.6 (5-19) 10/26/24 13:31 BUN 7 mg/dL (8-23) L 10/26/24 13:31 Creatinine 0.9 mg/dL (0.5-0.9) 10/26/24 13:31 GFR Calculation 63.9 mL/min (90-130) L 10/26/24 13:31 Glucose 116 mg/dL (65-115) H 10/26/24 13:31 Calculated Osmolality 285 mOsm/kg (285-295) 10/26/24 13:31 Calcium 8.3 mg/dL (8.5-10.5) L 10/26/24 13:31 Total Bilirubin 0.3 mg/dL (0.15-1.2) 10/26/24 13:31 AST 31 U/L (0-32) 10/26/24 13:31 ALT 19 U/L (0-33) 10/26/24 13:31 Alkaline Phosphatase 118 U/L (35-105) H 10/26/24 13:31 Total Protein 6.2 g/dL (6.6-8.7) L 10/26/24 13:31 Albumin 3.3 g/dL (3.5-5.2) L 10/26/24 13:31 Globulin 2.9 g/dL (1.3-4.6) 10/26/24 13:31 Urine Color Dark yellow (Yellow) A 10/26/24 13:10 Urine Appearance Cloudy (CLEAR) A 10/26/24 13:10 Urine pH 6.0 (5-7) 10/26/24 13:10 Ur Specific Mcclure 1.041 (1.005-1.030) H 10/26/24 13:10 Urine Protein 1+ (Negative) A 10/26/24 13:10 Urine Glucose (UA) Negative (Normal) 10/26/24 13:10 Urine Ketones Trace (Negative) 10/26/24 13:10 Urine Blood Negative (Negative) 10/26/24 13:10 Urine Nitrate Negative (Negative) 10/26/24 13:10 Urine Bilirubin 1+ (Negative) H 10/26/24 13:10 Urine Urobilinogen 1.0 mg/dL (Negative) 10/26/24 13:10 Ur Leukocyte Esterase Trace (Negative) A 10/26/24 13:10 Urine RBC 3-5 /hpf (0-2) 10/26/24 13:10 Urine WBC 0-5 /hpf (0-5) 10/26/24 13:10 Ur Squamous Epith Cells 11-20 /hpf (0-5) H 10/26/24 13:10 Amorphous Sediment Not Reportable 10/26/24 13:10 Urine Bacteria None seen /hpf (NONE) 10/26/24 13:10 Hyaline Casts 4.11 /lpf 10/26/24 13:10 All radiology interpretation(s) finalized by discharge Discharge Plan Discharge Patient Disposition: Home Clinical Impression: Status post abdominal paracentesis Abdominal ascites Qualifiers: Ascites type: other type Qualified Code(s): R18.8 - Other ascites Condition: Stable Prescriptions: No Action aspirin 81 mg Tablet,Delayed Release (Dr/Ec) 81 mg PO DAILY carvedilol 6.25 mg tablet 6.25 mg PO DAILY tizanidine 4 mg tablet 4 mg PO DAILY PRN (Reason: muscle spasms) Patient Comments: patient hasn't been taking vancomycin 125 mg capsule 125 mg PO Q6H levothyroxine 50 mcg tablet 50 mcg PO DAILY trazodone 50 mg tablet 50 mg PO BEDTIME cetirizine [Allergy Relief (cetirizine)] 10 mg tablet 10 mg PO DAILY methocarbamol 500 mg tablet 500 mg PO DAILY PRN (Reason: Pain) hydrocodone-acetaminophen 5-325 mg tablet 1 tab PO Q12H pantoprazole 40 mg tablet,delayed release (DR/EC) 40 mg PO BID Discharge Orders: Discharge ED (Routine); Ordered 10/26/24 Ordered By: Laurie Whalen Referrals: Tawnya Lane DO [Primary Care Provider, DEAN] Patient Instructions: Patient Portal & Mani Instructions Activity Restrictions/Additional Instructions: Please follow-up with primary care next week as scheduled. Continue plan to follow-up with [facility]/hepatology. Print Language: Yoruba Coding Level of Care Code ED C Architect for Irma Montanez
--- NOTE | 2024-10-26 12:54 | US_ITS ---
WS: [id number] ULTRASOUND-GUIDED PARACENTESIS CLINICAL INFORMATION: ascities COMPARISON: None. Procedure Informed consent: The risks, benefits, and alternatives of the procedure were discussed with the patient. Verbal and written consent was obtained. Timeout: A timeout was performed to confirm the correct patient, procedure, and site. Preparation: A suitable skin site was identified. The patient was prepped and draped in usual sterile fashion. Lidocaine 1% was used for local anesthesia. Catheter: 4 Amharic One-step Yueh catheter. Side: LEFT lower quadrant. Fluid Volume: 3400 ml Color: Clear DISPOSITION: Discarded safely. Complications: None. US/US paracentesis abd w [id number] IMPRESSION: Uncomplicated ultrasound-guided paracentesis. Removal of 3400 ml
[2024-10-26 13:27] LABS: Glucose Urine UA Negative (Normal); Nitrate Urine Negative (Negative)
[2024-10-26 13:32] LABS: Add Urine Microscopic? YES
[2024-10-26 13:54] LABS: Specific Gravity, Urine 1.041 (1.005-1.030)
[2024-10-26 13:55] LABS: UA Slide Review UA Slide Review Perf
[2024-10-26 13:55] LABS: Hematocrit 27.1 % (36-47); Hemoglobin 8.40 g/dL (11.27-16.99); Mean Corpuscular HGB Conc 31.0 g/dL (30-55); Mean Corpuscular Hemoglobin 26.6 pg (27-33); Mean Corpuscular Volume 85.8 fl (85-98); Nucleated Red Blood Cells % 1.3 %; Platelet Count 318 10^3/cmm (157-399); Red Blood Count 3.16 10^6/uL (3.85-5.65); White Blood Count 5.32 10^3/uL (3.29-11.43)
[2024-10-26 14:12] VITALS: BP 108/60; PULSE 73; O2SAT 95
[2024-10-26 14:13] LABS: Alanine Aminotransferase 19 U/L (0-33); Albumin Level 3.3 g/dL (3.5-5.2); Alkaline Phosphatase 118 U/L (35-105); Anion Gap 14.6 (5-19); Aspartate Amino Transferase 31 U/L (0-32); Blood Urea Nitrogen 7 mg/dL (8-23); Calcium 8.3 mg/dL (8.5-10.5); Carbon Dioxide 25 mmol/L (22-29); Chloride 102 mmol/L (98-107); Creatinine Clr Calc Pharmacy 67.7658; Globulin 2.9 g/dL (1.3-4.6); Glucose 116 mg/dL (65-115); Osmolality Calculated 285 mOsm/kg (285-295); Potassium 3.6 mmol/L (3.5-5.1); Sodium 138 mmol/L (136-145); Total Protein 6.2 g/dL (6.6-8.7)
[2024-10-26 14:30] VITALS: BP 110/61; PULSE 72; O2SAT 96
--- NOTE | 2024-10-26 14:45 | PC.NURSE ---
removed 3450ml during paracentesis, pt stable throughout and post procedure. radiology notified of fluid drained off.
[2024-10-26 15:20] VITALS: BP 113/65; PULSE 73; O2SAT 96
== END 2024-10-26 15:20 | disposition home or self-care (01) ==
PROVIDERS: Emergency Provider Physician Assistant; PCP Family Medicine
DX: R18.8 Other ascites (principal); Z98.890 Other specified postprocedural states; Z79.82 Long term (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 of aspirin; Z87.891 Personal history of nicotine dependence; Z86.73 Personal history of transient ischemic attack (TIA), and cerebral infarction without residual deficits
CPT/HCPCS: 36415; 49083; 80053; 81001; 85025; 99284

== ENCOUNTER 2024-10-29 15:48 | Emergency (ER) | payer MEDICARE, MEDICAID, SELFPAY ==
--- OUTSIDE RECORDS SUMMARY | 2024-10-16 19:49 | XMS_ITS | Encounter Summary ---
Author Organization [facility] Address [address] [place] [address] Care Team Providers Care Tacking Machine Operator Name Role Phone Aguila Castro MD Primary Care Provider + Reason for Referral * Eval and Treat (8-30 Days) - Authorized Specialty Diagnoses / Procedures Referred By Contac t Referred To Contact Diagnoses Hemorrhoids, unspecified hemorrhoid type Procedures CT OFFICE/OUTPATIENT ESTABLISHED MOD MDM [address] OFFICE/OUTPATIENT NEW MODERATE MDM 45 MINUTES Jaden Guzmán MD [address] [place] [phone] Phone: tel: fax: Referral ID Status Reason Start Date Expiration Date V isits Requested Visits Authorized [id number] Authorized 10/23/2024 10/23/2025 1 1 * Eval and Treat (8-30 Days) - Open Specialty Diagnoses / Procedures Referred By Contac t Referred To Contact Diagnoses Gastrointestinal hemorrhage, unspecified gastrointestinal hemorrhage type Cirrhosis of liver without ascites, unspecified hepatic cirrhosis type (CMS/HCC) Procedures CT OFFICE/OUTPATIENT ESTABLISHED MOD MDM [address] OFFICE/OUTPATIENT NEW MODERATE MDM 45 MINUTES Jaden Guzmán MD [address] [place] [address] Phone: tel: fax: Referral ID Status Reason Start Date Expiration Date Visits Re quested Visits Authorized [id number] Open 10/23/2024 10/23/2025 1 1 * Eval and Treat (Routine) - Closed Specialty Diagnoses / Procedures Referred By Maryjane tim Referred To Contact Diagnoses Cirrhosis of liver without ascites, unspecified hepatic cirrhosis type (CMS/HCC) Procedures CT OFFICE/OUTPATIENT ESTABLISHED MOD MDM [address] OFFICE/OUTPATIENT NEW MODERATE MDM 45 MINUTES Jaden Guzmán MD [address] [place] [address] Phone: tel: fax: Referral ID Status Reason Start Date Expiration Date Visits Re quested Visits Authorized [id number] Closed 10/23/2024 10/23/2025 1 1 Reason for Visit * Reason Comments Diarrhea Tx from [facility] - r ecent dx of cdiff - has a bleeding disorder and has been having bloody/watery stools. Received 1 unit of blood from transferring facility * Auth/Cert (Routine) Specialty Diagnoses / Procedures Referred By Maryjane tim Referred To Contact Emergency Medicine Diagnoses cdiff +, GI bleed, general weakness [facility] Emergency Department [address] [place] [phone] Phone: tel: fax: Referral ID Status Reason Start Date Expiration Date Visits Re quested Visits Authorized [id number] 1 1 Encounter Details Date Type Department Care Team (Latest Contact Info) Description 10/16/2024 7:49 PM CDT - 10/23/2024 1:20 PM CDT Hospital Encounter [facility] Medical Telemetry [address] [place] [phone] Je Garnett MD [address] [place] [address] Jasmyn Coy MD [address] [place] [phone] Jonathan Sampson MD [address] [place] [address] Jeb Alvarez III, DO [address] [place] [address] Uri Rojas MD [address] [place] [address] Jaden Guzmán MD [address] [place] [address] Lower GI hemorrhage Discharge Disposition: [...] on file Legal Sex Female 5:31 AM STAFF PHARMAC[facility] Gender Identity Not on file Sexual Orientation [...] Guzmán MD - 10/23/2024 12:14 PM CDT [facility] Discharge Summary Viry Quach 59 y.o. female 1965 CSN: [id number] Date of Admission: 10/16/2024 Date of Discharge: [...] needle course. Insertion of a 10-cm 5 Ang[place] [employer] centesis catheter, through which approximately 2200 ml [...] provider, with anticipated disposition to home or care home facility depending on recovery and family support. [...] planning to follow up with hepatology at [place]. Prescribed Protonix and lactulose on discharge. Defer lasix and spironolactone to PCP or GI as OP. PCP COMMUNICATION : Aguila Csatro MD via [employer] communication MEDICATION CHANGES (significant): -started on Protonix [...] by mouth. PRN Refills: 0 IRON PS [id number] ACID ORAL Take by mouth. Refills: 0 [...] Your Medications These medications were sent to [facility] [address] [place] [address] [address] [address] [address] lactulose 10 gram/15 mL oral solution oxyCODONE-acetaminophen 5-325 mg tablet pantoprazole 40 mg Tablet, Delayed Release (E.C.) Future Appointments Date Time Provider Department Center 10/23/2024 1:00 PM [facility] 12/07/2024 7:30 AM Melquiades Ken FNP sjcGastro [...] Bravo RN - 10/20/2024 9:02 AM CDT [facility] Colorectal Surgery [address] [place] [address] [address] [place] [address] Follow up in 4-6 weeks with Ai [...] make a follow up appointment, please call [phone]. Additional problems: Active Hospital Problems Diagnosis Hemorrhoids [...] urine or bowel output, Contact hospitalist office [phone] for questions if [facility] Contact [facility] Transfer Hub at [phone] if patient needs a direct admission. Tell us about the patient and how we can help them. If we can provide the service that is needed, we will do the rest of the work. * Discharge Instr - Diet* Nya Bravo RN - 10/23/2024 12:31 PM CDT * Attachments The following attachments cannot be sent through Care Everywhere. * Clostridioides difficile colitis (Swazi) * EGD (Upper Endoscopy): Post op (Swazi) * Hemorrhoidectomy: Post op (Swazi) * Hemorrhoidectomy: Returning Home: Video (Swazi) * Anemia: Heavy Bleeding (Swazi) * Blood Transfusions: General Info (Swazi) * Paracentesis: General Info (Swazi) * Lactulose (Swazi) * Oxycodone (Swazi) documented in this encounter Medications at Time [...] as needed for Nausea. 02/01/2023 IRON PS [id number] ACID ORAL Take by mouth. montelukast (SINGULAIR) [...] CDT Your life is our life's work [facility] Hospitalist/Hospital Medicine Progress Note LOS: 6 days [...] Plan -OP follow up with hepatology at [place] planned. - Will plan paracentesis today. #Recent diagnosis of C. difficile colitis prior to admission. On PO Vancomycin. #Hx hypothyroidism: Resumed IMAGING TECH Synthroid. DVT prophylaxis: DVT Pharmacologic Prophylaxis: Patient [...] CDT Your life is our life's work [facility] Hospitalist/Hospital Medicine Progress Note LOS: 5 days [...] Oral, every 6 hours, Ai Sepulveda L, LEGAL ADVISOR, 125 mg at 10/21/24 0835 pantoprazole (PROTONIX) 40 mg in sodium chloride 0.9% 10 mL injection, 40 mg, IV, BID, Ai Sepulveda L, LEGAL ADVISOR, 40 mg at 10/21/24 0835 [Held by [...] Plan -OP follow up with hepatology at [place] planned. - Will plan paracentesis today. #Recent diagnosis of C. difficile colitis prior to admission. On PO Vancomycin. #Hx hypothyroidism: Resumed IMAGING TECH Synthroid. DVT prophylaxis: DVT Pharmacologic Prophylaxis: Patient [...] included. Your life is our life's work [facility] Hospitalist/Hospital Medicine Progress Note LOS: 4 days [...] Plan -OP follow up with hepatology at [place] planned. #Recent diagnosis of C. difficile colitis prior to admission. On PO Vancomycin. #Hx hypothyroidism: Resumed IMAGING TECH Synthroid. DVT prophylaxis: DVT Pharmacologic Prophylaxis: Patient [...] included. Your life is our life's work [facility] Hospitalist/Hospital Medicine Progress Note LOS: 3 days [...] , IV, intra-proc PRN, Leland, Deric Perez, FAN BLADE ALIGNER, 50 mg at 10/19/24 1217 [DISCONTINUED] sodium chloride 0.9 % infusion, , IV, intra-proc continuous PRN, Leland, Deric Quinteroy, FAN BLADE ALIGNER, Stopped-Anesthesia at 10/19/24 1317 [DISCONTINUED] dexAMETHasone (DECADRON) injection, , IV, intra-proc PRN, Leland, Deric Chris, FAN BLADE ALIGNER, 4 mg at 10/19/24 1233 [DISCONTINUED] ondansetron (ZOFRAN) 4 mg/2 mL injection, , IV, intra-proc PRN, Leland, Deric Chris, FAN BLADE ALIGNER, 4 mg at 10/19/24 1233 [DISCONTINUED] sugammadex (BRIDION) 100 mg/mL injection, , IV, intra-proc PRN, Leland, Deric Chris, FAN BLADE ALIGNER, 275 mg at 10/19/24 1257 Primary discharge [...] Plan -OP follow up with hepatology at [place] planned. #Recent diagnosis of C. difficile colitis prior to admission. On PO Vancomycin. #Hx hypothyroidism: Resumed IMAGING TECH Synthroid. DVT prophylaxis: DVT Pharmacologic Prophylaxis: Patient has a contraindication for pharmacologic prophylaxis. Please refer to the orders for additional details. Code status: Full Code Outpatient follow up: PCP Anticipated Disposition Location: Timeframe: 10/22/2024 Criteria: Patient's understanding of illness: yes Primary family contact: [facility] complexity: [] Mild [x] Moderate [] High [...] III, DO - 10/18/2024 1:10 PM CDT [facility] Patient Handoff Notification: Patient handoff given to Dr. Uri Rojas via staff messaging. * Sr Chhaya Chowdhury [...] family she said. Lakshmi/values: Viry is the Religious of [place]. Needs/hopes resources: She hoped she recover and go home. Spiritual interventions Utilized presence and active listening to explore feelings, stressors, perceptions, questions/concerns, and coping patterns of Viry. Comfort/reassurance provided;support; Prayer provided Introduction of Spiritual Care 13/09. LIGHT RAIL VEHICLE OPERATOR???S ASSESSMENT OF PATIENT???S LEVEL OF DISTRESS: none Outcomes of Care Patient was feel comfort and very appreciated for visit and prayer Woodworking Machine Offbearer Plan: I will follow up patient and family to provide support and comfort or refer to evening honeycomb blanket maker to follow Spiritual Care Services remain available for referral PRN. Recommendations for Healthcare Team As spiritual needs/distress arise, please contact Spiritual Care Services. We will follow up as needed. Thank you for this referral. Woodworking Machine Offbearer Sr. Chhaya Chowdhury Spiritual Care Team [phone] * Jeb Alvarez III, DO - 10/18/2024 [...] of C diff and cirrhosis, admitted with [facility]. Both upper and lower endoscopy procedures [...] Assessment and Plan Neuro/Psych: Hx insomnia, on IMAGING TECH Trazodone. Cardiovascular/Fluids: Hemodynamically stable. Hx HTN, BP [...] DVTp, SCDs only. Endocrine: Hx hypothyroidism: Resumed IMAGING TECH Synthroid. Musculoskeletal/Skin: Local skin care. Family communication: [...] to keep Hgb >7. Promptly page GI laboratory operations coordinator if patient experiences any brisk GI bleeding, [...] hemorrhoids Continue ceftriaxone for SBP prophylaxis Hold IMAGING TECH lactulose Recent diagnosis of C. difficile. Continue [...] Reviewed Assessment and Plan Neuro/Psych: Insomnia: Restart IMAGING TECH trazodone Cardiovascular/Fluids: Hemodynamics are stable Hypertension: Hold IMAGING TECH meds Pulmonary: On room air GI/NUT: Rectal [...] - Mental status at baseline - Hold IMAGING TECH lactulose due to ongoing diarrhea - Start [...] cecum DVTp, SCDs only Endocrine: Hypothyroidism: Resume IMAGING TECH Synthroid. Musculoskeletal/Skin: Routine ICU care Family communication: [...] ESOPHAGOGASTRODUODENOSCOPY performed by Carmine Dubois MD at [facility] ENDOSCOPY HX ESOPHAGOGASTRODUODENOSCOPY N/A 10/16/2024 ESOPHAGOGASTRODUODENOSCOPY performed by Mayo Taylor MD at [facility] ENDOSCOPY HX HYSTERECTOMY HX INTRACRANIAL ANEURYSM REPAIR HX IVC FILTER RETRIEVAL HX LAPAROTOMY OOPHERECTOMY Right HX TUBAL LIGATION CT COLONOSCOPY FLX DX W/COLLJ SPEC WHEN PFRMD N/A 10/03/2024 COLONOSCOPY performed by Carmine Dickerson DO at [facility] ENDOSCOPY CT ESOPHAGOGASTRODUODENOSCOPY TRANSORAL DIAGNOSTIC N/A 05/08/2024 ESOPHAGOGASTRODUODENOSCOPY performed by Gera Resendez DO at [facility] ENDOSCOPY CT ESOPHAGOGASTRODUODENOSCOPY TRANSORAL DIAGNOSTIC N/A 10/03/2024 ESOPHAGOGASTRODUODENOSCOPY performed by Carmine Dickerson DO at [facility] ENDOSCOPY CT REMOVAL IMPLANT DEEP Right 05/27/2021 HARDWARE REMOVAL performed by Rolando Riley MD at [facility] MAIN [facility] Allergies Allergen Reactions Sulfa (Sulfonamide [...] 6 hours as needed forNausea. IRON PS [id number] ACID ORAL Take by mouth. montelukast (SINGULAIR) [...] 10/16/2024 10:42 PM CDT Viry Quach 1965 CSN:[id number] 10/16/2024 Referring physician: Aguila Castro MD Endoscopy [...] ESOPHAGOGASTRODUODENOSCOPY performed by Carmine Dubois MD at [facility] ENDOSCOPY HX HYSTERECTOMY HX INTRACRANIAL ANEURYSM REPAIR HX IVC FILTER RETRIEVAL HX LAPAROTOMY OOPHERECTOMY Right HX TUBAL LIGATION CT COLONOSCOPY FLX DX W/COLLJ SPEC WHEN PFRMD N/A 10/03/2024 COLONOSCOPY performed by Carmine Dickerson DO at [facility] ENDOSCOPY CT ESOPHAGOGASTRODUODENOSCOPY TRANSORAL DIAGNOSTIC N/A 05/08/2024 ESOPHAGOGASTRODUODENOSCOPY performed by Gera Resendez DO at [facility] ENDOSCOPY CT ESOPHAGOGASTRODUODENOSCOPY TRANSORAL DIAGNOSTIC N/A 10/03/2024 ESOPHAGOGASTRODUODENOSCOPY performed by Carmine Dickerson DO at [facility] ENDOSCOPY CT REMOVAL IMPLANT DEEP Right 05/27/2021 HARDWARE REMOVAL performed by Rolando Riley MD at [facility] Allergies Allergen Reactions Sulfa (Sulfonamide [...] 6 hours as needed forNausea. IRON PS [id number] ACID ORAL Take by mouth. montelukast (SINGULAIR) [...] ESOPHAGOGASTRODUODENOSCOPY performed by Carmine Dubois MD at [facility] ENDOSCOPY HX HYSTERECTOMY HX INTRACRANIAL ANEURYSM REPAIR HX IVC FILTER RETRIEVAL HX LAPAROTOMY OOPHERECTOMY Right HX TUBAL LIGATION CT COLONOSCOPY FLX DX W/COLLJ SPEC WHEN PFRMD N/A 10/03/2024 COLONOSCOPY performed by Carmine Dickerson DO at [facility] ENDOSCOPY CT ESOPHAGOGASTRODUODENOSCOPY TRANSORAL DIAGNOSTIC N/A 05/08/2024 ESOPHAGOGASTRODUODENOSCOPY performed by Gera Resendez DO at [facility] ENDOSCOPY CT ESOPHAGOGASTRODUODENOSCOPY TRANSORAL DIAGNOSTIC N/A 10/03/2024 ESOPHAGOGASTRODUODENOSCOPY performed by Carmine Dickerson DO at [facility] ENDOSCOPY CT REMOVAL IMPLANT DEEP Right 05/27/2021 HARDWARE REMOVAL performed by Rolando Riley MD at [facility] Medication List CONTINUE taking these [...] by mouth. PRN Refills: 0 IRON PS [id number] ACID ORAL Take by mouth. Refills: 0 [...] Gen: 59-yo female lying in bed in [facility] Neuro: A&O X 4, no focal [...] concerns, she is neurologically intact. Insomnia: Resume IMAGING TECH trazodone once p.o. route available. Cardiovascular/Fluids: She is hemodynamically stable without vasopressors. Hypertension: Hold IMAGING TECH meds for soft pressures. Pulmonary: No acute [...] every 4 hours while NPO. Hypothyroidism: Resume IMAGING TECH Synthroid. Musculoskeletal/Skin: Routine skin care per nursing. [...] the physical exam findings in the applicable resident/Fellow/LEGAL ADVISOR/PA's note; my notable physical exam findings include: [...] hemoglobin, received 1 packed RBC. Also on IMAGING TECH aspirin, which was reversed with desmopressin inER. [...] Viry Quach DATE OF : 1965 CSN: [id number] DATE: 10/18/2024 Room: [address] [place] [address] Admit Date: 10/16/2024 Hospital day: LOS: 2 [...] Viry Quach DATE OF : 1965 CSN: [id number] DATE: 10/17/2024 Room: [address] [place] [address] Admit Date: 10/16/2024 Hospital day: LOS: 1 [...] 10/17/2024 12:28 PM CDTAssociated Order(s): COLONOSCOPY REPORT [facility] GI Patient Name: Viry Quach Procedure Date: [...] This is a 59 year old female. [address] [place] [address] * Naun Montiel RN - 10/17/2024 5:57 AM CDT VASCULAR ACCESS TEAM Lab collection PATIENT NAME: Viry Quach DATE OF : 1965 [facility]: [id number] DATE: 10/17/2024 Room: [address] [place] [address] Admit Date: 10/16/2024 Hospital day: LOS: 1 [...] Viry Quach DATE OF : 1965 CSN: [id number] DATE: 10/17/2024 Room: [address] [place] [address] Admit Date: 10/16/2024 Hospital day: LOS: 1 [...] 11:12 PM CDTAssociated Order(s): UPPER ENDOSCOPY REPORT [facility] GI Patient Name: Viry Quach Procedure Date: [...] Withdrawal Time Scope In: Scope Out: [address] [place], [place] documented in this encounter Consult Notes * Brii Velasquez RN - 10/19/2024 7:53 PM CDTAssociated Order(s): IP CONSULT TO IV TEAM VASCULAR ACCESS CONSULT PATIENT NAME: Viry Quach DATE OF : 1965 CSN: [id number] DATE: 10/19/2024 Room: [address] [place] [address] Admit Date: 10/16/2024 Hospital day: LOS: 3 days PLAN Was asked by vascular director of technology to collect H&H after earlier attempts were [...] COLONOSCOPY performed by Julianne David DO at [facility] ENDOSCOPY HX ESOPHAGOGASTRODUODENOSCOPY N/A 10/08/2024 ESOPHAGOGASTRODUODENOSCOPY performed by Carmine Dubois MD at [facility] ENDOSCOPY HX ESOPHAGOGASTRODUODENOSCOPY N/A 10/16/2024 ESOPHAGOGASTRODUODENOSCOPY performed by Mayo Taylor MD at [facility] ENDOSCOPY HX HYSTERECTOMY HX INTRACRANIAL ANEURYSM REPAIR HX IVC FILTER RETRIEVAL HX LAPAROTOMY OOPHERECTOMY Right HX TUBAL LIGATION CT COLONOSCOPY FLX DX W/COLLJ SPEC WHEN PFRMD N/A 10/03/2024 COLONOSCOPY performed by Carmine Dickerson DO at [facility] ENDOSCOPY CT ESOPHAGOGASTRODUODENOSCOPY TRANSORAL DIAGNOSTIC N/A 05/08/2024 ESOPHAGOGASTRODUODENOSCOPY performed by Gera Resendez DO at [facility] ENDOSCOPY CT ESOPHAGOGASTRODUODENOSCOPY TRANSORAL DIAGNOSTIC N/A 10/03/2024 ESOPHAGOGASTRODUODENOSCOPY performed by Carmine Dickerson DO at [facility] ENDOSCOPY CT REMOVAL IMPLANT DEEP Right 05/27/2021 HARDWARE REMOVAL performed by Rolando Riley MD at [facility] MA[facility] OR Medications: Current Facility-Administered Medications Medication [...] mL injection 40 mg IV BID Cassie Persuad PA 40 mg at 10/18/24 0939 [Held [...] Viry Quach DATE OF : 1965 CSN: [id number] DATE: 10/18/2024 Room: [address] [place] [address] Admit Date: 10/16/2024 Hospital day: LOS: 2 [...] ESOPHAGOGASTRODUODENOSCOPY performed by Carmine Dubois MD at [facility] ENDOSCOPY HX ESOPHAGOGASTRODUODENOSCOPY N/A 10/16/2024 ESOPHAGOGASTRODUODENOSCOPY performed by Mayo Taylor MD at [facility] ENDOSCOPY HX HYSTERECTOMY HX INTRACRANIAL ANEURYSM REPAIR HX IVC FILTER RETRIEVAL HX LAPAROTOMY OOPHERECTOMY Right HX TUBAL LIGATION CT COLONOSCOPY FLX DX W/COLLJ SPEC WHEN PFRMD N/A 10/03/2024 COLONOSCOPY performed by Carmine Dickerson DO at [facility] ENDOSCOPY CT ESOPHAGOGASTRODUODENOSCOPY TRANSORAL DIAGNOSTIC N/A 05/08/2024 ESOPHAGOGASTRODUODENOSCOPY performed by Gera Resendez DO at [facility] ENDOSCOPY CT ESOPHAGOGASTRODUODENOSCOPY TRANSORAL DIAGNOSTIC N/A 10/03/2024 ESOPHAGOGASTRODUODENOSCOPY performed by Carmine Dickerson DO at [facility] ENDOSCOPY CT REMOVAL IMPLANT DEEP Right 05/27/2021 HARDWARE REMOVAL performed by Rolando Riley MD at [facility] MA[facility] OR Current Facility-Administered Medications: levothyroxine (SYNTHROID) [...] Viry Quach DATE OF : 1965 CSN: [id number] DATE: 10/17/2024 Room: [address] [place] [address] Admit Date: 10/16/2024 Hospital day: LOS: 1 [...] ESOPHAGOGASTRODUODENOSCOPY performed by Carmine Dubois MD at [facility] ENDOSCOPY HX HYSTERECTOMY HX INTRACRANIAL ANEURYSM REPAIR HX IVC FILTER RETRIEVAL HX LAPAROTOMY OOPHERECTOMY Right HX TUBAL LIGATION CT COLONOSCOPY FLX DX W/COLLJ SPEC WHEN PFRMD N/A 10/03/2024 COLONOSCOPY performed by Carmine Dickerson DO at [facility] ENDOSCOPY CT ESOPHAGOGASTRODUODENOSCOPY TRANSORAL DIAGNOSTIC N/A 05/08/2024 ESOPHAGOGASTRODUODENOSCOPY performed by Gera Resendez DO at [facility] ENDOSCOPY CT ESOPHAGOGASTRODUODENOSCOPY TRANSORAL DIAGNOSTIC N/A 10/03/2024 ESOPHAGOGASTRODUODENOSCOPY performed by Carmine Dickerson DO at [facility] ENDOSCOPY CT REMOVAL IMPLANT DEEP Right 05/27/2021 HARDWARE REMOVAL performed by Rolando Riley MD at [facility] Current Facility-Administered Medications: [COMPLETED] desmopressin [...] See Admin Instructions, see admin instructions, Cassie ePrsaud PA replacement reminder - Phosphorus, 1 Each, [...] Viry Quach DATE OF : 1965 CSN: [id number] DATE: 10/17/2024 Room: [address] [place] [address] Admit Date: 10/16/2024 Hospital day: LOS: 1 [...] ESOPHAGOGASTRODUODENOSCOPY performed by Carmine Dubois MD at [facility] ENDOSCOPY HX HYSTERECTOMY HX INTRACRANIAL ANEURYSM REPAIR HX IVC FILTER RETRIEVAL HX LAPAROTOMY OOPHERECTOMY Right HX TUBAL LIGATION CT COLONOSCOPY FLX DX W/COLLJ SPEC WHEN PFRMD N/A 10/03/2024 COLONOSCOPY performed by Carmine Dickerson DO at [facility] ENDOSCOPY CT ESOPHAGOGASTRODUODENOSCOPY TRANSORAL DIAGNOSTIC N/A 05/08/2024 ESOPHAGOGASTRODUODENOSCOPY performed by Gera Resendez DO at [facility] ENDOSCOPY CT ESOPHAGOGASTRODUODENOSCOPY TRANSORAL DIAGNOSTIC N/A 10/03/2024 ESOPHAGOGASTRODUODENOSCOPY performed by Carmine Dickerson DO at [facility] ENDOSCOPY CT REMOVAL IMPLANT DEEP Right 05/27/2021 HARDWARE REMOVAL performed by Rolando Riley MD at [facility] Current Facility-Administered Medications: [COMPLETED] desmopressin [...] hemorrhoids, 3 columns Surgeon: Crescencio Aguero M.D. Bank Credit Card Collection Clerk: BERKLEY Conner SENIOR SECURITY ARCHITECT JUSTIFICATION: The use of an advanced family practice physician assistant was required due to the complexity of the procedure and lack of similarly qualified assistants. Bank Credit Card Collection Clerk tasks include: Positioning, prepping & draping, retraction, [...] NAME: Viry Quach DATE OF : 1965 [facility]: [id number] DATE: 10/16/2024 Admit Date: 10/16/2024 Hospital day: [...] EMS being transferred from an ER in [place]. Patient presented to the ER for bloody [...] Negative PREPARE RED BLOOD CELLS COMPONENT TYPE [id number] COMPONENT IDENTIFICATION [id number] UNIT ABO O UNIT RH NEG CROSSMATCH Compatible COMPONENT STATUS Selected COMPONENT EXPIRATION DATE/TIME 756436388021 COMPONENT CODING SYSTEM [address], BLOOD PRODUCT 350 PREPARE RED BLOOD CELLS COMPONENT TYPE [id number] COMPONENT IDENTIFICATION [id number] UNIT ABO O UNIT RH NEG CROSSMATCH Compatible COMPONENT STATUS Selected COMPONENT EXPIRATION DATE/TIME [id number] COMPONENT CODING SYSTEM [address], BLOOD PRODUCT 350 PREPARE RED BLOOD CELLS COMPONENT TYPE [id number] COMPONENT IDENTIFICATION [id number] UNIT ABO O UNIT RH NEG CROSSMATCH Compatible COMPONENT STATUS Selected COMPONENT EXPIRATION DATE/TIME 821638156561 COMPONENT CODING SYSTEM [address], BLOOD PRODUCT 350 PREPARE RED BLOOD CELLS COMPONENT TYPE [id number] COMPONENT IDENTIFICATION [id number] UNIT ABO O UNIT RH NEG CROSSMATCH Compatible COMPONENT STATUS Selected COMPONENT EXPIRATION DATE/TIME [id number] COMPONENT CODING SYSTEM [address], BLOOD PRODUCT 350 RADIOLOGY: No orders to display EKG: PROCEDURES Critical Care Performed by: Je Garnett MD Authorized by: Je Garnett MD Critical care provider statement: Critical care time (minutes): 80 Critical care was necessary to treat or prevent imminent or life-threatening deterioration of the following conditions: RIGGING LOFT MECHANIC failure or compromise, 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 [...] Follow up on previously scheduled appointment at [place] (February). Monitor LFTs and coagulation studies. # [...] 6 hours as needed forNausea. IRON PS [id number] ACID ORAL Take by mouth. montelukast (SINGULAIR) [...] admission and through discharge Description: Outcome: Progressing Radio Producer Discharge Planning Cm continues to follow awaiting PT recommendations for discharge planning. Expected Discharge Date Oct 22, 2024 Plan Discharge To: [facility];Home with family assist;Home or Self Care;Home Health Services (10/17/241654) Plan Discharge To - Alternate: [facility] (10/17/241654) Referrals Status: Preferred Pharmacy: [facility] [address] [place] [address] Patient / Family Communications [...] Son Prescription coverage: yes Preferred Pharmacy verified: [facility] [address] [place] [address] Insurance coverage verified: Payor: [employer] MEDICARE ADVANTAGE / Plan: [id number] HMO SNP MCR / Product Type: HMO [...] Description 12/07/2024 7:30 AM CDT Office Visit [facility] Gastroenterology- [place] [address] [facility] [address] [place] [address] Melquiades Ken FNP [address] [facility] [address] [place] [address] Scheduled Referrals Name Type Priority [...] needle course. Insertion of a 10-cm 5 [place] [employer] centesis catheter, through which approximately 2200 ml [...] needle course. Insertion of a 10-cm 5 [place] [employer] centesis catheter, through which approximately 2200 ml [...] AND HEMATOCRIT (10/23/2024 9:24 AM CDT) Pathologist [facility] HEMOGLOBIN 8.1(L) 12.0 - 16.0 g/dL 10/23/2024 9:34 AM CDT [facility] HEMATOCRIT 25.5(L) 36.0 - 46.0 % 10/23/2024 9:34 AM CDT [facility] Blood Venipuncture / Unknown 10/23/2024 9:24 AM CDT 10/23/2024 9:28 AM CDT Crescencio Aguero MD HEMATOLOGY ORDERABLES Final Res ult [facility] CLIA # [id number] [address] [address] [place] [address] * (ABNORMAL) COMPREHENSIVE METABOLIC PANEL (10/23/2024 4:55 AM CDT) SODIUM 135(L) 136 - 145 mmol/L 10/23/2024 6:27 AM T [facility] POTASSIUM 3.9 3.5 - 5.1 mmol/L 10/23/2024 6:27 AM [facility] CHLORIDE 103 98 - 107 mmol/L 10/23/2024 6:27 AM [facility] CO2 22 22 - 29 mmol/L 10/23/2024 6:27 AM [facility] CALCIUM 8.0(L) 8.8 - 10.2 mg/dL 10/23/2024 6:27 AM [facility] BUN 8 8 - 23 mg/dL 10/23/2024 6:27 AM [facility] CREATININE 0.71 0.51 - 0.95 mg/dL 10/23/2024 6:27 AM [facility] GLUCOSE 103(H) 74 - 99 mg/dL 10/23/2024 6:27 AM [facility] TOTAL PROTEIN 5.1(L) 6.4 - 8.3 g/dL 10/23/2024 6:27 AM [facility] ALBUMIN 3.0(L) 3.5 - 5.2 g/dL 10/23/2024 6:27 AM [facility] BILIRUBIN TOTAL 0.4 0.0 - 1.0 mg/dL 10/23/2024 6:27 AM [facility] ALKALINE PHOSPHATASE 82 35 - 104 U/L 10/23/2024 6:27 AM [facility] AST 24 10 - 35 U/L 10/23/2024 6:27 AM [facility] ALT 18 <=35 U/L 10/23/2024 6:27 AM T [facility] GFR >60 >=60 mL/min/1.7 3 sq meter 10/23/2024 6:27 AM T [facility] Comment:eGFR calculated with 2020 CKD-EPI equation. Vegetarian diet, extremely high or low muscle mass, and may affect results. Cystatin C with Glomerular Filtration Rate is a suitable alternative for these patients. ANION GAP 10 9 - 20 mmol/L 10/23/2024 6:27 AM T [facility] Blood Venipuncture / Unknown 10/23/2024 4:55 AM CDT 10/23/2024 5:54 AM CDT us Jaden Guzmán MD CHEMISTRY ORDERABLES Final Resul t [facility] CLIA # [id number] [address] [place] [address] * (ABNORMAL) CBC WITH DIFFERENTIAL (10/23/2024 4:55 AM CDT) [facility] WBC 6.2 4.8 - 10.8 K/uL 10/23/2024 5:51 AM [facility] NRBCS 3(H) <1 % 10/23/2024 5:51 AM [facility] RBC 2.79(L) 4.20 - 5.40 M/uL 10/23/2024 5:51 AM T [facility] HEMOGLOBIN 7.7(L) 12.0 - 16.0 g/dL 10/23/2024 5:51 AM [facility] HEMATOCRIT 24.1(L) 36.0 - 46.0 % 10/23/2024 5:51 AM [facility] MCV 86.4 84.0 - 103.0 fL 10/23/2024 5:51 AM T [facility] MCH 27.6 27.0 - 34.0 pg 10/23/2024 5:51 AM [facility] MCHC 32.0 30.0 - 35.0 g/dL 10/23/2024 5:51 AM [facility] PLATELETS 241 140 - 440 K/uL 10/23/2024 5:51 AM [facility] MPV 11.1 8.9 - 12.8 fL 10/23/2024 5:51 AM [facility] [employer] [facility] RDW 17.2(H) 11.0 - 14.5 % 10/23/2024 5:51 AM [facility] [employer] [facility] RDW-STDEV 53.6 37.0 - 54.0 fL 10/23/2024 5:51 AM [facility] NEUTROPHILS 70 42 - 75 % 10/23/2024 5:51 AM [facility] LYMPHOCYTES 12(L) 24 - 44 % 10/23/2024 5:51 AM [facility] [employer] [facility] MONOCYTES 17(H) 2 - 10 % 10/23/2024 5:51 AM [facility] [employer] [facility] EOSINOPHILS 1 0 - 7 % 10/23/2024 5:51 AM [facility] [employer] [facility] BASOPHILS 0 0 - 1 % 10/23/2024 5:51 AM [facility] IMMATURE GRANULOCYTES 1 0 - 2 % 10/23/2024 5:51 AM [facility] NEUTROPHIL ABSOLUTE 4.34 2.00 - 8.00 K/uL 10/23/2024 5:51 AM [facility] LYMPHOCYTE ABSOLUTE 0.75(L) 1.20 - 4.00 K/uL 10/23/2024 5:51 AM [facility] MONOCYTE ABSOLUTE 1.04(H) 0.10 - 0.60 K/uL 10/23/2024 5:51 AM [facility] EOSINOPHIL ABSOLUTE 0.05 0.00 - 0.70 K/uL 10/23/2024 5:51 AM [facility] BASOPHILS ABSOLUTE 0.02 0.00 - 0.20 K/uL 10/23/2024 5:51 AM CDT [facility] IMMATURE GRANULOCYTES ABSOLUTE 0.03 0.00 - 0.10 K/uL 10/23/2024 5:51 AM CDT [facility] SMEAR REVIEWED: NN - No Action Needed 10/23/2024 5:51 AM CDT [facility] Blood Venipuncture / Unknown 10/23/2024 4:55 AM CDT 10/23/2024 5:42 AM CDT Crescencio Aguero MD HEMATOLOGY ORDERABLES Final Res ult Performing Organization Address City/[facility]/ZIP Co de Phone Number [facility] CLIA # [id number] [address] [id number] * (ABNORMAL) HEMOGLOBIN AND HEMATOCRIT (10/22/2024 10:52 PM CDT) HEMOGLOBIN 7.5(L) 12.0 - 16.0 g/dL 10/22/2024 11:01 PM CDT [facility] HEMATOCRIT 22.7(L) 36.0 - 46.0 % 10/22/2024 11:01 PM CDT [facility] Blood Venipuncture / Unknown 10/22/2024 10:52 PM CDT 10/22/2024 10:56 PM CDT Crescencio Aguero MD HEMATOLOGY ORDERABLES Final Res ult [facility] CLIA # [id number] [address] [address] * POC GLUCOSE (10/22/2024 12:49 PM CDT) GLUCOSE POC 93 74 - 99 mg/dL 10/22/2024 12:49 PM CDT [facility] SPECIMEN SOURCE, GLUCOSE POC Capillary 10/22/2024 12:49 PM CDT [facility] Blood, whole 10/22/2024 12:4 9 PM CDT 10/22/2024 1:02 PM CDT us Jaden Guzmán MD POINT OF CARE TESTING Final Resu lt Performing Organization Address [facility] Co de Phone Number [facility] CLIA # [id number] [address] [address] * (ABNORMAL) HEMOGLOBIN AND HEMATOCRIT (10/22/2024 9:23 AM CDT) [facility] HEMOGLOBIN 7.8(L) 12.0 - 16.0 g/dL 10/22/2024 9:35 AM CDT [facility] HEMATOCRIT 24.8(L) 36.0 - 46.0 % 10/22/2024 9:35 AM CDT [facility] Blood Venipuncture / Unknown 10/22/2024 9:23 AM CDT 10/22/2024 9:27 AM CDT us Crescencio Aguero MD HEMATOLOGY ORDERABLES Final Res ult Performing Organization Address [facility] Co de Phone Number [facility] CLIA # [id number] [facility] [address] * (ABNORMAL) COMPREHENSIVE METABOLIC PANEL (10/22/2024 5:14 AM CDT) Pathologist [facility] SODIUM 137 136 - 145 mmol/L 10/22/2024 6:30 AM CDT [facility] POTASSIUM 3.8 3.5 - 5.1 mmol/L 10/22/2024 6:30 AM CDT [facility] CHLORIDE 105 98 - 107 mmol/L 10/22/2024 6:30 AM CDT [facility] CO2 24 22 - 29 mmol/L 10/22/2024 6:30 AM [facility] CALCIUM 8.1(L) 8.8 - 10.2 mg/dL 10/22/2024 6:30 AM [facility] BUN 7(L) 8 - 23 mg/dL 10/22/2024 6:30 AM [facility] CREATININE 0.74 0.51 - 0.95 mg/dL 10/22/2024 6:30 AM [facility] GLUCOSE 96 74 - 99 mg/dL 10/22/2024 6:30 AM [facility] TOTAL PROTEIN 5.1(L) 6.4 - 8.3 g/dL 10/22/2024 6:30 AM [facility] ALBUMIN 3.1(L) 3.5 - 5.2 g/dL 10/22/2024 6:30 AM [facility] BILIRUBIN TOTAL 0.4 0.0 - 1.0 mg/dL 10/22/2024 6:30 AM [facility] ALKALINE PHOSPHATASE 77 35 - 104 U/L 10/22/2024 6:30 AM [facility] AST 23 10 - 35 U/L 10/22/2024 6:30 AM [facility] ALT 17 <=35 U/L 10/22/2024 6:30 AM [facility] GFR >60 >=60 mL/min/1.7 3 sq meter 10/22/2024 6:30 AM [facility] Comment:eGFR calculated with 2020 CKD-EPI equation. Vegetarian diet, extremely high or low muscle mass, and may affect results. Cystatin C with Glomerular Filtration Rate is a suitable alternative for these patients. ANION GAP 8(L) 9 - 20 mmol/L 10/22/2024 6:30 AM [facility] Blood Venipuncture / Unknown 10/22/2024 5:14 AM CDT 10/22/2024 5:47 AM T us Jaden Guzmán MD CHEMISTRY ORDERABLES Final Resul t [facility] ROSE # [id number] [address] [address] [place] [address] * (ABNORMAL) CBC WITH DIFFERENTIAL (10/22/2024 5:14 AM CDT) [facility] WBC 6.1 4.8 - 10.8 K/uL 10/22/2024 5:58 AM CDT [facility] NRBCS 2(H) <1 % 10/22/2024 5:58 AM CDT [facility] RBC 2.60(L) 4.20 - 5.40 M/uL 10/22/2024 5:58 AM CDT [facility] HEMOGLOBIN 7.2(L) 12.0 - 16.0 g/dL 10/22/2024 5:58 AM CDT [facility] HEMATOCRIT 22.4(L) 36.0 - 46.0 % 10/22/2024 5:58 AM CDT [facility] MCV 86.2 84.0 - 103.0 fL 10/22/2024 5:58 AM CDT [facility] MCH 27.7 27.0 - 34.0 pg 10/22/2024 5:58 AM CDT [facility] MCHC 32.1 30.0 - 35.0 g/dL 10/22/2024 5:58 AM CDT [facility] PLATELETS 219 140 - 440 K/uL 10/22/2024 5:58 AM CDT [facility] MPV 11.0 8.9 - 12.8 fL 10/22/2024 5:58 AM CDT [facility] RDW 17.1(H) 11.0 - 14.5 % 10/22/2024 5:58 AM CDT [facility] RDW-STDEV 53.0 37.0 - 54.0 fL 10/22/2024 5:58 AM CDT [facility] NEUTROPHILS 65 42 - 75 % 10/22/2024 5:58 AM CDT [facility] LYMPHOCYTES 17(L) 24 - 44 % 10/22/2024 5:58 AM CDT [facility] MONOCYTES 17(H) 2 - 10 % 10/22/2024 5:58 AM CDT [facility] EOSINOPHILS 0 0 - 7 % 10/22/2024 5:58 AM CDT [facility] BASOPHILS 1 0 - 1 % 10/22/2024 5:58 AM CDT [facility] IMMATURE GRANULOCYTES 0 0 - 2 % 10/22/2024 5:58 AM CDT [facility] NEUTROPHIL ABSOLUTE 4.00 2.00 - 8.00 K/uL 10/22/2024 5:58 AM CDT [facility] LYMPHOCYTE ABSOLUTE 1.03(L) 1.20 - 4.00 K/uL 10/22/2024 5:58 AM CDT [facility] MONOCYTE ABSOLUTE 1.03(H) 0.10 - 0.60 K/uL 10/22/2024 5:58 AM CDT [facility] EOSINOPHIL ABSOLUTE 0.02 0.00 - 0.70 K/uL 10/22/2024 5:58 AM CDT [facility] BASOPHILS ABSOLUTE 0.03 0.00 - 0.20 K/uL 10/22/2024 5:58 AM CDT [facility] IMMATURE GRANULOCYTES ABSOLUTE 0.02 0.00 - 0.10 K/uL 10/22/2024 5:58 AM CDT [facility] SMEAR REVIEWED: NN - No Action Needed 10/22/2024 5:58 AM CDT [facility] Blood Venipuncture / Unknown 10/22/2024 5:14 AM CDT 10/22/2024 5:44 AM CDT us Crescencio Aguero MD HEMATOLOGY ORDERABLES Final Res ult [facility] CLIA # [id number] [address] [facility] [place] [address] * (ABNORMAL) HEMOGLOBIN AND HEMATOCRIT (10/21/2024 10:15 PM CDT) HEMOGLOBIN 7.3(L) 12.0 - 16.0 g/dL 10/21/2024 10:38 PM CDT [facility] HEMATOCRIT 22.8(L) 36.0 - 46.0 % 10/21/2024 10:38 PM CDT [facility] Blood Venipuncture / Unknown 10/21/2024 10:15 PM CDT 10/21/2024 10:34 PM CDT Crescencio Aguero MD HEMATOLOGY ORDERABLES Final Res ult Performing Organization Address [facility] Co de Phone Number [facility] CLIA # [id number] [address] [address] [place] [address] * (ABNORMAL) HEMOGLOBIN AND HEMATOCRIT (10/21/2024 9:33 AM CDT) [facility] HEMOGLOBIN 7.4(L) 12.0 - 16.0 g/dL 10/21/2024 9:47 AM CDT [facility] HEMATOCRIT 22.5(L) 36.0 - 46.0 % 10/21/2024 9:47 AM CDT [facility] Blood Venipuncture / Unknown 10/21/2024 9:33 AM CDT 10/21/2024 9:45 AM CDT Crescencio Aguero MD HEMATOLOGY ORDERABLES Final Res ult [facility] CLIA # [id number] [address] [place] [address] * (ABNORMAL) POC GLUCOSE (10/21/2024 7:55 AM CDT) GLUCOSE POC 100(H) 74 - 99 mg/dL 10/21/2024 7:55 AM CDT [facility] SPECIMEN SOURCE, GLUCOSE POC Capillary 10/21/2024 7:55 AM T [facility] Blood, whole 10/21/2024 7:55 AM CDT 10/21/2024 8:04 AM CDT us Jaden Guzmán MD POINT OF CARE TESTING Final Resu lt [facility] CLIA # [id number] [address] [place] [id number] * (ABNORMAL) COMPREHENSIVE METABOLIC PANEL (10/21/2024 6:11 AM CDT) Pathologist [facility] SODIUM 136 136 - 145 mmol/L 10/21/2024 7:07 AM [facility] POTASSIUM 3.8 3.5 - 5.1 mmol/L 10/21/2024 7:07 AM [facility] CHLORIDE 104 98 - 107 mmol/L 10/21/2024 7:07 AM [facility] CO2 24 22 - 29 mmol/L 10/21/2024 7:07 AM [facility] CALCIUM 8.3(L) 8.8 - 10.2 mg/dL 10/21/2024 7:07 AM T [facility] BUN 6(L) 8 - 23 mg/dL 10/21/2024 7:07 AM [facility] CREATININE 0.83 0.51 - 0.95 mg/dL 10/21/2024 7:07 AM [facility] GLUCOSE 104(H) 74 - 99 mg/dL 10/21/2024 7:07 AM [facility] TOTAL PROTEIN 5.3(L) 6.4 - 8.3 g/dL 10/21/2024 7:07 AM CDT [facility] ALBUMIN 3.3(L) 3.5 - 5.2 g/dL 10/21/2024 7:07 AM T [facility] BILIRUBIN TOTAL 0.3 0.0 - 1.0 mg/dL 10/21/2024 7:07 AM T [facility] ALKALINE PHOSPHATASE 76 35 - 104 U/L 10/21/2024 7:07 AM [facility] AST 24 10 - 35 U/L 10/21/2024 7:07 AM T [facility] ALT 19 <=35 U/L 10/21/2024 7:07 AM [facility] GFR >60 >=60 mL/min/1.7 3 sq meter 10/21/2024 7:07 AM [facility] Comment:eGFR calculated with 2020 CKD-EPI equation. Vegetarian diet, extremely high or low muscle mass, and may affect results. Cystatin C with Glomerular Filtration Rate is a suitable alternative for these patients. ANION GAP 8(L) 9 - 20 mmol/L 10/21/2024 7:07 AM [facility] Blood Venipuncture / Unknown 10/21/2024 6:11 AM CDT 10/21/2024 6:25 AM CDT us Jaden Guzmán MD CHEMISTRY ORDERABLES Final Resul t [facility] CLIA # [id number] [address] [place] [id number] * (ABNORMAL) CBC WITH DIFFERENTIAL (10/21/2024 6:11 AM CDT) Pathologist [facility] WBC 8.8 4.8 - 10.8 K/uL 10/21/2024 6:36 AM T [facility] NRBCS 2(H) <1 % 10/21/2024 6:36 AM T [facility] RBC 2.75(L) 4.20 - 5.40 M/uL 10/21/2024 6:36 AM [facility] HEMOGLOBIN 7.8(L) 12.0 - 16.0 g/dL 10/21/2024 6:36 AM [facility] HEMATOCRIT 23.7(L) 36.0 - 46.0 % 10/21/2024 6:36 AM [facility] MCV 86.2 84.0 - 103.0 fL 10/21/2024 6:36 AM [facility] MCH 28.4 27.0 - 34.0 pg 10/21/2024 6:36 AM [facility] MCHC 32.9 30.0 - 35.0 g/dL 10/21/2024 6:36 AM [facility] PLATELETS 229 140 - 440 K/uL 10/21/2024 6:36 AM [facility] MPV 11.2 8.9 - 12.8 fL 10/21/2024 6:36 AM [facility] RDW 17.2(H) 11.0 - 14.5 % 10/21/2024 6:36 AM [facility] RDW-STDEV 53.2 37.0 - 54.0 fL 10/21/2024 6:36 AM [facility] NEUTROPHILS 71 42 - 75 % 10/21/2024 6:36 AM [facility] LYMPHOCYTES 13(L) 24 - 44 % 10/21/2024 6:36 AM [facility] MONOCYTES 15(H) 2 - 10 % 10/21/2024 6:36 AM [facility] EOSINOPHILS 0 0 - 7 % 10/21/2024 6:36 AM [facility] BASOPHILS 0 0 - 1 % 10/21/2024 6:36 AM [facility] IMMATURE GRANULOCYTES 1 0 - 2 % 10/21/2024 6:36 AM [facility] NEUTROPHIL ABSOLUTE 6.26 2.00 - 8.00 K/uL 10/21/2024 6:36 AM CDT [facility] LYMPHOCYTE ABSOLUTE 1.16(L) 1.20 - 4.00 K/uL 10/21/2024 6:36 AM CDT [facility] MONOCYTE ABSOLUTE 1.31(H) 0.10 - 0.60 K/uL 10/21/2024 6:36 AM CDT [facility] EOSINOPHIL ABSOLUTE 0.01 0.00 - 0.70 K/uL 10/21/2024 6:36 AM CDT [facility] BASOPHILS ABSOLUTE 0.03 0.00 - 0.20 K/uL 10/21/2024 6:36 AM CDT [facility] IMMATURE GRANULOCYTES ABSOLUTE 0.05 0.00 - 0.10 K/uL 10/21/2024 6:36 AM CDT [facility] SMEAR REVIEWED: NN - No Action Needed 10/21/2024 6:36 AM CDT [facility] Blood Venipuncture / Unknown 10/21/2024 6:11 AM CDT 10/21/2024 6:24 AM CDT Crescencio Aguero MD HEMATOLOGY ORDERABLES Final Res ult [facility] CLIA # [id number] [address] [place] [id number] * (ABNORMAL) HEMOGLOBIN AND HEMATOCRIT (10/20/2024 9:03 PM CDT) [facility] HEMOGLOBIN 7.6(L) 12.0 - 16.0 g/dL 10/20/2024 9:15 PM CDT [facility] HEMATOCRIT 23.3(L) 36.0 - 46.0 % 10/20/2024 9:15 PM CDT [facility] Blood Venipuncture / Unknown 10/20/2024 9:03 PM CDT 10/20/2024 9:11 PM CDT us Crescencio Aguero MD HEMATOLOGY ORDERABLES Final Res ult Performing Organization Address [facility]/ZIP Co de Phone Number [facility] CLIA # [id number] [address] [place], [place] [address] * (ABNORMAL) POC GLUCOSE (10/20/2024 5:03 PM CDT) GLUCOSE POC 163(H) 74 - 99 mg/dL 10/20/2024 5:03 PM CDT [facility] SPECIMEN SOURCE, GLUCOSE POC Capillary 10/20/2024 5:03 PM CDT [facility] Blood, whole 10/20/2024 5:03 PM CDT 10/20/2024 5:19 PM CDT us Jaden Guzmán MD POINT OF CARE TESTING Final Resu lt Performing Organization Address [facility] Co de Phone Number [facility] CLIA # [id number] [address] [place], [place] [address] * (ABNORMAL) POC GLUCOSE (10/20/2024 12:52 PM CDT) GLUCOSE POC 131(H) 74 - 99 mg/dL 10/20/2024 12:52 PM CDT [facility] SPECIMEN SOURCE, GLUCOSE POC Capillary 10/20/2024 12:52 PM CDT [facility] Blood, whole 10/20/2024 12:5 2 PM CDT 10/20/2024 1:00 PM CDT Jaden Guzmán MD POINT OF CARE TESTING Final Resu lt Performing Organization Address [facility]/ZIP Co de Phone Number [facility] CLIA # [id number] [address] [place], [place] [id number] * (ABNORMAL) HEMOGLOBIN AND HEMATOCRIT (10/20/2024 9:17 AM CDT) HEMOGLOBIN 7.9(L) 12.0 - 16.0 g/dL 10/20/2024 9:49 AM CDT [facility] HEMATOCRIT 23.8(L) 36.0 - 46.0 % 10/20/2024 9:49 AM CDT [facility] Blood Venipuncture / Unknown 10/20/2024 9:17 AM CDT 10/20/2024 9:39 AM CDT us Crescencio Aguero MD HEMATOLOGY ORDERABLES Final Res ult Performing Organization Address [facility]/ZIP Co de Phone Number [facility] CLIA # [id number] [address] [address] * (ABNORMAL) POC GLUCOSE (10/20/2024 8:39 AM CDT) Pathologist [facility] GLUCOSE POC 121(H) 74 - 99 mg/dL 10/20/2024 8:39 AM CDT [facility] SPECIMEN SOURCE, GLUCOSE POC Capillary 10/20/2024 8:39 AM CDT [facility] Blood, whole 10/20/2024 8:39 AM CDT 10/20/2024 8:47 AM CDT us Jaden Guzmán MD POINT OF CARE TESTING Final Resu lt Performing Organization Address City/[facility]/ZIP Co de Phone Number [facility] CLIA # [id number] [address] [address] * (ABNORMAL) COMPREHENSIVE METABOLIC PANEL (10/20/2024 3:02 AM CDT) SODIUM 134(L) 136 - 145 mmol/L 10/20/2024 3:58 AM [facility] POTASSIUM 4.1 3.5 - 5.1 mmol/L 10/20/2024 3:58 AM [facility] CHLORIDE 102 98 - 107 mmol/L 10/20/2024 3:58 AM [facility] CO2 22 22 - 29 mmol/L 10/20/2024 3:58 AM [facility] CALCIUM 8.1(L) 8.8 - 10.2 mg/dL 10/20/2024 3:58 AM [facility] BUN 7(L) 8 - 23 mg/dL 10/20/2024 3:58 AM [facility] CREATININE 0.78 0.51 - 0.95 mg/dL 10/20/2024 3:58 AM [facility] GLUCOSE 113(H) 74 - 99 mg/dL 10/20/2024 3:58 AM [facility] TOTAL PROTEIN 5.6(L) 6.4 - 8.3 g/dL 10/20/2024 3:58 AM [facility] ALBUMIN 3.4(L) 3.5 - 5.2 g/dL 10/20/2024 3:58 AM [facility] BILIRUBIN TOTAL 0.4 0.0 - 1.0 mg/dL 10/20/2024 3:58 AM [facility] ALKALINE PHOSPHATASE 75 35 - 104 U/L 10/20/2024 3:58 AM [facility] AST 23 10 - 35 U/L 10/20/2024 3:58 AM [facility] ALT 17 <=35 U/L 10/20/2024 3:58 AM [facility] GFR >60 >=60 mL/min/1.7 3 sq meter 10/20/2024 3:58 AM [facility] Comment:eGFR calculated with 2020 CKD-EPI equation. Vegetarian diet, extremely high or low muscle mass, and may affect results. Cystatin C with Glomerular Filtration Rate is a suitable alternative for these patients. ANION GAP 10 9 - 20 mmol/L 10/20/2024 3:58 AM CDT [facility] Blood Venipuncture / Unknown 10/20/2024 3:02 AM CDT 10/20/2024 3:23 AM CDT us Jaden Guzmán MD CHEMISTRY ORDERABLES Final Resul t [facility] CLIA # [id number] [facility] [address] [place] [address] * (ABNORMAL) CBC WITH DIFFERENTIAL (10/20/2024 3:02 AM CDT) Pathologist [facility] WBC 13.7(H) 4.8 - 10.8 K/uL 10/20/2024 3:24 AM CDT [facility] NRBCS 1(H) <1 % 10/20/2024 3:24 AM CDT [facility] RBC 2.92(L) 4.20 - 5.40 M/uL 10/20/2024 3:24 AM CDT [facility] HEMOGLOBIN 8.2(L) 12.0 - 16.0 g/dL 10/20/2024 3:24 AM CDT [facility] HEMATOCRIT 24.8(L) 36.0 - 46.0 % 10/20/2024 3:24 AM CDT [facility] MCV 84.9 84.0 - 103.0 fL 10/20/2024 3:24 AM CDT [facility] MCH 28.1 27.0 - 34.0 pg 10/20/2024 3:24 AM CDT [facility] MCHC 33.1 30.0 - 35.0 g/dL 10/20/2024 3:24 AM CDT [facility] PLATELETS 240 140 - 440 K/uL 10/20/2024 3:24 AM CDT [facility] MPV 11.3 8.9 - 12.8 fL 10/20/2024 3:24 AM [facility] RDW 17.0(H) 11.0 - 14.5 % 10/20/2024 3:24 AM [facility] RDW-STDEV 51.3 37.0 - 54.0 fL 10/20/2024 3:24 AM [facility] NEUTROPHILS 69 42 - 75 % 10/20/2024 3:24 AM [facility] LYMPHOCYTES 13(L) 24 - 44 % 10/20/2024 3:24 AM [facility] MONOCYTES 17(H) 2 - 10 % 10/20/2024 3:24 AM [facility] EOSINOPHILS 0 0 - 7 % 10/20/2024 3:24 AM [facility] BASOPHILS 0 0 - 1 % 10/20/2024 3:24 AM [facility] IMMATURE GRANULOCYTES 1 0 - 2 % 10/20/2024 3:24 AM [facility] NEUTROPHIL ABSOLUTE 9.51(H) 2.00 - 8.00 K/uL 10/20/2024 3:24 AM [facility] LYMPHOCYTE ABSOLUTE 1.79 1.20 - 4.00 K/uL 10/20/2024 3:24 AM [facility] MONOCYTE ABSOLUTE 2.27(H) 0.10 - 0.60 K/uL 10/20/2024 3:24 AM [facility] EOSINOPHIL ABSOLUTE 0.01 0.00 - 0.70 K/uL 10/20/2024 3:24 AM [facility] BASOPHILS ABSOLUTE 0.03 0.00 - 0.20 K/uL 10/20/2024 3:24 AM [facility] IMMATURE GRANULOCYTES ABSOLUTE 0.10 0.00 - 0.10 K/uL 10/20/2024 3:24 AM [facility] SMEAR REVIEWED: NA - Not Applicable 10/20/2024 3:24 AM [facility] Blood Venipuncture / Unknown 10/20/2024 3:02 AM CDT 10/20/2024 3:15 AM CDT Crescencio Aguero MD HEMATOLOGY ORDERABLES Final Res ult Performing Organization Address [facility]/ZIP Co de Phone Number [facility] CLIA # [id number] [address] [address] * (ABNORMAL) HEMOGLOBIN AND HEMATOCRIT (10/19/2024 7:38 PM CDT) [facility] HEMOGLOBIN 7.8(L) 12.0 - 16.0 g/dL 10/19/2024 7:55 PM CDT [facility] HEMATOCRIT 23.5(L) 36.0 - 46.0 % 10/19/2024 7:55 PM CDT [facility] Blood Venipuncture / Unknown 10/19/2024 7:38 PM CDT 10/19/2024 7:47 PM CDT Crescencio Aguero MD HEMATOLOGY ORDERABLES Final Res ult Performing Organization Address City/[facility]/ZIP Co de Phone Number [facility] CLIA # [id number] Formerly [facility] [address] [address] * (ABNORMAL) POC GLUCOSE (10/19/2024 4:36 PM CDT) Pathologist [facility] GLUCOSE POC 146(H) 74 - 99 mg/dL 10/19/2024 4:36 PM CDT [facility] SPECIMEN SOURCE, GLUCOSE POC Capillary 10/19/2024 4:36 PM CDT [facility] COMMENT, GLU POC Alerted Nurse/CHARLA/DR 10/19/2024 4:36 PM CDT [facility] Blood, whole 10/19/2024 4:36 PM CDT 10/19/2024 4:52 PM CDT Jaden Guzmán MD POINT OF CARE TESTING Final Resu lt Performing Organization Address [facility] Co de Phone Number [facility] CLIA # [id number] [address] [address] * TRANSFUSE RED BLOOD CELLS (10/19/2024 1:19 PM CDT) Jaden Guzmán MD BLOOD TRANSFUSION ORDERABLES Fin al Result * TRANSFUSE RED BLOOD CELLS (10/19/2024 1:19 PM CDT) Jaden Guzmán MD BLOOD TRANSFUSION ORDERABLES Fin al Result * (ABNORMAL) POC GLUCOSE (10/19/2024 1:19 PM CDT) GLUCOSE POC 119(H) 74 - 99 mg/dL 10/19/2024 1:19 PM CDT [facility] SPECIMEN SOURCE, GLUCOSE POC Capillary 10/19/2024 1:19 PM CDT [facility] Blood, whole 10/19/2024 1:19 PM CDT 10/19/2024 1:30 PM CDT Jaden Guzmán MD POINT OF CARE TESTING Final Resu lt Performing Organization Address [facility] Co de Phone Number [facility] CLIA # [id number] [address] [address] * PATHOLOGY (10/19/2024 12:41 PM CDT) CASE REPORT Surgical Pathology Report Case: [id number] Authorizing Provider: Crescencio Aguero MD Collected: 10/19/2024 12:41 PM Ordering Location: [facility] Received: 10/19/2024 01:44 PM Operating Room Pathologist: Murray Fernández MD Specimen: Hemorrhoids 3:38 PM CDT [facility] FINAL DIAGNOSIS A. Hemorrhoids, excision - Hemorrhoids - Negative for dysplasia or malignancy Murray Fernández MD [id number] 3:38 PM CDT [facility] at 1538 CDT GROSS DESCRIPTION A. Received in a container of formalin labeled Main -hemorrhoids are 3 lopez-topete, wrinkled skin fragments, that range from 1.5 to 2.3 cm in greatest dimension. Sectioning reveals hemorrhagic, mildly edematous cut surfaces. No discrete masses or lesions are grossly identified. Stamp Press Operator sections are submitted in A1. Grossed by: Kita Hobbs MS, PA (ASCP)CM 3:38 PM CDT [facility] OPERATIVE PROCEDURE 1: HEMORRHOIDECTOMY 3:38 PM CDT [facility] COMMENT The aiHit voice-activated dictation system may have been used [...] determined by the Diagnostic Immunohistochemistry Laboratory of [facility] in compliance with CLIA'88 regulations. Some of these tests rely on the use of analyte specific reagents and are subject to specific labeling requirements by the FDA. All controls show appropriate reactivity. This testing was developed by the Diagnostic Immunohistochemistry Laboratory of [facility]. It has not been cleared or approved by the FDA. The FDA has determined that such clearance or approval is not necessary. 3:38 PM CDT [facility] Tissue (Hemorrhoids) Collection / Unknown 10/19/2024 12:41 PM CDT 10/19/2024 1:44 PM CDT us Crescencio Aguero MD PATHOLOGY/CYTOLOGY ORDERABLES F inal Result [facility] CLIA # [id number] [address] [place] [address] * (ABNORMAL) POC GLUCOSE (10/19/2024 7:20 AM CDT) Pathologist [facility] GLUCOSE POC 111(H) 74 - 99 mg/dL 10/19/2024 7:20 AM CDT [facility] SPECIMEN SOURCE, GLUCOSE POC Capillary 10/19/2024 7:20 AM CDT [facility] Blood, whole 10/19/2024 7:20 AM CDT 10/19/2024 7:56 AM CDT Uri Rojas MD POINT OF CARE TESTING [facility] al Result Performing Organization Address City/[facility]/ZIP Co de Phone Number [facility] [place] CLIA # [id number] [address] [address] * PREPARE RED BLOOD CELLS (10/19/2024 6:29 AM CDT) [facility] COMPONENT TYPE [id number] [facility] [place] COMPONENT IDENTIFICATION [id number] [facility] [place] UN[facility] ABO O [facility] [place] [facility] RH NEG [facility] [place] CROSSMATCH Compatible [facility] [place] COMPONENT STATUS Transfused [facility] [place] COMPONENT EXPIRATION DATE/TIME [id number] [facility] [place] COMPONENT CODING SYSTEM 9500 [facility] [place] VOLUME, BLOOD PRODUCT 350 [facility] [place] 10/19/2024 6:29 AM CDT Andrey Tanner MD LAB TRANSFUSION ORDERAB LES Edited Result - Final [facility] [place] CLIA#[id number] [address] [place] [address], * PREPARE RED BLOOD CELLS (10/19/2024 6:09 AM CDT) COMPONENT TYPE [id number] [facility] [place] COMPONENT IDENTIFICATION [id number] [facility] [place] UNIT ABO O [facility] [place] [facility] RH NEG [facility] -- [place] CROSSMATCH Compatible [facility] [place] COMPONENT STATUS Returned [facility] -- [place] COMPONENT EXPIRATION DATE/TIME [phone] [facility] [place] COMPONENT CODING SYSTEM 9500 [facility] [place] VOLUME, BLOOD PRODUCT 350 [facility] [place] Other, specify 10/19/2024 6: 09 AM CDT Andrey Tanner MD LAB TRANSFUSION ORDERAB LES Edited Result - Final [facility] [place] CLIA#[id number] [address] [place] [address], * PREPARE RED BLOOD CELLS (10/19/2024 6:09 AM CDT) COMPONENT TYPE [id number] [facility] [place] COMPONENT IDENTIFICATION [id number] [facility] [place] UN[facility] ABO O [facility] [place] [facility] RH NEG [facility] [place] CROSSMATCH Compatible [facility] [place] COMPONENT STATUS Returned [facility] LAB[facility]ATORY SERVICES -- [place] COMPONENT EXPIRATION DATE/TIME [id number] [facility] [place] COMPONENT CODING SYSTEM 9500 [facility] [place] VOLUME, BLOOD PRODUCT 350 [facility] [place] Other, specify 10/19/2024 6: 09 AM CDT Crescencio Aguero MD LAB TRANSFUSION ORDERABLES Edit ed Result - Final [facility] CLIA#[id number] [facility] [place] [address], * (ABNORMAL) CBC WITH DIFFERENTIAL (10/19/2024 5:52 AM CDT) [facility] WBC 7.7 4.8 - 10.8 K/uL 10/19/2024 6:12 AM CDT [facility] NRBCS 1(H) <1 % 10/19/2024 6:12 AM CDT [facility] RBC 2.38(L) 4.20 - 5.40 M/uL 10/19/2024 6:12 AM T [facility] HEMOGLOBIN 6.7(LL) 12.0 - 16.0 g/dL 10/19/2024 6:12 AM T [facility] HEMATOCRIT 20.3(L) 36.0 - 46.0 % 10/19/2024 6:12 AM T [facility] MCV 85.3 84.0 - 103.0 fL 10/19/2024 6:12 AM T [facility] MCH 28.2 27.0 - 34.0 pg 10/19/2024 6:12 AM T [facility] MCHC 33.0 30.0 - 35.0 g/dL 10/19/2024 6:12 AM T [facility] PLATELETS 174 140 - 440 K/uL 10/19/2024 6:12 AM T [facility] MPV 10.8 8.9 - 12.8 fL 10/19/2024 6:12 AM T [facility] RDW 17.1(H) 11.0 - 14.5 % 10/19/2024 6:12 AM T [facility] RDW-STDEV 51.4 37.0 - 54.0 fL 10/19/2024 6:12 AM T [facility] NEUTROPHILS 67 42 - 75 % 10/19/2024 6:12 AM CDT [facility] LYMPHOCYTES 12(L) 24 - 44 % 10/19/2024 6:12 AM CDT [facility] MONOCYTES 20(H) 2 - 10 % 10/19/2024 6:12 AM CDT [facility] EOSINOPHILS 0 0 - 7 % 10/19/2024 6:12 AM CDT [facility] BASOPHILS 0 0 - 1 % 10/19/2024 6:12 AM CDT [facility] IMMATURE GRANULOCYTES 1 0 - 2 % 10/19/2024 6:12 AM CDT [facility] NEUTROPHIL ABSOLUTE 5.12 2.00 - 8.00 K/uL 10/19/2024 6:12 AM CDT [facility] LYMPHOCYTE ABSOLUTE 0.91(L) 1.20 - 4.00 K/uL 10/19/2024 6:12 AM CDT [facility] MONOCYTE ABSOLUTE 1.55(H) 0.10 - 0.60 K/uL 10/19/2024 6:12 AM CDT [facility] EOSINOPHIL ABSOLUTE 0.01 0.00 - 0.70 K/uL 10/19/2024 6:12 AM CDT [facility] BASOPHILS ABSOLUTE 0.03 0.00 - 0.20 K/uL 10/19/2024 6:12 AM CDT [facility] IMMATURE GRANULOCYTES ABSOLUTE 0.05 0.00 - 0.10 K/uL 10/19/2024 6:12 AM CDT [facility] SMEAR REVIEWED: NA - Not Applicable 10/19/2024 6:12 AM T [facility] Blood Venipuncture / Unknown 10/19/2024 5:52 AM CDT 10/19/2024 6:03 AM CDT us Crescencio Aguero MD HEMATOLOGY ORDERABLES Final Res ult [facility] CLIA # [id number] [address] [address] [place] [address] * MAGNESIUM LEVEL (10/19/2024 5:52 AM CDT) [facility] MAGNESIUM 2.2 1.6 - 2.4 mg/dL 10/19/2024 6:41 AM CDT [facility] Blood Venipuncture / Unknown 10/19/2024 5:52 AM CDT 10/19/2024 6:03 AM CDT Jeb Alvarez III, DO CHEMISTRY ORDERABLES Zaida l Result Performing Organization Address [facility] de Phone Number [facility] CLIA # [id number] [address] [address] * (ABNORMAL) HEMOGLOBIN AND HEMATOCRIT (10/18/2024 9:30 PM CDT) [facility] HEMOGLOBIN 7.0(L) 12.0 - 16.0 g/dL 10/18/2024 9:58 PM CDT [facility] HEMATOCRIT 21.2(L) 36.0 - 46.0 % 10/18/2024 9:58 PM CDT [facility] Blood Venipuncture / Unknown 10/18/2024 9:30 PM CDT 10/18/2024 9:49 PM CDT Crescencio Aguero MD HEMATOLOGY ORDERABLES Final Res ult Performing Organization Address [facility] de Phone Number [facility] CLIA # [id number] [facility] [address] * (ABNORMAL) POC GLUCOSE (10/18/2024 4:21 PM CDT) [facility] GLUCOSE POC 109(H) 74 - 99 mg/dL 10/18/2024 4:21 PM CDT [facility] SPECIMEN SOURCE, GLUCOSE POC Capillary 10/18/2024 4:21 PM CDT [facility] Blood, whole 10/18/2024 4:21 PM CDT 10/18/2024 4:29 PM CDT Uri Rojas MD POINT OF CARE TESTING Fin al Result Performing Organization Address [facility] Co de Phone Number [facility] CLIA # [id number] [address] [address] [place], [place] [address] * (ABNORMAL) POC GLUCOSE (10/18/2024 11:49 AM CDT) [facility] GLUCOSE POC 124(H) 74 - 99 mg/dL 10/18/2024 11:49 AM CDT [facility] SPECIMEN SOURCE, GLUCOSE POC Capillary 10/18/2024 11:49 AM CDT [facility] Blood, whole 10/18/2024 11:4 9 AM CDT 10/18/2024 12:00 PM CDT us Jeb Alvarez III, DO POINT OF CARE TESTING Fin al Result Performing Organization Address [facility] Co de Phone Number [facility] CLIA # [id number] [address] [address] * CELL COUNT WITH DIFFERENTIAL, BODY FLUID (10/18/2024 10:45 AM CDT) Pathologist [facility] APPEARANCE, BODY FLUID Clear 10/18/2024 11:34 AM CDT [facility] COLOR, FLD Colorless 10/18/2024 11:34 AM CDT [facility] TOTAL NUCLEATED CELLS, FLD (AUTO) 81 No Ref Range Estab /ul 10/18/2024 11:34 AM CDT [facility] TOTAL RBC'S, FLD (AUTO) <3,000 No Ref Range Estab /ul 10/18/2024 11:34 AM CDT [facility] NEUTROPHILS, FLD 10 No Ref Range Estab % 10/18/2024 11:34 AM CDT [facility] LYMPHOCYTE, FLD 26 No Ref Range Estab % 10/18/2024 11:34 AM CDT [facility] MONOCYTE/MACROP HUI, FLD 62 No Ref Range Estab % 10/18/2024 11:34 AM CDT [facility] MESOTHELIAL FLD 3 No Ref Range Estab % 10/18/2024 11:34 AM CDT [facility] Body fluid ENTIRE SEROUS MEMBRANE OF PERITONEUM / Unknown Collection / Unknown 10/18/2024 10:45 AM CDT 10/18/2024 10:49 AM CDT Jeb O Alvarez III, DO BODY FLUIDS AND STOOLS Fi nal Result Performing Organization Address [facility] Co de Phone Number [facility] CLIA # [id number] [facility] [address] * (ABNORMAL) C-REACTIVE PROTEIN (10/18/2024 7:13 AM CDT) CRP 10.6(H) 0.0 - 5.0 mg/L 10/18/2024 11:08 AM CDT [facility] Blood Venipuncture / Unknown 10/18/2024 7:13 AM CDT 10/18/2024 7:19 AM CDT Songdropus O Alvarez III, DO CHEMISTRY ORDERABLES Zaida l Result Performing Organization Address [facility] Co de Phone Number [facility] CLIA # [id number] [facility] [address] * (ABNORMAL) CBC WITH DIFFERENTIAL (10/18/2024 7:13 AM CDT) WBC 9.7 4.8 - 10.8 K/uL 10/18/2024 7:22 AM [facility] NRBCS 1(H) <1 % 10/18/2024 7:22 AM [facility] RBC 2.85(L) 4.20 - 5.40 M/uL 10/18/2024 7:22 AM [facility] HEMOGLOBIN 8.0(L) 12.0 - 16.0 g/dL 10/18/2024 7:22 AM [facility] HEMATOCRIT 23.8(L) 36.0 - 46.0 % 10/18/2024 7:22 AM [facility] MCV 83.5(L) 84.0 - 103.0 fL 10/18/2024 7:22 AM [facility] MCH 28.1 27.0 - 34.0 pg 10/18/2024 7:22 AM [facility] MCHC 33.6 30.0 - 35.0 g/dL 10/18/2024 7:22 AM [facility] PLATELETS 207 140 - 440 K/uL 10/18/2024 7:22 AM [facility] MPV 11.9 8.9 - 12.8 fL 10/18/2024 7:22 AM [facility] RDW 16.6(H) 11.0 - 14.5 % 10/18/2024 7:22 AM [facility] RDW-STDEV 50.0 37.0 - 54.0 fL 10/18/2024 7:22 AM [facility] NEUTROPHILS 72 42 - 75 % 10/18/2024 7:22 AM [facility] LYMPHOCYTES 13(L) 24 - 44 % 10/18/2024 7:22 AM [facility] MONOCYTES 15(H) 2 - 10 % 10/18/2024 7:22 AM [facility] EOSINOPHILS 0 0 - 7 % 10/18/2024 7:22 AM [facility] BASOPHILS 0 0 - 1 % 10/18/2024 7:22 AM [facility] IMMATURE GRANULOCYTES 1 0 - 2 % 10/18/2024 7:22 AM CDT [facility] NEUTROPHIL ABSOLUTE 6.97 2.00 - 8.00 K/uL 10/18/2024 7:22 AM CDT [facility] LYMPHOCYTE ABSOLUTE 1.21 1.20 - 4.00 K/uL 10/18/2024 7:22 AM CDT [facility] MONOCYTE ABSOLUTE 1.40(H) 0.10 - 0.60 K/uL 10/18/2024 7:22 AM CDT [facility] EOSINOPHIL ABSOLUTE 0.01 0.00 - 0.70 K/uL 10/18/2024 7:22 AM CDT [facility] BASOPHILS ABSOLUTE 0.03 0.00 - 0.20 K/uL 10/18/2024 7:22 AM CDT [facility] IMMATURE GRANULOCYTES ABSOLUTE 0.06 0.00 - 0.10 K/uL 10/18/2024 7:22 AM CDT [facility] SMEAR REVIEWED: NA - Not Applicable 10/18/2024 7:22 AM CDT [facility] Blood Venipuncture / Unknown 10/18/2024 7:13 AM CDT 10/18/2024 7:19 AM CDT Crescencio Aguero MD HEMATOLOGY ORDERABLES Final Res ult [facility] # [id number] [address] [place] [address] * MAGNESIUM LEVEL (10/18/2024 7:13 AM CDT) Pathologist [facility] MAGNESIUM 2.3 1.6 - 2.4 mg/dL 10/18/2024 7:53 AM CDT [facility] Blood Venipuncture / Unknown 10/18/2024 7:13 AM CDT 10/18/2024 7:19 AM CDT us Jeb Alvarez III, DO CHEMISTRY ORDERABLES Zaida l Result [facility] [place]SE # [id number] [facility] [address] [place] [address] * (ABNORMAL) COMPREHENSIVE METABOLIC PANEL (10/18/2024 7:13 AM CDT) SODIUM 133(L) 136 - 145 mmol/L 10/18/2024 7:53 AM CDT [facility] POTASSIUM 3.4(L) 3.5 - 5.1 mmol/L 10/18/2024 7:53 AM CDT [facility] CHLORIDE 101 98 - 107 mmol/L 10/18/2024 7:53 AM CDT [facility] CO2 23 22 - 29 mmol/L 10/18/2024 7:53 AM CDT [facility] CALCIUM 7.6(L) 8.8 - 10.2 mg/dL 10/18/2024 7:53 AM T [facility] BUN 14 8 - 23 mg/dL 10/18/2024 7:53 AM T [facility] CREATININE 0.94 0.51 - 0.95 mg/dL 10/18/2024 7:53 AM T [facility] GLUCOSE 182(H) 74 - 99 mg/dL 10/18/2024 7:53 AM T [facility] TOTAL PROTEIN 5.0(L) 6.4 - 8.3 g/dL 10/18/2024 7:53 AM T [facility] ALBUMIN 3.3(L) 3.5 - 5.2 g/dL 10/18/2024 7:53 AM CDT [facility] BILIRUBIN TOTAL 0.3 0.0 - 1.0 mg/dL 10/18/2024 7:53 AM CDT [facility] ALKALINE PHOSPHATASE 54 35 - 104 U/L 10/18/2024 7:53 AM T [facility] AST 18 10 - 35 U/L 10/18/2024 7:53 AM CDT [facility] ALT 14 <=35 U/L 10/18/2024 7:53 AM CDT [facility] GFR >60 >=60 mL/min/1.7 3 sq meter 10/18/2024 7:53 AM CDT [facility] Comment:eGFR calculated with 2020 CKD-EPI equation. Vegetarian diet, extremely high or low muscle mass, and may affect results. Cystatin C with Glomerular Filtration Rate is a suitable alternative for these patients. ANION GAP 9 9 - 20 mmol/L 10/18/2024 7:53 AM CDT [facility] Blood Venipuncture / Unknown 10/18/2024 7:13 AM CDT 10/18/2024 7:19 AM CDT us Cassie CALVERT CHEMISTRY ORDERABLES Final Resu lt Performing Organization Address [facility] Co de Phone Number [facility] CLIA # [id number] [address] [address] * (ABNORMAL) HEMOGLOBIN AND HEMATOCRIT (10/18/2024 12:21 AM CDT) [facility] HEMOGLOBIN 8.0(L) 12.0 - 16.0 g/dL 10/18/2024 12:27 AM CDT [facility] HEMATOCRIT 23.1(L) 36.0 - 46.0 % 10/18/2024 12:27 AM CDT [facility] Blood Venipuncture / Unknown 10/18/2024 12:21 AM CDT 10/18/2024 12:25 AM CDT Cassie CALVERT HEMATOLOGY ORDERABLES Final Res ult Performing Organization Address City/[facility]/ZIP Co de Phone Number [facility] CLIA # [id number] [address] [address] * (ABNORMAL) HEMOGLOBIN AND HEMATOCRIT (10/17/2024 4:49 PM CDT) HEMOGLOBIN 8.2(L) 12.0 - 16.0 g/dL 10/17/2024 5:10 PM CDT [facility] HEMATOCRIT 24.3(L) 36.0 - 46.0 % 10/17/2024 5:10 PM CDT [facility] Blood Venipuncture / Unknown 10/17/2024 4:49 PM CDT 10/17/2024 4:59 PM CDT us Cassie CALVERT HEMATOLOGY ORDERABLES Final Res ult [facility] CLIA # [id number] [address] [place] [id number] * COLONOSCOPY REPORT (10/17/2024 12:29 PM CDT) Narrative Procedure Note Julianne David DO - 10/17/2024 12:28 PM CDT [facility] GI Patient Name: Viry Quach Procedure Date: [...] is a 59 year old female. [address] [place], [place] Julianne Milner DO GI PROCEDURE ORDERABLE S Final Result * PATHOLOGY (10/17/2024 12:22 PM CDT) CASE REPORT Surgical Pathology Report Case: [id number] Authorizing Provider: Umair Davidela, Collected: 10/17/2024 12:22 PM DO Ordering Location: [facility] Received: 10/17/2024 01:47 PM Endoscopy Pathologist: Tamia Wolff MD Specimens: A) - Colon, cecum, polyp B) - Colon, sigmoid, polyp 10:44 AM CDT [facility] FINAL DIAGNOSIS A. Colon, cecum, polyp - Adenomatous polyp / B. Colon, sigmoid, polyp - Adenomatous polyp Tamia Wolff MD [id number] 10:44 AM CDT [facility] at 1044 CDT GROSS DESCRIPTION A. Received in formalin labeled Main -cecum polyp are multiple fragments of tissue, 1.0 x 0.5 x 0.1 cm in aggregate. The specimen is submitted in toto in A1. B. Received in formalin labeled Main -sigmoid colon polyp is a 0.5 cm (greatest dimension) fragment of tissue. The specimen is submitted in toto in B1. Grossed by: Nubia Gentile MS, PA ([facility]) 10:44 AM CDT [facility] OPERATIVE PROCEDURE 1: COLONOSCOPY 10:44 AM CDT [facility] CLINICAL INFORMATION None provided 10:44 AM CDT [facility] COMMENT The aiHit voice-activated dictation system may have been used [...] determined by the Diagnostic Immunohistochemistry Laboratory of [facility] in compliance with CLIA'88 regulations. Some of these tests rely on the use of analyte specific reagents and are subject to specific labeling requirements by the FDA. All controls show appropriate reactivity. This testing was developed by the Diagnostic Immunohistochemistry Laboratory of [facility]. It has not been cleared or approved by the FDA. The FDA has determined that such clearance or approval is not necessary. 10:44 AM CDT [facility] Tissue SPECIMEN FROM COLON / Unknown Collection / Unknown 10/17/2024 12:22 PM CDT 10/17/2024 1:47 PM CDT Comment:Verified by TB/Aguila Rinaldi MD Tissue specimen (specimen) SIGMOID COLON STRUCTURE / Unknown 10/17/2024 12:25 PM CDT 10/17/2024 1:47 PM CDT Comment:Verified by TB/Aguila Rinaldi MD Julianne Milner DO PATHOLOGY/CYTOLOGY ORD ERABLES Final Result Performing Organization Address City/[facility]/ZIP Co de Phone Number [facility] CLIA # [id number] [address] [facility] [place] [address] * TRANSFUSE RED BLOOD CELLS (10/17/2024 11:01 AM CDT) Jonathan Sampson MD BLOOD TRANSFUSION ORDERABLES Fi nal Result * TRANSFUSE RED BLOOD CELLS (10/17/2024 11:01 AM CDT) Jonathan Sampson MD BLOOD TRANSFUSION ORDERABLES Fi nal Result * PHOSPHORUS (10/17/2024 5:56 AM CDT) PHOSPHORUS 3.6 2.5 - 4.5 mg/dL 10/17/2024 7:44 AM CDT [facility] Blood Venipuncture / Unknown 10/17/2024 5:56 AM CDT 10/17/2024 6:05 AM CDT Jonathan Sampson MD CHEMISTRY ORDERABLES Final Resu lt Performing Organization Address City/[facility]/ZIP Co de Phone Number [facility] CLIA # [id number] [address] [address] * MAGNESIUM LEVEL (10/17/2024 5:56 AM CDT) [facility] MAGNESIUM 1.9 1.6 - 2.4 mg/dL 10/17/2024 7:44 AM CDT [facility] Blood Venipuncture / Unknown 10/17/2024 5:56 AM CDT 10/17/2024 6:05 AM CDT us Jonathan Sampson MD CHEMISTRY ORDERABLES Final Resu lt [facility] CLIA # [id number] [address] [place] [address] * (ABNORMAL) CBC WITH DIFFERENTIAL (10/17/2024 5:56 AM CDT) [facility] WBC 14.2(H) 4.8 - 10.8 K/uL 10/17/2024 6:15 AM CDT [facility] NRBCS 1(H) <1 % 10/17/2024 6:15 AM CDT [facility] RBC 2.58(L) 4.20 - 5.40 M/uL 10/17/2024 6:15 AM CDT [facility] HEMOGLOBIN 7.2(L) 12.0 - 16.0 g/dL 10/17/2024 6:15 AM CDT [facility] HEMATOCRIT 21.3(L) 36.0 - 46.0 % 10/17/2024 6:15 AM CDT [facility] MCV 82.6(L) 84.0 - 103.0 fL 10/17/2024 6:15 AM CDT [facility] MCH 27.9 27.0 - 34.0 pg 10/17/2024 6:15 AM CDT [facility] MCHC 33.8 30.0 - 35.0 g/dL 10/17/2024 6:15 AM [facility] PLATELETS 253 140 - 440 K/uL 10/17/2024 6:15 AM [facility] MPV 11.7 8.9 - 12.8 fL 10/17/2024 6:15 AM [facility] RDW 17.4(H) 11.0 - 14.5 % 10/17/2024 6:15 AM [facility] RDW-STDEV 51.3 37.0 - 54.0 fL 10/17/2024 6:15 AM [facility] NEUTROPHILS 63 42 - 75 % 10/17/2024 6:15 AM [facility] LYMPHOCYTES 22(L) 24 - 44 % 10/17/2024 6:15 AM [facility] MONOCYTES 14(H) 2 - 10 % 10/17/2024 6:15 AM [facility] EOSINOPHILS 0 0 - 7 % 10/17/2024 6:15 AM [facility] BASOPHILS 0 0 - 1 % 10/17/2024 6:15 AM [facility] IMMATURE GRANULOCYTES 1 0 - 2 % 10/17/2024 6:15 AM [facility] NEUTROPHIL ABSOLUTE 8.96(H) 2.00 - 8.00 K/uL 10/17/2024 6:15 AM [facility] LYMPHOCYTE ABSOLUTE 3.09 1.20 - 4.00 K/uL 10/17/2024 6:15 AM [facility] MONOCYTE ABSOLUTE 1.99(H) 0.10 - 0.60 K/uL 10/17/2024 6:15 AM [facility] EOSINOPHIL ABSOLUTE 0.01 0.00 - 0.70 K/uL 10/17/2024 6:15 AM [facility] BASOPHILS ABSOLUTE 0.05 0.00 - 0.20 K/uL 10/17/2024 6:15 AM [facility] IMMATURE GRANULOCYTES ABSOLUTE 0.11(H) 0.00 - 0.10 K/uL 10/17/2024 6:15 AM CDT [facility] SMEAR REVIEWED: NA - Not Applicable 10/17/2024 6:15 AM T [facility] Blood Venipuncture / Unknown 10/17/2024 5:56 AM CDT 10/17/2024 6:04 AM CDT us Crescencio Aguero MD HEMATOLOGY ORDERABLES Final Res ult [facility] CLIA # [id number] [address] [place] [address] * (ABNORMAL) COMPREHENSIVE METABOLIC PANEL (10/17/2024 5:56 AM CDT) SODIUM 132(L) 136 - 145 mmol/L 10/17/2024 6:40 AM [facility] POTASSIUM 3.9 3.5 - 5.1 mmol/L 10/17/2024 6:40 AM [facility] CHLORIDE 100 98 - 107 mmol/L 10/17/2024 6:40 AM [facility] CO2 21(L) 22 - 29 mmol/L 10/17/2024 6:40 AM [facility] CALCIUM 7.8(L) 8.8 - 10.2 mg/dL 10/17/2024 6:40 AM [facility] BUN 18 8 - 23 mg/dL 10/17/2024 6:40 AM [facility] CREATININE 1.10(H) 0.51 - 0.95 mg/dL 10/17/2024 6:40 AM T [facility] GLUCOSE 141(H) 74 - 99 mg/dL 10/17/2024 6:40 AM [facility] TOTAL PROTEIN 5.2(L) 6.4 - 8.3 g/dL 10/17/2024 6:40 AM [facility] ALBUMIN 3.1(L) 3.5 - 5.2 g/dL 10/17/2024 6:40 AM CDT [facility] BILIRUBIN TOTAL 0.4 0.0 - 1.0 mg/dL 10/17/2024 6:40 AM CDT [facility] ALKALINE PHOSPHATASE 54 35 - 104 U/L 10/17/2024 6:40 AM CDT [facility] AST 17 10 - 35 U/L 10/17/2024 6:40 AM CDT [facility] ALT 15 <=35 U/L 10/17/2024 6:40 AM CDT [facility] GFR 58(L) >=60 mL/min/1. 73 sq meter 10/17/2024 6:40 AM CDT [facility] Comment:eGFR calculated with 2020 CKD-EPI equation. Vegetarian diet, extremely high or low muscle mass, and may affect results. Cystatin C with Glomerular Filtration Rate is a suitable alternative for these patients. ANION GAP 11 9 - 20 mmol/L 10/17/2024 6:40 AM CDT [facility] Blood Venipuncture / Unknown 10/17/2024 5:56 AM CDT 10/17/2024 6:05 AM CDT us Cassie CALVERT CHEMISTRY ORDERABLES Final Resu lt [id number] [address] [place] [address] * HELICOBACTER PYLORI ANTIGEN, STOOL (10/17/2024 3:10 AM CDT) H. PYLORI AG, STOOL SEE COMMENT 10/19/2024 12:37 PM CDT [facility] Comment: HELICOBACTER PYLORI AG, EIA, STOOL Micro Number: [id number] Test Status: Final Specimen Source: Stool Specimen [...] CDT Performing Organization Information: Site ID: Name: [facility] Address: [address] [place] [address] Director: Kiko Grimes us Mayo Taylor MD BODY FLUIDS AND STOOLS Fi nal Result [facility] [place] GI PATHOGEN PCR PANEL (10/17/2024 3:10 AM CDT) [facility] GI Pathogen PCR panel NOT DETECTED No nucleic acids detected. 10/17/2024 4:45 AM CDT [facility] [employer] [facility] Stool STOOL SPECIMEN / Unknown Collection / Unknown 10/17/2024 3:10 AM CDT 10/17/2024 3:19 AM CDT [facility] [employer] [facility] - 10/17/2024 4:45 AM CDT The [...] MD MICROBIOLOGY - NERAL ORDERABLES Final Result [facility] CLIA # [id number] [address] [address] * (ABNORMAL) HEMOGLOBIN AND HEMATOCRIT (10/17/2024 12:37 AM CDT) HEMOGLOBIN 7.6(L) 12.0 - 16.0 g/dL 10/17/2024 12:58 AM CDT [facility] HEMATOCRIT 22.2(L) 36.0 - 46.0 % 10/17/2024 12:58 AM CDT [facility] Blood Venipuncture / Unknown 10/17/2024 12:37 AM CDT 10/17/2024 12:52 AM CDT us Cassie CALVERT HEMATOLOGY ORDERABLES Final Res ult [facility] CLIA # [id number] [facility] [address] * UPPER ENDOSCOPY REPORT (10/16/2024 11:13 PM CDT) Narrative Procedure Note Mayo Taylor MD - 10/16/2024 11:12 PM CDT [facility] GI Patient Name: Viry Quach Procedure Date: [...] Time Scope In: Scope Out: [address] [place], [place] Mayo Taylor MD GI PROCEDURE ORDERABLES F inal Result * TYPE AND SCREEN (10/16/2024 8:42 PM CDT) ABO GROUP O 10/16/2024 9:37 PM CDT [facility] [place] RH (D) TYPE Negative 10/16/2024 9:37 PM CDT [facility] [place] ANTIBODY SCREEN Negative 10/16/2024 9:37 PM CDT [facility] [place] Blood Venipuncture / Unknown 10/16/2024 8:42 PM CDT 10/16/2024 8:51 PM CDT us Je Garnett MD BLOOD BANK ORDERA BLES Edited Result - Final [facility] CLIA#[id number] [address] [place] [address], * MAGNESIUM LEVEL (10/16/2024 8:42 PM CDT) [facility] MAGNESIUM 2.0 1.6 - 2.4 mg/dL 10/16/2024 9:31 PM CDT [facility] Blood Venipuncture / Unknown 10/16/2024 8:42 PM CDT 10/16/2024 8:54 PM CDT us Je Garnett MD CHEMISTRY ORDERAB LES Final Result Performing Organization Address City/[facility] Co de Phone Number [facility] CLIA # [id number] [address] [address] * LACTIC ACID (10/16/2024 8:42 PM CDT) [facility] LACTIC ACID 1.6 <=2.0 mmol/L 10/16/2024 9:57 PM CDT [facility] Blood BLOOD SPECIMEN / Unknown Venipuncture / Unknown 10/16/2024 8:42 PM CDT 10/16/2024 8:52 PM CDT us Je Garnett MD CHEMISTRY ORDERAB LES Final Result [facility] CLIA # [id number] [address] [address] * (ABNORMAL) COMPREHENSIVE METABOLIC PANEL (10/16/2024 8:42 PM CDT) [facility] SODIUM 132(L) 136 - 145 mmol/L 10/16/2024 9:31 PM [facility] POTASSIUM 3.9 3.5 - 5.1 mmol/L 10/16/2024 9:31 PM [facility] CHLORIDE 101 98 - 107 mmol/L 10/16/2024 9:31 PM [facility] CO2 21(L) 22 - 29 mmol/L 10/16/2024 9:31 PM [facility] CALCIUM 8.1(L) 8.8 - 10.2 mg/dL 10/16/2024 9:31 PM [facility] BUN 18 8 - 23 mg/dL 10/16/2024 9:31 PM [facility] CREATININE 1.12(H) 0.51 - 0.95 mg/dL 10/16/2024 9:31 PM [facility] GLUCOSE 119(H) 74 - 99 mg/dL 10/16/2024 9:31 PM [facility] TOTAL PROTEIN 5.5(L) 6.4 - 8.3 g/dL 10/16/2024 9:31 PM [facility] ALBUMIN 3.4(L) 3.5 - 5.2 g/dL 10/16/2024 9:31 PM [facility] BILIRUBIN TOTAL 0.8 0.0 - 1.0 mg/dL 10/16/2024 9:31 PM [facility] ALKALINE PHOSPHATASE 59 35 - 104 U/L 10/16/2024 9:31 PM [facility] AST 18 10 - 35 U/L 10/16/2024 9:31 PM [facility] ALT 17 <=35 U/L 10/16/2024 9:31 PM [facility] GFR 56(L) >=60 mL/min/1. 73 sq meter 10/16/2024 9:31 PM [facility] Comment:eGFR calculated with 2020 CKD-EPI equation. Vegetarian diet, extremely high or low muscle mass, and may affect results. Cystatin C with Glomerular Filtration Rate is a suitable alternative for these patients. ANION GAP 10 9 - 20 mmol/L 10/16/2024 9:31 PM CDT [facility] Blood Venipuncture / Unknown 10/16/2024 8:42 PM CDT 10/16/2024 8:54 PM CDT Je Garnett MD CHEMISTRY ORDERAB LES Final Result Performing Organization Address [facility] Co de Phone Number [facility] CLIA # [id number] [address] [address] [place] [address] * PTT (10/16/2024 8:42 PM CDT) PTT 27.6 24.8 - 37.2 seconds 10/16/2024 9:37 PM CDT [facility] Blood Venipuncture / Unknown 10/16/2024 8:42 PM CDT 10/16/2024 8:54 PM CDT Narrative [facility] - 10/16/2024 9:37 PM CDT Therapeutic Range: Hi-level PE/DVT heparin protocol 80.1 - 95.0 sec Lo-level PE/DVT heparin protocol 70.1 - 85.0 sec Cardiac Heparin Protocol 70.1 - 100.0 sec Je Garnett MD HEMATOLOGY ORDERA BLES Final Result Performing Organization Address [facility] Co de Phone Number [facility] CLIA # [id number] [address] [address] * (ABNORMAL) PROTIME-INR (10/16/2024 8:42 PM CDT) PROTIME 15.9(H) 12.7 - 14.9 Seconds 10/16/2024 9:37 PM CDT [facility] INR 1.2 0.8 - 1.2 10/16/2024 9:37 PM CDT [facility] Blood Venipuncture / Unknown 10/16/2024 8:42 PM CDT 10/16/2024 8:54 PM CDT [facility] - 10/16/2024 9:37 PM CDT Expected Values for INR: DVT/PE Goal INR 2.5; range 2.0 - 3.0 Valve Replacement Tissue Goal INR 2.5; range 2.0 - 3.0 Valve Replacement Mechanical Goal INR 3.0; range 2.5 - 3.5 POST-ND Goal INR 2.5; range 2.0 - 3.0 or Goal INR 3.0; range 2.5 - 3.5 Atrial Fibrillation Goal INR 2.5; range 2.0 - 3.0 Ischemic Stroke Goal INR 2.5; range 2.0 - 3.0 us Je Garnett MD HEMATOLOGY ORDERA BLES Final Result [facility] CLIA # [id number] [address] [place] [address] * (ABNORMAL) CBC WITH DIFFERENTIAL (10/16/2024 8:42 PM CDT) Pathologist [facility] WBC 15.5(H) 4.8 - 10.8 K/uL 10/16/2024 9:12 PM CDT [facility] RBC 3.07(L) 4.20 - 5.40 M/uL 10/16/2024 9:12 PM CDT [facility] HEMOGLOBIN 8.4(L) 12.0 - 16.0 g/dL 10/16/2024 9:12 PM CDT [facility] HEMATOCRIT 25.2(L) 36.0 - 46.0 % 10/16/2024 9:12 PM CDT [facility] MCV 82.1(L) 84.0 - 103.0 fL 10/16/2024 9:12 PM [facility] MCH 27.4 27.0 - 34.0 pg 10/16/2024 9:12 PM [facility] MCHC 33.3 30.0 - 35.0 g/dL 10/16/2024 9:12 PM [facility] PLATELETS 309 140 - 440 K/uL 10/16/2024 9:12 PM [facility] MPV 11.4 8.9 - 12.8 fL 10/16/2024 9:12 PM [facility] RDW 17.1(H) 11.0 - 14.5 % 10/16/2024 9:12 PM [facility] RDW-STDEV 51.2 37.0 - 54.0 fL 10/16/2024 9:12 PM [facility] NEUTROPHILS 61 42 - 75 % 10/16/2024 9:12 PM [facility] LYMPHOCYTES 22(L) 24 - 44 % 10/16/2024 9:12 PM [facility] MONOCYTES 16(H) 2 - 10 % 10/16/2024 9:12 PM [facility] EOSINOPHILS 0 0 - 7 % 10/16/2024 9:12 PM [facility] BASOPHILS 0 0 - 1 % 10/16/2024 9:12 PM [facility] IMMATURE GRANULOCYTES 1 0 - 2 % 10/16/2024 9:12 PM [facility] NEUTROPHIL ABSOLUTE 9.48(H) 2.00 - 8.00 K/uL 10/16/2024 9:12 PM [facility] LYMPHOCYTE ABSOLUTE 3.45 1.20 - 4.00 K/uL 10/16/2024 9:12 PM [facility] MONOCYTE ABSOLUTE 2.44(H) 0.10 - 0.60 K/uL 10/16/2024 9:12 PM [facility] EOSINOPHIL ABSOLUTE 0.01 0.00 - 0.70 K/uL 10/16/2024 9:12 PM CDT [facility] BASOPHILS ABSOLUTE 0.06 0.00 - 0.20 K/uL 10/16/2024 9:12 PM CDT [facility] IMMATURE GRANULOCYTES ABSOLUTE 0.09 0.00 - 0.10 K/uL 10/16/2024 9:12 PM CDT [facility] SMEAR REVIEWED: NN - No Action Needed 10/16/2024 9:12 PM CDT [facility] Blood Venipuncture / Unknown 10/16/2024 8:42 PM CDT 10/16/2024 8:54 PM CDT Je Garnett MD HEMATOLOGY ORDERA BLES Final Result Performing Organization Address City/[facility]/ZIP Co de Phone Number [facility] CLIA # [id number] [address] [place] [address] * PREPARE RED BLOOD CELLS (10/16/2024 8:29 PM CDT) Pathologist [facility] COMPONENT TYPE [id number] [facility] [place] COMPONENT IDENTIFICATION [id number] [facility] [place] UNIT ABO O [facility] [place] [facility] RH NEG [facility] [place] CROSSMATCH Compatible [facility] [place] COMPONENT STATUS Returned [facility] [place] COMPONENT EXPIRATION DATE/TIME [phone] [facility] [place] COMPONENT CODING SYSTEM 9500 [facility] [place] VOLUME, BLOOD PRODUCT 350 [facility] [place] 10/16/2024 8:29 PM CDT Je Garnett MD LAB TRANSFUSION O RDERABLES Edited Result - Final [facility] [place] CLIA#[id number] [address] [place] [address], * PREPARE RED BLOOD CELLS (10/16/2024 8:29 PM CDT) COMPONENT TYPE [id number] [facility] [place] COMPONENT IDENTIFICATION [id number] [facility] [place] UN[facility] ABO O [facility] [place] [facility] RH NEG [facility] [place] CROSSMATCH Compatible [facility] [place] COMPONENT STATUS Transfused ME Y [facility] -- [place] COMPONENT EXPIRATION DATE/TIME [phone] [facility] [place] COMPONENT CODING SYSTEM 9500 [facility] [place] VOLUME, BLOOD PRODUCT 350 [facility] [place] 10/16/2024 8:29 PM CDT Je Garnett MD LAB TRANSFUSION O RDERABLES Edited Result - Final [facility] [place] CLIA#[id number] [facility] [place] [address], * PREPARE RED BLOOD CELLS (10/16/2024 8:29 PM CDT) COMPONENT TYPE [id number] [facility] [place] COMPONENT IDENTIFICATION [id number] [facility] [place] UNIT ABO O [facility] [place] [facility] RH NEG [facility] [place] CROSSMATCH Compatible [facility] [place] COMPONENT STATUS Returned [facility] -- [place] COMPONENT EXPIRATION DATE/TIME [id number] [facility] [place] COMPONENT CODING SYSTEM 9500 [facility] [place] VOLUME, BLOOD PRODUCT 350 [facility] [place] 10/16/2024 8:29 PM CDT Je Garnett MD LAB TRANSFUSION O RDERABLES Edited Result - Final [facility] [place] CLIA#[id number] [address] [place] [address], * PREPARE RED BLOOD CELLS (10/16/2024 8:29 PM CDT) COMPONENT TYPE [id number] [facility] [place] COMPONENT IDENTIFICATION [id number] [facility] [place] UN[facility] ABO O [facility] [place] [facility] RH NEG [facility] [place] CROSSMATCH Compatible [facility] [place] COMPONENT STATUS Returned [facility] [place] COMPONENT EXPIRATION DATE/TIME [phone] [facility] [place] COMPONENT CODING SYSTEM 9500 [facility] [place] VOLUME, BLOOD PRODUCT 350 [facility] [place] Other, specify 10/16/2024 8: 29 PM CDT us Je Garnett MD LAB TRANSFUSION O RDERABLES Edited Result - Final [facility] [place] CLIA#[id number] [address] [place] [address], * EKG 12-LEAD (10/16/2024 8:23 PM CDT) 10/16/2024 8:23 PM CDT Narrative INTERFACE SYSTEM - 10/17/2024 6:50 [place] [address] Test Date: 2024-10-16 Pat Name: VIRY QUACH Department: 11 Room: 21 21 Gender: Female Tube Draw Helper: [id number] : 1965 Requested By: Order Number: [id number] Erasto MD: Chan Sanchez Measurements Intervals Brooks Rate: 99 P: 62 CT: 142 QRS: 87 QRSD: 78 T: 77 QT: 334 QTc: 428 Interpretive Statements Normal sinus rhythm Cannot rule out Inferior infarct, age undetermined Abnormal ECG Electronically Signed On 10-17-2024 6:50:50 CDT by Chan Sanchez Procedure Note Chan Sanchez MD - 10/17/2024 [facility] [address] [place] [address] Test Date: 2024-10-16 Pat Name: VIRY QUACH Department: 11 Room: [facility] Gender: Female Tube Draw Helper: [id number] : 1965 Requested By: Order Number: [id number] Reading MD: Chan Sanchez Measurements Intervals Brooks Rate: 99 P: 62 CT: 142 QRS: 87 QRSD: 78 T: 77 [...] or life-threatening deterioration of the following conditions: RIGGING LOFT MECHANIC failure or compromise, 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 [...] RN)2025 (Given - Provider: Trixie Melissa RN) 0257 (Given - Provider: Trixie Melissa RN)0959 (Given - Provider: Kaylen Tellez RN)1555 (Feeding Started - Provider: Kaylen Tellez RN)204 (Given - Provider: Trixie Melissa [...] documented as of this encounter Care Teams 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
[2024-10-29 15:51] VITALS: BP 107/67; PULSE 89; TEMP 36.9; O2SAT 94
--- OUTSIDE RECORDS SUMMARY | 2024-10-29 15:53 | XMS_ITS | Encounter Summary ---
Author Organization [facility] Address 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 [phone] PCP - General Family Practice 10/24/24 documented as of this encounter
--- OUTSIDE RECORDS SUMMARY | 2024-10-29 15:53 | XMS_ITS | Encounter Summary ---
Author Organization [facility] Address 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 Gender Identity Not on file Sexual Orientation Not on file documented as of this encounter Plan of Treatment Upcoming Encounters Date Type Department Care Team (Late Contact Info) Description 12/07/2024 7:30 AM CDT Office Visit [facility] [place] [facility] [address] [place] [address] Melquiades Ken FNP [address] [facility] [address] [place] [address] documented as of this encounter Visit Diagnoses Not on filedocumented in this encounter Additional Health Concerns Infection Onset Date Last Indicated Resolved Time C Diff 10/07/2024 10/07/2024 documented as of this encounter Care Teams Pricing Director Relationship Specialty Start Date End Date Aguila Castro MD [address] [phone] PCP - General Family Practice 05/26/21 10/23/24 documented as of this encounter
--- OUTSIDE RECORDS SUMMARY | 2024-10-29 15:53 | XMS_ITS | Encounter Summary ---
Author Organization [facility] Address [address] [place] [address] Care Team Providers Care Picker / Packer Name Role Phone Unavailable Primary Care Provider Unavailabl e Encounter Details Date Type Department Care Team (Latest Contact Info) Description 02/10/2006 Outpatient Historical [facility] Orthoped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
--- OUTSIDE RECORDS SUMMARY | 2024-10-29 15:53 | XMS_ITS | Encounter Summary ---
Author Organization [facility] Address [address] [place] [address] Care Team Providers Care Trapper Bird Name Role Phone Unavailable Primary Care Provider Unavailabl e Encounter Details Date Type Department Care Team (Latest Contact Info) Description 05/26/2006 Outpatient Historical [facility] Orthopedics- 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
--- OUTSIDE RECORDS SUMMARY | 2024-10-29 15:53 | XMS_ITS | Clinical Summary ---
Author Organization [facility] tone Address [address] [place] [address] Care Team Providers Care Dynamite Cartridge Crimper Name Role Phone Tawnya Lane Primary Care Provider [phone] Allergies Active Allergy Reactions Criticality Noted Date [...] for Nausea. 02/02/20 23 Active IRON PS [id number] IC ACID ORAL Take by mouth. Ac [...] Department Care Team Description 5 Orders Only [facility] [address] [place] [phone] Provider, Abstract 5 Abstract [facility] [address] [place] [phone] Provider, Abstract 5 Telephone [facility] Gen Spec Surg [place] [address] [facility] [facility] [address] [place] [address] Crescencio Aguero MD Question 5 External Device Data STL ABSTRACTION Provider, Abstract 5 12:04 PM CDT Anesthesia Event [facility] Operating Room [address] [place] [phone] Oliver Reid MD Brant, Jonathan Casey, LUCA 5 12:00 PM CDT - 5 1:14 PM CDT Surgery [facility] Operating Room [address] [place] [address] Crescencio Aguero MD HEMORRHOIDECTOMY 5 Results Follow-Up [facility] [place] [address] [place] [address] Julianne David, DO PATHOLOGY 5 12:06 PM CDT Anesthesia Event [facility] Endoscopy [address] [place] [address] Chan Anderson MD 5 11:00 AM CDT - 5 11:20 AM CDT [facility] [address] [place] [address] Julianne David, DO COLONOSCOPY 5 External Device Data STL ABSTRACTION Provider, Abstract 5 7:49 PM CDT - 5 1:20 PM CDT Hospital Encounter [facility] Medical Telemetry [address] [place] [phone] Je Garnett MD Saeed, Mariam, MD Lohia, MD Antonio Evans III, Jeb ODO Rojas, MD Ramirez Keita, MD Jaden Lower GI hemorrhage Discharge Disposition: Home or Self Care 5 7:00 AM CDT - 5 7:20 AM CDT [facility] [address] [place] [phone] Mayo Taylor MD ESOPHAGOGASTRODUODENOSCOPY 5 External Device Data STL ABSTRACTION Provider, Abstract 5 External Device Data STL ABSTRACTION Provider, Abstract 5 8:38 AM CDT - 5 1:27 PM CDT Emergency [facility] Emergency Department [address] [place] [phone] Colt Tavera MD Cirrhosis of liver with ascites, unspecified hepatic cirrhosis type (CMS/HCC) (Primary Dx); Abdominal distention; Gastritis without bleeding, unspecified chronicity, unspecified gastritis type Discharge Disposition: Home or Self Care 5 Results Follow-Up [facility] Emergency Department [address] [place] [phone] Blanca Harris RN CELL COUNT WITH DIFFERENTIAL, BODY FLUID, LACTATE DEHYDROGENASE, BODY FLUID, PROTEIN, BODY FLUID, Additional followed-up results: 3 5 Travel 5 External Device Data STL ABSTRACTION Provider, Abstract 5 External Device Data STL ABSTRACTION Provider, Abstract 5 Orders Only [facility] [address] [place] [phone] Provider, Abstract 5 Abstract [facility] [address] [place] [phone] Provider, Abstract 5 9:52 AM CDT Anesthesia Event [facility] Endoscopy [address] [place] [phone] Rolando Sierra MD Le, Oliver [place], AA 5 9:20 AM CDT - 5 9:40 AM CDT Surgery [facility] Endoscopy [address] [place] [phone] Carmine Dubois MD ESOPHAGOGASTRODUODENOSCOPY 5 7:54 PM CDT - 5 3:59 PM CDT Hospital Encounter [facility] 3B Surgical [address] [place] [phone] Mohit Gomez MD Brooks, Cynthia J, DO Suthar, Chandan Mal, MD Gastrointestinal hemorrhage Discharge Disposition: Home or Self Care 5 8:20 AM CDT - 5 8:40 AM CDT Surgery [facility] Endoscopy [address] [place] [phone] Jayla, Christopher D, DO ESOPHAGOGASTRODUODENOSCOPY 5 8:03 AM CDT Anesthesia Event [facility] Endoscopy [address] [place] [address] Mayo Roa, 5 7:15 AM CDT - 5 9:15 AM CDT Hospital Encounter [facility] Endoscopy [address] [place] [address] Carmine Dickerson, DO Discharge Disposition: Home or Self Care 5 External Device Data STL ABSTRACTION Provider, Abstract 5 External Device Data STL ABSTRACTION Provider, Abstract 5 Telephone [facility] [address] [phone] Gera Resendez, DO Documentation Only 5 External Device Data STL ABSTRACTION Provider, Abstract 5 External Device Data STL ABSTRACTION Provider, Abstract 5 [facility] [address] [phone] Gera Resendez, DO Documentation Only [address] [phone] Gera Resendez, DO Documentation 5 11:30 AM CDT Office Visit [address] [address] Gera Resendez, DO Cirrhosis of liver without [...] on file 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 Gender Identity Not on file Sexual [...] Description 12/07/2024 7:30 AM CDT Office Visit [facility] [place] [address] [address] [place] [address] Melquiades Ken FNP [address] [facility] [address] [place] [address] Health Maintenance Due Date Last [...] Screening 10/18/2031 Medical Devices Implanted Type Area [employer] Device Identifier Shelf Expiration Date Model / Serial / Lot Hemostatic Surgicel 1x2in 1961 - [id number] Implanted:Qty: 1 on 10/19/2024 by Crescencio Aguero MD at [facility] Hemostatic N/A: Rectum [employer] [id number] 01/20/20261960 / / [id number] Explanted Type Area [employer]ice [employer] Device Identifier Shelf Expiration Date Model / Serial / Lot 6.5 Cannulated Screw Explanted:Qty: 1 on 05/27/2021 at [facility] Right: Tibia 6.5 Cannulated Screw Explanted:Qty: 1 on 05/27/2021 at [facility] Right: Tibia 6.5 Cannulated Screw Explanted:Qty: 1 on 05/27/2021 at [facility] Right: Tibia 13mm Washer Explanted:Qty: 1 on 05/27/2021 at [facility] Right: Tibia Procedures Procedure Name Priority Date/Time [...] CDT PATHOLOGY Pathology 10/19/2024 12:41 PM CDT [place] ANES INSERT ENDOTRACHEAL AIRWAY Routine 10/19/2024 12:20 [...] CDT UPPER ENDOSCOPY REPORT 8:36 AM CDT [place] COLONOSCOPY FLX DX W/MIRIAM J SPEC WHEN PFRMD 10/03/2024 8:20 AM CDT Melena Case Notes Procedure :DBL Special Notes: Trazodone,Hydrocodone,Varices Dx: Melena BT:NONE BT managed by: Diabetic: NO Diabetic/WT med:NONE LOC & REASON:Hosp-Medical BMI: 22.45 Last Procedure date & location: EGD,05/15,Hosp Referring Provider: Tawnya Lane DO GI Doc:Dr Carmine Dickerson Insurance: [employer] Medicare/Medicaid Last GI appt 08/28/24 [place] ESOPHAGOGASTRODUODENOSCOP Y TRANSORAL DIAGNOSTIC 10/03/2024 8:20 AM [...] needle course. Insertion of a 10-cm 5 Emirati Pebble centesis catheter, through which approximately 2200 ml [...] needle course. Insertion of a 10-cm 5 Emirati Arcarioseh centesis catheter, through which approximately 2200 ml [...] of16 resultswithin the time period is included. Pathologist [facility] HEMOGLOBIN 8.1(L) 12.0 - 16.0 g/dL 10/23/2024 9:34 AM CDT [facility] HEMATOCRIT 25.5(L) 36.0 - 46.0 % 10/23/2024 9:34 AM CDT [facility] Blood Venipuncture / Unknown 10/23/2024 9:24 AM CDT 10/23/2024 9:28 AM CDT Crescencio Aguero MD HEMATOLOGY ORDERABLES Final Res ult [facility] CLIA # [id number] [address] [place] [address] * (ABNORMAL) CBC WITH DIFFERENTIAL (10/23/2024 4:55 AM CDT) Only the most recent of10 resultswithin the time period is included. Pathologist [facility] WBC 6.2 4.8 - 10.8 K/uL 10/23/2024 5:51 AM CDT [facility] NRBCS 3(H) <1 % 10/23/2024 5:51 AM CDT [facility] RBC 2.79(L) 4.20 - 5.40 M/uL 10/23/2024 5:51 AM CDT [facility] HEMOGLOBIN 7.7(L) 12.0 - 16.0 g/dL 10/23/2024 5:51 AM [facility] [employer] [facility] HEMATOCRIT 24.1(L) 36.0 - 46.0 % 10/23/2024 5:51 AM [facility] [employer] [facility] MCV 86.4 84.0 - 103.0 fL 10/23/2024 5:51 AM [facility] [employer] [facility] MCH 27.6 27.0 - 34.0 pg 10/23/2024 5:51 AM [facility] [employer] [facility] MCHC 32.0 30.0 - 35.0 g/dL 10/23/2024 5:51 AM [facility] [employer] [facility] PLATELETS 241 140 - 440 K/uL 10/23/2024 5:51 AM [facility] MPV 11.1 8.9 - 12.8 fL 10/23/2024 5:51 AM [facility] RDW 17.2(H) 11.0 - 14.5 % 10/23/2024 5:51 AM [facility] RDW-STDEV 53.6 37.0 - 54.0 fL 10/23/2024 5:51 AM [facility] [employer] [facility] NEUTROPHILS 70 42 - 75 % 10/23/2024 5:51 AM [facility] LYMPHOCYTES 12(L) 24 - 44 % 10/23/2024 5:51 AM [facility] [employer] [facility] MONOCYTES 17(H) 2 - 10 % 10/23/2024 5:51 AM [facility] [employer] [facility] EOSINOPHILS 1 0 - 7 % 10/23/2024 5:51 AM [facility] [employer] [facility] BASOPHILS 0 0 - 1 % 10/23/2024 5:51 AM [facility] IMMATURE GRANULOCYTES 1 0 - 2 % 10/23/2024 5:51 AM [facility] NEUTROPHIL ABSOLUTE 4.34 2.00 - 8.00 K/uL 10/23/2024 5:51 AM [facility] LYMPHOCYTE ABSOLUTE 0.75(L) 1.20 - 4.00 K/uL 10/23/2024 5:51 AM CDT [facility] MONOCYTE ABSOLUTE 1.04(H) 0.10 - 0.60 K/uL 10/23/2024 5:51 AM CDT [facility] EOSINOPHIL ABSOLUTE 0.05 0.00 - 0.70 K/uL 10/23/2024 5:51 AM CDT [facility] BASOPHILS ABSOLUTE 0.02 0.00 - 0.20 K/uL 10/23/2024 5:51 AM CDT [facility] IMMATURE GRANULOCYTES ABSOLUTE 0.03 0.00 - 0.10 K/uL 10/23/2024 5:51 AM CDT [facility] SMEAR REVIEWED: NN - No Action Needed 10/23/2024 5:51 AM [facility] Blood Venipuncture / Unknown 10/23/2024 4:55 AM CDT 10/23/2024 5:42 AM CDT us Crescencio Aguero MD HEMATOLOGY ORDERABLES Final Res ult [facility] CLIA # [id number] [address] [place] [address] * (ABNORMAL) COMPREHENSIVE METABOLIC PANEL (10/23/2024 4:55 AM CDT) Only the most recent of11 resultswithin the time period is included. SODIUM 135(L) 136 - 145 mmol/L 10/23/2024 6:27 AM T [facility] POTASSIUM 3.9 3.5 - 5.1 mmol/L 10/23/2024 6:27 AM [facility] CHLORIDE 103 98 - 107 mmol/L 10/23/2024 6:27 AM T [facility] CO2 22 22 - 29 mmol/L 10/23/2024 6:27 AM T [facility] CALCIUM 8.0(L) 8.8 - 10.2 mg/dL 10/23/2024 6:27 AM T [facility] BUN 8 8 - 23 mg/dL 10/23/2024 6:27 AM [facility] CREATININE 0.71 0.51 - 0.95 mg/dL 10/23/2024 6:27 AM [facility] GLUCOSE 103(H) 74 - 99 mg/dL 10/23/2024 6:27 AM [facility] TOTAL PROTEIN 5.1(L) 6.4 - 8.3 g/dL 10/23/2024 6:27 AM [facility] ALBUMIN 3.0(L) 3.5 - 5.2 g/dL 10/23/2024 6:27 AM [facility] BILIRUBIN TOTAL 0.4 0.0 - 1.0 mg/dL 10/23/2024 6:27 AM [facility] ALKALINE PHOSPHATASE 82 35 - 104 U/L 10/23/2024 6:27 AM [facility] AST 24 10 - 35 U/L 10/23/2024 6:27 AM [facility] ALT 18 <=35 U/L 10/23/2024 6:27 AM [facility] GFR >60 >=60 mL/min/1.7 3 sq meter 10/23/2024 6:27 AM [facility] Comment:eGFR calculated with 2020 CKD-EPI equation. Vegetarian diet, extremely high or low muscle mass, and may affect results. Cystatin C with Glomerular Filtration Rate is a suitable alternative for these patients. ANION GAP 10 9 - 20 mmol/L 10/23/2024 6:27 AM [facility] Blood Venipuncture / Unknown 10/23/2024 4:55 AM CDT 10/23/2024 5:54 AM T us Jaden Guzmán MD CHEMISTRY ORDERABLES Final Resul t [facility] CLIA # [id number] [address] [address] [place] [address] * POC GLUCOSE (10/22/2024 12:49 PM CDT) Only the most recent of10 resultswithin the time period is included. GLUCOSE POC 93 74 - 99 mg/dL 10/22/2024 12:49 PM CDT [facility] SPECIMEN SOURCE, GLUCOSE POC Capillary 10/22/2024 12:49 PM CDT [facility] Blood, whole 10/22/2024 12:4 9 PM CDT 10/22/2024 1:02 PM CDT Jaden Guzmán MD POINT OF CARE TESTING Final Resu lt [facility] CLIA # [id number] [address] [address] * TRANSFUSE RED BLOOD CELLS (10/19/2024 1:19 PM CDT) Only the most recent of2 resultswithin the time period is included. Jaden Guzmán MD BLOOD TRANSFUSION ORDERABLES Fin al Result * PATHOLOGY (10/19/2024 12:41 PM CDT) Only the most recent of3 resultswithin the time period is included. CASE REPORT Surgical Pathology Report Case: [id number] Authorizing Provider: Crescencio Aguero MD Collected: 10/19/2024 12:41 PM Ordering Location: [facility] Received: 10/19/2024 01:44 PM Operating Room Pathologist: Murray Fernández MD Specimen: Hemorrhoids 3:38 PM CDT [facility] FINAL DIAGNOSIS A. Hemorrhoids, excision - Hemorrhoids - Negative for dysplasia or malignancy Murray Fernández MD [id number] 3:38 PM CDT [facility] at 1538 CDT GROSS DESCRIPTION A. Received in a container of formalin labeled Main -hemorrhoids are 3 lopez-topete, wrinkled skin fragments, that range from 1.5 to 2.3 cm in greatest dimension. Sectioning reveals hemorrhagic, mildly edematous cut surfaces. No discrete masses or lesions are grossly identified. Direct Sales Representative sections are submitted in A1. Grossed by: Kita Hobbs MS, PA (ASCP)CM 3:38 PM CDT [facility] OPERATIVE PROCEDURE 1: HEMORRHOIDECTOMY 5 3:38 PM CDT [facility] COMMENT The brand e[employer] Ver[employer] voice-activated dictation system may have been used [...] determined by the Diagnostic Immunohistochemistry Laboratory of [facility] in compliance with CLIA'88 regulations. Some of these tests rely on the use of analyte specific reagents and are subject to specific labeling requirements by the FDA. All controls show appropriate reactivity. This testing was developed by the Diagnostic Immunohistochemistry Laboratory of [facility]. It has not been cleared or approved by the FDA. The FDA has determined that such clearance or approval is not necessary. 3:38 PM CDT [facility] Tissue (Hemorrhoids) Collection / Unknown 10/19/2024 12:41 PM CDT 10/19/2024 1:44 PM CDT us Crescencio Aguero MD PATHOLOGY/CYTOLOGY ORDERABLES F inal Result [facility] CLIA # [id number] [address] [place] [address] * [place] ANES INSERT ENDOTRACHEAL AIRWAY (10/19/2024 12:20 PM CDT) Narrative Deric Ha CRNA - 10/19/2024 12:20 PM CDT Deric Ha CRNA 10/19/2024 12:30 PM Airway Date/Time: 10/19/2024 12:20 PM Location: OR Plan: routine intubation Patient Identity Confirmed by: Verbally with patient and armband Staffing Performed: FURNITURE TECHNICIAN/CAA Authorized by: Oliver Reid MD Performed by: [...] of7 resultswithin the time period is included. Pathologist [facility] COMPONENT TYPE [id number] [facility] [place] COMPONENT IDENTIFICATION [id number] [facility] [place] UNIT ABO O [facility] [place] UNIT RH NEG [facility] [place] CROSSMATCH Compatible [facility] [place] COMPONENT STATUS Transfused [facility] [place] COMPONENT EXPIRATION DATE/TIME [id number] [facility] [place] COMPONENT CODING SYSTEM [address]00 [facility] [place] VOLUME, BLOOD PRODUCT 350 [facility] [place] 10/19/2024 6:29 AM CDT Andrey Tanner MD LAB TRANSFUSION ORDERAB LES Edited Result - Final Performing Organization Address [facility] de Phone Number [facility] CLIA#[id number] [address] [place] [address], * MAGNESIUM LEVEL (10/19/2024 5:52 AM CDT) Only the most recent of5 resultswithin the time period is included. Pathologist [facility] MAGNESIUM 2.2 1.6 - 2.4 mg/dL 10/19/2024 6:41 AM CDT [facility] Blood Venipuncture / Unknown 10/19/2024 5:52 AM CDT 10/19/2024 6:03 AM CDT Jeb Alvarez III, DO CHEMISTRY ORDERABLES Zaida l Result Performing Organization Address [facility] de Phone Number [facility] CLIA # [id number] [address] [address] * CELL COUNT WITH DIFFERENTIAL, BODY FLUID (10/18/2024 10:45 AM CDT) Only the most recent of2 resultswithin the time period is included. APPEARANCE, BODY FLUID Clear 10/18/2024 11:34 AM CDT [facility] COLOR, FLD Colorless 10/18/2024 11:34 AM CDT [facility] TOTAL NUCLEATED CELLS, FLD (AUTO) 81 No Ref Range Estab /ul 10/18/2024 11:34 AM CDT [facility] TOTAL RBC'S, FLD (AUTO) <3,000 No Ref Range Estab /ul 10/18/2024 11:34 AM CDT [facility] NEUTROPHILS, FLD 10 No Ref Range Estab % 10/18/2024 11:34 AM CDT [facility] LYMPHOCYTE, FLD 26 No Ref Range Estab % 10/18/2024 11:34 AM CDT [facility] MONOCYTE/MACROP HUI, FLD 62 No Ref Range Estab % 10/18/2024 11:34 AM CDT [facility] MESOTHELIAL FLD 3 No Ref Range Estab % 10/18/2024 11:34 AM CDT [facility] Body fluid ENTIRE SEROUS MEMBRANE OF PERITONEUM / Unknown Collection / Unknown 10/18/2024 10:45 AM CDT 10/18/2024 10:49 AM CDT us Jeb O Alvarez III, DO BODY FLUIDS AND STOOLS Fi nal Result Performing Organization Address [facility] Co de Phone Number [facility] CLIA # [id number] [address] [id number] * (ABNORMAL) C-REACTIVE PROTEIN (10/18/2024 7:13 AM CDT) CRP 10.6(H) 0.0 - 5.0 mg/L 10/18/2024 11:08 AM CDT [facility] Blood Venipuncture / Unknown 10/18/2024 7:13 AM CDT 10/18/2024 7:19 AM CDT us Jeb O Alvarez III, DO CHEMISTRY ORDERABLES Zaida l Result Performing Organization Address [facility] Co de Phone Number [facility] CLIA # [id number] [address] [address] * COLONOSCOPY REPORT (10/17/2024 12:29 PM CDT) Narrative Procedure Note Julianne David, - 10/17/2024 12:28 PM CDT [facility] GI Patient Name: Arlene Quach Procedure Date: [...] for recurrence of bleeding until tomorrow Julianne Agusto Milner DO 10/17/2024 12:28:48 PM This report has been signed electronically. Number of Addenda: 0 Note Initiated On: 10/17/2024 12:02 PM Scope Withdrawal Time 0 hours 7 minutes 15 seconds Scope In: 12:16:19 PM Scope Out: 12:25:42 PM Patient Profile: This is a 59 year old female. [address] [place] [address] Julianne Agusto Milner DO GI PROCEDURE ORDERABLE S Final Result * PHOSPHORUS (10/17/2024 5:56 AM CDT) Only the most recent of2 resultswithin the time period is included. Pathologist [facility] PHOSPHORUS 3.6 2.5 - 4.5 mg/dL 10/17/2024 7:44 AM CDT [facility] Blood Venipuncture / Unknown 10/17/2024 5:56 AM CDT 10/17/2024 6:05 AM CDT Jonathan Sampson MD CHEMISTRY ORDERABLES Final Resu lt [facility] CLIA # [id number] [address] [place] [address] * GI PATHOGEN PCR PANEL (10/17/2024 3:10 AM CDT) Only the most recent of3 resultswithin the time period is included. Pathologist [facility] GI Pathogen PCR panel NOT DETECTED No nucleic acids detected. 10/17/2024 4:45 AM CDT [facility] Stool STOOL SPECIMEN / Unknown Collection / Unknown 10/17/2024 3:10 AM CDT 10/17/2024 3:19 AM CDT Narrative [facility] - 10/17/2024 [...] Giardia duodenalis Je Garnett MD MICROBIOLOGY - [facility] ORDERABLES Final Result [id number] [address] [place] [address] * HELICOBACTER PYLORI ANTIGEN, STOOL (10/17/2024 3:10 AM CDT) H. PYLORI AG, STOOL SEE COMMENT 10/19/2024 12:37 PM CDT [facility] Comment: HELICOBACTER PYLORI AG, EIA, STOOL Micro Number: [id number] Test Status: Final Specimen Source: Stool Specimen [...] 3:19 AM CDT Narrative [facility] - 10/19/2024 12:37 PM CDT Performing Organization Information: Site ID: Name: [facility] Address: [address] [address] Director: Kiko Grimes us Mayo Taylor MD BODY FLUIDS AND STOOLS Fi nal Result [facility] * UPPER ENDOSCOPY REPORT (10/16/2024 11:13 PM CDT) Narrative Procedure Note Mayo Taylor MD - 10/16/2024 11:12 PM CDT [facility] GI Patient Name: Arlene Quach Procedure Date: [...] Withdrawal Time Scope In: Scope Out: [address] [place], [place] us Mayo Taylor MD GI PROCEDURE ORDERABLES F inal Result * LACTIC ACID (10/16/2024 8:42 PM CDT) Only the most recent of2 resultswithin the time period is included. LACTIC ACID 1.6 <=2.0 mmol/L 10/16/2024 9:57 PM CDT [facility] Blood BLOOD SPECIMEN / Unknown Venipuncture / Unknown 10/16/2024 8:42 PM CDT 10/16/2024 8:52 PM CDT us Je Garnett MD CHEMISTRY ORDERAB LES Final Result [facility] CLIA # [id number] [address] [facility] [place] [address] * PTT (10/16/2024 8:42 PM CDT) Only the most recent of3 resultswithin the time period is included. PTT 27.6 24.8 - 37.2 seconds 10/16/2024 9:37 PM CDT [facility] Blood Venipuncture / Unknown 10/16/2024 8:42 PM CDT 10/16/2024 8:54 PM CDT Narrative [facility] - 10/16/2024 9:37 PM CDT Therapeutic Range: Hi-level PE/DVT heparin protocol 80.1 - 95.0 sec Lo-level PE/DVT heparin protocol 70.1 - 85.0 sec Cardiac Heparin Protocol 70.1 - 100.0 sec us Je Garnett MD HEMATOLOGY ORDERA BLES Final Result Performing Organization Address City/[facility]/ZIP Co de Phone Number [facility] CLIA # [id number] [address] [place] [address] * (ABNORMAL) PROTIME-INR (10/16/2024 8:42 PM CDT) Only the most recent of5 resultswithin the time period is included. PROTIME 15.9(H) 12.7 - 14.9 Seconds 10/16/2024 9:37 PM CDT [facility] INR 1.2 0.8 - 1.2 10/16/2024 9:37 PM CDT [facility] Blood Venipuncture / Unknown 10/16/2024 8:42 PM CDT 10/16/2024 8:54 PM CDT Narrative [facility] - 10/16/2024 9:37 PM CDT Expected Values for INR: DVT/PE Goal INR 2.5; range 2.0 - 3.0 Valve Replacement Tissue Goal INR 2.5; range 2.0 - 3.0 Valve Replacement Mechanical Goal INR 3.0; range 2.5 - 3.5 POST-IN Goal INR 2.5; range 2.0 - 3.0 or Goal INR 3.0; range 2.5 - 3.5 Atrial Fibrillation Goal INR 2.5; range 2.0 - 3.0 Ischemic Stroke Goal INR 2.5; range 2.0 - 3.0 us Je Garnett MD HEMATOLOGY ORDERA BLES Final Result Performing Organization Address [facility]/ZIP Co de Phone Number [facility] CLIA # [id number] [address] [place] [address] * TYPE AND SCREEN (10/16/2024 8:42 PM CDT) Only the most recent of2 resultswithin the time period is included. ABO GROUP O 10/16/2024 9:37 PM CDT [facility] RH (D) TYPE Negative 10/16/2024 9:37 PM CDT [facility] ANTIBODY SCREEN Negative 10/16/2024 9:37 PM CDT [facility] Blood Venipuncture / Unknown 10/16/2024 8:42 PM CDT 10/16/2024 8:51 PM CDT us Je Garnett MD BLOOD BANK ORDERA BLES Edited Result - Final [facility] CLIA#[id number] [address] [place] [address], * EKG 12-LEAD (10/16/2024 8:23 PM CDT) Only the most recent of2 resultswithin the time period is included. 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: [email or web address] : 1965 Requested By: Order Number: [id number] Reading MD: Chan Sanchez Measurements Intervals [place] Rate: 99 P: 62 [place]: 142 QRS: 87 QRSD: 78 T: 77 QT: 334 QTc: 428 Interpretive Statements Normal sinus rhythm Cannot rule out Inferior infarct, age undetermined Abnormal ECG Electronically Signed On 10-17-2024 6:50:50 CDT by Chan Sanchez Procedure Note Chan Sanchez MD - 10/17/2024 [facility] [address] [place] [address] Test Date: 2024-10-16 Pat Name: ARLENE QUACH Department: 11 Room: 21 21 Gender: Female Call Center Dispatcher: [id number] : 1965 Requested By: Order Number: [id number] Reading MD: Chan Sanchez Measurements Intervals [place] Rate: 99 P: 62 [place]: 142 QRS: 87 QRSD: 78 T: 77 [...] or life-threatening deterioration of the following conditions: DITCH WORKER failure or compromise, 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 [...] and performing treatments and interventions us Je Granett MD PROCEDURE/MINOR S URGICAL ORDERABLES Final Result * PROTEIN, BODY FLUID (10/13/2024 12:51 PM CDT) PROTEIN, FLD 0.9 g/dL 10/13/2024 2:14 PM CDT [facility] Body fluid ENTIRE SEROUS MEMBRANE OF PERITONEUM / Unknown Collection / Unknown 10/13/2024 12:51 PM CDT 10/13/2024 1:17 PM CDT [facility] - 10/13/2024 2:14 PM CDT Interpretive Criteria: Transudate: <2.0 g/dL Exudate: >2.0 g/dL The reference range and other method performance specifications are unavailable for this body fluid. Comparison of this result with the concentration in the blood, serum, or plasma is recommended. Colt Tavera MD BODY FLUIDS AND STOOLS Final Result Performing Organization Address [facility] Co de Phone Number [facility] CLIA # [id number] [address] [address] * LACTATE DEHYDROGENASE, BODY FLUID (10/13/2024 12:51 PM CDT) LD, FLD 36 U/L 10/13/2024 2:05 PM CDT [facility] Body fluid ENTIRE SEROUS MEMBRANE OF PERITONEUM / Unknown Collection / Unknown 10/13/2024 12:51 PM CDT 10/13/2024 1:17 PM CDT [facility] - 10/13/2024 2:05 PM CDT Interpretive [...] AND STOOLS Final Result Performing Organization Address [facility]/ZIP Co de Phone Number [facility] CLIA # [id number] [address] [place] [address] * GLUCOSE, BODY FLUID (10/13/2024 12:51 PM CDT) GLUCOSE, FLD 107 mg/dL 10/13/2024 2:05 PM CDT [facility] Body fluid ENTIRE SEROUS MEMBRANE OF PERITONEUM / Unknown Collection / Unknown 10/13/2024 12:51 PM CDT 10/13/2024 1:17 PM CDT [facility] - 10/13/2024 2:05 PM CDT Interpretive Criteria: Transudate: Fluid/Serum Ratio >0.5 Exudate: Fluid/Serum Ratio <0.5 or Fluid Glucose <60 mg/dL The reference range and other method performance specifications are unavailable for this body fluid. Comparison of this result with the concentration in the blood, serum or plasma is recommended. Colt Tavera MD BODY FLUIDS AND STOOLS Final Result [facility] CLIA # [id number] [address] [place] [address] * ALBUMIN LEVEL, BODY FLUID (10/13/2024 12:51 PM CDT) ALBUMIN, FLD 0.8 g/dL 10/13/2024 2:14 PM CDT [facility] Body fluid ENTIRE SEROUS MEMBRANE OF PERITONEUM / Unknown Collection / Unknown 10/13/2024 12:51 PM CDT 10/13/2024 1:17 PM CDT [facility] - 10/13/2024 2:14 PM CDT Interpretive Criteria: Transudate: Serum-Ascites gradient >1.1 g/dL Exudate: Serum-Ascites gradient <1.1 g/dL The reference range and other method performance specifications are unavailable for this body fluid. Comparison of this result with the concentration in the blood, serum or plasma is recommended. Colt Tavera MD BODY FLUIDS AND STOOLS Final Result [facility] CLIA # [id number] [address] [place] [address] * CYTOLOGY, NON GYNE (10/13/2024 12:51 PM CDT) CASE REPORT Medical Cytology Report Case: [id number] Authorizing Provider: Colt Tavera, Collected: 10/13/2024 12:51 PM Ordering Location: [facility] Received: 10/15/2024 08:00 AM Emergency Department Pathologist: Tamia Wolff MD Specimen: Peritoneal (ascitic) fluid 1:37 PM CDT [facility] FINAL DIAGNOSIS A. Peritoneal fluid, ThinPrep and cell block - No malignant cells identified - Mesothelial cells, histiocytes, and small lymphocytes present Tamia Wolff MD [id number] 1:37 PM CDT [facility] at 1337 CDT GROSS DESCRIPTION A. Peritoneal (ascitic) fluid - 110 ml yellow fluid processed for ThinPrep and cell block A2. 1:37 PM CDT [facility] CLINICAL INFORMATION No Dx found. 1:37 PM CDT [facility] COMMENT The brand [employer] voice-activated dictation system may have been used [...] determined by the Diagnostic Immunohistochemistry Laboratory of [facility] in compliance with CLIA'88 regulations. Some of these tests rely on the use of analyte specific reagents and are subject to specific labeling requirements by the FDA. All controls show appropriate reactivity. This testing was developed by the Diagnostic Immunohistochemistry Laboratory of [facility]. It has not been cleared or approved by the FDA. The FDA has determined that such clearance or approval is not necessary. 1:37 PM CDT [facility] Body fluid ASCITIC FLUID SPECIMEN / Unknown Collection / Unknown 10/13/2024 12:51 PM CDT 10/15/2024 8:00 AM CDT us Colt Tavera MD PATHOLOGY/CYTOLOGY ORD ERABLES Final Result [facility] CLIA # [id number] Counts include 234 beds at the [facility] [address] * CT ABDOMEN PELVIS W CONTRAST (10/13/2024 [...] - 60 U/L 10/13/2024 9:47 AM CDT [facility] Blood Venipuncture / Unknown 10/13/2024 9:09 AM CDT 10/13/2024 9:13 AM CDT us Colt Tavera MD CHEMISTRY ORDERABLES F inal Result [facility] # [id number] Counts include 234 beds at the [facility] [address] [place] [address] * UPPER ENDOSCOPY REPORT (10/08/2024 10:02 AM CDT) Narrative Procedure Note Carmine Dubois MD - 10/08/2024 10:02 AM CDT [facility] GI Patient Name: Arlene Quach Procedure Date: [...] Time Scope In: Scope Out: [address] [place], [place] Carmine Dubois MD GI PROCEDURE ORDERA BLES Final Result * VERIFICATION BLOOD GROUP (10/06/2024 11:05 PM CDT) ABO GROUP O 10/07/2024 12:13 AM CDT [facility] RH (D) TYPE Negative 10/07/2024 12:13 AM CDT [facility] Blood Venipuncture / Unknown 10/06/2024 11:05 PM CDT 10/06/2024 11:10 PM CDT Alessandra Jolley DO BLOOD BANK ORDERABLES Final Result [facility] CLIA#[id number] [address] [place] [address], * COLONOSCOPY REPORT (10/03/2024 8:48 AM CDT) Narrative Procedure Note Carmine Dickerson DO - 10/03/2024 8:48 AM CDT [facility] Patient Name: Arlene Quach Procedure Date: [...] Scope Out: 8:42:29 AM [address] [place], [place] Carmine Dickerson DO GI PROCEDURE ORDERABLES Final Result * UPPER ENDOSCOPY REPORT (10/03/2024 8:36 AM CDT) Narrative Procedure Note Carmine Dickerson DO - 10/03/2024 8:36 AM CDT [facility] GI Patient Name: Arlene Quach Procedure Date: [...] Scope In: Scope Out: [address] [place], [place] Carmine Dickerson DO GI PROCEDURE ORDERABLES [...] Last Indicated C Diff 10/07/2024 10/07/2024 Insurance [facility] Address: [address] [address] [place] [address] [place] Advance Directives For more information, please contact: [phone] * Full Code (Latest Code Status on [...] 7:38 AM 10/03/2024 11:18 AM Care Teams Dynamite Cartridge Crimper Relationship Specialty Start Date End Date Tawnya Lane DO [address] [place] [phone] PCP - General Family Practice 10/24/24
--- OUTSIDE RECORDS SUMMARY | 2024-10-29 15:53 | XMS_ITS | Encounter Summary ---
Author Organization [facility] Address [address] [place] [address] Care Team Providers Care Broker In Charge Name Role Phone Unavailable Primary Care Provider Unavailabl e Encounter Details Date Type Department Care Team (Latest Contact Info) Description 06/27/1998 Outpatient Historical [facility] Oral and Maxillo Surgery[address] [place] [address] Bill Box, DDS NO ADDRESS ON FILE Dental caries (Primary Dx); Unspecified disorder of the teeth and supporting structures; Periapical abscess Social History Tobacco Use Types Packs/Day Years Used Date Smoking Tobacco: Never Assessed Comments Unknown Sex and Gender Information Value Date Recorded Sex Assigned at Not on file 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
--- OUTSIDE RECORDS SUMMARY | 2024-10-29 15:53 | XMS_ITS | Encounter Summary ---
Author Organization [facility] Address [address] [place] [address] Care Team Providers Care Photographic Laboratory Supervisor Name Role Phone Unavailable Primary Care Provider Unavailabl e Encounter Details Date Type Department Care Team (Latest Contact Info) Description 12/31/2005 Outpatient Historical [facility] Orthopedics- 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
--- OUTSIDE RECORDS SUMMARY | 2024-10-29 15:53 | XMS_ITS | Encounter Summary ---
Author Organization [facility] Address [address] [place] [address] Care Team Providers Care Clerk Entry Level Name Role Phone Tawnya Lane DO Primary Care Provider +1- [phone] Reason for Visit * Reason Onset Date Comments Question 10/25/2024 Encounter Details Date Type Department Care Team (Late st Contact Info) Description 10/25/2024 Telephone [facility] Gen Spec Surg [place] [facility] 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 [place] [address] Melquiades Ken FNP [address] [place] [address] documented as of this encounter Visit Diagnoses Not on filedocumented in this encounter Additional Health Concerns Infection Onset Date Last Indicated Resolved Time C Diff 10/07/2024 10/07/2024 documented as of this encounter Care Teams Clerk Entry Level Relationship Specialty Start Date End Date Tawnya Lane DO [address] [place] [phone] PCP - General Family Practice 10/24/24 documented as of this encounter
--- OUTSIDE RECORDS SUMMARY | 2024-10-29 15:53 | XMS_ITS | Encounter Summary ---
Author Organization [facility] Address [address] [place] [address] Care Team Providers Care Automotive Painter Name Role Phone Unavailable Primary Care Provider Unavailabl e Encounter Details Date Type Department Care Team (Latest Contact Info) Description 09/30/2005 Outpatient Historical [facility] Orthopedics- [address] [place] 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
--- OUTSIDE RECORDS SUMMARY | 2024-10-29 15:53 | XMS_ITS | Encounter Summary ---
Author Organization [facility] Address [address] [place] [address] Care Team Providers Care Dental Professional Name Role Phone Tawnya Lane DO Primary Care Provider +1- [phone] Encounter Details Date Type Department Care Team (Latest Contact Info) Description 04/14/2007 Outpatient Historical [facility] Internal Medicine [place] [address] [place] [address] Gilberto Leung MD Elevated Blood Pressure Reading without Diagnosis of Hypertension Social History Tobacco Use Types Packs/Day Years Used Date Smoking Tobacco: Never Assessed Comments Unknown Sex and Gender Information Value Date Recorded Sex Assigned at Not on file Legal Sex Female 5:31 AM MACHINE PULLER OVER Gender Identity Not on file Sexual Orientation Not on file documented as of this encounter Plan of Treatment Upcoming Encounters Date Type Department Care Team (Late st Contact Info) Description 12/07/2024 7:30 AM CDT Office Visit [facility] Gastroenterology- [place] [address] [address] Melquiades Ken FNP [address] [facility] [address] [place] [address] documented as of this encounter Procedures Procedure Name Priority Date/Time Associated Diagnosis Comments MICROALBUMIN/CREATININ E RATIO, RANDOM UR Routine 04/14/2007 3:34 PM MACHINE PULLER OVER CBC WITH DIFFERENTIAL Routine 04/14/2007 3:34 PM MACHINE PULLER OVER URINALYSIS W/REFLEX MICROSCOPIC Routine 04/14/2007 3:34 PM MACHINE PULLER OVER T3 FREE Routine 04/14/2007 3:34 PM MACHINE PULLER OVER TSH Routine 04/14/2007 3:34 PM MACHINE PULLER OVER T4 FREE Routine 04/14/2007 3:34 PM MACHINE PULLER OVER COMPREHENSIVE METABOLIC PANEL Routine 04/14/2007 3:34 PM MACHINE PULLER OVER documented in this encounter Results * (ABNORMAL) COMPREHENSIVE METABOLIC PANEL (04/14/2007 3:34 PM MACHINE PULLER OVER) ALKALINE PHOSPHATASE 54 35 - 104 U/L [facility] CO2 22 22 - 30 mmol/L [facility] BILIRUBIN TOTAL 0.4 0.2 - 1.0 mg/dL [facility] POTASSIUM 3.9 3.5 - 4.9 mmol/L [facility] TOTAL PROTEIN 8.0 6.3 - 8.6 g/dL [facility] GLUCOSE 86 65 - 99 mg/dL [facility] AST 28 12 - 32 U/L [facility] BUN 7 6 - 20 mg/dL [facility] CALCIUM 8.5 8.4 - 10.2 mg/dL [facility] ALBUMIN 4.6 3.4 - 4.8 g/dL [facility] CHLORIDE 99 96 - 108 mmol/L [facility] CREATININE 0.71 0.51 - 0.95 mg/dL [facility] ALT 35(H) 0 - 31 U/L [facility] SODIUM 133(L) 135 - 145 mmol/L [facility] GFR, >60 >=60 mL/min/1. 7 sq meter [facility] GFR >60 >=60 mL/min/1. 7 sq meter [facility] Comment: Estimated GFR rate interpretative information for both Americans and non- Americans is available on the [facility] Intranet at: [email or web address] Select: Lab Policies and Procedures Select: Reference Ranges - GFR Blood specimen (specimen) 04/14/2007 3:34 PM MACHINE PULLER OVER 04/14/2007 8:28 PM MACHINE PULLER OVER Gilberto Leung MD CHEMISTRY ORDERABLES Edited [facility] [address] [place], [place] [address] * (ABNORMAL) URINALYSIS (04/14/2007 3:34 PM MACHINE PULLER OVER) COLOR UA Pale Yellow [facility] NITRITE UA Negative Negative [facility] UROBILINOGEN UA <1 <=1 mg/dL [facility] EPITHELIAL CELLS, URINE 5-10 /HPF [facility] PH UA 6.0 5.0 - 8.0 [facility] KETONES UA Negative Negative [facility] WBC UA 1 0 - 5 /HPF [facility] CLARITY UA Slt. Cloudy(A) Clear [facility] PROTEIN UA Negative Negative [facility] BILIRUBIN UA Negative Negative [facility] LEUKOCYTE ESTERASE UA Negative Negative [facility] BACTERIA UA 1+(A) None Seen /HPF [facility] SPECIFIC GRAVITY UA 1.009 1.001 - 1.035 [facility] BLOOD UA Negative Negative [facility] GLUCOSE UA Negative Negative [facility] Urine, clean catch 04/14/2007 3:34 PM MACHINE PULLER OVER 04/14/2007 8:28 PM MACHINE PULLER OVER Gilberto Leung MD URINE ORDERABLES Final Resul t Performing Organization Address [facility]/ZIP Co de Phone Number [facility] [address] [place] [address] * TSH (04/14/2007 3:34 PM MACHINE PULLER OVER) TSH 3.89 0.27 - 4.20 uU/mL [facility] Blood specimen (specimen) 04/14/2007 3:34 PM MACHINE PULLER OVER 04/14/2007 8:28 PM MACHINE PULLER OVER us Gilberto Leung MD CHEMISTRY ORDERABLES Final R esult Performing Organization Address [facility] Co de Phone Number [facility] [address] [place] [address] * T4 FREE (04/14/2007 3:34 PM MACHINE PULLER OVER) T4 FREE 1.1 0.9 - 1.7 ng/dL [facility] Blood specimen (specimen) 04/14/2007 3:34 PM MACHINE PULLER OVER 04/14/2007 8:28 PM MACHINE PULLER OVER us Gilberto Leung MD CHEMISTRY ORDERABLES Final R esult Performing Organization Address [facility] Co de Phone Number [facility] [address] [place] [address] * T3 FREE (04/14/2007 3:34 PM MACHINE PULLER OVER) T3 FREE 3.4 2.5 - 4.4 pg/mL [facility] Blood specimen (specimen) 04/14/2007 3:34 PM MACHINE PULLER OVER 04/14/2007 8:28 PM MACHINE PULLER OVER us Gilberto Leung MD CHEMISTRY ORDERABLES Final R esult Performing Organization Address City/[facility]/ZIP Co de Phone Number [facility] [address] [place], [place] [address] * MICROALBUMIN/CREATININE RATIO, RANDOM UR (04/14/2007 3:34 PM MACHINE PULLER OVER) Pathologist [facility] MICROALBUMIN/C REAT RATIO, UR <5 0 - 29 mg/g creatinine [facility] Urine specimen (specimen) 04/14/2007 3:34 PM MACHINE PULLER OVER 04/14/2007 8:28 PM MACHINE PULLER OVER Gilberto Leung MD URINE ORDERABLES Final Resul t [facility] [address] [place] [address] * (ABNORMAL) CBC WITH DIFFERENTIAL (04/14/2007 3:34 PM MACHINE PULLER OVER) Pathologist [facility] MCHC 33.6 31.5 - 35.5 % [facility] MCV 93.9 82.0 - 99.0 fL [facility] HEMOGLOBIN 15.0(H) 11.8 - 14.8 g/dL [facility] RDW 14.4 11.5 - 14.5 % [facility] MPV 12.2 9.3 - 12.4 fL [facility] WBC 12.2(H) 4.0 - 9.8 K/uL [facility] MCH 31.5 27.2 - 32.6 pg [facility] PLATELETS 341 140 - 350 K/uL [facility] HEMATOCRIT 44.7(H) 35.5 - 44.0 % [facility] RDW-STDEV 48.8(H) 37.1 - 48.7 fL [facility] RBC 4.76 3.90 - 4.90 M/uL [facility] EOSINOPHILS 0 0 - 7 % [facility] EOSINOPHIL ABSOLUTE 0.03 0.00 - 0.70 K/uL [facility] LYMPHOCYTES 22 16 - 45 % [facility] LYMPHOCYTE ABSOLUTE 2.69 0.70 - 4.50 K/uL [facility] BASOPHILS 0 0 - 2 % [facility] BASOPHILS ABSOLUTE 0.03 0.00 - 0.20 K/uL [facility] MONOCYTES 11 3 - 13 % [facility] MONOCYTE ABSOLUTE 1.39(H) 0.10 - 1.30 K/uL [facility] NEUTROPHILS 66 45 - 70 % [facility] NEUTROPHIL ABSOLUTE 8.05(H) 1.90 - 7.00 K/uL [facility] Blood specimen (specimen) 04/14/2007 3:34 PM MACHINE PULLER OVER 04/14/2007 8:28 PM MACHINE PULLER OVER Gilebrto Leung MD HEMATOLOGY ORDERABLES Edited INTERFACE SYSTEM Refer to clinic/hospital department [facility] [address] [place] [address] documented in this encounter Visit Diagnoses Diagnosis [...] documented as of this encounter Care Teams Dental Professional Relationship Specialty Start Date End Date Tawnya Lane DO [address] [place] [phone] PCP - General Family Practice 10/24/24 documented as of this encounter
--- OUTSIDE RECORDS SUMMARY | 2024-10-29 15:53 | XMS_ITS | Encounter Summary ---
Author Organization [facility] Address 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 [place] [address] Jesus Manuel MandysethpanchitoPETR [address] [place] [address] documented as of this encounter Visit Diagnoses Not on filedocumented in this encounter Additional Health Concerns Infection Onset Date Last Indicated Resolved Time C Diff 10/07/2024 10/07/2024 R/O GI Pathogen 10/13/2024 10/13/2024 10/13/2024 1 1:33 AM CDT R/O GI Pathogen 10/16/2024 10/17/2024 10/17/2024 4 :45 AM CDT documented as of this encounter Care Teams Molded Goods Operator Relationship Specialty Start Date End Date Tawnya Lane DO [address] [place] [phone] PCP - General Family Practice 10/24/24 documented as of this encounter
--- OUTSIDE RECORDS SUMMARY | 2024-10-29 15:53 | XMS_ITS | Encounter Summary ---
Author Organization [facility] Address [address] [place] [address] Care Team Providers Care Crop Farmers Name Role Phone Unavailable Primary Care Provider Unavailabl e Encounter Details Date Type Department Care Team (Latest Contact Info) Description 08/06/1998 Outpatient Historical [facility] Oral and Maxillo Surgery[address] [place] [address] Bill Box, DDS NO ADDRESS ON FILE Dental caries (Primary Dx); Chronic gingivitis; Unspecified disorder of the teeth and supporting structures Social History Tobacco Use Types Packs/Day Years Used Date Smoking Tobacco: Never Assessed Comments Unknown Sex and Gender Information Value Date Recorded Sex Assigned at Not on file Legal 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
--- OUTSIDE RECORDS SUMMARY | 2024-10-29 15:53 | XMS_ITS | Encounter Summary ---
Author Organization [facility] Address [address] [place] [address] Care Team Providers Care Sand Plant Attendant Name Role Phone Unavailable Primary Care Provider Unavailabl e Encounter Details Date Type Department Care Team (Latest Contact Info) Description 12/09/2005 Outpatient Historical [facility] Orthopedics- 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
--- OUTSIDE RECORDS SUMMARY | 2024-10-29 15:53 | XMS_ITS | Clinical Summary ---
Author Organization [facility] Address [address] 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
--- OUTSIDE RECORDS SUMMARY | 2024-10-29 15:53 | XMS_ITS | Encounter Summary ---
Author Organization [facility] Address 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 Female 5:31 AM SKATE HOP Gender Identity Not on file Sexual Orientation Not on file documented as of this encounter Plan of Treatment Upcoming Encounters Date Type Department Care Team (Late Contact Info) Description 12/07/2024 7:30 AM CDT Office Visit [facility] Gastroenterology- [place] [address] [address] Melquiades Ken FNP [address] [address] documented as of this encounter [...] documented as of this encounter Care Teams Authorizer Relationship Specialty Start Date End Date Tawnya Lane DO [address] [place] [phone] PCP - General Family Practice 10/24/24 documented as of this encounter
--- OUTSIDE RECORDS SUMMARY | 2024-10-29 15:53 | XMS_ITS | Patient Health Record ---
Author Organization [facility] Address [address] [place] [address] Care Team Providers Care Hot Die Press Feeder Name Role Phone Tawnya Lane DO Primary Care Provider Unavailab Anton Mckinley Unavailable [phone] Migration, Provider Unavailable Unavailable Elida James Unavailable Ai Benson Unavailable [phone] Janet, Erick Unavailable [phone] Allergies Allergen (clinical drug ingredient) Drug/Non Drug Allergy documented on EMR Reaction Allergy Type Onset Date Status Sulfur Rash Drug Allergy Active Results Component Value Reference Range Flag Notes Urine Drug Screen (cup read) - 72791 Reviewed date:07/18/2024 12:37:34 PM Interpretation: Performing Lab: Notes/Report: OPI + Fluoro Needle For Placement - Non-Spine 43458 Reviewed date:03/29/2024 02:42:29 PM Interpretation: Performing Lab: Notes/Report: Urine Drug Screen (cup read) - 35080 Reviewed date:09/27/2024 10:16:46 AM Interpretation: Performing Lab: Notes/Report: OPI + Tox Results Reviewed date:08/01/2024 02:58:02 PM Interpretation: Performing Lab: Notes/Report: Urine Confirmation Panel (in strument) - 95042 Reviewed date:07/23/2024 03:07:09 PM Interpretation: Performing Lab: [...] by the U.S. Food and Drug Administration. zzzUrine Drug Screen (confir mation by instrument) - 69779 Reviewed date:01/31/2024 04:56:57 PM Interpretation: Performing Lab: Notes/Report: Urine Confirmation Panel (in strument) - 53416 Reviewed date:08/01/2024 02:51:22 PM Interpretation: Performing Lab: [...] Administration. Urine Drug Screen (cup read) - 41632 Reviewed date:07/25/2024 12:33:05 PM Interpretation: Performing Lab: Notes/Report: AMP - MARLENA - BUP - BZO - MDMA - OPI + PCP - OXY + MTD - MAMP - Tox Results Reviewed date:07/23/2024 02:59:35 PM Interpretation: Performing Lab: Notes/Report: Urine Drug Screen (cup read) - 07045 Reviewed date:05/24/2024 04:13:33 PM Interpretation: Performing Lab: Notes/Report: OPI + Tox Results Reviewed date:04/24/2024 10:44:16 AM Interpretation: Performing Lab: Notes/Report: Urine Confirmation Panel (in strument) - 24265 Reviewed date:04/24/2024 10:44:16 AM Interpretation: Performing Lab: [...] by the U.S. Food and Drug Administration. 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) 08/04/19 Active confirmed Problem Degeneration of lumbar intervertebral disc (97146256) Other intervertebral disc degeneration, lumbar region (M51.36) 08/04/19 Active confirmed Problem Abnormal gait (27287682) Unspecified abnormalities of gait and mobility (R26.9) 08/04/19 Active confirmed Problem Bilateral sacroiliitis (5508834917) Bilateral sacroiliitis (M46.1) Active confirmed Problem Sacroiliitis (30395870) Sacroiliitis (M46.1) Active confirmed Problem Abnormal gait (33838125) Abnormality of gait and mobility (R26.9) Active confirmed Problem Radiculopathy due to lumbar intervertebral disc disorder (940925976473910) 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 SI Joint w/ imaging geraldine dance (CT or fluoroscopy) - 98014 01/04/2024 01/04/2024 N/A Inj. SI Joint w/ imaging geraldine dance (CT or fluoroscopy) - 50077 03/29/2024 03/29/2024 N/A Inj. SI Joint w/ imaging geraldine dance (CT or fluoroscopy) - 47632 06/14/2024 06/14/2024 04-07 unav Inj. Trigger Points, 3 or mo re muscles - 08/22/2024 08/22/2024 N/A Encounters Encounter Location Date Provider Diagnosis [facility] [place] [address] [place] [address] 04/19/2024 Ai Benson Chronic pain syndrom e G89.4 ; Other intervertebral disc degeneration, thoracic region M51.34 ; Degeneration of intervertebral disc of lumbar region with discogenic back pain M51.360 ; Cyst of kidney, acquired N28.1 and FPC (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 of opiate analgesic Z79.891 [facility] [place] [address] [place] [address] 02/23/2024 Erick Gonzales Chronic pain syndrom e G89.4 ; Other intervertebral disc degeneration, thoracic region M51.34 ; Degeneration of intervertebral disc of lumbar region with discogenic back pain M51.360 ; Cyst of kidney, acquired N28.1 and FPC (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 of opiate analgesic Z79.891 [facility] [place] [address] [place] [address] 01/25/2024 Anton Dwyer Chronic pain syndrom e G89.4 ; Hip pain, left M25.552 ; Pain in right hip M25.551 ; Intervertebral disc disorder with radiculopathy of lumbar region M51.16 ; Abnormality of gait and mobility R26.9 and FPC (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 of opiate analgesic Z79.891 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 [place] [address] [place] [address] 07/18/2024 Anton Dwyer Chronic pain syndrom e G89.4 ; Other intervertebral disc degeneration, thoracic region M51.34 ; Degeneration of intervertebral disc of lumbar region with discogenic back pain M51.360 ; Muscle pain, myofascial M79.18 ; Cyst of kidney, acquired N28.1 and terminal superintendent (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 of opiate analgesic Z79.891 [facility] [place] [address] [place] [address] 08/22/2024 Anton Dwyer Chronic pain syndrom e G89.4 ; Other intervertebral disc degeneration, thoracic region M51.34 ; Degeneration of intervertebral disc of lumbar region with discogenic back pain M51.360 ; Muscle pain, myofascial M79.18 ; Cyst of kidney, acquired N28.1 and FPC (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 of opiate analgesic Z79.891 [facility] [place] [address] [place] [phone] 07/25/2024 Anton Andersonfft Chronic pain syndrom e G89.4 ; Other intervertebral disc degeneration, thoracic region M51.34 ; Degeneration of intervertebral disc of lumbar region with discogenic back pain M51.360 ; Cyst of kidney, acquired N28.1 ; FPC (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 of opiate analgesic Z79.891 and Muscle pain, myofascial M79.18 [facility] [address] [place] [address] 01/04/2024 Anton Dwyer Bilateral sacroiliitis M46.1 [facility] [address] [address] 05/24/2024 Ai Kelley Chronic pain syndrom e G89.4 ; Other intervertebral disc degeneration, thoracic region M51.34 ; Degeneration of intervertebral disc of lumbar region with discogenic back pain M51.360 ; Cyst of kidney, acquired N28.1 and terminal superintendent (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 of opiate analgesic Z79.891 [facility] [address] [place] [address] 06/14/2024 Anton Dwyer Hip pain, left M25.552 [facility] [address] [place] [address] 03/29/2024 Anton Dwyer Sacroiliitis M46.1 [facility] [address] [address] 05/24/[address] [facility] [place] [address] [place] [address] 04/19/[address] [facility] [address] [place] [address] 03/07/2024 Anton Dwyer Chronic pain syndrom e G89.4 [facility] [place] [address] [place] [address] 02/24/[address] [facility] [place] [address] [place] [address] 02/23/[address] [facility] [address] [place] [address] 02/23/2024 Anton Dwyer Chronic pain syndrom e G89.4 [facility] [place] [address] [place] [address] 02/13/[address] [facility] [place] [address] [place] [address] 02/13/2024 Anton Dwyer Migrated_Facility 0 0 12/18/2023 Provider Migration Migrated_Facility 0 0 12/17/[address] [facility] [place] [address] [place] [address] 09/27/2024 Anton Dwyer Other intervertebral disc degeneration, thoracic region M51.34 and Chronic pain syndrome G89.4 [facility] [place] [address] [place] [address] 09/05/2024 Anton Dwyer Chronic pain syndrom e G89.4 Assessments Encounter Date Diagnosis (ICD Code) [...] effects are noted. Last UDS and [place] PEER FINANCIAL COUNSELOR reviewed today. Patient is advised that best [...] effects are noted. Last UDS and AR PEER FINANCIAL COUNSELOR reviewed today. Patient is advised that best [...] effects are noted. Last UDS and [place] PEER FINANCIAL COUNSELOR reviewed today. Patient is advised that best [...] of kidney, acquired (ICD-10 - N28.1) 02/23/2024 terminal superintendent (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 of opiate analgesic (ICD-10 - [...] gait and mobility (ICD-10 - R26.9) 01/25/2024 terminal superintendent (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 of opiate analgesic (ICD-10 - Z79.891) 04/19/2024 FPC (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 of opiate analgesic (ICD-10 - Z79.891) 05/24/2024 terminal superintendent (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 of opiate analgesic (ICD-10 - Z79.891) 07/18/2024 terminal superintendent (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 of opiate analgesic (ICD-10 - Z79.891) 07/25/2024 terminal superintendent (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 of opiate analgesic (ICD-10 - [...] of kidney, acquired (ICD-10 - N28.1) 09/27/2024 FPC (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 of opiate analgesic (ICD-10 - Z79.891) 08/22/2024 FPC (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 of opiate analgesic (ICD-10 - [...] Drug Screen (confirmation by in strument) - 49886 04/19/2024 Next Appt Details Provider Name:Anton Dwyer, 11/28/2024 10:20:00 AM, [address] [place], [address], Insurance Providers Payer Name Payer Address Payer Phone Subscriber Number Group Number Insured Name Patient Relationship to Insured Coverage Start Date Coverage End Date [employer] Medicare Replacement [address] [address] [place] [address] [id number] Arlene Quach Self - patient is the insured [place] Medicaid [address] [place] [address] [id number] Arlene Quach Self - patient is the insured [place] Medicare [address] [address] [place] [address] [id number] Arlene Quach Self - patient is the insured Medications Administered Medication Instructions Date of Administration Dosage Notes BUPivacaine HCl 08/22/2024 5 mL BUPivacaine HCl 07/25/2024 5 mL Superscap ular, Trapizious, Cervical Superspinaous Medical (General) History Medical History History ICD Code Tuberculosis migraines stroke Cancer Arthritis constipation Bleeding Disorder Surgical History Surgery Date(Month/Year) Brain surgery cervical cancer surgery Left Hip Surgery Ovary removal Total Right Knee Replacement Lung surgery Eye surgery left knee surgery
--- OUTSIDE RECORDS SUMMARY | 2024-10-29 15:53 | XMS_ITS | Encounter Summary ---
Author Organization [facility] Address [address] [place] [address] Care Team Providers Care Air Tube Releaser Name Role Phone Unavailable Primary Care Provider Unavailabl e Encounter Details Date Type Department Care Team (Latest Contact Info) Description 03/24/2006 Outpatient Historical [facility] Orthopedics- 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
--- OUTSIDE RECORDS SUMMARY | 2024-10-29 15:53 | XMS_ITS | Encounter Summary ---
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
--- NOTE | 2024-10-29 15:57 | US_ITS ---
WS: [id number] Abdominal ultrasound, limited. History: Evaluate for ascites. Comparison: 10/26/2024 All 4 quadrants are imaged by ultrasound to evaluate for ascites. There is a small amount of ascites within all 4 quadrants. US/US abdomen limited 10361 IMPRESSION: Small amount of peritoneal ascites.
[2024-10-29 16:50] LABS: Hematocrit 29.2 % (36-47); Hemoglobin 8.90 g/dL (11.27-16.99); Mean Corpuscular HGB Conc 30.5 g/dL (30-55); Mean Corpuscular Hemoglobin 25.4 pg (27-33); Mean Corpuscular Volume 83.4 fl (85-98); Nucleated Red Blood Cells % 0.7 %; Platelet Count 400 10^3/cmm (157-399); Red Blood Count 3.50 10^6/uL (3.85-5.65); White Blood Count 8.72 10^3/uL (3.29-11.43)
[2024-10-29 17:03] LABS: INR 0.96 (0.8-1.2); Prothrombin Time 13.50 SECONDS (12.1-14.9)
[2024-10-29 17:04] LABS: Partial Thromboplastin Time 31.1 SECONDS (23.9-36.7)
[2024-10-29 17:19] LABS: Ammonia 23 umol/L (11-51)
[2024-10-29 17:20] LABS: Alanine Aminotransferase 20 U/L (0-33); Albumin Level 3.4 g/dL (3.5-5.2); Alkaline Phosphatase 150 U/L (35-105); Anion Gap 13.0 (5-19); Aspartate Amino Transferase 25 U/L (0-32); Blood Urea Nitrogen 8 mg/dL (8-23); Calcium 8.8 mg/dL (8.5-10.5); Carbon Dioxide 25 mmol/L (22-29); Chloride 100 mmol/L (98-107); Creatinine Clr Calc Pharmacy 76.2365; Globulin 3.2 g/dL (1.3-4.6); Glucose 116 mg/dL (65-115); Osmolality Calculated 277 mOsm/kg (285-295); Potassium 4.0 mmol/L (3.5-5.1); Sodium 134 mmol/L (136-145); Total Protein 6.6 g/dL (6.6-8.7)
[2024-10-29 17:30] VITALS: BP 119/77; PULSE 86; O2SAT 94
--- NOTE | 2024-10-29 17:30 | W.ED.ABDPA2 ---
HPI - Abdominal Pain General: Chief Complaint: Abdominal Pain Stated Complaint: fluid build up in abd Time Seen by Provider: 10/29/24 15:51 History of Present Illness: Patient is 59-year-old female with hereditary hemorrhagic telangiectasia, liver failure, reports to emergency room with I need to be drained. Patient's history includes paracentesis this past Tuesday, 10/26, and [facility] 3 times before that, 3 days apart, with a total of 5 times. The last paracentesis on 10/26 that is a part of our records, shows 3400 mL production. She complains of abdominal pain. She does not have lower extremity swelling or shortness of breath. She does have association of the fluid wave. Bowels have not changed in order. Associated Symptoms: Reports nausea; Denies chills, fever(s), hematochezia and vomiting Related Data Home Medications ?Medication ?Instructions ?Recorded ?Confirmed aspirin 81 mg tablet,delayed 81 mg PO DAILY 06/02/20 10/16/24 release Held on 10/14/24. Instructions: Resume on 10/25/24. Hold until PCP / GI says resume cetirizine 10 mg tablet (Allergy 10 mg PO DAILY 03/19/23 10/16/24 Relief (cetirizine)) trazodone 50 mg tablet 50 mg PO BEDTIME 03/19/23 10/16/24 hydrocodone 5 mg-acetaminophen 325 1 tab PO Q12H 10/06/24 10/16/24 mg tablet methocarbamol 500 mg tablet 500 mg PO DAILY PRN Pain 10/06/24 10/16/24 Held on 10/14/24. Instructions: Resume on 10/22/24. carvedilol 6.25 mg tablet 6.25 mg PO DAILY 10/14/24 10/16/24 levothyroxine 50 mcg tablet 50 mcg PO DAILY 10/14/24 10/16/24 tizanidine 4 mg tablet 4 mg PO DAILY PRN muscle spasms 10/14/24 10/16/24 Held on 10/14/24. Instructions: Resume on 10/22/24. vancomycin 125 mg capsule 125 mg PO Q6H 10/14/24 10/16/24 pantoprazole 40 mg tablet,delayed 40 mg PO BID 10/16/24 10/16/24 release Previous Rx's ?Medication ?Instructions ?Recorded spironolactone 50 mg tablet 50 mg PO QAM #30 tabs 10/29/24 Allergies Allergy/AdvReac Type Severity Reaction Status Date / Time Sulfa (Sulfonamide Allergy ALGY-Rash Verified 10/29/24 15:56 Antibiotics) Review of Systems General: Reports: 10 or more systems reviewed and unremarkable except in HPI and below Const: Denies: fever(s) or chills Eyes: Denies: change in vision or blurry vision ENMT: Denies: throat pain, odynophagia or dry mouth Card: Denies: chest pain or palpitations Resp: Denies: dyspnea or non-productive cough GI: Reports: abdominal pain and nausea; Denies: vomiting, pain on defecation or hematochezia : Denies: flank pain or difficulty voiding Musc: Denies: neck pain or back pain Skin/Breast: Denies: rash or pruritus Neuro: Denies: headache(s), numbness in extremities, sensory changes or lack of coordination Psych: Denies: anxiety or depression PFSH ED PFSH: Medical History (Updated 10/29/24 @ 17:46 by NEHAL Hitchcock) Hypothyroidism Iron deficiency anemia due to chronic blood loss Left axillary pain Helicobacter pylori gastritis Hereditary hemorrhagic telangiectasia Anterior cruciate ligament complete tear CVA (cerebral vascular accident) GERD (gastroesophageal reflux disease) Surgical History H/O esophagogastroduodenoscopy (05/01/21) cautery of 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 4 H/O esophagogastroduodenoscopy (06/03/20) 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 History of lung surgery 2008 History of colonoscopy (06/03/20) Cautery of AVM Hx of brain surgery History of eye surgery History of knee surgery History of hip surgery Hx of removal of ovary Social History Smoking and tobacco/nicotine status: never used tobacco/nicotine Quit status (tobacco/nicotine): has quit using Year quit tobacco: Nov 2021 Former quit date comment: Smoked for 40+ years Alcohol intake: current Alcohol intake frequency: few times a week Substance/Drug Use: never Marital status: Number of children: 1 Current occupational status: disabled Physical Exam Const: COMMON NORMALS: no acute distress, average body habitus, patient oriented x3, no limitations, healthy appearing, alert and well nourished GENERAL APPEARANCE: cooperative, comfortable, well kempt and appears older than stated age ORIENTATION/CONSCIOUSNESS: Yes awake HENMT: COMMON NORMALS: normocephalic, atraumatic and Normal external nose present HEAD & SCALP: normocephalic and atraumatic FACE & SINUS: normal facial exam and sinuses nontender NOSE: Normal external nose present and Normal nares present GENERAL EAR: hearing grossly impaired MOUTH: Normal oral and palatal mucosa present THROAT: posterior oropharynx normal Eye: COMMON NORMALS: Equal, round and reactive pupils present and EOMs intact bilaterally PUPIL: Yes Equal, round and reactive pupils present Neck/C-Spine: COMMON NORMALS: full ROM, no lymphadenopathy, supple and no meningeal signs Lymph: LYMPHATIC: no lymphadenopathy noted Chest: COMMONS NORMALS: normal inspection of the chest and normal palpation of entire chest wall Resp: EFFORT & INSPECTION: No abnormal respiratory pattern, No tachypneic, No respiratory distress and No retractions AUSCULTATION: crackles Laterality: bilateral (distal) Cardio: COMMON NORMALS: regular rate and regular rhythm RATE: regular rate RHYTHM: regular rhythm GI: COMMON NORMALS: Soft to palpation and non-tender INSPECTION: Yes Fluid wave present (mild to moderate, no caput deuce, soft/not taunt), No GI erythema present and No gravid abdomen PALPATION: Yes Soft to palpation, Yes Tenderness to palpation present (GI) (diffuse, mild), No Guarding due to palpation present (GI), No Rigid due to palpation, Yes Hepatomegaly present and Yes Splenomegaly present PERCUSSION: Fluid wave present (mild to moderate, no caput deuce, soft/not taunt) and tympanic to percussion : COMMON NORMALS: Yes no CVA tenderness BLADDER/KIDNEY EXAM: Yes no CVA tenderness Back/Pelvis: COMMON NORMALS: no CVA tenderness Extremity: COMMON NORMALS: normal to inspection, full ROM and capillary refill normal Neuro: COMMON NORMALS: patient oriented x3 and CN's II-XII intact bilaterally SENSORIUM/ORIENTATION: Yes alert MENINGEAL SIGNS: Yes no meningeal signs Psych: APPEARANCE: Yes well kempt Course Vital Signs: Vital signs: Vital Signs Temperature 98.4 F 10/29/24 15:51 Pulse Rate 86 10/29/24 17:30 Blood Pressure 119/77 10/29/24 17:30 Pulse Oximetry 94 10/29/24 17:30 Oxygen Delivery Me thod Room Air 10/29/24 17:30 MDM - Abdominal Pain Medical Decision Making Patient is 59-year-old female with hereditary hemorrhagic telangiectasia presents to the emergency room requesting paracentesis. Routine laboratory analysis has improved from previous, currently 8.9, previously 8.2 and hemoglobin, platelets stable at 400, INR has decreased from 1.65 currently to 1.0. Creatinine is stable at 0.9, and sodium 134. There is no availability of paracentesis in the emergency room at this late hour today. Discussed with patient. She did have this done on Tuesday, however she came here between 11?12:00 in the afternoon. She does appear stable to wait another 1-2 days. Her mouth is wet, and lieu of this, no lower extremity edema, fluid wave present, will give spironolactone x 1, and send more to the pharmacy to help with management. Will discuss low-salt diet with patient. Current coordinator is working with case management to set up paracentesis for patient tomorrow. Manager Mobility noted approximately 3000 mL in abdomen. This is currently pending. Medical Records I reviewed the patient's medical records. Lab Data I reviewed the patient's lab results. 10/29/24 16:40 10/29/24 16:40 Labs/Radiology: Laboratory Results WBC 8.72 10^3/uL (3.29-11.43) 10/29/24 16:40 RBC 3.50 10^6/uL (3.85-5.65) L 10/29/24 16:40 Hgb 8.90 g/dL (11.27-16.99) L 10/29/24 16:40 Hct 29.2 % (36-47) L 10/29/24 16:40 MCV 83.4 fl (85-98) L 10/29/24 16:40 MCH 25.4 pg (27-33) L 10/29/24 16:40 MCHC 30.5 g/dL (30-55) 10/29/24 16:40 RDW 18.7 % (12.1-15.1) H 10/29/24 16:40 Plt Count 400 10^3/cmm (157-399) H 10/29/24 16:40 MPV 10.3 fL (7.4-10.4) 10/29/24 16:40 Neut % (Auto) 73.2 % 10/29/24 16:40 Lymph % (Auto) 11.2 % 10/29/24 16:40 Valencia % (Auto) 14.3 % 10/29/24 16:40 Eos % (Auto) 0.2 % 10/29/24 16:40 Baso % (Auto) 0.6 % 10/29/24 16:40 Neut # (Auto) 6.38 10^3/uL (1.8-7.7) 10/29/24 16:40 Lymph # (Auto) 1.0 10^3/uL (0.8-4.8) 10/29/24 16:40 Valencia # (Auto) 1.3 10^3/uL (0.2-0.9) H 10/29/24 16:40 Eos # (Auto) 0.0 10^3/uL (0.0-0.8) 10/29/24 16:40 Baso # (Auto) 0.1 10^3/uL (0.0-0.1) 10/29/24 16:40 Nucleated RBC % (auto) 0.7 % 10/29/24 16:40 Nucleated RBCs # 0.1 /100WBC 10/29/24 16:40 PT 13.50 SECONDS (12.1-14.9) 10/29/24 16:40 INR 0.96 (0.8-1.2) 10/29/24 16:40 APTT 31.1 SECONDS (23.9-36.7) 10/29/24 16:40 Sodium 134 mmol/L (136-145) L 10/29/24 16:40 Potassium 4.0 mmol/L (3.5-5.1) 10/29/24 16:40 Chloride 100 mmol/L (98-107) 10/29/24 16:40 Carbon Dioxide 25 mmol/L (22-29) 10/29/24 16:40 Anion Gap 13.0 (5-19) 10/29/24 16:40 BUN 8 mg/dL (8-23) 10/29/24 16:40 Creatinine 0.8 mg/dL (0.5-0.9) 10/29/24 16:40 GFR Calculation 73.2 mL/min (90-130) L 10/29/24 16:40 Glucose 116 mg/dL (65-115) H 10/29/24 16:40 Calculated Osmolality 277 mOsm/kg (285-295) L 10/29/24 16:40 Calcium 8.8 mg/dL (8.5-10.5) 10/29/24 16:40 Total Bilirubin 0.3 mg/dL (0.15-1.2) 10/29/24 16:40 AST 25 U/L (0-32) 10/29/24 16:40 ALT 20 U/L (0-33) 10/29/24 16:40 Alkaline Phosphatase 150 U/L (35-105) H 10/29/24 16:40 Ammonia 23 umol/L (11-51) 10/29/24 16:40 Total Protein 6.6 g/dL (6.6-8.7) 10/29/24 16:40 Albumin 3.4 g/dL (3.5-5.2) L 10/29/24 16:40 Globulin 3.2 g/dL (1.3-4.6) 10/29/24 16:40 XR interpretation done by ED provider, pending radiology final review Discharge Plan Discharge Patient Disposition: Home Clinical Impression: HHT (hereditary hemorrhagic telangiectasia), Abdominal ascites Condition: Stable Prescriptions: New spironolactone 50 mg tablet 50 mg PO QAM Qty: 30 0RF No Action aspirin 81 mg Tablet,Delayed Release (Dr/Ec) 81 mg PO DAILY carvedilol 6.25 mg tablet 6.25 mg PO DAILY tizanidine 4 mg tablet 4 mg PO DAILY PRN (Reason: muscle spasms) Patient Comments: patient hasn't been taking vancomycin 125 mg capsule 125 mg PO Q6H levothyroxine 50 mcg tablet 50 mcg PO DAILY trazodone 50 mg tablet 50 mg PO BEDTIME cetirizine [Allergy Relief (cetirizine)] 10 mg tablet 10 mg PO DAILY methocarbamol 500 mg tablet 500 mg PO DAILY PRN (Reason: Pain) hydrocodone-acetaminophen 5-325 mg tablet 1 tab PO Q12H pantoprazole 40 mg tablet,delayed release (DR/EC) 40 mg PO BID Discharge Orders: Discharge ED (Routine); Ordered 10/29/24 Ordered By: Yaritza Hickey Referrals: Tawnya Lane DO [Primary Care Provider, FIRE PREVENTION CAPTAIN] Discharge Diet: Low Salt Patient Instructions: Spironolactone (By mouth), Ascites (ED), DASH Eating Plan (ED), Fluid Restriction (ED) Activity Restrictions/Additional Instructions: You will need to return to the radiology department at your specified appointment time. They will call you early in the morning about your time. If they do not call, call back up to the emergency room. Take your spironolactone as directed. Please obtain today, and start daily in the morning. Low-salt diet will help with the fluid wave as well as a fluid restriction. Do not consume more than 1000 mL / 24 hours You will need a follow-up on your labs for your spironolactone. Any pain medication will need to be obtained through your primary care. Return to ED with worsening pain, worsening fluid in your abdomen, fever greater than 100.4 ?F. Print Language: Mongolian Coding Level of Care Code ED Delivery Representative for Irma Montanez
[2024-10-29 18:03] VITALS: BP 119/74; PULSE 82; O2SAT 96
--- NOTE | 2024-10-30 11:31 | DCPLANNER ---
Requests sent to GI for PARA
== END 2024-10-29 18:05 | disposition home or self-care (01) ==
PROVIDERS: Emergency Medicine; Emergency Provider Physician Assistant; PCP Family Medicine
DX: I78.0 Hereditary hemorrhagic telangiectasia (principal); R18.8 Other ascites; Z79.82 Long term (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 of aspirin; Z87.891 Personal history of nicotine dependence; Z86.73 Personal history of transient ischemic attack (TIA), and cerebral infarction without residual deficits
CPT/HCPCS: 36415; 49083; 76705; 80053; 82140; 85025; 85610; 85730; 99284; J9999

== ENCOUNTER 2024-10-31 11:31 | Day surgery (SDC) | payer MEDICARE, MEDICAID, SELFPAY ==
[2024-10-31 11:47] VITALS: BP 110/69; PULSE 78; RESP 18; TEMP 36; O2SAT 97; BMI 18.4
--- NOTE | 2024-10-31 11:47 | US_ITS ---
WS: [id number] ULTRASOUND-GUIDED THERAPEUTIC PARACENTESIS Procedure, risks, and complications have been explained to the patient. Consent is obtained. Utilizing aseptic technique and 1% buffered lidocaine, a small dermatome was made through which a 5 Danish Yueh catheter was inserted. Approximately 2700 ml of clear peritoneal fluid was obtained without difficulty. No complications encountered. US/US paracentesis abd w [id number] IMPRESSION: Uncomplicated paracentesis yielding 2700 ml of peritoneal fluid.
== END 2024-10-31 12:46 | disposition home or self-care (01) ==
LOC: GILAB 11:33
PROVIDERS: Radiology Diagnostic Radiology; Visit Provider Physician Assistant
PROC: (CPT 49082; principal; 2024-10-31 12:00)
DX: R18.8 Other ascites (principal)
CPT/HCPCS: 49083

== ENCOUNTER 2024-11-05 08:03 | Emergency (ER) | payer MEDICARE, MEDICAID, SELFPAY ==
--- OUTSIDE RECORDS SUMMARY | 2024-11-05 08:20 | XMS_ITS | Encounter Summary ---
Author Organization [facility] Address [address] [place] [address] Care Team Providers Care Recreation Therapist Name Role Phone Unavailable Primary Care Provider Unavailabl e Encounter Details Date Type Department Care Team (Latest Contact Info) Description 06/27/1998 Outpatient Historical [facility] Oral and Maxillo Surgery[address] [place] [address] Bill Box, DDS NO ADDRESS ON FILE Dental caries (Primary Dx); Unspecified disorder of the teeth and supporting structures; Periapical abscess Social History Tobacco Use Types Packs/Day Years Used Date Smoking Tobacco: Never Assessed Comments Unknown Sex and Gender Information Value Date Recorded Sex Assigned at Not on file 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
--- OUTSIDE RECORDS SUMMARY | 2024-11-05 08:20 | XMS_ITS | Encounter Summary ---
Author Organization [facility] Address [address] [place] [address] Care Team Providers Care Care Companion Name Role Phone Unavailable Primary Care Provider Unavailabl e Encounter Details Date Type Department Care Team (Latest Contact Info) Description 03/24/2006 Outpatient Historical [facility] Orthopedics- 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
--- OUTSIDE RECORDS SUMMARY | 2024-11-05 08:20 | XMS_ITS | Encounter Summary ---
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
--- OUTSIDE RECORDS SUMMARY | 2024-11-05 08:20 | XMS_ITS | Encounter Summary ---
Author Organization [facility] Address [address] [place] [address] Care Team Providers Care Scratch Finisher Name Role Phone Unavailable Primary Care Provider Unavailabl e Encounter Details Date Type Department Care Team (Latest Contact Info) Description 05/26/2006 Outpatient Historical [facility] Orthopedics- 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
--- OUTSIDE RECORDS SUMMARY | 2024-11-05 08:20 | XMS_ITS | Clinical Summary ---
Author Organization [facility] Address [address] 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
--- OUTSIDE RECORDS SUMMARY | 2024-11-05 08:20 | XMS_ITS | Encounter Summary ---
Author Organization [facility] Address [address] [place] [address] Care Team Providers Care Saturator Operator Name Role Phone Tawnya Lane DO Primary Care Provider [phone]- [phone] Encounter Details Date Type Department Care Team (Late st Contact Info) Description 10/13/2024 Results Follow-Up [facility] Emergency Department [address] [place] [address] Blanca Harris RN [address] [place] [address] CELL COUNT WITH DIFFERENTIAL, BODY [...] on file Legal Sex Female 5:31 AM INSURANCE BROKER Gender Identity Not on file Sexual Orientation [...] Office Visit [facility] Gastroenterology- [place] [address] [place] [address] Jesus Manuel MandysethpanchitoPETR [address] [place] [address] documented as of this encounter Visit Diagnoses Not on filedocumented in this encounter Additional Health Concerns Infection Onset Date Last Indicated Resolved Time C Diff 10/07/2024 10/07/2024 R/O GI Pathogen 10/13/2024 10/13/2024 10/13/2024 1 1:33 AM CDT R/O GI Pathogen 10/16/2024 10/17/2024 10/17/2024 4 :45 AM CDT documented as of this encounter Care Teams Saturator Operator Relationship Specialty Start Date End Date Tawnya Lane DO [address] [place] [phone] PCP - General Family Practice 10/24/24 documented as of this encounter
--- OUTSIDE RECORDS SUMMARY | 2024-11-05 08:20 | XMS_ITS | Encounter Summary ---
Author Organization [facility] Address [address] [place] [address] Care Team Providers Care Assembler 1St Shift Name Role Phone Unavailable Primary Care Provider Unavailabl e Encounter Details Date Type Department Care Team (Latest Contact Info) Description 12/31/2005 Outpatient Historical [facility] Orthopedics- 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
--- OUTSIDE RECORDS SUMMARY | 2024-11-05 08:20 | XMS_ITS | Encounter Summary ---
Author Organization [facility] Address [address] [place] [address] Care Team Providers Care Lpta Name Role Phone Unavailable Primary Care Provider Unavailabl e Encounter Details Date Type Department Care Team (Latest Contact Info) Description 12/09/2005 Outpatient Historical [facility] Orthopedics- 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
--- OUTSIDE RECORDS SUMMARY | 2024-11-05 08:20 | XMS_ITS | Encounter Summary ---
Author Organization [facility] Address 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 Gender Identity Not on file Sexual Orientation Not on file documented as of this encounter Plan of Treatment Upcoming Encounters Date Type Department Care Team (Late Contact Info) Description 12/07/2024 7:30 AM CDT Office Visit [facility] Gastroenterology- [place] [address] [address] Melquiades Ken FNP [address] [address] documented as of this encounter [...] documented as of this encounter Care Teams Ignition Mechanic Relationship Specialty Start Date End Date Tawnya Lane DO [address] [place] [phone] PCP - General Family Practice 10/24/24 documented as of this encounter
--- OUTSIDE RECORDS SUMMARY | 2024-11-05 08:20 | XMS_ITS | Patient Health Record ---
Author Organization [facility] Address [address] [facility] [place] [address] Care Team Providers Care Bedspread Seamer Name Role Phone Tawnya Lane DO Primary Care Provider Unavailab Anton Mckinley Unavailable [phone] Migration, Provider Unavailable Unavailable Elida James Unavailable Ai Benson Unavailable [phone] Janet, Erick Unavailable [phone] Allergies Allergen (clinical drug ingredient) Drug/Non Drug Allergy documented on EMR Reaction Allergy Type Onset Date Status Sulfur Rash Drug Allergy Active Results Component Value Reference Range Flag Notes Fluoro Needle For Placement - Non-Spine 87612 Reviewed date:03/29/2024 02:42:29 PM Interpretation: Performing Lab: Notes/Report: Urine Drug Screen (cup read) - 72955 Reviewed date:07/25/2024 12:33:05 PM Interpretation: Performing Lab: Notes/Report: AMP - MARLENA - BUP - BZO - MDMA - OPI + PCP - OXY + MTD - MAMP - Urine Drug Screen (cup read) - 38653 Reviewed date:07/18/2024 12:37:34 PM Interpretation: Performing Lab: Notes/Report: OPI + Urine Drug Screen (cup read) - 21362 Reviewed date:05/24/2024 04:13:33 PM Interpretation: Performing Lab: Notes/Report: OPI + Urine Drug Screen (cup read) - 10569 Reviewed date:09/27/2024 10:16:46 AM Interpretation: Performing Lab: Notes/Report: OPI + zzzUrine Drug Screen (confir mation by instrument) - 71839 Reviewed date:01/31/2024 04:56:57 PM Interpretation: Performing Lab: Notes/Report: Urine Confirmation Panel (in strument) - 16770 Reviewed date:04/24/2024 10:44:16 AM Interpretation: Performing Lab: [...] Administration. Urine Confirmation Panel (in strument) - 28075 Reviewed date:08/01/2024 02:51:22 PM Interpretation: Performing Lab: [...] Administration. 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) 08/04/19 Active confirmed Problem Degeneration of lumbar intervertebral disc (11665079) Other intervertebral disc degeneration, lumbar region (M51.36) 08/04/19 Active confirmed Problem Abnormal gait (13260787) Unspecified abnormalities of gait and mobility (R26.9) 08/04/19 Active confirmed Problem Bilateral sacroiliitis (5626944095) Bilateral sacroiliitis (M46.1) Active confirmed Problem Sacroiliitis (67850695) Sacroiliitis (M46.1) Active confirmed Problem Abnormal gait (85291113) Abnormality of gait and mobility (R26.9) Active confirmed Problem Radiculopathy due to lumbar intervertebral disc disorder (818407307551109) 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 SI Joint w/ imaging geraldine dance (CT or fluoroscopy) - 71953 01/04/2024 01/04/2024 N/A Inj. SI Joint w/ imaging geraldine dance (CT or fluoroscopy) - 77558 03/29/2024 03/29/2024 N/A Inj. SI Joint w/ imaging geraldine dance (CT or fluoroscopy) - 42667 06/14/2024 06/14/2024 04-07 unav Inj. Trigger Points, 3 or mo re muscles - 08/22/2024 08/22/2024 N/A Encounters Encounter Location Date Provider Diagnosis [facility] [place] [address] [place] [address] 12/14/2023 Anton Dwyer [facility] [address] [facility] [place] [address] 01/04/2024 Anton Dwyer Bilateral sacroiliitis M46.1 [facility] [place] [address] [place] [address] 01/25/2024 Anton Dwyer Chronic pain syndrom e G89.4 ; Hip pain, left M25.552 ; Pain in right hip M25.551 ; Intervertebral disc disorder with radiculopathy of lumbar region M51.16 ; Abnormality of gait and mobility R26.9 and half-way (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 of opiate analgesic Z79.891 [facility] [place] [address] [place] [address] 02/23/2024 [facility] Chronic pain syndrom e G89.4 ; Other intervertebral disc degeneration, thoracic region M51.34 ; Degeneration of intervertebral disc of lumbar region with discogenic back pain M51.360 ; Cyst of kidney, acquired N28.1 and predatory animal exterminator (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 of opiate analgesic Z79.891 [facility] [address] [facility] [place] [address] 03/29/2024 Anton Dwyer Sacroiliitis M46.1 [facility] [place] [address] [place] [address] 04/19/2024 Ai Benson Chronic pain syndrom e G89.4 ; Other intervertebral disc degeneration, thoracic region M51.34 ; Degeneration of intervertebral disc of lumbar region with discogenic back pain M51.360 ; Cyst of kidney, acquired N28.1 and half-way (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 of opiate analgesic Z79.891 [facility] [place] [address] [place] [address] 05/24/2024 Ai Benson Chronic pain syndrom e G89.4 ; Other intervertebral disc degeneration, thoracic region M51.34 ; Degeneration of intervertebral disc of lumbar region with discogenic back pain M51.360 ; Cyst of kidney, acquired N28.1 and half-way (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 of opiate analgesic Z79.891 [facility] [address] [facility] [place] [address] 06/14/2024 Anton Dwyer Hip pain, left M25.552 [facility] [address] [address] 07/18/2024 Anton Dwyer Chronic pain syndrom e G89.4 ; Other intervertebral disc degeneration, thoracic region M51.34 ; Degeneration of intervertebral disc of lumbar region with discogenic back pain M51.360 ; Muscle pain, myofascial M79.18 ; Cyst of kidney, acquired N28.1 and predatory animal exterminator (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 of opiate analgesic Z79.891 [facility] [address] [address] 07/25/2024 Anton Dwyer Chronic pain syndrom e G89.4 ; Other intervertebral disc degeneration, thoracic region M51.34 ; Degeneration of intervertebral disc of lumbar region with discogenic back pain M51.360 ; Cyst of kidney, acquired N28.1 ; predatory animal exterminator (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 of opiate analgesic Z79.891 and Muscle pain, myofascial M79.18 [facility] [address] [address] 08/22/2024 Anton Dwyer Chronic pain syndrom e G89.4 ; Other intervertebral disc degeneration, thoracic region M51.34 ; Degeneration of intervertebral disc of lumbar region with discogenic back pain M51.360 ; Muscle pain, myofascial M79.18 ; Cyst of kidney, acquired N28.1 and half-way (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 of opiate analgesic Z79.891 [facility] [address] [address] 09/27/2024 Ai Benson Chronic pain syndrom e G89.4 ; Other intervertebral disc degeneration, thoracic region M51.34 ; Degeneration of intervertebral disc of lumbar region with discogenic back pain M51.360 ; Cyst of kidney, acquired N28.1 and predatory animal exterminator (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 of opiate analgesic Z79.891 [facility] 0 12/17/2023 Provider Migration [facility] 0 12/18/2023 Provider Migration [facility] [address] [address] 02/13/2024 Anton Dwyer [facility] [place] [address] [place] [address] 02/13/2024 Anton Dwyer [facility] [address] [facility] [place] [address] 02/23/2024 Anton Dwyer Chronic pain syndrom e G89.4 [facility] [place] [address] [place] [address] 02/23/2024 Erick Gonzales [facility] [place] [address] [place] [address] 02/24/2024 Anton Dwyer [facility] [address] [facility] [place] [address] 03/07/2024 Anton Dwyer Chronic pain syndrom e G89.4 [facility] [place] [address] [place] [address] 04/19/2024 Elida Esparza-Geni e [facility] [place] [address] [place] [address] 05/24/2024 Anton Dwyer [facility] [place] [address] [place] [address] 09/05/2024 Anton Dwyer Chronic pain syndrom e G89.4 [facility] [place] [address] [place] [address] 09/27/2024 Anton Dwyer Other intervertebral disc degeneration, [...] effects are noted. Last UDS and [place] GLASS MOULD CLEANER reviewed today. Patient is advised that best [...] effects are noted. Last UDS and [place] GLASS MOULD CLEANER reviewed today. Patient is advised that best [...] effects are noted. Last UDS and [place] GLASS MOULD CLEANER reviewed today. Patient is advised that best [...] of kidney, acquired (ICD-10 - N28.1) 02/23/2024 half-way (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 of opiate analgesic (ICD-10 - [...] gait and mobility (ICD-10 - R26.9) 01/25/2024 predatory animal exterminator (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 of opiate analgesic (ICD-10 - Z79.891) 04/19/2024 predatory animal exterminator (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 of opiate analgesic (ICD-10 - Z79.891) 05/24/2024 half-way (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 of opiate analgesic (ICD-10 - Z79.891) 07/18/2024 half-way (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 of opiate analgesic (ICD-10 - Z79.891) 07/25/2024 half-way (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 of opiate analgesic (ICD-10 - [...] of kidney, acquired (ICD-10 - N28.1) 09/27/2024 predatory animal exterminator (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 of opiate analgesic (ICD-10 - Z79.891) 08/22/2024 half-way (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 of opiate analgesic (ICD-10 - Z79.891) 07/25/2024 Muscle pain, myofascial (ICD-10 - M79.18) 01/25/2024 Other Jose Danielle, am scribing for Anton Dwyer. IAnton, personally performed the services described in this [...] Drug Screen (confirmation by in strument) - 49028 04/19/2024 Next Appt Details Provider Name:Anton Dwyer, 11/28/2024 10:20:00 AM, [address] [place], [address], Insurance Providers Payer Name Payer Address Payer Phone Subscriber Number Group Number Insured Name Patient Relationship to Insured Coverage Start Date Coverage End Date [employer] Medicare Replacement [address] [address] [place] [address] [id number] Arlene Quach Self - patient is the insured [place] Medicaid [address] [place] [address] [id number] Arlene Quach Self - patient is the insured [place] Medicare [address] [address] [place] [address] [id number] Arlene Quach Self - patient is the insured Medications Administered Medication Instructions Date of Administration Dosage Notes BUPivacaine HCl 07/25/2024 5 mL Superscap ular, Trapizious, Cervical Superspinaous BUPivacaine HCl 08/22/2024 5 mL Medical (General) History Medical History History ICD Code Tuberculosis migraines stroke Cancer Arthritis constipation Bleeding Disorder Surgical History Surgery Date(Month/Year) Brain surgery cervical cancer surgery Eye surgery Left Hip Surgery left knee surgery Lung surgery Ovary removal Total Right Knee Replacement
--- OUTSIDE RECORDS SUMMARY | 2024-11-05 08:20 | XMS_ITS | Encounter Summary ---
Author Organization [facility] Address [address] [place] [address] Care Team Providers Care Metallurgical Tester Name Role Phone Unavailable Primary Care Provider Unavailabl e Encounter Details Date Type Department Care Team (Latest Contact Info) Description 08/06/1998 Outpatient Historical [facility] Oral [facility] Max[facility] Surgery[address] [place] [address] Bill Box, DDS NO ADDRESS ON FILE Dental caries (Primary Dx); Chronic gingivitis; Unspecified disorder of the teeth and supporting structures Social History Tobacco Use Types Packs/Day Years Used Date Smoking Tobacco: Never Assessed Comments Unknown Sex and Gender Information Value Date Recorded Sex Assigned at Not on file Legal 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
--- OUTSIDE RECORDS SUMMARY | 2024-11-05 08:20 | XMS_ITS | Encounter Summary ---
Author Organization [facility] Address [address] [place] [address] Care Team Providers Care Survey Statistician Name Role Phone Tawnya Lane DO Primary Care Provider [phone]- [phone] Reason for Visit * Reason Onset Date Comments OTHER 10/30/2024 Encounter Details Date Type Department Care Team (Late st Contact Info) Description 10/30/2024 Telephone [facility] [place] [facility] 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 No answer. LVM with call back number provided. * Telephone Encounter - Kristine Odell - 10/30/2024 10:37 AM CDT Laci Pt calling to get refill on pain meds. Jeff in [place]. She is completely out. documented in this encounter Plan of Treatment Upcoming Encounters Date Type Department Care Team (Late st Contact Info) Description 12/07/2024 7:30 AM CDT [facility] [address] [facility] [address] [place] [address] Melquiades Ken FNP [address] [facility] [address] [place] [address] documented as of this encounter Visit Diagnoses Not on filedocumented in this encounter Additional Health Concerns Infection Onset Date Last Indicated Resolved Time C Diff 10/07/2024 10/07/2024 documented as of this encounter Care Teams Survey Statistician Relationship Specialty Start Date End Date Tawnya Lane DO [address] [place] [id number] PCP - General Family Practice 10/24/24 documented as of this encounter
--- OUTSIDE RECORDS SUMMARY | 2024-11-05 08:20 | XMS_ITS | Encounter Summary ---
Author Organization [facility] Address [address] [place] [address] Care Team Providers Care Sybase Developer Name Role Phone Unavailable Primary Care Provider Unavailabl e Encounter Details Date Type Department Care Team (Latest Contact Info) Description 09/30/2005 Outpatient Historical [facility] 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
--- OUTSIDE RECORDS SUMMARY | 2024-11-05 08:20 | XMS_ITS | Encounter Summary ---
Author Organization [facility] Address [address] [place] [address] Care Team Providers Care Hooker Operator Name Role Phone Tawnya Lane DO Primary Care Provider [phone]- [phone] Encounter Details Date Type Department Care Team (Latest Contact Info) Description 04/14/2007 Outpatient Historical [facility] Internal Medicine [place] [address] [place] [address] Gilberto Leung MD Elevated Blood Pressure Reading without Diagnosis of Hypertension Social History Tobacco Use Types Packs/Day Years Used Date Smoking Tobacco: Never Assessed Comments Unknown Sex and Gender Information Value Date Recorded Sex Assigned at Not on file Legal Sex Female 5:31 AM BLOWER MECHANIC Gender Identity Not on file Sexual Orientation Not on file documented as of this encounter Plan of Treatment Upcoming Encounters Date Type Department Care Team (Late st Contact Info) Description 12/07/2024 7:30 AM CDT Office Visit [facility] Gastroenterology- [place] [address] [address] Melquiades Ken FNP [address] [facility] [address] [place] [address] documented as of this encounter Procedures Procedure Name Priority Date/Time Associated Diagnosis Comments MICROALBUMIN/CREATININ E RATIO, RANDOM UR Routine 04/14/2007 3:34 PM BLOWER MECHANIC CBC WITH DIFFERENTIAL Routine 04/14/2007 3:34 PM BLOWER MECHANIC URINALYSIS W/REFLEX MICROSCOPIC Routine 04/14/2007 3:34 PM BLOWER MECHANIC T3 FREE Routine 04/14/2007 3:34 PM BLOWER MECHANIC TSH Routine 04/14/2007 3:34 PM BLOWER MECHANIC T4 FREE Routine 04/14/2007 3:34 PM BLOWER MECHANIC COMPREHENSIVE METABOLIC PANEL Routine 04/14/2007 3:34 PM BLOWER MECHANIC documented in this encounter Results * (ABNORMAL) COMPREHENSIVE METABOLIC PANEL (04/14/2007 3:34 PM BLOWER MECHANIC) ALKALINE PHOSPHATASE 54 35 - 104 U/L [facility] CO2 22 22 - 30 mmol/L [facility] BILIRUBIN TOTAL 0.4 0.2 - 1.0 mg/dL [facility] POTASSIUM 3.9 3.5 - 4.9 mmol/L [facility] TOTAL PROTEIN 8.0 6.3 - 8.6 g/dL [facility] GLUCOSE 86 65 - 99 mg/dL [facility] AST 28 12 - 32 U/L [facility] BUN 7 6 - 20 mg/dL [facility] CALCIUM 8.5 8.4 - 10.2 mg/dL [facility] ALBUMIN 4.6 3.4 - 4.8 g/dL [facility] CHLORIDE 99 96 - 108 mmol/L [facility] CREATININE 0.71 0.51 - 0.95 mg/dL [facility] ALT 35(H) 0 - 31 U/L [facility] SODIUM 133(L) 135 - 145 mmol/L [facility] GFR, >60 >=60 mL/min/1. 7 sq meter [facility] GFR >60 >=60 mL/min/1. 7 sq meter [facility] Comment: Estimated GFR rate interpretative information for both Americans and non- Americans is available on the [facility] Intranet at: [email or web address] Select: Lab Policies and Procedures Select: Reference Ranges - GFR Blood specimen (specimen) 04/14/2007 3:34 PM BLOWER MECHANIC 04/14/2007 8:28 PM BLOWER MECHANIC Gilberto Leung MD CHEMISTRY ORDERABLES Edited [facility] [address] [place], [place] [address] * (ABNORMAL) URINALYSIS (04/14/2007 3:34 PM BLOWER MECHANIC) COLOR UA Pale Yellow [facility] NITRITE UA Negative Negative [facility] UROBILINOGEN UA <1 <=1 mg/dL [facility] EPITHELIAL CELLS, URINE 5-10 /HPF [facility] PH UA 6.0 5.0 - 8.0 [facility] KETONES UA Negative Negative [facility] WBC UA 1 0 - 5 /HPF [facility] CLARITY UA Slt. Cloudy(A) Clear [facility] PROTEIN UA Negative Negative [facility] BILIRUBIN UA Negative Negative [facility] LEUKOCYTE ESTERASE UA Negative Negative [facility] BACTERIA UA 1+(A) None Seen /HPF [facility] SPECIFIC GRAVITY UA 1.009 1.001 - 1.035 [facility] BLOOD UA Negative Negative [facility] GLUCOSE UA Negative Negative [facility] Urine, clean catch 04/14/2007 3:34 PM BLOWER MECHANIC 04/14/2007 8:28 PM BLOWER MECHANIC Gilberto Leung MD URINE ORDERABLES Final Resul t Performing Organization Address [facility]/ZIP Co de Phone Number [facility] [address] [place] [address] * TSH (04/14/2007 3:34 PM BLOWER MECHANIC) TSH 3.89 0.27 - 4.20 uU/mL [facility] Blood specimen (specimen) 04/14/2007 3:34 PM BLOWER MECHANIC 04/14/2007 8:28 PM BLOWER MECHANIC us Gilberto Leung MD CHEMISTRY ORDERABLES Final R esult Performing Organization Address [facility] Co de Phone Number [facility] [address] [place] [address] * T4 FREE (04/14/2007 3:34 PM BLOWER MECHANIC) T4 FREE 1.1 0.9 - 1.7 ng/dL [facility] Blood specimen (specimen) 04/14/2007 3:34 PM BLOWER MECHANIC 04/14/2007 8:28 PM BLOWER MECHANIC us Gilberto Leung MD CHEMISTRY ORDERABLES Final R esult Performing Organization Address [facility] Co de Phone Number [facility] [address] [place] [address] * T3 FREE (04/14/2007 3:34 PM BLOWER MECHANIC) T3 FREE 3.4 2.5 - 4.4 pg/mL [facility] Blood specimen (specimen) 04/14/2007 3:34 PM BLOWER MECHANIC 04/14/2007 8:28 PM BLOWER MECHANIC us Gilberto Leung MD CHEMISTRY ORDERABLES Final R esult Performing Organization Address City/[facility]/ZIP Co de Phone Number [facility] [address] [place], [place] [address] * MICROALBUMIN/CREATININE RATIO, RANDOM UR (04/14/2007 3:34 PM BLOWER MECHANIC) Pathologist [facility] MICROALBUMIN/C REAT RATIO, UR <5 0 - 29 mg/g creatinine [facility] Urine specimen (specimen) 04/14/2007 3:34 PM BLOWER MECHANIC 04/14/2007 8:28 PM BLOWER MECHANIC Gilberto Leung MD URINE ORDERABLES Final Resul t [facility] [address] [place] [address] * (ABNORMAL) CBC WITH DIFFERENTIAL (04/14/2007 3:34 PM BLOWER MECHANIC) Pathologist [facility] MCHC 33.6 31.5 - 35.5 % [facility] MCV 93.9 82.0 - 99.0 fL [facility] HEMOGLOBIN 15.0(H) 11.8 - 14.8 g/dL [facility] RDW 14.4 11.5 - 14.5 % [facility] MPV 12.2 9.3 - 12.4 fL [facility] WBC 12.2(H) 4.0 - 9.8 K/uL [facility] MCH 31.5 27.2 - 32.6 pg [facility] PLATELETS 341 140 - 350 K/uL [facility] HEMATOCRIT 44.7(H) 35.5 - 44.0 % [facility] RDW-STDEV 48.8(H) 37.1 - 48.7 fL [facility] RBC 4.76 3.90 - 4.90 M/uL [facility] EOSINOPHILS 0 0 - 7 % [facility] EOSINOPHIL ABSOLUTE 0.03 0.00 - 0.70 K/uL [facility] LYMPHOCYTES 22 16 - 45 % [facility] LYMPHOCYTE ABSOLUTE 2.69 0.70 - 4.50 K/uL [facility] BASOPHILS 0 0 - 2 % [facility] BASOPHILS ABSOLUTE 0.03 0.00 - 0.20 K/uL [facility] MONOCYTES 11 3 - 13 % [facility] MONOCYTE ABSOLUTE 1.39(H) 0.10 - 1.30 K/uL [facility] NEUTROPHILS 66 45 - 70 % [facility] NEUTROPHIL ABSOLUTE 8.05(H) 1.90 - 7.00 K/uL [facility] Blood specimen (specimen) 04/14/2007 3:34 PM BLOWER MECHANIC 04/14/2007 8:28 PM BLOWER MECHANIC Gilberto Leung MD HEMATOLOGY ORDERABLES Edited INTERFACE SYSTEM Refer to clinic/hospital department [facility] [address] [place] [address] documented in this encounter Visit Diagnoses Diagnosis [...] documented as of this encounter Care Teams Hooker Operator Relationship Specialty Start Date End Date Tawnya Lane DO [address] [place] [id number] PCP - General Family Practice 10/24/24 documented as of this encounter
--- OUTSIDE RECORDS SUMMARY | 2024-11-05 08:20 | XMS_ITS | Clinical Summary ---
Author Organization [facility] tone Address [address] [place] [address] Care Team Providers Care Purification Operator Name Role Phone Tawnya Lane Primary Care Provider [phone] Allergies Active Allergy Reactions Criticality Noted Date [...] for Nausea. 02/02/20 23 Active IRON PS [id number] IC ACID ORAL Take by mouth. Ac [...] 60 Tablet 2 07/12/19 25 025 Discontinued pantoprazole (PROTONIX) 40 mg Tablet, [...] Date Type Department Care Team Description 5 Telephone [facility] Gen Spec [facility] [place] [address] [place] [phone] Crescencio Aguero MD OTHER 5 Orders Only [facility] [address] [place] [phone] Provider, Abstract 5 Abstract [facility] [address] [place] [phone] Provider, Abstract 5 Telephone [facility] [place] [address] [place] [address] [address] [place] [phone] Crescencio Aguero MD Question 5 External Device Data STL ABSTRACTION Provider, Abstract 5 12:04 PM CDT Anesthesia Event [facility] Operating Room [address] [place] [phone] Oliver Reid MD Brant, Jonathan Casey, LUCA 5 12:00 PM CDT - 5 1:14 PM CDT Surgery [facility] Operating Room [address] [place] [phone] Crescencio Aguero MD HEMORRHOIDECTOMY 5 Results Follow-Up [facility] Gastroenterology - [place] [address] [place] [phone] Julianne David, PATHOLOGY 5 12:06 PM CDT Anesthesia Event [facility] Endoscopy [address] [place] [phone] Chan Anderson MD 5 11:00 AM CDT - 5 11:20 AM CDT [facility] Endoscopy [address] [place] [phone] Julianne David DO COLONOSCOPY 5 External Device Data STL ABSTRACTION Provider, Abstract 5 7:49 PM CDT - 5 1:20 PM CDT Hospital Encounter [facility] Medical Telemetry [address] [place] [phone] Je Garnett MD Saeed, Mariam, MD Lohia, Mehul M, MD Meyer III, Jeb O, DO Rojas, MD Ramirez Kieta, MD Jaden Lower GI hemorrhage Discharge Disposition: Home or Self Care 5 7:00 AM CDT - 5 7:20 AM CDT Surgery [facility] Endoscopy [address] [place] [phone] Mayo Taylor MD ESOPHAGOGASTRODUODENOSCOPY 5 External Device Data STL ABSTRACTION Provider, Abstract 5 External Device Data STL ABSTRACTION Provider, Abstract 5 8:38 AM CDT - 5 1:27 PM CDT Emergency [facility] Emergency Department [address] [place] [phone] Colt Tavera MD Cirrhosis of liver with ascites, unspecified hepatic cirrhosis type (CMS/HCC) (Primary Dx); Abdominal distention; Gastritis without bleeding, unspecified chronicity, unspecified gastritis type Discharge Disposition: Home or Self Care 5 Results Follow-Up [facility] Emergency Department [address] [place] [phone] Blanca Harris RN CELL COUNT WITH DIFFERENTIAL, BODY FLUID, LACTATE DEHYDROGENASE, BODY FLUID, PROTEIN, BODY FLUID, Additional followed-up results: 3 5 Travel 5 External Device Data STL ABSTRACTION Provider, Abstract 5 External Device Data STL ABSTRACTION Provider, Abstract 5 Orders Only [facility] [address] [place] [phone] Provider, Abstract 5 Abstract [facility] [address] [place] [phone] Provider, Abstract 5 9:52 AM CDT Anesthesia Event [facility] Endoscopy [address] [place] [phone] Rolando Sierra MD Le, Andrew N, AA 5 9:20 AM CDT - 5 9:40 AM CDT Surgery [facility] Endoscopy [address] [place] [phone] Carmine Dubois MD ESOPHAGOGASTRODUODENOSCOPY 5 7:54 PM CDT - 5 3:59 PM CDT Hospital Encounter [facility] 3B Surgical [address] [place] [phone] Mohit Gomez MD Brooks, Cynthia J, Ovidio Miner MD Gastrointestinal hemorrhage Discharge Disposition: Home or Self Care 5 8:20 AM CDT - 5 8:40 AM CDT Surgery [facility] Endoscopy [address] [place] [phone] Carmine Dickerson DO ESOPHAGOGASTRODUODENOSCOPY 5 8:03 AM CDT Anesthesia Event [facility] Endoscopy [address] [place] [phone] Mayo Roa DO 5 7:15 AM CDT - 5 9:15 AM CDT Hospital Encounter [facility] Endoscopy [address] [place] [address] Carmine Dickerson, DO Discharge Disposition: Home or Self Care 5 External Device Data STL ABSTRACTION Provider, Abstract 5 External Device Data STL ABSTRACTION Provider, Abstract [facility] [address] [phone] Gera Resendez, DO Documentation Only 5 External Device Data STL ABSTRACTION Provider, Abstract 5 External Device Data STL ABSTRACTION Provider, Abstract [address] [phone] Gera Resendez, DO Documentation Only [address] [phone] Gera Resendez, DO Documentation 5 11:30 AM CDT Office Visit [address] [phone] Gera Resendez, DO Cirrhosis of liver without [...] on file Legal Sex Female 5:31 AM TRAVEL PTA Gender Identity Not on file Sexual Orientation [...] Description 12/07/2024 7:30 AM CDT [facility] [address] [place] [address] Melquiades Ken, [employer] 5 [facility] [address] [place] [phone] Health Maintenance Due Date Last Done Comments [...] Screening 10/18/2031 Medical Devices Implanted Type Area Computer Drafter Device Identifier Shelf Expiration Date Model / Serial / Lot Hemostatic Surgicel 1x2in 1960 - [id number] Implanted:Qty: 1 on 10/19/2024 by Crescencio Aguero MD at [facility] Hemostatic N/A: Rectum [employer] [id number] 01/20/20261960 / / [id number] Explanted Type Area Computer Drafter Device Identifier Shelf Expiration Date Model / Serial / Lot 6.5 Cannulated Screw Explanted:Qty: 1 on 05/27/2021 at [facility] Right: Tibia 6.5 Cannulated Screw Explanted:Qty: 1 on 05/27/2021 at [facility] Right: Tibia 6.5 Cannulated Screw Explanted:Qty: 1 on 05/27/2021 at [facility] Right: Tibia 13mm Washer Explanted:Qty: 1 on 05/27/2021 at [facility] Right: Tibia Procedures Procedure Name Priority [...] CDT PATHOLOGY Pathology 10/19/2024 12:41 PM CDT [place] ANES INSERT ENDOTRACHEAL AIRWAY Routine 10/19/2024 12:20 [...] CDT UPPER ENDOSCOPY REPORT 8:36 AM CDT [place] COLONOSCOPY FLX DX W/MIRIAM J SPEC WHEN PFRMD 10/03/2024 8:20 AM CDT Melena Case Notes Procedure :DBL Special Notes: Trazodone,Hydrocodone,Varices Dx: Melena BT:NONE BT managed by: Diabetic: NO Diabetic/WT med:NONE LOC & REASON:Hosp-Medical BMI: 22.45 Last Procedure date & location: EGD,05/15,Hosp Referring Provider: Tawnya Lane DO GI Doc:Dr Carmine Dickerson Insurance: [employer] Medicare/Medicaid Last GI appt 08/28/24 [place] ESOPHAGOGASTRODUODENOSCOP Y TRANSORAL DIAGNOSTIC 10/03/2024 8:20 AM CDT Melena Case Notes Procedure :DBL Special Notes: Trazodone,Hydrocodone,Varices Dx: Melena BT:NONE BT managed by: Diabetic: NO Diabetic/WT med:NONE LOC & REASON:Hosp-Medical BMI: 22.45 Last Procedure date & location: EGD,05/15,[facility] Referring Provider: Tawnya Lane DO GI Doc:Dr [...] needle course. Insertion of a 10-cm 5 Chilean Yueh centesis catheter, through which approximately 2200 [...] needle course. Insertion of a 10-cm 5 [place] Yueh centesis catheter, through which approximately 2200 ml of a clear yellow ascites was then drained via wall suction. The centesis catheter was removed in its entirety, the chlorhexidine cleansed from the skin, and a sterile dressing placed. Patient tolerated the procedure well without complication. Estimated Blood Loss: Minimal us Jaden Guzámn MD US ORDERABLES Final Result * (ABNORMAL) HEMOGLOBIN AND HEMATOCRIT (10/23/2024 9:24 AM CDT) Only the most recent of16 resultswithin the time period is included. [facility] HEMOGLOBIN 8.1(L) 12.0 - 16.0 g/dL 10/23/2024 9:34 AM CDT [facility] HEMATOCRIT 25.5(L) 36.0 - 46.0 % 10/23/2024 9:34 AM CDT [facility] Blood Venipuncture / Unknown 10/23/2024 9:24 AM CDT 10/23/2024 9:28 AM CDT Crescencio Aguero MD HEMATOLOGY ORDERABLES Final Res ult [facility] # [id number] [address] [place] [address] * (ABNORMAL) CBC WITH DIFFERENTIAL (10/23/2024 4:55 AM CDT) Only the most recent of10 resultswithin the time period is included. [facility] WBC 6.2 4.8 - 10.8 K/uL 10/23/2024 5:51 AM CDT [facility] NRBCS 3(H) <1 % 10/23/2024 5:51 AM CDT [facility] RBC 2.79(L) 4.20 - 5.40 M/uL 10/23/2024 5:51 AM CDT [facility] HEMOGLOBIN 7.7(L) 12.0 - 16.0 g/dL 10/23/2024 5:51 AM CDT [facility] HEMATOCRIT 24.1(L) 36.0 - 46.0 % 10/23/2024 5:51 AM CDT [facility] MCV 86.4 84.0 - 103.0 fL 10/23/2024 5:51 AM CDT [facility] MCH 27.6 27.0 - 34.0 pg 10/23/2024 5:51 AM [facility] MCHC 32.0 30.0 - 35.0 g/dL 10/23/2024 5:51 AM [facility] PLATELETS 241 140 - 440 K/uL 10/23/2024 5:51 AM [facility] MPV 11.1 8.9 - 12.8 fL 10/23/2024 5:51 AM [facility] RDW 17.2(H) 11.0 - 14.5 % 10/23/2024 5:51 AM [facility] RDW-STDEV 53.6 37.0 - 54.0 fL 10/23/2024 5:51 AM [facility] NEUTROPHILS 70 42 - 75 % 10/23/2024 5:51 AM [facility] LYMPHOCYTES 12(L) 24 - 44 % 10/23/2024 5:51 AM [facility] MONOCYTES 17(H) 2 - 10 % 10/23/2024 5:51 AM [facility] EOSINOPHILS 1 0 - 7 % 10/23/2024 5:51 AM [facility] BASOPHILS 0 0 - 1 % 10/23/2024 5:51 AM [facility] IMMATURE GRANULOCYTES 1 0 - 2 % 10/23/2024 5:51 AM [facility] NEUTROPHIL ABSOLUTE 4.34 2.00 - 8.00 K/uL 10/23/2024 5:51 AM [facility] LYMPHOCYTE ABSOLUTE 0.75(L) 1.20 - 4.00 K/uL 10/23/2024 5:51 AM [facility] MONOCYTE ABSOLUTE 1.04(H) 0.10 - 0.60 K/uL 10/23/2024 5:51 AM [facility] EOSINOPHIL ABSOLUTE 0.05 0.00 - 0.70 K/uL 10/23/2024 5:51 AM CDT [facility] BASOPHILS ABSOLUTE 0.02 0.00 - 0.20 K/uL 10/23/2024 5:51 AM CDT [facility] IMMATURE GRANULOCYTES ABSOLUTE 0.03 0.00 - 0.10 K/uL 10/23/2024 5:51 AM CDT [facility] SMEAR REVIEWED: NN - No Action Needed 10/23/2024 5:51 AM [facility] Blood Venipuncture / Unknown 10/23/2024 4:55 AM CDT 10/23/2024 5:42 AM CDT us Crescencio Aguero MD HEMATOLOGY ORDERABLES Final Res ult [facility] CLIA # [id number] [facility] [address] * (ABNORMAL) COMPREHENSIVE METABOLIC PANEL (10/23/2024 4:55 AM CDT) Only the most recent of11 resultswithin the time period is included. SODIUM 135(L) 136 - 145 mmol/L 10/23/2024 6:27 AM [facility] POTASSIUM 3.9 3.5 - 5.1 mmol/L 10/23/2024 6:27 AM [facility] CHLORIDE 103 98 - 107 mmol/L 10/23/2024 6:27 AM [facility] CO2 22 22 - 29 mmol/L 10/23/2024 6:27 AM [facility] CALCIUM 8.0(L) 8.8 - 10.2 mg/dL 10/23/2024 6:27 AM [facility] BUN 8 8 - 23 mg/dL 10/23/2024 6:27 AM [facility] CREATININE 0.71 0.51 - 0.95 mg/dL 10/23/2024 6:27 AM [facility] GLUCOSE 103(H) 74 - 99 mg/dL 10/23/2024 6:27 AM CDT [facility] TOTAL PROTEIN 5.1(L) 6.4 - 8.3 g/dL 10/23/2024 6:27 AM T [facility] ALBUMIN 3.0(L) 3.5 - 5.2 g/dL 10/23/2024 6:27 AM T [facility] BILIRUBIN TOTAL 0.4 0.0 - 1.0 mg/dL 10/23/2024 6:27 AM T [facility] ALKALINE PHOSPHATASE 82 35 - 104 U/L 10/23/2024 6:27 AM T [facility] AST 24 10 - 35 U/L 10/23/2024 6:27 AM T [facility] ALT 18 <=35 U/L 10/23/2024 6:27 AM T [facility] GFR >60 >=60 mL/min/1.7 3 sq meter 10/23/2024 6:27 AM T [facility] Comment:eGFR calculated with 2020 CKD-EPI equation. Vegetarian diet, extremely high or low muscle mass, and may affect results. Cystatin C with Glomerular Filtration Rate is a suitable alternative for these patients. ANION GAP 10 9 - 20 mmol/L 10/23/2024 6:27 AM [facility] Blood Venipuncture / Unknown 10/23/2024 4:55 AM CDT 10/23/2024 5:54 AM CDT us Jaden Guzmán MD CHEMISTRY ORDERABLES Final Resul t [facility] CLIA # [id number] [address] [place] [address] * POC GLUCOSE (10/22/2024 12:49 PM CDT) Only the most recent of10 resultswithin the time period is included. [facility] Signature GLUCOSE POC 93 74 - 99 mg/dL 10/22/2024 12:49 PM CDT [facility] SPECIMEN SOURCE, GLUCOSE POC Capillary 10/22/2024 12:49 PM CDT [facility] Blood, whole 10/22/2024 12:4 9 PM CDT 10/22/2024 1:02 PM CDT Jaden Guzmán MD POINT OF CARE TESTING Final Resu lt [facility] CLIA # [id number] [address] [address] [place] [address] * TRANSFUSE RED BLOOD CELLS (10/19/2024 1:19 PM CDT) Only the most recent of2 resultswithin the time period is included. Jaden Guzmán MD BLOOD TRANSFUSION ORDERABLES Fin al Result * PATHOLOGY (10/19/2024 12:41 PM CDT) Only the most recent of3 resultswithin the time period is included. CASE REPORT Surgical Pathology Report Case: [id number] Authorizing Provider: Crescencio Aguero MD Collected: 10/19/2024 12:41 PM Ordering Location: [facility] Received: 10/19/2024 01:44 PM Operating Room Pathologist: Murray Fernández MD Specimen: Hemorrhoids 3:38 PM CDT [facility] FINAL DIAGNOSIS A. Hemorrhoids, excision - Hemorrhoids - Negative for dysplasia or malignancy Murray Fernández MD [id number] 3:38 PM CDT [facility] at 1538 CDT GROSS DESCRIPTION A. Received in a container of formalin labeled Main -hemorrhoids are 3 lopez-topete, wrinkled skin fragments, that range from 1.5 to 2.3 cm in greatest dimension. Sectioning reveals hemorrhagic, mildly edematous cut surfaces. No discrete masses or lesions are grossly identified. Health Consultant sections are submitted in A1. Grossed by: Kita Hobbs MS, NEHAL (ASCP)CM 3:38 PM CDT [facility] OPERATIVE PROCEDURE 1: HEMORRHOIDECTOMY 3:38 PM CDT [facility] COMMENT The Vente[employer]ete voice-activated dictation system may have been used [...] by the Diagnostic Immunohistochemistry Laboratory of [facility] in compliance with CLIA'88 regulations. Some of these tests rely on the use of analyte specific reagents and are subject to specific labeling requirements by the FDA. All controls show appropriate reactivity. This testing was developed by the Diagnostic Immunohistochemistry Laboratory of [facility]. It has not been cleared or approved by the FDA. The FDA has determined that such clearance or approval is not necessary. 3:38 PM CDT [facility] Tissue (Hemorrhoids) Collection / Unknown 10/19/2024 12:41 PM CDT 10/19/2024 1:44 PM CDT Crescencio Aguero MD PATHOLOGY/CYTOLOGY ORDERABLES F inal Result [facility] CLIA # [id number] [address] [place] [address] * [place] ANES INSERT ENDOTRACHEAL AIRWAY (10/19/2024 12:20 PM CDT) Narrative Deric Ha CRNA - 10/19/2024 12:20 PM CDT Deric Ha CRNA 10/19/2024 12:30 PM Airway Date/Time: 10/19/2024 12:20 PM Location: OR Plan: routine intubation Patient Identity Confirmed by: Verbally with patient and armband Staffing Performed: YOUTH COORDINATOR/CAA Authorized by: Oliver Reid MD Performed [...] Additional Procedure Information: atraumatic and dentition unchanged us Oliver Reid MD PROCEDURE/MINOR SURGICAL ORDERAB LES Final Result * PREPARE RED BLOOD CELLS (10/19/2024 6:29 AM CDT) Only the most recent of7 resultswithin the time period is included. Pathologist [facility] COMPONENT TYPE [id number] [facility] COMPONENT IDENTIFICATION [id number] [facility] UNIT ABO O [facility] UNIT RH NEG [facility] CROSSMATCH Compatible [facility] [place] COMPONENT STATUS Transfused ME [facility] [place] COMPONENT EXPIRATION DATE/TIME [id number] [facility] [place] COMPONENT CODING SYSTEM 9500 [facility] VOLUME, BLOOD PRODUCT 350 [facility] 10/19/2024 6:29 AM CDT us Andrey Tanner MD LAB TRANSFUSION ORDERAB LES Edited Result - Final [facility] CLIA#[id number] [address] [place] [address] [place] [address], * MAGNESIUM LEVEL (10/19/2024 5:52 AM CDT) Only the most recent of5 resultswithin the time period is included. Pathologist [facility] MAGNESIUM 2.2 1.6 - 2.4 mg/dL 10/19/2024 6:41 AM CDT [facility] Blood Venipuncture / Unknown 10/19/2024 5:52 AM CDT 10/19/2024 6:03 AM CDT us Jeb Alvarez III, DO CHEMISTRY ORDERABLES Zaida tejada Result [facility] CLIA # [id number] [address] [facility] [place] [address] * CELL COUNT WITH DIFFERENTIAL, BODY FLUID (10/18/2024 10:45 AM CDT) Only the most recent of2 resultswithin the time period is included. Pathologist [facility] APPEARANCE, BODY FLUID Clear 10/18/2024 11:34 AM CDT [facility] COLOR, FLD Colorless 10/18/2024 11:34 AM CDT [facility] TOTAL NUCLEATED CELLS, FLD (AUTO) 81 No Ref Range Estab /ul 10/18/2024 11:34 AM T [facility] TOTAL RBC'S, FLD (AUTO) <3,000 No Ref Range Estab /ul 10/18/2024 11:34 AM T [facility] NEUTROPHILS, FLD 10 No Ref Range Estab % 10/18/2024 11:34 AM CDT [facility] LYMPHOCYTE, FLD 26 No Ref Range Estab % 10/18/2024 11:34 AM CDT [facility] MONOCYTE/MACROP HUI, FLD 62 No Ref Range Estab % 10/18/2024 11:34 AM CDT [facility] MESOTHELIAL FLD 3 No Ref Range Estab % 10/18/2024 11:34 AM CDT [facility] Body fluid ENTIRE SEROUS MEMBRANE OF PERITONEUM / Unknown Collection / Unknown 10/18/2024 10:45 AM CDT 10/18/2024 10:49 AM CDT us Jeb O Alvarez III, DO BODY FLUIDS AND STOOLS Fi nal Result Performing Organization Address [facility] de Phone Number [facility] CLIA # [id number] [address] [address] * (ABNORMAL) C-REACTIVE PROTEIN (10/18/2024 7:13 AM CDT) CRP 10.6(H) 0.0 - 5.0 mg/L 10/18/2024 11:08 AM CDT [facility] Blood Venipuncture / Unknown 10/18/2024 7:13 AM CDT 10/18/2024 7:19 AM CDT us Jeb O Alvarez III, DO CHEMISTRY ORDERABLES Zaida l Result Performing Organization Address [facility] de Phone Number [facility] CLIA # [id number] [address] [address] * COLONOSCOPY REPORT (10/17/2024 12:29 PM CDT) Narrative Procedure Note Julianne David DO - 10/17/2024 12:28 PM CDT [facility] GI Patient Name: Arlene Quach Procedure [...] is a 59 year old female. [address] [place] [address] us Julianne Liz Milner DO GI PROCEDURE ORDERABLE S Final Result * PHOSPHORUS (10/17/2024 5:56 AM CDT) Only the most recent of2 resultswithin the time period is included. [facility] PHOSPHORUS 3.6 2.5 - 4.5 mg/dL 10/17/2024 7:44 AM CDT [facility] Blood Venipuncture / Unknown 10/17/2024 5:56 AM CDT 10/17/2024 6:05 AM CDT us Jonathan Sampson MD CHEMISTRY ORDERABLES Final Resu lt [facility] CLIA # [id number] [address] [place] [address] * GI PATHOGEN PCR PANEL (10/17/2024 3:10 AM CDT) Only the most recent of3 resultswithin the time period is included. [facility] GI Pathogen PCR panel NOT DETECTED No nucleic acids detected. 10/17/2024 4:45 AM CDT [facility] Stool STOOL SPECIMEN / Unknown Collection / Unknown 10/17/2024 3:10 AM CDT 10/17/2024 3:19 AM CDT Narrative [facility] - 10/17/2024 4:45 AM CDT The [...] duodenalis us Je Garnett MD MICROBIOLOGY - [facility] ORDERABLES Final Result Performing Organization Address [facility] Co de Phone Number [facility] # [id number] [address] [place] [address] * HELICOBACTER PYLORI ANTIGEN, STOOL (10/17/2024 3:10 AM CDT) H. PYLORI AG, STOOL SEE COMMENT 10/19/2024 12:37 PM CDT [facility] Comment: HELICOBACTER PYLORI AG, EIA, STOOL Micro Number: [id number] Test Status: Final Specimen Source: Stool Specimen [...] Performing Organization Information: Site ID: [facility] Address: [address] [address] [address] Director: Kiko Grimes us Mayo Taylor MD BODY FLUIDS AND STOOLS Fi nal Result Performing Organization Address City/[facility]/ZIP Co de Phone Number [facility] * UPPER ENDOSCOPY REPORT (10/16/2024 11:13 PM CDT) Narrative Procedure Note Mayo Taylor MD - 10/16/2024 11:12 PM CDT [facility] GI Patient Name: Arlene Quach Procedure [...] Withdrawal Time Scope In: Scope Out: [address] [place], [place] us Mayo Taylor MD GI PROCEDURE ORDERABLES F inal Result * LACTIC ACID (10/16/2024 8:42 PM CDT) Only the most recent of2 resultswithin the time period is included. LACTIC ACID 1.6 <=2.0 mmol/L 10/16/2024 9:57 PM CDT [facility] Blood BLOOD SPECIMEN / Unknown Venipuncture / Unknown 10/16/2024 8:42 PM CDT 10/16/2024 8:52 PM CDT us Je Garnett MD CHEMISTRY ORDERAB LES Final Result Performing Organization Address City/[facility]/ZIP Co de Phone Number [facility] CLIA # [id number] [address] [place] [address] * PTT (10/16/2024 8:42 PM CDT) Only the most recent of3 resultswithin the time period is included. Pathologist [facility] PTT 27.6 24.8 - 37.2 seconds 10/16/2024 9:37 PM CDT [facility] Blood Venipuncture / Unknown 10/16/2024 8:42 PM CDT 10/16/2024 8:54 PM CDT Narrative [facility] - 10/16/2024 9:37 PM CDT Therapeutic Range: Hi-level PE/DVT heparin protocol 80.1 - 95.0 sec Lo-level PE/DVT heparin protocol 70.1 - 85.0 sec Cardiac Heparin Protocol 70.1 - 100.0 sec us Je Garnett MD HEMATOLOGY ORDERA BLES Final Result Performing Organization Address City/[facility]/ZIP Co de Phone Number [facility] CLIA # [id number] [address] [facility] [place] [address] * (ABNORMAL) PROTIME-INR (10/16/2024 8:42 PM CDT) Only the most recent of5 resultswithin the time period is included. PROTIME 15.9(H) 12.7 - 14.9 Seconds 10/16/2024 9:37 PM CDT [facility] INR 1.2 0.8 - 1.2 10/16/2024 9:37 PM CDT [facility] Blood Venipuncture / Unknown 10/16/2024 8:42 PM CDT 10/16/2024 8:54 PM CDT [facility] - 10/16/2024 9:37 PM CDT Expected Values for INR: DVT/PE Goal INR 2.5; range 2.0 - 3.0 Valve Replacement Tissue Goal INR 2.5; range 2.0 - 3.0 Valve Replacement Mechanical Goal INR 3.0; range 2.5 - 3.5 POST-AR Goal INR 2.5; range 2.0 - 3.0 or Goal INR 3.0; range 2.5 - 3.5 Atrial Fibrillation Goal INR 2.5; range 2.0 - 3.0 Ischemic Stroke Goal INR 2.5; range 2.0 - 3.0 us Je Garnett MD HEMATOLOGY ORDERA BLES Final Result [facility] CLIA # [id number] [id number] [place], [place] [address] * TYPE AND SCREEN (10/16/2024 8:42 PM CDT) Only the most recent of2 resultswithin the time period is included. ABO GROUP O 10/16/2024 9:37 PM CDT [facility] RH (D) TYPE Negative 10/16/2024 9:37 PM CDT [facility] ANTIBODY SCREEN Negative 10/16/2024 9:37 PM CDT [facility] Blood Venipuncture / Unknown 10/16/2024 8:42 PM CDT 10/16/2024 8:51 PM CDT us Je Garnett MD BLOOD BANK ORDERA BLES Edited Result - Final [facility] CLIA#[id number] [address] [place] [address], * EKG 12-LEAD (10/16/2024 8:23 PM CDT) Only the most recent of2 resultswithin the time period is included. 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 : 1965 Requested By: Order Number: [id number] Reading MD: Chan Sanchez Measurements Intervals [place] Rate: 99 P: 62 [place]: 142 QRS: 87 QRSD: 78 T: 77 QT: 334 QTc: 428 Interpretive Statements Normal sinus rhythm Cannot rule out Inferior infarct, age undetermined Abnormal ECG Electronically Signed On 10-17-2024 6:50:50 CDT by Chan Sanchez Procedure Note Chan Sanchez MD - 10/17/2024 [place] [address] Test Date: 2024-10-16 Pat Name: ARLENE BAKERSS Department: 11 Room: 21 21 Gender: Female 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: [id number] : 1965 Requested By: Order Number: [id number] Reading MD: Chan Sanchez Measurements Intervals [place] Rate: 99 P: 62 [place]: 142 QRS: 87 QRSD: 78 T: 77 [...] or life-threatening deterioration of the following conditions: [employer] failure or compromise, 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 [...] FLD 0.9 g/dL 10/13/2024 2:14 PM CDT [facility] Body fluid ENTIRE SEROUS MEMBRANE OF PERITONEUM / Unknown Collection / Unknown 10/13/2024 12:51 PM CDT 10/13/2024 1:17 PM CDT [facility] - 10/13/2024 2:14 PM CDT Interpretive Criteria: Transudate: <2.0 g/dL Exudate: >2.0 g/dL The reference range and other method performance specifications are unavailable for this body fluid. Comparison of this result with the concentration in the blood, serum, or plasma is recommended. Colt Tavera MD BODY FLUIDS AND STOOLS Final Result Performing Organization Address City/[facility]/ZIP Co de Phone Number [facility] CLIA # [id number] [address] [address] * LACTATE DEHYDROGENASE, BODY FLUID (10/13/2024 12:51 PM CDT) LD, FLD 36 U/L 10/13/2024 2:05 PM CDT [facility] Body fluid ENTIRE SEROUS MEMBRANE OF PERITONEUM / Unknown Collection / Unknown 10/13/2024 12:51 PM CDT 10/13/2024 1:17 PM CDT [facility] - 10/13/2024 2:05 PM CDT Interpretive Criteria: [...] AND STOOLS Final Result Performing Organization Address [facility]/ZIP Co de Phone Number [facility] CLIA # [id number] [address] [id number] * GLUCOSE, BODY FLUID (10/13/2024 12:51 PM CDT) GLUCOSE, FLD 107 mg/dL 10/13/2024 2:05 PM CDT [facility] Body fluid ENTIRE SEROUS MEMBRANE OF PERITONEUM / Unknown Collection / Unknown 10/13/2024 12:51 PM CDT 10/13/2024 1:17 PM CDT [facility] - 10/13/2024 2:05 PM CDT Interpretive Criteria: Transudate: Fluid/Serum Ratio >0.5 Exudate: Fluid/Serum Ratio <0.5 or Fluid Glucose <60 mg/dL The reference range and other method performance specifications are unavailable for this body fluid. Comparison of this result with the concentration in the blood, serum or plasma is recommended. Colt Tavera MD BODY FLUIDS AND STOOLS Final Result Performing Organization Address [facility] Co de Phone Number [facility] CLIA # [id number] [address] [address] [place] [address] * ALBUMIN LEVEL, BODY FLUID (10/13/2024 12:51 PM CDT) ALBUMIN, FLD 0.8 g/dL 10/13/2024 2:14 PM CDT [facility] Body fluid ENTIRE SEROUS MEMBRANE OF PERITONEUM / Unknown Collection / Unknown 10/13/2024 12:51 PM CDT 10/13/2024 1:17 PM CDT [facility] - 10/13/2024 2:14 PM CDT Interpretive Criteria: Transudate: Serum-Ascites gradient >1.1 g/dL Exudate: Serum-Ascites gradient <1.1 g/dL The reference range and other method performance specifications are unavailable for this body fluid. Comparison of this result with the concentration in the blood, serum or plasma is recommended. Colt Tavera MD BODY FLUIDS AND STOOLS Final Result Performing Organization Address [facility]/ZIP Co de Phone Number [facility] CLIA # [id number] [address] [place] [address] [place] [address] * CYTOLOGY, NON GYNE (10/13/2024 12:51 PM CDT) CASE REPORT Medical Cytology Report Case: [id number] Authorizing Provider: Colt Tavera, Collected: 10/13/2024 12:51 PM Ordering Location: [facility] Received: 10/15/2024 08:00 AM Emergency Department Pathologist: Tamia Wolff MD Specimen: Peritoneal (ascitic) fluid 1:37 PM CDT [facility] FINAL DIAGNOSIS A. Peritoneal fluid, ThinPrep and cell block - No malignant cells identified - Mesothelial cells, histiocytes, and small lymphocytes present Tamia Wolff MD [id number] 1:37 PM CDT [facility] at 1337 CDT GROSS DESCRIPTION A. Peritoneal (ascitic) fluid - 110 ml yellow fluid processed for ThinPrep and cell block A2. 1:37 PM CDT [facility] CLINICAL INFORMATION No Dx found. 1:37 PM CDT [facility] COMMENT The V[employer] voice-activated dictation system may have been used [...] by the Diagnostic Immunohistochemistry Laboratory of [facility] in compliance with CLIA'88 regulations. Some of these tests rely on the use of analyte specific reagents and are subject to specific labeling requirements by the FDA. All controls show appropriate reactivity. This testing was developed by the Diagnostic Immunohistochemistry Laboratory of [facility]. It has not been cleared or approved by the FDA. The FDA has determined that such clearance or approval is not necessary. 1:37 PM CDT [facility] Body fluid ASCITIC FLUID SPECIMEN / Unknown Collection / Unknown 10/13/2024 12:51 PM CDT 10/15/2024 8:00 AM CDT Colt Tavera MD PATHOLOGY/CYTOLOGY ORD ERABLES Final Result [facility] CLIA # [id number] [id number] [facility] [place] [address] * CT ABDOMEN PELVIS W CONTRAST (10/13/2024 [...] - 60 U/L 10/13/2024 9:47 AM CDT [facility] Blood Venipuncture / Unknown 10/13/2024 9:09 AM CDT 10/13/2024 9:13 AM CDT us Colt Tavera MD CHEMISTRY ORDERABLES F inal Result [facility] CLIA # [id number] [address] [facility] [place] [address] * UPPER ENDOSCOPY REPORT (10/08/2024 10:02 AM CDT) Narrative Procedure Note Carmine Dubois MD - 10/08/2024 10:02 AM CDT [facility] GI Patient Name: Arlene Quach Procedure [...] Withdrawal Time Scope In: Scope Out: [address] [place], [place] Carmine Dubois MD GI PROCEDURE ORDERA BLES Final Result * VERIFICATION BLOOD GROUP (10/06/2024 11:05 PM CDT) ABO GROUP O 10/07/2024 12:13 AM CDT [facility] RH (D) TYPE Negative 10/07/2024 12:13 AM CDT [facility] Blood Venipuncture / Unknown 10/06/2024 11:05 PM CDT 10/06/2024 11:10 PM CDT Alessandra Jolley DO BLOOD BANK ORDERABLES Final Result [facility] CLIA#[id number] [address] [place] [address], * COLONOSCOPY REPORT (10/03/2024 8:48 AM CDT) Narrative Procedure Note Carmine Dickerson DO - 10/03/2024 8:48 AM CDT [facility] GI Patient Name: Arlene Quach Procedure [...] AM Scope Out: 8:42:29 AM [address] [place] Carmine Dickerson DO GI PROCEDURE ORDERABLES Final Result * UPPER ENDOSCOPY REPORT (10/03/2024 8:36 AM CDT) Narrative Procedure Note Carmine Dickerson DO - 10/03/2024 8:36 AM CDT [facility] GI Patient Name: Arlene Quach Procedure [...] Time Scope In: Scope Out: [address] [place], [place] Christopher D Jayla DO GI PROCEDURE ORDERABLES Final Result * [...] Last Indicated C Diff 10/07/2024 10/07/2024 Insurance * Guarantor: Arlene Quach Account Type Relation to Patient Date of Phone Billing Address Personal/Family Self 1965 [address] [facility] [address] [place] [address] [employer] [facility] [place] Advance Directives For more information, please contact: [phone] * Full Code (Latest Code Status on [...] 7:38 AM 10/03/2024 11:18 AM Care Teams Purification Operator Relationship Specialty Start Date End Date Tawnya Lane DO [address] [place] [phone] PCP - General Family Practice 10/24/24
--- OUTSIDE RECORDS SUMMARY | 2024-11-05 08:20 | XMS_ITS | Encounter Summary ---
Author Organization [facility] Address [address] [place] [address] Care Team Providers Care Therapy Coordinator Name Role Phone Unavailable Primary Care Provider Unavailabl e Encounter Details Date Type Department Care Team (Latest Contact Info) Description 02/10/2006 Outpatient Historical [facility] [address] [place] [address] Donaldo Houston MD [address] [place] [phone] Sprain Cruciate Lig Knee (Primary Dx) Social History Tobacco Use Types Packs/Day Years Used Date Smoking Tobacco: Never Assessed Comments Unknown Sex and Gender Information Value Date Recorded Sex Assigned at Not on file Legal Sex Female 6:08 AM [employer] Gender Identity Not on file Sexual Orientation Not on file documented as of this encounter Plan of Treatment Not on file documented as of this encounter Visit Diagnoses Diagnosis Sprain cruciate lig knee- Primary Sprain of cruciate ligament of knee documented in this encounter
[2024-11-05 08:31] VITALS: BP 93/64; PULSE 84; RESP 16; TEMP 36.8; O2SAT 97; BMI 18.4
[2024-11-05 08:43] LABS: Hematocrit 27.4 % (36-47); Hemoglobin 8.10 g/dL (11.27-16.99); Mean Corpuscular HGB Conc 29.6 g/dL (30-55); Mean Corpuscular Hemoglobin 24.3 pg (27-33); Mean Corpuscular Volume 82.0 fl (85-98); Nucleated Red Blood Cells % 0.8 %; Platelet Count 374 10^3/cmm (157-399); Red Blood Count 3.34 10^6/uL (3.85-5.65); White Blood Count 4.98 10^3/uL (3.29-11.43)
[2024-11-05 08:53] LABS: INR 0.99 (0.8-1.2); Prothrombin Time 13.80 SECONDS (12.1-14.9)
[2024-11-05 08:58] LABS: Alanine Aminotransferase 16 U/L (0-33); Albumin Level 3.6 g/dL (3.5-5.2); Alkaline Phosphatase 134 U/L (35-105); Anion Gap 14.2 (5-19); Aspartate Amino Transferase 25 U/L (0-32); Blood Urea Nitrogen 14 mg/dL (8-23); Calcium 8.9 mg/dL (8.5-10.5); Carbon Dioxide 25 mmol/L (22-29); Chloride 101 mmol/L (98-107); Creatinine Clr Calc Pharmacy 84.1899; Globulin 3.1 g/dL (1.3-4.6); Glucose 114 mg/dL (65-115); Osmolality Calculated 283 mOsm/kg (285-295); Potassium 4.2 mmol/L (3.5-5.1); Sodium 136 mmol/L (136-145); Total Protein 6.7 g/dL (6.6-8.7)
--- NOTE | 2024-11-05 10:34 | W.ED.ABDPA2 ---
HPI - Abdominal Pain General: Chief Complaint: Abdominal Pain Stated Complaint: stomach drained Time Seen by Provider: 11/05/24 08:03 History of Present Illness: 59-year-old male presents emergency room requesting paracentesis. She has a known history of cirrhosis. Previous notes were reviewed. She says she is having a little bit of abdominal discomfort and her last paracentesis was 10 days ago she has not had any fever sweats or chills. Associated Symptoms: Denies chills, dysuria and fever(s) Related Data Home Medications ?Medication ?Instructions ?Recorded ?Confirmed cetirizine 10 mg tablet (Allergy 10 mg PO DAILY 03/19/23 11/05/24 Relief (cetirizine)) trazodone 50 mg tablet 50 mg PO BEDTIME 03/19/23 11/05/24 hydrocodone 5 mg-acetaminophen 325 1 tab PO Q12H PRN Pain 10/06/24 11/05/24 mg tablet methocarbamol 500 mg tablet 500 mg PO DAILY PRN Pain 10/06/24 11/05/24 Held on 10/14/24. Instructions: Resume on 10/22/24. carvedilol 6.25 mg tablet 6.25 mg PO DAILY 10/14/24 11/05/24 levothyroxine 50 mcg tablet 50 mcg PO DAILY 10/14/24 11/05/24 tizanidine 4 mg tablet 4 mg PO DAILY PRN muscle spasms 10/14/24 11/05/24 Held on 10/14/24. Instructions: Resume on 10/22/24. pantoprazole 40 mg tablet,delayed 40 mg PO BID 10/16/24 11/05/24 release lactulose 10 gram/15 mL oral 30 ml PO DAILY 11/05/24 11/05/24 solution (Constulose) oxycodone-acetaminophen 5 mg-325 1 tab PO Q4H PRN Moderate Pain 11/05/24 11/05/24 mg tablet (Scale Score 5-6) Previous Rx's ?Medication ?Instructions ?Recorded spironolactone 50 mg tablet 50 mg PO QAM #30 tabs 10/29/24 Allergies Allergy/AdvReac Type Severity Reaction Status Date / Time Sulfa (Sulfonamide Allergy ALGY-Rash Verified 11/05/24 11:22 Antibiotics) Review of Systems Const: Denies: fever(s) or chills Card: Denies: chest pain Resp: Denies: dyspnea GI: Denies: abdominal pain : Denies: dysuria, urinary frequency or urinary urgency Musc: Denies: neck pain or back pain Skin/Breast: Denies: rash PFSH ED PFSH: Medical History Hypothyroidism Iron deficiency anemia due to chronic blood loss Left axillary pain Helicobacter pylori gastritis Hereditary hemorrhagic telangiectasia Anterior cruciate ligament complete tear CVA (cerebral vascular accident) GERD (gastroesophageal reflux disease) Surgical History H/O esophagogastroduodenoscopy (05/01/21) cautery of 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 4 H/O esophagogastroduodenoscopy (06/03/20) 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 History of lung surgery 2009 History of colonoscopy (06/03/20) Cautery of AVM Hx of brain surgery History of eye surgery History of knee surgery History of hip surgery Hx of removal of ovary Social History Smoking and tobacco/nicotine status: never used tobacco/nicotine Quit status (tobacco/nicotine): has quit using Year quit tobacco: Nov 2021 Former quit date comment: Smoked for 40+ years Alcohol intake: current Alcohol intake frequency: few times a week Substance/Drug Use: never Marital status: Number of children: 1 Current occupational status: disabled Physical Exam Const: COMMON NORMALS: no acute distress GENERAL APPEARANCE: cooperative and comfortable ORIENTATION/CONSCIOUSNESS: Yes awake, Yes oriented to person, Yes oriented to place and Yes oriented to time HENMT: COMMON NORMALS: normocephalic, atraumatic and hearing grossly normal bilaterally HEAD & SCALP: normocephalic and atraumatic Resp: COMMON NORMALS: normal respiratory effort, No retractions, No use of accessory muscles and clear to auscultation bilaterally AUSCULTATION: clear to auscultation bilaterally Cardio: COMMON NORMALS: regular rate, regular rhythm and No murmurs present (Cardio) RATE: regular rate RHYTHM: regular rhythm GI: COMMON NORMALS: Soft to palpation and No hepatosplenomegaly present AUSCULTATION: Yes normoactive bowel sounds PALPATION: Yes Soft to palpation, No Tenderness to palpation present (GI), No Guarding due to palpation present (GI) and Yes No hepatosplenomegaly present Extremity: COMMON NORMALS: normal to inspection, capillary refill normal, no clubbing, cyanosis or edema, no calf tenderness and no pedal edema Neuro: SENSORIUM/ORIENTATION: Yes oriented to person, Yes oriented to place and Yes oriented to time Skin: COMMON NORMALS: no rashes or lesions noted GENERAL SKIN EXAM: no rashes or lesions noted Course Vital Signs: Vital signs: Vital Signs Temperature 98.3 F 11/05/24 08:31 Pulse Rate 73 11/05/24 11:04 Respiratory Rate 16 11/05/24 08:31 Blood Pressure 102/67 11/05/24 11:04 Pulse Oximetry 97 11/05/24 11:04 Oxygen Delivery Me thod Room Air 11/05/24 08:31 MDM - Abdominal Pain Medical Decision Making Exam is unremarkable. She does not have an elevated white count no fever. Abdomen is not particularly tense. Will discharge her home and make arrangements for an outpatient paracentesis as she is in the process of getting set up with primary care. Medical Records I reviewed the patient's medical records. Lab Data I reviewed the patient's lab results. 11/05/24 08:36 11/05/24 08:36 Labs/Radiology: Laboratory Results WBC 4.98 10^3/uL (3.29-11.43) 11/05/24 08:36 RBC 3.34 10^6/uL (3.85-5.65) L 11/05/24 08:36 Hgb 8.10 g/dL (11.27-16.99) L 11/05/24 08:36 Hct 27.4 % (36-47) L 11/05/24 08:36 MCV 82.0 fl (85-98) L 11/05/24 08:36 MCH 24.3 pg (27-33) L 11/05/24 08:36 MCHC 29.6 g/dL (30-55) L 11/05/24 08:36 RDW 19.9 % (12.1-15.1) H 11/05/24 08:36 Plt Count 374 10^3/cmm (157-399) 11/05/24 08:36 MPV 10.0 fL (7.4-10.4) 11/05/24 08:36 Neut % (Auto) 68.0 % 11/05/24 08:36 Lymph % (Auto) 15.5 % 11/05/24 08:36 [place] % (Auto) 15.1 % 11/05/24 08:36 Eos % (Auto) 0.4 % 11/05/24 08:36 Baso % (Auto) 0.6 % 11/05/24 08:36 Neut # (Auto) 3.39 10^3/uL (1.8-7.7) 11/05/24 08:36 Lymph # (Auto) 0.8 10^3/uL (0.8-4.8) 11/05/24 08:36 [place] # (Auto) 0.8 10^3/uL (0.2-0.9) 11/05/24 08:36 Eos # (Auto) 0.0 10^3/uL (0.0-0.8) 11/05/24 08:36 Baso # (Auto) 0.0 10^3/uL (0.0-0.1) 11/05/24 08:36 Nucleated RBC % (auto) 0.8 % 11/05/24 08:36 Nucleated RBCs # 0.0 /100WBC 11/05/24 08:36 PT 13.80 SECONDS (12.1-14.9) 11/05/24 08:36 INR 0.99 (0.8-1.2) 11/05/24 08:36 Sodium 136 mmol/L (136-145) 11/05/24 08:36 Potassium 4.2 mmol/L (3.5-5.1) 11/05/24 08:36 Chloride 101 mmol/L (98-107) 11/05/24 08:36 Carbon Dioxide 25 mmol/L (22-29) 11/05/24 08:36 Anion Gap 14.2 (5-19) 11/05/24 08:36 BUN 14 mg/dL (8-23) 11/05/24 08:36 Creatinine 0.7 mg/dL (0.5-0.9) 11/05/24 08:36 GFR Calculation 85.4 mL/min (90-130) L 11/05/24 08:36 Glucose 114 mg/dL (65-115) 11/05/24 08:36 Calculated Osmolality 283 mOsm/kg (285-295) L 11/05/24 08:36 Calcium 8.9 mg/dL (8.5-10.5) 11/05/24 08:36 Total Bilirubin 0.3 mg/dL (0.15-1.2) 11/05/24 08:36 AST 25 U/L (0-32) 11/05/24 08:36 ALT 16 U/L (0-33) 11/05/24 08:36 Alkaline Phosphatase 134 U/L (35-105) H 11/05/24 08:36 Total Protein 6.7 g/dL (6.6-8.7) 11/05/24 08:36 Albumin 3.6 g/dL (3.5-5.2) 11/05/24 08:36 Globulin 3.1 g/dL (1.3-4.6) 11/05/24 08:36 No radiology studies performed this visit Discharge Plan Discharge Patient Disposition: Home Clinical Impression: Cirrhosis of liver Abdominal ascites Qualifiers: Ascites type: other type Qualified Code(s): R18.8 - Other ascites Condition: Stable Prescriptions: No Action carvedilol 6.25 mg tablet 6.25 mg PO DAILY tizanidine 4 mg tablet 4 mg PO DAILY PRN (Reason: muscle spasms) Patient Comments: patient hasn't been taking levothyroxine 50 mcg tablet 50 mcg PO DAILY spironolactone 50 mg tablet 50 mg PO QAM Qty: 30 0RF oxycodone-acetaminophen 5-325 mg tablet 1 tab PO Q4H PRN (Reason: Moderate Pain (Scale Score 5-6)) lactulose [Constulose] 10 gram/15 mL solution 30 ml PO DAILY trazodone 50 mg tablet 50 mg PO BEDTIME cetirizine [Allergy Relief (cetirizine)] 10 mg tablet 10 mg PO DAILY methocarbamol 500 mg tablet 500 mg PO DAILY PRN (Reason: Pain) hydrocodone-acetaminophen 5-325 mg tablet 1 tab PO Q12H PRN (Reason: Pain) pantoprazole 40 mg tablet,delayed release (DR/EC) 40 mg PO BID Discharge Orders: Discharge ED (Routine); Ordered 11/05/24 Ordered By: Randal Ward Referrals: Emeli Moseley DO [Primary Care Provider, Family Practice] Discharge Diet: Usual diet Discharge Activity: Resume usual activity Patient Instructions: Opioid Safety, Pain Management, Patient Portal & Mani Instructions Activity Restrictions/Additional Instructions: [facility]. It is very important that you follow up as instructed or that you return to the Emergency Department should you have concerns or if your condition changes or worsens in any way. Emergency department visits are focused on emergent conditions, in some cases you may require further evaluation on an outpatient basis. You were seen in the emergency room with complaints of ascites. Your abdomen was not significantly distended or tense who recommended outpatient evaluation for paracentesis. Will discharge you home case management is making arrangements for the outpatient paracentesis. (Please note that included in your discharge packet is information concerning opioid safety and pain management. This information is given to all patients were discharged from the ER regardless of their discharge diagnosis or the medicines they usually take or are prescribed.) Print Language: Citizen Of [place] Coding Level of Care Code ED Information Technology Manager for Irma Montanez
[2024-11-05 11:04] VITALS: BP 102/67; PULSE 73; O2SAT 97
== END 2024-11-05 11:05 | disposition home or self-care (01) ==
PROVIDERS: Emergency Provider Family Medicine; PCP Family Medicine
DX: K74.60 Unspecified cirrhosis of liver (principal); R18.8 Other ascites; D50.0 Iron deficiency anemia secondary to blood loss (chronic)
CPT/HCPCS: 36415; 80053; 85025; 85610; 99283

== ENCOUNTER 2024-11-06 11:15 | Day surgery (SDC) | payer MEDICARE, MEDICAID, SELFPAY ==
[2024-11-06 11:29] VITALS: BP 116/71; PULSE 92; RESP 18; TEMP 36.3; O2SAT 95; BMI 18.4
--- NOTE | 2024-11-06 11:31 | US_ITS ---
WS: [email or web address] ULTRASOUND-GUIDED PARACENTESIS CLINICAL INFORMATION: r18.8 COMPARISON: None. Procedure Informed consent: The risks, benefits, and alternatives of the procedure were discussed with the patient. Verbal and written consent was obtained. Timeout: A timeout was performed to confirm the correct patient, procedure, and site. Preparation: A suitable skin site was identified. The patient was prepped and draped in usual sterile fashion. Lidocaine 1% was used for local anesthesia. Catheter: 4 Amharic One-step Yueh catheter. Side: LEFT Lower quadrant. Fluid Volume: 1900 ml Color: clear DISPOSITION: Discarded safely. Complications: None. Patient disposition: Discharged from the department in stable condition. US/[place]acentesis abd w [id number] IMPRESSION: Uncomplicated ultrasound-guided paracentesis. Removal of 1900cc
== END 2024-11-06 12:40 | disposition home or self-care (01) ==
LOC: GILAB 11:16
PROVIDERS: Radiology Neuroradiology; PCP Family Medicine; Visit Provider Family Medicine
PROC: (CPT 49082; principal; 2024-11-06 11:30)
DX: R18.8 Other ascites (principal)
CPT/HCPCS: 49083

== ENCOUNTER 2024-11-20 11:13 | Day surgery (SDC) | payer MEDICARE, MEDICAID, SELFPAY ==
[2024-11-20 11:43] VITALS: BP 128/92; PULSE 72; RESP 18; TEMP 36.1; O2SAT 95; BMI 19.2
--- NOTE | 2024-11-20 11:45 | US_ITS ---
WS: [email or web address] ULTRASOUND-GUIDED PARACENTESIS CLINICAL INFORMATION: ascites COMPARISON: None. Procedure Informed consent: The risks, benefits, and alternatives of the procedure were discussed with the patient. Verbal and written consent was obtained. Timeout: A timeout was performed to confirm the correct patient, procedure, and site. Preparation: A suitable skin site was identified. The patient was prepped and draped in usual sterile fashion. Lidocaine 1% was used for local anesthesia. Catheter: 4 Hungarian One-step Yueh catheter. Side: LEFT Lower quadrant. Fluid Volume: 3400 ml Color: clear DISPOSITION: Discarded safely. Complications: None. Patient disposition: Discharged from the department in stable condition. US/US paracentesis abd w [id number] IMPRESSION: Uncomplicated ultrasound-guided paracentesis. Removal of 3400cc
[2024-11-20 13:54] LABS: Mononuclear #, Pertinoneal Fl 0.095 10^3/uL; Mononuclear %, Pertinoneal Fl 94.100 %; Polynuclear # Cells, Perit 0.006 10^3/uL; Polynuclear % Cells,Perit 5.900 %; RBC Pertioneal Fluid 0 10^3/uL; WBC Peritoneal Fluid 101 /uL
[2024-11-20 14:04] LABS: Appearance, Peritoneal Fluid Cloudy (Clear); Color, Peritoneal Fluid Pale Yellow (Pale Yellow); Cyto Order Verification Order Verified
[2024-11-20 14:05] LABS: Pathology Referral Yes
== END 2024-11-20 13:45 | disposition home or self-care (01) ==
LOC: GILAB 11:16
PROVIDERS: Radiology Neuroradiology; PCP Family Medicine
PROC: (CPT 49082; principal; 2024-11-20 13:00)
DX: R18.8 Other ascites (principal)
CPT/HCPCS: 49083; 80503; 88112; 88305; 89050

== ENCOUNTER 2024-12-04 11:20 | Day surgery (SDC) | payer MEDICARE, MEDICAID, SELFPAY ==
--- NOTE | 2024-12-04 11:56 | US_ITS ---
WS: [email or web address] ULTRASOUND-GUIDED PARACENTESIS CLINICAL INFORMATION: ascites COMPARISON: None. Procedure Informed consent: The risks, benefits, and alternatives of the procedure were discussed with the patient. Verbal and written consent was obtained. Timeout: A timeout was performed to confirm the correct patient, procedure, and site. Preparation: A suitable skin site was identified. The patient was prepped and draped in usual sterile fashion. Lidocaine 1% was used for local anesthesia. Catheter: 4 Wolof One-step Yueh catheter. Side: LEFT lower quadrant. Fluid Volume: 3800 ml Color: Clear yellow DISPOSITION: Discarded safely. Complications: None. Patient disposition: Discharged from the department in stable condition. US/US [place]acentesis abd w [id number] IMPRESSION: Uncomplicated ultrasound-guided paracentesis. Removal of 3800cc
[2024-12-04 12:34] VITALS: BP 110/59; PULSE 83; RESP 18; TEMP 37.1; O2SAT 95
== END 2024-12-04 13:27 | disposition home or self-care (01) ==
PROVIDERS: Radiology Neuroradiology; PCP Family Medicine
PROC: (CPT 49082; principal; 2024-12-04 12:30)
DX: R18.8 Other ascites (principal)
CPT/HCPCS: 49083

== ENCOUNTER 2024-12-13 11:19 | Day surgery (SDC) | payer MEDICARE, MEDICAID, SELFPAY ==
[2024-12-13 11:31] VITALS: BP 105/69; PULSE 69; RESP 18; TEMP 36.4; O2SAT 98; BMI 18.4
--- NOTE | 2024-12-13 11:40 | US_ITS ---
WS: [id number] ULTRASOUND-GUIDED THERAPEUTIC PARACENTESIS Procedure, risks, and complications have been explained to the patient. Consent is obtained. Utilizing aseptic technique and 1% buffered lidocaine, a small dermatome was made through which a 5 Korean Yueh catheter was inserted. Approximately 3100 ml of light yellow peritoneal fluid was obtained without difficulty. No complications encountered. US/US paracentesis abd w [id number] IMPRESSION: Uncomplicated paracentesis yielding 3100 ml of peritoneal fluid.
== END 2024-12-13 12:30 | disposition home or self-care (01) ==
LOC: GILAB 11:20
PROVIDERS: Radiology Diagnostic Radiology; PCP Family Medicine
PROC: (CPT 49082; principal; 2024-12-13 13:00)
DX: R18.8 Other ascites (principal)
CPT/HCPCS: 49083

== ENCOUNTER → 2024-12-20 11:10 | Day surgery (SDC) | payer MEDICARE, MEDICAID, SELFPAY ==
[2024-12-20 11:33] VITALS: BP 127/74; PULSE 68; RESP 18; TEMP 36.6; O2SAT 100; BMI 18.4
--- NOTE | 2024-12-20 11:36 | US_ITS ---
WS: [email or web address] ULTRASOUND-GUIDED PARACENTESIS CLINICAL INFORMATION: cIRRHOSIS OF LIVER WITH ASCITES Procedure Informed consent: The risks, benefits, and alternatives of the procedure were discussed with the patient. Verbal and written consent was obtained. Timeout: A timeout was performed to confirm the correct patient, procedure, and site. Preparation: A suitable skin site was identified. The patient was prepped and draped in usual sterile fashion. Lidocaine 1% was used for local anesthesia. Catheter: 4 Maori One-step Yueh catheter. Side: LEFT lower quadrant. Fluid Volume: 2100 ml Color: Clear yellow DISPOSITION: Discarded safely. Complications: None. Patient disposition: Discharged from the department in stable condition. US/US paracentesis abd w [id number] IMPRESSION: Uncomplicated ultrasound-guided paracentesis. Removal of 2100 cc
[2024-12-20 13:20] LABS: Mononuclear #, Pertinoneal Fl 0.170 10^3/uL; Mononuclear %, Pertinoneal Fl 97.100 %; Polynuclear # Cells, Perit 0.005 10^3/uL; Polynuclear % Cells,Perit 2.900 %; RBC Pertioneal Fluid 1 10^3/uL; WBC Peritoneal Fluid 175 /uL
[2024-12-20 13:30] LABS: Appearance, Peritoneal Fluid Cloudy (Clear); Color, Peritoneal Fluid Pale Yellow (Pale Yellow); Cyto Order Verification No Order; Pathology Referral Yes
[2024-12-20 13:48] LABS: Albumin Peritoneal Fluid 0.9 g/dL
== END ==
LOC: GILAB 11:12
PROVIDERS: Radiology Neuroradiology; PCP Family Medicine
PROC: (CPT 49082; principal; 2024-12-20 12:00)
DX: K74.60 Unspecified cirrhosis of liver (principal); R18.8 Other ascites
CPT/HCPCS: 49083; 80503; 82042; 83615; 87070; 87075; 87205; 89050

== ENCOUNTER → 2024-12-25 13:35 | Outpatient (BNVA) | payer MEDICARE, MEDICAID, SELFPAY | PROVIDERS: PCP Family Medicine; Visit Provider Family Medicine | DX: E03.9 Hypothyroidism, unspecified (principal); A04.72 Enterocolitis due to Clostridium difficile, not specified as recurrent | CPT/HCPCS: 80053; 84439; 84443 ==

== ENCOUNTER 2024-12-27 10:52 | Outpatient (CLI) | payer MEDICARE, MEDICAID, SELFPAY ==
[2024-12-27 13:07] LABS: C.Diff PCR (Lab) POSITIVE (Negative)
[2024-12-27 13:38] LABS: Clostridioides Difficile Toxin NEGATIVE (Negative)
== END 2024-12-27 10:53 | disposition home or self-care (01) ==
LOC: LAB 10:53
PROVIDERS: PCP Family Medicine; Visit Provider Family Medicine
DX: A04.72 Enterocolitis due to Clostridium difficile, not specified as recurrent (principal)
CPT/HCPCS: 87324; 87493

== ENCOUNTER 2024-12-27 11:07 | Day surgery (SDC) | payer MEDICARE, MEDICAID, SELFPAY ==
[2024-12-27 11:33] VITALS: BP 110/62; PULSE 63; RESP 18; TEMP 36.5; O2SAT 97; BMI 18.5
--- NOTE | 2024-12-27 11:58 | US_ITS ---
WS: [email or web address] ULTRASOUND-GUIDED THERAPEUTIC PARACENTESIS Procedure, risks, and complications have been explained to the patient. Consent is obtained. Utilizing aseptic technique and 1% buffered lidocaine, a small dermatome was made through which a 5 Kenyan Yueh catheter was inserted. Approximately 1800 ml of clear peritoneal fluid was obtained without difficulty. No complications encountered. US/US paracentesis abd w [id number] IMPRESSION: Uncomplicated paracentesis yielding 1800 ml of peritoneal fluid.
== END 2024-12-27 12:42 | disposition home or self-care (01) ==
LOC: GILAB 11:08
PROVIDERS: Radiology Diagnostic Radiology; PCP Family Medicine
PROC: (CPT 49082; principal; 2024-12-27 12:30)
DX: R18.8 Other ascites (principal)
CPT/HCPCS: 49083

== ENCOUNTER → 2025-01-03 10:47 | Day surgery (SDC) | payer MEDICARE, MEDICAID, SELFPAY ==
[2025-01-03 11:00] VITALS: BP 118/64; PULSE 57; RESP 16; TEMP 36.4; O2SAT 97
--- NOTE | 2025-01-03 11:08 | US_ITS ---
WS: [email or web address] ULTRASOUND-GUIDED PARACENTESIS CLINICAL INFORMATION: cirrosis of liver with ascites COMPARISON: None. Procedure Informed consent: The risks, benefits, and alternatives of the procedure were discussed with the patient. Verbal and written consent was obtained. Timeout: A timeout was performed to confirm the correct patient, procedure, and site. Preparation: A suitable skin site was identified. The patient was prepped and draped in usual sterile fashion. Lidocaine 1% was used for local anesthesia. Catheter: 4 Turkish One-step nkf-pharmaeh catheter. Side: LEFT lower quadrant. Fluid Volume: 2250 ml Color: Clear yellow DISPOSITION: Discarded safely. Complications: None. Patient disposition: Discharged from the department in stable condition. US/US paracentesis abd w [id number] IMPRESSION: Uncomplicated ultrasound-guided paracentesis. Removal of 2250 cc
== END ==
LOC: GILAB 10:47
PROVIDERS: Radiology Neuroradiology; PCP Family Medicine
PROC: (CPT 49082; principal; 2025-01-03 12:00)
DX: K74.60 Unspecified cirrhosis of liver (principal); R18.8 Other ascites
CPT/HCPCS: 49083

== ENCOUNTER 2025-01-07 08:12 | Outpatient (CLI) | payer MEDICARE, MEDICAID, SELFPAY ==
--- NOTE | 2025-01-07 08:45 | CT_ITS ---
WS: [email or web address] LDCT LUNG CANCER SCREENING TECHNIQUE: Noncontrast CT of the chest with coronal and sagittal reformatted images. CLINICAL INFORMATION: screening COMPARISON: CTA 2020 DLP: 47.39 mGy.cm DIvol: Mean CTDIvol: 0.80 (mGy) All CT scans at [facility] use at least one of these dose optimization techniques: automated exposure control; mA and/or kV adjustment per patient size (includes targeted exams where dose is matched to clinical indication); or iterative reconstruction. FINDINGS: Patient with history of pulmonary AVM's. Evidence of prior embolized AVM in the LEFT lower lobe with embolization coils. Lobulated lesion in the LEFT upper lobe likely AVM similar to 2020 measuring 7 mm. Few tiny micronodules in the RIGHT lower lobe. No mediastinal or hilar lymphadenopathy. Aortic calcification. No axillary lymphadenopathy. Partially visualized hepatic cirrhosis with small volume ascites in the upper abdomen. Mesenteric edema. Hypertrophic changes thoracic spine. CT/CT lung screening [id number] IMPRESSION: LUNG-RADS: 2-Benign Appearance or Behavior FOLLOW UP: 12 Month: Continue annual screening with LDCT
== END 2025-01-07 08:13 | disposition home or self-care (01) ==
LOC: RAD 08:13
PROVIDERS: PCP Family Medicine; Visit Provider Family Medicine
DX: Z12.2 Encounter for screening for malignant neoplasm of respiratory organs (principal); F17.219 Nicotine dependence, cigarettes, with unspecified nicotine-induced disorders; Z86.711 Personal history of pulmonary embolism; I70.0 Atherosclerosis of aorta; R91.8 Other nonspecific abnormal finding of lung field; K70.31 Alcoholic cirrhosis of liver with ascites; I88.0 Nonspecific mesenteric lymphadenitis; M51.34 Other intervertebral disc degeneration, thoracic region
CPT/HCPCS: 71271

== ENCOUNTER → 2025-01-10 11:19 | Day surgery (SDC) | payer MEDICARE, MEDICAID, SELFPAY ==
--- NOTE | 2025-01-10 11:32 | US_ITS ---
WS: [email or web address] ULTRASOUND-GUIDED THERAPEUTIC PARACENTESIS Procedure, risks, and complications have been explained to the patient. Consent is obtained. Utilizing aseptic technique and 1% buffered lidocaine, a small dermatome was made through which a 5 Dominican Yueh catheter was inserted. Approximately 1550 ml of clear peritoneal fluid was obtained without difficulty. No complications encountered. US/US paracentesis abd w [id number] IMPRESSION: Uncomplicated paracentesis yielding 1550 ml of peritoneal fluid.
[2025-01-10 11:33] VITALS: BMI 18.4
[2025-01-10 11:34] VITALS: BP 119/64; PULSE 73; RESP 18; TEMP 36.6; O2SAT 99
== END ==
LOC: GILAB 11:20
PROVIDERS: Radiology Diagnostic Radiology; PCP Family Medicine
PROC: (CPT 49082; principal; 2025-01-10 12:30)
DX: R18.8 Other ascites (principal)
CPT/HCPCS: 49083

== ENCOUNTER 2025-01-15 12:12 | Day surgery (SDC) | payer MEDICARE, MEDICAID, SELFPAY ==
--- NOTE | 2025-01-15 12:19 | US_ITS ---
WS: [email or web address] ULTRASOUND ABDOMEN LIMITED CLINICAL INFORMATION: cirrhosis of liver with ascites COMPARISON: None. FINDINGS: Minimal ascites. Insufficient fluid for paracentesis. No safe pocket localized. US/US abdomen lmt fluid [id number] IMPRESSION: Insufficient fluid for paracentesis at this time.
[2025-01-15 12:46] VITALS: BP 130/72; PULSE 72; RESP 17; O2SAT 98; BMI 18.4
== END 2025-01-15 12:57 | disposition home or self-care (01) ==
PROVIDERS: Radiology Neuroradiology; PCP Family Medicine
DX: K74.60 Unspecified cirrhosis of liver (principal); R18.8 Other ascites
CPT/HCPCS: 49083; 76705

== ENCOUNTER 2025-01-24 11:12 | Day surgery (SDC) | payer MEDICARE, MEDICAID, SELFPAY ==
[2025-01-24 11:30] VITALS: BP 113/69; PULSE 66; RESP 18; TEMP 36.8; O2SAT 99; BMI 18.3
--- NOTE | 2025-01-24 11:36 | US_ITS ---
WS: [email or web address] ULTRASOUND-GUIDED THERAPEUTIC PARACENTESIS Procedure, risks, and complications have been explained to the patient. Consent is obtained. Utilizing aseptic technique and 1% buffered lidocaine, a small dermatome was made through which a 5 Bahamian Yueh catheter was inserted. Approximately 2500 ml of clear peritoneal fluid was obtained without difficulty. No complications encountered. US/US paracentesis abd w [id number] IMPRESSION: Uncomplicated paracentesis yielding 2500 ml of peritoneal fluid.
== END 2025-01-24 12:58 | disposition home or self-care (01) ==
LOC: GILAB 11:13
PROVIDERS: Radiology Diagnostic Radiology; PCP Family Medicine
PROC: (CPT 49082; principal; 2025-01-24 12:00)
DX: K74.60 Unspecified cirrhosis of liver (principal); R18.8 Other ascites
CPT/HCPCS: 49083

== ENCOUNTER 2025-01-31 11:25 | Day surgery (SDC) | payer MEDICARE, MEDICAID, SELFPAY ==
--- NOTE | 2025-01-31 11:31 | US_ITS ---
WS: [email or web address] ULTRASOUND-GUIDED PARACENTESIS CLINICAL INFORMATION: cirrhosis of liver with ascites COMPARISON: None. Procedure Informed consent: The risks, benefits, and alternatives of the procedure were discussed with the patient. Verbal and written consent was obtained. Timeout: A timeout was performed to confirm the correct patient, procedure, and site. Preparation: A suitable skin site was identified. The patient was prepped and draped in usual sterile fashion. Lidocaine 1% was used for local anesthesia. Catheter: 4 Kosovan One-step Perfect[employer]eh catheter. Side: RIGHT lower quadrant. Fluid Volume: 1250 ml Color: Clear yellow DISPOSITION: Discarded safely. Complications: None. Patient disposition: Discharged from the department in stable condition. US/US paracentesis abd w [id number] IMPRESSION: Uncomplicated ultrasound-guided paracentesis. Removal of 1250 cc
== END 2025-01-31 13:07 | disposition home or self-care (01) ==
LOC: GILAB 11:25
PROVIDERS: Radiology Neuroradiology; PCP Family Medicine
PROC: (CPT 49082; principal; 2025-01-31 12:30)
DX: K74.60 Unspecified cirrhosis of liver (principal); R18.8 Other ascites
CPT/HCPCS: 49083

== ENCOUNTER → 2025-02-05 13:09 | Outpatient (BNVA) | payer MEDICARE, MEDICAID, SELFPAY | PROVIDERS: PCP Family Medicine; Visit Provider Family Medicine | DX: E03.9 Hypothyroidism, unspecified (principal) | CPT/HCPCS: 84439; 84443 ==

== ENCOUNTER 2025-02-07 11:15 | Day surgery (SDC) | payer MEDICARE, MEDICAID, SELFPAY ==
[2025-02-07 11:30] VITALS: BP 111/64; PULSE 69; RESP 18; TEMP 36.9; O2SAT 96; BMI 17.9
--- NOTE | 2025-02-07 11:32 | US_ITS ---
WS: [email or web address] ULTRASOUND-GUIDED THERAPEUTIC PARACENTESIS Procedure, risks, and complications have been explained to the patient. Consent is obtained. Utilizing aseptic technique and 1% buffered lidocaine, a small dermatome was made through which a 5 Uzbek Yueh catheter was inserted. Approximately 2300 ml of clear peritoneal fluid was obtained without difficulty. No complications encountered. US/US paracentesis abd w [id number] IMPRESSION: Uncomplicated paracentesis yielding 2300 ml of peritoneal fluid.
== END 2025-02-07 13:40 | disposition home or self-care (01) ==
LOC: GILAB 11:16
PROVIDERS: Radiology Diagnostic Radiology; PCP Family Medicine
PROC: (CPT 49082; principal; 2025-02-07 12:30)
DX: R18.8 Other ascites (principal)
CPT/HCPCS: 49083

== ENCOUNTER → 2025-02-12 11:16 | Day surgery (SDC) | payer MEDICARE, MEDICAID, SELFPAY ==
--- NOTE | 2025-02-12 11:21 | US_ITS ---
WS: [email or web address] ULTRASOUND-GUIDED PARACENTESIS CLINICAL INFORMATION: cirrhosis of the liver COMPARISON: None. Procedure Informed consent: The risks, benefits, and alternatives of the procedure were discussed with the patient. Verbal and written consent was obtained. Timeout: A timeout was performed to confirm the correct patient, procedure, and site. Preparation: A suitable skin site was identified. The patient was prepped and draped in usual sterile fashion. Lidocaine 1% was used for local anesthesia. Catheter: 4 Albanian One-step [employer]seh catheter. Side: RIGHT lower quadrant. Fluid Volume: 1750 ml Color: Clear yellow DISPOSITION: Discarded safely. Complications: None. Patient disposition: Discharged from the department in stable condition. US/US paracentesis abd w [id number] IMPRESSION: Uncomplicated ultrasound-guided paracentesis. Removal of 1750 cc
[2025-02-12 12:05] VITALS: BP 130/75; PULSE 85; RESP 18; TEMP 36.3; O2SAT 98
== END ==
PROVIDERS: Radiology Neuroradiology; PCP Family Medicine
PROC: (CPT 49082; principal; 2025-02-12 13:00)
DX: K74.60 Unspecified cirrhosis of liver (principal)
CPT/HCPCS: 49083

== ENCOUNTER → 2025-02-19 11:28 | Day surgery (SDC) | payer MEDICARE, MEDICAID, SELFPAY ==
[2025-02-19 11:41] VITALS: BP 136/87; PULSE 85; RESP 16; TEMP 36.2; O2SAT 99
--- NOTE | 2025-02-19 11:43 | US_ITS ---
WS: [email or web address] ULTRASOUND-GUIDED THERAPEUTIC PARACENTESIS Procedure, risks, and complications have been explained to the patient. Consent is obtained. Utilizing aseptic technique and 1% buffered lidocaine, a small dermatome was made through which a 5 Afghan Yueh catheter was inserted. Approximately 1800 ml of clear peritoneal fluid was obtained without difficulty. No complications encountered. US/US paracentesis abd w [id number] IMPRESSION: Uncomplicated paracentesis yielding 1800 ml of peritoneal fluid.
[2025-02-19 11:44] VITALS: BMI 17.5
== END ==
PROVIDERS: Radiology Diagnostic Radiology; PCP Family Medicine
PROC: (CPT 49082; principal; 2025-02-19 13:00)
DX: K74.60 Unspecified cirrhosis of liver (principal); R18.8 Other ascites
CPT/HCPCS: 49083